=== PATIENT | female | born 1950 | race African-American/Black ===

== ENCOUNTER 2018-05-27 05:36 | Observation (INO) | payer OTHER ==
[2018-05-27] MEDS: KCL 20 MEQ/100 mL IVPB 20 MEQ/100 ML BAG IV SCH ×3 (02:00→23:50)
--- OUTSIDE RECORDS SUMMARY | 2018-05-27 05:38 | XMS REPORT | Clinical Summary ---
:1950 Author Organization [facility] Address [address] [place] [address] Phone Care Team Providers Name Role Phone Unavailable Primary Care Provider Unavailable Allergies Active Allergy Reactions Severity Noted Date Comments Codeine Nausea And Vomiting 05/03/2018 Morphine Nausea And Vomiting 05/03/2018 Naloxone Nausea And Vomiting 05/03/2018 Opium Nausea And Vomiting 05/03/2018 Current Medications Prescription Sig. Disp. Refills Start Date End Date Status aspirin 81 MG EC tablet Take 81 mg by Active mouth daily. atenolol (TENORMIN) 100 MG Take 100 mg by Active tablet mouth daily. chlorthalidone (HYGROTON) Take 25 mg by Active 25 MG tablet mouth daily. Active Problems Not on file Encounters Date Type Specialty Care Team Description 05/08/2018 Hospital Encounter Chandler Doshi Encounter for MD Emre screening colonoscopy for [id number] patient (Primary Dx) 05/08/2018 Orders Only General Internal Medicine 05/08/2018 Anesthesia Event César Myrick AA 05/08/2018 Procedure Pass 05/08/2018 Surgery Chandler Doshi COLONOSCOPY MD Emre after 05/26/2017 Social History Tobacco Use Types Packs/Day Years Used Date Never Smoker Smokeless Tobacco: Never Used Alcohol Use Drinks/Week oz/Week Comments Yes occasional Sex Assigned at Date Recorded Not on file Last Filed Vital Signs Vital Sign Reading Time Taken Blood Pressure 175/76 05/08/2018 10:01 AM CDT Pulse 47 05/08/2018 10:01 AM CDT Temperature 36.8 C (98.2 F) 05/08/2018 10:01 AM CDT Respiratory Rate 12 05/08/2018 10:01 AM CDT Oxygen Saturation 100% 05/08/2018 10:01 AM CDT Inhaled Oxygen Concentration - - Weight 105.7 kg (233 lb) 05/08/2018 7:55 AM CDT Height 162.6 cm (5' 4") 05/08/2018 7:55 AM CDT Body Mass Index 39.99 05/08/2018 7:55 AM CDT Plan of Treatment Not on file Procedures Procedure Name Priority Date/Time Associated Diagnosis Comments COLONOSCOPY 05/08/2018 8:30 AM CDT Colon cancer screening after 05/26/2017 Results EKG-SCANNED (05/09/2018 3:40 PM)REPORT OF PROCEDURE - ENDOSCOPY URL (2017 8:58 AM)CBC with platelet count + automated diff (05/08/2018 8:03 AM) Component Value Ref Range WBC 5.6 4.0 - 10.0 K/L RBC 4.22 4.00 - 5.00 M/L Hemoglobin 12.5 12.0 - 15.0 GM/DL Hematocrit 36.7 36.0 - 45.0 % MCV 87.0 82.0 - 99.0 fL MCH 29.6 27.0 - 33.0 pg MCHC 34.1 32.0 - 36.0 GM/DL RDW 15.0 (H) 10.3 - 14.2 % Platelets 196 150 - 430 K/CU MM MPV 8.2 6.5 - 10.5 fL nRBC 0 0 - 0 /100 WBC % Neutros 64 % % Lymphs 27 % % Monos 5 % % Eos 3 % % Baso 0 % # Neutros 3.60 1.80 - 8.00 K/L # Lymphs 1.50 1.48 - 4.50 K/L # Monos 0.30 0.00 - 1.30 K/L # Eos 0.20 0.00 - 0.50 K/L # Baso 0.00 0.00 - 0.20 K/L Specimen Performing Laboratory Blood - Arm, Right [facility] [address] [place] [address] CBC with platelet count + automated diff (05/08/2018 8:03 AM) Specimen Performing Laboratory Blood Narrative The following orders were created for panel order CBC with platelet count + automated diff. Procedure Abnormality Status --------- ------ CBC with platelet count ...[[id number]]AbnormalFinal result Please view results for these tests on the individual orders. Basic Metabolic Panel (05/08/2018 8:03 AM) Component Value Ref Range Sodium 137 135 - 148 meq/L Potassium 4.3Comment: Specimen moderately hemolyzed 3.6 - 5.5 meq/L Chloride 100 98 - 106 meq/L CO2 25 20 - 29 meq/L BUN 14 10 - 26 mg/dL Creatinine 0.84Comment: Specimen moderately hemolyzed 0.50 - 1.20 mg/dL Glucose 98 70 - 110 mg/dL Calcium 10.0 8.5 - 10.5 mg/dL EGFR 82Comment: ESTIMATED GFR IS NOT ACCURATE mL/min/1.73 sq m CREATININE CLEARANCE IN PREDICTING GLOMERULAR FILTRATION RATE. ESTIMATED GFR IS NOT APPLICABLE FOR DIALYSIS PATIENTS. Specimen Performing Laboratory Blood - Arm, Right [facility] [address] [facility] [place] [address] after 05/26/2017
--- OUTSIDE RECORDS SUMMARY | 2018-05-27 05:38 | XMS REPORT ---
:1950 Author Organization [facility] Address [address] [place] [address] Care Team Providers Name Role Phone REGINE CUELLAR Unavailable Unavailable Problems This patient has no known problems. Allergies, Adverse Reactions, Alerts This patient has no known allergies or adverse reactions. Medications This patient has no known medications. Results Test Description Test Time Test Comments Text Results Atomic Results Result Comments BASIC METABOLIC PANEL 2018-05-08 08:35:00 Test Item Value Reference Range Comments SODIUM (BEAKER) (test 137 meq/L 135-148 upmq=488) POTASSIUM (BEAKER) (test 4.3 meq/L 3.6-5.5 Specimen moderately uisr=555) hemolyzed CHLORIDE (BEAKER) (test 100 meq/L 98-106 bzcr=161) CO2 (BEAKER) (test jctf=983) 25 meq/L 20-29 BLOOD UREA NITROGEN (BEAKER) 14 mg/dL 10-26 (test qveh=352) CREATININE (BEAKER) (test 0.84 mg/dL 0.50-1.20 Specimen moderately sdzv=513) hemolyzed GLUCOSE RANDOM (BEAKER) 98 mg/dL 70-110 (test xjqs=558) CALCIUM (BEAKER) (test 10.0 mg/dL 8.5-10.5 prum=201) EGFR (BEAKER) (test 82 mL/min/1.73 sq m ESTIMATED GFR IS NOT ndby=2812) ACCURATE CREATININE CLEARANCE IN PREDICTING GLOMERULAR FILTRATION RATE. ESTIMATED GFR IS NOT APPLICABLE FOR DIALYSIS PATIENTS. CBC W/PLT COUNT & AUTO [id number] 08:10:00 Test Item Value Reference Range Comments WHITE BLOOD CELL COUNT (BEAKER) (test cyzc=794) 5.6 K/ L 4.0-10.0 RED BLOOD CELL COUNT (BEAKER) (test rsse=019) 4.22 M/ L 4.00-5.00 HEMOGLOBIN (BEAKER) (test wfuj=656) 12.5 GM/DL 12.0-15.0 HEMATOCRIT (BEAKER) (test gddg=446) 36.7 % 36.0-45.0 MEAN CORPUSCULAR VOLUME (BEAKER) (test jflx=401) 87.0 fL 82.0-99.0 MEAN CORPUSCULAR HEMOGLOBIN (BEAKER) (test 29.6 pg 27.0-33.0 vmgu=502) MEAN CORPUSCULAR HEMOGLOBIN CONC (BEAKER) (test 34.1 GM/DL 32.0-36.0 xcrm=003) RED CELL DISTRIBUTION WIDTH (BEAKER) (test 15.0 % 10.3-14.2 ueqk=783) PLATELET COUNT (BEAKER) (test tkza=551) 196 K/CU MM 150-430 MEAN PLATELET VOLUME (BEAKER) (test rygv=994) 8.2 fL 6.5-10.5 NUCLEATED RED BLOOD CELLS (BEAKER) (test 0 /100 WBC 0-0 pokq=000) NEUTROPHILS RELATIVE PERCENT (BEAKER) (test 64 % esog=363) LYMPHOCYTES RELATIVE PERCENT (BEAKER) (test 27 % fijo=309) MONOCYTES RELATIVE PERCENT (BEAKER) (test 5 % gqgl=408) EOSINOPHILS RELATIVE PERCENT (BEAKER) (test 3 % httg=528) BASOPHILS RELATIVE PERCENT (BEAKER) (test 0 % vlsz=997) NEUTROPHILS ABSOLUTE COUNT (BEAKER) (test 3.60 K/ L 1.80-8.00 srhw=903) LYMPHOCYTES ABSOLUTE COUNT (BEAKER) (test 1.50 K/ L 1.48-4.50 wllb=001) MONOCYTES ABSOLUTE COUNT (BEAKER) (test 0.30 K/ L 0.00-1.30 kona=226) EOSINOPHILS ABSOLUTE COUNT (BEAKER) (test 0.20 K/ L 0.00-0.50 prkt=503) BASOPHILS ABSOLUTE COUNT (BEAKER) (test 0.00 K/ L 0.00-0.20 isab=345)
[2018-05-27] MEDS ORDERED: FENTANYL CITR 100 MCG/2 ML ONE ×2 (06:41→10:14)
[2018-05-27] MEDS ORDERED: ONDANSETRON 4 MG/2 ML VIAL ONE ×2 (06:41→11:36)
[2018-05-27 06:42] LABS: Absolute Lymphocytes (CBC) 1.5 K/uL (0.7-4.9); Absolute Monocytes 0.4 K/uL (0.1-1.3); Absolute Neutrophil 5.9 K/uL (1.8-8.0); Basophils % 0.2 % (0-1.3); Eosinophils % 1.1 % (0-4.4); Hematocrit 35.4 % (36.0-45.0); Lymphocytes % 18.9 % (15.3-44.8); MCV 87.1 fL (80-100); MPV 8.2 fL (7.6-11.3); Monocytes % 4.5 % (3.3-12.3); RBC Red Blood Cell Count 4.07 M/uL (3.86-4.86)
[2018-05-27 06:47] LABS: Protime INR 1.01
[2018-05-27 07:10] LABS: Albumin 3.3 g/dL (3.4-5.0); Bilirubin Direct 0.1 mg/dL (0-0.2); Bilirubin Total 0.5 mg/dL (0.2-1.0); Protein, Total 7.8 g/dL (6.4-8.2)
[2018-05-27 07:13] LABS: Potassium 2.8 mmol/L (3.5-5.1)
[2018-05-27 07:24] LABS: CKMB Creatine Kinase MB < 1.0 ng/mL (0.3-3.6); Creatine Phosphokinase 41 U/L (26-192); Magnesium 1.7 mg/dL (1.8-2.4); NT PRO-BNP 112 pg/mL (<125); Troponin (Emerg Dept Use Only) < 0.02 ng/mL (0.0-0.045)
--- NOTE | 2018-05-27 07:40 | RAD REPORT ---
EXAM DESCRIPTION: CT - Abdomen Pelvis W Contrast - 05/27/2018 7:24 am CLINICAL HISTORY: EPIGASTRIC PAIN<Reason For Exam>EPIGASTRIC PAIN COMPARISON: Chest Single View dated 05/27/2018<Comparisons> TECHNIQUE: Biphasic, helical CT imaging of the abdomen and pelvis was performed following 100 ml non -ionic IV contrast. Oral contrast was given. All CT scans are performed using dose optimization technique as appropriate and may include automated exposure control or mA/KV adjustment according to patient size. FINDINGS: No focal mass or consolidation. Lung markings are mildly prominent and could be minimal ed nisha or infiltrate. There is cardiomegaly without pericardial thickening or effusion. The liver, spleen, and pancreas show no suspicious findings. Gallbladder and biliary tree are also wi thout suspicious finding. Gallstones can be occult on CT imaging. Symmetric renal function is seen with no hydronephrosis or suspicious renal mass. No pyelonephritis o r suspicious renal parenchymal process. Patient has bilateral renal cysts. Largest on the right measu res 4.4 cm. Largest on the left measures 3.1 cm. Urinary bladder is only partially filled. No bladder calculus. Duarte do not appear thickened or edematous. Numerous phleboliths are seen along the pelvic floor. Uterus is absent. Ovaries are absent or atrophic. No adnexal mass. No abnormal thickening or masslike density at the vaginal cuff. Food and fluid filled but do not dilate the stomach. No gastric wall thickening or mass. No dilated l arge or small bowel loops. No appendicitis findings. No free air, free fluid or inflammatory stranding. No mass or bulky lymphadenopathy. No omental thic kening. Small fat filled inguinal hernias are present. There is a small fat only umbilical hernia wit h the neck as wide as the maximum diameter of the hernia. No adrenal abnormality. No suspicious bony findings. IMPRESSION: Food and fluid filled the stomach but no gastric wall thickening or mass. No pancreatiti s or other acute upper abdominal finding to explain epigastric pain pattern. Gallbladder and biliary tree within normal limits. Gallstones can be occult on CT imaging. Additional nonacute findings detailed in the body of the report.
[2018-05-27] MEDS ORDERED: MAGNESIUM SULFATE 1 gm IVPB 1 GM/100 ML BAG IV ONE (07:43)
[2018-05-27] MEDS ORDERED: KCL 20 MEQ/100 mL IVPB 20 MEQ/100 ML BAG IV ONE ×2 (07:43→11:17)
[2018-05-27] MEDS ORDERED: NA CHLORIDE 0.9% 500 ML ONE (07:48)
--- NOTE | 2018-05-27 08:10 | RAD REPORT ---
EXAM DESCRIPTION: RAD - Chest Single View - 05/27/2018 6:54 am CLINICAL HISTORY: epigastric pain<Reason For Exam>epigastric pain COMPARISON: Abdomen Pelvis W Contrast dated 05/27/2018<Comparisons> TECHNIQUE: AP portable chest image was obtained 0648 hours . FINDINGS: Lung volumes are low. Large body habitus and portable technique accentuate lower lung fiel ds. No focal consolidation identifiable. Lung base assessment is limited but no focal infiltrate susp ected. Cardiomegaly is present without vascular engorgement. No significant failure or volume overloa d suspected. No pneumothorax or large pleural effusion. No gross bony abnormality seen. No acute aort ic findings suspected. IMPRESSION: Cardiomegaly without vascular engorgement. No significant failure or volume overload. Prominent markings in each lung base probably the affects of portable technique and large body habitu s. Significant infiltrate is doubtful.
[2018-05-27 08:56] LABS: Urine Blood NEGATIVE (NEG); Urine Glucose NEGATIVE (NEG); Urine Protein NEGATIVE (NEG)
[2018-05-27 08:58] LABS: Urine Bacteria NONE SEEN /HPF (<20); Urine Culture Reflex Order NOT NEEDED; Urine RBC <5 /HPF (NONE SEEN)
[2018-05-27] MEDS ORDERED: FAMOTIDINE 20 MG/2 ML VIAL IV ONE (09:27)
--- NOTE | 2018-05-27 09:36 | EDPHYS ---
Physician Documentation [facility] Name: Misa Claros Age: 67 yrs Sex: Female : 1950 Arrival Date: 05/27/2018 Time: 05:43 Bed 5 Private MD: Mateo Chavez V ED Physician Aram Landers HPI: 05/27 07:00 This 67 yrs old Black Female presents to ER via Wheelchair with complaints of Abdominal pm1 Pain. 07:00 The patient presents with abdominal pain in the epigastric area. Onset: The pm1 symptoms/episode began/occurred this morning. The symptoms do not radiate. Associated signs and symptoms: Pertinent positives: nausea, Pertinent negatives: chest pain, diarrhea, fever, shortness of breath, vomiting. The symptoms are described as achy, constant. Modifying factors: The symptoms are alleviated by nothing, the symptoms are aggravated by nothing. Severity of pain: in the emergency department the pain is actually worse. The patient has not experienced similar symptoms in the past. The patient has been recently seen by a physician: colonoscopy 1-2 weeks ago and told that she has bradycardia. Historical: - Allergies: 05:50 Codeine; cc3 05:50 Morphine; cc3 - Home Meds: 05:50 chlorthalidone 25 mg Oral tab 1 tab once daily [Active]; amlodipine 5 mg tab 1 tab once cc3 daily [Active]; atenolol 100 mg Oral tab 1 tab once daily [Active]; aspirin 81 mg tab Oral TbEC 1 tab once daily [Active]; - PMHx: 05:50 Hypertension; uterine cancer; diagnosed a year ago; cc3 - Immunization history:: Adult Immunizations not up to date. - Social history:: Smoking status: Patient/guardian denies using tobacco, never smoked. - Ebola Screening: : No symptoms or risks identified at this time. ROS: 07:00 Constitutional: Negative for fever, chills, and weight loss, Eyes: Negative for injury, pm1 pain, redness, and discharge, ENT: Negative for injury, pain, and discharge, Neck: Negative for injury, pain, and swelling, Cardiovascular: Negative for chest pain, palpitations, and edema, Respiratory: Negative for shortness of breath, cough, wheezing, and pleuritic chest pain. 07:00 Back: Negative for injury and pain, : Negative for injury, bleeding, discharge, and swelling, MS/Extremity: Negative for injury and deformity, Skin: Negative for injury, rash, and discoloration, Neuro: Negative for headache, weakness, numbness, tingling, and seizure. 07:00 Abdomen/GI: Positive for abdominal pain, nausea, of the epigastric area, Negative for vomiting, diarrhea. Exam: 07:00 Constitutional: This is a well developed, well nourished patient who is awake, alert, pm1 and in no acute distress. Head/Face: Normocephalic, atraumatic. Eyes: Pupils equal round and reactive to light, extra-ocular motions intact. Lids and lashes normal. Conjunctiva and sclera are non-icteric and not injected. Cornea within normal limits. Periorbital areas with no swelling, redness, or edema. ENT: Nares patent. No nasal discharge, no septal abnormalities noted. Tympanic membranes are normal and external auditory canals are clear. Oropharynx with no redness, swelling, or masses, exudates, or evidence of obstruction, uvula midline. Mucous membranes moist. Neck: Trachea midline, no thyromegaly or masses palpated, and no cervical lymphadenopathy. Supple, full range of motion without nuchal rigidity, or vertebral point tenderness. No Meningismus. 07:00 Respiratory: Lungs have equal breath sounds bilaterally, clear to auscultation and percussion. No rales, rhonchi or wheezes noted. No increased work of breathing, no retractions or nasal flaring. 07:00 Back: No spinal tenderness. No costovertebral tenderness. Full range of motion. Skin: Warm, dry with normal turgor. Normal color with no rashes, no lesions, and no evidence of cellulitis. MS/ Extremity: Pulses equal, no cyanosis. Neurovascular intact. Full, normal range of motion. 07:00 Chest/axilla: Inspection: normal, Palpation: is normal. 07:00 Cardiovascular: Rate: bradycardic, Rhythm: irregular, Pulses: no pulse deficits are appreciated, Heart sounds: normal, normal S1and S2, Edema: is not appreciated. 07:00 ECG was reviewed by the Attending Physician. bigeminy 07:00 Abdomen/GI: Inspection: abdomen appears normal, Bowel sounds: normal, Palpation: soft, moderate abdominal tenderness, in the epigastric area, mass, is not appreciated, rebound tenderness, is not appreciated. 07:00 Neuro: Orientation: is normal, Motor: is normal. Vital Signs: 05:56 BP 162 / 66; Pulse 47; Resp 16 S; Temp 96.9(TE); Pulse Ox 97% on R/A; Weight 106.59 kg; cc3 Height 5 ft. 4 in. (162.56 cm); Pain 10/10; 06:45 BP 130 / 66; Pulse 48; Resp 15 S; Pulse Ox 97% on R/A; cc3 07:06 BP 135 / 60; Pulse 40; Resp 19; Pulse Ox 96% ; sv 07:40 Pulse 74 MON; Resp 19; Pulse Ox 97% ; sv 08:23 BP 143 / 70; Pulse 48 MON; Resp 19; Pulse Ox 97% ; sv 09:19 BP 156 / 79; Pulse 61; Resp 18; Pulse Ox 96% on R/A; dh3 10:07 BP 163 / 69; Pulse 59; Resp 16; Pulse Ox 96% on R/A; sv 10:55 BP 144 / 74; Pulse 48 MON; Resp 14; Pulse Ox 96% ; sv 05:56 Body Mass Index 40.34 (106.59 kg, 162.56 cm) cc3 07:40 Normal Sinus Rhythm sv 08:23 Sinus bradycardia sv 10:55 Sinus bradycardia sv 07:40 Trigeminy sv MDM: 06:05 Patient medically screened. pm1 09:34 Data reviewed: vital signs. Data interpreted: Pulse oximetry: on room air is 96 %. pm1 Interpretation: normal. Counseling: I had a detailed discussion with the patient and/or guardian regarding: the historical points, exam findings, and any diagnostic results supporting the discharge/admit diagnosis, lab results, radiology results, the need for further work-up and treatment in the hospital. 10:19 Physician consultation: Mateo Chavez MD was contacted at 10:19, regarding admission, pm1 patient's condition, in the emergency department to see patient at 10:19. 10:27 Physician consultation: Mateo Chavez MD would like consultation with Dr. Lima, would pm1 like further tests performed, Repeat ECG, would like medications started, Antibiotics - Cipro \T\ Flagyl, Continue potassium replacement IV 50-60 mEq total. 11:12 Physician consultation: Jah Lima MD was called at 11:05, was contacted at 11:05, pm1 regarding consult, patient's condition, and will see patient later today, Would like cardiology consult and requests NPO now.. 11:44 ED course: Repeat ECG: sinus rhythm with first degree block, 60bpm. Resolution of PVCs, pm1 trigeminy with electrolyte replacement. 05/27 06:04 Order name: Amylase, Serum; Complete Time: 07:14 pm1 05/27 06:04 Order name: Basic Metabolic Panel; Complete Time: 07:14 pm1 05/27 06:04 Order name: CBC with Diff; Complete Time: 07:13 pm1 05/27 06:04 Order name: Creatinine for Radiology; Complete Time: 07:13 pm1 05/27 06:04 Order name: Hepatic Function; Complete Time: 07:14 pm1 05/27 06:04 Order name: Lipase; Complete Time: 07:14 pm1 05/27 06:04 Order name: Urine Microscopic Only; Complete Time: 09:03 pm1 05/27 06:20 Order name: Ckmb; Complete Time: 07:32 pm1 05/27 06:20 Order name: CPK; Complete Time: 07:32 pm1 05/27 06:20 Order name: Magnesium; Complete Time: 07:32 pm1 05/27 06:20 Order name: NT PRO-BNP; Complete Time: 07:32 pm1 05/27 06:20 Order name: PT-INR; Complete Time: 07:13 pm1 05/27 06:20 Order name: Ptt, Activated; Complete Time: 07:13 pm1 05/27 06:20 Order name: Troponin (emerg Dept Use Only); Complete Time: 07:32 pm1 05/27 06:20 Order name: XRAY Chest (1 view); Complete Time: 08:38 pm1 05/27 06:20 Order name: EKG; Complete Time: 06:21 pm1 05/27 06:22 Order name: CT Abd/Pelvis - W/Contrast: IV contrast only; Complete Time: 08:38 pm1 05/27 08:41 Order name: Urine Dipstick--Ancillary (enter results); Complete Time: 09:03 em1 05/27 09:05 Order name: US Abdomen Limited; Complete Time: 17:11 pm1 05/27 10:32 Order name: EKG; Complete Time: 10:33 pm1 05/27 06:04 Order name: IV Saline Lock; Complete Time: 06:32 pm1 05/27 06:04 Order name: Labs collected and sent; Complete Time: 06:32 pm1 05/27 06:04 Order name: Urine Dipstick-Ancillary (obtain specimen); Complete Time: 08:40 pm1 05/27 06:20 Order name: Cardiac monitoring; Complete Time: 06:41 pm1 05/27 06:20 Order name: EKG - Nurse/Tech; Complete Time: 06:41 pm1 05/27 06:20 Order name: O2 Per Protocol; Complete Time: 06:32 pm1 05/27 06:20 Order name: O2 Sat Monitoring; Complete Time: 06:32 pm1 05/27 11:44 Order name: EKG - Nurse/Tech; Complete Time: 11:46 pm1 Administered Medications: 06:35 Drug: fentaNYL (PF) 25 mcg Route: IVP; Site: right forearm; cc3 07:16 Follow up: Response: No adverse reaction sv 06:40 Drug: Zofran 4 mg Route: IVP; Site: right forearm; cc3 07:17 Follow up: Response: No adverse reaction sv 07:43 Drug: Magnesium Sulfate 1 grams Route: IVPB; Infused Over: 1 hrs; Site: right ss antecubital; 09:45 Follow up: Response: No adverse reaction; IV Status: Completed infusion; IV Intake: sv 100ml 08:51 Drug: Potassium Chloride 20 mEq Route: IV; Rate: calculated rate; Site: right forearm; sv 10:50 Follow up: Response: No adverse reaction; IV Status: Completed infusion; IV Intake: sv 100ml 09:29 Drug: Pepcid 20 mg Route: IVP; Site: right forearm; sv 10:07 Follow up: Response: No adverse reaction sv 10:12 Drug: fentaNYL (PF) 25 mcg Route: IVP; Site: right forearm; sv 10:30 Follow up: Response: No adverse reaction sv 11:18 Drug: Potassium Chloride 20 mEq Route: IV; Rate: calculated rate; Site: right forearm; sv 11:29 Follow up: Response: No adverse reaction; IV Status: Infusion continued upon admission sv 11:28 Drug: Flagyl 500 mg Volume: 100 ml; Route: IVPB; Rate: 200 ml/hr; Infused Over: 30 sv mins; Site: right forearm; 11:30 Follow up: Response: No adverse reaction; IV Status: Infusion continued upon admission sv 11:30 Not Given (given to Eli NICOLE on 2nd floor and informed she needs to give it after the sv Flagyl is done): Cipro 400 mg 200 ml IVPB once over 60 mins 11:40 Drug: Zofran 4 mg Route: IVP; Site: right forearm; sv 11:46 Follow up: Response: No adverse reaction sv Disposition: 05/27/18 09:35 Hospitalization ordered by Mateo Chavez for Observation. Preliminary diagnosis are Cholelithiasis, Bradycardia, unspecified, Other abnormalities of heart beat - trigeminy, Hypokalemia. - Bed requested for Telemetry/MedSurg (observation). - Status is Observation. sv - Condition is Stable. - Problem is new. - Symptoms have improved. UTI on Admission? No Signatures: Dispatcher [employer] EDMS Pat Jay RN RN sv Alvin Camargo em1 Gisella Rubio RN RN Kye Jane, [employer] pm1 Vielka Mitchell cc3 Corrections: (The following items were deleted from the chart) 10:22 09:35 Hospitalization Ordered by Mateo Chavez MD for Observation. Preliminary diagnosis pm1 is Bradycardia, unspecified; Epigastric pain. Bed requested for Telemetry/MedSurg (observation). Status is Observation. Condition is Stable. Problem is new. Symptoms have improved. UTI on Admission? No. pm1 10:28 10:22 05/27/2018 09:35 Hospitalization Ordered by Mateo Chavez MD for Observation. pm1 Preliminary diagnosis is Bradycardia, unspecified; Cholelithiasis; Other abnormalities of heart beat - trigeminy. Bed requested for Telemetry/MedSurg (observation). Status is Observation. Condition is Stable. Problem is new. Symptoms have improved. UTI on Admission? No. pm1 10:29 10:28 05/27/2018 09:35 Hospitalization Ordered by Mateo Chavez MD for Observation. pm1 Preliminary diagnosis is Bradycardia, unspecified; Cholelithiasis; Other abnormalities of heart beat - trigeminy; Hypokalemia. Bed requested for Telemetry/MedSurg (observation). Status is Observation. Condition is Stable. Problem is new. Symptoms have improved. UTI on Admission? No. pm1 10:55 10:29 05/27/2018 09:35 Hospitalization Ordered by Mateo Chavez MD for Observation. em1 Preliminary diagnosis is CholelithiasisBradycardia, unspecified; Other abnormalities of heart beat - trigeminy; Hypokalemia. Bed requested for Telemetry/MedSurg (observation). Status is Observation. Condition is Stable. Problem is new. Symptoms have improved. UTI on Admission? No. pm1 11:46 10:55 05/27/2018 09:35 Hospitalization Ordered by Mateo Chavez MD for Observation. sv Preliminary diagnosis is CholelithiasisBradycardia, unspecified; Other abnormalities of heart beat - trigeminy; Hypokalemia. Bed requested for Telemetry/MedSurg (observation). Status is Observation. Condition is Stable. Problem is new. Symptoms have improved. UTI on Admission? No. em1
--- NOTE | 2018-05-27 09:36 | ER ---
Nurse's Notes [facility] Name: Misa Claros Age: 67 yrs Sex: Female : 1950 Arrival Date: 05/27/2018 Time: 05:43 Bed 5 Private MD: Mateo Chavez V Diagnosis: Bradycardia, unspecified;Cholelithiasis;Other abnormalities of heart beat-trigeminy;Hypokalemia Presentation: 05/27 05:56 Presenting complaint: Patient states: abdominal pain particularly on the epigastric cc3 area since a couple of hours ago. Transition of care: patient was not received from another setting of care. Onset of symptoms was May 27, 2018. Risk Assessment: Do you want to hurt yourself or someone else? Patient reports no desire to harm self or others. Initial Sepsis Screen: Does the patient meet any 2 criteria? No. Patient's initial sepsis screen is negative. Does the patient have a suspected source of infection? No. Patient's initial sepsis screen is negative. Care prior to arrival: None. 05:56 Method Of Arrival: Wheelchair cc3 05:56 Acuity: VINOD 3 cc3 Triage Assessment: 05:56 General: Appears uncomfortable, Behavior is calm, cooperative, appropriate for age. cc3 Pain: Complains of pain in abdomen mostly in the epigastric area Pain currently is 10 out of 10 on a pain scale. EENT: No signs and/or symptoms were reported regarding the EENT system. Neuro: Level of Consciousness is awake, alert, obeys commands, Oriented to person, place, time, situation, Appropriate for age. Cardiovascular: Denies chest pain. Respiratory: Airway is patent Respiratory effort is even, unlabored, Respiratory pattern is regular, symmetrical. GI: Reports upper abdominal pain, since a couple of hours this morning. GI: Abdomen is round distended. : No signs and/or symptoms were reported regarding the genitourinary system. Derm: No signs and/or symptoms reported regarding the dermatologic system. Musculoskeletal: No signs and/or symptoms reported regarding the musculoskeletal system. Historical: - Allergies: 05:50 Codeine; cc3 05:50 Morphine; cc3 - Home Meds: 05:50 chlorthalidone 25 mg Oral tab 1 tab once daily [Active]; amlodipine 5 mg tab 1 tab once cc3 daily [Active]; atenolol 100 mg Oral tab 1 tab once daily [Active]; aspirin 81 mg tab Oral TbEC 1 tab once daily [Active]; - PMHx: 05:50 Hypertension; uterine cancer; diagnosed a year ago; cc3 - Immunization history:: Adult Immunizations not up to date. - Social history:: Smoking status: Patient/guardian denies using tobacco, never smoked. - Ebola Screening: : No symptoms or risks identified at this time. Screenin:56 Abuse screen: Denies threats or abuse. Denies injuries from another. Nutritional cc3 screening: No deficits noted. Tuberculosis screening: No symptoms or risk factors identified. Fall Risk Ambulatory Aid- None/Bed Rest/Nurse Assist (0 pts). Gait- Normal/Bed Rest/Wheelchair (0 pts) Mental Status- Oriented to own ability (0 pts). Assessment: 05:56 General: Appears uncomfortable, Behavior is calm, cooperative, appropriate for age. cc3 Pain: Complains of pain in upper abdomen particularly in the epigastric area Pain currently is 10 out of 10 on a pain scale. Neuro: Level of Consciousness is awake, alert, obeys commands, Oriented to person, place, time, situation, Appropriate for age. Cardiovascular: Denies chest pain. Respiratory: Airway is patent Respiratory effort is even, unlabored, Respiratory pattern is regular, symmetrical. GI: Reports upper abdominal pain, nausea, since couple of hours ago this morning. : No signs and/or symptoms were reported regarding the genitourinary system. EENT: No signs and/or symptoms were reported regarding the EENT system. Derm: No signs and/or symptoms reported regarding the dermatologic system. Musculoskeletal: No signs and/or symptoms reported regarding the musculoskeletal system. 06:50 Reassessment: Patient appears in no apparent distress at this time. Patient and/or cc3 family updated on plan of care and expected duration. Pain level reassessed. Patient is alert, oriented x 3, equal unlabored respirations, skin warm/dry/pink. chest xray done as ordered. 07:40 Reassessment: Patient appears in no apparent distress at this time. Patient and/or sv family updated on plan of care and expected duration. Pain level reassessed. Patient is alert, oriented x 3, equal unlabored respirations, skin warm/dry/pink. 08:52 Reassessment: Patient appears in no apparent distress at this time. Patient and/or sv family updated on plan of care and expected duration. Pain level reassessed. Patient is alert, oriented x 3, equal unlabored respirations, skin warm/dry/pink. 09:29 Reassessment: Patient appears in no apparent distress at this time. Patient and/or sv family updated on plan of care and expected duration. Pain level reassessed. Patient is alert, oriented x 3, equal unlabored respirations, skin warm/dry/pink. 09:50 Reassessment: US at the bedside. sv 10:19 Reassessment: Dr Chavez at the bedside. sv Vital Signs: 05:56 BP 162 / 66; Pulse 47; Resp 16 S; Temp 96.9(TE); Pulse Ox 97% on R/A; Weight 106.59 kg; cc3 Height 5 ft. 4 in. (162.56 cm); Pain 10/10; 06:45 BP 130 / 66; Pulse 48; Resp 15 S; Pulse Ox 97% on R/A; cc3 07:06 BP 135 / 60; Pulse 40; Resp 19; Pulse Ox 96% ; sv 07:40 Pulse 74 MON; Resp 19; Pulse Ox 97% ; sv 08:23 BP 143 / 70; Pulse 48 MON; Resp 19; Pulse Ox 97% ; sv 09:19 BP 156 / 79; Pulse 61; Resp 18; Pulse Ox 96% on R/A; dh3 10:07 BP 163 / 69; Pulse 59; Resp 16; Pulse Ox 96% on R/A; sv 10:55 BP 144 / 74; Pulse 48 MON; Resp 14; Pulse Ox 96% ; sv 05:56 Body Mass Index 40.34 (106.59 kg, 162.56 cm) cc3 07:40 Normal Sinus Rhythm sv 08:23 Sinus bradycardia sv 10:55 Sinus bradycardia sv 07:40 Trigeminy sv ED Course: 05:43 Patient arrived in ED. ds1 05:44 Mateo Chavez MD is Private Physician. ds1 05:56 Vielka Mitchell is Primary Nurse. cc3 05:56 Arm band placed on left wrist. cc3 05:56 Patient has correct armband on for positive identification. Bed in low position. Call cc3 light in reach. Side rails up X 1. Adult w/ patient. 06:01 Triage completed. cc3 06:04 Kye Jane NP is PHCP. pm1 06:04 Aram Landers MD is Attending Physician. pm1 06:25 Inserted saline lock: 22 gauge in right forearm, using aseptic technique. Blood cc3 collected. inserted by COREY Grimm. 06:52 XRAY Chest (1 view) In Process Unspecified. EDMS 06:59 Report given to COREY Stewart for continuity of care. cc3 07:03 Pat Jay RN is Primary Nurse. sv 07:[address] via stretcher. sv 07:22 CT completed. Patient tolerated procedure well. Patient moved to CT via stretcher. sj Patient moved back from CT. 07:23 CT Abd/Pelvis - W/Contrast: IV contrast only In Process Unspecified. EDMS 09:35 Mateo Chavez MD is Hospitalizing Provider. pm1 11:11 US Abdomen Limited In Process Unspecified. EDMS 11:11 Ultrasound completed. Patient tolerated well. Note: us done bedside in er. lc3 11:22 No provider procedures requiring assistance completed. Patient admitted, IV remains in sv place. intact. 11:45 EKG done, by ED staff, reviewed by Kye Jane NP. sv Administered Medications: 06:35 Drug: fentaNYL (PF) 25 mcg Route: IVP; Site: right forearm; cc3 07:16 Follow up: Response: No adverse reaction sv 06:40 Drug: Zofran 4 mg Route: IVP; Site: right forearm; cc3 07:17 Follow up: Response: No adverse reaction sv 07:43 Drug: Magnesium Sulfate 1 grams Route: IVPB; Infused Over: 1 hrs; Site: right ss antecubital; 09:45 Follow up: Response: No adverse reaction; IV Status: Completed infusion; IV Intake: sv 100ml 08:51 Drug: Potassium Chloride 20 mEq Route: IV; Rate: calculated rate; Site: right forearm; sv 10:50 Follow up: Response: No adverse reaction; IV Status: Completed infusion; IV Intake: sv 100ml 09:29 Drug: Pepcid 20 mg Route: IVP; Site: right forearm; sv 10:07 Follow up: Response: No adverse reaction sv 10:12 Drug: fentaNYL (PF) 25 mcg Route: IVP; Site: right forearm; sv 10:30 Follow up: Response: No adverse reaction sv 11:18 Drug: Potassium Chloride 20 mEq Route: IV; Rate: calculated rate; Site: right forearm; sv 11:29 Follow up: Response: No adverse reaction; IV Status: Infusion continued upon admission sv 11:28 Drug: Flagyl 500 mg Volume: 100 ml; Route: IVPB; Rate: 200 ml/hr; Infused Over: 30 sv mins; Site: right forearm; 11:30 Follow up: Response: No adverse reaction; IV Status: Infusion continued upon admission sv 11:30 Not Given (given to Eli NICOLE on 2nd floor and informed she needs to give it after the sv Flagyl is done): Cipro 400 mg 200 ml IVPB once over 60 mins 11:40 Drug: Zofran 4 mg Route: IVP; Site: right forearm; sv 11:46 Follow up: Response: No adverse reaction sv Intake: 09:45 IV: 100ml; Total: 100ml. sv 10:50 IV: 100ml; Total: 200ml. sv Output: 11:35 Gastric: 550ml (Emesis); Total: 550ml. sv Outcome: 09:35 Decision to Hospitalize by Provider. pm1 11:22 Admitted to Tele accompanied by tech, family with patient, via wheelchair, room 211, sv with chart, Report called to Eli NICOLE 11:22 Condition: stable 11:22 Instructed on the need for admit. 11:46 Patient left the ED. sv Signatures: Dispatcher [employer] Pat Bui RN RN sv Jones, Susan sj Sanford, Demi ds1 Gisella Rubio RN RN ss Cunningham, Laulita lc3 Marinas, Patrick, HISTOLOGY ASSISTANT HISTOLOGY ASSISTANT pm1 Katie Ridley 3 Vielka Mitchell 3
[2018-05-27] MEDS ORDERED: METRONIDAZOLE 500mg IVPB 500 MG/100 ML BAG IV ONE (11:29)
[2018-05-27] MEDS ORDERED: CIPROFLOXACIN 400mg IV 400 MG/200 ML BAG IV ONE (11:29)
--- NOTE | 2018-05-27 11:53 | RAD REPORT ---
EXAM DESCRIPTION: US - Abdomen Exam Limited - 05/27/2018 11:12 am CLINICAL HISTORY: EPIGASTRIC PAIN<Reason For Exam>EPIGASTRIC PAIN COMPARISON: Abdomen Pelvis W Contrast dated 05/27/2018 FINDINGS: Gallbladder size is normal. Multiple gallstones are present. No wall thickening or pericholecystic fl uid. Common bile duct is normal with no common duct stone identified. Patient indicates significant p ain with transducer pressure over the gallbladder. IMPRESSION: Multi stone cholelithiasis. No wall thickening or pericholecystic fluid. No biliary tree dilatation.
[2018-05-27 12:42] VITALS: BMI 40.3
[2018-05-27] MEDS ORDERED: FENTANYL CITR 100 MCG/2 ML IV PRN (12:43)
[2018-05-27] MEDS ORDERED: ONDANSETRON 4 MG/2 ML VIAL IV PRN (12:43)
[2018-05-27] MEDS ORDERED: KCL 20 MEQ/100 mL IVPB 20 MEQ/100 ML BAG IV SCH (12:43)
[2018-05-27] MEDS ORDERED: ACETAMINOPHEN 500 MG TAB PO PRN (12:43)
[2018-05-27] MEDS ORDERED: PNEUMOCOCCAL VACCINE 0.5 ML IMVAC ONE (16:00)
[2018-05-27 16:49] LABS: Magnesium 2.3 mg/dL (1.8-2.4); Potassium 3.2 mmol/L (3.5-5.1)
--- NOTE | 2018-05-27 17:39 | P.HP ---
Certification for Inpatient Patient admitted to: Inpatient With expected LOS: >2 Midnights Practitioner: I am a practitioner with admitting privileges, knowledge of patient current condition, hospital course, and medical plan of care. Services: Services provided to patient in accordance with Admission requirements found in Title 42 Section 412.3 of the Code of Federal Regulations Patient History Date of Service: 05/27/18 Reason for admission: ABDOMEN PAIN History of Present Illness: MS. SPARKS HAS HTN AND HISTORY OF UTERINE CANCER SP SURGERY AT [facility], COMES WITH A FEW HOURS OF PAIN IN EPIG REGION. PAIN IS LOCALIZED AND DOES NOT RADIATE. SHE HAD NO DIAPHORESIS OR CHEST PAIN. SHE IN ER HAD TRIGEMINY FROM HYPOKALEMIA AND HYPOMAGNESEMIA. SHE IS STABLE. Allergies codeine [Codeine] Allergy (Intermediate, Verified 05/27/18 12:45) VOMITING Home Medications: Aspirin [Aspirin EC 81 MG] 81 mg PO DAILY 10/20/16 Atenolol [Tenormin] 100 mg PO DAILY 10/20/16 Chlorthalidone [Hygroton 25mg Tab] 25 mg PO DAILY 10/20/16 Amlodipine Besylate [Norvasc] 5 mg PO DAILY 05/27/18 - Past Medical/Surgical History Has patient received pneumonia vaccine in the past: No Diabetic: No -: uterine cancer -: htn -: hysterectomy -: c section - Family History Mother -: Other (see notes) Notes: heart attack Father -: Other (see notes) Notes: heart attack - Social History Smoking Status: Never smoker Alcohol use: Yes CD- Drugs: No Caffeine use: Yes Place of Residence: Home Review of Systems 10-point ROS is otherwise unremarkable General: Weakness Gastrointestinal: Abdominal Pain (EPIG) Physical Examination - Vital Signs Temperature: 96.9 F Blood Pressure: 193/81 Pulse: 82 Respirations: 16 Pulse Ox (%): 97 - Physical Exam General: Alert, Mild distress HEENT: Atraumatic, PERRLA, Mucous membr. moist/pink, EOMI, Sclerae nonicteric Neck: Supple, 2+ carotid pulse no bruit, No LAD, Without JVD or thyroid abnormality Respiratory: Clear to auscultation bilaterally, Normal air movement Cardiovascular: Regular rate/rhythm, Normal S1 S2 Gastrointestinal: No rebound, Tenderness (EPIG AND RUQ TENDER. ) Musculoskeletal: No tenderness Integumentary: No rashes Neurological: Normal gait, Normal speech, Normal strength at 5/5 x4 extr, Normal tone, Normal affect Lymphatics: No axilla or inguinal lymphadenopathy - Studies Laboratory Data (last 24 hrs) 05/27/18 06:25: PT 11.9, INR 1.01, APTT 32.1 05/27/18 06:25: Magnesium 1.7 L 05/27/18 06:25: Creatinine 0.90 05/27/18 06:25: WBC 7.8, Hgb 12.2, Hct 35.4 L, Plt Count 179 05/27/18 06:25: Sodium 136, Potassium 2.8 L*, BUN 25 H, Creatinine 0.90, Glucose 152 H, Total Bilirubin 0.5, AST 12 L, ALT 12, Alkaline Phosphatase 53, Amylase 59, Lipase 61 L Assessment and Plan - Problems (Diagnosis) (1) Acute cholecystitis Current Visit: Yes Status: Acute Plan: CONSULTED IV ABX SURGERY IN AM POSSIBLE MEDICALLY CLEARED WITH MILD RISK EKG CHANGES ARE FROM ELECTROLYTE IMBALANCE HER K AND MG ARE LOW FROM CHLORTHALIDONE. SHE WILL NEED SPIRONOLACTONE INSTEAD I AM NOT SURE WHO GIVES HER THESE MEDS. SHE HAS NOT BEEN TO MY OFFICE SINCE END OF LAST YEAR. (2) Hypokalemia Current Visit: Yes Status: Acute Plan: REPLACE K ABOVE. (3) Hypomagnesemia Current Visit: Yes Status: Acute Plan: REPLACE MAG AND FU. (4) Ventricular trigeminy Current Visit: Yes Status: Acute (5) HTN (hypertension) Current Visit: Yes Status: Chronic Plan: WILL NEED STOP CHLORTHALIDONE ABOVE. Qualifiers: Hypertension type: essential hypertension Qualified Code(s): I10 - Essential (primary) hypertension - Advance Directives Does patient have a Living Will: No Does patient have a Durable POA for Healthcare: No
[2018-05-27] MEDS: CIPROFLOXACIN 400mg IV 400 MG/200 ML BAG IV SCH (18:03)
--- NOTE | 2018-05-27 18:10 | P.CNS ---
Date of Consult: 05/27/18 PC: I was asked to see this 67-year-old female in regards her right upper quadrant abdominal pain HPC: Patient woke up early this morning, and was having severe upper abdominal pain. Describes it as a cramping type sensation. Try to take over the counter medications make got no relief. Says she felt weak, so she came to the emergency room for evaluation treatment. PMH: Hypertension, no diabetes PSHx: Previous cancer of the uterus, treated with hysterectomy and postoperative chemo with 1 month of radiation SOC: Allergic to codeine SYS REVIEW: No cough, wheeze, shortness of breath. No chest pain or palpitations. No urinary complaints. Has been having regular bowel movements. O/E awake alert vital signs are stable, not in any distress at the moment. HEENT: Not jaundiced Chest: Chest movement equal bilateral ABD: Soft nontender no guarding rebound negative Hartley sign LOCO: Intact DATA: Initially when had hypokalemia, and low magnesium, repeat labs showed is almost back to normal. No evidence of any white cell count. CT scan was essentially normal apart from some renal cysts, and ultrasound is demonstrates stones with no surrounding fluid in the gallbladder. She does not have any ascites or any evidence of any bowel obstruction. IMPRESSION: Cholecystitis with biliary colic PLAN: The patient was admitted for stabilization of her electrolytes. Also for pain relief from biliary colic, which has resolved. She will ever labs checked in a.m.. I will give her clear liquids, but make her NPO at midnight. Dr. Chavez will be reviewing her in the morning. If she is asymptomatic, she might be discharged home and have surgery scheduled later as an elective procedure. She is happy with this decision as is her family.
[2018-05-27] MEDS: METRONIDAZOLE 500mg IVPB 500 MG/100 ML BAG IV SCH ×2 (18:13→23:33)
[2018-05-28] MEDS: KCL 20 MEQ/100 mL IVPB 20 MEQ/100 ML BAG IV SCH ×3 (01:39→09:00)
[2018-05-28] MEDS: METRONIDAZOLE 500mg IVPB 500 MG/100 ML BAG IV SCH ×3 (05:00→17:59)
[2018-05-28 05:09] LABS: Absolute Monocytes 0.2 K/uL (0.1-1.3); Basophils % 0.3 % (0-1.3); Eosinophils % 2.6 % (0-4.4); Hematocrit 36.7 % (36.0-45.0); Lymphocytes % 29.2 % (15.3-44.8); MCH 29.9 pg (27.0-35.0); MCV 87.9 fL (80-100); MPV 8.4 fL (7.6-11.3); Monocytes % 7.2 % (3.3-12.3); RBC Red Blood Cell Count 4.18 M/uL (3.86-4.86)
[2018-05-28 05:57] LABS: Albumin 3.5 g/dL (3.4-5.0); Bilirubin Direct 1.6 mg/dL (0-0.2); Bilirubin Total 2.5 mg/dL (0.2-1.0); Magnesium 2.1 mg/dL (1.8-2.4); Potassium 3.3 mmol/L (3.5-5.1); Protein, Total 8.3 g/dL (6.4-8.2)
--- NOTE | 2018-05-28 07:10 | EKG ---
Test Date: 2018-05-27 Test Time: 06:38:39 Community Engagement Leader: TATOG MEASUREMENT RESULTS: Intervals: Rate: 61 NC: 178 QRSD: 98 QT: 442 QTc: 444 [place]: P: NC: 178 QRS: 12 T: -47 INTERPRETIVE STATEMENTS: Sinus bradycardia with marked sinus arrhythmia with occasional premature ventricular complexes Inferior infarct, age undetermined Cannot rule out Anterior infarct, age undetermined T wave abnormality, consider lateral ischemia Abnormal ECG Compared to ECG 10/20/2016 12:00:14 Ventricular premature complex(es) now present T-wave abnormality now present Possible ischemia now present Myocardial infarct finding still present Electronically Signed On 05-28-18 07:09:29 CDT by David Dobson
--- NOTE | 2018-05-28 07:45 | EKG ---
Test Date: 2018-05-27 Test Time: 11:36:56 Dry Kiln Feeder: MEASUREMENT RESULTS: Intervals: Rate: 60 OH: 222 QRSD: 100 QT: 416 QTc: 416 [place]: P: 7 OH: 222 QRS: 3 T: -16 INTERPRETIVE STATEMENTS: Sinus rhythm with 1st degree AV block Possible Inferior infarct, age undetermined Cannot rule out Anterior infarct, age undetermined Abnormal ECG Compared to ECG 05/27/2018 06:38:39 First degree AV block now present Sinus bradycardia no longer present Ventricular premature complex(es) no longer present Electronically Signed On 05-28-18 07:44:39 CDT by Houston Harper
[2018-05-28] MEDS: CIPROFLOXACIN 400mg IV 400 MG/200 ML BAG IV SCH ×2 (08:35→21:14)
[2018-05-28] MEDS: AMLODIPINE 5 MG TAB PO SCH (08:35)
[2018-05-28] MEDS ORDERED: ATENOLOL 50 MG TAB PO SCH (09:00)
[2018-05-28] MEDS ORDERED: NA CHLORIDE 0.9% 0 ML ONE (11:19)
[2018-05-28] MEDS ORDERED: NA CHLORIDE 0.9% 1,000 ML ONE (11:20)
--- NOTE | 2018-05-28 12:51 | ECHO ---
HEIGHT: 5 ft 4 in WEIGHT: 235 lb 0 oz DATE OF STUDY: 05/28/[address]: David Dobson MD 2-DIMENSIONAL: YES M.MODE: YES DOPPLER: YES COLOR FLOW: YES TDS: NO PORTABLE: NO DEFINITY: NO BUBBLE STUDY: NO DIAGNOSIS: TRIGEMINY/BRADYCARDIA CARDIAC HISTORY: CATHERIZATION: NO SURGERY: NO PROSTHETIC VALVE: NO PACEMAKER: NO MEASUREMENTS (cm) DIASTOLIC (NORMALS) SYSTOLIC (NORMALS) IVSd 1.2 (0.6-1.2) LA Diam 3.7 (1.9-4.0) LVEF 77% LVIDd 4.6 (3.5-5.7) LVIDs 2.5 (2.0-3.5) %FS 46% LVPWd 1.3 (0.6-1.2) Ao Diam 2.6 (2.0-3.7) 2 DIMENSIONAL ASSESSMENT: RIGHT ATRIUM: NORMAL LEFT ATRIUM: NORMAL RIGHT VENTRICLE: NORMAL LEFT VENTRICLE: NORMAL TRICUSPID VALVE: NORMAL MITRAL VALVE: NORMAL PULMONIC VALVE: NORMAL AORTIC VALVE: NORMAL PERICARDIAL EFFUSION: NONE AORTIC ROOT: NORMAL LEFT VENTRICULAR WALL MOTION: NORMAL. DOPPLER/COLOR FLOW: MILD TRICUSPID REGURGITATION. COMMENTS: MILD TRICUSPID REGURGITATION- NORMAL RIGHT VENTRICULAR SYSTOLIC PRESSURE. NO WALL MOTION ABNORMALITY. NO EFFUSION. NORMAL LEFT VENTRICULAR SIZE AND FUNCTION. TECHNOLOGIST: HERSON BAINS [facility]
--- NOTE | 2018-05-28 12:56 | P.PN ---
Subjective Date of Service: 05/28/18 Chief Complaint: ABDOMEN PAIN Subjective: Improving (ONLY WHEN SHE DRINKS WATER.) Review of Systems 10-point ROS is otherwise unremarkable Physical Examination - Vital Signs Temperature: 97.0 F Blood Pressure: 167/67 Pulse: 82 Respirations: 18 Pulse Ox (%): 96 - Physical Exam General: Alert, Mild distress, Obese HEENT: Atraumatic, PERRLA, EOMI Neck: Supple, JVD not distended Respiratory: Clear to auscultation bilaterally, Normal air movement Cardiovascular: Regular rate/rhythm, Normal S1 S2 Gastrointestinal: Tenderness (RUQ AND EPIG.) Musculoskeletal: No tenderness Integumentary: No rashes Neurological: Normal speech, Normal tone, Normal affect Lymphatics: No axilla or inguinal lymphadenopathy - Studies Medications List Reviewed: Yes Assessment And Plan - Current Problems (Diagnosis) (1) Acute cholecystitis Current Visit: Yes Status: Acute Plan: CONSULTED IV ABX SURGERY IN AM POSSIBLE MEDICALLY CLEARED WITH MILD RISK EKG CHANGES ARE FROM ELECTROLYTE IMBALANCE HER K AND MG ARE LOW FROM CHLORTHALIDONE. SHE WILL NEED SPIRONOLACTONE INSTEAD I AM NOT SURE WHO GIVES HER THESE MEDS. SHE HAS NOT BEEN TO MY OFFICE SINCE END OF LAST YEAR. WE DON'T HAVE LOCAL GI DOCTOR. DR. MALLOY IS GOING TO DO SURGERY, DO CHOLANGIOGRAM SHE IS NOT MUCH IN DISTRESS AND LATER DO MRCP IF NEED. HE WILL GET GI MD IN [place] IF NEED. I CALLED HIM TODAY. (2) Hypokalemia Current Visit: Yes Status: Acute Plan: REPLACE K ABOVE. (3) Hypomagnesemia Current Visit: Yes Status: Acute Plan: REPLACE MAG AND FU. (4) Ventricular trigeminy Current Visit: Yes Status: Acute (5) HTN (hypertension) Current Visit: Yes Status: Chronic Plan: WILL NEED STOP CHLORTHALIDONE ABOVE. Qualifiers: Hypertension type: essential hypertension Qualified Code(s): I10 - Essential (primary) hypertension
[2018-05-28] MEDS: MEPERIDINE HCL 50 MG/ML AMP ONE ×2 (13:14→15:19)
[2018-05-28] MEDS ORDERED: PROPOFOL 200 MG/20 ML VIAL IV ONE (13:29)
[2018-05-28] MEDS ORDERED: FENTANYL CITR 100 MCG/2 ML ONE (13:30)
[2018-05-28] MEDS ORDERED: MIDAZOLAM HCL 2 MG/2 ML INJ ONE (13:30)
[2018-05-28] MEDS ORDERED: ONDANSETRON HCL 40 MG/20 ML VIAL ONE (13:30)
[2018-05-28] MEDS ORDERED: Ringers Lactate 1,000 ML IV ONE (13:33)
[2018-05-28] MEDS ORDERED: GLYCOPYRROLATE 0.2 MG/ML SYR ONE ×2 (14:11→14:48)
--- NOTE | 2018-05-28 14:28 | CON ---
Date of Consultation: 05/28/[address] Chavez's service on 05/27/2018. I saw the patient on 05/28/2018. Reason For Consultation: Cardiac clearance, bradycardia, and trigeminy. History Of Present Illness: Ms. Claros is a 67-year-old black woman who has a history of hypertensi on, urinary cancer. Was admitted with abdominal pain, right-sided. Was found to have cholelithiasis . Dr. Lima saw the patient and recommended outpatient surgery. She has no cardiac history. In J anuary of 2017, an EKG showed a heart rate of 50 with some PVCs. She was hypokalemic this time, kev ycardic with trigeminy. No symptoms. No chest pain. No shortness of breath. No nausea, vomiting, diaphoresis, PND, orthopnea, pedal edema. No syncope. She has ruled out for an HI. Her potassium w as 3.2. Glucose was high. Ultrasound of the gallbladder showed gallstones. CT of the abdomen was o therwise negative. She was slightly hypertensive now, but she had a pressure of 193/81. Past Medical History: As stated earlier. Allergies: INCLUDE CODEINE AND MORPHINE. Review of Systems: Negative. Social History: Negative. Family History: Negative. Medications: Include aspirin, chlorthalidone, Norvasc, and atenolol. Physical Examination: General: She is in no acute distress. Vital Signs: Noted. Slightly hypertensive. Sinus rolando noted. No arrhythmias now. HEENT: Negative. Neck: Supple with no bruit. Chest: Clear. Cardiac Exam: Revealed a regular rhythm and rate without any murmurs, gallops, or rubs. Abdomen: Benign. Extremities: Revealed no clubbing, cyanosis, or edema. Diagnostic Data: As stated earlier. Impression And Plan: Chronic bradycardia with PVCs. I think the PVCs may be related to hypokalemia. The bradycardia may be chronic and asymptomatic. Her blood pressure needs to be better controlled. Her potassium needs to be supplemented. I think we need to get a 2D echocardiogram to rule out any cardiomyopathy. I think if her echocardiogram is normal, she should be cleared for surgery for her gallstones whenever Dr. Lima is ready. I will discuss the case further with Dr. Chavez after the e chocardiogram is done. Her chest x-ray just showed cardiomegaly. DALTON/UNA Voice ID: [id number] Report ID: [id number]
[2018-05-28] MEDS ORDERED: NEOSTIGMINE 1 MG/ML -5 ML SYRINGE ONE (14:49)
--- NOTE | 2018-05-28 14:55 | P.PN ---
Date of Service: 05/28/18 S: Patient feels well today, still says he has mild abdominal pain. O: Vital signs remain stable, however has slight elevation of her LFTs today. A: Cholecystitis with cholelithiasis, possible choledocholithiasis P: I will take her to the operating room for laparoscopic cholecystectomy with intraoperative cholangiogram. The risks of this procedure have been discussed with the patient her family. There is a possibly the mobility that we may find a stone in her common bile duct. Should this occur we may have to transfer her to and other facility for an ERCP as we do not have GI available at this time. I believe that she is artery passed a stone, and this is a transient elevation of the enzymes. The risks of this procedure have been discussed. The possibility of bleeding, infection, injury to bile ducts blood vessels and intestines. The possible need for an open and/or further surgeries and procedures was discussed. She understands and wants us to proceed.
--- NOTE | 2018-05-28 14:59 | P.OP ---
Preoperative diagnosis: Cholecystitis with cholelithiasis, possible choledocholithiasis Postoperative diagnosis: Cholecystitis with cholelithiasis Primary procedure: Laparoscopic cholecystectomy Secondary procedure: Cholangiogram Anesthesia: General Estimated blood loss: Less than 10 cc Specimen: 1 gallbladder and contents Findings: Inflamed gallbladder Operative Technique: The patient brought the operating room placed supine on the table. After the induction of adequate general endotracheal anesthesia, the area of the abdomen was prepped with a DuraPrep solution, she was draped in usual aseptic manner. A subumbilical incision was made. This brought down through the skin and subcutaneous tissue. The Visiport was then used to enter the peritoneal cavity and created pneumoperitoneum to approximately 12 mm of mercury. Under direct vision a 5 mm trocar was placed in the upper midline, and 2 5s on the right lateral side. With the patient placed in reverse Trendelenburg and rolled to the left we could visualize right upper quadrant. We could see an acutely inflamed gallbladder with speckling on the serosa. There were serosal adhesions. The gallbladder was grasped as contents aspirated from the gallbladder. The omental adhesions were now taken off the serosal surface of the gallbladder. Another grasper was now placed down by Kalpana's pouch. Applying lateral traction we were able to expose the cystic duct and artery. Having obtained the critical view, a clip was placed over the vasculature. This was then divided with electro cautery. A clip was placed between the gallbladder and the cystic duct. An opening is made into the cystic duct through which we obtained a normal intraoperative cholangiogram. The cholangiocatheter was now removed from the cystic duct. Clips were placed on the distal portion of the cystic duct to secure it. The cystic duct was now fully transected. The gallbladder was now dissected free from the liver bed. It was interesting to note the med of edema that was surrounding particular the posterior surface of the gallbladder. This pus was now placed into an Endo- Catch and brought out through the umbilical trocar site. At this point the abdomen was inspected to ensure adequate hemostasis. The irrigating fluid was aspirated from the peritoneal cavity. Attention was then back towards the umbilical trocar site. This was approximated with a Endo Stitch and an absorbable suture. At this point the pneumoperitoneum was collapsed, this suture tied, and the trocars removed. At the end of procedure she was stable when sent to the recovery room. Needle sponge instrument count were correct. No drains were placed. Complications: None Transferred to: Recovery Room Condition: Good
[2018-05-28] MEDS ORDERED: HYDROCODONE/APAP 7.5/325 MG TAB PO PRN (15:07)
[2018-05-28] MEDS ORDERED: ONDANSETRON 4 MG/2 ML VIAL IV PRN (15:07)
--- NOTE | 2018-05-28 15:59 | RAD REPORT ---
EXAM DESCRIPTION: RAD - Cholangiogram Oper-Xray Or - 05/28/2018 3:42 pm FINDINGS: There were 6 static images submitted from fluoroscopic assisted intraoperative cholangiogr am. No duct stone identified. No suspicious stricture or mass identifiable. Contrast flows into the d uodenum. Small remnant cystic duct is identified. Fluoro time was 0.6 minutes. Cumulative dose 29.0 mGy.
[2018-05-28] MEDS ORDERED: KCL 20 MEQ/100 mL IVPB 20 MEQ/100 ML BAG IV SCH (17:28)
[2018-05-28 19:20] LABS: Magnesium 2.1 mg/dL (1.8-2.4); Potassium 3.6 mmol/L (3.5-5.1)
[2018-05-28] MEDS ORDERED: DIGOXIN 0.25 MG/ML AMP IV ONE (21:00)
[2018-05-28] MEDS: IRBESARTAN 150 MG TAB PO SCH (21:15)
[2018-05-29] MEDS: METRONIDAZOLE 500mg IVPB 500 MG/100 ML BAG IV SCH ×5 (00:51→23:37)
[2018-05-29] MEDS ORDERED: DIGOXIN 0.25 MG/ML AMP IV ONE (03:00)
[2018-05-29 05:37] LABS: Potassium 3.5 mmol/L (3.5-5.1)
[2018-05-29] MEDS: AMLODIPINE 5 MG TAB PO SCH (09:07)
[2018-05-29] MEDS: CIPROFLOXACIN 400mg IV 400 MG/200 ML BAG IV SCH ×2 (09:08→20:45)
--- NOTE | 2018-05-29 18:37 | P.PN ---
Subjective Date of Service: 05/29/18 Chief Complaint: ABDOMEN PAIN, HEART , A FIB NEW ONSET, BRADYCARDIA WITH B BLOCKERS Subjective: Improving (POST OP) Review of Systems 10-point ROS is otherwise unremarkable Gastrointestinal: Abdominal Pain (POST OP) Physical Examination - Vital Signs Temperature: 97.4 F Blood Pressure: 119/59 Pulse: 49 Respirations: 18 Pulse Ox (%): 97 - Physical Exam General: Mild distress HEENT: Atraumatic, PERRLA, EOMI Neck: Supple, JVD not distended Respiratory: Clear to auscultation bilaterally, Normal air movement Cardiovascular: Regular rate/rhythm, Normal S1 S2 Gastrointestinal: Tenderness (POST OP) Musculoskeletal: No tenderness Integumentary: No rashes Neurological: Normal speech, Normal tone, Normal affect Lymphatics: No axilla or inguinal lymphadenopathy - Studies Medications List Reviewed: Yes Assessment And Plan - Current Problems (Diagnosis) (1) Acute cholecystitis Onset Date: 05/28/18 Current Visit: Yes Status: Acute Plan: CONSULTED IV ABX SURGERY IN AM POSSIBLE MEDICALLY CLEARED WITH MILD RISK EKG CHANGES ARE FROM ELECTROLYTE IMBALANCE HER K AND MG ARE LOW FROM CHLORTHALIDONE. SHE WILL NEED SPIRONOLACTONE INSTEAD I AM NOT SURE WHO GIVES HER THESE MEDS. SHE HAS NOT BEEN TO MY OFFICE SINCE END OF LAST YEAR. WE DON'T HAVE LOCAL GI DOCTOR. DR. MALLOY IS GOING TO DO SURGERY, DO CHOLANGIOGRAM SHE IS NOT MUCH IN DISTRESS AND LATER DO MRCP IF NEED. HE WILL GET GI MD IN [place] IF NEED. I CALLED HIM TODAY. (2) Hypokalemia Onset Date: 05/28/18 Current Visit: Yes Status: Acute Plan: REPLACE K ABOVE. (3) Hypomagnesemia Onset Date: 05/28/18 Current Visit: Yes Status: Acute Plan: REPLACE MAG AND FU. (4) Ventricular trigeminy Onset Date: 05/28/18 Current Visit: Yes Status: Acute (5) HTN (hypertension) Onset Date: 05/28/18 Current Visit: Yes Status: Chronic Plan: WILL NEED STOP CHLORTHALIDONE ABOVE. Qualifiers: Hypertension type: essential hypertension Qualified Code(s): I10 - Essential (primary) hypertension (6) A-fib Current Visit: Yes Status: Acute Plan: NEW PATIENT IS HYPERSENSITVE TO B MOR SHE HAD HR DOWN TO 30 ON ATENOLOL NOW ON DIGOXIN BY DR HUI WILL START ON XARELTO IF SHE CONTINUES TO HAVE A FIB. LOVENOX ONCE. Qualifiers: Atrial fibrillation type: paroxysmal Qualified Code(s): I48.0 - Paroxysmal atrial fibrillation
[2018-05-29] MEDS: IRBESARTAN 150 MG TAB PO SCH (20:44)
[2018-05-29] MEDS: ENOXAPARIN 40 MG/0.4 ML SQ SCH (20:44)
[2018-05-30] MEDS: METRONIDAZOLE 500mg IVPB 500 MG/100 ML BAG IV SCH (05:34)
--- NOTE | 2018-05-30 08:32 | PN ---
Date of Progress Note: 05/29/2018 Ms. Claros was seen because of some trigeminy bradycardia, normal cardiac workup, underwent a lap ch olecystectomy yesterday and postoperatively went into atrial fibrillation, rate of about 113. No sym ptoms. I recommended given digoxin 0.5 mg x2 dosages. Today, she has been in normal rhythm. She is already taking p.o. I am hoping this is more of a transient episode. I would avoid using beta bloc kers on her because of her baseline bradycardia. She is asymptomatic with her palpitations. We will leave her on her present regimen for now. I would not recommend anticoagulation for now. DALTON/UNA Voice ID: [id number] Report ID: [id number]
[2018-05-30 09:21] VITALS: O2SAT 95
[2018-05-30] MEDS: AMLODIPINE 5 MG TAB PO SCH (09:27)
[2018-05-30] MEDS: CIPROFLOXACIN 400mg IV 400 MG/200 ML BAG IV SCH (09:27)
[2018-05-30 10:55] LABS: Albumin 3.2 g/dL (3.4-5.0); Bilirubin Direct 0.4 mg/dL (0-0.2); Magnesium 1.9 mg/dL (1.8-2.4); Potassium 3.2 mmol/L (3.5-5.1); Protein, Total 7.4 g/dL (6.4-8.2)
[2018-05-30] MEDS: metroNIDAZOLE 500 MG TABLET PO SCH ×2 (11:56→16:43)
[2018-05-30] MEDS: ENOXAPARIN 40 MG/0.4 ML SQ SCH (16:43)
[2018-05-30 17:08] VITALS: BP 135/70; TEMP 97.4
--- NOTE | 2018-05-30 17:45 | P.DS ---
Admission Date: 05/29/18 Discharge Date: 05/30/18 Disposition: ROUTINE DISCHARGE Discharge Condition: FAIR Reason for Admission: ABDOMEN PAIN, HEART , A FIB NEW ONSET, BRADYCARDIA WITH B BLOCKERS - Problems (1) Acute cholecystitis Onset Date: 05/28/18 Current Visit: Yes Status: Acute (2) Hypokalemia Onset Date: 05/28/18 Current Visit: Yes Status: Acute (3) Hypomagnesemia Onset Date: 05/28/18 Current Visit: Yes Status: Acute (4) Ventricular trigeminy Onset Date: 05/28/18 Current Visit: Yes Status: Acute (5) HTN (hypertension) Onset Date: 05/28/18 Current Visit: Yes Status: Chronic Qualifiers: Hypertension type: essential hypertension Qualified Code(s): I10 - Essential (primary) hypertension (6) A-fib Onset Date: 05/30/18 Current Visit: Yes Status: Acute Qualifiers: Atrial fibrillation type: paroxysmal Qualified Code(s): I48.0 - Paroxysmal atrial fibrillation Brief History of Present Illness: MS. SPARKS HAS HTN AND HISTORY OF UTERINE CANCER SP SURGERY AT [facility], COMES WITH A FEW HOURS OF PAIN IN EPIG REGION. PAIN IS LOCALIZED AND DOES NOT RADIATE. SHE HAD NO DIAPHORESIS OR CHEST PAIN. SHE IN ER HAD TRIGEMINY FROM HYPOKALEMIA AND HYPOMAGNESEMIA. SHE IS STABLE. MS. BURNS HAS DONE WELL. WE CHANGED MEDS TO CONTROL BP WITHOUT BRADYCARDIA. WITHOUTB MOR SHE HAD A FIB. DR. HUI GAVE DIGOXIN AND SHE IMPRORVE. SHE IS BACK INTO SINUS RHYTHM. SHE HAD CHOLECYSTECOMY AND DID WELL. HER LFT HAS IMPROVED. SHE IS STABLE FOR DC. Vital Signs/Physical Exam: Temp Pulse Resp BP Pulse Ox 97.4 F 65 18 135/70 96 05/30/18 16:00 05/30/18 16:00 05/30/18 16:00 05/30/18 16:00 05/30/18 16:00 Laboratory Data at Discharge: WBC 3.3 K/uL (4.3-10.9) L D 05/28/18 04:18 Hgb 12.5 g/dL (12.0-15.0) 05/28/18 04:18 Hct 36.7 % (36.0-45.0) 05/28/18 04:18 Plt Count 163 K/uL (152-406) 05/28/18 04:18 PT 11.9 SECONDS (9.5-12.5) 05/27/18 06:25 INR 1.01 05/27/18 06:25 APTT 32.1 SECONDS (24.3-36.9) 05/27/18 06:25 Sodium 139 mmol/L (136-145) 05/30/18 09:45 Potassium 3.2 mmol/L (3.5-5.1) L 05/30/18 09:45 BUN 10 mg/dL (7-18) 05/30/18 09:45 Creatinine 0.80 mg/dL (0.55-1.3) 05/30/18 09:45 Glucose 110 mg/dL (74-106) H 05/30/18 09:45 Magnesium 1.9 mg/dL (1.8-2.4) 05/30/18 09:45 Total Bilirubin 1.0 mg/dL (0.2-1.0) 05/30/18 09:45 AST 126 U/L (15-37) H D 05/30/18 09:45 ALT 344 U/L (12-78) H* D 05/30/18 09:45 Alkaline Phosphatase 159 U/L (45-117) H 05/30/18 09:45 Amylase 59 U/L (25-115) 05/27/18 06:25 Lipase 75 U/L (73-393) 05/28/18 04:18 Home Medications: Aspirin [Aspirin EC 81 MG] 81 mg PO DAILY 10/20/16 Amlodipine Besylate [Norvasc] 5 mg PO DAILY 05/27/18 Digoxin [Digitek] 125 mcg PO DAILY #90 tablet 05/30/18 Irbesartan [Avapro*] 150 mg PO BEDTIME tab 05/30/18 Spironolactone 25 mg PO DAILY #90 tablet 05/30/18 New Medications: Digoxin [Digitek] 125 mcg PO DAILY #90 tablet Spironolactone 25 mg PO DAILY #90 tablet
--- NOTE | 2018-05-30 18:21 | P.PN ---
Date of Service: 05/30/18 S: Patient doing well today up ambulating, and pain issues have resolved. O: Vital signs are stable, incisions are clean A: Surgically stable P: Discharge home. She will see me Sunday in my office, she is to call for an appointment. She is instructed on use of milk of magnesia, and/or magnesium citrate when she gets home. She understands and wants to proceed. She is also to keep herself well-hydrated, continue incentive spirometer, keep her wounds clean (she may shower). Any questions or problems she says she will return to the emergency room, or contact me.
== END 2018-05-30 19:58 | disposition home or self-care (01) ==
LOC: ER 05:36 → ERHOLD 10:23 → 2ND 11:23 → OBSVTOIN 05-29 20:51 → INTOOBSV 05-29 20:51
PROVIDERS: ADMIT Internal Medicine; ATTEND Internal Medicine
PROC: BF00YZZ Plain Radiography of Bile Ducts using Other Contrast (ICD-10-PCS; 2018-05-28)
PROC: 0FT44ZZ Resection of Gallbladder, Percutaneous Endoscopic Approach (ICD-10-PCS; principal; 2018-05-28 14:30)
DX: K80.00 Calculus of gallbladder with acute cholecystitis without obstruction (principal); E87.6 Hypokalemia; E83.42 Hypomagnesemia; R00.1 Bradycardia, unspecified; R00.8 Other abnormalities of heart beat; I10 Essential (primary) hypertension; I48.91 Unspecified atrial fibrillation; Z85.42 Personal history of malignant neoplasm of other parts of uterus; Z79.82 Long term (current) use of aspirin
CPT/HCPCS: 36415 ×3; 47563; 71045; 74177; 74300; 76705; 80048 ×6; 80076 ×3; 82150; 82550; 82553; 83690 ×2; 83735 ×5; 83880; 84132; 84484; 85025 ×2; 85610; 85730; 88304; 93005 ×2; 93306; 99285; G0009; G0378 ×2; J0744 ×7; J1160; J1650 ×2; J2175; J2250; J2405 ×4; J2710; J3010 ×3; J3475; J7030; Q9967 ×2; 81003; 81015

== ENCOUNTER 2018-06-13 01:14 | Observation (INO) | payer OTHER ==
--- OUTSIDE RECORDS SUMMARY | 2018-06-13 01:16 | XMS REPORT | Clinical Summary ---
:1950 Author Organization [facility] Address [address] [place] [address] Phone Care Team Providers Name Role Phone [...] Encounter for MD Emre screening colonoscopy for [id number] patient (Primary Dx) 05/08/2018 Orders Only General Internal Medicine 05/08/2018 Anesthesia Event César Myrick AA 05/08/2018 Procedure Pass 05/08/2018 Surgery Chandler Doshi COLONOSCOPY MD Emre after 06/12/2017 Social History Tobacco Use Types Packs/Day Years [...] 8:30 AM CDT Colon cancer screening after 06/12/2017 Results EKG-SCANNED (05/09/2018 3:40 PM)REPORT OF PROCEDURE [...] Specimen Performing Laboratory Blood - Arm, Right [facility] [address] [place] [address] CBC with platelet count + automated diff (05/08/2018 8:03 AM) Specimen Performing Laboratory Blood Narrative The following orders were created for panel order CBC with platelet count + automated diff. Procedure Abnormality Status --------- ------ CBC with platelet count ...[[id number]]AbnormalFinal result Please view results for these tests [...] Specimen Performing Laboratory Blood - Arm, Right [facility] [address] [place] [address] after 06/12/2017
--- OUTSIDE RECORDS SUMMARY | 2018-06-13 01:16 | XMS REPORT ---
:1950 Author Organization [facility] Address [address] [place] [address] Care Team Providers Name Role Phone REGINE [...] Comments SODIUM (BEAKER) (test 137 meq/L 135-148 qrrp=729) POTASSIUM (BEAKER) (test 4.3 meq/L 3.6-5.5 Specimen moderately hkuv=292) hemolyzed CHLORIDE (BEAKER) (test 100 meq/L 98-106 vcch=934) CO2 (BEAKER) (test busi=942) 25 meq/L 20-29 BLOOD UREA NITROGEN (BEAKER) 14 mg/dL 10-26 (test uycg=033) CREATININE (BEAKER) (test 0.84 mg/dL 0.50-1.20 Specimen moderately ndog=833) hemolyzed GLUCOSE RANDOM (BEAKER) 98 mg/dL 70-110 (test cjtv=610) CALCIUM (BEAKER) (test 10.0 mg/dL 8.5-10.5 fvqd=169) EGFR (BEAKER) (test 82 mL/min/1.73 sq m ESTIMATED GFR IS NOT oahm=6057) ACCURATE CREATININE CLEARANCE IN PREDICTING GLOMERULAR FILTRATION RATE. ESTIMATED GFR IS NOT APPLICABLE FOR DIALYSIS PATIENTS. CBC W/PLT COUNT & AUTO [id number] 08:10:00 Test Item Value Reference Range Comments WHITE BLOOD CELL COUNT (BEAKER) (test iyvw=984) 5.6 K/ L 4.0-10.0 RED BLOOD CELL COUNT (BEAKER) (test ieur=767) 4.22 M/ L 4.00-5.00 HEMOGLOBIN (BEAKER) (test rmsi=985) 12.5 GM/DL 12.0-15.0 HEMATOCRIT (BEAKER) (test iami=340) 36.7 % 36.0-45.0 MEAN CORPUSCULAR VOLUME (BEAKER) (test gkze=647) 87.0 fL 82.0-99.0 MEAN CORPUSCULAR HEMOGLOBIN (BEAKER) (test 29.6 pg 27.0-33.0 sbev=417) MEAN CORPUSCULAR HEMOGLOBIN CONC (BEAKER) (test 34.1 GM/DL 32.0-36.0 dtwm=157) RED CELL DISTRIBUTION WIDTH (BEAKER) (test 15.0 % 10.3-14.2 dbcc=333) PLATELET COUNT (BEAKER) (test gozi=325) 196 K/CU MM 150-430 MEAN PLATELET VOLUME (BEAKER) (test amrt=141) 8.2 fL 6.5-10.5 NUCLEATED RED BLOOD CELLS (BEAKER) (test 0 /100 WBC 0-0 ftqj=367) NEUTROPHILS RELATIVE PERCENT (BEAKER) (test 64 % nbxf=241) LYMPHOCYTES RELATIVE PERCENT (BEAKER) (test 27 % htke=412) MONOCYTES RELATIVE PERCENT (BEAKER) (test 5 % ybgl=040) EOSINOPHILS RELATIVE PERCENT (BEAKER) (test 3 % dufn=365) BASOPHILS RELATIVE PERCENT (BEAKER) (test 0 % yvgl=278) NEUTROPHILS ABSOLUTE COUNT (BEAKER) (test 3.60 K/ L 1.80-8.00 vjba=748) LYMPHOCYTES ABSOLUTE COUNT (BEAKER) (test 1.50 K/ L 1.48-4.50 ocau=545) MONOCYTES ABSOLUTE COUNT (BEAKER) (test 0.30 K/ L 0.00-1.30 arsw=794) EOSINOPHILS ABSOLUTE COUNT (BEAKER) (test 0.20 K/ L 0.00-0.50 mfzy=763) BASOPHILS ABSOLUTE COUNT (BEAKER) (test 0.00 K/ L 0.00-0.20 oinp=176)
--- NOTE | 2018-06-13 01:52 | EDPHYS ---
Physician Documentation [facility] Name: Misa Claros Age: 68 yrs Sex: Female : 1950 Arrival Date: 06/13/2018 Time: 01:18 Bed 16 Private MD: Mateo Chavez V ED Physician Jaison Donaldson HPI: 06/13 01:46 This 68 yrs old Black Female presents to ER via Unassigned with complaints of Blood alessia Pressure Problem. 01:46 The patient or guardian reports chest pain that is located primarily in the substernal alessia area. Onset: yesterday, last night. The patient presents with a history of irregular heart beat. Context: The symptoms occur at rest. Onset: The symptoms/episode began/occurred yesterday. Modifying factors: The symptoms are aggravated by nothing. The symptoms are alleviated by nothing. Historical: - Allergies: 01:57 Codeine; ea 01:57 Morphine; ea - Home Meds: 01:57 spironolactone 25 mg Oral tab [Active]; digoxin 125 mcg Oral tab [Active]; ea - PMHx: 01:57 uterine cancer; diagnosed a year ago; Hypertension; ea - PSHx: 01:57 Cholecystectomy; ea - Immunization history:: Adult Immunizations up to date. - Social history:: Smoking status: Patient/guardian denies using tobacco. - Family history:: not pertinent. - Ebola Screening: : No symptoms or risks identified at this time. ROS: 01:46 Constitutional: Negative for fever, chills, and weight loss, Eyes: Negative for injury, alessia pain, redness, and discharge, ENT: Negative for injury, pain, and discharge, Neck: Negative for injury, pain, and swelling, Respiratory: Negative for shortness of breath, cough, wheezing, and pleuritic chest pain, Abdomen/GI: Negative for abdominal pain, nausea, vomiting, diarrhea, and constipation, Back: Negative for injury and pain, : Negative for injury, bleeding, discharge, and swelling, MS/Extremity: Negative for injury and deformity, Skin: Negative for injury, rash, and discoloration, Neuro: Negative for headache, weakness, numbness, tingling, and seizure, Psych: Negative for depression, anxiety, suicide ideation, homicidal ideation, and hallucinations, Allergy/Immunology: Negative for hives, rash, and allergies, Endocrine: Negative for neck swelling, polydipsia, polyuria, polyphagia, and marked weight changes, Hematologic/Lymphatic: Negative for swollen nodes, abnormal bleeding, and unusual bruising. :46 Cardiovascular: Positive for chest pain, palpitations. Exam: :46 Constitutional: This is a well developed, well nourished patient who is awake, alert, alessia and in no acute distress. Head/Face: Normocephalic, atraumatic. Eyes: Pupils equal round and reactive to light, extra-ocular motions intact. Lids and lashes normal. Conjunctiva and sclera are non-icteric and not injected. Cornea within normal limits. Periorbital areas with no swelling, redness, or edema. ENT: Nares patent. No nasal discharge, no septal abnormalities noted. Tympanic membranes are normal and external auditory canals are clear. Oropharynx with no redness, swelling, or masses, exudates, or evidence of obstruction, uvula midline. Mucous membranes moist. Neck: Trachea midline, no thyromegaly or masses palpated, and no cervical lymphadenopathy. Supple, full range of motion without nuchal rigidity, or vertebral point tenderness. No Meningismus. Chest/axilla: Normal chest wall appearance and motion. Nontender with no deformity. No lesions are appreciated. Cardiovascular: Regular rate and rhythm with a normal S1 and S2. No gallops, murmurs, or rubs. Normal PMI, no JVD. No pulse deficits. Respiratory: Lungs have equal breath sounds bilaterally, clear to auscultation and percussion. No rales, rhonchi or wheezes noted. No increased work of breathing, no retractions or nasal flaring. Abdomen/GI: Soft, non-tender, with normal bowel sounds. No distension or tympany. No guarding or rebound. No evidence of tenderness throughout. Back: No spinal tenderness. No costovertebral tenderness. Full range of motion. Skin: Warm, dry with normal turgor. Normal color with no rashes, no lesions, and no evidence of cellulitis. MS/ Extremity: Pulses equal, no cyanosis. Neurovascular intact. Full, normal range of motion. Neuro: Awake and alert, GCS 15, oriented to person, place, time, and situation. Cranial nerves II-XII grossly intact. Motor strength 5/5 in all extremities. Sensory grossly intact. Cerebellar exam normal. Normal gait. Psych: Awake, alert, with orientation to person, place and time. Behavior, mood, and affect are within normal limits. 01:47 Musculoskeletal/extremity: DVT Exam: No signs of deep vein thrombosis. no pain, no alessia swelling, no tenderness, negative Homans' sign noted on exam, no appreciated bluish discoloration, no erythema, no increased warmth. Vital Signs: 01:22 BP 200 / 73; Pulse 64; Resp 18; Temp 98.4; Pulse Ox 100% on R/A; Weight 101.15 kg; ea Height 5 ft. 4 in. (162.56 cm); Pain 0/10; 02:42 BP 180 / 64; Pulse 73; Resp 18; Pulse Ox 99% ; ea 03:03 BP 175 / 67; Pulse 60; Resp 18; Pulse Ox 99% ; Pain 0/10; ea 03:30 BP 137 / 94; Pulse 67; Resp 18; Pulse Ox 98% on R/A; ea 04:30 BP 175 / 67; Pulse 63; Resp 18 S; Pulse Ox 99% on R/A; jd3 05:20 BP 157 / 64; Pulse 60; Resp 16 S; Pulse Ox 100% on R/A; jd3 01:22 Body Mass Index 38.28 (101.15 kg, 162.56 cm) ea MDM: 01:39 Patient medically screened. [facility] 01:47 Data reviewed: vital signs, nurses notes, lab test result(s), EKG, radiologic studies, [facility] CT scan, plain films. 06/13 01:45 Order name: Basic Metabolic Panel [facility] 06/13 01:45 Order name: CBC with Diff; Complete Time: 03:06 [facility] 06/13 01:45 Order name: LFT's [facility] 06/13 01:45 Order name: Magnesium [facility] 06/13 01:45 Order name: NT PRO-BNP [facility] 06/13 01:45 Order name: PT-INR; Complete Time: 03:06 [facility] 06/13 01:45 Order name: Troponin (emerg Dept Use Only) [facility] 06/13 01:45 Order name: Lipase [facility] 06/13 01:45 Order name: D-Dimer; Complete Time: 03:06 [facility] 06/13 01:45 Order name: TSH [facility] 06/13 01:58 Order name: Basic Metabolic Panel [facility] 06/13 01:58 Order name: Basic Metabolic Panel [facility] 06/13 01:58 Order name: CBC with Automated Diff [facility] 06/13 01:45 Order name: XRAY Chest (1 view) [facility] 06/13 01:58 Order name: Echo with Doppler [facility] 06/13 01:58 Order name: CBC with Automated Diff [facility] 06/13 01:58 Order name: Troponin I [facility] 06/13 01:58 Order name: Troponin I [facility] 06/13 01:58 Order name: Troponin I [facility] 06/13 02:03 Order name: Urine Dipstick--Ancillary (enter results); Complete Time: 03:06 ms 06/13 02:15 Order name: Digoxin Level [facility] 06/13 02:56 Order name: CT Chest For PE Angio bb 06/13 03:47 Order name: T4 Free [facility] 06/13 01:45 Order name: EKG; Complete Time: 01:46 [facility] 06/13 01:45 Order name: Cardiac monitoring; Complete Time: 01:50 [facility] 06/13 01:45 Order name: EKG - Nurse/Tech; Complete Time: 01:50 [facility] 06/13 01:45 Order name: IV Saline Lock; Complete Time: 02:06 [facility] 06/13 01:45 Order name: Labs collected and sent; Complete Time: 02:06 [facility] 06/13 01:45 Order name: O2 Per Protocol; Complete Time: 01:51 [facility] 06/13 01:45 Order name: O2 Sat Monitoring; Complete Time: 01:51 [facility] 06/13 01:58 Order name: CONS Physician Consult [facility] 06/13 01:58 Order name: CONS Physician Consult [facility] 06/13 01:58 Order name: Regular [facility] 06/13 01:58 Order name: EKG Electrocardiogram [facility] 06/13 01:58 Order name: EKG Electrocardiogram [facility] 06/13 01:58 Order name: EKG Electrocardiogram [facility] 06/13 01:58 Order name: EKG Electrocardiogram [facility] Administered Medications: 02:00 Drug: hydrALAZINE 10 mg Route: IV; Rate: per protocol; Site: left antecubital; ea 02:51 Follow up: Response: No adverse reaction; Blood pressure is lowered; IV Status: ea Completed infusion 02:05 Drug: Pepcid 20 mg Route: IVP; Site: left antecubital; ea 02:52 Follow up: Response: No adverse reaction ea 02:15 Drug: Lovenox 100 mg Route: Sub-Q; Site: left lower abdomen; ea 02:52 Follow up: Response: No adverse reaction ea 02:20 Drug: Aspirin 162 mg Route: PO; ea 02:53 Follow up: Response: No adverse reaction ea 02:20 Drug: Lopressor (metoprolol TARTRATE) 50 mg Route: PO; ea 02:53 Follow up: Response: No adverse reaction; Blood sugar is lowered ea 02:35 Drug: NS 0.9% 1000 ml Route: IV; Rate: 125 ml/hr; Site: left antecubital; ea 02:53 Follow up: Response: No adverse reaction; IV Status: Infusion continued upon admission ea Disposition: 06/13/18 01:52 Hospitalization ordered by Mateo Chavez for Observation. Preliminary diagnosis are Chest pain, unspecified, Essential (primary) hypertension, Obesity, unspecified, Cardiomegaly. - Bed requested for Telemetry/MedSurg (observation). - Status is Observation. jd3 - Condition is Fair. - Problem is new. - Symptoms have improved. UTI on Admission? No Signatures: Dispatcher [employer] [facility]AR Neetu Choen RN RN kl Anderson, Corey, MD MD cha Antunez, Elena, RN RN ea Davies, Jonathon, RN RN jd3 Corrections: (The following items were deleted from the chart) 01:59 01:52 Hospitalization Ordered by Mateo Chavez MD for Observation. Preliminary diagnosis alessia is Chest pain, unspecified. Bed requested for Telemetry/MedSurg (observation). Status is Observation. Condition is Fair. Problem is new. Symptoms have improved. UTI on Admission? No. alessia 02:14 01:50 DIGOXIN+C.LAB.BRZ ordered. [facility] EDAR 02:34 01:59 06/13/2018 01:52 Hospitalization Ordered by Mateo Chavez MD for Observation. kl Preliminary diagnosis is Chest pain, unspecified; Essential (primary) hypertension; Obesity, unspecified. Bed requested for Telemetry/MedSurg (observation). Status is Observation. Condition is Fair. Problem is new. Symptoms have improved. UTI on Admission? No. alessia 03:09 02:34 06/13/2018 01:52 Hospitalization Ordered by Mateo Chavez MD for Observation. alessia Preliminary diagnosis is Chest pain, unspecified; Essential (primary) hypertension; Obesity, unspecified. Bed requested for Telemetry/MedSurg (observation). Status is Observation. Condition is Fair. Problem is new. Symptoms have improved. UTI on Admission? No. kl 05:35 03:09 06/13/2018 01:52 Hospitalization Ordered by Mateo Chavez MD for Observation. jd3 Preliminary diagnosis is Chest pain, unspecified; Essential (primary) hypertension; Obesity, unspecified; Cardiomegaly. Bed requested for Telemetry/MedSurg (observation). Status is Observation. Condition is Fair. Problem is new. Symptoms have improved. UTI on Admission? No. alessia
[2018-06-13] MEDS ORDERED: ACETAMINOPHEN 500 MG TAB PO PRN (01:54)
[2018-06-13] MEDS ORDERED: ONDANSETRON 4 MG/2 ML VIAL IV PRN (01:54)
[2018-06-13] MEDS: NA CHLORIDE 0.9% 1,000 ML IV SCH ×2 (02:00→15:20)
[2018-06-13] MEDS ORDERED: ASPIRIN 81 MG CHEWABLE TABLET ONE (02:07)
[2018-06-13] MEDS ORDERED: HYDRALAZINE HCL 20 MG/ML VIAL ONE (02:08)
[2018-06-13] MEDS ORDERED: METOPROLOL TAR 50 MG TAB ONE (02:08)
[2018-06-13 02:16] LABS: Absolute Lymphocytes (CBC) 1.8 K/uL (0.7-4.9); Absolute Monocytes 0.3 K/uL (0.1-1.3); Absolute Neutrophil 3.1 K/uL (1.8-8.0); Basophils % 0.6 % (0-1.3); Eosinophils % 5.2 % (0-4.4); Hematocrit 35.4 % (36.0-45.0); MCH 29.9 pg (27.0-35.0); MCV 88.2 fL (80-100); MPV 8.2 fL (7.6-11.3); RBC Red Blood Cell Count 4.01 M/uL (3.86-4.86)
[2018-06-13 02:19] LABS: Urine Blood TRACE (NEG); Urine Glucose NEGATIVE (NEG); Urine Protein NEGATIVE (NEG); Urine Specific Gravity <1.005 (1.005-1.030)
[2018-06-13 02:47] LABS: Protime INR 1.02
[2018-06-13 03:21] LABS: ALT/SGPT 23 U/L (12-78); AST/SGOT 13 U/L (15-37); Albumin 3.7 g/dL (3.4-5.0); Alkaline Phosphatase 88 U/L (45-117); BUN Blood Urea Nitrogen 15 mg/dL (7-18); Bicarbonate 25 mmol/L (21-32); Bilirubin Direct 0.2 mg/dL (0-0.2); Bilirubin Total 0.6 mg/dL (0.2-1.0); Glucose Level 92 mg/dL (74-106); Lipase 76 U/L (73-393); Magnesium 2.1 mg/dL (1.8-2.4); NT PRO-BNP 332 pg/mL (<125); Potassium 3.8 mmol/L (3.5-5.1); Protein, Total 8.2 g/dL (6.4-8.2); Sodium Level 139 mmol/L (136-145); Troponin (Emerg Dept Use Only) < 0.02 ng/mL (0.0-0.045)
--- NOTE | 2018-06-13 05:36 | ER ---
Nurse's Notes [facility] Name: Misa Claros Age: 68 yrs Sex: Female : 1950 Arrival Date: 06/13/2018 Time: 01:18 Bed 16 Private MD: Mateo Chavez V Diagnosis: Chest pain, unspecified;Essential (primary) hypertension;Obesity, unspecified;Cardiomegaly Presentation: 06/13 01:22 Presenting complaint: Patient states: Patient states she has been monitoring her blood ea pressure all day and when she took her blood pressure tonight it was "140s/100" pt states about two hours ago she felt she had indigestion, denies chest pain states "it's not chest pain feels more like indigestion, just feels tight". Transition of care: patient was not received from another setting of care. Onset of symptoms was June 13, 2018. Risk Assessment: Do you want to hurt yourself or someone else? Patient reports no desire to harm self or others. Initial Sepsis Screen: Does the patient meet any 2 criteria? No. Patient's initial sepsis screen is negative. Does the patient have a suspected source of infection? No. Patient's initial sepsis screen is negative. Care prior to arrival: Medication(s) given: aspirin this AM. :22 Method Of Arrival: Ambulatory ea 01:22 Acuity: VINOD 3 ea Triage Assessment: 01:22 General: Appears in no apparent distress. Behavior is calm, cooperative, appropriate ea for age. Pain: Complains of pain in epigastric area Pain does not radiate. Pain currently is 2 out of 10 on a pain scale. Quality of pain is described as pressure, Pain began 2 hours ago. EENT: No signs and/or symptoms were reported regarding the EENT system. Neuro: Level of Consciousness is awake, alert, obeys commands, Oriented to person, place, time, situation. 01:22 Cardiovascular: Heart tones S1 S2 present Patient's skin is warm and dry. Respiratory: ea Airway is patent Respiratory effort is even, unlabored, Respiratory pattern is regular, symmetrical, Breath sounds are clear bilaterally. GI: Abdomen is obese, Bowel sounds present X 4 quads. : No signs and/or symptoms were reported regarding the genitourinary system. Derm: Skin is pink, warm \\T\\ dry. Musculoskeletal: Circulation, motion, and sensation intact. Historical: - Allergies: :57 Codeine; ea 01:57 Morphine; ea - Home Meds: 01:57 spironolactone 25 mg Oral tab [Active]; digoxin 125 mcg Oral tab [Active]; ea - PMHx: 01:57 uterine cancer; diagnosed a year ago; Hypertension; ea - PSHx: :57 Cholecystectomy; ea - Immunization history:: Adult Immunizations up to date. - Social history:: Smoking status: Patient/guardian denies using tobacco. - Family history:: not pertinent. - Ebola Screening: : No symptoms or risks identified at this time. Screenin:06 Abuse screen: Denies threats or abuse. Nutritional screening: No deficits noted. ea Tuberculosis screening: No symptoms or risk factors identified. Fall Risk IV access (20 points). Assessment: 01:23 Reassessment: see triage assessment. ea 02:58 Reassessment: Patient and/or family updated on plan of care and expected duration. Pain ea level reassessed. Patient is alert, oriented x 3, equal unlabored respirations, skin warm/dry/pink. 03:48 Reassessment: Patient and/or family updated on plan of care and expected duration. Pain ea level reassessed. Patient is alert, oriented x 3, equal unlabored respirations, skin warm/dry/pink. Pt taken to CT. 04:30 Reassessment: Patient appears in no apparent distress at this time. Patient and/or jd3 family updated on plan of care and expected duration. Pain level reassessed. Patient is alert, oriented x 3, equal unlabored respirations, skin warm/dry/pink. 05:21 Reassessment: Patient appears in no apparent distress at this time. Patient and/or jd3 family updated on plan of care and expected duration. Pain level reassessed. Patient is alert, oriented x 3, equal unlabored respirations, skin warm/dry/pink. 05:35 Reassessment: Patient appears in no apparent distress at this time. Patient and/or jd3 family updated on plan of care and expected duration. Pain level reassessed. Patient is alert, oriented x 3, equal unlabored respirations, skin warm/dry/pink. Vital Signs: 01:22 BP 200 / 73; Pulse 64; Resp 18; Temp 98.4; Pulse Ox 100% on R/A; Weight 101.15 kg; ea Height 5 ft. 4 in. (162.56 cm); Pain 0/10; 02:42 BP 180 / 64; Pulse 73; Resp 18; Pulse Ox 99% ; ea 03:03 BP 175 / 67; Pulse 60; Resp 18; Pulse Ox 99% ; Pain 0/10; ea 03:30 BP 137 / 94; Pulse 67; Resp 18; Pulse Ox 98% on R/A; ea 04:30 BP 175 / 67; Pulse 63; Resp 18 S; Pulse Ox 99% on R/A; jd3 05:20 BP 157 / 64; Pulse 60; Resp 16 S; Pulse Ox 100% on R/A; jd3 01:22 Body Mass Index 38.28 (101.15 kg, 162.56 cm) ea ED Course: 01:18 Patient arrived in ED. ds1 01:18 Mateo Chavez MD is Private Physician. ds1 01:21 Fadia Youngblood RN is Primary Nurse. ea 01:22 Patient has correct armband on for positive identification. Bed in low position. Call ea light in reach. Side rails up X2. 01:22 Arm band placed on right wrist. Patient placed in an exam room, on a stretcher, on ea pulse oximetry. 01:39 Jaison Donaldson MD is Attending Physician. alessia 01:50 Mateo Chavez MD is Hospitalizing Provider. [facility] 01:53 Triage completed. ea 02:02 Inserted saline lock: 20 gauge in left forearm, using aseptic technique. Blood jd3 collected. 02:12 X-ray completed. Portable x-ray completed in exam room. Patient tolerated procedure kw well. 02:13 XRAY Chest (1 view) In Process Unspecified. EDMS 02:45 No provider procedures requiring assistance completed. Patient admitted, IV remains in ea place. 02:53 Notified ED physician of a critical lab result(s). D-Dimer 2026 Dr Donaldson notified. bb Administered Medications: 02:00 Drug: hydrALAZINE 10 mg Route: IV; Rate: per protocol; Site: left antecubital; ea 02:51 Follow up: Response: No adverse reaction; Blood pressure is lowered; IV Status: ea Completed infusion 02:05 Drug: Pepcid 20 mg Route: IVP; Site: left antecubital; ea 02:52 Follow up: Response: No adverse reaction ea 02:15 Drug: Lovenox 100 mg Route: Sub-Q; Site: left lower abdomen; ea 02:52 Follow up: Response: No adverse reaction ea 02:20 Drug: Aspirin 162 mg Route: PO; ea 02:53 Follow up: Response: No adverse reaction ea 02:20 Drug: Lopressor (metoprolol TARTRATE) 50 mg Route: PO; ea 02:53 Follow up: Response: No adverse reaction; Blood sugar is lowered ea 02:35 Drug: NS 0.9% 1000 ml Route: IV; Rate: 125 ml/hr; Site: left antecubital; ea 02:53 Follow up: Response: No adverse reaction; IV Status: Infusion continued upon admission ea Outcome: 01:52 Decision to Hospitalize by Provider. alessia 05:34 Admitted to Med/surg via wheelchair, room 424, with chart, Report called to Gracia delgado 05:34 Condition: stable 05:34 Instructed on the need for admit, Demonstrated understanding of instructions. 05:35 Patient left the ED. jd3 Signatures: Dispatcher [employer] EDJaison Kam MD MD cha Sanford, Demi ds1 Kenna Tomlin RN Stephanie Lainez Elena RN Santos Tang ea, RN RN jd3
[2018-06-13] MEDS: METOPROLOL TAR 25 MG TAB PO SCH ×2 (06:00→17:55)
[2018-06-13 06:48] VITALS: BMI 38.2
--- NOTE | 2018-06-13 08:17 | RAD REPORT ---
EXAM DESCRIPTION: RAD - Chest Single View - 06/13/2018 2:13 am CLINICAL HISTORY: CHEST PAIN Chest pain. COMPARISON: Chest Single View dated 05/27/2018 FINDINGS: Portable technique limits examination quality. The lungs are grossly clear. The heart is mildly enlarged in size. No displaced fractures. IMPRESSION: No acute intrathoracic process suspected.
--- NOTE | 2018-06-13 08:19 | RAD REPORT ---
EXAM DESCRIPTION: CT - Chest For Pe Angio - 06/13/2018 5:26 am CLINICAL HISTORY: Chest pain. CHEST PAIN COMPARISON: Abdomen Pelvis W Contrast dated 05/27/2018 TECHNIQUE: CT angiogram of the pulmonary arteries was performed with MIP. All CT scans are performed using dose optimization technique as appropriate and may include automated exposure control or mA/KV adjustment according to patient size. FINDINGS: No evidence of pulmonary thromboembolism. No acute aortic finding demonstrated. The lungs are clear. Small hiatal hernia. No significant pericardial or pleural fluid. No concerning bony finding. Bilateral renal cysts. Cholecystectomy clips. IMPRESSION: No evidence of pulmonary thromboembolism. No acute lung findings. Small hiatal hernia.
[2018-06-13] MEDS ORDERED: ASPIRIN EC 81 MG TAB PO SCH (09:00)
[2018-06-13] MEDS ORDERED: ENOXAPARIN 100 MG/ML SYR SQ SCH (09:00)
[2018-06-13] MEDS ORDERED: FAMOTIDINE 20 MG/2 ML VIAL IV SCH (09:00)
[2018-06-13] MEDS ORDERED: AMLODIPINE 5 MG TAB PO SCH (09:00)
[2018-06-13] MEDS ORDERED: DIGOXIN 0.125 MG TABLET PO SCH ×2 (09:00)
[2018-06-13] MEDS ORDERED: SPIRONOLACTONE 25 MG TABLET PO SCH (09:00)
[2018-06-13 17:25] VITALS: BP 151/70; TEMP 97.7
[2018-06-13 19:00] VITALS: O2SAT 100
--- NOTE | 2018-06-14 04:50 | HP ---
Date of Admission: 06/13/2018 Reason For Admission: High blood pressure. History Of Present Illness: The patient is a 68-year-old who checked her BP last night, was 200 syst olic, decided to come to emergency room. Has no chest pain and no palpitations. Past Medical History: The patient was recently in the hospital for cholecystectomy, has done well si nce then. At that time, she had bradycardia and we had to stop her atenolol. She has severe hypokal emia. We had to stop her chlorthalidone at that point. She was supposed to continue on amlodipine, and I see that she had not taken it since then. Allergies: CODEINE. Surgical History: Uterine cancer, status post total hysterectomy, high blood pressure, and . Family History: Father with CA. Social History: Nonsmoker. Does not consume alcohol. Physical Examination: Vital Signs: The patient's blood pressure is 184/78, down to 151/79 with amlodipine, pulse of 56, te mperature normal, O2 saturation 98%. HEENT: No JVD. No carotid bruits. Chest: Clear. Heart: Regular. Abdomen: No guarding, no rebound, no rigidity, no tenderness. Assessment And Plan: 1.Uncontrolled high blood pressure. Amlodipine once a day 5 mg to be continued. Cardiac enzymes ne gative. She could possibly go home if she wants to. She has no cardiac symptoms. No chest pain. H er troponin, cardiac enzymes negative. Today is her birthday and she possibly wishes to go home, so I will discharge her if she is willing to. AD/UNA Voice ID: [id number]
--- NOTE | 2018-06-14 06:57 | EKG ---
Test Date: 2018-06-13 Test Time: 01:40:58 Electric Tripper Machine Operator: SUMAYA MEASUREMENT RESULTS: Intervals: Rate: 71 MN: 126 QRSD: 96 QT: 402 QTc: 436 Gillett: P: 0 MN: 126 QRS: 25 T: 17 INTERPRETIVE STATEMENTS: Normal sinus rhythm Possible Anterior infarct, age undetermined Abnormal ECG Compared to ECG 05/27/2018 11:36:56 First degree AV block no longer present Myocardial infarct finding still present Electronically Signed On 06-14-18 06:55:04 CDT by David Dobson
--- NOTE | 2018-06-15 23:28 | DS ---
Date of Discharge: 06/13/2018 Hospital Course: Ms. Claros comes in to the hospital with high blood pressure. She had no chest pa in. I have asked her multiple times, even the ER doctor ruled out chest pain. Her blood pressure is better controlled with amlodipine 5 mg p.o. b.i.d. I have given her discharge medication for the sa me. She will take the medications; she was supposed to be on it. I am not sure why she stopped the amlodipine. We stopped atenolol last night, not amlodipine. If she develops edema from amlodipine, I will reduce the dose and add losartan at this point. She is discharged in stable condition. AD/UNA Voice ID: [id number] Report ID: [id number]
== END 2018-06-13 19:01 | disposition home or self-care (01) ==
LOC: ER 01:14 → ERHOLD 01:52 → 4TH 04:12
PROVIDERS: ADMIT Internal Medicine; ATTEND Internal Medicine
DX: I10 Essential (primary) hypertension (principal); E87.6 Hypokalemia; Z85.42 Personal history of malignant neoplasm of other parts of uterus
CPT/HCPCS: 36415; 71045; 71275; 80048; 80076; 80162; 81003; 83690; 83735; 83880; 84439; 84443; 84484 ×3; 85025; 85379; 85610; 93005; 96365; 96372; 96375; 99285; G0378 ×2; J0360; J1650 ×2; J7030; Q9967

== ENCOUNTER 2019-04-20 02:19 | Emergency (ER) | payer OTHER ==
--- OUTSIDE RECORDS SUMMARY | 2019-04-20 02:21 | XMS REPORT ---
:1950 [facility] Address [address] [place] [address] Care Team Providers Name Role Phone REGINE [...] Comments SODIUM (BEAKER) (test 137 meq/L 135-148 zado=649) POTASSIUM (BEAKER) (test 4.3 meq/L 3.6-5.5 Specimen moderately mqfk=415) hemolyzed CHLORIDE (BEAKER) (test 100 meq/L 98-106 jlhc=281) CO2 (BEAKER) (test tcrg=281) 25 meq/L 20-29 BLOOD UREA NITROGEN (BEAKER) 14 mg/dL 10-26 (test cbhu=103) CREATININE (BEAKER) (test 0.84 mg/dL 0.50-1.20 Specimen moderately lylz=692) hemolyzed GLUCOSE RANDOM (BEAKER) 98 mg/dL 70-110 (test evwe=872) CALCIUM (BEAKER) (test 10.0 mg/dL 8.5-10.5 doum=147) EGFR (BEAKER) (test 82 mL/min/1.73 sq m ESTIMATED GFR IS NOT ehrm=0802) ACCURATE CREATININE CLEARANCE IN PREDICTING GLOMERULAR FILTRATION RATE. ESTIMATED GFR IS NOT APPLICABLE FOR DIALYSIS PATIENTS. CBC W/PLT COUNT & AUTO [id number] 08:10:00 Test Item Value Reference Range Comments WHITE BLOOD CELL COUNT (BEAKER) (test bynm=964) 5.6 K/ L 4.0-10.0 RED BLOOD CELL COUNT (BEAKER) (test grxp=788) 4.22 M/ L 4.00-5.00 HEMOGLOBIN (BEAKER) (test nere=623) 12.5 GM/DL 12.0-15.0 HEMATOCRIT (BEAKER) (test zmxf=075) 36.7 % 36.0-45.0 MEAN CORPUSCULAR VOLUME (BEAKER) (test nefw=653) 87.0 fL 82.0-99.0 MEAN CORPUSCULAR HEMOGLOBIN (BEAKER) (test 29.6 pg 27.0-33.0 lxxl=508) MEAN CORPUSCULAR HEMOGLOBIN CONC (BEAKER) (test 34.1 GM/DL 32.0-36.0 xdho=493) RED CELL DISTRIBUTION WIDTH (BEAKER) (test 15.0 % 10.3-14.2 isem=049) PLATELET COUNT (BEAKER) (test crzj=535) 196 K/CU MM 150-430 MEAN PLATELET VOLUME (BEAKER) (test zlmq=476) 8.2 fL 6.5-10.5 NUCLEATED RED BLOOD CELLS (BEAKER) (test 0 /100 WBC 0-0 ghpr=677) NEUTROPHILS RELATIVE PERCENT (BEAKER) (test 64 % ewgq=415) LYMPHOCYTES RELATIVE PERCENT (BEAKER) (test 27 % dleh=787) MONOCYTES RELATIVE PERCENT (BEAKER) (test 5 % wqbr=147) EOSINOPHILS RELATIVE PERCENT (BEAKER) (test 3 % bzxh=968) BASOPHILS RELATIVE PERCENT (BEAKER) (test 0 % mntn=786) NEUTROPHILS ABSOLUTE COUNT (BEAKER) (test 3.60 K/ L 1.80-8.00 tbwq=292) LYMPHOCYTES ABSOLUTE COUNT (BEAKER) (test 1.50 K/ L 1.48-4.50 qjwb=134) MONOCYTES ABSOLUTE COUNT (BEAKER) (test 0.30 K/ L 0.00-1.30 qftb=083) EOSINOPHILS ABSOLUTE COUNT (BEAKER) (test 0.20 K/ L 0.00-0.50 euip=648) BASOPHILS ABSOLUTE COUNT (BEAKER) (test 0.00 K/ L 0.00-0.20 bhtp=837)
--- OUTSIDE RECORDS SUMMARY | 2019-04-20 02:21 | XMS REPORT | Clinical Summary ---
:1950 Author Organization [facility] Address [address] [place] [address] Care Team Providers Name Role Phone Pcp, No Primary Care Provider Unavailable Allergies Active Allergy Reactions Severity Noted Date Comments Codeine Nausea And Vomiting 05/03/2018 Morphine Nausea And Vomiting 05/03/2018 Naloxone Nausea And Vomiting 05/03/2018 Opium Nausea And Vomiting 05/03/2018 Medications Medication Sig Dispensed Refills Start Date End Date Status aspirin 81 MG EC tablet Take 81 mg by 0 Active mouth daily. atenolol (TENORMIN) 100 Take 100 mg by 0 Active MG tablet mouth daily. chlorthalidone (HYGROTON) Take 25 mg by 0 Active 25 MG tablet mouth daily. Active Problems Not on file Encounters Date Type Specialty Care Team Description 05/08/2018 Anesthesia Event César Myrick, AA 05/08/2018 Surgery Chandler Doshi COLONOSCOPY MD Emre 05/08/2018 Hospital Encounter Chandler Doshi Encounter for MD Emre screening colonoscopy for [id number] patient (Primary Dx) 05/08/2018 Orders Only General Internal Medicine after 04/19/2018 Social History Tobacco Use Types Packs/Day Years Used Date Never Smoker Smokeless Tobacco: Never Used Alcohol Use Drinks/Week oz/Week Comments Yes occasional Sex Assigned at Date Recorded Not on file Job Start Date Occupation Industry Not on file Not on file Not on file Travel History Travel Start Travel End No recent travel history available. Last Filed Vital Signs Vital Sign Reading [...] file Procedures Procedure Name Priority Date/Time Associated Comments Diagnosis REPORT OF PROCEDURE - 05/09/2018 3:40 ENDOSCOPY SCAN PM CDT REPORT OF PROCEDURE - 05/08/2018 8:58 ENDOSCOPY URL AM CDT COLONOSCOPY 05/08/2018 8:30 Colon cancer AM CDT screening CBC W/PLT COUNT & Routine 05/08/2018 8:03 Results for this AUTO DIFFERENTIAL AM CDT procedure are in the results section. BASIC METABOLIC PANEL Routine 05/08/2018 8:03 Results for this (7) AM CDT procedure are in the results section. CBC W/PLT COUNT & Routine 05/08/2018 8:03 Results for this AUTO DIFFERENTIAL AM CDT procedure are in the results section. after 04/19/2018 Results EKG-SCANNED (05/09/2018 3:40 PM CDT) Narrative Performed At REPORT OF PROCEDURE - ENDOSCOPY URL (05/08/2018 8:58 AM CDT) Narrative Performed At CBC with platelet count + automated diff (05/08/2018 8:03 AM CDT) WBC 5.6 4.0 - 10.0 K/L [facility] RBC 4.22 4.00 - 5.00 M/L [facility] Hemoglobin 12.5 12.0 - 15.0 GM/DL [facility] Hematocrit 36.7 36.0 - 45.0 % [facility] MCV 87.0 82.0 - 99.0 fL [facility] MCH 29.6 27.0 - 33.0 pg [facility] MCHC 34.1 32.0 - 36.0 GM/DL [facility] RDW 15.0 (H) 10.3 - 14.2 % [facility] Platelets 196 150 - 430 K/CU MM [facility] MPV 8.2 6.5 - 10.5 fL [facility] nRBC 0 0 - 0 /100 WBC [facility] % Neutros 64 % [facility] % Lymphs 27 % [facility] % Monos 5 % [facility] % Eos 3 % [facility] % Baso 0 % [facility] # Neutros 3.60 1.80 - 8.00 K/L [facility] # Lymphs 1.50 1.48 - 4.50 K/L [facility] # Monos 0.30 0.00 - 1.30 K/L [facility] # Eos 0.20 0.00 - 0.50 K/L [facility] # Baso 0.00 0.00 - 0.20 K/L [facility] Specimen Blood Performing Organization Address City/State/Zipcode Phone Number [facility] [place] [address] [place], [place] [id number] Basic Metabolic Panel (05/08/2018 8:03 AM CDT) Sodium 137 135 - 148 meq/L [facility] Potassium 4.3Comment: Specimen moderately 3.6 - 5.5 meq/L [facility] hemolyzed Chloride 100 98 - 106 meq/L [facility] CO2 25 20 - 29 meq/L [facility] BUN 14 10 - 26 mg/dL [facility] Creatinine 0.84Comment: Specimen moderately 0.50 - 1.20 mg/dL [facility] hemolyzed Glucose 98 70 - 110 mg/dL [facility] Calcium 10.0 8.5 - 10.5 mg/dL [facility] EGFR 82Comment: ESTIMATED GFR IS NOT mL/min/1.73 sq m [facility] ACCURATE CREATININE CLEARANCE IN PREDICTING GLOMERULAR FILTRATION RATE. ESTIMATED GFR IS NOT APPLICABLE FOR DIALYSIS PATIENTS. Specimen Blood Performing Organization Address City/State/Zipcode Phone Number [facility] [address] [place], [place] [address] [phone] after 04/19/2018 Insurance Payer Benefit Plan / Subscriber ID Type Phone Address Group [employer] - MEDICARE AET[employer] MEDICARE HMO xxxxxxxx [phone] [address] [place] [address]
--- NOTE | 2019-04-20 03:30 | ER ---
Nurse's Notes [facility] Name: Misa Claros Age: 68 yrs Sex: Female : 1950 Arrival Date: 04/20/2019 Time: 02:23 Bed 13 Private MD: Diagnosis: Contusion of left knee Presentation: 04/20 02:30 Presenting complaint: Patient states: I fell while at a family reunion and landed on my jb4 left knee. 02:30 Transition of care: patient was not received from another setting of care. Onset of jb4 symptoms was April 20, 2019. Risk Assessment: Do you want to hurt yourself or someone else? Patient reports no desire to harm self or others. Initial Sepsis Screen: Does the patient meet any 2 criteria? No. Patient's initial sepsis screen is negative. Does the patient have a suspected source of infection? No. Patient's initial sepsis screen is negative. Care prior to arrival: None. 02:30 Method Of Arrival: Wheelchair jb4 02:30 Acuity: VINOD 4 jb4 Historical: - Allergies: 02:30 Codeine; jb4 02:30 Morphine; jb4 - Home Meds: 02:30 amlodipine 5 mg tab 1 tab once daily [Active]; aspirin 81 mg tab Oral TbEC 1 tab once jb4 daily [Active]; digoxin 125 mcg Oral tab [Active]; triamterene-hydrochlorothiazid 37.5-25 mg Oral cap [Active]; - PMHx: 02:30 Hypertension; uterine cancer; diagnosed a year ago; jb4 - PSHx: 02:30 Cholecystectomy; jb4 - Immunization history:: Adult Immunizations up to date. - Social history:: Smoking status: Patient/guardian denies using tobacco, Patient uses alcohol, but reports only rare drinking. - Family history:: not pertinent. - Ebola Screening: : No symptoms or risks identified at this time. - Hospitalizations: : No recent hospitalization is reported. Screenin:30 Abuse screen: Denies threats or abuse. Nutritional screening: No deficits noted. jb4 Tuberculosis screening: No symptoms or risk factors identified. Fall Risk Fall in past 12 months (25 points). Total Rawls Fall Scale indicates Low Risk Score (25-44 pts). Fall prevention measures have been instituted. Side Rails Up X 2 Placed close to Nursing Station Frequent Obs/Assesments occuring Family Present and informed to notify staff if they need to leave bedside As available Patient and Family Educated on Fall Prevention Program and strategies. Assessment: 02:30 General: Appears in no apparent distress. uncomfortable, Behavior is calm, cooperative, jb4 appropriate for age. Pain: Complains of pain in left knee Pain does not radiate. Pain currently is 7 out of 10 on a pain scale. Quality of pain is described as throbbing, Pain began 1 hour ago. Is continuous. Neuro: Level of Consciousness is awake, alert, obeys commands, Oriented to person, place, time, situation. Cardiovascular: Patient's skin is warm and dry. Pulses are 3+ in right dorsalis pedis artery and left dorsalis pedis artery. Respiratory: Airway is patent Respiratory effort is even, unlabored, Respiratory pattern is regular, symmetrical. GI: No signs and/or symptoms were reported involving the gastrointestinal system. : No deficits noted. EENT: No signs and/or symptoms were reported regarding the EENT system. Derm: Skin is intact, Skin is dry, Skin is normal, Skin temperature is warm. Musculoskeletal: Circulation, motion, and sensation intact. Range of motion: intact in all extremities. 03:48 Reassessment: Patient appears in no apparent distress at this time. Patient and/or jb4 family updated on plan of care and expected duration. Pain level reassessed. Patient is alert, oriented x 3, equal unlabored respirations, skin warm/dry/pink. PT and family verbalized understanding of d/c and follow up instructions. pt assisted to vehicle via wheelchair. Vital Signs: 02:30 BP 149 / 77; Pulse 75; Resp 18; Temp 97.4(TE); Pulse Ox 99% on R/A; Weight 101.15 kg jb4 (R); Height 5 ft. 4 in. (162.56 cm) (R); Pain 7/10; 03:45 BP 137 / 79; Pulse 62; Resp 18; Pulse Ox 99% on R/A; jb4 02:30 Body Mass Index 38.28 (101.15 kg, 162.56 cm) jb4 ED Course: 02:23 Patient arrived in ED. ds1 02:24 Rj Montilla MD is Attending Physician. rn 02:30 Arm band placed on left wrist. jb4 02:30 Patient has correct armband on for positive identification. Bed in low position. Call jb4 light in reach. Side rails up X 1. Pulse ox on. NIBP on. 02:39 Jah Cabezas, RN is Primary Nurse. jb4 02:40 Triage completed. jb4 03:10 X-ray completed. Patient tolerated procedure well. Patient moved back from radiology. mh1 03:13 XRAY Femur LEFT In Process Unspecified. EDMS 03:13 XRAY Knee LEFT 3 view In Process Unspecified. EDMS 03:45 No provider procedures requiring assistance completed. Patient did not have IV access jb4 during this emergency room visit. Administered Medications: No medications were administered Outcome: 03:29 Discharge ordered by . rn 03:45 Discharged to home via wheelchair, with family. jb4 03:45 Condition: stable 03:45 Discharge instructions given to patient, family, Instructed on discharge instructions, follow up and referral plans. Demonstrated understanding of instructions, follow-up care. 03:51 Patient left the ED. jb4 Signatures: Dispatcher [employer] [facility] Alda Soler 1 Alyx Garcia 1 Rj Montilla MD MD rn Bryson, James, RN RN jb4
--- NOTE | 2019-04-20 03:30 | EDPHYS ---
Physician Documentation [facility] Name: Misa Claros Age: 68 yrs Sex: Female : 1950 Arrival Date: 04/20/2019 Time: 02:23 Bed 13 Private MD: ED Physician Rj Montilla HPI: 04/20 02:31 This 68 yrs old Black Female presents to ER via Unassigned with complaints of Fall rn Injury. 02:31 Details of fall: The patient fell from an upright position, while walking. Onset: The rn symptoms/episode began/occurred just prior to arrival. Associated injuries: The patient sustained left knee. Severity of symptoms: At their worst the symptoms were mild, in the emergency department the symptoms are unchanged. The patient has not experienced similar symptoms in the past. The patient has not recently seen a physician. Reports tripped, hit left knee on hard floor, is ambulatory, no other injuries. Fell yesterday and hit head but no focal neuro complaints, no LOC, no seizure, only takes baby aspirin, family reports acting normal. Reports left knee hurts, feels sore and doesn't feel broken, but family states fallen before and had broken foot and didn't realize until later.. Historical: - Allergies: 02:30 Codeine; jb4 02:30 Morphine; jb4 - Home Meds: 02:30 amlodipine 5 mg tab 1 tab once daily [Active]; aspirin 81 mg tab Oral TbEC 1 tab once jb4 daily [Active]; digoxin 125 mcg Oral tab [Active]; triamterene-hydrochlorothiazid 37.5-25 mg Oral cap [Active]; - PMHx: 02:30 Hypertension; uterine cancer; diagnosed a year ago; jb4 - PSHx: 02:30 Cholecystectomy; jb4 - Immunization history:: Adult Immunizations up to date. - Social history:: Smoking status: Patient/guardian denies using tobacco, Patient uses alcohol, but reports only rare drinking. - Family history:: not pertinent. - Ebola Screening: : No symptoms or risks identified at this time. - Hospitalizations: : No recent hospitalization is reported. ROS: 02:31 Constitutional: Negative for fever, chills, and weight loss, Eyes: Negative for injury, rn pain, redness, and discharge, Neck: Negative for injury, pain, and swelling, Cardiovascular: Negative for chest pain, palpitations, and edema, Respiratory: Negative for shortness of breath, cough, wheezing, and pleuritic chest pain, Abdomen/GI: Negative for abdominal pain, nausea, vomiting, diarrhea, and constipation, Back: Negative for injury and pain, MS/Extremity: + left knee pain and injury Skin: Negative for injury, rash, and discoloration, Neuro: Negative for headache, weakness, numbness, tingling, and seizure. Exam: 02:31 Constitutional: This is a well developed, well nourished patient who is awake, alert, rn and in no acute distress. Head/Face: Normocephalic, atraumatic. Neck: Trachea midline, no thyromegaly or masses palpated, and no cervical lymphadenopathy. Supple, full range of motion without nuchal rigidity, or vertebral point tenderness. No Meningismus. Chest/axilla: Normal chest wall appearance and motion. Nontender with no deformity. Abdomen/GI: soft, non-tender Back: No spinal tenderness. No costovertebral tenderness. Full range of motion. MS/ Extremity: Pulses equal, no cyanosis. Neurovascular intact. Full, normal range of motion. Equal circumference. Neuro: Awake and alert, GCS 15, oriented to person, place, time, and situation. Cranial nerves II-XII grossly intact. Motor strength 5/5 in all extremities. Sensory grossly intact. Cerebellar exam normal. Vital Signs: 02:30 BP 149 / 77; Pulse 75; Resp 18; Temp 97.4(TE); Pulse Ox 99% on R/A; Weight 101.15 kg jb4 (R); Height 5 ft. 4 in. (162.56 cm) (R); Pain 7/10; 03:45 BP 137 / 79; Pulse 62; Resp 18; Pulse Ox 99% on R/A; jb4 02:30 Body Mass Index 38.28 (101.15 kg, 162.56 cm) jb4 MDM: 02:24 Patient medically screened. rn 03:28 Differential diagnosis: contusion, fracture. Data reviewed: vital signs, nurses notes, rn radiologic studies, plain films, and as a result, I will discharge patient. Test interpretation: by ED physician or midlevel provider: plain radiologic studies, Xray left femur and knee without acute fracture/dislocation. Counseling: I had a detailed discussion with the patient and/or guardian regarding: the historical points, exam findings, and any diagnostic results supporting the discharge/admit diagnosis, radiology results, the need for outpatient follow up, to return to the emergency department if symptoms worsen or persist or if there are any questions or concerns that arise at home. Special discussion: I discussed with the patient/guardian in detail that at this point there is no indication for admission to the hospital. It is understood, however, that if the symptoms persist or worsen the patient needs to return immediately for re-evaluation. 04/20 02:31 Order name: XRAY Femur LEFT rn 04/20 02:31 Order name: XRAY Knee LEFT 3 view rn Administered Medications: No medications were administered Disposition: 04/20/19 03:29 Discharged to Home. Impression: Contusion of left knee. - Condition is Stable. - Discharge Instructions: Contusion, Knee Pain. - Medication Reconciliation Form, Thank You Letter, Antibiotic Education, Prescription Opioid Use form. - Follow up: Private Physician; When: As needed; Reason: Recheck today's complaints, Re-evaluation by your physician. - Problem is new. - Symptoms have improved. Signatures: Dispatcher [employer] EDMS Rj Montilla MD MD rn Bryson, James, RN RN jb4 Corrections: (The following items were deleted from the chart) 03:51 03:29 04/20/2019 03:29 Discharged to Home. Impression: Contusion of left knee. jb4 Condition is Stable. Forms are Medication Reconciliation Form, Thank You Letter, Antibiotic Education, Prescription Opioid Use. Follow up: Private Physician; When: As needed; Reason: Recheck today's complaints, Re-evaluation by your physician. Problem is new. Symptoms have improved. rn
[2019-04-20 04:28] VITALS: TEMP 97.4; O2SAT 99
[2019-04-20 04:29] VITALS: BP 137/79
--- NOTE | 2019-04-20 08:12 | RAD REPORT ---
EXAM DESCRIPTION: RAD - Knee Left 3 View - 04/20/2019 3:16 am CLINICAL HISTORY: Trip and fall, leg pain COMPARISON: None. FINDINGS: No fracture, dislocation or periosteal reaction.Minimal joint effusion is suspected. No juan int space narrowing. Spurring is seen at the quadriceps tendon insertion and patella tendon origin. T race edema is seen in the soft tissues anterior to the patella and patella tendon. IMPRESSION: Minimal joint effusion suspected. No acute bone finding. Clinical concerns for internal derangement or occult bony injury could be further assessed with MR im aging.
--- NOTE | 2019-04-20 08:15 | RAD REPORT ---
EXAM DESCRIPTION: RAD - Femur Left - 04/20/2019 3:11 am CLINICAL HISTORY: Trip and fall, knee and leg pain COMPARISON: None. FINDINGS: No fracture is identified. No dislocation or periosteal reaction. No AVN or focal femoral head abnormality seen. SI joint degenerative change to the left is minimal. There are mild degenerat ines changes at the hip joint. Benign sclerotic change at the pubic symphysis noted. No air or foreign body in the soft tissues. IMPRESSION: Negative left femur examination for acute finding.
== END 2019-04-20 03:51 | disposition home or self-care (01) ==
LOC: ER 02:19
DX: S80.02XA Contusion of left knee, initial encounter (principal); W19.XXXA Unspecified fall, initial encounter; Y93.01 Activity, walking, marching and hiking; Y92.9 Unspecified place or not applicable; Z79.82 Long term (current) use of aspirin; Z88.5 Allergy status to narcotic agent; Z85.42 Personal history of malignant neoplasm of other parts of uterus; I10 Essential (primary) hypertension
CPT/HCPCS: 99283

== ENCOUNTER 2020-12-08 10:45 | Observation (INO) | payer OTHER, SELFPAY ==
--- OUTSIDE RECORDS SUMMARY | 2020-12-08 10:48 | XMS REPORT | Continuity of Care Document ---
:1950 Author Organization [facility] t Address [address] [place] [address] Care Team Providers Name Role Phone DANA THOMAS Primary Care Physician Unavailable Carey VUONG Attending Clinician Viarj Thomas MD Attending Clinician Molina PÉREZ Attending Clinician Pedro RN, L Attending Clinician Unavailable GARETH CUELLAR Attending Clinician Unavailable GARETH CUELLAR Admitting Clinician Unavailable Payers Payer Name Policy Type Policy Effective Date Expiration Date [facility] ce Number AETNA MEDICAREAETNA [id number] 2019 MD Donaldson MEDICARE 00:00:00 [id number]/2019-PresentMedicar e Problems Condition Condition Condition Status Onset Resolution Last Treating Co mments Source Name Details Category Date Date Treatment Clinician Date 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 lesion lesion - LDL at target.- Continue aspirin 81 milligram s by mouth daily. Other Other Disease Active specified specified 04-25 Ronan rso polyneurop polyneurop 00:00: n athy athy 00 Essential Essential Disease Active Overview: (primary) (primary) 2-15 Formattin A nderso hypertensi hypertensi 00:00: g of this n on on 00 note might be different from the original. BP Readings from Last 3 Encounter s: 11/21/16 149/79 11/08/16 (!) 180/96 Last Assessmen t & Plan: Blood pressure currently not well optimized . Of note she was prescribe d amlodipin e at 5 milligram s by mouth daily during the last appointme nt but she never took that . I advised her to take that medicatio n at nighttime hold for SBP less than 100 . Continue the rest of the cardiac medicatio ns. Therapeut ic lifestyle changes has been reinforce d. She'll monitor blood pressure as well as heart rate and maintain a log for review on follow-up in 4 weeks. Morbid Morbid Disease Active Overview: (severe) (severe) -11/21/2016 And erso obesity obesity 00:00: Body mass n due to due to 00 index is excess excess 41.48 calories calories kg/(m^2). Weight: (!) 106.2 kg (234 lb 2.1 oz) [facility] body weight: 52.4 kg (115 lb 7.7 oz)Adjust ed ideal body weight: 73.9 kg (162 lb 15 oz) Last Assessmen t & Plan: Discussed diet and weight lossCurre ntly stable, no further recommend ations are being made in regards to this for the surgery. For the purposes of surgery and periopera tive evaluatio n, this particula r issue should not be a concern, continue any medicatio ns that are associate d with the issue. The patient may follow up with his / her PCP for managemen t of this issue. Malignant Malignant Disease Active neoplasm neoplasm 2-15 [facility] of of 00:00: n endometriu endometriu 00 m m Allergies, Adverse Reactions, Alerts Allergy Allergy Status Severity Reaction(s) Onset Inactive Treating Comm ents Source Name Type Date Date Clinician Codeine Propensi Active Nausea And 2018[facility] - [facility] reaction [facility] Morphine Propensi Active Nausea And 2018-[address] [facility] [address] [facility] 8[facility]10 [facility] - adverse 00:00: Medical reaction 00 Center s Naloxone Propensi Active Nausea And [address] [facility] to [facility]omiting 8[facility]10 [facility] - adverse 00:00: Medical reaction 00 [facility] Opium Propensi Active Nausea And [address] [facility] to Vomiting 8-10 [facility] - adverse 00:00: Medical reaction 00 [place] [facility] Family History Family Member Diagnosis Comments Start Date Stop Date Source Natural father Heart attack Lester son Natural mother Heart attack Lester son Natural mother Hypertension Lester son Social History Social Habit Start Date Stop Date Quantity Comments Source Sex Assigned At [facility] History of Current smoker MD Mateo meza tobacco use Tobacco use and 2018-05-10 2018-05-10 Never used [facility] kes - exposure 00:00:00 00:00:00 [facility] Alcohol intake 2018-05-10 2018-05-10 [facility] - 00:[facility]00 00:00:00 alcohol (finding) [facility] Alcohol Comment 2018-05-03 2018-05-[address] [facility] Bess kes - 00:00:00 00:00:00 [facility] Tobacco Comment 2016-11-08 2016-11-08 quit 30yrs ago MD Jazmin ackerman 00:00:00 00:00:00 Smoking Status Start Date Stop Date Source Former smoker 2020-09-09 00:00:00 2020-09-09 00:00:00 Lester son Never smoker [facility] St kes [facility] Medications Ordered Filled Start Stop Current Ordering Indication Dosage Frequency Signature Comments Components Source Medication Medication Date Date Medication? Clinician (SIG) Name Name aspirin 81 2019-09 Yes 81mg Take 81 mg M D mg EC 2-16 by mouth Anderso tablet 18:18: daily. n 56 Reported on 01/24/2017 acetaminoph 2019-09 Yes 650mg Take 650 M D en 2-16 mg by Anderso (TYLENOL) 18:18: mouth n 325 mg 56 every 6 tablet (six) hours as needed for mild pain. DIGOXIN 2019-09 Yes 125mg Take 125 MD ORAL 2-16 mg by Anderso 18:18: mouth n 56 daily. amLODIPine 2019-09 Yes 5mg Take 5 mg MD (NORVASC) 5 2-16 by mouth Ronan rso mg tablet 18:18: twice n 56 daily. triamterene 2019-09 Yes 1{tbl} Take 1 MD -hydroCHLOR 2-16 tablet by And erso Othiazide 18:18: mouth n (MAXZIDE-25 56 every ) 37.5 morning. mg-25 mg per tablet losartan 2019-09 Yes (COZAAR) 50 1-28 Anderso mg tablet 00:00: n 00 aspirin 81 Yes 81mg QD Take [address] [facility] EC 8-15 by mouth [facility] - tablet 10:18: daily. [facility] atenolol Yes 100mg QD Take [address] [facility] [address] (TENORMIN) 8-15 mg by [facility] - 100 MG 10:18: mouth Medical tablet 40 daily. Center chlorthalid Yes 25mg QD Take [address] [facility] one 8-15 by mouth [facility] - (HYGROTON) 10:18: daily. Medic al 25 MG 40 Center tablet Vital Signs Vital Name Observation Time Observation Value Comments Source Systolic blood pressure 2020-09-08 18:04:49 148 mm[Hg] MD Donaldson Diastolic blood pressure 2020-09-08 18:04:49 84 mm[Hg] MD Donaldson Heart rate 2020-09-08 18:04:49 62 /min MD Lester phelps Body temperature 2020-09-08 18:04:49 36.5 Clarisse MD Bernardo felder Respiratory rate 2020-09-08 18:04:49 18 /min MD Bernardo felder Body weight 2020-09-08 18:04:49 112.1 kg MD Letser phelps BMI 2020-09-08 18:04:49 42.98 kg/m2 MD Lester phelps Procedures Procedure Date / Time Performed Performing Clinician [facility] e CANCER ANTIGEN 125 2020-09-08 17:00:00 Christian Auguste MD on CANCER ANTIGEN 125 2020-03-05 15:20:21 Christian Auguste MD on Plan of Care Planned Activity Planned Date Details Comments Source Future Scheduled 2028-05-[address] [facility] - Test 00:00:00 malignant neoplasm of [facility] colon (procedure) [code = 758029245] Future Scheduled 2020-05-25 INFLUENZA VACCINE (#1) [facility] - Test 00:00:00 [code = INFLUENZA Medical Ce nter VACCINE (#1)] Future Scheduled 2018-09-[address] [facility] - Test 00:00:00 WELLNESS (YEAR 2 or Medical Center FIRST YEAR if no IPPE) [code = MEDICARE ANNUAL WELLNESS (YEAR 2 or FIRST YEAR if no IPPE)] Future Scheduled 2016 PNEUMOCOCCAL 65+ [facility] - Test 00:00:00 (1 of 1 - Medical Center [id number] PCV13) [code = PNEUMOCOCCAL 65+ YRS (1 of 1 - [id number] PCV13)] Future Scheduled [address] [facility] - Test 00:00:00 malignant neoplasm of [facility] breast (procedure) [code = 577810223] Results Test Description Test Time Test Comments Results Result Comments Source BASIC METABOLIC PANEL 2018-05-08 08:35:00 Test Item Value Reference Range Interpretation Comme nts SODIUM (BEAKER) (test code 137 meq/L 135-148 = 381) POTASSIUM (BEAKER) (test 4.3 meq/L 3.6-5.5 Spe cimen moderately code = 379) hemolyzed CHLORIDE (BEAKER) (test 100 meq/L 98-106 code = 382) CO2 (BEAKER) (test code = 25 meq/L 20-29 355) BLOOD UREA NITROGEN 14 mg/dL 10-26 (BEAKER) (test code = 354) CREATININE (BEAKER) (test 0.84 mg/dL 0.50-1.20 Sp ecimen moderately code = 358) hemolyzed GLUCOSE RANDOM (BEAKER) 98 mg/dL 70-110 (test code = 652) CALCIUM (BEAKER) (test code 10.0 mg/dL 8.5-10.5 = 697) EGFR (BEAKER) (test code = 82 mL/min/1.73 sq m ESTIMATED GFR IS NOT 1092) ACCURATE CRE ATININE CLEARANCE IN NV EDICTING GLOMERULAR FILT RATION RATE. ESTIMATED GFR IS NOT APPLICABLE FOR DIALYSIS PATIENTS. CBC W/PLT COUNT & AUTO [id number] 08:10:00 Test Item Value Reference Range Interpretation Comments WHITE BLOOD CELL COUNT (BEAKER) 5.6 K/ L 4.0-10.0 (test code = 775) RED BLOOD CELL COUNT (BEAKER) 4.22 M/ L 4.00-5.00 (test code = 761) HEMOGLOBIN (BEAKER) (test code = 12.5 GM/DL 12.0-15.0 410) HEMATOCRIT (BEAKER) (test code = 36.7 % 36.0-45.0 411) MEAN CORPUSCULAR VOLUME (BEAKER) 87.0 fL 82.0-99.0 (test code = 753) MEAN CORPUSCULAR HEMOGLOBIN 29.6 pg 27.0-33.0 (BEAKER) (test code = 751) MEAN CORPUSCULAR HEMOGLOBIN CONC 34.1 GM/DL 32.0-36.0 (BEAKER) (test code = 752) RED CELL DISTRIBUTION WIDTH 15.0 % 10.3-14.2 H (BEAKER) (test code = 412) PLATELET COUNT (BEAKER) (test 196 K/CU MM 150-430 code = 756) MEAN PLATELET VOLUME (BEAKER) 8.2 fL 6.5-10.5 (test code = 754) NUCLEATED RED BLOOD CELLS 0 /100 WBC 0-0 (BEAKER) (test code = 413) NEUTROPHILS RELATIVE PERCENT 64 % (BEAKER) (test code = 429) LYMPHOCYTES RELATIVE PERCENT 27 % (BEAKER) (test code = 430) MONOCYTES RELATIVE PERCENT 5 % (BEAKER) (test code = 431) EOSINOPHILS RELATIVE PERCENT 3 % (BEAKER) (test code = 432) BASOPHILS RELATIVE PERCENT 0 % (BEAKER) (test code = 437) NEUTROPHILS ABSOLUTE COUNT 3.60 K/ L 1.80-8.00 (BEAKER) (test code = 670) LYMPHOCYTES ABSOLUTE COUNT 1.50 K/ L 1.48-4.50 (BEAKER) (test code = 414) MONOCYTES ABSOLUTE COUNT (BEAKER) 0.30 K/ L 0.00-1.30 (test code = 415) EOSINOPHILS ABSOLUTE COUNT 0.20 K/ L 0.00-0.50 (BEAKER) (test code = 416) BASOPHILS ABSOLUTE COUNT (BEAKER) 0.00 K/ L 0.00-0.20 (test code = 417)
--- NOTE | 2020-12-08 11:03 | RAD REPORT ---
EXAM DESCRIPTION: CT - Ct Stroke Brain Wo Cont - 12/08/2020 10:57 am CLINICAL HISTORY: Slurred speech COMPARISON: none TECHNIQUE: Computed axial tomography of the head was obtained. All CT scans are performed using dose optimization technique as appropriate and may include automated exposure control or mA/KV adjustment according to patient size. FINDINGS: An intracranial bleed is not seen . The ventricles are normal in caliber. No extra-axial fluid collection is noted. Fluid within the sinuses/ mastoids is not seen. IMPRESSION: No acute intracranial abnormality is seen. If patient's symptoms persist MRI of the bra in would be recommended. Dr Christy of the emergency room was notified at 10:53 a.m. December 08, 2020
[2020-12-08 11:22] LABS: Basophils % 0.3 % (0-1.3); Hematocrit 37.1 % (36.0-45.0); Lymphocytes % 34.4 % (15.3-44.8); MPV 8.5 fL (7.6-11.3); RBC Red Blood Cell Count 4.23 M/uL (3.86-4.86)
[2020-12-08 11:23] LABS: Protime INR 0.99
[2020-12-08 11:34] LABS: BUN Blood Urea Nitrogen 27 mg/dL (7-18); Bicarbonate 30 mmol/L (21-32); Glucose Level 127 mg/dL (74-106); Potassium 3.1 mmol/L (3.5-5.1); Sodium Level 142 mmol/L (136-145); Troponin (Emerg Dept Use Only) < 0.02 ng/mL (0.0-0.045)
--- NOTE | 2020-12-08 11:53 | RAD REPORT ---
EXAM DESCRIPTION: Berto Single View12/08/2020 11:23 am CLINICAL HISTORY: Stroke-like symptoms COMPARISON: 2017 FINDINGS: The lungs appear clear of acute infiltrate. The heart is mildly to moderately enlarged IMPRESSION: No acute abnormalities displayed
--- NOTE | 2020-12-08 14:31 | RAD REPORT ---
EXAM DESCRIPTION: MRI - Brain W/Wo Cont - 12/08/2020 2:14 pm CLINICAL HISTORY: TIA, stroke-like symptoms, left-sided numbness and difficulty speaking COMPARISON: MRA Head Wo Cont dated 12/08/2020; MRA Neck W/Wo Cont dated 12/08/2020; Ct Stroke Brain Wo Cont dated 12/08/2020 TECHNIQUE: Sagittal and axial T1-weighted images were obtained. Axial PD/heavily T2-weighted and T2- FLAIR images were obtained along with axial DWI/ADC mapping sequences. Coronal heavily T2 weighted s equence obtained. Axial and coronal post-contrast T1-weighted images were also obtained. A 20 ml Mul tihance contrast following utilized. FINDINGS: No intracranial hemorrhage, mass or acute infarction. There is no edema or shift of midli ne structures. No extra-axial fluid collections. Rudd-matter/white matter junction is preserved. Sig nal voids are seen as a normal finding in the major intracranial vessels. Patient has minimal atrophy and chronic ischemic change. Brainstem, thalamus and basal ganglia tissues are spared. Post-contrast images show normal enhancement. No dural thickening. Mastoid air cells and paranasal sinuses are clear. IMPRESSION: Negative contrast enhanced MRI of the Brain for acute finding. Minimal atrophy chronic ischemic change.
--- NOTE | 2020-12-08 14:34 | RAD REPORT ---
EXAM DESCRIPTION: MRI - MRA Head Wo Cont - 12/08/2020 2:13 pm CLINICAL HISTORY: TIA, stroke-like symptoms, speech difficulty, left-sided numbness COMPARISON: CT head same date, MRI brain same date TECHNIQUE: Axial and coronal 3D [id number] image acquisition was performed. 3D rotational images were generated with source and reconstruction images reviewed. Horizontal and vertical axis rotation al views generated using MIP protocol. FINDINGS: No aneurysm or vascular malformation identifiable. Motion degradation limits the assessmen t of the internal carotid and basilar arteries at the skullbase. Distal most internal carotid arterie s show no significant disease. The anterior, middle and posterior cerebral artery distributions also without significant disease. No named branch occlusion or vasculitis changes. IMPRESSION: MRA head examination shows no significant or suspicious finding.
--- NOTE | 2020-12-08 14:39 | ER ---
Nurse's Notes [facility] Name: Misa Claros Age: 70 yrs Sex: Female : 1950 Arrival Date: 12/08/2020 Time: 10:51 Bed 4 Private MD: Diagnosis: Other transient cerebral ischemic attacks and related syndromes Presentation: 12/08 10:47 Chief complaint: EMS states: was getting ready to go get her COVID shot and started sv having left arm weakness and trouble speaking. On EMS arrival they noticed left sided facial droop and left arm \T\ leg weakness and drift. BS-185 BP 166/78 HR-98 98% RA. Coronavirus screen: Client denies travel out of the [place] in the last 14 days. At this time, the client does not indicate any symptoms associated with coronavirus-19. Ebola Screen: No symptoms or risks identified at this time. An acute neurological deficit is present. The charge nurse has been notified. The patients blood glucose was checked prior to arriving to the hospital and was found to be hyperglycemic. The charge nurse has been notified. Risk Assessment: Do you want to hurt yourself or someone else? Patient reports no desire to harm self or others. Onset of symptoms was December 08, 2020. 10:47 Method Of Arrival: EMS: [facility] sv 10:47 Acuity: VINOD 2 sv 10:48 Initial Sepsis Screen: Does the patient meet any 2 criteria? No. Patient's initial hb sepsis screen is negative. Does the patient have a suspected source of infection? No. Patient's initial sepsis screen is negative. Triage Assessment: 16:31 Neuro: Reports. hb Stroke Activation: Symptom onset < 3 hours Physician: Stroke Attending; Name: ; Notified At: ; Arrived At: Physician: Chief Stroke Resident; Name: ; Notified At: ; Arrived At: Physician: Stroke Resident; Name: ; Notified At: ; Arrived At: Physician: ED Attending; Name: Dr Christy; Notified At: 10:44; Arrived At: 10:58 Physician: ED Resident; Name: ; Notified At: ; Arrived At: Historical: - Allergies: 11:02 Codeine; sv 11:02 Morphine; sv - Home Meds: 11:06 gabapentin 300 mg oral cap [Active]; methylprednisolone 4 mg Oral tab [Active]; sv losartan 50 mg oral tab [Active]; amlodipine 5 mg tab 1 tab once daily [Active]; aspirin 81 mg Oral TbEC [Active]; Triamterene-Hydrochlorothiazid Oral [Active]; - PMHx: 11:02 Hypertension; uterine cancer; diagnosed a year ago; sciatica; Back pain; sv - PSHx: 11:02 Cholecystectomy; left eye cataract; sv - Immunization history:: Adult Immunizations up to date. - Social history:: Smoking status: Patient denies any tobacco usage or history of. Screenin:02 Abuse screen: Denies threats or abuse. Denies injuries from another. Nutritional hb screening: No deficits noted. Tuberculosis screening: No symptoms or risk factors identified. Fall Risk Total Rawls Fall Scale indicates Low Risk Score (25-44 pts). Fall prevention measures have been instituted. Side Rails Up X 2 Frequent Obs/Assesments occuring As available Patient and Family Educated on Fall Prevention Program and strategies. Assessment: 10:47 Reassessment: Pt taken to CT from EMS stretcher. sv 11:02 VAN Scoring: Arm Drift: Patients demonstrates NO arm weakness. Patient is VAN Negative. hb 11:05 General: Appears in no apparent distress. Pain: Denies pain. Neuro: Level of hb Consciousness is awake, alert, obeys commands, Oriented to person, place, time, situation. Cardiovascular: Capillary refill < 3 seconds Patient's skin is warm and dry. Rhythm is regular. Respiratory: Respiratory effort is even, unlabored, Respiratory pattern is regular, symmetrical. GI: No signs and/or symptoms were reported involving the gastrointestinal system. : No signs and/or symptoms were reported regarding the genitourinary system. EENT: No signs and/or symptoms were reported regarding the EENT system. Derm: Skin is pink, warm \T\ dry. Musculoskeletal: No deficits noted. 11:10 T-PA (Activase) Screening: Indications: Definite evidence of stroke, ischemic, embolic, hb or hypertensive: No. 11:11 Reassessment: Ambulated patient with minimal assistance, steady gait noted, witnessed hb by Dr. Christy. 11:25 Patient has been NPO before screening. The patient is alert, and able to follow hb commands. The patient does not exhibit slurred or garbled speech. The patient is not exhibiting difficulty speaking. The patient does not exhibit difficulty understanding words. The patient is able to swallow own secretions with no drooling or need for suction. Patient tolerated one teaspoon of water. No drooling, immediate coughing, gurgling, or clearing of the throat was noted. The patient tolerated 90mL of water. No drooling, immediate coughing, gurgling, or clearing of the throat was noted. The patient passed the bedside swallow screening. Oral medications may be given as ordered. Contact Physician for further diet orders. Provider notified of bedside swallow screening results: Emre Christy MD. 12:34 Reassessment: Patient appears in no apparent distress at this time. Patient and/or ss family updated on plan of care and expected duration. Pain level reassessed. Patient is alert, oriented x 3, equal unlabored respirations, skin warm/dry/pink. 13:30 Reassessment: Patient appears in no apparent distress at this time. Patient and/or hb family updated on plan of care and expected duration. Pain level reassessed. Patient is alert, oriented x 3, equal unlabored respirations, skin warm/dry/pink. 14:30 Reassessment: Patient appears in no apparent distress at this time. Patient and/or hb family updated on plan of care and expected duration. Pain level reassessed. Patient is alert, oriented x 3, equal unlabored respirations, skin warm/dry/pink. 15:01 Reassessment: Pt to US via wheelchair. hb 16:15 Reassessment: Patient appears in no apparent distress at this time. Patient and/or hb family updated on plan of care and expected duration. Pain level reassessed. Patient is alert, oriented x 3, equal unlabored respirations, skin warm/dry/pink. Admission ordered, awaiting room assignment at this time. 16:59 Reassessment: assisted patient to restroom VIA wheelchair. Pt has no complaints. Steady ss gait. Vital Signs: 10:47 Weight 110.18 kg (M); Height 5 ft. 4 in. (162.56 cm); sv 10:56 BP 161 / 83; Pulse 92; Resp 17; Pulse Ox 99% on R/A; Pain 0/10; hb 11:30 BP 133 / 65; Pulse 82; Resp 18; Pulse Ox 99% on R/A; hb 12:34 BP 130 / 68; Pulse 82; Resp 17; Pulse Ox 99% on R/A; Pain 0/10; ss 14:30 BP 149 / 65; Pulse 59; Resp 18; Pulse Ox 99% on R/A; Pain 0/10; hb 14:30 BP 133 / 85; Pulse 62; Resp 16; Temp 98.1; Pulse Ox 100% on R/A; Pain 0/10; hb 10:47 Body Mass Index 41.69 (110.18 kg, 162.56 cm) sv NIH Stroke Scale Scores: 11:07 NIHSS Score: 0 hb 11:28 NIHSS Score: 0 ps1 ED Course: 10:47 Maintain EMS IV. Dressing intact. Site clean \T\ dry. Gauge \T\ site: 18G L AC. sv 10:51 Patient arrived in ED. sv 10:55 Emre Christy MD is Attending Physician. ps1 10:57 CT Stroke Brain w/o Contrast In Process Unspecified. EDMS 11:01 Triage completed. sv 11:07 Arm band placed on. sv 11:15 Patient has correct armband on for positive identification. Placed in gown. Bed in low hb position. Call light in reach. 11:23 Stroke CXR 1 View In Process Unspecified. EDMS 11:23 Diamond Morrison, RN is Primary Nurse. hb 14:13 MRA Head Wo Cont In Process Unspecified. EDMS 14:14 MRA Neck W/Wo Cont In Process Unspecified. EDMS 14:14 Brain W/Wo Cont In Process Unspecified. EDMS 14:38 Mateo Chavez MD is Hospitalizing Provider. ps1 16:41 No provider procedures requiring assistance completed. Patient admitted, IV remains in ss place. Administered Medications: 14:46 Drug: Aspirin 325 mg Route: PO; hb 16:41 Follow up: Response: No adverse reaction ss Point of Care Testing: Blood Glucose: 11:24 Blood Glucose: 112 mg/dL; hb Ranges: Outcome: 14:38 Decision to Hospitalize by Provider. ps1 16:55 Admitted to Tele accompanied by tech, via wheelchair, room 207, with chart, Report hb called to Kimberly NICOLE 16:55 Condition: stable 16:55 Instructed on the need for admit, Demonstrated understanding of instructions. 17:16 Patient left the ED. hb NIH Stroke Scale - NIH Stroke Score Date: 12/08/2020 Time: 11:07 Total Score = 0 1a. Level of Consciousness (LOC) - 0(Alert) 1b. Level of Consciousness (LOC) (Year \T\ Age) - 0(Both) 1c. LOC Commands (Open \T\ Closes Eyes/Dietary Tech) - 0(Both) 2. Best Gaze (Lateral Gaze Paresis) - 0(Normal) 3. Visual Field Loss - 0(No visual loss) 4. Facial Palsy - 0(Normal) 5a. Left Arm: Motor (10-second hold) - 0(No drift) 5b. Right Arm: Motor (10-second hold) - 0(No drift) 6a. Left Leg: Motor (5-second hold - always test supine) - 0(No drift) 6b. Right Leg: Motor (5-second hold - always test supine) - 0(No drift) 7. Limb Ataxia (finger/nose \T\ heel/crabtree - test with eyes open) - 0(Absent) 8. Sensory Loss (pinprick arms/legs/face) - 0(Normal) 9. Best Language: Aphasia (description/naming/reading) - 0(No aphasia) 10. Dysarthria (speech clarity - read or repeat words) - 0(Normal) 11. Extinction and Inattention (visual/tactile/auditory/spatial/personal) - 0(No abnormality) Initials: NIH Stroke Scale - NIH Stroke Score Date: 12/08/2020 Time: 11:28 Total Score = 0 1a. Level of Consciousness (LOC) - 0(Alert) 1b. Level of Consciousness (LOC) (Year \T\ Age) - 0(Both) 1c. LOC Commands (Open \T\ Closes Eyes/Dietary Tech) - 0(Both) 2. Best Gaze (Lateral Gaze Paresis) - 0(Normal) 3. Visual Field Loss - 0(No visual loss) 4. Facial Palsy - 0(Normal) 5a. Left Arm: Motor (10-second hold) - 0(No drift) 5b. Right Arm: Motor (10-second hold) - 0(No drift) 6a. Left Leg: Motor (5-second hold - always test supine) - 0(No drift) 6b. Right Leg: Motor (5-second hold - always test supine) - 0(No drift) 7. Limb Ataxia (finger/nose \T\ heel/crabtree - test with eyes open) - 0(Absent) 8. Sensory Loss (pinprick arms/legs/face) - 0(Normal) 9. Best Language: Aphasia (description/naming/reading) - 0(No aphasia) 10. Dysarthria (speech clarity - read or repeat words) - 0(Normal) 11. Extinction and Inattention (visual/tactile/auditory/spatial/personal) - 0(No abnormality) Initials: ps1 Signatures: Dispatcher [employer] EDPat Johnson RN RN Gisella Rbuio RN RN Diamond Morrison RN RN hb Singer, Phillip, MD MD ps1 Corrections: (The following items were deleted from the chart) 11:24 11:02 Blood Glucose: Blood Glucose Afudvnk=018 mg/dL. hb hb 14:08 14:00 Reassessment: Patient appears in no apparent distress at this time. hb Patient and/or family updated on plan of care and expected duration. Pain level reassessed. Patient is alert, oriented x 3, equal unlabored respirations, skin warm/dry/pink. hb
--- NOTE | 2020-12-08 14:39 | EDPHYS ---
Physician Documentation [facility] Name: Misa Claros Age: 70 yrs Sex: Female : 1950 Arrival Date: 12/08/2020 Time: 10:51 Bed 4 Private MD: ED Physician Emre Christy HPI: 12/08 11:10 This 70 yrs old Black Female presents to ER via EMS with complaints of S/S of Possible ps1 Stroke. 11:10 Reported left facial weakness, left arm shaking and left leg. No symptoms on ps1 evaluation. 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 10:30. NIHSS 0. Was getting ready to get COVID vaccine and felt left arm shaking and dizziness. Denies urinary symptoms, cough, fever, NVD. . Historical: - Allergies: 11:02 Codeine; sv 11:02 Morphine; sv - Home Meds: 11:06 gabapentin 300 mg oral cap [Active]; methylprednisolone 4 mg Oral tab [Active]; sv losartan 50 mg oral tab [Active]; amlodipine 5 mg tab 1 tab once daily [Active]; aspirin 81 mg Oral TbEC [Active]; Triamterene-Hydrochlorothiazid Oral [Active]; - PMHx: 11:02 Hypertension; uterine cancer; diagnosed a year ago; sciatica; Back pain; sv - PSHx: 11:02 Cholecystectomy; left eye cataract; sv - Immunization history:: Adult Immunizations up to date. - Social history:: Smoking status: Patient denies any tobacco usage or history of. ROS: 11:10 Constitutional: Negative for fever, chills, and weight loss. ps1 11:10 Eyes: Negative for visual disturbance. 11:10 Cardiovascular: Negative for chest pain, orthopnea, palpitations. 11:10 Respiratory: Negative for cough, shortness of breath. 11:10 Abdomen/GI: Negative for nausea, vomiting, and diarrhea, constipation. 11:10 : Negative for urinary symptoms. 11:10 Neuro: Positive for weakness, of the left cheek, left arm, left leg. . Exam: 11:10 Radiologist reports: normal ps1 11:10 Constitutional: This is a well developed, well nourished patient who is awake, alert, and in no acute distress. Head/Face: Normocephalic, atraumatic. Eyes: Pupils equal round and reactive to light, extra-ocular motions intact. Lids and lashes normal. Conjunctiva and sclera are non-icteric and not injected. 11:10 Chest/axilla: Inspection: normal, Palpation: is normal. 11:10 Cardiovascular: Rate: normal, Rhythm: regular, Pulses: Pulses are 2+ in right radial artery. 11:10 Respiratory: the patient does not display signs of respiratory distress, Respirations: normal, Breath sounds: are clear throughout. 11:10 Abdomen/GI: Inspection: abdomen appears normal, obese Palpation: abdomen is soft and non-tender. 11:10 Musculoskeletal/extremity: Extremities: all appear grossly normal, with no appreciated pain with palpation. 11:10 Neuro: Orientation: is normal, Mentation: is normal, Cranial nerves: grossly normal, Cerebellar function: is grossly normal, Romberg testing is negative, normal finger to nose testing, heel to crabtree testing is normal, Motor: is normal, moves all fours, strength is normal, Gait: is steady, hesitant but able to ambulate without assitance. Vital Signs: 10:47 Weight 110.18 kg (M); Height 5 ft. 4 in. (162.56 cm); sv 10:56 BP 161 / 83; Pulse 92; Resp 17; Pulse Ox 99% on R/A; Pain 0/10; hb 11:30 BP 133 / 65; Pulse 82; Resp 18; Pulse Ox 99% on R/A; hb 12:34 BP 130 / 68; Pulse 82; Resp 17; Pulse Ox 99% on R/A; Pain 0/10; ss 14:30 BP 149 / 65; Pulse 59; Resp 18; Pulse Ox 99% on R/A; Pain 0/10; hb 14:30 BP 133 / 85; Pulse 62; Resp 16; Temp 98.1; Pulse Ox 100% on R/A; Pain 0/10; hb 10:47 Body Mass Index 41.69 (110.18 kg, 162.56 cm) sv NIH Stroke Scale Scores: 11:07 NIHSS Score: 0 hb 11:28 NIHSS Score: 0 ps1 MDM: 11:09 Patient medically screened. ps1 11:28 Differential diagnosis: CVA, TIA, anxiety about vaccination, metabolic derangements, ps1 and others. Data reviewed: vital signs, nurses notes, lab test result(s), radiologic studies. 12/08 10:56 Order name: Troponin (emerg Dept Use Only); Complete Time: 11:40 ps1 12/08 10:56 Order name: Basic Metabolic Panel; Complete Time: 11:40 ps1 12/08 10:56 Order name: CBC with Diff; Complete Time: 11:40 ps1 12/08 10:56 Order name: Protime (+inr); Complete Time: 11:40 ps1 12/08 11:12 Order name: Glucose, Ancillary Testing; Complete Time: 11:22 EDOH 12/08 14:42 Order name: COVID-19 : Document "Date of Symptom Onset" if Symptomatic. 12/08 14:46 Order name: CKMB Creatine Kinase MB EDOH 12/08 14:46 Order name: CKMB Creatine Kinase MB EDOH 12/08 14:46 Order name: Creatine Phosphokinase EDOH 12/08 14:46 Order name: Creatine Phosphokinase EDOH 12/08 14:46 Order name: Lipid Profile EDOH 12/08 14:46 Order name: Lipid Profile EDOH 12/08 14:46 Order name: Troponin I EDOH 12/08 14:46 Order name: Troponin I EDOH 12/08 10:52 Order name: CT Stroke Brain w/o Contrast; Complete Time: 11:08 sv 12/08 10:56 Order name: Stroke CXR 1 View; Complete Time: 12:08 ps1 12/08 10:56 Order name: EKG; Complete Time: 10:57 [facility] 12/08 10:56 Order name: Accucheck; Complete Time: 11:33 ps1 12/08 10:56 Order name: Cardiac monitoring; Complete Time: 11:34 [facility] 12/08 12:23 Order name: MRA Head Wo Cont; Complete Time: 14:37 EDOH 12/08 12:25 Order name: MRA Neck W/Wo Cont; Complete Time: 15:07 EDOH 12/08 12:25 Order name: Brain W/Wo Cont; Complete Time: 14:34 EDOH 12/08 14:45 Order name: NPO EDOH 12/08 14:46 Order name: NPO EDOH 12/08 14:46 Order name: NPO EDOH 12/08 14:46 Order name: Echo with Doppler EDOH 12/08 14:46 Order name: Carotid Artery Bilateral; Complete Time: 16:34 EDOH 12/08 16:21 Order name: SARS-COV-2 RT PCR; Complete Time: 16:34 EDMS 12/08 10:56 Order name: EKG - Nurse/Tech; Complete Time: 11:58 ps1 12/08 10:56 Order name: IV Saline Lock; Complete Time: 11:34 ps1 12/08 10:56 Order name: Labs collected and sent; Complete Time: 11:34 ps1 12/08 10:56 Order name: NPO; Complete Time: 11:34 ps1 12/08 10:56 Order name: O2 Per Protocol; Complete Time: 11:34 ps1 12/08 10:56 Order name: O2 Sat Monitoring; Complete Time: 11:34 ps1 12/08 10:56 Order name: Stroke Swallow Screen; Complete Time: 11:34 ps1 Administered Medications: 14:46 Drug: Aspirin 325 mg Route: PO; hb 16:41 Follow up: Response: No adverse reaction ss Point of Care Testing: Blood Glucose: 11:24 Blood Glucose: 112 mg/dL; hb Ranges: Critical Glucose Levels:Adult <50 mg/dl or >400 mg/dl <40 mg/dl or >180 mg/dl Disposition: 12/08/20 14:38 Hospitalization ordered by Mateo Chavez for Observation. Preliminary diagnosis is Other transient cerebral ischemic attacks and related syndromes. - Bed requested for Telemetry/MedSurg (observation). - Status is Observation. hb - Condition is Stable. - Problem is new. - Symptoms are resolved. NIH Stroke Scale - NIH Stroke Score Date: 12/08/2020 Time: 11:07 Total Score = 0 1a. Level of Consciousness (LOC) - 0(Alert) 1b. Level of Consciousness (LOC) (Year \\T\\ Age) - 0(Both) 1c. LOC Commands (Open \\T\\ Closes Eyes/Smelter Charger) - 0(Both) 2. Best Gaze (Lateral Gaze Paresis) - 0(Normal) 3. Visual Field Loss - 0(No visual loss) 4. Facial Palsy - 0(Normal) 5a. Left Arm: Motor (10-second hold) - 0(No drift) 5b. Right Arm: Motor (10-second hold) - 0(No drift) 6a. Left Leg: Motor (5-second hold - always test supine) - 0(No drift) 6b. Right Leg: Motor (5-second hold - always test supine) - 0(No drift) 7. Limb Ataxia (finger/nose \\T\\ heel/crabtree - test with eyes open) - 0(Absent) 8. Sensory Loss (pinprick arms/legs/face) - 0(Normal) 9. Best Language: Aphasia (description/naming/reading) - 0(No aphasia) 10. Dysarthria (speech clarity - read or repeat words) - 0(Normal) 11. Extinction and Inattention (visual/tactile/auditory/spatial/personal) - 0(No abnormality) Initials: NIH Stroke Scale - NIH Stroke Score Date: 12/08/2020 Time: 11:28 Total Score = 0 1a. Level of Consciousness (LOC) - 0(Alert) 1b. Level of Consciousness (LOC) (Year \\T\\ Age) - 0(Both) 1c. LOC Commands (Open \\T\\ Closes Eyes/Smelter Charger) - 0(Both) 2. Best Gaze (Lateral Gaze Paresis) - 0(Normal) 3. Visual Field Loss - 0(No visual loss) 4. Facial Palsy - 0(Normal) 5a. Left Arm: Motor (10-second hold) - 0(No drift) 5b. Right Arm: Motor (10-second hold) - 0(No drift) 6a. Left Leg: Motor (5-second hold - always test supine) - 0(No drift) 6b. Right Leg: Motor (5-second hold - always test supine) - 0(No drift) 7. Limb Ataxia (finger/nose \\T\\ heel/crabtree - test with eyes open) - 0(Absent) 8. Sensory Loss (pinprick arms/legs/face) - 0(Normal) 9. Best Language: Aphasia (description/naming/reading) - 0(No aphasia) 10. Dysarthria (speech clarity - read or repeat words) - 0(Normal) 11. Extinction and Inattention (visual/tactile/auditory/spatial/personal) - 0(No abnormality) Initials: ps1 Signatures: Dispatcher [employer] EDPat Johnson RN RN sv Woody, Diana RN Gisella Elizalde RN RN ss Baxter, Heather, RN RN hb Singer, Phillip, MD MD ps1 Corrections: (The following items were deleted from the chart) 12:23 11:28 MR STROKE PROTOCOL+MRI.RAD.MAO ordered. EDMS EDMS 16:27 14:38 Hospitalization Ordered by Mateo Chavez MD for Observation. Preliminary dw diagnosis is Other transient cerebral ischemic attacks and related syndromes. Bed requested for Telemetry/MedSurg (observation). Status is Observation. Condition is Stable. Problem is new. Symptoms are resolved. ps1 17:16 16:27 12/08/2020 14:38 Hospitalization Ordered by Mateo Chavez MD for hb Observation. Preliminary diagnosis is Other transient cerebral ischemic attacks and related syndromes. Bed requested for Telemetry/MedSurg (observation). Status is Observation. Condition is Stable. Problem is new. Symptoms are resolved. dw
--- NOTE | 2020-12-08 14:40 | RAD REPORT ---
EXAM DESCRIPTION: MRI - MRA Neck W/Wo Cont - 12/08/2020 2:14 pm CLINICAL HISTORY: TIA, stroke-like symptoms with left-sided weakness and speech difficulty COMPARISON: MRI brain same date, CT head same date TECHNIQUE: MR angiography of the cervical vasculature performed. Coronal imaging plane acquisition u tilized. A 20 MultiHance contrast volume was utilized. Coronal reformatted images were generated and reviewed. Vertical axis 3D rotational projections obtained using maximum intensity projection protoco l. FINDINGS: Aortic arch is bovine configuration with no origins stenosis. Bilateral subclavian arterie s show no suspicious findings. Vertebral artery origins also unremarkable. No dissection is present. No stenosis or significant atherosclerotic disease identifiable. Bilateral internal carotid arteries are tortuous. Right dominant vertebral artery in the left vertebral artery show no dissection or significant atherosclerotic change. No basilar artery abnormality. IMPRESSION: MRA neck imaging shows no dissection, stenosis or acutely significant finding.
[2020-12-08] MEDS ORDERED: ASPIRIN 81 MG CHEWABLE TABLET ONE (14:46)
[2020-12-08] MEDS ORDERED: ASPIRIN EC 325 MG TABLET PO ONE (14:47)
[2020-12-08] MEDS ORDERED: NA CHLORIDE 0.9% 1,000 ML IV SCH ×2 (15:00→20:55)
--- NOTE | 2020-12-08 16:20 | RAD REPORT ---
EXAM DESCRIPTION: US - CP - 12/08/2020 3:51 pm CLINICAL HISTORY: stroke eval COMPARISON: MRA Neck W/Wo Cont dated 12/08/2020 TECHNIQUE: Real-time sonographic evaluation of bilateral carotid and vertebral systems was performed . Rudd scale and Doppler interrogation were performed with waveform tracing bilaterally. FINDINGS: Normal high resistance waveforms are noted in both external carotid arteries. The common c arotid arteries and internal carotid arteries show normal low resistance waveforms. Minimal plaquing changes are present with no significant luminal narrowing. No dissection changes heavenly ntifiable. Carotid artery tortuosity noted. Peak systolic and end diastolic velocity values and the I CA/CCA ratios are in the non-hemodynamically significant range. Antegrade flow seen in both vertebral arteries. Velocity values and ratios were recorded and are retained in the patient's imaging records. IMPRESSION: No significant atherosclerotic changes noted. No evidence of a hemodynamically significant stenosis.
[2020-12-08 18:42] VITALS: BMI 41.7
[2020-12-08] MEDS: CLOPIDOGREL 75 MG TABLET PO SCH (20:55)
[2020-12-08] MEDS ORDERED: AMLODIPINE 5 MG TAB PO SCH (21:00)
[2020-12-08 22:20] LABS: MPV 8.2 fL (7.6-11.3)
[2020-12-08 22:31] LABS: Platelet Estimate ND
[2020-12-08] MEDS: GABAPENTIN 300 MG CAP PO SCH (22:40)
[2020-12-08 23:52] VITALS: O2SAT 97
[2020-12-09 05:30] VITALS: TEMP 96.9
[2020-12-09 07:07] LABS: CKMB Creatine Kinase MB 1.4 ng/mL (0.3-3.6); Troponin I 0.05 ng/mL (0.0-0.045)
[2020-12-09] MEDS ORDERED: MAXZIDE (HCTZ 25/TRIAMTERENE 37.5MG) TAB PO SCH (09:00)
[2020-12-09] MEDS: CLOPIDOGREL 75 MG TABLET PO SCH (09:00)
[2020-12-09] MEDS: GABAPENTIN 300 MG CAP PO SCH (09:00)
[2020-12-09] MEDS ORDERED: LOSARTAN POTASSIUM 50 MG TABLET PO SCH (09:00)
[2020-12-09] MEDS ORDERED: AMLODIPINE 10 MG TAB PO SCH (09:00)
[2020-12-09] MEDS ORDERED: ENOXAPARIN 40 MG/0.4 ML SQ SCH (09:00)
[2020-12-09 09:35] VITALS: BP 125/59
[2020-12-09] MEDS ORDERED: CLOPIDOGREL 75 MG TABLET PO SCH (20:14)
--- NOTE | 2020-12-09 20:51 | P.SSS ---
Patient History Date of Service: 12/09/20 Reason for admission: UNABLE TO FIND WORDS History of Present Illness: MRS BURNS IS A PATIENT WITH HTN, CAD, OBESITY COMES WITH DIFFICULTY IN NAMING AND RECOVERED WITHIN AN HOUR. I ASKED THEM TO START HER ON PLAVIX WITH SUSPOICION OF TIA. HER MRI AND MRA ARE NEGATIVE FOR STROKE. SHE IS STABLE TO GO HOME ON PLAVIX AND SHE IS ALREADY ON STATIN. Allergies codeine [Codeine] Allergy (Intermediate, Verified 05/27/18 12:45) VOMITING morphine Allergy (Verified 06/13/18 06:44) Nausea/Vomiting Home medications list reviewed: Yes Home Medications: Amlodipine [Norvasc*] 5 mg PO BID #60 tab 06/13/18 Gabapentin 300 mg PO Q12HR 12/08/20 Losartan Potassium 50 mg PO DAILY 12/08/20 Clopidogrel Bisulfate [Plavix*] 75 mg PO DAILY #90 tablet 12/09/20 Losartan Potassium [Cozaar*] 50 mg PO DAILY tablet 12/09/20 Spironolactone 25 mg PO DAILY #90 tablet 12/09/20 - Past Medical/Surgical History Has patient received pneumonia vaccine in the past: No Diabetic: No -: uterine cancer -: htn -: hysterectomy -: c section -: lap siobhan - Family History Mother -: Heart disease, Other (see notes) Notes: heart attack Father -: Heart disease, Other (see notes) Notes: heart attack - Social History Smoking Status: Former smoker Alcohol use: Yes CD- Drugs: No Caffeine use: Yes Place of Residence: Home Review of Systems 10-point ROS is otherwise unremarkable Physical Examination - Vital Signs Temperature: 96.9 F Blood Pressure: 125/59 Pulse: 60 Respirations: 16 Pulse Ox (%): 98 - Physical Exam General: Alert, In no apparent distress, Obese HEENT: Atraumatic, PERRLA, Mucous membr. moist/pink, EOMI, Sclerae nonicteric Neck: Supple, 2+ carotid pulse no bruit, No LAD, Without JVD or thyroid abnormality Respiratory: Clear to auscultation bilaterally, Normal air movement Cardiovascular: Regular rate/rhythm, Normal S1 S2 Gastrointestinal: Normal bowel sounds, No tenderness Musculoskeletal: No tenderness Integumentary: No rashes Neurological: Normal gait, Normal speech, Normal strength at 5/5 x4 extr, Normal tone, Normal affect Lymphatics: No axilla or inguinal lymphadenopathy - Diagnosis (Problem(s)) (1) TIA (transient ischemic attack) Status: Acute Plan: START ON PLAVIX HAS PRAVASTATIN FROM OFFICE COMPUTER. STABLE TO GO HOME.. SHE IS NOT IN A FIB ANY LONGER. - Disposition Disposition: ROUTINE DISCHARGE Condition: FAIR Diet: AHA Activity: Ad yusef
--- NOTE | 2020-12-10 10:06 | ECHO ---
HEIGHT: 5 ft 4 in WEIGHT: 242 lb 14.4 oz DATE OF STUDY: 12/09/[address]: Emre Christy DO 2-DIMENSIONAL: YES M.MODE: YES DOPPLER: YES COLOR FLOW: YES TDS: NO PORTABLE: NO DEFINITY: NO BUBBLE STUDY: NO DIAGNOSIS: STROKE EVALUATION CARDIAC HISTORY: CATHERIZATION: NO SURGERY: NO PROSTHETIC VALVE: NO PACEMAKER: NO MEASUREMENTS (cm) DIASTOLIC (NORMALS) SYSTOLIC (NORMALS) IVSd 1.2 (0.6-1.2) LA Diam 2.8 (1.9-4.0) LVEF 63% LVIDd 4.1 (3.5-5.7) LVIDs 2.7 (2.0-3.5) %FS 34% LVPWd 1.2 (0.6-1.2) Ao Diam 2.6 (2.0-3.7) 2 DIMENSIONAL ASSESSMENT: RIGHT ATRIUM: NORMAL LEFT ATRIUM: NORMAL RIGHT VENTRICLE: NORMAL LEFT VENTRICLE: NORMAL TRICUSPID VALVE: MITRAL VALVE: NORMAL PULMONIC VALVE: AORTIC VALVE: NORMAL PERICARDIAL EFFUSION: NONE AORTIC ROOT: NORMAL LEFT VENTRICULAR WALL MOTION: NORMAL DOPPLER/COLOR FLOW: SEE BELOW. COMMENTS: NORMAL LEFT VENTRICULAR EJECTION FRACTION 55-60% WITH NORMAL WALL MOTION. MILD TRICUSPID REGURGITATION. MILD PULMONARY INSUFFIENCY. TECHNOLOGIST: Carlos WINTERS
== END 2020-12-09 12:00 | disposition home or self-care (01) ==
LOC: ER 10:45 → ERHOLD 15:36 → 2ND 16:58
PROVIDERS: ADMIT Internal Medicine; ATTEND Internal Medicine
DX: G45.9 Transient cerebral ischemic attack, unspecified (principal); Z87.891 Personal history of nicotine dependence; I10 Essential (primary) hypertension; I25.10 Atherosclerotic heart disease of native coronary artery without angina pectoris; E66.9 Obesity, unspecified; Z85.42 Personal history of malignant neoplasm of other parts of uterus; Z20.822 Contact with and (suspected) exposure to COVID-19; R94.31 Abnormal electrocardiogram [ECG] [EKG]
CPT/HCPCS: 93005; 93306; 85025; 80048; 36415; 82550; 85049; 85610; 80061; 82947; 84484 ×2; 82553; 70450; 71045; 93880; 70553; 70544; 70549; 99285; U0003; A9577; J1650; J7030; G0378

== ENCOUNTER 2020-12-20 19:36 | Emergency (ER) | payer OTHER ==
--- OUTSIDE RECORDS SUMMARY | 2020-12-20 19:39 | XMS REPORT | Continuity of Care Document ---
:1950 Author Organization [facility] t Address [address] [place] [address] Care Team Providers Name Role Phone DANA THOMAS Primary Care Physician Unavailable Carey VUONG Attending Clinician Viraj Thomas MD Attending Clinician Molina PÉREZ Attending Clinician Pedro RN, L Attending Clinician Unavailable GARETH CUELLAR Attending Clinician Unavailable GARETH CUELLAR Admitting Clinician Unavailable Payers Payer Name Policy Type Policy Effective Date Expiration Date [facility] ce Number AETNA MEDICAREAETNA [id number] 2019 MD Donaldson MEDICARE 00:00:00 [id number]/2019-PresentMedicar e Problems Condition Condition Condition Status Onset [...] (!) 106.2 kg (234 lb 2.1 oz) [place] body weight: 52.4 kg (115 lb 7.7 [...] Date Clinician Codeine Propensi Active Nausea And 2018-[address] [facility] Morphine Propensi Active Nausea And 2018-[address] [facility] [address] [facility] reaction [facility] Naloxone Propensi Active Nausea And 2018-[address] [facility] [address] [facility]: [facility] reaction [facility] Opium Propensi Active Nausea And 2018-[address] [facility] Medical reaction 00 [facility] Family History Family Member Diagnosis Comments Start Date Stop Date Source Natural father Heart attack MD Batista son Natural mother Heart attack Lester son Natural mother Hypertension Lester son Social History Social Habit Start Date Stop Date Quantity Comments Source History of tobacco Current smoker MD Donaldson use Sex Assigned At MD [place] on Tobacco use and 2020-09-09 2020-09-09 Never used MD [place] on exposure 00:00:00 00:00:00 Alcohol intake 2020-09-09 2020-09-09 Current drinker MD Jazmin ackerman 00:00:00 00:00:00 of alcohol (finding) Tobacco Comment 2016-11-08 2016-11-08 quit 30yrs ago MD Jazmin ackerman 00:00:00 00:00:00 Alcohol Comment 2016-11-08 2016-11-08 social drinker MD Jazmin ackerman 00:00:00 00:00:00 Smoking Status Start Date Stop Date Source Former smoker 2020-09-09 00:00:00 2020-09-09 00:00:00 MD Batista son Never smoker [facility] Medications Ordered Filled Start Stop Current Ordering [...] hours as needed for mild pain. DIGOXIN 2020-1 Yes 125mg Take 125 MD ORAL 2-16 [...] mg tablet 00:00: n 00 aspirin 81 2017- Yes 81mg QD Take 81 mg C [...] Body weight 2020-09-08 18:04:49 112.1 kg MD Lester phelps BMI 2020-09-08 18:04:49 42.98 kg/m2 MD Lester phelps Procedures Procedure Date / Time Performed Performing Clinician [facility] e CANCER ANTIGEN 125 2020-09-08 17:00:00 Christian Auguste MD on CANCER ANTIGEN 125 2020-03-05 15:20:21 Christian Auguste MD on Plan of Care Planned Activity Planned Date Details Comments Source Future Scheduled 2028-05-[address] [facility] - Test 00:00[facility]00 [facility] colon (procedure) [code = 373391708] Future Scheduled 2020-05-25 INFLUENZA VACCINE (#1) C [...] 00:00:00 (1 of 1 - [facility] [id number] PCV13) [code = PNEUMOCOCCAL 65+ YRS (1 of 1 - [id number] PCV13)] Future Scheduled [address] [facility] - Test 00:00:00 malignant neoplasm of [facility] breast (procedure) [code = 714856322] Results Test Description Test Time Test Comments [...] NOT 1092) ACCURATE CRE ATININE CLEARANCE IN [place] EDICTING GLOMERULAR FILT RATION RATE. ESTIMATED GFR IS NOT APPLICABLE FOR DIALYSIS PATIENTS. CBC W/PLT COUNT & AUTO [id number] 08:10:00 Test Item Value Reference Range Interpretation [...]
[2020-12-20] MEDS ORDERED: CLINDAMYCIN 900MG/D5W 900 MG/50 ML IVPB IV ONE (21:37)
[2020-12-20] MEDS ORDERED: TRAMADOL HCL 50 MG TAB ONE (22:16)
[2020-12-20 23:37] LABS: Absolute Lymphocytes (CBC) 1.2 K/uL (0.7-4.9); Basophils % 0.2 % (0-1.3); Hematocrit 33.8 % (36.0-45.0); Lymphocytes % 13.1 % (15.3-44.8); MPV 8.1 fL (7.6-11.3); RBC Red Blood Cell Count 3.88 M/uL (3.86-4.86)
--- NOTE | 2020-12-21 00:09 | EDPHYS ---
Physician Documentation [facility] Name: Misa Claros Age: 70 yrs Sex: Female : 1950 Arrival Date: 12/20/2020 Time: 19:41 Bed 19 Private MD: Mateo Chavez V ED Physician Aram Landers HPI: 12/20 23:16 This 70 yrs old Black Female presents to ER via Wheelchair with complaints of Wound kb Check. 23:16 the patient presents with a swollen area of the left hamstring. Description: draining, kb erythematous, swollen, warm. The patient has not experienced similar symptoms in the past. The patient has not recently seen a physician. 23:17 Onset: The symptoms/episode began/occurred 5 day(s) ago. Possible cause(s): unknown. kb Associated signs and symptoms: Pertinent positives: drainage, erythema, swelling. Modifying factors: the symptoms are alleviated by nothing, the symptoms are aggravated by pressure, sitting, touching. Severity of symptoms: At their worst the symptoms were moderate, in the emergency department the symptoms are unchanged. Pt reports swelling, redness, warmth, pain and bleeding from back of left thigh. States it started and bleeding began Sunday. Called Dr Chavez today and was started on an antibiotic.. Historical: - Allergies: 20:07 Codeine; ca1 20:07 Morphine; ca1 - PMHx: 20:07 Back pain; Hypertension; sciatica; uterine cancer; diagnosed a year ago; ca1 - PSHx: 20:07 Cholecystectomy; left eye cataract; ca1 - Immunization history:: Flu vaccine is not up to date. - Social history:: Smoking status: Patient denies any tobacco usage or history of. ROS: 23:07 Cardiovascular: Negative for chest pain, palpitations, and edema, Respiratory: Negative kb for shortness of breath, cough, wheezing, and pleuritic chest pain, Abdomen/GI: Negative for abdominal pain, nausea, vomiting, diarrhea, and constipation, MS/Extremity: Negative for injury and deformity, Neuro: Negative for headache, weakness, numbness, tingling, and seizure. 23:07 Constitutional: Positive for chills. 23:07 Skin: Positive for abscess, erythema, swelling, of the left hamstring. Exam: 23:06 Constitutional: This is a well developed, well nourished patient who is awake, alert, kb and in no acute distress. Head/Face: Normocephalic, atraumatic. Cardiovascular: Regular rate and rhythm with a normal S1 and S2. No gallops, murmurs, or rubs. No pulse deficits. Respiratory: Respirations even and unlabored. No increased work of breathing, no retractions or nasal flaring. Abdomen/GI: Soft, non-tender. No distention MS/ Extremity: Pulses equal, no cyanosis. Neurovascular intact. Full, normal range of motion. Neuro: Awake and alert, GCS 15, oriented to person, place, time, and situation. Moves all extremities. Normal gait. 23:06 Abdomen/GI: Rectal exam: rectal tone normal, Stool: guaiac negative. 23:06 Skin: cellulitis, that is moderate, on the left hamstring. Vital Signs: 20:04 BP 126 / 58; Pulse 85; Resp 16 S; Temp 98.3(TE); Pulse Ox 96% on R/A; Weight 108.86 kg ca1 (R); Height 5 ft. 4 in. (162.56 cm) (R); Pain 10/10; 23:00 BP 124 / 61; Pulse 79; Resp 18; Pulse Ox 98% on R/A; Pain 7/10; em 20:04 Body Mass Index 41.20 (108.86 kg, 162.56 cm) ca1 MDM: 21:11 Patient medically screened. kb 23:06 Data reviewed: vital signs, nurses notes. Data interpreted: Pulse oximetry: on room air kb is 96 %. Interpretation: normal. 12/21 00:02 ED course: PT denies any bleeding, dark stools, abd pain. Guiac stool negative. CBC kb repeated due to significant difference in HGB from 12/08/20 and today. . ED course: US shows no drainage abscess. Pt educated to continue antibiotics prescribed by Dr Chavez and keep follow up appt in his office. Verbal understanding received. . 00:08 Counseling: I had a detailed discussion with the patient and/or guardian regarding: the kb historical points, exam findings, and any diagnostic results supporting the discharge/admit diagnosis, lab results, radiology results, the need for outpatient follow up, a family practitioner, to return to the emergency department if symptoms worsen or persist or if there are any questions or concerns that arise at home. 12/20 21:16 Order name: Basic Metabolic Panel; Complete Time: 22:13 kb 12/20 21:16 Order name: Blood Culture Adult (2) kb 12/20 22:14 Order name: Type And Screen; Complete Time: 00:10 kb 12/20 22:14 Order name: Lactate; Complete Time: 23:05 kb 12/20 22:14 Order name: Procalcitonin; Complete Time: 23:29 kb 12/20 21:16 Order name: IV Start; Complete Time: 21:49 kb 12/20 22:37 Order name: US Extrmty Nonvasular Limited em 12/20 22:45 Order name: CBC with Diff kb 12/20 22:45 Order name: CBC with Automated Diff; Complete Time: 00:24 EDMS Administered Medications: 12/20 20:00 Drug: Clindamycin 900 mg Route: IVPB; Infused Over: 30 mins; Site: left hand; em 23:55 Follow up: IV Status: Completed infusion em 22:06 Drug: traMADol 25 mg Route: PO; em 23:53 Follow up: Response: No adverse reaction; Marked relief of symptoms; Pain is decreased em Disposition: 12/21 08:16 Co-signature as Attending Physician, Aram Landers MD I agree with the assessment and tw4 plan of care. Disposition: 12/21/20 00:09 Discharged to Home. Impression: Cellulitis of left lower limb. - Condition is Stable. - Discharge Instructions: Cellulitis, Adult, Rduf-wi-[id number]. - Prescriptions for Tramadol 50 mg Oral Tablet - take 1 tablet by ORAL route every 8 hours as needed; 12 tablet. - Medication Reconciliation Form, Thank You Letter, Antibiotic Education, Prescription Opioid Use form. - Follow up: Private Physician; When: 2 - 3 days; Reason: Recheck today's complaints, Continuance of care, Re-evaluation by your physician. Follow up: Emergency Department; When: As needed; Reason: Worsening of condition. - Notes: Continue antibiotics previously prescribed by Dr Chavez Signatures: Dispatcher [employer] EDAylin Eason, Harlan Brown RN RN em Wadley, Terrence, MD MD 4 Arlene Mina RN RN ca1 Corrections: (The following items were deleted from the chart) 00:12/20 21:16 CBC+H.LAB.BRZ ordered. EDMS EDMS 12/21 00:22 12/20 22:02 CBC+H.LAB.BRZ reviewed. anamika EDOK 12/21 00:50 00:09 12/21/2020 00:09 Discharged to Home. Impression: Cellulitis of left lower limb. em Condition is Stable. Forms are Medication Reconciliation Form, Thank You Letter, Antibiotic Education, Prescription Opioid Use. Follow up: Private Physician; When: 2 - 3 days; Reason: Recheck today's complaints, Continuance of care, Re-evaluation by your physician. Follow up: Emergency Department; When: As needed; Reason: Worsening of condition. anamika
--- NOTE | 2020-12-21 00:09 | ER ---
Nurse's Notes [facility] Name: Misa Claros Age: 70 yrs Sex: Female : 1950 Arrival Date: 12/20/2020 Time: 19:41 Bed 19 Private MD: Mateo Chavez V Diagnosis: Cellulitis of left lower limb Presentation: 12/20 20:04 Chief complaint: Patient's son or daughter states: Abscess on back of L thigh started ca1 . Was prescribed ABX by PCP today. Coronavirus screen: Client denies travel out of the [place] in the last 14 days. At this time, the client does not indicate any symptoms associated with coronavirus-19. Ebola Screen: Patient negative for fever greater than or equal to 101.5 degrees Fahrenheit, and additional compatible Ebola Virus Disease symptoms Patient denies exposure to infectious person. Patient denies travel to an Ebola-affected area in the 21 days before illness onset. No symptoms or risks identified at this time. Initial Sepsis Screen: Does the patient meet any 2 criteria? No. Patient's initial sepsis screen is negative. Does the patient have a suspected source of infection? No. Patient's initial sepsis screen is negative. Risk Assessment: Do you want to hurt yourself or someone else? Patient reports no desire to harm self or others. Onset of symptoms was December 20, 2020. 20:04 Method Of Arrival: Wheelchair ca1 20:04 Acuity: VINOD 3 ca1 Historical: - Allergies: 20:07 Codeine; ca1 20:07 Morphine; ca1 - PMHx: 20:07 Back pain; Hypertension; sciatica; uterine cancer; diagnosed a year ago; ca1 - PSHx: 20:07 Cholecystectomy; left eye cataract; ca1 - Immunization history:: Flu vaccine is not up to date. - Social history:: Smoking status: Patient denies any tobacco usage or history of. Screenin:08 Abuse screen: Denies threats or abuse. Nutritional screening: No deficits noted. em Tuberculosis screening: No symptoms or risk factors identified. Fall Risk None identified. Assessment: 21:30 General: Appears in no apparent distress. uncomfortable, Behavior is calm, cooperative, em appropriate for age. Pain: Complains of pain in left hamstring Pain currently is 10 out of 10 on a pain scale. Neuro: Level of Consciousness is awake, alert, obeys commands, Oriented to person, place, time, situation. Cardiovascular: Capillary refill < 3 seconds Patient's skin is warm and dry. Respiratory: Airway is patent Respiratory effort is even, unlabored, Respiratory pattern is regular, symmetrical. GI: Abdomen is round non-distended, obese. Derm: Skin is intact, is thin, Skin is pink, warm \T\ dry. Wound noted left hamstring. Musculoskeletal: Capillary refill < 3 seconds, Range of motion: intact in all extremities. 22:00 Reassessment: request something for pain, provider notified. em 23:00 Reassessment: Patient appears in no apparent distress at this time. Patient and/or em family updated on plan of care and expected duration. Pain level reassessed. Patient is alert, oriented x 3, equal unlabored respirations, skin warm/dry/pink. Vital Signs: 20:04 BP 126 / 58; Pulse 85; Resp 16 S; Temp 98.3(TE); Pulse Ox 96% on R/A; Weight 108.86 kg ca1 (R); Height 5 ft. 4 in. (162.56 cm) (R); Pain 10/10; 23:00 BP 124 / 61; Pulse 79; Resp 18; Pulse Ox 98% on R/A; Pain 7/10; em 20:04 Body Mass Index 41.20 (108.86 kg, 162.56 cm) ca1 ED Course: 19:41 Patient arrived in ED. am4 19:41 Mateo Chavez MD is Private Physician. am4 20:06 Triage completed. ca1 20:07 Arm band placed on right wrist. ca1 21:08 Harlan Eddy, COREY is Primary Nurse. em 21:08 Patient has correct armband on for positive identification. em 21:11 Aylin Pinto FNP-C is PHCP. kb 21:11 Aram Landers MD is Attending Physician. kb 21:40 Initial lab(s) drawn, by me, sent to lab. First set of blood cultures drawn by me. em 22:54 US Extrmty Nonvasular Limited In Process Unspecified. EDMS 12/21 00:48 No provider procedures requiring assistance completed. IV discontinued, intact, em bleeding controlled, No redness/swelling at site. Pressure dressing applied. Administered Medications: 12/20 20:00 Drug: Clindamycin 900 mg Route: IVPB; Infused Over: 30 mins; Site: left hand; em 23:55 Follow up: IV Status: Completed infusion em 22:06 Drug: traMADol 25 mg Route: PO; em 23:53 Follow up: Response: No adverse reaction; Marked relief of symptoms; Pain is decreased em Outcome: 12/21 00:09 Discharge ordered by MD. willson 00:49 Discharged to home via wheelchair, with family. em 00:49 Condition: stable 00:49 Discharge instructions given to patient, family, Instructed on discharge instructions, follow up and referral plans. medication usage, wound care, Demonstrated understanding of instructions, follow-up care, medications, wound care, Prescriptions given X 1. 00:50 Patient left the ED. em Signatures: Dispatcher [employer] Aylin Lambert, HUNG-C CLERICAL ADJUDICATOR-Harlan Cohen RN RN Arlene Mina RN RN ca1 Aleja Camargo am4 Corrections: (The following items were deleted from the chart) 12/20 20:07 20:04 Chief complaint: Patient's son or daughter states: Abscess on back of L thigh ca1 started . ca1
[2020-12-21 01:28] VITALS: TEMP 98.3
[2020-12-21 01:29] VITALS: BP 124/61; O2SAT 98
--- NOTE | 2020-12-21 09:00 | RAD REPORT ---
EXAM DESCRIPTION: US - Extremity Nonvascular Limited - 12/20/2020 10:54 pm CLINICAL HISTORY: abscess Pain and swelling COMPARISON: BREAST/AXILLA, LIMITED dated 04/12/2017 TECHNIQUE: Real-time sonographic evaluation of the area of interest was performed. FINDINGS: In the area of interest, there is poorly defined subcutaneous fluid collection which is mu ltiloculated hypoechoic suspicious for an abscess.
== END 2020-12-21 00:50 | disposition home or self-care (01) ==
LOC: ER 19:36
DX: L03.116 Cellulitis of left lower limb (principal); I10 Essential (primary) hypertension; Z88.5 Allergy status to narcotic agent; Z85.42 Personal history of malignant neoplasm of other parts of uterus
CPT/HCPCS: 36415; 76882; 80048; 83605; 84145; 85025; 86850; 86900; 86901; 87040; 96365; 96366; 99284

== ENCOUNTER 2020-12-23 11:37 | Inpatient (IN) | payer OTHER ==
--- OUTSIDE RECORDS SUMMARY | 2020-12-23 13:24 | XMS REPORT | Continuity of Care Document ---
:1950 Author Organization [facility] t Address [address] [place] [address] Care Team Providers Name Role Phone DANA THOMAS Primary Care Physician Unavailable Carey VUONG Attending Clinician Viraj Thomas MD Attending Clinician Molina PÉREZ Attending Clinician Pedro RN, L Attending Clinician Unavailable GARETH CUELLAR Attending Clinician Unavailable GARETH CUELLAR Admitting Clinician Unavailable Payers Payer Name Policy Type Policy Effective Date Expiration Date [facility] ce Number AETNA MEDICAREAETNA [id number] 2019 MD Donaldson MEDICARE 00:00:00 [id number]/2019-PresentMedicar e Problems Condition Condition Condition Status Onset [...] Morbid Morbid Disease Active Overview: (severe) (severe) 2-15 11/21/2016 And erso obesity obesity 00:00: Body mass n due to due to 00 index is excess excess 41.48 calories calories kg/(m^2). Weight: (!) 106.2 kg (234 lb 2.1 oz) [place] body weight: 52.4 kg (115 lb 7.7 [...] 00:00:00 2020-09-09 00:00:00 Lester son Never smoker [facility] Medications Ordered Filled Start Stop [...] Procedure Date / Time Performed Performing Clinician [facility] e CANCER ANTIGEN 125 2020-09-08 17:00:00 Christian Auguste MD on CANCER ANTIGEN 125 2020-03-05 15:20:21 Christian Auguste MD on Plan of Care Planned Activity Planned Date Details Comments Source Future Scheduled 2028-05-[address] [facility] - Test 00:00:00 [facility] colon (procedure) [code = [id number]] Future Scheduled 2020-05-25 INFLUENZA VACCINE (#1) C [...] 00:00:00 (1 of 1 - [facility] [id number] PCV13) [code = PNEUMOCOCCAL 65+ YRS (1 of 1 - [id number] PCV13)] Future Scheduled [address] [facility] - Test 00:00:00 malignant neoplasm of [facility] breast (procedure) [code = [id number]] Results Test Description Test Time Test Comments [...] NOT 1092) ACCURATE CRE ATININE CLEARANCE IN [place] EDICTING GLOMERULAR FILT RATION RATE. ESTIMATED GFR IS NOT APPLICABLE FOR DIALYSIS PATIENTS. CBC W/PLT COUNT & AUTO [id number] 08:10:00 Test Item Value Reference Range Interpretation [...]
[2020-12-23 14:33] VITALS: BMI 40.8
[2020-12-23] MEDS ORDERED: ACETAMINOPHEN 325 MG TABLET PO PRN (14:57)
[2020-12-23] MEDS ORDERED: LOPERAMIDE HCL 2 MG CAPSULE PO PRN (14:58)
[2020-12-23] MEDS ORDERED: DIPHENHYDRAMINE 25 MG TAB/CAP PO PRN (14:58)
[2020-12-23] MEDS ORDERED: HYDROMORPHONE HCL 1 MG/ML INJ IV PRN (14:59)
[2020-12-23] MEDS ORDERED: POLYETHYL GLY 3350 17 GM/DOSE PO PRN (14:59)
[2020-12-23] MEDS ORDERED: ONDANSETRON 4 MG (ODT) TAB PO PRN (14:59)
[2020-12-23] MEDS ORDERED: VANCOMYCIN 1 GM in NA CHLORIDE 0.9% 500 ML IVPB SCH (15:00)
[2020-12-23] MEDS: NACHLORIDE 0.45% 1,000 ML IV SCH (15:57)
[2020-12-23] MEDS: ENOXAPARIN 40 MG/0.4 ML SQ SCH (15:58)
[2020-12-23] MEDS ORDERED: VANCOMYCIN/NS 1 gm 1 GM/250 ML BAG IVPB ONE ×2 (16:00→18:00)
[2020-12-23 16:12] LABS: Absolute Lymphocytes (CBC) 1.4 K/uL (0.7-4.9); Basophils % 0.5 % (0-1.3); Hematocrit 29.7 % (36.0-45.0); Lymphocytes % 20.8 % (15.3-44.8); MPV 7.6 fL (7.6-11.3); RBC Red Blood Cell Count 3.42 M/uL (3.86-4.86)
[2020-12-23 16:30] LABS: Protime INR 1.08
[2020-12-23 16:52] LABS: Urine Appearance CLEAR (Clear); Urine Bilirubin NEGATIVE (Negataive); Urine Blood NEGATIVE (Negative); Urine Color YELLOW (Yellow); Urine Glucose NEGATIVE (Negative); Urine Protein NEGATIVE (Negative)
[2020-12-23 16:53] LABS: Albumin 2.9 g/dL (3.4-5.0); Bilirubin Direct 0.2 mg/dL (0-0.2); Bilirubin Total 0.4 mg/dL (0.2-1.0); Magnesium 2.2 mg/dL (1.8-2.4); Phosphorus 3.2 mg/dL (2.5-4.9); Potassium 3.9 mmol/L (3.5-5.1); Protein, Total 7.7 g/dL (6.4-8.2); Thyroid Stimulating Hormone 2.13 uIU/mL (0.360-3.740)
[2020-12-23 16:58] LABS: Urine Microscopic Reflex ORDER UMIC
[2020-12-23 17:05] LABS: Urine Bacteria <20 /HPF (<20); Urine Mucus 1+ /HPF (NONE SEEN); Urine RBC <5 /HPF (NONE SEEN)
--- NOTE | 2020-12-23 17:29 | RAD REPORT ---
EXAM DESCRIPTION: RAD - Chest Pa And Lat (2 Views) - 12/23/2020 5:16 pm CLINICAL HISTORY: admission, shortness of breath COMPARISON: December 08 TECHNIQUE: Frontal and lateral views of the chest were obtained. FINDINGS: The lungs are clear. No failure or volume overload. Baseline interstitial pattern is stab le. Heart size is normal and central vasculature is within normal limits. No pleural effusion or pne umothorax seen. No acute bony finding noted. No aortic abnormality. IMPRESSION: No acute cardiopulmonary process.
[2020-12-23] MEDS: VANCOMYCIN 2 GM in NA CHLORIDE 0.9% 500 ML IVPB SCH (17:30)
[2020-12-23] MEDS ORDERED: TRAMADOL HCL 50 MG TAB PO PRN (21:15)
[2020-12-24 06:49] LABS: Magnesium 2.3 mg/dL (1.8-2.4); Potassium 4.2 mmol/L (3.5-5.1)
[2020-12-24] MEDS: AMLODIPINE 5 MG TAB PO SCH ×2 (07:32→20:58)
[2020-12-24] MEDS: LOSARTAN POTASSIUM 50 MG TABLET PO SCH (07:32)
[2020-12-24] MEDS: GABAPENTIN 300 MG CAP PO SCH ×2 (07:32→20:58)
[2020-12-24] MEDS: SPIRONOLACTONE 25 MG TABLET PO SCH (07:32)
[2020-12-24 07:35] LABS: Absolute Lymphocytes (CBC) 1.7 K/uL (0.7-4.9); Basophils % 0.2 % (0-1.3); Hematocrit 45.4 % (36.0-45.0); MPV 8.1 fL (7.6-11.3); RBC Red Blood Cell Count 5.17 M/uL (3.86-4.86)
[2020-12-24] MEDS ORDERED: Ringers Lactate 1,000 ML IV ONE (07:44)
[2020-12-24] MEDS ORDERED: BUPIVACAINE 0.25% PF 10 ML VIAL ONE (08:13)
[2020-12-24] MEDS ORDERED: propofoL 200 MG/20 ML VIAL IV ONE (08:32)
[2020-12-24] MEDS ORDERED: FENTANYL CITR 100 MCG/2 ML ONE (08:32)
[2020-12-24] MEDS ORDERED: LIDOCAINE 1% MPF 5 ML VIAL ONE (08:32)
[2020-12-24] MEDS ORDERED: MIDAZOLAM HCL 2 MG/2 ML INJ ONE (08:32)
--- NOTE | 2020-12-24 08:56 | P.OP ---
Preoperative diagnosis: LEFT Buttock Abscess Postoperative diagnosis: LEFT Buttock Abscess Primary procedure: Incision and Drainage of LEFT Buttock Abscess Anesthesia: GETA + Local Estimated blood loss: <5cc Specimen: cultures + debridement tissue Findings: 6x3x4 cm multiloculated necrotic abscess of LEFT buttock Complications: None Transferred to: Recovery Room Condition: Good
[2020-12-24] MEDS ORDERED: dexAMETHasone 10 MG/ML VIAL ONE (09:02)
[2020-12-24] MEDS ORDERED: KETOROLAC 30 MG/ML INJ ONE (09:11)
[2020-12-24] MEDS ORDERED: ONDANSETRON 4 MG/2 ML VIAL ONE ×2 (09:11→09:57)
[2020-12-24] MEDS: HYDROMORPHONE HCL 1 MG/ML INJ ONE ×2 (09:42→09:47)
--- NOTE | 2020-12-24 09:55 | CON ---
Date of Consultation: 12/23/2020 Brief History Of Present Illness: The patient is a 70-year-old female, patient of Dr. Chavez, who was seen in [facility] earlier in the day with complaints of left buttock pain. She had had a c hronic draining wound there for some time, which would be getting progressively bigger, larger, more tender, and spontaneously draining abscess and pus material. As such, Dr. Chavez directly admitted he r for IV fluids, antibiotics, and possible surgical intervention. Patient has no systemic complaints . No recent sick contacts. No recent travel. She has not had similar episodes before in the past. The area of the left buttock is the involved area and has been getting progressively more tender by her description. Past Medical History: Significant for hypertension, neuropathy, hyperlipidemia, chronic pain. Allergies: TO CODEINE AND MORPHINE. Home Medications: Include Norvasc, Plavix, vitamin D2, gabapentin, Cozaar, pravastatin, spironolacto ne, and tramadol. Social History: She denies smoking, alcohol, or recreational drug use. Review of Systems: Ten-point review of systems other than HPI, denies. Physical Examination: Vital Signs: At the time examination, her blood pressure is 111/57, pulse 66, respiratory rate 18, t emperature 97.4, SpO2 of 95% on room air. General: She is awake, alert, and oriented. Psychiatric: Appropriate. Conversive. HEENT: Normocephalic. Sclerae anicteric. Mucous membranes are moist. Oropharynx clear. Neck: Supple without JVD. Chest: Normal expansion and excursion. Cardiovascular: Regular rate and rhythm. Pulmonary: Clear to auscultation bilaterally. Abdomen: Soft, nontender, nondistended. No rebound. No guarding. No focal peritonitis. Skin: She has a left buttock abscess, which is spontaneously draining cellulitic, tender, and infect ed. The remainder of her skin examination is unremarkable. Laboratory Data: She had a laboratory exam, which revealed a white blood cell count of 6.7, hemoglob in 9.9, hematocrit of 29.7, platelet count was 275. Her PT 12.4, INR 1.08, PTT 29.1. Her sodium 138 , potassium 3.9, chloride 104, carbon dioxide 25, BUN 17, creatinine 1.02. Her glucose is 91. Her p hosphorus is 3.2, magnesium 2.2, total bilirubin 0.4, direct component 0.2, AST 41, ALT 69, alk phos is 169. Urinalysis was 2.0 urobilinogen, leukocyte esterase is 1+, white blood cells 5 to 10. COVID was negative on her exam. She had a chest x-ray performed on 12/23/2020, which was officially read as no acute cardiopulmonary process. Assessment And Plan: This is a 70-year-old female, who comes in with signs and symptoms of a left bu ttock abscess. 1.IV fluid hydration. 2.Antibiotic coverage. 3.I have explained risks, benefits, and alternatives of incision and drainage of this left buttock a bscess, including but not limited to bleeding, infection, damage to surrounding tissue, need for furt her operative procedures, ongoing wound care. The patient agrees to proceed as indicated. Thank you for this interesting consult. LELA/UNA Voice ID: [id number] Report ID: [id number]
--- NOTE | 2020-12-24 10:39 | OP ---
Date of Procedure: 12/24/2020 Surgeon: Bradley Arreaga MD, Preoperative Diagnosis: Left buttock abscess. Postoperative Diagnosis: Left buttock abscess. Procedure Performed: Incision and drainage of left buttock abscess with debridement. Anesthesia: General endotracheal plus local with 0.25% Marcaine without epinephrine. Estimated Blood Loss: Less than 5 mL. Specimen: Cultures sent for both aerobic and anaerobic speciation as well as debridement tissue. Findings: This was a 6 cm x 3 cm x 4 cm multiloculated necrotic abscess in left buttock area. Complications: None. Disposition: The patient was transferred to recovery room in good condition. Procedure In Detail: After informed consent was obtained, the patient was brought to the operating r oom, prepped and draped in the usual sterile fashion. After adequate anesthesia was achieved, curvil inear incision was made around the left buttock area approximately 6 x 3 cm down through subcutaneous tissues using a 15-blade. Immediately encountered was abscess material in a multiloculated collecti on. Culture sent both aerobic and anaerobic speciation at this time. I then circumferentially disse cted using combination of sharp and electrocautery dissection down to remove the entire abscess. Aft er breaking up all loculations, the entire cavity was cleaned out until good viable bleeding tissue w as left behind. This cavity was approximately 6 cm x 3 cm down to 4 cm into the subcutaneous fat onl y. The specimen was sent off for pathologic examination as debridement tissue. The area was copious ly irrigated after hemostasis was achieved and packed with Kerlix soaked in iodoform 50:50, saline 50 , iodoform and sterile dressing placed over top. The patient tolerated the procedure well without ev idence of complication and transferred to PACU in good condition. All counts were correct at the end of the case. TK/MODL Voice ID: [id number] Report ID: [id number]
[2020-12-24] MEDS ORDERED: NACHLORIDE 0.45% 500 ML IV SCH (11:00)
[2020-12-24] MEDS: NACHLORIDE 0.45% 1,000 ML IV SCH (11:18)
[2020-12-24] MEDS: ENOXAPARIN 40 MG/0.4 ML SQ SCH (16:23)
[2020-12-24] MEDS: VANCOMYCIN 2 GM in NA CHLORIDE 0.9% 500 ML IVPB SCH (17:08)
--- NOTE | 2020-12-24 20:47 | P.PN ---
Subjective Date of Service: 12/24/20 Chief Complaint: GLUTEAL ABSCESS MS. BURNS IS IN OR AT THE TIME I WENT TO SEE HER. DR. HERNÁNDEZ DEBRIDED 6-4-3 CM LARGE ABSCESS. Physical Examination - Vital Signs Temperature: 98.0 F Blood Pressure: 114/62 Pulse: 56 Respirations: 16 Pulse Ox (%): 99 - Physical Exam General: Alert, In no apparent distress Musculoskeletal: No tenderness Integumentary: No rashes Neurological: Normal speech, Normal tone, Normal affect Lymphatics: No axilla or inguinal lymphadenopathy - Studies Laboratory Data (last 24 hrs) 12/24/20 06:04: Sodium 139, Potassium 4.2, BUN 16, Creatinine 1.04, Glucose 92, Magnesium 2.3 12/24/20 06:04: WBC 6.30, Hgb 14.9 D, Hct 45.4 H D, Plt Count 215 D Microbiology Data (last 24 hrs): 12/23/20 14:50 Other - Left Thigh Gram Stain - Final Medications List Reviewed: Yes Assessment And Plan - Current Problems (Diagnosis) (1) Abscess, gluteal, left Current Visit: Yes Status: Acute Plan: LARGE ABSCES MAY BE MRSA. CULTURE PENDING.
[2020-12-24] MEDS: ATORVASTATIN 10 MG TAB PO SCH (20:58)
[2020-12-24 23:04] VITALS: O2SAT 99
[2020-12-25] MEDS: NACHLORIDE 0.45% 1,000 ML IV SCH (05:02)
[2020-12-25 06:18] LABS: Absolute Lymphocytes (CBC) 0.9 K/uL (0.7-4.9); Basophils % 0.2 % (0-1.3); Hematocrit 33.4 % (36.0-45.0); Lymphocytes % 13.1 % (15.3-44.8); MPV 7.6 fL (7.6-11.3)
[2020-12-25 06:33] LABS: Magnesium 2.4 mg/dL (1.8-2.4); Potassium 4.5 mmol/L (3.5-5.1)
[2020-12-25] MEDS: GABAPENTIN 300 MG CAP PO SCH ×2 (08:29→20:35)
[2020-12-25] MEDS: AMLODIPINE 5 MG TAB PO SCH ×2 (08:29→20:36)
[2020-12-25] MEDS: SPIRONOLACTONE 25 MG TABLET PO SCH (08:30)
[2020-12-25] MEDS: LOSARTAN POTASSIUM 50 MG TABLET PO SCH (08:30)
[2020-12-25] MEDS: COLLAGENASE 30 GM OINTMENT TOP SCH (15:34)
[2020-12-25] MEDS: SODIUM HYPOCHLORITE 0.25% 473 ML TOP SCH (15:34)
[2020-12-25] MEDS: ENOXAPARIN 40 MG/0.4 ML SQ SCH (17:00)
[2020-12-25] MEDS: VANCOMYCIN 2 GM in NA CHLORIDE 0.9% 500 ML IVPB SCH (17:47)
--- NOTE | 2020-12-25 20:28 | P.PN ---
Subjective Date of Service: 12/25/20 Chief Complaint: GLUTEAL ABSCESS Subjective: Improving MS. BURNS IS IN OR AT THE TIME I WENT TO SEE HER. DR. HERNÁNDEZ DEBRIDED 6-4-3 CM LARGE ABSCESS. SHE DOES NOT HAVE MUCH PAIN ANY LONGER. Physical Examination - Vital Signs Temperature: 97 F Blood Pressure: 139/66 Pulse: 59 Respirations: 18 Pulse Ox (%): 96 - Physical Exam General: Alert, In no apparent distress, Obese HEENT: Atraumatic, PERRLA, EOMI Neck: Supple, JVD not distended Respiratory: Clear to auscultation bilaterally, Normal air movement Cardiovascular: Regular rate/rhythm, Normal S1 S2 Gastrointestinal: Normal bowel sounds, No tenderness Musculoskeletal: No tenderness Integumentary: No rashes Neurological: Normal speech, Normal tone, Normal affect Lymphatics: No axilla or inguinal lymphadenopathy - Studies Laboratory Data (last 24 hrs) 12/25/20 05:35: Sodium 138, Potassium 4.5, BUN 18, Creatinine 1.02, Glucose 102, Magnesium 2.4 12/25/20 05:35: WBC 6.80, Hgb 10.9 L D, Hct 33.4 L D, Plt Count 297 D Microbiology Data (last 24 hrs): 12/24/20 08:44 Body Fluid - Other Gram Stain - Final 12/24/20 08:44 Wound - Other Gram Stain - Final 12/23/20 14:50 Other - Left Thigh Gram Stain - Final 12/23/20 14:50 Other - Left Thigh Culture & Sensitivity - Final Staph Aureus 12/23/20 16:10 Clean Catch Urine [place] Count - Final No growth. 12/23/20 16:10 Clean Catch Urine - Final No growth. Medications List Reviewed: Yes Assessment And Plan - Current Problems (Diagnosis) (1) Abscess, gluteal, left Current Visit: Yes Status: Acute Plan: LARGE ABSCES MAY BE MRSA. CULTURE PENDING. I HAVE ADVISED HER TO BE CAREFUL USING PUBLIC TOILETS AND TRY NOT TO USE THEM. SHE IS GROWING MRSA FROM THE ABSCESS I EXPECTED.
[2020-12-25] MEDS: ATORVASTATIN 10 MG TAB PO SCH (20:35)
[2020-12-26 06:14] LABS: Absolute Lymphocytes (CBC) 2.5 K/uL (0.7-4.9); Basophils % 0.4 % (0-1.3); Hematocrit 30.8 % (36.0-45.0); Lymphocytes % 41.1 % (15.3-44.8); MPV 7.7 fL (7.6-11.3); RBC Red Blood Cell Count 3.46 M/uL (3.86-4.86)
[2020-12-26 06:28] LABS: Magnesium 2.2 mg/dL (1.8-2.4); Potassium 4.3 mmol/L (3.5-5.1)
[2020-12-26] MEDS: COLLAGENASE 30 GM OINTMENT TOP SCH (06:46)
[2020-12-26] MEDS: SODIUM HYPOCHLORITE 0.25% 473 ML TOP SCH (06:46)
[2020-12-26] MEDS: GABAPENTIN 300 MG CAP PO SCH (08:42)
[2020-12-26] MEDS: AMLODIPINE 5 MG TAB PO SCH (08:42)
[2020-12-26] MEDS: SPIRONOLACTONE 25 MG TABLET PO SCH (08:42)
[2020-12-26] MEDS: LOSARTAN POTASSIUM 50 MG TABLET PO SCH (08:43)
[2020-12-26] MEDS ORDERED: COLLAGENASE 30 GM OINTMENT TOP SCH (09:00)
--- NOTE | 2020-12-26 13:58 | P.DS ---
Admission Date: 12/25/20 Discharge Date: 12/26/20 Disposition: ROUTINE DISCHARGE Discharge Condition: FAIR Reason for Admission: GLUTEAL ABSCESS - Problems (1) Abscess, gluteal, left Current Visit: Yes Status: Acute Hospital Course: MS BURNS CAME WITH LARGE GLUTEAL ABSCESS THAT CLINICALLY LOOKED LIKE MRSA INFECTION. SHE UNDERWENT I AND D BY DR. DEL CID. SHE IS GOING HOME IN STABLE CONDITION. SHE WILL FU WITH DR. DEL CID FOR WOUND. Vital Signs/Physical Exam: Temp Pulse Resp BP Pulse Ox 97.3 F 50 18 118/54 L 99 12/26/20 08:00 12/26/20 08:42 12/26/20 08:00 12/26/20 08:42 12/26/20 08:00 General: Alert, In no apparent distress, Obese HEENT: Atraumatic, PERRLA, EOMI Neck: Supple, JVD not distended Respiratory: Clear to auscultation bilaterally, Normal air movement Cardiovascular: Regular rate/rhythm, Normal S1 S2 Gastrointestinal: Normal bowel sounds, No tenderness Musculoskeletal: No tenderness Integumentary: No rashes Neurological: Normal speech, Normal tone, Normal affect Lymphatics: No axilla or inguinal lymphadenopathy Laboratory Data at Discharge: WBC 6.00 K/uL (4.3-10.9) 12/26/20 05:24 Hgb 9.9 g/dL (12.0-15.0) L 12/26/20 05:24 Hct 30.8 % (36.0-45.0) L 12/26/20 05:24 Plt Count 269 K/uL (152-406) 12/26/20 05:24 PT 12.4 SECONDS (9.5-12.5) 12/23/20 15:58 INR 1.08 12/23/20 15:58 APTT 29.1 SECONDS (24.3-36.9) 12/23/20 15:58 Sodium 141 mmol/L (136-145) 12/26/20 05:24 Potassium 4.3 mmol/L (3.5-5.1) 12/26/20 05:24 BUN 14 mg/dL (7-18) 12/26/20 05:24 Creatinine 0.83 mg/dL (0.55-1.3) 12/26/20 05:24 Glucose 79 mg/dL (74-106) 12/26/20 05:24 Phosphorus 3.2 mg/dL (2.5-4.9) 12/23/20 15:58 Magnesium 2.2 mg/dL (1.8-2.4) 12/26/20 05:24 Total Bilirubin 0.4 mg/dL (0.2-1.0) 12/23/20 15:58 AST 41 U/L (15-37) H 12/23/20 15:58 ALT 69 U/L (12-78) 12/23/20 15:58 Alkaline Phosphatase 168 U/L (45-117) H 12/23/20 15:58 Home Medications: Amlodipine [Norvasc*] 5 mg PO BID #60 tab 06/13/18 Gabapentin 300 mg PO Q12HR 12/08/20 Clopidogrel Bisulfate [Plavix*] 75 mg PO DAILY #90 tablet 12/09/20 Losartan Potassium [Cozaar*] 50 mg PO DAILY tablet 12/09/20 Spironolactone 25 mg PO DAILY #90 tablet 12/09/20 Ergocalciferol (Vitamin D2) [Vitamin D2] 50,000 unit PO SEECOM 12/23/20 Pravastatin Sodium 20 mg PO BEDTIME 12/23/20 Tramadol HCl [Ultram] 50 mg PO Q8HP PRN 12/23/20 Collagenase [Santyl Ointment*] 1 appl TOP DAILY #1 tube 12/26/20 Smz./Tmp. [Bactrim Ds 800 MG/160 MG] 1 tab PO BID #20 tab 12/26/20 New Medications: Smz./Tmp. [Bactrim Ds 800 MG/160 MG] 1 tab PO BID #20 tab Collagenase [Santyl Ointment*] 1 appl TOP DAILY #1 tube Followup: Mateo Chavez MD [Primary Care Provider] -
[2020-12-26 14:12] VITALS: BP 144/66; TEMP 97
[2020-12-29] MEDS ORDERED: DRISDOL (VITAMIN D=ERGOCALCIFEROL) 50000 UNIT CAP PO SCH (09:00)
[2020-12-29 11:40] LABS: Vitamin D 1,25-Dihydroxy Total 45 pg/mL (18-72); Vitamin D,1,25-OH2, D2 10 pg/mL
== END 2020-12-26 15:46 | disposition home health service (06) | DRG 571 ==
LOC: 2ND 13:22 → OBSVTOIN 12-25 11:56
PROVIDERS: ADMIT Internal Medicine; ATTEND Internal Medicine
PROC: 0JB90ZZ Excision of Buttock Subcutaneous Tissue and Fascia, Open Approach (ICD-10-PCS; principal; 2020-12-24 12:00)
DX: L02.31 Cutaneous abscess of buttock (principal); Z68.41 Body mass index [BMI] 40.0-44.9, adult; E66.01 Morbid (severe) obesity due to excess calories; I10 Essential (primary) hypertension; E78.5 Hyperlipidemia, unspecified; G89.29 Other chronic pain; C55 Malignant neoplasm of uterus, part unspecified; Z88.5 Allergy status to narcotic agent; Z86.73 Personal history of transient ischemic attack (TIA), and cerebral infarction without residual deficits; Z79.02 Long term (current) use of antithrombotics/antiplatelets; Z79.899 Other long term (current) drug therapy; Z20.822 Contact with and (suspected) exposure to COVID-19
CPT/HCPCS: 36415; 71046; 80048; 80076; 80202; 81003; 81015; 82306; 82607; 82652; 83735; 84100; 84443; 85025; 85610; 85730; 87040; 87070; 87075; 87077; 87086; 87088; 87186; 87205; 88304; G0378; G0379; J1100; J1170; J1650; J2250; J2405; J2704; J3010; J3370; J3590; J7040; J7120; U0003

== ENCOUNTER 2021-03-14 18:52 | Emergency (ER) | payer OTHER ==
--- OUTSIDE RECORDS SUMMARY | 2021-03-14 18:54 | XMS REPORT | Continuity of Care Document ---
:1950 Author Organization [facility] t Address [address] [place] [address] Care Team Providers Name Role Phone DANA THOMAS Primary Care Physician Unavailable Carey VUONG Attending Clinician Viraj Thomas MD Attending Clinician GARETH CUELLAR Attending Clinician Unavailable GARETH CUELLAR Admitting Clinician Unavailable Payers Payer Name Policy Type Policy Effective Date Expiration Date [facility] ce Number AETNA MEDICAREAETNA [id number] 2019 MD Donaldson MEDICARE 00:00:00 [id number] e Problems Condition Condition Condition Status Onset [...] Plan: n due to due to 00 Formattin calcified calcified g of this coronary coronary note lesion lesion might be different from the original. Refers no ischemic symptoms. - LDL at target.- Continue aspirin 81 milligram s by mouth daily. Other Other Disease Active specified specified 04-25 Ronan rso polyneurop polyneurop 00:00: n athy athy 00 Essential Essential Disease Active Overview: (primary) (primary) 2-15 Brandon A nderso hypertensi hypertensi 00:00: g of this n on on 00 note is different from the original. BP Readings from Last 3 Encounter s: 11/21/16 149/79 11/08/16 (!) 180/96 Last Assessmen t & Plan: Formattin g of this note might be different from the original. Blood pressure currently not well optimized . [...] Morbid Disease Active Overview: (severe) (severe) 2-15 Brandon And renee obesity obesity 00:00: g of this n due to due to 00 note excess excess might be calories calories different from the original. 11/21/2016 Body mass index is 41.48 kg/(m^2). Weight: (!) 106.2 kg (234 lb 2.1 oz) [place] body weight: 52.4 kg (115 lb 7.7 oz)Adjust ed ideal body weight: 73.9 kg (162 lb 15 oz) Last Assessmen t & Plan: Formattin g of this note might be different from the original. Discussed diet and weight lossCurre ntly stable, [...] of tobacco Current smoker MD Donaldson use Tobacco use and 2020-09-09 2020-09-09 Never used MD Medrano on exposure 00:00:00 00:00:00 Alcohol intake 2020-09-09 2020-09-09 Current drinker MD Jazmin ackerman 00:00:00 00:00:00 of alcohol (finding) Tobacco Comment 2016-11-08 2016-11-08 quit 30yrs ago MD Jazmin ackerman 00:00:00 00:00:00 Alcohol Comment 2016-11-08 2016-11-08 social drinker MD Jazmin ackerman 00:00:00 00:00:00 Sex [birth year] MD Medrano on 00:00:00 00:00:00 Smoking Status Start Date Stop Date Source Former smoker 2020-09-09 00:00:00 2020-09-09 00:00:00 Lester son Never smoker [facility] Medications Ordered Filled Start Stop [...] Procedure Date / Time Performed Performing Clinician Sour e CANCER ANTIGEN 125 2020-09-08 17:00:00 Christian Auguste MD on Plan of Care Planned Activity Planned Date Details Comments Source Future Scheduled 2028-05-[address] [facility] - Test 00:00:00 malignant neoplasm of [facility] colon (procedure) [code = 332842154] Future Scheduled 2020-05-25 INFLUENZA VACCINE (#1) C [...] 00:00:00 (1 of 1 - [facility] [id number] PCV13) [code = PNEUMOCOCCAL 65+ YRS (1 of 1 - [id number] PCV13)] Future Scheduled [address] [facility] - Test 00:00:00 malignant neoplasm of [facility] breast (procedure) [code = 475865033] Results Test Description Test Time Test Comments [...] NOT 1092) ACCURATE CRE ATININE CLEARANCE IN WI EDICTING GLOMERULAR FILT RATION RATE. ESTIMATED GFR IS NOT APPLICABLE FOR DIALYSIS PATIENTS. CBC W/PLT COUNT & AUTO [id number] 08:10:00 Test Item Value Reference Range Interpretation [...]
--- NOTE | 2021-03-14 20:01 | ER ---
Nurse's Notes [facility] Name: Misa Claros Age: 70 yrs Sex: Female : 1950 Arrival Date: 03/14/2021 Time: 18:52 Bed 24 Private MD: Diagnosis: Bleeding from incision wound left forearm Presentation: 03/14 19:15 Chief complaint: Patient states: Had I\T\D to L arm [place] [address] Arreaga. L arm ll1 has been bleeding ever since. On plavix, extreme pain also. Coronavirus screen: Client denies travel out of the [place] in the last 14 days. At this time, the client does not indicate any symptoms associated with coronavirus-19. Ebola Screen: Patient denies travel to an Ebola-affected area in the 21 days before illness onset. Initial Sepsis Screen: Does the patient meet any 2 criteria? No. Patient's initial sepsis screen is negative. Does the patient have a suspected source of infection? Yes: Skin breakdown/wound. Risk Assessment: Do you want to hurt yourself or someone else? Patient reports no desire to harm self or others. Onset of symptoms was March 14, 2021. 19:15 Method Of Arrival: Ambulatory ll1 19:15 Acuity: VINOD 3 ll1 Historical: - Allergies: 19:18 Codeine; ll1 19:18 Morphine; ll1 - PMHx: 19:18 Back pain; Hypertension; sciatica; uterine cancer; diagnosed a year ago; ll1 - PSHx: 19:18 Cholecystectomy; left eye cataract; ll1 - Immunization history:: Flu vaccine is not up to date. - Social history:: Smoking status: Patient denies any tobacco usage or history of. Screenin:14 Abuse screen: Denies threats or abuse. Nutritional screening: No deficits noted. bb Tuberculosis screening: No symptoms or risk factors identified. Fall Risk None identified. Assessment: 19:26 General: Appears in no apparent distress. comfortable, Behavior is calm, cooperative. vg1 Pain: Complains of pain in left forearm Pain currently is 10 out of 10 on a pain scale. Pain began 4 hours ago. Noted to be grimacing, guarding. Neuro: Level of Consciousness is awake, alert, obeys commands, Oriented to person, place, time, situation. Cardiovascular: Capillary refill < 3 seconds in bilateral fingers Patient's skin is warm and dry. Respiratory: Airway is patent Respiratory effort is even, unlabored. GI: No signs and/or symptoms were reported involving the gastrointestinal system. : No signs and/or symptoms were reported regarding the genitourinary system. EENT: No signs and/or symptoms were reported regarding the EENT system. Derm: Wound noted left forearm. 20:13 Reassessment: Patient is alert, oriented x 3, equal unlabored respirations, skin bb warm/dry/pink. sling to left arm in place. Pt verbalized understanding of and agrees to plan of care discharge instructions given pt ambulated with steady gait to exit accompanied by family. Vital Signs: 19:15 BP 152 / 64; Pulse 66; Resp 18; Temp 97.1; Pulse Ox 100% ; Weight 106.14 kg; Height 5 ll1 ft. 4 in. (162.56 cm); Pain 10/10; 20:10 BP 141 / 65; Pulse 62; Resp 18; Temp 98.1(O); Pulse Ox 98% on R/A; oe 19:15 Body Mass Index 40.17 (106.14 kg, 162.56 cm) ll1 ED Course: 18:52 Patient arrived in ED. as 19:17 Triage completed. ll1 19:17 Arm band placed on. ll1 19:26 Shaunna Rivera RN is Primary Nurse. vg1 19:28 Rl Nolen MD is Attending Physician. pkl 20:00 Bradley Arreaga MD is Referral Physician. pkl 20:14 Patient has correct armband on for positive identification. bb 20:14 No provider procedures requiring assistance completed. Patient did not have IV access bb during this emergency room visit. Administered Medications: No medications were administered Outcome: 20:00 Discharge ordered by . pkl 20:15 Discharged to home ambulatory, with family. bb 20:15 Condition: stable 20:15 Discharge instructions given to patient, Instructed on discharge instructions, follow up and referral plans. Demonstrated understanding of instructions, follow-up care. 20:15 Patient left the ED. bb Signatures: Rl Nolen MD MD pkGiovanna Cartagena Brenda, RN RN bb [place] Victoria, RN RN vg1 Noel, Lynsay, RN RN ll1
--- NOTE | 2021-03-14 20:02 | EDPHYS ---
Physician Documentation [facility] Name: Misa Claros Age: 70 yrs Sex: Female : 1950 Arrival Date: 03/14/2021 Time: 18:52 Bed 24 Private MD: ED Physician Rl Nolen HPI: 03/14 19:48 This 70 yrs old Black Female presents to ER via Ambulatory with complaints of Wound pkl Check. 19:48 Patient presents to ED for recheck of: Patient had abscess I \T\ D on left forearm by Dr. marlys Arreaga earlier this afternoon. Patient return because incision wound still oozing.. Historical: - Allergies: 19:18 Codeine; ll1 19:18 Morphine; ll1 - PMHx: 19:18 Back pain; Hypertension; sciatica; uterine cancer; diagnosed a year ago; ll1 - PSHx: 19:18 Cholecystectomy; left eye cataract; ll1 - Immunization history:: Flu vaccine is not up to date. - Social history:: Smoking status: Patient denies any tobacco usage or history of. ROS: 19:48 Eyes: Negative for injury, pain, redness, and discharge, ENT: Negative for injury, pkl pain, and discharge, Neck: Negative for injury, pain, and swelling, Cardiovascular: Negative for chest pain, palpitations, and edema, Respiratory: Negative for shortness of breath, cough, wheezing, and pleuritic chest pain, Abdomen/GI: Negative for abdominal pain, nausea, vomiting, diarrhea, and constipation, Back: Negative for injury and pain, : Negative for injury, bleeding, discharge, and swelling, Neuro: Negative for headache, weakness, numbness, tingling, and seizure. 19:48 MS/extremity: Positive for Incision wound left forearm oozing slightly. Exam: 19:48 Head/Face: Normocephalic, atraumatic. Eyes: Pupils equal round and reactive to light, pkl extra-ocular motions intact. Lids and lashes normal. Conjunctiva and sclera are non-icteric and not injected. Cornea within normal limits. Periorbital areas with no swelling, redness, or edema. ENT: Nares patent. No nasal discharge, no septal abnormalities noted. Tympanic membranes are normal and external auditory canals are clear. Oropharynx with no redness, swelling, or masses, exudates, or evidence of obstruction, uvula midline. Mucous membranes moist. Neck: Trachea midline, no thyromegaly or masses palpated, and no cervical lymphadenopathy. Supple, full range of motion without nuchal rigidity, or vertebral point tenderness. No Meningismus. Chest/axilla: Normal chest wall appearance and motion. Nontender with no deformity. No lesions are appreciated. Cardiovascular: Regular rate and rhythm with a normal S1 and S2. No gallops, murmurs, or rubs. Normal PMI, no JVD. No pulse deficits. Respiratory: Lungs have equal breath sounds bilaterally, clear to auscultation and percussion. No rales, rhonchi or wheezes noted. No increased work of breathing, no retractions or nasal flaring. Abdomen/GI: Soft, non-tender, with normal bowel sounds. No distension or tympany. No guarding or rebound. No evidence of tenderness throughout. Back: No spinal tenderness. No costovertebral tenderness. Full range of motion. Neuro: Awake and alert, GCS 15, oriented to person, place, time, and situation. Cranial nerves II-XII grossly intact. Motor strength 5/5 in all extremities. Sensory grossly intact. Cerebellar exam normal. Normal gait. 19:48 Musculoskeletal/extremity: Extremities: grossly normal except: noted in the left forearm: bleeding slightly from incision wound. Vital Signs: 19:15 BP 152 / 64; Pulse 66; Resp 18; Temp 97.1; Pulse Ox 100% ; Weight 106.14 kg; Height 5 ll1 ft. 4 in. (162.56 cm); Pain 10/10; 20:10 BP 141 / 65; Pulse 62; Resp 18; Temp 98.1(O); Pulse Ox 98% on R/A; oe 19:15 Body Mass Index 40.17 (106.14 kg, 162.56 cm) ll1 Procedures: 19:55 Bleeding from incision wound stopped using Surgicel and pressure dressing. pkl MDM: 19:28 Patient medically screened. pkl 19:55 Data reviewed: vital signs, nurses notes. ED course: Patient instructed to keep wound pkl dry for 2 days. To elevated left forearm. To return if bleeding continue. Patient and family understood instructions. 03/14 19:30 Order name: Wound Culture EDMS 03/14 19:48 Order name: Sling; Complete Time: 19:48 vg1 Administered Medications: No medications were administered Disposition: 03/14/21 20:00 Discharged to Home. Impression: Bleeding from incision wound left forearm. - Condition is Stable. - Medication Reconciliation Form, Thank You Letter, Antibiotic Education, Prescription Opioid Use form. - Follow up: Bradley Arreaga MD; When: 2 - 3 days; Reason: Re-evaluation by your physician. - Problem is new. - Symptoms have improved. Signatures: Dispatcher [employer] EDMS Rl Nolen MD MD pkl Kenna Tomlin, RN RN bb Shaunna Rivera, RN RN vg1 Vannessa Cohen RN RN ll1 Corrections: (The following items were deleted from the chart) 20:15 20:00 03/14/2021 20:00 Discharged to Home. Impression: Bleeding from incision wound bb left forearm. Condition is Stable. Forms are Medication Reconciliation Form, Thank You Letter, Antibiotic Education, Prescription Opioid Use. Follow up: Bradley Arreaga; When: 2 - 3 days; Reason: Re-evaluation by your physician. Problem is new. Symptoms have improved. pkl
[2021-03-14 20:58] VITALS: BP 141/65; TEMP 98.1; O2SAT 98
== END 2021-03-14 20:15 | disposition home or self-care (01) ==
LOC: ER 18:52
DX: L76.21 Postprocedural hemorrhage of skin and subcutaneous tissue following a dermatologic procedure (principal); I10 Essential (primary) hypertension; Z85.42 Personal history of malignant neoplasm of other parts of uterus
CPT/HCPCS: 87070; 87205; 99281

== ENCOUNTER 2021-12-01 23:36 | Inpatient (IN) | payer OTHER ==
--- OUTSIDE RECORDS SUMMARY | 2021-12-01 23:40 | XMS REPORT | Clinical Summary ---
:1950 Author Organization [facility] MD [facility] Address [address] [place] [address] Care Team Providers Name Role Phone Deonna Leiva MD Primary Care Provider Yarely "Hattie" Unavailable Malena Chavez MD Unavailable Allergies Active Allergy Reactions Severity Noted Date Comments Codeine GI Intolerance 11/08/2016 Fruit Punch Flavor Hives, Itching 11/21/2016 Allergy to most Fruits with seeds, strawber xiomy, etc..... Morphine GI Intolerance 11/24/2016 Naloxone GI Intolerance 11/24/2016 Opium GI Intolerance 11/24/2016 Medications Medication Sig Dispensed Refills Start Date End Date Status acetaminophen Take 650 mg 0 Acti ve (TYLENOL) 325 mg by mouth tablet every 6 (six) hours as needed for mild pain. losartan (COZAAR) 0 08/21/2020 A ctive 50 mg tablet clopidogrel Take 1 tablet 0 03/05/2021 Act ines (PLAVIX) 75 mg by mouth tablet daily. pravastatin Take 1 tablet 0 03/06/2021 Act ines (PRAVACHOL) 20 mg by mouth tablet daily. spironolactone Take 1 tablet 0 03/05/2021 Active (ALDACTONE) 25 mg by mouth tablet daily. traMADol (ULTRAM) Take 1 tablet 0 03/14/2021 Active 50 mg tablet by mouth as needed. ondansetron Take 1 tablet 0 07/29/2021 Act ines (ZOFRAN) 4 mg by mouth as tablet needed. levothyroxine Take 1 tablet 0 07/08/2021 A ctive (SYNTHROID, by mouth LEVOTHROID) 25 mcg daily. tablet famotidine (PEPCID) Take 1 tablet 0 07/08/2021 Active 20 mg tablet by mouth daily. TURMERIC ORAL Take 1 tablet 0 Ac tive by mouth daily. metoprolol tartrate Take 1 tablet 60 tablet 3 11/16/2021 Active (LOPRESSOR) 25 mg (25 mg) by tabletIndications: mouth twice Cardiomegaly, daily. Coronary artery disease due to calcified coronary lesion aspirin 81 mg EC Take 81 mg by 0 Discontinued tablet mouth daily. 2 Reported on 01/24/2017 DIGOXIN ORAL Take 125 mg 0 Disco ntinued by mouth 2 daily. amLODIPine Take 5 mg by 0 Discon tinued (NORVASC) 5 mg mouth twice 2 tablet daily. triamterene-hydroCH Take 1 tablet 0 Discontinued LOROthiazide by mouth 1 (Not Ap plicable) (MAXZIDE-25) 37.5 every mg-25 mg per tablet morning. sulfamethoxazole-tr Take 1 tablet 0 12/26/202011/16 Discontinued imethoprim (BACTRIM by mouth 2 DS) 800 mg-160 mg daily. per tablet ergocalciferol 50,000 Units 0 12/23/2020 D iscontinued (DRISDOL) 50,000 every 30 2 units capsule (thirty) days. 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 - LDL at target. - Continue aspirin 81 milligrams by mout h daily. Other specified polyneuropathy 04/25/2017 Essential (primary) hypertension 11/08/2016 Overview: BP Readings from Last 3 Encounters: 11/21/16 149/79 11/08/16 (!) 180/96 Last Assessment & Plan: Blood pressure currently not well optimi zed. Of note she was prescribed amlodipine at 5 milligrams by mouth daily during the last appointment but she never took that . I advised her to take that medicat ion at nighttime hold for SBP less than 100 . Continue the rest of the cardiac medications. Therapeutic lifestyle changes has been reinforced. She'll monitor blood pressure as well as heart rate and maintain a log for review on follow-up in 4 weeks. Morbid (severe) obesity due to excess calories 017 Overview: 11/21/2016 Body mass index is 41.48 kg/(m^2). Weigh t: (!) 106.2 kg (234 lb 2.1 oz) [place] body weight: 52.4 kg (115 lb 7.7 o z) Adjusted ideal body weight: 73.9 kg (162 lb 15 oz) Last Assessment & Plan: Discussed diet and weight loss Currently stable, no further recommendat ions are being made in regards to this for the surgery. For the purposes of surgery and perioperative evaluation, this particular issue should not be a concern, continue any medications that are associ ated with the issue. The patient may follow up with his / her PCP for management of this issue. Neoplasm, malignant of endometrium 11/08/2016 Cancer Staging: Clinical stage from 2016: Stage IA (Primary) - Signed by Deonna Leiva MD on 12/18/2016 Clinical stage from 10/25/2021: Recurrent - Signed by Deonna Leiva MD on 11/05/2021 Resolved Problems Problem Noted Date Resolved Date History of malignant neoplasm of endometrium 01/09/2019 10/28/2021 Encounters Date Type Specialty Care Team Description 11/28/2021 Hospital Encounter Cardiology Angel Nash Cardio megaly (Primary Dx); Coronary artery disease due to calcified coronary lesion; Essential (prim vinod) hypertension; Morbid (severe) obesity due to excess calories 11/28/2021 Hospital Encounter Star Garcia Cardio megaly; MD Coronary artery disease due to calcified coronary lesion; Essential (prim vinod) hypertension; Morbid (severe) obesity due to excess calories 11/28/2021 Travel 11/21/2021 Anesthesia Event Anesthesiology Brooke Sanchez MA 11/21/2021 Hospital Encounter Cardiology Angel Nash Cardio megaly MD 11/21/2021 Telephone Cardiology Carlos Bradley RN 11/21/2021 Documentation Cardiology Carlos Bradley RN 11/21/2021 Orders Only Cardiology Angel Nash, Cardiomegalrubén VUONG (Primary Dx) 11/21/2021 Travel 11/18/2021 Consult Internal Medicine Deonna Leiva er for other preprocedural examination (Primary Dx); MD Viraj Essential (primary) hypertension; Susan Baird Personal his tory of transient ischemic attack; MD Mayra Hypothyroidism, not otherwise specified; Atrial fibrilla tion, not otherwise specified; Morbid (severe) obesity due to excess calories; Coronary artery disease due to calcified coronary lesion; Neoplasm, maldanielle nant of endometrium 11/18/2021 Telemedicine Gynecology Christian Auguste, Neoplasm, ma lignant of endometrium (Primary Dx); BETO Metastatic canc er to the peritoneum; Morbid (severe) obesity due to excess calories; Cardiomegaly; Coronary artery disease due to calcified coronary lesion; Essential (prim vinod) hypertension 11/18/2021 POEM Appointments Anesthesiology Deonna Leiva Pre o p labs MD Viraj (Primary Dx) 11/18/2021 Clinical Support Deonna Glez Suspecte d COVID-19 (Primary Dx); MD Viraj Neoplasm, malignant of endometrium; Rosalinda Topete Metastatic ca ncer to the peritoneum; Margaret RN Morbid (severe) obesity due to excess calories; Cardiomegaly; Coronary artery disease due to calcified coronary lesion; Essential (prim vinod) hypertension 11/18/2021 Hospital Encounter Lab Deonna Leiva Neopla sm, malignant of endometrium; MD Viraj Metastatic canc er to the peritoneum; Cardiomegaly; Coronary artery disease due to calcified coronary lesion; Essential (prim vinod) hypertension 11/18/2021 Travel 11/16/2021 Consult Cardiology Angel Nash, Preoperative cardiovascular examination (Primary Dx); Neoplasm, chrissiedanielle nant of endometrium; Metastatic canc er to the peritoneum; Cardiomegaly; Coronary artery disease due to calcified coronary lesion; Essential (prim vinod) hypertension 11/16/2021 Hospital Encounter Cardiology Gela Maguire, PA 11/16/2021 Documentation Cardiology Carlos Bradley RN 11/16/2021 Orders Only Cardiology Angel Nash MD 11/16/2021 Travel 11/04/2021 Telemedicine Gynecology Deonna Leiva Neoplasm, ma lignant of endometrium (Primary Dx); MD Viraj Metastatic canc er to the peritoneum; Cardiomegaly; Coronary artery disease due to calcified coronary lesion; Essential (prim vinod) hypertension 11/04/2021 Ancillary Procedure Radiology Christian Auguste, Mammo graphy PA abnormal 11/04/2021 Ancillary Procedure Radiology Christian Auguste, Mammo graphy PA abnormal 11/04/2021 Prep for Surgery Gynecology Deonna Leiva Neoplasm , malignant of endometrium (Primary Dx); MD Viraj Metastatic canc er to the peritoneum; Morbid (severe) obesity due to excess calories; Cardiomegaly; Coronary artery disease due to calcified coronary lesion; Essential (prim vinod) hypertension 11/04/2021 Telephone Gynecology Deonna Leiva MD 11/04/2021 Travel 11/03/2021 Multidisciplinary Visit Gynecology Deonna Leiva eoplasm, malignant of endometrium; MD Viraj Metastatic canc er to the peritoneum 11/03/2021 Travel 11/01/2021 Orders Only Gynecology Christian Auguste, PA 10/28/2021 Ancillary Procedure Radiology Deonna Leiva MD 10/28/2021 Ancillary Procedure Radiology Deonna Leiva MD 10/28/2021 Ancillary Procedure Radiology Deonna Leiva MD 10/28/2021 Ancillary Procedure Radiology Deonna Leiva MD 10/28/2021 Ancillary Procedure Radiology Deonna Leiva MD 10/28/2021 Ancillary Procedure Radiology Deonna Leiva MD 10/28/2021 Ancillary Procedure Radiology Deonna Leiva MD 10/28/2021 Orders Only Gynecology Christian Auguste, Mammography PA abnormal (Prima ry Dx) 10/28/2021 Orders Only Gynecology Deonna Leiva Neoplasm, ma lignant of endometrium (Primary Dx); MD Viraj Metastatic canc er to the peritoneum 10/26/2021 Hospital Encounter Shakira, MD Cali Gillespie Nicole D., MD 10/25/2021 Anesthesia Event Radiology Herberth Mera MD 10/25/2021 Hospital Encounter Radiology Deonna Leiva Neopla sm, malignant of endometrium; MD Viraj 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 Fermin Hoffman MD Bergbauer, Marion, CRNA Arnold, Benjamin A., MD 10/25/2021 Travel 10/24/2021 Anesthesia Event Anesthesiology Roxi Gaytan RN 10/24/2021 Hospital Encounter Deonna Mathur Metast miki betsy Cali MD to the peritoneum Genaro Mcclelland T, (Primary Dx) PA 10/24/2021 Clinical Support Deonna Glez MD observation for Cindy Núñez breanna suspecte naheed Damico MA exposure to biological agen t ruled out (Prim vinod Dx) 10/24/2021 POEM Appointments Anesthesiology Deonna Leiva MD 10/24/2021 Orders Only Radiology Genaro Mcclelland T, PA 10/24/2021 Travel 10/18/2021 Orders Only Radiology Gela Maguire PA 10/18/2021 Telephone Radiology Sabra Perez MA 10/14/2021 Telemedicine Gynecology Deonna Leiva ma lignant of endometrium (Primary Dx); MD Viraj Malignant neopl asm of endometrium; Metastatic canc er to the peritoneum 10/13/2021 Ancillary Procedure Radiology Christian Auguste, Histo ry of malignant neoplasm of endometrium; PA Malignant neopl asm of endometrium 10/13/2021 Travel 10/03/2021 Telephone Gynecology Christian Auguste, PA 09/30/2021 Office Visit Gynecology Christian Auguste, Malignant ne oplasm of endometrium (Primary Dx); PA History of nicole gnant neoplasm of endometrium 09/30/2021 Travel 03/23/2021 Office Visit Gynecology Deonna Leiva Malignant ne oplasm of endometrium (Primary Dx); MD Viraj History of nicole gnant neoplasm of endometrium 03/23/2021 Travel 12/02/2020 Orders Only Theodore Patino SARS-CoV-2 MD Vaishali vaccination after 12/01/2020 Immunizations Name Administration Dates Next Due Pfizer SARS-CoV-2 Vaccination 05/14/2021, 04/25/2021 Surgical History Surgery Date Site/Laterality Comments SECTION, CLASSIC 01/17/1981 AL LAPAROSCOPY TOT 11/28/2016 N/A Procedure: RO BOTIC HYSTERECTOMY UTERUS >250 ASSISTE D TOTAL GRAM W TUBE/OVARY HYSTERECTOMY, MINI LAPAROTOMY, CYST OSCOPY; Surgeon: Deonna Leiva MD; Lo cation: MAIN OR; Servic e: MANUAL TRAINING TEACHER - GYNECOLOGIC ONCO LOGY AL REMOVAL OF OVARY/TUBE(S) 11/28/2016 Bilateral Proc edure: ROBOTIC ASSISTED SALPINGO-OOPHORE CTOMY; Surgeon: Deonna Leiva MD; Lo cation: MAIN OR; Servic e: MANUAL TRAINING TEACHER - GYNECOLOGIC ONCO LOGY AL REMOVAL, PELVIC LYMPH 11/28/2016 Abdomen/Bilateral Proce dure: BILATERAL NODES,STAGING PELVIC BIOPSIES AND OMENTAL BIOPSY; Surgeon: Deonna ureña MD; Location: MAIN O R; Service: MANUAL TRAINING TEACHER - GYNECOLOGIC ONCO LOGY AL INTRAOPERATIVE SENTINEL 11/28/2016 Bilateral Proce dure: INTRAOPERATIVE LYMPH NODE ID W DYE LYMPHATIC MA PPING; INJECTION Surgeon: Deonna Leiva MD; Lo cation: MAIN OR; Servic e: MANUAL TRAINING TEACHER - GYNECOLOGIC ONCO LOGY CHOLECYSTECTOMY 05/25/2018 - 06/23/2018 COLONOSCOPY 09/24/2017 - 09/23/2018 Medical History Medical History Date Comments Hypertension Arthritis Cancer of female genital organ Family history of transient ischemic attack Atrial fibrillation Family History Medical History Relation Name Comments Heart attack Father Heart attack Mother Hypertension Mother Relation Name Status Comments Father Mother Social History Tobacco Use Types Packs/Day Years Used Date Former Smoker Cigarettes Quit: 1969 Smokeless Tobacco: Never Used Tobacco Cessation: Counseling Given: No Comments: quit 30yrs ago Alcohol Use Standard Drinks/Week Comments Yes 0 (1 standard drink = 0.6 oz pure alcoho l) social drinker Alcohol Habits Answer Date Recorded How often do you have a drink containing alcohol? Not asked How many drinks containing alcohol do you have on a Not aske d typical day when you are drinking? How often do you have six or more drinks on one Not asked occasion? Comment: social drinker 11/08/2016 Sex Assigned at Date Recorded Not on file Job Start Date Occupation Industry Not on file Not on file Not on file COVID-19 Exposure Response Date Recorded In the last month, have you been in contact with No / Unsure 11/28/2021 8:00 AM CYLINDER MACHINE OPERATOR someone who was confirmed or suspected to have Coronavirus / COVID-19? Obstetrics History Para Term AB IAB SAB Ectopic Multiple Living Live Births 2 2 2 2 Date Outcome GA Total Labor/2nd/3rd Weight Sex Delivery Anes PTL Marly A 1 A5 Name Clin Labor Term Vag-Spont Term CS-LTranv Comments 1) Menopause: age 49 2) HRT: denies 3) Screening: Pap Smear: last 08/2016, a typical glandular cells. Last pap smear prior to this was in 1994. No history of abnormal pap smears prior to 08/2016. Mammogram: last 08/2016, slight abnormality was worked up, recommended repeat breas t ultrasound in November 2016. Colonoscopy: has never had. Last Filed Vital Signs Vital Sign Reading Time Taken Comments Blood Pressure 142/97 11/28/2021 2:15 pt aware to danii e home PM CYLINDER MACHINE OPERATOR medication for b lood pressure. Pulse 86 11/28/2021 2:15 PM CYLINDER MACHINE OPERATOR Temperature 36.3 C (97.3 F) 11/28/2021 2:15 PM CYLINDER MACHINE OPERATOR Respiratory Rate 18 11/28/2021 2:15 PM CYLINDER MACHINE OPERATOR Oxygen Saturation 97% 11/28/2021 2:15 PM CYLINDER MACHINE OPERATOR Inhaled Oxygen - - Concentration Weight 102.1 kg (225 lb) 11/28/2021 9:18 AM CYLINDER MACHINE OPERATOR Height - - Body Mass Index 39.13 04/27/2017 9:51 AM CDT Plan of Treatment Date Type Specialty Care Team Description 12/09/2021 Telemedicine Gynecology Deonna Leiva MD [address] [place], [place] [address] (Wo rk) 12/21/2021 Follow-Up Cardiology Angel Nash MD [address] [place], [place] [address] (Wo rk) 04/03/2023 Office Visit Colorectal Surgery Marimar Doshi MD [address] [place], [place] [address] (Wo rk) Health Maintenance Due Date Last Done Comments COVID-19 Vaccination (3 - Inadvertent risk 06/11/202105/14, 04/25/2021 4-dose series) Procedures Procedure Name Priority Date/Time Associated Comments Diagnosis COMBINED RIGHT AND LEFT Routine 11/28/2021 10:10 Cardiomegaly HEART CATH AM CYLINDER MACHINE OPERATOR POC OXIMETRY VENOUS Routine 11/28/2021 9:44 Resu lts for this AM CYLINDER MACHINE OPERATOR procedure are i n the results section. POC OXIMETRY ARTERIAL Routine 11/28/2021 9:35 Re sults for this AM CYLINDER MACHINE OPERATOR procedure are i n the results section. POC GLUCOSE SCREEN Routine 11/28/2021 8:47 Resul ts for this AM CYLINDER MACHINE OPERATOR procedure are i n the results section. CLOT EXPIRATION DATE Routine 11/28/2021 7:41 Res ults for this AM CYLINDER MACHINE OPERATOR procedure are i n the results section. TMP INTERPRETATION Routine 11/28/2021 7:41 Resul ts for this ANTIBODY SCREEN NEGATIVE AM CYLINDER MACHINE OPERATOR pro cedure are in the results section. ANTIBODY SCREEN Routine 11/28/2021 7:41 Cardiomegaly Results for this AM CYLINDER MACHINE OPERATOR Coronary artery procedure ar e in disease due to the results calcified coronary section. lesion Essential (primary) hypertension Morbid (severe) obesity due to excess calories ABORH Routine 11/28/2021 7:41 Cardiomegaly Results for this AM CYLINDER MACHINE OPERATOR Coronary artery procedure ar e in disease due to the results calcified coronary section. lesion Essential (primary) hypertension Morbid (severe) obesity due to excess calories TYPE AND SCREEN Routine 11/28/2021 7:41 Cardiomegaly AM CYLINDER MACHINE OPERATOR Coronary artery disease due to calcified coronary lesion Essential (primary) hypertension Morbid (severe) obesity due to excess calories ECHOCARDIOGRAM 2D Routine 11/21/2021 7:51 Cardiomegaly Result s for this COMPLETE AM CYLINDER MACHINE OPERATOR procedure are i n the results section. GENERAL LABORATORY ADD Now 11/18/2021 1:50 Pre op labs R esults for this ON TEST PM CYLINDER MACHINE OPERATOR procedure are i n the results section. COVID-19 (SARS-COV-2) Routine 11/18/2021 12:07 Suspected COVID -19 Results for this PCR-ASYMPTOMATIC MC PM CYLINDER MACHINE OPERATOR procedur e are in the results section. URINALYSIS MICROSCOPIC Routine 11/18/2021 11:36 R esults for this AM CYLINDER MACHINE OPERATOR procedure are i n the results section. URINALYSIS WITH Routine 11/18/2021 11:36 Neoplasm, malignant R esults for this MICROSCOPIC IF INDICATED AM CYLINDER MACHINE OPERATOR of endo metrium procedure are in Metastatic cancer the result s to the peritoneu m section. Cardiomegaly Coronary artery disease due to calcified coronary lesion Essential (primary) hypertension URINE CULTURE Routine 11/18/2021 11:36 Neoplasm, malignant Res ults for this AM CYLINDER MACHINE OPERATOR of endometrium procedure are in Metastatic cancer the result s to the peritoneu m section. Cardiomegaly Coronary artery disease due to calcified coronary lesion Essential (primary) hypertension FREE THYROXINE Routine 11/18/2021 11:23 Results f or this AM CYLINDER MACHINE OPERATOR procedure are i n the results section. THYROID STIMULATING Routine 11/18/2021 11:23 Resu lts for this HORMONE AM CYLINDER MACHINE OPERATOR procedure are i n the results section. FRACTIONATED BILIRUBIN Routine 11/18/2021 11:23 Neoplasm, nicole gnant Results for this AM CYLINDER MACHINE OPERATOR of endometrium procedure are in Metastatic cancer the result s to the peritoneu m section. Cardiomegaly Coronary artery disease due to calcified coronary lesion Essential (primary) hypertension TOTAL PROTEIN Routine 11/18/2021 11:23 Neoplasm, malignant Res ults for this AM CYLINDER MACHINE OPERATOR of endometrium procedure are in Metastatic cancer the result s to the peritoneu m section. Cardiomegaly Coronary artery disease due to calcified coronary lesion Essential (primary) hypertension ASPARTATE Routine 11/18/2021 11:23 Neoplasm, malignant Resu lts for this AMINOTRANSFERASE AM CYLINDER MACHINE OPERATOR of endometrium procedure are in Metastatic cancer the result s to the peritoneu m section. Cardiomegaly Coronary artery disease due to calcified coronary lesion Essential (primary) hypertension ALANINE AMINOTRANSFERASE Routine 11/18/2021 11:23 Neoplasm, ma lignant Results for this AM CYLINDER MACHINE OPERATOR of endometrium procedure are in Metastatic cancer the result s to the peritoneu m section. Cardiomegaly Coronary artery disease due to calcified coronary lesion Essential (primary) hypertension ALKALINE PHOSPHATASE Routine 11/18/2021 11:23 Neoplasm, malign ant Results for this AM CYLINDER MACHINE OPERATOR of endometrium procedure are in Metastatic cancer the result s to the peritoneu m section. Cardiomegaly Coronary artery disease due to calcified coronary lesion Essential (primary) hypertension ALBUMIN LEVEL Routine 11/18/2021 11:23 Neoplasm, malignant Res ults for this AM CYLINDER MACHINE OPERATOR of endometrium procedure are in Metastatic cancer the result s to the peritoneu m section. Cardiomegaly Coronary artery disease due to calcified coronary lesion Essential (primary) hypertension CALCIUM LEVEL TOTAL Routine 11/18/2021 11:23 Neoplasm, maligna nt Results for this AM CYLINDER MACHINE OPERATOR of endometrium procedure are in Metastatic cancer the result s to the peritoneu m section. Cardiomegaly Coronary artery disease due to calcified coronary lesion Essential (primary) hypertension .GLOMERULAR FILTRATION Routine 11/18/2021 11:23 Neoplasm, nicole gnant Results for this RATE AM CYLINDER MACHINE OPERATOR of endometrium procedure are in Metastatic cancer the result s to the peritoneu m section. Cardiomegaly Coronary artery disease due to calcified coronary lesion Essential (primary) hypertension SERUM CREATININE Routine 11/18/2021 11:23 Neoplasm, malignant Results for this AM CYLINDER MACHINE OPERATOR of endometrium procedure are in Metastatic cancer the result s to the peritoneu m section. Cardiomegaly Coronary artery disease due to calcified coronary lesion Essential (primary) hypertension ELECTROLYTE PANEL Routine 11/18/2021 11:23 Neoplasm, malignant Results for this AM CYLINDER MACHINE OPERATOR of endometrium procedure are in Metastatic cancer the result s to the peritoneu m section. Cardiomegaly Coronary artery disease due to calcified coronary lesion Essential (primary) hypertension BLOOD UREA NITROGEN Routine 11/18/2021 11:23 Neoplasm, maligna nt Results for this AM CYLINDER MACHINE OPERATOR of endometrium procedure are in Metastatic cancer the result s to the peritoneu m section. Cardiomegaly Coronary artery disease due to calcified coronary lesion Essential (primary) hypertension GLUCOSE LEVEL Routine 11/18/2021 11:23 Neoplasm, malignant Res ults for this AM CYLINDER MACHINE OPERATOR of endometrium procedure are in Metastatic cancer the result s to the peritoneu m section. Cardiomegaly Coronary artery disease due to calcified coronary lesion Essential (primary) hypertension MANUAL DIFFERENTIAL Routine 11/18/2021 11:23 Neoplasm, maligna nt Results for this AM CYLINDER MACHINE OPERATOR of endometrium procedure are in Metastatic cancer the result s to the peritoneu m section. Cardiomegaly Coronary artery disease due to calcified coronary lesion Essential (primary) hypertension Results CBC Routine 11/18/2021 11:23 Neoplasm, malignant Resu lts for this AM CYLINDER MACHINE OPERATOR of endometrium procedure are in Metastatic cancer the result s to the peritoneu m section. Cardiomegaly Coronary artery disease due to calcified coronary lesion Essential (primary) hypertension APTT Routine 11/18/2021 11:23 Neoplasm, malignant Resu lts for this AM CYLINDER MACHINE OPERATOR of endometrium procedure are in Metastatic cancer the result s to the peritoneu m section. Cardiomegaly Coronary artery disease due to calcified coronary lesion Essential (primary) hypertension PROTHROMBIN TIME Routine 11/18/2021 11:23 Neoplasm, malignant Results for this AM CYLINDER MACHINE OPERATOR of endometrium procedure are in Metastatic cancer the result s to the peritoneu m section. Cardiomegaly Coronary artery disease due to calcified coronary lesion Essential (primary) hypertension COMPREHENSIVE METABOLIC Routine 11/18/2021 11:23 Neoplasm, mal ignant PANEL AM CYLINDER MACHINE OPERATOR of endometrium Metastatic cancer to the peritoneu m Cardiomegaly Coronary artery disease due to calcified coronary lesion Essential (primary) hypertension COMPLETE BLOOD COUNT W/ Routine 11/18/2021 11:23 Neoplasm, mal ignant DIFFERENTIAL AM CYLINDER MACHINE OPERATOR of endometrium Metastatic cancer to the peritoneu m Cardiomegaly Coronary artery disease due to calcified coronary lesion Essential (primary) hypertension CANCER ANTIGEN 125 Routine 11/18/2021 11:23 Neoplasm, malignan t Results for this AM CYLINDER MACHINE OPERATOR of endometrium procedure are in Metastatic cancer the result s to the peritoneu m section. Cardiomegaly Coronary artery disease due to calcified coronary lesion Essential (primary) hypertension CLOT EXPIRATION DATE Routine 11/18/2021 11:15 Res ults for this AM CYLINDER MACHINE OPERATOR procedure are i n the results section. TMP INTERPRETATION Routine 11/18/2021 11:15 Resul ts for this ANTIBODY SCREEN NEGATIVE AM CYLINDER MACHINE OPERATOR pro cedure are in the results section. ANTIBODY SCREEN Routine 11/18/2021 11:15 Neoplasm, malignant R esults for this AM CYLINDER MACHINE OPERATOR of endometrium procedure are in Metastatic cancer the result s to the peritoneu m section. Cardiomegaly Coronary artery disease due to calcified coronary lesion Essential (primary) hypertension ABORH Routine 11/18/2021 11:15 Neoplasm, malignant Resu lts for this AM CYLINDER MACHINE OPERATOR of endometrium procedure are in Metastatic cancer the result s to the peritoneu m section. Cardiomegaly Coronary artery disease due to calcified coronary lesion Essential (primary) hypertension HEMOGLOBIN A1C Routine 11/18/2021 11:15 Neoplasm, malignant Re sults for this AM CYLINDER MACHINE OPERATOR of endometrium procedure are in Metastatic cancer the result s to the peritoneu m section. Cardiomegaly Coronary artery disease due to calcified coronary lesion Essential (primary) hypertension TYPE AND SCREEN Routine 11/18/2021 11:15 Neoplasm, malignant AM CYLINDER MACHINE OPERATOR of endometrium Metastatic cancer to the peritoneu m Cardiomegaly Coronary artery disease due to calcified coronary lesion Essential (primary) hypertension EKG, 12-LEAD (SCHEDULED) Routine 11/16/2021 US CHEST Routine 11/04/2021 1:27 Mammography Results for this PM CYLINDER MACHINE OPERATOR abnormal procedure are i n the results section. US BREAST COMPLETE Routine 11/04/2021 1:27 Mammography Resul ts for this BILATERAL PM CYLINDER MACHINE OPERATOR abnormal procedure are i n the results section. MAMMO DIGITAL DIAGNOSTIC Routine 11/04/2021 12:27 Mammography Results for this BILATERAL W ABDELRAHMAN PM CYLINDER MACHINE OPERATOR abnormal procedure a re in the results section. HUSSEIN VUONG MICROSATELLITE Routine 10/26/2021 7:03 INSTABILITY (MSI) PM CYLINDER MACHINE OPERATOR ANALYSIS INTERPRETATION AND REPORT IR CT GUIDED BIOPSY Routine 10/25/2021 1:03 Neoplasm, maligna nt Results for this PELVIC NON-BONE PM CYLINDER MACHINE OPERATOR of endometrium procedure are in Metastatic cancer the result s to the peritoneum section. CYTOLOGY IMAGE-GUIDED Routine 10/25/2021 12:08 Neoplasm, malig nant Results for this FNA INTERPRETATION PM CYLINDER MACHINE OPERATOR of endometriu m procedure are in Metastatic cancer the result s to the peritoneum section. PATHOLOGY BIOPSY Routine 10/25/2021 12:07 Neoplasm, malignant Results for this INTERPRETATION PM CYLINDER MACHINE OPERATOR of endometrium procedure are in Metastatic cancer the result s to the peritoneum section. EKG, 12-LEAD (PORTABLE) Routine 10/25/2021 CLOT EXPIRATION DATE Routine 10/24/2021 9:56 Res ults for this AM CYLINDER MACHINE OPERATOR procedure are i n the results section. TMP INTERPRETATION Routine 10/24/2021 9:56 Resul ts for this ANTIBODY SCREEN NEGATIVE AM CYLINDER MACHINE OPERATOR pro cedure are in the results section. ANION GAP Routine 10/24/2021 9:56 Results for this AM CYLINDER MACHINE OPERATOR procedure are i n the results section. ANTIBODY SCREEN Routine 10/24/2021 9:56 Results for this AM CYLINDER MACHINE OPERATOR procedure are i n the results section. ABORH Routine 10/24/2021 9:56 Results for this AM CYLINDER MACHINE OPERATOR procedure are i n the results section. .GLOMERULAR FILTRATION Routine 10/24/2021 9:56 R esults for this RATE AM CYLINDER MACHINE OPERATOR procedure are i n the results section. SERUM CREATININE Routine 10/24/2021 9:56 Results for this AM CYLINDER MACHINE OPERATOR procedure are i n the results section. MANUAL DIFFERENTIAL Routine 10/24/2021 9:56 Resu lts for this AM CYLINDER MACHINE OPERATOR procedure are i n the results section. Results CBC Routine 10/24/2021 9:56 Results for this AM CYLINDER MACHINE OPERATOR procedure are i n the results section. TYPE AND SCREEN Routine 10/24/2021 9:56 AM CYLINDER MACHINE OPERATOR GLUCOSE, RANDOM Routine 10/24/2021 9:56 Results for this AM CYLINDER MACHINE OPERATOR procedure are i n the results section. PROTHROMBIN TIME Routine 10/24/2021 9:56 Results for this AM CYLINDER MACHINE OPERATOR procedure are i n the results section. BLOOD UREA NITROGEN Routine 10/24/2021 9:56 Resu lts for this AM CYLINDER MACHINE OPERATOR procedure are i n the results section. SERUM CREATININE Routine 10/24/2021 9:56 AM CYLINDER MACHINE OPERATOR POTASSIUM LEVEL Routine 10/24/2021 9:56 Results for this AM CYLINDER MACHINE OPERATOR procedure are i n the results section. SODIUM LEVEL Routine 10/24/2021 9:56 Results for this AM CYLINDER MACHINE OPERATOR procedure are i n the results section. CHLORIDE LEVEL Routine 10/24/2021 9:56 Results f or this AM CYLINDER MACHINE OPERATOR procedure are i n the results section. CARBON DIOXIDE LEVEL Routine 10/24/2021 9:56 Res ults for this AM CYLINDER MACHINE OPERATOR procedure are i n the results section. COMPLETE BLOOD COUNT W/ Routine 10/24/2021 9:56 DIFFERENTIAL AM CYLINDER MACHINE OPERATOR COVID-19 (SARS-COV-2) Routine 10/24/2021 9:53 Re sults for this PCR-ASYMPTOMATIC MC AM CYLINDER MACHINE OPERATOR procedur e are in the results section. AP MD MSI BY PCR Routine 10/16/2021 4:50 Neoplasm, malignant Results for this MATERIAL REQUEST PM CYLINDER MACHINE OPERATOR of endometrium procedure are in Metastatic cancer the result s to the peritoneum section. AP IHC HER2/LAURA MATERIAL Routine 10/16/2021 4:50 Neoplasm, ma lignant REQUEST PM CYLINDER MACHINE OPERATOR of endometrium 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 AP IHC MSI (MLH1, MSH2, Routine 10/16/2021 4:50 Neoplasm, mal ignant MSH6, PMS2) MATERIAL PM CYLINDER MACHINE OPERATOR of endometr ium REQUEST 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 CT CHEST ABDOMEN PELVIS Routine 10/13/2021 8:37 History of Results for this W CONTRAST AM CYLINDER MACHINE OPERATOR malignant neoplasm procedure are in of endometrium the results Malignant neoplasm section. of endometrium POC CREATININE Routine 10/13/2021 7:55 Results f or this AM CYLINDER MACHINE OPERATOR procedure are i n the results section. OSI MAMMO BILATERAL Routine 10/07/2021 4:29 Cancer Resu lts for this PM CYLINDER MACHINE OPERATOR procedure are i n the results section. OSI BONE DENSITY STUDY Routine 10/07/2021 4:29 Cancer R esults for this PM CYLINDER MACHINE OPERATOR procedure are i n the results section. PATHOLOGY BIOPSY Routine 09/30/2021 1:11 History of Results for this INTERPRETATION PM CYLINDER MACHINE OPERATOR malignant neoplasm procedu re are in of endometrium the results Malignant neoplasm section. of endometrium CANCER ANTIGEN 125 Routine 09/30/2021 11:35 History of Resul ts for this AM CYLINDER MACHINE OPERATOR malignant neoplasm procedure are in of endometrium the results Malignant neoplasm section. of endometrium CANCER ANTIGEN 125 Routine 03/23/2021 10:41 History of Resul ts for this AM CDT malignant neoplasm procedure are in of endometrium the results Malignant neoplasm section. of endometrium OSI CHEST Routine 12/23/2020 4:29 Cancer Results for this PM CDT procedure are i n the results section. after 12/01/2020 Results Combined Right and Left Heart Cath (11/28/2021 10:10 AM CYLINDER MACHINE OPERATOR) Specimen Narrative This result has an attachment that is no t available. (ABNORMAL) POC Oximetry Venous (11/28/2021 9:44 AM CYLINDER MACHINE OPERATOR) POC O2 65.0 % POC TELCOR Saturation,Venous POC Oxyhemoglobin, 63.5 % POC TELCOR Venous POC Hemoglobin, total 10.6 (L) 12.0 - POC [facility]COR 16.0 g/dL POC Carboxyhemoglobin 0.5 0.0 - 1.9 POC TELCOR % POC Methemoglobin 1.9 (H) 0.0 - 1.5 POC TELCOR Comment: % Method description: The ABL8 0 FLEX CO-OX OSM analyzer is a portable, automated analyzer that measures oxygen saturation (sO2), concentration of total hemoglobin (ctHb), fraction of oxygenated hemoglobin in total hemoglobin (FO2Hb), fraction of methemoglobin in total hemog lobin (FMetHb), and fraction of carboxyhemoglobin in total hemoglobin (FCOHb) co-oximetry parameters in whole blood. The analyzer uses spectrophotometry to perform quantitati ve measurement of the parameters listed from a 65l sample. POC OX Draw Site R atrium POC [facility], [address] [place] [address], [place] [address]; Instruments Sales Representative: Arlene Navarro MD Specimen Blood Performing Organization Address City/State/ZIP Code Phon e Number POC TELCOR (ABNORMAL) POC Oximetry Arterial (11/28/2021 9:35 AM CYLINDER MACHINE OPERATOR) [facility] POC O2 Saturation, 100.0 (H) 95.0 - POC TELCOR Arterial 99.0 % POC Oxyhemoglobin, 98.8 (H) 94.0 - POC TELCOR Arterial 98.0 % POC Hemoglobin, total 10.5 (L) 12.0 - POC TELCOR 16.0 g/dL POC Carboxyhemoglobin <0.2 0.0 - 1.9 POC TELCOR % POC Methemoglobin 1.8 (H) 0.0 - 1.5 POC TELCOR Comment: % Method description: The ABL8 0 FLEX CO-OX OSM analyzer is a portable, automated analyzer that measures oxygen saturation (sO2), concentration of total hemoglobin (ctHb), fraction of oxygenated hemoglobin in total hemoglobin (FO2Hb), fraction of methemoglobin in total hemog lobin (FMetHb), and fraction of carboxyhemoglobin in total hemoglobin (FCOHb) co-oximetry parameters in whole blood. The analyzer uses spectrophotometry to perform quantitati ve measurement of the parameters listed from a 65l sample. POC OX Draw Site Aorta POC [facility]ELCOR [facility], [address] [place] [address]; Instruments Sales Representative: Arlene Navarro MD Specimen Blood Performing Organization Address City/State/ZIP Code Phon e Number POC TELCOR (ABNORMAL) POC Glucose Screen (11/28/2021 8:47 AM CYLINDER MACHINE OPERATOR) [facility] POC Glucose 102 (H) 70 - 99 mg/dL POC TELCOR Comment: RN Notified Capillary blood samples, e.g . obtained by fingerstick, may have inaccurate results in patients with decreased peripheral blood flow. Method description: All resu lts are measured using Electrochemistry test methodology. The glucose in the sample mixes with the reagents on the test strip. The reaction produces an electric current. The amount of current produced is proportional to the glucose concentration in the blood. PO Sample Type Capillary POC [facility]EL[facility], [address] [place] [id number]; Instruments Sales Representative: Arlene Navarro MD Specimen Blood Performing Organization Address City/[facility]/ZIP Code Phon e Number POC TELCOR Clot Expiration Date (11/28/2021 7:41 AM CYLINDER MACHINE OPERATOR)Only the most recent of3 results within the time period is included. Pathologist Sig nature T & S Expiration 12/01/2021 [facility]NER Specimen Blood Performing Organization Address [facility] Phon e Number [facility] Unless otherwise noted, [address] all lab tests performed by: Division of Pathology and Laboratory Medicine [facility] TMP Interpretation Antibody Screen Negative (11/28/2021 7:41 AM CYLINDER MACHINE OPERATOR)Only the most recent of3 resultswithin the time period is included. TMP Auto Neg ABSC At the present time, patien t plasma shows no evidence of RBC alloantibodies. [facility] Interp Comment: [facility] JESSI NEWMAN MD, PhD - [id number] Dictated by: JESSI NEWMAN MD, PhD - [id number] Dictated Date/Time: 11.29.19 11:46 AM CYLINDER MACHINE OPERATOR Transcribed Date/Time: 11.28.2021 11:46 AM CYLINDER MACHINE OPERATOR Electronically Signed By: MARILEE NEWMAN MD, PhD - [id number] on 11.28.2021 11:46 AM Specimen Blood Performing Organization Address City/[facility] Phon e Number [facility] Unless otherwise noted, [address] all lab tests performed by: Division of Pathology and Laboratory Medicine [address] ABORh (11/28/2021 7:41 AM CYLINDER MACHINE OPERATOR)Only the most recent of3 resultswithin the time period is included. Pathologist Sig nature ABORh. O POS BANNER Specimen Blood Performing Organization Address City/[facility]/ZIP [facility] Phon e Number [facility] Unless otherwise noted, [address] all lab tests performed by: Division of Pathology and Laboratory Medicine [facility] Antibody Screen (11/28/2021 7:41 AM CYLINDER MACHINE OPERATOR)Only the most recent of3 resultswithin the time period is included. Pathologist Sig nature ABSC. Negative ABSC [facility] CENTE R Specimen Blood Performing Organization Address City/State/ZIP Code Phon e Number [facility] Unless otherwise noted, [place] [address] CENTER all lab tests performed by: Division of Pathology and Laboratory Medicine [address] Echocardiogram 2D Complete (11/21/2021 7:51 AM CYLINDER MACHINE OPERATOR) Specimen Narrative [facility] - 11/21/2021 10:27 AM CYLINDER MACHINE OPERATOR Echocardiographic Report Interpretation Summary A complete two-dimensional transthoracic echocardiogram was performed (2D, M- mode, Spectral and color Doppler). Compared to prior study dated : 11/24/2016 . Stress Echocardiogram: LV systolic function has deteriorated considerably, it was 60-65 % at rest and is now globally hypokinetic with dilated ventricle and severely depressed LV systolic function. LV is dilated using volumetric criteria. There is severe global LV systolic dysfunction. LV ejection fraction calculated using th e bi-plane method of disks is 23 %. The right ventricle is normal in size an d function. Right Atrium is dilated. Estimated RVSP is 40-45mmHg. There is no pericardial effusion. Dr. Nash was made aware of the above c hanges. Left Ventricle: LV is dilated using volumetric criteria. There is normal left ventricular wall thickness. LV ejection fraction calculated using the bi-plane method of disks is 23 %. There is severe global LV systolic dysfunction. I WMSI = 2.00 % Normal = 0 Abnormal global longitudinal peak systolic value Segments Size X - Cannot 2 - 1-2 small Interpret 1 - Normal Hypokine tic 3 - Akinetic 4 - Dyskinetic3- 5 moderate 5 - Aneurysmal 6-14 large 15-16 diffuse 3D imaginD volumes were not performed in this st udy. Cardiac Mechanics/Speckle Tracking Imagi ng: Abnormal global longitudinal peak systol ic value. Strain Imaging was performed; GLPS avg = -7.3%. Diastology: Unable to evaluate due to rhythm. Right Ventricle: The right ventricle is normal in size an d function. Normal RV systolic function using TAPSE criteria. Atria: The left atrium is borderline dilated. R ight Atrium is dilated. Mitral Valve: The mitral valve is grossly normal. Ther e is mild to moderate mitral regurgitation. Tricuspid Valve: The tricuspid valve is not well visualiz ed, but is grossly normal. There is mild to moderate tricuspid regurgitation. Estimated RVSP is 40-45mmHg. Aortic Valve: The aortic valve is trileaflet. Mild aor tic valve thickening. The aortic valve opens well. Pulmonic Valve: The pulmonic valve is not well visualize d. Great Vessels: The aortic root is normal size. The infe rior vena cava is dilated with decreased respiratory variation. Pericardium/Pleural: There is no pericardial effusion. Preliminary Reviewer Preliminary Interpretation: Janice Saucedo MD. MMode/2D Measurements IVSd: 1.1 cm LVIDd: 5.1 cm LVIDs: 4.3 cm LVPWd: 1.00 cm FS: 15.4 % Ao root diam: 2.5 cm Ao root area: 5.1 cm2 LA dimension: 4.3 cm LVOT diam: 2.0 cm EDV(MOD-A4C): 121.9 ml ESV(MOD-A4C): 90.4 ml LVOT area: 3.2 cm2 EF(MOD-A4C): 25.8 % EDV(MOD-A2C): 134.8 ml ESV(MOD-A2C): 97.5 ml EDV(MOD-bp): 127.8 ml EF(MOD-A2C): 27.7 % ESV(MOD-bp): 98.9 ml EF(MOD-bp): 22.6 % LAV(MOD-A2C): 61.8 ml EDV (MOD-bp) Index: 63.1 ml/m2 LAV(MOD-A4C): 58.1 ml LAV(MOD-bp): 65.0 ml LAV(MOD-bp) Indexed: 32.1 ml/m2 ESV (MOD-bp) Index: 48.9 ml/m2 RWT: 0.39 cm TAPSE (>1.6): 1.9 cm Doppler Measurements MV E max cassidy: 111.4 cm/sec MV V2 max: 113.9 cm/sec MV max P.2 mmHg MV V2 mean: 68.2 cm/sec MV mean P.2 mmHg MV V2 VTI: 10.9 cm MVA(VTI): 3.9 cm2 MV dec time: 0.12 sec Ao V2 max: 122.5 cm/sec Ao max P.0 mmHg Ao V2 mean: 72.9 cm/sec Ao mean P.6 mmHg Ao V2 VTI: 18.7 cm THEO(I,D): 2.3 cm2 THEO(V,D): 2.2 cm2 LV V1 max P.9 mmHg MR max cassidy: 412.4 cm/sec LV V1 mean P.4 mmHg LV V1 max: 85.4 cm/sec LV V1 mean: 54.4 cm/sec LV V1 VTI: 13.4 cm SV(LVOT): 42.3 ml TR max cassidy: 272.6 cm/sec TR max P.7 mmHg RVSP(TR): 44.7 mmHg RAP systole: 15.0 mmHg THEO Index (I,D): 1.1 THEO Index (V,D): 1.1 Dimensionless Index: 0.70 23 Procedure Note Bienvenido Shea MD - 11/21/2021 Echocardiographic Report Interpretation Summary A complete two-dimensional transthoracic echocardiogram was performed (2D, M- mode, Spectral and color Doppler). Compared to prior study dated : 11/24/2016 . Stress Echocardiogram: LV systolic function has deteriorated considerably, it was 60-65% at rest and is now globally hypokinetic with dilated ventricle and severely depressed LV systolic function. LV is dilated using volumetric criteria. There is severe global LV systolic dysfunction. LV ejection fraction calculated using th e bi-plane method of disks is 23 %. The right ventricle is normal in size an d function. Right Atrium is dilated. Estimated RVSP is 40-45mmHg. There is no pericardial effusion. Dr. Nash was made aware of the above c hanges. Left Ventricle: LV is dilated using volumetric criteria. There is normal left ventricular wall thickness. LV ejection fraction calculated using the bi-plane method of disks is 23 %. There is severe global LV systolic dysfunction. I WMSI = 2.00 % Normal = 0 Abnormal global longitudinal peak systolic value Segments Size X - Cannot 2 - 1-2 small Interpret 1 - Normal Hypokinetic 3 - Akinetic 4 - Dyskinetic3-5 moderate 5 - Aneurysmal 6-14 large 15-16 diffuse 3D imaginD volumes were not performed in this [facility]. Cardiac Mechanics/Speckle Tracking Imagi ng: Abnormal global longitudinal peak systol ic value. Strain Imaging was performed; GLPS avg = -7.3%. Diastology: Unable to evaluate due to rhythm. Right Ventricle: The right ventricle is normal in size an d function. Normal RV systolic function using TAPSE criteria. Atria: The left atrium is borderline dilated. R ight Atrium is dilated. Mitral Valve: The mitral valve is grossly normal. Ther e is mild to moderate mitral regurgitation. Tricuspid Valve: The tricuspid valve is not well visualiz ed, but is grossly normal. There is mild to moderate tricuspid regurgitation. Estimated RVSP is 40-45mmHg. Aortic Valve: The aortic valve is trileaflet. Mild aor tic valve thickening. The aortic valve opens well. Pulmonic Valve: The pulmonic valve is not well visualize d. Great Vessels: The aortic root is normal size. The infe rior vena cava is dilated with decreased respiratory variation. Pericardium/Pleural: There is no pericardial effusion. Preliminary Reviewer Preliminary Interpretation: Janice Saucedo MD. MMode/2D Measurements IVSd: 1.1 cm LVIDd: 5.1 cm LVIDs: 4.3 cm LVPWd: 1.00 cm FS: 15.4 % Ao root chandni m: 2.5 cm Ao root are a: 5.1 cm2 LA dimensio n: 4.3 cm LVOT diam: 2.0 cm EDV(MOD-A4C ): 121.9 ml ESV(MOD-A4C ): 90.4 ml LVOT area: 3.2 cm2 EF(MOD-A4C) : 25.8 % EDV(MOD-A2C): 134.8 ml ESV(MOD-A2C): 97.5 ml EDV(MOD-bp) : 127.8 ml EF(MOD-A2C): 27.7 % ESV(MOD-bp) : 98.9 ml EF(MOD-bp): 22.6 % LAV(MOD-A2C): 61.8 ml EDV (MOD-bp ) Index: 63.1 ml/m2 LAV(MOD-A4C): 58.1 ml LAV(MOD-bp): 65.0 ml LAV(MOD-bp) Indexed: 32.1 ml/m2 ESV (MOD-bp) Index: 48.9 ml/m2 RWT: 0.39 c m TAPSE (>1.6): 1.9 cm Doppler Measurements MV E max cassidy: 111.4 cm/sec MV V2 max: 113. 9 cm/sec MV max P.2 mmHg MV V2 mean: 68. 2 cm/sec MV mean P.2 mmHg MV V2 VTI: 10.9 cm MVA(VTI): 3.9 c m2 MV dec time: 0.12 sec Ao V2 max: 122. 5 cm/sec Ao max P.0 mmHg Ao V2 mean: 72. 9 cm/sec Ao mean P.6 mmHg Ao V2 VTI: 18.7 cm THEO(I,D): 2.3 c m2 THEO(V,D): 2.2 c m2 LV V1 max P.9 mmHg MR max cassidy: 412 .4 cm/sec LV V1 mean P.4 mmHg LV V1 max: 85.4 cm/sec LV V1 mean: 54.4 cm/sec LV V1 VTI: 13.4 cm SV(LVOT): 42.3 ml TR max cassidy: 272 .6 cm/sec TR max P.7 mmHg RVSP(TR): 44.7 mmHg RAP systole: 15.0 mmHg THEO Index (I,D) : 1.1 THEO Index (V,D): 1.1 Dimensionless I ndex: 0.70 23 Performing Organization Address City/State/ZIP Code Phon e Number [facility] Add-On Test (11/18/2021 1:50 PM CYLINDER MACHINE OPERATOR) Pathologist Sig nature Ordered Test Added [facility]NER Test Needed TSH, Free T4 [facility] Specimen Existing Performing Organization Address City/State/ZIP Code Phon e Number [facility] Unless otherwise noted, [place] [address] [place] all lab tests performed by: Division of Pathology and Laboratory Medicine Anselmo Rawls COVID-19 (SARS-CoV-2) PCR-Asymptomatic (11/18/2021 12:07 PM CYLINDER MACHINE OPERATOR)Only the most recent of2 resultswithin the time period is included. COVID19 (SARS Not Detected Not Detected [facility] CoV-2) Result Comment: CANC[facility] CENTER This test is a qualitative r everse-transcriptase polymerase chain reaction (RT- PCR) developed for the [employer] DERECK 6800 system and intended for qualitative detection of SARS CoV-2 RNA in nasopharyngeal a nd oropharyngeal swab specimens collected from any individuals, including those suspected of COVID-19 by their healthcare provider, and those without symptoms or other reasons to suspect COVID-19. A fact sheet for patients provided by the pulp mill team leader ( [employer]) can be reviewed at: https://www.[employer].gov/media/13 6086/download. A fact sheet for Health Care providers is provided by the pulp mill team leader ([employer]) and can be reviewed at: https://www.[employer].gov/media/997928/download Results must be interpreted within the context of all relevant clinical and laboratory findings and should not form the sole basis for a diagnosis or treatment decision. Positive results do not rule out bacterial infection or co- infection with other viruses. Negative results do not rule out SARS-CoV-2 and must be combined with clinical observations, patient history, and/or epidemiological information. "Presumptive Positive" resul ts are due to partial amplification of SARS-CoV-2 targets and indicates low amounts of virus present in the specimen at or near the limit of detection. Regardless, individuals with "Presumptive Positive" results should be managed per institutional gu idelines as individuals positive for SARS-CoV-2 virus, including use of appropriate infection control protocols. Internal controls are includ ed to assess for possible amplification inhibitors. If inhibition is detected, testing is repeated and if inhibition is confirmed the specimen is resulted as "Invalid". When an "Invalid" result occurs, it is recommended to wait 3 days before submittin g a new specimen for testing if clinically indicated. This assay has been approve d by the FDA for use only under Emergency Use Authorization (EUA) in laboratories that have been CLIA-certified to perform moderate-complexity and high-complexity tests. The performance characteristics of this assay were verified by the Microbiology Laboratory at [facility], CLIA Accreditation #: [id number] and CAP Accreditation #: [id number]. COVID19 SARS SALESFORCE TRAINER Swab [facility] COVID19 SARS Pre-OR Procedure [facility] Indication [facility] Specimen Nasopharyngeal Swab Performing Organization Address City/State/ZIP Code Phon e Number [facility] Unless otherwise noted, [address] all lab tests performed by: Division of Pathology and Laboratory Medicine [address] [place] [address] (ABNORMAL) Urinalysis with Microscopic (11/18/2021 11:36 AM CYLINDER MACHINE OPERATOR) Pathologist Sig nature UA WBC 3 (H) 0 - 2 /HPF [facility] UA RBC <1 0 - 2 /HPF [facility] UA Mucous NOT SEEN Not Seen-Trace /HPF [facility] UA Bacteria NOT SEEN NOT SEEN /HPF [facility] UA Squam Epi OCC None-Occasional [facility] /HPF CENTER UA Trans Epi OCC (A) NOT SEEN /HPF [facility] Specimen Urine Narrative [facility]ANNER - 2 12:41 PM CYLINDER MACHINE OPERATOR Some reporting parameters within the Urinalysis test have changed due to the implementation of new in strumentation in the [facility], allowi ng greater sensitivity of measurement. Urinalysis results reported by the [facility] using existing instrumentation, as well as Urinalysis t esting performed manually or by backup methodology at the [facility] will remain relatively unchanged. New reporting parameters and units will now be reported for all campuses. Performing Organization Address City/State/ZIP Code Phon e Number [facility] Unless otherwise noted, [address] all lab tests performed by: Division of Pathology and Laboratory Medicine [address] [place] [address] [place] (ABNORMAL) Urinalysis w/Microscopic if Indicated (11/18/2021 11:36 AM CYLINDER MACHINE OPERATOR) Pathologist Sig nature UA Color Yellow Straw-Yellow [facility] UA Appear Clear Clear [facility] U[facility] Glucose NEG NEG mg/dL [facility] Bili NEG NEG [facility] Ketones NEG NEG mg/dL [facility] Spec Grav 1.025 1.003 - 1.035 [facility] UA Blood Small (A) NEG [facility] UA pH 5.0 5.0 - 9.0 [facility] U[facility] Protein 30 (A) NEG mg/dL [facility] Urobilinogen NEG NEG [facility] UA Nitrite NEG NEG [facility] UA Leuk Est Trace (A) NEG [facility] Specimen Urine Performing Organization Address [facility] Code Phon e Number [facility] CANCER Unless otherwise noted, [address] all lab tests performed by: Division of Pathology and Laboratory Medicine [address] [place] [address] (ABNORMAL) Urine Culture (11/18/2021 11:36 AM CYLINDER MACHINE OPERATOR) Final Report 10 - 50,000 cfu/ml Enterococcus faecalis [facility] ... CANCER CENTER <10,000 cfu/ml Normal site von present. (A) Path Review - The results have been review ed and electronically signed by Pathologist: [facility] Urine CHRISTAL BOURNE MD #[id number] CANCER [facility] (A) Organism Enterococcus faecalis [facility] (A) [facility] Specimen Urine, Clean Catch Organism Antibiotic Method Susceptibility Enterococcus faecalis *ROSEMARY expressed in MINIMUM INHIBITORY ROSEMARY: MINT mcg/mL CONCENTRATION Enterococcus faecalis Ampicillin MINIMUM INHIBITORY <=2: Cage sceptible CONCENTRATION Enterococcus faecalis Vancomycin MINIMUM INHIBITORY 1: Susc eptible CONCENTRATION Enterococcus faecalis Nitrofurantoin MINIMUM INHIBITORY <=16: S usceptible CONCENTRATION Performing Organization Address [facility] Phon e Number [facility] Unless otherwise noted, [place] [phone] [place] all lab tests performed by: Division of Pathology and Laboratory Medicine [address] [place] [address] (ABNORMAL) .Serum Creatinine (11/18/2021 11:23 AM CYLINDER MACHINE OPERATOR)Only the most recent of2 resultswithin the time period is included. Pathologist Sig nature Creatinine 1.11 (H) 0.51 - 0.95 mg/dL [facility] DIAGNOS IC CENTER Specimen Blood Performing Organization Address City/[facility]/ZIP Code Phon e Number [facility] DIAGNOSTIC Unless otherwise noted, [place] [phone] [place] all lab tests performed by: Division of Pathology and Laboratory Medicine [address] [place] [address] [place] (ABNORMAL) .CBC (11/18/2021 11:23 AM CYLINDER MACHINE OPERATOR)Only the most recent of2 resultswithin the time period is included. WBC 5.3 4.0 - 11.0 [facility] K/uL DIAGNOSTIC CENTER RBC 4.30 4.00 - 5.50 [facility] M/uL DIAGNOSTIC CENTER Hgb 11.9 (L) 12.0 - 16.0 [facility] gm/dL DIAGNOSTIC CENTER Hct 38.4 37.0 - 47.0 % [facility] DIAGNOSTIC [place] MCV 89 82 - 98 fL [facility]STIC [place] MCH 27.7 27.0 - 31.0 [facility] pg DIAGNOSTIC CENTER MCHC 31.0 31.0 - 36.0 [facility] gm/dL DIAGNOSTIC CENTER RDW-SD 49.9 (H) 35.1 - 46.3 [facility] fL DIAGNOSTIC CENTER RDW-CV 15.2 12.0 - 15.5 % [facility] Platelet count 214 140 - 440 [facility] K/uL DIAGNOSTIC CENTER MPV 9.7 4.0 - 10.4 fL [facility] DIAGNOSTIC [place] INRBC 0.0 <=0.0 % [facility] Comment: DIAGNOSTIC CENTER The INRBC (instrument NRBC) value reflects the enumera tion of nucleated red blood cells contained in a 200uL samp le of whole blood analyzed by the instrument. This value may differ from the NRBC value reported in a manual differ ential, which is based on a 100 cell differential. Specimen Blood Performing Organization Address City/State/ZIP Code Phon e Number [facility] DIAGNOSTIC Unless otherwise noted, [place], [place] [address] CENTER all lab tests performed by: Division of Pathology and Laboratory Medicine [address] [place] (ABNORMAL) Glomerular Filtration Rate (11/18/2021 11:23 AM CYLINDER MACHINE OPERATOR)Only the most recent of2 resultswithin the time period is included. eGFR-AA 58 (L) >=60 [facility] Comment: mL/min/1.73 DIAGNOSTIC CENTER Normal eGFR: >= 60 mL/min/1.73 m2 sq. m Note: The eGFR is calculated using the CKD-EPI equation. The eGFR declines with age. eGFR <60 mL/min/1.73 m2 is considered as "decreased". This equation should only be used for patients 18 and older. According to the National [facility]'s Kidney Disease Outcome Quality Initiative (KDOQI) classification and 2012 Kidney Disease Improving Global Outcomes (KDIGO) Clinical Practice Guideline, the stage of CKD should be categorized based on estimated GFR. Stage Description GFR mL/min/1.73 m2 1 Normal or high GFR >=90 2 Mildly decreased GFR 60-89 3a Mildly to moderately decreased GFR 45-59 3b Moderately to severely decreased GFR 30-44 4 Severely decreased GFR 15-29 5 Kidney failure <15 eGFR-EVELINA 50 (L) >=60 [facility] Comment: mL/min/1.73 DIAGNOSTIC CENTER Normal eGFR: >= 60 mL/min/1.73 m2 sq. m Note: The eGFR is calculated using the CKD-EPI equation. The eGFR declines with age. eGFR <60 mL/min/1.73 m2 is considered as "decreased". This equation should only be used for patients 18 and older. According to the [facility]'s Kidney Disease Outcome Quality Initiative (KDOQI) classification and 2012 Kidney Disease Improving Global Outcomes (KDIGO) Clinical Practice Guideline, the stage of CKD should be categorized based on estimated GFR. Stage Description GFR mL/min/1.73 m2 1 Normal or high GFR >=90 2 Mildly decreased GFR 60-89 3a Mildly to moderately decreased GFR 45-59 3b Moderately to severely decreased GFR 30-44 4 Severely decreased GFR 15-29 5 Kidney failure <15 Specimen Blood Performing Organization Address [facility] Phon e Number [facility] DIAGNOSTIC Unless otherwise noted, [address] all lab tests performed by: Division of Pathology and Laboratory Medicine [facility] Fractionated Bilirubin (11/18/2021 11:23 AM CYLINDER MACHINE OPERATOR) Pathologist [facility] Bili Total 1.0 <=1.2 mg/dL [facility] Comment: DIAGNOSTIC CENTER Indocyanine Green (ICG) may cause falsely elevated bilirubin results. Total and direct bilirubin must not be measured from samples containing indocyanine green. False elevation of total flora irubin can be seen in patients with IgG concentrations above 28 g/L. Bili Direct 0.3Comment: <=0.3 mg/dL [facility] Indocyanine Green DIAGNOSTIC CENTER (ICG) may cause falsely elevated bilirubin results. Total and direct bilirubin must not be measured from samples containing indocyanine green. Bili Indirect 0.7 0.0 - 0.9 [facility] mg/dL DIAGNOSTIC CENTER Specimen Blood Performing Organization Address City/[facility] e Number [facility] DIAGNOSTIC Unless otherwise noted, [address] all lab tests performed by: Division of Pathology and Laboratory Medicine [address] [facility] aPTT (11/18/2021 11:23 AM CYLINDER MACHINE OPERATOR) Pathologist Sig nature aPTT 35.9 24.7 - 36.8 second(s) [facility] Specimen Blood Narrative [facility] CANCER [place] - 12:18 PM CYLINDER MACHINE OPERATOR This lab cannot be scheduled at the foll owing locations due to collection/proccessing restrictions: [facility] and [facility]. Performing Organization Address City/[facility] Phon e Number [facility]ER Unless otherwise noted, [place] [address] CENTER all lab tests performed by: Division of Pathology and Laboratory Medicine [address] [place] [address] Differential (11/18/2021 11:23 AM CYLINDER MACHINE OPERATOR)Only the most recent of2 resultswithin the time period is included. Pathologist [facility] Neutrophil % 60.6 42.0 - 66.0 % [facility] Lymphocyte % 30.4 24.0 - 44.0 % [facility] Monocyte % 6.2 2.0 - 7.0 % [facility] Eosinophil % 2.4 1.0 - 4.0 % [facility] Basophil % 0.2 0.0 - 1.0 % [facility] IGRE % 0.2Comment: IGRE 0.0 - 0.4 % [facility] % count includes DIAGNOSTIC CENTER Metamyelocytes, Myelocytes, and Promyelocytes. Neutrophil Abs 3.23 1.70 - 7.30 [facility] CENTER Lymphocyte Abs 1.62 1.00 - 4.80 [facility] Monocyte Abs 0.33 0.08 - 0.70 [facility] Eosinophil Abs 0.13 0.04 - 0.40 [facility] DIAGNOSTIC [place] Basophil Abs 0.01 0.00 - 0.10 [facility] DIAGNOSTIC [place] IG Abs 0.01 0.00 - 0.04 [facility] DIAGNOSTIC CENTER Specimen Blood Performing Organization Address City/[facility] Phon e Number [facility] DIAGNOSTIC Unless otherwise noted, [place] [address] CENTER all lab tests performed by: Division of Pathology and Laboratory Medicine [address] [place] [address] (ABNORMAL) Prothrombin Time with INR (11/18/2021 11:23 AM CYLINDER MACHINE OPERATOR)Only the most recent of2 resultswithin the time period is included. Pathologist [facility] nature PT 14.2 (H) 11.5 - 13.9 [facility] CANCER second(s) CENTER INR 1.17 (H) 0.90 - 1.10 [facility] Specimen Blood Narrative [facility] - 12:18 PM CYLINDER MACHINE OPERATOR This lab cannot be scheduled at the foll owing locations due to collection/proccessing restrictions: [facility] and [facility]. Performing Organization Address [facility] Phon e Number [facility] CANCER Unless otherwise noted, [place] [phone] [place] all lab tests performed by: Division of Pathology and Laboratory Medicine [address] [place], [place] [address]d [place] 125 (11/18/2021 11:23 AM CYLINDER MACHINE OPERATOR)Only the most recent of3 resultswithin the time period is included. CA 125 11.1 <=38.0 U/mL [facility] Comment: DIAGNOSTIC Results greater than 11,500. 0 U/mL may not be reliable due to matrix effect with extended dilution as it exceeds the pulp mill team leader's recommended limit. Caution should be exercised when interpreting such values and done in conjunction with clinical CENTER context. This test is measured by jennie ctrochemiluminescence immunoassay on Baldev Dereck immunoassay analyzers. Results obtained in different methods are not interchangeable. Reference intervals are not available for male patients. Results should be interpreted in conjunction with clinical context. Specimen Blood Performing Organization Address [facility] Phon e Number [facility] DIAGNOSTIC Unless otherwise noted, [place], [place] [address] [place] all lab tests performed by: Division of Pathology and Laboratory Medicine [address] [place], [place] [address]vard BUN (11/18/2021 11:23 AM CYLINDER MACHINE OPERATOR)Only the most recent of2 resultswithin the time period is included. Pathologist Sig nature BUN 19 6 - 23 mg/dL [facility] DIAGNOSTIC CE NTER Specimen Blood Performing Organization Address [facility] Phon e Number [facility] DIAGNOSTIC Unless otherwise noted, [place], [place] [address] [place] all lab tests performed by: Division of Pathology and Laboratory Medicine [address] [place], [place] [address]vard ALT (11/18/2021 11:23 AM CYLINDER MACHINE OPERATOR) Pathologist Sig nature ALT 33 <=33 U/L [facility] DIAGNOSTIC CE NTER Specimen Blood Performing Organization Address [facility]/ZIP Code Phon e Number [facility] DIAGNOSTIC Unless otherwise noted, [place] [phone] [place] all lab tests performed by: Division of Pathology and Laboratory Medicine [address] [place] Aspartate Aminotransferase (11/18/2021 11:23 AM CYLINDER MACHINE OPERATOR) Pathologist Sig nature AST 32 <=32 U/L [facility] DIAGNOSTIC CE NTER Specimen Blood Performing Organization Address [facility]/ZIP [facility] Phon e Number [facility] DIAGNOSTIC Unless otherwise noted, [place], [place] [address] [place] all lab tests performed by: Division of Pathology and Laboratory Medicine [address] [place] TSH (11/18/2021 11:23 AM CYLINDER MACHINE OPERATOR) Pathologist Sig nature TSH 2.77 0.27 - 4.20 mcunit/mL [facility] CENTER Specimen Blood Performing Organization Address City/[facility]/ZIP Code Phon e Number [facility] CANCER Unless otherwise noted, [place] [address] [place] all lab tests performed by: Division of Pathology and Laboratory Medicine [address] [place] Free T4 (11/18/2021 11:23 AM CYLINDER MACHINE OPERATOR) Pathologist Sig nature T4 Free 1.57 0.93 - 1.70 ng/dL [facility] CANCER C ENTER Specimen Blood Performing Organization Address [facility]/ZIP Code Phon e Number [facility] CANCER Unless otherwise noted, [place] [phone] [place] all lab tests performed by: Division of Pathology and Laboratory Medicine [address] [place] Total Protein (11/18/2021 11:23 AM CYLINDER MACHINE OPERATOR) Pathologist Sig nature Total Protein 7.6 6.4 - 8.3 g/dL [facility] DIAGNOSTIC CENTER Specimen Blood Performing Organization Address City/[facility]/ZIP Code Phon e Number [facility] DIAGNOSTIC Unless otherwise noted, [place] [address] [place] all lab tests performed by: Division of Pathology and Laboratory Medicine [address] [place] Alkaline Phosphatase (11/18/2021 11:23 AM CYLINDER MACHINE OPERATOR) Pathologist Sig nature Alk Phos 84 35 - 104 U/L [facility] DIAGNOSTIC CE NTER Specimen Blood Performing Organization Address City/[facility]/ZIP Code Phon e Number [facility] DIAGNOSTIC Unless otherwise noted, [place] [address] [place] all lab tests performed by: Division of Pathology and Laboratory Medicine [address] [place] Glucose Level (11/18/2021 11:23 AM CYLINDER MACHINE OPERATOR) Glucose Level 97 70 - 99 mg/dL [facility] Comment: DIAGNOSTIC CENTER Effective 04/19/16, the gluco se reference intervals have been updated based on [place] [employer] guidelines (Standards of Medical Care in Diabetes 2016. Diabetes Care 2016; 39: S13-S22). Fasting blood glucose: Normal: 70-99 mg/dL Impaired fasting glucose (in creased risk for diabetes or pre-diabetes): 100- 125 mg/dL Diabetes mellitus: >/=126 mg/dL Random blood glucose: Normal: 70-199 mg/dL Note: Random glucose >100 mg/dL is assoc iated with increased risk for diabetes Specimen Blood Performing Organization Address [facility] Phon e Number [facility] DIAGNOSTIC Unless otherwise noted, [address] all lab tests performed by: Division of Pathology and Laboratory Medicine [address] [place] Calcium Level (11/18/2021 11:23 AM CYLINDER MACHINE OPERATOR) Pathologist Sig nature Calcium Lvl 10.0 8.4 - 10.2 mg/dL [facility] Specimen Blood Performing Organization Address [facility] Phon e Number [facility] DIAGNOSTIC Unless otherwise noted, [address] all lab tests performed by: Division of Pathology and Laboratory Medicine [address] [place] Albumin Level (11/18/2021 11:23 AM CYLINDER MACHINE OPERATOR) Pathologist Sig nature Albumin Lvl 4.3 3.5 - 5.2 gm/dL [facility] Specimen Blood Performing Organization Address [facility] Phon e Number [facility] DIAGNOSTIC Unless otherwise noted, [address] all lab tests performed by: Division of Pathology and Laboratory Medicine [address] [place] Electrolyte Panel (11/18/2021 11:23 AM CYLINDER MACHINE OPERATOR) Pathologist Sig nature Sodium Lvl 140 136 - 145 mEq/L [facility] Potassium Lvl 3.7 3.5 - 5.1 mEq/L [facility] Chloride 104 98 - 107 mEq/L [facility] CO2 26 22 - 29 mEq/L [facility] Anion Gap 10 4 - 14 mEq/L [facility] Specimen Blood Performing Organization Address City/State/ZIP Code Phon e Number [facility] DIAGNOSTIC Unless otherwise noted, [place] [address] CENTER all lab tests performed by: Division of Pathology and Laboratory Medicine [address] Hemoglobin A1c (11/18/2021 11:15 AM CYLINDER MACHINE OPERATOR) Pathologist Sig nature A1C 5.6 4.3 - 5.6 % [facility] Comment: CANCER CENTER HbA1c values >=6.5% are diagnostic of diabetes mellitu s. Diagnosis should be confirmed by repeat testing. Therapeutic Action suggested: >8.0% HbA1c; Goal of therapy: <7.0% HbA1c Specimen Blood Performing Organization Address City/State/ZIP Code Phon e Number [facility] CANCER Unless otherwise noted, [place] [address] CENTER all lab tests performed by: Division of Pathology and Laboratory Medicine [address] [place] EKG, 12-Lead (Scheduled) (11/16/2021) Specimen Narrative This result has an attachment that is no t available. Performing Organization Address [facility] Phon e Number [facility] IECG (ABNORMAL) US Chest for Breast Ultrasound (Add-on Only) (11/04/2021 1:27 PM CYLINDER MACHINE OPERATOR) Specimen Impressions [facility] - 11/04/2021 1:45 PM CYLINDER MACHINE OPERATOR No mammographic evidence of malignancy. A benign medial right breast mass is favored to be the abnormality seen on e recent screening mammogram (10/07/2021 from an outside facility), but the corre sponding reports are currently unavailable to know for sure. Acquisitio n of those reports is recommended. Continued yearly screening breast imagin g should be continued as clinically desired. BI-RADS Category 0: Incomplete: Needs Additional Imaging Eunice luation Narrative [facility] - 11/04/2021 1:45 PM CYLINDER MACHINE OPERATOR EXAMINATIONS: BILATERAL WHOLE-BREAST ULTRASOUND, COMPL ETE. ULTRASOUND CHEST. CLINICAL INDICATION: Abnormal screening mammogram. TECHNIQUE: Real-time sonographic imaging of both br easts (including all 4 quadrants and retroareolar region) was performed. Re al-time sonographic imaging of bilateral regional leo basins including the axil alana (level I, II, III) and internal mammary regions was performed. COMPARISON: Prior breast imaging dating back to 2017 (reports unavailable for the 10/07/2021 mammogram). BILATERAL BREAST ULTRASOUND: A subcentimeter circumscribed mass in th e right breast at 3:00, 10 cmfn is well seen on, and stable between, the 09/2021 nad 05/2017 chest [address]s. It will be classified as benign. No suspicious find ings are seen. BILATERAL LEO BASIN ULTRASOUND: No adenopathy. I notified the patient of the results an d their significance at the completion of today's imaging. Procedure Note Harvinder Mark MD - 11/04/2021 EXAMINATIONS: BILATERAL WHOLE-BREAST ULTRASOUND, COMPL ETE. ULTRASOUND CHEST. CLINICAL INDICATION: Abnormal screening mammogram. TECHNIQUE: Real-time sonographic imaging of both br easts (including all 4 quadrants and retroareolar region) was performed. [place] l-time sonographic imaging of bilateral regional leo basins including the axil alana (level I, II, III) and internal mammary regions was performed. COMPARISON: Prior breast imaging dating back to 2017 (reports unavailable for the 10/07/2021 mammogram). BILATERAL BREAST ULTRASOUND: A subcentimeter circumscribed mass in th e right breast at 3:00, 10 cmfn is well seen on, and stable between, the 09/2021 nad 05/2017 chest [address]s. It will be classified as benign. No suspicious find ings are seen. BILATERAL LEO BASIN ULTRASOUND: No adenopathy. I notified the patient of the results an d their significance at the completion of today's imaging. IMPRESSION: No mammographic evidence of malignancy. A benign medial right breast mass is favored to be the abnormality seen on e recent screening mammogram (10/07/2021 from an outside facility), but the corre sponding reports are currently unavailable to know for sure. Acquisitio n of those reports is recommended. Continued yearly screening breast imagin g should be continued as clinically desired. BI-RADS Category 0: Incomplete: Needs Additional Imaging Eunice carneyation Performing Organization Address City/State/ZIP Code Phon e Number [facility] (ABNORMAL) US Breast Complete - Bilateral (11/04/2021 1:27 PM CYLINDER MACHINE OPERATOR) Specimen Impressions [facility] - 11/04/2021 1:45 PM CYLINDER MACHINE OPERATOR No mammographic evidence of malignancy. A benign medial right breast mass is favored to be the abnormality seen on e recent screening mammogram (10/07/2021 from an outside facility), but the corre sponding reports are currently unavailable to know for sure. Acquisitio n of those reports is recommended. Continued yearly screening breast imagin g should be continued as clinically desired. BI-RADS Category 0: Incomplete: Needs Additional Imaging Eunice CROWELL - 11/04/2021 1:45 PM CYLINDER MACHINE OPERATOR EXAMINATIONS: BILATERAL WHOLE-BREAST ULTRASOUND, COMPL ETE. ULTRASOUND CHEST. CLINICAL INDICATION: Abnormal screening mammogram. TECHNIQUE: Real-time sonographic imaging of both br easts (including all 4 quadrants and retroareolar region) was performed. Re al-time sonographic imaging of bilateral regional leo basins including the axil alana (level I, II, III) and internal mammary regions was performed. COMPARISON: Prior breast imaging dating back to 2017 (reports unavailable for the 10/07/2021 mammogram). BILATERAL BREAST ULTRASOUND: A subcentimeter circumscribed mass in th e right breast at 3:00, 10 cmfn is well seen on, and stable between, the 09/2021 nad 05/[address]s. It will be classified as benign. No suspicious find ings are seen. BILATERAL LEO BASIN ULTRASOUND: No adenopathy. I notified the patient of the results an d their significance at the completion of today's imaging. Procedure Note Harvinder Mark MD - 11/04/2021 EXAMINATIONS: BILATERAL WHOLE-BREAST ULTRASOUND, COMPL ETE. ULTRASOUND CHEST. CLINICAL INDICATION: Abnormal screening mammogram. TECHNIQUE: Real-time sonographic imaging of both br easts (including all 4 quadrants and retroareolar region) was performed. [place] l-time sonographic imaging of bilateral regional leo basins including the axil alana (level I, II, III) and internal mammary regions was performed. COMPARISON: Prior breast imaging dating back to 2017 (reports unavailable for the 10/07/2021 mammogram). BILATERAL BREAST ULTRASOUND: A subcentimeter circumscribed mass in th e right breast at 3:00, 10 cmfn is well seen on, and stable between, the 09/2021 nad 05/[address] It will be classified as benign. No suspicious find ings are seen. BILATERAL LEO BASIN ULTRASOUND: No adenopathy. I notified the patient of the results an d their significance at the completion of today's imaging. IMPRESSION: No mammographic evidence of malignancy. A benign medial right breast mass is favored to be the abnormality seen on th e recent screening mammogram (10/07/2021 from an outside facility), but the corre sponding reports are currently unavailable to know for sure. Acquisitio n of those reports is recommended. Continued yearly screening breast imagin g should be continued as clinically desired. BI-RADS Category 0: Incomplete: Needs Additional Imaging Eunice luation Performing Organization Address City/State/ZIP Code Phon e Number [facility] Digital Diagnostic Bilateral with Abdelrahman (11/04/2021 12:27 PM CYLINDER MACHINE OPERATOR) Specimen Addenda Addendum by Harvinder Mark MD on 11/18/19 4:15 PM CYLINDER MACHINE OPERATOR ADDENDED REPORT ----- 11/18/2021 Addendum: The report from the 10/07/2021 screening mammogram is now available, and it turns out that the medial right breast m ass was NOT the indeterminate finding of interest identified on that exam. The re port describes bilateral indeterminate calcifications (right posterior UOQ and left mid-posterior UOQ). However, these calcifications are well seen and well ch aracterized on the images from this exam, and they can be described as follo ws: bilateral, similar-appearing, subcentimeter groups of coarse heterogen eous calcifications, and more than one has changed in size/extent. This is actu ally a characteristically benign imaging finding at mammography, and the calcific ations can be classified as BI-RADS 2. No further imaging is necessary. Continu ed yearly screening mammography is recommended. BI-RADS Category 2: Benign Finding(s) Impressions [facility] - 11/07/2021 9:52 AM CYLINDER MACHINE OPERATOR No mammographic evidence of malignancy. A benign medial right breast mass is favored to be the abnormality seen on th e recent screening mammogram (10/07/2021 from an outside facility), but the corre sponding reports are currently unavailable to know for sure. Acquisitio n of those reports is recommended. Continued yearly screening breast imagin g should be continued as clinically desired. BI-RADS Category 0: Incomplete: Needs Additional Imaging Eunice luadolfo Narrative [facility] - 11/07/2021 9:52 AM CYLINDER MACHINE OPERATOR CLINICAL INDICATION: Abnormal screening mammogram. MAMMO DIGITAL DIAGNOSTIC BILATERAL W MARTHA O Digital Mammogram evaluated with Compute r Aided Detection (CAD). COMPARISON: The present examination has been compare d to prior imaging studies performed at an outside location on 10/09/2016, 10/20 and 10/07/2021. FINDINGS: The breasts are almost entirely fatty. There is a tiny mass in the medial right breast that is well seen on both the 09/2021 and 05/[address]s. It is sta ble, is favored to be the etiology of the abnormal screening mammogram, and wi ll be classified as benign. No suspicious mass, asymmetry, calcificatio n, or distortion is seen. I notified the patient of the results and their sig nificance at the completion of today's imaging. Tomosynthesis performed in CC and MLO pr ojections. Procedure Note Harvinder Mark MD - 11/07/2021 CLINICAL INDICATION: Abnormal screening mammogram. MAMMO DIGITAL DIAGNOSTIC BILATERAL W MARTHA O Digital Mammogram evaluated with Compute r Aided Detection (CAD). COMPARISON: The present examination has been compare d to prior imaging studies performed at an outside location on 10/09/2016, 10/20 and 10/07/2021. FINDINGS: The breasts are almost entirely fatty. There is a tiny mass in the medial right breast that is well seen on both the 09/2021 and 05/[address]. It is sta ble, is favored to be the etiology of the abnormal screening mammogram, and wi ll be classified as benign. No suspicious mass, asymmetry, calcificatio n, or distortion is seen. I notified the patient of the results and their sig nificance at the completion of today's imaging. Tomosynthesis performed in CC and MLO pr ojections. IMPRESSION: No mammographic evidence of malignancy. A benign medial right breast mass is favored to be the abnormality seen on th e recent screening mammogram (10/07/2021 from an outside facility), but the corre sponding reports are currently unavailable to know for sure. Acquisitio n of those reports is recommended. Continued yearly screening breast imagin g should be continued as clinically desired. BI-RADS Category 0: Incomplete: Needs Additional Imaging Eunice luation Performing Organization Address City/State/ZIP Code Phon e Rajan CROWELL MD Microsatellite Instability (MSI) Analysis Interpretation and Report (10/26/2021 7:03 PM CYLINDER MACHINE OPERATOR) Specimen Narrative This result has an attachment that is no t available. 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 Consent: The procedure, risks, indicat ions and alternatives were explained. All questions were answered a nd informed consent was obtained. I have reviewed the history and physical dictated by the mid-level practitioner / fellow. Sedation/Anesthesia: Anesthesia provid ed by Anesthesia Department. Procedure in Detail: A time out was performed prior to the st art of the procedure and the correct patient, procedure, presence of consent, site, and side were confirmed with all members of the team. With the patient in the supine position, the skin overlying the area of interest was prepped and draped in the u sual sterile fashion. Lidocaine 1% was used for local anesthesia. Using an anterior approach under Compute d Tomography image-guidance, a 17 gauge needle was advanced down to the le ft pelvic mass. An image was obtained and placed into the medical rec ord. Samples were obtained for evaluation. Sampling: Cytology: A 22 gauge needle was use d to obtain sample(s) for cytologic assessment. Total number of samples: 3 Core Biopsy: An 18 gauge needle use d to obtain samples for surgical pathology evaluation. Total number of samples: 5 Specimens Disposition: Diagnostic Biopsy: The biopsy sampl es were submitted to pathology. Additional Comments: None Estimated Blood Loss: Minimal Immediate Complications: None Disposition: PACU Plan: 1. No follow-up with Interventional Radi ology required. (ABNORMAL) Cytology Image-Guided FNA Interpretation (10/25/2021 12:08 PM CYLINDER MACHINE OPERATOR) Gross Description A: [facility] Specimens procured: 3 Diff Quik; 3 Pap Stain Slides 10 ml, slightly cloudy bloody fluid in RPMI 1 Cell Block Date/Time Placed in Formalin: 10/25/21 1:09 PM Size: 1.0 cm Immediate assessment for specimen adequacy was made x1 by Dr. Maria. Immediate Assessment Adequate cellularity, [facility] favor malignant Major Classification MALIGNANT (A) [facility] Electr onically signed by Diamante Maria MD on 10/27/2021 at 6: 42 PM Diagnosis A. Soft tissue, left pelvic, fine needle aspiration: [facility] Electronically signed by Diamante Sainz HIGH GRADE CARCINOMA CONSIST ENT WITH PATIENT'S HISTORY OF [facility] (see comment) MD Candace on 10/27/2021 at 6: 42 PM Comment Immunostains performed on th e cell block sections show that the tumor cells are positive for PAX-8, WT-1 (focal), p53 (diffuse) and ER (30% of tumor cell nuclei). These findings are in keeping with the patient's known history of serous carcinoma. [facility] The cell block preparation was contributory towards th e above diagnosis. A concurrent core needle biopsy ([id number]) is also theo ilable. Retained/Biomarker SR:7S, 2CB, 4IP [facility] Testing MDL CB:50-300 MDL Pap:3S MDL DQ:1S MDL FISH:1S Informational Points Some tests reported [facility] here may have been developed and performance characteristics determined by [facility]. These tests have not been specifically cleared or approved by the U.S. Food and Drug Administration. This case originated at [facility], [address] [place] [id number]. Specimen Fine Needle Asp - Pelvis, Left Performing Organization Address City/State/ZIP Code Phon e Number [facility] [place] [address] [address] [facility] Pathology Biopsy Interpretation (10/25/2021 12:07 PM CYLINDER MACHINE OPERATOR)Only the most recent of 2 resultswithin the time period is included. 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 (SEE COMMENT) signed by Mookie Valdes on BCL/FMT 10/27/2021 at 6: 21 PM Comment Immunohistochemical [facility] stains are performed and show the neoplastic cells to be positive for cytokeratin 7 (patchy), PAX-8, p16 (strong, diffuse), p53 (aberrant over-expression), ER (80%, moderate), and AL (95%, moderate to strong). The histologic and immunohistochemical findings are in keeping with the above diagnosis. Gross Description A: [facility] Left pelvic soft tissue nodu le biopsy with biomarkers: Multiple nicole-white core biopsies measuring 1.4 x 0.5 x 0.1 cm in aggregate, entirely submitted in A1. GM Biomarker T: A1 [facility] Block(s) N: N/A Disclaimer "Some tests reported here [facility] may have been developed and performance characteristics determined by [facility]. These tests have not been specifically cleared or approved by the U.S. Food and Drug Administration. If applicable, controls were reviewed and showed appropriate reactivity." Specimen Tissue - Pelvis, Left Performing Organization Address City/State/ZIP Code Phon e Number [facility] [place] [address] [address] EKG, 12-Lead (Portable) (10/25/2021) Specimen Narrative This result has an attachment that is no t available. Performing Organization Address City/State/[facility] Code Phon e Number [facility] IECG Glucose, Random (10/24/2021 9:56 AM CYLINDER MACHINE OPERATOR) Glucose Random 108 70 - 199 mg/dL [facility] Comment: REGION Effective 04/19/16, the gluco se reference intervals have been updated based on [place] Diabetes [employer] guidelines (Standards of Medical Care in Diabetes 2016. Diabetes Care 2016; 39: S13-S22) Fasting blood glucose: Normal: 70-99 mg/dL Impaired fasting glucose (in creased risk for diabetes or pre-diabetes): 100-125 mg/dL Diabetes mellitus: >/= 126 mg/dL Random blood glucose: Normal: 70-199 mg/dL Note: Random glucose >100 mg/dL is assoc iated with increased risk for diabetes Testing performed at [facility], [address] [address] [facility] [address], [place] [address] Specimen Blood Performing Organization Address City/State/[place] [address] Anion Gap (10/24/2021 9:56 AM CYLINDER MACHINE OPERATOR) Pathologist Sig nature Anion Gap 7Comment: Testing 4 - 14 mEq/L [facility] performed at [facility], [address], [place] [address] Specimen Blood Performing Organization Address City/State/[place] [address] Sodium Level (10/24/2021 9:56 AM CYLINDER MACHINE OPERATOR) Pathologist Sig nature Sodium Lvl 140Comment: Testing 136 - 145 mEq/L [facility] performed at [facility], [address], [place] [address] Specimen Blood Performing Organization Address City/[facility]/ZIP [facility] [place] [address] Potassium (10/24/2021 9:56 AM CYLINDER MACHINE OPERATOR) Potassium Lvl 3.8Comment: Testing 3.5 - 5.1 [facility] performed at [facility] mEq/L [facility], [address], [place] [address] Specimen Blood Performing Organization Address City/[facility]/[place] [address] (ABNORMAL) Chloride Level (10/24/2021 9:56 AM CYLINDER MACHINE OPERATOR) Pathologist Sig nature Chloride 108 (H)Comment: 98 - 107 mEq/L [facility] Testing performed at [facility], [address], [place] [address] Specimen Blood Performing Organization Address City/State/[place] [address] Carbon Dioxide Level (10/24/2021 9:56 AM CYLINDER MACHINE OPERATOR) Pathologist Sig nature CO2 25Comment: Testing 22 - 29 mEq/L [facility] performed at [facility], [address], [place] [address] Specimen Blood Performing Organization Address City/State/ZIP Code Phon e Number [facility] [place] [address] [address] Ruggiero MD MSI by PCR Material Request (10/16/2021 4:50 PM CYLINDER MACHINE OPERATOR) Pathologist Sig nature Archived Material Previously diagnosed [facility] [place] tissues from [id number] were selected for molecular analysis. Results will be reported separately. Specimen Tissue Performing Organization Address City/[facility]/[place] [address] [address] IHC MSI (MLH1, MSH2, MSH6, PMS2) Material Request (10/16/2021 4:50 PM CYLINDER MACHINE OPERATOR) Specimen Tissue Performing Organization Address City/State/[place] [address] [address] IHC HER2/laura Material Request (10/16/2021 4:50 PM CYLINDER MACHINE OPERATOR) Specimen Tissue Performing Organization Address City/[facility]/[place] [address] Chest Abdomen Pelvis with Contrast (10/13/2021 8:37 AM CYLINDER MACHINE OPERATOR) Specimen Impressions [id number] - 10/13/2021 9:04 AM CYLINDER MACHINE OPERATOR Interval development of a 1.3 x 1.3 cm n odule in the peritoneum along the left lower pelvis [series 3, image 246]. Given the reported history of increasing CA- 125 levels, this is concerning for a peritoneal implant. Other findings as described above. Narrative [id number] - 10/13/2021 9:04 AM CYLINDER MACHINE OPERATOR FULL RESULT: Examination: CT CHEST ABDOMEN PELVIS W C ONTRAST, 10/13/2021 8:37 AM Clinical History: History of malignant n eoplasm of endometrium Malignant neoplasm of endometrium Indication: COVID-19 Not Suspected, Hx o f uterine serous carcinoma, recent increase in CA-125-> Please evaluate for recurrent/metastatic disease Comparison: 06/01/2017 Technique: CT of the chest, abdomen, and pelvis was performed with intravenous contrast. Findings: CT chest A couple of borderline prominent right p aratracheal nodes seen, possibly reactive but can be monitored [for example 9 and 7 mm right paratracheal nodes on series 3, image 27]. No enlarged pulmonary nodules. Couple of tiny nonspecific pulmonary nodules are seen, stable since prior study, likely post inflammatory and can be observed [for example series 3, image 52]. Mild groundglass changes are seen in the lungs, possibly secondary to underinflation versus inflammation/infection and can be clinically correlated. CT abdomen and pelvis Diffuse hepatic steatosis. Liver has a m ottled heterogenous parenchyma. Part of this is felt to be secondary to congestive hepatopathy, given the associated findings of mild cardiomegaly and dilated inf erior vena cava and hepatic veins. Howev er, this does limit evaluation of the liver for small hepatic lesions and can be monitored on the follow-up studies. Spleen, pancreas and adrenals are unrema rkable. No hydronephrosis. Small renal cysts and several tiny, too small to characterize renal hypodensities are again seen. No collections in the pelvis. No ascites . Small hiatal hernia. No new enlarged abdominal pelvic nodes. Few small nonspecific nodes are seen in the abdomen and pelvis, likely reactive. A previously noted subcutaneous cystic f ocus in the left lower back is slightly increased and measures 3 cm, possibly sebaceous cyst and can be clinically correlated. As per the transcribed clinical notes, p atient is status post hysterectomy and bilateral salpingo-oophorectomy. Interval development of a 1.3 x 1.3 cm nodule in the peritoneum along the left lower pelvi s [series 3, image 246]. Given the repor elena history of increasing CA-125 levels, this is concerning for a peritoneal implant. Procedure Note Lauren Sultana MD - 022 FULL RESULT: Examination: CT CHEST ABDOMEN PELVIS W C ONTRAST, 10/13/2021 8:37 AM Clinical History: History of malignant n eoplasm of endometrium Malignant neoplasm of endometrium Indication: COVID-19 Not Suspected, Hx o f uterine serous carcinoma, recent increase in CA-125-> Please evaluate for recurrent/metastatic disease Comparison: 06/01/2017 Technique: CT of the chest, abdomen, and pelvis was performed with intravenous contrast. Findings: CT chest A couple of borderline prominent right p aratracheal nodes seen, possibly reactive but can be monitored [for example 9 and 7 mm right paratracheal nodes on series 3, image 27]. No enlarged pulmonary nodules. Couple of tiny nonspecific pulmonary nodules are seen, stable since prior study, likely post inflammatory and can be observed [for example series 3, image 52]. Mild groundglass changes are seen in the lungs, possibly secondary to underinflation versus inflammation/infection and can be clinically correlated. CT abdomen and pelvis Diffuse hepatic steatosis. Liver has a m ottled heterogenous parenchyma. Part of this is felt to be secondary to congestive hepatopathy, given the associated findings of mild cardiomegaly and dilated inferior vena cava and hepatic veins. However, this does li leo evaluation of the liver for small hepatic lesions and can be monitored on the follow-up studies. Spleen, pancreas and adrenals are unrema rkable. No hydronephrosis. Small renal cysts and several tiny, too small to characterize renal hypodensities are again seen. No collections in the pelvis. No ascites . Small hiatal hernia. No new enlarged abdominal pelvic nodes. Few small nonspecific nodes are seen in the abdomen and pelvis, likely reactive. A previously noted subcutaneous cystic f ocus in the left lower back is slightly increased and measures 3 cm, possibly sebaceous cyst and can be clinically correlated. As per the transcribed clinical notes, p ceci is status post hysterectomy and bilateral salpingo-oophorectomy. Interval development of a 1.3 x 1.3 cm nodule in the peritoneum along the left lower pelvis [series 3, image 246]. Given the reported history of incr easing CA-125 levels, this is concerning for a peritoneal implant. IMPRESSION: Interval development of a 1.3 x 1.3 cm n odule in the peritoneum along the left lower pelvis [series 3, image 246]. Given the reported history of increasing CA- 125 levels, this is concerning for a peritoneal implant. Other findings as described above. Performing Organization Address City/State/ZIP Code Phon e Number [id number] POC Creatinine (10/13/2021 7:55 AM CYLINDER MACHINE OPERATOR) POC Crea 0.9 0.6 - 1.3 POC [facility] Comment: mg/dL Medications, especially hydr oxyurea or supplements, such as ascorbate, can interfere with test results causing a falsely and significantly higher result than expected. If a problem is suspected with a patient's result, a sample should be sent to the laboratory for confirmatory testing. Method description: The Feusd AT is an analyzer used for in vitro quantification of various analytes in whole blood. The device uses a single disposable cartridge which contains microfabricated sensors, a calibration solution, fluidics system, and a waste chamber. Each test cartridge contains chemically sensitive biosensors on a silicon chip that are configured to perform specific tests. The microfabricated sensors measure analyte concentration by an electrochemical assay. POC eGFR-AA 75 >=60 POC [facility] Comment: mL/min/1.73 m2 Normal eGFR >= 60 mL/min/1.73 m2 The eGFR is calculated using the CKD-EPI equation. The eGFR declines with age. eGFR <60 mL/min/1.73 m2 is considered as "decreased" This equation should only be used for patients 18 and older. According to the National dney Foundation's Kidney Disease Outcome Quality Initiative (KDOQI) classification and 2012 Kidney Disease Improving Global Outcomes (KDIGO) Clinical Practice Guideline, the stage of CKD should be categorized based on estimated GFR. Stage Description GFR mL/min/1.73 m2 1 Kidney damage with normal or high GFR >=90 2 Kidney damage with mild decrease in GFR 60-89 3a Mild to moderate decrease in GFR 45-59 3b Moderate to severe decrease in GFR 30-44 4 Severe decrease in GFR 15-29 5 Kidney failure <15 (or dialysis) POC eGFR-EVELINA 65 >=60 POC [facility] Comment: mL/min/1.73 m2 Normal eGFR >= 60 mL/min/1.73 m2 The eGFR is calculated using the CKD-EPI equation. The eGFR declines with age. eGFR <60 mL/min/1.73 m2 is considered as "decreased" This equation should only be used for patients 18 and older. According to the National dney Foundation's Kidney Disease Outcome Quality Initiative (KDOQI) classification and 2012 Kidney Disease Improving Global Outcomes (KDIGO) Clinical Practice Guideline, the stage of CKD should be categorized based on estimated GFR. Stage Description GFR mL/min/1.73 m2 1 Kidney damage with normal or high GFR >=90 2 Kidney damage with mild decrease in GFR 60-89 3a Mild to moderate decrease in GFR 45-59 3b Moderate to severe decrease in GFR 30-44 4 Severe decrease in GFR 15-29 5 Kidney failure <15 (or dialysis) POC Clean Dev Yes POC [facility] Performing Lab DI WestComment: POC [facility] Diagnostic Imaging [facility], [address] [place] [address]; [employer] Sales Representative: Eli Beard MD Specimen Blood Performing Organization Address City/State/ZIP Code Phon e Number POC [facility] OSI Mammo (10/07/2021 4:29 PM CYLINDER MACHINE OPERATOR) Specimen Narrative [facility] - 10/28/2021 4:29 PM CYLINDER MACHINE OPERATOR Study acquired at another institution. For comparison only. No MD Donaldson originated interpretation requested or a vailable. Performing Organization Address City/State/ZIP Code Phon e Number [id number] Bone Density Study (10/07/2021 4:29 PM CYLINDER MACHINE OPERATOR) Specimen Narrative Systemgenerated, Documentation - 022 4:29 PM CYLINDER MACHINE OPERATOR Study acquired at another institution. For comparison only. No MD Donaldson originated interpretation requested or a vailable. [facility]SI Chest (12/23/2020 4:29 PM CDT) Specimen Narrative Systemgenerated, Documentation - 022 4:30 PM CYLINDER MACHINE OPERATOR Study acquired at another institution. For comparison only. No MD Donaldson originated interpretation requested or a vailable. after 12/01/2020 Insurance Payer Benefit Plan / Subscriber ID Effective Dates Phone Addre ss Type Group [employer] MEDICARE AETNA MEDICARE [id number] 2019-Presen [address] [place] [address] Advance Directives Code Status Date Activated Date Inactivated Comments Full Code 11/28/2016 11:38 AM 11/29/2016 1:23 PM Care Teams Chili Pepper Grinder Relationship Specialty Start Date End Date Deonna Leiva, PCP - General Gynecologic Medical 10/30/16 MD Oncology [address] [place] [id number] Denzel Pritchett PCP - External Obstetrics/Gynecology 10/30/16 "Hattie"MD Referring Mateo Chavez PCP - External Primary Internal Medicine 11/08/16 MD Malena Care Provider [address] [place] [id number]
--- OUTSIDE RECORDS SUMMARY | 2021-12-01 23:42 | XMS REPORT | Continuity of Care Document ---
:1950 Author Organization [facility] t Address [address] [place] [address] Care Team Providers Name Role Phone [phone] Primary Care Physician Unavailable SYSTEM, PROVIDER NOT IN Attending Clinician Unavailable Viraj LEIVA Attending Clinician Unavailable Saad VUONG Attending Clinician SAAD Attending Clinician Unavailable Hudson VUONG Attending Clinician HUDSON Attending Clinician Unavailable Margaret Sanchez MA Attending Clinician Unavailable Mirna NICOLE, M Attending Clinician Unavailable Viraj Leiva MD Attending Clinician Mayra Baird MD Attending Clinician NEISHA Attending Clinician Unavailable Neisha PÉREZ Attending Clinician Yoselyn NICOLE, L Attending Clinician SUNSHINE Attending Clinician Unavailable Sunshine PÉREZ Attending Clinician León Rosenberg MD Attending Clinician Shi Hoffman MD Attending Clinician Ninoska BARCLAY Attending Clinician Minnie Mera MD Attending Clinician Lukas NICOLE Attending Clinician Unavailable Keila Dupont Attending Clinician Niya HUNT M Attending Clinician Unavailable Chris HUNT Attending Clinician Unavailable Carey VUONG Attending Clinician GARETH CUELLAR Attending Clinician Unavailable Viraj LEIVA Admitting Clinician Unavailable GARETH CUELLAR Admitting Clinician Unavailable Payers Payer Name Policy Type Policy Number Effective Date Expiration Date Candelario LOPEZ MEDICARE PPO [id number] 2019 00:00:00 Problems Condition Condition Condition Status Onset Resolution Last Treating Co mments Source Name Details Category Date Date Treatment Clinician Date Metastatic Metastatic Disease Active 0 M D cancer to cancer to 10-14 Ronan rso the the 00:00: n peritoneum peritoneum 00 Cardiomega Cardiomega Disease Active M D ly ly 10-14 Anderso 00:00: n 00 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 Other Other Disease Active MD specified specified 04-25 Ronan rso polyneurop polyneurop [...] Morbid Disease Active Overview: (severe) (severe) 2-15 Formattin And erso obesity obesity 00:00: g of this n due to due to 00 note excess excess might be calories calories different from the original. 11/21/2016 Body mass index is 41.48 kg/(m^2). Weight: (!) 106.2 kg (234 lb 2.1 oz) [place] body weight: 52.4 kg (115 lb 7.7 [...] PCP for managemen t of this issue. Neoplasm, Neoplasm, Disease Active malignant malignant 2-15 Ronan rso of of 00:00: n endometriu endometriu 00 m m History of History of Disease Resolve 2021-10-28 2021-10-28 malignant malignant d 4-18 00:00:00 15:19:48 Anderso neoplasm neoplasm 00:00: n of of 00 endometriu endometriu m m Allergies, Adverse Reactions, Alerts This patient has no known allergies or adverse reactions. Family History Family Member Diagnosis Comments Start Date Stop Date Source Natural father Heart attack Lester son Natural mother Heart attack Lester son Natural mother Hypertension MD Lester son Social History Social Habit Start Date Stop Date Quantity Comments Source History of tobacco Current smoker MD Donaldson use History [facility] MD Donaldson Alcohol Frequency History [facility] MD Donaldson Alcohol Std Drinks History [facility] MD Donaldson Alcohol Binge Exposure to Not sure MD Donaldson SARS-CoV-2 (event) Alcohol intake 2021-11-18 2021-11-18 Current drinker of MD Donaldson 00:00:00 00:00:00 alcohol (finding) Tobacco use and 2016-11-08 2016-11-08 Smokeless tobacco MD Donaldson exposure 00:00:00 00:00:00 non-user History [facility] 2016-11-08 2016-11-08 social drinker Lester phelps Alcohol Comment 00:00:00 00:00:00 Tobacco Comment 2016-11-08 2016-11-08 quit 30yrs ago MD Jazmin ackerman 00:00:00 00:00:00 Sex [birth year] MD Medrano on 00:00:00 00:00:00 Smoking Status Start Date Stop Date Source Ex-smoker 2016-11-08 00:00:00 2016-11-08 00:00:00 Lesterregina phelps Medications Ordered Filled Start Stop Current Ordering Indication Dosage Frequency Signature Comments Components Source Medication Medication Date Date Medication? Clinician (SIG) Name Name acetaminoph Yes 650mg Take 650 M D en 3-07 mg by Anderso (TYLENOL) 08:37: mouth n 325 mg 27 every 6 tablet (six) hours as needed for mild pain. TURMERIC Yes 1{tbl} Take 1 MD ORAL 3-07 tablet by Anderso 08:37: mouth n 23 daily. amLODIPine 2021- No 5mg Take 5 mg M D (NORVASC) 5 2-16 11-23 by mouth And erso mg tablet 10:20: 00:00 twice n 17 :00 daily. aspirin 81 2021- No 81mg Take 81 mg MD mg EC 11-16- by mouth Anderso tablet 10:19: 00:00 daily. n 29 :00 Reported on 01/24/2017 DIGOXIN 2021-0 2021- No 125mg Take 125 MD ORAL -16 11-23 mg by Anderso 10:19: 00:00 mouth n 20 :00 daily. metoprolol Yes Coronary 25mg Take 1 M D tartrate 2-23 artery tablet (25 And erso (LOPRESSOR) 00:00: disease due mg) by n 25 mg 00 to mouth tablet calcified twice coronary daily. lesion ondansetron 2020-09 Yes 1{tbl} Take 1 MD (ZOFRAN) 4 1-05 tablet by Ronan rso mg tablet 00:00: mouth as n 00 needed. levothyroxi 2020-09 Yes 1{tbl} Take 1 MD ne 0-15 tablet by Anderso (SYNTHROID, 00:00: mouth n LEVOTHROID) 00 daily. 25 mcg tablet famotidine 2020-09 Yes 1{tbl} Take 1 MD (PEPCID) 20 0-15 tablet by And erso mg tablet 00:00: mouth n 00 daily. triamterene 2020- No 1{tbl} Take 1 M D -hydroCHLOR 6-30 06-30 tablet by An derso Othiazide 12:22: 00:00 mouth n (MAXZIDE-25 40 :00 every ) 37.5 morning. mg-25 mg per tablet traMADol Yes 1{tbl} Take 1 MD (ULTRAM) 50 6-21 tablet by And erso mg tablet 00:00: mouth as n 00 needed. pravastatin Yes 1{tbl} Take 1 MD (PRAVACHOL) 6-13 tablet by And erso 20 mg 00:00: mouth n tablet 00 daily. clopidogrel Yes 1{tbl} Take 1 MD (PLAVIX) 75 6-12 tablet by And erso mg tablet 00:00: mouth n 00 daily. spironolact Yes 1{tbl} Take 1 MD one 6-12 tablet by Anderso (ALDACTONE) 00:00: mouth n 25 mg 00 daily. tablet sulfamethox 2021- No 1{tbl} Take 1 M D azole-trime 4-04 02-23 tablet by An derso thoprim 00:00: 00:00 mouth n (BACTRIM 00 :00 daily. DS) 800 mg-160 mg per tablet ergocalcife 2021- No 50015F 50,000 M D rol 4- 02-23 Units Anderso (DRISDOL) 00:00: 00:00 every 30 n 50,000 00 :00 (thirty) units days. capsule losartan 2019-09 Yes (COZAAR) 50 1-28 Anderso mg tablet 00:00: n 00 Immunizations Ordered Immunization Filled Immunization Date Status Commen ts Source Name Name Pfizer SARS-CoV-2 2021-05-14 Completed Ronan rson Vaccination 00:00:00 Pfizer SARS-CoV-2 2021-04-25 Completed Ronan rson Vaccination 00:00:00 Vital Signs Vital Name Observation Time Observation Value Comments Source Systolic blood 2021-11-28 20:15:00 142 mm[Hg] pt aware to take MD Donaldson pressure home medication for blood pressure. Diastolic blood 2021-11-28 20:15:00 97 mm[Hg] pt aware to take Mookie Donaldson pressure home medication for blood pressure. Heart rate 2021-11-28 20:15:00 86 /min MD Lester phelps Body temperature 2021-11-28 20:15:00 36.28 Clarisse MD Bernardo felder Respiratory rate 2021-11-28 20:15:00 18 /min MD Bernardo felder Oxygen saturation 2021-11-28 20:15:00 97 /min MD Donalsdon in Arterial blood by Pulse oximetry Body weight 2021-11-28 15:18:00 102.059 kg MD Lester phelps BMI 2021-11-28 15:18:00 39.13 kg/m2 MD Lester phelps Procedures Procedure Date / Time Performed Performing Clinician Sourc e COMBINED RIGHT AND LEFT 2021-11-28 16:10:48 Oralia Coronel MD HEART CATH POC OXIMETRY VENOUS 2021-11-28 15:44:00 Oralia Coronel MD POC OXIMETRY ARTERIAL 2021-11-28 15:35:00 Oralia Coronel MD And erson POC GLUCOSE SCREEN 2021-11-28 14:47:00 Oralia Coronel MD on TYPE AND SCREEN 2021-11-28 13:41:00 Star Altamirano MD ABORH 2021-11-28 13:41:00 Star Altamirano MD ANTIBODY SCREEN 2021-11-28 13:41:00 Star Altamirano MD TMP INTERPRETATION ANTIBODY 2021-11-28 13:41:00 Star Altamirano MD SCREEN NEGATIVE CLOT EXPIRATION DATE 2021-11-28 13:41:00 Star Altamiranoe rson ECHOCARDIOGRAM 2D COMPLETE 2021-11-21 13:51:52 Oralia Coronel GENERAL LABORATORY ADD ON 2021-11-18 19:50:00 Susan Baird MD TEST COVID-19 (SARS-COV-2) 2021-11-18 18:07:00 Dana Leiva MD PCR-ASYMPTOMATIC MC URINE CULTURE 2021-11-18 17:36:00 Dana Leivaers on URINALYSIS WITH MICROSCOPIC 2021-11-18 17:36:00 Dana Leiva MD IF INDICATED URINALYSIS MICROSCOPIC 2021-11-18 17:36:00 Dana Leiva MD CANCER ANTIGEN 125 2021-11-18 17:23:00 Martha, Dana Cali MD And erson COMPLETE BLOOD COUNT W/ 2021-11-18 17:23:00 Dana Leiva DIFFERENTIAL COMPREHENSIVE METABOLIC 2021-11-18 17:23:00 Dana Leiva PANEL PROTHROMBIN TIME 2021-11-18 17:23:00 Martha, Dana Cali MD Lester son APTT 2021-11-18 17:23:00 Martha, Dana Cali MD Mitchell on Results CBC 2021-11-18 17:23:00 Martha, Dana Cali MD Mitchell on MANUAL DIFFERENTIAL 2021-11-18 17:23:00 Dana Leiva MD GLUCOSE LEVEL 2021-11-18 17:23:00 Martha, Dana Cali MD Mitchell on BLOOD UREA NITROGEN 2021-11-18 17:23:00 Dana Leiva MD ELECTROLYTE PANEL 2021-11-18 17:23:00 Dana Leiva MD Ronan rson SERUM CREATININE 2021-11-18 17:23:00 Dana Leiva MD Lester son .GLOMERULAR FILTRATION RATE 2021-11-18 17:23:00 Dana Leiva MD CALCIUM LEVEL TOTAL 2021-11-18 17:23:00 Dana Leiva MD ALBUMIN LEVEL 2021-11-18 17:23:00 Dana Leivaers on ALKALINE PHOSPHATASE 2021-11-18 17:23:00 Dana Leiva MD ALANINE AMINOTRANSFERASE 2021-11-18 17:23:00 Dana Leiva MD ASPARTATE AMINOTRANSFERASE 2021-11-18 17:23:00 Dana Levia MD TOTAL PROTEIN 2021-11-18 17:23:00 Dana Leiva MD on FRACTIONATED BILIRUBIN 2021-11-18 17:23:00 Dana Leiva MD THYROID STIMULATING HORMONE 2021-11-18 17:23:00 Dana Leiva MD FREE THYROXINE 2021-11-18 17:23:00 Dana Leiva MD on TYPE AND SCREEN 2021-11-18 17:15:00 Dana Leiva MD on HEMOGLOBIN A1C 2021-11-18 17:15:00 Dana Leiva MD on ABORH 2021-11-18 17:15:00 Dana Leiva MD on ANTIBODY SCREEN 2021-11-18 17:15:00 Dana Leiva MD on TMP INTERPRETATION ANTIBODY 2021-11-18 17:15:00 Dana Leiva MD SCREEN NEGATIVE CLOT EXPIRATION DATE 2021-11-18 17:15:00 Dana Leiva MD EKG, 12-LEAD (SCHEDULED) 2021-11-16 00:00:00 Los Maguire MD US BREAST COMPLETE BILATERAL 2021-11-04 19:27:00 Christian Driver MD US CHEST 2021-11-04 19:27:00 Christian Driver MD MAMMO DIGITAL DIAGNOSTIC 2021-11-04 18:27:05 Christian Driver MD BILATERAL W OSWALDO HP MD [facility] 2021-10-27 01:03:00 Dana Leiva MD INSTABILITY (MSI) ANALYSIS INTERPRETATION AND REPORT IR CT GUIDED BIOPSY PELVIC 2021-10-25 19:03:06 Dana Leiva MD NON-BONE CYTOLOGY IMAGE-GUIDED FNA 2021-10-25 18:08:00 Dana Leiva MD INTERPRETATION PATHOLOGY BIOPSY 2021-10-25 18:07:00 Dana Leiva MD son INTERPRETATION EKG, 12-LEAD (PORTABLE) 2021-10-25 00:00:00 Genaro Mcclelland MD COMPLETE BLOOD COUNT W/ 2021-10-24 15:56:00 Los Maguire MD DIFFERENTIAL CARBON DIOXIDE LEVEL 2021-10-24 15:56:00 MaguireLos MDon CHLORIDE LEVEL 2021-10-24 15:56:00 MaguireLos MD SODIUM LEVEL 2021-10-24 15:56:00 MaguireLos MD POTASSIUM LEVEL 2021-10-24 15:56:00 Los Maguire MD SERUM CREATININE 2021-10-24 15:56:00 MaguireLos lee MD BLOOD UREA NITROGEN 2021-10-24 15:56:00 MaguireLos MD son PROTHROMBIN TIME 2021-10-24 15:56:00 MaguireLos MD GLUCOSE, RANDOM 2021-10-24 15:56:00 MaguireLos MD TYPE AND SCREEN 2021-10-24 15:56:00 MaguireLos MD Results CBC 2021-10-24 15:56:00 MaguireLos MD MANUAL DIFFERENTIAL 2021-10-24 15:56:00 MaguireLos MD SERUM CREATININE 2021-10-24 15:56:00 MaguireLos MD .GLOMERULAR FILTRATION RATE 2021-10-24 15:56:00 MaguireLos MD ABORH 2021-10-24 15:56:00 Los Maguire MD ANTIBODY SCREEN 2021-10-24 15:56:00 Los Maguire MD ANION GAP 2021-10-24 15:56:00 Los Maguire MD TMP INTERPRETATION ANTIBODY 2021-10-24 15:56:00 Los Maguire MD SCREEN NEGATIVE CLOT EXPIRATION DATE 2021-10-24 15:56:00 MaguireLos MD rson COVID-19 (SARS-COV-2) 2021-10-24 15:53:00 Fermin Hoffman MD PCR-ASYMPTOMATIC MC AP IHC MSI (MLH1, MSH2, 2021-10-16 22:50:59 Dana Leiva MSH6, PMS2) MATERIAL REQUEST AP IHC HER2/KIMMIE MATERIAL 2021-10-16 22:50:59 Dana Leiva MD REQUEST MCKINLEY VUONG MSI BY PCR MATERIAL 2021-10-16 22:50:59 Dana Leiva MD REQUEST CT CHEST ABDOMEN PELVIS W 2021-10-13 14:37:33 Christian Driver MD CONTRAST POC CREATININE 2021-10-13 13:55:00 Christian Driver MD OSI BONE DENSITY STUDY 2021-10-07 22:29:00 Mtaeo Chavez MDson Malena OSI MAMMO BILATERAL 2021-10-07 22:29:00 Mateo Chavez MD Lester son Malena PATHOLOGY BIOPSY 2021-09-30 19:11:00 Christian Driver MD INTERPRETATION CANCER ANTIGEN 125 2021-09-30 17:35:00 Christian Driver MD on CANCER ANTIGEN 125 2021-03-23 15:41:42 Christian Driver MD on OSI CHEST 2020-12-23 21:29:00 Mateo Chavez MD Plan of Care Planned Activity Planned Date Details Comments Source Future Scheduled Test 2021-06-11 00:00:00 COVID-19 Vaccination (Stephani Donaldson - Inadvertent risk 4-dose series) [code = COVID-19 Vaccination (3 - Inadvertent risk 4-dose series)] Encounters Start End Encounter Admission Attending Care Care Encounter Source Date/Time Date/Time Type Type Clinicians Facility Department ID 2021-11-07 Outpatient SYSTEM, DILLON CARRANZA [id number] 11:25:34 PROVIDER Mitchell meza 2021-11-04 Inpatient DILLON LEIVA 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 2021-11-28 2021-11-28 Outpatient KYLER CORONEL MDA MDA [id number] 07:30:00 23:59:00 ORALIA meza 2021-11-28 2021-11-28 Outpatient KYLER ALTAMIRANO MDA MDA [id number] 07:11:29 07:29:00 STAR meza 2021-11-21 2021-11-21 Outpatient KYLER CORONEL MDA MDA [id number] 07:00:00 23:59:00 ORALIA meza 2021-11-18 2021-11-18 Outpatient KYLER LEIVA MDA MDA [id number] MD 11:00:00 23:59:00 DANA meza 2021-11-18 2021-11-18 Outpatient KYLER LEIVA, MDA MDA [id number] MD 12:27:48 15:24:25 DANA meza 2021-11-18 2021-11-18 Outpatient NEISHA, MDA MDA [id number] MD 15:22:16 15:22:16 CHRISTIAN Medrano o susana 2021-11-18 2021-11-18 Outpatient KYLER LEIVA, MDA MDA [id number] MD 12:28:16 12:28:16 DANA meza 2021-11-18 2021-11-18 Outpatient KYLER LEIVA, MDA MDA [id number] MD 11:58:51 12:12:03 DANA meza 2021-11-16 2021-11-16 Outpatient SUNSHINE, MDA MDA [id number] MD 09:38:14 23:59:00 LOS meza 2021-11-16 2021-11-16 Outpatient SAAD, MDA MDA [id number] MD 09:37:56 10:51:59 ORALIA Medrano o susana 2021-11-04 2021-11-04 Outpatient MARTHA, MDA MDA [id number] MD 15:20:54 15:20:54 DANA meza 2021-11-04 2021-11-04 Outpatient NEISHA, MDA MDA [id number] MD 12:28:30 12:28:30 CHRISTIAN meza 2021-11-04 2021-11-04 Outpatient NEISHA, MDA MDA [id number] MD 10:28:13 10:28:13 CHRISTIAN Medrano o susana 2021-11-03 2021-11-03 Outpatient MARTHA, MDA MDA [id number] MD 16:09:24 16:11:25 DANA meza 2021-10-28 2021-10-28 Outpatient MARTHA, MDA MDA [id number] MD 16:20:12 16:20:12 DANA meza 2021-10-28 2021-10-28 Outpatient MARTHA, MDA MDA [id number] MD 16:20:11 16:20:11 DANA meza 2021-10-28 2021-10-28 Outpatient [facility], MDA MDA [id number] MD 16:20:10 16:20:10 DANA meza 2021-10-28 2021-10-28 Outpatient [facility], MDA MDA [id number] MD 16:20:09 16:20:09 DANA emza 2021-10-28 2021-10-28 Outpatient [facility], MDA MDA [id number] MD 16:20:08 16:20:08 DANA meza 2021-10-28 2021-10-28 Outpatient [facility], MDA MDA [id number] MD 16:20:07 16:20:07 DANA meza 2021-10-28 2021-10-28 Outpatient [facility], MDA MDA [id number] MD 16:20:05 16:20:05 DANA meza 2021-10-26 2021-10-26 Outpatient [facility], MDA MDA [id number] MD 19:02:00 23:59:00 DANA meza 2021-10-25 2021-10-25 Outpatient [facility], MDA MDA [id number] MD 09:26:28 23:59:00 DANA meza 2021-10-24 2021-10-24 Outpatient [facility], MDA MDA [id number] MD 10:13:24 23:59:00 DANA meza 2021-10-24 2021-10-24 Outpatient [facility], MDA MDA [id number] MD 09:55:40 10:10:08 LOS meza 2021-10-24 2021-10-24 Outpatient [facility], MDA MDA [id number] MD 09:43:01 09:54:27 DANA meza 2021-10-14 2021-10-14 Outpatient [facility], MDA MDA [id number] 14:03:17 14:03:17 DANA meza 2021-10-13 2021-10-13 Outpatient [facility], MDA MDA [id number] MD 07:10:42 07:10:42 CHRISTIAN meza 2021-09-30 2021-09-30 Outpatient KYLER DRIVER MDA [facility] [id number] 11:50:15 13:51:12 CHRISTIAN meza 2021-09-30 2021-09-30 Outpatient KYLER DRIVER MDA MDA [id number] 11:34:41 11:41:58 CHRISTIAN meza 2021-03-23 2021-03-23 Outpatient KYLER LEIVA MDA [facility] [id number] 11:10:26 11:10:26 DANA meza 2021-03-23 2021-03-23 Outpatient KYLER DRIVER MDA [facility] [id number] 10:25:02 10:41:31 CHRISTIAN meza Results Test Description Test Time Test Comments Results Result Comments Source POC Oximetry Arterial 2021-11-28 20:46:40 Test Item Value Reference Range Interpretation Comme nts POC O2 Saturation, Arterial 100.0 % 95.0-99.0 H (test code = 35643) POC Oxyhemoglobin, Arterial 98.8 % 94.0-98.0 H (test code = 93374) POC Hemoglobin, total (test 10.5 g/dL 12.0-16.0 L code = 03547) POC Carboxyhemoglobin (test <0.2 0.0-1.9 code = 68761) POC Methemoglobin (test code 1.8 % 0.0-1.5 H Method description: The = 67356) ABL80 FLEX CO-O X OSM analyzer is a p ortable, automated maria eugenia zer that measures oxygen saturation (sO2), concentr ation of total hemoglobi n (ctHb), fraction of oxy genated hemoglobin in t otal hemoglobin (FO2 Hb), fraction of methemoglobi n in total hemoglobin (FMe tHb), and fraction of carboxyhemoglob in in total hemoglobin (JUDE Hb) co-oximetry par ameters in whole blood. Th e analyzer uses spectropho tometry to perform quantit ative measurement of the parameters list ed from a 65l sample. POC OX Draw Site (test code = [place] 97687) Performing Lab (test code = [place] 8017860) Virginie Medrano on Clinical Lab, [address], [place] [address]; Lab Dire ctor: Arlene gates MD Lab Interpretation (test code Abnormal = 57175-7) MD DonaldsonTMP Interpretation Antibody Screen [id number] 17:46:53 Test Item Value Reference Range Interpretation Comments TMP Auto Neg At the present ABSC Interp time, patient (test code = plasma shows no ____JESSI Chacon ORREA 7535) evidence of RBC MD PATY, P hD - alloantibodies. 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 (test code = 882-1) O POS MD DonaldsonClot Expiration [id number] 16:52:26 Test Item Value Reference Range Interpretation Comments T & S Expiration (test code = 12/01/2021 5318) MD DonaldsonAntibody [id number] 16:51:56 Test Item Value Reference Range Interpretation Comments ABSC. (test code = 890-4) Negative ABSC MD DonaldsonPOC Oximetry [id number] 15:45:17 Test Item Value Reference Interpretation Comments Range POC O2 65.0 % Saturation,Venous (test code = 25005) POC Oxyhemoglobin, 63.5 % Venous (test code = 67999) POC Hemoglobin, total 10.6 g/dL 12.0-16.0 L (test code = 51361) POC Carboxyhemoglobin 0.5 % 0.0-1.9 (test code = 54526) POC Methemoglobin 1.9 % 0.0-1.5 H Method ronak cription: (test code = 72882) The ABL8 0 FLEX CO-OX OSM analyzer is a portable, autom ated analyzer that measures oxygen saturation (sO2 ), concentration o f total hemoglobi n (ctHb), fractio n of oxygenated hemo globin in total hemogl obin (FO2Hb), fracti on of methemoglobin i n total hemoglobi n (FMetHb), and fraction of carboxyhemoglob in in total hemoglobi n (FCOHb) co-oxim etry parameters in w hole blood. The anal yzer uses spectrophotomet ry to perform quantit ative measurement of the parameters list ed from a 65l sa mple. POC OX Draw Site (test R atrium code = 05344) Performing Lab (test [facility] code = 19029) [facility] MD Donaldson Cli nical Lab, [address], [place] [address]; Foot Tender: Tanya Navarro MD Lab Interpretation Abnormal (test code = 52445-8) [facility] Glucose [id number] 14:58:52 Test Item Value Reference Interpretation Comments Range POC Glucose (test 102 mg/dL 70-99 H RN Notifie dCapillary code = 75177-2) blood sample s, e.g. obtained by fingerstick, ma y have inaccurate resu lts in patients with decreased perip heral blood flow. Met hod description: Al l results are una sured using Electroch emistry test methodolog y. The glucose in the sample mixes with the reagents on the test strip. The reac tion produces an jennie ctric current. The am ount of current produce d is proportional to the glucose concent ration in the blood. PO Sample Type (test Capillary code = 9554) Performing Lab (test [facility] code = 75844) [facility] MD Jazmin ackerman Clinical Lab, [address], [facility] [place] [address]; Foot Tender: Tanya Navarro MD Lab Interpretation Abnormal (test code = 38397-3) MD DonaldsonCOVIAdeline-19 (SARS-CoV-2) PCR-Asymptomatic [id number] 04:33:25 Test Item Value Reference Range Interpretation Comments COVID19 (SARS Not Detected Not Detected CoV-2) Result (test code = ____This test i s a 01875-8) qualitative reverse-transcr iptase polymerase sukhdeep n reaction (RT-PC R) developed for t he Baldev DERECK 680 0 system and inte nded for qualitative detection of SA RS CoV-2 RNA in nasopharyngeal and oropharyngeal s wab specimens colle cted from any indivi duals, including those suspected of CO VID-19 by their health care provider, and t hose without symptom s or other reasons t o suspect COVID-1 9. A fact sheet for patients provid ed by the manufacture r ([employer]) c an be reviewed at:https://www. fda.go v/media/365968/ downlo ad. A fact shee t for Health Care pro viders is provided by the dbas ([employer]) and can be reviewed at: https://www.fda .gov/m edia/023370/alba nload Results must be interpreted wit hin the context of all relevant clinic al and laboratory find ings and should not form the sole basis for a diagnosis or treatment decis ion. Positive result s do not rule out bacterial infec tion or co-infection with other viruses. Negative result s do not rule out SARS-CoV-2 and must be combined wit h clinical observations, p atient history, and/or epidemiological information. "Presumptive Positive" resul ts are due to partial amplification o f SARS-CoV-2 targ ets and indicates l ow amounts of viru s present in the specimen at or near the limit of detection. Regardless, individuals wit h "Presumptive Positive" resul ts should be manag ed per institutional guidelines as individuals pos itive for SARS-CoV-2 virus, including use o f appropriate inf ection control protoco ls. Internal contro ls are included to ass ess for possible amplification inhibitors. If inhibition is detected, testi ng is repeated and if inhibition is confirmed the specimen is res ulted as "Invalid". W hen an "Invalid" resul t occurs, it is recommended to wait 3 days before submitting a ne w specimen for te sting if clinically indicated. Thi s assay has been approved by the FDA for use only un jeanette Emergency Use Authorization ( EUA) in laboratories that have been CLIA-certified to perform moderate-comple xity and high-comple xity tests. The performance characteristics of this assay were verified by the Microbiology Laboratory at [facility], CLIA Accreditation # : [id number] and CAP Accreditation # : [id number]. 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 The reference range was not used to interpr et this result as maury l/abnormal. MD DonaldsonFrpamela [id number] 20:51:58 Test Item Value Reference Range Interpretation Comments T4 Free (test code = 3024-7) 1.57 ng/dL 0.93-1.70 MD [facility] Yfpt3431-39-15 20:06:39 Test Item Value Reference Range Interpretation Comments Ordered (test code = 6568) Test Added Test Needed (test code = 7604) TSH, Free T4 MD DonaldsonUrinalysis with [id number] 18:41:22 Test Item Value Reference Interpretation Comments Range UA WBC (test code = 3 See_Comment H [Automa elena 75941-6) message] The system which generated this result transmitted reference range : 0 - 2 /HPF. The reference range was not used to interpret this result as normal/abnormal . UA RBC (test code = <1 See_Comment [Automa elena 37161-3) message] The system which generated this result transmitted reference range : 0 - 2 /HPF. The reference range was not used to interpret this result as normal/abnormal . UA Mucous (test code NOT SEEN Not Seen-Trace = 54020-7) /HPF UA Bacteria (test NOT SEEN NOT SEEN /HPF code = 83914-9) UA Squam Epi (test OCC None-Occasiona code = 17970-7) l /HPF UA Trans Epi (test OCC NOT SEEN /HPF A code = 02787-7) CHRISTOPHER (test code = Some reporting CHRISTOPHER) parameters within the Urinalysis test have changed due to the implementation of new instrumentation in the [facility], allowing greater sensitivity of measurement. Urinalysis results reported by the [facility] using existing instrumentation, as well as Urinalysis testing performed manually or by backup methodology at the [facility] will remain relatively unchanged. New reporting parameters and units will now be reported for all campuses. Lab Interpretation Abnormal (test code = 70180-8) MD Donal[id number] 18:18:01 Test Item Value Reference Range Interpretation Comments aPTT (test 35.9 See_Comment [Automated mes alexis] code = [place] 47009-3) generated this result transmitted ref erence range: 24.7 - 3 6.8 second(s). The reference range was not used to int erpret this result as normal/abnormal . CHRISTOPHER (test code This lab cannot be = CHRISTOPHER) scheduled at the following locations due to collection/proccess ing restrictions: [facility] and [facility]. MD DonaldsonProthrombin Time with [id number] 18:18:00 Test Item Value Reference Range Interpretation Comments PT (test code = 14.2 See_Comment H [Automated 5902-2) message] The system which generated this result transmitted reference range : 11.5 - 13.9 second(s). The reference range was not used to interpret this result as normal/abnormal . INR (test code = 1.17 0.90-1.10 H 6301-6) CHRISTOPHER (test code = CHRISTOPHER) This lab cannot be scheduled at the following locations due to collection/procc essing restrictions: [facility] and [facility]. Lab Interpretation Abnormal (test code = 89767-0) MD DonaldsonElectrolyte [id number] 18:17:45 Test Item Value Reference Range Interpretation Comments Sodium Lvl (test code = 140 See_Comment [Au tomated message] The 2951-2) system which ge nerated this result tra nsmitted reference range : 136 - 145 mEq/L. The reference range was not u sed to interpret this result as normal/abnormal . Potassium Lvl (test 3.7 See_Comment [Automa elena message] The code = 2823-3) system which generated this result tra nsmitted reference range : 3.5 - 5.1 mEq/L. The reference range was not u sed to interpret this result as normal/abnormal . Chloride (test code = 104 See_Comment [Auto mated message] The ) system which ge nerated this result tra nsmitted reference range : 98 - 107 mEq/L. The refe rence range was not u sed to interpret this result as normal/abnormal . CO2 (test code = 26 See_Comment [Automated message] The 2028-05) system which ge nerated this result tra nsmitted reference range : 22 - 29 mEq/L. The refe rence range was not u sed to interpret this result as normal/abnormal . Anion Gap (test code = 10 See_Comment [Aut omated message] The ) system which ge nerated this result tra nsmitted reference range : 4 - 14 mEq/L. The refe rence range was not u sed to interpret this result as normal/abnormal . MD DonaldsonAspartate Clhvsmzbtrvaygke8819-76-80 18:17:44 Test Item Value Reference Range Interpretation Comments AST (test code = 32 U/L See_Comment [Automated message] The 1920-04) system which ge nerated this result transmit elena reference range : <=32. The reference range was not used to interpr et this result as maury l/abnormal. MD DonaldsonFractionated Rtncztnai1571-00-83 18:17:43 Test Item Value Reference Range Interpretation Comments Bili Total (test 1.0 mg/dL See_Comment Indocyanine Green (ICG) code = 1974-10) may cause fal sely elevated biliru bin results. Total and direct bilirubin must not be measured from s amples containing indo cyanine green. False el evation of total bilirubin can be seen in patient s with IgG concentrations above 28 g/L. [Automate d message] The system [employer] generated this result transmitted ref erence range: <=1.2. T he reference range was not used to interpr et this result as normal/abnormal . Bili Direct (test 0.3 mg/dL See_Comment Indocyanin e Green (ICG) code = 1968-03) may cause fal sely elevated biliru bin results. Total and direct bilirubin must not be measured from s amples containing indo cyanine green. [Automat ed message] The sy stem which generated this result transmitted ref erence range: <=0.3. T he reference range was not used to interpr et this result as normal/abnormal . Bili Indirect (test 0.7 mg/dL 0.0-0.9 code = 1971-1) MD DonaldsonTotal [id number] 18:17:42 Test Item Value Reference Range Interpretation Comments Total Protein (test code = 2885-2) 7.6 g/dL 6.4-8.3 MD DonaldsonCalcium [id number] 18:17:41 Test Item Value Reference Range Interpretation Comments Calcium Lvl (test code = 24455-9) 10.0 mg/dL 8.4-10.2 MD D[id number] 18:17:40 Test Item Value Reference Range Interpretation Comments ALT (test code = 33 U/L See_Comment [Automated message] The 1742-02) system which ge nerated this result transmit elena reference range : <=33. The reference range was not used to interpr et this result as maruy l/abnormal. MD DonaldsonIwjeokblORQ8590-60-31 18:17:38 Test Item Value Reference Range Interpretation Comments BUN (test code = 3094-0) 19 mg/dL 6-23 MD DonaldsonGlomerular Filtration Pdqk3283-34-25 18:17:37 Test Item Value Reference Range Interpretation Comments eGFR-AA (test code = 58 See_Comment L Normal eGFR: >= 60 05328-2) mL/min/1.73 m2N ote: The eGFR is clementine culated using the CKD-E PI equation. The e GFR declines with a ge. eGFR <60 mL/min /1.73 m2 is considere d as "decreased". Th is equation should only be used for pat ients 18 and older. According to th e National Kidney Foundation's Ki dney Disease Outcome Quality Initiat ines (KDOQI) classif ication and 2012 Kidney Disease Improvi ng Global Outcomes (KDIGO) Clinica l Practice Guidel ine, the stage of CK D should be categ orized based on estima elena GFR. Stage Desc ription GFR mL/mi n/1.73 m21 Normal or h igh GFR >=902 Mildly decreased GFR 60-893a M ildly to moderately decreased GFR 45-593b Moderat vy to severely decrea sed GFR 30-444 Marleny rely decreased GFR 15-295 Kidney f ailure <15 [Auto mated message] The sy stem which generated this result transmit elena reference range : >=60 mL/min/1.73 sq. m. The reference range was not used to int erpret this result as normal/abnormal . eGFR-EVELINA (test code = 50 See_Comment L Normal eGFR: >= 60 58057-1) mL/min/1.73 m2N ote: The eGFR is clementine culated using the CKD-E PI equation. The e GFR declines with a ge. eGFR <60 mL/min /1.73 m2 is considere d as "decreased". Th is equation should only be used for pat ients 18 and older. According to th e National Kidney Foundation's Ki dney Disease Outcome Quality Initiat ines (KDOQI) classif ication and 2011 Kidney Disease Improvi ng Global Outcomes (KDIGO) Clinica l Practice Guidel ine, the stage of CK D should be categ orized based on estima elena GFR. Stage Desc ription GFR mL/mi n/1.73 m21 Normal or h igh GFR >=902 Mildly decreased GFR 60-893a M ildly to moderately decreased GFR 45-593b Moderat vy to severely decrea sed GFR 30-444 Marleny rely decreased GFR 15-295 Kidney f ailure <15 [Auto mated message] The sy stem which generated this result transmit elena reference range : >=60 mL/min/1.73 sq. m. The reference range was not used to int erpret this result as normal/abnormal . Lab Interpretation Abnormal (test code = 84928-7) MD DonaldsonGlucose [id number] 18:17:36 Test Item Value Reference Range Interpretation Comments Glucose Level (test 97 mg/dL 70-99 Effectiv e 04/19/16, the code = 2345-7) glucose refer ence intervals have been updated based o n [place] [employer] herminio delines (Standards of M edical Care in Diabete s 2016. Diabetes Care 2 016; 39: S13-S22).Fastin g blood glucose:Normal: 70-99 mg/dLImpaired f asting glucose (increa sed risk for diabetes or pre-diabetes): 100-125 mg/dLDiabetes m ellitus: >/=126 mg/dL Ra ndom blood glucose:N ormal: 70-199 mg/dLNot e: Random glucose >100 mg /dL is associated with increased risk for diabetes MD DonaldsonAlkaline Jjljwzjgqtf8574-25-13 18:17:35 Test Item Value Reference Range Interpretation Comments Alk Phos (test code = 6768-6) 84 U/L 35-104 MD DonaldsonAlbumin [id number] 18:17:34 Test Item Value Reference Range Interpretation Comments Albumin Lvl (test code 4.3 See_Comment [Aut omated message] The = 4730) system which ge nerated this result tra nsmitted reference range : 3.5 - 5.2 gm/dL. The refe rence range was not used to interpret this result as normal/abnormal . MD DonaldsonCA [id number] 18:17:32 Test Item Value Reference Range Interpretation Comments CA 125 (test 11.1 U/mL See_Comment Results greater than 11,500.0 code = 5169) U/mL may not be reliable due to matrix effect w ith extended dilution as it exceeds the dbas's recommended limit. Caution should be exercised when interpreting such values and done in conjunction with clinical c ontext.This test is measured by electrochemilum inescence immunoassay on Baldev Dereck immunoassay ron lyzers. Results obtained in dif ferent methods are not interchangeable .Reference intervals are n ot available for male patients. Results should be interpreted in conjunction with clinical contex t. [Automated message] The sy stem which generated this result transmitted ref erence range: <=38.0. The ref erence range was not used to int erpret this result as maury l/abnormal. MD Donaldson.Serum Amdpozlpgw7535-42-88 18:17:31 Test Item Value Reference Range Interpretation Comments Creatinine (test code = 2160-0) 1.11 mg/dL 0.51-0.95 H Lab Interpretation (test code = Abnormal 32169-8) MD DonaldsonHemoglobin [id number] 18:14:44 Test Item Value Reference Range Interpretation Comments A1C (test code = 5.6 % 4.3-5.6 HbA1c value s >=6.5% are 4548-4) diagnostic of d iabetes mellitus.Diagno sis should be confirmed by repeat testing.Therape utic Action suggested: >8.0 % HbA1c; Goal oftherapy: <7.0% HbA1c MD DonaldsonUrinalysis w/Microscopic if [id number] 18:07:36 Test Item Value Reference Range Interpretation Comments UA Color (test code = 60061-0) Yellow Straw-Yellow UA Appear (test code = 5767-9) Clear Clear UA Glucose (test code = 5792-7) NEG NEG mg/dL UA Bili (test code = 5770-3) NEG NEG UA Ketones (test code = 5797-6) NEG NEG mg/dL UA Spec Grav (test code = 5810-7) 1.025 1.003-1.035 UA Blood (test code = 5794-3) Small NEG A UA pH (test code = 5803-2) 5.0 5.0-9.0 UA Protein (test code = 5804-0) 30 mg/dL NEG A UA Urobilinogen (test code = 5818-0) NEG NEG UA Nitrite (test code = 5802-4) NEG NEG UA Leuk Est (test code = 5799-2) Trace NEG A Lab Interpretation (test code = Abnormal 20566-2) MD DonaldsonDtqhltmaEiyjfarglxef4271-38-61 17:43:49 Test Item Value Reference Range Interpretation Comments Neutrophil % (test code 60.6 % 42.0-66.0 = 770-8) Lymphocyte % (test code 30.4 % 24.0-44.0 = 736-9) Monocyte % (test code = 6.2 % 2.0-7.0 5905-5) Eosinophil % (test code 2.4 % 1.0-4.0 = 713-8) Basophil % (test code = 0.2 % 0.0-1.0 88210-7) IGRE % (test code = 0.2 % 0.0-0.4 IGRE % c ount includes 20705-9) Metamyelocytes, Myelocytes, and Promyelocytes. Neutrophil Abs (test 3.23 K/uL 1.70-7.30 code = 751-8) Lymphocyte Abs (test 1.62 K/uL 1.00-4.80 code = 731-0) Monocyte Abs (test code 0.33 K/uL 0.08-0.70 = 742-7) Eosinophil Abs (test 0.13 K/uL 0.04-0.40 code = 711-2) Basophil Abs (test code 0.01 K/uL 0.00-0.10 = 704-7) IG Abs (test code = 0.01 K/uL 0.00-0.04 97862-4) MD Donaldson.[id number] 17:43:43 Test Item Value Reference Range Interpretation Comments WBC (test code = 5.3 K/uL 4.0-11.0 6690-2) RBC (test code = 789-8) 4.30 See_Comment [Au tomated message] The system [employer] generated this result transmitted ref erence range: 4.00 - 5 .50 M/uL. The refer ence range was not u sed to interpret this result as normal/abnor mal. Hgb (test code = 718-7) 11.9 See_Comment L [Au tomated message] The system [employer] generated this result transmitted ref erence range: 12.0 - 1 6.0 gm/dL. The refe rence range was not u sed to interpret this result as normal/abnor mal. Hct (test code = 38.4 % 37.0-47.0 4544-3) MCV (test code = 787-2) 89 fL 82-98 MCH (test code = 785-6) 27.7 pg 27.0-31.0 MCHC (test code = 31.0 See_Comment [Automate d message] 786-4) The system [employer] generated this result transmitted ref erence range: 31.0 - 3 6.0 gm/dL. The refe rence range was not u sed to interpret this result as normal/abnor mal. RDW-SD (test code = 49.9 fL 35.1-46.3 H 30009-6) RDW-CV (test code = 15.2 % 12.0-15.5 788-0) Platelet count (test 214 K/uL 140-440 code = 777-3) MPV (test code = 9.7 fL 4.0-10.4 35979-9) INRBC (test code = 0.0 % See_Comment The INRBC (instrument 08504-8) NRBC) value ref lects the enumeration of nucleated red b lood cells contained in a 200uL sampleof whole blood analyzed by the instrument. Thi s value maydiffer from the NRBC value repo rted in a manual differential,wh ich is based on a 100 cell differential. [Automated mess age] The system [employer] generated this result transmitted ref erence range: <=0.0. T he reference range was not used to int erpret this result as normal/abnormal . Lab Interpretation Abnormal (test code = 88816-2) MD Smith Breast Complete - Uootaffcu3346-45-30 19:45:45 Test Item Value Reference Range Interpretation Comments IMP (test code = No mammographic evidence IMP) of malignancy. A benign medial right breast mass isfavored to be the abnormality seen on the recent screening mammogram (10/07/2021from an outside facility), but the corresponding reports are currentlyunavailable to know for sure. Acquisition of those reports is recommended.Continued yearly screening breast imaging should be continued as clinicallydesired. BI-RADS Category 0:Incomplete: Needs Additional Imaging Evaluation PXN (test code = Harvinder Mark MD - PXN) 11/04/2021 EXAMINATIONS:BILA TERAL WHOLE-BREAST ULTRASOUND, COMPLETE.ULTRASOUND CHEST. CLINICAL INDICATION:Abnormal screening mammogram. TECHNIQUE:Real-time sonographic imaging of both breasts (including all 4 quadrants andretroareolar region) was performed. Real-time sonographic imaging of bilateralregional leo basins including the axillary (level I, II, III) and internalmammary regions was performed. COMPARISON:Prior breast imaging dating back to 2016 (reports unavailable for the 10/07/2021mammogram). BILATERAL BREAST ULTRASOUND:A subcentimeter circumscribed mass in the right breast at 3:00, 10 cmfn is wellseen on, and stable between, the 09/2021 nad 05/2017 chest CTs. It will beclassified as benign. No suspicious findings are seen. BILATERAL LEO BASIN ULTRASOUND:No adenopathy. I notified the patient of the results and their significance at the completionof today's imaging. IMPRESSION:No mammographic evidence of malignancy. A benign medial right breast mass isfavored to be the abnormality seen on the recent screening mammogram (10/07/2021from an outside facility), but the corresponding reports are currentlyunavailable to know for sure. Acquisition of those reports is recommended.Continued yearly screening breast imaging should be continued as clinicallydesired. BI-RADS Category 0:Incomplete: Needs Additional Imaging Evaluation Lab Interpretation Abnormal (test code = 23248-1) MD Donaldson Chest for Breast Ultrasound (Add-on Only)2021-11-04 19:45:45 Test Item Value Reference Range Interpretation Comments IMP (test code = No mammographic evidence IMP) of malignancy. A benign medial right breast mass isfavored to be the abnormality seen on the recent screening mammogram (10/07/2021from an outside facility), but the corresponding reports are currentlyunavailable to know for sure. Acquisition of those reports is recommended.Continued yearly screening breast imaging should be continued as clinicallydesired. BI-RADS Category 0:Incomplete: Needs Additional Imaging Evaluation PXN (test code = Harvinder Mark MD - PXN) 11/04/2021 EXAMINATIONS:BILA TERAL WHOLE-BREAST ULTRASOUND, COMPLETE.ULTRASOUND CHEST. CLINICAL INDICATION:Abnormal screening mammogram. TECHNIQUE:Real-time sonographic imaging of both breasts (including all 4 quadrants andretroareolar region) was performed. Real-time sonographic imaging of bilateralregional leo basins including the axillary (level I, II, III) and internalmammary regions was performed. COMPARISON:Prior breast imaging dating back to 2017 (reports unavailable for the 10/07/2021mammogram). BILATERAL BREAST ULTRASOUND:A subcentimeter circumscribed mass in the right breast at 3:00, 10 cmfn is wellseen on, and stable between, the 09/2021 nad 05/[address] chest [address]s. It will beclassified as benign. No suspicious findings are seen. BILATERAL LEO BASIN ULTRASOUND:No adenopathy. I notified the patient of the results and their significance at the completionof today's imaging. IMPRESSION:No mammographic evidence of malignancy. A benign medial right breast mass isfavored to be the abnormality seen on the recent screening mammogram (10/07/2021from an outside facility), but the corresponding reports are currentlyunavailable to know for sure. Acquisition of those reports is recommended.Continued yearly screening breast imaging should be continued as clinicallydesired. BI-RADS Category 0:Incomplete: Needs Additional Imaging Evaluation Lab Interpretation Abnormal (test code = 32281-9) [facility] Wfdimigxcvpnmi1714-22-17 00:43:00 Test Item Value Reference Range Interpretation Comments Gross Description (test c3uluFHsMJXttMTBERqo code = 6144554181) WIfjgeNcPXQihLUpE7Gt ylzgVDvgIC2ePQ7skEaa fRMdsOFzGP5KQUOjOyEc XHBhcGVydzEyMjQwXHBh vEFryGL9DNKhPL9nkbkn ZFuwLGhrAPItkkD4KKLa aULiX1LiCFXlQB9devns YXV2SJciuM7griOWCkdv Lz2gqPMuuJndOiVjSfYs YXJzZXQwXGZuaWwgQXJp HHp6gD9LTrdbU67to4O9 Jeq5TEEuHDVcW4JmCL0l FWWkrBOkH51WDvnjDAA6 GEOUEcacHTXnZX3Vd9zf HQCwbXLcHXF0GPhojYVa ZXReIIHdSYt9UYXgQIne kRVvDD2afAcqVncdgXnl g7DgpNRtCXciDTGwMGDe XBeoBXDaXY9AHsBjZGDu HSMjSVYhBWl7QNd9OR5F LlXpQETeYXAmYar7NLRs GUg1SCqwUQ1NMJr5PjB3 PJL9FHK1ZJM3GPDxEFTd MiBcXGYgQXJpYWwgXFxm cyAxMCBcXGZiIFxcZmwg MXrzP85xdJaklM9oAkec gyNgVOP5FIXybsEJGzdw bGFpblxlcGljTmVzdERv YzEgDQpcbHRycGFyXGxp bjBccmluMCANClxsdHJj aFxjZjFcZnMyMCBTcGVj hQ0zzcVlpQRpV6QyHIA7 XHBhciANCjMgRGlmZiBR dWlrOyAzIFBhcCBTdGFp lwLFrNxcNKCavZKfKY9H HKUwrEfzNOnoro39TFI9 q5kxvTLbGLfdTawqzJWa qnP1EVgHCZTIGPzRNkYj UR7xIRgNF1OHJRqQCrcw ICW1CFqxaYE1w9pybJVj o0p1JSzwXQA3iAJnhBrl sYv6DGFlp4NqgHOfrDMq oEJbcDL1HAZdXOtvj3hr NRPfKKbva3RqOKdYJWRT BH0ZNS6kyVC1I4sRIBOJ R7vNzGV9n6bakNDhe6m0 YXpbTUK8wQFqm04edEpu QcsujMO5LKrjSfabxY6a dCBIWVBFUkxJTksgbmFt CQ0BOKkDCI4GaAE7e6au pACij1i9PPhuZNW3aAtp eYWpetfbzGLfpSpzjs76 GGZ9MZKuHMacvgHmDXZw oWCsJTgiSvixeTP9GNng PbwgcZ5izNRNQVKMZzvI LzzuoiNfOL5CRWKGCK8S sOX8FxTjrRJ5UP76USYl ZVQahPDcBUozT653ZWUi XGnxFVu9ikDbLFUfDQwg iiXnXYVhsuXBLG2KWZHu ciANClxjZjAgMSBDZWxs FTPwu5IwNQGjtyUDKhOi dGUvVGltZSBQbGFjZWQg oC4dNq9lyQCijA95LMjp dx41YRF4u7jvrMYfJVtc WopadBFgfiN7ORhJFFRD UMcSHnHnRB0eCBfWTkgN FUaWIhc3ZDJ0ZbqjhECT NOMUPNOWTSoxwZx3BAc4 fXtcZmxkcnNsdCBcJzFD mN9jEm7eCC2lZdcuMsja qTA7TKvpPdiowD4npLKO CJIACdjRMyeitoQfID0D ZR5OSK9PqUVjQSjnsAL7 XJ5KLNrWQVCWpSV4oCpm gTy3f7hxeEKmi7d2ZFaz ETE8tZdmtZBikyglsPNw aFxmczIwICBccHJvdGVj qAluXvqomOA7YZnoKwol cF6ofMWXLWJHObnLNrbh amIrJT1XLZ5USxGVOU87 ZNE4HIlZS4y4UMw8bMX4 oW36MXWdHOVmdAQcKXmt M565LWbcMKNUFFovLwvh iOU7VUhcRfmvcJ4urBZR YJHTKdhQZdolryHuPM4U QC8PVM9CjDvbtUI7Wq2K iGY8qKfjpVy0j5ndeMHo j4b8WLcgEXQ2dBqaoBRt blxsdHJjaFxjZjFcZnMy RJhsDNAiXNwsaVJkGO5O V2s9LThqKG7qZNJfSMBb slKKAsbgkHQswUN6TCAu i6Bua9MoFQ90JKDxrpLj hSEvhX0yoaNhTFXjsJYh yXH9PUJdaFFsRUObuXAj tRSziOutIvhdpOC9WJxa NbnmtS5biWXDGJXWGctO ErebboQyGB5XWGHZVnOH NW98LmX1WqQ1WTj0wZza BusdyaZldVUaDuHOsN73 ZOhiCcnmvSY1PYkzUhka gO1zpYWOQARQFusFOhha voEvEJ4HDBSLLM3ZhSL5 WvO5iBZ6MV18HLXfOLNp yYFlADieN074VBXuUUdb DJf9agJjNITlQXohmgNa UTJyeJFMkc3vV5SoTGIs SDybvmDYOLMENMeOY0Ga PWVJGBDIDKXrXaEDST5v OjL7QxF9JA16UjomOvP4 PwG1mST2UNUXNHCBOViW I8MoPEGHIETSKAEjKR8X ZLvMMUCVUQCPB79ISTXC XWNEL9TYP8gZTPRdm2Ex z16qcDpQBAAGWJTIL03A MBNTOVFDN9SMXQEDUZLG YXvHDHRCAq2RIPDSLWWL AK1DCRdAGvWlPDctdLHl RGpfMWJ6UJz6PPg9kZIs o7BsbRC8DwD0JtPhoXOV HCFUSAkKBHUYSa7RCHNE MCRFUW6TOwBzT3MQUP5X Zn7XXCKOCKOIPP0GQInP IdBcK6QEKN8UAs2HBUHP JERARO3UTyTfLQLJK7PF MeKPZ5raMSQCOGJDIHJn FnNKGV1wBGASRY3FOSDZ ESDHQ24QDGGAZJBAW0GT VK3QNMXudNXTDIF8QT5u GFh7BMoyVNHdA2IqO8Bl pdRdeLHbXKUutuTur0mf MZD3NNVdaFShoXWpHpDd AifjTJO9AQRyTOtsDB6I VVNqBKK0KFgwqW86tGXr SG6YSYAsXIjkLMQhMSYt myC9MYOacWTeEJR7WH1r oQtfqAHcjcafbsN1FL7V fQ== Immediate Assessment Adequate (test code = 9837) cellularity, favor malignant Major Classification MALIGNANT A (test code = 9839) Diagnosis (test code = p2xmbRWnFIMuvDU8GwYy 34) YNKeo6kxq9HaeVQntAFt MNujrRDakvTron37wPS3 tK62HQ8gMAYpVsA0SQXk tgW9Gkp4XUEdPMZytZHy Y205d1jso8negxDzmBY5 OPUnCAVzH6NbPS0bLZIk qFEiP75kqSUaCQH4AOGc BVRcbEIdOGSiUJK5YTHq eOUxW1kqBUJlEQ5omofr KMcvSMqyKPZjuUY5GCQm lGYvF6LeENLnAAwdVKDz yjt1FzUbAh8yeQCeiXwn DLixB1xxxZ9uFmQ5EFsj R7rnjZ6lTHz0EWmkVZPb yHQ7waG0HXSnnOBsA4Kz qR3lIYSvCV9pdgm4b4vw RQH8GGwtRJGuWwH7onB4 NDBccGFyZFxwbGFpblxm dxFoXVIsGCXRKhYAf5S0 HOFyb7Z3VPdxcWIxvBUg NLw2dBRsZBFwojQlgyGm QZesTRVahQvqKCXsj452 GTAoulz2QKPecVPhIJzw PlTiIZhRR7trJ3WCLSDy Y9XRO7bDW55ZAGTAHaIE N2EBRnHeT0sIHRJMUPAC RI9YU8AfJQcXPL4ZAQDK VtAPQVrIEARTTG2fFCPG FBFVPEUaj7XbWFAlfF0r bnQpXHBhcn0= Comment (test code = b4czoAByLUZlnKS3UzDv 9835) TBVuu9ykb1DzeXKdhDIx IUzgcQXywkOcmg48oSV4 tM35HK1dGOGpUeH3MDBx hjN1Toe3EYFkLGCxnQYk A253r6ici4dwzrZotCF4 kYzaFAZwulccUtK8ZVdg ZHSuzkyyTFy9URozPXMg fMT7BLHtaWEcZ4KyUPUe KE0qswl5WBJ9QFgkLPXf AlX6OWMrsJZmRQIcxXdh ZAwkk714UEQ3OkWhZHIj tnPlqMcdjW3fChYuNOEE vL53ez2nnWFekmZrwMDt Ik8liPTkNF7kLPJwWKPc EOvpSBRqr0QrNRQmO7Ez r02dPOKnq0egsWruwYL2 bVBnrDPjo4PeY8JfgAOn GOYbYPIgq8u9sIFmTRVu mnKGNBbwQXpmM2UvTVUp Jy4cEKeiKLDuKMFiTCRw RzT3m6NlOTXlOITVDiQg NfZmFT0rIPE2gZ0xBJLd eOebjvKirZGwYE4nIApn t3MyAxmmYOnrG4AwTCLx QOklOQjdHBMsgeblq4x6 yAC7kRXvdXJ8dQSpqYvp KUsmz9mnZAzes5Xdzizq n1Rea6Ncx5HhJOXtwrJe il3mIR9gcADiMAKzPBQn JWlnBODas2IyRPTdBSVp bsD3yH2oQYiuqiOrv490 oroqjGMtbjcceV68HFBc azC3lLEcVHAaodEcJThb X33ga2xiSmNonQMhZUMu R80jH2AbkuIdxSJyn7Kf OB7yZCMdVUWcjY9no1vm FGGlVs0cVPElJNEvplRs lDEjPLT8PCqfJGSlAG6d cGFyfQ== Retained/Biomarker i8astOLrRLRcyMA6WdNx Testing (test code = XWVqi6pqd4UhrNOtiULn 9838) GKmttRGkmoKzof06bEW4 eD37ED1sAIWoLmD8TVCl heE1Ntb5MCIwNZPfxZDo C516q3xzn7nzanMwzDX1 hZojODSmrzscDnZ7WOqx BDGxpfpbIHo4WRvkCOMq kUF7GAVmaNJlD7WeISCa SC8onyn6TQJ1HVcgVSLm OtO5HDBnbKXsOYCjwGox NJfbt355KUV9SrBcYZVz ncOpeEowuL5wRxDrYJXB Nmw7CfyeCcCHGCY9YGMa uBYnBR7LJJNCStm3SK6f ZNNcdGAeSE6ZPARQMPB9 B9ZgbBGwRB7YHHMFTTgc J7fnKXXmPGGLWYBLC4k8 MVNccGFyfQ== In[employer] Points d4oxpTWaBYTydWRxBaQs (test code = 9836) LRMrWQPrc5xpVIAxbWJa ZzEwMzNcZnRuYmpcdWMx FUIbHgLug5ywl856rRYv p1knZWWxPhN3qWSvZSXn rZZnV870MNEbAOwgr0jr o2RlMVVmcPGgt5L0LLGK CUwxLCAFAYm8y0ggExEc DiG0uKDyWGmuI6xznoHi fCZhRSDaBLm1nT14WDYx oS6dyVIyOPfgvjBgKxL9 MTjbXEKhElB9HTQpvPYu PXPmA2lzJSIgBVhjHUVm QUkltYDwIAO9xGnrk0I0 bGVzaGVldHtcZjBcZnMy ZsIUs0UiZNe4wBoqK7Gq SWAdBwV1nFMbGVSoKGfu ZWMyCQWkugW3aU37GUua wfB0dDIma0Dik27mw807 hA1gcPWpQVM2XBKuBTIo kOUrPLSaAJV2ZWMonHRc O0ioDTRsHR1dxkouUAwc ZGkxOVGnjVK6KLQwiBJf A2ZcUUPnXSnqBMQvemh0 KpSxLh3tvBUgwLxqFYid j7iuw4gyjRMmRhk0UAJt LfYoTbwhNSuge4Uuk1qz BLJjkm2xMEP7uZLthVms u1C3pNSfVAHddMQuwzCy IMOwcm46xIYsxZXvgTAn rd7kcrSxoGYchWYcYHB6 cHNocnRuXGZldDRcYWVu PQMyV7awBxZnwwOcY7qj V7LcNKTjXZRgNGDqLgGy adVez4Drk5YgaMEppVn5 x6xkZKFnORJssEdcu7dc GHX7NSSqH7D8qNOwy9sr SZegGJApxVB9rxY6DHUj lSYpK6ZlmY9nMHHgKO4z lde4s4ndULZ8DQojGXZz UoP4nwA8NAYatZTfRUYl kCeiIGvlv918UHR5QjAr HVVzx8DsQ0GedOtzN22n sGfyZ52fGZDkpDiqvT4e bFfkmL0nHdKvScRmOMcg bFxwbGFpblxmMVxmczE4 VAgjghvkJTLfQYjtL2du PtKpEPWdtXmpGZrmk4Ov AWSxYSNkJWcfmRHVx94u NTXov0MwLLCeuQ3xzZOu QQipeqWwkKZ1NUmnngIh HeWauzPfACBgjB8kLWWc VI0aKAKdcrJxfh2fsqFi CDFkSWWfA4JnxehjnLuz ezCeMMKevw1ukfZgRHF5 LJOTKM1CBDSgGMKvx11y SFPgzLbrxJ9yuDGrajSo CYPxp5LpwZ7vgRNSULRb D4heMC1aRBoic9JzaGYg fWMboFJ7UZWlu1GvOiAk jqRdlLUgcNGcJ9KxjMzz T1xpXZTzBYMwwiPurZQm m8VzTSTmbVD1gYLwGL4R SuRKk71tMLAtKIRNmsKa XEXpvPmbfYC0ekJ4xH6h LoUBqUvtESLhm6Ylu7Wd X9czWFNoDEQzzYNjcTni iO0gWuWdDtDvLImxNC1r HDLpC8qzlDTeSMJeCNCv T3ecYeEepV1yxVosBCqp ZjJcZnMxOFxsdHJjaFxp DQjft9CyPJ35z1GtrsDJ wPYhqZL8bH7uq8p7ZWdq Ne6iEYBhqpiviVdrsC4y EgCtBfDvEYhqBD2kFPUo F4rwyCVzVWAnHESfC0cm VrQnpI5trBuzSVumDrWz ZnMxOFxpICwgXHBsYWlu XGYxXGZzMThcbGFuZzEw MzNcaGljaFxmMVxkYmNo SVMgIEsrI5raJiDkA5Aw ZXIuEWemdQFlC8ffaFEf DeruYHMVBAN4QNYuRXH6 NHwyGRvbjXA9m00iXCLs oXJeLNx8BFu7OFAlBNpr XGYxXGZzMThcbGFuZzEw MzNcaGljaFxmMVxkYmNo QVPtZAzeZ3bzQuLdC3Zf XGZzMThcaSAuXHBsYWlu XGYyXGZzMjJcbGFuZzEw MzNcaGljaFxmMlxkYmNo SWGvLTsfT8raTrHoVeZx MlxwYXJ9 Lab Interpretation (test Abnormal code = 93349-6) [facility] [id number] 00:21:10 Test Item Value Reference Range Interpretation Comments Submitted Clinical History [id number] (test code = 35238) mbGFuZzEwMzNcZnRuYm pcdWMxIHtccnRmMVxzc 8TeE8SaGkTuIBxienEg XGRlZmxhbmcxMDMzXGZ 0bmJqXHVjMVxkZWZmMH laVj9guNDbdJjkCkPwV KVpv7olgeTDcltsfIt4 t4egUPRfRyD8tNShSSn bI9gkqpQbnXNxTQDzBT h9eY18VSSpxU8pgPWbU YuyfgMaBsM1ZQwqKYFh VyR5GHGaxIJgCRRmA7l yZWQwXGdyZWVuMFxibH SyQDK2gPipe8T5aERya GVldHtcZjBcZnMyMiBO t3MpTGa9oHooF4IrWFF nRbT2bJFfYJGqISikQK IpOKHltaG6kY96BYehm hM4bYPnc8Lxz47tm451 eK3hiWJnREB0YBAyNBS kxQMwEBKzESA0XZWodM FaA0geZRCtEH4dziwhM FncTCmoOZBtgGY8CIAh uWOqI0LaAMPpSZcgSHC uvsp8NwVlHe6afBYzyW auOEumk0apw5acoJZtF mu2PMZuKnHpHifeDQju s2Ngr2tfLDJwsj3rEHH 0kVOenEmss0X3rVXwQF PgkZDpmtVnRWWoQyK1Z VjlUQ7lgd79UZHmIQJ8 lb5qpEMhnAdxncNqcQV oCKpxH2ZiFKXnu139EZ BwD9WbTDIce4Q1chXcE nMwLCWbzGG6woR6LATb EXp0tTJqwmK1tgOrsPC xJ8yfiB1tCZOdSZ6abc tfp5aiQUnsRIbrBTXkl BP4loW7LMIjfEZjW4Um pA9tTGCoPSccHDNqkjn 0MfWuIm5qvRNwyDpqND xzYmtwYWdlXHBnbmNvb nRccGduZGVjXHBsYWlu XHBsYWluXGYwXGZzMjR udVszbWctpE5tRnIfFt ZmRXrmIR4aUCNaA1fxw GNdGWMyBVCdX4ouLbDl qW3zgBnlASyllcWtMV2 mv0KnGORhKIElIDeqD4 2xrpIpy3QiTZ0nu04jg HEoeG3mN9B9AW0vGKvn ZGRkWRW8UBF6JSIbOpH xSF3sRTTrgR5paYkgMB Fnwcu0z23dkG9vI0Y6X J98OXrowWSyozdeNFje czIyXGxhbmcxMDMzXGh oR4zjJvSrZHSfpBxkGL ccq1IuHCKnMNVzUxRpl GFyfX0= Diagnosis (test code = 34) i6yrfRTlHCBnjUQ9EcT fLDAgz5vfu7MnuNRacU FrKCqkvIBbptUbll83x LV5uQ74RG2dVFCaIrX4 BEQjwuX6Jos5NXIhDQO wqWBzQ969m0rgg1fmci SzkDI0AVAfFPMsC5SsW A1hUZZmxMWaK39fcEYs YXG6EGSaHKNhvSHrWNK oCZA5ZXUagXXeD9eqNB LwDQ1kjltrQZdzAWmqT WCdxWZ6HKFimLLuO4Md WPGtXYpzDFTlhms5UeH qMs9anAPjpLbkJIimAP JkXHBsYWluXGZzMjBcY 5GbJZU5BBhbMtUocQPo ighwUUUaZeMnlGanm2V mEE6kIXDvFYXfgZ1eb7 m1GABdqyhsyUhmMCelb L61PxZwC1EtVBMMV0gH SVZFIEZPUiBDQVJDSU5 QOGTiZTZUUyUBR8KZMg QtB6yYEZSOSMVDU7BMJ V8KUOULHYDPDhFtV8DO Z4LUUKDCCvSHXd1SRL4 qFIXSATVOX59DDX8EMG xwYXJccGFyZFxwYXIgQ hRQP6VQHPykUAQ5 Comment (test code = 9835) f3vflRHnFFCkzXH9OoW vDCWcy6ued3DcfITtuC UpTBtidLVvyiTuqs12u UD6tJ79KU6bGZYhRlU8 TXVcvdQ1Rjp9CFUgQJP kwTBaP319h7phm9hvzg YlmBP0gUhfOSWllehkC wJ6FPadBUAmdpswVJr6 DDufYTBzxZX8LLIcyJQ fH0MmCOChRO1wcpe2OM R5UFhxVCEyYoY1AMYmb EWvCDYhdAmlNLtvg705 XXQ1WvBxOKYksqJmkPi jwD8lImWgOZATtQ55lx 6arMH6n0SqKA5oJ3IyE ZV2ZGoikrPzxzTprJAg Dy8sbBYkOZXhIDWegZ6 9WVAoNKVqDE5twQGshV ljIGNlbGxzIHRvIGJlI VMhh9p6oYXcESVuwhRj wRRbr4FgBJTaldU8DFe wYXRjaHkpLCBQQVgtOC ejhAY0HMhuuZQalmcxK XOoGgQ9p5RaYTCcEAUj FJIbQGVnKN01DN43GKR fPQersoRoy2vfltdcOQ AFPZl3JIIdZV1qJFTpP MJqSLbcDO7ePHSXCGk8 THSePT7fONSjMQDtUCF iQGM3fk1tEifeWNHcTQ OdbSC5y4qaH0egTDQaK KMtuC80ge2ttJN5b8Ig ZH7bW4BeUTZnrtUcsxg zIGFyZSBpbiBrZWVwaW 5nIHdpdGggdGhlIGFib 1FcYPHmKQqxk6Tqti4t XHBhcn0= Gross Description (test y5lhnDIxDDTkbCBOLXy code = [id number]) wMFxhbnNpXHNwbHRwZ3 ShqkvwPByxPC7tCS7zq LtdqMMkpRVaUO6NSIHp ZmYxXHBhcGVydzEyMjQ rKRUtoWSrjQD4DRBxNN 1hcmdsMTgwMFxtYXJnc wA6MGQlwBOsI9YeYFYx JJ1ehwcbUKX0WKcztW2 vlwLUYdqjLk5rzQFxeM tcZjFcZmNoYXJzZXQwX DFmvYcxWFDbNOo1bX2N FrjtB05tc4O8Lpx5ERE mQZCyL2XgZZ6tOSZdrX TuF09EXmwhWHG7XUNFP ednFNSjZE6Jw6ioTAXd oYEjSRX3TDuohALkDGR oJUHjPDp5WDXnGYntaU PqFS8vsShfRdwqvCctb 2VjdCBcXGlkIDUxMDAy FSokOGDwNG6PPyQwKID sXWGmCBCaETo1YGz6KO 1ZPzQzRIAhLOYgErc0C qKfBKp2XPaiFA7OHHv4 EzQ0PpFaNID3ABV0BOH cXHQgMiBcXGYgQXJpYW wgXFxmcyAxMCBcXGZiI EzrRzbuLXdmP21yvEkv lO9hKpplpuBkBYA6LBS hciANClxwbGFpblxlcG ljTmVzdERvYzEgDQpcb HRycGFyXGxpbjBccmlu MCANClxsdHJjaFxiXGN mMVxmczIwIExlZnQgcG VsdmljIHNvZnQgdGlzc 6YqRA0uMPMxGUJudR4n l2nvx7v8fXEndA3aLKK rZXJzOlxiMFxjZjAgIE 48uGZooZafFZRfyk14c Vi6BIJao1HlMXXfu5Ig gZXfKE8dTKN3iekjYmN xLjQgeCAwLjUgeCAwLj IdT48htH0tWDommdOkX XRlLCBlbnRpcmVseSBz vAFedAV5MLHylF8cRPU uICBccHJvdGVjdHtcZm exvHZ2VVwfYihiuW9lp CBIWVBFUkxJTksgbmFt AS6PEL3BJuSHCD54LiL aMFA2CTaRD9NCxDQ2Sc f8KUn8kUruWorbtrIiz FVvCaFUgB1YGTxgPciy vGE2PFlmHghszH5wlQJ IWVBFUkxJTksgbmFtZT 9WBX9XPQ7ZqUVrJRF3t XH8OQUEMsoryGA5jVP0 xN26NVZbQZGlmAGyZQk mY619DBRxUYdwGLr4nv NoXGZzMjAgDQpcZXBpY 98fe8ZJs1GvPFAig0yb eOrlh8DcoOWrAMfcXZP gvCZfQXyhfF6nDxJgz5 hstWl6JEvugjJ8LRYum l7ftErixY9xNNous7ek AKR3GBRttXJyaYDiQQe ejCbwaH6sHeHmOpp8TU ztOFQzH4FtD1YtyzE4P HBsYWluXGZzMTYgDQp9 Biomarker Block(s) (test g0qwfJImUOCvcHY5OhR code = 9841) iBJRsf3phq2RlaOGnmJ VkVCktaVUvvdDqdd26g NB0zK36QU7vFNLnJoB9 DYFhdsS6Ehz7UYGkSMG rtVGlT680x5uds5dpqz FtrGD9gWgeEVBxhmfyT fK5YCotOAYksapgOZr6 PKvtPJJthVX9AFTkhUO aJ7OpVSUwSG1wbst1KX K3YZlpVAHsReZ8ZORrb PEmVHOjuPgxLDmnq566 QXH6MnDdXUFmdiKgaAh riO4nTxVoATLXNqBDAZ zwFYBbXoenBp9RCMIat lxwYXJ9 Disclaimer (test code = e3fqpUFlHPKzqCVaAuV 9862) hAOQwKAUdb0bwLGInkG FuZzEwMzNcZnRuYmpcd HHkUREqFnGin9bnh328 fRDwj8bjQDVbMtB0mHT bUGJhgHSuZ213ZJIcDB lge1qng0IpJUVpxJRwg 3A2FGZMqvijcGs3uXkw Y29bu5R3PwhtC7rtAXM sHOEaA2LtPM9oYEFcNg q4DRJ5LWS3TWJtYXFeP 8FhSH7sLOZlfGXkBNt5 b0aqhGzwNKNoQXS1l5n dFTnhbpXdLZ2ixa2agN y1h1akpnTvBBCzAVMur SEWSJZnM2MfhWluXt1q jYq4hMqyDnyuHIG2Hos 0JR8ttz55bqe2zMrqUF AspaczQdN3UOsoFJUga vcuKWq9DChwXFWvlVN5 DSNpwWDcR3FtUXSoGC2 uibx8REI9JEqtDRVgOy S8USMmyCPuNUXzvLttU Hqzh872KHZ5EaPoTL7c D9Kwo5I2hB2sxEZsIVZ wiTOdCcJiZYNucx4agT YlDBann6KfNAE9jlH1g KSepYTjSAHyZH67Pqvm b6UoEmzgKHD9TXPgciR oo1Fdz5cxHcQzkhOjQ2 ueQ7YuOYVdHBIdOABkJ mFiqtRcb5Rek2CbbQUo lBk5r4cgEJLdCJKqfYv vs5fzBYH9ABMeO3M6aU Eum1xrOKiqEIDxaFS3m kA7WRQutMTfO4SukF2k XPPqHO0rsuo9t8bzRRU 3BZqbXURfOsO7gmN2UO BcaGVhZGVyeTcyMFxmb 157UDM0LyBxQEPac0Cd G0JiuIvuK80keNptO63 uOLCiqLqucH3tiLfajP 5cZjBcZnMyNFxxbFxwb KByayfiSFotxkM6ICeb bppgYHZyYByqJ6mwQpD uKZCowEjhHYmwo3AvCG FzDJLiIwjgowL8TKPLc 91bBNVrz4KsOFGdgB7i mXMkVVfmiwIdpYM8RUn hdmUgYmVlbiBkZXZlbG 1mZZHhRG1kRKRsjiZxj f2actBrWXEaNYMiG0Nv cmlzdGljcyBkZXRlcm1 tsaTfAES0CDNDTH8GXC PzFBReo08zRLLdhEnut K9gfLBrxyBoWIUbu4Mo cH7jzRMWNYJaG0ffJF8 yEDexl6WcrZEdcIOosW W3PEPhe0LzGqLbxdFyo GQrjDHaW3UqdWupJ3yl OKKaCOQwheNlcXQqt1I fYLJhxPZ8yXMdCU2PMn XTw54xUMJiZBSRytFeS PXtcUkpkHL4uyN2iL5m LiBJZiBhcHBsaWNhYmx jMTTju797lc8pdeP5OZ ZtEUTvvkjdr5JlQJKjK MUziA36WZMrCGNrpu4b lzvpsMPrnbQqE8Vfbmn 9hE7fBXLcQQqgYELwBJ ZzMjJcbGFuZzEwMzNca GljaFxmMVxkYmNoXGYx UTktF1xcAoZiTxCkZla wYXJ9 MD DonaldsonHI MSI by PCR Material [id number] 19:36:01 Test Item Value Reference Range Interpretation Comments Archived Material Previously diagnosed (test code = 55882) tissues from [id number] were selected for molecular analysis. Results will be reported separately. [facility] [id number] 13:57:27 Test Item Value Reference Range Interpretation Comments POC Crea (test code 0.9 mg/dL 0.6-1.3 Medicati ons, especially = 85625-2) hydroxyurea or supplements, castro ch as ascorbate, can interfere with test resul ts causing a false ly and significantly h igher result than exp ected. If a problem is castro spected with a patient' s result, a sample should be sent to the [facility] for confirmatory te sting. Method descript ion: The i-STAT is an an alyzer used for in vit ro quantification of various analyte s in whole blood. Th e device uses a single d isposable cartridge which contains microfabricated sensors, a calibration s olution, fluidics system , and a waste chamber. Each test cartridge conta ins chemically sens itive biosensors on a silicon chip that are c onfigured to perform spec ific tests. The microfabricated sensors measure analyte concentration b y an electrochemical assay. POC eGFR-AA (test 75 See_Comment Normal eGF R >= 60 code = 12430-3) mL/min/1.73 m2 The eGFR is calculated u sing the CKD-EPI equatio n. The eGFR declines w ith age. eGFR <60 mL/min /1.73 m2 is considered a s "decreased" Thi s equation should only be used for patien ts 18 and older. Tami g to the National Kid[employer]'s Ki dney Disease Outcome Quality Initiative (KDO QI) classification and 2012 Kidney Disease Improving Global Outcomes (KDIGO) Clinical Practi ce Guideline, the stage of CKD should be categorized bas ed on estimated GFR. Stage Description GFR mL/min/1.73 m21 Kidney damage with nor mal or high GFR >= 902 Kidney damage w ith mild decrease in GFR 60-893a Mild to moderate decrease in GFR 45-593b Moderat e to severe decrease in GFR 30-444 Severe decrease in GFR 15-29 5 Kidney failure <15 (or dialysis) [Aut omated message] The sy stem which generated this result transmit elena reference range : >=60 mL/min/1.73 m2. The reference range was not used to interpr et this result as normal/abnormal . POC eGFR-EVELINA (test 65 See_Comment Normal eG FR >= 60 code = 21545-7) mL/min/1.73 m2 The eGFR is calculated u sing the CKD-EPI equatio n. The eGFR declines w ith age. eGFR <60 mL/min /1.73 m2 is considered a s "decreased" Thi s equation should only be used for patien ts 18 and older. Tami g to the National Kid[employer]'s Ki dney Disease Outcome Quality Initiative (KDO QI) classification and 2012 Kidney Disease Improving Global Outcomes (KDIGO) Clinical Practi ce Guideline, the stage of CKD should be categorized bas ed on estimated GFR. Stage Description GFR mL/min/1.73 m21 Kidney damage with nor mal or high GFR >= 902 Kidney damage w ith mild decrease in GFR 60-893a Mild to moderate decrease in GFR 45-593b Moderat e to severe decrease in GFR 30-444 Severe decrease in GFR 15-29 5 Kidney failure <15 (or dialysis) [Aut omated message] The sy stem which generated this result transmit elena reference range : >=60 mL/min/1.73 m2. The reference range was not used to interpr et this result as normal/abnormal . POC Clean Dev (test Yes code = 6672) Performing Lab (test [facility] code = 51948) [facility], [address] [facility], [place], [place] [address]; Point of Care Lab Dir foreign: MD MD Mendoza [facility]BA[facility] [id number] 08:35:00 Test Item Value Reference Range Interpretation Comments SODIUM (BEAKER) 137 meq/L 135-148 (test code = 381) POTASSIUM (BEAKER) 4.3 meq/L 3.6-5.5 Specimen moderately (test code = 379) hemolyzed CHLORIDE (BEAKER) 100 meq/L 98-106 (test code = 382) CO2 (BEAKER) (test 25 meq/L 20-29 code = 355) BLOOD UREA NITROGEN 14 mg/dL 10-26 (BEAKER) (test code = 354) CREATININE (BEAKER) 0.84 mg/dL 0.50-1.20 Specimen moderately (test code = 358) hemolyzed GLUCOSE RANDOM 98 mg/dL 70-110 (BEAKER) (test code = 652) CALCIUM (BEAKER) 10.0 mg/dL 8.5-10.5 (test code = 697) EGFR (BEAKER) (test 82 mL/min/1.73 ESTIMA ELENA GFR IS code = 1092) sq m NOT ACCURATE CREATININE CLEARANCE IN PREDICTING GLOMERULAR FILTRATION RATE . ESTIMATED GFR I S NOT APPLICABLE FOR DIALYSIS PATIEN TS. CBC W/PLT COUNT & AUTO [id number] 08:10:00 Test Item Value Reference Range Interpretation [...]
[2021-12-02] MEDS ORDERED: NITROGLYCERIN 1 GM PKT TD ONE (03:00)
[2021-12-02 03:23] LABS: Absolute Lymphocytes (CBC) 1.3 K/uL (0.7-4.9); Hematocrit 37.3 % (36.0-45.0); Lymphocytes % 24.1 % (15.3-44.8); MPV 8.4 fL (7.6-11.3); RBC Red Blood Cell Count 4.32 M/uL (3.86-4.86)
[2021-12-02 03:34] LABS: Protime INR 1.16
[2021-12-02] MEDS ORDERED: FUROSEMIDE 100 MG/10 ML VIAL IV ONE ×2 (03:45→10:43)
[2021-12-02 03:48] LABS: Albumin 3.6 g/dL (3.4-5.0); Bilirubin Direct 0.4 mg/dL (0-0.2); Bilirubin Total 1.3 mg/dL (0.2-1.0); Protein, Total 7.6 g/dL (6.4-8.2); Troponin High Sensitivity 20.5 pg/mL (<58.9)
[2021-12-02 03:49] LABS: Magnesium 2.4 mg/dL (1.8-2.4); Potassium 4.4 mmol/L (3.5-5.1)
--- NOTE | 2021-12-02 04:10 | EDPHYS ---
Physician Documentation [facility] Name: Misa Claros Age: 71 yrs Sex: Female : 1950 Arrival Date: 12/01/2021 Time: 23:41 Bed 23 Private MD: ED Physician Jeffry Cerna HPI: 12/02 01:15 This 71 yrs old Black Female presents to ER via Wheelchair with complaints of High mh7 Blood Pressure. Shortness of breath. 01:15 The patient has shortness of breath with light activity. Onset: The symptoms/episode mh7 began/occurred 2 day(s) ago. Duration: The symptoms are intermittent, with no pattern. The patient's shortness of breath is aggravated by exertion, light activity, is alleviated by sitting up. Associated signs and symptoms: Pertinent positives: chest pain, Pertinent negatives: non-productive cough, productive cough, diaphoresis, dizziness, fever, hemoptysis, loss of consciousness, nausea, numbness in extremities, visual changes, vomiting. Severity of symptoms: At their worst the symptoms were moderate 2 day(s) ago, in the emergency department the symptoms are unchanged. Historical: - Allergies: 00:21 Codeine; tw5 00:21 Morphine; tw5 - Home Meds: 00:21 pravastatin 20 mg oral tab 1 tab once daily [Active]; aspirin 81 mg Oral cpDR [Active]; tw5 levothyroxine 25 mcg tab 1 tab once daily [Active]; spironolactone 25 mg Oral tab 1 tab once daily [Active]; clopidogrel 75 mg oral tab 1 tab once daily [Active]; famotidine 20 mg Oral tab 1 tab 2 times per day [Active]; metoprolol tartrate 25 mg Oral tab 1 tab 2 times per day [Active]; - PMHx: 00:21 Back pain; Hypertension; sciatica; uterine cancer; diagnosed a year ago; tw5 - Immunization history:: Flu vaccine is not up to date. Patient has never been vaccinated. - Social history:: Smoking status: Patient denies any tobacco usage or history of. ROS: 01:15 Constitutional: Negative for fever, chills, and weight loss, Eyes: Negative for injury, mh7 pain, redness, and discharge, ENT: Negative for injury, pain, and discharge, Neck: Negative for injury, pain, and swelling, Abdomen/GI: Negative for abdominal pain, nausea, vomiting, diarrhea, and constipation, Back: Negative for injury and pain, : Negative for injury, bleeding, discharge, and swelling, MS/Extremity: Negative for injury and deformity, Skin: Negative for injury, rash, and discoloration, Neuro: Negative for headache, weakness, numbness, tingling, and seizure, Psych: Negative for depression, anxiety, suicide ideation, homicidal ideation, and hallucinations, Allergy/Immunology: Negative for hives, rash, and allergies, Endocrine: Negative for neck swelling, polydipsia, polyuria, polyphagia, and marked weight changes, Hematologic/Lymphatic: Negative for swollen nodes, abnormal bleeding, and unusual bruising. Exam: 01:15 Head/Face: Normocephalic, atraumatic. Eyes: Pupils equal round and reactive to light, mh7 extra-ocular motions intact. Lids and lashes normal. Conjunctiva and sclera are non-icteric and not injected. Cornea within normal limits. Periorbital areas with no swelling, redness, or edema. Neck: Trachea midline, no thyromegaly or masses palpated, and no cervical lymphadenopathy. Supple, full range of motion without nuchal rigidity, or vertebral point tenderness. No Meningismus. Chest/axilla: Normal chest wall appearance and motion. Nontender with no deformity. No lesions are appreciated. 01:15 Abdomen/GI: Soft, non-tender, with normal bowel sounds. No distension or tympany. No guarding or rebound. No evidence of tenderness throughout. Back: No spinal tenderness. No costovertebral tenderness. Full range of motion. Skin: Warm, dry with normal turgor. Normal color with no rashes, no lesions, and no evidence of cellulitis. MS/ Extremity: Pulses equal, no cyanosis. Neurovascular intact. Full, normal range of motion. Neuro: Awake and alert, GCS 15, oriented to person, place, time, and situation. Cranial nerves II-XII grossly intact. Motor strength 5/5 in all extremities. Sensory grossly intact. Cerebellar exam normal. Normal gait. Psych: Awake, alert, with orientation to person, place and time. Behavior, mood, and affect are within normal limits. 01:15 Constitutional: The patient appears in no acute distress, alert, awake, uncomfortable. 01:15 Cardiovascular: Rate: tachycardic, Rhythm: regular, Pulses: no pulse deficits are appreciated, Heart sounds: normal, normal S1and S2, Edema: pedal edema, that is moderate, JVD: is not appreciated. 01:15 Respiratory: the patient does not display signs of respiratory distress, Respirations: prolonged exhalation, that is mild, Breath sounds: rhonchi, that are mild, are heard diffusely, Respiratory rate: 18 Vital Signs: 00:18 BP 150 / 107; Pulse 105; Resp 18; Temp 98.5; Pulse Ox 98% on R/A; Weight 101.15 kg; tw5 Height 5 ft. 4 in. (162.56 cm); Pain 0/10; 04:30 BP 153 / 123; Pulse 94; Resp 16; Pulse Ox 100% ; cg1 05:54 Weight 101.15 kg; Height 5 ft. 4 in. (162.56 cm); sv1 08:00 BP 149 / 100; Pulse 103; Resp 24; Temp 97.6; Pulse Ox 97% ; td 05:54 Body Mass Index 38.28 (101.15 kg, 162.56 cm) sv1 MDM: 04:03 Differential diagnosis: Anemia Anxiety Reaction asthma, Bronchitis CHF exacerbation, mh7 Chronic Obstructive Pulmonary Disease Myocardial Infarction pneumonia, Psychogenic pulmonary edema, reactive airway disease. Data reviewed: vital signs, nurses notes, old medical records, lab test result(s), cardiac enzymes, CBC, electrolytes, EKG, radiologic studies, plain films. Data interpreted: Pulse oximetry: on room air is 98 %. Interpretation: normal. Counseling: I had a detailed discussion with the patient and/or guardian regarding: the historical points, exam findings, and any diagnostic results supporting the discharge/admit diagnosis, the presence of at least one elevated blood pressure reading (>120/80) during this emergency department visit, lab results, radiology results, the need for further work-up and treatment in the hospital. Response to treatment: the patient's symptoms have mildly improved after treatment. 04:10 Patient medically screened. 12/02 01:05 Order name: Basic Metabolic Panel; Complete Time: 03:57 [facility] 12/02 01:05 Order name: CBC with Diff; Complete Time: 03:57 [facility] 12/02 01:05 Order name: LFT's; Complete Time: 03:57 [facility] 12/02 01:05 Order name: Magnesium; Complete Time: 03:57 [facility] 12/02 01:05 Order name: NT PRO-BNP; Complete Time: 03:57 [facility] 12/02 01:05 Order name: PT-INR; Complete Time: 03:57 [facility] 12/02 01:05 Order name: Troponin HS; Complete Time: 03:57 [facility] 12/02 04:11 Order name: COVID-19/FLU A+B (Document "Date of Onset" if Symptomatic) [facility] 12/02 04:18 Order name: Basic Metabolic Panel MS 12/02 04:18 Order name: Basic Metabolic Panel MS 12/02 04:18 Order name: CBC with Automated Diff EDMS 12/02 04:18 Order name: CBC with Automated Diff EDMS 12/02 04:18 Order name: NT PRO-BNP [facility] 12/02 04:18 Order name: NT PRO-BNP [facility] 12/02 01:05 Order name: XRAY Chest (1 view) [facility] 12/02 01:05 Order name: EKG; Complete Time: 01:06 [facility] 12/02 01:05 Order name: Cardiac monitoring; Complete Time: 03:16 [facility] 12/02 01:05 Order name: EKG - Nurse/Tech; Complete Time: 02:54 [facility] 12/02 01:05 Order name: IV Saline Lock; Complete Time: 03:16 [facility] 12/02 01:05 Order name: Labs collected and sent; Complete Time: 03:16 [facility] 12/02 01:05 Order name: O2 Per Protocol; Complete Time: 03:16 [facility] 12/02 01:05 Order name: O2 Sat Monitoring; Complete Time: 03:16 [facility] 12/02 04:18 Order name: 60g Consistent Carbohydrate (ADA 1800/2000) [facility] 12/02 04:18 Order name: EKG Electrocardiogram EDMD 12/02 04:18 Order name: EKG Electrocardiogram EDMD 12/02 04:19 Order name: Chest Single View EDMS 12/02 04:19 Order name: Chest Single View EDMS 12/02 08:49 Order name: CT EDMS Administered Medications: 03:22 Drug: Nitro-Bid (nitroglycerin) Ointment 2 % 0.5 inches Route: Transdermal; Site: sv1 anterior chest wall; 03:58 Drug: Lasix (furosemide) 20 mg Route: IVP; Site: left hand; sv1 04:31 Follow up: Response: No adverse reaction sv1 Disposition Summary: 12/02/21 04:10 Hospitalization Ordered Hospitalization Status: Inpatient Admission [facility] Provider: Mateo Chavez Condition: Stable [facility] Problem: an acute exacerbation [facility] Symptoms: have improved [facility] Bed/Room Type: Standard 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, [place] em1 Jeffry Cerna MD MD [facility] Fe Thacker 5 Dale Mcdonald RN RN sv1 Corrections: (The following items were deleted from the chart) 04:17 04:10 Telemetry/MedSurg (Inpatient) 7 mw 04:17 04:10 7 mw 15:51 04:17 [facility] ER HOLD mw em1 15:51 04:17 ERHOLD- mw em1
--- NOTE | 2021-12-02 04:10 | ER ---
Nurse's Notes [facility] Name: Misa Claros Age: 71 yrs Sex: Female : 1950 Arrival Date: 12/01/2021 Time: 23:41 Bed 23 Private MD: Diagnosis: Acute on chronic combined systolic (congestive) and diastolic (congestive) heart failure Presentation: 12/02 00:18 Chief complaint: Chief complaint: Patient states: "I got really short winded. I walked tw5 a little bit then I would get out of breath. I had some tests done on my heart. I checked my blood pressure it said it was 144/93, then I got more short winded, then I checked it again and it was 155/105.". Coronavirus screen: Vaccine status: Patient reports receiving the 2nd dose of the covid vaccine. 2theloo. Ebola Screen: Patient negative for fever greater than or equal to 101.5 degrees Fahrenheit, and additional compatible Ebola Virus Disease symptoms Patient denies exposure to infectious person. Patient denies travel to an Ebola-affected area in the 21 days before illness onset. Initial Sepsis Screen: Does the patient meet any 2 criteria? HR > 90 bpm. Does the patient have a suspected source of infection? Yes: Productive cough/pneumonia. Risk Assessment: Do you want to hurt yourself or someone else? Patient reports no desire to harm self or others. Onset of symptoms was December 01, 2021. 00:18 Method Of Arrival: Wheelchair tw5 00:18 Acuity: VINOD 3 tw5 Triage Assessment: 00:21 General: Appears in no apparent distress. comfortable, Behavior is calm, cooperative, tw5 appropriate for age. Pain: Denies pain. Historical: - Allergies: 00:21 Codeine; tw5 00:21 Morphine; tw5 - Home Meds: 00:21 pravastatin 20 mg oral tab 1 tab once daily [Active]; aspirin 81 mg Oral cpDR [Active]; tw5 levothyroxine 25 mcg tab 1 tab once daily [Active]; spironolactone 25 mg Oral tab 1 tab once daily [Active]; clopidogrel 75 mg oral tab 1 tab once daily [Active]; famotidine 20 mg Oral tab 1 tab 2 times per day [Active]; metoprolol tartrate 25 mg Oral tab 1 tab 2 times per day [Active]; - PMHx: 00:21 Back pain; Hypertension; sciatica; uterine cancer; diagnosed a year ago; tw5 - Immunization history:: Flu vaccine is not up to date. Patient has never been vaccinated. - Social history:: Smoking status: Patient denies any tobacco usage or history of. Screenin:27 Abuse screen: Denies threats or abuse. Nutritional screening: No deficits noted. sv1 Tuberculosis screening: No symptoms or risk factors identified. Fall Risk No fall in past 12 months (0 pts). Secondary diagnosis (15 points) IV access (20 points). Ambulatory Aid- None/Bed Rest/Nurse Assist (0 pts). Gait- Weak (10 pts.). Mental Status- Oriented to own ability (0 pts). Assessment: 04:27 Reassessment: All labs drawn and sent. IV started after 3 trys,. sv1 Vital Signs: 00:18 BP 150 / 107; Pulse 105; Resp 18; Temp 98.5; Pulse Ox 98% on R/A; Weight 101.15 kg; tw5 Height 5 ft. 4 in. (162.56 cm); Pain 0/10; 04:30 BP 153 / 123; Pulse 94; Resp 16; Pulse Ox 100% ; cg1 05:54 Weight 101.15 kg; Height 5 ft. 4 in. (162.56 cm); sv1 08:00 BP 149 / 100; Pulse 103; Resp 24; Temp 97.6; Pulse Ox 97% ; td 05:54 Body Mass Index 38.28 (101.15 kg, 162.56 cm) sv1 ED Course: 12/01 23:41 Patient arrived in ED. ag3 03/11 00:21 Triage completed. tw5 00:21 Arm band placed on right wrist. tw5 00:45 Jeffry Cerna MD is Attending Physician. mh7 00:58 Dale Mcdonald, COREY is Primary Nurse. sv1 02:11 XRAY Chest (1 view) In Process Unspecified. EDMS 03:16 Initial lab(s) drawn, by me, sent to lab. Inserted saline lock: 20 gauge in left hand, tw5 using aseptic technique. Blood collected. 03:16 Basic Metabolic Panel Sent. tw5 03:16 CBC with Diff Sent. tw5 03:16 LFT's Sent. tw5 03:16 Magnesium Sent. tw5 03:16 NT PRO-BNP Sent. tw5 03:16 PT-INR Sent. tw5 03:16 Troponin HS Sent. tw5 03:23 Basic Metabolic Panel Sent. sv1 03:23 CBC with Diff Sent. sv1 03:23 LFT's Sent. sv1 03:23 Magnesium Sent. sv1 03:23 PT-INR Sent. sv1 03:23 Troponin HS Sent. sv1 04:09 Mateo Chavez MD is Hospitalizing Provider. 7 04:27 Patient has correct armband on for positive identification. Placed in gown. Bed in low sv1 position. Call light in reach. Side rails up X2. Adult w/ patient. 04:27 No provider procedures requiring assistance completed. sv1 04:54 COVID-19/FLU A+B (Document "Date of Onset" if Symptomatic) Sent. sv1 07:00 Patient admitted, IV remains in place. jl7 Administered Medications: 03:22 Drug: Nitro-Bid (nitroglycerin) Ointment 2 % 0.5 inches Route: Transdermal; Site: sv1 anterior chest wall; 03:58 Drug: Lasix (furosemide) 20 mg Route: IVP; Site: left hand; sv1 04:31 Follow up: Response: No adverse reaction sv1 Outcome: 04:10 Decision to Hospitalize by Provider. [facility] 07:00 Admitted to ER Hold. Please see [facility] for further documentation. 7 07:00 Condition: stable 07:00 Discharge instructions given to patient, Instructed on the need for admit, Demonstrated understanding of instructions. 17:42 Patient left the ED. [facility] Signatures: Dispatcher [employer] EDLynne Ewing, RN RN 7 Zoey Todd td, Alice 3 Jeffry Cerna MD MD 7 Uriah Kenny 1 Fe Thacker tw5 Dlae Mcdonald RN RN 1
[2021-12-02] MEDS ORDERED: IPRATROPIUM BROM 0.5MG/2.5ML NEB PRN (04:16)
[2021-12-02] MEDS ORDERED: ALBUTEROL 2.5 MG/3 ML NEB SOL NEB PRN (04:16)
[2021-12-02] MEDS ORDERED: ACETAMINOPHEN 500 MG TAB PO PRN (04:16)
[2021-12-02] MEDS ORDERED: ONDANSETRON 4 MG/2 ML VIAL IV PRN (04:16)
[2021-12-02 05:39] LABS: SARS-COV-2 RT PCR NEGATIVE (NEGATIVE)
--- NOTE | 2021-12-02 07:27 | RAD REPORT ---
EXAM DESCRIPTION: RAD - Chest Single View - 12/02/2021 2:12 am CLINICAL HISTORY: hypertensive COMPARISON: Chest Pa And Lat (2 Views) dated 12/23/2020; Chest Single View dated 12/08/2020; Chest Sing le View dated 06/13/2018; Chest Single View dated 05/27/2018 FINDINGS: Lines: None. Lungs: Increased mild interstitial edema. Pleural: No significant pleural effusions or pneumothorax. Cardiac: Cardiomegaly. Bones: No acute fractures. Other: IMPRESSION: New interstitial edema.
[2021-12-02] MEDS ORDERED: SODIUM CHLORIDE 0.9% 10ML INJ IV PRN (08:22)
--- NOTE | 2021-12-02 08:48 | RAD REPORT ---
EXAM DESCRIPTION: CT - Chest Angio - 12/02/2021 8:39 am CLINICAL HISTORY: Chest discomfort COMPARISON: Chest For Pe Angio dated 06/13/2018 FINDINGS: Chest Wall: No suspicious thyroid nodules or pathologic lymphadenopathy. Lungs: Interlobular septal thickening. Pleura: Small pleural effusions. Mediastinum/tariq: No pathologic lymphadenopathy. Pulmonary arteries/Aorta: No filling defect identified. No aortic aneurysm. Enlarged main pulmonary a rtery could indicate pulmonary artery hypertension. Heart: No significant pericardial effusion. Cardiomegaly. Upper abdomen: Right upper pole renal lesion, likely a cyst. Partially imaged left renal lesion, also statistically benign. Cholecystectomy. Reflux of contrast into the hepatic veins. Bones: No acute abnormality. All CT scans are performed using dose optimization technique as appropriate and may include automated exposure control or mA/KV adjustment according to patient size. IMPRESSION: Negative for pulmonary embolism. Pulmonary edema/congestive heart failure is present. Sm all pleural effusions .
[2021-12-02] MEDS: PANTOPRAZOLE 40 MG INJ IVP SCH (09:00)
[2021-12-02] MEDS ORDERED: POTASSIUM CL SA 10 MEQ TAB PO SCH (09:00)
[2021-12-02] MEDS: FUROSEMIDE 20 MG/ 2ML VIAL IV SCH ×2 (09:00→17:00)
[2021-12-02] MEDS: APIXABAN 5 MG TABLET PO SCH ×2 (09:00→20:00)
[2021-12-02] MEDS ORDERED: APIXABAN 5 MG TABLET ONE (10:40)
[2021-12-02] MEDS ORDERED: PRASUGREL (EFFIENT) 10 MG TAB ONE (10:41)
[2021-12-02] MEDS ORDERED: POTASSIUM CL SA 10 MEQ TAB PO ONE (10:42)
[2021-12-02] MEDS ORDERED: PANTOPRAZOLE 40 MG INJ ONE (10:44)
[2021-12-02] MEDS ORDERED: FUROSEMIDE 20 MG/ 2ML VIAL ONE ×2 (10:46→17:12)
[2021-12-02] MEDS ORDERED: METOPROLOL TAR 25 MG TAB ONE (11:49)
[2021-12-02] MEDS ORDERED: GABAPENTIN 300 MG CAP ONE (11:49)
--- NOTE | 2021-12-02 13:09 | EKG ---
Test Date: 2021-12-02 Test Time: 02:52:31 Piccoloist: BABS MEASUREMENT RESULTS: Intervals: Rate: 96 WI: QRSD: 84 QT: 368 QTc: 464 Smiley: P: WI: QRS: 89 T: 13 INTERPRETIVE STATEMENTS: Atrial fibrillation with premature ventricular or aberrantly conducted complexes ST & T wave abnormality, consider anterolateral ischemia or digitalis effect Abnormal ECG Compared to ECG 12/08/2020 12:02:19 Ventricular premature complex(es) now present ST (T wave) deviation now present Possible ischemia now present Sinus rhythm no longer present Sinus arrhythmia no longer present Myocardial infarct finding no longer present Electronically Signed On 12-02-21 13:07:55 DEPARTMENT ADMINISTRATOR by David Dobson
--- NOTE | 2021-12-02 13:16 | ECHO ---
HEIGHT: 5 ft 4 in WEIGHT: 223 lb 0 oz DATE OF STUDY: 12/02/[address]: David Dobson MD 2-DIMENSIONAL: YES M.MODE: YES DOPPLER: YES COLOR FLOW: YES TDS: NO PORTABLE: NO DEFINITY: NO BUBBLE STUDY: NO DIAGNOSIS: ATRIAL FIBRILLATION, CONGESTIVE HEART FAILURE CARDIAC HISTORY: CATHERIZATION: SURGERY: PROSTHETIC VALVE: PACEMAKER: MEASUREMENTS (cm) DIASTOLIC (NORMALS) SYSTOLIC (NORMALS) IVSd 1.3 (0.6-1.2) LA Diam 3.3 (1.9-4.0) LVEF 11% LVIDd 4.9 (3.5-5.7) LVIDs 4.6 (2.0-3.5) %FS 5% LVPWd 1.4 (0.6-1.2) Ao Diam 2.6 (2.0-3.7) 2 DIMENSIONAL ASSESSMENT: RIGHT ATRIUM: NORMAL LEFT ATRIUM: NORMAL RIGHT VENTRICLE: NORMAL LEFT VENTRICLE: LEFT VENTRICULAR HYPERTROPHY TRICUSPID VALVE: NORMAL MITRAL VALVE: NORMAL PULMONIC VALVE: NORMAL AORTIC VALVE: NORMAL PERICARDIAL EFFUSION: NONE AORTIC ROOT: NORMAL LEFT VENTRICULAR WALL MOTION: SEVERE GLOBAL HYPOKINESIS. DOPPLER/COLOR FLOW: SEVERE PULMONARY HYPERTENSION. COMMENTS: SEVERE GLOBAL HYPOKINESIS. LEFT VENTRICULAR EJECTION FRACTION 15-20%. SEVERE PULMONARY HYPERTENSION. LEFT VENTRICULAR HYPERTROPHY. TECHNOLOGIST: Ila NORRIS
--- NOTE | 2021-12-02 15:55 | P.HP ---
Certification for Inpatient Patient admitted to: Inpatient With expected LOS: >2 Midnights Practitioner: I am a practitioner with admitting privileges, knowledge of patient current condition, hospital course, and medical plan of care. Services: Services provided to patient in accordance with Admission requirements found in Title 42 Section 412.3 of the Code of Federal Regulations Patient History Date of Service: 12/02/21 Reason for admission: SHORT OF BREATH History of Present Illness: MS. BURNS IS A PATIENT WITH HISTORY OF UTERINE CANCER WHO HAD CT SCAN DONE AT [facility] FOUND TO HAVE LYMPH NODE ENLARGEMENT IN UPPER ABDOMEN THAT PER PATIENT WAS POSITIVE TO BE CANCER. WE HAVE NO REPORTS FROM [place] TO CONFIRM. SHE HAD CATH OVER THERE AND WAS FOUND TO BE IN A FIB. THEY DID NOT START HER ON ANTICOAGULATION BUT ASKED HER TO GET STARTED. SHE COMES HERE WITH DYSPNEA, HAS A FIB, CHF AND DR. HUI DID ECHO JUST TODAY TO FIND HER EF DOWN TO 15%. THIS IS ALL NEW FOR HER. Allergies codeine [Codeine] Allergy (Intermediate, Verified 12/23/20 14:11) VOMITING morphine Allergy (Verified 12/23/20 14:11) Nausea/Vomiting Home medications list reviewed: Yes Home Medications: Gabapentin 300 mg PO Q12HR 12/08/20 Clopidogrel Bisulfate [Plavix*] 75 mg PO DAILY #90 tablet 12/09/20 Losartan Potassium [Cozaar*] 50 mg PO DAILY tablet 12/09/20 Spironolactone 25 mg PO DAILY #90 tablet 12/09/20 Ergocalciferol (Vitamin D2) [Vitamin D2] 50,000 unit PO SEECOM 12/23/20 Pravastatin Sodium 20 mg PO BEDTIME 12/23/20 Smz./Tmp. [Bactrim Ds 800 MG/160 MG] 1 tab PO BID #20 tab 12/26/20 Metoprolol Tartrate [Lopressor*] 25 mg PO BID 12/02/21 - Past Medical/Surgical History Diabetic: No -: uterine cancer -: htn -: total hysterectomy -: c section -: lap siobhan - Family History Mother -: Heart disease, Other (see notes) Notes: heart attack Father -: Heart disease, Other (see notes) Notes: heart attack - Social History Alcohol use: Yes CD- Drugs: No Caffeine use: Yes Review of Systems 10-point ROS is otherwise unremarkable General: Weakness, Malaise, As per HPI Eyes: As per HPI Respiratory: Shortness of Breath Cardiovascular: Paroxysmal Noc. Dyspnea Gastrointestinal: No Distention, Unremarkable Genitourinary: Unremarkable Musculoskeletal: Unremarkable Integumentary: Unremarkable Physical Examination - Vital Signs Temperature: 96.8 F Blood Pressure: 139/105 Pulse: 112 Respirations: 18 Pulse Ox (%): 100 - Physical Exam General: Alert, Moderate distress, Obese HEENT: Atraumatic, PERRLA, Mucous membr. moist/pink, EOMI, Sclerae nonicteric Neck: JVD distended Respiratory: Diminished Cardiovascular: Regular rate/rhythm, Normal S1 S2 Gastrointestinal: Normal bowel sounds, No tenderness Musculoskeletal: No tenderness Integumentary: No rashes Neurological: Normal gait, Normal speech, Normal strength at 5/5 x4 extr, Normal tone, Normal affect Lymphatics: No axilla or inguinal lymphadenopathy - Studies Laboratory Data (last 24 hrs) 12/02/21 03:11: PT 12.8 H, INR 1.16 12/02/21 03:11: WBC 5.30, Hgb 12.2, Hct 37.3, Plt Count 149 L 12/02/21 03:11: Sodium 138, Potassium 4.4, BUN 19 H, Creatinine 1.18, Glucose 119 H, Magnesium 2.4, Total Bilirubin 1.3 H, AST 105 H, ALT 122 H, Alkaline Phosphatase 171 H Assessment and Plan - Problems (Diagnosis) (1) Acute systolic heart failure Current Visit: Yes Status: Acute Plan: SHE HAS NEW DIAGNOSIS OF CHF. SHE HAS HAD CAD WITH STENTS IN THE PAST. CONTINUE LASIX BID. SPIRONOLACTON DAILY ADD ENTRESTO STOP LOSARTAN. STOP METPROLOL STAR CARVEDILOL CONTINUE ELIQUIS. PROGNOSIS IS POOR WITH EF OF15%. PATIENT AND FAMILY ARE AWARE. (2) A-fib Onset Date: 05/30/18 Current Visit: No Status: Acute Qualifiers: (3) HTN (hypertension) Onset Date: 05/28/18 Current Visit: No Status: Chronic - Advance Directives Does patient have a Living Will: Yes Does patient have a Durable POA for Healthcare: No
[2021-12-02 16:07] VITALS: BMI 38.2
[2021-12-02] MEDS ORDERED: METOPROLOL TAR 25 MG TAB PO SCH (18:00)
[2021-12-02] MEDS: carvediloL 6.25 MG TAB PO SCH (20:00)
[2021-12-02] MEDS: ATORVASTATIN 10 MG TAB PO SCH (20:00)
[2021-12-02] MEDS: GABAPENTIN 300 MG CAP PO SCH (20:00)
[2021-12-02] MEDS ORDERED: HOME MED 1 EA UNK (Pravastatin Sodium [Pravastatin Sodium] 20 MG Tablet) PO SCH (21:00)
[2021-12-02] MEDS ORDERED: GABAPENTIN 300 MG CAP PO SCH (21:00)
[2021-12-02] MEDS ORDERED: ATORVASTATIN 10 MG TAB PO SCH (21:00)
--- NOTE | 2021-12-03 00:38 | CON ---
Date of Consultation: 12/02/[address] to Dr. Chavez on 12/02/2021. I saw the patient on 12/02/2021. Reason For Consultation: New onset congestive heart failure and atrial fibrillation. History Of Present Illness: Ms. Claros was recently at [facility], being worked up for possible ca ncer, has had a history of CVA, hypertension, has had uterine cancer in the past. Apparently had a n ormal heart catheterization as part of a cardiac clearance, which was normal. We do not really have any records. Apparently, there is a biopsy planned on abdominal lesion. Again, no details available , but she came in with CHF, atrial fibrillation, rapid ventricular response. She has had PND, orthop cecil, pedal edema, and palpitation. Denied any syncope, nausea, vomiting, or diaphoresis. She denied any fever or chills. Allergies: SHE IS ALLERGIC TO CODEINE AND MORPHINE. Review of Systems: Negative. Social History: Negative. Family History: Negative. Medications: At home is losartan, Norvasc, which was just changed to metoprolol. She is also on Chance vix, pravastatin, Neurontin, and Aldactone. She is not taking any diuretic. Physical Examination: Vital Signs: Stable except that she was in atrial fibrillation with rate of 126. HEENT: Negative. Neck: Supple. No bruit. Chest: Revealed rales in both lungs. Cardiac: Revealed atrial fibrillation. Abdomen: Obese, but benign. Extremities: Revealed 1+ edema. Laboratory Data: Chest x-ray showed CHF. BNP was 6794. She had negative troponin, elevated liver f unction tests. She had a normal echo in 2020. Impression And Plan: 1.New onset acute systolic congestive heart failure. 2.New onset atrial fibrillation. 3.Hypertension. 4.History of cerebrovascular accident. 5.Possible cancer in the abdominal region, details unknown. I think we need to do an echocardiogram as soon as possible. Continue her losartan, her Aldactone, her Lasix, her beta denny, her Plavix. We will see what the echo shows before making further decisions. She needs to be anticoagulated. For now, we will aim for rate control by cardioversion. I will continue to follow her with Dr. Chavez . DALTON/UNA Voice ID: [id number] Report ID: [id number]
[2021-12-03 05:53] LABS: Absolute Lymphocytes (CBC) 1.2 K/uL (0.7-4.9); Hematocrit 32.8 % (36.0-45.0); Lymphocytes % 28.2 % (15.3-44.8); MPV 8.5 fL (7.6-11.3); RBC Red Blood Cell Count 3.81 M/uL (3.86-4.86)
[2021-12-03 06:19] LABS: Potassium 3.4 mmol/L (3.5-5.1)
--- NOTE | 2021-12-03 08:00 | PN ---
Date of Progress Note: 12/03/2021 Subjective: Ms. Claros was admitted with new-onset atrial fibrillation, congestive heart failure, e jection fraction about 15% to 20%. Has had a history of CVA and hypertension. Case was discussed wi Dr. Chavez yesterday. She is definitely feeling a lot better today. Her atrial fibrillation rate is controlled at about 80. She is on anticoagulants. She should go home on anticoagulation preferab ly Eliquis, Aldactone, furosemide, carvedilol, as well as Entresto. She will need close followup fro m a cardiac standpoint. If her ejection fraction remains low over the next 90 days, she should have a biventricular pacemaker and a defibrillator placed. She has already had a normal catheterization r ecently. DALTON/UNA Voice ID: [id number] Report ID: [id number]
--- NOTE | 2021-12-03 08:37 | P.PN ---
Subjective Date of Service: 12/03/21 Chief Complaint: SHORT OF BREATH Subjective: Improving SHE HAS IMPROVED WELL. MEDS ARE WORKING. Review of Systems 10-point ROS is otherwise unremarkable General: Weakness Physical Examination - Vital Signs Temperature: 96.6 F Blood Pressure: 124/77 Pulse: 82 Respirations: 16 Pulse Ox (%): 98 - Physical Exam General: Oriented x3, Mild distress, Obese HEENT: Atraumatic, PERRLA, EOMI Neck: Supple, JVD not distended Respiratory: Clear to auscultation bilaterally, Normal air movement Cardiovascular: Regular rate/rhythm, Normal S1 S2 Gastrointestinal: Normal bowel sounds, No tenderness Musculoskeletal: No tenderness Integumentary: No rashes Neurological: Normal speech, Normal tone, Normal affect Lymphatics: No axilla or inguinal lymphadenopathy - Studies Medications List Reviewed: Yes Assessment And Plan - Current Problems (Diagnosis) (1) Acute systolic heart failure Current Visit: Yes Status: Acute Plan: SHE HAS NEW DIAGNOSIS OF CHF. SHE HAS HAD CAD WITH STENTS IN THE PAST. CONTINUE LASIX BID. SPIRONOLACTON DAILY ADD ENTRESTO STOP LOSARTAN. STOP METPROLOL STAR CARVEDILOL CONTINUE ELIQUIS. PROGNOSIS IS POOR WITH EF OF15%. PATIENT AND FAMILY ARE AWARE. STABLE K IS LOW. CONT MEDS. (2) A-fib Onset Date: 05/30/18 Current Visit: No Status: Acute Qualifiers: (3) HTN (hypertension) Onset Date: 05/28/18 Current Visit: No Status: Chronic
[2021-12-03] MEDS ORDERED: LOSARTAN POTASSIUM 50 MG TABLET PO SCH (09:00)
[2021-12-03] MEDS ORDERED: PNEUMOCOCCAL VACCINE 0.5 ML IMVAC ONE (09:00)
[2021-12-03] MEDS ORDERED: INFLUENZA VACCINE (for 6+ mo) 0.5 ML DOSE IMVAC ONE (09:00)
[2021-12-03] MEDS: SACUBITRIL/VALSARTAN 24/26 MG TAB PO SCH ×2 (10:00→21:03)
[2021-12-03] MEDS: carvediloL 6.25 MG TAB PO SCH ×2 (10:00→21:01)
[2021-12-03] MEDS: GABAPENTIN 300 MG CAP PO SCH ×2 (10:00→21:03)
[2021-12-03] MEDS: APIXABAN 5 MG TABLET PO SCH ×2 (10:00→21:03)
[2021-12-03] MEDS: SPIRONOLACTONE 25 MG TABLET PO SCH (10:00)
[2021-12-03] MEDS: POTASSIUM CL SA 10 MEQ TAB PO SCH (10:00)
[2021-12-03] MEDS: PANTOPRAZOLE 40 MG INJ IVP SCH (10:00)
[2021-12-03] MEDS: FUROSEMIDE 20 MG/ 2ML VIAL IV SCH ×2 (10:26→16:03)
--- NOTE | 2021-12-03 10:35 | RAD REPORT ---
EXAM DESCRIPTION: RAD - Chest Single View - 12/03/2021 7:10 am CLINICAL HISTORY: Chest Pain Chest pain. COMPARISON: Chest Single View dated 12/02/2021; Chest Pa And Lat (2 Views) dated 12/23/2020; Chest Sing le View dated 12/08/2020; Chest Single View dated 06/13/2018 FINDINGS: Portable technique limits examination quality. Mild pulmonary edema is seen. The heart is moderately enlarged in size. No displaced fractures. IMPRESSION: Mild CHF.
[2021-12-03] MEDS: ATORVASTATIN 10 MG TAB PO SCH (21:03)
[2021-12-04 06:24] LABS: Absolute Lymphocytes (CBC) 1.4 K/uL (0.7-4.9); Lymphocytes % 29.1 % (15.3-44.8); MPV 8.3 fL (7.6-11.3); RBC Red Blood Cell Count 4.27 M/uL (3.86-4.86)
[2021-12-04 06:38] LABS: Magnesium 1.9 mg/dL (1.8-2.4); Potassium 3.6 mmol/L (3.5-5.1)
[2021-12-04] MEDS: POTASSIUM CL SA 10 MEQ TAB PO SCH (08:52)
[2021-12-04] MEDS: SACUBITRIL/VALSARTAN 24/26 MG TAB PO SCH ×2 (08:53→20:50)
[2021-12-04] MEDS: SPIRONOLACTONE 25 MG TABLET PO SCH (08:53)
[2021-12-04] MEDS: GABAPENTIN 300 MG CAP PO SCH ×2 (08:53→20:49)
[2021-12-04] MEDS: carvediloL 6.25 MG TAB PO SCH ×2 (08:53→20:50)
[2021-12-04] MEDS: APIXABAN 5 MG TABLET PO SCH ×2 (08:53→20:49)
[2021-12-04] MEDS: PANTOPRAZOLE 40 MG INJ IVP SCH (08:54)
[2021-12-04] MEDS: FUROSEMIDE 20 MG/ 2ML VIAL IV SCH ×2 (08:54→16:09)
--- NOTE | 2021-12-04 19:54 | P.PN ---
Subjective Date of Service: 12/04/21 Chief Complaint: SHORT OF BREATH Subjective: Improving SHE HAS IMPROVED WELL. MEDS ARE WORKING. Physical Examination - Vital Signs Temperature: 97 F Blood Pressure: 101/66 Pulse: 90 Respirations: 18 Pulse Ox (%): 98 - Physical Exam General: Alert, In no apparent distress, Obese HEENT: Atraumatic, PERRLA, EOMI Neck: Supple, JVD not distended Respiratory: Clear to auscultation bilaterally, Normal air movement Cardiovascular: Regular rate/rhythm, Normal S1 S2 Gastrointestinal: Normal bowel sounds, No tenderness Musculoskeletal: No tenderness Integumentary: No rashes Neurological: Normal speech, Normal tone, Normal affect Lymphatics: No axilla or inguinal lymphadenopathy - Studies Medications List Reviewed: Yes Assessment And Plan - Current Problems (Diagnosis) (1) Acute systolic heart failure Current Visit: Yes Status: Acute Plan: SHE HAS NEW DIAGNOSIS OF CHF. SHE HAS HAD CAD WITH STENTS IN THE PAST. CONTINUE LASIX BID. SPIRONOLACTON DAILY ADD ENTRESTO STOP LOSARTAN. STOP METPROLOL STAR CARVEDILOL CONTINUE ELIQUIS. PROGNOSIS IS POOR WITH EF OF15%. PATIENT AND FAMILY ARE AWARE. STABLE K IS LOW. CONT MEDS. NEW MEDS ARE HELPING. DC IN AM. PROGNOSIS POOR. (2) A-fib Onset Date: 05/30/18 Current Visit: No Status: Acute Qualifiers: (3) HTN (hypertension) Onset Date: 05/28/18 Current Visit: No Status: Chronic (4) Uterine cancer Current Visit: Yes Status: Chronic Plan: I AHVE ASKED THEM TO GET ME DR THOMAS'S NUMBER. SHE WAS TOLD KELSEY IS CANCER IN ABDOMEN. THIS MEANS STAGE 4 UTERINE CANCER BUT PATIENT IS IN DENIAL ABOUT IT SHE SAYS SHE WAS TOLD THAT IS NOTHING TO WORRY ABOUT.
[2021-12-04] MEDS: ATORVASTATIN 10 MG TAB PO SCH (20:49)
[2021-12-05 03:53] LABS: Absolute Lymphocytes (CBC) 1.6 K/uL (0.7-4.9); Hematocrit 39.1 % (36.0-45.0); Lymphocytes % 31.8 % (15.3-44.8); MPV 8.4 fL (7.6-11.3); RBC Red Blood Cell Count 4.55 M/uL (3.86-4.86)
[2021-12-05 04:13] LABS: Potassium 3.6 mmol/L (3.5-5.1)
[2021-12-05] MEDS: APIXABAN 5 MG TABLET PO SCH (08:16)
[2021-12-05] MEDS: SPIRONOLACTONE 25 MG TABLET PO SCH (08:16)
[2021-12-05] MEDS: POTASSIUM CL SA 10 MEQ TAB PO SCH (08:16)
[2021-12-05] MEDS: SACUBITRIL/VALSARTAN 24/26 MG TAB PO SCH (08:16)
[2021-12-05] MEDS: GABAPENTIN 300 MG CAP PO SCH (08:18)
[2021-12-05] MEDS: carvediloL 6.25 MG TAB PO SCH (08:18)
[2021-12-05 08:19] VITALS: BP 120/79; TEMP 97.4
[2021-12-05] MEDS: PANTOPRAZOLE 40 MG INJ IVP SCH (08:19)
[2021-12-05] MEDS: FUROSEMIDE 20 MG/ 2ML VIAL IV SCH (08:19)
[2021-12-05 09:28] VITALS: O2SAT 93
--- NOTE | 2021-12-05 17:54 | P.DS ---
Admission Date: 12/02/21 Discharge Date: 12/05/21 Disposition: ROUTINE DISCHARGE Discharge Condition: FAIR Reason for Admission: SHORT OF BREATH - Problems (1) Acute systolic heart failure Status: Acute (2) A-fib Onset Date: 05/30/18 Status: Acute Qualifiers: (3) HTN (hypertension) Onset Date: 05/28/18 Status: Chronic (4) Uterine cancer Status: Chronic Brief History of Present Illness: MS. BURNS IS A PATIENT WITH HISTORY OF UTERINE CANCER WHO HAD CT SCAN DONE AT [facility] FOUND TO HAVE LYMPH NODE ENLARGEMENT IN UPPER ABDOMEN THAT PER PATIENT WAS POSITIVE TO BE CANCER. WE HAVE NO REPORTS FROM [place] TO CONFIRM. SHE HAD CATH OVER THERE AND WAS FOUND TO BE IN A FIB. THEY DID NOT START HER ON ANTICOAGULATION BUT ASKED HER TO GET STARTED. SHE COMES HERE WITH DYSPNEA, HAS A FIB, CHF AND DR. HUI DID ECHO JUST TODAY TO FIND HER EF DOWN TO 15%. THIS IS ALL NEW FOR HER. Hospital Course: MS BURNS CAME OUT OF [facility] AFTER BIOPSY BUT ENDS UP HERE WITH DYSPNEA. SHE HAD CATH DONE IN [facility] WAS TOLD THAT SHE HAS A FIBTHAT WAS NEW BUT NOT PUT ON ELIQUIS OR ANY OTHER MEDS. WE FIND THAT HER EF IS 15%. HAVING SEVERE SYTOLIC HEART FAILURE WE PUT HE NANI ELIQUIS, ENTRESTRO, SPIRONOLACTONE AND IV LASIX. I STOPPED LOSARTAN AND PLAVIX. SHE DID GREAT AND WAS ABLE TO GO HOME TODAY. HER PROGNOSIS IS POOR. SHE HAS RECURRENCE OF CANCER IN ABDOMEN. THIS IS NOT GOOD NEWS BUT SHE WAS TOLD IN [facility] NOT TO WORRY ABOUT. Vital Signs/Physical Exam: Temp Pulse Resp BP Pulse Ox 97.4 F 77 19 120/79 98 12/05/21 08:00 12/05/21 08:19 12/05/21 08:00 12/05/21 08:19 12/05/21 08:00 Laboratory Data at Discharge: WBC 4.90 K/uL (4.3-10.9) 12/05/21 03:18 Hgb 12.8 g/dL (12.0-15.0) 12/05/21 03:18 Hct 39.1 % (36.0-45.0) 12/05/21 03:18 Plt Count 171 K/uL (152-406) 12/05/21 03:18 PT 12.8 SECONDS (9.5-12.5) H 12/02/21 03:11 INR 1.16 12/02/21 03:11 Sodium 138 mmol/L (136-145) 12/05/21 03:18 Potassium 3.6 mmol/L (3.5-5.1) 12/05/21 03:18 BUN 24 mg/dL (7-18) H 12/05/21 03:18 Creatinine 1.19 mg/dL (0.55-1.3) 12/05/21 03:18 Glucose 121 mg/dL (74-106) H 12/05/21 03:18 Magnesium 1.9 mg/dL (1.8-2.4) D 12/04/21 05:59 Total Bilirubin 1.3 mg/dL (0.2-1.0) H 12/02/21 03:11 AST 105 U/L (15-37) H 12/02/21 03:11 ALT 122 U/L (12-78) H 12/02/21 03:11 Alkaline Phosphatase 171 U/L (45-117) H 12/02/21 03:11 Home Medications: Gabapentin 300 mg PO Q12HR 12/08/20 Ergocalciferol (Vitamin D2) [Vitamin D2] 50,000 unit PO SEECOM 12/23/20 Pravastatin Sodium 20 mg PO BEDTIME 12/23/20 Smz./Tmp. [Bactrim Ds 800 MG/160 MG*] 1 tab PO BID #20 tab 12/26/20 Metoprolol Tartrate [Lopressor*] 25 mg PO BID 12/02/21 Apixaban [Eliquis] 5 mg PO BID #60 tablet 12/05/21 Furosemide 20 mg PO DAILY #90 tablet 12/05/21 Sacubitril/Valsartan [Entresto 24 mg-26 mg Tablet] 1 tab PO BID #60 tab 12/05/21 Spironolactone [Aldactone] 50 mg PO DAILY #90 tablet 12/05/21 New Medications: Spironolactone [Aldactone] 50 mg PO DAILY #90 tablet Apixaban [Eliquis] 5 mg PO BID #60 tablet Sacubitril/Valsartan [Entresto 24 mg-26 mg Tablet] 1 tab PO BID #60 tab Furosemide 20 mg PO DAILY #90 tablet Physician Discharge Instructions: PROBLEM: CHF Exacerbation GOAL: Clear understanding of disease process INSTRUCTIONS: Ok to discharge home Follow up with Dr. Chavez in 1-2 weeks Take new medications as prescribed Contact physician or return to ER for any complications or concerns Call [phone] for any questions regarding hospital stay Diet: As tolerated Activity: As tolerated E-script sent to [facility] in [place] IMMUNIZATION Influenza Vaccine Indicated: Yes Influenza Vaccine Given: No Date Given: Pneumonia Vaccine Indicated: Yes Pneumonia Vaccine Given: No Date Given: Followup: Mateo Chavez MD [Primary Care Provider] -
[2021-12-07] MEDS ORDERED: DRISDOL (VITAMIN D=ERGOCALCIFEROL) 50000 UNIT CAP PO SCH (09:00)
== END 2021-12-05 09:45 | disposition home or self-care (01) | DRG 291 ==
LOC: ER 23:36 → ERHOLD 12-02 05:20 → 2ND 12-02 17:13
PROVIDERS: ADMIT Internal Medicine; ATTEND Internal Medicine
DX: I11.0 Hypertensive heart disease with heart failure (principal); I50.21 Acute systolic (congestive) heart failure; C79.89 Secondary malignant neoplasm of other specified sites; I25.10 Atherosclerotic heart disease of native coronary artery without angina pectoris; Z95.5 Presence of coronary angioplasty implant and graft; I48.91 Unspecified atrial fibrillation; Z86.73 Personal history of transient ischemic attack (TIA), and cerebral infarction without residual deficits; C55 Malignant neoplasm of uterus, part unspecified; Z20.822 Contact with and (suspected) exposure to COVID-19
CPT/HCPCS: 0240U; 36415; 71045; 71275; 80048; 80076; 83735; 83880; 84484; 85025; 85610; 93005; 93306; 96374; 99285; C9113; J1940; Q9967

== ENCOUNTER 2021-12-08 19:30 | Emergency (ER) | payer OTHER ==
--- OUTSIDE RECORDS SUMMARY | 2021-12-08 19:35 | XMS REPORT | Clinical Summary ---
:1950 Author Organization [facility] MD [facility] Address [address] [place] [address] Care Team Providers Name Role Phone Deonna Leiva MD Primary Care Provider Yarely "Hattie" Unavailable Malena Chavez MD Unavailable Allergies Active Allergy Reactions Severity Noted Date Comments Codeine GI Intolerance Medium 11/08/2016 Nausea and vo miting sometime. Fruit Punch Flavor Hives, Itching High 11/21/2016 Allergy to most Fruits with seeds, strawber xiomy, etc..... Morphine GI Intolerance Medium 11/24/2016 Nausea and vo miting sometime. Naloxone GI Intolerance 11/24/2016 Opium GI Intolerance 11/24/2016 Medications Medication Sig Dispensed Refills Start Date End Date Status acetaminophen Take 650 mg 0 Acti ve (TYLENOL) 325 mg by mouth tablet every 6 (six) hours as needed for mild pain. pravastatin Take 1 tablet 0 03/06/2021 Act ines (PRAVACHOL) 20 mg by mouth tablet daily. ondansetron Take 1 tablet 0 07/29/2021 Act ines (ZOFRAN) 4 mg by mouth as tablet needed. levothyroxine Take 1 tablet 0 07/08/2021 A ctive (SYNTHROID, by mouth LEVOTHROID) 25 mcg daily. tablet famotidine (PEPCID) Take 1 tablet 0 07/08/2021 Active 20 mg tablet by mouth daily. metoprolol tartrate Take 1 tablet 60 tablet 3 11/16/2021 Active (LOPRESSOR) 25 mg (25 mg) by tabletIndications: mouth twice Cardiomegaly, daily. Coronary artery disease due to calcified coronary lesion Eliquis 5 mg tablet Take 1 tablet 0 12/05/2021 Active by mouth twice daily. Entresto 24-26 mg Take 1 tablet 0 12/05/2021 Active tab per tablet by mouth twice daily. furosemide (LASIX) Take 1 tablet 0 12/05/2021 Active 20 mg tablet by mouth twice daily. spironolactone Take 1 tablet 0 12/05/2021 Active (ALDACTONE) 50 mg by mouth tablet daily. aspirin 81 mg EC Take 81 mg [...] 37.5 every mg-25 mg per tablet morning. losartan (COZAAR) 0 08/21/2020 D iscontinued 50 mg tablet 2 (Therap y completed) clopidogrel Take 1 tablet 0 03/05/2021 Dis continued (PLAVIX) 75 mg by mouth 2 (Ther apy tablet daily. completed) spironolactone Take 1 tablet 0 03/05/2021 Discontinued (ALDACTONE) 25 mg by mouth 2 (D ose tablet daily. adjustment ) sulfamethoxazole-tr Take 1 tablet 0 12/26/202011/16 Discontinued imethoprim (BACTRIM by mouth 2 DS) 800 mg-160 mg daily. per tablet traMADol (ULTRAM) Take 1 tablet 0 03/14/2021 02 Discontinued 50 mg tablet by mouth as 2 (Ther apy needed. completed) ergocalciferol 50,000 Units 0 12/23/2020 D iscontinued (DRISDOL) 50,000 every 30 2 units capsule (thirty) days. TURMERIC ORAL Take 1 tablet 0 Di scontinued by mouth 2 (Therapy daily. 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 Christian Auguste PA 12/02/2021 Telephone Gynecology Dorinda Vasquez RN 11/28/2021 Hospital Encounter Cardiology Angel Nash Cardio megaly (Primary Dx); Coronary artery disease due to calcified coronary lesion; Essential (prim vinod) hypertension; Morbid (severe) obesity due to excess calories 11/28/2021 Hospital Encounter Lab Star Treviño Cardio megaly; Coronary artery disease due to calcified coronary lesion; Essential (prim vinod) hypertension; Morbid (severe) obesity due to excess calories 11/28/2021 Travel 11/21/2021 Anesthesia Event Anesthesiology Brooke Sanchez MA 11/21/2021 Hospital Encounter Cardiology Angel Nash Cardio megaly MD 11/21/2021 Telephone Cardiology Carlos Bradley RN 11/21/2021 Documentation Cardiology Carlos Bradley RN 11/21/2021 Orders Only Cardiology Angel Nash Cardiomegaly MD (Primary Dx) 11/21/2021 Travel 11/18/2021 Consult Internal Medicine Deonna Leiva er for other preprocedural examination (Primary Dx); MD Viraj Essential (primary) hypertension; Susan Baird Personal his tory of transient ischemic attack; MD Mayra Hypothyroidism, not otherwise specified; Atrial fibrilla tion, not otherwise specified; Morbid (severe) obesity due to excess calories; Coronary artery disease due to calcified coronary lesion; Neoplasm, malig nant of endometrium 11/18/2021 Telemedicine Gynecology Christian Auguste Neoplasm, ma lignant of endometrium (Primary Dx); BETO Metastatic canc er to the peritoneum; Morbid (severe) obesity due to excess calories; Cardiomegaly; Coronary artery disease due to calcified coronary lesion; Essential (prim vinod) hypertension 11/18/2021 POEM Appointments Anesthesiology Deonna Leiva o p rajesh Cali MD (Primary Dx) 11/18/2021 Clinical Support Deonna Glez d COVID-19 (Primary Dx); MD Viraj Neoplasm, [...] Nash, Preoperative cardiovascular examination (Primary Dx); Neoplasm, lee nant of endometrium; Metastatic canc er to the peritoneum; Cardiomegaly; Coronary artery disease due to calcified coronary lesion; Essential (prim vinod) hypertension 11/16/2021 Hospital Encounter Cardiology Gela Maguire PA 11/16/2021 Documentation Cardiology Carlos Bradley RN 11/16/2021 Orders Only Cardiology Angel Nash MD 11/16/2021 Travel 11/04/2021 Telemedicine Gynecology Deonna Leiva, ma lignant of endometrium (Primary Dx); MD Viraj Metastatic canc er to the peritoneum; Cardiomegaly; Coronary artery disease due to calcified coronary lesion; Essential (prim vinod) hypertension 11/04/2021 Ancillary Procedure Radiology Christian Auguste Mammo graphrubén PA abnormal 11/04/2021 Ancillary Procedure Radiology Christian Auguste Mammo graphrubén PA abnormal 11/04/2021 Prep for Surgery Gynecology Deonna Leiva Neoplasm , malignant of endometrium (Primary Dx); MD Viraj Metastatic canc er to the peritoneum; Morbid (severe) obesity due to excess calories; Cardiomegaly; Coronary artery disease due to calcified coronary lesion; Essential (prim vinod) hypertension 11/04/2021 Telephone Gynecology Deonna Leiva MD 11/04/2021 Travel 11/03/2021 Multidisciplinary Visit Gynecology Deonna Leiva N eoplasm, malignant of endometrium; MD Viraj Metastatic canc er to the peritoneum 11/03/2021 Travel 11/01/2021 Orders Only Gynecology Christian Auguste PA 10/28/2021 Ancillary Procedure Radiology Deonna Leiva [...] ry Dx) 10/28/2021 Orders Only Gynecology Deonna Leiva, ma lignant of endometrium (Primary Dx); MD Viraj Metastatic [facility] er to the peritoneum 10/26/2021 Hospital Encounter Dar Rosenberg MD Fleming, Nicole D., MD 10/25/2021 Anesthesia Event Radiology Herberth Mera MD 10/25/2021 Hospital Encounter Radiology Deonna Leiva Neopla sm, malignant of endometrium; MD Viraj 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 Fermin Hoffman MD Bergbauer, Marion, CRNA Arnold, Benjamin A., MD 10/25/2021 Travel 10/24/2021 Anesthesia Event Anesthesiology Roxi Gaytan, COREY 10/24/2021 Hospital Encounter Deonna Mathur Metast miki betsy Cali MD to the peritoneum Genaro Mcclelland T, (Primary Dx) PA 10/24/2021 Clinical Support Deonna Glez MD observation for Cindy Núñez other suspecte naheed Damico MA exposure to biological agen t ruled out (Prim vinod Dx) 10/24/2021 POEM Appointments Anesthesiology Deonna Leiva MD 10/24/2021 Orders Only Radiology Genaro Mcclelland, BETO 10/24/2021 Travel 10/18/2021 Orders Only Radiology Gela Maguire PA 10/18/2021 Telephone Radiology Sabra Perez MA 10/14/2021 Telemedicine Gynecology Deonna Leiva Neoplasm, ma lignant [...] nicole gnant neoplasm of endometrium 03/23/2021 Travel after 12/08/2020 Immunizations Name Administration Dates Next Due Pfizer SARS-CoV-2 Vaccination 05/14/2021, 04/25/2021 Surgical History Surgery Date Site/Laterality Comments SECTION, CLASSIC 01/17/1981 ID LAPAROSCOPY TOT 11/28/2016 N/A Procedure: RO BOTIC HYSTERECTOMY UTERUS >250 ASSISTE D TOTAL GRAM W TUBE/OVARY HYSTERECTOMY, MINI LAPAROTOMY, CYST OSCOPY; Surgeon: Deonna Leiva MD; Lo cation: MAIN OR; Servic e: [facility] - GYNECOLOGIC ONCO LOGY ID REMOVAL OF OVARY/TUBE(S) 11/28/2016 Bilateral Proc edure: ROBOTIC ASSISTED SALPINGO-OOPHORE CTOMY; Surgeon: Deonna Leiva MD; Lo cation: MAIN OR; Servic e: [facility] - GYNECOLOGIC ONCO LOGY ID REMOVAL, PELVIC LYMPH 11/28/2016 Abdomen/Bilateral Proce dure: BILATERAL NODES,STAGING PELVIC BIOPSIES AND OMENTAL BIOPSY; Surgeon: Deonna ureña MD; Location: MAIN O R; Service: [facility] - GYNECOLOGIC ONCO LOGY ID INTRAOPERATIVE SENTINEL 11/28/2016 Bilateral Proce dure: INTRAOPERATIVE LYMPH NODE ID W DYE LYMPHATIC MA PPING; INJECTION Surgeon: Deonna Leiva MD; Lo cation: MAIN OR; Servic e: [facility] - GYNECOLOGIC ONCO LOGY CHOLECYSTECTOMY 05/25/2018 - [...] with No / Unsure 11/28/2021 8:00 AM LINOTYPE MACHINIST APPRENTICE someone who was confirmed or suspected to [...] pt aware to danii e home PM LINOTYPE MACHINIST APPRENTICE medication for b lood pressure. Pulse 86 11/28/2021 2:15 PM LINOTYPE MACHINIST APPRENTICE Temperature 36.3 C (97.3 F) 11/28/2021 2:15 PM LINOTYPE MACHINIST APPRENTICE Respiratory Rate 18 11/28/2021 2:15 PM LINOTYPE MACHINIST APPRENTICE Oxygen Saturation 97% 11/28/2021 2:15 PM LINOTYPE MACHINIST APPRENTICE Inhaled Oxygen - - Concentration Weight 102.1 kg (225 lb) 11/28/2021 9:18 AM LINOTYPE MACHINIST APPRENTICE Height - - Body Mass Index 39.13 04/27/2017 9:51 AM CDT Plan of Treatment Date Type Specialty Care Team Description 12/21/2021 Follow-Up Cardiology Angel Nash MD [address], [place] [address] (Wo rk) 04/03/2023 Office Visit Colorectal Surgery Marimar Doshi MD [address], [place] [address] (Wo rk) Health Maintenance Due Date Last Done Comments COVID-19 Vaccination (3 - Inadvertent risk 06/11/202105/14, 04/25/2021 4-dose series) Procedures Procedure Name Priority Date/Time Associated Comments Diagnosis COMBINED RIGHT AND LEFT Routine 11/28/2021 10:10 Cardiomegaly HEART CATH AM LINOTYPE MACHINIST APPRENTICE POC OXIMETRY VENOUS Routine 11/28/2021 9:44 Resu lts for this AM LINOTYPE MACHINIST APPRENTICE procedure are i n the results section. POC OXIMETRY ARTERIAL Routine 11/28/2021 9:35 Re sults for this AM LINOTYPE MACHINIST APPRENTICE procedure are i n the results section. POC GLUCOSE SCREEN Routine 11/28/2021 8:47 Resul ts for this AM LINOTYPE MACHINIST APPRENTICE procedure are i n the results section. CLOT EXPIRATION DATE Routine 11/28/2021 7:41 Res ults for this AM LINOTYPE MACHINIST APPRENTICE procedure are i n the results section. TMP INTERPRETATION Routine 11/28/2021 7:41 Resul ts for this ANTIBODY SCREEN NEGATIVE AM LINOTYPE MACHINIST APPRENTICE pro cedure are in the results section. ANTIBODY SCREEN Routine 11/28/2021 7:41 Cardiomegaly Results for this AM LINOTYPE MACHINIST APPRENTICE Coronary artery procedure ar e in disease due to the results calcified coronary section. lesion Essential (primary) hypertension Morbid (severe) obesity due to excess calories ABORH Routine 11/28/2021 7:41 Cardiomegaly Results for this AM LINOTYPE MACHINIST APPRENTICE Coronary artery procedure ar e in disease due to the results calcified coronary section. lesion Essential (primary) hypertension Morbid (severe) obesity due to excess calories TYPE AND SCREEN Routine 11/28/2021 7:41 Cardiomegaly AM LINOTYPE MACHINIST APPRENTICE Coronary artery disease due to calcified coronary lesion Essential (primary) hypertension Morbid (severe) obesity due to excess calories ECHOCARDIOGRAM 2D Routine 11/21/2021 7:51 Cardiomegaly Result s for this COMPLETE AM LINOTYPE MACHINIST APPRENTICE procedure are i n the results section. GENERAL LABORATORY ADD Now 11/18/2021 1:50 Pre op labs R esults for this ON TEST PM LINOTYPE MACHINIST APPRENTICE procedure are i n the results section. COVID-19 (SARS-COV-2) Routine 11/18/2021 12:07 Suspected COVID -19 Results for this PCR-ASYMPTOMATIC MC PM LINOTYPE MACHINIST APPRENTICE procedur e are in the results section. URINALYSIS MICROSCOPIC Routine 11/18/2021 11:36 R esults for this AM LINOTYPE MACHINIST APPRENTICE procedure are i n the results section. URINALYSIS WITH Routine 11/18/2021 11:36 Neoplasm, malignant R esults for this MICROSCOPIC IF INDICATED AM LINOTYPE MACHINIST APPRENTICE of endo metrium procedure are in Metastatic cancer the result s to the peritoneu m section. Cardiomegaly Coronary artery disease due to calcified coronary lesion Essential (primary) hypertension URINE CULTURE Routine 11/18/2021 11:36 Neoplasm, malignant Res ults for this AM LINOTYPE MACHINIST APPRENTICE of endometrium procedure are in Metastatic cancer the result s to the peritoneu m section. Cardiomegaly Coronary artery disease due to calcified coronary lesion Essential (primary) hypertension FREE THYROXINE Routine 11/18/2021 11:23 Results f or this AM LINOTYPE MACHINIST APPRENTICE procedure are i n the results section. THYROID STIMULATING Routine 11/18/2021 11:23 Resu lts for this HORMONE AM LINOTYPE MACHINIST APPRENTICE procedure are i n the results section. FRACTIONATED BILIRUBIN Routine 11/18/2021 11:23 Neoplasm, nicole gnant Results for this AM LINOTYPE MACHINIST APPRENTICE of endometrium procedure are in Metastatic cancer the result s to the peritoneu m section. Cardiomegaly Coronary artery disease due to calcified coronary lesion Essential (primary) hypertension TOTAL PROTEIN Routine 11/18/2021 11:23 Neoplasm, malignant Res ults for this AM LINOTYPE MACHINIST APPRENTICE of endometrium procedure are in Metastatic cancer the result s to the peritoneu m section. Cardiomegaly Coronary artery disease due to calcified coronary lesion Essential (primary) hypertension ASPARTATE Routine 11/18/2021 11:23 Neoplasm, malignant Resu lts for this AMINOTRANSFERASE AM LINOTYPE MACHINIST APPRENTICE of endometrium procedure are in Metastatic cancer the result s to the peritoneu m section. Cardiomegaly Coronary artery disease due to calcified coronary lesion Essential (primary) hypertension ALANINE AMINOTRANSFERASE Routine 11/18/2021 11:23 Neoplasm, ma lignant Results for this AM LINOTYPE MACHINIST APPRENTICE of endometrium procedure are in Metastatic cancer the result s to the peritoneu m section. Cardiomegaly Coronary artery disease due to calcified coronary lesion Essential (primary) hypertension ALKALINE PHOSPHATASE Routine 11/18/2021 11:23 Neoplasm, malign ant Results for this AM LINOTYPE MACHINIST APPRENTICE of endometrium procedure are in Metastatic cancer the result s to the peritoneu m section. Cardiomegaly Coronary artery disease due to calcified coronary lesion Essential (primary) hypertension ALBUMIN LEVEL Routine 11/18/2021 11:23 Neoplasm, malignant Res ults for this AM LINOTYPE MACHINIST APPRENTICE of endometrium procedure are in Metastatic cancer the result s to the peritoneu m section. Cardiomegaly Coronary artery disease due to calcified coronary lesion Essential (primary) hypertension CALCIUM LEVEL TOTAL Routine 11/18/2021 11:23 Neoplasm, maligna nt Results for this AM LINOTYPE MACHINIST APPRENTICE of endometrium procedure are in Metastatic cancer the result s to the peritoneu m section. Cardiomegaly Coronary artery disease due to calcified coronary lesion Essential (primary) hypertension .GLOMERULAR FILTRATION Routine 11/18/2021 11:23 Neoplasm, nicole gnant Results for this RATE AM LINOTYPE MACHINIST APPRENTICE of endometrium procedure are in Metastatic cancer the result s to the peritoneu m section. Cardiomegaly Coronary artery disease due to calcified coronary lesion Essential (primary) hypertension SERUM CREATININE Routine 11/18/2021 11:23 Neoplasm, malignant Results for this AM LINOTYPE MACHINIST APPRENTICE of endometrium procedure are in Metastatic cancer the result s to the peritoneu m section. Cardiomegaly Coronary artery disease due to calcified coronary lesion Essential (primary) hypertension ELECTROLYTE PANEL Routine 11/18/2021 11:23 Neoplasm, malignant Results for this AM LINOTYPE MACHINIST APPRENTICE of endometrium procedure are in Metastatic cancer the result s to the peritoneu m section. Cardiomegaly Coronary artery disease due to calcified coronary lesion Essential (primary) hypertension BLOOD UREA NITROGEN Routine 11/18/2021 11:23 Neoplasm, maligna nt Results for this AM LINOTYPE MACHINIST APPRENTICE of endometrium procedure are in Metastatic cancer the result s to the peritoneu m section. Cardiomegaly Coronary artery disease due to calcified coronary lesion Essential (primary) hypertension GLUCOSE LEVEL Routine 11/18/2021 11:23 Neoplasm, malignant Res ults for this AM LINOTYPE MACHINIST APPRENTICE of endometrium procedure are in Metastatic cancer the result s to the peritoneu m section. Cardiomegaly Coronary artery disease due to calcified coronary lesion Essential (primary) hypertension MANUAL DIFFERENTIAL Routine 11/18/2021 11:23 Neoplasm, maligna nt Results for this AM LINOTYPE MACHINIST APPRENTICE of endometrium procedure are in Metastatic cancer the result s to the peritoneu m section. Cardiomegaly Coronary artery disease due to calcified coronary lesion Essential (primary) hypertension Results CBC Routine 11/18/2021 11:23 Neoplasm, malignant Resu lts for this AM LINOTYPE MACHINIST APPRENTICE of endometrium procedure are in Metastatic cancer the result s to the peritoneu m section. Cardiomegaly Coronary artery disease due to calcified coronary lesion Essential (primary) hypertension APTT Routine 11/18/2021 11:23 Neoplasm, malignant Resu lts for this AM LINOTYPE MACHINIST APPRENTICE of endometrium procedure are in Metastatic cancer the result s to the peritoneu m section. Cardiomegaly Coronary artery disease due to calcified coronary lesion Essential (primary) hypertension PROTHROMBIN TIME Routine 11/18/2021 11:23 Neoplasm, malignant Results for this AM LINOTYPE MACHINIST APPRENTICE of endometrium procedure are in Metastatic cancer the result s to the peritoneu m section. Cardiomegaly Coronary artery disease due to calcified coronary lesion Essential (primary) hypertension COMPREHENSIVE METABOLIC Routine 11/18/2021 11:23 Neoplasm, mal ignant PANEL AM LINOTYPE MACHINIST APPRENTICE of endometrium Metastatic cancer to the peritoneu m Cardiomegaly Coronary artery disease due to calcified coronary lesion Essential (primary) hypertension COMPLETE BLOOD COUNT W/ Routine 11/18/2021 11:23 Neoplasm, mal ignant DIFFERENTIAL AM LINOTYPE MACHINIST APPRENTICE of endometrium Metastatic cancer to the peritoneu m Cardiomegaly Coronary artery disease due to calcified coronary lesion Essential (primary) hypertension CANCER ANTIGEN 125 Routine 11/18/2021 11:23 Neoplasm, malignan t Results for this AM LINOTYPE MACHINIST APPRENTICE of endometrium procedure are in Metastatic cancer the result s to the peritoneu m section. Cardiomegaly Coronary artery disease due to calcified coronary lesion Essential (primary) hypertension CLOT EXPIRATION DATE Routine 11/18/2021 11:15 Res ults for this AM LINOTYPE MACHINIST APPRENTICE procedure are i n the results section. TMP INTERPRETATION Routine 11/18/2021 11:15 Resul ts for this ANTIBODY SCREEN NEGATIVE AM LINOTYPE MACHINIST APPRENTICE pro cedure are in the results section. ANTIBODY SCREEN Routine 11/18/2021 11:15 Neoplasm, malignant R esults for this AM LINOTYPE MACHINIST APPRENTICE of endometrium procedure are in Metastatic cancer the result s to the peritoneu m section. Cardiomegaly Coronary artery disease due to calcified coronary lesion Essential (primary) hypertension ABORH Routine 11/18/2021 11:15 Neoplasm, malignant Resu lts for this AM LINOTYPE MACHINIST APPRENTICE of endometrium procedure are in Metastatic cancer the result s to the peritoneu m section. Cardiomegaly Coronary artery disease due to calcified coronary lesion Essential (primary) hypertension HEMOGLOBIN A1C Routine 11/18/2021 11:15 Neoplasm, malignant Re sults for this AM LINOTYPE MACHINIST APPRENTICE of endometrium procedure are in Metastatic cancer the result s to the peritoneu m section. Cardiomegaly Coronary artery disease due to calcified coronary lesion Essential (primary) hypertension TYPE AND SCREEN Routine 11/18/2021 11:15 Neoplasm, malignant AM LINOTYPE MACHINIST APPRENTICE of endometrium Metastatic cancer to the peritoneu m Cardiomegaly Coronary artery disease due to calcified coronary lesion Essential (primary) hypertension EKG, 12-LEAD (SCHEDULED) Routine 11/16/2021 US CHEST Routine 11/04/2021 1:27 Mammography Results for this PM LINOTYPE MACHINIST APPRENTICE abnormal procedure are i n the results section. US BREAST COMPLETE Routine 11/04/2021 1:27 Mammography Resul ts for this BILATERAL PM LINOTYPE MACHINIST APPRENTICE abnormal procedure are i n the results section. MAMMO DIGITAL DIAGNOSTIC Routine 11/04/2021 12:27 Mammography Results for this BILATERAL W ABDELRAHMAN PM LINOTYPE MACHINIST APPRENTICE abnormal procedure a re in the results section. HUSSEIN VUONG MICROSATELLITE Routine 10/26/2021 7:03 INSTABILITY (MSI) PM LINOTYPE MACHINIST APPRENTICE ANALYSIS INTERPRETATION AND REPORT IR CT GUIDED BIOPSY Routine 10/25/2021 1:03 Neoplasm, maligna nt Results for this PELVIC NON-BONE PM LINOTYPE MACHINIST APPRENTICE of endometrium procedure are in Metastatic cancer the result s to the peritoneum section. CYTOLOGY IMAGE-GUIDED Routine 10/25/2021 12:08 Neoplasm, malig nant Results for this FNA INTERPRETATION PM LINOTYPE MACHINIST APPRENTICE of endometriu m procedure are in Metastatic cancer the result s to the peritoneum section. PATHOLOGY BIOPSY Routine 10/25/2021 12:07 Neoplasm, malignant Results for this INTERPRETATION PM LINOTYPE MACHINIST APPRENTICE of endometrium procedure are in Metastatic cancer the result s to the peritoneum section. EKG, 12-LEAD (PORTABLE) Routine 10/25/2021 CLOT EXPIRATION DATE Routine 10/24/2021 9:56 Res ults for this AM LINOTYPE MACHINIST APPRENTICE procedure are i n the results section. TMP INTERPRETATION Routine 10/24/2021 9:56 Resul ts for this ANTIBODY SCREEN NEGATIVE AM LINOTYPE MACHINIST APPRENTICE pro cedure are in the results section. ANION GAP Routine 10/24/2021 9:56 Results for this AM LINOTYPE MACHINIST APPRENTICE procedure are i n the results section. ANTIBODY SCREEN Routine 10/24/2021 9:56 Results for this AM LINOTYPE MACHINIST APPRENTICE procedure are i n the results section. ABORH Routine 10/24/2021 9:56 Results for this AM LINOTYPE MACHINIST APPRENTICE procedure are i n the results section. .GLOMERULAR FILTRATION Routine 10/24/2021 9:56 R esults for this RATE AM LINOTYPE MACHINIST APPRENTICE procedure are i n the results section. SERUM CREATININE Routine 10/24/2021 9:56 Results for this AM LINOTYPE MACHINIST APPRENTICE procedure are i n the results section. MANUAL DIFFERENTIAL Routine 10/24/2021 9:56 Resu lts for this AM LINOTYPE MACHINIST APPRENTICE procedure are i n the results section. Results CBC Routine 10/24/2021 9:56 Results for this AM LINOTYPE MACHINIST APPRENTICE procedure are i n the results section. TYPE AND SCREEN Routine 10/24/2021 9:56 AM LINOTYPE MACHINIST APPRENTICE GLUCOSE, RANDOM Routine 10/24/2021 9:56 Results for this AM LINOTYPE MACHINIST APPRENTICE procedure are i n the results section. PROTHROMBIN TIME Routine 10/24/2021 9:56 Results for this AM LINOTYPE MACHINIST APPRENTICE procedure are i n the results section. BLOOD UREA NITROGEN Routine 10/24/2021 9:56 Resu lts for this AM LINOTYPE MACHINIST APPRENTICE procedure are i n the results section. SERUM CREATININE Routine 10/24/2021 9:56 AM LINOTYPE MACHINIST APPRENTICE POTASSIUM LEVEL Routine 10/24/2021 9:56 Results for this AM LINOTYPE MACHINIST APPRENTICE procedure are i n the results section. SODIUM LEVEL Routine 10/24/2021 9:56 Results for this AM LINOTYPE MACHINIST APPRENTICE procedure are i n the results section. CHLORIDE LEVEL Routine 10/24/2021 9:56 Results f or this AM LINOTYPE MACHINIST APPRENTICE procedure are i n the results section. CARBON DIOXIDE LEVEL Routine 10/24/2021 9:56 Res ults for this AM LINOTYPE MACHINIST APPRENTICE procedure are i n the results section. COMPLETE BLOOD COUNT W/ Routine 10/24/2021 9:56 DIFFERENTIAL AM LINOTYPE MACHINIST APPRENTICE COVID-19 (SARS-COV-2) Routine 10/24/2021 9:53 Re sults for this PCR-ASYMPTOMATIC MC AM LINOTYPE MACHINIST APPRENTICE procedur e are in the results section. MCKINLEY VUONG MSI BY PCR Routine 10/16/2021 4:50 Neoplasm, malignant Results for this MATERIAL REQUEST PM LINOTYPE MACHINIST APPRENTICE of endometrium procedure are in Metastatic cancer the result s to the peritoneum section. 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 of endometrium POC CREATININE Routine 10/13/2021 7:55 Results f or this AM LINOTYPE MACHINIST APPRENTICE procedure are i n the results section. OSI MAMMO BILATERAL Routine 10/07/2021 4:29 Cancer Resu lts for this PM LINOTYPE MACHINIST APPRENTICE procedure are i n the results section. OSI BONE DENSITY STUDY Routine 10/07/2021 4:29 Cancer R esults for this PM LINOTYPE MACHINIST APPRENTICE procedure are i n the results section. PATHOLOGY BIOPSY Routine 09/30/2021 1:11 History of Results for this INTERPRETATION PM LINOTYPE MACHINIST APPRENTICE malignant neoplasm procedu re are in of endometrium the results Malignant neoplasm section. of endometrium CANCER ANTIGEN 125 Routine 09/30/2021 11:35 History of Resul ts for this AM LINOTYPE MACHINIST APPRENTICE malignant neoplasm procedure are in of endometrium the results Malignant neoplasm section. of endometrium CANCER ANTIGEN 125 Routine 03/23/2021 10:41 History of Resul ts for this AM CDT malignant neoplasm procedure are in of endometrium the results Malignant neoplasm section. of endometrium OSI CHEST Routine 12/23/2020 4:29 Cancer Results for this PM CDT procedure are i n the results section. after 12/08/2020 Results Combined Right and Left Heart Cath (11/28/2021 10:10 AM LINOTYPE MACHINIST APPRENTICE) Specimen Narrative This result has an attachment that is no t available. (ABNORMAL) POC Oximetry Venous (11/28/2021 9:44 AM LINOTYPE MACHINIST APPRENTICE) POC O2 65.0 % POC TELCOR Saturation,Venous [...] Site R atrium POC TELCOR [facility] Clinical Lab, [address] [place] [address]; Software Licensing Specialist: Arlene Navarro MD Specimen Blood Performing Organization Address [facility] Phon e Number POC TELCOR (ABNORMAL) POC Oximetry Arterial (11/28/2021 9:35 AM LINOTYPE MACHINIST APPRENTICE) [facility] POC O2 Saturation, 100.0 (H) 95.0 - [...] Draw Site Aorta POC TELCOR [facility] TELCOR [facility] Clinical Lab, [address] [place] [address]; Software Licensing Specialist: Arlene Navarro MD Specimen Blood Performing Organization Address [facility]/ZIP [facility] Phon e Number POC TELCOR (ABNORMAL) POC Glucose Screen (11/28/2021 8:47 AM LINOTYPE MACHINIST APPRENTICE) [facility] POC Glucose 102 (H) 70 - 99 [...] Sample Type Capillary POC TELCOR [facility] POC TELCOR [facility] Clinical Lab, [address] [place] [address], [place] [address]; Software Licensing Specialist: Arlene Navarro MD Specimen Blood Performing Organization Address [facility]/ZIP Code Phon e Number POC TELCOR Clot Expiration Date (11/28/2021 7:41 AM LINOTYPE MACHINIST APPRENTICE)Only the most recent of3 results within the time period is included. [facility] nature T & S Expiration 12/01/2021 [facility] CANCER CENTER Specimen Blood Performing Organization Address City/[facility]/ZIP Code Phon e Number [facility] CANCER Unless otherwise noted, [place] [address] CENTER all lab tests performed by: Division of Pathology and Laboratory Medicine [address] [place] [address] TMP Interpretation Antibody Screen Negative (11/28/2021 7:41 AM LINOTYPE MACHINIST APPRENTICE)Only the most recent of3 resultswithin the time period is included. [facility] TMP Auto Neg ABSC At the present time, patien t plasma shows no evidence of RBC alloantibodies. [facility] Interp Comment: CANCER CENTER JESSI NEWMAN MD, PhD - [id number] Dictated by: JESSI NEWMAN MD, PhD - [id number] Dictated Date/Time: 11.29.19 11:46 AM LINOTYPE MACHINIST APPRENTICE Transcribed Date/Time: 11.28.2021 11:46 AM LINOTYPE MACHINIST APPRENTICE Electronically Signed By: MARILEE NEWMAN MD, PhD - [id number] on 11.28.2021 11:46 AM Specimen Blood Performing Organization Address City/State/ZIP Code Phon e Number [facility] CANCER Unless otherwise noted, [address] all lab tests performed by: Division of Pathology and Laboratory Medicine [address] ABORh (11/28/2021 7:41 AM LINOTYPE MACHINIST APPRENTICE)Only the most recent of3 resultswithin the time period is included. Pathologist Sig nature ABORh. O POS [facility] Specimen Blood Performing Organization Address City/State/ZIP Code Phon e Number [facility] Unless otherwise noted, [address] all lab tests performed by: Division of Pathology and Laboratory Medicine [address] [facility] Antibody Screen (11/28/2021 7:41 AM LINOTYPE MACHINIST APPRENTICE)Only the most recent of3 resultswithin the time period is included. Pathologist Sig nature ABSC. Negative ABSC [facility] CENTE R Specimen Blood Performing Organization Address City/[facility]/ZIP Code Phon e Number [facility] Unless otherwise noted, [address] all lab tests performed by: Division of Pathology and Laboratory Medicine [address] [place] [address] Echocardiogram 2D Complete (11/21/2021 7:51 AM LINOTYPE MACHINIST APPRENTICE) Specimen Narrative ISCV - 11/21/2021 10:27 AM LINOTYPE MACHINIST APPRENTICE Echocardiographic Report Interpretation Summary A complete two-dimensional [...] volumes were not performed in this st y. Cardiac Mechanics/Speckle Tracking Imagi ng: Abnormal global [...] volumes were not performed in this st [facility]. Cardiac Mechanics/Speckle Tracking Imagi ng: Abnormal global [...] General Laboratory Add-On Test (11/18/2021 1:50 PM LINOTYPE MACHINIST APPRENTICE) Pathologist Sig nature Ordered Test Added [facility] Test Needed TSH, Free T4 [facility] Specimen Existing Performing Organization Address City/State/ZIP Code Phon e Number [facility] CANCER Unless otherwise noted, [place] [address] [place] all lab tests performed by: Division of Pathology and Laboratory Medicine [address] COVID-19 (SARS-CoV-2) PCR-Asymptomatic MC (11/18/2021 12:07 PM LINOTYPE MACHINIST APPRENTICE)Only the most recent of2 resultswithin the time period is included. COVID19 (SARS Not Detected Not Detected [facility] CoV-2) Result Comment: CANCER [place] This test is a qualitative r everse-transcriptase polymerase chain reaction (RT- PCR) developed for the [employer] BridgeCo0 system and intended for qualitative detection of SARS CoV-2 RNA in nasopharyngeal a nd oropharyngeal swab specimens collected from any individuals, including those suspected of COVID-19 by their healthcare provider, and those without symptoms or other reasons to suspect COVID-19. A fact sheet for patients provided by the construction foreman ( [employer]) can be reviewed at: https://www.fda.gov/media/13 0907/download. A fact sheet for Health Care providers is provided by the construction foreman ([employer]) and can be reviewed at: https://www.fda.gov/media/492072/download Results must be interpreted within the context [...] were verified by the Microbiology Laboratory at [facility], CLIA Accreditation #: [id number] and CAP Accreditation #: [id number]. COVID19 SARS MANAGER STRATEGIC SOURCING Swab [facility] Source [facility] COVID19 SARS Pre-OR Procedure [facility] Indication [facility] Specimen Nasopharyngeal Swab Performing Organization Address City/State/ZIP Code Phon e Number [facility] Unless otherwise noted, [address] all lab tests performed by: Division of Pathology and Laboratory Medicine [address] (ABNORMAL) Urinalysis with Microscopic (11/18/2021 11:36 AM LINOTYPE MACHINIST APPRENTICE) Pathologist Sig nature UA WBC 3 (H) 0 - 2 /HPF [facility] UA RBC <1 0 - 2 /HPF [facility] UA Mucous NOT SEEN Not Seen-Trace /HPF [facility] UA Bacteria NOT SEEN NOT SEEN /HPF [facility] UA Squam Epi OCC None-Occasional [facility] CANCER /[facility] UA Trans Epi OCC (A) NOT SEEN /HPF [facility] Specimen Urine Narrative [facility] - 2 12:41 PM LINOTYPE MACHINIST APPRENTICE Some reporting parameters within the Urinalysis test have changed due to the implementation of new in strumentation in the Main [place], allowi ng greater sensitivity of measurement. Urinalysis results reported by the [facility] using existing instrumentation, as well as Urinalysis t esting performed manually or by backup methodology at the [facility] [place] will remain relatively unchanged. New reporting parameters and units will now be reported for all campuses. Performing Organization Address City/State/[facility] Code Phon e Number [facility] Unless otherwise noted, [address] all lab tests performed by: Division of Pathology and Laboratory Medicine [address] (ABNORMAL) Urinalysis w/Microscopic if Indicated (11/18/2021 11:36 AM LINOTYPE MACHINIST APPRENTICE) Pathologist Sig nature UA Color Yellow Straw-Yellow [facility] UA Appear Clear Clear [facility] UA Glucose NEG NEG mg/dL [facility] UA Bili NEG NEG [facility] UA Ketones NEG NEG mg/dL [facility] UA Spec Grav 1.025 1.003 - 1.035 [facility] UA Blood Small (A) NEG [facility] UA pH 5.0 5.0 - 9.0 [facility] UA Protein 30 (A) NEG mg/dL [facility] UA Urobilinogen NEG NEG [facility] UA Nitrite NEG NEG [facility] UA Leuk Est Trace (A) NEG [facility] Specimen Urine Performing Organization Address City/[facility]/ZIP Code Phon e Number [facility] CANCER Unless otherwise noted, [address] all lab tests performed by: Division of Pathology and Laboratory Medicine [address] [place] [address] Virgie (ABNORMAL) Urine Culture (11/18/2021 11:36 AM LINOTYPE MACHINIST APPRENTICE) Final Report 10 - 50,000 cfu/ml Enterococcus faecalis [facility] ... CANCER CENTER <10,000 cfu/ml Normal site von present. (A) Path Review - The results have been review ed and electronically signed by Pathologist: [facility] Urine CHRISTAL BOURNE MD #[id number] CANCER CENTE R (A) Organism Enterococcus faecalis [facility] () [facility] Specimen Urine, Clean Catch Organism Antibiotic Method Susceptibility Enterococcus faecalis *ROSEMARY expressed in MINIMUM INHIBITORY ROSEMARY: MINT mcg/mL CONCENTRATION Enterococcus faecalis Ampicillin MINIMUM INHIBITORY <=2: Cage sceptible CONCENTRATION Enterococcus faecalis Vancomycin MINIMUM INHIBITORY 1: Susc eptible CONCENTRATION Enterococcus faecalis Nitrofurantoin MINIMUM INHIBITORY <=16: S usceptible [facility] Performing Organization Address City/[facility]/ZIP Code Phon e Number [facility] Unless otherwise noted, [address] all lab tests performed by: Division of Pathology and Laboratory Medicine [address] [place] [address] Virgie (ABNORMAL) .Serum Creatinine (11/18/2021 11:23 AM LINOTYPE MACHINIST APPRENTICE)Only the most recent of2 resultswithin the time period is included. Pathologist Sig nature Creatinine 1.11 (H) 0.51 - 0.95 mg/dL [facility] CENTER Specimen Blood Performing Organization Address City/[facility]/ZIP [facility] Phon e Number [facility] DIAGNOSTIC Unless otherwise noted, [address] all lab tests performed by: Division of Pathology and Laboratory Medicine Anselmo Rawls (ABNORMAL) .CBC (11/18/2021 11:23 AM LINOTYPE MACHINIST APPRENTICE)Only the most recent of2 resultswithin the time period is included. WBC 5.3 4.0 - 11.0 [facility] K/uL DIAGNOSTIC CENTER RBC 4.30 4.00 - 5.50 [facility] M/uL DIAGNOSTIC CENTER Hgb 11.9 (L) 12.0 - 16.0 [facility] gm/dL DIAGNOSTIC CENTER Hct 38.4 37.0 - 47.0 % [facility] DIAGNOSTIC [place] MCV 89 82 - [address] [facility] MCH 27.7 27.0 - 31.0 [facility] pg DIAGNOSTIC CENTER MCHC 31.0 31.0 - 36.0 [facility] gm/dL DIAGNOSTIC CENTER RDW-SD 49.9 (H) 35.1 - 46.3 [facility] DIAGNOSTIC CENTER RDW-CV 15.2 12.0 - 15.5 % [facility] Platelet count 214 140 - 440 [facility] K/uL DIAGNOSTIC CENTER MPV 9.7 4.0 - 10.[address] [facility] INRBC 0.0 <=0.0 % [facility] Comment: DIAGNOSTIC CENTER The INRBC (instrument NRBC) value reflects the enumera tion of nucleated red blood cells contained in a 200uL samp le of whole blood analyzed by the instrument. This value may differ from the NRBC value reported in a manual differ ential, which is based on a 100 cell differential. Specimen Blood Performing Organization Address City/State/[facility] Phon e Number [facility] DIAGNOSTIC Unless otherwise noted, [place] [phone] [place] all lab tests performed by: Division of Pathology and Laboratory Medicine Anselmo Rawls (ABNORMAL) Glomerular Filtration Rate (11/18/2021 11:23 AM LINOTYPE MACHINIST APPRENTICE)Only the most recent of2 resultswithin the time period is included. eGFR-AA 58 (L) >=60 [facility] Comment: mL/min/1.73 DIAGNOSTIC CENTER Normal eGFR: >= 60 mL/min/1.73 m2 sq. m Note: The eGFR is calculated using the CKD-EPI equation. The eGFR declines with age. eGFR <60 mL/min/1.73 m2 is considered as "decreased". This equation should only be used for patients 18 and older. According to the National [facility]'s Kidney Disease Outcome Quality Initiative (KDOQI) classification [...] Kidney failure <15 eGFR-EVELINA 50 (L) >=60 [facility] Comment: mL/min/1.73 DIAGNOSTIC CENTER Normal eGFR: >= [...] failure <15 Specimen Blood Performing Organization Address City/State/ZIP Code Phon e Number [facility] DIAGNOSTIC Unless otherwise noted, [place], [place] [address] CENTER all lab tests performed by: Division of Pathology and Laboratory Medicine [facility] Fractionated Bilirubin (11/18/2021 11:23 AM LINOTYPE MACHINIST APPRENTICE) Bili Total 1.0 <=1.2 mg/dL [facility] Comment: DIAGNOSTIC CENTER Indocyanine Green (ICG) may cause falsely elevated bilirubin results. Total and direct bilirubin must not be measured from samples containing indocyanine green. False elevation of total flora irubin can be seen in patients with IgG concentrations above 28 g/L. Bili Direct 0.3Comment: <=0.3 mg/dL [facility] Indocyanine Green DIAGNOSTIC CENTER (ICG) may cause falsely elevated bilirubin results. Total and direct bilirubin must not be measured from samples containing indocyanine green. Bili Indirect 0.7 0.0 - 0.9 [facility] mg/dL DIAGNOSTIC CENTER Specimen Blood Performing Organization Address City/State/ZIP Code Phon e Number [facility] DIAGNOSTIC Unless otherwise noted, [place], [place] [address] [place] all lab tests performed by: Division of Pathology and Laboratory Medicine [address] [place] [address] aPTT (11/18/2021 11:23 AM LINOTYPE MACHINIST APPRENTICE) Pathologist Sig nature aPTT 35.9 24.7 - 36.8 second(s) [facility] Specimen Blood Narrative [facility] CANCER [place] - 12:18 PM LINOTYPE MACHINIST APPRENTICE This lab cannot be scheduled at the foll owing locations due to collection/proccessing restrictions: [facility] and [facility]. Performing Organization Address City/[facility] Code Phon e Number [facility] CANCER Unless otherwise noted, [place] [address] [place] all lab tests performed by: Division of Pathology and Laboratory Medicine [facility]5 [facility] Differential (11/18/2021 11:23 AM LINOTYPE MACHINIST APPRENTICE)Only the most recent of2 resultswithin the time period is included. Neutrophil % 60.6 42.0 - 66.0 % [facility] DIAGNOSTIC [place] Lymphocyte % 30.4 24.0 - 44.0 % [facility] DIAGNOSTIC [place] Monocyte % 6.2 2.0 - 7.0 % [facility] DIAGNOSTIC [place] Eosinophil % 2.4 1.0 - 4.0 % [facility] DIAGNOSTIC [place] Basophil % 0.2 0.0 - 1.0 % [facility] IGRE % 0.2Comment: IGRE 0.0 - 0.4 % [facility] % count includes DIAGNOSTIC CENTER Metamyelocytes, Myelocytes, and Promyelocytes. Neutrophil Abs 3.23 1.70 - 7.30 [facility] K/uL DIAGNOSTIC CENTER Lymphocyte Abs 1.62 1.00 - 4.80 [facility] K/ DIAGNOSTIC CENTER Monocyte Abs 0.33 0.08 - 0.70 [facility] K/uL DIAGNOSTIC CENTER Eosinophil Abs 0.13 0.04 - 0.40 [facility] K/uL DIAGNOSTIC CENTER Basophil Abs 0.01 0.00 - 0.10 [facility] K/uL DIAGNOSTIC CENTER IG Abs 0.01 0.00 - 0.04 [facility] K/uL DIAGNOSTIC CENTER Specimen Blood Performing Organization Address City/[facility] Phon e Number [facility] DIAGNOSTIC Unless otherwise noted, [place] [phone] [place] all lab tests performed by: Division of Pathology and Laboratory Medicine [address] [place] [address] (ABNORMAL) Prothrombin Time with INR (11/18/2021 11:23 AM LINOTYPE MACHINIST APPRENTICE)Only the most recent of2 resultswithin the time period is included. Pathologist Sig nature PT 14.2 (H) 11.5 - 13.9 [facility](s) CENTER INR 1.17 (H) 0.90 - 1.10 [facility] Specimen Blood Narrative [facility] - 12:18 PM LINOTYPE MACHINIST APPRENTICE This lab cannot be scheduled at the foll [facility] locations due to collection/proccessing restrictions: [facility] and [facility]. Performing Organization Address City/[facility] Phon e Number [facility] CANCER Unless otherwise noted, [place] [address] [place] all lab tests performed by: Division of Pathology and Laboratory Medicine [address] [place] [address] [place] 125 (11/18/2021 11:23 AM LINOTYPE MACHINIST APPRENTICE)Only the most recent of3 resultswithin the time period is included. [place] 125 11.1 <=38.0 U/mL [facility] Comment: DIAGNOSTIC Results greater than 11,500. 0 U/mL may not be reliable due to matrix effect with extended dilution as it exceeds the construction foreman's recommended limit. Caution should be exercised when interpreting such values and done in conjunction with clinical CENTER context. This test is measured by jennie ctrochemiluminescence immunoassay on [employer] Dereck immunoassay analyzers. Results obtained in different methods are not interchangeable. Reference intervals are not available for male patients. Results should be interpreted in conjunction with clinical context. Specimen Blood Performing Organization Address City/[facility] Phon e Number [facility] DIAGNOSTIC Unless otherwise noted, [place] [phone] [place] all lab tests performed by: Division of Pathology and Laboratory Medicine [address] [place] [address] BUN (11/18/2021 11:23 AM LINOTYPE MACHINIST APPRENTICE)Only the most recent of2 resultswithin the time period is included. Pathologist Sig nature BUN 19 6 - 23 mg/dL [facility] DIAGNOSTIC CE NTER Specimen Blood Performing Organization Address City/[facility] Phon e Number [facility] DIAGNOSTIC Unless otherwise noted, [address] all lab tests performed by: Division of Pathology and Laboratory Medicine [address] ALT (11/18/2021 11:23 AM LINOTYPE MACHINIST APPRENTICE) Pathologist Sig nature ALT 33 <=33 U/L [facility] DIAGNOSTIC CE NTER Specimen Blood Performing Organization Address City/[facility] Phon e Number [facility] DIAGNOSTIC Unless otherwise noted, [address] all lab tests performed by: Division of Pathology and Laboratory Medicine [address] Aspartate Aminotransferase (11/18/2021 11:23 AM LINOTYPE MACHINIST APPRENTICE) Pathologist Sig nature AST 32 <=32 U/L [facility] DIAGNOSTIC CE NTER Specimen Blood Performing Organization Address [facility] Phon e Number [facility] DIAGNOSTIC Unless otherwise noted, [address] all lab tests performed by: Division of Pathology and Laboratory Medicine [address] TSH (11/18/2021 11:23 AM LINOTYPE MACHINIST APPRENTICE) Pathologist Sig nature TSH 2.77 0.27 - 4.20 mcunit/mL [facility] Specimen Blood Performing Organization Address City/[facility] Phon e Number [facility] CANCER Unless otherwise noted, [address] all lab tests performed by: Division of Pathology and Laboratory Medicine [address] Free T4 (11/18/2021 11:23 AM LINOTYPE MACHINIST APPRENTICE) Pathologist Sig nature T4 Free 1.57 0.93 - 1.70 ng/dL [facility] CANCER C ENTER Specimen Blood Performing Organization Address [facility] Phon e Number [facility] CANCER Unless otherwise noted, [address] all lab tests performed by: Division of Pathology and Laboratory Medicine [address] Total Protein (11/18/2021 11:23 AM LINOTYPE MACHINIST APPRENTICE) Pathologist Sig nature Total Protein 7.6 6.4 - 8.3 g/dL [facility] DIAGNOSTIC CENTER Specimen Blood Performing Organization Address [facility] Phon e Number [facility] DIAGNOSTIC Unless otherwise noted, [address] all lab tests performed by: Division of Pathology and Laboratory Medicine [address] Alkaline Phosphatase (11/18/2021 11:23 AM LINOTYPE MACHINIST APPRENTICE) Pathologist Sig nature Alk Phos 84 35 - 104 U/L [facility] DIAGNOSTIC CE NTER Specimen Blood Performing Organization Address [facility] Phon e Number [facility] DIAGNOSTIC Unless otherwise noted, [address] all lab tests performed by: Division of Pathology and Laboratory Medicine [address] Glucose Level (11/18/2021 11:23 AM LINOTYPE MACHINIST APPRENTICE) Glucose Level 97 70 - 99 mg/dL [facility] Comment: DIAGNOSTIC CENTER Effective 04/19/16, the gluco se reference intervals have been updated based on [place] Diabetes Association guidelines (Standards of Medical Care in Diabetes 2016. Diabetes Care 2016; 39: S13-S22). Fasting blood glucose: Normal: 70-99 mg/dL Impaired fasting glucose (in creased risk for diabetes or pre-diabetes): 100- 125 mg/dL Diabetes mellitus: >/=126 mg/dL Random blood glucose: Normal: 70-199 mg/dL Note: Random glucose >100 mg/dL is assoc iated with increased risk for diabetes Specimen Blood Performing Organization Address [facility] Phon e Number [facility] DIAGNOSTIC Unless otherwise noted, [address] all lab tests performed by: Division of Pathology and Laboratory Medicine [address] Calcium Level (11/18/2021 11:23 AM LINOTYPE MACHINIST APPRENTICE) Pathologist Sig nature Calcium Lvl 10.0 8.4 - 10.2 mg/dL [facility] DIAGNOSTI C CENTER Specimen Blood Performing Organization Address [facility] Phon e Number [facility] DIAGNOSTIC Unless otherwise noted, [address] all lab tests performed by: Division of Pathology and Laboratory Medicine [address] Albumin Level (11/18/2021 11:23 AM LINOTYPE MACHINIST APPRENTICE) Pathologist Sig nature Albumin Lvl 4.3 3.5 - 5.2 gm/dL [facility] DIAGNOSTIC CENTER Specimen Blood Performing Organization Address [facility]/ZIP Code Phon e Number [facility] DIAGNOSTIC Unless otherwise noted, [place] [phone] all lab tests performed by: Division of Pathology and Laboratory Medicine [address] [facility] Electrolyte Panel (11/18/2021 11:23 AM LINOTYPE MACHINIST APPRENTICE) Pathologist Sig nature Sodium Lvl 140 136 - 145 mEq/L [facility] Potassium Lvl 3.7 3.5 - 5.1 mEq/L [facility] DIAGNOSTI C CENTER Chloride 104 98 - 107 mEq/L [facility] CO2 26 22 - 29 mEq/L [facility] Anion Gap 10 4 - 14 mEq/L [facility] Specimen Blood Performing Organization Address [facility] Phon e Number [facility] DIAGNOSTIC Unless otherwise noted, [place] [phone] all lab tests performed by: Division of Pathology and Laboratory Medicine [address] [facility] Hemoglobin A1c (11/18/2021 11:15 AM LINOTYPE MACHINIST APPRENTICE) Pathologist Sig nature A1C 5.6 4.3 - 5.6 % [facility] Comment: CANCER CENTER HbA1c values >=6.5% are diagnostic of diabetes mellitu s. Diagnosis should be confirmed by repeat testing. Therapeutic Action suggested: >8.0% HbA1c; Goal of therapy: <7.0% HbA1c Specimen Blood Performing Organization Address [facility] Phon e Number [facility] CANCER Unless otherwise noted, [address] all lab tests performed by: Division of Pathology and Laboratory Medicine [address] [facility] EKG, 12-Lead (Scheduled) (11/16/2021) Specimen Narrative This result has an attachment that is no t available. Performing Organization Address [facility] Phon e Number [facility] (ABNORMAL) US Chest for Breast Ultrasound (Add-on Only) (11/04/2021 1:27 PM LINOTYPE MACHINIST APPRENTICE) Specimen Impressions [facility] - 11/04/2021 1:45 PM LINOTYPE MACHINIST APPRENTICE No mammographic evidence of malignancy. A benign [...] Imaging Eunice CROWELL - 11/04/2021 1:45 PM LINOTYPE MACHINIST APPRENTICE EXAMINATIONS: BILATERAL WHOLE-BREAST ULTRASOUND, COMPL ETE. ULTRASOUND CHEST. CLINICAL INDICATION: Abnormal screening mammogram. TECHNIQUE: Real-time sonographic imaging of both br easts (including all 4 quadrants and retroareolar region) was performed. Re al-time sonographic imaging of bilateral regional leo basins including the axil alana (level I, II, III) and internal mammary regions was performed. COMPARISON: Prior breast imaging dating back to 2016 (reports unavailable for the 10/07/2021 mammogram). BILATERAL [...] 4 quadrants and retroareolar region) was performed. Lakesha l-time sonographic imaging of bilateral regional leo basins including the axil alana (level I, II, III) and internal mammary regions was performed. COMPARISON: Prior breast imaging dating back to 2016 (reports unavailable for the 10/07/2021 mammogram). BILATERAL [...] Category 0: Incomplete: Needs Additional Imaging Eunice rommelation Performing Organization Address City/State/ZIP Code Phon e Number [facility] (ABNORMAL) US Breast Complete - Bilateral (11/04/2021 1:27 PM LINOTYPE MACHINIST APPRENTICE) Specimen Impressions [facility] - 11/04/2021 1:45 PM LINOTYPE MACHINIST APPRENTICE No mammographic evidence of malignancy. A benign [...] Incomplete: Needs Additional Imaging Eunice luation Narrative [facility] - 11/04/2021 1:45 PM LINOTYPE MACHINIST APPRENTICE EXAMINATIONS: BILATERAL WHOLE-BREAST ULTRASOUND, COMPL ETE. ULTRASOUND CHEST. CLINICAL INDICATION: Abnormal screening mammogram. TECHNIQUE: Real-time sonographic imaging of both br easts (including all 4 quadrants and retroareolar region) was performed. Re al-time sonographic imaging of bilateral regional leo basins including the axil alana (level I, II, III) and internal mammary regions was performed. COMPARISON: Prior breast imaging dating back to 2016 (reports unavailable for the 10/07/2021 mammogram). BILATERAL [...] 4 quadrants and retroareolar region) was performed. [place] l-time sonographic imaging of bilateral regional leo [...] Category 0: Incomplete: Needs Additional Imaging Eunice hernandez Performing Organization Address City/State/ZIP Code Phon e Number [facility] Mammography Digital Diagnostic Bilateral with Abdelrahman (11/04/2021 12:27 PM LINOTYPE MACHINIST APPRENTICE) Specimen Addenda Addendum by Harvinder Mark MD on 11/18/19 4:15 PM LINOTYPE MACHINIST APPRENTICE ADDENDED REPORT ----- 11/18/2021 Addendum: The report [...] recommended. BI-RADS Category 2: Benign Finding(s) Impressions [facility] - 11/07/2021 9:52 AM LINOTYPE MACHINIST APPRENTICE No mammographic evidence of malignancy. A benign [...] Incomplete: Needs Additional Imaging Eunice luation Narrative [facility] - 11/07/2021 9:52 AM LINOTYPE MACHINIST APPRENTICE CLINICAL INDICATION: Abnormal screening mammogram. MAMMO DIGITAL [...] Analysis Interpretation and Report (10/26/2021 7:03 PM LINOTYPE MACHINIST APPRENTICE) Specimen Narrative This result has an attachment that is no t available. IR CT GUIDED BIOPSY PELVIC NON-BONE (10/25/2021 1:03 PM LINOTYPE MACHINIST APPRENTICE) Specimen Narrative Fermin Hoffman MD - 10/25/2021 1:08 PM LINOTYPE MACHINIST APPRENTICE Date of Procedure: 10/25/21 Attending Physician: Fermin Marion i, MD Software Architect: None Pre Procedure Diagnosis: Neoplasm, mal ignant [...] Cytology Image-Guided FNA Interpretation (10/25/2021 12:08 PM LINOTYPE MACHINIST APPRENTICE) Gross Description A: [facility] Specimens procured: 3 Diff Quik; 3 Pap Stain Slides 10 ml, slightly cloudy bloody fluid in RPMI 1 Cell Block Date/Time Placed in Formalin: 10/25/21 1:09 PM Size: 1.0 cm Immediate assessment for specimen adequacy was made x1 by Dr. Maria. Immediate Assessment Adequate cellularity, [facility] favor malignant Major Classification [...] the patient's known history of serous carcinoma. [facility] The cell block preparation was contributory towards th e above diagnosis. A concurrent core needle biopsy ([id number]) is also theo ilable. Retained/Biomarker SR:7S, 2CB, 4IP [facility] Testing MDL CB:50-300 MDL Pap:3S MDL DQ:1S MDL FISH:1S Informational Points Some tests reported [facility] here may have been developed and performance characteristics determined by [facility] Pathology and Laboratory Medicine. These tests have not been specifically cleared or approved by the U.S. Food and Drug Administration. This case originated at [facility], [address] [address], [place] [address]. Specimen Fine Needle Asp - Pelvis, Left Performing Organization Address [facility] Phon e Number [facility] [place] [address] [address] [facility] Pathology Biopsy Interpretation (10/25/2021 12:07 PM LINOTYPE MACHINIST APPRENTICE)Only the most recent of 2 resultswithin the time period is included. 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 (SEE COMMENT) signed by Mookie Valdes on BCL/FMT 10/27/2021 at 6: 21 PM Comment Immunohistochemical [facility] stains are performed and show the neoplastic cells to be positive for cytokeratin 7 (patchy), PAX-8, p16 (strong, diffuse), p53 (aberrant over-expression), ER (80%, moderate), and ID (95%, moderate to strong). The histologic and immunohistochemical findings are in keeping with the above diagnosis. Gross Description A: [facility] Left pelvic soft tissue nodu le biopsy with biomarkers: Multiple nicole-white core biopsies measuring 1.4 x 0.5 x 0.1 cm in aggregate, entirely submitted in A1. GM Biomarker T: A1 [facility] Block(s) N: N/A Disclaimer "Some tests reported here [facility] may have been developed and performance characteristics determined by [facility] Pathology and Laboratory Medicine. These tests have not been specifically cleared or approved by the U.S. Food and Drug Administration. If applicable, controls were reviewed and showed appropriate reactivity." Specimen Tissue - Pelvis, Left Performing Organization Address City/[facility]/ZIP Code Phon e Number [facility] [place] [address] [address] [facility] EKG, 12-Lead (Portable) (10/25/2021) Specimen Narrative This result has an attachment that is no t available. Performing Organization Address [facility] Phon e Number [facility] Glucose, Random (10/24/2021 9:56 AM LINOTYPE MACHINIST APPRENTICE) Glucose Random 108 70 - 199 mg/dL [facility] Comment: REGION Effective 04/19/16, the gluco se reference intervals have been updated based on [place] Diabetes Association guidelines (Standards of Medical Care in Diabetes 2016. Diabetes Care 2016; 39: S13-S22) Fasting blood glucose: Normal: 70-99 mg/dL Impaired fasting glucose (in creased risk for diabetes or pre-diabetes): 100-125 mg/dL Diabetes mellitus: >/= 126 mg/dL Random blood glucose: Normal: 70-199 mg/dL Note: Random glucose >100 mg/dL is assoc iated with increased risk for diabetes Testing performed at [facility], [address], [place] [address] Specimen Blood Performing Organization Address City/[facility]/[place] [address] Anion Gap (10/24/2021 9:56 AM LINOTYPE MACHINIST APPRENTICE) Pathologist Sig nature Anion Gap 7Comment: Testing 4 - 14 mEq/L [facility] performed at [facility], [address], [place] [address] Specimen Blood Performing Organization Address City/[facility]/ZIP [facility] [place] [address] Sodium Level (10/24/2021 9:56 AM LINOTYPE MACHINIST APPRENTICE) Pathologist Sig nature Sodium Lvl 140Comment: Testing 136 - 145 mEq/L [facility] performed at [facility], [address], [place] [address] Specimen Blood Performing Organization Address City/[facility]/[place] [address] Potassium (10/24/2021 9:56 AM LINOTYPE MACHINIST APPRENTICE) Potassium Lvl 3.8Comment: Testing 3.5 - 5.1 [facility] performed at [facility] mEq/L [facility], [address], [place] [address] Specimen Blood Performing Organization Address City/[facility]/ZIP [facility] [place] [address] (ABNORMAL) Chloride Level (10/24/2021 9:56 AM LINOTYPE MACHINIST APPRENTICE) Pathologist Sig nature Chloride 108 (H)Comment: 98 - 107 mEq/L [facility] Testing performed at [facility], [address], [place] [address] Specimen Blood Performing Organization Address City/State/[place] [address] Carbon Dioxide Level (10/24/2021 9:56 AM LINOTYPE MACHINIST APPRENTICE) Pathologist Sig nature CO2 25Comment: Testing 22 - 29 mEq/L [facility] performed at [facility], [address], [place] [address] Specimen Blood Performing Organization Address City/[facility]/ZIP [facility] [place] [phone] [address] MSI by PCR Material Request (10/16/2021 4:50 PM LINOTYPE MACHINIST APPRENTICE) Pathologist Sig johann Archived Material Previously diagnosed [facility] tissues from [id number] were selected for molecular analysis. Results will be reported separately. Specimen Tissue Performing Organization Address City/State/[place] [address] [address] IHC MSI (MLH1, MSH2, MSH6, PMS2) Material Request (10/16/2021 4:50 PM LINOTYPE MACHINIST APPRENTICE) Specimen Tissue Performing Organization Address City/[facility]/[place] [address] [address] IHC HER2/laura Material Request (10/16/2021 4:50 PM LINOTYPE MACHINIST APPRENTICE) Specimen Tissue Performing Organization Address City/[facility]/[place] [address] Chest Abdomen Pelvis with Contrast (10/13/2021 8:37 AM LINOTYPE MACHINIST APPRENTICE) Specimen Impressions [id number] - 10/13/2021 9:04 AM LINOTYPE MACHINIST APPRENTICE Interval development of a 1.3 x 1.3 cm n odule in the peritoneum along the left lower pelvis [series 3, image 246]. Given the reported history of increasing CA- 125 levels, this is concerning for a peritoneal implant. Other findings as described above. Narrative [id number] - 10/13/2021 9:04 AM LINOTYPE MACHINIST APPRENTICE FULL RESULT: Examination: CT CHEST ABDOMEN PELVIS [...] Organization Address City/State/ZIP Code Phon e Number [id number] POC Creatinine (10/13/2021 7:55 AM LINOTYPE MACHINIST APPRENTICE) POC Crea 0.9 0.6 - 1.3 POC [facility] Comment: mg/dL Medications, especially hydr oxyurea or supplements, such as ascorbate, can interfere with test results causing a falsely and significantly higher result than expected. If a problem is suspected with a patient's result, a sample should be sent to the laboratory for confirmatory testing. Method description: The i-ST AT is an analyzer used for in [...] Dev Yes POC [facility] Performing Lab DI DallasComment: POC [facility] Diagnostic Imaging [facility], [address] [place] [address]; Point of Care Software Licensing Specialist: Eli Beard MD Specimen Blood Performing Organization Address City/[facility]/ZIP Code Phon e Number POC [facility] OSI Mammo (10/07/2021 4:29 PM LINOTYPE MACHINIST APPRENTICE) Specimen Narrative [facility] - 10/28/2021 4:29 PM LINOTYPE MACHINIST APPRENTICE Study acquired at another institution. For comparison only. No MD Donaldson originated interpretation requested or a vailable. Performing Organization Address City/[facility] Phon e Number [facility] OSI Bone Density Study (10/07/2021 4:29 PM LINOTYPE MACHINIST APPRENTICE) Specimen Narrative Systemgenerated, Documentation - 022 4:29 PM LINOTYPE MACHINIST APPRENTICE Study acquired at another institution. For comparison only. No MD Donaldsno originated interpretation requested or a vailable. OSI Chest (12/23/2020 4:29 PM CDT) Specimen Narrative Systemgenerated, Documentation - 022 4:30 PM LINOTYPE MACHINIST APPRENTICE Study acquired at another institution. For comparison only. No MD Donaldson originated interpretation requested or a vailable. after 12/08/2020 Insurance Payer Benefit Plan / Subscriber ID Effective Dates Phone Addre ss Type Group [employer] MEDICARE AETNA MEDICARE [id number] 2019-Presen [address] [place] [address] Advance Directives Code Status Date Activated Date Inactivated Comments Full Code 11/28/2016 11:38 AM 11/29/2016 1:23 PM Care Teams Assistant Manager Quality Management Relationship Specialty Start Date End Date Deonna Leiva, PCP - General Gynecologic Medical 10/30/16 MD Oncology [address] [place] [phone] Denzel Pritchett PCP - External Obstetrics/Gynecology 10/30/16 "Hattie"MD Referring Mateo Chavez PCP - External Primary Internal Medicine 11/08/16 MD Malena Care Provider [address] [place] [phone]
--- OUTSIDE RECORDS SUMMARY | 2021-12-08 19:37 | XMS REPORT | Continuity of Care Document ---
:1950 Author Organization [facility] t Address [address] [place] [address] Care Team Providers Name Role Phone [phone] Primary Care Physician Unavailable SYSTEM, PROVIDER NOT IN Attending Clinician Unavailable Viraj LEIVA Attending Clinician Unavailable Viraj Leiva MD Attending Clinician Neisha PÉREZ Attending Clinician Pedro NICOLE, L Attending Clinician Unavailable Saad VUONG Attending Clinician SAAD Attending Clinician Unavailable HUDSON Attending Clinician Unavailable Hudson VUONG Attending Clinician Daniel HUNT L Attending Clinician Unavailable Mirna NICOLE, M Attending Clinician Unavailable Mayra Baird MD Attending Clinician NEISHA Attending Clinician Unavailable Yoselyn NICOLE, L Attending Clinician Sunshine PÉREZ Attending Clinician SUNSHINE Attending Clinician Unavailable León Rosenberg MD Attending Clinician Shi Hoffman MD Attending Clinician Ninoska BARCLAY Attending Clinician Minnie Mera MD Attending Clinician Lukas NICOLE Attending Clinician Unavailable Keila Dupont Attending Clinician Niya HUNT, M Attending Clinician Unavailable Chris HUNT Attending Clinician Unavailable GARETH CUELLAR Attending Clinician Unavailable Viraj LEIVA Admitting Clinician Unavailable GARETH CUELLAR Admitting Clinician Unavailable Payers Payer Name Policy Type Policy Number Effective Date Expiration Date Candelario LOPEZ MEDICARE PPO [id number] 2019 00:00:00 Problems Condition Condition Condition Status Onset Resolution Last Treating Co mments Source Name Details Category Date Date Treatment Clinician Date Metastatic Metastatic Disease Active 0 M D cancer to cancer to 10-14 Ronan rso the the 00:00: n peritoneum peritoneum 00 Cardiomega Cardiomega Disease Active 0 M D ly ly 10-14 Anderso 00:00: n 00 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 017 Anderso incontinen incontinen 00:00: n ce ce 00 Chronic Chronic Disease Active MD constipati constipati 18 An derso on on [...] (!) 106.2 kg (234 lb 2.1 oz) Afton body weight: 52.4 kg (115 lb 7.7 [...] Date Source Natural father Heart attack MD Lester son Natural mother Heart attack Lester son Natural mother Hypertension MD Lester son Social History Social Habit Start Date Stop Date Quantity Comments Source History of tobacco Current smoker MD Donaldson use History [facility] MD Donaldson Alcohol Frequency History [facility] MD Donaldson Alcohol Std Drinks History [facility] MD Donaldson Alcohol Binge Exposure to Not sure MD Donaldson SARS-CoV-2 (event) Alcohol intake 2021-11-18 2021-11-18 Current drinker of MD Donaldson 00:00:00 00:00:00 alcohol (finding) Tobacco use and 2016-11-08 2016-11-08 Smokeless tobacco MD Donaldson exposure 00:00:00 00:00:00 non-user History [facility] 2016-11-08 2016-11-08 social drinker Lester son Alcohol Comment 00:00:00 00:00:00 Tobacco Comment 2016-11-08 2016-11-08 quit 30yrs ago MD Jazmin ackerman 00:00:00 00:00:00 Sex [birth year] MD Medrano on 00:00:00 00:00:00 Smoking Status Start Date Stop Date Source Ex-smoker 2016-11-08 00:00:00 2016-11-08 00:00:00 MD Batista son Medications Ordered Filled Start Stop Current Ordering Indication Dosage Frequency Signature Comments Components Source Medication Medication Date Date Medication? Clinician (SIG) Name Name TURMERIC 2021- No 1{tbl} Take 1 MD ORAL 3-16 03-16 tablet by Anderso 13:57: 00:00 mouth n 12 :00 daily. acetaminoph Yes 650mg Take 650 M D en 3-16 mg by Anderso (TYLENOL) 12:39: mouth n 325 mg 36 every 6 tablet (six) hours as needed for mild pain. Eliquis 5 Yes 1{tbl} Take 1 MD mg tablet 3-14 tablet by Lester so 00:00: mouth n 00 twice daily. Entresto Yes 1{tbl} Take 1 MD 24-26 mg 3-14 tablet by Mitchell o tab per 00:00: mouth n tablet 00 twice daily. furosemide Yes 1{tbl} Take 1 MD (LASIX) 20 3-14 tablet by Ronan rso mg tablet 00:00: mouth n 00 twice daily. spironolact Yes 1{tbl} Take 1 MD one 3-14 tablet by Anderso (ALDACTONE) 00:00: mouth n 50 mg 00 daily. tablet amLODIPine 2021- No 5mg Take 5 mg M D (NORVASC) 5 11-16 by mouth And erso mg tablet 10:20: 00:00 twice n 17 :00 daily. aspirin 81 2021- No 81mg Take 81 mg MD mg EC 11-16- by mouth Anderso tablet 10:19: 00:00 daily. n 29 :00 Reported on 01/24/2017 DIGOXIN 2021-0 2021- No 125mg Take 125 MD ORAL 2-23 02-23 mg by Anderso 10:19: 00:00 mouth n [...] 37.5 morning. mg-25 mg per tablet traMADol 2021- No 1{tbl} Take 1 MD (ULTRAM) 50 6-12 12-16 tablet by An derso mg tablet 00:00: 00:00 mouth as n 00 :00 needed. pravastatin Yes 1{tbl} Take 1 MD (PRAVACHOL) 6-13 tablet by And erso 20 mg 00:00: mouth n tablet 00 daily. clopidogrel 2021- No 1{tbl} Take 1 M D (PLAVIX) 75 6-12 -16 tablet by An derso mg tablet 00:00: 00:00 mouth n 00 :00 daily. spironolact 2021- No 1{tbl} Take 1 M D one -12 -16 tablet by Anderso (ALDACTONE) 00:00: 00:00 mouth n 25 mg 00 :00 daily. tablet sulfamethox 2021- No 1{tbl} Take 1 M D azole-trime 4-04 02-23 tablet by An derso thoprim 00:00: 00:00 mouth n (BACTRIM 00 :00 daily. DS) 800 mg-160 mg per tablet ergocalcife No 45259C 50,000 M D rol 12-23 02-23 Units Anderso (DRISDOL) 00:00: 00:00 every 30 n 50,000 00 :00 (thirty) units days. capsule losartan 2019-09 (JULIETTE) 50 10-21-16 Anderso mg tablet 00:00: 00:00 n 00 :00 Immunizations Ordered Immunization Filled Immunization Date Status Commen ts Source Name Name Pfizer SARS-CoV-2 2021-05-14 Completed MD Ferraro rson Vaccination 00:00:00 Pfizer SARS-CoV-2 2021-04-25 Completed MD Ferraro rsfredrick Vaccination 00:00:00 Vital Signs Vital Name Observation [...] Oxygen saturation 2021-11-28 20:15:00 97 /min MD Donaldson in Arterial blood by Pulse oximetry Body [...] on TYPE AND SCREEN 2021-11-28 13:41:00 Star Treviño MD ABORH 2021-11-28 13:41:00 Star Treviño MD ANTIBODY SCREEN 2021-11-28 13:41:00 Star Treviño MD TMP INTERPRETATION ANTIBODY 2021-11-28 13:41:00 Star Treviño MD SCREEN NEGATIVE CLOT EXPIRATION DATE 2021-11-28 13:41:00 Star Treviño MD Ronan rson ECHOCARDIOGRAM 2D COMPLETE 2021-11-21 13:51:52 Oralia Coronel GENERAL LABORATORY ADD ON 2021-11-18 19:50:00 Susan Baird MD TEST COVID-19 (SARS-COV-2) 2021-11-18 18:07:00 Dana Leiva MD PCR-ASYMPTOMATIC MC URINE CULTURE 2021-11-18 17:36:00 Dana Leivaers on URINALYSIS WITH MICROSCOPIC 2021-11-18 17:36:00 Dana Leiva MD IF INDICATED URINALYSIS MICROSCOPIC 2021-11-18 17:36:00 Dana Leiva MD CANCER ANTIGEN 125 2021-11-18 17:23:00 Dana Leiva MD And erson COMPLETE BLOOD COUNT W/ 2021-11-18 17:23:00 Dana Leiva DIFFERENTIAL COMPREHENSIVE METABOLIC 2021-11-18 17:23:00 Dana Leiva PANEL PROTHROMBIN TIME 2021-11-18 17:23:00 Dana Leiva MD Lester son APTT 2021-11-18 17:23:00 Dana Leiva MD Mitchell on Results CBC 2021-11-18 17:23:00 Dana Leiva MD on MANUAL DIFFERENTIAL 2021-11-18 17:23:00 Dana Leiva MD GLUCOSE LEVEL 2021-11-18 17:23:00 Dana Leiva MD on BLOOD UREA NITROGEN 2021-11-18 17:23:00 Dana Leiva MD ELECTROLYTE PANEL 2021-11-18 17:23:00 Dana Leiva MD rson SERUM CREATININE 2021-11-18 17:23:00 Dana Leiva MD Lester son .GLOMERULAR FILTRATION RATE 2021-11-18 17:23:00 Dana Leiva MD CALCIUM LEVEL TOTAL 2021-11-18 17:23:00 Dana Leiva MD ALBUMIN LEVEL 2021-11-18 17:23:00 Dana Leiva MD on ALKALINE PHOSPHATASE 2021-11-18 17:23:00 Dana Leiva MD ALANINE AMINOTRANSFERASE 2021-11-18 17:23:00 Dana Leiva MD ASPARTATE AMINOTRANSFERASE 2021-11-18 17:23:00 Dana Leiva MD TOTAL PROTEIN 2021-11-18 17:23:00 Dana Leiva [...] SCREEN NEGATIVE CLOT EXPIRATION DATE 2021-11-18 17:15:00 Daan Leiva MD EKG, 12-LEAD (SCHEDULED) 2021-11-16 00:00:00 Los Gonsalez MD US BREAST COMPLETE BILATERAL 2021-11-04 19:27:00 Christian Driver MD US CHEST 2021-11-04 19:27:00 Christian Driver MD MAMMO DIGITAL DIAGNOSTIC 2021-11-04 18:27:05 Christian Driver MD BILATERAL W OSWALDO HP MD MICROSATELLITE 2021-10-27 01:03:00 Dana Leiva MD INSTABILITY (MSI) ANALYSIS INTERPRETATION AND REPORT IR CT GUIDED BIOPSY PELVIC 2021-10-25 19:03:06 Dana Leiva MD NON-BONE CYTOLOGY IMAGE-GUIDED FNA 2021-10-25 18:08:00 Dana Leiva MD INTERPRETATION PATHOLOGY BIOPSY 2021-10-25 18:07:00 Dana Leiva MD son INTERPRETATION EKG, 12-LEAD (PORTABLE) 2021-10-25 00:00:00 Genaro Mcclelland MD COMPLETE BLOOD COUNT W/ 2021-10-24 15:56:00 GonsalezLos MD DIFFERENTIAL CARBON DIOXIDE LEVEL 2021-10-24 15:56:00 GonsalezLos MD rsfredrick CHLORIDE LEVEL 2021-10-24 15:56:00 GonsalezLos MD SODIUM LEVEL 2021-10-24 15:56:00 GonsalezLos MD POTASSIUM LEVEL 2021-10-24 15:56:00 Los Gonsalez MD SERUM CREATININE 2021-10-24 15:56:00 OgnsalezLos MD BLOOD UREA NITROGEN 2021-10-24 15:56:00 Los Gonsalez MD PROTHROMBIN TIME 2021-10-24 15:56:00 Los Gonsalez MD GLUCOSE, RANDOM 2021-10-24 15:56:00 GonsalezLos MD TYPE AND SCREEN 2021-10-24 15:56:00 GonsalezLos MD Results CBC 2021-10-24 15:56:00 Los Gonsalez MD MANUAL DIFFERENTIAL 2021-10-24 15:56:00 Los Gonsalez MD SERUM CREATININE 2021-10-24 15:56:00 Los Gonsalez MD .GLOMERULAR FILTRATION RATE 2021-10-24 15:56:00 Los Gonsalez MD ABORH 2021-10-24 15:56:00 GonsalezLos lee MD ANTIBODY SCREEN 2021-10-24 15:56:00 Los Gonsalez MD ANION GAP 2021-10-24 15:56:00 Los Gonsalez MD TMP INTERPRETATION ANTIBODY 2021-10-24 15:56:00 Los Gonsalez MD SCREEN NEGATIVE CLOT EXPIRATION DATE 2021-10-24 15:56:00 Los Gonsaleze rson COVID-19 (SARS-COV-2) 2021-10-24 15:53:00 Fermin Hoffman MD PCR-ASYMPTOMATIC MC AP IHC MSI (MLH1, MSH2, 2021-10-16 22:50:59 Dana Leiva MSH6, PMS2) MATERIAL REQUEST AP IHC HER2/KIMMIE MATERIAL 2021-10-16 22:50:59 Dana Leiva MD REQUEST AP MSI BY PCR MATERIAL 2021-10-16 22:50:59 Dana Leiva MD REQUEST CT CHEST ABDOMEN PELVIS W 2021-10-13 14:37:33 Christian Driver MD CONTRAST POC CREATININE 2021-10-13 13:55:00 Christian Driver MD OSI BONE DENSITY STUDY 2021-10-07 22:29:00 Mateo Chavez MD derson Malena OSI MAMMO BILATERAL 2021-10-07 22:29:00 Mateo Chavezer son Malena PATHOLOGY BIOPSY 2021-09-30 19:11:00 Christian Driver MD INTERPRETATION CANCER ANTIGEN 125 2021-09-30 17:35:00 Christian Driver MD on CANCER ANTIGEN 125 2021-03-23 15:41:42 Christian Driver MD on OSI CHEST 2020-12-23 21:29:00 Mateo Chavez MD Plan of Care Planned Activity Planned Date Details Comments Source Future Scheduled Test 2021-06-11 00:00:00 COVID-19 Vaccination (3 MD Donaldson - Inadvertent risk 4-dose series) [code = COVID-19 Vaccination (3 - Inadvertent risk 4-dose series)] Encounters Start End Encounter Admission Attending Care Care Encounter Source Date/Time Date/Time Type Type Clinicians Facility Department ID 2021-11-07 Outpatient SYSTEM, DILLON CARRANZA [id number] 11:25:34 PROVIDER Mitchell o n 2021-11-04 Inpatient MARTHA, MDA [employer]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 [id number] 16:17:09 DANA meza 2021-10-19 Outpatient STLMLC STLMLC [id number] 14:40:33 [facility] 2021-12-07 2021-12-07 Outpatient KYLER LEIVA, MDA MDA [id number] 13:01:24 13:01:24 DANA meza 2021-11-28 2021-11-28 Outpatient KYLER CORONEL, MDA MDA [id number] 07:30:00 23:59:00 ORALIA meza 2021-11-28 2021-11-28 Outpatient EL HUDSON, MDA MDA [id number] 07:11:29 07:29:00 STAR meza 2021-11-21 2021-11-21 Outpatient KYLER CORONEL, MDA MDA [id number] 07:00:00 23:59:00 ORALIA meza 2021-11-18 2021-11-18 Outpatient KYLER LEIVA, MDA MDA [id number] 11:00:00 23:59:00 DANA meza 2021-11-18 2021-11-18 Outpatient KYLER LEIVA, MDA MDA [id number] 12:27:48 15:24:25 DANA meza 2021-11-18 2021-11-18 Outpatient KYLER DRIVER, MDA MDA [id number] 15:22:16 15:22:16 CHRISTIAN meza 2021-11-18 2021-11-18 Outpatient KYLER LEIVA, MDA MDA [id number] 12:28:16 12:28:16 DANA meza 2021-11-18 2021-11-18 Outpatient KYLER LEIVA, MDA MDA [id number] 11:58:51 12:12:03 DANA meza 2021-11-16 2021-11-16 Outpatient KYLER GONSALEZ, MDA MDA [id number] 09:38:14 23:59:00 LOS meza 2021-11-16 2021-11-16 Outpatient SAAD, MDA MDA [id number] MD 09:37:56 10:51:59 ORALIA meza 2021-11-04 2021-11-04 Outpatient [facility], MDA MDA [id number] MD 15:20:54 15:20:54 DANA meza 2021-11-04 2021-11-04 Outpatient [facility], MDA MDA [id number] MD 12:28:30 12:28:30 CHRISTIAN Medrano o susana 2021-11-04 2021-11-04 Outpatient [facility], MDA MDA [id number] MD 10:28:13 10:28:13 CHRISTIAN Medrano o susana 2021-11-03 2021-11-03 Outpatient [facility], MDA MDA [id number] MD 16:09:24 16:11:25 DANA meza 2021-10-28 2021-10-28 Outpatient [facility], MDA MDA [id number] MD 16:20:12 16:20:12 DANA meza 2021-10-28 2021-10-28 Outpatient [facility], MDA MDA [id number] MD 16:20:11 16:20:11 DANA meza 2021-10-28 2021-10-28 Outpatient [facility], MDA MDA [id number] MD 16:20:10 16:20:10 DANA meza 2021-10-28 2021-10-28 Outpatient [facility], MDA MDA [id number] MD 16:20:09 16:20:09 DANA meza 2021-10-28 2021-10-28 Outpatient [facility], MDA MDA [id number] MD 16:20:08 16:20:08 DANA meza 2021-10-28 2021-10-28 Outpatient [facility], MDA MDA [id number] MD 16:20:07 16:20:07 DANA meza 2021-10-28 2021-10-28 Outpatient [facility], MDA MDA [id number] MD 16:20:05 16:20:05 DANA meza 2021-10-26 2021-10-26 Outpatient [facility], MDA MDA [id number] 19:02:00 23:59:00 DANA meza 2021-10-25 2021-10-25 Outpatient KYLER LEIVA, MDA MDA [id number] 09:26:28 23:59:00 DANA Mitchell o n 2021-10-24 2021-10-24 Outpatient KYLER LEIVA, MDA MDA [id number] 10:13:24 23:59:00 DANA Mitchell o susana 2021-10-24 2021-10-24 Outpatient KYLER GONSALEZ, MDA MDA [id number] 09:55:40 10:10:08 LOS Mitchell meza 2021-10-24 2021-10-24 Outpatient KYLER LEIVA, MDA MDA [id number] 09:43:01 09:54:27 DANA Mitchell o susana 2021-10-14 2021-10-14 Outpatient KYLER LEIVA, MDA MDA [id number] 14:03:17 14:03:17 DANA Medrano o susana 2021-10-13 2021-10-13 Outpatient KYLER DRIVER, MDA MDA [id number] MD 07:10:42 07:10:42 CHRISTIAN Almanzarers o susana 2021-09-30 2021-09-30 Outpatient KYLER DRIVER, MDA MDA [id number] 11:50:15 13:51:12 CHRISTIAN Almanzarers o susana 2021-09-30 2021-09-30 Outpatient KYLER DRIVER, MDA MDA [id number] 11:34:41 11:41:58 CHRISTIAN Almanzarers o susana 2021-03-23 2021-03-23 Outpatient KYLER LEIVA, MDA MDA [id number] 11:10:26 11:10:26 DANA Medrano o susana 2021-03-23 2021-03-23 Outpatient KYLER DRIVER, MDA MDA [id number] 10:25:02 10:41:31 CHRISTIAN meza Results Test Description Test Time Test Comments Results Result Comments Source POC Oximetry Arterial 2021-11-28 20:46:40 Test Item Value Reference Range Interpretation Comme nts POC O2 Saturation, Arterial 100.0 % 95.0-99.0 H (test code = 87039) POC Oxyhemoglobin, Arterial 98.8 % 94.0-98.0 H (test code = 82073) POC Hemoglobin, total (test 10.5 g/dL 12.0-16.0 L code = 77920) POC Carboxyhemoglobin (test <0.2 0.0-1.9 code = 27817) POC Methemoglobin (test code 1.8 % 0.0-1.5 H Method description: The = 28199) ABL80 FLEX CO-O X OSM analyzer is [...] OX Draw Site (test code = Aorta 45960) Performing Lab (test code = [facility] [address]) [place] MD Medrano on Clinical Lab, [address] [place] [address]; Lab Dire ctor: Arlene gates MD Lab Interpretation (test code Abnormal = 36533-8) MD DonaldsonTMP Interpretation Antibody Screen [id number] 17:46:53 Test Item Value Reference Range Interpretation Comments TMP Auto Neg At the present ABSC Interp time, patient (test code = plasma shows no ____JESIS ROGERS 7535) evidence of RBC MD PATY, P hD - alloantibodies. [id number] d by: Mookie HERNÁNDEZ, PhD - [id number] D ate/Time: 11.28.2021 11:4 6 AM TOMBSTONE CARVER Transcribed Da te/Time: 11.28.2021 11:4 6 AM CSTElectronical ly Signed By: JESSI NEWMAN MD, PhD - [id number] on 11.28.2021 1 1:46 AM MD [id number] 16:52:30 Test Item Value Reference Range Interpretation Comments ABORh. (test code = 882-1) O POS MD DonaldsonClot Expiration [id number] 16:52:26 Test Item Value Reference Range Interpretation Comments T & S Expiration (test code = 12/01/2021 5318) MD DonaldsonAntibody [id number] 16:51:56 Test Item Value Reference Range Interpretation Comments ABSC. (test code = 890-4) Negative ABSC MD DonaldsonPO Oximetry [id number] 15:45:17 Test Item Value Reference Interpretation Comments Range POC O2 65.0 % Saturation,Venous (test code = 68516) POC Oxyhemoglobin, 63.5 % Venous (test code = 11907) POC Hemoglobin, total 10.6 g/dL 12.0-16.0 L (test code = 62802) POC Carboxyhemoglobin 0.5 % 0.0-1.9 (test code = 52098) POC Methemoglobin 1.9 % 0.0-1.5 H Method ronak cription: (test code = 59125) The ABL8 0 FLEX CO-OX OSM analyzer [...] Draw Site (test R atrium code = 30365) Performing Lab (test MDA Main Main [place] mpus code = 50927) [facility] MD Donaldson Cli nical Lab, [address], [facility] [place] [address]; Paratransit Driver: Tanya Navarro MD Lab Interpretation Abnormal (test code = 78413-3) MD Moyer Glucose [id number] 14:58:52 Test Item Value Reference Interpretation Comments Range POC Glucose (test 102 mg/dL 70-99 H RN Notifie dCapillary code = 59178-8) blood sample s, e.g. obtained by fingerstick, [...] Capillary code = 9554) Performing Lab (test MDA Main Main Ca [facility] code = 29983) [facility] MD Jazmin ackerman Clinical Lab, [address] [facility], [place], [place] [address]; Paratransit Driver: Tanya Navarro MD Lab Interpretation Abnormal (test code = 62888-7) MD DonaldsonCOVID-19 (SARS-CoV-2) PCR-Asymptomatic [id number] 04:33:25 Test Item Value Reference Range Interpretation Comments COVID19 (SARS Not Detected Not Detected CoV-2) Result (test code = ____[place] a 01633-1) qualitative reverse-transcr iptase polymerase sukhdeep n reaction [...] patients provid ed by the manufacture r ([employer]) c an be reviewed at:https://www. fda.go v/media/387148/ kallo ad. A fact shee t for Health Care pro viders is provided by the plant safety leader ([employer]) and can be reviewed at: https://www.fda .gov/m edia/654773/alba nload Results must be interpreted wit hin [...] were verified by the Microbiology Laboratory at [facility] CLIA Accreditation # : [id number] and CAP Accreditation # : [id number]. COVID19 SARS BRACELET FORM COVERER Swab Source (test code = 47334) COVID19 SARS Pre-OR Procedure Indication (test code = 95901) MD [id number] 20:51:59 Test Item Value Reference Range Interpretation Comments TSH (test code = 2.77 See_Comment [Automated message] The 78745-9) system which ge nerated this result transmit elena reference range : 0.27 - 4.20 mcunit/mL. The reference range was not used to interpr et this result as maury l/abnormal. MD Mcdonald [id number] 20:51:58 Test Item Value Reference Range Interpretation Comments T4 Free (test code = 3024-7) 1.57 ng/dL 0.93-1.70 MD DonaldsonGeneral Laboratory Add-On [id number] 20:06:39 Test Item Value Reference Range Interpretation Comments Ordered (test code = 6568) Test Added Test Needed (test code = 7604) TSH, Free T4 MD DonaldsonUrinalysis with [id number] 18:41:22 Test Item Value Reference Interpretation Comments Range UA WBC (test code = 3 See_Comment H [Automa elean 03016-2) message] The system which generated this result transmitted reference range : 0 - 2 /HPF. The reference range was not used to interpret this result as normal/abnormal . UA RBC (test code = <1 See_Comment [Automa elena 82853-9) message] The system which generated this result transmitted reference range : 0 - 2 /HPF. The reference range was not used to interpret this result as normal/abnormal . UA Mucous (test code NOT SEEN Not Seen-Trace = 40193-3) /HPF UA Bacteria (test NOT SEEN NOT SEEN /HPF code = 04742-0) UA Squam Epi (test OCC None-Occasiona code = 87320-5) l /HPF UA Trans Epi (test OCC NOT SEEN /HPF A code = 29725-7) CHRISTOPHER (test code = Some reporting CHRISTOPHER) parameters within the Urinalysis test have changed due to the implementation of new instrumentation in the Main [place], allowing greater sensitivity of measurement. Urinalysis results reported by the [facility] using existing instrumentation, as well as Urinalysis testing performed manually or by backup methodology at the Main [place] will remain relatively unchanged. New reporting parameters and units will now be reported for all campuses. Lab Interpretation Abnormal (test code = 81203-9) MD [id number] 18:18:01 Test Item Value Reference Range Interpretation Comments aPTT (test 35.9 See_Comment [Automated mes alexis] code = [place] [address]-4) generated this result transmitted ref erence range: 24.7 - 3 6.8 second(s). The reference range was not used to int erpret this result as normal/abnormal . CHRISTOPHER (test code This lab cannot be = CHRISTOPHER) scheduled at the following locations due to collection/proccess ing restrictions: [facility] and [facility]. MD DonaldsonProthrombin Time with [id number] 18:18:00 Test Item Value Reference Range Interpretation Comments PT (test code = 14.2 See_Comment H [Automated 5901-) message] The system which generated this result transmitted reference range : 11.5 - 13.9 second(s). The reference range was not used to interpret this result as normal/abnormal . INR (test code = 1.17 0.90-1.10 H 6301-6) CHRISTOPHER (test code = CHRISTOPHER) This lab cannot be scheduled at the following locations due to collection/procc essing restrictions: [facility] and [facility]. Lab Interpretation Abnormal (test code = 77129-1) MD DonaldsonElectrolyte [id number] 18:17:45 Test Item Value Reference Range Interpretation Comments Sodium Lvl (test code = 140 See_Comment [Au tomated message] The 2950-10) system which ge nerated this result tra [...] this result as normal/abnormal . MD DonaldsonAspartate [id number] 18:17:44 Test Item Value Reference Range Interpretation Comments AST (test code = 32 U/L See_Comment [Automated message] The 1920-04) system which ge nerated this result transmit elena reference range : <=32. The reference range was not used to interpr et this result as maury l/abnormal. MD DonaldsonFractionated [id number] 18:17:43 Test Item Value Reference Range Interpretation Comments Bili Total (test 1.0 mg/dL See_Comment Indocyanine Green (ICG) code = 1974-) may cause fal sely elevated biliru bin results. Total and direct bilirubin must not be measured from s amples containing indo cyanine green. False el evation of total bilirubin can be seen in patient s with IgG concentrations above 28 g/L. [Automate d message] The system [employer] generated this result transmitted ref erence range: [...] Indirect (test 0.7 mg/dL 0.0-0.9 code = 1970-) MD DonaldsonTotal [id number] 18:17:42 Test Item Value Reference Range Interpretation Comments Total Protein (test code = 2885-2) 7.6 g/dL 6.4-8.3 MD DonaldsonCalcium [id number] 18:17:41 Test Item Value Reference Range Interpretation Comments Calcium Lvl (test code = 04208-9) 10.0 mg/dL 8.4-10.2 MD [id number] 18:17:40 Test Item Value Reference Range Interpretation Comments ALT (test code = 33 U/L See_Comment [Automated message] The 1742-02) system which ge nerated this result transmit elena reference range : <=33. The reference range was not used to interpr et this result as maury l/abnormal. MD [id number] 18:17:38 Test Item Value Reference Range Interpretation Comments BUN (test code = 3094-0) 19 mg/dL 6-23 MD DonaldsonGlomerular Filtration [id number] 18:17:37 Test Item Value Reference Range Interpretation Comments eGFR-AA (test code = 58 See_Comment L Normal eGFR: >= 60 03632-6) mL/min/1.73 m2N ote: The eGFR is clementine culated using the CKD-E PI equation. The e GFR declines with a ge. eGFR <60 mL/min /1.73 m2 is considere d as "decreased". Th is equation should only be used for pat ients 18 and older. According to th e [employer] Kid[employer]'s dney Disease Outcome Quality Initiat ines (KDOQI) [...] 50 See_Comment L Normal eGFR: >= 60 69834-8) mL/min/1.73 m2N ote: The eGFR is clementine culated using the CKD-E PI equation. The e GFR declines with a ge. eGFR <60 mL/min /1.73 m2 is considere d as "decreased". Th is equation should only be used for pat ients 18 and older. According to th e [employer]'s dney Disease Outcome Quality Initiat ines (KDOQI) [...] . Lab Interpretation Abnormal (test code = 24119-6) MD DonaldsonGlucose Vvbbr2863-03-15 18:17:36 Test Item Value Reference Range Interpretation Comments Glucose Level (test 97 mg/dL 70-99 Effectiv e 04/19/16, the code = 2345-7) glucose refer ence intervals have been updated based o n [place] [employer] herminio delines (Standards of M edical Care in Diabete s 2016. Diabetes Care 2 016; 39: S13-S22).Fastin g blood glucose:Normal: 70-99 mg/dLImpaired f asting glucose (increa sed risk for diabetes or pre-diabetes): 100-125 mg/dLDiabetes m ellitus: >/=126 mg/dL Ra ndom blood glucose:N ormal: 70-199 mg/dLNot e: Random glucose >100 mg /dL is associated with increased risk for diabetes MD DonaldsonAlkaline Usrjzcweuyu0596-53-20 18:17:35 Test Item Value Reference Range Interpretation Comments Alk Phos (test code = 6768-6) 84 U/L 35-104 MD DonaldsonAlbumin Huybr1911-93-71 18:17:34 Test Item Value Reference Range Interpretation Comments Albumin Lvl (test code 4.3 See_Comment [Aut omated message] The = 3176) system which ge nerated this result tra nsmitted reference range : 3.5 - 5.2 gm/dL. The refe rence range was not used to interpret this result as normal/abnormal . MD DonaldsonCA 5005586-70-76 18:17:32 Test Item Value Reference Range Interpretation Comments CA 125 (test 11.1 U/mL See_Comment Results greater than 11,500.0 code = 5169) U/mL may not be reliable due to matrix effect w ith extended dilution as it exceeds the plant safety leader's recommended limit. Caution should be exercised when interpreting such values and done in conjunction with clinical c ontext.This test is measured by electrochemilum inescence immunoassay on [employer] Dereck immunoassay rno lyzers. Results obtained in dif ferent methods are not interchangeable .Reference intervals are n ot available for male patients. Results should be interpreted in conjunction with clinical contex t. [Automated message] The sy stem which generated this result transmitted ref erence range: <=38.0. The ref erence range was not used to int erpret this result as maury l/abnormal. MD Donaldson.Serum Ffmpcqjrjt5354-64-86 18:17:31 Test Item Value Reference Range Interpretation Comments Creatinine (test code = 2160-0) 1.11 mg/dL 0.51-0.95 H Lab Interpretation (test code = Abnormal 51609-3) MD DonaldsonHemoglobin F2w0777-21-81 18:14:44 Test Item Value Reference Range Interpretation Comments A1C (test code = 5.6 % 4.3-5.6 HbA1c value s >=6.5% are 4548-4) diagnostic of d iabetes mellitus.Diagno sis should be confirmed by repeat testing.Therape utic Action suggested: >8.0 % HbA1c; Goal oftherapy: <7.0% HbA1c MD DonaldsonUrinalysis w/Microscopic if Cfvkqcfzt0468-68-85 18:07:36 Test Item Value Reference Range Interpretation Comments UA Color (test code = 34520-7) Yellow Straw-Yellow UA Appear (test code = [...] A Lab Interpretation (test code = Abnormal 78257-4) MD DonaldsonNuhpojlbUavpjdsuonqi6260-18-52 17:43:49 Test Item Value Reference Range Interpretation Comments Neutrophil % (test code 60.6 % 42.0-66.0 = 770-8) Lymphocyte % (test code 30.4 % 24.0-44.0 = 736-9) Monocyte % (test code = 6.2 % 2.0-7.0 5905-5) Eosinophil % (test code 2.4 % 1.0-4.0 = 713-8) Basophil % (test code = 0.2 % 0.0-1.0 36645-9) IGRE % (test code = 0.2 % 0.0-0.4 IGRE % c ount includes 73702-7) Metamyelocytes, Myelocytes, and Promyelocytes. Neutrophil Abs (test 3.23 K/uL 1.70-7.30 code = 751-8) Lymphocyte Abs (test 1.62 K/uL 1.00-4.80 code = 731-0) Monocyte Abs (test code 0.33 K/uL 0.08-0.70 = 742-7) Eosinophil Abs (test 0.13 K/uL 0.04-0.40 code = 711-2) Basophil Abs (test code 0.01 K/uL 0.00-0.10 = 704-7) IG Abs (test code = 0.01 K/uL 0.00-0.04 06528-2) MD Donaldson.TPX6436-87-67 17:43:43 Test Item Value Reference Range Interpretation Comments WBC (test code = 5.3 K/uL 4.0-11.0 6690-2) RBC (test code = 789-8) 4.30 See_Comment [Au tomated message] The system [employer] generated this result transmitted ref erence range: 4.00 - 5 .50 M/uL. The refer ence range was not u sed to interpret this result as normal/abnor mal. Hgb (test code = 718-7) 11.9 See_Comment L [Au tomated message] The system [employer] generated this result transmitted ref erence range: 12.0 - 1 6.0 gm/dL. The refe rence range was not u sed to interpret this result as normal/abnor mal. Hct (test code = 38.4 % 37.0-47.0 4544-3) MCV (test code = 787-2) 89 fL 82-98 MCH (test code = 785-6) 27.7 pg 27.0-31.0 MCHC (test code = 31.0 See_Comment [Automate d message] 786-4) The system [employer] generated this result transmitted ref erence range: 31.0 - 3 6.0 gm/dL. The refe rence range was not u sed to interpret this result as normal/abnor mal. RDW-SD (test code = 49.9 fL 35.1-46.3 H 12787-2) RDW-CV (test code = 15.2 % 12.0-15.5 788-0) Platelet count (test 214 K/uL 140-440 code = 777-3) MPV (test code = 9.7 fL 4.0-10.4 20085-5) INRBC (test code = 0.0 % See_Comment The INRBC (instrument 02131-8) NRBC) value ref lects the enumeration of nucleated red b lood cells contained in a 200uL sampleof whole blood analyzed by the instrument. Thi s value maydiffer from the NRBC value repo rted in a manual differential,wh ich is based on a 100 cell differential. [Automated mess age] The system [employer] generated this result transmitted ref erence range: <=0.0. T he reference range was not used to int erpret this result as normal/abnormal . Lab Interpretation Abnormal (test code = 64831-3) MD DonaldsonUS Breast Complete - Ndpybjnwt4869-09-02 19:45:45 Test Item Value Reference Range Interpretation [...] Evaluation Lab Interpretation Abnormal (test code = 21325-9) [facility]2021-11-04 19:45:45 Test [...] Evaluation Lab Interpretation Abnormal (test code = 27913-2) MD DonaldsonCytology Image-Guided FNA Pdamcyobgzpxvt6509-92-26 00:43:00 Test Item Value Reference Range Interpretation Comments Gross Description (test s2jkqVKhZSZutLSCNShy code = 9957627172) KOffzaYeQQZqbVXjL4Dz crdzNZkjLB3qMG6rnFai xUTziACvXQ4YSNUyKlIm XHBhcGVydzEyMjQwXHBh jYLukBZ9YDCiUZ7kjloj GNpnLTgaMXVlajD9CPEw wEVwX0JqSBXjEX8sgqxx FEU8BHryfH1djzBRZnyg Fk6kuXYokTsfFjHpYnZt YXJzZXQwXGZuaWwgQXJp NAk1wL3EVigrM93jd5E9 Mtq5BZDkCPNcK5KhEH1o RKCikGAlM05DWwhfAGL9 POUZRrhkAGKwMP9Uv2fx DGBnfGCwOVW3EAmfgZFb WPKdSSVbZLw8BVQfEOyw zSLrLX3faAdtWqkxsIwc o2WuzIXxMCnbEQUcMCLj CZogVDWiCE8USzIoWNHw GIQzSGUrTLf9DQf6BA1G KuZcBASzDSRbZag4SKFc TGa9UEdcWS1GVDy1RpW7 UDS9ZRI8FVL7XKAdNYUe MiBcXGYgQXJpYWwgXFxm cyAxMCBcXGZiIFxcZmwg NZreF04euZrmkC0qBtux iyCqBCK7HHZzbrIBMryd bGFpblxlcGljTmVzdERv YzEgDQpcbHRycGFyXGxp bjBccmluMCANClxsdHJj aFxjZjFcZnMyMCBTcGVj rP0nlcLjwOKuF5ZwMWK1 XHBhciANCjMgRGlmZiBR dWlrOyAzIFBhcCBTdGFp mhSQsEdcWCRehDWaGL9N QEKlcQurLWjzzn18EYD6 b2eanDMzUZckPdqqbBUo wqT3MPsNAKFHFVdHGhIv FO4tILxXJ3XSVPdJAjfg BRD4PGahwFX4h5xdsZYj e5y4HDimBCV9rPWuuLkh uAc2HRSuv3QjhGUubMIh oNTrsJH6GPUdDUcvn0oo ILJxFCrev7RvMHtARWFF SZ2RGD8itQR2N1dWGAUJ E7iUcKK1a5pcfKSze9g7 FNsdGAH5tFMkv55jcHnp GfpqjLN7LEokHtsrdH2g dCBIWVBFUkxJTksgbmFt HQ5HLZdLJP0HvVS3e0mv uMCbx5v6GStrXPH1oQpb sCZbrhetxNXwiKjlmv59 FHO8IJMrUPxhgiYyLFCq rLBmSEhyIixgzOP9BOrz HjepoH2ihHSACFNXPkiU JrkvwyZhBD6OHWUOTM7O zYP7BtKvbFO6CO81QTDh VHBwcBOzFTntU215PCPd GXjiAKg1xsCoKZUaLRwx axDeUXBqbpJGLF0IHNPh ciANClxjZjAgMSBDZWxs MZHbg6OjNZVgdsGSHbBy dGUvVGltZSBQbGFjZWQg hW4hLw7qrCGuhW49IXfx fv79YQA7x0zvtHGwNAru OvrmpADiidR3RCuXHMOQ TXeCTgXwZO3qFMuIVscV GArPKgg9MMR7MlfffXIY HDQORFEUMOnloEg0DRo7 fXtcZmxkcnNsdCBcJzFD wL2tJa4nNF6dBgysWyju fXQ6KJerVicjjL5dyZZF JWQQBrtIYejrevWiBR5B HP8ONK8EmITyNAegmNJ4 XP9ZWEbBEKXUoQZ5nMao uWb9j0lojBFct1m7EMeh UJQ7jIfvkCSncmicnWAl aFxmczIwICBccHJvdGVj dPntUblmmZV3NLvsIfbj lV7gqJFZOMHSYcdDWvsl ynAnHB9IWJ1IAlUTMC78 JDX0WObBG5a7TWr3uVU0 vS00ROBxBJLobQYeTHog D061JUgiOMMHNDsjQism mKY0YQlmNwmsrS9oeOFG QJPYJjuVGlxvlwBeRN3F BV1BBB7KbTaiqKZ9Di3G uVF3kJmbmDj0q4vluURc a9x5HVcySBY7pDlzrOTy blxsdHJjaFxjZjFcZnMy XAvaSFDzAAztnXRvNX1P M9l1BQtnAN2oVVYkJEAj bsDJNodkgIOcbUG2KAVy f6Zjp9DeSB16LEEslvXs vTMneD5cudNnXUZspMEr aEA9MKDfoQXeOCGndWJc xBVkpNscGiupkKF4GFex KtvrkM2rlPFTMBJRZraC PmuvpbAxFM6DNBBHOkJT HP03MkH9GsW3ZXl1iRcx BhvvzmYmiNDwVhBCsR99 IPmmAxygfDK0ZHqkNgzx tL9ipUWESEMNXglDHgiv bxZxEH9PKIZYEQ0RmJH1 HdE8kNV8MO91YIBoQFHc yQCfYUppK423LJDtQAqv LGr9uqQxOOKzRCsmeuVd UCFaoWBApv7jZ6JeRNCt DAobxhUCUEYLFRcZD4He EPOWRNDIYCKiFcZMKI5q CyF5FdV2GU08LymtHkQ6 EnK8xGB9WRJMOZDYIRwG B5GzBXFIXIRMIGVvOG6J FMgMLDEPTZAJI54LDJMZ JGEIU4TXD3uHGEHee5Rn s49mtGjFGBOEGUALR13J ZPDATYIIC4BYMHSIGUPF RPjEYWGGJr0ZAILFRKYY CV6QIOdBKbMuYYfklODi GMzkEOU7HTf8VWy2wSJe a6PmwTT3UwU3CuQikGLK CZGODVdRRGDEGr8RWJKU TXNCVD4CQmRmR6WAWT1F It6AYMJAYQTHWH5VKOcZ UeYpB6EVAT7QLv3HBTXP DNRCEC8TSyQnARYPK3GX VsUDM6slTJRHMPHPPWKx UxOIVC6tDCCCMQ1EUAXW AEWSP19NGQGLMMSYL9PZ MI0RDAVbwJLBJDZ0IY4o SHr8WHwnHDWjG8QkH3Qz kpWknHAtERCtuaAfm8cy FYB2FGXiuPOxqIGvWeGe IrnrHOU0QUMpPGqxAH5X OKHeOMW1DFsebN58wPDh ZB4GGJAdPYuwQSTxJLJu erH3WYGowOFgPEG7MG3r aRlyuHXncdxwckT9QK6V fQ== Immediate Assessment Adequate (test code = 9837) cellularity, favor malignant Major Classification MALIGNANT A (test code = 9839) Diagnosis (test code = c9gzjKVzYUXqyXW8OlJr 34) LTZmv1twc1ShhNHxjRRc DVfanBBoxzTehz93zLX7 dG09VG5pKRHfSaL1DPDv juN6Hxp2GIXtJYGlgJGc I911d2udx6pwnjYgrSC6 RKSyBYDxB7ZdQC5qKFOb mDLmB95plOZxDWE5OLNc BQSftRRuJQIxRDB6LEIt uTAtF8ouOLWwGF2bpbec PBsnKYmhTYNvdFO2LCNy oFCgP8WaBTJuTHluEHDj pfm6NzChUr3xhOBhyFhq HWciQ2alyH1gVtN4KGgt R7wbnB3gVFt9EJcoJIEb eQJ2zxM1UZGcoXNuN6Ip xE7jFNDfWY8plod5w3xi UUI5EQmcGKSfNeW2yjW7 NDBccGFyZFxwbGFpblxm xwPpGILvQFMZKoUVx5W7 MQTju7S5TUkphDGtyDDa QTh2aGOyXCSnapJiuvOu RApdSLIekMakJRTpt391 AEGcxcm6MNHvoXEtJIwu UhAuEEuSZ2lzQ7QFJNJc S3BMW7rRB37OLGAFRvSB O1ICVyFuE4hKTBSKMQJI OA2NP2CvZUcCLO8YQKAO DiRSXBrVDXQFBB8nMKXM YJQFPKKug6JwYZQqzL9n bnQpXHBhcn0= Comment (test code = u5sbnHGbUOAssRQ5XgNq 9835) HSQhb7fer4KxyRZjaRTv WGotjKHyejErxz92jTS9 dM64FJ4oSXNrGwF1XJEy mjJ5Ein0OGVpKKPxwPAh M494f7pud8xariVkkCI1 fBmpKBBohqtnImU4RHoj FZAbdrpzZWg0NCqsHIIw zWP1AJKckWGrL0DpXMFg SG6virz0RRY0VTcbHNFx EmC8JUWfxPLzBVMjwZqy ERnda451QUZ7QoFbKQSx tsNeeKexkO8aJzMiEJRT kR85wd9erKSepcPfiJVf Wj3cgFAyUH5jXMIgNXJg SNqbFQBif8HuRFHgQ4An b61wJPEnm4rrnIwkaSV1 hPRxcHWzj1MrM1OeoCMm VVSkODHlq2r2dAGjFPBs thWTBLwnQXagY9UvMQIo Qn9qLUrfLNMaBTYyFSYa RsH0u7HdZOFrAHBAXiAn QvRnDY7hRWQ8uQ2oGGPk dUuobmItlPNkGV6mPZkb z3UkHtdfOLceW3NcSUDz PTyfVEziJPGkewfwa3l4 iIF6qFXjhDC5aDWijRcr ERjkd5ilIZrml5Jqtocq e6Qba9Vqy7IlOBIpsuAu ow7tXL7liESxGJZbODMh NHlqOWAqf4XdIMJqJEQg hvH2rI7dAJbpruTbg277 pemgiMNypnnrnS86LICp suG1lLSyULLsjqXjSUaw A15mp4peKvAgcRZoETXb F13yR5GjhnBllRPhf2Ew ZE0eMZJiYYTfzX4sz4rg FVNeSy0nPSLlDURkynZu cIEaCAD4CTumVAFdPE0z cGFyfQ== Retained/Biomarker m3sxuDEpJEIblZZ3OyYl Testing (test code = LRIde2etg2RbzSApvUAt 9838) KFytbMAcjeNuki36iDJ7 yK42MA7uRFInLxA7JZWp mqW5Ori7PXZlWMTtvITy J427a0gbc7jxazIejDI8 nQqfSVJvpfabMoG0BMtf ZIGuvkspANj5EKvoVRSl pOH7EHJdwAHfW5ZuCWRd KE2ittl3PRL7DMkiVUBw TaM4GJIzyUTsPIPueKky KKkwz115UIM6UsTwSVIu zdItsEllaB0zVbDwNBXP Sbm0IbwoXdDPNDN8QRXr qAIcON9MUCQXTvm4AN5d NNIlgNAhYW9FPEAMKKU3 I7UchRYpTI7BENZOGJas A2lhDPIxDPFVDLPLI4h5 MVNccGFyfQ== Informational Points y1fesKRgUMOnhRAxFdCz (test code = 9836) XDKjQHBwj8coYTRuvWHl ZzEwMzNcZnRuYmpcdWMx JHYlRqBdp4nif588aEVn g2ahOZKoCsA3wHGbOKZp zVMzN109MBTgJZgjs4mg j2EkRJSngVUyb8C9PTSV TOlxOIVWNVw8e4eoCzTj TmV1cMUzHJgeN2skuxXl aQBeKKBrUGe3uR65YIOp fW5woGSnNZmgnzHbGyP8 JGseKWRqBcR7FHHrtLYk GQXtL3klRMIoCTtoUGNm EOlyoCLuXLU0uQnle1U9 bGVzaGVldHtcZjBcZnMy PuAYd3KwJDr1aGdxC0Iw KZDkCrO6fSDuNCFeUOdr BTAkRYPyfmV1hA57DKoc eyE5uUQma9Cry57nc409 yJ2nrMRhPJJ5GRBdAKRs hNDiHKKaZEV1IXTxjIFc K0ghMBUqIO5reoyeRFrz VVtsAIBevPQ6XFAamPQo R9WpCKBoHXnaLAEbsft4 AeZkQb2lzHLkkNvpFQcm r9xit1sawFJqRrf4LFQg RlKnGwbaNTdgm3Qnk8lu CLNaba7yLXH7yMCkiWwl l5D3ySWxHNRmdYEsqzVq ZAGvrg24yMJuwZSoaVNk io5zaiVeiPKzwRVrKXJ5 cHNocnRuXGZldDRcYWVu WJMfP2oqEbGeugEcG4zr X7LtANJdZLImUZIyGrLi xgJti5Jrb6RrtTQlhYu7 r8hoEURfIAUpcTwpg6he HQF5UWDtB7L4dTSnu5fj HYtmQZAeiHL3psV8EWHp fEHrU9HukM5wFAPaME3w xft2c9snAEU3ESxfLTRz GxI8wyL6TQLzrHNdOZGy wGriNMuwv362HEZ3IbKx UNCzr4RvF0LlbJieF55x zKnrR91vEWShcFfnvO8c aGcejR0oRmUvHzZrQGyb bFxwbGFpblxmMVxmczE4 BSgyrzovKFBoTRjiN7sg JjGjWLTakFkfXMflu5Is AZPbRPIkVLkvaONUo20u JGDrn8LfPXOdzA8yfLNe XKonqrLyqLQ3DWqtdvXf BtMgjjCqBBJgnC3cQLOk VZ3fJJSnajKrpn7vkmSn MREsYPIgB1QuwwdjzWwe fgYzNCLrng2ftxAnALX3 KUGKZT1QQICtLYGet93p TZXaxMkzaX6vcPGthsQl FGTfy5WxiU2hyDFJXFNp Y5faLQ7bXTsgv4FxyRRk nPXsxWR0GMBhi0IbFxUt etXibQGgsDIoG1QxvVfp K4aeKZVeVOLsnjUqrUAq y3ZhLMGueDY1bEYzIR6U LvCMb21mEBKiFSRSuaPg JSArqPqvdHM0fdN5iR4i RsPEjWhvASOqy5Otg9Qt T5noVISsOJSqbRZcwOrc mX7iLgEwTiHhRMyrGQ6z KOYsG3svpXWnFXEwNRCn Z1ajVlSkxO4yzOlcHLud ZjJcZnMxOFxsdHJjaFxp VUtsf2ViBQ05s0ZfpdDY wLTjbFN0oT0kh0w9YOvy Yj6qEVWglolxuLtgpF7z IhQeAvAmRDvwEL5dPYNs W6bimNBlBOGkRNRuJ8lv WpGewN9vbMexHCbkIyXb ZnMxOFxpICwgXHBsYWlu XGYxXGZzMThcbGFuZzEw MzNcaGljaFxmMVxkYmNo CYCyHZguL1yvMyXlK7Ql DGMeRAwjgXAyB6flgQZw SsbcYFTWFBO1PXGfJRD4 NKipWVrlyJZ1m44lCNTx gJLbDNo4LSh1SEXkTHvx XGYxXGZzMThcbGFuZzEw MzNcaGljaFxmMVxkYmNo DCSiZWroZ1bxUxGeS7Lf XGZzMThcaSAuXHBsYWlu XGYyXGZzMjJcbGFuZzEw MzNcaGljaFxmMlxkYmNo KQNhPZfpF4goFkDaUxPt MlxwYXJ9 Lab Interpretation (test Abnormal code = 52487-4) MD DonaldsonPathology Biopsy Garkzzzrmctpnb6186-23-28 00:21:10 Test Item Value Reference Range Interpretation Comments Submitted Clinical History a0wcxYGlBRFmu3xfMTG (test code = 02063) mbGFuZzEwMzNcZnRuYm pcdWMxIHtccnRmMVxzc 0BdJ0MxWlLeCWuvcsIq XGRlZmxhbmcxMDMzXGZ 0bmJqXHVjMVxkZWZmMH fvTw4qwAHabYxpZzMaK PZvo4cxpvNTiepqhDh6 o4dyRPDrEqU4cPBuSUu tE8rcicZmjMGfVBTmBK s8dD82LQMwdV1xnDJbN JpzlpLmToA6SRwsZCWt RoA2NHVsqUScMHAjA2v yZWQwXGdyZWVuMFxibH GbFQP0jZukb5T5uRZyj GVldHtcZjBcZnMyMiBO k9RdOFr9xBlcQ8GnDLP aGvB3pIBvVQDrLByhJV VnFPRfevJ1bH16ZNhyz gD3pUTer2Qmk41uy083 nG9mnDCuDQM2HUDwBGS ywLZuTVQbCBM5CGQabC XqY7hmTTSkZV3aujnxU IfrKLfsTXWiiUC7EQTz gJLqJ3PtCPWfLWmiZKE laaj8QqBsIi0nfWEcwK cqRTskp6nba9swoGOqY eh4OSPrPrShGwswNMea g7Yzy1bqLEQksi3dWNZ 8hMLmcTulw3K3zTOdZJ LozOQyelHuLSJpDvE9Z BkrAJ1elx17XTGzXKO0 nk4ecUTfhThmymKwyFW aVCvqT3HvZLVgr542MV OoJ5YvEOYpx8Y9qeFtN xNwUWRcwBA3asV9IKOf UBm0dYOoshA9imYdrCQ rA9ttlI1lQTIwKU5hcd ejr1txPXuoYJtpMVBzu OF3bkC9BDSykRCdM1Nl fY6xWFYaBGbhOHItuli 9KtOrIa7eoTOqqIkwON xzYmtwYWdlXHBnbmNvb nRccGduZGVjXHBsYWlu XHBsYWluXGYwXGZzMjR pkKhkoPprzM1mTnLlAh UuONseVN1dMNTpF7mby YCwNLNzQVPkS7hgImFv xC7coKeqLUcfosOgMH1 wr3XxOVJnQRXtSWcqA3 5yegOwl9HzGW8bj75qe GSsaA0jM0X4SJ8cUSxk SZMlZDB4WNW1DWRvOkL qRU4lHXQefC5ueBtbIK Lojnd3q50iaB2aZ3P2L W07JAnnxLLvlpmrPTom czIyXGxhbmcxMDMzXGh vP9whLxUsJKLcoAxpXF lyh8OkIUPrNKVuEkKnk GFyfX0= Diagnosis (test code = 34) h3amzLLbJQXfsKJ0CsJ sWUJtj0bfr0HxxKAtvO NtLIrimTRuwmQjaj63y OD9iJ96OP3yDRBeCfR3 BTVgzsD8Dzv6ISDlBMI mfXIaE915g9spv8pewy KphMB4BREiYYSsD5UkK U3mFLBlvVFaA23qqGQr BNE9ITAkBFUpwBEuBZO oXRP0JNBmzRXxJ0dkZZ AaIQ8hleqnRMuhESsvQ YMxpSD3OSXwxSCbV7Xe QCLrHDtwWKHfmxz7QhQ sMf9deFSkdSwmWGptBT JkXHBsYWluXGZzMjBcY 8QoNKY9KWuzJpEnqUKu cnoqNQTqVgIfrEuye8J rKN0bFAQiABPctR7ki1 q4YYFojjqmpGxnDLsoe J72EaNjX2VzFRDKY5bP SVZFIEZPUiBDQVJDSU5 HHGMxQUZBCdGMU0EJEo RkK8zBVKAEFKJZR6FIF F9EPXGCRONSWyVyM3TD G9LJZNPDLrABRm9NHR5 cBCWUYAAQD70GXZ4UZD xwYXJccGFyZFxwYXIgQ tOHN8YOIYnuLXQ2 Comment (test code = 9835) d9lwwEFaOTYgkHU6TxQ jOVIrg4qsi5UpqYRpiJ EyAWehzRTkktNvtb90s NN8dZ83OA9gSPNxMhT8 HJYwyrH0Dgu6RRKsKJV ktRKnT362x7whm9sjsd QcoCG1eZhaMWPtkpozQ jM7ICifMGFtrquhPFv0 IFtnXUJazFG2YILrwXQ vZ0TnIAIsKF9hosk8QU Z6XGekKOBvWcO1WZXme PUpWHKdxGbhKOhuo769 HNR4BiZnKRTmuzBreDy aqC8cSvBxLHZLeN81st 4etZD6r7JoMR1yS6JvV ZD3WNxbxhOowjRqnLAk Tl4kbCMpCLHaEYSvbX5 0CYDbBSHjDC5szXYbhV ljIGNlbGxzIHRvIGJlI ALqg7v6rWSqXGKtmqGd nYEsf8BoPNTvrhM3VOb wYXRjaHkpLCBQQVgtOC gxjQI5PQwbtCZubhobY TCoPxI4y8RkAKQcKJDk UPSqONOiFB78AI82WRL hZLxkzdOjk4xaqzgoNY AJQXk4ZYWaSX7pGCZpF OIkFVdcUD2oRFBFZNc8 SVHsVT7hZIRwLBIjLFZ dMFZ1ve3wNmteCZPhFM JgbBT3z3mwR1eoMNVcA CGzwD51xg0yhUG7m2Bg IS7fB2HwICNzauDkrxy zIGFyZSBpbiBrZWVwaW 5nIHdpdGggdGhlIGFib 2OcQMOzRIthe1Qkgn5x XHBhcn0= Gross Description (test a3hxpCUxSSKumQDFMDt code = [id number]) wMFxhbnNpXHNwbHRwZ3 AgzsvvNLsaYB0rCK9qe XgfkRDieWAjBE8HGOHo ZmYxXHBhcGVydzEyMjQ nKEEdgVTghVU2JVNxBJ 1hcmdsMTgwMFxtYXJnc oX6AIQeiPAwT9ZoBZVa NT0uczydRNL5XGsnoU3 jmsTCHuxbPz2ioXMvkX tcZjFcZmNoYXJzZXQwX XDwfMyyLPXgMBk9vR3C EtwzJ54bm9N2Vqt3AII dEXKbR9McOF1uMNQdvL ZrO53AWydgHCG8ZYUZF zqcCLUqIG9Lx9jhBQJe sEOmUFL5VUdxuHGaFUY lOGPrVWj3UKZcNNbhpB UhKD3foPpmJtlooXsjt 2VjdCBcXGlkIDUxMDAy KNqqNQMuND8LJdUcJAS iDFNeHMPgMEq9ZDm8NW 5ZGdMeXLYmOHHvKoe4N rZeBAr4SZfpBR5YKCp8 QzM4FnOkCZD1GCN8MUQ cXHQgMiBcXGYgQXJpYW wgXFxmcyAxMCBcXGZiI RxmTpqgUGrpA35zlQtg gB0kDtcypeItGEB6SAE hciANClxwbGFpblxlcG ljTmVzdERvYzEgDQpcb HRycGFyXGxpbjBccmlu MCANClxsdHJjaFxiXGN mMVxmczIwIExlZnQgcG VsdmljIHNvZnQgdGlzc 8CeWV3sUGVxZRBnbD9r d2wtg4p7bOFbdZ3zCPO rZXJzOlxiMFxjZjAgIE 29zRJecLvaKTPnvz59n Xb9VCSyr8FhHECeo7Sq rKKnMX4gZDP8ytkdBkI xLjQgeCAwLjUgeCAwLj AfO14juE0eQDirueJkY XRlLCBlbnRpcmVseSBz wXKbyMA1NWVfuH7tDXT uICBccHJvdGVjdHtcZm musJG7FUirBwbpiK8pm CBIWVBFUkxJTksgbmFt LQ8JTB9JEnTGIW04EiM aVJM1PXoTX8ULlWU9Le v0IAy4xAcdEwtwyeJxs SCuMjPTgV0RTPekSolv xYM4EOudGjrxrR8hlLY IWVBFUkxJTksgbmFtZT 9SLP5VWD6PeHOyXFY5y TR4TSLCVeomdJG9iGQ8 fL95CAPbLTZqxULfPGb jR347TVKnUNhfYAy2vd NoXGZzMjAgDQpcZXBpY 86qo7YMu4MvEJPjh7wn kXkyz1QrkOEeWGngQTB npCMxKPkyjI9uVoZjz4 oduAh1KZllyzW9LNHlb q9mhSmepA3fNAjxb8fp DUO0NLIjjCGmzHNzEAq iwTxnlC5fKlGeYfq5CN zxWAKlQ7XyY6BaomX2Y HBsYWluXGZzMTYgDQp9 Biomarker Block(s) (test v9ugoCOmDYHloNH8LzD code = 9841) xWZCld3pjz9GnuTFzgK XyLYhweUFtrsHvpp78w EN3pS71KZ9tDGYzFbR6 ZYRbysF0Wvl1FYJaKHO jhAGlD368u9okh1tviq QkhEP1rCpwMREclfsoN xT2BLriTBVqvgbqPFo8 ENmmLPWzeYU8XGPdiSA nK7HkGTYyAS7goeh7EO R2JAjiOFHfIuW9CRWvf PAbOXTxtOexECisb505 RHT3WbLaRGKjstEosRb tsE0mHqPsZTRCAgFBNE ucMRMcDxaxDv8YJRZln lxwYXJ9 Disclaimer (test code = q8vciMYaEDWmgURnVrD 9844) sKHQrSYQqz1ngCBLmrH FuZzEwMzNcZnRuYmpcd CXsNYUxFvTtj2dqy602 aUHxj5eaAXHlDxJ9yUT zAJColBHxJ630GVXpHE cgq1fdf0RuCQDmeKReg 0S2CIILmfrayMp9bFgd V28gq5T1HpxxV6eiWID hQRFhI3WjYD4xAIIlJw m0XJB5RSR9ETFcNOInR 4XxZR0lFFScbYSjJUl3 d3ztzLffKIAeWYS7m7q nZRnrzqKiQP2vbg4fsB u2m7eciqCcEPSaIHOqb YUUPHPoP0XonJaoWd4j jXo4nLlaImyhPOH5Guy 7IP6jiy13pfl1xMlxIG SsbatkMkM2JXplCIYtf ilzOKj2JPovOHAqeAH8 MUQrqJAnE0EnDAOxBC6 hbdx6OJJ7YJeiSQAtRm U9LERvwRLcUMBjzNlmC Cufx623VBA4PkHtHL3n G7Lqa4O0aP6fkDHtCAA uzWHfZkUsOTZvzi3gcT NgMGpkc5UsFRQ7ydC8g EZwdBIeTPNbXD81Aedi e3MaHixgNTR0YYRfqtK ve9Jmm2orGjKodyIzZ7 vgP7TqWRSeETExYFQgF sLapzMsx4Sos4BgiNPc zUf3z3fpBRVkEEPwgUw hi1npKAR5RQHuE5M9lZ Eer2cnTZizAXVttVQ6x xU7NCMjmYPnS7UdmA0z WKOrWE2vcbs2f8kdWXG 7CDryMKCoWbR1ejU5MB BcaGVhZGVyeTcyMFxmb 953AQP7KsItRPJvn2Ta C3NafJcdO61zoVjjQ32 lGSSxsDnbzC4wjBiqvT 5cZjBcZnMyNFxxbFxwb CKattghWPfcgeS5XVpb eloaCCIqFBdgQ6ocFsE iUNZutHztASfxv3TlSE ZaUJIqJylzjhW4VLMKf 89nTNDzq5PyBIKgoH4h aAEwJOvxpwRosDF8DSn hdmUgYmVlbiBkZXZlbG 8vPNWmGP6rGGMbfeUao g0ysfTrXXTeHYTbF0Qh cmlzdGljcyBkZXRlcm1 akrXqIIN7ANAEZF8UOY IdPUApv48yKEIroSxhw Z5zvMVklsFgNFTwa4Ym iA1umMJGJAOiK8xzRC5 sYMfuz1SzwATzbGInnL O0UJOrt5UtWvKrqbXnc IVpmXNsK6KplEcpQ1qf THWxJBKyahXemTYwc7Y cVSOamEF0aCYkFY3IDv UFo07cIVWkWKYTylJqH JRqjIvcbYF6njY5kG2k LiBJZiBhcHBsaWNhYmx bUCTnj495mo5anuT8FZ VuGOYnejjfb1PoSQPxY PTplS63YILwTRMqkw2c vwllcLZcjxPyE1Yrbmf 9oB3kCMKlFJskLPXcMQ ZzMjJcbGFuZzEwMzNca GljaFxmMVxkYmNoXGYx SJleT4fgMyZgWiXbOws wYXJ9 MD DonaldsonLA MSI by PCR Material [id number] 19:36:01 Test Item Value Reference Range Interpretation Comments Archived Material Previously diagnosed (test code = 55698) [facility] were selected for molecular analysis. Results will be reported separately. [facility] [id number] 13:57:27 Test Item Value Reference Range Interpretation Comments POC Crea (test code 0.9 mg/dL 0.6-1.3 Medicati ons, especially = 51737-3) hydroxyurea or supplements, castro ch as ascorbate, can interfere with test resul ts causing a false ly and significantly h igher result than exp ected. If a problem is castro spected with a patient' s result, a sample should be sent to the laborato for confirmatory te sting. Method descript ion: [...] Normal eGF R >= 60 code = 49502-4) mL/min/1.73 m2 The eGFR is calculated u sing the CKD-EPI equatio n. The eGFR declines w ith age. eGFR <60 mL/min /1.73 m2 is considered a s "decreased" Thi s equation should only be used for patien ts 18 and older. Tami ureña to the [employer]'s Ki dney [...] Normal eG FR >= 60 code = 45724-8) mL/min/1.73 m2 The eGFR is calculated u sing the CKD-EPI equatio n. The eGFR declines w ith age. eGFR <60 mL/min /1.73 m2 is considered a s "decreased" Thi s equation should only be used for patien ts 18 and older. Valeriain g to the [employer]'s Ki [...] [facility] code = 41976) [facility] son, [id number] [facility], [place], [place] [address]; Point of Care Lab Dir foreign: MD MD Mendoza [facility]BA[facility] [id number] 08:35:00 Test Item Value Reference Range Interpretation [...] PATIEN TS. CBC W/PLT COUNT & AUTO [id number] 08:10:00 Test Item Value Reference Range Interpretation [...]
[2021-12-08] MEDS ORDERED: HYDROCODONE/APAP 7.5/325 MG TAB ONE (21:09)
[2021-12-08] MEDS ORDERED: METHYLPREDNISOLONE 125 MG INJ ONE (21:09)
[2021-12-08] MEDS ORDERED: KETOROLAC 30 MG/ML INJ ONE (21:12)
[2021-12-08 21:40] LABS: Urine Blood Trace-lysed (Negative); Urine Glucose Negative (Negative); Urine Protein Negative (Negative); Urine pH 6.5 (5.0-7.0)
[2021-12-08 21:44] LABS: Absolute Lymphocytes (CBC) 1.8 K/uL (0.7-4.9); Hematocrit 41.1 % (36.0-45.0); Lymphocytes % 31.8 % (15.3-44.8); MPV 8.1 fL (7.6-11.3); RBC Red Blood Cell Count 4.74 M/uL (3.86-4.86)
[2021-12-08 22:06] LABS: Albumin 3.6 g/dL (3.4-5.0); Bilirubin Total 0.9 mg/dL (0.2-1.0); Potassium 3.9 mmol/L (3.5-5.1); Protein, Total 7.7 g/dL (6.4-8.2)
--- NOTE | 2021-12-08 22:11 | RAD REPORT ---
EXAM DESCRIPTION: CT - Spine Lumbar Wo Con - 12/08/2021 9:44 pm CLINICAL HISTORY: Low back pain radiating down right leg COMPARISON: None. TECHNIQUE: Thin section axial imaging of the lumbar spine was performed. Sagittal and coronal recon struction images were generated and reviewed. All CT scans are performed using dose optimization technique as appropriate and may include automated exposure control or mA/KV adjustment according to patient size. FINDINGS: Lumbar bodies are normal in height and normal in AP alignment. Minimal right convex curvat ure is seen to the upper and mid lumbar spine. T12-L1 disc level is narrowed with degenerative gas in the disc space. No herniation or significant d isc bulge. Facet joint degenerative change present on the left. L1-L2 disc levels shows loss in height. No herniation or significant disc bulge. Facet degenerative c hange present along with minimal ligamentous thickening. No canal or foramen stenosis. L2-3 level shows prominent facet joint degenerative change. Left foraminal disc bulge is present with out significant foraminal stenosis. No central spinal stenosis. L3-4 disc level shows very advanced facet joint degenerative change with calcified ligaments. Circumf erential disc bulge is present more prominent in the left exit foramen. No central spinal stenosis pr esent. Only mild foraminal stenosis changes are present, worse on the left. L4-5 disc levels show significant loss in disc height with degenerative gas in the disc space. No emely tral spinal stenosis. Facet degenerative change present. No left foraminal stenosis. Disc bulge and e ndplate spurring changes cause right foraminal stenosis. L5-S1 disc level shows no herniation or significant disc bulge. No canal or foramen stenosis. Facet j oint degenerative changes are present. Sclerotic degenerative changes are present at the SI joints. No sacral ala fractures. No pathologic o r destructive bone process. Approximately 4.8 centimeter upper pole right renal cyst is present. A 4 centimeter low attenuation mass anterior mid left kidney is also most likely simple cyst. IMPRESSION: Multilevel degenerative disc disease seen in the lumbar spine. L4-5 right foraminal sten osis is present and may be a source for the right lower extremity radiculopathy. No fracture or pathologic bone process identified.
--- NOTE | 2021-12-09 02:09 | EDPHYS ---
Physician Documentation [facility] Name: Misa Claros Age: 71 yrs Sex: Female : 1950 Arrival Date: 12/08/2021 Time: 19:35 Bed 26 Private MD: ED Physician Sean Velazquez HPI: 12/09 07:26 This 71 yrs old Black Female presents to ER via Ambulatory with complaints of Leg Pain. kdr 07:26 The patient presents with decreased range of motion, pain. The complaints affect the . kdr Context: the patient can partially bear weight. Treatment prior to arrival includes: no previous treatment. Severity of symptoms: At their worst the symptoms were mild, moderate. The patient has not experienced similar symptoms in the past. Historical: - Allergies: 12/08 20:22 Codeine; vc1 20:22 Morphine; vc1 - Home Meds: 20:22 levothyroxine 25 mcg tab 1 tab once daily [Active]; metoprolol tartrate 25 mg Oral tab vc1 1 tab 2 times per day [Active]; pravastatin 20 mg Oral tab 1 tab once daily [Active]; spironolactone 25 mg Oral tab 1 tab once daily [Active]; - PMHx: 20:22 Back pain; Hypertension; sciatica; uterine cancer; diagnosed a year ago; vc1 - Immunization history:: Adult Immunizations up to date, Client reports receiving the 2nd dose of the Covid vaccine, Flu vaccine is not up to date. - Social history:: Smoking status: Patient denies any tobacco usage or history of. ROS: 12/09 07:26 Constitutional: Negative for fever, chills, and weight loss, Eyes: Negative for injury, kdr pain, redness, and discharge, Neck: Negative for injury, pain, and swelling, Cardiovascular: Negative for chest pain, palpitations, and edema, Respiratory: Negative for shortness of breath, cough, wheezing, and pleuritic chest pain, Abdomen/GI: Negative for abdominal pain, nausea, vomiting, diarrhea, and constipation, Back: Negative for injury and pain, : Negative for injury, bleeding, discharge, and swelling, Skin: Negative for injury, rash, and discoloration, Neuro: Negative for headache, weakness, numbness, tingling, and seizure activity. Psych: Negative for depression, anxiety, suicide ideation, homicidal ideation, and hallucinations, Allergy/Immunology: Negative for hives, rash, and allergies, Endocrine: Negative for neck swelling, polydipsia, polyuria, polyphagia, and marked weight changes, Hematologic/Lymphatic: Negative for swollen nodes, abnormal bleeding, and unusual bruising. Exam: 07:30 Constitutional: This is a well developed, well nourished patient who is awake, alert, kdr and in no acute distress. Head/Face: Normocephalic, atraumatic. Eyes: Pupils equal round and reactive to light, extra-ocular motions intact. Lids and lashes normal. Conjunctiva and sclera are non-icteric and not injected. Cornea within normal limits. Periorbital areas with no swelling, redness, or edema. Neck: Trachea midline, no thyromegaly or masses palpated, and no cervical lymphadenopathy. Supple, full range of motion without nuchal rigidity, or vertebral point tenderness. No Meningismus. Chest/axilla: Normal chest wall appearance and motion. Nontender with no deformity. No lesions are appreciated. Cardiovascular: Regular rate and rhythm with a normal S1 and S2. No gallops, murmurs, or rubs. Normal PMI, no JVD. No pulse deficits. Respiratory: Lungs have equal breath sounds bilaterally, clear to auscultation and percussion. No rales, rhonchi or wheezes noted. No increased work of breathing, no retractions or nasal flaring. Abdomen/GI: Soft, non-tender, with normal bowel sounds. No distension or tympany. No guarding or rebound. No evidence of tenderness throughout. Back: No spinal tenderness. No costovertebral tenderness. Full range of motion. Skin: Warm, dry with normal turgor. Normal color with no rashes, no lesions, and no evidence of cellulitis. MS/ Extremity: Pulses equal, no cyanosis. Neurovascular intact. Full, normal range of motion. Neuro: Awake and alert, GCS 15, oriented to person, place, time, and situation. Cranial nerves II-XII grossly intact. Motor strength 5/5 in all extremities. Sensory grossly intact. Cerebellar exam normal. Normal gait. Psych: Awake, alert, with orientation to person, place and time. Behavior, mood, and affect are within normal limits. Vital Signs: 12/08 20:19 BP 130 / 107; Pulse 97; Resp 18; Temp 97.9; Pulse Ox 100% on R/A; Weight 98.43 kg; vc1 Height 5 ft. 4 in. (162.56 cm); Pain 10/10; 23:03 BP 109 / 82; Pulse 89; Resp 20; Pulse Ox 100% ; sf1 12/09 02:59 BP 111 / 73; Pulse 59; Resp 20; Pulse Ox 99% ; 1 12/08 20:19 Body Mass Index 37.25 (98.43 kg, 162.56 cm) vc1 MDM: 02:09 Patient medically screened. kdr 07:30 Data reviewed: vital signs, nurses notes, lab test result(s), radiologic studies. kdr Counseling: I had a detailed discussion with the patient and/or guardian regarding: the historical points, exam findings, and any diagnostic results supporting the discharge/admit diagnosis, lab results, radiology results, the need for outpatient follow up. 12/08 20:57 Order name: CMP kdr 12/08 20:57 Order name: CBC with Diff kdr 12/08 20:57 Order name: CT Lumbar Spine Wo Con; Complete Time: 01:37 kdr 12/08 20:58 Order name: Comprehensive Metabolic Panel; Complete Time: 01:37 EDMS 12/08 20:58 Order name: CBC with Automated Diff; Complete Time: 01:37 EDMS 12/08 21:40 Order name: Urine Dipstick-Ancillary; Complete Time: 01:37 EDMS 12/08 20:57 Order name: Urine Dipstick-Ancillary (obtain specimen); Complete Time: 21:51 kdr Administered Medications: 12/08 21:25 Drug: Ketorolac 15 mg Route: IVP; Site: right antecubital; ss7 21:27 Drug: [place] (HYDROcodone-acetaminophen) (7.5 mg-325 mg) 1 tabs Route: PO; ss7 21:28 Drug: SOLU-Medrol (methylPrednisoLONE) 125 mg Route: IVP; Site: right antecubital; ss7 Disposition Summary: 12/09/21 02:09 Discharge Ordered Location: Home kdr Problem: an ongoing problem kdr Symptoms: have improved kdr Condition: Stable kdr Diagnosis - Pain in right leg kdr - Pain in right knee kdr Followup: kdr - With: Private Physician - When: 2 - 3 days - Reason: If symptoms return, Further diagnostic work-up, Recheck today's complaints, Continuance of care, Re-evaluation by your physician Discharge Instructions: - Discharge Summary Sheet kdr - Musculoskeletal Pain kdr - Acute Knee Pain, Adult kdr - Acute Knee Pain, Adult, [id number] kdr - Heat Therapy, [id number] kdr Forms: - Medication Reconciliation Form kdr - Thank You Letter kdr - Antibiotic Education kdr - Prescription Opioid Use kdr Prescriptions: - tramadol 50 mg Oral tablet - take 1 tablet by ORAL route every 4-6 hours as needed; 16 tablet; Refills: 0, kdr Product Selection Permitted - Ibuprofen 600 mg Oral Tablet - take 1 tablet by ORAL route every 6 hours As needed take with food; 30 tablet; kdr Refills: 0, Product Selection Permitted - Medrol ([place]em) 4 mg Oral Tablets, Dose Pack - take 1 tablet by ORAL route as directed - follow package instructions; 1 kdr packet; Refills: 0, Product Selection Permitted - Cyclobenzaprine 5 mg Oral Tablet - take 1 tablet by ORAL route 3 times per day As needed; 15 tablet; Refills: 0, kdr Product Selection Permitted Signatures: Dispatcher [employer] Sean Hamilton MD MD kdr Radha Baez, RN RN vc1 Vania Grant RN RN ss7
--- NOTE | 2021-12-09 02:09 | ER ---
Nurse's Notes [facility] Name: Misa Claros Age: 71 yrs Sex: Female : 1950 Arrival Date: 12/08/2021 Time: 19:35 Bed 26 Private MD: Diagnosis: Pain in right leg;Pain in right knee Presentation: 12/08 20:19 Chief complaint: Patient states: Patient states," Last night my leg started hurting, I vc1 had to keep turning from side to side. 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 Coronavirus screen: Vaccine status: Patient reports receiving the 2nd dose of the covid vaccine. Pfizer, no booster At this time, the client does not indicate any symptoms associated with coronavirus-19. Ebola Screen: No symptoms or risks identified at this time. Initial Sepsis Screen: Does the patient meet any 2 criteria? HR > 90 bpm. No. Patient's initial sepsis screen is negative. Does the patient have a suspected source of infection? No. Patient's initial sepsis screen is negative. Risk Assessment: Do you want to hurt yourself or someone else? Patient reports no desire to harm self or others. Onset of symptoms was December 07, 2021. 20:19 Method Of Arrival: Ambulatory vc1 20:19 Acuity: VINOD 3 vc1 Triage Assessment: 20:23 General: Appears in no apparent distress. Behavior is calm, cooperative, appropriate vc1 for age. Pain: Complains of pain in right gluteus keiry and right leg Pain radiates to right hip, right hamstring, posterior aspect of right knee, right calf and right Achilles Pain currently is 10 out of 10 on a pain scale. Aggravated by sitting for too long. Historical: - Allergies: 20:22 Codeine; vc1 20:22 Morphine; vc1 - Home Meds: 20:22 levothyroxine 25 mcg tab 1 tab once daily [Active]; metoprolol tartrate 25 mg Oral tab vc1 1 tab 2 times per day [Active]; pravastatin 20 mg Oral tab 1 tab once daily [Active]; spironolactone 25 mg Oral tab 1 tab once daily [Active]; - PMHx: 20:22 Back pain; Hypertension; sciatica; uterine cancer; diagnosed a year ago; vc1 - Immunization history:: Adult Immunizations up to date, Client reports receiving the 2nd dose of the Covid vaccine, Flu vaccine is not up to date. - Social history:: Smoking status: Patient denies any tobacco usage or history of. Screenin:04 Abuse screen: Denies threats or abuse. Nutritional screening: No deficits noted. sf1 Tuberculosis screening: No symptoms or risk factors identified. Fall Risk None identified. Vital Signs: 20:19 BP 130 / 107; Pulse 97; Resp 18; Temp 97.9; Pulse Ox 100% on R/A; Weight 98.43 kg; vc1 Height 5 ft. 4 in. (162.56 cm); Pain 10/10; 23:03 BP 109 / 82; Pulse 89; Resp 20; Pulse Ox 100% ; sf1 12/09 02:59 BP 111 / 73; Pulse 59; Resp 20; Pulse Ox 99% ; sf1 12/08 20:19 Body Mass Index 37.25 (98.43 kg, 162.56 cm) vc1 ED Course: 12/08 19:35 Patient arrived in ED. wm 20:22 Triage completed. vc1 20:25 Arm band placed on right wrist. vc1 20:48 Sean Velazquez MD is Attending Physician. kdr 21:29 CMP Sent. ss7 21:29 CBC with Diff Sent. ss7 21:29 Comprehensive Metabolic Panel Sent. ss7 21:29 CBC with Automated Diff Sent. ss7 21:29 Inserted saline lock: 22 gauge in right hand, using aseptic technique. ss7 21:44 CT Lumbar Spine Wo Con In Process Unspecified. EDMS 21:50 Aniyah Monterroso RN is Primary Nurse. sf1 Administered Medications: 21:25 Drug: Ketorolac 15 mg Route: IVP; Site: right antecubital; ss7 21:27 Drug: [place] (HYDROcodone-acetaminophen) (7.5 mg-325 mg) 1 tabs Route: PO; ss7 21:28 Drug: SOLU-Medrol (methylPrednisoLONE) 125 mg Route: IVP; Site: right antecubital; ss7 Outcome: 12/09 02:09 Discharge ordered by . kdr 02:59 Patient left the ED. sf1 Signatures: Dispatcher [employer] EDMS Sean Velazquez MD MD [facility] Rosalie Boone Radha Baez RN RN vc1 Aniyah Monterroso, RN RN sf1 Vania Grant, RN RN ss7
[2021-12-09 06:40] VITALS: TEMP 97.9
[2021-12-09 06:43] VITALS: BP 111/73; O2SAT 99
== END 2021-12-09 02:59 | disposition home or self-care (01) ==
LOC: ER 19:30
DX: M25.561 Pain in right knee (principal); I10 Essential (primary) hypertension; Z85.42 Personal history of malignant neoplasm of other parts of uterus; Z88.5 Allergy status to narcotic agent
CPT/HCPCS: 85025; 36415; 81003; 80053; 72131; 96375; 96374; 99284; J2930

== ENCOUNTER 2022-01-10 03:10 | Emergency (ER) | payer OTHER ==
--- OUTSIDE RECORDS SUMMARY | 2022-01-10 03:15 | XMS REPORT | Clinical Summary ---
:1950 Author Organization [facility] MD [facility] Address [address] [place] [address] Care Team Providers Name Role Phone Deonna Leiva MD Primary Care Provider Rogerio Pritchett" Unavailable Malena Chavez MD Unavailable Jeremie Dobson MD Unavailable Allergies Active Allergy Reactions Severity Noted Date Comments Codeine GI Intolerance Medium 11/08/2016 Nausea and vo miting sometime. Fruit Punch Flavor Hives, Itching High 11/21/2016 Allergy to most Fruits with seeds, strawber xiomy, etc..... Morphine GI Intolerance Medium 11/24/2016 Nausea and vo miting sometime. Naloxone GI Intolerance 11/24/2016 Opium GI Intolerance 11/24/2016 Medications Medication Sig Dispensed Refills Start End Date Status Date pravastatin Take 1 tablet 0 Acti ve (PRAVACHOL) 20 mg by mouth 1 tablet daily. ondansetron (ZOFRAN) Take 1 tablet 0 Active 4 mg tablet by mouth as 1 needed. levothyroxine Take 1 tablet 0 Ac tive (SYNTHROID, by mouth 1 LEVOTHROID) 25 mcg daily. tablet famotidine (PEPCID) Take 1 tablet 0 Active 20 mg tablet by mouth 1 daily. metoprolol tartrate Take 1 tablet 60 tablet 3 Active (LOPRESSOR) 25 mg (25 mg) by 2 tabletIndications: mouth twice Cardiomegaly, daily. Coronary artery disease due to calcified coronary lesion Eliquis 5 mg tablet Take 1 tablet 0 Active by mouth 2 twice daily. Entresto 24-26 mg Take 1 tablet 0 Active tab per tablet by mouth 2 twice daily. furosemide (LASIX) Take 1 tablet 0 Active 20 mg tablet by mouth 2 daily. spironolactone Take 1 tablet 0 A ctive (ALDACTONE) 50 mg by mouth 2 tablet daily. pregabalin (Lyrica) Take 1 60 capsule 1 Active 25 mg capsule (25 2 capsuleIndications: mg) by mouth Chronic pain twice daily. aspirin 81 mg EC Take 81 mg by 0 11/16/19 Discontinued tablet mouth daily. 22 Reported on 01/24/2017 acetaminophen Take 650 mg 0 12/24/19 Disc ontinued (TYLENOL) 325 mg by mouth 22 (Th erapy tablet every 6 (six) comple elena) hours as needed for mild pain. DIGOXIN ORAL Take 125 mg 0 11/16/19 Disco ntinued by mouth 22 daily. amLODIPine (NORVASC) Take 5 mg by 0 Discontinued 5 mg tablet mouth twice 22 daily. triamterene-hydroCHL Take 1 tablet 0 03/23 Discontinued OROthiazide by mouth 21 (Not Ana licable) (MAXZIDE-25) 37.5 every mg-25 mg per tablet morning. losartan (COZAAR) 50 0 12/08/19 Discontinued mg tablet 0 22 (Therapy completed) clopidogrel (PLAVIX) Take 1 tablet 0 12/07 Discontinued 75 mg tablet by mouth 1 22 (Therap y daily. completed) spironolactone Take 1 tablet 0 12/08/19 D iscontinued (ALDACTONE) 25 mg by mouth 1 22 (D ose tablet daily. adjustment ) sulfamethoxazole-tri Take 1 tablet 0 11/16 Discontinued methoprim (BACTRIM by mouth 1 22 DS) 800 mg-160 mg daily. per tablet traMADol (ULTRAM) 50 Take 1 tablet 0 12/07 Discontinued mg tablet by mouth as 1 22 (Therapy needed. completed) ergocalciferol 50,000 Units 0 11/16/19 Di scontinued (DRISDOL) 50,000 every 30 1 22 units capsule (thirty) days. TURMERIC ORAL Take 1 tablet 0 12/08/19 Di scontinued by mouth 22 (Therapy daily. completed) ondansetron (Zofran) Take 1 tab 30 tablet 3 12/24/19 Discontinued 8 mg every 8 hours 2 22 tabletIndications: on days 2, 3, Neoplasm, malignant and 4 of endometrium following chemotherapy, then may take 1 tab every 8 hours as needed for nausea or vomiting. prochlorperazine Take 1 tablet 30 tablet 3 12/24/19 Discontinued (Compazine) 10 mg (10 mg) by 2 22 tabletIndications: mouth every 6 Neoplasm, malignant (six) hours of endometrium as needed for nausea or vomiting. traMADol (ULTRAM) 50 50 mg every 6 0 12/23 Discontinued mg tablet (six) hours 2 (Therapy as needed. completed ) HYDROcodone-acetamin Take 1 tablet 90 tablet 0 01/01 Discontinued ophen (NORCO) 5 by mouth 2 (The rapy mg-325 mg per every 8 comple elena) tabletIndications: (eight) hours Chronic pain as needed for severe pain. Active Problems Patient Care Coordination Note Formatting of this note might be differe nt from the original. Please call patient with all appointment dates and times, does not use [employer] ([employer] Problem Noted Date Paroxysmal atrial fibrillation 12/13/2021 Last Assessment & Plan: Patient has a history of atrial fibrilla tion she is likely persistent versus chronic with EKG done today showing well controlled atrial fibrillation in the 80s. Continue metoprolol tartrate 25 mg p.o. twice daily but long-term anticoagulatio n with Eliquis 5 mg p.o. twice daily with a [id number] score 4 (age, gender, CHF, HTN) Nonischemic congestive cardiomyopathy 12/13/2021 Last Assessment & Plan: Patient has a history of a echocardiogra m done 11/21/2021 that showed an ejection fraction of 23% for which patient underwent a left heart catheterization showing no acute coronary disease. Patient pre sented with a echocardiogram from [facility] that showed ejection fraction of 10 to 15% patient is on good medical management with Entresto 24-26 mg tablet twice daily, spironolactone 50 mg p.o. d aily with recommendation to continue cur rent regimen. Discussed with patient the increased risk of sudden cardiac her low ejection fraction and the recommendation for LifeVest prior to reevaluati on to permanent ICD implant for which beto sumner declined. Patient is already had this discussion with her private hardware trainer concerning a permanent ICD implant and knows she would need a follow-up appo intment within 3 months. Patient states she elected to have her further management with her local hardware trainer. 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 Continue pravastatin 20 mg p.o. daily. Other specified polyneuropathy 04/25/2017 Essential (primary) hypertension 11/08/2016 Overview: BP Readings from Last 3 Encounters: 11/21/16 149/79 11/08/16 (!) 180/96 Last Assessment & Plan: Well-controlled blood pressure at 100/70 in clinic. Patient reports blood pressures in the 110s to 120s at home. Continue medical management on Entresto 24-26 mg tablet p.o. twice daily, metoprolol ta rtrate 25 mg p.o. twice daily and spiron olactone 50 mg daily. Morbid (severe) obesity due to excess calories 017 Overview: 11/21/2016 Body mass index is 41.48 kg/(m^2). Weigh t: (!) 106.2 kg (234 lb 2.1 oz) [place] body weight: 52.4 kg (115 lb 7.7 [...] Resolved Problems Problem Noted Date Resolved Date Preoperative cardiovascular examination 12/13/2021 01/01/2022 Last Assessment & Plan: Patient is planned to undergo resection of her peritoneal implants. Patient has known nonischemic cardiomyopathy with ejection fraction of 23%. She is on goal- directed medical management for cardiomyo sachin and on exam she does not exhibit a ny evidence of decompensated heart failure. Patient does not report any chest pain and on EKG she is in rate controlled atrial fibrillation of 83 bpm. After dis cussion with cardiology attending taye larsen is a moderate risk to go forward with her planned procedure or chemotherapy no further cardiac work-up is recommended. Cardiology service is available inpatient if needed. History of malignant neoplasm of endometrium 01/09/2019 10/28/2021 Encounters Date Type Specialty Care Team Description 01/05/2022 Procedure visit Pain Medicine Nolberto Israel p ain (Primary Dx); MD Penelope Lumbar facet juan int pain <Unspecified low back pain>; Sacroiliitis; Cancer associat ed pain 01/05/2022 Travel 12/30/2021 Telemedicine Gynecology Deonna Leiva Neoplasm, ma lignant of endometrium (Primary Dx); MD Viraj Metastatic canc er to the peritoneum; Nonischemic con gestive cardiomyopathy 12/30/2021 Ancillary Procedure Radiology Christian Auguste, Jhoan asm, malignant of endometrium; PA Metastatic canc er to the peritoneum 12/30/2021 Ancillary Procedure Radiology Christian Auguste, Jhoan asm, malignant of endometrium; PA Elevated total bilirubin 12/30/2021 Travel 12/29/2021 Telephone Pain Medicine Kathleen Emanuel RN 12/28/2021 Orders Only Gynecology Christian Auguste, Neoplasm, ma lignant of endometrium (Primary Dx); PA Metastatic canc er to the peritoneum 12/26/2021 Orders Only Gynecology Christian Auguste PA 12/26/2021 Telephone Pain Medicine Kathleen Emanuel RN 12/26/2021 Orders Only Pain Medicine Nolberto Israel MD 12/23/2021 Office Visit Pain Medicine Nolberto Israel Chronic pain (Primary Dx); MD Penelope Acute back pain with sciatica <Right side>; Neoplasm, malig nant of endometrium 12/23/2021 Office Visit Gynecology Christian Auguste, Neoplasm, ma lignant of endometrium (Primary Dx); PA Metastatic canc er to the peritoneum; Elevated total bilirubin 12/23/2021 Travel 12/21/2021 Documentation Cardiology Carlos Bradley RN 12/16/2021 Telemedicine Gynecology Christian Auguste, Neoplasm, ma lignant of endometrium (Primary Dx); PA Metastatic canc er to the peritoneum 12/13/2021 Hospital Encounter Cardiology Juanito Grant atrial BETO Rich[place] fibrillation 12/13/2021 Follow-Up Cardiology Angel Nash, Nonischemic congestive cardiomyopathy (Primary Dx); Coronary artery disease due to calcified coronary lesion; Geovanna Grant ca rdiovascular examination; BETO [place] Paroxysmal atri al fibrillation; Essential (prim vinod) hypertension 12/13/2021 Travel 12/12/2021 Telephone Gynecology Christian Auguste PA 12/07/2021 Telemedicine Gynecology Deonna Leiva Neoplasm, ma lignant of endometrium (Primary Dx); MD Viraj 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 Christian Auguste PA 12/02/2021 Telephone Gynecology Dorinda Vasquez RN 11/28/2021 Hospital Encounter Cardiology Angel Nash Cardio megaly (Primary Dx); Coronary artery disease due to calcified coronary lesion; Essential (prim vinod) hypertension; Morbid (severe) obesity due to excess calories 11/28/2021 Hospital Encounter Lab Star Treviño Cardio megaalondra; Coronary artery disease due to calcified coronary lesion; Essential (prim vinod) hypertension; Morbid (severe) obesity due to excess calories 11/28/2021 Travel 11/21/2021 Anesthesia Event Anesthesiology Chris Sancheztimothy Robles MA 11/21/2021 Hospital Encounter Cardiology Angel Nash Cardio shayne VUONG 11/21/2021 Telephone Cardiology Carlos Bradley RN 11/21/2021 Documentation Cardiology Carlos Bradley RN 11/21/2021 Orders Only Cardiology Angel Nash, Cardiomegaly (Primary Dx) 11/21/2021 Travel 11/18/2021 Consult Internal [...] Appointments Anesthesiology Deonna Leiva Pre o p rajesh Cali MD (Primary Dx) 11/18/2021 Clinical Support Deonna Glez Suspecte d COVID-19 (Primary Dx); MD Viraj Neoplasm, malignant of endometrium; Rosalinda Topete Metastatic ca ncer to the peritoneum; Margaret RN Morbid (severe) obesity due to excess calories; Cardiomegaly; Coronary artery disease due to calcified coronary lesion; Essential (prim vinod) hypertension 11/18/2021 Hospital Encounter Lab Deonna Leiva Neopldaryn sm, malignant of endometrium; MD Viraj Metastatic canc er to the peritoneum; Cardiomegaly; Coronary artery disease due to calcified coronary lesion; Essential (prim vinod) hypertension 11/18/2021 Travel 11/16/2021 Consult Cardiology Angel Nash, Preoperative cardiovascular examination (Primary Dx); Neoplasm, malig nant of endometrium; Metastatic canc er to [...] Mera MD 10/25/2021 Hospital Encounter Radiology Deonna Leivapla sm, malignant of endometrium; MD Viraj 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 Fermin Hoffman MD Bergbauer, Marion, CRNA Arnold, Benjamin A., MD 10/25/2021 Travel 10/24/2021 Anesthesia Event Anesthesiology Roxi Gaytan, COREY 10/24/2021 Hospital Encounter Radiology Deonna Leiva Metast atic betsy Cali MD to the peritoneum Genaro Mcclelland, (Primary Dx) PA 10/24/2021 Clinical Support Deonna Glez MD observation for Niya Cindy other suspecte naheed MMARILEE exposure to biological agen t ruled out [...] 10/13/2021 Travel 10/03/2021 Telephone Gynecology Christian Auguste, BETO 09/30/2021 Office Visit Gynecology Christian Auguste, Malignant ne oplasm of endometrium (Primary Dx); PA History of nicole gnant neoplasm of endometrium 09/30/2021 Travel 03/23/2021 Office Visit Gynecology Deonna Leiva Malignant ne oplasm of endometrium (Primary Dx); MD Viraj History of nicole gnant neoplasm of endometrium 03/23/2021 Travel after 01/10/2021 Immunizations Name Administration Dates Next Due Pfizer SARS-CoV-2 Vaccination 05/14/2021, 04/25/2021 Surgical History Surgery Date Site/Laterality Comments SECTION, CLASSIC 01/17/1981 [place] LAPAROSCOPY TOT 11/28/2016 N/A Procedure: RO BOTIC HYSTERECTOMY UTERUS >250 ASSISTE D TOTAL GRAM W TUBE/OVARY HYSTERECTOMY, MINI LAPAROTOMY, CYST OSCOPY; Surgeon: Deonna Leiva MD; Lo cation: MAIN OR; Servic e: SALES ESTIMATOR - GYNECOLOGIC ONCO LOGY [place] REMOVAL OF OVARY/TUBE(S) 11/28/2016 Bilateral Proc edure: ROBOTIC ASSISTED SALPINGO-OOPHORE CTOMY; Surgeon: Deonna Leiva MD; Lo cation: MAIN OR; Servic e: SALES ESTIMATOR - GYNECOLOGIC ONCO LOGY [place] REMOVAL, PELVIC LYMPH 11/28/2016 Abdomen/Bilateral Proce dure: BILATERAL NODES,STAGING PELVIC BIOPSIES AND OMENTAL BIOPSY; Surgeon: Deonna ureña MD; Location: MAIN O R; Service: SALES ESTIMATOR - GYNECOLOGIC ONCO LOGY [place] INTRAOPERATIVE SENTINEL 11/28/2016 Bilateral Proce dure: INTRAOPERATIVE LYMPH NODE ID W DYE LYMPHATIC MA PPING; INJECTION Surgeon: Deonna Leiva MD; Lo cation: MAIN OR; Servic e: SALES ESTIMATOR - GYNECOLOGIC ONCO LOGY CHOLECYSTECTOMY 05/25/2018 - [...] been in contact with No / Unsure 01/05/2022 1:21 PM CDT someone who was confirmed or suspected to [...] Sign Reading Time Taken Comments Blood Pressure 138/82 01/05/2022 1:54 PM CDT Pulse 96 01/05/2022 1:54 PM CDT Temperature 36.4 C (97.5 F) 01/05/2022 1:33 PM CDT Respiratory Rate 18 01/05/2022 1:33 PM CDT Oxygen Saturation 98% 12/13/2021 2:05 PM CDT Inhaled Oxygen Concentration - - Weight 100.6 kg (221 lb 12.5 oz) 01/05/2022 1:34 PM CDT Height - - Body Mass Index 38.57 04/27/2017 9:51 AM CDT Plan of Treatment Date Type Specialty Care Team Description 01/13/2022 Lab Lab Deonna Leiva MD [address] [place], [place] [address] (Ana Paula jimenez) 01/13/2022 Office Visit Gynecology Deonna Leiva MD [address] [place], [place] [address] (Ana Paula jimenez) 01/13/2022 Infusion Infusion Services Jami Leiva MD [address] [place], [place] [address] (Ana Paula jimenez) 01/23/2022 Office Visit Pain Medicine Nolberto Israel MD [address] [place], [place] [address] (Wo rk) 02/10/2022 Infusion Infusion Services Jaim Leiva MD [address] [place], [place] [address] (Wo rk) 03/10/2022 Infusion Infusion Services Jami Leiva MD [address] [place], [place] [address] (Wo rk) 04/03/2023 Office Visit Colorectal Surgery Marimar Doshi MD [address] [place], [place] [address] (Wo rk) Health Maintenance Due Date Last Done Comments COVID-19 Vaccination (3 - Inadvertent risk 06/11/202105/14, 04/25/2021 4-dose series) Procedures Procedure Name Priority Date/Time Associated Comments Diagnosis PAIN MANAGEMENT Routine 01/05/2022 1:24 Chronic pain Results for this FLUOROSCOPY PM CDT procedure are i n the results section. CT CHEST ABDOMEN PELVIS Routine 12/30/2021 11:23 Neoplasm, mal ignant Results for this W CONTRAST AM CDT of endometrium procedure are in Metastatic cancer the result s to the peritoneum section. ALKALINE PHOSPHATASE Routine 12/30/2021 9:38 Neoplasm, malign ant Results for this AM CDT of endometrium procedure are in Metastatic cancer the result s to the peritoneu m section. Elevated total bilirubin FRACTIONATED BILIRUBIN Routine 12/30/2021 9:38 Neoplasm, nicole gnant Results for this AM CDT of endometrium procedure are in Metastatic cancer the result s to the peritoneu m section. Elevated total bilirubin TOTAL PROTEIN Routine 12/30/2021 9:38 Neoplasm, malignant Res ults for this AM CDT of endometrium procedure are in Metastatic cancer the result s to the peritoneu m section. Elevated total bilirubin ASPARTATE Routine 12/30/2021 9:38 Neoplasm, malignant Resu lts for this AMINOTRANSFERASE AM CDT of endometrium procedure are in Metastatic cancer the result s to the peritoneu m section. Elevated total bilirubin ALANINE AMINOTRANSFERASE Routine 12/30/2021 9:38 Neoplasm, ma lignant Results for this AM CDT of endometrium procedure are in Metastatic cancer the result s to the peritoneu m section. Elevated total bilirubin ALBUMIN LEVEL Routine 12/30/2021 9:38 Neoplasm, malignant Res ults for this AM CDT of endometrium procedure are in Metastatic cancer the result s to the peritoneu m section. Elevated total bilirubin HEPATIC FUNCTION PANEL Routine 12/30/2021 9:38 Neoplasm, nicole gnant AM CDT of endometrium Metastatic cancer to the peritoneu m Elevated total bilirubin POC CREATININE Routine 12/30/2021 9:37 Results f or this AM CDT procedure are i n the results section. US ABDOMEN LIMITED Routine 12/30/2021 9:00 Neoplasm, malignan t Results for this AM CDT of endometrium procedure are in Elevated total the results bilirubin section. MANUAL DIFFERENTIAL Routine 12/23/2021 11:48 Neoplasm, maligna nt Results for this AM CDT of endometrium procedure are in the results section. Results CBC Routine 12/23/2021 11:48 Neoplasm, malignant Resu lts for this AM CDT of endometrium procedure are in the results section. CALCIUM LEVEL TOTAL Routine 12/23/2021 11:48 Neoplasm, maligna nt Results for this AM CDT of endometrium procedure are in the results section. .GLOMERULAR FILTRATION Routine 12/23/2021 11:48 Neoplasm, nicole gnant Results for this RATE AM CDT of endometrium procedure are in the results section. SERUM CREATININE Routine 12/23/2021 11:48 Neoplasm, malignant Results for this AM CDT of endometrium procedure are in the results section. ELECTROLYTE PANEL Routine 12/23/2021 11:48 Neoplasm, malignant Results for this AM CDT of endometrium procedure are in the results section. BLOOD UREA NITROGEN Routine 12/23/2021 11:48 Neoplasm, maligna nt Results for this AM CDT of endometrium procedure are in the results section. GLUCOSE LEVEL Routine 12/23/2021 11:48 Neoplasm, malignant Res ults for this AM CDT of endometrium procedure are in the results section. MAGNESIUM LEVEL Routine 12/23/2021 11:48 Neoplasm, malignant R esults for this AM CDT of endometrium procedure are in the results section. ASPARTATE Routine 12/23/2021 11:48 Neoplasm, malignant Resu lts for this AMINOTRANSFERASE AM CDT of endometrium procedure are in the results section. ALANINE AMINOTRANSFERASE Routine 12/23/2021 11:48 Neoplasm, ma lignant Results for this AM CDT of endometrium procedure are in the results section. BILIRUBIN TOTAL Routine 12/23/2021 11:48 Neoplasm, malignant R esults for this AM CDT of endometrium procedure are in the results section. BASIC METABOLIC PANEL, Routine 12/23/2021 11:48 Neoplasm, nicole gnant CALCIUM TOTAL AM CDT of endometrium COMPLETE BLOOD COUNT W/ Routine 12/23/2021 11:48 Neoplasm, mal ignant DIFFERENTIAL AM CDT of endometrium CANCER ANTIGEN 125 Routine 12/23/2021 11:48 Neoplasm, malignan t Results for this AM CDT of endometrium procedure are in the results section. EKG, 12-LEAD (SCHEDULED) Routine 12/14/2021 Paroxysmal atria l fibrillation COMBINED RIGHT AND LEFT Routine 11/28/2021 10:10 Cardiomegaly HEART CATH AM WATER SYSTEM OPERATOR POC OXIMETRY VENOUS Routine 11/28/2021 9:44 Resu lts for this AM WATER SYSTEM OPERATOR procedure are i n the results section. POC OXIMETRY ARTERIAL Routine 11/28/2021 9:35 Re sults for this AM WATER SYSTEM OPERATOR procedure are i n the results section. POC GLUCOSE SCREEN Routine 11/28/2021 8:47 Resul ts for this AM WATER SYSTEM OPERATOR procedure are i n the results section. CLOT EXPIRATION DATE Routine 11/28/2021 7:41 Res ults for this AM WATER SYSTEM OPERATOR procedure are i n the results section. TMP INTERPRETATION Routine 11/28/2021 7:41 Resul ts for this ANTIBODY SCREEN NEGATIVE AM WATER SYSTEM OPERATOR pro cedure are in the results section. ANTIBODY SCREEN Routine 11/28/2021 7:41 Cardiomegaly Results for this AM WATER SYSTEM OPERATOR Coronary artery procedure ar e in disease due to the results calcified coronary section. lesion Essential (primary) hypertension Morbid (severe) obesity due to excess calories ABORH Routine 11/28/2021 7:41 Cardiomegaly Results for this AM WATER SYSTEM OPERATOR Coronary artery procedure ar e in disease due to the results calcified coronary section. lesion Essential (primary) hypertension Morbid (severe) obesity due to excess calories TYPE AND SCREEN Routine 11/28/2021 7:41 Cardiomegaly AM WATER SYSTEM OPERATOR Coronary artery disease due to calcified coronary lesion Essential (primary) hypertension Morbid (severe) obesity due to excess calories ECHOCARDIOGRAM 2D Routine 11/21/2021 7:51 Cardiomegaly Result s for this COMPLETE AM WATER SYSTEM OPERATOR procedure are i n the results section. GENERAL LABORATORY ADD Now 11/18/2021 1:50 Pre op labs R esults for this ON TEST PM WATER SYSTEM OPERATOR procedure are i n the results section. COVID-19 (SARS-COV-2) Routine 11/18/2021 12:07 Suspected COVID -19 Results for this PCR-ASYMPTOMATIC MC PM WATER SYSTEM OPERATOR procedur e are in the results section. URINALYSIS MICROSCOPIC Routine 11/18/2021 11:36 R esults for this AM WATER SYSTEM OPERATOR procedure are i n the results section. URINALYSIS WITH Routine 11/18/2021 11:36 Neoplasm, malignant R esults for this MICROSCOPIC IF INDICATED AM WATER SYSTEM OPERATOR of endo metrium procedure are in Metastatic cancer the result s to the peritoneu m section. Cardiomegaly Coronary artery disease due to calcified coronary lesion Essential (primary) hypertension URINE CULTURE Routine 11/18/2021 11:36 Neoplasm, malignant Res ults for this AM WATER SYSTEM OPERATOR of endometrium procedure are in Metastatic cancer the result s to the peritoneu m section. Cardiomegaly Coronary artery disease due to calcified coronary lesion Essential (primary) hypertension FREE THYROXINE Routine 11/18/2021 11:23 Results f or this AM WATER SYSTEM OPERATOR procedure are i n the results section. THYROID STIMULATING Routine 11/18/2021 11:23 Resu lts for this HORMONE AM WATER SYSTEM OPERATOR procedure are i n the results section. FRACTIONATED BILIRUBIN Routine 11/18/2021 11:23 Neoplasm, nicole gnant Results for this AM WATER SYSTEM OPERATOR of endometrium procedure are in Metastatic cancer the result s to the peritoneu m section. Cardiomegaly Coronary artery disease due to calcified coronary lesion Essential (primary) hypertension TOTAL PROTEIN Routine 11/18/2021 11:23 Neoplasm, malignant Res ults for this AM WATER SYSTEM OPERATOR of endometrium procedure are in Metastatic cancer the result s to the peritoneu m section. Cardiomegaly Coronary artery disease due to calcified coronary lesion Essential (primary) hypertension ASPARTATE Routine 11/18/2021 11:23 Neoplasm, malignant Resu lts for this AMINOTRANSFERASE AM WATER SYSTEM OPERATOR of endometrium procedure are in Metastatic cancer the result s to the peritoneu m section. Cardiomegaly Coronary artery disease due to calcified coronary lesion Essential (primary) hypertension ALANINE AMINOTRANSFERASE Routine 11/18/2021 11:23 Neoplasm, ma lignant Results for this AM WATER SYSTEM OPERATOR of endometrium procedure are in Metastatic cancer the result s to the peritoneu m section. Cardiomegaly Coronary artery disease due to calcified coronary lesion Essential (primary) hypertension ALKALINE PHOSPHATASE Routine 11/18/2021 11:23 Neoplasm, malign ant Results for this AM WATER SYSTEM OPERATOR of endometrium procedure are in Metastatic cancer the result s to the peritoneu m section. Cardiomegaly Coronary artery disease due to calcified coronary lesion Essential (primary) hypertension ALBUMIN LEVEL Routine 11/18/2021 11:23 Neoplasm, malignant Res ults for this AM WATER SYSTEM OPERATOR of endometrium procedure are in Metastatic cancer the result s to the peritoneu m section. Cardiomegaly Coronary artery disease due to calcified coronary lesion Essential (primary) hypertension CALCIUM LEVEL TOTAL Routine 11/18/2021 11:23 Neoplasm, maligna nt Results for this AM WATER SYSTEM OPERATOR of endometrium procedure are in Metastatic cancer the result s to the peritoneu m section. Cardiomegaly Coronary artery disease due to calcified coronary lesion Essential (primary) hypertension .GLOMERULAR FILTRATION Routine 11/18/2021 11:23 Neoplasm, nicole gnant Results for this RATE AM WATER SYSTEM OPERATOR of endometrium procedure are in Metastatic cancer the result s to the peritoneu m section. Cardiomegaly Coronary artery disease due to calcified coronary lesion Essential (primary) hypertension SERUM CREATININE Routine 11/18/2021 11:23 Neoplasm, malignant Results for this AM WATER SYSTEM OPERATOR of endometrium procedure are in Metastatic cancer the result s to the peritoneu m section. Cardiomegaly Coronary artery disease due to calcified coronary lesion Essential (primary) hypertension ELECTROLYTE PANEL Routine 11/18/2021 11:23 Neoplasm, malignant Results for this AM WATER SYSTEM OPERATOR of endometrium procedure are in Metastatic cancer the result s to the peritoneu m section. Cardiomegaly Coronary artery disease due to calcified coronary lesion Essential (primary) hypertension BLOOD UREA NITROGEN Routine 11/18/2021 11:23 Neoplasm, maligna nt Results for this AM WATER SYSTEM OPERATOR of endometrium procedure are in Metastatic cancer the result s to the peritoneu m section. Cardiomegaly Coronary artery disease due to calcified coronary lesion Essential (primary) hypertension GLUCOSE LEVEL Routine 11/18/2021 11:23 Neoplasm, malignant Res ults for this AM WATER SYSTEM OPERATOR of endometrium procedure are in Metastatic cancer the result s to the peritoneu m section. Cardiomegaly Coronary artery disease due to calcified coronary lesion Essential (primary) hypertension MANUAL DIFFERENTIAL Routine 11/18/2021 11:23 Neoplasm, maligna nt Results for this AM WATER SYSTEM OPERATOR of endometrium procedure are in Metastatic cancer the result s to the peritoneu m section. Cardiomegaly Coronary artery disease due to calcified coronary lesion Essential (primary) hypertension Results CBC Routine 11/18/2021 11:23 Neoplasm, malignant Resu lts for this AM WATER SYSTEM OPERATOR of endometrium procedure are in Metastatic cancer the result s to the peritoneu m section. Cardiomegaly Coronary artery disease due to calcified coronary lesion Essential (primary) hypertension APTT Routine 11/18/2021 11:23 Neoplasm, malignant Resu lts for this AM WATER SYSTEM OPERATOR of endometrium procedure are in Metastatic cancer the result s to the peritoneu m section. 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 Cardiomegaly Coronary artery disease due to calcified coronary lesion Essential (primary) hypertension COMPREHENSIVE METABOLIC Routine 11/18/2021 11:23 Neoplasm, mal ignant PANEL AM WATER SYSTEM OPERATOR of endometrium Metastatic cancer to the peritoneu m Cardiomegaly Coronary artery disease due to calcified coronary lesion Essential (primary) hypertension COMPLETE BLOOD COUNT W/ Routine 11/18/2021 11:23 Neoplasm, mal ignant DIFFERENTIAL AM WATER SYSTEM OPERATOR of endometrium Metastatic cancer to the peritoneu m Cardiomegaly Coronary artery disease due to calcified coronary lesion Essential (primary) hypertension CANCER ANTIGEN 125 Routine 11/18/2021 11:23 Neoplasm, malignan t Results for this AM WATER SYSTEM OPERATOR of endometrium procedure are in Metastatic cancer the result s to the peritoneu m section. Cardiomegaly Coronary artery disease due to calcified coronary lesion Essential (primary) hypertension CLOT EXPIRATION DATE Routine 11/18/2021 11:15 Res ults for this AM WATER SYSTEM OPERATOR procedure are i n the results section. TMP INTERPRETATION Routine 11/18/2021 11:15 Resul ts for this ANTIBODY SCREEN NEGATIVE AM WATER SYSTEM OPERATOR pro cedure are in the results section. ANTIBODY SCREEN Routine 11/18/2021 11:15 Neoplasm, malignant R esults for this AM WATER SYSTEM OPERATOR of endometrium procedure are in Metastatic cancer the result s to the peritoneu m section. Cardiomegaly Coronary artery disease due to calcified coronary lesion Essential (primary) hypertension ABORH Routine 11/18/2021 11:15 Neoplasm, malignant Resu lts for this AM WATER SYSTEM OPERATOR of endometrium procedure are in Metastatic cancer the result s to the peritoneu m section. Cardiomegaly Coronary artery disease due to calcified coronary lesion Essential (primary) hypertension HEMOGLOBIN A1C Routine 11/18/2021 11:15 Neoplasm, malignant Re sults for this AM WATER SYSTEM OPERATOR of endometrium procedure are in Metastatic cancer the result s to the peritoneu m section. Cardiomegaly Coronary artery disease due to calcified coronary lesion Essential (primary) hypertension TYPE AND SCREEN Routine 11/18/2021 11:15 Neoplasm, malignant AM WATER SYSTEM OPERATOR of endometrium Metastatic cancer to the peritoneu m Cardiomegaly Coronary artery disease due to calcified coronary lesion Essential (primary) hypertension EKG, 12-LEAD (SCHEDULED) Routine 11/16/2021 US CHEST Routine 11/04/2021 1:27 Mammography Results for this PM WATER SYSTEM OPERATOR abnormal procedure are i n the results section. US BREAST COMPLETE Routine 11/04/2021 1:27 Mammography Resul ts for this BILATERAL PM WATER SYSTEM OPERATOR abnormal procedure are i n the results section. MAMMO DIGITAL DIAGNOSTIC Routine 11/04/2021 12:27 Mammography Results for this BILATERAL W ABDELRAHMAN PM WATER SYSTEM OPERATOR abnormal procedure a re in the results section. HUSSEIN VUONG MICROSATELLITE Routine 10/26/2021 7:03 INSTABILITY (MSI) PM WATER SYSTEM OPERATOR ANALYSIS INTERPRETATION AND REPORT IR CT GUIDED BIOPSY Routine 10/25/2021 1:03 Neoplasm, maligna nt Results for this PELVIC NON-BONE PM WATER SYSTEM OPERATOR of endometrium procedure are in Metastatic cancer the result s to the peritoneum section. CYTOLOGY IMAGE-GUIDED Routine 10/25/2021 12:08 Neoplasm, malig nant Results for this FNA INTERPRETATION PM WATER SYSTEM OPERATOR of endometriu m procedure are in Metastatic cancer the result s to the peritoneum section. PATHOLOGY BIOPSY Routine 10/25/2021 12:07 Neoplasm, malignant Results for this INTERPRETATION PM WATER SYSTEM OPERATOR of endometrium procedure are in Metastatic cancer the result s to the peritoneum section. EKG, 12-LEAD (PORTABLE) Routine 10/25/2021 CLOT EXPIRATION DATE Routine 10/24/2021 9:56 Res ults for this AM WATER SYSTEM OPERATOR procedure are i n the results section. TMP INTERPRETATION Routine 10/24/2021 9:56 Resul ts for this ANTIBODY SCREEN NEGATIVE AM WATER SYSTEM OPERATOR pro cedure are in the results section. ANION GAP Routine 10/24/2021 9:56 Results for this AM WATER SYSTEM OPERATOR procedure are i n the results section. ANTIBODY SCREEN Routine 10/24/2021 9:56 Results for this AM WATER SYSTEM OPERATOR procedure are i n the results section. ABORH Routine 10/24/2021 9:56 Results for this AM WATER SYSTEM OPERATOR procedure are i n the results section. .GLOMERULAR FILTRATION Routine 10/24/2021 9:56 R esults for this RATE AM WATER SYSTEM OPERATOR procedure are i n the results section. SERUM CREATININE Routine 10/24/2021 9:56 Results for this AM WATER SYSTEM OPERATOR procedure are i n the results section. MANUAL DIFFERENTIAL Routine 10/24/2021 9:56 Resu lts for this AM WATER SYSTEM OPERATOR procedure are i n the results section. Results CBC Routine 10/24/2021 9:56 Results for this AM WATER SYSTEM OPERATOR procedure are i n the results section. TYPE AND SCREEN Routine 10/24/2021 9:56 AM WATER SYSTEM OPERATOR GLUCOSE, RANDOM Routine 10/24/2021 9:56 Results for this AM WATER SYSTEM OPERATOR procedure are i n the results section. PROTHROMBIN TIME Routine 10/24/2021 9:56 Results for this AM WATER SYSTEM OPERATOR procedure are i n the results section. BLOOD UREA NITROGEN Routine 10/24/2021 9:56 Resu lts for this AM WATER SYSTEM OPERATOR procedure are i n the results section. SERUM CREATININE Routine 10/24/2021 9:56 AM WATER SYSTEM OPERATOR POTASSIUM LEVEL Routine 10/24/2021 9:56 Results for this AM WATER SYSTEM OPERATOR procedure are i n the results section. SODIUM LEVEL Routine 10/24/2021 9:56 Results for this AM WATER SYSTEM OPERATOR procedure are i n the results section. CHLORIDE LEVEL Routine 10/24/2021 9:56 Results f or this AM WATER SYSTEM OPERATOR procedure are i n the results section. CARBON DIOXIDE LEVEL Routine 10/24/2021 9:56 Res ults for this AM WATER SYSTEM OPERATOR procedure are i n the results section. COMPLETE BLOOD COUNT W/ Routine 10/24/2021 9:56 DIFFERENTIAL AM WATER SYSTEM OPERATOR COVID-19 (SARS-COV-2) Routine 10/24/2021 9:53 Re sults for this PCR-ASYMPTOMATIC [facility] AM WATER SYSTEM OPERATOR procedur e are in the results section. MCKINLEY VUONG MSI BY PCR Routine 10/16/2021 4:50 Neoplasm, malignant Results for this MATERIAL REQUEST PM WATER SYSTEM OPERATOR of endometrium procedure are in Metastatic cancer the result s to the peritoneum section. AP IHC HER2/LAURA MATERIAL Routine 10/16/2021 4:50 Neoplasm, ma lignant REQUEST PM WATER SYSTEM OPERATOR of endometrium 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 AP IHC MSI (MLH1, MSH2, Routine 10/16/2021 4:50 Neoplasm, mal ignant MSH6, PMS2) MATERIAL PM WATER SYSTEM OPERATOR of endometr ium REQUEST 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 CT CHEST ABDOMEN PELVIS Routine 10/13/2021 8:37 History of Results for this W CONTRAST AM WATER SYSTEM OPERATOR malignant neoplasm procedure are in of endometrium the results Malignant neoplasm section. of endometrium POC CREATININE Routine 10/13/2021 7:55 Results f or this AM WATER SYSTEM OPERATOR procedure are i n the results section. OSI MAMMO BILATERAL Routine 10/07/2021 4:29 Cancer Resu lts for this PM WATER SYSTEM OPERATOR procedure are i n the results section. OSI BONE DENSITY STUDY Routine 10/07/2021 4:29 Cancer R esults for this PM WATER SYSTEM OPERATOR procedure are i n the results section. PATHOLOGY BIOPSY Routine 09/30/2021 1:11 History of Results for this INTERPRETATION PM WATER SYSTEM OPERATOR malignant neoplasm procedu re are in of endometrium the results Malignant neoplasm section. of endometrium CANCER ANTIGEN 125 Routine 09/30/2021 11:35 History of Resul ts for this AM WATER SYSTEM OPERATOR malignant neoplasm procedure are in of endometrium the results Malignant neoplasm section. of endometrium CANCER ANTIGEN 125 Routine 03/23/2021 10:41 History of Resul ts for this AM CDT malignant neoplasm procedure are in of endometrium the results Malignant neoplasm section. of endometrium after 01/10/2021 Results Pain Management Fluoroscopy (01/05/2022 1:24 PM CDT) Anatomical Region Laterality Modality Radio Fluoroscopy Specimen Narrative Systemgenerated, Documentation - 022 1:24 PM CDT This procedure requires no interpretatio n from the radiologist. CT chest abdomen pelvis w contrast (12/30/2021 11:23 AM CDT)Only the most recent of2 resultswithin the time period is included. Anatomical Region Laterality Modality Abdomen, Pelvis, Chest Computed Tomograp hy Specimen Impressions [id number] - 12/30/2021 2:04 PM CDT Stable or slight reduction in size of le ft iliac fossa peritoneal metastasis. No other new sites of metastasis is iden tified. Heavily calcified SMA, with high-grade s tenosis, correlate with clinical symptoms. 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 Comparison: 10/13/2021 Technique: CT of the chest, abdomen, and pelvis was performed with intravenous contrast. Findings: Chest: Multiple scattered punctate nodules bila teral lungs. Largely stable in comparison to prior study no suspicious new pulmonary nodules atelectasis lung bases Stable subcentimeter right paratracheal lymph node No significant new mediastinal hilar or axillary lymphadenopathy Small hiatal hernia noted. Abdomen pelvis: No suspicious new focal liver lesions. N o significant bile duct dilation CBD is mildly prominent tapers normally in the region of the pancreatic head Stable mild atrophy of the pancreas, no significant pancreatic ductal dilation. The spleen, bilateral adrenal glands ana ear unremarkable. Stable appearance bilateral kidneys scat tered hypodensities likely representing cysts no hydronephrosis. Stable borderline retroperitoneal lymph nodes., Series 3 image 189 to be followed. No significant new mesenteric, retroperi toneal pelvic or inguinal lymphadenopathy. Uterus is surgically absent. Peritoneal nodularity again noted in the left iliac fossa reduced in comparison to prior study now measuring 1 x 1.4 cm before measured 1.3 x 1.3 cm. With stranding extending to the left colon. No other suspicious new peritoneal depos its identified Stable appearance of sebaceous cyst in t he left posterior back. Heavily calcified SMA, high-grade stenos is noted. No suspicious new osseous lesions. 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 Comparison: 10/13/2021 Technique: CT of the chest, abdomen, and pelvis was performed with intravenous contrast. Findings: Chest: Multiple scattered punctate nodules bila teral lungs. Largely stable in comparison to prior study no suspicious new pulmonary nodules atelectasis lung bases Stable subcentimeter right paratracheal lymph node No significant new mediastinal hilar or axillary lymphadenopathy Small hiatal hernia noted. Abdomen pelvis: No suspicious new focal liver lesions. N o significant bile duct dilation CBD is mildly prominent tapers normally in the region of the pancreatic head Stable mild atrophy of the pancreas, no significant pancreatic ductal dilation. The spleen, bilateral adrenal glands ana ear unremarkable. Stable appearance bilateral kidneys scat tered hypodensities likely representing cysts no hydronephrosis. Stable borderline retroperitoneal lymph nodes., Series 3 image 189 to be followed. No significant new mesenteric, retroperi toneal pelvic or inguinal lymphadenopathy. Uterus is surgically absent. Peritoneal nodularity again noted in the left iliac fossa reduced in comparison to prior study now measuring 1 x 1.4 cm before measured 1.3 x 1.3 cm. With stranding extending to the left colon. No other suspicious new peritoneal depos its identified Stable appearance of sebaceous cyst in t he left posterior back. Heavily calcified SMA, high-grade stenos is noted. No suspicious new osseous lesions. IMPRESSION: Stable or slight reduction in size of le ft iliac fossa peritoneal metastasis. No other new sites of metastasis is iden tified. Heavily calcified SMA, with high-grade s tenosis, correlate with clinical symptoms. Performing Organization Address [facility] Phon e Number [id number] Fractionated Bilirubin (12/30/2021 9:38 AM CDT)Only the most recent of2 results within the time period is included. Bili Total 0.8 <=1.2 mg/dL [facility] Comment: REGION Indocyanine Green (ICG) may cause falsely elevated bilirubin results. Total and direct bilirubin must not be measured from samples containing indocyanine green. False elevation of total flora irubin can be seen in patients with IgG concentrations above 28 g/L. Testing performed at [facility], [address] [place] [address] Bili Direct 0.2 <=0.3 mg/dL [facility] Comment: REGION Indocyanine Green (ICG) may cause falsely elevated bilirubin results. Total and direct bilirubin must not be measured from samples containing indocyanine green. Testing performed at [facility], [address] [place] [address] Bili Indirect 0.6Comment: Testing 0.0 - 0.[address] [facility] performed at M.D. mg/dL [facility], [address] [facility], [place] [address] Specimen Blood Performing Organization Address [facility] [place] [phone] ALT (12/30/2021 9:38 AM CDT)Only the most recent of3 resultswithin the time period is included. Pathologist Sig nature ALT 13Comment: Testing <=33 U/L [facility] performed at [facility], [address], [place] [address] Specimen Blood Performing Organization Address [facility] [place] [address] Aspartate Aminotransferase (12/30/2021 9:38 AM CDT)Only the most recent of3 resultswithin the time period is included. Pathologist Sig nature AST 19Comment: Testing <=32 U/L [facility] performed at [facility], [address], [place] [address] Specimen Blood Performing Organization Address [facility] [place] [phone] Total Protein (12/30/2021 9:38 AM CDT)Only the most recent of2 resultswithin the time period is included. Total Protein 7.6Comment: Testing 6.4 - 8.3 g/dL [facility] performed at [facility], [address], [place] [address] Specimen Blood Performing Organization Address City/[facility] [place] [phone] Alkaline Phosphatase (12/30/2021 9:38 AM CDT)Only the most recent of2 results within the time period is included. Pathologist Sig nature Alk Phos 86Comment: Testing 35 - 104 U/L [facility] performed at [facility], [address], [place] [address] Specimen Blood Performing Organization Address City/[facility]/ZIP [facility] [place] [phone] Albumin Level (12/30/2021 9:38 AM CDT)Only the most recent of2 resultswithin the time period is included. Albumin Lvl 4.5Comment: Testing 3.5 - 5.2 gm/dL [facility] performed at [facility], [address], [place] [address] Specimen Blood Performing Organization Address City/State/ZIP Code Phon e Number [facility] [place] [phone] (ABNORMAL) POC Creatinine (12/30/2021 9:37 AM CDT)Only the most recent of2 resultswithin the time period is included. POC Crea 1.1 0.6 - 1.3 [facility] Comment: mg/dL [...] concentration by an electrochemical assay. POC eGFR-AA 59 (L) >=60 [facility] Comment: mL/min/1.73 m2 Normal eGFR >= 60 mL/min/1.73 m2 The eGFR is calculated using the CKD-EPI equation. The eGFR declines with age. eGFR <60 mL/min/1.73 m2 is considered as "decreased" This equation should only be used for patients 18 and older. According to the National [facility]'s Kidney Disease Outcome Quality [...] Kidney failure <15 (or dialysis) POC eGFR-EVELINA 51 (L) >=60 POC [facility] Comment: mL/min/1.73 m2 Normal eGFR >= 60 mL/min/1.73 m2 The eGFR is calculated using the CKD-EPI equation. The eGFR declines with age. eGFR <60 mL/min/1.73 m2 is considered as "decreased" This equation should only be used for patients 18 and older. According to the National [facility]'s Kidney Disease Outcome Quality Initiative [...] Dev Yes POC [facility] Performing Lab DI [place]: POC [facility] Diagnostic Imaging [facility], [address] [place] [address]; Point of Care International Controller: Eli Beard MD Specimen Blood Performing Organization Address City/State/ZIP Code Phon e Number POC [facility] US Abdomen Limited (12/30/2021 9:00 AM CDT) Anatomical Region Laterality Modality Abdomen Ultrasound Specimen Impressions [id number] - 12/30/2021 1:50 PM CDT Liver is unremarkable, no significant in trahepatic bile duct dilation. CBD mildly dilated likely related to prior cholecystectomy. Partially visualized pancreas is unremar kable. Narrative [id number] - 12/30/2021 1:50 PM CDT Examination: US ABDOMEN LIMITED, 9:00 AM Clinical History: Neoplasm, malignant of endometrium Elevated total bilirubin Indication: Abnormal Blood Work for X Or catherine, Other:, elevated total bilirubin-> please evaluate Comparison: None available. Technique: Grayscale and color Doppler u ltrasound of the abdomen. Findings: Liver: The liver is of normal echotextur e and appearance, no suspicious focal liver lesions. No significant intrahepatic bile duct dilation. Normal vascularity Gallbladder: Surgically absent Common bile duct: Measures 8 mm, mildly dilated likely related to prior cholecystectomy. Pancreas: Head and body are unremarkable tail obscured by bowel gas. Kidneys: Multiple simple appearing cyst right kidney, measuring up to 5 cm diameter. No hydronephrosis. Left kidney measures 13 x 6.7 x 6.2 cm in maximum dimension Upper abdominal aorta: Unremarkable Upper abdominal inferior vena cava: Unre markable Procedure Note Juan Pitt MD - 12/30/2021 Examination: US ABDOMEN LIMITED, 2 9:00 AM Clinical History: Neoplasm, malignant of endometrium Elevated total bilirubin Indication: Abnormal Blood Work for X Or catherine, Other:, elevated total bilirubin-> please evaluate Comparison: None available. Technique: Grayscale and color Doppler u ltrasound of the abdomen. Findings: Liver: The liver is of normal echotextur e and appearance, no suspicious focal liver lesions. No significant intrahepatic bile duct dilation. Normal vascularity Gallbladder: Surgically absent Common bile duct: Measures 8 mm, mildly dilated likely related to prior cholecystectomy. Pancreas: Head and body are unremarkable tail obscured by bowel gas. Kidneys: Multiple simple appearing cyst right kidney, measuring up to 5 cm diameter. No hydronephrosis. Left kidney measures 13 x 6.7 x 6.2 cm in maximum dimension Upper abdominal aorta: Unremarkable Upper abdominal inferior vena cava: Unre markable IMPRESSION: Liver is unremarkable, no significant in trahepatic bile duct dilation. CBD mildly dilated likely related to prior cholecystectomy. Partially visualized pancreas is unremar kable. Performing Organization Address City/State/ZIP Code Phon e Number [id number] (ABNORMAL) .Serum Creatinine (12/23/2021 11:48 AM CDT)Only the most recent of3 resultswithin the time period is included. Pathologist Sig johann Creatinine 1.25 (H)Comment: 0.51 - 0.95 mg/dL [facility], [address] [facility], [place] [address] Specimen Blood Performing Organization Address City/State/[place] [address] [address] [facility] (ABNORMAL) .CBC (12/23/2021 11:48 AM CDT)Only the most recent of3 resultswithin the time period is included. Pathologist Sig nature WBC 5.5Comment: All 4.0 - 11.0 K/uL [facility] components of the CBC performed at [facility], [address] [place] [address] RBC 4.65Comment: As part 4.00 - 5.50 [facility] of CBC testing M/uL performed at [facility], [address] [place] [address] Hgb 13.2Comment: As part 12.0 - 16.0 [facility] [place] of CBC or as an gm/dL individual orderable testing performed at [facility], [address] [place] [address] Hct 41.0Comment: As part 37.0 - 47.0 % [facility] [place] of CBC or as an individual orderable testing performed at [facility], [address] [place] [address] MCV 88Comment: As part 82 - 98 fL [facility] [place] of CBC testing performed at [facility] [facility], [address] [place] [address] MCH 28.4Comment: As part 27.0 - 31.0 pg [facility] [place] of CBC testing performed at [facility], [address] [place] [address] MCHC 32.2Comment: As part 31.0 - 36.0 [facility] [place] of CBC testing gm/dL performed at [facility], [address] [place] [address] RDW-SD 49.3 (H)Comment: As 35.1 - 46.3 fL [facility] [place] part of CBC testing performed at [facility], [address] [place] [address] RDW-CV 15.5Comment: As part 12.0 - 15.5 % [facility] [place] of CBC testing performed at [facility], [address] [place] [address] Platelet count 135 (L)Comment: As 140 - 440 K/uL [facility] [place] part of CBC or as an individual orderable testing performed at [facility], [address] [place] [address] MPV 9.6Comment: As part 4.0 - 10.4 fL [facility] of CBC testing performed at [facility], [address] [place] [address] Specimen Blood Performing Organization Address City/State/ZIP Code Ph[place] [address] [address] [facility] (ABNORMAL) Glomerular Filtration Rate (12/23/2021 11:48 AM CDT)Only the most recent of3 resultswithin the time period is included. Pathologist Sig nature eGFR-AA 50 (L) >=60 [facility] Comment: mL/min/1.73 sq. Normal eGFR >= 60 mL/min/1.73 m2 m Note: The eGFR is calculated using [...] decreased GFR 15-29 5 Kidney failure <15 Testing performed at [facility], [address] [place] [address] eGFR-EVELINA 44 (L) >=60 [facility] Comment: mL/min/1.73 sq. Normal eGFR >= 60 mL/min/1.73 m2 m Note: The eGFR is calculated using [...] decreased GFR 15-29 5 Kidney failure <15 Testing performed at [facility], [address] [place] [address] Specimen Blood Performing Organization Address City/State/ZIP Code Phon e Number [facility] [id number] [place] [address] (ABNORMAL) Differential (12/23/2021 11:48 AM CDT)Only the most recent of3 resultswithin the time period is included. Neutrophil % 58.5Comment: All 42.0 - 66.0 % [facility] [place] components of the Differential performed at [facility], [address] [place] [address] Lymphocyte % 30.4Comment: As part 24.0 - 44.0 % [facility] [place] of Differential, testing performed at [facility], [address] [place] [address] Monocyte % 7.8 (H)Comment: As 2.0 - 7.0 % [facility] [place] part of Differential, testing performed at [facility], [address] [place] [address] Eosinophil % 3.1Comment: As part of 1.0 - 4.0 % [facility] [place] Differential, testing performed at [facility], [address] [place] [address] Basophil % 0.2Comment: As part of 0.0 - 1.0 % [facility] [place] Differential, testing performed at [facility], [address] [place] [address] Neutrophil Abs 3.21Comment: As part 1.70 - 7.30 [facility] [place] of Differential, K/uL testing performed at [facility], [address] [place] [address] Lymphocyte Abs 1.67Comment: As part 1.00 - 4.80 [facility] [place] of Differential, K/uL testing performed at [facility], [address] [place] [address] Monocyte Abs 0.43Comment: As part 0.08 - 0.70 [facility] of Differential, K/uL testing performed at [facility], [address] [place] [address] Eosinophil Abs 0.17Comment: As part 0.04 - 0.40 [facility] of Differential, K/uL testing performed at [facility], [address] [place] [address] Basophil Abs 0.01Comment: As part 0.00 - 0.10 [facility] of Differential, K/uL testing performed at [facility], [address] [place] [address] Specimen Blood Performing Organization Address City/[facility] Code Phon e Number [address] [place] 125 (12/23/2021 11:48 AM CDT)Only the most recent of4 resultswithin the time period is included. [place] 125 14.8 <=38.0 U/mL [facility] Comment: Results greater than 11,500. 0 U/L may not be reliable due to matrix effect with extended dilution as it exceeds the die storage worker s recommended limit. Caution should be exercised when interpreting such values and done in conjunction with clinical context. Reference intervals are not available for male patients. Results should be interpreted in conjunction with clinical context. This test is measured by jennie ctrochemiluminescence immunoassay on Baldev Dereck immunoassay analyzers. Results obtained in different methods are not interchangeable. Testing performed at [facility], [address] [place] [address] Specimen Blood Performing Organization Address City/[facility]/ZIP Code Phon e Number [place] [phone] [place] [address] BUN (12/23/2021 11:48 AM CDT)Only the most recent of3 resultswithin the time period is included. Pathologist Sig nature BUN 22Comment: Testing 6 - 23 mg/dL [facility] performed at [facility], [address] [place] [address] Specimen Blood Performing Organization Address City/[facility]/[place] [address] [place] [address] Magnesium (12/23/2021 11:48 AM CDT) Pathologist Sig nature Magnesium 1.9Comment: Testing 1.6 - 2.6 mg/dL [facility] performed at [facility], [address] [place] [address] Specimen Blood Performing Organization Address City/[facility]/ZIP Code Phon e Number [place] [id number] [place] [address] Glucose Level (12/23/2021 11:48 AM CDT)Only the most recent of2 resultswithin the time period is included. Pathologist Sig nature Glucose Level 95 70 - 99 mg/dL [facility] Comment: Effective 04/19/16, the gluco se reference intervals [...] increased risk for diabetes Testing performed at [facility], [address] [place], [place] [address] Specimen Blood Performing Organization Address City/[facility]/ZIP [place] [address] [place] [address] Calcium Level (12/23/2021 11:48 AM CDT)Only the most recent of2 resultswithin the time period is included. Pathologist Sig nature Calcium Lvl 9.5Comment: Testing 8.4 - 10.2 mg/dL [facility] performed at [facility], [address] [place] [address] Specimen Blood Performing Organization Address City/State/ZIP [place] [address] [place] [address] (ABNORMAL) Bilirubin, total (12/23/2021 11:48 AM CDT) Pathologist Sig nature Bili Total 1.5 (H) <=1.2 mg/dL [facility] Comment: Indocyanine Green (ICG) may cause falsely elevated bilirubin results. Total and direct bilirubin must not be measured from samples containing indocyanine green. False elevation of total flora irubin can be seen in patients with IgG concentrations above 28 g/L. Testing performed at [facility], [address] [place] [address] Specimen Blood Performing Organization Address [facility] Phon e Number [address] (ABNORMAL) Electrolyte Panel (12/23/2021 11:48 AM CDT)Only the most recent of2 resultswithin the time period is included. Pathologist Matt wills Sodium Lvl 135 (L)Comment: 136 - 145 mEq/L [facility] Testing performed at [facility], [address] [place] [address] Potassium Lvl 4.4Comment: Testing 3.5 - 5.1 mEq/L [facility] performed at [facility], [address] [place] [address] Chloride 98Comment: Testing 98 - 107 mEq/L [facility] performed at [facility], [address] [place] [address] CO2 26Comment: Testing 22 - 29 mEq/L [facility] performed at [facility], [address] [place] [address] Anion Gap 11Comment: Testing 4 - 14 mEq/L [facility] performed at [facility], [address] [place] [address] Specimen Blood Performing Organization Address [facility] Phon e Number [place] [phone] [place] [address] EKG, 12-Lead (Scheduled) (12/14/2021)Only the most recent of2 resultswithin the time period is included. Specimen Narrative This result has an attachment that is no t available. Performing Organization Address City/[facility] Phon e Number MAYRA IECG Combined Right and Left Heart Cath (11/28/2021 10:10 AM WATER SYSTEM OPERATOR) Specimen Narrative This result has an attachment that is no t available. (ABNORMAL) POC Oximetry Venous (11/28/2021 9:44 AM WATER SYSTEM OPERATOR) [facility] POC O2 65.0 % POC [facility] Saturation,Venous [...] Site R atrium POC [facility]: [facility], [address] [place] [id number]; International Controller: Arlene Navarro MD Specimen Blood Performing Organization Address City/State/ZIP Code Phon e Number POC [facility] (ABNORMAL) POC Oximetry Arterial (11/28/2021 9:35 AM WATER SYSTEM OPERATOR) [facility] POC O2 Saturation, 100.0 (H) 95.0 - [...] Draw Site Aorta POC [facility] Performing Lab [facility] POC [facility] Clinical [facility], [address] [place] [address]; International Controller: Arlene Navarro MD Specimen Blood Performing Organization Address [facility] Phon e Number POC [facility] (ABNORMAL) POC Glucose Screen (11/28/2021 8:47 AM WATER SYSTEM OPERATOR) POC Glucose 102 (H) 70 - 99 [...] Sample Type Capillary POC [facility] Performing Lab [facility] POC [facility] Clinical Lab, [address] [place] [address]; International Controller: Arlene Navarro MD Specimen Blood Performing Organization Address [facility] Phon e Number POC [facility]EL[facility] Clot Expiration Date (11/28/2021 7:41 AM WATER SYSTEM OPERATOR)Only the most recent of3 results within the time period is included. Pathologist Sig nature T & S Expiration 12/01/2021 [facility]CER CENTER Specimen Blood Performing Organization Address City/[facility] Code Phon e Number [facility] CANCER Unless otherwise noted, [place] [address] CENTER all lab tests performed by: Division of Pathology and Laboratory Medicine [address] [place] [address] TMP Interpretation Antibody Screen Negative (11/28/2021 7:41 AM WATER SYSTEM OPERATOR)Only the most recent of3 resultswithin the time period is included. TMP Auto Neg ABSC At the present time, patien t plasma shows no evidence of RBC alloantibodies. [facility] Interp Comment: CANCER CENTER JESSI NEWMAN MD, PhD - [id number] Dictated by: JESSI NEWMAN MD, PhD - [id number] Dictated Date/Time: 11.29.19 11:46 AM WATER SYSTEM OPERATOR Transcribed Date/Time: 11.28.2021 11:46 AM WATER SYSTEM OPERATOR Electronically Signed By: MARILEE NEWMAN MD, PhD - [id number] on 11.28.2021 11:46 AM Specimen Blood Performing Organization Address City/[facility]/ZIP Code Phon e Number [facility] Unless otherwise noted, [address] all lab tests performed by: Division of Pathology and Laboratory Medicine [facility] [place] ABORh (11/28/2021 7:41 AM WATER SYSTEM OPERATOR)Only the most recent of3 resultswithin the time period is included. Pathologist Sig nature ABORh. O POS [facility] Specimen Blood Performing Organization Address City/[facility]/ZIP Code Phon e Number [facility] Unless otherwise noted, [address] all lab tests performed by: Division of Pathology and Laboratory Medicine [address] [place], [place] [address] Antibody Screen (11/28/2021 7:41 AM WATER SYSTEM OPERATOR)Only the most recent of3 resultswithin the time period is included. Pathologist Sig nature ABSC. Negative ABSC [facility] CENTE R Specimen Blood Performing Organization Address City/[facility]/ZIP Code Phon e Number [facility] Unless otherwise noted, [address] all lab tests performed by: Division of Pathology and Laboratory Medicine [address] [place] [address] [place] Echocardiogram 2D Complete (11/21/2021 7:51 AM WATER SYSTEM OPERATOR) Specimen Narrative ISCV - 11/21/2021 10:27 AM WATER SYSTEM OPERATOR Echocardiographic Report Interpretation Summary A complete [...] volumes were not performed in this [facility]. Cardiac Mechanics/Speckle Tracking Imagi ng: Abnormal global [...] pericardial effusion. Preliminary Reviewer Preliminary Interpretation: Janice Is julia Saucedo MD. MMode/2D Measurements IVSd: 1.1 cm [...] volumes were not performed in this [facility]. Cardiac Mechanics/Speckle Tracking Imagi ng: Abnormal global [...] General Laboratory Add-On Test (11/18/2021 1:50 PM WATER SYSTEM OPERATOR) Pathologist Sig nature Ordered Test Added [facility] Test Needed TSH, Free T4 [facility] Specimen Existing Performing Organization Address City/State/ZIP Code Phon e Number [facility] CANCER Unless otherwise noted, [place], [place] [id number] [place] [address] all lab tests performed by: Division of Pathology and Laboratory Medicine [address] [place] COVID-19 (SARS-CoV-2) PCR-Asymptomatic (11/18/2021 12:07 PM WATER SYSTEM OPERATOR)Only the most recent of2 resultswithin the time period is included. COVID19 (SARS Not Detected Not Detected [facility] CoV-2) Result Comment: CANCER CENTER This test is a qualitative r everse-transcriptase polymerase chain reaction (RT- PCR) developed for the Baldev DERCEK 6800 system and intended for qualitative detection of SARS CoV-2 RNA in nasopharyngeal a nd oropharyngeal swab specimens collected from any individuals, including those suspected of COVID-19 by their healthcare provider, and those without symptoms or other reasons to suspect COVID-19. A fact sheet for patients provided by the die storage worker ( [employer]) can be reviewed at: https://www.fda.gov/media/44 9726/download. A fact sheet for Health Care providers is provided by the die storage worker ([employer]) and can be reviewed at: https://www.fda.gov/media/186954/download Results must be interpreted within the context [...] were verified by the Microbiology Laboratory at [facility], CLIA Accreditation #: [id number] and CAP Accreditation #: [id number]. 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 MACHINE OPERATOR Swab [facility] COVID19 SARS Pre-OR Procedure [facility] Indication [facility] Specimen Nasopharyngeal Swab Performing Organization Address City/State/ZIP Code Phon e Number [facility] Unless otherwise noted, [place], [place] [phone] [place] [address] all lab tests performed by: Division of Pathology and Laboratory Medicine [address] (ABNORMAL) Urinalysis with Microscopic (11/18/2021 11:36 AM WATER SYSTEM OPERATOR) Pathologist Sig nature UA WBC 3 (H) 0 - 2 /HPF [facility] UA RBC <1 0 - 2 /HPF [facility] UA Mucous NOT SEEN Not Seen-Trace /HPF [facility] UA Bacteria NOT SEEN NOT SEEN /HPF [facility] UA Squam Epi OCC None-Occasional [facility] CANCER /HPF CENTER UA Trans Epi OCC (A) NOT SEEN /HPF [facility] Specimen Urine Narrative [facility] - 2 12:41 PM WATER SYSTEM OPERATOR Some reporting parameters within the Urinalysis test have changed due to the implementation of new in strumentation in the [place], allowi ng greater sensitivity of measurement. Urinalysis results reported by the [facility] using existing instrumentation, as well as Urinalysis t esting performed manually or by backup methodology at the [facility] will remain relatively unchanged. New reporting parameters and units will now be reported for all campuses. Performing Organization Address City/[facility] Code Phon e Number [facility] Unless otherwise noted, [address] all lab tests performed by: Division of Pathology and Laboratory Medicine [address] (ABNORMAL) Urinalysis w/Microscopic if Indicated (11/18/2021 11:36 AM WATER SYSTEM OPERATOR) Pathologist Sig nature UA Color Yellow Straw-Yellow [facility] UA Appear Clear Clear [facility] UA Glucose NEG NEG mg/dL [facility] UA Bili NEG NEG [facility] UA Ketones NEG NEG mg/dL [facility] UA Spec Grav 1.025 1.003 - 1.035 [facility] UA Blood Small (A) NEG [facility] UA pH 5.0 5.0 - 9.0 [facility] UA Protein 30 (A) NEG mg/dL [facility] UA Urobilinogen NEG NEG [facility] UA Nitrite NEG NEG [facility] UA Leuk Est Trace (A) NEG [facility] Specimen Urine Performing Organization Address City/[facility]/ZIP Code Phon e Number [facility] Unless otherwise noted, [address] all lab tests performed by: Division of Pathology and Laboratory Medicine [address] (ABNORMAL) Urine Culture (11/18/2021 11:36 AM WATER SYSTEM OPERATOR) Final Report 10 - 50,000 cfu/ml Enterococcus faecalis [facility] ... CANCER CENTER <10,000 cfu/ml Normal site von present. (A) Path Review - The results have been review ed and electronically signed by Pathologist: [facility] Urine CHRISTAL BOURNE MD #[id number] [facility] (A) Organism Enterococcus faecalis [facility] (A) [facility] Specimen Urine, Clean Catch Organism Antibiotic Method Susceptibility Enterococcus faecalis *ROSEMARY expressed in MINIMUM INHIBITORY ROSEMARY: MINT mcg/mL [facility] Enterococcus faecalis Ampicillin MINIMUM INHIBITORY <=2: Cage sceptible [facility] Enterococcus faecalis Vancomycin MINIMUM INHIBITORY 1: Susc eptible [facility] Enterococcus faecalis Nitrofurantoin MINIMUM INHIBITORY <=16: S usceptible [facility] Performing Organization Address City/[facility] Phon e Number [facility] Unless otherwise noted, [address] all lab tests performed by: Division of Pathology and Laboratory Medicine [facility] [place] aPTT (11/18/2021 11:23 AM WATER SYSTEM OPERATOR) Pathologist Sig nature aPTT 35.9 24.7 - 36.8 second(s) [facility] Specimen Blood Narrative [facility] - 2 12:18 PM WATER SYSTEM OPERATOR This lab cannot be scheduled at the [facility] locations due to collection/proccessing restrictions: [facility] and [facility]. Performing Organization Address City/[facility] Phon e Number [facility] Unless otherwise noted, [address] all lab tests performed by: Division of Pathology and Laboratory Medicine [address] [place] (ABNORMAL) Prothrombin Time with INR (11/18/2021 11:23 AM WATER SYSTEM OPERATOR)Only the most recent of2 resultswithin the time period is included. Pathologist Sig nature PT 14.2 (H) 11.5 - 13.9 [facility] second(s) CENTER INR 1.17 (H) 0.90 - 1.10 [facility] Specimen Blood Narrative [facility] - 2 12:18 PM WATER SYSTEM OPERATOR This lab cannot be scheduled at the [facility] locations due to collection/proccessing restrictions: [facility] DI[facility] and [employer] [facility]. Performing Organization Address City/[facility] Phon e Number [facility] Unless otherwise noted, [address] all lab tests performed by: Division of Pathology and Laboratory Medicine [address] [place] TSH (11/18/2021 11:23 AM WATER SYSTEM OPERATOR) Pathologist Sig nature TSH 2.77 0.27 - 4.20 mcunit/mL [facility] CANC ER CENTER Specimen Blood Performing Organization Address [facility] Phon e Number [facility] CANCER Unless otherwise noted, [address] all lab tests performed by: Division of Pathology and Laboratory Medicine [address] [place] [address] [place] Free T4 (11/18/2021 11:23 AM WATER SYSTEM OPERATOR) Pathologist Sig nature T4 Free 1.57 0.93 - 1.70 ng/dL [facility] CANCER C ENTER Specimen Blood Performing Organization Address [facility] Phon e Number [facility] CANCER Unless otherwise noted, [address] all lab tests performed by: Division of Pathology and Laboratory Medicine [address] [place] [address] Hemoglobin A1c (11/18/2021 11:15 AM WATER SYSTEM OPERATOR) Pathologist Sig nature A1C 5.6 4.3 - 5.6 % [facility] Comment: CANCER CENTER HbA1c values >=6.5% are diagnostic of diabetes mellitu s. Diagnosis should be confirmed by repeat testing. Therapeutic Action suggested: >8.0% HbA1c; Goal of therapy: <7.0% HbA1c Specimen Blood Performing Organization Address [facility] Phon e Number [facility] CANCER Unless otherwise noted, [address] all lab tests performed by: Division of Pathology and Laboratory Medicine [address] [place] [address] (ABNORMAL) US Chest for Breast Ultrasound (Add-on Only) (11/04/2021 1:27 PM WATER SYSTEM OPERATOR) Anatomical Region Laterality Modality Chest Ultrasound Specimen Impressions [facility] - 11/04/2021 1:45 PM WATER SYSTEM OPERATOR No mammographic evidence of malignancy. A [...] Incomplete: Needs Additional Imaging Eunice luation Narrative [facility] - 11/04/2021 1:45 PM WATER SYSTEM OPERATOR EXAMINATIONS: BILATERAL WHOLE-BREAST ULTRASOUND, COMPL ETE. [...] Address City/State/ZIP Code Phon e Number [place] (ABNORMAL) US Breast Complete - Bilateral (11/04/2021 1:27 PM WATER SYSTEM OPERATOR) Anatomical Region Laterality Modality Breast Bilateral Ultrasound Specimen Impressions [facility] - 11/04/2021 1:45 PM WATER SYSTEM OPERATOR No mammographic evidence of malignancy. A [...] Incomplete: Needs Additional Imaging Eunice luation Narrative [facility] - 11/04/2021 1:45 PM WATER SYSTEM OPERATOR EXAMINATIONS: BILATERAL WHOLE-BREAST ULTRASOUND, COMPL ETE. [...] 4 quadrants and retroareolar region) was performed. [place] l-time sonographic imaging of bilateral regional leo [...] Diagnostic Bilateral with Abdelrahman (11/04/2021 12:27 PM WATER SYSTEM OPERATOR) Anatomical Region Laterality Modality Breast Bilateral Mammography Specimen Addenda Addendum by Harvinder Mark MD on 11/18/19 4:15 PM WATER SYSTEM OPERATOR ADDENDED REPORT ----- 11/18/2021 Addendum: The [...] recommended. BI-RADS Category 2: Benign Finding(s) Impressions [facility] - 11/07/2021 9:52 AM WATER SYSTEM OPERATOR No mammographic evidence of malignancy. A [...] Incomplete: Needs Additional Imaging Eunice CROWELL - 11/07/2021 9:52 AM WATER SYSTEM OPERATOR CLINICAL INDICATION: Abnormal screening mammogram. MAMMO [...] carneyation Performing Organization Address City/State/ZIP Code Phon dafne CROWELL MD Microsatellite Instability (MSI) Analysis Interpretation and Report (10/26/2021 7:03 PM WATER SYSTEM OPERATOR) Specimen Narrative This result has an attachment that is no t available. IR CT GUIDED BIOPSY PELVIC NON-BONE (10/25/2021 1:03 PM WATER SYSTEM OPERATOR) Anatomical Region Laterality Modality Abdomen/Pelvis Computed Tomography Specimen Narrative Fermin Hoffman MD - 10/25/2021 1:08 PM WATER SYSTEM OPERATOR Date of Procedure: 10/25/21 Attending Physician: Fermin Marion i, MD Car Greaser: None Pre Procedure Diagnosis: Neoplasm, mal ignant [...] Cytology Image-Guided FNA Interpretation (10/25/2021 12:08 PM WATER SYSTEM OPERATOR) Gross Description A: [facility] Specimens procured: 3 Diff Quik; 3 Pap Stain Slides 10 ml, slightly cloudy bloody fluid in RPMI 1 Cell Block Date/Time Placed in Formalin: 10/25/21 1:09 PM Size: 1.0 cm Immediate assessment for specimen adequacy was made x1 by Dr. Maria. Immediate Assessment Adequate cellularity, [facility] favor malignant Major Classification MALIGNANT (A) [facility] Electr onically signed by Diamante Maria MD on 10/27/2021 at 6: 42 PM Diagnosis A. Soft tissue, left pelvic, fine needle aspiration: [facility] Electronically signed by Diamante Sainz [...] the patient's known history of serous carcinoma. [facility] The cell block preparation was contributory towards th e above diagnosis. A concurrent core needle biopsy ([id number]) is also theo ilable. Retained/Biomarker SR:7S, 2CB, 4IP [facility] Testing MDL CB:50-300 MDL Pap:3S MDL DQ:1S MDL FISH:1S Informational Points Some tests reported [facility] here may have been developed and performance characteristics determined by [facility]. These tests have not been specifically cleared or approved by the U.S. Food and Drug Administration. This case originated at [facility], [address] [place] [id number]. Specimen Fine Needle Asp - Pelvis, Left Performing Organization Address City/State/ZIP Code Phon e Number [facility] [place] [address] [address] [facility] Pathology Biopsy Interpretation (10/25/2021 12:07 PM WATER SYSTEM OPERATOR)Only the most recent of 2 resultswithin [...] 10/27/2021 at 6: 21 PM Comment Immunohistochemical [facility] stains are performed and show the neoplastic cells to be positive for cytokeratin 7 (patchy), PAX-8, p16 (strong, diffuse), p53 (aberrant over-expression), ER (80%, moderate), and IL (95%, moderate to strong). The histologic and immunohistochemical findings are in keeping with the above diagnosis. Gross Description A: [facility] Left pelvic soft tissue nodu le biopsy with biomarkers: Multiple nicole-white core biopsies measuring 1.4 x 0.5 x 0.1 cm in aggregate, entirely submitted in A1. GM Biomarker T: A1 [facility] Block(s) N: N/A Disclaimer "Some tests reported here [facility] may have been developed and performance characteristics determined by [facility]. These tests have not been specifically cleared or approved by the U.S. Food and Drug Administration. If applicable, controls were reviewed and showed appropriate reactivity." Specimen Tissue - Pelvis, Left Performing Organization Address City/State/ZIP Code Phon e Number [facility] [place] [address] [address] [facility] EKG, 12-Lead (Portable) (10/25/2021) Specimen Narrative This result has an attachment that is no t available. Performing Organization Address City/State/ZIP Code Phon e Number [facility] Glucose, Random (10/24/2021 9:56 AM WATER SYSTEM OPERATOR) Glucose Random 108 70 - 199 mg/dL [facility] Comment: REGION Effective 04/19/16, the gluco se [...] increased risk for diabetes Testing performed at [facility], [address], [place] [address] Specimen Blood Performing Organization Address City/[facility]/[place] [address] Anion Gap (10/24/2021 9:56 AM WATER SYSTEM OPERATOR) Pathologist Sig nature Anion Gap 7Comment: Testing 4 - 14 mEq/L [facility] performed at [facility], [address], [place] [address] Specimen Blood Performing Organization Address [facility] [place] [phone] Sodium Level (10/24/2021 9:56 AM WATER SYSTEM OPERATOR) Pathologist Sig nature Sodium Lvl 140Comment: Testing 136 - 145 mEq/L [facility] performed at [facility], [address], [place] [address] Specimen Blood Performing Organization Address [facility] [place] [phone] Potassium (10/24/2021 9:56 AM WATER SYSTEM OPERATOR) Potassium Lvl 3.8Comment: Testing 3.5 - 5.[address] [facility] performed at D mEq/L [facility], [address], [place] [address] Specimen Blood Performing Organization Address City/[facility]/[place] [phone] (ABNORMAL) Chloride Level (10/24/2021 9:56 AM WATER SYSTEM OPERATOR) Pathologist Sig nature Chloride 108 (H)Comment: 98 - 107 mEq/L [facility] Testing performed at [facility], [address], [place] [address] Specimen Blood Performing Organization Address City/State/ZIP [place] [address] [address] Carbon Dioxide Level (10/24/2021 9:56 AM WATER SYSTEM OPERATOR) Pathologist Sig nature CO2 25Comment: Testing 22 - 29 mEq/L [facility] performed at [facility], [address], [place] [address] Specimen Blood Performing Organization Address City/[facility]/ZIP [place] [phone] [address] MSI by PCR Material Request (10/16/2021 4:50 PM WATER SYSTEM OPERATOR) Pathologist Sig nature Archived Material Previously diagnosed [facility] tissues from [id number] were selected for molecular analysis. Results will be reported separately. Specimen Tissue Performing Organization Address City/[facility]/ZIP Code Phon e Number [facility] [place] [address] [address] [facility] MSI (MLH1, MSH2, MSH6, PMS2) Material Request (10/16/2021 4:50 PM WATER SYSTEM OPERATOR) Specimen Tissue Performing Organization Address City/[facility]/ZIP Code Phon e Number [facility] [place] [address] [address] [facility] HER2/laura Material Request (10/16/2021 4:50 PM WATER SYSTEM OPERATOR) Specimen Tissue Performing Organization Address City/[facility]/ZIP Code Phon e Number [facility] [place] [address] [address] [place] OSI Mammo (10/07/2021 4:29 PM WATER SYSTEM OPERATOR) Anatomical Region Laterality Modality Breast Other Specimen Narrative [facility] - 10/28/2021 4:29 PM WATER SYSTEM OPERATOR Study acquired at another institution. For comparison only. No MD Mendoza originated interpretation requested or a vailable. Performing Organization Address City/State/ZIP Code Phon e Number [facility] OSI Bone Density Study (10/07/2021 4:29 PM WATER SYSTEM OPERATOR) Anatomical Region Laterality Modality Whole Body Other Specimen Narrative Systemgenerated, Documentation - 022 4:29 PM WATER SYSTEM OPERATOR Study acquired at another institution. For comparison only. No MD Mendoza originated interpretation requested or a vailable. after 01/10/2021 Insurance Payer Benefit Plan / Subscriber ID Effective Dates Phone Addre ss Type Group [employer]ET[employer] MEDICARE AETNA MEDICARE [id number] 2019-Presen [address] [place] [address] Advance Directives Code Status Date Activated Date Inactivated Comments Full Code 11/28/2016 11:38 AM 11/29/2016 1:23 PM Care Teams Vibrating Screen Operator Relationship Specialty Start Date End Date Deonna Leiva, PCP - General Gynecologic Medical 10/30/16 MD Oncology [address] [place] [phone] Denzel Pritchett PCP - External Obstetrics/Gynecology 10/30/16 "MD Eli Referring Mateo Chavez PCP - External Primary Internal Medicine 11/08/16 MD Malena Care Provider [address] [place] [address] [phone] David Dobson Consulting Physician Cardiology 12/23/21 MD Jeremie [address] [place] [address] [phone]
--- OUTSIDE RECORDS SUMMARY | 2022-01-10 03:17 | XMS REPORT | Continuity of Care Document ---
:1950 Author Organization [facility] t Address [address] [place] [address] Care Team Providers Name Role Phone [phone] Primary Care Physician Unavailable SYSTEM, PROVIDER NOT IN Attending Clinician Unavailable Viraj LEIVA Attending Clinician Unavailable Penelope STEVENS Attending Clinician Unavailable Penelope Stevens MD Attending Clinician Viraj Leiva MD Attending Clinician Neisha PÉREZ Attending Clinician NEISHA Attending Clinician Unavailable Jenae NICOLE, May Attending Clinician Mirna NICOLE, M Attending Clinician Unavailable Rudy PÉREZ Attending Clinician RUDY Attending Clinician Unavailable SAAD Attending Clinician Unavailable Saad VUONG Attending Clinician Pedro RN, L Attending Clinician Unavailable Hudson VUONG Attending Clinician HUDSON Attending Clinician Unavailable Margaret Sanchez MA Attending Clinician Unavailable Mayra Baird MD Attending Clinician Yoselyn RN, L Attending Clinician Sunshine PÉREZ Attending Clinician SUNSHINE Attending Clinician Unavailable León Rosenberg MD Attending Clinician Shi Hoffman MD Attending Clinician Ninoska BARCLAY Attending Clinician Minnie Mera MD Attending Clinician Lukas NICOLE Attending Clinician Unavailable Keila Dupont Attending Clinician Mookie Núñez MA Attending Clinician Unavailable Chris HUNT Attending Clinician Unavailable GARETH CUELLAR Attending Clinician Unavailable Viraj LEIVA Admitting Clinician Unavailable GARETH CUELLAR Admitting Clinician Unavailable Payers Payer Name Policy Type Policy Number Effective Date Expiration Date Candelario LOPEZ MEDICARE PPO [id number] 2019 00:00:00 Problems Condition Condition Condition Status Onset Resolution Last Treating Co mments Source Name Details Category Date Date Treatment Clinician Date Paroxysmal Paroxysmal Disease Active Last M D atrial atrial 3-22 Assessmen Anderso fibrillati fibrillati 00:00: t & Plan: n on on Formattin g of this note might be different from the original. Patient has a history of atrial fibrillat ion she is likely persisten t versus chronic with EKG done today showing well controlle d atrial fibrillat ion in the 80s. Continue metoprolo l tartrate 25 mg p.o. twice daily but long-term anticoagu lation with Eliquis 5 mg p.o. twice daily with a UXT2TY0-I ASc score 4 (age, gender, CHF, HTN) Nonischemi Nonischemi Disease Active Last M D c c 3-22 Assessmen Anderso congestive congestive 00:00: t & Plan: n cardiomyop cardiomyop 00 Formattin athy athy g of this note might be different from the original. Patient has a history of a echocardi ogram done 2 that showed an ejection fraction of 23% for which patient underwent a left heart catheteri zation showing no acute coronary disease. Patient presented with a echocardi ogram from outside hospital that showed ejection fraction of 10 to 15% patient is on good medical managemen t with Entresto 24-26 mg tablet twice daily, spironola ctone 50 mg p.o. daily with recommend ation to continue current regimen. Discussed with patient the increased risk of sudden cardiac her low ejection fraction and the recommend ation for LifeVest prior to reevaluat ion to permanent ICD implant for which patient declined. Patient is already had this discussio n with her private cardiolog ist julitain g a permanent ICD implant and knows she would need a follow-up appointme nt within 3 months. Patient states she elected to have her further managemen t with her local cardiolog ist. 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 Left heart catheteri zation done 2 showed normal coronary arteries with only luminal irregular ities. Continue pravastat in 20 mg p.o. daily. Other Other Disease Active MD specified [...] note might be different from the original. Well-cont rolled blood pressure at 100/70 in clinic. Patient reports blood pressures in the 110s to 120s at home. Continue medical managemen t on Entresto 24-26 mg tablet p.o. twice daily, metoprolo l tartrate 25 mg p.o. twice daily and spironola ctone 50 mg daily. Morbid Morbid Disease Active Overview: (severe) (severe) 2-15 Formattin And erso obesity obesity 00:00: g of this n due to due to 00 note excess excess might be calories calories different from the original. 11/21/2016 Body mass index is 41.48 kg/(m^2). Weight: (!) 106.2 kg (234 lb 2.1 oz) [place] body weight: 52.4 kg (115 lb 7.7 [...] 00:00: n endometriu endometriu 00 m m Preoperati Preoperati Disease Resolve 2022-01-01 2022-01-01 ve ve d 3-22 00:00:00 18:44:24 Mitchell o cardiovasc cardiovasc 00:00: n ular ular 00 examinatio examinatio n n History of History of Disease Resolve 2021-10-28 [...] smoker MD Donaldson use History [facility] MD Donaldson Alcohol Frequency History [facility] MD Donaldson Alcohol Std Drinks History [facility] MD Donaldson Alcohol Binge Exposure to Not sure MD Donaldson SARS-CoV-2 (event) Alcohol intake 2022-01-01 2022-01-01 Current drinker of MD Donaldson 00:00:00 00:00:00 alcohol (finding) Tobacco use and 2016-11-08 2016-11-08 Smokeless tobacco MD Donaldson exposure 00:00:00 00:00:00 non-user History [facility] 2016-11-08 2016-11-08 social drinker MD Lester phelps Alcohol Comment 00:00:00 00:00:00 Tobacco Comment 2016-11-08 2016-11-08 quit 30yrs ago MD Jazmin ackerman 00:00:00 00:00:00 Sex [birth year] MD Medrano on 00:00:00 00:00:00 Smoking Status Start Date Stop Date Source Ex-smoker 2016-11-08 00:00:00 2016-11-08 00:00:00 MD Lester phelps Medications Ordered Filled Start Stop Current Ordering Indication Dosage Frequency Signature Comments Components Source Medication Medication Date Date Medication? Clinician (SIG) Name Name ondansetron Neoplasm, Take 1 tab MD (Zofran) 8 12-25- malignant every 8 Anderso mg tablet 00:00: 00:00 of hours on n 00 :00 endometrium days 2, 3, and 4 following chemothera py, then may take 1 tab every 8 hours as needed for nausea or vomiting. prochlorper No Neoplasm, 10mg Take 1 MD azine 12-25-01 malignant tablet (10 An derso (Compazine) 00:00: 00:00 of mg) by n 10 mg 00 :00 endometrium mouth tablet every 6 (six) hours as needed for nausea or vomiting. acetaminoph 650mg Take 650 MD en - 04-01 mg by Anderso (TYLENOL) 13:01: 00:00 mouth n 325 mg 04 :00 every 6 tablet (six) hours as needed for mild pain. pregabalin Yes Chronic 25mg Take 1 MD (Lyrica) 25 - pain capsule Lester so mg capsule 00:00: (25 mg) by n 00 mouth twice daily. HYDROcodone 2021- No Chronic 1{tbl} Take 1 MD -acetaminop 12-23 04-10 pain tablet by An derso hen (NORCO) 00:00: 00:00 mouth n 5 mg-325 mg 00 :00 every 8 per tablet (eight) hours as needed for severe pain. traMADol 50mg 50 mg MD (ULTRAM) 50 12-20- every 6 Ronan rso mg tablet 00:00: 00:00 (six) n 00 :00 hours as needed. TURMERIC 2021-0 2021- No 1{tbl} Take 1 MD ORAL 3-16 03-16 tablet by Anderso 13:57: 00:00 mouth n 12 :00 daily. Eliquis 5 Yes 1{tbl} Take 1 MD mg tablet 3-14 tablet by Lester so 00:00: mouth n 00 twice daily. Entresto Yes 1{tbl} Take 1 MD 24-26 mg 3-14 tablet by Mitchell o tab per 00:00: mouth n tablet 00 twice daily. furosemide Yes 1{tbl} Take 1 MD (LASIX) 20 3-14 tablet by Ronan rso mg tablet 00:00: mouth n 00 daily. spironolact Yes 1{tbl} Take 1 MD one 3-14 tablet by Anderso (ALDACTONE) 00:00: mouth n 50 mg 00 daily. tablet amLODIPine 2021- No 5mg Take 5 mg M D (NORVASC) 5 2-16 11-23 by mouth And erso mg tablet 10:20: 00:00 twice n 17 :00 daily. aspirin 81 2021-2021- No 81mg Take 81 mg MD mg EC -16 11-23 by mouth Anderso tablet 10:19: 00:00 daily. [...] tablet 00:00: mouth n 00 daily. triamterene No 1{tbl} Take 1 M D -hydroCHLOR 6-30 06-30 tablet by An derso Othiazide 12:22: 00:00 mouth n (MAXZIDE-25 40 :00 every ) 37.5 morning. mg-25 mg per tablet traMADol 2021- No 1{tbl} Take 1 MD (ULTRAM) 50 6-21 -16 tablet by An derso mg tablet 00:00: 00:00 mouth as n 00 :00 needed. pravastatin Yes 1{tbl} Take 1 MD (PRAVACHOL) 6-13 tablet by And erso 20 mg 00:00: mouth n tablet 00 daily. clopidogrel 2021- No 1{tbl} Take 1 M D (PLAVIX) 75 6-16 tablet by An derso mg tablet 00:00: 00:00 mouth n 00 :00 daily. spironolact 2021- No 1{tbl} Take 1 M D one 03-0516 tablet by Anderso (ALDACTONE) 00:00: 00:00 mouth n 25 mg 00 :00 daily. tablet sulfamethox 2021- No 1{tbl} Take 1 M D azole-trime 12-26 tablet by An derso thoprim 00:00: 00:00 mouth n (BACTRIM 00 :00 daily. DS) 800 mg-160 mg per tablet ergocalcife 2021- No [id number] 50,000 M D rol 12-23-23 Units Anderso (DRISDOL) 00:00: 00:00 every 30 n 50,000 00 :00 (thirty) units days. capsule losartan 2019-09 No (COZAAR) 50 1-28 03-16 Anderso mg tablet 00:00: 00:00 n 00 :00 Immunizations Ordered Immunization Filled Immunization Date Status Commen ts Source Name Name AmberWave SARS-CoV-2 2021-05-14 Completed MD Ronan rson Vaccination 00:00:00 Pfizer SARS-CoV-2 2021-04-25 Completed MD Ferraro rson Vaccination 00:00:00 Vital Signs Vital Name Observation Time Observation Value Comments Source Systolic blood pressure 2022-01-05 18:54:00 138 mm[Hg] MD Donaldson Diastolic blood pressure 2022-01-05 18:54:00 82 mm[Hg] MD Donaldson Heart rate 2022-01-05 18:54:00 96 /min MD Batista son Body weight 2022-01-05 18:34:00 100.6 kg MD Batista son BMI 2022-01-05 18:34:00 38.57 kg/m2 MD Batista lenin Body temperature 2022-01-05 18:33:28 36.39 Clarisse MD Bernardo felder Respiratory rate 2022-01-05 18:33:28 18 /min MD Bernardo felder Oxygen saturation in 2021-12-13 19:05:49 98 /min MD Donaldson Arterial blood by Pulse oximetry Procedures Procedure Date / Time Performed Performing Clinician [facility] e PAIN MANAGEMENT FLUOROSCOPY 2022-01-05 18:24:[address] CHEST ABDOMEN PELVIS W 2021-12-30 16:23:53 Christian Driver MD CONTRAST HEPATIC FUNCTION PANEL 2021-12-30 14:38:00 Christian Driver MD ALBUMIN LEVEL 2021-12-30 14:38:00 Christian Driver MD ALANINE AMINOTRANSFERASE 2021-12-30 14:38:00 Christian Driver MD ASPARTATE AMINOTRANSFERASE 2021-12-30 14:38:00 Christian Driver TOTAL PROTEIN 2021-12-30 14:38:00 Christian Driver MD FRACTIONATED BILIRUBIN 2021-12-30 14:38:00 Christian Driver MD ALKALINE PHOSPHATASE 2021-12-30 14:38:00 Christian Driver MD POC CREATININE 2021-12-30 14:37:00 Christian Driver MD US ABDOMEN LIMITED 2021-12-30 14:00:00 Christian Driver MD on CANCER ANTIGEN 125 2021-12-23 16:48:00 Christian Driver MD on COMPLETE BLOOD COUNT W/ 2021-12-23 16:48:00 Neisha, Christian MD A nderson DIFFERENTIAL BASIC METABOLIC PANEL, 2021-12-23 16:48:00 Christian Driver MD derson CALCIUM TOTAL BILIRUBIN TOTAL 2021-12-23 16:48:00 Christian Driver MD ALANINE AMINOTRANSFERASE 2021-12-23 16:48:00 Christian Driver MD ASPARTATE AMINOTRANSFERASE 2021-12-23 16:48:00 Christian Driver MAGNESIUM LEVEL 2021-12-23 16:48:00 Christian Driver MD GLUCOSE LEVEL 2021-12-23 16:48:00 Christian Driver MD BLOOD UREA NITROGEN 2021-12-23 16:48:00 Christian Driver MD Lester son ELECTROLYTE PANEL 2021-12-23 16:48:00 Christian Driver MD n SERUM CREATININE 2021-12-23 16:48:00 Christian Driver MD .GLOMERULAR FILTRATION RATE 2021-12-23 16:48:00 Christian Driver MD CALCIUM LEVEL TOTAL 2021-12-23 16:48:00 Christian Driver MD Lester son Results CBC 2021-12-23 16:48:00 Christian Driver MD MANUAL DIFFERENTIAL 2021-12-23 16:48:00 Christian Driver MD Lester [facility] EKG, 12-LEAD (SCHEDULED) 2021-12-14 00:00:00 Neelam Grant MD COMBINED RIGHT AND LEFT 2021-11-28 16:10:48 Oralia Coronel MD nderson HEART CATH POC OXIMETRY VENOUS 2021-11-28 15:44:00 Oralia Coronel MD Lester son POC OXIMETRY ARTERIAL 2021-11-28 15:35:00 Oralia Coronel MD And erson POC GLUCOSE SCREEN 2021-11-28 14:47:00 Oralia Coronel MD on TYPE AND SCREEN 2021-11-28 13:41:00 Star Treviño MD ABORH 2021-11-28 13:41:00 Star Treviño MD ANTIBODY SCREEN 2021-11-28 13:41:00 Star Treviño MD TMP INTERPRETATION ANTIBODY 2021-11-28 13:41:00 Star Treviño MD SCREEN NEGATIVE CLOT EXPIRATION DATE 2021-11-28 13:41:00 Star Treviñoe rson ECHOCARDIOGRAM 2D COMPLETE 2021-11-21 13:51:52 Oralia Coronel GENERAL LABORATORY ADD ON 2021-11-18 19:50:00 Susan Baird MD TEST COVID-19 (SARS-COV-2) 2021-11-18 18:07:00 Dana Leiva MD PCR-ASYMPTOMATIC MC URINE CULTURE 2021-11-18 17:36:00 Dana Leiva MD on URINALYSIS WITH MICROSCOPIC 2021-11-18 17:36:00 Dana Leiva MD IF INDICATED URINALYSIS MICROSCOPIC 2021-11-18 17:36:00 Dana Leiva MD CANCER ANTIGEN 125 2021-11-18 17:23:00 Martha, Dana Cali MD And markel COMPLETE BLOOD COUNT W/ 2021-11-18 17:23:00 Dana Leiva DIFFERENTIAL COMPREHENSIVE METABOLIC 2021-11-18 17:23:00 Dana Leiva PANEL PROTHROMBIN TIME 2021-11-18 17:23:00 Dana Leiva MD Lester son APTT 2021-11-18 17:23:00 Dana Leiva MD on Results CBC 2021-11-18 17:23:00 Dana Leiva MD on MANUAL DIFFERENTIAL 2021-11-18 17:23:00 Dana Leiva MD GLUCOSE LEVEL 2021-11-18 17:23:00 Dana Leiva MD on BLOOD UREA NITROGEN 2021-11-18 17:23:00 Dana Leiva MD ELECTROLYTE PANEL 2021-11-18 17:23:00 Dana Leiva MD SERUM CREATININE 2021-11-18 17:23:00 Dana Leiva MD [...] MD COMPLETE BLOOD COUNT W/ 2021-10-24 15:56:00 MaguireLos MD DIFFERENTIAL CARBON DIOXIDE LEVEL 2021-10-24 15:56:00 MaguireLos MD CHLORIDE LEVEL 2021-10-24 15:56:00 MaguireLos MD SODIUM LEVEL 2021-10-24 15:56:00 MaguireLos MD POTASSIUM LEVEL 2021-10-24 15:56:00 MaguireLos MD SERUM CREATININE 2021-10-24 15:56:00 MaguireLos MD BLOOD UREA NITROGEN 2021-10-24 15:56:00 MaguireLos MD PROTHROMBIN TIME 2021-10-24 15:56:00 MaguireLos MD GLUCOSE, RANDOM 2021-10-24 15:56:00 MaguireLos MD TYPE AND SCREEN 2021-10-24 15:56:00 MaguireLos MD Results CBC 2021-10-24 15:56:00 MaguireLos MD MANUAL DIFFERENTIAL 2021-10-24 15:56:00 Maguire, Los Batista son SERUM CREATININE 2021-10-24 15:56:00 MaguireLos MD .GLOMERULAR FILTRATION RATE 2021-10-24 15:56:00 MaguireLos MD ABORH 2021-10-24 15:56:00 MaguireLos MD ANTIBODY SCREEN 2021-10-24 15:56:00 MaguireLos MD ANION GAP 2021-10-24 15:56:00 MaguireLos lee MD TMP INTERPRETATION ANTIBODY 2021-10-24 15:56:00 MaguireLos MD SCREEN NEGATIVE CLOT EXPIRATION DATE 2021-10-24 15:56:00 MaguireLos MD COVID-19 (SARS-COV-2) 2021-10-24 15:53:00 Fermin Hoffman MD [...] DENSITY STUDY 2021-10-07 22:29:00 Mateo Chavez MD An derson Malena OSI MAMMO BILATERAL 2021-10-07 22:29:00 Mateo Chavez MD Lester son Vinodchandra PATHOLOGY BIOPSY 2021-09-30 19:11:00 Christian Driver MD INTERPRETATION CANCER ANTIGEN 125 2021-09-30 17:35:00 Christian Driver MD on CANCER ANTIGEN 125 2021-03-23 15:41:42 Christian Driver MD on Plan of Care Planned Activity Planned Date Details Comments Source Future Scheduled Test 2021-06-11 00:00:00 COVID-19 Vaccination (Stephani Donaldson - Inadvertent risk 4-dose series) [code = COVID-19 Vaccination (3 - Inadvertent risk 4-dose series)] Encounters Start End Encounter Admission Attending Care Care Encounter Source Date/Time Date/Time Type Type Clinicians Facility Department ID 2021-12-16 Outpatient [facility] MDA [id number] 13:07:24 PROVIDER Mitchell o [place] 2021-11-07 Outpatient [facility] MDA [id number] 11:25:34 PROVIDER Mitchell o [place] 2021-11-04 Inpatient DILLON LEIVA SUSTAINABILITY COACH [id number] 16:17:09 DANA Strong Mitchell o [place] 2021-10-19 Outpatient [facility] [id number] [facility] [address] 14:40:33 Jose Dionicio l Outpati ent Clinics 2022-01-05 2022-01-05 Outpatient KYLER STEVENS MDA MDA [id number] 13:21:42 14:36:13 NOLBERTO Mitchell o n 2022-01-05 2022-01-05 Outpatient EL STEVENS, MDA MDA [id number] 13:24:08 13:24:08 NOLBERTO Medrano o [place] 2021-12-30 2021-12-30 Outpatient KYLER LEIVA, MDA MDA [id number] MD 12:28:59 12:28:59 DANA meza 2021-12-30 2021-12-30 Outpatient KYLER DRIVER, MDA MDA [id number] 09:01:22 09:01:22 CHRISTIAN Medrano o [place] 2021-12-30 2021-12-30 Outpatient KYLER DRIVER, MDA MDA [id number] 08:09:31 08:09:31 CHRISTIAN Medrano o [place] 2021-12-30 2021-12-30 Outpatient KYLER DRIVER, MDA MDA [id number] MD 08:09:00 08:09:00 CHRISTIAN Medrano o [place] 2021-12-23 2021-12-23 Outpatient KYLER DRIVER, MDA MDA [id number] MD 11:48:07 12:10:51 CHRISTIAN Medrano o [place] 2021-12-23 2021-12-23 Outpatient KYLER STEVENS, MDA MDA [id number] MD 11:56:16 11:56:16 NOLBERTO Medrano o [place] 2021-12-23 2021-12-23 Outpatient KYLER DRIVER, MDA MDA [id number] MD 11:55:41 11:55:41 CHRISTIAN Medrano o [place] 2021-12-20 2021-12-20 Outpatient KYLER DRIVER, MDA MDA [id number] MD 16:14:40 16:14:40 CHRISTIAN Medrano o [place] 2021-12-13 2021-12-13 Outpatient KYLER GRANT, MDA MDA [id number] 15:12:24 23:59:00 NEELAM meza 2021-12-13 2021-12-13 Outpatient KYLER CORONEL, MDA MDA [id number] 13:56:30 15:20:07 ORALIA meza 2021-12-07 2021-12-07 Outpatient KYLER LEIVA, MDA MDA [id number] 13:01:24 13:01:24 DANA Medrano o [place] 2021-11-28 2021-11-28 Outpatient KYLER CORONEL, MDA MDA [id number] 07:30:00 23:59:00 ORALIA meza 2021-11-28 2021-11-28 Outpatient HUDSON, MDA MDA [id number] MD 07:11:29 07:29:00 STAR meza 2021-11-21 2021-11-21 Outpatient SAAD, MDA MDA [id number] MD 07:00:00 23:59:00 ORALIA meza 2021-11-18 2021-11-18 Outpatient MARTHA, MDA MDA [id number] MD 11:00:00 23:59:00 DANA meza 2021-11-18 2021-11-18 Outpatient MARTHA, MDA MDA [id number] MD 12:27:48 15:24:25 DANA meza 2021-11-18 2021-11-18 Outpatient NEISHA, MDA MDA [id number] MD 15:22:16 15:22:16 CHRISTIAN meza 2021-11-18 2021-11-18 Outpatient MARTHA, MDA MDA [id number] MD 12:28:16 12:28:16 DANA meza 2021-11-18 2021-11-18 Outpatient MARTHA, MDA MDA [id number] MD 11:58:51 12:12:03 DANA meza 2021-11-16 2021-11-16 Outpatient SUNSHINE, MDA MDA [id number] MD 09:38:14 23:59:00 LOS meza 2021-11-16 2021-11-16 Outpatient SAAD, MDA MDA [id number] MD 09:37:56 10:51:59 ORALIA meza 2021-11-04 2021-11-04 Outpatient MARTHA, MDA MDA [id number] MD 15:20:54 15:20:54 DANA meza 2021-11-04 2021-11-04 Outpatient NEISHA, MDA MDA [id number] MD 12:28:30 12:28:30 CHRISTIAN meza 2021-11-04 2021-11-04 Outpatient NEISHA, MDA MDA [id number] MD 10:28:13 10:28:13 CHRISTIAN meza 2021-11-03 2021-11-03 Outpatient [facility], MDA MDA [id number] MD 16:09:24 16:11:25 DANA Medrano o n 2021-10-28 2021-10-28 Outpatient [facility], MDA MDA [id number] MD 16:20:12 16:20:12 DANA fraser n 2021-10-28 2021-10-28 Outpatient [facility], MDA MDA [id number] MD 16:20:11 16:20:11 DANA Medrano o [place] 2021-10-28 2021-10-28 Outpatient [facility], MDA MDA [id number] MD 16:20:10 16:20:10 DANA Medrano o [place] 2021-10-28 2021-10-28 Outpatient [facility], MDA MDA [id number] MD 16:20:09 16:20:09 DANA meza 2021-10-28 2021-10-28 Outpatient [facility], MDA MDA [id number] MD 16:20:08 16:20:08 DANA meza 2021-10-28 2021-10-28 Outpatient [facility], MDA MDA [id number] MD 16:20:07 16:20:07 DANA meza 2021-10-28 2021-10-28 Outpatient [facility], MDA MDA [id number] MD 16:20:05 16:20:05 DANA meza 2021-10-26 2021-10-26 Outpatient [facility], MDA MDA [id number] MD 19:02:00 23:59:00 DANA meza 2021-10-25 2021-10-25 Outpatient [facility], MDA MDA [id number] MD 09:26:28 23:59:00 DANA Medrano o [place] 2021-10-24 2021-10-24 Outpatient [facility], MDA MDA [id number] MD 10:13:24 23:59:00 DANA meza 2021-10-24 2021-10-24 Outpatient [facility], MDA MDA [id number] MD 09:55:40 10:10:08 LOS Medrano o sus[place] 2021-10-24 2021-10-24 Outpatient EL LEIVA, MDA MDA [id number] 09:43:01 09:54:27 DANA meza 2021-10-14 2021-10-14 Outpatient KYLER LEIVA MDA MDA [id number] 14:03:17 14:03:17 DANA meza 2021-10-13 2021-10-13 Outpatient KYLER DRIVER MDA MDA [id number] 07:10:42 07:10:42 CHRISTIAN meza 2021-09-30 2021-09-30 Outpatient KYLER DRIVER MDA MDA [id number] 11:50:15 13:51:12 CHRISTIAN meza 2021-09-30 2021-09-30 Outpatient KYLER DRIVER MDA MDA [id number] 11:34:41 11:41:58 CHRISTIAN meza 2021-03-23 2021-03-23 Outpatient KYLER LEIVA MDA MDA [id number] 11:10:26 11:10:26 DANA meza 2021-03-23 2021-03-23 Outpatient KYLER DRIVER MDA MDA [id number] 10:25:02 10:41:31 CHRISTIAN meza Results Test Description Test Time Test Comments Results Result Comments Source POC Creatinine 2021-12-30 14:39:53 Test Item Value Reference Range Interpretation Comme nts POC Crea (test code = 36171-1) 1.1 mg/dL 0.6-1.3 Medications, especially hydroxyurea or supplements, such as ascorba te, can interfere with test results causing a false ly and significantly h igher result than expected. If a problem is suspected with a patient's result, a sampl e should be sent to the [facility] for confirmatory te sting. Method description: Th e i-STAT is an analyzer used f or in vitro quantification of various analytes in who le blood. The device uses a s yesi disposable cartridge which contains microfabricated sensors, a calibration [email or web address], fluidics system, and a w aste chamber. Each test cartr idge contains chemically sens itive biosensors on a silicon [employer] ip that are configured to p erform specific tests. The micr ofabricated sensors measure analyte concentration b y an electrochemical assay. POC eGFR-AA (test code = 59 See_Comment L Nor mal eGFR >= 60 mL/min/1.73 46478-3) m2 The eGFR is calculated using the CKD-EPI equ ation. The eGFR declines with a ge. eGFR <60 mL/min/1.73 m2 is considered as "decreased" Thi s equation should only be used for patients 18 and older. According to th e National Kid[employer] on's Kidney Disease Outcome Quality Initiative (KDO QI) classification and 2012 Kidney Disease Improvi ng Global Outcomes (KDIGO ) Clinical Practice Guidel ine, the stage of CKD should b e categorized based on estima elena GFR. Stage Description GFR mL/min/1.73 m21 Kidney damage w ith normal or high GFR >= 902 Kidney damage with mil d decrease in GFR 60-893a Mild to moderate decrease in GFR 45-593b Moderate to sev ere decrease in GFR 30-444 Severe decrease in GFR 15-29 5 Kidney failure <15 (or chandni lysis) [Automated mess age] The system which generated this result transmitted ref erence range: >=60 mL/min/1.7 3 m2. The reference range was not used to interpret this result as normal/abnormal . POC eGFR-EVELINA (test code = 51 See_Comment L No rmal eGFR >= 60 mL/min/1.73 95499-3) m2 The eGFR is calculated using the CKD-EPI equ ation. The eGFR declines with a ge. eGFR <60 mL/min/1.73 m2 is considered as "decreased" Thi s equation should only be used for patients 18 and older. According to th e National Kid[employer] Found[employer] on's Kidney Disease Outcome Quality Initiative (KDO QI) classification and 2012 Kidney Disease Improvi ng Global Outcomes (KDIGO ) Clinical Practice Guidel ine, the stage of CKD should b e categorized based on estima elena GFR. Stage Description GFR mL/min/1.73 m21 Kidney damage w ith normal or high GFR >= 902 Kidney damage with mil d decrease in GFR 60-893a Mild to moderate decrease in GFR 45-593b Moderate to sev ere decrease in GFR 30-444 Severe decrease in GFR 15-29 5 Kidney failure <15 (or chandni lysis) [Automated mess age] The system which generated this result transmitted ref erence range: >=60 mL/min/1.7 3 m2. The reference range was not used to interpret this result as normal/abnormal . POC Clean Dev (test code = Yes 6672) Performing Lab (test code = [facility] [address]) [facility] MD Donaldson-[facility] son, [address], [place] [address]; Point of Care Station Manager: Eli anders MD Lab Interpretation (test code Abnormal = 58536-6) MD DonaldsonPO Oximetry [id number] 20:46:40 Test Item Value Reference Interpretation Comments Range POC O2 Saturation, 100.0 % 95.0-99.0 H Arterial (test code = 06517) POC Oxyhemoglobin, 98.8 % 94.0-98.0 H Arterial (test code = 79429) POC Hemoglobin, total 10.5 g/dL 12.0-16.0 L (test code = 80144) POC Carboxyhemoglobin <0.2 0.0-1.9 (test code = 74226) POC Methemoglobin 1.8 % 0.0-1.5 H Method ronak cription: (test code = 53031) The ABL8 0 FLEX CO-OX OSM analyzer [...] sa mple. POC OX Draw Site (test Aorta code = 57127) Performing Lab (test [facility] Main [place] mpus code = 81667) [facility] MD Donaldson Cli nical Lab, [address] [facility] [address], [place] [address]; Station Manager: Tanya Navarro MD Lab Interpretation Abnormal (test code = 15936-5) MD DonaldsonTM Interpretation Antibody Screen Wccmifys1931-61-27 17:46:53 Test Item Value Reference Range Interpretation Comments TMP Auto Neg At the present ABSC Interp time, patient (test code = plasma shows no ____JESSI ROGERS 7535) evidence of RBC MD PATY, P hD - alloantibodies. [id number] d by: Mookie HERNÁNDEZ, PhD - [id number] D ate/Time: 11.28.2021 11:4 6 AM CALL PERSON Transcribed Da te/Time: 11.28.2021 11:4 6 AM CSTElectronical ly Signed By: JESSI NEWMAN MD, PhD - [id number] on 11.28.2021 1 1:46 AM MD DonaldsonXqceinhfWXNHr8314-09-62 16:52:30 Test Item Value Reference Range Interpretation Comments ABORh. (test code = 882-1) O POS MD DonaldsonClot Expiration Pzgv2938-56-74 16:52:26 Test Item Value Reference Range Interpretation Comments T & S Expiration (test code = 12/01/2021 5318) MD DonaldsonAntibody Ymcebf0423-00-91 16:51:56 Test Item Value Reference Range Interpretation Comments ABSC. (test code = 890-4) Negative ABSC MD DonaldsonPOC Oximetry Iyigwd5162-37-21 15:45:17 Test Item Value Reference Interpretation Comments Range POC O2 65.0 % Saturation,Venous (test code = 99093) POC Oxyhemoglobin, 63.5 % Venous (test code = 71853) POC Hemoglobin, total 10.6 g/dL 12.0-16.0 L (test code = 62028) POC Carboxyhemoglobin 0.5 % 0.0-1.9 (test code = 02792) POC Methemoglobin 1.9 % 0.0-1.5 H Method ronak cription: (test code = 03607) The ABL8 0 FLEX CO-OX OSM analyzer [...] Draw Site (test R atrium code = 55132) Performing Lab (test [facility] code = 02622) [facility] MD Donaldson Cli nical Lab, [address] [facility], [place] [address]; Station Manager: Tanya Navarro MD Lab Interpretation Abnormal (test code = 64873-2) [facility] Glucose Cyydud0515-54-76 14:58:52 Test Item Value Reference Interpretation Comments Range POC Glucose (test 102 mg/dL 70-99 H RN Notifie dCapillary code = 01766-2) blood sample s, e.g. obtained by fingerstick, [...] Capillary code = 9554) Performing Lab (test [facility] code = 03066) [facility] MD Jazmin ackerman Clinical Lab, [address] [facility], [place], [place] [address]; Station Manager: Tanya Navarro MD Lab Interpretation Abnormal (test code = 16514-8) MD DavisVIAdeline-19 (SARS-CoV-2) PCR-Asymptomatic [id number] 04:33:25 Test Item Value Reference Range Interpretation Comments COVID19 (SARS Not Detected Not Detected CoV-2) Result (test code = ____[place] i s a 58680-6) qualitative reverse-transcr iptase polymerase sukhdeep n reaction (RT-PC R) developed for t he [employer] DERECK 680 0 system and inte nded [...] patients provid ed by the manufacture r ([employer]) c an be reviewed at:https://www. fda.go v/media/410277/ kallo ad. A fact shee t for Health Care pro viders is provided by the chief operations officer ([employer]) and can be reviewed at: https://www.fda .gov/m edia/092032/alba nload Results must be interpreted wit hin [...] were verified by the Microbiology Laboratory at [facility] [place], CLIA Accreditation # : [id number] and CAP Accreditation # : [id number]. COVID19 SARS FLARE MAKER Swab Source (test code = 85358) COVID19 SARS Pre-OR Procedure Indication (test code = 39003) MD DonaldsonGtaewforLAV6268-60-60 20:51:59 Test Item Value Reference Range Interpretation Comments TSH (test code = 2.77 See_Comment [Automated message] The 93011-4) system which ge nerated this result transmit elena reference range : 0.27 - 4.20 mcunit/mL. The reference range was not used to interpr et this result as maury l/abnormal. MD DonaldsonFrpamela [id number] 20:51:58 Test Item Value Reference Range Interpretation Comments T4 Free (test code = 3024-7) 1.57 ng/dL 0.93-1.70 [facility] Add-On Mkxb1408-20-90 20:06:39 Test Item Value Reference Range Interpretation Comments Ordered (test code = 6568) Test Added Test Needed (test code = 7604) TSH, Free T4 MD DonaldsonUrinalysis with Obgxiuycspo4495-16-90 18:41:22 Test Item Value Reference Interpretation Comments Range UA WBC (test code = 3 See_Comment H [Automa elena 25472-4) message] The system which generated this result transmitted reference range : 0 - 2 /HPF. The reference range was not used to interpret this result as normal/abnormal . UA RBC (test code = <1 See_Comment [Automa elena 73649-8) message] The system which generated this result transmitted reference range : 0 - 2 /HPF. The reference range was not used to interpret this result as normal/abnormal . UA Mucous (test code NOT SEEN Not Seen-Trace = 20365-3) /HPF UA Bacteria (test NOT SEEN NOT SEEN /HPF code = 42893-9) UA Squam Epi (test OCC None-Occasiona code = 81902-9) l /HPF UA Trans Epi (test OCC NOT SEEN /HPF A code = 84552-8) CHRISTOPHER (test code = Some reporting CHRISTOPHER) parameters within the Urinalysis test have changed due to the implementation of new instrumentation in the [facility] [place], allowing greater sensitivity of measurement. Urinalysis results reported by the [facility] using existing instrumentation, as well as Urinalysis testing performed manually or by backup methodology at the [facility] [place] will remain relatively unchanged. New reporting parameters and units will now be reported for all campuses. Lab Interpretation Abnormal (test code = 16321-5) MD DonaldsonPclqjmxwpFLY8628-23-81 18:18:01 Test Item Value Reference Range Interpretation Comments aPTT (test 35.9 See_Comment [Automated mes alexis] code = The [place] whic h 44461-8) generated this result transmitted ref erence range: 24.7 - 3 6.8 second(s). The reference range was not used to int erpret this result as normal/abnormal . CHRISTOPHER (test code This lab cannot be = CHRISTOPHER) scheduled at the following locations due to collection/proccess ing restrictions: [facility] and [facility]. MD DonaldsonProthrombin Time with [id number] 18:18:00 Test Item Value Reference Range Interpretation [...] following locations due to collection/procc essing restrictions: [facility] and [facility]. Lab Interpretation Abnormal (test code = 66215-0) MD DonaldsonHemoglobin [id number] 18:14:44 Test Item Value Reference Range Interpretation Comments A1C (test code = 5.6 % 4.3-5.6 HbA1c value s >=6.5% are 4548-4) diagnostic of d iabetes mellitus.Diagno sis should be confirmed by repeat testing.Therape utic Action suggested: >8.0 % HbA1c; Goal oftherapy: <7.0% HbA1c MD DonaldsonUrinalysis w/Microscopic if Nqyobaghl7387-30-71 18:07:36 Test Item Value Reference Range Interpretation Comments UA Color (test code = 51547-6) Yellow Straw-Yellow UA Appear (test code = [...] A Lab Interpretation (test code = Abnormal 53843-5) MD DonaldsonUS Breast Complete - Zseadxwih4861-73-94 19:45:45 Test Item Value Reference Range Interpretation Comments Radiology Study observation (narrative) (test code = 18442-4) IMP (test code = No mammographic evidence [...] Evaluation Lab Interpretation Abnormal (test code = 04041-3) [facility]2021-11-04 19:45:45 Test Item Value Reference Range Interpretation Comments Radiology Study observation (narrative) (test code = 96070-2) IMP (test code = No mammographic evidence [...] Evaluation Lab Interpretation Abnormal (test code = 01829-8) [facility] Image-Guided FNA Tsrsslfyqboayh8699-79-78 00:43:00 Test Item Value Reference Range Interpretation Comments Gross Description (test o7pnxYQnNWRarJLBVImd code = 2523995126) WLvijzLnOCJaiZBkV9Lw ytvmQMwmVM8yOT9nqFav dGNskZVqAU5YGQXoUxTg XHBhcGVydzEyMjQwXHBh zVNlqKR9IKHkAG5myzwi KBmvVTdxWTEctmQ5FTSp nLEtW0HwRIXzBZ6yspgt SFQ8ZOdzeA3jtoZICsbk Ix7zgNQagPxsNgZxOsCd YXJzZXQwXGZuaWwgQXJp ESn3pQ5DBnjwL20cy4F2 Kqh0FHRqPUDoR7IyDJ5v EDNiwSOsE76XZhcdCQI7 ERTYBrunTXYbQG4Iq5eh GDGreCJmWSO0IRbbeUFo MGEkTQMxGDy2DKJbCWwr xPOoUJ9djZljJmddwYyi a6TyzDGjWMwuGFTgMDZi IAhrBFFrUU9UEdUhGIWp EJHbECZmSRs9QQy1QV2J AlScBINrFRUeYgk8YEHd HIo2ITbmME0TNAk9EkK8 DCC0VCP9PYC7KJTiFLMo MiBcXGYgQXJpYWwgXFxm cyAxMCBcXGZiIFxcZmwg ZSsoT91suTipgC2sEqyg mgPpKXA6KGDyjmXZYolw bGFpblxlcGljTmVzdERv YzEgDQpcbHRycGFyXGxp bjBccmluMCANClxsdHJj aFxjZjFcZnMyMCBTcGVj zJ6vjbLdiJJpP5MkEUU0 XHBhciANCjMgRGlmZiBR dWlrOyAzIFBhcCBTdGFp tdJUiChdVWWrhZDkBJ1M DMCpyGphGVolxl71YZY6 o8ttkRAcBAnyCszmmLAw tjD2CWcQRKJFEXgYDbEn RC1iREjFI4GRAOgDXqna GVG3VYlraHL0w7dwgZKf k0s5OIelPMT6cPTioCeo oGt9BBRwd8CxsYScjLBo yYWakWI1XTQqLOgay5so YRDeIUzab3AfMHcICUVJ TS9YYD4gzLR0S5eATUJT D7lRiUN1p4stgJBhe0s5 FFjbCKK9eNIlp37ehQdu KnbyhIR5RLflQdevoP5n dCBIWVBFUkxJTksgbmFt PD8QXLpYSY6DuYS2m5pn nDCcx6s9NAgsVXA4nDzt qGOnqzjdtAJteGliwy19 YZI8ELTxPCbvbnQgDQMd mFOdDIcaFxpxfDH0OKzv KlpeiL9jaJSNCBOOXaoB NkvidgKvTS4YLZAKSU2O oVU3GbQqiQJ3IW95VDNd SARulITmBWgdO831EVMb LMlhHEl7zvEpFDFxMWfy jbJmTALzkdGQGG1KJTHl ciANClxjZjAgMSBDZWxs BSLxd9TrFMPkpyVLBsGy dGUvVGltZSBQbGFjZWQg mR7tUk4nyBUuyF26NAba bb71HOM0r2xjoLJpFTnt VxgivXDjygZ7ENsIONRV DTfRSoQjYT8gZXyRSpaT MHaAJwi4AYE2LaitgIYN LXVLADRQCMlmbRj9CKu0 fXtcZmxkcnNsdCBcJzFD oF0vGp5aRI7bSjcoWxnb xOW3IFtvXzxbgQ3jgPXU LVFHIqgDSzisajKeIE6H VJ6QCO6OkAEpEWvocCJ6 KS7SXEcELZEMmMN5nFeo xKg7h6gvuIChw2s0WBzr LTY7wNsatFLqbmyrxUAg aFxmczIwICBccHJvdGVj aUraXbiihLD3ZXqoCwkp kY4imGNLZTLKYwsTSjgd hiFtVT4UJI2IRgXNGD72 OZD2WLrFS9y7UMd1gLW0 zG26KJUsMGSboTDvFUog J183AAlsJMTZRLxzCyqu bOH8MMpkUmrgxC7bdOWL VMUVRejFGwyiohNnWP4Q DP2HAC3NtUodlZG3Dd8K xFA2qIkzpUf8v3pspLEs d4n8MPgrKAI4bGumrXXd blxsdHJjaFxjZjFcZnMy YFkrZMElDYjrmLKlHM2L V7q8IMueVV6hZQJqWLVp ypVNJeyxdKQmkJV1QAUn f6Ids8NrNM33STJkbvTl vPIrlX1vsvRzTGTdtPBh nAK5UFIfiNDtYJSrbOSn mKPxsWtjGfavvNR3XOvi FhydjD6amCHCZDZNJcyU MsqezbUmUZ5BCWQCVtTB DQ99VeF2UbX4XJx4iLbx YtcmomXkuSMmFmDKiG69 FRopOurmhBC5MOrqNoou eI3iyCQOREQOAtnHKivp iiByXQ0GOTUYBV6IjDX7 KzN3dEC0CJ96PGDbKHFz oJRfCMghB061MZEjHMpp TMw9nsDrHTZwYYvgmiLj ZHRhaUNKnu1jM4SuSQUn INfjklZTUBGEYXeYC2Ik JDHADBUVGGRoGvAZWW1s DrE8WzE0ZV32NlrxOtM1 IxC1pTC9YIRIYHSRUReN U6FrAYVDYSNXXKKuJC1V YRrEGRFWYFRJO38DTJRT XHIJF7CMC5uGJBPjz0Mj f69ufIoKFZGNMCCHB67W HEHIVKBUJ7KEMORUQGKS RIuMZOYUXi3XYCCAWCQL MO8GPXxGCmGsOTmasBEc VSsrBOA1LMv6XHc1fUJk b2SkqIL5JyR6UiQwiMJA ARNJNUdQSIABHz6FBLNT UGNUGB5TClBbN1PGUO2J Ge4MOLBQBXJPQD0EXPkH CbGiK0BNHP2OLb3FIYOO XYBVGN7ILuUlYNITU6OK HdXRG7heLJPDPPFUBPFf JcPRLF4zYUEVUR8YORON GDKBQ12ORJTKHPTLC5JF XL9DIKAgbCMRRDA7EA2d VUq2MTkyYSYdJ8UuB2Ox djOppLNyEGKfabNus7ef DKO4GTUhlZVimLRyGiJn XsddZWY2PIBsAJqpTR6L NHSmZDH9NLaofA29oOMd HX9SJTEpXZbrXPSwWIXu uyX6EAQvjEYaKYR5EO1o pOwipQQsifekgmD3JU6P fQ== Immediate Assessment Adequate (test code = 9837) cellularity, favor malignant Major Classification MALIGNANT A (test code = 9839) Diagnosis (test code = b8pdxVJuWHUstZL2LwLv 34) RIFip3ckp0HgsUIkeVFt EYntyMBdfdWgxg70zBT2 cN07ED3eHXEyGtV6HNCf dyC2Vod4JAQtOCLvhWRp A268r4hwn6icmvUebVE0 PAFnLINsD5ApDD7sAIFq oVIdQ48xvSCvMUK7ZGDu EXAdbHWtSCWmREJ1JAXf wLVqH1rlUBVtBJ0hbhqy ZPheCEfrFXZayZT6ZPCm jBZfK5YgHNOsPNneLTDy yrk1BzWqBf2hwSLopHpb BQekW9sayU0kJkL9BYeq V9equP7pECo8DAuhXABb bQL0ugV7NIVdbEFvA5Kj uU3pLAFaZF4bnia9u7dh GYW2SUvsSZZsHsB5plV1 NDBccGFyZFxwbGFpblxm thNkSDBmNZDBIgOPd1A9 FVIkv0A3SXuinBTquOGi THl5uHJbNDDtmcFkqjXq COowFPZyaZodQXBvz171 NSZzbvd7RALmjNOuVQyk GrNkAOnJH7zzT9WGXABb A5FAL8wSV87VTJDLKxNW S8TAMyUeD6cEQBSIEOKD KV9XF1QqRYtKWS6ZJQCV XqKYSScOKQQHFC3tFDBY KZLXLTTvp2UxKFWrvI1n bnQpXHBhcn0= Comment (test code = r0rttUUbZQZrqTJ3KqJq 9835) WKUyx3yfk2SxhSGlbJVh RRnkoDNpvvKlue83zKI3 tA70EO8wLFAcRtF3XEHq bqP9Riy5TOMpFBYpbQWf Y817k6tfj3zdcxSdzBF9 fDtmJEXeeqboMyB8FDcp XICpwoxzQUu7BJdlHTYz aGC0IBWwfFIhS5FnGJZq VO2ipjd9DHZ1OJlhIXDc TlZ6NURvmJEoUMKwxBii PTnxm133RWM4YwAdWXCn qhSbqUzdoK3cGmQpOWCJ yZ71re8qyHShweSlvREq Dc8xgDCfTY0hGVGiQXLw XVxiLDRss2EzBXJfA8Ez g51wTCBqb4inuDsxbTO7 vBOnaMWnz8WzZ9VhlCMd MLSaDZYga2k2hNDuNNMr wuWDMQkbHAxgS8PtUXPz Xs7dIVhaXYRxIGYrSOMi TaE4j5EdBALkTWJLJmTy ZzWsSP1eBFA6lG2gZBRa ySjojgYyhTKaXN5wPOtq h2EkYludKGceZ1MgQJLs ZKftSNtvKIMnpigha1w2 eMT0nMVpaZO4tSKmhAib JJmqo7zgXMczc4Sjbywe v2Ibn7Sxy2MxADVodmLp qy2lOQ3emZItIGZaBDNc DMawHRRpp7VrQBNxJYKm itP3dU9xFKvdlpIwi263 cndrwQAgskqjlS58CEXu qmW8dAMgUENriaXuIGbo Y15qp1sqUfDxwZZdZPKj B01pB8OcttZkuRVpk8Qn ZG3zBHMrVUCoiJ8qf4pv BRZrKg7kTWVdVKZhdbPn pGDhCWR3WJooXWExCQ2a cGFyfQ== Retained/Biomarker l6wteUYpAUIryUG8PrPt Testing (test code = UZRrc8qza1ItrLCevZJm 9838) TPsvpIWuosQvxt04zDM2 kZ17WW7tZYCkQbE3HXXl iqA4Wtq6FLErNTQrcWEi M937k3idq9kbgxNtiKH4 gDudDCVgkykyCnO9SXrg ZVOieeqqTIa6LKfnULUj fKX0OTUtvDQlK2ElAAQx XZ2vltx4FWC2MDaxUUBe TdD3PKPtaRPcCTZbyLvq VDlly888BWT8MiWiRUNq knKzuWwtlD1yWyUbKFTB Qbf7TqadWjTGNER2XBRx tIYbGA7NPSRCFif9NU9z QEEwfEFlWL3UXXRDDFA0 E6DweQCeDN7HNVZMACuc R7reMESwGGMKOGLJD9v6 MVNccGFyfQ== Informational Points z6nnbXUqUDQbeOWrKiKt (test code = 9836) CBTmNQDzz3cqNRLrgOPi ZzEwMzNcZnRuYmpcdWMx FXUtGfJpa2uib111vCZc z5nkEIVmQeG0yOAnEYLf lYBmX848FSZtLByys4ro v0QxOMZlbJYgy5L4VYDZ VQdfFIIRLKv3t6ljPjPd IhS4yIEvXEurH6gimtZl cOUeWBNhQLc3rT55BYSa aW1coKFzMDqdtuQuZzT6 GAhqOHQqHxP1RLRvkQRv UBWjR6bsSUGbODcwSNCf DRvrnIIuHQQ9dFekx6L7 bGVzaGVldHtcZjBcZnMy DnHMf6KxTSr7aSnvG0Cr NWMbQnM0yBZkCGWoKEhy PBCqJVEcklS5xJ41IZwc wsI5pJEio0Pci25kn211 eA1jdGQwMRQ6VFZaDYVl wJOjRMUhVGP4USJswBFg G5mrBLQiIS5hpmfgOErh DKhcJROcvYL1EYXkwVGb S1PgBHZoLMyfQOOuyyz4 VvJdUu3ndLCkzBdmEJed n3eou9qztXYbNke3SPSd XeWyIkcbRAggv9Lfm0ke SBQpbg3cLQQ2yIKlsUgn f5W2rBMbPBYolIRxizZq YCZtew39pOCigBTpbNZt wr2fawNghGPmoAUpUFC5 cHNocnRuXGZldDRcYWVu ENJgT9dqQuPyttCaC3vk C1UqPXZwONCvMUVlVmSa tgRte2Mah9ZyiMDeaXh8 g3wlAFLfPCWoeOful4if APT7GYIpX0L2iOOqp6xr BVjlCQLacYW3zbW0SSSh hIUgV9WjhF4nSEMwBX9n qdy4a4fcJHG0FZqtQMSu YnB3awD8NBJxlTTxFPTb wUsxAJzib665ALL4HvNg HBYmw0KkY2HksQrbW50x nOkyK62sJTAwrBtkkD3u pCuufT6tRxWuAxBoJGcw bFxwbGFpblxmMVxmczE4 LBaouhqmRYUgHEpbS2zp VgLvESDutCxwRKuah4So LAKgOXBsWJrurKFYn98b OROqf3VxYHQfdT5vyFKv QBkdasXobYA1PFgofmGj SoYbrmMwFKWjzV7yRIPa ZM8xROSupoEzhi8xzbSq QGHnMWKbZ1VezoppyZwk nwCaJGAyvi3evzAtVRY4 YAFKDU2GDXZuBFGro50a LUVoyZsofU3yyISlylBa GPEsa8CoiF8fjOYAYVTm B5mhFU3bCOgwf4IwgDUp sRAtkYL1JWCxk6HmOlAx ueNeyFNcpJYmO6OelRfl I2msCZGdSFKofvSyeKCo c7YhSUMkmKE9vVVwTP6R LoRVh09qVBGhTVZPlsBi ZFQvzKsnsVI8ttM7kF7v VfBAoHwpBRMfv1Slb8Om H0icVSAuUETbbKFflDiz oM2yWjOoBkHxGGqxLL0e QSKkB7cmrTEmFALsEAUk Y0zjAkTpeW8wiAgkNAzc ZjJcZnMxOFxsdHJjaFxp NWtkn0FvUX24d5EaznHL jPQhfEF0hY7nx9o4TOac Pa4iBDMmoxsfmEunvX2w BqGuYjZwDJasHY0yDCWx U7zhjUZiAVYlQFNvZ8ez KsBswK6knBvgDPonTbGq ZnMxOFxpICwgXHBsYWlu XGYxXGZzMThcbGFuZzEw MzNcaGljaFxmMVxkYmNo TFQhKVgvH6glNaAxY1Lz CPUyBPzfzUClZ8evjYWp DjzqXTNYVKR4GXWvASI8 IDepEHufsUN7a55iCYNs kNIiNZv0REu0ZEQaWWwx XGYxXGZzMThcbGFuZzEw MzNcaGljaFxmMVxkYmNo ERQiNUxpC7uaPeHqK8Wv XGZzMThcaSAuXHBsYWlu XGYyXGZzMjJcbGFuZzEw MzNcaGljaFxmMlxkYmNo LTHoUTtuD1rjIaWmZfGb MlxwYXJ9 Lab Interpretation (test Abnormal code = 56867-4) [facility] Bbnejzjryypxso8800-50-67 00:21:10 Test Item Value Reference Range Interpretation Comments Submitted Clinical History v0qegQRhONMjg6dyKYT (test code = 68589) mbGFuZzEwMzNcZnRuYm pcdWMxIHtccnRmMVxzc 4UwE5GuCeDfPEbkyzSg XGRlZmxhbmcxMDMzXGZ 0bmJqXHVjMVxkZWZmMH myBd0oxNZtsIvzAwMxA IOpv6dupzSDwkkiuFz6 j5ucGTPfLpL9oVTpVFu fX5xkspAnuOCcXFErGU f4qD64AWEkhD4djOLpW VhrzyUkMoL7RDrfPZPr OmP3CUZygVYvZNVoQ9e yZWQwXGdyZWVuMFxibH RgSQM5oJljb5V4uEXur GVldHtcZjBcZnMyMiBO u4RwQPp6kRusP7FpJOY eTiT0bZMaSRCsAUgiQE FbNKLptnY3oB94NDnyl bH8kJLdd2Tub37cm305 uI7vmQZjOBP5ALSeXYC svINrBCAnPQC0CKKjlG JhE0ghIRGnOE2tnqbrQ WhvDTlpSRYtfFI8DTQv tHZhN6UdPQOkKApwYUK ryyn9QmFxKj8aqYZakM kwANefb5myd5slbSHjA ls8ILZrGsJyYrasBDrm d6Tvo0qvFHSakx3xZMC 1aBUikLblc3W4fZFnPR DnzLTbmcYfJHDcWjA5M XozDY2rji48WUUjOEV6 ir0lwQKkvKsjgjVafPP eTBfoV1GnJAYms860IT ElB0LuJDNaa0A4bpZaP tCpSJPwiUF3bxD6OYZl RQt9cZPirrJ0bsNlvYY qE5mfkG5pQTBdOC3aih mhc7jqSOttOQpoMSIwz DU8yuP0ZTAhgULyN6Am nP8zOXPwGLntDBRthtn 9YqCnQj7uvTZrbSpzAO xzYmtwYWdlXHBnbmNvb nRccGduZGVjXHBsYWlu XHBsYWluXGYwXGZzMjR bqPemiHeacZ3lJhUrQv TrTCosXI6aHHXeA7tjf ZBeNXAjAFFeR0oeLqYp rG6ciSfhGOiuzeRxML5 is5ThGHGdCBThKBkfE4 7hjzLab5EtFJ7pa68me XXpkJ2hJ6G2GU0uMMuh BUEwDFB1JWU9YNJbXnY wXD3nLTSepM5enOxqHG Jlylz3x37waL4sH5M7Y Z57ZMcnyIJayijuDHon czIyXGxhbmcxMDMzXGh oE9quFqBrTWTpjAxgQY fzv2HjYLUdTSWvCaFdm GFyfX0= Diagnosis (test code = 34) z7gwjZLnTKAfcBJ9CtN qOHZly6fub9SjbRCeuM MtBXnhmONjdjOxoc62r PX2iQ47PS1xHUYkUmJ1 KOSktaA3Amq1NDEjHCI hbCTyO622i3oew7lgik FqdYG8EFMvSKAgF4CnX F2fVZOrqFAcL23uhKJx NRJ6JDIgFYTovMWyTAW aBSZ6SLAxlYKtH3wmOM OuGJ5fdystLEwmJBorL RXvxFD7IOYqdRHhQ1Ot TVKxEFvpQKOwyms5RjJ rLd4uaKXbbAiwEFlcCN JkXHBsYWluXGZzMjBcY 5AfUCI6QMdiEbIfcMLz wkifYTFnKsCrlXnyl4Q kWD3uKNQeNXLtlQ3sb1 g5OMFtvkoijHtpJUbln X93WdUbQ0JbKMVEL6bD SVZFIEZPUiBDQVJDSU5 RDFCoIYUPNfCDX6CWRn ErN8gKRXNXKNXYW5LJU Z6JKJBWGJCRKjPdB4VN C0SMOCTAJpPSXw7GNK5 wHPVRXSKEQ73BIZ3BDP xwYXJccGFyZFxwYXIgQ zION0AKTKbsNLN8 Comment (test code = 9835) j8fabWMuDCObrOK8FzX mUMVty3nom2ErwBVkvS SaMEifbGFlioRrva70r YD4yV08UC9kOGOzTtM1 ITBxbgA1Bgr8KRUjVAN fdDQyP404e3sdn3jqoh SpbIQ6yIwfIWVnlxlxR qA0HNyrARRhmyfwFSx0 NNqgPHCafFJ1AABpdJS eY7TrVGCfMJ3vcgv7FV I3EYnaORAhVwY5FBZyf VZoSQYmkBxzRIqbe372 GDP2JsAmWCCtkfIdyJv mcH4wWoQyJZTNqU39wg 3sjRH7i3LcKA7uV8LyS RJ5QAhdgbTbgmCzjPUl Kw1ilHOkKDDlJZCdrF7 7JJOoJMXmMI8zyBJtyS ljIGNlbGxzIHRvIGJlI WSfa3p6lDWyCYGtkuGn gATfy9PaUMXdyfG2GFv wYXRjaHkpLCBQQVgtOC aooYX0BLasjSCyykpkD MEjIhX4p7VgNCDmRYMq UQSxBLBpVN54XK35NWO oVVldpbPjx0bbymzhXB QVBLc4CJZaQI8vHFCyB XCiCYuqHK4pDNXEXPk3 HXQqZJ1tCSWtFRRkNQP gIYF4ws3kUubuDWVfGN GxjRY3d1zmW7erQZGeR XFmyQ93xw7qnBY3o9Dx WR1qT6PyZNLqjaVsmlj zIGFyZSBpbiBrZWVwaW 5nIHdpdGggdGhlIGFib 0KlMMEuBDcsw3Obow5k XHBhcn0= Gross Description (test y8tyxYBuASKawDRLHQb code = 3463219774) wMFxhbnNpXHNwbHRwZ3 AevtlcKMwePW2ySH2tx MzynNXinPUgMF2VZPDm ZmYxXHBhcGVydzEyMjQ wCJWjqZIboYG6BQAnNT 1hcmdsMTgwMFxtYXJnc tV6DKIgcSFqS1EeUOJk OU2fswsbCRW7QTwgiY7 sgiSUPktcSc8xpVVagX tcZjFcZmNoYXJzZXQwX UDrkDzvMTXsJBo0lA8Y LvonA70ej1B6Ukx7AVO eODWmF2TlFR5lUOEvbY GuZ85BUhenIUI0CGEKH jvmGXDxPX7Lc8qwBOHj kDCvJFL4BGtzgMYaYTI zBQFgRMy3GBBxWVpmyC DeDN2moHfqWnhwqAcxb 2VjdCBcXGlkIDUxMDAy EIizZLEeGZ7FWoAkIJE hFJQtVXHaAIg2YKm9NN 3CHiBhAGSxQHCmRna6Q iFeIKc1FOofFC9WXYt9 TqZ8PzAfVBZ8UFJ7XXR cXHQgMiBcXGYgQXJpYW wgXFxmcyAxMCBcXGZiI KgnUedaRGjxV79ydRsc xT5zIhpzinXxPEG2OIS hciANClxwbGFpblxlcG ljTmVzdERvYzEgDQpcb HRycGFyXGxpbjBccmlu MCANClxsdHJjaFxiXGN mMVxmczIwIExlZnQgcG VsdmljIHNvZnQgdGlzc 7CzZG8bULSzXGHviB0w t0gjr7p6vNNjkQ7mMPQ rZXJzOlxiMFxjZjAgIE 69qXJpwFuqYBFlig68s Cr8PQGuq6SeGWYcd9Vq dLIeTU4jZGS7xvqeQaS xLjQgeCAwLjUgeCAwLj KcN87nfA9tHRpnjpZgX XRlLCBlbnRpcmVseSBz ySMvoXV2FGNqqO4wHRA uICBccHJvdGVjdHtcZm dowMK6ZNwqUqdxfN4ci CBIWVBFUkxJTksgbmFt ZO9WLN7QJdEGBD95TwV hNRX4JOlBG6IZwNU7Yi a3DUy9aIopAemdunTmt VZfHeTRvC8CIKhnNwom xWC0NGiaPefmmM3uhQI IWVBFUkxJTksgbmFtZT 4JUC4UJI2UlNZjIFC9m LO5TAQPJngbxFI0pWR2 qZ52AIRqOSBstKNcDBs fE357BRFvPTohTAc7nm NoXGZzMjAgDQpcZXBpY 37me9HBe5WpUVIje8bh gPsyh9YyoXQnVVwyBZK nvAJjZMgpxG3aJhMdn5 rvqMq7OHjzzqK1SODtg g5pzQjwlT9bFLuen8lo JFK0RLIavFYktEUnZJk wcCsdnI7fUbGtMly4US ejPPFhF6LrK6ZkjzH1M HBsYWluXGZzMTYgDQp9 Biomarker Block(s) (test q0tpwEVbAMBpqUR4SxI code = 9841) qPCAue8jiz3TisLTigC ExNQgigQUhrlSyky08e VC3nM15UJ2jUMAcBfR4 MXEsvkU2Ptq7KMRcDAS cuPFtD839q1woe2ctni IegQM4jYmaFJBjifggK jW1HPbnYKNazeleJWe1 QCmgIECfzRX0DTIpaQB yY8BkJACkXH5rgsn3JF X0DPyfTNAmJsE9NIXjw GUmZBEhrVqeNNimb755 ONP3RiAeULBgngGrmOz kgT1cPgItEDCIIqXZIN txAWMgJyeyTp8INXCxd lxwYXJ9 Disclaimer (test code = d4fhkVWbBHEelWXaQtF 9844) jHLSwDBQro0iaNPDshD FuZzEwMzNcZnRuYmpcd WIlHKVyKvCtw9apr770 gKDmc1roXIQkFpS0uSQ jZGZyrANzK732YCSrHD vch8zju7SkJBOizTQqg 2F5SSSBmuyckUj9lIsk O55oa9D9PrgvD5vmMAQ iHYXaQ4IaQD0xZJQsNc k6BRS6FCL6ICXhJJYdZ 7MgAL6yQLGusZMvSYu0 t6dqcIbxSAXqTGF3n3m sLXyadrWcZR9hlq5iyO f2q2nxegXpDOMyYTLre RPVFYNhJ1WjnZsuGe3c kZd7gQzlNfbcZII5Svu 9NP1wqm56ads1nCryWG HqwkzlOwX0XRgtNHYmm likJUb5DGkcSINtrNN1 GCVvoIClZ8YhDLDpMD0 cdjk7QNV9XVwtKDNxNw U5QTFqhLHgQQKmtAmsK Hkgn261LWD3PiZvHU2o H7Zqs8P7gE1ccUVmNNN efALiVjQdBXMxbs9qnZ EzTExuf1KsAOU7wxP3c DGohKSgGPKuTB54Dmfh f4BeYccqOMH8ZQFipuM uq4Kyz6ypDyIjytEeR5 ynR5VrGZQdDVSyIYBtJ pXrraDvv8Rxz6WxaAGb cLl9l7xpJJViLMMtaNl vb6jvHHF8DRFgX2P0kS Nkp3ygOTelXUPyjMU5z oJ4TFRitATuF8LhuR6q SVEtUL5lwdk3e8ijGIJ 1KDyqELQzJoD2ggZ8DJ BcaGVhZGVyeTcyMFxmb 183CSP1YvPfQVDoj4Av C0GmwMawW14uaQgbD67 fFNQplDbgnM7smVsrsG 5cZjBcZnMyNFxxbFxwb FLkabjoYKlblpL2KTjk shfiLVDbOBmzN0azBkQ ySQFjyMnsRDoeh4HhNB OhDNLoMmcuynR9KAAQt 00zZZLsu0UqWIHirH9q oJBiWFxbnwRntBR5EZt hdmUgYmVlbiBkZXZlbG 7tSTOrSS9zQMFzncLnb u0jioQtWGZgFNXbO6Ph cmlzdGljcyBkZXRlcm1 dpbUqBFY4IWNXYS1BLB FeFJRaj29bTELcdYfci U6oaVImelGsUBVqm3Af bC1aiMKCYDKiK3usEK1 aKSnfb3StzCHonLFsdM J5NDDmc0WlWdAewaSsy ITwiUYxA2GajIbvW4qa QMEhRJKpbaZuuRPpl9R qZYMpxSV6zKLtVL3HSg CCf61xHMXhJFAMghOlA XGsmUgpnEX7eoS0mK9m LiBJZiBhcHBsaWNhYmx uUFCcd599by1ufjR3BS PiJTYdmvowu0CcLBYrO BZybU75WYHwDQHfqc1g kpkvxMJeqnKpU1Tdaij 4eN7aMYVaBYujIJKjQX ZzMjJcbGFuZzEwMzNca GljaFxmMVxkYmNoXGYx CPlvP3dzIeDiTyTqGzp wYXJ9 MD DonaldsonMD MSI by PCR Material [id number] 19:36:01 Test Item Value Reference Range Interpretation Comments Archived Material Previously diagnosed (test code = 40323) tissues from [id number] were selected for molecular analysis. Results will be reported separately. MD Donal[facility]onUN[facility] [id number] 08:35:00 Test Item Value Reference Range Interpretation [...] PATIEN TS. CBC W/PLT COUNT & AUTO [id number] 08:10:00 Test Item Value Reference Range Interpretation [...]
[2022-01-10 04:00] LABS: Absolute Lymphocytes (CBC) 1.4 K/uL (0.7-4.9); Hematocrit 37.5 % (36.0-45.0); Lymphocytes % 27.8 % (15.3-44.8); MPV 8.3 fL (7.6-11.3); RBC Red Blood Cell Count 4.26 M/uL (3.86-4.86)
[2022-01-10 04:15] LABS: Potassium 3.9 mmol/L (3.5-5.1); Troponin High Sensitivity 12.7 pg/mL (<58.9)
--- NOTE | 2022-01-10 07:36 | ER ---
Nurse's Notes [facility] Name: Misa Claros Age: 71 yrs Sex: Female : 1950 Arrival Date: 01/10/2022 Time: 03:13 Bed 6 Private MD: Diagnosis: Palpitations;Other malaise and fatigue Presentation: 01/10 03:34 Chief complaint: Patient states: earlier in the day she started "feeling funny" and sm5 having some chest pressure. took a nap and felt a little better. woke up again tonight feeling lightheaded and dizzy and having chest discomfort. hx of afib. follows up with Dr. Dobson. Coronavirus screen: Vaccine status: Patient reports receiving the 2nd dose of the covid vaccine. Ebola Screen: No symptoms or risks identified at this time. Initial Sepsis Screen: Does the patient meet any 2 criteria? HR > 90 bpm. No. Patient's initial sepsis screen is negative. Does the patient have a suspected source of infection? No. Patient's initial sepsis screen is negative. Risk Assessment: Do you want to hurt yourself or someone else? Patient reports no desire to harm self or others. Onset of symptoms Onset of symptoms was January 10, 2022. 03:34 Method Of Arrival: Wheelchair 5 03:34 Acuity: VINOD 3 sm5 Triage Assessment: 03:40 General: Appears in no apparent distress. Behavior is cooperative. Pain: Complains of sm5 pain in chest. Neuro: No deficits noted. Level of Consciousness is awake, alert, obeys commands, Oriented to person, place, time, situation. Cardiovascular: Reports chest pain, lightheadedness, Capillary refill < 3 seconds Patient's skin is warm and dry. Rhythm is atrial fibrillation with rapid ventricular response. Respiratory: Airway is patent Trachea midline Respiratory effort is even, unlabored. GI: No deficits noted. Abdomen is obese. Historical: - Allergies: 03:37 Codeine; sm5 03:37 Morphine; sm5 - Home Meds: 03:37 famotidine 20 mg Oral tab 1 tab 2 times per day [Active]; levothyroxine 25 mcg tab 1 sm5 tab once daily [Active]; metoprolol tartrate 25 mg Oral tab 1 tab 2 times per day [Active]; pravastatin 20 mg Oral tab 1 tab once daily [Active]; spironolactone 25 mg Oral tab 1 tab once daily [Active]; Eliquis 5 mg oral tab 1 tab 2 times per day [Active]; Entresto 24-26 mg oral tab 1 tab 2 times per day [Active]; Zofran 4 mg Oral tab as needed [Active]; tramadol 50 mg Oral tab [Active]; cyclobenzaprine 5 mg Oral tab as needed [Active]; - PMHx: 03:37 Back pain; Hypertension; sciatica; uterine cancer; diagnosed a year ago; Atrial sm5 fibrillation; - Immunization history:: Client reports receiving the 2nd dose of the Covid vaccine. - Social history:: Smoking status: Patient denies any tobacco usage or history of. Screenin:41 Abuse screen: Denies threats or abuse. Denies injuries from another. Nutritional 5 screening: No deficits noted. Tuberculosis screening: No symptoms or risk factors identified. Fall Risk No fall in past 12 months (0 pts). No secondary diagnosis (0 pts). IV access (20 points). Ambulatory Aid- None/Bed Rest/Nurse Assist (0 pts). Gait- Normal/Bed Rest/Wheelchair (0 pts) Mental Status- Oriented to own ability (0 pts). Total Rawls Fall Scale indicates No Risk (0-24 pts). Assessment: 03:45 Reassessment: see triage assessment. [facility] 04:37 Reassessment: No changes from previously documented assessment. [facility] 05:30 Reassessment: pt ambulated to bathroom with no assistance. 5 06:52 Reassessment: No changes from previously documented assessment. Patient and/or family [facility] updated on plan of care and expected duration. Pain level reassessed. Patient is alert, oriented x 3, equal unlabored respirations, skin warm/dry/pink. Vital Signs: 03:34 BP 150 / 105; Pulse 110; Resp 27; Temp 97; Pulse Ox 100% on R/A; Weight 100.24 kg; 5 Height 5 ft. 4 in. (162.56 cm); 06:52 BP 113 / 80; Pulse 77; Resp 18; Pulse Ox 99% on R/A; 5 03:34 Body Mass Index 37.93 (100.24 kg, 162.56 cm) [facility] ED Course: 03:13 Patient arrived in ED. kz 03:34 Kristi, Shayna, RN is Primary Nurse. 5 03:36 Sean Velazquez MD is Attending Physician. kdr 03:37 Triage completed. 5 03:41 Arm band placed on right wrist. EKG completed in triage. Results shown to MD. 5 03:41 Inserted saline lock: 20 gauge in right antecubital area, using aseptic technique. 5 Blood collected. 03:42 Patient has correct armband on for positive identification. Bed in low position. Call [facility] light in reach. Side rails up X2. seed buyer on. Pulse ox on. NIBP on. 03:43 Basic Metabolic Panel Sent. sm5 03:43 CBC with Diff Sent. 5 03:43 Troponin HS Sent. 5 03:53 XRAY Chest (1 view) In Process Unspecified. EDMS 07:34 David Dobson MD is Referral Physician. kdr 08:05 No provider procedures requiring assistance completed. IV discontinued, intact, pompa Pressure dressing applied. Administered Medications: No medications were administered Outcome: 07:35 Discharge ordered by . kdr 08:05 Discharged to home with family. pompa 08:05 Condition: good 08:05 Discharge instructions given to patient. 08:05 Patient left the ED. pompa Signatures: Dispatcher [employer] EDNH Sean Velazquez MD MD [facility] Shayna Berry, COREY NICOLE [facility] Diamond Mcdowell RN RN ha Zapata, Kelly Corrections: (The following items were deleted from the chart) 03:37 03:34 Onset of symptoms [place] [id number]
--- NOTE | 2022-01-10 07:36 | EDPHYS ---
Physician Documentation [facility] Name: Misa Claros Age: 71 yrs Sex: Female : 1950 Arrival Date: 01/10/2022 Time: 03:13 Bed 6 Private MD: ED Physician Sena Velazquez HPI: 01/10 05:13 This 71 yrs old Black Female presents to ER via Wheelchair with complaints of High kdr Blood Pressure. 05:13 The patient has elevated blood pressure and discovered this at home. Onset: The kdr symptoms/episode began/occurred suddenly, just prior to arrival. Modifying factors: The symptoms are aggravated by . Associated signs and symptoms: The patient has no apparent associated signs or symptoms. Severity of symptoms: At its worst the blood pressure was mild, moderate, in the emergency department the blood pressure is unchanged. The patient has not experienced similar symptoms in the past. The patient has not recently seen a physician. Patient states that earlier today she started "feeling funny" and having some chest pressure. She took a nap at that time and felt a little better when she woke but again tonight she started feeling lightheaded and dizzy and having chest discomfort. She has a history of A. fib and is followed by Dr. Ortiz. She denies any nausea vomiting fever chills, cough or congestion. She has not had the symptoms before. She does know that she has atrial fibrillation however she is not normally experienced this kind of thing before. She also noted that her blood pressure was high. She took out the batteries on her blood pressure machine and change them out. She then retook her blood pressure and it remains elevated. With this information, she became concerned and brought her self to the ED. Historical: - Allergies: 03:37 Codeine; sm5 03:37 Morphine; sm5 - Home Meds: 03:37 famotidine 20 mg Oral tab 1 tab 2 times per day [Active]; levothyroxine 25 mcg tab 1 sm5 tab once daily [Active]; metoprolol tartrate 25 mg Oral tab 1 tab 2 times per day [Active]; pravastatin 20 mg Oral tab 1 tab once daily [Active]; spironolactone 25 mg Oral tab 1 tab once daily [Active]; Eliquis 5 mg oral tab 1 tab 2 times per day [Active]; Entresto 24-26 mg oral tab 1 tab 2 times per day [Active]; Zofran 4 mg Oral tab as needed [Active]; tramadol 50 mg Oral tab [Active]; cyclobenzaprine 5 mg Oral tab as needed [Active]; - PMHx: 03:37 Back pain; Hypertension; sciatica; uterine cancer; diagnosed a year ago; Atrial sm5 fibrillation; - Immunization history:: Client reports receiving the 2nd dose of the Covid vaccine. - Social history:: Smoking status: Patient denies any tobacco usage or history of. ROS: 05:13 Constitutional: Negative for fever, chills, and weight loss, Eyes: Negative for injury, kdr pain, redness, and discharge, Neck: Negative for injury, pain, and swelling, Respiratory: Negative for shortness of breath, cough, wheezing, and pleuritic chest pain, Abdomen/GI: Negative for abdominal pain, nausea, vomiting, diarrhea, and constipation, Back: Negative for injury and pain, : Negative for injury, bleeding, discharge, and swelling, MS/Extremity: Negative for injury and deformity, Skin: Negative for injury, rash, and discoloration, Neuro: Negative for headache, weakness, numbness, tingling, and seizure activity. Psych: Negative for depression, anxiety, suicide ideation, homicidal ideation, and hallucinations, Allergy/Immunology: Negative for hives, rash, and allergies, Endocrine: Negative for neck swelling, polydipsia, polyuria, polyphagia, and marked weight changes, Hematologic/Lymphatic: Negative for swollen nodes, abnormal bleeding, and unusual bruising. 05:13 Cardiovascular: Positive for orthopnea, paroxysmal nocturnal dyspnea, Negative for chest pain, edema, orthopnea, paroxysmal nocturnal dyspnea. Exam: 05:13 Constitutional: This is a well developed, well nourished patient who is awake, alert, kdr and in no acute distress. Head/Face: Normocephalic, atraumatic. Eyes: Pupils equal round and reactive to light, extra-ocular motions intact. Lids and lashes normal. Conjunctiva and sclera are non-icteric and not injected. Cornea within normal limits. Periorbital areas with no swelling, redness, or edema. Neck: Trachea midline, no thyromegaly or masses palpated, and no cervical lymphadenopathy. Supple, full range of motion without nuchal rigidity, or vertebral point tenderness. No Meningismus. Chest/axilla: Normal chest wall appearance and motion. Nontender with no deformity. No lesions are appreciated. Cardiovascular: Regular rate and rhythm with a normal S1 and S2. No gallops, murmurs, or rubs. Normal PMI, no JVD. No pulse deficits. Respiratory: Lungs have equal breath sounds bilaterally, clear to auscultation and percussion. No rales, rhonchi or wheezes noted. No increased work of breathing, no retractions or nasal flaring. Abdomen/GI: Soft, non-tender, with normal bowel sounds. No distension or tympany. No guarding or rebound. No evidence of tenderness throughout. Back: No spinal tenderness. No costovertebral tenderness. Full range of motion. Skin: Warm, dry with normal turgor. Normal color with no rashes, no lesions, and no evidence of cellulitis. MS/ Extremity: Pulses equal, no cyanosis. Neurovascular intact. Full, normal range of motion. Neuro: Awake and alert, GCS 15, oriented to person, place, time, and situation. Cranial nerves II-XII grossly intact. Motor strength 5/5 in all extremities. Sensory grossly intact. Cerebellar exam normal. Normal gait. Psych: Awake, alert, with orientation to person, place and time. Behavior, mood, and affect are within normal limits. 05:13 ECG was reviewed by the Attending Physician. [facility] Vital Signs: 03:34 BP 150 / 105; Pulse 110; Resp 27; Temp 97; Pulse Ox 100% on R/A; Weight 100.24 kg; 5 Height 5 ft. 4 in. (162.56 cm); 06:52 BP 113 / 80; Pulse 77; Resp 18; Pulse Ox 99% on R/A; sm5 03:34 Body Mass Index 37.93 (100.24 kg, 162.56 cm) [facility] MDM: 07:35 Patient medically screened. [facility] 08:22 Data reviewed: vital signs, lab test result(s). [facility] 01/10 03:37 Order name: Basic Metabolic Panel; Complete Time: 05:03 [facility] 01/10 03:37 Order name: CBC with Diff; Complete Time: 05:03 [facility] 01/10 03:37 Order name: Troponin HS; Complete Time: 05:03 [facility] 01/10 03:37 Order name: XRAY Chest (1 view) [facility] 01/10 03:37 Order name: EKG; Complete Time: 03:37 kdr 01/10 04:46 Order name: Troponin High Sensitivity: REpeast 2 hours after first; Complete Time: 07:26kdr 01/10 03:37 Order name: Cardiac monitoring; Complete Time: 03:42 kdr 01/10 03:37 Order name: EKG - Nurse/Tech; Complete Time: 03:42 kdr 01/10 03:37 Order name: IV Saline Lock; Complete Time: 03:42 kdr 01/10 03:37 Order name: Labs collected and sent; Complete Time: 03:42 kdr 01/10 03:37 Order name: O2 Per Protocol; Complete Time: 03:43 kdr 01/10 03:37 Order name: O2 Sat Monitoring; Complete Time: 03:43 kdr EC:13 Rate is 107 beats/min. Rhythm is irregularly irregular, A fib with No ectopy. QRS [place] kdr is Normal. [place] interval is normal. QRS interval is normal. QT interval is normal. Clinical impression: Atrial Fibrillation. Administered Medications: No medications were administered Disposition Summary: 01/10/22 07:35 Discharge Ordered Location: Home kdr Problem: new kdr Symptoms: have improved kdr Condition: Stable kdr Diagnosis - Palpitations kdr - Other malaise and fatigue kdr Followup: kdr - With: Private Physician - When: 2 - 3 days - Reason: If symptoms return, Further diagnostic work-up, Recheck today's complaints, Continuance of care, Re-evaluation by your physician Followup: kdr - With: David Dobson MD - When: 2 - 3 days - Reason: If symptoms return, Further diagnostic work-up, Recheck today's complaints, Continuance of care, Re-evaluation by your physician Discharge Instructions: - Discharge Summary Sheet kdr - Palpitations, [id number] kdr Forms: - Medication Reconciliation Form kdr - Thank You Letter kdr Signatures: Dispatcher [employer] Sean Hamilton MD MD kdr Shayna Berry RN RN sm5 Iveth Matos PA PA sb3
--- NOTE | 2022-01-10 13:58 | RAD REPORT ---
EXAM DESCRIPTION: XR Chest, 1 View CLINICAL HISTORY: The patient is 71 years old and is Female; HTN TECHNIQUE: Single view of the chest. COMPARISON: No relevant prior studies available. FINDINGS: Lungs: No pulmonary vascular congestion or consolidation. Pleural space: Unremarkable. No pneumothorax. Heart: Cardiomegaly. Mediastinum: Unremarkable. Bones/joints: No acute fracture visualized. Upper abdomen: No free air in the visualized upper abdomen. IMPRESSION: No acute cardiopulmonary process identified. Electronically signed by: Pat Ibarra MD 01/10/2022 4:06 AM CDT Due to temporary technical issues with the PACS/Fluency reporting system, reports are being signed by the in house radiologists without review as a courtesy to insure prompt reporting. The interpreting radiologist is fully responsible for the content of the report.
[2022-01-10 14:42] VITALS: TEMP 97
[2022-01-10 14:43] VITALS: BP 113/80; O2SAT 99
--- NOTE | 2022-01-11 08:11 | EKG ---
Test Date: 2022-01-10 Test Time: 03:25:54 Fishing Guide: ARASELI MEASUREMENT RESULTS: Intervals: Rate: 107 NE: QRSD: 90 QT: 344 QTc: 459 [place]: P: NE: QRS: 21 T: 162 INTERPRETIVE STATEMENTS: Atrial fibrillation with rapid ventricular response Cannot rule out Anterior infarct, age undetermined ST & T wave abnormality, consider lateral ischemia Abnormal ECG Compared to ECG 12/02/2021 14:20:52 No significant changes Electronically Signed On 01-11-22 08:07:13 CDT by David Dobson
== END 2022-01-10 08:05 | disposition home or self-care (01) ==
LOC: ER 03:10
DX: R00.2 Palpitations (principal); R53.81 Other malaise; R53.83 Other fatigue; I48.91 Unspecified atrial fibrillation; I10 Essential (primary) hypertension; Z79.01 Long term (current) use of anticoagulants; Z85.42 Personal history of malignant neoplasm of other parts of uterus; Z88.5 Allergy status to narcotic agent
CPT/HCPCS: 36415; 71045; 80048; 84484; 85025; 93005; 99284

== ENCOUNTER 2022-08-31 19:15 | Emergency (ER) | payer OTHER ==
--- OUTSIDE RECORDS SUMMARY | 2022-08-31 19:23 | XMS REPORT | Clinical Summary ---
:1950 Author Organization [facility] MD [facility] Address [address] [place] [address] Care Team Providers Name Role Phone Deonna Leiva MD Primary Care Provider Denzel Pritchett "Hattie" Unavailable [phone] Mateo Chavez MD Unavailable [phone] David Dobson MD Unavailable [phone] Allergies Active Allergy Reactions Severity Noted Date [...] 20 mg tablet by mouth 1 daily. Eliquis 5 mg tablet Take 1 tablet 0 Active (5 mg) by 2 mouth twice daily. Entresto 24-26 mg Take 1 tablet 0 Active tab per tablet by mouth 2 twice daily. furosemide (LASIX) Take 1 tablet 0 Active 20 mg tablet by mouth 2 daily. spironolactone Take 1 tablet 0 A ctive (ALDACTONE) 50 mg by mouth 2 tablet daily. diclofenac sodium Apply 2 g 450 g 2 Ac tive (Voltaren) 1 % topically 3 2 gelIndications: (three) times Chronic pain a day. metoprolol tartrate TAKE ONE 60 tablet 6 Active (LOPRESSOR) 25 mg TABLET BY 2 tabletIndications: MOUTH TWICE A Cardiomegaly, DAY Coronary artery disease due to calcified coronary lesion pregabalin (Lyrica) Take 1 60 capsule 2 Active 50 mg capsule (50 2 capsuleIndications: mg) by mouth Chronic pain twice daily. letrozole (Femara) Take 1 tablet 90 tablet 3 0 Active 2.5 mg (2.5 mg) by 2 23 tabletIndications: mouth daily Serous for 90 days. 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 losartan (COZAAR) 50 0 12/08/19 Discontinued mg [...] scontinued by mouth 22 (Therapy daily. completed) metoprolol tartrate Take 1 tablet 60 tablet 3 Discontinued (LOPRESSOR) 25 mg (25 mg) by 2 22 tabletIndications: mouth twice Cardiomegaly, daily. Coronary artery disease due to calcified coronary lesion ondansetron (Zofran) Take 1 tab 30 tablet [...] Chronic pain as needed for severe pain. pregabalin (Lyrica) Take 1 60 capsule 1 05/15/20 Discontinued 25 mg capsule (25 2 22 (Reorder ) capsuleIndications: mg) by mouth Chronic pain twice daily. ondansetron (Zofran) Take 1 tablet 30 tablet 3 07/21 Discontinued 8 mg by mouth 2 22 (Other ) tabletIndications: every 8 hours Neoplasm, malignant for 3 days on of endometrium, days 2, 3, Metastatic cancer to and 4 the peritoneum following chemotherapy, then may take 1 tablet by mouth every 8 hours as needed for nausea or vomiting. prochlorperazine Take 1 tablet 30 tablet 3 07/21/20 Discontinued (Compazine) 10 mg (10 mg) by 2 22 ( Other ) tabletIndications: mouth every 6 Neoplasm, malignant (six) hours of endometrium, as needed for Metastatic cancer to nausea or the peritoneum vomiting. Active Problems Patient Care Coordination Note Formatting of this note might be differe nt from the original. 0Please call patient with all appointmen t dates and times, does not use Mychart. Problem Noted Date Congestive heart failure 01/16/2022 Encounter for antineoplastic chemotherapy 01/16/2022 Paroxysmal atrial fibrillation 12/13/2021 Last Assessment & Plan: Formatting of is note might be different from the original. Patient has a history of atrial fibrilla tion she is likely persistent versus chronic with EKG done today showing well controlled atrial fibrillation in the 80s. Continue metoprolol tartrate 25 mg p.o. t wice daily but long-term anticoagulation with Eliquis 5 mg p.o. twice daily with a [id number] score 4 (age, gender, CHF, HTN) Nonischemic congestive cardiomyopathy 12/13/2021 Last Assessment & Plan: Formatting of is note might be different from the original. Patient has a history of a echocardiogra m done 11/21/2021 that showed an ejection fraction of 23% for which patient underwent a left heart catheterization showing no acute coronary disease. Patient pres ented with a echocardiogram from outside hospital that showed ejection fraction of 10 to 15% patient is on good medical management with Entresto 24-26 mg tablet twice daily, spironolactone 50 mg p.o. da corrnie with recommendation to continue curr ent regimen. Discussed with patient the increased risk of sudden cardiac her low ejection fraction and the recommendation for LifeVest prior to reevaluation to permanent ICD implant for which alexander ent declined. Patient is already had this discussion with her private director [employer] concerning a permanent ICD implant and knows she would need a follow-up appoint ment within 3 months. Patient states she elected to have her further management with her local director [employer]. 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 Left heart catheterization done 11/29/19 showed normal coronary arteries with only luminal irregularities. Continue pravastatin 20 mg p.o. daily. Other specified polyneuropathy 04/25/2017 Essential (primary) hypertension 11/08/2016 Overview: Formatting of this note is dif ferent from the original. BP Readings from Last 3 Encounters: 11/21/16 149/79 11/08/16 (!) 180/96 Last Assessment & Plan: Well-controlled blood pressure at 100/70 in clinic. Patient reports blood pressures in the 110s to 120s at home. Continue medical management on Entresto 24-26 mg tablet p.o. twice daily, metoprolol tart rate 25 mg p.o. twice daily and spironol actone 50 mg daily. Morbid (severe) obesity due to excess calories 017 Overview: 11/21/2016 Body mass index is 41.48 kg/(m^2). Weigh t: (!) 106.2 kg (234 lb 2.1 oz) [place] body weight: 52.4 kg (115 lb 7.7 o z) Adjusted ideal body weight: 73.9 kg (162 lb 15 oz) Last Assessment & Plan: Discussed diet and weight loss Currently stable, no further recommendat ions are being made in regards to this for the surgery. For the purposes of surgery and perioperative evaluation, this particular issue should not be a concern, c ontinue any medications that are associa elena with the issue. The patient may follow up with his / her PCP for management of this issue. 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 Patient is planned to undergo resection of her peritoneal implants. Patient has known nonischemic cardiomyopathy with ejection fraction of 23%. She is on goal- directed medical management for cardiomyopa thy and on exam she does not exhibit any evidence of decompensated heart failure. Patient does not report any chest pain and on EKG she is in rate controlled atrial fibrillation of 83 bpm. After discuss ion with cardiology attending patient is a moderate risk to go forward with her planned procedure or chemotherapy no further cardiac work-up is recommended. Cardiology service is available inpatient if needed. 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; Rhonda Carty, Other specifi ed polyneuropathy; PA Congestive hear t failure, not otherwise specified 07/21/2022 Travel 07/20/2022 Ancillary Procedure Radiology Serous c ystadenocarcinoma, NOS of endometrium; Encounter for a ntineoplastic chemotherapy; Metastatic canc er to the peritoneum; Congestive hear t failure, not otherwise specified 07/20/2022 Travel 06/23/2022 Infusion Infusion Services Deonna Leiva Metasta tic cancer to the peritoneum (Primary Dx); MD Viraj Neoplasm, malignant of endometrium Chloe Pablo RN 06/23/2022 Office Visit Gynecology Deonna Leiva Serous cysta denocarcinoma, NOS of endometrium (Primary Dx); MD Viraj 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; Gabi Basurto PA Encounter fo r antineoplastic chemotherapy; Congestive hear t failure, not otherwise specified 06/23/2022 Travel 06/20/2022 Orders Only Gynecology Rhonda Carty, Neoplasm, mal ignant PA of endometrium (Primary Dx) 06/20/2022 Orders Only Gynecology Deonna Leiva Neoplasm, ma lignant of endometrium (Primary Dx); MD Viraj Metastatic canc er to the peritoneum; Serous cystaden ocarcinoma, NOS of endometrium 06/19/2022 Procedure visit Pain Medicine Nolberto Israel Chronic p ain (Primary Dx); MD Penelope Sacroiliitis; Pain in right k nee; Cancer associat ed pain 06/19/2022 Travel 06/16/2022 Telephone Pain Medicine Kathleen Emanuel RN 05/31/2022 Telephone Pain Medicine Kathleen Emanuel RN 05/26/2022 Infusion Infusion Services Deonna Leiva Metasta tic cancer to the peritoneum (Primary Dx); MD Viraj Neoplasm, malignant of endometrium Vickie Graves RN 05/26/2022 Office Visit Gynecology Deonna Leiva Neoplasm, ma lignant of endometrium (Primary Dx); MD Viraj Paroxysmal atri al fibrillation; Encounter for a ntineoplastic chemotherapy; Metastatic canc er to the peritoneum 05/26/2022 Orders Only Gynecology Rhonda Carty, Metastatic ca ncer to PA the peritoneum (Primary Dx) 05/26/2022 Orders Only Deonna Li MD 05/26/2022 Travel 05/26/2022 Orders Only Gynecology Rhonda Carty, Neoplasm, mal ignant PA of endometrium (Primary Dx) 05/25/2022 Orders Only Deonna Li Neoplasm, ma lignant of endometrium (Primary Dx); MD Viraj Metastatic canc er to the peritoneum 05/15/2022 Office Visit Pain Medicine Nolberto Israel Chronic pain MD Penelope (Primary Dx) 05/15/2022 Travel 04/26/2022 Infusion Infusion Services Deonna Leiva Metasta tic cancer to the peritoneum (Primary Dx); MD Vriaj Neoplasm, malignant of endometrium Estee Bailon, COREY 04/26/2022 Office Visit Gynecology Deonna Leiva Neoplasm, ma lignant of endometrium (Primary Dx); MD Viraj Metastatic canc er to the peritoneum; Encounter for a ntineoplastic chemotherapy; Agranulocytosis secondary to cancer chemotherapy; Morbid (severe) obesity due to excess calories; Congestive hear t failure, not otherwise specified 04/26/2022 Orders Only Deonna Li, ma raul Cali MD of endometrium (Primary Dx) 04/26/2022 Travel 04/25/2022 Orders Only Deonna Li MD 04/20/2022 Ancillary Procedure Radiology Gabi Basurto PA Neopl asm, malignant of endometrium; Metastatic canc er to the peritoneum 04/20/2022 Travel 04/11/2022 Orders Only Gynecology Gabi Basurto PA Neoplasm, ma lignant of endometrium (Primary Dx); Metastatic canc er to the peritoneum 04/11/2022 Telephone Surgical Oncology Dorinda Vasquez RN 03/17/2022 Infusion Infusion Services Deonna Leiva Metasta tic cancer to the peritoneum (Primary Dx); MD Viraj Neoplasm, malignant of endometrium Fior Valverde RN 03/17/2022 Office Visit Gynecology Deonna Leiva Neoplasm, ma lignant of endometrium (Primary Dx); MD Viraj 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; Gabi Basurto PA Encounter fo r antineoplastic chemotherapy; Agranulocytosis secondary to cancer chemotherapy; Morbid (severe) obesity due to excess calories; Anemia in maldanielle nant neoplastic disease; Congestive hear t failure, not otherwise specified 03/17/2022 Travel 03/15/2022 Orders Only Gynecology Deonna Leiva Neoplasm, ma lignant of endometrium (Primary Dx); MD Viraj Metastatic canc er to the peritoneum; Essential (prim vinod) hypertension; Cardiomegaly; Coronary artery disease due to calcified coronary lesion; Nonischemic con gestive cardiomyopathy; Systolic conges tive heart failure, not otherwise specified 03/12/2022 Refill Cardiology Angel Nash Cardiomegalrubén ; Coronary artery disease due to calcified coronary lesion 03/09/2022 Orders Only Gynecology Christian Auguste PA 03/01/2022 Refill Pain Medicine Nolberto Israel Chronic pain MD Penelope 02/17/2022 Infusion Infusion Services Deonna Leiva tic cancer to the peritoneum (Primary Dx); MD Calderon Cali, malignant of endometrium Vickie Graves RN 02/17/2022 Orders Only Gynecology Deonna Leiva MD 02/17/2022 Travel 02/10/2022 Office Visit Gynecology Deonna Leiva, ma lignant of endometrium (Primary Dx); MD Viraj 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; Gabi Basurto PA Encounter fo r antineoplastic chemotherapy; Agranulocytosis secondary to cancer chemotherapy 02/10/2022 Travel 02/10/2022 Orders Only Gynecology Christian Auguste, Neoplasm, ma lignant of endometrium (Primary Dx); PA Metastatic canc er to the peritoneum 02/09/2022 Office Visit Pain Medicine Nolberto Israel Chronic pain MD Penelope (Primary Dx) 02/09/2022 Orders Only Gynecology Deonna Leiva Neoplasm, ma murielant MD Viraj of endometrium (Primary Dx) 02/09/2022 Travel 01/24/2022 Telephone Oncology Cherrie Calles, COREY 01/13/2022 Infusion Infusion Services Deonna Leiva tic cancer to the peritoneum (Primary Dx); MD Calderon Cali malig nant of endometrium 01/13/2022 Office Visit Gynecology Deonna Leiva Neoplasm, ma lignant of endometrium (Primary Dx); MD Viraj Metastatic canc er to the peritoneum; Congestive hear t failure, not otherwise specified; Encounter for a ntineoplastic chemotherapy 01/13/2022 Travel 01/12/2022 Orders Only Gynecology Christian Auguste, Neoplasm, ma lignant PA of endometrium (Primary Dx) 01/12/2022 Orders Only Gynecology Deonna Leiva Neoplasm, ma lignant of endometrium (Primary Dx); MD Viraj Metastatic canc er to the peritoneum 01/05/2022 Procedure visit Pain Medicine Nolberto Israel Chronic p ain (Primary Dx); MD Penelope Lumbar facet juan int pain <Unspecified low back pain>; Sacroiliitis; Cancer associat ed pain 01/05/2022 Travel 12/30/2021 Telemedicine Gynecology Deonna Leiva Neoplasm, ma lignant of endometrium (Primary Dx); MD Viraj Metastatic canc er to the peritoneum; Nonischemic con gestive cardiomyopathy 12/30/2021 Ancillary Procedure Radiology Christian Auguste, Neopl asm, malignant of endometrium; PA Metastatic canc er to the peritoneum 12/30/2021 Ancillary Procedure Radiology Christian Auguste, Neopl asm, malignant of endometrium; PA Elevated total bilirubin 12/30/2021 Travel 12/29/2021 Telephone Pain Medicine Kathleen Emanuel, RN 12/28/2021 Orders Only Gynecology Christian Auguste, [...] artery disease due to calcified coronary lesion; Rudy Preoperative ca rdiovascular examination; BETO Richter Paroxysmal atri al fibrillation; Essential (prim vinod) hypertension 12/13/2021 Travel 12/12/2021 Telephone Gynecology Christian Auguste PA 12/07/2021 Telemedicine Gynecology Deonna Leiva Neoplasm, ma lignant of endometrium (Primary Dx); MD Viraj 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 Christian Auguste PA 12/02/2021 Telephone Gynecology Droinda Vasquez RN 11/28/2021 Hospital Encounter Cardiology Angel [...] Nash Cardio megaly MD 11/21/2021 Telephone Cardiology MirnaCarlos nunez RN 11/21/2021 Documentation Cardiology Carlos Bradley RN [...] disease due to calcified coronary lesion; Neoplasm, lee panchal of endometrium 11/18/2021 Telemedicine Gynecology Christian Auguste, Neoplasm, ma lignant of endometrium (Primary Dx); BETO Metastatic canc er to the peritoneum; Morbid (severe) obesity due to excess calories; Cardiomegaly; Coronary artery disease due to calcified coronary lesion; Essential (prim vinod) hypertension 11/18/2021 POEM Appointments Anesthesiology Deonna Leiva Pre o p labs (Primary DEmeli, Dx) 11/18/2021 Clinical Support Deonna Glez Suspecte d COVID-19 (Primary Dx); MD Viraj Neoplasm, malignant of endometrium; Rosalinda Topete Metastatic ca ncer to the peritoneum; COREY Robles Morbid (severe) obesity due to excess calories; [...] Angel Nash, Preoperative cardiovascular examination (Primary Dx); Neoplasmlee of endometrium; Metastatic canc er to the [...] Ancillary Procedure Radiology Christian Auguste, Mammo graphy abnormal PA 11/04/2021 Ancillary Procedure Radiology Christian Auguste, Mammo graphy abnormal PA 11/04/2021 Prep for Surgery Gynecology Deonna Leiva , malignant of endometrium (Primary Dx); MD Viraj Metastatic canc er to the peritoneum; Morbid (severe) obesity due to excess calories; Cardiomegaly; Coronary artery disease due to calcified coronary lesion; Essential (prim vinod) hypertension 11/04/2021 Telephone Gynecology Deonna Leiva MD 11/04/2021 Travel 11/03/2021 Multidisciplinary Gynecology Deonna Leiva Neopllatoya m, malignant of endometrium; Visit MD Viraj Metastatic canc er to the [...] 10/28/2021 Orders Only Gynecology Christian Auguste, Mammography abnormal PA (Primary Dx) 10/28/2021 Orders Only Gynecology Deonna Leiva, ma lignant of endometrium (Primary Dx); MD Viraj Metastatic canc er to the peritoneum 10/26/2021 Hospital Encounter Dar Rosenberg MD Fleming, Nicole D., MD 10/25/2021 Anesthesia Event Radiology Arnold, Herberth A, MD 10/25/2021 Hospital Encounter Radiology Deonna Leiva Neopla sm, malignant of endometrium; MD Viraj 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 Fermin Hoffman MD Bergbauer, Marion, CRNA Arnold, Benjamin A, MD 10/25/2021 Travel 10/24/2021 Anesthesia Event Anesthesiology Roxi Gaytan, COREY 10/24/2021 Hospital Encounter Radiology Deonna Leiva Metast atic cancer to MD Viraj the peritoneum Genaro Mcclelland T, (Primary Dx) PA 10/24/2021 Clinical Support Deonna Glez MD observation for DemetriusCindy pop other suspecte adeline Damico MA exposure to biological agen t ruled out (Prim vinod Dx) 10/24/2021 POEM Appointments Anesthesiology Deonna Leiva No Sh glenn Cali MD 10/24/2021 Orders Only Radiology Genaro Mcclelland, BETO 10/24/2021 Travel 10/18/2021 Orders Only Radiology Gela Maguire PA 10/18/2021 Telephone Radiology Sabra Perez MA 10/14/2021 Telemedicine Gynecology Deonna Leiva, gurinder lignant of endometrium (Primary Dx); MD Viraj Malignant neopl asm of endometrium; Metastatic canc er to the peritoneum 10/13/2021 Ancillary Procedure Radiology Christian Auguste, Histo ry of malignant neoplasm of endometrium; PA Malignant neopl asm of endometrium 10/13/2021 Travel 10/03/2021 Telephone Gynecology Christian Auguste PA 09/30/2021 Office Visit Gynecology Christian Auguste, Malignant ne oplasm of endometrium (Primary Dx); PA History of nicole gnant neoplasm of endometrium 09/30/2021 Travel after 08/31/2021 Immunizations Name Administration Dates Next Due Pfizer SARS-CoV-2 Vaccination (Purple Cap) 05/14/2021, 10/2020 Surgical History Surgery Date Site/Laterality Comments SECTION, CLASSIC 01/17/1981 [place] LAPAROSCOPY TOT 11/28/2016 N/A Procedure: RO BOTIC HYSTERECTOMY >250 G ASSISTED TOT AL W/TUBE/OVAR HYSTERECTOMY, [place] NI LAPAROTOMY, CYST OSCOPY; Surgeon: Deonna Leiva MD; Loc ation: MAIN OR; Service : TRANSPORTATION DEPARTMENT SUPERVISOR - GYNECOLOGIC ONCO LOGY VA SALPINGO-OOPHORECTOMY 11/28/2016 Bilateral Procedu re: ROBOTIC COMPL/PRTL UNI/BI SPX ASSISTED SALPINGO-OOPHORE CTOMY; Surgeon: Deonna Leiva MD; Loc ation: MAIN OR; Service : TRANSPORTATION DEPARTMENT SUPERVISOR - GYNECOLOGIC ONCO LOGY VA LMTD LMPHADEC STAGING 11/28/2016 Abdomen/Bilateral Proce dure: BILATERAL SPX PEL&PARA-AORTIC PELVIC BIOPS IES AND OMENTAL BIOPSY; Surgeon: Deonna ureña MD; Location: MAIN O R; Service: TRANSPORTATION DEPARTMENT SUPERVISOR - GYNECOLOGIC ONCO LOGY VA INTRAOP SENTINEL LYMPH 11/28/2016 Bilateral Proced ure: INTRAOPERATIVE NODE ID W/DYE INJECTION LYMPHATI C MAPPING; Surgeon: Deonna Leiva MD; Loc ation: MAIN OR; Service : TRANSPORTATION DEPARTMENT SUPERVISOR - GYNECOLOGIC ONCO LOGY CHOLECYSTECTOMY 05/25/2018 - 06/23/2018 COLONOSCOPY 09/24/2017 - 09/23/2018 Medical History Medical History Date Comments Hypertension Arthritis Cancer of female genital organ Family history of transient ischemic attack Atrial fibrillation Family History Medical History Relation Name Comments Heart attack Father Heart attack Mother Hypertension Mother Relation Name Status Comments Father Mother Social History Tobacco Use Types Packs/Day Years Used Date Smoking Tobacco: Former Cigarettes Quit : 1969 Smokeless Tobacco: Never Tobacco Cessation: Counseling Given: No Comments: quit 30yrs ago Alcohol Use Standard Drinks/Week Comments Yes 0 (1 standard drink = 0.6 oz pure alcoho l) social drinker Sex Assigned at Date Recorded Not on file Job Start Date Occupation Industry Not on file Not on file Not on file COVID-19 Exposure Response Date Recorded In the last 10 days, have you been in contact with No / Unsu re 08/14/2022 9:05 AM [facility] someone who was confirmed or suspected to have Coronavirus/COVID-19? Obstetrics History Para Term AB IAB SAB [...] Sign Reading Time Taken Comments Blood Pressure 131/76 08/14/2022 9:09 AM [facility] Pulse 70 08/14/2022 9:09 AM [facility] Temperature 36.4 C (97.5 F) 08/14/2022 9:09 AM [facility] Respiratory Rate 18 08/14/2022 9:09 AM [facility] Oxygen Saturation 96% 03/17/2022 9:50 AM CDT Inhaled Oxygen Concentration - - Weight 100.7 kg (222 lb 0.1 oz) 08/14/2022 9:09 AM [facility] Height - - Body Mass Index 38.61 04/27/2017 9:51 AM CDT Plan of Treatment Date Type Specialty Care Team Description 10/19/2022 Appointment Lab Deonna Leiva MD [address] [place] [address] [id number] (Ana Paula rk) 10/19/2022 Ancillary Procedure Radiology Karl Leiva MD [address] [place] [address] [id number] (Ana Paula rk) 10/20/2022 Follow-Up Gynecology Deonna Leiva MD [address] [place] [address] [phone] (Ana Paula rk) 11/16/2022 Follow-Up Pain Medicine Nolberto Israel MD [address] [place] [address] [phone] (Wo rk) 04/03/2023 Follow-Up Colorectal Surgery Marimar Doshi MD [address] [place] [address] 7703 (Wo barbara) Health Maintenance Due Date Last Done Comments COVID-19 Vaccination (3 - Mixed Product 06/11/2021 05/14/20 21, 04/25/2021 risk series) Procedures Procedure Name Priority Date/Time Associated Diagnosis Comme nts MANUAL DIFFERENTIAL Routine 07/21/2022 10:27 Metastatic cancer to Results for this AM CDT the peritoneum procedure are in Serous the results cystadenocarcinoma, section. NOS of endometrium Results CBC Routine 07/21/2022 10:27 Metastatic cancer to Res ults for this AM CDT the peritoneum procedure are in Serous the results cystadenocarcinoma, section. NOS of endometrium CALCIUM LEVEL TOTAL Routine 07/21/2022 10:27 Metastatic cancer to Results for this AM CDT the peritoneum procedure are in Serous the results cystadenocarcinoma, section. NOS of endometrium .GLOMERULAR FILTRATION Routine 07/21/2022 10:27 Metastatic can cer to Results for this RATE AM CDT the peritoneum procedure are in Serous the results cystadenocarcinoma, section. NOS of endometrium SERUM CREATININE Routine 07/21/2022 10:27 Metastatic cancer to Results for this AM CDT the peritoneum procedure are in Serous the results cystadenocarcinoma, section. NOS of endometrium ELECTROLYTE PANEL Routine 07/21/2022 10:27 Metastatic cancer t o Results for this AM CDT the peritoneum procedure are in Serous the results cystadenocarcinoma, section. NOS of endometrium BLOOD UREA NITROGEN Routine 07/21/2022 10:27 Metastatic cancer to Results for this AM CDT the peritoneum procedure are in Serous the results cystadenocarcinoma, section. NOS of endometrium GLUCOSE LEVEL Routine 07/21/2022 10:27 Metastatic cancer to Re sults for this AM CDT the peritoneum procedure are in Serous the results cystadenocarcinoma, section. NOS of endometrium MAGNESIUM LEVEL Routine 07/21/2022 10:27 Metastatic cancer to Results for this AM CDT the peritoneum procedure are in Serous the results cystadenocarcinoma, section. NOS of endometrium ASPARTATE Routine 07/21/2022 10:27 Metastatic cancer to Res ults for this AMINOTRANSFERASE AM CDT the peritoneum procedure are in Serous the results cystadenocarcinoma, section. NOS of endometrium ALANINE Routine 07/21/2022 10:27 Metastatic cancer to Res ults for this AMINOTRANSFERASE AM CDT the peritoneum procedure are in Serous the results cystadenocarcinoma, section. NOS of endometrium BILIRUBIN TOTAL Routine 07/21/2022 10:27 Metastatic cancer to Results for this AM CDT the peritoneum procedure are in Serous the results cystadenocarcinoma, section. NOS of endometrium BASIC METABOLIC PANEL, Routine 07/21/2022 10:27 Metastatic can cer to CALCIUM TOTAL AM CDT the peritoneum Serous cystadenocarcinoma, NOS of endometrium COMPLETE BLOOD COUNT W/ Routine 07/21/2022 10:27 Metastatic ca ncer to DIFFERENTIAL AM CDT the peritoneum Serous cystadenocarcinoma, NOS of endometrium CANCER ANTIGEN 125 Routine 07/21/2022 10:27 Metastatic cancer to Results for this AM CDT the peritoneum procedure are in Serous the results cystadenocarcinoma, section. NOS of endometrium EKG, 12-LEAD Routine 07/21/2022 Metastatic cancer to (SCHEDULED) the peritoneum Serous cystadenocarcinoma, NOS of endometrium PETCT SUBSEQUENT Routine 07/20/2022 10:24 Serous Results for this TREATMENT STRATEGY AM CDT cystadenocarcinoma, pr ocedure are in NOS of endometri um the results Encounter for section. antineoplastic chemotherapy 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 Congestive heart failure, not otherwise specified MANUAL DIFFERENTIAL Routine 06/23/2022 1:39 Metastatic cancer to Results for this PM CDT the peritoneum procedure are in Neoplasm, malignant the resu lts of endometrium section. Results CBC Routine 06/23/2022 1:39 Metastatic cancer to Resu lts for this PM CDT the peritoneum procedure are in Neoplasm, malignant the resu lts of endometrium section. CALCIUM LEVEL TOTAL Routine 06/23/2022 1:39 Metastatic cancer to Results for this PM CDT the peritoneum procedure are in Neoplasm, malignant the resu lts of endometrium section. .GLOMERULAR FILTRATION Routine 06/23/2022 1:39 Metastatic canc er to Results for this RATE PM CDT the peritoneum procedure are in Neoplasm, malignant the resu lts of endometrium section. SERUM CREATININE Routine 06/23/2022 1:39 Metastatic cancer to Results for this PM CDT the peritoneum procedure are in Neoplasm, malignant the resu lts of endometrium section. ELECTROLYTE PANEL Routine 06/23/2022 1:39 Metastatic cancer to Results for this PM CDT the peritoneum procedure are in Neoplasm, malignant the resu lts of endometrium section. BLOOD UREA NITROGEN Routine 06/23/2022 1:39 Metastatic cancer to Results for this PM CDT the peritoneum procedure are in Neoplasm, malignant the resu lts of endometrium section. GLUCOSE LEVEL Routine 06/23/2022 1:39 Metastatic cancer to Res ults for this PM CDT the peritoneum procedure are in Neoplasm, malignant the resu lts of endometrium section. MAGNESIUM LEVEL Routine 06/23/2022 1:39 Metastatic cancer to R esults for this PM CDT the peritoneum procedure are in Neoplasm, malignant the resu lts of endometrium section. ASPARTATE Routine 06/23/2022 1:39 Metastatic cancer to Resu lts for this AMINOTRANSFERASE PM CDT the peritoneum procedure are in Neoplasm, malignant the resu lts of endometrium section. ALANINE Routine 06/23/2022 1:39 Metastatic cancer to Resu lts for this AMINOTRANSFERASE PM CDT the peritoneum procedure are in Neoplasm, malignant the resu lts of endometrium section. BILIRUBIN TOTAL Routine 06/23/2022 1:39 Metastatic cancer to Results for this PM CDT the peritoneum procedure are in Neoplasm, malignant the resu lts of endometrium section. BASIC METABOLIC PANEL, Routine 06/23/2022 1:39 Metastatic canc er to CALCIUM TOTAL PM CDT the peritoneum Neoplasm, malignant of endometrium COMPLETE BLOOD COUNT W/ Routine 06/23/2022 1:39 Metastatic can cer to DIFFERENTIAL PM CDT the peritoneum Neoplasm, malignant of endometrium CANCER ANTIGEN 125 Routine 06/23/2022 1:39 Metastatic cancer t o Results for this PM CDT the peritoneum procedure are in Neoplasm, malignant the resu lts of endometrium section. PAIN MANAGEMENT Routine 06/19/2022 9:08 Chronic pain Results f or this FLUOROSCOPY AM CDT procedure are i n the results section. MANUAL DIFFERENTIAL Routine 05/26/2022 9:02 Metastatic cancer to Results for this AM CDT the peritoneum procedure are in Neoplasm, malignant the resu lts of endometrium section. Results CBC Routine 05/26/2022 9:02 Metastatic cancer to Resu lts for this AM CDT the peritoneum procedure are in Neoplasm, malignant the resu lts of endometrium section. CALCIUM LEVEL TOTAL Routine 05/26/2022 9:02 Metastatic cancer to Results for this AM CDT the peritoneum procedure are in Neoplasm, malignant the resu lts of endometrium section. .GLOMERULAR FILTRATION Routine 05/26/2022 9:02 Metastatic canc er to Results for this RATE AM CDT the peritoneum procedure are in Neoplasm, malignant the resu lts of endometrium section. SERUM CREATININE Routine 05/26/2022 9:02 Metastatic cancer to Results for this AM CDT the peritoneum procedure are in Neoplasm, malignant the resu lts of endometrium section. ELECTROLYTE PANEL Routine 05/26/2022 9:02 Metastatic cancer to Results for this AM CDT the peritoneum procedure are in Neoplasm, malignant the resu lts of endometrium section. BLOOD UREA NITROGEN Routine 05/26/2022 9:02 Metastatic cancer to Results for this AM CDT the peritoneum procedure are in Neoplasm, malignant the resu lts of endometrium section. GLUCOSE LEVEL Routine 05/26/2022 9:02 Metastatic cancer to Res ults for this AM CDT the peritoneum procedure are in Neoplasm, malignant the resu lts of endometrium section. MAGNESIUM LEVEL Routine 05/26/2022 9:02 Metastatic cancer to R esults for this AM CDT the peritoneum procedure are in Neoplasm, malignant the resu lts of endometrium section. ASPARTATE Routine 05/26/2022 9:02 Metastatic cancer to Resu lts for this AMINOTRANSFERASE AM CDT the peritoneum procedure are in Neoplasm, malignant the resu lts of endometrium section. ALANINE Routine 05/26/2022 9:02 Metastatic cancer to Resu lts for this AMINOTRANSFERASE AM CDT the peritoneum procedure are in Neoplasm, malignant the resu lts of endometrium section. BILIRUBIN TOTAL Routine 05/26/2022 9:02 Metastatic cancer to R esults for this AM CDT the peritoneum procedure are in Neoplasm, malignant the resu lts of endometrium section. BASIC METABOLIC PANEL, Routine 05/26/2022 9:02 Metastatic canc er to CALCIUM TOTAL AM CDT the peritoneum Neoplasm, malignant of endometrium COMPLETE BLOOD COUNT W/ Routine 05/26/2022 9:02 Metastatic can cer to DIFFERENTIAL AM CDT the peritoneum Neoplasm, malignant of endometrium CANCER ANTIGEN 125 Routine 05/26/2022 9:02 Metastatic cancer t o Results for this AM CDT the peritoneum procedure are in Neoplasm, malignant the resu lts of endometrium section. EKG, 12-LEAD Routine 05/26/2022 Metastatic cancer to (SCHEDULED) the peritoneum Neoplasm, malignant of endometrium MANUAL DIFFERENTIAL Routine 04/26/2022 7:19 Metastatic cancer to Results for this AM CDT the peritoneum procedure are in Neoplasm, malignant the resu lts of endometrium section. Results CBC Routine 04/26/2022 7:19 Metastatic cancer to Resu lts for this AM CDT the peritoneum procedure are in Neoplasm, malignant the resu lts of endometrium section. CALCIUM LEVEL TOTAL Routine 04/26/2022 7:19 Metastatic cancer to Results for this AM CDT the peritoneum procedure are in Neoplasm, malignant the resu lts of endometrium section. .GLOMERULAR FILTRATION Routine 04/26/2022 7:19 Metastatic canc er to Results for this RATE AM CDT the peritoneum procedure are in Neoplasm, malignant the resu lts of endometrium section. SERUM CREATININE Routine 04/26/2022 7:19 Metastatic cancer to Results for this AM CDT the peritoneum procedure are in Neoplasm, malignant the resu lts of endometrium section. ELECTROLYTE PANEL Routine 04/26/2022 7:19 Metastatic cancer to Results for this AM CDT the peritoneum procedure are in Neoplasm, malignant the resu lts of endometrium section. BLOOD UREA NITROGEN Routine 04/26/2022 7:19 Metastatic cancer to Results for this AM CDT the peritoneum procedure are in Neoplasm, malignant the resu lts of endometrium section. GLUCOSE LEVEL Routine 04/26/2022 7:19 Metastatic cancer to Res ults for this AM CDT the peritoneum procedure are in Neoplasm, malignant the resu lts of endometrium section. MAGNESIUM LEVEL Routine 04/26/2022 7:19 Metastatic cancer to R esults for this AM CDT the peritoneum procedure are in Neoplasm, malignant the resu lts of endometrium section. ASPARTATE Routine 04/26/2022 7:19 Metastatic cancer to Resu lts for this AMINOTRANSFERASE AM CDT the peritoneum procedure are in Neoplasm, malignant the resu lts of endometrium section. ALANINE Routine 04/26/2022 7:19 Metastatic cancer to Resu lts for this AMINOTRANSFERASE AM CDT the peritoneum procedure are in Neoplasm, malignant the resu lts of endometrium section. BILIRUBIN TOTAL Routine 04/26/2022 7:19 Metastatic cancer to R esults for this AM CDT the peritoneum procedure are in Neoplasm, malignant the resu lts of endometrium section. BASIC METABOLIC PANEL, Routine 04/26/2022 7:19 Metastatic canc er to CALCIUM TOTAL AM CDT the peritoneum Neoplasm, malignant of endometrium COMPLETE BLOOD COUNT W/ Routine 04/26/2022 7:19 Metastatic can cer to DIFFERENTIAL AM CDT the peritoneum Neoplasm, malignant of endometrium CANCER ANTIGEN 125 Routine 04/26/2022 7:19 Metastatic cancer t o Results for this AM CDT the peritoneum procedure are in Neoplasm, malignant the resu lts of endometrium section. CT CHEST ABDOMEN PELVIS Routine 04/20/2022 1:27 Neoplasm, nicole gnant Results for this W CONTRAST PM CDT of endometrium procedure are in Metastatic cancer to the res ults the peritoneum section. POC CREATININE Routine 04/20/2022 12:39 Results f or this PM CDT procedure are i n the results section. MANUAL DIFFERENTIAL Routine 03/17/2022 7:42 Metastatic cancer to Results for this AM CDT the peritoneum procedure are in Neoplasm, malignant the resu lts of endometrium section. Results CBC Routine 03/17/2022 7:42 Metastatic cancer to Resu lts for this AM CDT the peritoneum procedure are in Neoplasm, malignant the resu lts of endometrium section. CALCIUM LEVEL TOTAL Routine 03/17/2022 7:42 Metastatic cancer to Results for this AM CDT the peritoneum procedure are in Neoplasm, malignant the resu lts of endometrium section. .GLOMERULAR FILTRATION Routine 03/17/2022 7:42 Metastatic canc er to Results for this RATE AM CDT the peritoneum procedure are in Neoplasm, malignant the resu lts of endometrium section. SERUM CREATININE Routine 03/17/2022 7:42 Metastatic cancer to Results for this AM CDT the peritoneum procedure are in Neoplasm, malignant the resu lts of endometrium section. ELECTROLYTE PANEL Routine 03/17/2022 7:42 Metastatic cancer to Results for this AM CDT the peritoneum procedure are in Neoplasm, malignant the resu lts of endometrium section. BLOOD UREA NITROGEN Routine 03/17/2022 7:42 Metastatic cancer to Results for this AM CDT the peritoneum procedure are in Neoplasm, malignant the resu lts of endometrium section. GLUCOSE LEVEL Routine 03/17/2022 7:42 Metastatic cancer to Res ults for this AM CDT the peritoneum procedure are in Neoplasm, malignant the resu lts of endometrium section. MAGNESIUM LEVEL Routine 03/17/2022 7:42 Metastatic cancer to R esults for this AM CDT the peritoneum procedure are in Neoplasm, malignant the resu lts of endometrium section. ASPARTATE Routine 03/17/2022 7:42 Metastatic cancer to Resu lts for this AMINOTRANSFERASE AM CDT the peritoneum procedure are in Neoplasm, malignant the resu lts of endometrium section. ALANINE Routine 03/17/2022 7:42 Metastatic cancer to Resu lts for this AMINOTRANSFERASE AM CDT the peritoneum procedure are in Neoplasm, malignant the resu lts of endometrium section. BILIRUBIN TOTAL Routine 03/17/2022 7:42 Metastatic cancer to R esults for this AM CDT the peritoneum procedure are in Neoplasm, malignant the resu lts of endometrium section. BASIC METABOLIC PANEL, Routine 03/17/2022 7:42 Metastatic canc er to CALCIUM TOTAL AM CDT the peritoneum Neoplasm, malignant of endometrium COMPLETE BLOOD COUNT W/ Routine 03/17/2022 7:42 Metastatic can cer to DIFFERENTIAL AM CDT the peritoneum Neoplasm, malignant of endometrium CANCER ANTIGEN 125 Routine 03/17/2022 7:42 Metastatic cancer t o Results for this AM CDT the peritoneum procedure are in Neoplasm, malignant the resu lts of endometrium section. 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 Results CBC Routine 02/17/2022 11:57 Metastatic cancer to Res ults for this AM CDT the peritoneum procedure are in Neoplasm, malignant the resu lts of endometrium section. CALCIUM LEVEL TOTAL Routine 02/17/2022 11:57 Metastatic cancer to Results for this AM CDT the peritoneum procedure are in Neoplasm, malignant the resu lts of endometrium section. .GLOMERULAR FILTRATION Routine 02/17/2022 11:57 Metastatic can cer to Results for this RATE AM CDT the peritoneum procedure are in Neoplasm, malignant the resu lts of endometrium section. SERUM CREATININE Routine 02/17/2022 11:57 Metastatic cancer to Results for this AM CDT the peritoneum procedure are in Neoplasm, malignant the resu lts of endometrium section. ELECTROLYTE PANEL Routine 02/17/2022 11:57 Metastatic cancer t o Results for this AM CDT the peritoneum procedure are in Neoplasm, malignant the resu lts of endometrium section. BLOOD UREA NITROGEN Routine 02/17/2022 11:57 Metastatic cancer to Results for this AM CDT the peritoneum procedure are in Neoplasm, malignant the resu lts of endometrium section. GLUCOSE LEVEL Routine 02/17/2022 11:57 Metastatic cancer to Re sults for this AM CDT the peritoneum procedure are in Neoplasm, malignant the resu lts of endometrium section. MAGNESIUM LEVEL Routine 02/17/2022 11:57 Metastatic cancer to Results for this AM CDT the peritoneum procedure are in Neoplasm, malignant the resu lts of endometrium section. ASPARTATE Routine 02/17/2022 11:57 Metastatic cancer to Res ults for this AMINOTRANSFERASE AM CDT the peritoneum procedure are in Neoplasm, malignant the resu lts of endometrium section. ALANINE Routine 02/17/2022 11:57 Metastatic cancer to Res ults for this AMINOTRANSFERASE AM CDT the peritoneum procedure are in Neoplasm, malignant the resu lts of endometrium section. BILIRUBIN TOTAL Routine 02/17/2022 11:57 Metastatic cancer to Results for this AM CDT the peritoneum procedure are in Neoplasm, malignant the resu lts of endometrium section. BASIC METABOLIC PANEL, Routine 02/17/2022 11:57 Metastatic can cer to CALCIUM TOTAL AM CDT the peritoneum Neoplasm, malignant of endometrium COMPLETE BLOOD COUNT W/ Routine 02/17/2022 11:57 Metastatic ca ncer to DIFFERENTIAL AM CDT the peritoneum Neoplasm, malignant of endometrium CANCER ANTIGEN 125 Routine 02/17/2022 11:57 Metastatic cancer to Results for this AM CDT the peritoneum procedure are in Neoplasm, malignant the resu lts of endometrium section. MANUAL DIFFERENTIAL Routine 02/10/2022 10:36 Metastatic cancer to Results for this AM CDT the peritoneum procedure are in Neoplasm, malignant the resu lts of endometrium section. Results CBC Routine 02/10/2022 10:36 Metastatic cancer to Res ults for this AM CDT the peritoneum procedure are in Neoplasm, malignant the resu lts of endometrium section. CALCIUM LEVEL TOTAL Routine 02/10/2022 10:36 Metastatic cancer to Results for this AM CDT the peritoneum procedure are in Neoplasm, malignant the resu lts of endometrium section. .GLOMERULAR FILTRATION Routine 02/10/2022 10:36 Metastatic can cer to Results for this RATE AM CDT the peritoneum procedure are in Neoplasm, malignant the resu lts of endometrium section. SERUM CREATININE Routine 02/10/2022 10:36 Metastatic cancer to Results for this AM CDT the peritoneum procedure are in Neoplasm, malignant the resu lts of endometrium section. ELECTROLYTE PANEL Routine 02/10/2022 10:36 Metastatic cancer t o Results for this AM CDT the peritoneum procedure are in Neoplasm, malignant the resu lts of endometrium section. BLOOD UREA NITROGEN Routine 02/10/2022 10:36 Metastatic cancer to Results for this AM CDT the peritoneum procedure are in Neoplasm, malignant the resu lts of endometrium section. GLUCOSE LEVEL Routine 02/10/2022 10:36 Metastatic cancer to Re sults for this AM CDT the peritoneum procedure are in Neoplasm, malignant the resu lts of endometrium section. MAGNESIUM LEVEL Routine 02/10/2022 10:36 Metastatic cancer to Results for this AM CDT the peritoneum procedure are in Neoplasm, malignant the resu lts of endometrium section. ASPARTATE Routine 02/10/2022 10:36 Metastatic cancer to Res ults for this AMINOTRANSFERASE AM CDT the peritoneum procedure are in Neoplasm, malignant the resu lts of endometrium section. ALANINE Routine 02/10/2022 10:36 Metastatic cancer to Res ults for this AMINOTRANSFERASE AM CDT the peritoneum procedure are in Neoplasm, malignant the resu lts of endometrium section. BILIRUBIN TOTAL Routine 02/10/2022 10:36 Metastatic cancer to Results for this AM CDT the peritoneum procedure are in Neoplasm, malignant the resu lts of endometrium section. BASIC METABOLIC PANEL, Routine 02/10/2022 10:36 Metastatic can cer to CALCIUM TOTAL AM CDT the peritoneum Neoplasm, malignant of endometrium COMPLETE BLOOD COUNT W/ Routine 02/10/2022 10:36 Metastatic ca ncer to DIFFERENTIAL AM CDT the peritoneum Neoplasm, malignant of endometrium CANCER ANTIGEN 125 Routine 02/10/2022 10:36 Metastatic cancer to Results for this AM CDT the peritoneum procedure are in Neoplasm, malignant the resu lts of endometrium section. MANUAL DIFFERENTIAL Routine 01/13/2022 6:51 Metastatic cancer to Results for this AM CDT the peritoneum procedure are in Neoplasm, malignant the resu lts of endometrium section. Results CBC Routine 01/13/2022 6:51 Metastatic cancer to Resu lts for this AM CDT the peritoneum procedure are in Neoplasm, malignant the resu lts of endometrium section. CALCIUM LEVEL TOTAL Routine 01/13/2022 6:51 Metastatic cancer to Results for this AM CDT the peritoneum procedure are in Neoplasm, malignant the resu lts of endometrium section. .GLOMERULAR FILTRATION Routine 01/13/2022 6:51 Metastatic canc er to Results for this RATE AM CDT the peritoneum procedure are in Neoplasm, malignant the resu lts of endometrium section. SERUM CREATININE Routine 01/13/2022 6:51 Metastatic cancer to Results for this AM CDT the peritoneum procedure are in Neoplasm, malignant the resu lts of endometrium section. ELECTROLYTE PANEL Routine 01/13/2022 6:51 Metastatic cancer to Results for this AM CDT the peritoneum procedure are in Neoplasm, malignant the resu lts of endometrium section. BLOOD UREA NITROGEN Routine 01/13/2022 6:51 Metastatic cancer to Results for this AM CDT the peritoneum procedure are in Neoplasm, malignant the resu lts of endometrium section. GLUCOSE LEVEL Routine 01/13/2022 6:51 Metastatic cancer to Res ults for this AM CDT the peritoneum procedure are in Neoplasm, malignant the resu lts of endometrium section. MAGNESIUM LEVEL Routine 01/13/2022 6:51 Metastatic cancer to R esults for this AM CDT the peritoneum procedure are in Neoplasm, malignant the resu lts of endometrium section. ASPARTATE Routine 01/13/2022 6:51 Metastatic cancer to Resu lts for this AMINOTRANSFERASE AM CDT the peritoneum procedure are in Neoplasm, malignant the resu lts of endometrium section. ALANINE Routine 01/13/2022 6:51 Metastatic cancer to Resu lts for this AMINOTRANSFERASE AM CDT the peritoneum procedure are in Neoplasm, malignant the resu lts of endometrium section. BILIRUBIN TOTAL Routine 01/13/2022 6:51 Metastatic cancer to R esults for this AM CDT the peritoneum procedure are in Neoplasm, malignant the resu lts of endometrium section. BASIC METABOLIC PANEL, Routine 01/13/2022 6:51 Metastatic canc er to CALCIUM TOTAL AM CDT the peritoneum Neoplasm, malignant of endometrium COMPLETE BLOOD COUNT W/ Routine 01/13/2022 6:51 Metastatic can cer to DIFFERENTIAL AM CDT the peritoneum Neoplasm, malignant of endometrium CANCER ANTIGEN 125 Routine 01/13/2022 6:51 Metastatic cancer t o Results for this AM CDT the peritoneum procedure are in Neoplasm, malignant the resu lts of endometrium section. PAIN MANAGEMENT Routine 01/05/2022 1:24 Chronic pain Results f or this FLUOROSCOPY PM CDT procedure are i n the results section. CT CHEST ABDOMEN PELVIS Routine 12/30/2021 11:23 Neoplasm, mal ignant Results for this W CONTRAST AM CDT of endometrium procedure are in Metastatic cancer to the res ults the peritoneum section. ALKALINE PHOSPHATASE Routine 12/30/2021 9:38 Neoplasm, maligna nt Results for this AM CDT of endometrium procedure are in Metastatic cancer to the res ults the peritoneum section. Elevated total bilirubin FRACTIONATED BILIRUBIN Routine 12/30/2021 9:38 Neoplasm, malig nant Results for this AM CDT of endometrium procedure are in Metastatic cancer to the res ults the peritoneum section. Elevated total bilirubin TOTAL PROTEIN Routine 12/30/2021 9:38 Neoplasm, malignant Resu lts for this AM CDT of endometrium procedure are in Metastatic cancer to the res ults the peritoneum section. Elevated total bilirubin ASPARTATE Routine 12/30/2021 9:38 Neoplasm, malignant Resul ts for this AMINOTRANSFERASE AM CDT of endometrium procedure are in Metastatic cancer to the res ults the peritoneum section. Elevated total bilirubin ALANINE Routine 12/30/2021 9:38 Neoplasm, malignant Resul ts for this AMINOTRANSFERASE AM CDT of endometrium procedure are in Metastatic cancer to the res ults the peritoneum section. Elevated total bilirubin ALBUMIN LEVEL Routine 12/30/2021 9:38 Neoplasm, malignant Resu lts for this AM CDT of endometrium procedure are in Metastatic cancer to the res ults the peritoneum section. 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 US ABDOMEN LIMITED Routine 12/30/2021 9:00 Neoplasm, malignant Results for this AM CDT [...] procedure are in the results section. ALANINE Routine 12/23/2021 11:48 Neoplasm, malignant Resu lts [...] are in the results section. EKG, 12-LEAD Routine 12/14/2021 Paroxysmal atrial (SCHEDULED) fibrillation COMBINED RIGHT AND LEFT Routine 11/28/2021 10:10 Cardiomegaly HEART CATH AM [facility] POC OXIMETRY VENOUS Routine 11/28/2021 9:44 Resul ts for this AM [facility] procedure are i n the results section. POC OXIMETRY ARTERIAL Routine 11/28/2021 9:35 Res ults for this AM [facility] procedure are i n the results section. POC GLUCOSE SCREEN Routine 11/28/2021 8:47 Result s for this AM [facility] procedure are i n the results section. CLOT EXPIRATION DATE Routine 11/28/2021 7:41 Resu lts for this AM [facility] procedure are i n the results section. TMP INTERPRETATION Routine 11/28/2021 7:41 Result s for this ANTIBODY SCREEN AM [facility] procedure ar e in NEGATIVE the results section. ANTIBODY SCREEN Routine 11/28/2021 7:41 Cardiomegaly Results for this AM [facility] Coronary artery procedure ar e in disease due to the results calcified coronary section. lesion Essential (primary) hypertension Morbid (severe) obesity due to excess calories ABORH Routine 11/28/2021 7:41 Cardiomegaly Results for this AM [facility] Coronary artery procedure ar e in disease due to the results calcified coronary section. lesion Essential (primary) hypertension Morbid (severe) obesity due to excess calories TYPE AND SCREEN Routine 11/28/2021 7:41 Cardiomegaly AM [facility] Coronary artery disease due to calcified coronary lesion Essential (primary) hypertension Morbid (severe) obesity due to excess calories ECHOCARDIOGRAM 2D Routine 11/21/2021 7:51 Cardiomegaly Results for this COMPLETE AM [facility] procedure are i n the results section. GENERAL LABORATORY ADD Now 11/18/2021 1:50 Pre op labs Re sults for this ON TEST PM [facility] procedure are i n the results section. COVID-19 (SARS-COV-2) Routine 11/18/2021 12:07 Suspected COVID -19 Results for this PCR-ASYMPTOMATIC [facility] PM [facility] procedur e are in the results section. URINALYSIS MICROSCOPIC Routine 11/18/2021 11:36 R esults for this [facility] procedure are i n the results section. URINALYSIS WITH Routine 11/18/2021 11:36 Neoplasm, malignant R esults for this MICROSCOPIC IF [facility] of endometrium procedure are in INDICATED Metastatic cancer to the res ults the peritoneum section. Cardiomegaly Coronary artery disease due to calcified coronary lesion Essential (primary) hypertension URINE CULTURE Routine 11/18/2021 11:36 Neoplasm, malignant Res ults for this [facility] of endometrium procedure are in Metastatic cancer to the res ults the peritoneum section. Cardiomegaly Coronary artery disease due to calcified coronary lesion Essential (primary) hypertension FREE THYROXINE Routine 11/18/2021 11:23 Results f or this [facility] procedure are i n the results section. THYROID STIMULATING Routine 11/18/2021 11:23 Resu lts for this HORMONE [facility] procedure are i n the results section. FRACTIONATED BILIRUBIN Routine 11/18/2021 11:23 Neoplasm, nicole gnant Results for this [facility] of endometrium procedure are in Metastatic cancer to the res ults the peritoneum section. Cardiomegaly Coronary artery disease due to calcified coronary lesion Essential (primary) hypertension TOTAL PROTEIN Routine 11/18/2021 11:23 Neoplasm, malignant Res ults for this [facility] of endometrium procedure are in Metastatic cancer to the res ults the peritoneum section. Cardiomegaly Coronary artery disease due to calcified coronary lesion Essential (primary) hypertension ASPARTATE Routine 11/18/2021 11:23 Neoplasm, malignant Resu lts for this AMINOTRANSFERASE [facility] of endometrium procedure are in Metastatic cancer to the res ults the peritoneum section. Cardiomegaly Coronary artery disease due to calcified coronary lesion Essential (primary) hypertension ALANINE Routine 11/18/2021 11:23 Neoplasm, malignant Resu lts for this AMINOTRANSFERASE [facility] of endometrium procedure are in Metastatic cancer to the res ults the peritoneum section. Cardiomegaly Coronary artery disease due to calcified coronary lesion Essential (primary) hypertension ALKALINE PHOSPHATASE Routine 11/18/2021 11:23 Neoplasm, malign ant Results for this [facility] of endometrium procedure are in Metastatic cancer to the res ults the peritoneum section. Cardiomegaly Coronary artery disease due to calcified coronary lesion Essential (primary) hypertension ALBUMIN LEVEL Routine 11/18/2021 11:23 Neoplasm, malignant Res ults for this [facility] of endometrium procedure are in Metastatic cancer to the res ults the peritoneum section. Cardiomegaly Coronary artery disease due to calcified coronary lesion Essential (primary) hypertension CALCIUM LEVEL TOTAL Routine 11/18/2021 11:23 Neoplasm, maligna nt Results for this [facility] of endometrium procedure are in Metastatic cancer to the res ults the peritoneum section. Cardiomegaly Coronary artery disease due to calcified coronary lesion Essential (primary) hypertension .GLOMERULAR FILTRATION Routine 11/18/2021 11:23 Neoplasm, nicole gnant Results for this RATE [facility] of endometrium procedure are in Metastatic cancer to the res ults the peritoneum section. Cardiomegaly Coronary artery disease due to calcified coronary lesion Essential (primary) hypertension SERUM CREATININE Routine 11/18/2021 11:23 Neoplasm, malignant Results for this [facility] of endometrium procedure are in Metastatic cancer to the res ults the peritoneum section. Cardiomegaly Coronary artery disease due to calcified coronary lesion Essential (primary) hypertension ELECTROLYTE PANEL Routine 11/18/2021 11:23 Neoplasm, malignant Results for this [facility] of endometrium procedure are in Metastatic cancer to the res ults the peritoneum section. Cardiomegaly Coronary artery disease due to calcified coronary lesion Essential (primary) hypertension BLOOD UREA NITROGEN Routine 11/18/2021 11:23 Neoplasm, maligna nt Results for this [facility] of endometrium procedure are in Metastatic cancer to the res ults the peritoneum section. Cardiomegaly Coronary artery disease due to calcified coronary lesion Essential (primary) hypertension GLUCOSE LEVEL Routine 11/18/2021 11:23 Neoplasm, malignant Res ults for this [facility] of endometrium procedure are in Metastatic cancer to the res ults the peritoneum section. Cardiomegaly Coronary artery disease due to calcified coronary lesion Essential (primary) hypertension MANUAL DIFFERENTIAL Routine 11/18/2021 11:23 Neoplasm, maligna nt Results for this [facility] of endometrium procedure are in Metastatic cancer to the res ults the peritoneum section. Cardiomegaly Coronary artery disease due to calcified coronary lesion Essential (primary) hypertension Results CBC Routine 11/18/2021 11:23 Neoplasm, malignant Resu lts for this [facility] of endometrium procedure are in Metastatic cancer to the res ults the peritoneum section. Cardiomegaly Coronary artery disease due to calcified coronary lesion Essential (primary) hypertension APTT Routine 11/18/2021 11:23 Neoplasm, malignant Resu lts for this [facility] of endometrium procedure are in Metastatic cancer to the res ults the peritoneum section. Cardiomegaly Coronary artery disease due to calcified coronary lesion Essential (primary) hypertension PROTHROMBIN TIME Routine 11/18/2021 11:23 Neoplasm, malignant Results for this [facility] of endometrium procedure are in Metastatic cancer to the res ults the peritoneum section. 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 Cardiomegaly Coronary artery disease due to calcified coronary lesion Essential (primary) hypertension CLOT EXPIRATION DATE Routine 11/18/2021 11:15 Res ults for this [facility] procedure are i n the results section. TMP INTERPRETATION Routine 11/18/2021 11:15 Resul ts for this ANTIBODY SCREEN [facility] procedure ar e in NEGATIVE the results section. ANTIBODY SCREEN Routine 11/18/2021 11:15 Neoplasm, malignant R esults for this [facility] of endometrium procedure are in Metastatic cancer to the res ults the peritoneum section. Cardiomegaly Coronary artery disease due to calcified coronary lesion Essential (primary) hypertension ABORH Routine 11/18/2021 11:15 Neoplasm, malignant Resu lts for this [facility] of endometrium procedure are in Metastatic cancer to the res ults the peritoneum section. Cardiomegaly Coronary artery disease due to calcified coronary lesion Essential (primary) hypertension HEMOGLOBIN A1C Routine 11/18/2021 11:15 Neoplasm, malignant Re sults for this [facility] of endometrium procedure are in Metastatic cancer to the res ults the peritoneum section. 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 US BREAST COMPLETE Routine 11/04/2021 1:27 Mammography abnorma l Results for this BILATERAL [facility] procedure are i n the results section. MAMMO DIGITAL Routine 11/04/2021 12:27 Mammography abnormal Re sults for this DIAGNOSTIC BILATERAL W [facility] proce dure are in ABDELRAHMAN the results section. HUSSEIN VUONG MICROSATELLITE Routine 10/26/2021 7:03 INSTABILITY (MSI) [facility] ANALYSIS INTERPRETATION AND REPORT IR CT GUIDED BIOPSY Routine 10/25/2021 1:03 Neoplasm, malignan t Results for this PELVIC NON-BONE [facility] of endometrium procedure are in Metastatic cancer to the res ults the peritoneum section. CYTOLOGY IMAGE-GUIDED Routine 10/25/2021 12:08 Neoplasm, malig nant Results for this FNA INTERPRETATION [facility] of endometriu m procedure are in Metastatic cancer to the res ults the peritoneum section. PATHOLOGY BIOPSY Routine 10/25/2021 12:07 Neoplasm, malignant Results for this INTERPRETATION [facility] of endometrium procedure are in Metastatic cancer to the res ults the peritoneum section. EKG, 12-LEAD (PORTABLE) Routine 10/25/2021 CLOT EXPIRATION DATE Routine 10/24/2021 9:56 Resu lts for this [facility] procedure are i n the results section. TMP INTERPRETATION Routine 10/24/2021 9:56 Result s for this ANTIBODY SCREEN [facility] procedure ar e in NEGATIVE the results section. ANION GAP Routine 10/24/2021 9:56 Results for this [facility] procedure are i n the results section. ANTIBODY SCREEN Routine 10/24/2021 9:56 Results f or this [facility] procedure are i n the results section. ABORH Routine 10/24/2021 9:56 Results for this [facility] procedure are i n the results section. .GLOMERULAR FILTRATION Routine 10/24/2021 9:56 Re sults for this RATE [facility] procedure are i n the results section. SERUM CREATININE Routine 10/24/2021 9:56 Results for this [facility] procedure are i n the results section. MANUAL DIFFERENTIAL Routine 10/24/2021 9:56 Resul ts for this [facility] procedure are i n the results section. Results CBC Routine 10/24/2021 9:56 Results for this [facility] procedure are i n the results section. TYPE AND SCREEN Routine 10/24/2021 9:56 [facility] GLUCOSE, RANDOM Routine 10/24/2021 9:56 Results f or this [facility] procedure are i n the results section. PROTHROMBIN TIME Routine 10/24/2021 9:56 Results for this [facility] procedure are i n the results section. BLOOD UREA NITROGEN Routine 10/24/2021 9:56 Resul ts for this [facility] procedure are i n the results section. SERUM CREATININE Routine 10/24/2021 9:56 [facility] POTASSIUM LEVEL Routine 10/24/2021 9:56 Results f or this [facility] procedure are i n the results section. SODIUM LEVEL Routine 10/24/2021 9:56 Results for this [facility] procedure are i n the results section. CHLORIDE LEVEL Routine 10/24/2021 9:56 Results fo r this [facility] procedure are i n the results section. CARBON DIOXIDE LEVEL Routine 10/24/2021 9:56 Resu lts for this [facility] procedure are i n the results section. COMPLETE BLOOD COUNT W/ Routine 10/24/2021 9:56 DIFFERENTIAL [facility] COVID-19 (SARS-COV-2) Routine 10/24/2021 9:53 Res ults for this PCR-ASYMPTOMATIC [facility] procedur e are in the results section. AP MSI BY PCR Routine 10/16/2021 4:50 Neoplasm, malignant R esults for this MATERIAL REQUEST [facility] of endometrium procedure are in Metastatic cancer to the res ults the peritoneum section. AP IHC HER2/LAURA Routine 10/16/2021 4:50 Neoplasm, malignant MATERIAL REQUEST [facility] of endometrium 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 AP IHC MSI (MLH1, MSH2, Routine 10/16/2021 4:50 Neoplasm, nicole gnant MSH6, PMS2) MATERIAL [facility] of endometr ium REQUEST 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 CT CHEST ABDOMEN PELVIS Routine 10/13/2021 8:37 History of mal ignant Results for this W CONTRAST [facility] neoplasm of procedure are i n endometrium the results Malignant neoplasm of sectio n. endometrium POC CREATININE Routine 10/13/2021 7:55 Results fo r this [facility] procedure are i n the results section. OSI MAMMO BILATERAL Routine 10/07/2021 4:29 Cancer Resul ts for this [facility] procedure are i n the results section. OSI BONE DENSITY STUDY Routine 10/07/2021 4:29 Cancer Re sults for this [facility] procedure are i n the results section. PATHOLOGY BIOPSY Routine 09/30/2021 1:11 History of malignant Results for this INTERPRETATION [facility] neoplasm of procedure are in endometrium the results Malignant neoplasm of sectio n. endometrium CANCER ANTIGEN 125 Routine 09/30/2021 11:35 History of maligna nt Results for this [facility] neoplasm of procedure are i n endometrium the results Malignant neoplasm of sectio n. endometrium after 08/31/2021 Results (ABNORMAL) .Serum Creatinine (07/21/2022 10:27 AM CDT)Only the most recent of11 resultswithin the time period is included. athologist Signature Creatinine 1.03 (H) 0.51 - 0.95 [place] mg/dL Comment: Testing performed at [facility], [address] [place] [id number] Specimen Anatomical Collection Method Collection Time Receive d Time (Source) Location / / Volume Laterality Blood 07/21/2022 10:27 07/21/2022 AM CDT 10:27 AM CDT Deonna Leiva MD LAB BLOOD ORDERABLES Performing Organization Address City/State/ZIP Code Phon e Number [place] [id number] [address] [place] [address] (ABNORMAL) .CBC (07/21/2022 10:27 AM CDT)Only the most recent of11 resultswithin the time period is included. P athologist Signature WBC 3.2 (L) 4.0 - 11.0 [place] K/uL Comment: All components of the CBC perfo rmed at [facility], [address] [place] [address] RBC 2.98 (L) 4.00 - 5.50 M/uL [place] Comment: As part of CBC testing performe d at [facility], [address] [place] [address] Hgb 10.5 (L) 12.0 - 16.0 gm/dL [place] Comment: As part of CBC or as an individ ual orderable testing performed at [facility], [address] [place] [address] Hct 31.7 (L) 37.0 - 47.0 % [place] Comment: As part of CBC or as an individ ual orderable testing performed at [facility], [address] [place] [address] MCV 106 (H) 82 - 98 fL [place] Comment: As part of CBC testing performe d at [facility], [address] [place] [address] MCH 35.2 (H) 27.0 - 31.0 pg [place] Comment: As part of CBC testing performe d at [facility], [address] [place] [address] MCHC 33.1 31.0 - 36.0 gm/dL [place] Comment: As part of CBC testing performe d at [facility], [address] [place] [address] RDW-SD 60.1 (H) 35.1 - 46.3 fL [place] Comment: As part of CBC testing performe d at [facility], [address] [place] [address] RDW-CV 15.8 (H) 12.0 - 15.5 % [place] Comment: As part of CBC testing performe d at [facility], [address] [place] [address] Platelet count 120 (L) 140 - 440 K/uL [place] Comment: As part of CBC or as an individ ual orderable testing performed at [facility], [address] [place] [address] MPV 9.1 4.0 - 10.4 fL [place] Comment: As part of CBC testing performe d at [facility], [address] [place] [address] Specimen Anatomical Collection Method Collection Time Receive d Time (Source) Location / / Volume Laterality Blood 07/21/2022 10:27 07/21/2022 AM CDT 10:27 AM CDT Deonna Leiva MD LAB BLOOD ORDERABLES Performing Organization Address City/State/ZIP Code Phon e Number [address] (ABNORMAL) Glomerular Filtration Rate (07/21/2022 10:27 AM CDT)Only the most recent of11 resultswithin the time period is included. P athologist Signature eGFR 58 (L) >=60 [place] mL/min/1.73 sq. m Comment: The eGFRcr is calculated with the 2020 KD-EPI creatinine equation using creatinine, patient's age, and sex for adults 18 years of age and older. Other factors, especially muscle mass, may affect accuracy and need to be considered. According to the Kidney Disease: Improvi ng Global Outcomes (KDIGO) CKD Work Group 2012 Clinical Practice Guideline, chronic kidney disease (CKD) is defined as the abnormalities of kidney structure or function, present for more than 3 months, with implications for health. CKD should be c lassified by cause, GFR category, and albuminuria category. KDIGO guidelines provide the following GFR categories Stage Description GFR mL/min/1.73 m2 G1* Normal or high >= 90 G2* Mildly decreased 60-89 G3a Mildly to moderately decreased 45-59 G3b Moderately to severely decreased 30- 44 G4 Severely decreased 15-29 G5 Kidney failure <15 *In the absence of evidence of kidney da mage, neither G1 nor G2 fulfill criteria for CKD. Testing performed at [facility], [address] [place] [address] Specimen Anatomical Collection Method Collection Time Receive d Time (Source) Location / / Volume Laterality Blood 07/21/2022 10:27 07/21/2022 AM CDT 10:27 AM CDT Deonna Leiva MD LAB BLOOD ORDERABLES Performing Organization Address City/State/ZIP Code Phon e Number [place] [address] (ABNORMAL) Differential (07/21/2022 10:27 AM CDT)Only the most recent of11 resultswithin the time period is included. athologist Signature Neutrophil % 56.2 42.0 - 66.0 [facility] % Comment: All components of the Different ial performed at [facility], [address] [place] [address] Lymphocyte % 33.6 24.0 - 44.0 % [facility] Comment: As part of Differential, testin g performed at [facility], [address] [place] [address] Monocyte % 8.0 (H) 2.0 - 7.0 % [facility] Comment: As part of Differential, testin g performed at [facility], [address] [place] [address] Eosinophil % 1.9 1.0 - 4.0 % [facility] Comment: As part of Differential, testin g performed at [facility], [address] [place] [address] Basophil % 0.3 0.0 - 1.0 % [facility] Comment: As part of Differential, testin g performed at [facility], [address] [place] [address] Neutrophil Abs 1.82 1.70 - 7.30 K/uL [place] Comment: As part of Differential, testin g performed at [facility], [address] [place] [address] Lymphocyte Abs 1.09 1.00 - 4.80 K/uL [place] Comment: As part of Differential, testin g performed at [facility], [address] [place] [address],[place] [id number] Monocyte Abs 0.26 0.08 - 0.70 K/uL [place] Comment: As part of Differential, testin g performed at [facility], [address] [place], [place] [address] Eosinophil Abs 0.06 0.04 - 0.40 K/uL [place] Comment: As part of Differential, testin g performed at [facility], [address] [place], [place] [address] Basophil Abs 0.01 0.00 - 0.10 K/uL [place] Comment: As part of Differential, testin g performed at [facility], [address] [place] [address] Specimen Anatomical Collection Method Collection Time Receive d Time (Source) Location / / Volume Laterality Blood 07/21/2022 10:27 07/21/2022 AM CDT 10:27 AM CDT Deonna Leiva MD LAB BLOOD ORDERABLES Performing Organization Address City/State/ZIP Code Phon e Number [place] [address] [place] 125 (07/21/2022 10:27 AM CDT)Only the most recent of11 resultswithin the time period is included. athologist Signature [place] 125 8.8 <=38.0 U/mL [place] Comment: Results greater than 11,500.0 U/L may no t be reliable due to matrix effect with extended dilution as it exceeds the working second hand s recommended limit. Caution should be exercised when interpreting such values and done in conjunction with cli nical context. Reference intervals are not available fo r male patients. Results should be interpreted in conjunction with clinical context. This test is measured by electrochemilum inescence immunoassay on Baldev Dereck immunoassay analyzers. Results obtained in different methods are not interchangeable. Testing performed at [facility], [address] [place] [address] Specimen Anatomical Collection Method Collection Time Receive d Time (Source) Location / / Volume Laterality Blood 07/21/2022 10:27 07/21/2022 AM CDT 10:27 AM CDT Deonna Leiva MD LAB BLOOD ORDERABLES Performing Organization Address City/[facility]/ZIP Code Phon e Number [address] BUN (07/21/2022 10:27 AM CDT)Only the most recent of11 resultswithin the time period is included. athologist Signature BUN 19 6 - 23 mg/dL [place] Comment: Testing performed at [facility], [address] [place] [address] Specimen Anatomical Collection Method Collection Time Receive d Time (Source) Location / / Volume Laterality Blood 07/21/2022 10:27 07/21/2022 AM CDT 10:27 AM CDT Deonna Leiva MD LAB BLOOD ORDERABLES Performing Organization Address City/[facility]/[place] Code Phon e Number [address] ALT (07/21/2022 10:27 AM CDT)Only the most recent of11 resultswithin the time period is included. athologist Signature ALT 10 <=33 U/L [place] Comment: Testing performed at [facility], [address] [place] [address] Specimen Anatomical Collection Method Collection Time Receive d Time (Source) Location / / Volume Laterality Blood 07/21/2022 10:27 07/21/2022 AM CDT 10:27 AM CDT Deonna Leiva MD LAB BLOOD ORDERABLES Performing Organization Address City/[facility]/ZIP Code Phon e Number [address] AST (07/21/2022 10:27 AM CDT)Only the most recent of11 resultswithin the time period is included. athologist Signature AST 16 <=32 U/L [place] Comment: Testing performed at [facility], [address] [place] [address] Specimen Anatomical Collection Method Collection Time Receive d Time (Source) Location / / Volume Laterality Blood 07/21/2022 10:27 07/21/2022 AM CDT 10:27 AM CDT Deonna Leiva MD LAB BLOOD ORDERABLES Performing Organization Address City/State/[place] [address] [address] [facility] Magnesium (07/21/2022 10:27 AM CDT)Only the most recent of9 resultswithin the time period is included. athologist Signature Magnesium 1.6 1.6 - 2.6 [place] mg/dL Comment: Testing performed at [facility], [address] [place] [address] Specimen Anatomical Collection Method Collection Time Receive d Time (Source) Location / / Volume Laterality Blood 07/21/2022 10:27 07/21/2022 AM CDT 10:27 AM CDT Deonna Leiva MD LAB BLOOD ORDERABLES Performing Organization Address City/State/ZIP Code Phon e Number [address] Glucose Level (07/21/2022 10:27 AM CDT)Only the most recent of10 resultswithin the time period is included. athologist Signature Glucose Level 95 70 - 99 [place] mg/dL Comment: Effective 04/19/16, the glucose reference intervals have been updated based on [place] [employer] guidelines (Standards of Medical Care in Diabetes 2016. Diabetes Care 2016; 39: S13-S22). Fasting blood glucose: Normal: 70-99 mg/dL Impaired fasting glucose (increased risk for diabetes or pre-diabetes): 100- 125 mg/dL Diabetes mellitus: >/=126 mg/dL Random blood glucose: Normal: 70-199 mg/dL Note: Random glucose >100 mg/dL is assoc iated with increased risk for diabetes Testing performed at [facility], [address] [place], [place] [id number] Specimen Anatomical Collection Method Collection Time Receive d Time (Source) Location / / Volume Laterality Blood 07/21/2022 10:27 07/21/2022 AM CDT 10:27 AM CDT Deonna Leiva MD LAB BLOOD ORDERABLES Performing Organization Address City/[facility]/[place] [address] [place] [address] Calcium Level (07/21/2022 10:27 AM CDT)Only the most recent of10 resultswithin the time period is included. athologist Signature Calcium Lvl 9.7 8.4 - 10.2 [place] mg/dL Comment: Testing performed at [facility], [address] [place] [address] Specimen Anatomical Collection Method Collection Time Receive d Time (Source) Location / / Volume Laterality Blood 07/21/2022 10:07/21/2022 AM CDT 10:27 AM CDT Deonna Leiva MD LAB BLOOD ORDERABLES Performing Organization Address [facility] Phon e Number [place] [phone] [address] [place] [address] Bilirubin, total (07/21/2022 10:27 AM CDT)Only the most recent of9 resultswithin the time period is included. athologist Signature Bili Total 0.7 <=1.2 mg/dL [place] Comment: Indocyanine Green (ICG) may cause falsel y elevated bilirubin results. Total and direct bilirubin must not be measured from samples containing indocyanine green. False elevation of total bilirubin can b e seen in patients with IgG concentrations above 28 g/L. Testing performed at [facility], [address] [place] [address] Specimen Anatomical Collection Method Collection Time Receive d Time (Source) Location / / Volume Laterality Blood 07/21/2022 10:27 07/21/2022 AM CDT 10:27 AM CDT Deonna Leiva MD LAB BLOOD ORDERABLES Performing Organization Address City/[facility]/ZIP Code Phon e Number [place] [phone] [address] [place] [address] Electrolyte Panel (07/21/2022 10:27 AM CDT)Only the most recent of10 results within the time period is included. P athologist Signature Sodium Lvl 137 136 - 145 [place] mEq/L Comment: Testing performed at [facility], [address] [place] [address] Potassium Lvl 4.5 3.5 - 5.1 mEq/L [place] Comment: Testing performed at [facility], [address] [place] [address] Chloride 101 98 - 107 mEq/L [place] Comment: Testing performed at [facility], [address] [place] [address] CO2 27 22 - 29 mEq/L [place] Comment: Testing performed at [facility], [address] [place] [address] Anion Gap 9 4 - 14 mEq/L [place] Comment: Testing performed at [facility], [address] [place] [address] Specimen Anatomical Collection Method Collection Time Receive d Time (Source) Location / / Volume Laterality Blood 07/21/2022 10:27 07/21/2022 AM CDT 10:27 AM CDT Deonna Leiva MD LAB BLOOD ORDERABLES Performing Organization Address City/[facility]/ZIP Code Phon e Number [facility] [place] [phone] [address] [place] [address] EKG, 12-Lead (Scheduled) (07/21/2022)Only the most recent of5 resultswithin the time period is included. Specimen (Source) Anatomical Location Collection Method / Collectio n Time Received Time / Laterality Volume Narrative This result has an attachment that is no t available. eDonna Leiva MD ECG ORDERABLES Performing Organization Address City/State/ZIP Code Phon e Number [facility] I[facility] PETCT Subsequent Treatment Strategy (07/20/2022 10:24 AM CDT) Anatomical Region Laterality Modality Whole Body Positron Emission To mography (PET) Specimen (Source) Anatomical Collection Method Collection Time Re ceived Time Location / / Volume Laterality 07/21/2022 11:49 AM CDT Impressions 07/21/2022 12:05 PM CDT 1. A tiny left anterior pelvic peritoneal implant nodule has slightly decreased in size as compared with previous CT and not FDG avid on the PET. 2. No FDG avid lesion is seen to suggest metabolically active metastases. 3. Resolution of previously seen small a scites in the pelvis. Narrative 07/21/2022 12:05 PM CDT FULL RESULT: Examination: FDG PET/CT, 07/20/2022 10:2 4 AM Clinical History: A 72-year-old female w ith metastatic endometrial serous cystadenocarcinoma, s/p systemic treatment including recent CARBO chemotherapy in 12/2021. Indication: Restaging for subsequent regi atment strategy Comparison: CT CAP exam on 04/20/2022. Technique: F-18 fluorodeoxyglucose (FDG) 11.4 mCi was administered intravenously via left antecubital fossa. To allow for distribution and uptake of radiotracer, the patient was asked to rest quietly for approximately 60-90 minutes. PET/C T imaging was performed from the skull vertex to mid thighs. CT scanning was done for attenuation correction, image registration, and diagnosis with scan paramete rs optimized to minimize radiation expos ure to the patient. SUV measurements are reported as maximum SUV based on body weight unless otherwise specified. Findings: HEAD and NECK: Normal physiologic FDG up take is seen in the brain parenchyma without focal abnormality. No FDG-avid lesion in the Aerodigestive tract. Physiologic oropharyngeal uptake is seen. Heterogen eous FDG uptake is seen in the thyroid g lands, right greater than left, which is not specific and likely chronic inflammation. No obvious FDG avid or pathologically enlarged cervical or supraclavicular node. CHEST: No FDG avid axillary, hilar or me diastinal nodes. No FDG-avid lesion in the lungs. Punctate pulmonary nodules and calcified granuloma are seen stable on CT without suspicious FDG uptake. No pleur al or pericardial effusion. Aortic ather osclerosis seen on CT. No FDG-avid lesion in the chest wall. Physiologic uptake in bilateral breasts without focal lesion. ABDOMEN and PELVIS: As the reference, th e liver parenchyma measures SUV 3.7 on the current PET. The spleen is normal in size and metabolism. Status post cholecystectomy. No FDG avid lesion is seen i n the liver, spleen, pancreas, or bilate ral adrenal glands. Bilateral renal cysts seen stable on the CT without FDG uptake. Physiologic FDG excretion in the kidneys without hydronephrosis. Heterogeneous FDG uptake in the colon is not specific and likely physiologic. No focally FDG-avid lesion in the GI tract. Calcification is seen along the SMA, likely atherosclerosis. No ascites. Status post hysterectomy and bilateral salpingo-oophorectomy. No suspicious FDG uptake is seen along the vaginal cuff. No FDG avid abdominal, retroperitoneal o r pelvic lymph node is seen. A tiny 4mm peritoneal nodule in the right anterior pelvis is seen on CT image #350 without suspicious FDG uptake. No FDG avid peritoneal implant nodule is seen. MUSCULOSKELETAL: No FDG-avid or destruct ines osseous lesion. Multiple degenerative changes are seen in the peripheral joints and multiple levels of thoracolumbar spine. A stable left gluteal subcutaneous soft tissues measuring 3 cm on image #294, likely sebaceous cyst. Procedure Note Malgorzata Smith MD - 07/21/2022 FULL RESULT: Examination: FDG PET/CT, 07/20/2022 10:2 4 AM Clinical History: A 72-year-old female w ith metastatic endometrial serous cystadenocarcinoma, s/p systemic treatment including recent CARBO chemotherapy in 12/2021. Indication: Restaging for subsequent regi atment strategy Comparison: CT CAP exam on 04/20/2022. Technique: F-18 fluorodeoxyglucose (FDG) 11.4 mCi was administered intravenously via left antecubital fossa. To allow for distribution and uptake of radiotracer, the patient was asked to rest quietly for approximately 60-90 minutes. PET/CT imag ing was performed from the skull vertex to mid thighs. CT scanning was done for attenuation correction, image registration, and diagnosis with scan parameters optimized to minimize radiation exposure to the patie nt. SUV measurements are reported as maximum SUV based on body weight unless otherwise specified. Findings: HEAD and NECK: Normal physiologic FDG up take is seen in the brain parenchyma without focal abnormality. No FDG-avid lesion in the Aerodigestive tract. Physiologic oropharyngeal uptake is seen. Heterogeneous FDG uptake is seen in the thyroid glands, right greater than left, which is not specific and likely chronic inflammation. No obvious FDG avid or pathologically enlarged cervical or supraclavicular node. CHEST: No FDG avid axillary, hilar or me diastinal nodes. No FDG-avid lesion in the lungs. Punctate pulmonary nodules and calcified granuloma are seen stable on CT without suspicious FDG uptake. No pleural or pericardial effusion. Aortic atheroscler osis seen on CT. No FDG-avid lesion in the chest wall. Physiologic uptake in bilateral breasts without focal lesion. ABDOMEN and PELVIS: As the reference, th e liver parenchyma measures SUV 3.7 on the current PET. The spleen is normal in size and metabolism. Status post cholecystectomy. No FDG avid lesion is seen in the liver, spleen, pancreas, or bilateral adrenal g lands. Bilateral renal cysts seen stable on the CT without FDG uptake. Physiologic FDG excretion in the kidneys without hydronephrosis. Heterogeneous FDG uptake in the colon is not specific and likely physiologic. No focally FDG-avid lesion in the GI tract. Calcification is seen along the SMA, likely atherosclerosis. No ascites. Status post hysterectomy and bilateral salpingo-oophorectomy. No suspicious FDG uptake is seen along the vaginal cuff. No FDG avid abdominal, retroperitoneal o r pelvic lymph node is seen. A tiny 4mm peritoneal nodule in the right anterior pelvis is seen on CT image #350 without suspicious FDG uptake. No FDG avid peritoneal implant nodule is seen. MUSCULOSKELETAL: No FDG-avid or destruct ines osseous lesion. Multiple degenerative changes are seen in the peripheral joints and multiple levels of thoracolumbar spine. A stable left gluteal subcutaneous soft tissues measuring 3 cm on image #294, likely sebaceous cyst. IMPRESSION: 1. A tiny left anterior pelvic peritonea l implant nodule has slightly decreased in size as compared with previous CT and not FDG avid on the PET. 2. No FDG avid lesion is seen to suggest metabolically active metastases. 3. Resolution of previously seen small a scites in the pelvis. Gabi PÉREZ IMG PETCT ORDERABLES Pain Management Fluoroscopy (06/19/2022 9:08 AM CDT)Only the most recent of2 resultswithin the time period is included. Specimen (Source) Anatomical Location Collection Method / Collectio n Time Received Time / Laterality Volume Narrative Systemgenerated, Documentation - 022 9:08 AM CDT This procedure requires no interpretatio n from the radiologist. Nolberto Israel MD IMG NON DI ORDERABLES CT Chest Abdomen Pelvis with Contrast (04/20/2022 1:27 PM CDT)Only the most recent of3 resultswithin the time period is included. Anatomical Region Laterality Modality Abdomen, Pelvis, Chest Computed Tomograp hy Specimen (Source) Anatomical Collection Method Collection Time Re ceived Time Location / / Volume Laterality 04/20/2022 5:34 PM CDT Addenda Addendum by Anay Fuentes MD on 022 3:43 PM CDT Addendum for correction of typographical error: The left anterior pelvic implant measures 0.7 x 0.5 cm (not 3.5 c m) compared to 1.2 x 1.4 cm previously. Impressions 04/20/2022 6:35 PM CDT 1. Decreased left anterior pelvic implant. 2. New small ascites in the pelvis. Narrative 04/20/2022 6:35 PM CDT Examination: CT CHEST ABDOMEN PELVIS W C ONTRAST, 04/20/2022 1:27 PM Clinical History: Neoplasm, malignant of endometrium Indication: Therapeutic response assessm ent Comparison: CT on 12/30/2021 Technique: CT of the chest, abdomen, and pelvis was performed with intravenous contrast. Findings: Chest: Heart: Heart normal in size. No pericard ial effusion. Lymph nodes: No mediastinal, hilar or ax illary lymphadenopathy. Lungs and pleura: No consolidation, pleu ral effusion or pneumothorax. Abdomen/pelvis: Patient is post hysterectomy and bilater al salpingo-oophorectomy. Decreased left anterior pelvic implant ( 3, image 252) measuring 0.7 x 3.5 cm compared to 1.2 x 1.4 cm previously. New small ascites in the pelvis. Liver, gallbladder, bile ducts: No suspi cious hepatic lesion. No biliary ductal dilatation. Gallbladder is surgically absent. Pancreas: No pancreatic lesion. No pancr eatic duct dilatation. Spleen:Normal in size. No splenic lesion . Adrenals:Unremarkable. No nodule. Kidneys:No hydronephrosis. No suspicious renal mass. Stable bilateral simple renal cysts. Bowel and Mesentery:No bowel wall thicke angel. No bowel obstruction. No mesenteric mass. Lymph Nodes:No retroperitoneal, mesenter ic, pelvic or inguinal lymphadenopathy. Vessels: Stable significant atherosclero tic calcifications of the proximal SMA (3, image 180) likely resulting in >50% stenosis. Bladder:No bladder wall thickening. Musculoskeletal/Soft tissues:No aggressi ve osseous lesion. Multilevel degenerative changes of the lumbar spine. No soft tissue mass. Stable sebaceous cyst in the left back subcutaneous soft tissues measuring 3 cm. Fat-containing umbilical hernia. Procedure Note Anay Fuentes MD - 04/20/2022 Examination: CT CHEST ABDOMEN PELVIS W C ONTRAST, 04/20/2022 1:27 PM Clinical History: Neoplasm, malignant of endometrium Indication: Therapeutic response assessm ent Comparison: CT on 12/30/2021 Technique: CT of the chest, abdomen, and pelvis was performed with intravenous contrast. Findings: Chest: Heart: Heart normal in size. No pericard ial effusion. Lymph nodes: No mediastinal, hilar or ax illary lymphadenopathy. Lungs and pleura: No consolidation, pleu ral effusion or pneumothorax. Abdomen/pelvis: Patient is post hysterectomy and bilater al salpingo-oophorectomy. Decreased left anterior pelvic implant ( 3, image 252) measuring 0.7 x 3.5 cm compared to 1.2 x 1.4 cm previously. New small ascites in the pelvis. Liver, gallbladder, bile ducts: No suspi cious hepatic lesion. No biliary ductal dilatation. Gallbladder is surgically absent. Pancreas: No pancreatic lesion. No pancr eatic duct dilatation. Spleen:Normal in size. No splenic lesion . Adrenals:Unremarkable. No nodule. Kidneys:No hydronephrosis. No suspicious renal mass. Stable bilateral simple renal cysts. Bowel and Mesentery:No bowel wall thicke angel. No bowel obstruction. No mesenteric mass. Lymph Nodes:No retroperitoneal, mesenter ic, pelvic or inguinal lymphadenopathy. Vessels: Stable significant atherosclero tic calcifications of the proximal SMA (3, image 180) likely resulting in >50% stenosis. Bladder:No bladder wall thickening. Musculoskeletal/Soft tissues:No aggressi ve osseous lesion. Multilevel degenerative changes of the lumbar spine. No soft tissue mass. Stable sebaceous cyst in the left back subcutaneous soft tissues measuring 3 cm. Fat-containing umbilical hernia. IMPRESSION: 1. Decreased left anterior pelvic implan t. 2. New small ascites in the pelvis. Gabi PÉREZ Anupama CT ORDERABLES (ABNORMAL) POC Creatinine (04/20/2022 12:39 PM CDT)Only the most recent of3 resultswithin the time period is included. athologist Signature POC Crea 1.0 0.6 - 1.3 POC [facility] mg/dL Comment: Medications, especially hydroxyurea or s upplements, such as ascorbate, can interfere with test results causing a falsely and significantly higher result than expected. If a problem is suspected with a patient's result, a sample should be sent to the laboratory for confirmatory testing. Method description: The i-STAT is an ron lyzer used for in vitro quantification of various analytes in whole blood. The device uses a single disposable cartridge which contains microfabricated sensors, a calibration solution, fluidics system, and a waste chamber. Each test cartridge contains ch emically sensitive biosensors on a silicon chip that are configured to perform specific tests. The microfabricated sensors measure analyte concentration by an electrochemical assay. POC eGFR-AA 66 >=60 mL/min/1.73 m2 POC [facility] [place] Comment: Normal eGFR >= 60 mL/min/1.73 m2 The eGFR is calculated using the CKD-EPI equation. The eGFR declines with age. eGFR <60 mL/min/1.73 m2 is considered as "decreased" This equation should only be used for patients 18 and older. According to the [employer]'s Kidney Disease Outcome Quality Initiative (KDOQI) classification and 2012 Kidney Disease Improving Global Outcomes (KDIGO) Clinical Practice Guideline, the stage of CKD should be categorized based on estimated GFR. Stage Description GFR mL/min/1.73 m2 1 Kidney damage with normal or high GFR >=90 2 Kidney damage with mild decrease in GF R 60-89 3a Mild to moderate decrease in GFR 45-59 3b Moderate to severe decrease in GFR 30-44 4 Severe decrease in GFR 15-29 5 Kidney failure <15 (or dialysis) POC eGFR-EVELINA 57 (L) >=60 mL/min/1.73 m2 POC [facility] Comment: Normal eGFR >= 60 mL/min/1.73 m2 The eGFR is calculated using the CKD-EPI equation. The eGFR declines with age. eGFR <60 mL/min/1.73 m2 is considered as "decreased" This equation should only be used for patients 18 and older. According to the National [employer]'s Kidney Disease Outcome Quality Initiative (KDOQI) classification and 2012 Kidney Disease Improving Global Outcomes (KDIGO) Clinical Practice Guideline, the stage of CKD should be categorized based on estimated GFR. Stage Description GFR mL/min/1.73 m2 1 Kidney damage with normal or high GFR >=90 2 Kidney damage with mild decrease in GF R 60-89 3a Mild to moderate decrease in GFR 45-59 3b Moderate to severe decrease in GFR 30-44 4 Severe decrease in GFR 15-29 5 Kidney failure <15 (or dialysis) POC Clean Dev Yes POC [facility] Performing Lab [facility] [place] POC [facility] Comment: Diagnostic Imaging [facility], [address] [place] [address]; Point of Care Assistant Winemaker: Eli Beard MD Specimen Anatomical Collection Method Collection Time Receive d Time (Source) Location / / Volume Laterality Blood 04/20/2022 12:39 04/20/2022 PM CDT 12:39 PM CDT Gabi PÉREZ POCT ORDERABLES - DEVICE Performing Organization Address City/State/ZIP Code Phon e Number POC [facility] Fractionated Bilirubin (12/30/2021 9:38 AM CDT)Only the most recent of2 results within the time period is included. athologist Signature Bili Total 0.8 <=1.2 mg/dL [facility] Comment: Indocyanine Green (ICG) may cause falsel y elevated bilirubin results. Total and direct bilirubin must not be measured from samples containing indocyanine green. False elevation of total bilirubin can b e seen in patients with IgG concentrations above 28 g/L. Testing performed at [facility], [address] [place] [address] Bili Direct 0.2 <=0.3 mg/dL [facility] Comment: Indocyanine Green (ICG) may cause falsel y elevated bilirubin results. Total and direct bilirubin must not be measured from samples containing indocyanine green. Testing performed at [facility], [address] [place] [address] Bili Indirect 0.6 0.0 - 0.9 mg/dL [facility] Comment: Testing performed at [facility], [address] [place] [address] Specimen Anatomical Collection Method Collection Time Receive d Time (Source) Location / / Volume Laterality Blood 12/30/2021 9:38 AM 04/08/202 2 CDT 11:26 AM CDT Christian Molina PÉREZ LAB BLOOD ORDERABLES Performing Organization Address City/State/[place] [address] [place] [address] Total Protein (12/30/2021 9:38 AM CDT)Only the most recent of2 resultswithin the time period is included. athologist [facility] Total Protein 7.6 6.4 - 8.3 [facility] g/dL [facility] Comment: Testing performed at [facility], [address], [place] [address] Specimen Anatomical Collection Method Collection Time Receive d Time (Source) Location / / Volume Laterality Blood 12/30/2021 9:38 AM 2 CDT 11:26 AM CDT Christian Auguste OR LAB BLOOD ORDERABLES Performing Organization Address City/[facility]/[place] [address] [place] [address] Alkaline Phosphatase (12/30/2021 9:38 AM CDT)Only the most recent of2 results within the time period is included. athologist Signature Alk Phos 86 35 - 104 [facility] U/L [facility] Comment: Testing performed at [facility], [address], [place] [address] Specimen Anatomical Collection Method Collection Time Receive d Time (Source) Location / / Volume Laterality Blood 12/30/2021 9:38 AM 2 CDT 11:26 AM CDT Christian Molina OR LAB BLOOD ORDERABLES Performing Organization Address City/[facility]/[place] [address] [place] [address] Albumin Level (12/30/2021 9:38 AM CDT)Only the most recent of2 resultswithin the time period is included. P athologist Signature Albumin Lvl 4.5 3.5 - 5.2 [facility] [place] gm/dL [facility] Comment: [facility], [address], [place] [address] Specimen Anatomical Collection Method Collection Time Receive d Time (Source) Location / / Volume Laterality Blood 12/30/2021 9:38 AM CDT 11:26 AM CDT Christian PÉREZ LAB BLOOD ORDERABLES Performing Organization Address City/State/[place] [address] [place] [address] US Abdomen Limited (12/30/2021 9:00 AM CDT) Anatomical Region Laterality Modality Abdomen Ultrasound Specimen (Source) Anatomical Collection Method Collection Time Re ceived Time Location / / Volume Laterality 12/30/2021 9:40 AM CDT Impressions 12/30/2021 1:50 PM CDT Liver is unremarkable, no significant in trahepatic bile duct dilation. CBD mildly dilated likely related to prior cholecystectomy. Partially visualized pancreas is unremar kable. Narrative 12/30/2021 1:50 PM CDT Examination: US ABDOMEN [...] MD - 12/30/2021 Examination: US ABDOMEN LIMITED, 9:00 AM Clinical [...] cholecystectomy. Partially visualized pancreas is unremar kable. Christian PÉREZ IMG US ORDERABLES Combined Right and Left Heart Cath (11/28/2021 10:10 AM [facility]) Specimen (Source) Anatomical Location Collection Method / Collectio n Time Received Time / Laterality Volume Narrative This result has an attachment that is no t available. Angel Nash MD CV CARDIAC CATH ORDERABLES (ABNORMAL) POC Oximetry Venous (11/28/2021 9:44 AM [facility]) [facility] Method Time Signature POC O2 65.0 % POC [facility] Saturation,Venous POC Oxyhemoglobin, 63.5 % POC [facility] Venous POC Hemoglobin, total 10.6 (L) 12.0 - POC [facility] OR 16.0 g/dL POC Carboxyhemoglobin 0.5 0.0 - 1.9 POC [facility] OR % POC Methemoglobin 1.9 (H) 0.0 - 1.5 POC [facility] % Comment: Method description: The ABL80 FLEX CO-OX OSM analyzer is a portable, automated analyzer that measures oxygen saturation (sO2), concentration of total hemoglobin (ctHb), fraction of oxygenated hemoglobin in total hemoglobin (FO2Hb), fraction of methemoglobin in total hemoglobin (FMetH b), and fraction of carboxyhemoglobin in total hemoglobin (FCOHb) co-oximetry parameters in whole blood. The analyzer uses spectrophotometry to perform quantitati ve measurement of the parameters listed from a 65l sample. POC OX Draw Site R atrium POC [facility] Performing Lab [facility] POC [facility] R Comment: [facility], [address] [place], [place] [id number]; Lab Direct or: Arlene Navarro MD Specimen Anatomical Collection Method Collection Time Receive d Time (Source) Location / / Volume Laterality Blood 11/28/2021 9:44 AM 9:44 [facility] Angel Nash MD POINT OF CARE TEST ORDERABLE S Performing Organization Address City/State/ZIP Code Phon e Number POC TELCOR (ABNORMAL) POC Oximetry Arterial (11/28/2021 9:35 AM [facility]) [facility] Method Time Signature POC O2 Saturation, 100.0 (H) 95.0 - POC TELCOR Arterial 99.0 % POC Oxyhemoglobin, 98.8 (H) 94.0 - POC TELCOR Arterial 98.0 % POC Hemoglobin, total 10.5 (L) 12.0 - POC TELC OR 16.0 g/dL POC Carboxyhemoglobin <0.2 0.0 - 1.9 POC TELC OR % POC Methemoglobin 1.8 (H) 0.0 - 1.5 POC TELCOR % Comment: Method description: The ABL80 FLEX CO-OX OSM analyzer is a portable, automated analyzer that measures oxygen saturation (sO2), concentration of total hemoglobin (ctHb), fraction of oxygenated hemoglobin in total hemoglobin (FO2Hb), fraction of methemoglobin in total hemoglobin (FMetH b), and fraction of carboxyhemoglobin in total hemoglobin (FCOHb) co-oximetry parameters in whole blood. The analyzer uses spectrophotometry to perform quantitati ve measurement of the parameters listed from a 65l sample. POC OX Draw Site Aorta POC TELCOR Performing Lab [facility] POC TELCO R Comment: [facility] Clinical Lab, [address] [place] [id number]; Lab Direct or: Arlene Navarro MD Specimen Anatomical Collection Method Collection Time Receive d Time (Source) Location / / Volume Laterality Blood 11/28/2021 9:35 AM 9:35 [facility] Angel Nash MD POINT OF CARE TEST ORDERABLE S Performing Organization Address City/State/ZIP Code Phon e Number POC TELCOR (ABNORMAL) POC Glucose Screen (11/28/2021 8:47 AM [facility]) P athologist Signature POC Glucose 102 (H) 70 - 99 POC TELCOR mg/dL Comment: RN Notified Capillary blood samples, e.g. obtained b y fingerstick, may have inaccurate results in patients with decreased peripheral blood flow. Method description: All results are arlin ured using Electrochemistry test methodology. The glucose in the sample mixes with the reagents on the test strip. The reaction produces an electric current. The amount of current produced is proportion al to the glucose concentration in the blood. PO Sample Type Capillary POC TELCOR Performing Lab [facility] POC TELCO R Comment: [facility] Clinical Lab, [address] [place] [address]; Lab Direct or: Arlene Navarro MD Specimen Anatomical Collection Method Collection Time Receive d Time (Source) Location / / Volume Laterality Blood 11/28/2021 8:47 AM 8:47 [facility] Angel Nash MD POCT ORDERABLES - DEVICE Performing Organization Address City/[facility]/ZIP Code Phon e Number POC TELCOR Clot Expiration Date (11/28/2021 7:41 AM [facility])Only the most recent of3 results within the time period is included. [facility] Method Time Signature T & S 12/01/2021 [facility] Specimen Anatomical Collection Method Collection Time Receive d Time (Source) Location / / Volume Laterality Blood 11/28/2021 7:41 AM 8:29 [facility] Star Treviño MD BLOOD BANK TEST ORDERABLES Performing Organization Address City/[facility]/ZIP [facility] Phon e Number [facility] CANCER Unless otherwise noted, [address] all lab tests performed by: Division of Pathology and Laboratory Medicine [address] [place] [address] TMP Interpretation Antibody Screen Negative (11/28/2021 7:41 AM [facility])Only the most recent of3 resultswithin the time period is included. [facility] gist Method Time Signature TMP Auto Neg At the [place] MD ABSC Interp [facility] CENTER patient plasma shows no evidence of RBC alloantibodi es. Comment: JESSI NEWMAN MD, PhD - [id number] Dictated by: JESSI NEWMAN MD, Ph D - [id number] Dictated Date/Time: 11.28.2021 11:46 AM [facility] Transcribed Date/Time: 11.28.2021 11:46 AM [facility] Electronically Signed By: JESSI NEWMAN MD, PhD - [id number] on 11.28.2021 11:46 AM Specimen Anatomical Collection Method Collection Time Receive d Time (Source) Location / / Volume Laterality Blood 11/28/2021 7:41 AM 2 8:29 [facility] Star Treviño MD BLOOD BANK TEST ORDERABLES Performing Organization Address City/State/[facility] Phon e Number [facility] CANCER Unless otherwise noted, [address] all lab tests performed by: Division of Pathology and Laboratory Medicine [address] [place] [address] ABOR (11/28/2021 7:41 AM [facility])Only the most recent of3 resultswithin the time period is included. P athologist Signature ABORh. O POS [facility] Specimen Anatomical Collection Method Collection Time Receive d Time (Source) Location / / Volume Laterality Blood 11/28/2021 7:41 AM 2 8:29 [facility] Star Treviño MD BLOOD BANK TEST ORDERABLES Performing Organization Address City/[facility] Phon e Number [facility] CANCER Unless otherwise noted, [address] all lab tests performed by: Division of Pathology and Laboratory Medicine [address] [place] [address] Antibody Screen (11/28/2021 7:41 AM [facility])Only the most recent of3 resultswithin the time period is included. P athologist Signature ABSC. Negative ABSC [facility] Specimen Anatomical Collection Method Collection Time Receive d Time (Source) Location / / Volume Laterality Blood 11/28/2021 7:41 AM 8:29 [facility] AM [facility] Star Treviño MD BLOOD BANK TEST ORDERABLES Performing Organization Address City/State/ZIP Code Phon e Number [facility] CANCER Unless otherwise noted, [place] [address] CENTER all lab tests performed by: Division of Pathology and Laboratory Medicine [address] [facility] Echocardiogram 2D Complete (11/21/2021 7:51 AM [facility]) Specimen (Source) Anatomical Collection Method Collection Time Re ceived Time Location / / Volume Laterality 11/21/2021 7:28 AM [facility] Narrative ISCV - 11/21/2021 10:27 AM [facility] Echocardiographic Report Interpretation Summary A complete two-dimensional [...] P.6 mmHg Ao V2 VTI: 18.7 cm JONY(I,D): 2.3 cm2 JONY(V,D): 2.2 cm2 LV V1 max P.9 mmHg MR max cassidy: 412.4 cm/sec LV V1 mean P.4 mmHg LV V1 max: 85.4 cm/sec LV V1 mean: 54.4 cm/sec LV V1 VTI: 13.4 cm SV(LVOT): 42.3 ml TR max cassidy: 272.6 cm/sec TR max P.7 mmHg RVSP(TR): 44.7 mmHg RAP systole: 15.0 mmHg JONY Index (I,D): 1.1 JONY Index (V,D): 1.1 Dimensionless Index: 0.70 23 [...] Interpret 1 - Normal Hypokinetic 3 - Amos netic 4 - Dyskinetic3-5 moderate 5 - Aneurysmal [...] EDV(MOD-A2C): 134.8 ml ESV(MOD-A2C): 97.5 ml EDV(MOD-bp): 1 27.8 ml EF(MOD-A2C): 27.7 % ESV(MOD-bp): 98. 9 ml EF(MOD-bp): 22.6 % LAV(MOD-A2C): 61.8 ml EDV (MOD-bp) I ndex: 63.1 ml/m2 LAV(MOD-A4C): 58.1 ml LAV(MOD-bp): 65.0 ml LAV(MOD-bp) Indexed: 32.1 ml/m2 ESV (MOD-bp) Index: 48.9 ml/m2 RWT: 0 .39 cm TAPSE (>1.6): 1.9 cm Doppler Measurements MV E max cassidy: 111.4 cm/sec MV V2 max : 113.9 cm/sec MV max P.2 mmHg MV V2 mean: 68.2 cm/sec MV mean P.2 mmHg MV V2 VTI: 10.9 cm MVA(VTI): 3.9 cm2 MV dec time: 0.12 sec Ao V2 max: 122 .5 cm/sec Ao max P.0 mmHg Ao V2 mean: 72.9 cm/sec Ao mean P.6 mmHg Ao V2 VTI: 18.7 cm JONY(I,D): 2.3 cm2 JONY(V,D): 2.2 cm2 LV V1 max P.9 mmHg MR max cassidy: 4 12.4 cm/sec LV V1 mean P.4 mmHg LV V1 max: 85.4 cm/sec LV V1 mean: 54.4 cm/sec LV V1 VTI: 13.4 cm SV(LVOT): 42.3 ml TR max cassidy: 272.6 cm/sec TR max P.7 mmHg RVSP(TR): 44.7 mmHg RAP systole: 15.0 mmHg JONY Index (I, D): 1.1 JONY Index (V,D): 1.1 Dimensionless I ndex: 0.70 23 Angel Nash MD CV ECHO ORDERABLES Performing Organization Address City/State/ZIP Code Phon e Number ISCV General Laboratory Add-On Test (11/18/2021 1:50 PM [facility]) P athologist Signature Ordered Test Added [facility] Test Needed TSH, Free [facility] Specimen Anatomical Collection Method Collection Time Receive d Time (Source) Location / / Volume Laterality Existing 11/18/2021 1:50 PM 2 1:51 [facility] PM [facility] Susan Baird MD LAB BLOOD ORDERABLES Performing Organization Address City/State/ZIP Code Phon e Number [facility] CANCER Unless otherwise noted, [place] [address] CENTER all lab tests performed by: Division of Pathology and Laboratory Medicine [address] [place] COVID-19 (SARS-CoV-2) PCR-Asymptomatic (11/18/2021 12:07 PM [facility])Only the most recent of2 resultswithin the time period is included. [facility] Method Time Signature COVID19 (SARS Not Detected Not Detected [place] CoV-2) [facility] Comment: This test is a qualitative reverse-trans criptase polymerase chain reaction (RT- PCR) developed for the [employer] system and intended for qualitative detection of SARS CoV-2 RNA in nasopharyngeal a nd oropharyngeal swab specimens collecte d from any individuals, including those suspected o f COVID-19 by their healthcare provider, and those without symptoms or other reasons to suspect COVID-19. A fact sheet for patients provided by the working second hand ( [employer]) can be rev iewed at: https://www.fda.gov/media/187782/downloa d. A fact sheet for Health Care providers is provided by the working second hand ([employer]) and can be reviewed at: https://www.fda.gov/media/410413/download Results must be interpreted within the c ontext of all relevant clinical and laboratory findings and should not form the sole basis for a diagnosis or treatment decision. Positive results do not rule out bacterial infection or co- infection with other viruses. Negative results do not rule ou t SARS-CoV-2 and must be combined with clinical observations, patient history, and/or epidemiological information. "Presumptive Positive" results are due t o partial amplification of SARS-CoV-2 targets and indicates low amounts of virus present in the specimen at or near the limit of detection. Regardless, individuals with "Presumptive Positive" results should be managed per institutional guidelines as individuals positive for SARS-CoV-2 virus, including use of appropriate infection control protocols. Internal controls are included to assess for possible amplification inhibitors. If inhibition is detected, testing is repeated and if inhibition is confirmed the specimen is resulted as "Invalid". When an "Invalid" result occurs, it is recomm ended to wait 3 days before submitting a new spec imen for testing if clinically indicated. This assay has been approved by the FDA for use only under Emergency Use Authorization (EUA) in laboratories that have been CLIA-certified to perform moderate-complexity and high-complexity tests. The performance characteristics of this assay were verified by the Microbiology Laboratory at [facility], CLIA Accreditation #: [id number] and CAP Accreditation #: [id number]. COVID19 SARS Source [employer] Swab [place] MD [facility] COVID19 SARS Indication Pre-OR Procedure [facility] Specimen (Source) Anatomical Collection Method Collection Time Re ceived Time Location / / Volume Laterality Nasopharyngeal Swab 11/18/2021 12:07 10/26 PM [facility] 2:59 PM [facility] Deonna Leiva MD MICROBIOLOGY - GENERAL ORDER JAHAIAR Performing Organization Address City/State/ZIP Code Phon e Number [facility] Unless otherwise noted, [place], [place] [id number] [place] [address] all lab tests performed by: Division of Pathology and Laboratory Medicine [facility] [place] (ABNORMAL) Urinalysis with Microscopic (11/18/2021 11:36 AM [facility]) P athologist Signature UA WBC 3 (H) 0 - 2 /HPF [facility] UA RBC <1 0 - 2 /HPF [facility] UA Mucous NOT SEEN Not [facility] Seen-Trace [facility] /[facility] UA Bacteria NOT SEEN NOT SEEN [facility] UA Squam Epi OCC None-Occas [facility] ional /[facility] UA Trans Epi OCC (A) NOT SEEN [facility] Specimen Anatomical Collection Method Collection Time Receive d Time (Source) Location / / Volume Laterality Urine 11/18/2021 11:36 11/18/2021 AM [facility] 11:51 AM [facility] Narrative [facility] - 12:41 PM [facility] Some reporting parameters within the Urinalysis test have changed due to the implementation of new in strumentation in the [facility], allowi ng greater sensitivity of measurement. Urinalysis results reported by the [facility] using existing instrumentation, as well as Urinalysis t esting performed manually or by backup methodology at the [facility] [place] will remain relatively unchanged. New reporting parameters and units will now be reported for all campuses. Deonna Leiva MD URINE ORDERABLES Performing Organization Address City/[facility]/ZIP Code Phon e Number [facility] CANCER Unless otherwise noted, [address] all lab tests performed by: Division of Pathology and Laboratory Medicine [address] [place] [address] (ABNORMAL) Urinalysis w/Microscopic if Indicated (11/18/2021 11:36 AM [facility]) [facility] gist Method Time Signature UA Color Yellow Straw-Yel [facility] UA Appear Clear Clear [facility] UA Glucose NEG NEG mg/dL [facility] UA Bili NEG NEG [facility] UA Ketones NEG NEG mg/dL [facility] UA Spec Grav 1.025 1.003 - [facility] 1.035 [facility] UA Blood Small (A) NEG [facility] UA pH 5.0 5.0 - 9.0 [facility] UA Protein 30 (A) NEG mg/dL [facility] UA Urobilinogen NEG NEG [facility] UA Nitrite NEG NEG [facility] UA Leuk Est Trace (A) NEG [facility] Specimen Anatomical Collection Method Collection Time Receive d Time (Source) Location / / Volume Laterality Urine 11/18/2021 11:36 11/18/2021 AM [facility] 11:51 AM [facility] Deonna Leiva MD URINE ORDERABLES Performing Organization Address City/[facility]/ZIP Code Phon e Number [facility] Unless otherwise noted, [address] all lab tests performed by: Division of Pathology and Laboratory Medicine [address] [place] [address] (ABNORMAL) Urine Culture (11/18/2021 11:36 AM [facility]) Component Value Ref Test Analysis Performed At [facility] Range Method Time Signature Final Report 10 - 50,000 cfu/ml Enterococcus faecalis [place] ... ALLIE <10,000 cfu/ml Normal site von present. CANCER (A) [place] Path Review - The results have been review ed and electronically signed by Pathologist: [place] Urine CHRISTAL BOURNE MD #[id number] A NDERSON (A) [facility] Organism Enterococcus [place] faecalis (A) [facility] Specimen Anatomical Collection Method Collection Time Receive d Time (Source) Location / / Volume Laterality Urine, Clean 11/18/2021 11:36 11/18/2021 Catch AM [facility] 12:41 PM [facility] Organism Antibiotic Method Susceptibility Enterococcus faecalis *ROSEMARY expressed in MINIMUM INHIBITORY ROSEMARY: MINT mcg/mL CONCENTRATION Enterococcus faecalis Ampicillin MINIMUM INHIBITORY <=2: Cage sceptible CONCENTRATION Enterococcus faecalis Vancomycin MINIMUM INHIBITORY 1: Susc eptible CONCENTRATION Enterococcus faecalis Nitrofurantoin MINIMUM INHIBITORY <=16: S usceptible [facility] Deonna Leiva MD MICROBIOLOGY - GENERAL ORDER JAHAIRA Performing Organization Address City/[facility] Phon e Number [facility] CANCER Unless otherwise noted, [address] all lab tests performed by: Division of Pathology and Laboratory Medicine [address] [place] [address] aPTT (11/18/2021 11:23 AM [facility]) athologist Signature aPTT 35.9 24.7 - 36.8 [facility] Specimen Anatomical Collection Method Collection Time Receive d Time (Source) Location / / Volume Laterality Blood 11/18/2021 11:23 11/18/2021 AM [facility] 11:44 AM [facility] Narrative [facility] - 12:18 PM [facility] This lab cannot be scheduled at the [facility] locations due to collection/proccessing restrictions: [facility] and [facility]. Deonna Leiva MD LAB BLOOD ORDERABLES Performing Organization Address [facility] Phon e Number [facility] Unless otherwise noted, [address] all lab tests performed by: Division of Pathology and Laboratory Medicine [address] [place], [place] [address] (ABNORMAL) Prothrombin Time with INR (11/18/2021 11:23 AM [facility])Only the most recent of2 resultswithin the time period is included. P athologist Signature PT 14.2 (H) 11.5 - 13.9 [facility] INR 1.17 (H) 0.90 - 1.10 [facility] Specimen Anatomical Collection Method Collection Time Receive d Time (Source) Location / / Volume Laterality Blood 11/18/2021 11:23 11/18/2021 AM [facility] 11:44 AM [facility] Narrative [facility] - 12:18 PM [facility] This lab cannot be scheduled at the [facility] locations due to collection/proccessing restrictions: [facility] and [facility]. Deonna Leiva MD LAB BLOOD ORDERABLES Performing Organization Address City/State/ZIP Code Phon e Number [facility] CANCER Unless otherwise noted, [address] all lab tests performed by: Division of Pathology and Laboratory Medicine [address] [place], [place] [address] TSH (11/18/2021 11:23 AM [facility]) athologist Signature TSH 2.77 0.27 - 4.20 [facility] mcunit/mL [facility] Specimen Anatomical Collection Method Collection Time Receive d Time (Source) Location / / Volume Laterality Blood 11/18/2021 11:23 11/18/2021 2:29 AM [facility] PM [facility] Deonna Leiva MD LAB BLOOD ORDERABLES Performing Organization Address City/[facility]/ZIP Code Phon e Number [facility] Unless otherwise noted, [address] all lab tests performed by: Division of Pathology and Laboratory Medicine [facility] [place] Free T4 (11/18/2021 11:23 AM [facility]) athologist Signature T4 Free 1.57 0.93 - 1.70 [facility] ng/dL [facility] Specimen Anatomical Collection Method Collection Time Receive d Time (Source) Location / / Volume Laterality Blood 11/18/2021 11:23 11/18/2021 2:29 AM [facility] PM [facility] Deonna Leiva MD LAB BLOOD ORDERABLES Performing Organization Address City/State/ZIP Code Phon e Number [facility] CANCER Unless otherwise noted, [address] all lab tests performed by: Division of Pathology and Laboratory Medicine [facility] [address] [place] Hemoglobin A1c (11/18/2021 11:15 AM [facility]) athologist Signature A1C 5.6 4.3 - 5.6 % [facility] Comment: HbA1c values >=6.5% are diagnostic of di abetes mellitus. Diagnosis should be confirmed by repeat testing. Therapeutic Action suggested: >8.0% HbA1 c; Goal of therapy: <7.0% HbA1c Specimen Anatomical Collection Method Collection Time Receive d Time (Source) Location / / Volume Laterality Blood 11/18/2021 11:15 11/18/2021 AM [facility] 12:01 PM [facility] Deonna Leiva MD LAB BLOOD ORDERABLES Performing Organization Address City/State/ZIP Code Phon e Number [facility] CANCER Unless otherwise noted, [place] [address] CENTER all lab tests performed by: Division of Pathology and Laboratory Medicine [address] [facility] (ABNORMAL) US Chest for Breast Ultrasound (Add-on Only) (11/04/2021 1:27 PM [facility]) Anatomical Region Laterality Modality Chest Ultrasound Specimen (Source) Anatomical Collection Method Collection Time Re ceived Time Location / / Volume Laterality 11/04/2021 1:45 PM [facility] Impressions 11/04/2021 1:45 PM [facility] No mammographic evidence of malignancy. A benign [...] Incomplete: Needs Additional Imaging Eunice luation Narrative 11/04/2021 1:45 PM [facility] EXAMINATIONS: BILATERAL WHOLE-BREAST ULTRASOUND, COMPL ETE. ULTRASOUND [...] 4 quadrants and retroareolar region) was performed. Real -time sonographic imaging of bilateral regional leo basins [...] No suspicious find ings are seen. BILATERAL ELO BASIN ULTRASOUND: No adenopathy. I notified the [...] 0: Incomplete: Needs Additional Imaging Eunice luation Christian GARCIA US ORDERABLES (ABNORMAL) US Breast Complete - Bilateral (11/04/2021 1:27 PM [facility]) Anatomical Region Laterality Modality Breast Bilateral Ultrasound Specimen (Source) Anatomical Collection Method Collection Time Re ceived Time Location / / Volume Laterality 11/04/2021 1:45 PM [facility] Impressions 11/04/2021 1:45 PM [facility] No mammographic evidence of malignancy. A benign [...] Incomplete: Needs Additional Imaging Eunice luation Narrative 11/04/2021 1:45 PM [facility] EXAMINATIONS: BILATERAL WHOLE-BREAST ULTRASOUND, COMPL ETE. ULTRASOUND [...] 4 quadrants and retroareolar region) was performed. Real -time sonographic imaging of bilateral regional leo basins [...] 0: Incomplete: Needs Additional Imaging Eunice luation Christian PÉREZ IMG US ORDERABLES Mammography Digital Diagnostic Bilateral with Abdelrahman (11/04/2021 12:27 PM [facility]) Anatomical Region Laterality Modality Breast Bilateral Mammography Specimen (Source) Anatomical Collection Method Collection Time Re ceived Time Location / / Volume Laterality 11/07/2021 9:52 AM [facility] Addenda Addendum by Harvinder Mark MD on 11/18/19 4:15 PM [facility] ADDENDED REPORT ----- 11/18/2021 Addendum: The report [...] recommended. BI-RADS Category 2: Benign Finding(s) Impressions 11/07/2021 9:52 AM [facility] No mammographic evidence of malignancy. A benign [...] Incomplete: Needs Additional Imaging Eunice luation Narrative 11/07/2021 9:52 AM [facility] CLINICAL INDICATION: Abnormal screening mammogram. MAMMO DIGITAL [...] 0: Incomplete: Needs Additional Imaging Eunice luation Christian PÉREZ IMG MAMMOGRAPHY ORDERABLES Microsatellite Instability (MSI) Analysis Interpretation and Report (10/26/2021 7:03 PM [facility]) Specimen (Source) Anatomical Collection Method Collection Time Re ceived Time Location / / Volume Laterality 10/26/2021 7:03 PM [facility] Narrative This result has an attachment that is no t available. Deonna Leiva MD, [facility] (HUSSEIN VUONG) IR CT GUIDED BIOPSY PELVIC NON-BONE (10/25/2021 1:03 PM [facility]) Anatomical Region Laterality Modality Abdomen/Pelvis Computed Tomography Specimen (Source) Anatomical Location Collection Method / Collectio n Time Received Time / Laterality Volume Narrative 10/25/2021 1:08 PM [facility] Date of Procedure: 10/25/21 Attending Physician: Fermin Marion i, MD Silver Lap Machine Tender: None Pre Procedure Diagnosis: Neoplasm, mal ignant [...] No follow-up with Interventional Radi ology required. Deonna Leiva MD IMG IR ORDERABLES (ABNORMAL) Cytology Image-Guided FNA Interpretation (10/25/2021 12:08 PM [facility]) Component Value Ref Test Analysis Performed Pathologis t Range Method Time At Signature Gross A: 10/27/2021 [facility] Description Specimens procured: 6:43 PM 3 Diff Quik; 3 Pap Stain Slides [facility] 10 ml, slightly cloudy bloody fluid in RPMI 1 Cell Block Date/Time Placed in Formalin: 10/25/21 1:09 PM Size: 1.0 cm Immediate assessment for specimen adequacy was made x1 by Dr Emeli Maria. Immediate Adequate 10/27/2021 [facility] Assessment cellularity, 6:43 PM favor malignant [facility] Major MALIGNANT (A) 10/27/2021 [facility] Giuliana ctronically Classification 6:43 PM heidi d by Diamante Maria MD on 10/27/2021 a t 6:42 PM Diagnosis A. Soft tissue, left pelvic, fine needle aspiration: 10/27/2021 [facility] Electronically 6:43 PM signed by Diamante Burnett HIGH GRADE CARCINOMA CONSIST ENT WITH PATIENT'S HISTORY OF [facility] (see comment) SAMARA Maria MD on 10/27/2021 a t 6:42 PM Comment Immunostains performed on th e cell block sections show that the tumor cells are positive for PAX-8, WT-1 (focal), p53 (diffuse) and ER (30% of tumor cell nuclei). These findings are in keeping with the patient's known history of serous carcinoma. 10/27/2021 [facility] The cell block preparation was contributory towards th e above diagnosis. 6:43 PM A concurrent core needle biopsy ([id number]) is also available . [facility] Retained/Biomark SR:7S, 2CB, 4IP 10/27/2021 [facility] er Testing MDL CB:50-300 6:43 PM MDL Pap:3S [facility] MDL DQ:1S MDL FISH:1S Informational Some tests 10/27/2021 [facility] Points reported here may 6:43 PM have been [facility] developed and performance characteristics determined by [facility]. These tests have not been specifically cleared or approved by the U.S. Food and Drug Administration. This case originated at [facility], [address] [place], [place] [address]. Specimen Anatomical Collection Method Collection Time Receive d Time (Source) Location / / Volume Laterality Fine Needle Asp 10/25/2021 12:08 10/25/19 22 (Pelvis, Left) PM [facility] 12:42 PM [facility] Deonna Leiva MD LAB CYTOLOGY ORDERABLES Performing Organization Address City/State/ZIP Code Phon e Number [facility] [place] [address] [address] [facility] Pathology Biopsy Interpretation (10/25/2021 12:07 PM [facility])Only the most recent of 2 resultswithin the time period is included. 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 (SEE COMMENT) 6:21 PM signed by [facility] Adrian villegas BCL/DARIEL Wadsworth MD on 10/27/2021 a t 6:21 PM Comment Immunohistochemical 10/27/2021 [facility] BS stains are performed 6:21 PM and show the [facility] neoplastic cells to be positive for cytokeratin 7 (patchy), PAX-8, p16 (strong, diffuse), p53 (aberrant over-expression), ER (80%, moderate), and VA (95%, moderate to strong). The histologic and immunohistochemical findings are in keeping with the above diagnosis. Gross A: 10/27/2021 [facility] Description Left pelvic soft tissue nodu le biopsy with biomarkers: Multiple nicole- white core biopsies measuring 1.4 x 0.5 x 0.1 cm in aggregate, entirely submitted in A1. GM 6:21 PM [facility] Biomarker T: A1 10/27/2021 [facility] Block(s) N: N/A 6:21 PM [facility] Disclaimer "Some tests reported 10/27/2021 [facility] here may have been 6:21 PM developed and [facility] performance characteristics determined by [facility]. These tests have not been specifically cleared or approved by the U.S. Food and Drug Administration. If applicable, controls were reviewed and showed appropriate reactivity." Specimen Anatomical Collection Method Collection Time Receive d Time (Source) Location / / Volume Laterality Tissue (Pelvis, 10/25/2021 12:07 10/26/19 22 8:35 Left) PM [facility] AM [facility] Deonna Leiva MD LAB PATHOLOGY ORDERABLES Performing Organization Address City/State/ZIP Code Phon [place] [address] [address] EKG, 12-Lead (Portable) (10/25/2021) Specimen (Source) Anatomical Location Collection Method / Collectio n Time Received Time / Laterality Volume Narrative This result has an attachment that is no t available. Genaro PÉREZ ECG ORDERABLES Performing Organization Address City/[facility]/ZIP Code Phon e Number MAYRA IECG Glucose, Random (10/24/2021 9:56 AM [facility]) athologist Signature Glucose Random 108 70 - 199 [facility] mg/dL [facility] Comment: Effective 04/19/16, the glucose reference intervals have been updated based on [place] [employer] guidelines (Standards of Medical Care in Diabetes 2016. Diabetes Care 2016; 39: S13-S22) Fasting blood glucose: Normal: 70-99 mg/dL Impaired fasting glucose (increased risk for diabetes or pre-diabetes): 100-125 mg/dL Diabetes mellitus: >/= 126 mg/dL Random blood glucose: Normal: 70-199 mg/dL Note: Random glucose >100 mg/dL is assoc iated with increased risk for diabetes Testing performed at [facility], [address], [place] [address] Specimen Anatomical Collection Method Collection Time Receive d Time (Source) Location / / Volume Laterality Blood 10/24/2021 9:56 AM 2 [facility] 10:09 AM [facility] Gela PÉREZ LAB BLOOD ORDERABLES Performing Organization Address City/[facility]/[place] [phone] [place] [address] Anion Gap (10/24/2021 9:56 AM [facility]) athologist Signature Anion Gap 7 4 - 14 [facility] mEq/L [facility] Comment: Testing performed at [facility], [address], [place] [address] Specimen Anatomical Collection Method Collection Time Receive d Time (Source) Location / / Volume Laterality Blood 10/24/2021 9:56 AM 2 [facility] 10:09 AM [facility] Gela Maguire PA LAB BLOOD ORDERABLES Performing Organization Address City/State/[place] [phone] [place] [address] Sodium Level (10/24/2021 9:56 AM [facility]) P athologist Signature Sodium Lvl 140 136 - 145 [facility] mEq/L [facility] Comment: Testing performed at [facility], [address], [place] [address] Specimen Anatomical Collection Method Collection Time Receive d Time (Source) Location / / Volume Laterality Blood 10/24/2021 9:56 AM 2 [facility] 10:09 AM [facility] Gela Maguire PA LAB BLOOD ORDERABLES Performing Organization Address City/State/[place] [phone] [place] [address] Potassium (10/24/2021 9:56 AM [facility]) athologist Signature Potassium Lvl 3.8 3.5 - 5.1 [facility] mEq/L [facility] Comment: Testing performed at [facility], [address], [place] [address] Specimen Anatomical Collection Method Collection Time Receive d Time (Source) Location / / Volume Laterality Blood 10/24/2021 9:56 AM 2 [facility] 10:09 AM [facility] Gela Maguire PA LAB BLOOD ORDERABLES Performing Organization Address City/State/[place] [phone] [place] [address] (ABNORMAL) Chloride Level (10/24/2021 9:56 AM [facility]) P athologist Signature Chloride 108 (H) 98 - 107 [facility] mEq/L [facility] Comment: Testing performed at [facility], [address], [place] [address] Specimen Anatomical Collection Method Collection Time Receive d Time (Source) Location / / Volume Laterality Blood 10/24/2021 9:56 AM 2 [facility] 10:09 AM [facility] Gela PÉREZ LAB BLOOD ORDERABLES Performing Organization Address City/[facility]/[place] [phone] [place] [address] Carbon Dioxide Level (10/24/2021 9:56 AM [facility]) athologist Signature CO2 25 22 - 29 [facility] mEq/L [facility] Comment: Testing performed at [facility], [address], [place] [address] Specimen Anatomical Collection Method Collection Time Receive d Time (Source) Location / / Volume Laterality Blood 10/24/2021 9:56 AM 2 [facility] 10:09 AM [facility] Gela PÉREZ LAB BLOOD ORDERABLES Performing Organization Address City/[facility]/[place] [phone] [place] [address] MSI by PCR Material Request (10/16/2021 4:50 PM [facility]) [facility] gist Method Time Signature Archived Previously 10/25/2021 [facility] Material diagnosed 1:36 PM [facility] tissues from [id number] were selected for molecular analysis. Results will be reported separately. Specimen Anatomical Collection Method Collection Time Receive d Time (Source) Location / / Volume Laterality Tissue 10/16/2021 4:50 PM 2 4:50 [facility] PM [facility] Deonna Leiva MD, MDA IP AP BIOMARKERS Performing Organization Address City/State/ZIP Code Phon [place] [address] [address] IHC MSI (MLH1, MSH2, MSH6, PMS2) Material Request (10/16/2021 4:50 PM [facility]) Specimen Anatomical Collection Method Collection Time Receive d Time (Source) Location / / Volume Laterality Tissue 10/16/2021 4:50 PM 2 4:50 [facility] PM [facility] Deonna Leiva MD, MDA IP AP BIOMARKERS Performing Organization Address [facility]/ZIP Code Phon e Number [facility] [place] [address] [address] IHC HER2/laura Material Request (10/16/2021 4:50 PM [facility]) Specimen Anatomical Collection Method Collection Time Receive d Time (Source) Location / / Volume Laterality Tissue 10/16/2021 4:50 PM 2 4:50 [facility] PM [facility] Deonna Leiva MD, MDA IP AP BIOMARKERS Performing Organization Address [facility]/State/ZIP Code Phon e Number [facility] [place] [address] [address] OSI Mammo (10/07/2021 4:29 PM [facility]) Specimen (Source) Anatomical Location Collection Method / Collectio n Time Received Time / Laterality Volume Narrative [facility] - 10/28/2021 4:29 PM [facility] Study acquired at another institution. For comparison only. No MD Donaldson originated interpretation requested or a vailable. Mateo Chavez MD IMG OUTSIDE IMAGE ORDERAB LES Performing Organization Address [facility]/ZIP Code Phon e Number [facility] OSI Bone Density Study (10/07/2021 4:29 PM [facility]) Specimen (Source) Anatomical Location Collection Method / Collectio n Time Received Time / Laterality Volume Narrative Systemgenerated, Documentation - 022 4:29 PM [facility] Study acquired at another institution. For comparison only. No MD Donaldson originated interpretation requested or a vailable. Mateo Chavez MD IMG OUTSIDE IMAGE ORDERAB LES after 08/31/2021 Insurance Payer Benefit Plan / Subscriber ID Effective Dates Phone Addre ss Type Group [employer] MEDICARE AETNA MEDICARE [id number] 2019-Presen [address] [place] [address] Advance Directives Code Status Date Activated Date Inactivated Comments Full Code 11/28/2016 11:38 AM 11/29/2016 1:23 PM Care Teams Market Research Interviewer Relationship Specialty Start Date End Date Deonna Leiva, PCP - General Gynecologic Medical 10/30/16 MD Oncology [address] [place] [address] Denzel Pritchett PCP - External Obstetrics/Gynecology 10/30/16 "MD Eli Referring Mateo Chavez PCP - External Primary Internal Medicine 11/08/16 MD Malena Care Provider [address] [place] [address] [phone] David Dobson Consulting Physician Cardiology 12/23/21 MD Jeremie [address] [place] [address] [phone]
--- OUTSIDE RECORDS SUMMARY | 2022-08-31 19:28 | XMS REPORT | Continuity of Care Document ---
:1950 Author Organization [facility] t Address [address] [place] [address] Care Team Providers Name Role Phone Pcp, Patient Does Not Have A Primary Care Physician [phone] SYSTEM, PROVIDER NOT IN Attending Clinician Unavailable DANA THOMAS Attending Clinician Unavailable Nolberto Stevens MD Attending Clinician NOLBERTO STEVENS Attending Clinician Unavailable Dana Thomas MD Attending Clinician Rhonda Buenrostro Attending Clinician Chloe Pablo RN Attending Clinician Unavailable Gabi Fitzpatrick Attending Clinician Kathleen Emanuel RN Attending Clinician Vickie Graves RN Attending Clinician Unavailable Estee Bailon RN Attending Clinician Unavailable GABI SIMON Attending Clinician Unavailable Dorinda Vasquez RN Attending Clinician Unavailable Pcp, Patient Does Not Have A Attending Clinician [phone] Only, Ang Db Test Attending Clinician Unavailable Delores Patel Attending Clinician DELORES COLE Attending Clinician Unavailable Doctor Unassigned, Nipomo Attending Clinician Unavailable Abram NICOLE, Fior Palomino Attending Clinician CHRISTIAN DRIVER Attending Clinician Unavailable Oralia Nash MD Attending Clinician Christian Bean Attending Clinician Unavailable Stevan NICOLE, Cherrie Burnett Attending Clinician Unavailable Mirna NICOLE, Carlos Dunham Attending Clinician Unavailable NEELAM GRANT Attending Clinician Unavailable Neelam Samano Attending Clinician ORALIA NASH Attending Clinician Unavailable Star Treviño MD Attending Clinician STAR TREVIÑO Attending Clinician Unavailable Brooke Sanchez MA Attending Clinician Unavailable Susan Baird MD Attending Clinician Rosalinda Topete RN Attending Clinician Los Mcfadden Attending Clinician LOS GONSALEZ Attending Clinician Unavailable Shakira VUONG, Dar Traore Attending Clinician [phone] Yasmin VUONG, Fermin Osullivan Attending Clinician Jazzmine Xiao CRNA Attending Clinician Herberth Mera MD Attending Clinician Roxi Gaytan RN Attending Clinician Unavailable Genaro Dupont Attending Clinician Cindy Núñez MA Attending Clinician Unavailable Sabra Perez MA Attending Clinician Unavailable REGINE CUELLAR Attending Clinician Unavailable DANA THOMAS Admitting Clinician Unavailable REGINE CUELLAR Admitting Clinician Unavailable Payers Payer Name Policy Type Policy Number Effective Date Expiration Date Orly reyes [employer] MEDICARE PPO [id number] 2019 00:00:00 Problems Condition Condition Condition Status Onset Resolution Last Treating Co mments Source Name Details Category Date Date Treatment Clinician Date Congestive Congestive Disease Active U nivers heart heart 4-25 ity of failure failure 00:00: [place] 00 [facility] Encounter Encounter Disease Active Uni vers for for 4-25 it[place] of antineopla [place] chemothera chemothera [facility] Paroxysmal [facility] atrial 3-22 Assessmen ity of fibrillati fibrillati 00:00: t & Plan: [place] on [place] ureña of this [facility] note n might be Cancer different Center from the original. Patient has a history of atrial fibrillat ion she is likely persisten t versus chronic with EKG done today showing well controlle d atrial fibrillat ion in the 80s. Continue metoprolo l tartrate 25 mg p.o. twice daily but long-term anticoagu lation with Eliquis 5 mg p.o. twice daily with a [id number] ASc score 4 (age, gender, CHF, HTN) Nonischemi Nonischemi Disease Active Last U nivers c c 3-22 Assessmen ity of congestive congestive 00:00: t & Plan: [place] cardiomyop cardiomyop 00 [place] ureña of this [facility] note n might be Cancer different Center from the original. Patient has a history [...] discussio n with her private cardiolog ist concernin g a permanent ICD implant and knows she would need a follow-up appointme nt within 3 months. Patient states she elected to have her further managemen t with her local cardiolog ist. Metastatic Metastatic Disease Active U nivers cancer to cancer to 1-21 ity of the the 00:00: [place] peritoneum peritoneum 00 MD [facility] Cardiomega Cardiomega Disease Active U nivers ly ly 1-21 ity of 00:00: [place] 00 MD [facility] Mixed Mixed Disease Active 2018-09 Univers urinary urinary 0-17 ity of incontinen incontinen [place] 00 [facility] Chronic Chronic Disease Active Univers constipati constipati 4-18 it y of on on 00:00: [place] 00 MD [facility] Coronary Coronary Disease Active Last Unive rs artery artery 2-12 Assessmen ity of disease disease 00:00: t & Plan: [place] due to due to Formattin calcified calcified g of this A nderso coronary coronary note n lesion lesion might be Cancer different Center from the original. Left heart catheteri zation done 2 showed normal coronary arteries with only luminal irregular ities. Continue pravastat in 20 mg p.o. daily. Other Other Disease Active Univers specified specified 8 ity of polyneurop polyneurop [place] at[place] athy 00 [facility] Essential Essential Disease Active Overview: Univers (primary) (primary) 2-15 Formattin i ty of hypertensi hypertensi 00:00: g of this [place] on on 00 note is different [facility] from the n original. Cancer [facility] Center Readings from Last 3 Encounter s: 11/21/16 [...] mg daily. Morbid Morbid Disease Active Overview: Univer s (severe) (severe) 2-15 Formattin ity of obesity obesity 00:00: g of this [place] due to due to 00 note excess excess might be [facility] calories calories different n from the Cancer original. Center 11/21/2016 Body mass index is 41.48 kg/(m^2). Weight: (!) 106.2 kg (234 lb 2.1 oz) [place] body weight: 52.4 kg (115 lb 7.7 [...] PCP for managemen t of this issue. Serous Serous Disease Active Univers cystadenoc cystadenoc 2-15 it y of arcinoma, arcinoma, 00:00: Bhakti s NOS of NOS of 00 MD cecile dun[facility] Preoperati Preoperati Disease Resolve 2022-01-01 2022-01-01 Univers ve ve d 3-22 00:00:00 18:44:24 ity of cardiovasc cardiovasc 00:00: Duane mathew 00 examinatio [facility]inatio [facility] History of History of Disease Resolve 2021-10-28 2021-10-28 Univers malignant malignant d 4-18 00:00:00 15:19:48 ity of neoplasm neoplasm 00:00: [place] of of 00 MD cecile dunham [facility] Allergies, Adverse Reactions, Alerts Allergy Allergy Status Severity Reaction(s) Onset Inactive Treating Comm ents Source Name Type Date Date Clinician Codeine Propensi Active Nausea And 2018- [facility] reaction [facility] Morphine Propensi Active [facility]: Medical reaction 00 Center s Naloxone Propensi Active [facility]ausea [facility] 00:00: Medical reaction 00 Center s Opium Propensi Active Nausea And 2018-[address] [facility] to [facility]omiting 8-10 [facility] adverse 00:00: Medical reaction 00 Center s OPIUM DRUG Active Nausea 2017-0 MD INGREDI 3-03 [facility] 00:00: n 00 MORPHINE DRUG Active Med Nausea 2017-0 MD INGREDI 3-03 [facility] 00:00: n 00 NALOXONE DRUG Active Nausea 2017-0 MD INGREDI 3-03 [facility] 00:00: n 00 OPIUM DRUG Active Nausea 2017-0 MD INGREDI 3-03 [facility] 00:00: n 00 MORPHINE DRUG Active Med Nausea 2017-0 MD INGREDI 3-03 [facility] 00:00: n 00 NALOXONE DRUG Active Nausea 2017-0 MD INGREDI 3-03 [facility] 00:00: n 00 OPIUM DRUG Active Nausea 2017-0 MD INGREDI 3-03 [facility] 00:00: n 00 MORPHINE DRUG Active Med Nausea 2017-0 MD INGREDI 3-03 [facility] 00:00: n 00 NALOXONE DRUG Active Nausea 2017-0 MD INGREDI 3-03 [facility] 00:00: n 00 OPIUM DRUG Active Nausea 2017-0 MD INGREDI 3-03 [facility] 00:00: n 00 MORPHINE DRUG Active Med Nausea 2017-0 MD INGREDI 3-03 [facility] 00:00: n 00 NALOXONE DRUG Active Nausea 2017-0 MD INGREDI 3-03 [facility] 00:00: n 00 OPIUM DRUG Active Nausea 2017-0 MD INGREDI 3-03 [facility] 00:00: n 00 MORPHINE DRUG Active Med Nausea 2017-0 MD INGREDI 3-03 [facility] 00:00: n 00 NALOXONE DRUG Active Nausea 2017-0 MD INGREDI 3-03 [facility] 00:00: n 00 OPIUM DRUG Active Nausea 2017-0 MD INGREDI 3-03 [facility] 00:00: n 00 MORPHINE DRUG Active Med Nausea 2017-0 MD INGREDI 3-03 [facility] 00:00: n 00 NALOXONE DRUG Active Nausea 2017-0 MD INGREDI 3-03 [facility] 00:00: n 00 OPIUM DRUG Active Nausea 2017-0 MD INGREDI 3-03 [facility] 00:00: n 00 MORPHINE DRUG Active Med Nausea 2017-0 MD INGREDI 3-03 [facility] 00:00: n 00 NALOXONE DRUG Active Nausea 2017-0 MD INGREDI 3-03 [facility] 00:00: n 00 OPIUM DRUG Active Nausea 2017-0 MD INGREDI 3-03 [facility] 00:00: n 00 MORPHINE DRUG Active Med Nausea 2017-0 MD INGREDI 3-03 [facility] 00:00: n 00 NALOXONE DRUG Active Nausea 2017-0 MD INGREDI 3-03 [facility] 00:00: n 00 OPIUM DRUG Active Nausea 2017-0 MD INGREDI 3-03 [facility] 00:00: n 00 MORPHINE DRUG Active Med Nausea 2017-0 MD INGREDI 3-03 [facility] 00:00: n 00 NALOXONE DRUG Active Nausea 2017-0 MD INGREDI 3-03 [facility] 00:00: n 00 OPIUM DRUG Active Nausea 2017-0 MD INGREDI 3-03 [facility] 00:00: n 00 MORPHINE DRUG Active Med Nausea 2017-0 MD INGREDI 3-03 [facility] 00:00: n 00 NALOXONE DRUG Active Nausea 2017-0 MD INGREDI 3-03 [facility] 00:00: n 00 OPIUM DRUG Active Nausea 2017-0 MD INGREDI 3-03 [facility] 00:00: n 00 MORPHINE DRUG Active Med Nausea 2017-0 MD INGREDI 3-03 [facility] 00:00: n 00 NALOXONE DRUG Active Nausea 2017-0 MD INGREDI 3-03 [facility] 00:00: n 00 OPIUM DRUG Active Nausea 2017-0 MD INGREDI 3-03 [facility] 00:00: n 00 MORPHINE DRUG Active Med Nausea 2017-0 MD INGREDI 3-03 [facility] 00:00: n 00 NALOXONE DRUG Active Nausea 2017-0 MD INGREDI 3-03 [facility] 00:00: n 00 OPIUM DRUG Active Nausea 2017-0 MD INGREDI 3-03 [facility] 00:00: n 00 MORPHINE DRUG Active Med Nausea 2017-0 MD INGREDI 3-03 [facility] 00:00: n 00 NALOXONE DRUG Active Nausea 2017-0 MD INGREDI 3-03 [facility] 00:00: n 00 OPIUM DRUG Active Nausea 2017-0 MD INGREDI 3-03 [facility] 00:00: n 00 MORPHINE DRUG Active Med Nausea 2017-0 MD INGREDI 3-03 [facility] 00:00: n 00 NALOXONE DRUG Active Nausea 2017-0 MD INGREDI 3-03 [facility] 00:00: n 00 OPIUM DRUG Active Nausea 2017-0 MD INGREDI 3-03 [facility] 00:00: n 00 MORPHINE DRUG Active Med Nausea 2017-0 MD INGREDI 3-03 [facility] 00:00: n 00 NALOXONE DRUG Active Nausea 2017-0 MD INGREDI 3-03 [facility] 00:00: n 00 OPIUM DRUG Active Nausea 2017-0 MD INGREDI 3-03 [facility] 00:00: n 00 MORPHINE DRUG Active Med Nausea 2017-0 MD INGREDI 3-03 [facility] 00:00: n 00 NALOXONE DRUG Active Nausea 2017-0 MD INGREDI 3-03 [facility] 00:00: n 00 OPIUM DRUG Active Nausea 2017-0 MD INGREDI 3-03 [facility] 00:00: n 00 MORPHINE DRUG Active Med Nausea 2017-0 MD INGREDI 3-03 [facility] 00:00: n 00 NALOXONE DRUG Active Nausea 2017-0 MD INGREDI 3-03 [facility] 00:00: n 00 OPIUM DRUG Active Nausea 2017-0 MD INGREDI 3-03 [facility] 00:00: n 00 MORPHINE DRUG Active Med Nausea 2017-0 MD INGREDI 3-03 [facility] 00:00: n 00 NALOXONE DRUG Active Nausea 2017-0 MD INGREDI 3-03 [facility] 00:00: n 00 OPIUM DRUG Active Nausea 2017-0 MD INGREDI 3-03 [facility] 00:00: n 00 MORPHINE DRUG Active Med Nausea 2017-0 MD INGREDI 3-03 [facility] 00:00: n 00 NALOXONE DRUG Active Nausea 2017-0 MD INGREDI 3-03 [facility] 00:00: n 00 OPIUM DRUG Active Nausea 2017-0 MD INGREDI 3-03 [facility] 00:00: n 00 MORPHINE DRUG Active Med Nausea 2017-0 MD INGREDI 3-03 [facility] 00:00: n 00 NALOXONE DRUG Active Nausea 2017-0 MD INGREDI 3-03 [facility] 00:00: n 00 OPIUM DRUG Active Nausea 2017-0 MD INGREDI 3-03 [facility] 00:00: n 00 MORPHINE DRUG Active Med Nausea 2017-0 MD INGREDI 3-03 [facility] 00:00: n 00 NALOXONE DRUG Active Nausea 2017-0 MD INGREDI 3-03 [facility] 00:00: n 00 OPIUM DRUG Active Nausea 2017-0 MD INGREDI 3-03 [facility] 00:00: n 00 MORPHINE DRUG Active Med Nausea 2017-0 MD INGREDI 3-03 [facility] 00:00: n 00 NALOXONE DRUG Active Nausea 2017-0 MD INGREDI 3-03 [facility] 00:00: n 00 OPIUM DRUG Active Nausea 2017-0 MD INGREDI 3-03 [facility] 00:00: n 00 MORPHINE DRUG Active Med Nausea 2017-0 MD INGREDI 3-03 [facility] 00:00: n 00 NALOXONE DRUG Active Nausea 2017-0 MD INGREDI 3-03 [facility] 00:00: n 00 OPIUM DRUG Active Nausea 2017-0 MD INGREDI 3-03 [facility] 00:00: n 00 MORPHINE DRUG Active Med Nausea 2017-0 MD INGREDI 3-03 [facility] 00:00: n 00 NALOXONE DRUG Active Nausea 2017-0 MD INGREDI 3-03 [facility] 00:00: n 00 OPIUM DRUG Active Nausea 2017-0 MD INGREDI 3-03 [facility] 00:00: n 00 MORPHINE DRUG Active Med Nausea 2017-0 MD INGREDI 3-03 [facility] 00:00: n 00 NALOXONE DRUG Active Nausea 2017-0 MD INGREDI 3-03 [facility] 00:00: n 00 OPIUM DRUG Active Nausea 2017-0 MD INGREDI 3-03 [facility] 00:00: n 00 MORPHINE DRUG Active Med Nausea 2017-0 MD INGREDI 3-03 [facility] 00:00: n 00 NALOXONE DRUG Active Nausea 2017-0 MD INGREDI 3-03 [facility] 00:00: n 00 OPIUM DRUG Active Nausea 2017-0 MD INGREDI 3-03 [facility] 00:00: n 00 MORPHINE DRUG Active Med Nausea 2017-0 MD INGREDI 3-03 [facility] 00:00: n 00 NALOXONE DRUG Active Nausea 2017-0 MD INGREDI 3-03 [facility] 00:00: n 00 OPIUM DRUG Active Nausea 2017-0 MD INGREDI 3-03 [facility] 00:00: n 00 MORPHINE DRUG Active Med Nausea 2017-0 MD INGREDI 3-03 [facility] 00:00: n 00 NALOXONE DRUG Active Nausea 2017-0 MD INGREDI 3-03 [facility] 00:00: n 00 OPIUM DRUG Active Nausea 2017-0 MD INGREDI 3-03 [facility] 00:00: n 00 MORPHINE DRUG Active Med Nausea 2017-0 MD INGREDI 3-03 [facility] 00:00: n 00 NALOXONE DRUG Active Nausea 2017-0 MD INGREDI 3-03 [facility] 00:00: n 00 OPIUM DRUG Active Nausea 2017-0 MD INGREDI 3-03 [facility] 00:00: n 00 MORPHINE DRUG Active Med Nausea 2017-0 MD INGREDI 3-03 [facility] 00:00: n 00 NALOXONE DRUG Active Nausea 2017-0 MD INGREDI 3-03 [facility] 00:00: n 00 OPIUM DRUG Active Nausea 2017-0 MD INGREDI 3-03 [facility] 00:00: n 00 MORPHINE DRUG Active Med Nausea 2017-0 MD INGREDI 3-03 [facility] 00:00: n 00 NALOXONE DRUG Active Nausea 2017-0 MD INGREDI 3-03 [facility] 00:00: n 00 OPIUM DRUG Active Nausea 2017-0 MD INGREDI 3-03 [facility] 00:00: n 00 MORPHINE DRUG Active Med Nausea 2017-0 MD INGREDI 3-03 [facility] 00:00: n 00 NALOXONE DRUG Active Nausea 2017-0 MD INGREDI 3-03 [facility] 00:00: n 00 OPIUM DRUG Active Nausea 2017-0 MD INGREDI 3-03 [facility] 00:00: n 00 MORPHINE DRUG Active Med Nausea 2017-0 MD INGREDI 3-03 [facility] 00:00: n 00 NALOXONE DRUG Active Nausea 2017-0 MD INGREDI 3-03 [facility] 00:00: n 00 OPIUM DRUG Active Nausea 2017-0 MD INGREDI 3-03 [facility] 00:00: n 00 MORPHINE DRUG Active Med Nausea 2017-0 MD INGREDI 3-03 [facility] 00:00: n 00 NALOXONE DRUG Active Nausea 2017-0 MD INGREDI 3-03 [facility] 00:00: n 00 OPIUM DRUG Active Nausea 2017-0 MD INGREDI 3-03 [facility] 00:00: n 00 MORPHINE DRUG Active Med Nausea 2017-0 MD INGREDI 3-03 [facility] 00:00: n 00 NALOXONE DRUG Active Nausea 2017-0 MD INGREDI 3-03 [facility] 00:00: n 00 OPIUM DRUG Active Nausea 2017-0 MD INGREDI 3-03 [facility] 00:00: n 00 MORPHINE DRUG Active Med Nausea 2017-0 MD INGREDI 3-03 [facility] 00:00: n 00 NALOXONE DRUG Active Nausea 2017-0 MD INGREDI 3-03 [facility] 00:00: n 00 OPIUM DRUG Active Nausea 2017-0 MD INGREDI 3-03 [facility] 00:00: n 00 MORPHINE DRUG Active Med Nausea 2017-0 MD INGREDI 3-03 [facility] 00:00: n 00 NALOXONE DRUG Active Nausea 2017-0 MD INGREDI 3-03 [facility] 00:00: n 00 OPIUM DRUG Active Nausea 2017-0 MD INGREDI 3-03 [facility] 00:00: n 00 MORPHINE DRUG Active Med Nausea 2017-0 MD INGREDI 3-03 [facility] 00:00: n 00 NALOXONE DRUG Active Nausea 2017-0 MD INGREDI 3-03 [facility] 00:00: n 00 OPIUM DRUG Active Nausea 2017-0 MD INGREDI 3-03 [facility] 00:00: n 00 MORPHINE DRUG Active Med Nausea 2017-0 MD INGREDI 3-03 [facility] 00:00: n 00 NALOXONE DRUG Active Nausea 2017-0 MD INGREDI 3-03 [facility] 00:00: n 00 OPIUM DRUG Active Nausea 2017-0 MD INGREDI 3-03 [facility] 00:00: n 00 MORPHINE DRUG Active Med Nausea 2017-0 MD INGREDI 3-03 [facility] 00:00: n 00 NALOXONE DRUG Active Nausea 2017-0 MD INGREDI 3-03 [facility] 00:00: n 00 OPIUM DRUG Active Nausea 2017-0 MD INGREDI 3-03 [facility] 00:00: n 00 MORPHINE DRUG Active Med Nausea 2017-0 MD INGREDI 3-03 [facility] 00:00: n 00 NALOXONE DRUG Active Nausea 2017-0 MD INGREDI 3-03 [facility] 00:00: n 00 OPIUM DRUG Active Nausea 2017-0 MD INGREDI 3-03 [facility] 00:00: n 00 MORPHINE DRUG Active Med Nausea 2017-0 MD INGREDI 3-03 [facility] 00:00: n 00 NALOXONE DRUG Active Nausea 2017-0 MD INGREDI 3-03 [facility] 00:00: n 00 OPIUM DRUG Active Nausea 2017-0 MD INGREDI 3-03 [facility] 00:00: n 00 MORPHINE DRUG Active Med Nausea 2017-0 MD INGREDI 3-03 [facility] 00:00: n 00 NALOXONE DRUG Active Nausea 2017-0 MD INGREDI 3-03 [facility] 00:00: n 00 OPIUM DRUG Active Nausea 2017-0 MD INGREDI 3-03 [facility] 00:00: n 00 MORPHINE DRUG Active Med Nausea 2017-0 MD INGREDI 3-03 [facility] 00:00: n 00 NALOXONE DRUG Active Nausea 2017-0 MD INGREDI 3-03 [facility] 00:00: n 00 OPIUM DRUG Active Nausea 2017-0 MD INGREDI 3-03 [facility] 00:00: n 00 MORPHINE DRUG Active Med Nausea 2017-0 MD INGREDI 3-03 [facility] 00:00: n 00 NALOXONE DRUG Active Nausea 2017-0 MD INGREDI 3-03 [facility] 00:00: n 00 OPIUM DRUG Active Nausea 2017-0 MD INGREDI 3-03 [facility] 00:00: n 00 MORPHINE DRUG Active Med Nausea 2017-0 MD INGREDI 3-03 [facility] 00:00: n 00 NALOXONE DRUG Active Nausea 2017-0 MD INGREDI 3-03 [facility] 00:00: n 00 OPIUM DRUG Active Nausea 2017-0 MD INGREDI 3-03 [facility] 00:00: n 00 MORPHINE DRUG Active Med Nausea 2017-0 MD INGREDI 3-03 [facility] 00:00: n 00 NALOXONE DRUG Active Nausea 2017-0 MD INGREDI 3-03 [facility] 00:00: n 00 OPIUM DRUG Active Nausea 2017-0 MD INGREDI 3-03 [facility] 00:00: n 00 MORPHINE DRUG Active Med Nausea 2017-0 MD INGREDI 3-03 [facility] 00:00: n 00 NALOXONE DRUG Active Nausea 2017-0 MD INGREDI 3-03 [facility] 00:00: n 00 OPIUM DRUG Active Nausea 2017-0 MD INGREDI 3-03 [facility] 00:00: n 00 MORPHINE DRUG Active Med Nausea 2017-0 MD INGREDI 3-03 [facility] 00:00: n 00 NALOXONE DRUG Active Nausea 2017-0 MD INGREDI 3-03 [facility] 00:00: n 00 OPIUM DRUG Active Nausea 2017-0 MD INGREDI 3-03 [facility] 00:00: n 00 MORPHINE DRUG Active Med Nausea 2017-0 MD INGREDI 3-03 [facility] 00:00: n 00 NALOXONE DRUG Active Nausea 2017-0 MD INGREDI 3-03 [facility] 00:00: n 00 OPIUM DRUG Active Nausea 2017-0 MD INGREDI 3-03 [facility] 00:00: n 00 MORPHINE DRUG Active Med Nausea 2017-0 MD INGREDI 3-03 [facility] 00:00: n 00 NALOXONE DRUG Active Nausea 2017-0 MD INGREDI 3-03 [facility] 00:00: n 00 OPIUM DRUG Active Nausea 2017-0 MD INGREDI 3-03 [facility] 00:00: n 00 MORPHINE DRUG Active Med Nausea 2017-0 MD INGREDI 3-03 [facility] 00:00: n 00 NALOXONE DRUG Active Nausea 2017-0 MD INGREDI 3-03 [facility] 00:00: n 00 OPIUM DRUG Active Nausea 2017-0 MD INGREDI 3-03 [facility] 00:00: n 00 MORPHINE DRUG Active Med Nausea 2017-0 MD INGREDI 3-03 [facility] 00:00: n 00 NALOXONE DRUG Active Nausea 2017-0 MD INGREDI 3-03 [facility] 00:00: n 00 OPIUM DRUG Active Nausea 2017-0 MD INGREDI 3-03 [facility] 00:00: n 00 MORPHINE DRUG Active Med Nausea 2017-0 MD INGREDI 3-03 [facility] 00:00: n 00 NALOXONE DRUG Active Nausea 2017-0 MD INGREDI 3-03 [facility] 00:00: n 00 OPIUM DRUG Active Nausea 2017-0 MD INGREDI 3-03 [facility] 00:00: n 00 MORPHINE DRUG Active Med Nausea 2017-0 MD INGREDI 3-03 [facility] 00:00: n 00 NALOXONE DRUG Active Nausea 2017-0 MD INGREDI 3-03 [facility] 00:00: n 00 OPIUM DRUG Active Nausea 2017-0 MD INGREDI 3-03 [facility] 00:00: n 00 MORPHINE DRUG Active Med Nausea 2017-0 MD INGREDI 3-03 [facility] 00:00: n 00 NALOXONE DRUG Active Nausea 2017-0 MD INGREDI 3-03 [facility] 00:00: n 00 OPIUM DRUG Active Nausea 2017-0 MD INGREDI 3-03 [facility] 00:00: n 00 MORPHINE DRUG Active Med Nausea 2017-0 MD INGREDI 3-03 [facility] 00:00: n 00 NALOXONE DRUG Active Nausea 2017-0 MD INGREDI 3-03 [facility] 00:00: n 00 OPIUM DRUG Active Nausea 2017-0 MD INGREDI 3-03 [facility] 00:00: n 00 MORPHINE DRUG Active Med Nausea 2017-0 MD INGREDI 3-03 [facility] 00:00: n 00 NALOXONE DRUG Active Nausea 2017-0 MD INGREDI 3-03 [facility] 00:00: n 00 OPIUM DRUG Active Nausea 2017-0 MD INGREDI 3-03 [facility] 00:00: n 00 MORPHINE DRUG Active Med Nausea 2017-0 MD INGREDI 3-03 [facility] 00:00: n 00 NALOXONE DRUG Active Nausea 2017-0 MD INGREDI 3-03 [facility] 00:00: n 00 OPIUM DRUG Active Nausea 2017-0 MD INGREDI 3-03 [facility] 00:00: n 00 MORPHINE DRUG Active Med Nausea 2017-0 MD INGREDI 3-03 [facility] 00:00: n 00 NALOXONE DRUG Active Nausea 2017-0 MD INGREDI 3-03 [facility] 00:00: n 00 OPIUM DRUG Active Nausea 2017-0 MD INGREDI 3-03 [facility] 00:00: n 00 MORPHINE DRUG Active Med Nausea 2017-0 MD INGREDI 3-03 [facility] 00:00: n 00 NALOXONE DRUG Active Nausea 2017-0 MD INGREDI 3-03 [facility] 00:00: n 00 OPIUM DRUG Active Nausea 2017-0 MD INGREDI 3-03 [facility] 00:00: n 00 MORPHINE DRUG Active Med Nausea 2017-0 MD INGREDI 3-03 [facility] 00:00: n 00 NALOXONE DRUG Active Nausea 2017-0 MD INGREDI 3-03 [facility] 00:00: n 00 OPIUM DRUG Active Nausea 2017-0 MD INGREDI 3-03 [facility] 00:00: n 00 MORPHINE DRUG Active Med Nausea 2017-0 MD INGREDI 3-03 [facility] 00:00: n 00 NALOXONE DRUG Active Nausea 2017-0 MD INGREDI 3-03 [facility] 00:00: n 00 OPIUM DRUG Active Nausea 2017-0 MD INGREDI 3-03 [facility] 00:00: n 00 MORPHINE DRUG Active Med Nausea 2017-0 MD INGREDI 3-03 [facility] 00:00: n 00 NALOXONE DRUG Active Nausea 2017-0 MD INGREDI 3-03 [facility] 00:00: n 00 OPIUM DRUG Active Nausea 2017-0 MD INGREDI 3-03 [facility] 00:00: n 00 MORPHINE DRUG Active Med Nausea 2017-0 MD INGREDI 3-03 [facility] 00:00: n 00 NALOXONE DRUG Active Nausea 2017-0 MD INGREDI 3-03 [facility] 00:00: n 00 OPIUM DRUG Active Nausea 2017-0 MD INGREDI 3-03 [facility] 00:00: n 00 MORPHINE DRUG Active Med Nausea 2017-0 MD INGREDI 3-03 [facility] 00:00: n 00 NALOXONE DRUG Active Nausea 2017-0 MD INGREDI 3-03 [facility] 00:00: n 00 OPIUM DRUG Active Nausea 2017-0 MD INGREDI 3-03 [facility] 00:00: n 00 MORPHINE DRUG Active Med Nausea 2017-0 MD INGREDI 3-03 [facility] 00:00: n 00 NALOXONE DRUG Active Nausea 2017-0 MD INGREDI 3-03 [facility] 00:00: n 00 OPIUM DRUG Active Nausea 2017-0 MD INGREDI 3-03 [facility] 00:00: n 00 MORPHINE DRUG Active Med Nausea 2017-0 MD INGREDI 3-03 [facility] 00:00: n 00 NALOXONE DRUG Active Nausea 2017-0 MD INGREDI 3-03 [facility] 00:00: n 00 OPIUM DRUG Active Nausea 2017-0 MD INGREDI 3-03 [facility] 00:00: n 00 MORPHINE DRUG Active Med Nausea 2017-0 MD INGREDI 3-03 [facility] 00:00: n 00 NALOXONE DRUG Active Nausea 2017-0 MD INGREDI 3-03 [facility] 00:00: n 00 OPIUM DRUG Active Nausea 2017-0 MD INGREDI 3-03 [facility] 00:00: n 00 MORPHINE DRUG Active Med Nausea 2017-0 MD INGREDI 3-03 [facility] 00:00: n 00 NALOXONE DRUG Active Nausea 2017-0 MD INGREDI 3-03 [facility] 00:00: n 00 OPIUM DRUG Active Nausea 2017-0 MD INGREDI 3-03 [facility] 00:00: n 00 Morphine Propensi Active GI 2017-0 Nausea Univer s ty to Intolerance 3-03 and ity o f adverse 00:00: vomiting [place] reaction 00 sometime. [facility] Naloxone Propensi Active GI 2017-0 Univer s ty to Intolerance 3-03 ity o f adverse 00:00: [place] reaction 00 [facility] Opium Propensi Active GI 2017-0 Univers ty to Intolerance 3-03 ity o f adverse 00:00: [place] reaction 00 [facility] MORPHINE DRUG Active Med Nausea 2017-0 MD INGREDI 3-03 Anderso 00:00: n 00 NALOXONE DRUG Active Nausea 2017-0 MD INGREDI 3-03 Anderso 00:00: n 00 FRUIT DRUG Active High Hives 2017-0 MD PUNCH INGREDI 2-28 Anderso FLAVOR 00:00: n 00 Fruit Drug Active Itching 2017-0 Allergy Univers Punch Allergy 2-28 to most ity of Flavor 00:00: Fruits [place] 00 with MD seeds, Anderso strawberr n ies, Cancer etc..... [place] CODEINE DRUG Active Med Nausea 2017-0 MD INGREDI 2-15 Anderso 00:00: n 00 CODEINE DRUG Active Med Nausea 2017-0 MD INGREDI 2-15 Anderso 00:00: n 00 CODEINE DRUG Active Med Nausea 2017-0 MD INGREDI 2-15 Anderso 00:00: n 00 CODEINE DRUG Active Med Nausea 2017-0 MD INGREDI 2-15 Anderso 00:00: n 00 CODEINE DRUG Active Med Nausea 2017-0 MD INGREDI 2-15 Anderso 00:00: n 00 CODEINE DRUG Active Med Nausea 2017-0 MD INGREDI 2-15 Anderso 00:00: n 00 CODEINE DRUG Active Med Nausea 2017-0 MD INGREDI 2-15 Anderso 00:00: n 00 CODEINE DRUG Active Med Nausea 2017-0 MD INGREDI 2-15 Anderso 00:00: n 00 CODEINE DRUG Active Med Nausea 2017-0 MD INGREDI 2-15 Anderso 00:00: n 00 CODEINE DRUG Active Med Nausea 2017-0 MD INGREDI 2-15 Anderso 00:00: n 00 CODEINE DRUG Active Med Nausea 2017-0 MD INGREDI 2-15 Anderso 00:00: n 00 CODEINE DRUG Active Med Nausea 2017-0 MD INGREDI 2-15 Anderso 00:00: n 00 CODEINE DRUG Active Med Nausea 2017-0 MD INGREDI 2-15 Anderso 00:00: n 00 CODEINE DRUG Active Med Nausea 2017-0 MD INGREDI 2-15 Anderso 00:00: n 00 CODEINE DRUG Active Med Nausea 2017-0 MD INGREDI 2-15 Anderso 00:00: n 00 CODEINE DRUG Active Med Nausea 2017-0 MD INGREDI 2-15 Anderso 00:00: n 00 CODEINE DRUG Active Med Nausea 2017-0 MD INGREDI 2-15 Anderso 00:00: n 00 CODEINE DRUG Active Med Nausea 2017-0 MD INGREDI 2-15 Anderso 00:00: n 00 CODEINE DRUG Active Med Nausea 2017-0 MD INGREDI 2-15 Anderso 00:00: n 00 CODEINE DRUG Active Med Nausea 2017-0 MD INGREDI 2-15 Anderso 00:00: n 00 CODEINE DRUG Active Med Nausea 2017-0 MD INGREDI 2-15 Anderso 00:00: n 00 CODEINE DRUG Active Med Nausea 2017-0 MD INGREDI 2-15 Anderso 00:00: n 00 CODEINE DRUG Active Med Nausea 2017-0 MD INGREDI 2-15 Anderso 00:00: n 00 CODEINE DRUG Active Med Nausea 2017-0 MD INGREDI 2-15 Anderso 00:00: n 00 CODEINE DRUG Active Med Nausea 2017-0 MD INGREDI 2-15 Anderso 00:00: n 00 CODEINE DRUG Active Med Nausea 2017-0 MD INGREDI 2-15 Anderso 00:00: n 00 CODEINE DRUG Active Med Nausea 2017-0 MD INGREDI 2-15 Anderso 00:00: n 00 CODEINE DRUG Active Med Nausea 2017-0 MD INGREDI 2-15 Anderso 00:00: n 00 CODEINE DRUG Active Med Nausea 2017-0 MD INGREDI 2-15 Anderso 00:00: n 00 CODEINE DRUG Active Med Nausea 2017-0 MD INGREDI 2-15 Anderso 00:00: n 00 CODEINE DRUG Active Med Nausea 2017-0 MD INGREDI 2-15 Anderso 00:00: n 00 CODEINE DRUG Active Med Nausea 2017-0 MD INGREDI 2-15 Anderso 00:00: n 00 CODEINE DRUG Active Med Nausea 2017-0 MD INGREDI 2-15 Anderso 00:00: n 00 CODEINE DRUG Active Med Nausea 2017-0 MD INGREDI 2-15 Anderso 00:00: n 00 CODEINE DRUG Active Med Nausea 2017-0 MD INGREDI 2-15 Anderso 00:00: n 00 CODEINE DRUG Active Med Nausea 2017-0 MD INGREDI 2-15 Anderso 00:00: n 00 CODEINE DRUG Active Med Nausea 2017-0 MD INGREDI 2-15 Anderso 00:00: n 00 CODEINE DRUG Active Med Nausea 2017-0 MD INGREDI 2-15 Anderso 00:00: n 00 CODEINE DRUG Active Med Nausea 2017-0 MD INGREDI 2-15 Anderso 00:00: n 00 CODEINE DRUG Active Med Nausea 2017-0 MD INGREDI 2-15 Anderso 00:00: n 00 CODEINE DRUG Active Med Nausea 2017-0 MD INGREDI 2-15 Anderso 00:00: n 00 CODEINE DRUG Active Med Nausea 2017-0 MD INGREDI 2-15 Anderso 00:00: n 00 CODEINE DRUG Active Med Nausea 2017-0 MD INGREDI 2-15 Anderso 00:00: n 00 CODEINE DRUG Active Med Nausea 2017-0 MD INGREDI 2-15 Anderso 00:00: n 00 CODEINE DRUG Active Med Nausea 2017-0 MD INGREDI 2-15 Anderso 00:00: n 00 CODEINE DRUG Active Med Nausea 2017-0 MD INGREDI 2-15 Anderso 00:00: n 00 CODEINE DRUG Active Med Nausea 2017-0 MD INGREDI 2-15 Anderso 00:00: n 00 CODEINE DRUG Active Med Nausea 2017-0 MD INGREDI 2-15 Anderso 00:00: n 00 CODEINE DRUG Active Med Nausea 2017-0 MD INGREDI 2-15 Anderso 00:00: n 00 CODEINE DRUG Active Med Nausea 2017-0 MD INGREDI 2-15 Anderso 00:00: n 00 CODEINE DRUG Active Med Nausea 2017-0 MD INGREDI 2-15 Anderso 00:00: n 00 CODEINE DRUG Active Med Nausea 2017-0 MD INGREDI 2-15 Anderso 00:00: n 00 CODEINE DRUG Active Med Nausea 2017-0 MD INGREDI 2-15 Anderso 00:00: n 00 CODEINE DRUG Active Med Nausea 2017-0 MD INGREDI 2-15 Anderso 00:00: n 00 CODEINE DRUG Active Med Nausea 2017-0 MD INGREDI 2-15 Anderso 00:00: n 00 CODEINE DRUG Active Med Nausea 2017-0 MD INGREDI 2-15 Anderso 00:00: n 00 CODEINE DRUG Active Med Nausea 2017-0 MD INGREDI 2-15 Anderso 00:00: n 00 CODEINE DRUG Active Med Nausea 2017-0 MD INGREDI 2-15 Anderso 00:00: n 00 CODEINE DRUG Active Med Nausea 2017-0 MD INGREDI 2-15 Anderso 00:00: n 00 CODEINE DRUG Active Med Nausea 2017-0 MD INGREDI 2-15 Anderso 00:00: n 00 CODEINE DRUG Active Med Nausea 2017-0 MD INGREDI 2-15 Anderso 00:00: n 00 CODEINE DRUG Active Med Nausea 2017-0 MD INGREDI 2-15 Anderso 00:00: n 00 CODEINE DRUG Active Med Nausea 2017-0 MD INGREDI 2-15 Anderso 00:00: n 00 CODEINE DRUG Active Med Nausea 2017-0 MD INGREDI 2-15 Anderso 00:00: n 00 CODEINE DRUG Active Med Nausea 2017-0 MD INGREDI 2-15 Anderso 00:00: n 00 CODEINE DRUG Active Med Nausea 2017-0 MD INGREDI 2-15 Anderso 00:00: n 00 CODEINE DRUG Active Med Nausea 2017-0 MD INGREDI 2-15 Anderso 00:00: n 00 CODEINE DRUG Active Med Nausea 2017-0 MD INGREDI 2-15 Anderso 00:00: n 00 CODEINE DRUG Active Med Nausea 2017-0 MD INGREDI 2-15 Anderso 00:00: n 00 CODEINE DRUG Active Med Nausea 2017-0 MD INGREDI 2-15 Anderso 00:00: n 00 CODEINE DRUG Active Med Nausea 2017-0 MD INGREDI 2-15 Anderso 00:00: n 00 Codeine Propensi Active GI 2017-0 Nausea Univers ty to Intolerance 2-15 and ity o f adverse 00:00: vomiting [place] reaction 00 sometime. MD [facility] NO KNOWN Drug Active Univers ALLERGIE Class ity of [facility] [place] [facility] Family History Family Member Diagnosis Comments Start Date Stop Date Source Natural father Heart attack Universi ty [facility] [place] Natural mother Heart attack Universi ty [facility] [place] Natural mother Hypertension Universi ty [facility] [place] Social History Social Habit Start Date Stop Date Quantity Comments Source History of Current smoker [place] tobacco use [place] [facility] History SDOH [facility] r Drinks History SDOH [facility] Alcohol Binge Medical Jessy [facility] History SDOH [facility] Exposure to 2022-08-04 2022-08-14 Not sure University SARS-CoV-2 00:00:00 09:05:00 [facility] Batista son (event) [facility] Alcohol intake 2022-06-27 2022-06-27 Current drinker Unive rsity of 00:00:00 00:00:00 of alcohol [facility]ie phelps (finding) [facility] Tobacco use and 2018-05-03 2018-05-[address] [facility] exposure 00:00:00 00:00:00 [facility] Center Tobacco Comment 2016-11-08 2016-11-08 quit 30yrs ago Unive rsity of 00:00:00 00:00:00 [facility] Alcohol Comment 2016-11-08 2016-11-08 social drinker Unive rsity of 00:00:00 00:00:00 [facility] p[facility] Sex Ass[birth year] At [birth year] Universit y of 00:00:00 00:00:00 Virginie phelps [facility] Smoking Status Start Date Stop Date Source Tobacco smoking [facility] [place] consumption unknown [facility] Never smoker [facility] Ex-smoker 2016-11-21 00:00:00 2016-11-21 University o f Virginie VUONG 00:00:00 [facility] Medications Ordered Filled Start Stop Current Ordering Indication Dosage Frequency Signature Comments Components Source Medication Medication Date Date Medication? Clinician (SIG) Name Name letrozole 2021-09- Yes Metastatic 2.5mg Take 1 Univers (Femara) 10-20 cancer to tablet ity of 2.5 mg 00:00: 05:59 the (2.5 mg) [place] tablet 00 :00 peritoneum by mouth MD daily for Anderso 90 days. n Cancer Center pregabalin Yes Chronic 50mg Take 1 Un ashli (Lyrica) 50 8-22 pain capsule ity o f mg capsule 00:00: (50 mg) [place] 00 mouth MD twice [place] daily. n Cancer Center metoprolol Yes Coronary TAKE ONE Univers tartrate 6-20 artery TABLET BY ity of (LOPRESSOR) 00:00: disease due MOUTH [place] 25 mg 00 to TWICE A MD tablet calcified DAY [place] coronary n lesion Cancer Center diclofenac Yes Chronic 2g Apply 2 g Univers sodium 5-19 pain topically ity of (Voltaren) 00:00: 3 [place]three[place] 1 % gel 00 times a MD day. [facility] [facility] ondansetron 2021- No Metastatic Take 1 Univers (Zofran) 8 01-12 cancer to tablet by ity of mg tablet 00:00: 00:00 the mouth [place] 00 :00 peritoneum every 8 MD hours for Anderso 3 days on n days 2, 3, Cancer and 4 Center following chemothera py, then may take 1 tablet by mouth every 8 hours as needed for nausea or vomiting. prochlorper 2021- No Metastatic 10mg Take 1 Univers azine 01-12 cancer to tablet (10 it y of (Compazine) 00:00: 00:00 the mg) by [place] 10 mg 00 :00 peritoneum mouth MD tablet every 6 Anderso (six) n hours as Cancer needed for Center nausea or vomiting. ondansetron 2021- No Neoplasm, Take 1 tab Univers (Zofran) 8 12-25 malignant every 8 ity of mg tablet 00:00: 00:00 of hours on [place] as 00 :00 endometrium days 2, 3, MD and 4 Anderso following n chemothera Cancer py, then Center may take 1 tab every 8 hours as needed for nausea or vomiting. prochlorper 2021- No Neoplasm, 10mg Take 1 Univers azine 12-25 malignant tablet (10 it y of (Compazine) 00:00: 00:00 of mg) by [place] 10 mg 00 :00 endometrium mouth MD tablet every 6 Anderso (six) n hours as Cancer needed for Center nausea or vomiting. acetaminoph 2021- No 650mg Take 650 Univers en 12-23 mg by ity of (TYLENOL) 13:01: 00:00 mouth [place] 325 mg 04 :00 every 6 MD tablet (six) Anderso hours as n needed for Cancer mild pain. Center pregabalin 2021- Chronic 25mg Take 1 U nivers (Lyrica) 25 12-23 08 pain capsule ity of mg capsule 00:00: 00:00 (25 mg) by [place] 00 :00 mouth MD twice Anderso daily. n Cancer Center HYDROcodone 2021- No Chronic 1{tbl} Take 1 Univers -acetaminop 12-23 04-10 pain tablet by it y of hen (NORCO) 00:00: 00:00 [place] 5 mg-325 mg 00 :00 every 8 MD per tablet (eight) [place] o hours as n needed for Cancer severe Center pain. traMADol 50mg 50 mg Univers (ULTRAM) 50 12-20- every 6 ity of mg tablet 00:00: 00:00 (six) [place] 00 :00 hours as MD needed. Mateo [facility] TURMERIC 2021- No 1{tbl} Take 1 Univ ers ORAL 3-16 03-16 tablet by ity of 13:57: 00:00 mouth [place] 12 :00 daily. MD Mateo [facility] Eliquis 5 Yes 5mg Take 1 Univer s mg tablet 3-14 tablet (5 ity o f 00:00: mg) by [place] 00 mouth MD twice [place] daily. n Cancer [place] Entresto Yes 1{tbl} Take 1 Unive rs 24-26 mg 3-14 tablet by ity of tab per 00:00: mouth [place] tablet 00 twice MD daily. Mateo [facility] furosemide Yes 20mg Take 1 Unive rs (LASIX) 20 3-14 tablet by ity of mg tablet 00:00: mouth [place] 00 daily. MD Mateo meza [facility] spironolact Yes 50mg Take 1 Univ ers one 3-14 tablet by ity of (ALDACTONE) 00:00: mouth [place] 50 mg 00 daily. MD dick meza [facility] amLODIPine 2021- No 5mg Take 5 mg U nivers (NORVASC) 5 11-16 by mouth ity of mg tablet 10:20: 00:00 twice [place] 17 :00 daily. MD Mateo [facility] aspirin 81 2021- No 81mg Take 81 mg Univers mg EC 11-16 by mouth ity of tablet 10:19: 00:00 daily. [place] 29 :00 Reported MD fredrick Galindo 01/24/2017 susana [facility] DIGOXIN 2021- No 125mg Take 125 Univ ers ORAL -16 11-23 mg by ity of 10:19: 00:00 mouth [place] 20 :00 daily. MD Mateo meza [facility] metoprolol 2021- No Coronary 25mg Take 1 Univers tartrate 2-23 06-20 artery tablet (25 it y of (LOPRESSOR) 00:00: 00:00 disease due mg) by [place] 25 mg 00 :00 to mouth MD tablet calcified twice Anders[place] coronary daily. n [facility] ondansetron 2020-09 Yes 4mg Take 1 Univ ers (ZOFRAN) 4 1-05 tablet by ity of mg tablet 00:00: [place] 00 needed. MD [facility] levothyroxi 2020-09 Yes 25ug Take 1 Univ ers ne 0-15 tablet by ity of (SYNTHROID, 00:00: mouth [place] LEVOTHROID) 00 daily. 25 mcg [facility] famotidine 2020-09 Yes 20mg Take 1 Unive rs (PEPCID) 20 0-15 tablet by ity of mg tablet 00:00: mouth [place] 00 daily. MD Mateo [facility] traMADol 2021- No 1{tbl} Take 1 Univ ers (ULTRAM) 50 6-21 03-16 tablet by it y of mg tablet 00:00: 00:00 mouth as [place] 00 :00 needed. MD Mateo meza [facility] pravastatin Yes 20mg Take 1 Univ ers (PRAVACHOL) 6-13 tablet by ity of 20 mg 00:00: mouth [place] tablet 00 daily. MD Mateo me[facility] clopidogrel 2021- No 1{tbl} Take 1 U nivers (PLAVIX) 75 6 03-16 tablet by it y of mg tablet 00:00: 00:00 mouth [place] 00 :00 daily. MD Mateo meza [facility] spironolact 2021- No 1{tbl} Take 1 U nivers one -12 -16 tablet by ity of (ALDACTONE) 00:00: 00:[place] 25 mg 00 :00 daily. MD dick meza [facility] sulfamethox 2021- No 1{tbl} Take 1 U jorge azole-trime 4-04 02-23 tablet by it y of thoprim 00:00: 00:00 mouth [place] (BACTRIM 00 :00 daily. MD PATEL) 800 [place]o mg-160 mg n per tablet Cancer Center ergocalcife 2021- No [id number] 50,000 U nivers rol 12-23 02-23 Units ity of (DRISDOL) 00:00: 00:00 every 30 [place] 50,000 00 :00 (thirty) MD units days. [place] capsule n Cancer Center losartan 2019-09- No Univers (COZAAR) 50 - 03-16 ity of mg tablet 00:00: 00:00 [place] 00 :00 MD Mateo meza [facility] [place] aspirin 81 Yes 81mg QD Take [address] [facility] 8-15 by [facility] tablet 10:18: daily. Medical 40 [place] atenolol Yes 100mg QD Take [address] (TENORMIN) 8-15 mg by [facility] 100 MG 10:18: mouth Medical tablet 40 daily. [place] chlorthalid Yes 25mg QD Take [address] one 8-15 by mouth [facility] (HYGROTON) 10:18: daily. Medic al 25 MG 40 Center tablet Immunizations Ordered Filled Immunization Date Status Comments [facility] e Immunization Name Name Pfizer SARS-CoV-2 2021-05-14 Completed Univer sity of Vaccination (Purple 00:00:00 [place] [facility]) Cancer Center Pfizer SARS-CoV-2 2021-04-25 Completed Univer sity of Vaccination (Purple 00:00:00 [place] [facility]) Cancer [place] Vital Signs Vital Name Observation Time Observation Value Comments Source Systolic blood 2022-08-14 15:09:34 131 mm[Hg] Univer sity of pressure [facility]ie [facility] Diastolic blood 2022-08-14 15:09:34 76 mm[Hg] Unive rsity of pressure [facility]ie [facility] Heart rate 2022-08-14 15:09:34 70 /min Universi ty of [facility]ie [facility] Body temperature 2022-08-14 15:09:34 36.39 Clarisse Univ ersity Duncan [facility] Respiratory rate 2022-08-14 15:09:34 18 /min Univ ersity Duncan [facility] Body weight 2022-08-14 15:09:34 100.7 kg [facility] MD Medrano on [facility] BMI 2022-08-14 15:09:34 38.61 kg/m2 [facility] MD Medrano on [facility] Center Oxygen saturation in 2022-03-17 14:50:26 96 /min [facility] blood by Virginie felder Pulse oximetry Cancer Center Procedures Procedure Date / Time Performing Clinician Source Performed .GLOMERULAR FILTRATION 2022-07-21 15:27:24 [facility] [place] R[facility] CALCIUM LEVEL TOTAL 2022-07-21 15:27:24 Dana Thomas [facility] Results CBC 2022-07-21 15:27:24 Dana Thomas [facility] MANUAL DIFFERENTIAL 2022-07-21 15:27:24 Dana Thomas [facility] CANCER ANTIGEN 125 2022-07-21 15:27:24 Dana Thomas [facility] sity [facility] COMPLETE BLOOD COUNT W/ 2022-07-21 15:27:24 [facility] DIFFERENTIAL [facility] BASIC METABOLIC PANEL, 2022-07-21 15:27:24 [facility] CALCI[facility] TOTAL [facility] BILIRUBIN TOTAL 2022-07-21 15:27:24 Dana Thomas [facility] ALANINE AMINOTRANSFERASE 2022-07-21 15:27:24 Dana Thomas [facility] ASPARTATE AMINOTRANSFERASE 2022-07-21 15:27:24 Dnaa Thomas [facility] MAGNESIUM LEVEL 2022-07-21 15:27:24 Dana Thomas [facility] GLUCOSE LEVEL 2022-07-21 15:27:24 Dana Thomas [facility] BLOOD UREA NITROGEN 2022-07-21 15:27:24 Dana Thomas Unive [facility] ELECTROLYTE PANEL 2022-07-21 15:27:24 Dana Thomas [facility] SERUM CREATININE 2022-07-21 15:27:24 [facility] EKG, 12-LEAD (SCHEDULED) 2022-07-21 00:00:00 Dana Thomas [facility] PETCT SUBSEQUENT TREATMENT 2022-07-20 15:24:27 Gabi Simon [facility] STRATEGY [facility] CANCER ANTIGEN 125 2022-06-23 18:39:37 Dana Thomas [facility] COMPLETE BLOOD COUNT W/ 2022-06-23 18:39:37 Dana Thomas [facility] DIFFERENTIAL [facility] BASIC METABOLIC PANEL, 2022-06-23 18:39:37 [facility] CALCIUM TOTAL [facility] BILIRUBIN TOTAL 2022-06-23 18:39:37 Dana Thomas [facility] ALANINE AMINOTRANSFERASE 2022-06-23 18:39:37 Dana Thomas [facility] ASPARTATE AMINOTRANSFERASE 2022-06-23 18:39:37 Dana Thomas [facility] MAGNESIUM LEVEL 2022-06-23 18:39:37 Dana Thomas [facility] GLUCOSE LEVEL 2022-06-23 18:39:37 Dana Thomas [facility] BLOOD UREA NITROGEN 2022-06-23 18:39:37 Dana Thomas [facility] ELECTROLYTE PANEL 2022-06-23 18:39:37 Dana Thomas [facility] SERUM CREATININE 2022-06-23 18:39:37 [facility] .GLOMERULAR FILTRATION 2022-06-23 18:39:37 Dana Thomas [facility] RATE [facility] CALCIUM LEVEL TOTAL 2022-06-23 18:39:37 Dana Thomas [facility] Results CBC 2022-06-23 18:39:37 Dana Thomas [facility] MANUAL DIFFERENTIAL 2022-06-23 18:39:37 Dana Thomas [facility] PAIN MANAGEMENT 2022-06-19 14:08:16 Nolberto Stevens [facility] CANCER ANTIGEN 125 2022-05-26 14:02:00 Rhonda Carty [facility] COMPLETE BLOOD COUNT W/ 2022-05-26 14:02:00 Rhonda Carty [facility] DIFFERENTIAL [facility] BASIC METABOLIC PANEL, 2022-05-26 14:02:00 Rhonda Cart[facility] [place] [facility] CALCIUM TOTAL [facility] BILIRUBIN TOTAL 2022-05-26 14:02:00 Machelle Rhonda [facility] ALANINE AMINOTRANSFERASE 2022-05-26 14:02:00 Rhonda Carty [facility] ASPARTATE AMINOTRANSFERASE 2022-05-26 14:02:00 [facility] MAGNESIUM LEVEL 2022-05-26 14:02:00 Rhonda Carty [facility] [place] [facility] GLUCOSE LEVEL 2022-05-26 14:02:00 Rhonda Carty [facility] [place] [facility] BLOOD UREA NITROGEN 2022-05-26 14:02:00 Rh[facility] ELECTROLYTE PANEL 2022-05-26 14:02:00 Machelle Rhonda [facility] SERUM CREATININE 2022-05-26 14:02:00 Machelle [facility] .GLOMERULAR FILTRATION 2022-05-26 14:02:00 Rhonda Carty [facility] [place] [facility] RATE [facility] CALCIUM LEVEL TOTAL 2022-05-26 14:02:00 Rhonda [facility] Results CBC 2022-05-26 14:02:00 Rhonda Carty o f [facility] MANUAL DIFFERENTIAL 2022-05-26 14:02:00 Rhonda [facility] EKG, 12-LEAD (SCHEDULED) 2022-05-26 00:00:00 Rhonda Carty [facility] CANCER ANTIGEN 125 2022-04-26 12:19:00 Dana Thomas [facility] COMPLETE BLOOD COUNT W/ 2022-04-26 12:19:00 [facility] DIFFERENTIAL [facility] BASIC METABOLIC PANEL, 2022-04-26 12:19:00 Dana [facility] CALCIUM TOTAL [facility] BILIRUBIN TOTAL 2022-04-26 12:19:00 Dana Thomas [facility] ALANINE AMINOTRANSFERASE 2022-04-26 12:19:00 Dana Thomas [facility] ASPARTATE AMINOTRANSFERASE 2022-04-26 12:19:00 Dana Thomas [facility] MAGNESIUM LEVEL 2022-04-26 12:19:00 Dana Thomas [facility] GLUCOSE LEVEL 2022-04-26 12:19:00 Dana Thomas [facility] BLOOD UREA NITROGEN 2022-04-26 12:19:00 Dana Thomas [facility] ELECTROLYTE PANEL 2022-04-26 12:19:00 Dana Thomas [facility] SERUM CREATININE 2022-04-26 12:19:00 [facility] .GLOMERULAR FILTRATION 2022-04-26 12:19:00 Dana [facility] RATE [facility] CALCIUM LEVEL TOTAL 2022-04-26 12:19:00 Dana Thomas [facility] Results CBC 2022-04-26 12:19:00 Dana Thomas [facility] MANUAL DIFFERENTIAL 2022-04-26 12:19:00 Dana Thomas [facility] CT CHEST ABDOMEN PELVIS W 2022-04-20 18:27:43 Gabi Simon [facility] CONTRAST [facility] POC CREATININE 2022-04-20 17:39:00 Gabi Simon [place] [facility] ASSIGNMENT OF BENEFITS 2022-04-06 20:28:52 Doctor Unassigned, No [facility] CANCER ANTIGEN 125 2022-03-17 12:42:58 Christian Driver [facility] COMPLETE BLOOD COUNT W/ 2022-03-17 12:42:58 Christian Driver [facility] DIFFERENTIAL [facility] BASIC METABOLIC PANEL, 2022-03-17 12:42:58 Christian Driver [facility] CALCIUM TOTAL [facility] BILIRUBIN TOTAL 2022-03-17 12:42:58 Christian Driver [facility] ALANINE AMINOTRANSFERASE 2022-03-17 12:42:58 Christian Driver [facility] ASPARTATE AMINOTRANSFERASE 2022-03-17 12:42:58 Christian Driver [facility] MAGNESIUM LEVEL 2022-03-17 12:42:58 Christian Driver [place] [facility] GLUCOSE LEVEL 2022-03-17 12:42:58 Christian Driver [facility] BLOOD UREA NITROGEN 2022-03-17 12:42:58 Christian Driver [facility] ELECTROLYTE PANEL 2022-03-17 12:42:58 Christian Driver [facility] SERUM CREATININE 2022-03-17 12:42:58 Christian Driver [facility] .GLOMERULAR FILTRATION 2022-03-17 12:42:58 Christian Driver [facility] RATE [facility] CALCIUM LEVEL TOTAL 2022-03-17 12:42:58 [facility] Results CBC 2022-03-17 12:42:58 Neisha [facility] o f [facility] MANUAL DIFFERENTIAL 2022-03-17 12:42:58 Christian Driver [facility] EKG, 12-LEAD (SCHEDULED) 2022-03-17 00:00:00 Dana Thomas [facility] CANCER ANTIGEN 125 2022-02-17 16:57:28 Dana Thomas [facility] COMPLETE BLOOD COUNT W/ 2022-02-17 16:57:28 Dana [facility] DIFFERENTIAL [facility] BASIC METABOLIC PANEL, 2022-02-17 16:57:28 Dana [facility] CALCIUM TOTAL [facility] BILIRUBIN TOTAL 2022-02-17 16:57:28 Dana Thomas [facility] ALANINE AMINOTRANSFERASE 2022-02-17 16:57:28 Dana Thomas [facility] ASPARTATE AMINOTRANSFERASE 2022-02-17 16:57:28 Dana Thomas [facility] MAGNESIUM LEVEL 2022-02-17 16:57:28 Dana Thomas [facility] GLUCOSE LEVEL 2022-02-17 16:57:28 Dana Thomas [facility] BLOOD UREA NITROGEN 2022-02-17 16:57:28 Dana Thomas [facility] ELECTROLYTE PANEL 2022-02-17 16:57:28 Dana Thomas [facility] SERUM CREATININE 2022-02-17 16:57:28 [facility] .GLOMERULAR FILTRATION 2022-02-17 16:57:28 Dana Thomas [facility] [place] RATE [facility] CALCIUM LEVEL TOTAL 2022-02-17 16:57:28 Dana Thomas [facility] Results CBC 2022-02-17 16:57:28 Dana Thomas [facility] MANUAL DIFFERENTIAL 2022-02-17 16:57:28 Dana Thomas [facility] CANCER ANTIGEN 125 2022-02-10 15:36:00 Dana Thomas [facility] COMPLETE BLOOD COUNT W/ 2022-02-10 15:36:00 Dana [facility] DIFFERENTIAL [facility] BASIC METABOLIC PANEL, 2022-02-10 15:36:00 Dana Thomas [facility] [place] CALCIUM TOTAL [facility] BILIRUBIN TOTAL 2022-02-10 15:36:00 Dana Thomas [facility] ALANINE AMINOTRANSFERASE 2022-02-10 15:36:00 Dana Thomas [facility] ASPARTATE AMINOTRANSFERASE 2022-02-10 15:36:00 Dana Thomas [facility] MAGNESIUM LEVEL 2022-02-10 15:36:00 Dana Thomas [facility] GLUCOSE LEVEL 2022-02-10 15:36:00 Dana Thomas [facility] BLOOD UREA NITROGEN 2022-02-10 15:36:00 Dana Thomas [facility] ELECTROLYTE PANEL 2022-02-10 15:36:00 Dana Thomas [facility] SERUM CREATININE 2022-02-10 15:36:00 [facility] .GLOMERULAR FILTRATION 2022-02-10 15:36:00 Dana [facility] RATE [facility] CALCIUM LEVEL TOTAL 2022-02-10 15:36:00 Dana Thomas [facility] Results CBC 2022-02-10 15:36:00 Dana Thomas [facility] MANUAL DIFFERENTIAL 2022-02-10 15:36:00 Dana Thomas [facility] CANCER ANTIGEN 125 2022-01-13 11:51:00 Dana Thomas [facility] COMPLETE BLOOD COUNT W/ 2022-01-13 11:51:00 Dana Thomas [facility] DIFFERENTIAL [facility] BASIC METABOLIC PANEL, 2022-01-13 11:51:00 Dana Thomas iversity [facility] CALCIUM TOTAL [facility] BILIRUBIN TOTAL 2022-01-13 11:51:00 Dana Thomas [facility] ALANINE AMINOTRANSFERASE 2022-01-13 11:51:00 Dana Thomas [facility] ASPARTATE AMINOTRANSFERASE 2022-01-13 11:51:00 Dana Thomas [facility] MAGNESIUM LEVEL 2022-01-13 11:51:00 Dana Thomas [facility] GLUCOSE LEVEL 2022-01-13 11:51:00 Dana Thomas [facility] BLOOD UREA NITROGEN 2022-01-13 11:51:00 Dana Thomas [facility] ELECTROLYTE PANEL 2022-01-13 11:51:00 Dana Thomas [facility] SERUM CREATININE 2022-01-13 11:51:00 [facility] .GLOMERULAR FILTRATION 2022-01-13 11:51:00 Dana Thomas iversity [place] RATE [facility] CALCIUM LEVEL TOTAL 2022-01-13 11:51:00 Dana Thomas [facility] rsFormerly [facility] Results CBC 2022-01-13 11:51:00 Dana Thomas [facility] MANUAL DIFFERENTIAL 2022-01-13 11:51:00 Dana Thomas Univ [facility] PAIN MANAGEMENT 2022-01-05 18:24:08 Nolberto Stevens [facility] FLUOROSCOPY [facility] CT CHEST ABDOMEN PELVIS W 2021-12-30 16:23:53 Christian Driver [facility] [place] CONTRAST [facility] HEPATIC FUNCTION PANEL 2021-12-30 14:38:00 Christian Driver rsity of [facility] ALBUMIN LEVEL 2021-12-30 14:38:00 Christian Driver [place] [facility] ALANINE AMINOTRANSFERASE 2021-12-30 14:38:00 Christian Driver [facility] ASPARTATE AMINOTRANSFERASE 2021-12-30 14:38:00 Christian Driver [facility] TOTAL PROTEIN 2021-12-30 14:38:00 Christian Driver [place] [facility] FRACTIONATED BILIRUBIN 2021-12-30 14:38:00 Christian Driver [facility] rsity of [facility] ALKALINE PHOSPHATASE 2021-12-30 14:38:00 Christian Driver [facility] ity of [facility] POC CREATININE 2021-12-30 14:37:00 Christian Driver [place] [facility] US ABDOMEN LIMITED 2021-12-30 14:00:00 Christian Driver [facility] CANCER ANTIGEN 125 2021-12-23 16:48:00 Christian Driver [facility] COMPLETE BLOOD COUNT W/ 2021-12-23 16:48:00 Christian Driver [facility] [place] DIFFERENTIAL [facility] BASIC METABOLIC PANEL, 2021-12-23 16:48:00 Christian Driver [facility] [facility] [place] CALCIUM TOTAL [facility] BILIRUBIN TOTAL 2021-12-23 16:48:00 [facility] ALANINE AMINOTRANSFERASE 2021-12-23 16:48:00 Christian Driver Uni versFormerly [facility] ASPARTATE AMINOTRANSFERASE 2021-12-23 16:48:00 Christian Drivre U niversFormerly [facility] MAGNESIUM LEVEL 2021-12-23 16:48:00 Christian Driver [place] [facility] GLUCOSE LEVEL 2021-12-23 16:48:00 Christian Driver [place] [facility] BLOOD UREA NITROGEN 2021-12-23 16:48:00 [facility] ELECTROLYTE PANEL 2021-12-23 16:48:00 Neisha [facility] SERUM CREATININE 2021-12-23 16:48:00 Neisha [facility] .GLOMERULAR FILTRATION 2021-12-23 16:48:00 Christian Driver [facility] of [place] RATE [facility] CALCIUM LEVEL TOTAL 2021-12-23 16:48:00 [facility] Results CBC 2021-12-23 16:48:00 Neisha [facility] MANUAL DIFFERENTIAL 2021-12-23 16:48:00 [facility] EKG, 12-LEAD (SCHEDULED) 2021-12-14 00:00:00 Neelam Grant [facility] COMBINED RIGHT AND LEFT 2021-11-28 16:10:48 Oralia Nash [facility] HEART CATH [facility] POC OXIMETRY VENOUS 2021-11-28 15:44:00 Oralia [facility] POC OXIMETRY ARTERIAL 2021-11-28 15:35:00 Oralia Nash [facility] POC GLUCOSE SCREEN 2021-11-28 14:47:00 Oralia Nash [facility] TYPE AND SCREEN 2021-11-28 13:41:00 [facility] ABORH 2021-11-28 13:41:00 [facility] ANTIBODY SCREEN 2021-11-28 13:41:00 [facility] TMP INTERPRETATION 2021-11-28 13:41:00 Hudson Tsar [facility] ANTIBODY SCREEN NEGATIVE MD Ferraro [facility] CLOT EXPIRATION DATE 2021-11-28 13:41:00 Star Treviño [facility] ECHOCARDIOGRAM 2D COMPLETE 2021-11-21 13:51:[address] [facility] GENERAL LABORATORY ADD ON 2021-11-18 19:50:00 Susan Baird [facility] TEST [facility] COVID-19 (SARS-COV-2) 2021-11-18 18:07:00 Dana Thomas [facility] PCR-ASYMPTOMATIC [facility] URINE CULTURE 2021-11-18 17:36:00 Dana Thomas [facility] URINALYSIS WITH 2021-11-18 17:36:00 Dana Thomas [facility] MICROSCOPIC IF INDICATED MD Ferraro [facility] URINALYSIS MICROSCOPIC 2021-11-18 17:36:00 Dana Thomas Un iversFormerly [facility] CANCER ANTIGEN 125 2021-11-18 17:23:00 Dana Thomas Univer sity [facility] COMPLETE BLOOD COUNT W/ 2021-11-18 17:23:00 Dana Thomas [facility] DIFFERENTIAL [facility] COMPREHENSIVE METABOLIC 2021-11-18 17:23:00 Dana Thomas [facility] PANEL [facility] PROTHROMBIN TIME 2021-11-18 17:23:00 [facility] APTT 2021-11-18 17:23:00 Dana Thomas [facility] Results CBC 2021-11-18 17:23:00 Dana Thomas [facility] MANUAL DIFFERENTIAL 2021-11-18 17:23:00 Dana Thomas [facility] GLUCOSE LEVEL 2021-11-18 17:23:00 Dana Thomas [facility] BLOOD UREA NITROGEN 2021-11-18 17:23:00 Dana Thomas [facility] ELECTROLYTE PANEL 2021-11-18 17:23:00 Dana Thomas [facility] SERUM CREATININE 2021-11-18 17:23:00 [facility] .GLOMERULAR FILTRATION 2021-11-18 17:23:00 Dana [facility] CALCI[facility] LEVEL TOTAL 2021-11-18 17:23:00 Dana Thomas [facility] ALBUMIN LEVEL 2021-11-18 17:23:00 Dana Thomas [facility] ALKALINE PHOSPHATASE 2021-11-18 17:23:00 Dana Thomas [facility] ALANINE AMINOTRANSFERASE 2021-11-18 17:23:00 Dana Thoams [facility] ASPARTATE AMINOTRANSFERASE 2021-11-18 17:23:00 Dana Thomas [facility] TOTAL PROTEIN 2021-11-18 17:23:00 Dana Thomas [facility] FRACTIONATED BILIRUBIN 2021-11-18 17:23:00 Dana Thomas Un iversFormerly [facility] THYROID STIMULATING 2021-11-18 17:23:00 Dana Thomas [facility] HORMONE [facility] FREE THYROXINE 2021-11-18 17:23:00 Dana Thomas [facility] TYPE AND SCREEN 2021-11-18 17:15:00 Dana Thomas [facility] HEMOGLOBIN A1C 2021-11-18 17:15:00 Dana Thomas [facility] ABORH 2021-11-18 17:15:00 Dana Thomas [facility] ANTIBODY SCREEN 2021-11-18 17:15:00 Dana Thomas [facility] TMP INTERPRETATION 2021-11-18 17:15:00 Dana Thomas [facility] ANTIBODY SCREEN NEGATIVE MD Ferraro [facility] CLOT EXPIRATION DATE 2021-11-18 17:15:00 Dana Thomas [facility] EKG, 12-LEAD (SCHEDULED) 2021-11-16 00:00:00 Los Gonsalez [facility] US BREAST COMPLETE 2021-11-04 19:27:00 Christian Driver [facility] BILATERAL [facility] US CHEST 2021-11-04 19:27:00 Christian Driver [place] [facility] MAMMO DIGITAL DIAGNOSTIC 2021-11-04 18:27:05 Christian Driver [facility] BILATERAL W OSWALDO [facility] HP MD MICROSATELLITE 2021-10-27 01:03:00 Dana Thomas [facility] INSTABILITY (MSI) ANALYSIS MD Jazmin ackerman Cancer INTERPRETATION AND REPORT Center IR CT GUIDED BIOPSY PELVIC 2021-10-25 19:03:06 Dana Thomas [facility] NON-BONE [facility] CYTOLOGY IMAGE-GUIDED FNA 2021-10-25 18:08:00 Dana Thomas [facility] INTERPRETATION [facility] PATHOLOGY BIOPSY 2021-10-25 18:07:00 Dana Thomas [facility] INTERPRETATION [facility] EKG, 12-LEAD (PORTABLE) 2021-10-25 00:00:00 Genaro Mcclelland [facility] COMPLETE BLOOD COUNT W/ 2021-10-24 15:56:00 Ting [facility] DIFFERENTIAL [facility] CARBON DIOXIDE LEVEL 2021-10-24 15:56:00 Ting [facility] CHLORIDE LEVEL 2021-10-24 15:56:00 Ting [facility] SODIUM LEVEL 2021-10-24 15:56:00 Gonsalez, [facility] POTASSIUM LEVEL 2021-10-24 15:56:00 Ting [facility] SERUM CREATININE 2021-10-24 15:56:00 Ting [facility] BLOOD UREA NITROGEN 2021-10-24 15:56:00 Ting [facility] PROTHROMBIN TIME 2021-10-24 15:56:00 Ting [facility] GLUCOSE, RANDOM 2021-10-24 15:56:00 Ting [facility] TYPE AND SCREEN 2021-10-24 15:56:00 Ting [facility] Results CBC 2021-10-24 15:56:00 Ting [facility] MANUAL DIFFERENTIAL 2021-10-24 15:56:00 Ting [facility] SERUM CREATININE 2021-10-24 15:56:00 Ting [facility] .GLOMERULAR FILTRATION 2021-10-24 15:56:00 Los Gonsalez [facility] RATE [facility] ABORH 2021-10-24 15:56:00 Ting [facility] ANTIBODY SCREEN 2021-10-24 15:56:00 Ting [facility] ANION GAP 2021-10-24 15:56:00 Ting [facility] o f [facility] TMP INTERPRETATION 2021-10-24 15:56:00 Ting [facility] ANTIBODY SCREEN NEGATIVE MD Ferraro [facility] CLOT EXPIRATION DATE 2021-10-24 15:56:00 Gonsalez, [facility] COVID-19 (SARS-COV-2) 2021-10-24 15:53:00 Fermin Hoffman [facility] PCR-ASYMPTOMATIC [facility] AP IHC MSI (MLH1, MSH2, 2021-10-16 22:50:59 Dana Thomas U [facility] MSH6, PMS2) MATERIAL [facility] REQUEST [place] AP IHC HER2/KIMMIE MATERIAL 2021-10-16 22:50:59 Dana Thomas [facility] REQUEST [facility] AP MSI BY PCR MATERIAL 2021-10-16 22:50:59 Dana Thomas [facility] REQUEST [facility] CT CHEST ABDOMEN PELVIS W 2021-10-13 14:37:33 [facility] POC CREATININE 2021-10-13 13:55:00 Christian Driver [facility] OSI BONE DENSITY STUDY 2021-10-07 22:29:00 Mateo Chavez [facility] OSI MAMMO BILATERAL 2021-10-07 22:29:00 Mateo Chavez [facility] PATHOLOGY BIOPSY 2021-09-30 19:11:00 Christian Driver [facility] INTERPRETATION [facility] CANCER ANTIGEN 125 2021-09-30 17:35:00 Christian Driver [facility] Plan of Care Planned Activity Planned Date Details Comments Source Future Scheduled 2022-08-15 COVID-19 Vaccination [facility] Test 09:29:04 (3 - Mixed Product MD Medrano on Cancer risk series) [code = Center COVID-19 Vaccination (3 - Mixed Product risk series)] Encounters Start End Encounter Admission Attending Care Care Encounter Source Date/Time Date/Time Type Type Clinicians Facility Department ID 2022-08-15 Outpatient SYSTEM, MDA DILLON [id number] 12:20:21 PROVIDER Mitchell o susana 2022-07-05 Outpatient SYSTEM, DILLON CARRANZA [id number] 10:19:02 PROVIDER Mitchell o susana 2022-03-22 Outpatient SYSTEM, MDA [facility] [id number] 12:14:32 PROVIDER Mitchell o susana 2021-12-16 Outpatient SYSTEM, DILLON CARRANZA [id number] 13:07:24 PROVIDER Mitchell o susana 2021-11-07 Outpatient SYSTEM, MDA [facility] [id number] 11:25:34 PROVIDER Mitchell o susana 2021-11-04 Inpatient DILLON THOMAS [id number] 16:17:09 DANA Medrano o susana 2021-10-19 [facility] [id number] Common 14:40:33 [facility] 2022-08-14 2022-08-14 Follow-Up Yuki Stevens2.840.1 [id number] [facility] 09:00:00 09:30:00 Nolberto Negrete 34317.1.1 it y of 3.412.2.7 [place] .3.220186 .8 [facility] 2022-08-14 2022-08-14 Outpatient EL DILLON STEVENS MDA [id number] 09:06:14 09:06:14 NOLBERTO meza 2022-08-14 2022-08-14 Travel 1.2.840.1 1.2.610.157 [id number] [facility] 00:00:00 00:00:00 21823.1.1 350.1.13.41 ity of 3.412.2.[place].698 [place] .3.885110 084.8 .8 [facility] 2022-07-21 2022-07-21 Office Dana Thomas.2.840.1 [id number] [facility] 12:00:00 12:24:13 Visit Rhonda Carty 85027.1.1 ity of 3.412.2.7 [place] .3.601202 MD Barajas [facility] 2022-07-21 2022-07-21 Outpatient KYLER THOMAS MDA MDA [id number] 11:17:28 12:24:13 DANA Mitchelldali meza 2022-07-21 2022-07-21 Outpatient KYLER THOMAS MDA MDA [id number] 10:47:03 11:10:48 DANA meza 2022-07-21 2022-07-21 Outpatient KYLER THOMAS MDA MDA [id number] 10:12:51 10:21:44 DANA meza 2022-07-21 2022-07-21 Travel 1.2.840.1 1.2.003.353 [id number] Univers 00:00:00 00:00:00 85979.1.1 350.1.13.41 ity of 3.412.2.[place]7.3.698 [place] .3.843418 084.8 MD Sainz8 [facility] 2022-07-20 2022-07-20 Ancillary 1.2.840.1 [id number] [facility] 08:00:00 10:30:00 Procedure 39632.1.1 it y of 3.412.2.7 [place] .3.034789 MD Barajas [facility] 2022-07-20 2022-07-20 Outpatient [facility] MDA [id number] 08:16:39 08:16:39 Mitchell meza 2022-07-20 2022-07-20 Travel 1.2.840.1 1.2.592.678 [id number] [facility] 00:00:00 00:00:00 52060.1.1 350.1.13.41 ity of 3.412.2.[place].3.698 [place] .3.844607 084.8 MD Barajas [facility] 2022-06-23 2022-06-23 Outpatient KYLER THOMAS [facility] MDA [id number] 14:24:42 16:55:04 DANA meza 2022-06-23 2022-06-23 Infusion Dana Thomas 1.2.840.1 [id number] [facility] 14:15:00 16:55:04 Chloe Pablo 39383.1.1 ity of 3.412.2.7 [place] .3.047124 MD Barajas [facility] 2022-06-23 2022-06-23 Outpatient KYLER THOMAS MDA [facility] [id number] 13:46:16 15:08:09 DANA meza 2022-06-23 2022-06-23 Office Dana Thomas 1.2.840.1 [id number] [facility] 13:30:00 15:08:09 Visit Gabi Simon 26712.1.1 ity of 3.412.2.7 [place] .3.787796 MD Barajas [facility] 2022-06-23 2022-06-23 Outpatient KYLER THOMAS MDA [facility] [id number] 13:09:31 13:38:18 DANA meza 2022-06-23 2022-06-23 Travel 1.2.840.1 1.2.974.868 [id number] Univers 00:00:00 00:00:00 32968.1.1 350.1.13.41 ity of 3.412.2.[place]7.3.698 [place] .3.319143 084.8 MD Barajas [facility] 2022-06-20 2022-06-20 Melonie Carty 1.2.840.1 [id number] Univers 00:00:00 00:00:00 Only Rhonda 15437.1.1 ity of 3.412.2.7 [place] .3.664257 MD Barajas [facility] 2022-06-20 2022-06-20 Melonie Thomas 1.2.840.1 [id number] Univers 00:00:00 00:00:00 Only Dana Cali 83154.1.1 it y of 3.412.2.7 [place] .3.855844 MD Barajas [facility] 2022-06-19 2022-06-19 Procedure Jhonatan, 1.2.840.1 [id number] Univers 09:00:00 10:03:04 visit Nolberto Negrete 90453.1.1 it y of 3.412.2.7 [place] .3.868602 MD Barajas [facility] 2022-06-19 2022-06-19 Outpatient KYLER STEVENS DILLON MDA [id number] 08:55:34 10:03:04 NOLBERTOOrly fraser susana 2022-06-19 2022-06-19 Outpatient KYLER STEVENS DILL[facility] MDA [id number] 09:08:16 09:08:16 NOLBERTOOrly Medrano susana 2022-06-19 2022-06-19 Travel 1.2.840.1 1.2.207.583 [id number] Univers 00:00:00 00:00:00 32516.1.1 350.1.13.41 ity of 3.412.2.[place]7.3.698 [place] .3.439563 084.8 MD Sainz8 [facility] 2022-06-16 2022-06-16 Telephone Jenae, 1.2.840.1 [id number] Univers 00:00:00 00:00:00 Kathleen Castaneda 94858.1.1 it y of 3.412.2.7 [place] .3.471712 MD Barajas [facility] 2022-05-31 2022-05-31 Telephone Jenae, 1.2.840.1 [id number] Univers 00:00:00 00:00:00 Kathleen May 90586.1.1 it y of 3.412.2.7 [place] .3.550610 MD Barajas [facility] 2022-05-26 2022-05-26 Infusion Dana Thomas 1.2.840.1 [id number] Univers 12:30:00 14:58:20 Vickie Graves 97256.1.1 ity of 3.412.2.7 [place] .3.739088 MD Karl Medrano [facility] 2022-05-26 2022-05-26 Outpatient KYLER THOMAS [facility] [id number] 11:36:43 14:58:20 DANA Mitchelldali meza 2022-05-26 2022-05-26 [facility] Martha, 1.2.840.1 [id number] [facility] 11:00:00 11:37:32 Visit Dana Cali 57445.1.1 it y of 3.412.2.7 [place] .3.966849 MD Barajas [facility] 2022-05-26 2022-05-26 Outpatient MARTHA [facility] MDA [id number] 09:52:56 11:37:32 DANA Mitchelldali meza 2022-05-26 2022-05-26 Outpatient MARTHA [facility] MDA [id number] 09:18:40 09:51:40 DANA Mitchelldali meza 2022-05-26 2022-05-26 [facility] [id number] MD 09:02:11 09:16:35 DANA Mitchelldali meza 2022-05-26 2022-05-26 Orders Machelle, 1.2.840.1 [id number] Univers 00:00:00 00:00:00 Only Rhonda 72508.1.1 ity of 3.412.2.7 [place] .3.356008 MD Barajas [facility] 2022-05-26 2022-05-26 [facility] Thomas, 1.2.840.1 [id number] Univers 00:00:00 00:00:00 Only Dana Cali 97133.1.1 it y of 3.412.2.7 [place] .3.570748 MD Barajas [facility] 2022-05-26 2022-05-26 Travel 1.2.840.1 1.2.503.007 [id number] Univers 00:00:00 00:00:00 36260.1.1 350.1.13.41 ity of 3.412.2.7 [place]7.3.698 [place] .3.439046 084.8 .8 [facility] 2022-05-26 2022-05-26 Melonie Carty, 1.2.840.1 [id number] Univers 00:00:00 00:00:00 Only Rhonda 57455.1.1 ity of 3.412.2.7 [place] .3.957553 MD Sainz8 [facility] 2022-05-25 2022-05-25 Melonie Thomas, 1.2.840.1 [id number] Univers 00:00:00 00:00:00 Only Dana Cali 85604.1.1 it y of 3.412.2.7 [place] .3.176978 MD Sainz8 [facility] 2022-05-15 2022-05-15 Outpatient KYLER STEVENS MDA MDA [id number] 10:03:26 12:10:36 NOLBERTO meza 2022-05-15 2022-05-15 Office Hailey Stevens.2.840.1 [id number] [facility] 09:30:00 12:10:36 Visit Nolberto Negrete 81092.1.1 it y of 3.412.2.7 [place] .3.173946 MD Sainz8 [facility] 2022-05-15 2022-05-15 Travel 1.2.840.1 1.2.827.294 [id number] Univers 00:00:00 00:00:00 62620.1.1 350.1.13.41 ity of 3.412.2.7 [place]7.3.698 [place] .3.231271 084.8 MD Sainz8 [facility] 2022-04-26 2022-04-26 Outpatient KYLER THOMAS MDA MDA [id number] 10:05:08 14:16:37 DANA meza 2022-04-26 2022-04-26 Dana Gonzalez 1.2.840.1 [id number] [facility] 10:00:00 14:16:37 Estee Bailon 73975.1.1 ity of 3.412.2.7 [place] .3.972182 MD Sainz8 [facility] 2022-04-26 2022-04-26 Roxanne Thomas, 1.2.840.1 [id number] [facility] 08:30:00 09:06:53 Visit Dana Cali 30072.1.1 it y of 3.412.2.7 [place] .3.925611 MD Sainz8 [facility] 2022-04-26 2022-04-26 Outpatient KYLER THOMAS MDA MDA [id number] 07:49:56 09:06:53 DANA Mitchell bria meza 2022-04-26 2022-04-26 Outpatient KYLER THOMAS MDA MDA [id number] 07:19:11 07:45:00 DANA Mitchell bria meza 2022-04-26 2022-04-26 Melonie Thomas, 1.2.840.1 [id number] Univers 00:00:00 00:00:00 Only Dana Cali 96653.1.1 it y of 3.412.2.7 [place] .3.215487 MD Sainz8 [facility] 2022-04-26 2022-04-26 Travel 1.2.840.1 1.2.476.444 [id number] Univers 00:00:00 00:00:00 93340.1.1 350.1.13.41 ity of 3.412.2.7 [place]7.3.698 [place] .3.688843 084.8 MD Sainz8 [facility] 2022-04-25 2022-04-25 Melonie Thomas, 1.2.840.1 [id number] Univers 00:00:00 00:00:00 Only Dana Cali 82532.1.1 it y of 3.412.2.7 [place] .3.852773 MD Barajas [facility] 2022-04-20 2022-04-20 Ancillary Gabi Simon 1.2.840.1 [id number] Univers 12:30:00 14:55:00 Procedure 77435.1.1 it y of 3.412.2.7 [place] .3.778679 .8 [facility] 2022-04-20 2022-04-20 Outpatient EL ALFRED GABI [facility] [id number] 12:07:41 12:07:41 Mitchell bria meza 2022-04-20 2022-04-20 Travel 1.2.840.1 1.2.928.617 [id number] Univers 00:00:00 00:00:00 68325.1.1 350.1.13.41 ity of 3.412.2.7 [place]7.3.698 [place] .3.068189 084.8 MD Sainz8 [facility] 2022-04-11 2022-04-11 Orders Gabi Simon 1.2.840.1 [id number] Univers 00:00:00 00:00:00 Only 76053.1.1 ity of 3.412.2.7 [place] .3.304505 MD Sainz8 [facility] 2022-04-11 2022-04-11 Telephone Deborah, 1.2.840.1 [id number] Univers 00:00:00 00:00:00 December L 82320.1.1 ity of 3.412.2.7 [place] .3.949986 MD Barajas [facility] 2022-04-07 2022-04-07 Telephone Pcp, [facility] 1.2.814.927 [id number] Univers 00:00:00 00:00:00 Patient HEALTH 350.1.13.10 it y of Does Not [facility] [place] NASEEM?BLEA [id number] [address] MEDICAL OFFICE BUILDING 2022-04-06 2022-04-06 Laboratory Only, Ang Db Test [facility] 1.2.8 40.114 [id number] Univers 15:30:00 15:36:43 Only Claudette Rania HEALTH 350.1.13.10 ity of [place] 4.2.7.2.686 [place] as NASEEM?BLEA [id number] [address] MEDICAL OFFICE BUILDING 2022-04-06 2022-04-06 Outpatient R CLAUDETTE, [facility] [id number] Univers 15:30:00 15:30:[address] [facility] 2022-04-06 2022-04-06 Orders Doctor MELVA 1.2.840.114 [id number] Univers 00:00:00 00:00:00 Only Unassigned, THAD 350.1.13.10 ity of [place] [facility] 4.2.7.2.686 [place] as [id number] [address] 2022-03-17 2022-03-17 Infusion Dana Thomas 1.2.840.1 [id number] [facility] 14:15:00 16:46:00 Fior Valverde 48949.1.1 ity of 3.412.2.7 [place] .3.511713 .8 Mateo meza [facility] 2022-03-17 2022-03-17 Outpatient KYLER THOMAS MDA MDA [id number] 10:33:50 16:46:00 DANA meza 2022-03-17 2022-03-17 Office Dana Thomas 1.2.840.1 [id number] [facility] 10:00:00 11:52:21 Visit Gabi Simon 66281.1.1 ity of 3.412.2.7 [place] .3.252628 .8 [facility] 2022-03-17 2022-03-17 Outpatient KYLER THOMAS MDA MDA [id number] 09:02:49 11:52:21 DANA meza 2022-03-17 2022-03-17 Outpatient KYLER THOMAS MDA MDA [id number] 08:00:09 11:33:23 DANA meza 2022-03-17 2022-03-17 Outpatient KYLER DRIVER MDA MDA [id number] 07:23:32 07:36:42 CHRISTIAN meza 2022-03-17 2022-03-17 Travel 1.2.840.1 1.2.505.120 1128 [id number] Univers 00:00:00 00:00:00 71169.1.1 350.1.13.41 ity of 3.412.2.[place]3.698 [place] .3.319050 084.8 MD Sainz8 [facility] 2022-03-15 2022-03-15 Melonie Thomas, 1.2.840.1 [id number] [id number] Univers 00:00:00 00:00:00 Only Dana Cali 08878.1.1 it y of 3.412.2.7 [place] .3.648041 MD Sainz8 [facility] 2022-03-12 2022-03-12 Radha Nash 1.2.840.1 [id number] 3938 Univers 00:00:00 00:00:00 Oralia 54270.1.1 ity of 3.412.2.7 [place] .3.754507 MD Sainz8 [facility] 2022-03-09 2022-03-09 Melonie Driver 1.2.840.1 [id number] Univers 00:00:00 00:00:00 Only Christian 69160.1.1 ity of 3.412.2.7 [place] .3.113257 MD Sainz8 [facility] 2022-03-01 2022-03-01 Radha Stevens 1.2.840.1 [id number] 5161 Univers 00:00:00 00:00:00 Nolberto Negrete 36267.1.1 it y of 3.412.2.7 [place] .3.655840 MD Barajas [facility] 2022-02-17 2022-02-17 Dana Gonzalez 1.2.840.1 [id number] Univers 12:30:00 15:19:57 Vickie Graves 18068.1.1 ity of 3.412.2.7 [place] .3.733775 MD Barajas [facility] 2022-02-17 2022-02-17 Melonie Thomas 1.2.840.1 [id number] 12304 Univers 00:00:00 00:00:00 Only Dana Cali 17086.1.1 it y of 3.412.2.7 [place] .3.925390 MD Barajas [facility] 2022-02-17 2022-02-17 Travel 1.2.840.1 1.2.072.898 9405 [id number] Univers 00:00:00 00:00:00 68289.1.1 350.1.13.41 ity of 3.412.2.[place].3.698 [place] .3.330273 084.8 MD Barajas [facility] 2022-02-10 2022-02-10 Office Dana Thomas 1.2.840.1 [id number] Univers 11:00:00 11:30:00 Visit Gabi Simon 33187.1.1 ity of 3.412.2.7 [place] .3.682440 MD [facility]ajas [facility] 2022-02-10 2022-02-10 Travel 1.2.840.1 1.2.958.789 6724 [id number] Univers 00:00:00 00:00:00 33764.1.1 350.1.13.41 ity of 3.412.2.7 [place]7.3.698 [place] .3.873060 084.8 MD Barajas [facility] 2022-02-10 2022-02-10 Melonie Driver 1.2.840.1 [id number] Univers 00:00:00 00:00:00 Only Christian 53589.1.1 ity of 3.412.2.7 [place] .3.216488 MD Barajas [facility] 2022-02-09 2022-02-09 Office Jhonatan 1.2.840.1 [id number] Univers 09:30:00 10:00:00 Visit Nolberto Negrete 23765.1.1 it y of 3.412.2.7 [place] .3.356027 MD [facility]ajas [facility] 2022-02-09 2022-02-09 Melonie Thomas 1.2.840.1 [id number] [id number] Univers 00:00:00 00:00:00 Only Dana Cali 38318.1.1 it y of 3.412.2.7 [place] .3.815902 MD Sainz8 [facility] 2022-02-09 2022-02-09 Travel 1.2.840.1 1.2.166.485 5532 535763 Univers 00:00:00 00:00:00 24732.1.1 350.1.13.41 ity of 3.412.2.7 [place]7.3.698 [place] .3.650723 084.8 MD Sainz8 [facility] 2022-01-24 2022-01-24 Telephone Stevan, 1.2.840.1 [id number] 1092 [id number] Univers 00:00:00 00:00:00 Cherrie Burnett 05112.1.1 it y of 3.412.2.7 [place] .3.341770 MD Barajas [facility] 2022-01-13 2022-01-13 [facility] Martha, 1.2.840.1 [id number] 1091 [id number] Univers 10:45:00 12:24:32 Dana Cali 28870.1.1 it y of 3.412.2.7 [place] .3.179994 MD Barajas [facility] 2022-01-13 2022-01-13 Outpatient KYLER THOMAS MDA MDA [id number] 09:54:28 12:24:32 DANA meza 2022-01-13 2022-01-13 Office Martha, 1.2.840.1 [id number] [facility] 08:00:00 09:23:12 Visit Dana Cali 00728.1.1 it y of 3.412.2.7 [place] .3.777713 MD Barajas [facility] 2022-01-13 2022-01-13 Outpatient KYLER THOMAS MDA MDA [id number] 07:34:42 09:23:12 DANA meza 2022-01-13 2022-01-13 Outpatient KYLER THOMAS MDA MDA [id number] 06:51:34 07:14:03 DANA meza 2022-01-13 2022-01-13 Travel 1.2.840.1 1.2.584.136 8082 [id number] Univers 00:00:00 00:00:00 53434.1.1 350.1.13.41 ity of 3.412.2.[place].3.698 [place] .3.766402 084.8 .8 [facility] 2022-01-12 2022-01-12 Melonie Driver, 1.2.840.1 [id number] Univers 00:00:00 00:00:00 Only Christian 84866.1.1 ity of 3.412.2.7 [place] .3.533420 MD Sainz8 [facility] 2022-01-12 2022-01-12 Melonie Thomas, 1.2.840.1 [id number] [id number] Univers 00:00:00 00:00:00 Only Dana Cali 98405.1.1 it y of 3.412.2.7 [place] .3.765810 MD Sainz8 [facility] 2022-01-05 2022-01-05 Outpatient KYLER STEVENS MDA MDA [id number] 13:21:42 14:36:13 NOLBERTO meza 2022-01-05 2022-01-05 Rajiv Stevens 1.2.840.1 [id number] [facility] 13:00:00 14:36:13 visit Nolberto Negrete 57346.1.1 it y of 3.412.2.7 [place] .3.530766 MD Sainz8 [facility] 2022-01-05 2022-01-05 Outpatient KYLER STEVENS MDA MDA [id number] 13:24:08 13:24:08 NOLBERTO meza 2022-01-05 2022-01-05 Travel 1.2.840.1 1.2.629.724 2861 [id number] Univers 00:00:00 00:00:00 29096.1.1 350.1.13.41 ity of 3.412.2.7 [place]7.3.698 [place] .3.052403 084.8 .8 [facility] 2021-12-30 2021-12-30 Telemsarahy Thomas, 1.2.840.1 [id number] [facility] 13:30:00 14:00:00 jay Cali 28640.1.1 it y of 3.412.2.7 [place] .3.894922 .8 [facility] 2021-12-30 2021-12-30 Outpatient KYLER THOMAS, [facility] MDA [id number] 12:28:59 12:28:59 DANA meza 2021-12-30 2021-12-30 Louise Driver 1.2.840.1 [id number] [id number] [facility] 09:45:00 12:10:00 Rajiv Gonzales 13173.1.1 it y of 3.412.2.7 [place] .3.218266 .8 [facility] 2021-12-30 2021-12-30 Outpatient NEISHA [facility] MDA [id number] 09:01:22 09:01:22 CHRISTIAN meza 2021-12-30 2021-12-30 Louise Driver 1.2.840.1 [id number] [id number] [facility] 07:45:00 08:45:00 Rajiv Gonzales 19736.1.1 it y of 3.412.2.7 [place] .3.700217 .Radha Medrano susana [facility] 2021-12-30 2021-12-30 Outpatient KYLER DRIVER [facility] MDA [id number] 08:09:31 08:09:31 CHRISTIAN meza 2021-12-30 2021-12-30 Outpatient [facility] MDA [id number] MD 08:09:00 08:09:00 CHRISTIAN meza 2021-12-30 2021-12-30 Travel 1.2.840.1 1.2.621.077 3241 [id number] Univers 00:00:00 00:00:00 34946.1.1 350.1.13.41 ity of 3.412.2.7 [place]7.3.698 [place] .3.751741 084.8 MD Sainz8 [facility] 2021-12-29 2021-12-29 Telephone Jenae, 1.2.840.1 [id number] [id number] Univers 00:00:00 00:00:00 Kathleen May 43189.1.1 it y of 3.412.2.7 [place] .3.561218 MD Sainz8 [facility] 2021-12-28 2021-12-28 Melonie Driver 1.2.840.1 [id number] Univers 00:00:00 00:00:00 Only Christian 32569.1.1 ity of 3.412.2.7 [place] .3.979756 MD Sainz8 [facility] 2021-12-26 2021-12-26 Melonie Driver 1.2.840.1 [id number] Univers 00:00:00 00:00:00 Only Christian 00664.1.1 ity of 3.412.2.7 [place] .3.002255 MD Sainz8 [facility] 2021-12-26 2021-12-26 Telephone Jenae, 1.2.840.1 [id number] [id number] Univers 00:00:00 00:00:00 Kathleen May 08792.1.1 it y of 3.412.2.7 [place] .3.231995 MD Barajas [facility] 2021-12-26 2021-12-26 Melonie Stevens 1.2.840.1 [id number] Univers 00:00:00 00:00:00 Only Nolberto Negrete 16480.1.1 it y of 3.412.2.7 [place] .3.088906 MD Barajas [facility] 2021-12-23 2021-12-23 Roxanne Stevens 1.2.840.1 [id number] 6878 Univers 15:00:00 16:00:00 Visit Nolberto Negrete 10222.1.1 it y of 3.412.2.7 [place] .3.730079 .8 [facility] 2021-12-23 2021-12-23 Office Neisha, 1.2.840.1 [id number] 0237 Univers 13:30:00 14:00:00 Visit Christian 43291.1.1 ity of 3.412.2.7 [place] .3.717940 .8 [facility] 2021-12-23 2021-12-23 Outpatient KYLER DRIVER [facility] MDA [id number] 11:48:07 12:10:51 CHRISTIAN meza 2021-12-23 2021-12-23 Outpatient KYLER STEVENS [facility] MDA [id number] MD 11:56:16 11:56:16 NOLBERTO meza 2021-12-23 2021-12-23 Outpatient KYLER DRIVER [facility] MDA [id number] MD 11:55:41 11:55:41 CHRISTIAN meza 2021-12-23 2021-12-23 Travel 1.2.840.1 1.2.177.075 7826 [id number] Univers 00:00:00 00:00:00 37397.1.1 350.1.13.41 ity of 3.412.2.7 [place]7.3.698 [place] .3.100291 084.8 .8 [facility] 2021-12-21 2021-12-21 Documentat Mirna, 1.2.840.1 [id number] Univers 00:00:00 00:00:00 ion Maeadeline 74581.1.1 i ty of M 3.412.2.7 [place] .3.876514 .8 [facility] 2021-12-20 2021-12-20 Outpatient KYLER DRIVER [facility] MDA [id number] MD 16:14:40 16:14:40 CHRISTIAN meza 2021-12-16 2021-12-16 Telemedici Neisha, 1.2.840.1 [id number] Univers 14:30:00 15:00:00 ne Christian 21694.1.1 ity of 3.412.2.7 [place] .3.773820 MD Barajas [facility] 2021-12-13 2021-12-13 Outpatient KYLER GRANT [facility] [id number] MD 15:12:24 23:59:00 NEELAM Batista [facility] 2021-12-13 2021-12-13 [facility] Grant 1.2.840.1 [id number] [facility] 15:12:24 23:59:00 Encounter Neelam 24808.1.1 i ty of 3.412.2.7 [place] .3.922059 MD Sainz8 [facility] 2021-12-13 2021-12-13 Outpatient KYLER YINAN [facility] [id number] 13:56:30 15:20:07 ORALIA Medrano [facility] 2021-12-13 2021-12-13 Follow-Up Oralia Nash 1.2.840.1 [id number] [facility] 13:30:00 15:20:07 Neelam Grant 80769.1.1 ity of 3.412.2.7 [place] .3.965829 MD Barajas [facility] 2021-12-13 2021-12-13 Travel 1.2.840.1 1.2.228.719 9213 [id number] Univers 00:00:00 00:00:00 44764.1.1 350.1.13.41 ity of 3.412.2.7 [place]7.3.698 [place] .3.382494 084.8 MD Barajas [facility] 2021-12-12 2021-12-12 Haydee Driver 1.2.840.1 [id number] 1090 [id number] Univers 00:00:00 00:00:00 Christian 56252.1.1 ity of 3.412.2.7 [place] .3.218887 MD Barajas [facility] 2021-12-07 2021-12-07 MargretedicDana Valadez 1.2.840.1 10 [id number] Univers 14:00:00 14:30:00 Christian Greenfield 57167.1.1 ity of 3.412.2.7 [place] .3.972662 MD Barajas [facility] [place] 2021-12-07 2021-12-07 Outpatient KYLER THOMAS [facility] [id number] 13:01:24 13:01:24 DANA meza 2021-12-02 2021-12-02 Telephone Deborah, 1.2.840.1 [id number] [id number] Univers 00:00:00 00:00:00 Dorinda L 06389.1.1 ity of 3.412.2.7 [place] .3.639801 MD Sainz8 [facility] [place] 2021-11-28 2021-11-28 [facility], 1.2.840.1 [id number] [facility] 07:30:00 23:59:00 Encounter Oralia 78017.1.1 it y of 3.412.2.7 [place] .3.942840 MD Karl Medrano susana [facility] 2021-11-28 2021-11-28 Outpatient KYLER NASH [facility] [id number] 07:30:00 23:59:00 [facility] 2021-11-28 2021-11-28 [facility], 1.2.840.1 [id number] [id number] [facility] 07:11:29 07:29:00 Encounter Star 02335.1.1 it y of 3.412.2.7 [place] .3.495153 MD Barajas [facility] [place] 2021-11-28 2021-11-28 Outpatient KYLER TREVIÑO MDA [facility] [id number] 07:11:29 07:29:00 STAR Mitchell meza 2021-11-28 2021-11-28 Travel 1.2.840.1 1.2.888.496 3413 [id number] [facility] 00:00:00 00:00:00 17839.1.1 350.1.13.41 ity of 3.412.2.[place]7.3.698 [place] .3.783641 084.8 .8 [facility] [place] 2021-11-21 2021-11-21 [facility], 1.2.840.1 [id number] Univers 07:00:00 23:59:00 Encounter Saamir 02219.1.1 it y of 3.412.2.7 [place] .3.798984 MD [facility]ajas [facility] 2021-11-21 2021-11-21 Outpatient KYLER NASH, DILLON [facility] [id number] MD 07:00:00 23:59:00 SAANICOLASAR Mitchell [facility] 2021-11-21 2021-11-21 Anesthesia Daniel 1.2.840.1 [id number] Univers 14:52:05 14:52:05 Event Brooke L 18114.1.1 it y of 3.412.2.7 [place] .3.160887 MD [facility]ajas [facility] 2021-11-21 2021-11-21 Telephone Mirna 1.2.840.1 [id number] Univers 00:00:00 00:00:00 Maeadeline 84979.1.1 i ty of M 3.412.2.7 [place] .3.612822 MD [facility]ajas [facility] 2021-11-21 2021-11-21 Documentat Mirna 1.2.840.1 [id number] 1 [id number] Univers 00:00:00 00:00:00 ion Maeadeline 62424.1.1 i ty of M 3.412.2.7 [place] .3.411649 MD [facility]ajas [facility] 2021-11-21 2021-11-21 Melonie Nash 1.2.840.1 [id number] Univers 00:00:00 00:00:00 Only Saamir 28589.1.1 ity of 3.412.2.7 [place] .3.609484 MD Barajas [facility] 2021-11-21 2021-11-21 Travel 1.2.840.1 1.2.859.113 7223 [id number] Univers 00:00:00 00:00:00 22754.1.1 350.1.13.41 ity of 3.412.2.7 [place]7.3.698 [place] .3.155673 084.8 .8 [facility] [place] 2021-11-18 2021-11-18 [facility] 1.2.840.1 [id number] [facility] 11:00:00 23:59:00 Liberty Cali 81312.1.1 ity of 3.412.2.7 [place] .3.758669 .8 [facility] 2021-11-18 2021-11-18 Outpatient MARTHA [facility] MDA [id number] [place] 11:00:00 23:59:00 DANA meza 2021-11-18 2021-11-[address] [facility] Dana Thomas 1.2.840.1 [id number] [facility] 15:15:00 16:00:00 Susan Baird 62082.1.1 ity of 3.412.2.7 [place] .3.820488 MD Barajas [facility] 2021-11-18 2021-11-18 [facility] Thomas, 1.2.840.1 [id number] [facility] 14:00:00 15:24:25 Delma Cali 42297.1.1 ity of ts 3.412.2.7 [place] .3.140512 MD Barajas [facility] 2021-11-18 2021-11-18 Outpatient KYLER THOMAS MDA MDA [id number] [place] 12:27:48 15:24:25 DANA meza 2021-11-18 2021-11-18 Outpatient KYLER DRIVER MDA MDA [id number] MD 15:22:16 15:22:16 CHRISTIAN meza 2021-11-18 2021-11-18 Telemsarahy Driver 1.2.840.1 [id number] [facility] 15:00:00 15:15:00 jay Gonzales 91830.1.1 ity of 3.412.2.7 [place] .3.297872 MD Karl meza [facility] 2021-11-18 2021-11-18 Outpatient KYLER THOMAS MDA MDA [id number] 12:28:16 12:28:16 DANA meza 2021-11-18 2021-11-18 Outpatient KYLER THOMAS DILLON CARRANZA [id number] 11:58:51 12:12:03 DANA meza 2021-11-18 2021-11-18 Vicki Eugenio Thomasradha Cali 1.2.840.1 [id number] [facility] 11:30:00 12:12:03 Support Rosalinda Topete 13467.1.1 ity of 3.412.2.7 [place] .3.242908 .8 [facility] 2021-11-18 2021-11-18 Travel 1.2.840.1 1.2.762.088 6483 [id number] Univers 00:00:00 00:00:00 72838.1.1 350.1.13.41 ity of 3.412.2.7 2.[place]7.3.698 [place] .3.647781 084.8 .8 [facility] 2021-11-16 2021-11-16 [facility], 1.2.840.1 [id number] [facility] 09:38:14 23:59:00 Encounter Los 19807.1.1 it y of 3.412.2.7 [place] .3.512210 MD Barajas [facility] 2021-11-16 2021-11-16 Outpatient KYLER GONSALEZ [facility] MDA [id number] 09:38:14 23:59:00 LOS meza 2021-11-16 2021-11-16 Feliberto Nash 1.2.840.1 [id number] [facility] 09:40:00 10:51:59 Oralia 62279.1.1 ity of 3.412.2.7 [place] .3.126878 MD Barajas [facility] 2021-11-16 2021-11-16 Outpatient KYLER NASHDILLON MDA [id number] 09:37:56 10:51:59 ORALIA meza 2021-11-16 2021-11-16 Documentat Mirna, 1.2.840.1 [id number] 1 [id number] Univers 00:00:00 00:00:00 ion Carlos 89353.1.1 i ty of M 3.412.2.7 [place] .3.324016 MD Barajas [facility] 2021-11-16 2021-11-16 Orders Nash, 1.2.840.1 [id number] Univers 00:00:00 00:00:00 Only Oralia 45817.1.1 ity of 3.412.2.7 [place] .3.640877 MD Sainz8 [facility] 2021-11-16 2021-11-16 Travel 1.2.840.1 1.2.993.713 1142 [id number] Univers 00:00:00 00:00:00 25289.1.1 350.1.13.41 ity of 3.412.2.7 2.[place]7.3.698 [place] .3.828577 084.8 MD Barajas [facility] 2021-11-04 2021-11-04 Outpatient KYLER THOMAS MDA MDA [id number] 15:20:54 15:20:54 DANA meza 2021-11-04 2021-11-04 Telemsarahy Thomas, 1.2.840.1 [id number] Univers 14:30:00 15:00:00 jay Cali 22435.1.1 it y of 3.412.2.7 [place] .3.204311 MD [facility]ajas [facility] 2021-11-04 2021-11-04 Louise Driver, 1.2.840.1 [id number] [id number] Univers 11:00:00 12:45:00 Procedure Christian 47968.1.1 it y of 3.412.2.7 [place] .3.177000 MD [facility]ajas [facility] 2021-11-04 2021-11-04 Outpatient KYLER DRIVER MDA MDA [id number] 12:28:30 12:28:30 CHRISTIAN meza 2021-11-04 2021-11-04 Outpatient KYLER NEISHA [facility] MDA [id number] 10:28:13 10:28:13 CHRISTIAN Mitchelldali meza 2021-11-04 2021-11-04 Ancillary Neisha, 1.2.840.1 [id number] 1089 [id number] [facility] 09:15:00 10:15:00 Procedure Christian 40471.1.1 it y of 3.412.2.7 [place] .3.919800 MD Sainz8 [facility] 2021-11-04 2021-11-04 Prep for Martha, 1.2.840.1 [id number] [id number] Univers 00:00:00 00:00:00 Surgery Dana Cali 19898.1.1 it y of 3.412.2.7 [place] .3.895892 MD [facility]ajas [facility] 2021-11-04 2021-11-04 Telephone Martha 1.2.840.1 [id number] Univers 00:00:00 00:00:00 Dnaa Cali 92979.1.1 it y of 3.412.2.7 [place] .3.617298 MD [facility]ajas [facility] 2021-11-04 2021-11-04 Travel 1.2.840.1 1.2.014.523 2016 [id number] Univers 00:00:00 00:00:00 15486.1.1 350.1.13.41 ity of 3.412.2.7 2.2[place]7.3.698 [place] .3.839174 084.8 MD [facility]ajas [facility] 2021-11-03 2021-11-03 Outpatient KYLER THOMAS DILLON MDA [id number] 16:09:24 16:11:25 DANA meza 2021-11-03 2021-11-03 Multidisci Martha 1.2.840.1 [id number] [facility] 16:00:00 16:11:25 plinary Dana Cali 04549.1.1 it y of Visit 3.412.2.7 [place] .3.579211 MD Barajas [facility] 2021-11-03 2021-11-03 Travel 1.2.840.1 1.2.971.437 4216 [id number] Univers 00:00:00 00:00:00 64698.1.1 350.1.13.41 ity of 3.412.2.7 2.2.7.3.698 [place] .3.865939 084.8 MD Sainz8 [facility] 2021-11-01 2021-11-01 [facility] Neisha, 1.2.840.1 [id number] Univers 00:00:00 00:00:00 Only Christian 89073.1.1 ity of 3.412.2.7 [place] .3.867325 MD Sainz8 [facility] 2021-10-28 2021-10-28 Ancillary Martha 1.2.840.1 [id number] Univers 20:30:00 20:35:00 Procedure Dana Cali 40632.1.1 ity of 3.412.2.7 [place] .3.526452 MD Sainz8 [facility] 2021-10-28 2021-10-28 Ancillary Martha, 1.2.840.1 [id number] Univers 20:25:00 20:30:00 Procedure Dana Cali 01732.1.1 ity of 3.412.2.7 [place] .3.546198 MD Barajas [facility] 2021-10-28 2021-10-28 Ancillary Martha, 1.2.840.1 [id number] Univers 20:20:00 20:25:00 Procedure Dana Cali 53393.1.1 ity of 3.412.2.7 [place] .3.156991 MD Sainz8 [facility] 2021-10-28 2021-10-28 Louise Thomas, 1.2.840.1 [id number] Univers 20:15:00 20:20:00 Procedure Dana Cali 94143.1.1 ity of 3.412.2.7 [place] .3.209106 MD Barajas [facility] 2021-10-28 2021-10-28 Ancillary Thomas, 1.2.840.1 [id number] Univers 20:10:00 20:15:00 [address] L[address]. 25942.1.1 ity of 3.412.2.7 [place] .3.967863 .8 [facility] 2021-10-28 2021-10-28 Ancillary Thomas, 1.2.840.1 [id number] Univers 20:05:00 20:10:00 Procedure Dana D. 23781.1.1 ity of 3.412.2.7 [place] .3.902136 .8 [facility] 2021-10-28 2021-10-28 Ancillary Thomas, 1.2.840.1 [id number] Univers 20:00:00 20:05:00 Procedure Dana D. 14494.1.1 ity of 3.412.2.7 [place] .3.894088 .8 [facility] 2021-10-28 2021-10-28 Outpatient THOMAS, MDA MDA [id number] MD 16:20:12 16:20:12 DANA meza 2021-10-28 2021-10-28 Outpatient EL THOMAS, MDA MDA [id number] MD 16:20:11 16:20:11 DANA meza 2021-10-28 2021-10-28 Outpatient EL THOMAS, MDA MDA [id number] MD 16:20:10 16:20:10 DANA meza 2021-10-28 2021-10-28 Outpatient EL THOMAS, MDA MDA [id number] MD 16:20:09 16:20:09 DANA meza 2021-10-28 2021-10-28 Outpatient EL THOMAS, MDA MDA [id number] MD 16:20:08 16:20:08 DANA meza 2021-10-28 2021-10-28 Outpatient EL THOMAS, MDA MDA [id number] MD 16:20:07 16:20:07 DANA meza 2021-10-28 2021-10-28 Outpatient EL THOMAS, MDA MDA [id number] 16:20:05 16:20:05 DANA meza 2021-10-28 2021-10-28 Melonie Driver, 1.2.840.1 [id number] Univers 00:00:00 00:00:00 Only Christian 70290.1.1 ity of 3.412.2.7 [place] .3.774384 MD Sainz8 [facility] 2021-10-28 2021-10-28 [facility] Thomas, 1.2.840.1 [id number] Univers 00:00:00 00:00:00 Only Dana Cali 21623.1.1 it y of 3.412.2.7 [place] .3.606768 MD [facility]8 [facility]10[facility] 2021-10-26 [facility] Dar Rosenberg 1.2.840 .[id number] [facility] 19:02:00 23:59:00 Encounter Dana Thomas 17884.1.1 ity of 3.412.2.7 [place] .3.693061 MD [facility]ainz8 [facility] 2021-10-26 2021-10-26 Outpatient KYLER MARTHA [facility] [id number] 19:02:00 23:59:00 DANA meza 2021-10-25 2021-10-25 [facility] Dana Thomas 1.2.840.1 [id number] [facility] 09:26:28 23:59:00 Encounter Fermin Hoffman 60219.1.1 ity of Jazzmine Xiao 3.412.2.7 Herberth Shirley3.516391 MD Sainz8 [facility] 2021-10-25 2021-10-25 Outpatient KYLER THOMASDILLON [facility] [id number] 09:26:28 23:59:00 DANA meza 2021-10-25 2021-10-25 Beth Mera 1.2.840.1 [id number] [facility] 11:51:00 13:07:00 Event Herberth A 81371.1.1 i ty of 3.412.2.7 [place] .3.412877 MD Sainz8 [facility] 2021-10-25 2021-10-25 Travel 1.2.840.1 1.2.898.148 [id number] [facility] 00:00:00 00:00:00 67912.1.1 350.1.13.41 ity of 3.412.2.7 [place].3.698 [place] .3.612523 084.8 MD Sainz8 [facility] 2021-10-24 2021-10-24 Anesthesia Lukas, 1.2.840.1 [id number] [facility] 23:59:59 23:59:59 Event Roxi 62833.1.1 ity of 3.412.2.7 [place] .3.514255 MD Barajas [facility] 2021-10-24 2021-10-24 [facility] Dana Thomas 1.2.840.1 1020 [id number] [facility] 10:13:24 23:59:00 Encounter Genaro Mcclelland 09241.1.1 ity of 3.412.2.7 [place] .3.696344 MD Barajas [facility] 2021-10-24 2021-10-24 Outpatient KYLER THOMAS MDA MDA [id number] 10:13:24 23:59:00 DANA meza 2021-10-24 2021-10-24 Outpatient KYLER GONSALEZ MDA MDA [id number] 09:55:40 10:10:08 LOS meza 2021-10-24 2021-10-24 Clinical Dana Thomas 1.2.840.1 1020 [id number] [facility] 09:45:00 09:54:27 Support Cindy Núñez 70694.1.1 ity of 3.412.2.7 [place] .3.103315 MD Barajas [facility] 2021-10-24 2021-10-24 Outpatient KYLER THOMAS MDA MDA [id number] 09:43:01 09:54:27 DANA meza 2021-10-24 2021-10-24 CON Thomas, 1.2.840.1 [id number] [facility] 09:00:00 09:30:00 Delma Cali 31948.1.1 ity of ts 3.412.2.7 [place] .3.698569 MD Barajas [facility] 2021-10-24 2021-10-24 Orders Mcclelland, Genaro 1.2.840.1 [id number] [facility] 00:00:00 00:00:00 Only T 93281.1.1 ity of 3.412.2.7 [place] .3.973809 MD Barajas [facility] 2021-10-24 2021-10-24 Travel 1.2.840.1 1.2.619.767 [id number] [facility] 00:00:00 00:00:00 01213.1.1 350.1.13.41 ity of 3.412.2.7 [place]7.3.698 [place] .3.940549 084.8 MD Barajas [facility] 2021-10-18 2021-10-18 Orders Gonsalez, 1.2.840.1 [id number] [facility] 00:00:00 00:00:00 Only Los 19667.1.1 ity of 3.412.2.7 [place] .3.499691 MD Barajas [facility] 2021-10-18 2021-10-18 Telephone Perez, 1.2.840.1 [id number] [facility] 00:00:00 00:00:00 Sabra 75442.1.1 ity of 3.412.2.7 [place] .3.795397 MD Barajas [facility] 2021-10-14 2021-10-14 Pratibha Thomas, 1.2.840.1 [id number] [facility] 14:00:00 14:30:00 jay Cali 67058.1.1 it y of 3.412.2.7 [place] .3.712473 MD Sainz8 [facility] 2021-10-14 2021-10-14 Outpatient KYLER THOMAS MDA MDA [id number] 14:03:17 14:03:17 DANA meza 2021-10-13 2021-10-13 Ancillary Neisha, 1.2.840.1 [id number] [facility] 07:15:00 09:40:00 Procedure Christian 89555.1.1 it y of 3.412.2.7 [place] .3.308515 .8 [facility] 2021-10-13 2021-10-13 Outpatient KYLER DRIVER MDA MDA [id number] 07:10:42 07:10:42 CHRISTIAN meza 2021-10-13 2021-10-13 Travel 1.2.840.1 1.2.015.324 [id number] [facility] 00:00:00 00:00:00 72514.1.1 350.1.13.41 ity of 3.412.2.7 [place].3.698 [place] .3.599111 084.8 .8 [facility] 2021-10-03 2021-10-03 Telephone Neisha, 1.2.840.1 [id number] Univers 00:00:00 00:00:00 Christian 81085.1.1 ity of 3.412.2.7 [place] .3.514963 MD Sainz8 [facility] 2021-09-30 2021-09-30 Office Neisha, 1.2.840.1 [id number] [facility] 13:00:00 13:51:12 Visit Christian 26951.1.1 ity of 3.412.2.7 [place] .3.583441 MD Sainz8 [facility] 2021-09-30 2021-09-30 Outpatient KYLER DRIVER MDA MDA [id number] 11:50:15 13:51:12 CHRISTIAN meza 2021-09-30 2021-09-30 Outpatient KYLER DRIVER MDA MDA [id number] 11:34:41 11:41:58 CHRISTIAN meza 2021-09-30 2021-09-30 Travel 1.2.840.1 1.2.945.611 [id number] [facility] 00:00:00 00:00:00 92360.1.1 350.1.13.41 ity of 3.412.2.7 [place]7.3.698 [place] .3.172174 084.8 .8 [facility] 2021-03-23 2021-03-23 Outpatient KYLER THOMAS MDA [facility] [id number] 11:10:26 11:10:26 DANA meza 2021-03-23 2021-03-23 Outpatient KYLER DRIVER MDA MDA [id number] 10:25:02 10:41:31 CHRISTIAN meza Results Test Description Test Time Test Comments Results Result Comments Source POC Creatinine 2022-04-20 17:40:43 Test Item Value Reference Range Interpretation Comme nts POC Crea (test code = 20481-6) 1.0 mg/dL 0.6-1.3 Medications, especially hydroxyurea or supplements, such as ascorba te, can interfere with test results causing a false ly and significantly h igher result than expected. If a problem is suspected with a patient's result, a sampl e should be sent to the [facility] for confirmatory te sting. Method description: e i-STAT is an analyzer used f or in vitro quantification of various analytes in who le blood. The device uses a s yesi disposable cartridge which contains microfabricated sensors, a calibration arnoldo [employer], fluidics system, and a w aste chamber. Each test cartr idge contains chemically sens itive biosensors on a [employer] ip that are configured to p erform specific tests. The micr ofabricated sensors measure analyte concentration b y an electrochemical assay. POC eGFR-AA (test code = 66 See_Comment Nor mal eGFR >= 60 mL/min/1.73 17233-1) m2 The eGFR is calculated using the CKD-EPI equ ation. The eGFR declines with a ge. eGFR <60 mL/min/1.73 m2 is considered as "decreased" Thi s equation should only be used for patients 18 and older. According to National Kidney Foundati on's Kidney Disease Outcome Quality Initiative (KDO QI) classification and 2012 Kidney Disease Improvi ng Global Outcomes (KDIGO ) Clinical Practice Guidel ine, the stage of CKD should b e categorized based on estima elena GFR. Stage Description GFR mL/min/1.73 m21 Kidney damage w ith normal or high GFR >=902 Kidney damage with mild decre ase in GFR 60-893a Mild to moderate decrease in GFR 45-593b Moderate to sev ere decrease in GFR 30-444 Marleny re decrease in GFR 15-295 Kidn ey failure <15 (or dialysis) [ Automated message] The sy stem which generated this result transmitted ref erence range: >=60 mL/min/1.7 3 m2. The reference range was not used to interpret this result as normal/abnormal . POC eGFR-EVELINA (test code = 57 See_Comment L No rmal eGFR >= 60 mL/min/1.73 91668-2) m2 The eGFR is calculated using the [...] damage w ith normal or high GFR >=902 Kidney damage with mild decre ase in GFR 60-893a Mild to moderate decrease in GFR 45-593b Moderate to sev ere decrease in GFR 30-444 Marleny re decrease in GFR 15-295 Kidn ey failure <15 (or dialysis) [ Automated message] The sy stem which generated this result transmitted ref erence range: >=60 mL/min/1.7 3 m2. The reference range was not used to interpret this result as normal/abnormal . POC Clean Dev (test code = Yes 6672) Performing Lab (test code = MAGALIE [facility] [address]) [facility] nicole MD [facility], [address], [facility] [place] [address]; Point of Care Mechanical Developer Prover: Eli anders MD Lab Interpretation (test code Abnormal = 72745-0) [facility] O[facility] [id number] 20:46:40 Test Item Value Reference Interpretation Comments Range POC O2 Saturation, 100.0 % 95.0-99.0 H Arterial (test code = 48627) POC Oxyhemoglobin, 98.8 % 94.0-98.0 H Arterial (test code = 15430) POC Hemoglobin, total 10.5 g/dL 12.0-16.0 L (test code = 70596) POC Carboxyhemoglobin 0.0-1.9 (test code = 27584) POC Methemoglobin 1.8 % 0.0-1.5 H Method ronak cription: (test code = 83181) The ABL8 0 FLEX CO-OX OSM analyzer is a portable, autom ated analyzer that measures oxygen saturation (sO2 ), concentration o f total hemoglobi n (ctHb), fractio n of oxygenated hemo globin in total hemogl obin (FO2Hb), fracti on of methemoglobin i n total hemoglobi n (FMetHb), and fraction of carboxyhemoglob in in total hemoglobi n (FCOHb) co-oxim etry parameters in [facility] blood. The anal yzer uses spectrophotomet ry to perform quantit ative measurement of the parameters list ed from a 65l sa mple. POC OX Draw Site (test Aorta code = 38518) Performing Lab (test MDA Main Main Ca mpus code = 26779) [facility] Cli nical Lab, [address] [place] [address], [place] [address]; Mechanical Developer Prover: Tanya Navarro MD Lab Interpretation Abnormal (test code = 30942-9) [facility] Interpretation Antibody Screen [id number] 17:46:53 Test Item Value Reference Range Interpretation Comments TMP Auto Neg At the present ABSC Interp time, patient (test code = plasma shows no ____JESSI Chacon ORREA 7530) evidence of RBC MD PATY, P hD - alloantibodies. [id number] d by: Mookie HERNÁNDEZ, PhD - [id number] D ate/Time: 11.28.2021 11:4 6 AM MUD MIXER Transcribed Eduar e/Time: 11.28.2021 11:4 6 AM CSTElectronical ly Signed By: JESSI NEWMAN MD, PhD - [id number] on 11.28.2021 1 1:46 AM [facility] 16:52:30 Test Item Value Reference Range Interpretation Comments ABORh. (test code = 882-1) O POS [facility] CenterClot Expiration [id number] 16:52:26 Test Item Value Reference Range Interpretation Comments T & S Expiration (test code = 12/01/2021 5318) [facility] CenterAntibody Hlenpa3625-45-15 16:51:56 Test Item Value Reference Range Interpretation Comments ABSC. (test code = 890-4) Negative ABSC [facility] Oximetry [id number] 15:45:17 Test Item Value Reference Interpretation Comments Range POC O2 65.0 % Saturation,Venous (test code = 57823) POC Oxyhemoglobin, 63.5 % Venous (test code = 88476) POC Hemoglobin, total 10.6 g/dL 12.0-16.0 L (test code = 27378) POC Carboxyhemoglobin 0.5 % 0.0-1.9 (test code = 95347) POC Methemoglobin 1.9 % 0.0-1.5 H Method ronak cription: (test code = 80290) The ABL8 0 FLEX CO-OX OSM analyzer [...] Draw Site (test R atrium code = 32070) Performing Lab (test MDA Main Main Ca mpus code = 28238) [facility] Cli nical Lab, [address], [place] [address]; Mechanical Developer Prover: Tanya Navarro MD Lab Interpretation Abnormal (test code = 10411-5) [facility] CenterPO Glucose [id number] 14:58:52 Test Item Value Reference Interpretation Comments Range POC Glucose (test 102 mg/dL 70-99 H RN Notifie dCapillary code = 17528-6) blood sample s, e.g. obtained by fingerstick, [...] Capillary code = 9554) Performing Lab (test [facility] code = 58842) [facility] MD Jazmin ackerman Clinical Lab, [address] [facility], [place], [place] [address]; Mechanical Developer Prover: Tanay Navarro MD Lab Interpretation Abnormal (test code = 86622-6) [facility] (SARS-CoV-2) PCR- Asymptomatic [id number] 04:33:25 Test Item Value Reference Range Interpretation Comments COVID19 (SARS Not Detected Not Detected CoV-2) Result (test code = ____[place] a 81954-3) qualitative reverse-transcr iptase polymerase sukhdeep n reaction [...] patients provid ed by the manufacture r ([employer]) c an be reviewed at:https://www. fda.go v/media/131226/ downlo ad. A fact shee t for Health Care pro viders is provided by the electronics production supervisor ([employer]) and can be reviewed at: https://www.fda .gov/m edia/203163/alba nload Results must be interpreted wit hin [...] specimen for te sting if clinically indicated. This assay has been approv ed by the FDA for use only under Emergency Use Authorization ( EUA) in laboratories that have been CLIA-certified to perform moderate-comple xity and high-comple xity tests. The performance characteristics of this assay were verified by the Microbiology Laboratory at [facility], CLIA Accreditation # : [id number] and CAP Accreditation # : [id number]. COVID19 SARS SENIOR OCCUPATIONAL THERAPIST Swab Source (test code = 15656) COVID19 SARS Pre-OR Procedure Indication (test code = 51151) [facility] CenterTSH20[facility]-02-25 20:51:59 Test Item Value Reference Range Interpretation Comments TSH (test code = 2.77 See_Comment [Automated message] The 65117-4) system which ge nerated this result transmit elena reference range : 0.27 - 4.20 mcunit/mL. The reference range was not used to interpr et this result as maury l/abnormal. [facility] CenterFree [id number] 20:51:58 Test Item Value Reference Range Interpretation Comments T4 Free (test code = 3024-7) 1.57 ng/dL 0.93-1.70 [facility] Add-On Test 2021-11-18 20:06:39 Test Item Value Reference Range Interpretation Comments Ordered (test code = 6568) Test Added Test Needed (test code = 7604) TSH, Free T4 [facility] CenterUrinalysis with Microscopic 2021-11-18 18:41:22 Test Item Value Reference Interpretation Comments Range UA WBC (test code = 3 See_Comment H [Automa elena 28596-8) message] The system which generated this result transmitted reference range : 0 - 2 /HPF. The reference range was not used to interpret this result as normal/abnormal . UA RBC (test code = See_Comment [Automa elena 21761-5) message] The system which generated this result transmitted reference range : 0 - 2 /HPF. The reference range was not used to interpret this result as normal/abnormal . UA Mucous (test code NOT SEEN Not Seen-Trace = 39316-5) /HPF UA Bacteria (test NOT SEEN NOT SEEN /HPF code = 52129-8) UA Squam Epi (test OCC None-Occasiona code = 01557-1) l /HPF UA Trans Epi (test OCC NOT SEEN /HPF A code = 70787-4) CHRISTOPHER (test code = Some reporting CHRISTOPHER) parameters within the Urinalysis test have changed due to the implementation of new instrumentation in the [facility] [place], allowing greater sensitivity of measurement. Urinalysis results reported by the [facility] using existing instrumentation, as well as Urinalysis testing performed manually or by backup methodology at the [facility] [place] will remain relatively unchanged. New reporting parameters and units will now be reported for all campuses. Lab Interpretation Abnormal (test code = 84377-7) [facility] CenteraPTT2022-02-25 18:18:01 Test Item Value Reference Range Interpretation Comments aPTT (test 35.9 See_Comment [Automated mes alexis] code = The system [employer] h 98797-5) generated this result transmitted ref erence range: 24.7 - 3 6.8 second(s). The reference range was not used to int erpret this result as normal/abnormal . CHRISTOPHER (test code This lab cannot be = CHRISTOPHER) scheduled at the following locations due to collection/proccess ing restrictions: [facility] and [facility]. [facility] CenterProthrombin Time with [id number] 18:18:00 Test Item Value Reference Range Interpretation [...] following locations due to collection/procc essing restrictions: [facility] and [facility]. Lab Interpretation Abnormal (test code = 58844-4) [facility] CenterHemoglobin [id number] 18:14:44 Test Item Value Reference Range Interpretation Comments A1C (test code = 5.6 % 4.3-5.6 HbA1c value s >=6.5% are 4548-4) diagnostic of d iabetes mellitus.Diagno sis should be confirmed by repeat testing.Therape utic Action suggested: >8.0 % HbA1c; Goal oftherapy: <7.0% HbA1c [facility] CenterUrinalysis w/Microscopic if [id number] 18:07:36 Test Item Value Reference Range Interpretation Comments UA Color (test code = 81101-7) Yellow Straw-Yellow UA Appear (test code = [...] A Lab Interpretation (test code = Abnormal 11587-3) [facility] Breast Complete - Bilateral 2021-11-04 19:45:45 Test Item Value Reference Range Interpretation Comments Radiology Study observation (narrative) (test code = 18358-3) IMP (test code = No mammographic evidence [...] Evaluation Lab Interpretation Abnormal (test code = 27252-7) [facility] Chest for Breast Ultrasound (Add-on Only)2021-11-04 19:45:45 Test Item Value Reference Range Interpretation Comments Radiology Study observation (narrative) (test code = 18391-2) IMP (test code = No mammographic evidence [...] Evaluation Lab Interpretation Abnormal (test code = 85884-8) [facility] CenterCytology Image-Guided FNA [id number] 00:43:00 Test Item Value Reference Range Interpretation Comments Gross Description (test n2vocEWnHRCloQBVVMjf code = 5373505564) AGkbcmXyMGAxlXHmT9Bz gkycASgmAX0qJZ3jcSpj mQZueVOyNW7FCXHsBeYh XHBhcGVydzEyMjQwXHBh dMJsrSW2YUEuGA1baxgd KAqcRZduJIPpkvY3KSQp jPCkT8LxISQaDW0yuftv BCW9WIvkmK3ekmUZFvhe Ql9oaUTnmYeeAbOiXtUe YXJzZXQwXGZuaWwgQXJp IMg3iK0YVwreJ86eq3G7 Aaj9ESVuYCKbM5SnLZ4x BFEtlJDgA36NKqjqDPD2 OTKRDpuaTPGfIZ9Fu7ob CMCgpHAaUWU3YSzqrJQh TWNxLIIjIDf6PEGlDCpx jYCsSG3dbPzlUlavoBvf d4IoyHDdDWroSSGwZVXt GEuhUCEhAV6XZgKyQQOa BCRsGRYbGYh0GBq0WN7J PwVdELGvQHUeWqt2TLQw HYj2VGvvHK5BAAo8KqQ5 IUT7TQC9PTL9NLNpMCQo MiBcXGYgQXJpYWwgXFxm cyAxMCBcXGZiIFxcZmwg MIzcX78nuPqemE1lFkll rtAiBMC5IPQkbyYLWszy bGFpblxlcGljTmVzdERv YzEgDQpcbHRycGFyXGxp bjBccmluMCANClxsdHJj aFxjZjFcZnMyMCBTcGVj yK4cxoOfcXLiO8QjCRJ9 XHBhciANCjMgRGlmZiBR dWlrOyAzIFBhcCBTdGFp tkYWpAmhXXTyxXDfLY2H OAKckIpjEWlswr91KQT4 c1kjbXXpGWslUjbtsEUr kfF3LWlGUBAVVCmIOdGv VU3jFTrMW0BGNAsTOtvl CNX0GUugkQV3h1wekCUb u8w3VPdjHXV9bACyqZhd tNi9QBLap8IreYAaiOAb xSNpcQC1SKGxVZnit7oi ZGIcIHgjr3VqYWhBCDIC GN5WQI5nmZH1Q5fWUYZB U2bJhGJ9y9jwuKEsg4i4 ZSvwBUG6bDLov79njJql YhmppTC4HJysHjyuzH4g dCBIWVBFUkxJTksgbmFt ES5FUOxTRG2TnGA4d5fs rCUps3o6AZahMPC7bUky yQAlxjhzaKXywPdbpt09 VQR6YUQuHVssazOmXAEx lWSqDAzsAsjuyDM7YLzq WbyquN1cnEIEWDUHLlpQ YenlukJyWF8YWGRLIA3W zUK6ZoUlyKK2YI75FENl LIXyhMJcDBdeJ468BRTv OJcjIYa3iaJuURFbTCeq saRxWDYcyiOUUW0HMJDd ciANClxjZjAgMSBDZWxs BNRub3HeSRWonhJDDcOe dGUvVGltZSBQbGFjZWQg aP4dYo5wgMChyL32HXbg hi40FFI8q5wonHLnRJtc XanecFBnhuT9MFzKLAQC HNgOYgPoTY6lNIaQXvkI IBbHPzh0AZD6NrnwrIJK ZDHEQCREBFatdFc6LCh5 fXtcZmxkcnNsdCBcJzFD nL5vRf6pKX4jDbeqIxsk nUM6MAetWhgwsW2doIEM BOKRZjhOPfctvyQoFJ8G QW5KKN3LeKHkEKqghTF6 MI7SLKfCFSVOqBH6kTkq fVa1z1jnzIMup0u2KAfn CPG2yHvgvUDweitwbBWj aFxmczIwICBccHJvdGVj aFawTmnjvNK5FVzaHtgm hO3krEKYFJUTNwtGDoyu ltKeQS0QDY0XWiZNCT24 JIS4QWjZI5a8SIz3pXZ3 lZ81YGXhYOArnWIkCGed L541KXsmEKQZUBvmWjsp rGM7GMzgSohbaF5uyNOK WLFRHzoYQgosrvPmWU6B RL6BLS7EkCdhqFQ8Td8H bGE2rGyucRh2w9dmiFMt a2c4UJwcTJL2hZarhELx blxsdHJjaFxjZjFcZnMy FQlfQCNxCZdczJCuZH5V M1n4WUfhWA8dXZJmBZCs pgGMExycaXHfbWI3ORQi i8Arm3DjHG55AUZiaqFs gXHysN5qnmSmMLQywMQz pDZ7KGIvkQYdWROuvRAb qRRdrQnyEelteYZ4PMjj LgyciW4lmJXBGKPYEffS EizrmrJlQS3MYHKMRbOB FF82YoB8EuY9SSg6uIjm TrksydCuaKSwUaDMhV75 XMquBkuplFU5XFwzYagi fU4oxOGNNPHWSbeYEvka ddKzUR4ZGBKQQP9RdVW1 GwQ5qJE3ZN70OIPbCRLv sKKaHFchP179BEQiFIlg KLb0ftDsFECtOByidkHj KVGvgXXZnh6hY6LuJKTp SEvtgkMUSXEKKFwUY1Xa BLUKOLOYVSTvYtJZOO8f UrO5ToV7BL59IihmRgQ6 RbH5tHU8FLZJTKWQPLgN H2UmQNGKLNOAWHZnJL6O RLtDOWCBYIZWP13MLRRM YAQUV6QWL9mCFHQgy5Mn b22anJdTELQJFPCUR25K YICBXRUWV2JRCWPFJUFT HHnSVLZQFw1MIZWKPJAJ UN3ANDoHJmGrGEluwRHd IVxaTVT0JRb6WNg5sVBw v4MfxFH5CcV4MkDulMNA BTXCFFuZZODLSs0VVMVZ VHOGNZ3XRbNcD5EJKC8F Qw1LVKLULFUCVD5HKZnJ UhApN4RFPD9XBj8ORQOP KPPNZD5AYcBhBYIGC6MI RdUZU3cvRWHYICOKSKOx NwVEPG8dBKJEUC6FMRAD RVSGP16KPFBMXQLDR5OV LN7HGUWtoVFMBXU7CX2g YHw3DRbeTMByJ7OkJ1Ha wzVkdWNwPFVdcuFuf9ku DWU8UVQicJNzuUAhTuOh ItxpUZJ1TXNoZPycAF9R XAXcVWB1ANvkkD53aOMo KA4TLUJmUYcuJVLvFLVx chV2JPKeiDTlJEN1FJ7m gWmbvUZwzikbnfE6CS0P fQ== Immediate Assessment Adequate (test code = 9837) cellularity, favor malignant Major Classification MALIGNANT A (test code = 9839) Diagnosis (test code = q0qifKHmRWMhiMQ3KzNe 34) KUNov9xfq7WorUCbiWYw TIoyqDZvvvPaqd71nZC4 gI93HA2fJWPyEgV6SHDc liE9Obe6ELRdTBIjpUJc D946i4aso9irfzGhiZX3 ZRAlLSZiT1JhKB6uTSEd yTFzG28ybCHeFDC6QHMl OGIbjPStQDPmWNR6GUDo dSSvI1nxTGKcXY4raxrj CMudYIlcJRUkzUT2WSGb bBYlG5LlFBNiWNstXLEv dpu1TaZuYb4acXPyrQlx PEqqR1qfaZ3rRtO7CRlr X0hsvR9hUOx5GUivCAXy zDO0oeW9OHKyfGDqM1Zd pV0mTNKuIH2cpps0z8hp COL7YTsfZHDgXlP7tkH1 NDBccGFyZFxwbGFpblxm gbVsMEDlWBYLLgIZf0G6 MPRkw6U7BGhvwARfkMRc AZx5qCLpEFOzyrOewnCm UHxkCKQupXyqPAVxt067 LWDxbzf5CHBlyNMwURkj TmQmYIfVA7gmF0WEDGYu A7QPH7sMF81ZGTQOIiJH Y7BFNlXhF1wATGWXNVGN NB6VL0FlVNuNDR6OJOGK EiQZDJtEQCBECS9eHPFS PRUMQPBbn3CdBSRpvP5t bnQpXHBhcn0= Comment (test code = j4qwkIDiUZTwnAE3TnLl 9835) IIBvp3kyx1SlaIJzuRTk BMtygYJgrsPsbf79lRX1 lM42FP3bOYFsFjP2KKBn edY3Icg2RUCbZKKjfCTl D250a2ltn5qiifFyoYZ4 wWpnKOFrnjrzMoB0QVbs OWNqghaiBJa8BIraRBUh bEB2KJCkpJRvP3YcNDJk LF8aqrj7BGN2TRkkQDWl WlR2VDQmsAGlBYTbsHzd YYrkz166NHP5JaHiGSRu qrIpiMbnxS4yNgExUWJE fR40so8raLUqjgRccUFr Lp5omRRnXI5eDEGvENUs PFxsOUOrg1NmLJLtC2Rk z55eRWYck4pyhFcmhWE3 tDPrdVDie0LtL8KceBFp XMDmIVXpg9d3hOVhSSVq qlWJVGlfIOulB4ElOLIn Yz8pPSnkHXEdLEIyOPQh RsN5c8MdYOWrATJLVdIt KpFuRY7jKYK3eC7cEADw mEaktsXsjJZgLN0oNIee d2TaVdglBZnbI5OmUHWr UTryLTwsTHSohktwh5f4 yLB9tUDwhIK6zOJooTpw UQczj5ehMHwel2Xjbbaa l0Ghr0Zpy2DfZUMikpCf ca8yKO2ljCVyFGBhGUOh VPlrMBLlg1AjPJZqJDSf msZ1oO8wUHvukdVmy622 ymxbaKLfeowljE95WFDe gqY2fUFmBWJqtmUvQLjn M08mh2uvJgSgdKQeXOLg M25gN5SzltFwiZJfg5Pv DM2nFOQqNRPwwD4gc3gp RHSbJr0yTJLiPWGqjmQg aBGhSNS1YKhrVVNcNW3r cGFyfQ== Retained/Biomarker t3drmSIpQDIyfNG4XtDr Testing (test code = VSFhj6klp9KfhHYshELz 9838) KSbgqMQbweUxjb07gWQ6 fX50PB2iADKqGyD9ZKNt caQ3Vyr1ZHMuYCXqfIGk F052c1zhh1tfqmFttBA4 uVxsTPKyfwsxVsW2MTyg QDHrpnkyVGb8BPhgANUn vCF8QHXrkRYkY2XbGWBp MY6oapm6RHB6EZmaTYCg QiL1ULYngGTmBRXloKkc BAxmy771SNP1RjGwSWNk osTjqUkehP0lQtGfPCEY Ynw2BkwnSuKANGZ1VQXq sDImQP5DWXKINtv4VK3v VMZoxLFpYR6CSEONBGE6 P1KrbXXeRQ8VQYOIPYov J1ecFFUoNDITPIGBM6s1 MVNccGFyfQ== Informational Points c3mdiMPqFRPdsFYgUhIw (test code = 9836) YLHyXDZre0zjXELbhKZz ZzEwMzNcZnRuYmpcdWMx RURuCpPzy7vba014fFKd k2plVOMyFqY2iUDdEMHr lYSxA343VATnZNgoe1lv c3QcNAOhoNGuq2Q0XUXX ICtlOHLUHGn3k7epJhYh PtZ8xBSqLNhzZ7sckcLa tXOwPHXiTEw9hZ33LIPx fL1rfWSlWTwbosTvYcO8 YMazWNLmXeJ0WNRboMXl QEYgB4zrBHOvCBavVHBq VYvhcSIxYMJ6eQnsq0B3 bGVzaGVldHtcZjBcZnMy VqQKj7VvPLg1wIvyM2Pk KVOjJzX8tWPxADOjRZfl ODQxNZCfczR7fI71KHwe diY7ePTpa6Jva08hw158 mR0xsXCoFUU2SFDbKEXo xFIcFWThBZS2LMJskMHx T7pxYIHxAM0yuverVByp DFumWTMuuSR8NKNheOTr G3StDHTfEWflYEAaeal3 XzTgSe9sgVXwdSbzWEon k7gkr8nqxYObSgl1XKRn YrJxHrqjYNnoq4Bqc0vy UKCtjr8aJGW5wPOihMfk o6L8tUIrJAYytFAsgmNm LXEmnb98lTFxzMGkcNXa rk8ramLqcPQuiKVbMYC2 cHNocnRuXGZldDRcYWVu TYVlN7zlKkPwznSdH1ss D5MfSJZiZDZzZGVcGoVh vfRxg1Bsf7ZddQBasNv2 q6rlANWiCOUywEaax2xj GLD5IZOgB3W7hNDfj8jz GCfhYBGieDI6fcC4KXGv dILrM5WiyM7mVQFaEK8b ldx0n6tfUUZ8ZAajEEOa YvR0odM5MJGtpDVsLNPo iPgmWVbxt655NIS3ChAa CIGve6YkH6WyeEjeE55n dPvfS19nVGHnvAqlfN2z mMevrZ3eEaAvTmWeYTac bFxwbGFpblxmMVxmczE4 KVufrdgiVSHyJSjsW6ln FtRgNWXcpZcvLMzoj2Yn YSKeJHAzSBpmmUNCo78i CUYix4MlXTFiaQ4fhHBn WUckoiQqoWZ0AWxsyvYe BqHywgZnEGDjiJ9oINVr QU1jOQDobuBjhw6iqsYn ADHfAHNsW4OuvfxjiFzy anThYFIywl6qbnQkSMF1 MSLZQW6YPZOnQOQrl90d IQGtxExixP1jnQMolnFx FUBbj6RkjD8hfKLPKLKh A0ifPR5iQNfvw3SkbPUv qOSdyWS4WFQej4LnGrGd wjStkVGhmCRtF9FmeRqg C0gmNTMjLDYqrxKbuXPc x3HlMUHsbDU4bDOqLW7D XyLRg60vDRKeEXAFpaVd PNKdwQbelSF8vkF1oN9c YtIAyRvoSAAlq6Nke8Va K0pvXHXhNKRdtBZncWnm nX0lJdEmWpEuOOtcQN7u JBZsR8nxfSTkJGLnYLPm S2qpTmAgsC9brXkoUZrx ZjJcZnMxOFxsdHJjaFxp VAvbc5IcBK94g2DsbjHH qPMddYW7gC5uk0s3JUsb Rq4eBYSvdmptiBslnM2p EfAsFaTfMYxzJA6rFYGw W9dkxKTcRYNpMRTpZ8cg EwPuhJ0goCpeLQdwOmKb ZnMxOFxpICwgXHBsYWlu XGYxXGZzMThcbGFuZzEw MzNcaGljaFxmMVxkYmNo NYCjKGafZ8vjPuXuP3Ha QEPtTNlovZSlR4qslPZq PepvQSPWPOZ4KBYjRYF1 ONxfUUxmsEC0a15gAYNw vPCxLHt0HHq3MXGdJXou XGYxXGZzMThcbGFuZzEw MzNcaGljaFxmMVxkYmNo MWVxOBqvT1djTbTaR6Cd XGZzMThcaSAuXHBsYWlu XGYyXGZzMjJcbGFuZzEw MzNcaGljaFxmMlxkYmNo RYMkXVfwJ7hwYaBgMpBv MlxwYXJ9 Lab Interpretation (test Abnormal code = 11447-9) [facility] Interpretation 2021-10-28 00:21:10 Test Item Value Reference Range Interpretation Comments Submitted Clinical History [id number] (test code = 14122) mbGFuZzEwMzNcZnRuYm pcdWMxIHtccnRmMVxzc 2WaZ8OmJjHvXFtwtcFs XGRlZmxhbmcxMDMzXGZ 0bmJqXHVjMVxkZWZmMH lzBa0ziWJmtZlxLtWoZ BNug7wzgyEFqsfxdDv4 z4dfYTYhQzC0lJAwSBa mP1rxdaHxkVMgAZUaTM z0uV60PGWclN3boMSzI YlhinBfVhI6QWuiSOAx QyR2YDMpdPNbBOGhX5z yZWQwXGdyZWVuMFxibH RbVJB7bZpwc2X4wNYlz GVldHtcZjBcZnMyMiBO s7NhMCx3gHynW2ZmHUG cXvZ3iFQbCLMzPTloPV ZaXBVjgqX5pO44MGbhr sG2eNIbl9Kdy91jv366 wN5mjVSpDKW9CEApGOQ esMZkLXDxLGB4LNWznY ThX6frRDDuDH6jwjgeB YsjJKbiOJRuyTM2FKKu vTCmN0FgVNEkOYblJCA fdrb3RuUgZq6scNUcbH jdSEzvg5fft0hcdJFcL aa2HVYaAeTjToxaSPte m7Akm3cgCRFzhy0nHSR 5pQNnyFrpr6U4jPIuJM AtvAZigrTkMJScCnQ4T TbxBU4vyi00WBJcEPZ2 uk4nqWSzmAiezfVeaLA hZZkjJ7LySXYmg176XK YhH4NtENNxm3Q7qeTjV kFaKJVjtRO6kpV9SJGx JGa3hBTomzP8mvHyyZN gU8vtuR6vVIWgWY3nbk zoa3zqKZfyNFvsAVEzi RO8ouD2ZHJsbJPwH5Wj gK4mMXRvDFyeGQPgetg 4JvYwQd2flVLqiAmaSE xzYmtwYWdlXHBnbmNvb nRccGduZGVjXHBsYWlu XHBsYWluXGYwXGZzMjR jvCipfSfjvU2vCrAfWk VdEBylAI9fPYWqE3nqw DFqNNLuPMKtU2vvUiGr xK1qwCbgFRqwbiBtIY9 fu8ExCFOeWKEuTGtpY1 6hjpWhr0PhCT4jy97th WXynH5gL0N7FX4hLRxk DBItLMC1BKG6URJhBuQ rQV6jALGbrQ4ihKjbJC Zrszq3j38yvR5wP3X8W V79QJqdgBDvchcrEPar czIyXGxhbmcxMDMzXGh bH3tkDbDvZDGcxEwqMQ nfv5IcYCPvYIStFhMdt GFyfX0= Diagnosis (test code = 34) s7whoLWwQBHcyOC0FpM oZTAjy7das4HyfKSjcQ JwAMseuZFlogIezh90e XN4yE40NW9vUGThEeR5 FIRnqrD4Cnr5ZPAtUDC hbYNuT228i3ptb9anxw MviRS7PECoVJSrW4WvN B0sXHUwqSVoA36ggXGk JYD4CGEnHHHjjGPvHVH pADQ1POFmsBMvY2jzRX OzNF2slerwNJbbWFvoY WWyrJD2HPDudIMpE5Lt DFRtEUybMVQqdvy1KpU zDx5iuGDbfBezTAqaZV JkXHBsYWluXGZzMjBcY 7NtUHE3EBprDqWwmPLo eemwKORiNrOlsRknw0Q xDH6zPJYuHILegL6ab0 e9FZWynssznSufWQffb L27MjDuF3DyEBYWZ2xX SVZFIEZPUiBDQVJDSU5 EEGHuXSYSFiVKB0JLKy QvV8zJLIXQZDFYL2KXF T9FNEYVCXZRDnEoA0GE N3QHXTRDYtNQCu5TJE3 cBLZTXJYOO55IOC9DEW xwYXJccGFyZFxwYXIgQ kXIU3TLPUkiJXW1 Comment (test code = 9835) l2iuiDOsPMVqbAV5JgO nOCFxl8jqq3WkbWQivL BdXNyhuYEavjQcuw52v TX5uY47NV7fBBQtRfX2 QEQifdR1Nty2MJXkKXM oxAHmV617y7cwj3qpef EnoRX7qJuzPJEixwxoK dF4AVubQWWdtmzrAXx5 NMjjYDMtcZG0WWWtvYD yW3BwWZRzVZ3fdhx6EK Q1HXvuNBJmUdC5RXAsp BVpXOCwgCgmVEtjq870 YVN6FfOqSHPbgcJqdFm pvU7iNlQcVOEXlT33hf 5tvKM8y0HyDH9sJ8FlJ QG7USuamlZuyrPaxBJf Jg3jgKJrADQqRXDcvT7 1XZWcPALkWX0uiWTypP ljIGNlbGxzIHRvIGJlI ZWbc6j4wVSwBVMmbeOg nGGcy9JrVOUslsA3IBe wYXRjaHkpLCBQQVgtOC ppoZT9SSpxrWGkgaslQ WKnUhH0r9IlVGCoEZZf BXBuSGVfKN65UV76LCV fQOkwblFjx0chvbbyAH EQPNk1IYFoYJ4rROPjB RDdLMweIX8eDXQZVOf2 FRDqQT9pSAKzMMOwKEK cPMM4fo0hJggmSNNmUH XisSU0o8ytT6qrDQJgK PRcgA60pd3jjCM7b6Pn FX5oF7UeDCUtmsAijct zIGFyZSBpbiBrZWVwaW 5nIHdpdGggdGhlIGFib 5AcTAMdYWdut3Yrut0d XHBhcn0= Gross Description (test a5isdOTcSFDwjZSPBXe code = [id number]) wMFxhbnNpXHNwbHRwZ3 UrfmthEAxpWW0pLM5si FzcdLXfcXWgFB4CUNYx ZmYxXHBhcGVydzEyMjQ qEFIikECkfCK9LWFnCD 1hcmdsMTgwMFxtYXJnc nV6ISIlqZNyU4OhCTGo AC1ewdimUPG5OVpsqK9 hadYLIlfoUt1bzTNzkY tcZjFcZmNoYXJzZXQwX LKfdYoyKJCmTZb3yW0R BsuaQ85zf3B9Ypj7AQG fTHUqF4QbIB5kXYRpdF RuO93MEijjKLY2AKOQV yzwPVMcLN0Tl8ckFRGs bDQqHLQ1SXiblRMcTGD sJQMkTTm3BKOoYNbqjB WdYY5ltCmmWqzezAkbr 2VjdCBcXGlkIDUxMDAy PGhaUUAdFD8IXxNyDNI fYVDhCOBdTMq1WCf0DN 7DCqPlAMPoWPVqHml3Z rDzALm8MLhuWT2BMUf0 HmN8ZfJzEPX0STT8PLQ cXHQgMiBcXGYgQXJpYW wgXFxmcyAxMCBcXGZiI SsuPsrxMOmoZ98wuDez pB8tFvdanwTiOOB7BSP hciANClxwbGFpblxlcG ljTmVzdERvYzEgDQpcb HRycGFyXGxpbjBccmlu MCANClxsdHJjaFxiXGN mMVxmczIwIExlZnQgcG VsdmljIHNvZnQgdGlzc 6MxVZ4mOJCaFIPhyC8d g5xno4h8fSPnjI6mGBS rZXJzOlxiMFxjZjAgIE 86yFUzhCusHXBysf06p Uc2USHzs3WaURZzw9Mq sFNaHQ1eJOI3bnldDmY xLjQgeCAwLjUgeCAwLj WhK18stV2qQAwjkcKkK XRlLCBlbnRpcmVseSBz iODvmXP3JEAgpP4vDLY uICBccHJvdGVjdHtcZm pwkBZ3VPgeYrdlsH2zw CBIWVBFUkxJTksgbmFt NX5QSJ9QPeBYIM15KhT sTGM1TMdRE3CXoWQ8Xo c8BCa6hKqpJwmhehHpz YAjUxNNoR1QQObkZrxh dJP2VQwlCayvyE5gnRS IWVBFUkxJTksgbmFtZT 7QIF0KPR7NhZVvUNV9f HV7RNPGFpwlfBF8aNE1 fS00BNUuKBLqlTJcURc hU502AEFtVQuuKOg2ez NoXGZzMjAgDQpcZXBpY 04qr9LTa1PgPOShm9eg yVnwm1WnyQFyDWclDUG lvUCfRVhsiO1oQgDsf2 nvcTc2XLbgxaH7BZFcb r0qzQbwqY9eCEfiy1sz QQF8LLVpoHHavXOpZRo diGlgaK8dSnYvWbo2RD qsFTFjZ7NkM9GmmnY6N HBsYWluXGZzMTYgDQp9 Biomarker Block(s) (test a4xmeRFxXGAkoAE1CaA code = 9841) aQGXmt3ljw9BgbPUxnT MdFSzmvDTlepAmhr58e TJ1iQ75BZ2hCYDoMxA7 QHIephW9Nwj9WPWfOMR ypNDfP744b0utg0yvog MtbUL2nNvmYEBejpjwB tO3DMwwMFJblxemKHm9 VHlfHAQojCZ3SZUpkIK hR3QqUQUvAS5ntld1OT D2JJanSCQsPfR5TLGps EDiERUjaGfbKUalg321 BQC4YbYqGWLfwuNpmFp gvT1aDpDbNYYGQpCWZI kcLXRfHbvdNc5CCOGij lxwYXJ9 Disclaimer (test code = r7tyfPIxFNDwdOMwQoD 9844) oYECuDJWwz8alADYvbA FuZzEwMzNcZnRuYmpcd QHnJYXbYmTkk1inl600 yPKuo3qpPYOgVvC0qUY wPGAhqAZlQ780QHIbLU pun2gth6HiCNStbDZmx 2G2WFOYkstlbQs3mPad D33nw2G9AruwJ3bpTZB dMDIyA0VrNB5jCAVqYl a3AEL0HVZ5EIGrSVYzV 2YmDO5rHXDpnCRaGAi2 d9xqtXyyLWOxMBH7c9d dSBbdglFyKX8tau1jgG c1x7kkauXzFAJqXUKgz FFCSDNfZ0VxdXgjRg2e uRo8bCccGypvSIT0Gqc 8LU9zxl59txh8qSlcVE OgjuqvXxL4VIcaTEBvy lqgXQo1BKliSJFokPD5 TAUvyOQfS0GhUOFtSD9 hllz1SGL6AYqeXVQcCr L2HUJjhKVdRMWqmFpsQ Jwkl440SRF8DdRuSL5k A0Iur3H4aJ1sdBEhJUW dzHQsObExSBHfak6meG MzHDyvq7XpZXE2jfA2c GUktRXoPUJjTA90Yytb r3UmIhjcHLN2CTLdgaC kp9Egd2ddLnPgpuObK4 szG6JfOIHtXGPyUPHmS hNwtiUek7Bup8PxuSMs xJh7d5vaQDXrDFTxwNc ir1cnAKS5PPQxZ0V3tA Pxt0xkZEhkGAQcxHI2k mR5WEEgsEHmI9HptJ4j GHPuOO5ahgv0l7qpWAR 2PSijAKTnCwQ2tgX1SG BcaGVhZGVyeTcyMFxmb 806NYY0TnDaPOZxk8Sx N7MyrEugA87luWtrP78 cKCRqcTtkjF9kqJulnW 5cZjBcZnMyNFxxbFxwb UEptdfgAGjnriI6AMnh aoenXAFuEAigM6nmMpS lPMTlpDgnFVouw9XdHR OwGPQnBfhkfsT7UWINh 07zVENlr9XlXCVfjL6e yGGpOSqghfTonAM9JHn hdmUgYmVlbiBkZXZlbG 9gZDEfEG8zKFPuboMla r6ojxNfUYQpKYQnH4Ae cmlzdGljcyBkZXRlcm1 rnvRkCOM4LUEUDZ5RYF DsWAYkw09uIAUzvYejc R8qhWUorrXgMHVwn6Hg uX6jkKVJCNJkP0zfQM8 jGRyvc4JvkAAakZFunC V8ARKwo2IjLzDjgjZzm WMogPXpF8WjlCrgZ3ai POUfODExzgIejYYut9D dEFXziRW6aIZrRO6NYd BEn18nUWDuGDGHztElX UOktQlpfNY2gsQ8rW1x LiBJZiBhcHBsaWNhYmx fVYVst588pa1aodF4FB ZlSWJyrchxm2LwISIaX KDlsG92PUYlAHZuiu2k tinfmMIzukFfC8Gvzws 8xF9dNUTbVXnsIXHyFE ZzMjJcbGFuZzEwMzNca GljaFxmMVxkYmNoXGYx CNjfP6fxMxKeRxYyFol wYXJ9 [facility] Material Request 2021-10-25 19:36:01 Test Item Value Reference Range Interpretation Comments Archived Material Previously diagnosed (test code = 34168) tissues from [id number] were selected for molecular analysis. Results will be reported separately. [facility]OL[facility] [id number] 08:35:00 Test Item Value Reference Range Interpretation [...] PATIEN TS. CBC W/PLT COUNT & AUTO [id number] 08:10:00 Test Item Value Reference Range Interpretation [...]
--- NOTE | 2022-08-31 22:14 | RAD REPORT ---
EXAM DESCRIPTION: RAD - Knee Right 3 View - 08/31/2022 9:54 pm CLINICAL HISTORY: PAIN COMPARISON: No comparisons FINDINGS: Moderate tricompartmental osteoarthritis is present. No fracture or joint effusion seen.
--- NOTE | 2022-08-31 22:30 | ER ---
Nurse's Notes [facility] Name: Misa Claros Age: 72 yrs Sex: Female : 1950 Arrival Date: 08/31/2022 Time: 19:17 Bed Treatment Private MD: Diagnosis: Sciatica, right side;Obesity, unspecified Presentation: 08/31 19:33 Chief complaint: Right knee pain that is chronic, pain became worse today. Denies hb injury. Coronavirus screen: At this time, the client does not indicate any symptoms associated with coronavirus-19. Ebola Screen: No symptoms or risks identified at this time. Initial Sepsis Screen: Does the patient meet any 2 criteria? Yes Does the patient have a suspected source of infection? No. Patient's initial sepsis screen is negative. Risk Assessment: Do you want to hurt yourself or someone else? Patient reports no desire to harm self or others. Onset of symptoms was August 31, 2022. 19:33 Method Of Arrival: Wheelchair hb 19:33 Acuity: VINOD 4 hb Historical: - Allergies: 19:34 Codeine; hb 19:34 Morphine; hb - PMHx: 19:34 Atrial fibrillation; Back pain; Hypertension; sciatica; uterine cancer; diagnosed a hb year ago; - Immunization history:: Flu vaccine is not up to date. - Social history:: Smoking status: Patient reports the use of cigarette tobacco products. - Family history:: not pertinent. Screenin:36 Abuse screen: Denies threats or abuse. Denies injuries from another. Nutritional tw5 screening: No deficits noted. Tuberculosis screening: No symptoms or risk factors identified. Fall Risk None identified. Assessment: 21:29 General: Appears uncomfortable, Behavior is calm, cooperative, appropriate for age, tw5 Reports "I am having this pain that goes all the way down the back of my leg and I just feel like my right knee is also so swollen up .". Pain: Complains of pain in right knee Pain currently is 10 out of 10 on a pain scale. Neuro: Level of Consciousness is awake, alert, obeys commands, Oriented to person, place, time, situation. 23:24 General: Reports "I am feeling a lot better. The pain is almost gone.". Pain: Pain tw5 currently is 2 out of 10 on a pain scale. Vital Signs: 19:33 BP 155 / 108; Pulse 101; Resp 18; Temp 98.5; Pulse Ox 100% on R/A; Weight 98.88 kg; hb Height 5 ft. 4 in. (162.56 cm); Pain 10/10; 21:36 Pulse 88; Resp 18; Pulse Ox 100% ; Pain 10/10; tw5 23:24 Pulse 95; Resp 18; Pulse Ox 100% on R/A; Pain 2/10; tw5 23:24 Pain 2/10; tw5 19:33 Body Mass Index 37.42 (98.88 kg, 162.56 cm) hb ED Course: 19:17 Patient arrived in ED. jj6 19:34 Triage completed. hb 19:34 Arm band placed on. hb 20:27 Jaison Donaldson MD is Attending Physician. alessia 21:28 Fe Thacker is Primary Nurse. tw5 21:36 Patient has correct armband on for positive identification. Pulse ox on. tw5 21:57 Knee Right 3 View XRAY In Process Unspecified. EDMS 22:28 Dael Quinteros MD is Referral Physician. [facility] 22:46 No provider procedures requiring assistance completed. Patient did not have IV access tw5 during this emergency room visit. Administered Medications: 22:46 Drug: Decadron (dexamethasone) 10 mg Route: PO; tw5 23:25 Follow up: Response: No adverse reaction tw5 22:46 Drug: Demerol (meperidine) 50 mg Route: IM; Site: left gluteus; tw5 23:24 Follow up: Pain 2/10 Adult; Response: No adverse reaction; Pain is decreased tw5 23:25 Follow up: Response: RASS: Alert and Calm (0) tw5 22:46 Drug: Phenergan (promethazine) 25 mg Route: IM; Site: right gluteus; tw5 23:24 Follow up: Response: No adverse reaction tw5 Medication: 21:36 VIS not applicable for this client. tw5 Outcome: 22:29 Discharge ordered by . alessia 23:23 Discharged to home via wheelchair, with family. tw5 23:23 Condition: improved 23:23 Discharge instructions given to patient, Instructed on discharge instructions, follow up and referral plans. medication usage, Demonstrated understanding of instructions, follow-up care, medications, Prescriptions given X 3. 23:25 Patient left the ED. tw5 Signatures: Dispatcher [employer] EDJaison Kam MD MD cha Baxter, Heather, RN RN hb Wood, Tiffany tw5 Jennifer Ye jj6
--- NOTE | 2022-08-31 22:30 | EDPHYS ---
Physician Documentation [facility] Name: Misa Claros Age: 72 yrs Sex: Female : 1950 Arrival Date: 08/31/2022 Time: 19:17 Bed Treatment Private MD: SCAR Physician Jaison Donaldson HPI: 08/31 22:19 This 72 yrs old Black Female presents to ER via Wheelchair with complaints of Leg Pain. alessia 22:19 The patient presents with decreased range of motion, pain. The complaints affect the alessia lateral aspect of right thigh, lateral aspect of right knee, lateral aspect of right calf and lateral aspect of right foot. Context: The problem was sustained at an unknown site. Onset: The symptoms/episode began/occurred 5 day(s) ago. Modifying factors: The symptoms are alleviated by nothing. the symptoms are aggravated by nothing. Associated signs and symptoms: The patient has no apparent associated signs or symptoms. Treatment prior to arrival includes: no previous treatment. Severity of symptoms: At their worst the symptoms were moderate, in the emergency department the symptoms are unchanged. The patient has experienced similar episodes in the past, multiple times. Historical: - Allergies: 19:34 Codeine; hb 19:34 Morphine; hb - PMHx: 19:34 Atrial fibrillation; Back pain; Hypertension; sciatica; uterine cancer; diagnosed a hb year ago; - Immunization history:: Flu vaccine is not up to date. - Social history:: Smoking status: Patient reports the use of cigarette tobacco products. - Family history:: not pertinent. ROS: 22:19 Constitutional: Negative for fever, chills, and weight loss, Eyes: Negative for injury, alessia pain, redness, and discharge, ENT: Negative for injury, pain, and discharge, Neck: Negative for injury, pain, and swelling, Cardiovascular: Negative for chest pain, palpitations, and edema, Respiratory: Negative for shortness of breath, cough, wheezing, and pleuritic chest pain, Abdomen/GI: Negative for abdominal pain, nausea, vomiting, diarrhea, and constipation, : Negative for injury, bleeding, discharge, and swelling, MS/Extremity: Negative for injury and deformity, Skin: Negative for injury, rash, and discoloration, Neuro: Negative for headache, weakness, numbness, tingling, and seizure, Psych: Negative for depression, anxiety, suicide ideation, homicidal ideation, and hallucinations, Allergy/Immunology: Negative for hives, rash, and allergies, Endocrine: Negative for neck swelling, polydipsia, polyuria, polyphagia, and marked weight changes, Hematologic/Lymphatic: Negative for swollen nodes, abnormal bleeding, and unusual bruising. 22:19 Back: Positive for decreased range of motion, pain at rest. Exam: 22:19 Constitutional: This is a well developed, well nourished patient who is awake, alert, alessia and in no acute distress. Head/Face: Normocephalic, atraumatic. Eyes: Pupils equal round and reactive to light, extra-ocular motions intact. Lids and lashes normal. Conjunctiva and sclera are non-icteric and not injected. Cornea within normal limits. Periorbital areas with no swelling, redness, or edema. ENT: Nares patent. No nasal discharge, no septal abnormalities noted. Tympanic membranes are normal and external auditory canals are clear. Oropharynx with no redness, swelling, or masses, exudates, or evidence of obstruction, uvula midline. Mucous membranes moist. Neck: Trachea midline, no thyromegaly or masses palpated, and no cervical lymphadenopathy. Supple, full range of motion without nuchal rigidity, or vertebral point tenderness. No Meningismus. Chest/axilla: Normal chest wall appearance and motion. Nontender with no deformity. No lesions are appreciated. Cardiovascular: Regular rate and rhythm with a normal S1 and S2. No gallops, murmurs, or rubs. Normal PMI, no JVD. No pulse deficits. Respiratory: Lungs have equal breath sounds bilaterally, clear to auscultation and percussion. No rales, rhonchi or wheezes noted. No increased work of breathing, no retractions or nasal flaring. Abdomen/GI: Soft, non-tender, with normal bowel sounds. No distension or tympany. No guarding or rebound. No evidence of tenderness throughout. Female : Normal external genitalia. Skin: Warm, dry with normal turgor. Normal color with no rashes, no lesions, and no evidence of cellulitis. MS/ Extremity: Pulses equal, no cyanosis. Neurovascular intact. Full, normal range of motion. Neuro: Awake and alert, GCS 15, oriented to person, place, time, and situation. Cranial nerves II-XII grossly intact. Motor strength 5/5 in all extremities. Sensory grossly intact. Cerebellar exam normal. Normal gait. Psych: Awake, alert, with orientation to person, place and time. Behavior, mood, and affect are within normal limits. 22:19 Back: pain, that is mild, ROM is painful, with all movement, normal spinal alignment noted, CVA tenderness, is absent. Vital Signs: 19:33 BP 155 / 108; Pulse 101; Resp 18; Temp 98.5; Pulse Ox 100% on R/A; Weight 98.88 kg; hb Height 5 ft. 4 in. (162.56 cm); Pain 10/10; 21:36 Pulse 88; Resp 18; Pulse Ox 100% ; Pain 10/10; tw5 23:24 Pulse 95; Resp 18; Pulse Ox 100% on R/A; Pain 2/10; tw5 23:24 Pain 2/10; tw5 19:33 Body Mass Index 37.42 (98.88 kg, 162.56 cm) hb MDM: 20:27 Patient medically screened. [facility] 22:22 Differential diagnosis: contusion, tendonitis. Data reviewed: vital signs, nurses alessia notes, radiologic studies. Data interpreted: environmental monitoring specialist: rate is 88 beats/min, rhythm is regular, Pulse oximetry: on room air is 100 %. Test interpretation: by ED physician or midlevel provider: plain radiologic studies. Counseling: I had a detailed discussion with the patient and/or guardian regarding: the historical points, exam findings, and any diagnostic results supporting the discharge/admit diagnosis, radiology results, the need for outpatient follow up, for definitive care, a family practitioner, a orthopedic surgeon. 08/31 20:27 Order name: Knee Right 3 View XRAY alessia Administered Medications: 22:46 Drug: Decadron (dexamethasone) 10 mg Route: PO; tw5 23:25 Follow up: Response: No adverse reaction tw 22:46 Drug: Demerol (meperidine) 50 mg Route: IM; Site: left gluteus; tw5 23:24 Follow up: Pain 2/10 Adult; Response: No adverse reaction; Pain is decreased tw5 23:25 Follow up: Response: RASS: Alert and Calm (0) tw5 22:46 Drug: Phenergan (promethazine) 25 mg Route: IM; Site: right gluteus; tw5 23:24 Follow up: Response: No adverse reaction tw5 Disposition Summary: 08/31/22 22:29 Discharge Ordered Location: Home alessia Problem: new alessia Symptoms: have improved alessia Condition: Stable alessia Diagnosis - Sciatica, right side alessia - Obesity, unspecified alessia Followup: alessia - With: Private Physician - When: 2 - 3 days - Reason: Recheck today's complaints, Continuance of care, Re-evaluation by your physician Followup: alessia - With: Dale Quinteros MD - When: 2 - 3 days - Reason: Recheck today's complaints, Continuance of care, Re-evaluation by your physician Discharge Instructions: - Discharge Summary Sheet alessia - Obesity, Adult alessia - Sciatica alessia - Sciatica, Mocx-wg-Hxos alessia - Obesity, Adult, [id number]-Gvau [facility] Forms: - Medication Reconciliation Form [facility] - Thank You Letter [facility] - Antibiotic Education [facility] - Prescription Opioid Use [facility] Prescriptions: - dexamethasone 1 mg Oral tablet - take 1 tablet by ORAL route 2 times per day; 10 tablet; Refills: 0, Product [facility] Selection Permitted - Tramadol 50 mg Oral Tablet - take 2 tablet by ORAL route every 8 hours as needed; 26 tablet; Refills: 0, [facility] Product Selection Permitted - Cyclobenzaprine 5 mg Oral Tablet - take 1 tablet by ORAL route 3 times per day As needed; 15 tablet; Refills: 0, [facility] Product Selection Permitted Signatures: Dispatcher [employer] Jaison Gutierrez MD MD cha Baxter, Heather, Fe Fatima RN tw5
[2022-08-31] MEDS ORDERED: PROMETHAZINE INJ 25 MG/ML AMP ONE (22:31)
[2022-08-31] MEDS ORDERED: dexAMETHasone 10 MG/ML VIAL ONE (22:31)
[2022-08-31] MEDS ORDERED: MEPERIDINE HCL 25 MG/ML SYR ONE (22:33)
[2022-09-01 01:11] VITALS: BP 155/108; TEMP 98.5; O2SAT 100
== END 2022-08-31 23:25 | disposition home or self-care (01) ==
LOC: ER 19:15
DX: M54.31 Sciatica, right side (principal); E66.9 Obesity, unspecified; Z68.37 Body mass index [BMI] 37.0-37.9, adult; I10 Essential (primary) hypertension; Z88.5 Allergy status to narcotic agent
CPT/HCPCS: 73562; 96372; 99284; J2550; J1100; J2175

== ENCOUNTER 2022-11-10 11:53 | Day surgery (SDC) | payer OTHER ==
[2022-11-08 10:50] LABS: Absolute Lymphocytes (CBC) 1.2 K/uL (0.7-4.9); Hematocrit 37.2 % (36.0-45.0); MCV 93.6 fL (80-100); MPV 7.8 fL (7.6-11.3); RBC Red Blood Cell Count 3.98 M/uL (3.86-4.86)
[2022-11-08 11:00] LABS: Protime INR 1.13
[2022-11-08 11:07] LABS: Potassium 3.8 mmol/L (3.5-5.1)
--- NOTE | 2022-11-08 12:29 | RAD REPORT ---
EXAM DESCRIPTION: Berto Godinez And Clive (2 Views)11/08/2022 12:16 pm CLINICAL HISTORY: Preop for cardiac catheterization COMPARISON: 2021 FINDINGS: The lungs appear clear of acute infiltrate. The heart is mildly to moderately enlarged IMPRESSION: No acute abnormalities displayed
--- NOTE | 2022-11-08 12:57 | EKG ---
Test Date: 2022-11-08 Test Time: 10:03:34 [employer]: REJI MEASUREMENT RESULTS: Intervals: Rate: 96 GA: QRSD: 90 QT: 330 QTc: 416 [place]: P: GA: QRS: 81 T: -86 INTERPRETIVE STATEMENTS: Atrial fibrillation with premature ventricular or aberrantly conducted complexes Nonspecific ST and T wave abnormality, probably digitalis effect Abnormal ECG Compared to ECG 01/10/2022 03:25:54 Ventricular premature complex(es) now present Myocardial infarct finding no longer present Possible ischemia no longer present ST (T wave) deviation still present Electronically Signed On 11-08-22 12:56:35 PART TIME by Mark Mcdowell
[~2022-11-10 11:53] MED LIST: NA CHLORIDE 0.9% 500 ML ONE
[2022-11-10] MEDS ORDERED: FENTANYL CITR 100 MCG/2 ML ONE ×2 (12:12→14:33)
[2022-11-10] MEDS ORDERED: MIDAZOLAM HCL 2 MG/2 ML INJ ONE ×2 (12:12→14:34)
[2022-11-10] MEDS ORDERED: HEPARIN 5000 UNIT/ML 1 ML VIAL ONE (12:12)
[2022-11-10] MEDS ORDERED: ATROPINE SULF 1 MG/10 ML SYR IV ONE (12:13)
[2022-11-10] MEDS ORDERED: CLOPIDOGREL 75 MG TABLET ONE (12:13)
[2022-11-10] MEDS ORDERED: VERAPAMIL HCL 10 MG/4 ML VIAL IV ONE (12:13)
[2022-11-10] MEDS ORDERED: HEPARIN 10,000 UNIT/10 ML VIAL IV ONE (12:13)
[2022-11-10] MEDS ORDERED: ASPIRIN 325 MG TAB ONE (12:13)
[2022-11-10] MEDS ORDERED: TICAGRELOR 90 MG TABLET PO ONE (12:13)
[2022-11-10] MEDS ORDERED: HEPA 1000U/500MLS 1,000 UNIT/500 ML BAG IV ONE (13:51)
[2022-11-10 16:49] VITALS: BP 118/54; O2SAT 99
--- NOTE | 2022-11-11 02:50 | OP ---
Date of Procedure: 11/10/2022 Surgeon: DAVID WYATT Procedure Performed: Selective coronary angiogram. Indication: Abnormal stress test. Access: Right radial artery 6-Iraqi closed with TR band. Complications: None. Estimated Blood Loss: Bleeding less than 10 mL. Description Of Procedure: After risks, benefits, and alternatives were explained, the patient agreed to the proceed and signed informed consent. The patient was brought into the cardiac catheterizatio n laboratory and prepped and draped in usual sterile fashion. Then I accessed right radial artery us ing pediatric micropuncture kit, placed a 6-Iraqi Slender sheath and a 5-Iraqi Ashley 4 catheter int o the aortic root, engaged left main and then right coronary artery, took standard views and then the catheter was removed and sheath was removed, and placed TR band with good hemostasis. Findings: 1.Left main: Large and normal. 2.LAD: Normal. Normal diagonal branches. 3.Left circumflex: Large, nondominant and normal. 4.RCA: Small, nondominant and normal. Conclusion: Normal coronary arteries. Plan: Medical management. SR/MODL Voice ID: [id number] Report ID: [id number]
== END 2022-11-10 17:03 | disposition home or self-care (01) ==
LOC: CCL 11:53
PROVIDERS: ATTEND Internal Medicine
DX: R94.39 Abnormal result of other cardiovascular function study (principal); I11.0 Hypertensive heart disease with heart failure; I50.21 Acute systolic (congestive) heart failure; I48.0 Paroxysmal atrial fibrillation; I73.9 Peripheral vascular disease, unspecified; E78.2 Mixed hyperlipidemia; E78.00 Pure hypercholesterolemia, unspecified; Z87.891 Personal history of nicotine dependence; Z79.01 Long term (current) use of anticoagulants; Z79.899 Other long term (current) drug therapy; Z88.5 Allergy status to narcotic agent; Z85.42 Personal history of malignant neoplasm of other parts of uterus
CPT/HCPCS: 93005; 85025; 80048; 36415; 85610; 85730; 71046; 93454; 76937; C1893; Q9966; J1644 ×2; J2250 ×2; J3010 ×2; J7040; J0461

== ENCOUNTER 2022-11-10 20:23 | Emergency (ER) | payer OTHER ==
--- OUTSIDE RECORDS SUMMARY | 2022-11-10 20:32 | XMS REPORT | Clinical Summary ---
:1950 Author Organization [facility] MD [facility] Center Address [address] [place] [address] Care Team Providers Name Role Phone Deonna Leiva MD Primary Care Provider Denzel Pritchett "Hattie" Unavailable [phone] Mateo Chavez MD Unavailable David Dobson MD Unavailable [phone] Allergies Active Allergy Reactions Severity Noted [...] Discontinued mg tablet by mouth as 1 (Therapy needed. completed) ergocalciferol 50,000 Units 0 [...] 12/23 Discontinued mg tablet (six) hours 2 22 (Therapy as needed. completed ) HYDROcodone-acetamin Take [...] cancer to nausea or the peritoneum vomiting. letrozole (Femara) Take 1 tablet 90 tablet 3 0 Discontinued 2.5 mg (2.5 mg) by 2 23 tabletIndications: mouth daily Serous for 90 days. 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 twice daily with a [id number] score 4 (age, gender, CHF, HTN) Nonischemic [...] twice daily, spironolactone 50 mg p.o. da corrine with recommendation to continue curr ent regimen. Discussed with patient the increased risk of sudden cardiac her low ejection fraction and the recommendation for LifeVest prior to reevaluation to permanent ICD implant for which alexander ent declined. Patient is already had this discussion with her private cytogeneticist concerning a permanent ICD implant and knows she would need a follow-up appoint ment within 3 months. Patient states she elected to have her further management with her local cytogeneticist. 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 Encounters Date Type Specialty Care Team Description 10/20/2022 Follow-Up Gynecology Deonna Leiva Serous cysta denocarcinoma, NOS of endometrium (Primary Dx); MD Viraj Other specified polyneuropathy; Mixed urinary i ncontinence 10/20/2022 Travel 10/19/2022 Ancillary Procedure Radiology Deonna Leiva MD cystadenocarcin queenie, NOS of endometr ium 10/19/2022 Hospital Encounter Lab Deonna Leiva MD cystadenocarcin queenie, NOS of endometr ium 10/19/2022 Travel 08/14/2022 Follow-Up Pain Medicine Nolberto Israel Chronic pain (Primary JEmeli, Dx) 08/14/2022 Travel 07/21/2022 Office Visit Gynecology [...] Travel 06/23/2022 Infusion Infusion Services Deonna Leiva Metastdaryn tic cancer to the peritoneum (Primary Dx); MD Viraj Neoplasm, malignant of endometrium Chloe Pablo, RN 06/23/2022 Office Visit Gynecology Deonna Leiva [...] Pain Medicine Nolberto Israel Chronic pain (Primary JMD Emeli Dx) 05/15/2022 Travel 04/26/2022 Infusion Infusion Services Deonna Leiva Metasta tic cancer to the peritoneum (Primary Dx); MD Viraj Neoplasm, malignant of endometrium Estee Bailon, COREY 04/26/2022 Office Visit Gynecology Deonna Leiva Neoplasm, ma lignant of endometrium (Primary Dx); MD Viraj Metastatic canc er to the peritoneum; Encounter for a ntineoplastic chemotherapy; Agranulocytosis secondary to cancer chemotherapy; Morbid (severe) obesity due to excess calories; Congestive hear t failure, not otherwise specified 04/26/2022 Orders Only Gynecology Deonna Leiva, ma lignaster Cali MD of endometrium (Primary Dx) 04/26/2022 Travel 04/25/2022 Orders Only Gynecology Deonna Leiva MD 04/20/2022 Ancillary Procedure Radiology Gabi Basurto [...] 03/17/2022 Travel 03/15/2022 Orders Only Gynecology Deonna Leiva, ma lignant of endometrium (Primary Dx); MD Viraj Metastatic canc er to the peritoneum; Essential (prim vinod) hypertension; Cardiomegaly; Coronary artery disease due to calcified coronary lesion; Nonischemic con gestive cardiomyopathy; Systolic conges tive heart failure, not otherwise specified 03/12/2022 Refill Cardiology Angel Nash, Cardiomegalrubén ; Coronary artery disease due to calcified coronary lesion 03/09/2022 Orders Only Gynecology Christian Auguste PA 03/01/2022 Refill Pain Medicine Nolberto Israel MD 02/17/2022 Infusion Infusion Services Deonna Leivaa tic cancer to the peritoneum (Primary Dx); D., MD Neoplasm, malignant of endometrium Vickie Graves RN 02/17/2022 Orders Only Gynecology Deonna Leiva MD 02/17/2022 Travel 02/10/2022 Office Visit Gynecology Deonna Leiva Neoplasm, ma [...] Pain Medicine Nolberto Israel Chronic pain (Primary JEmeli, Dx) 02/09/2022 Orders Only Gynecology Deonna Leiva Neoplasm, ma raul Cali MD of endometrium (Primary Dx) 02/09/2022 Travel 01/24/2022 Telephone Oncology Cherrie Calles RN 01/13/2022 Infusion Infusion Services Deonna Leiva Metasta tic [...] the peritoneum 12/26/2021 Orders Only Gynecology Christian Auguste, PA 12/26/2021 Telephone Pain Medicine Kathleen Emanuel [...] to the peritoneum 12/13/2021 Hospital Encounter Cardiology Neelam Grant, Parox ysmal atrial PA fibrillation 12/13/2021 Follow-Up Cardiology Angel Nash, Nonischemic congestive cardiomyopathy (Primary Dx); Coronary artery disease due to calcified coronary lesion; Neelam Grant, Preoperativ e cardiovascular examination; PA Paroxysmal atri al fibrillation; Essential (prim vinod) hypertension 12/13/2021 Travel 12/12/2021 Telephone Gynecology Christian Auguste PA 12/07/2021 Telemedicine Gynecology Deonna Leiva Neoplasm, ma lignant of endometrium (Primary Dx); MD Viraj 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 Christian Auguste PA 12/02/2021 Telephone Gynecology Dorinda Vasquez RN 11/28/2021 Hospital Encounter Cardiology Angel Nash, Cardio megaly (Primary Dx); Coronary artery disease [...] Orders Only Cardiology Angel Nash, Cardiomegaly (Primary MD Dx) 11/21/2021 Travel 11/18/2021 Consult Internal Medicine [...] Deonna Leiva Pre o p labs (Primary Viraj, Dx) 11/18/2021 Clinical Support Deonna Glez Suspecte d COVID-19 (Primary Dx); MD Viraj Neoplasm, malignant of endometrium; Rosalinda Topete Metastatic ca ncer to the peritoneum; Margaret, RN Morbid (severe) obesity due to excess [...] Only Cardiology Angel Nash MD 11/16/2021 Travel after 11/10/2021 Immunizations Name Administration Dates Next Due Pfizer SARS-CoV-2 Vaccination (Purple Cap) 05/14/2021, 10/2020 Surgical History Surgery Date Site/Laterality Comments SECTION, CLASSIC 01/17/1981 MO LAPAROSCOPY TOT 11/28/2016 N/A Procedure: RO BOTIC HYSTERECTOMY >250 G ASSISTED TOT AL W/TUBE/OVAR HYSTERECTOMY, IL NI LAPAROTOMY, CYST OSCOPY; Surgeon: Deonna Leiva MD; Loc ation: MAIN OR; Service : MOLDED GOODS INSPECTOR TRIMMER - GYNECOLOGIC ONCO LOGY MO SALPINGO-OOPHORECTOMY 11/28/2016 Bilateral Procedu re: ROBOTIC COMPL/PRTL UNI/BI SPX ASSISTED SALPINGO-OOPHORE CTOMY; Surgeon: Deonna Leiva MD; Loc ation: MAIN OR; Service : MOLDED GOODS INSPECTOR TRIMMER - GYNECOLOGIC ONCO LOGY MO LMTD LMPHADEC STAGING 11/28/2016 Abdomen/Bilateral Proce dure: BILATERAL SPX PEL&PARA-AORTIC PELVIC BIOPS IES AND OMENTAL BIOPSY; Surgeon: Deonna ureña MD; Location: MAIN O R; Service: MOLDED GOODS INSPECTOR TRIMMER - GYNECOLOGIC ONCO LOGY MO INTRAOP SENTINEL LYMPH 11/28/2016 Bilateral Proced ure: INTRAOPERATIVE NODE ID W/DYE INJECTION LYMPHATI C MAPPING; Surgeon: Deonna Leiva MD; Loc ation: MAIN OR; Service : MOLDED GOODS INSPECTOR TRIMMER - GYNECOLOGIC ONCO LOGY CHOLECYSTECTOMY 05/25/2018 - [...] in contact with No / Unsu re 10/20/2022 11:13 AM SHOT PEEN OPERATOR someone who was confirmed or suspected [...] Sign Reading Time Taken Comments Blood Pressure 108/69 10/20/2022 11:23 AM SHOT PEEN OPERATOR Pulse 55 10/20/2022 11:23 AM SHOT PEEN OPERATOR Temperature 36.4 C (97.5 F) 10/20/2022 11:23 AM SHOT PEEN OPERATOR Respiratory Rate 17 10/20/2022 11:23 AM SHOT PEEN OPERATOR Oxygen Saturation 96% 03/17/2022 9:50 AM CDT Inhaled Oxygen Concentration - - Weight 98.4 kg (216 lb 14.9 oz) 10/20/2022 11:23 AM SHOT PEEN OPERATOR Height 161.5 cm (5' 3.58") 10/19/2022 8:43 AM SHOT PEEN OPERATOR Body Mass Index 37.73 10/19/2022 8:43 AM SHOT PEEN OPERATOR Plan of Treatment Date Type Specialty Care Team Description 11/13/2022 Follow-Up Pain Medicine Nolberto Israel MD [address] [place], [place] [address] (Wo rk) 01/19/2023 Lab Lab Deonna Leiva MD [address], [place] [address] (Wo rk) 01/19/2023 Follow-Up Gynecology Deonna Leiva MD [address] [place], [place] [address] (Wo rk) 04/03/2023 Follow-Up Colorectal Surgery Marimar Doshi MD [address] [place], [place] [address] (Wo rk) 04/19/2023 Ancillary Procedure Radiology Karl Leiva MD [address] [place], [place] [address] (Wo rk) Health Maintenance Due Date Last Done Comments COVID-19 Vaccination (3 - Mixed Product 06/11/2021 05/14/20 21, 04/25/2021 risk series) Procedures Procedure Name Priority Date/Time Associated Diagnosis Comme nts PETCT SUBSEQUENT Routine 10/19/2022 10:16 Serous Results for this TREATMENT STRATEGY AM SHOT PEEN OPERATOR cystadenocarcinoma, pr ocedure are in NOS of endometrium the resul ts section. CANCER ANTIGEN 125 Routine 10/19/2022 8:09 Serous Result s for this AM SHOT PEEN OPERATOR cystadenocarcinoma, procedur e are in NOS of endometrium the resul ts section. MANUAL DIFFERENTIAL Routine 07/21/2022 10:27 Metastatic cancer [...] TOTAL Routine 06/23/2022 1:39 Metastatic cancer to R [...] Routine 11/28/2021 10:10 Cardiomegaly HEART CATH AM SHOT PEEN OPERATOR POC OXIMETRY VENOUS Routine 11/28/2021 9:44 Resul ts for this AM SHOT PEEN OPERATOR procedure are i n the results section. POC OXIMETRY ARTERIAL Routine 11/28/2021 9:35 Res ults for this AM SHOT PEEN OPERATOR procedure are i n the results section. POC GLUCOSE SCREEN Routine 11/28/2021 8:47 Result s for this AM SHOT PEEN OPERATOR procedure are i n the results section. CLOT EXPIRATION DATE Routine 11/28/2021 7:41 Resu lts for this AM SHOT PEEN OPERATOR procedure are i n the results section. TMP INTERPRETATION Routine 11/28/2021 7:41 Result s for this ANTIBODY SCREEN AM SHOT PEEN OPERATOR procedure ar e in NEGATIVE the results section. ANTIBODY SCREEN Routine 11/28/2021 7:41 Cardiomegaly Results for this AM SHOT PEEN OPERATOR Coronary artery procedure ar e in disease due to the results calcified coronary section. lesion Essential (primary) hypertension Morbid (severe) obesity due to excess calories ABORH Routine 11/28/2021 7:41 Cardiomegaly Results for this AM SHOT PEEN OPERATOR Coronary artery procedure ar e in disease due to the results calcified coronary section. lesion Essential (primary) hypertension Morbid (severe) obesity due to excess calories TYPE AND SCREEN Routine 11/28/2021 7:41 Cardiomegaly AM SHOT PEEN OPERATOR Coronary artery disease due to calcified coronary lesion Essential (primary) hypertension Morbid (severe) obesity due to excess calories ECHOCARDIOGRAM 2D Routine 11/21/2021 7:51 Cardiomegaly Results for this COMPLETE AM SHOT PEEN OPERATOR procedure are i n the results section. GENERAL LABORATORY ADD Now 11/18/2021 1:50 Pre op labs Re sults for this ON TEST PM SHOT PEEN OPERATOR procedure are i n the results section. COVID-19 (SARS-COV-2) Routine 11/18/2021 12:07 Suspected COVID -19 Results for this PCR-ASYMPTOMATIC MC PM SHOT PEEN OPERATOR procedur e are in the results section. URINALYSIS MICROSCOPIC Routine 11/18/2021 11:36 R esults for this AM SHOT PEEN OPERATOR procedure are i n the results section. URINALYSIS WITH Routine 11/18/2021 11:36 Neoplasm, malignant R esults for this MICROSCOPIC IF AM SHOT PEEN OPERATOR of endometrium procedure are in INDICATED Metastatic cancer to the res ults the peritoneum section. Cardiomegaly Coronary artery disease due to calcified coronary lesion Essential (primary) hypertension URINE CULTURE Routine 11/18/2021 11:36 Neoplasm, malignant Res ults for this AM SHOT PEEN OPERATOR of endometrium procedure are in Metastatic cancer to the res ults the peritoneum section. Cardiomegaly Coronary artery disease due to calcified coronary lesion Essential (primary) hypertension FREE THYROXINE Routine 11/18/2021 11:23 Results f or this AM SHOT PEEN OPERATOR procedure are i n the results section. THYROID STIMULATING Routine 11/18/2021 11:23 Resu lts for this HORMONE AM SHOT PEEN OPERATOR procedure are i n the results section. FRACTIONATED BILIRUBIN Routine 11/18/2021 11:23 Neoplasm, nicole gnant Results for this AM SHOT PEEN OPERATOR of endometrium procedure are in Metastatic cancer to the res ults the peritoneum section. Cardiomegaly Coronary artery disease due to calcified coronary lesion Essential (primary) hypertension TOTAL PROTEIN Routine 11/18/2021 11:23 Neoplasm, malignant Res ults for this AM SHOT PEEN OPERATOR of endometrium procedure are in Metastatic cancer to the res ults the peritoneum section. Cardiomegaly Coronary artery disease due to calcified coronary lesion Essential (primary) hypertension ASPARTATE Routine 11/18/2021 11:23 Neoplasm, malignant Resu lts for this AMINOTRANSFERASE AM SHOT PEEN OPERATOR of endometrium procedure are in Metastatic cancer to the res ults the peritoneum section. Cardiomegaly Coronary artery disease due to calcified coronary lesion Essential (primary) hypertension ALANINE Routine 11/18/2021 11:23 Neoplasm, malignant Resu lts for this AMINOTRANSFERASE AM SHOT PEEN OPERATOR of endometrium procedure are in Metastatic cancer to the res ults the peritoneum section. Cardiomegaly Coronary artery disease due to calcified coronary lesion Essential (primary) hypertension ALKALINE PHOSPHATASE Routine 11/18/2021 11:23 Neoplasm, malign ant Results for this AM SHOT PEEN OPERATOR of endometrium procedure are in Metastatic cancer to the res ults the peritoneum section. Cardiomegaly Coronary artery disease due to calcified coronary lesion Essential (primary) hypertension ALBUMIN LEVEL Routine 11/18/2021 11:23 Neoplasm, malignant Res ults for this AM SHOT PEEN OPERATOR of endometrium procedure are in Metastatic cancer to the res ults the peritoneum section. Cardiomegaly Coronary artery disease due to calcified coronary lesion Essential (primary) hypertension CALCIUM LEVEL TOTAL Routine 11/18/2021 11:23 Neoplasm, maligna nt Results for this AM SHOT PEEN OPERATOR of endometrium procedure are in Metastatic cancer to the res ults the peritoneum section. Cardiomegaly Coronary artery disease due to calcified coronary lesion Essential (primary) hypertension .GLOMERULAR FILTRATION Routine 11/18/2021 11:23 Neoplasm, nicole gnant Results for this RATE AM SHOT PEEN OPERATOR of endometrium procedure are in Metastatic cancer to the res ults the peritoneum section. Cardiomegaly Coronary artery disease due to calcified coronary lesion Essential (primary) hypertension SERUM CREATININE Routine 11/18/2021 11:23 Neoplasm, malignant Results for this AM SHOT PEEN OPERATOR of endometrium procedure are in Metastatic cancer to the res ults the peritoneum section. Cardiomegaly Coronary artery disease due to calcified coronary lesion Essential (primary) hypertension ELECTROLYTE PANEL Routine 11/18/2021 11:23 Neoplasm, malignant Results for this AM SHOT PEEN OPERATOR of endometrium procedure are in Metastatic cancer to the res ults the peritoneum section. Cardiomegaly Coronary artery disease due to calcified coronary lesion Essential (primary) hypertension BLOOD UREA NITROGEN Routine 11/18/2021 11:23 Neoplasm, maligna nt Results for this AM SHOT PEEN OPERATOR of endometrium procedure are in Metastatic cancer to the res ults the peritoneum section. Cardiomegaly Coronary artery disease due to calcified coronary lesion Essential (primary) hypertension GLUCOSE LEVEL Routine 11/18/2021 11:23 Neoplasm, malignant Res ults for this AM SHOT PEEN OPERATOR of endometrium procedure are in Metastatic cancer to the res ults the peritoneum section. Cardiomegaly Coronary artery disease due to calcified coronary lesion Essential (primary) hypertension MANUAL DIFFERENTIAL Routine 11/18/2021 11:23 Neoplasm, maligna nt Results for this AM SHOT PEEN OPERATOR of endometrium procedure are in Metastatic cancer to the res ults the peritoneum section. Cardiomegaly Coronary artery disease due to calcified coronary lesion Essential (primary) hypertension Results CBC Routine 11/18/2021 11:23 Neoplasm, malignant Resu lts for this AM SHOT PEEN OPERATOR of endometrium procedure are in Metastatic cancer to the res ults the peritoneum section. Cardiomegaly Coronary artery disease due to calcified coronary lesion Essential (primary) hypertension APTT Routine 11/18/2021 11:23 Neoplasm, malignant Resu lts for this AM SHOT PEEN OPERATOR of endometrium procedure are in Metastatic cancer to the res ults the peritoneum section. Cardiomegaly Coronary artery disease due to calcified coronary lesion Essential (primary) hypertension PROTHROMBIN TIME Routine 11/18/2021 11:23 Neoplasm, malignant Results for this AM SHOT PEEN OPERATOR of endometrium procedure are in Metastatic cancer to the res ults the peritoneum section. 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 Cardiomegaly Coronary artery disease due to calcified coronary lesion Essential (primary) hypertension CLOT EXPIRATION DATE Routine 11/18/2021 11:15 Res ults for this AM SHOT PEEN OPERATOR procedure are i n the results section. TMP INTERPRETATION Routine 11/18/2021 11:15 Resul ts for this ANTIBODY SCREEN AM SHOT PEEN OPERATOR procedure ar e in NEGATIVE the results section. ANTIBODY SCREEN Routine 11/18/2021 11:15 Neoplasm, malignant R esults for this AM SHOT PEEN OPERATOR of endometrium procedure are in Metastatic cancer to the res ults the peritoneum section. Cardiomegaly Coronary artery disease due to calcified coronary lesion Essential (primary) hypertension ABORH Routine 11/18/2021 11:15 Neoplasm, malignant Resu lts for this AM SHOT PEEN OPERATOR of endometrium procedure are in Metastatic cancer to the res ults the peritoneum section. Cardiomegaly Coronary artery disease due to calcified coronary lesion Essential (primary) hypertension HEMOGLOBIN A1C Routine 11/18/2021 11:15 Neoplasm, malignant Re sults for this AM SHOT PEEN OPERATOR of endometrium procedure are in Metastatic cancer to the res ults the peritoneum section. 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 Anatomical Region Laterality Modality Whole Body Positron Emission To mography (PET) Specimen (Source) Anatomical Collection Method Collection Time Re ceived Time Location / / Volume Laterality 10/20/2022 11:06 AM SHOT PEEN OPERATOR Impressions 10/20/2022 11:48 AM SHOT PEEN OPERATOR No evidence of FDG avid recurrent or metastatic carcinoma. Narrative 10/20/2022 11:48 AM SHOT PEEN OPERATOR FULL RESULT: Examination: FDG PET/CT, 10/19/2022 10:16 AM Clinical History: 72-year-old female wit h metastatic endometrial serous cystadenocarcinoma status post surgery, chemotherapy, vaginal cuff brachytherapy and additional systemic therapy. Indication: Restaging study for subseque nt therapy planning Comparison: PET/CT dated 07/20/2022. Technique: F-18 fluorodeoxyglucose (FDG) 8.6 mCi was administered intravenously via right antecubital fossa. To allow for distribution and uptake of radiotracer, the patient was asked to rest quietly for approximately 60-90 minutes. PET/C T imaging was performed from the vertex to distal thighs. CT scanning was done for attenuation correction, image registration, and diagnosis with scan parameters optimized to minimize radiation exposure to the patient. SUV measurements are reported as maximum SUV based on body weight unless otherwise specified. Findings: Head and Neck: No focal suspicious activ ity is seen within the brain parenchyma. The paranasal sinuses are clear. No evidence of FDG avid or enlarged cervical nodes. Chest: No abnormal activity is seen with in the lungs. A calcified granuloma is noted in the right middle lobe. No suspicious pulmonary nodules or masses. There is no pleural or pericardial effusion. No evidence of FDG avid or enlarged mediast inal, hilar or axillary nodes. Abdomen and Pelvis: No focal FDG avid or suspicious hepatic lesion. Gallbladder is surgically absent. Pancreas, spleen, bilateral adrenal glands are grossly unremarkable. Bilateral renal cysts are again noted. No focal suspicious activity is seen within the bowel loops. The uterus and ovaries are surgically absent. No suspicious activity is identified in the vaginal cuff. No evidence of FDG avid mesen teric, retroperitoneal or inguinal lymph adenopathy. No evidence of FDG avid peritoneal disease. A stable implant in the left anterior pelvis measures 0.8 x 0.5 cm (series 3, image 336) with no suspicious activity. Musculoskeletal: No evidence of FDG avid lytic or sclerotic osseous lesions. A left gluteal subcutaneous nodule is again identified, related to a benign etiology. Prominent activity is identified surrou nding the left shoulder joint and the ri ght scapula, related to a benign etiology. Procedure Note Darryl Bernal MD - 10/20/2022Fo rmatting of this note might be different from the original. FULL RESULT: Examination: FDG PET/CT, 10/19/2022 10:16 AM Clinical History: 72-year-old female wit h metastatic endometrial serous cystadenocarcinoma status post surgery, chemotherapy, vaginal cuff brachytherapy and additional systemic therapy. Indication: Restaging study for subseque nt therapy planning Comparison: PET/CT dated 07/20/2022. Technique: F-18 fluorodeoxyglucose (FDG) 8.6 mCi was administered intravenously via right antecubital fossa. To allow for distribution and uptake of radiotracer, the patient was asked to rest quietly for approximately 60-90 minutes. PET/CT imag ing was performed from the vertex to distal thighs. CT scanning was done for attenuation correction, image registration, and diagnosis with scan parameters optimized to minimize radiation exposure to the patient. SUV m easurements are reported as maximum SUV based on body weight unless otherwise specified. Findings: Head and Neck: No focal suspicious activ ity is seen within the brain parenchyma. The paranasal sinuses are clear. No evidence of FDG avid or enlarged cervical nodes. Chest: No abnormal activity is seen with in the lungs. A calcified granuloma is noted in the right middle lobe. No suspicious pulmonary nodules or masses. There is no pleural or pericardial effusion. No evidence of FDG avid or enlarged mediast inal, hilar or axillary nodes. Abdomen and Pelvis: No focal FDG avid or suspicious hepatic lesion. Gallbladder is surgically absent. Pancreas, spleen, bilateral adrenal glands are grossly unremarkable. Bilateral renal cysts are again noted. No focal suspicious activity is seen within the bowel loops. The uterus and ovaries are surgically absent. No suspicious activity is identified in the vaginal cuff. No evidence of FDG avid mesenteric, retroperitoneal or inguinal lymphadenopathy. No evidence of FDG avid peritoneal disease. A stable implant in the left anterior pelvis measures 0.8 x 0.5 cm (series 3, image 336) with no suspicious activity. Musculoskeletal: No evidence of FDG avid lytic or sclerotic osseous lesions. A left gluteal subcutaneous nodule is again identified, related to a benign etiology. Prominent activity is identified surrounding the left shoulder joint and the right scapul a, related to a benign etiology. IMPRESSION: No evidence of FDG avid recurrent or met astatic carcinoma. Rhonda PÉREZ IMG PETCT ORDERABLES CA 125 (10/19/2022 8:09 AM SHOT PEEN OPERATOR)Only the most recent of11 resultswithin the time period is included. athologist Signature CA 125 9.5 <=38.0 U/mL [facility] Comment: Results greater than 11,500.0 U/mL may n ot be reliable due to matrix effect with extended dilution as it exceeds the harbor master's recommended limit. Caution should be exercised when interpreting such values and done in conjunction with clinical context. Reference intervals are not available fo r male patients. Results should be interpreted in conjunction with clinical context. This test is measured by electrochemilum inescence immunoassay on Baldev Dereck immunoassay analyzers. Results obtained in different methods are not interchangeable. Testing Performed at [facility], [address] [place] [address], [address], [place] [address] Specimen Anatomical Collection Method Collection Time Receive d Time (Source) Location / / Volume Laterality Blood 10/19/2022 8:09 AM 8:29 SHOT PEEN OPERATOR AM SHOT PEEN OPERATOR Rhonda PÉREZ LAB BLOOD ORDERABLES Performing Organization Address City/State/ZIP Code Phon e Number [address] [place] [address] [address] (ABNORMAL) .Serum Creatinine (07/21/2022 10:27 AM CDT)Only the most recent of10 resultswithin the time period is included. athologist Signature Creatinine 1.03 (H) 0.51 - 0.95 [place] mg/dL Comment: Testing performed at [facility], [address] [place], [place] [address] Specimen Anatomical Collection Method Collection Time Receive d Time (Source) Location / / Volume Laterality Blood 07/21/2022 10:27 07/21/2022 AM CDT 10:27 AM CDT Deonna Leiva MD LAB BLOOD ORDERABLES Performing Organization Address City/State/ZIP Code Phon e Number [place] [address] (ABNORMAL) .CBC (07/21/2022 10:27 AM CDT)Only the most recent of10 resultswithin the time period is included. athologist Signature WBC 3.2 (L) 4.0 - 11.0 [place] K/uL Comment: All components of the CBC perfo rmed at [facility], [address] [place] [address] RBC 2.98 (L) 4.00 - 5.50 M/uL [place] Comment: As part of CBC testing performe d at [facility], [address] [place] [address] Hgb 10.5 (L) 12.0 - 16.0 gm/dL [place] Comment: As part of CBC or as an individ ual orderable testing performed at [facility], [address] [place] [address] Hct 31.7 (L) 37.0 - 47.0 % [place] Comment: As part of CBC or as an individ ual orderable testing performed at [facility], [address] [place] [address] MCV 106 (H) 82 - 98 fL [place] Comment: As part of CBC testing performe d at [facility], [address] [place] [address] MCH 35.2 (H) 27.0 - 31.0 pg [place] Comment: As part of CBC testing performe d at [facility], [address] [place] [address] MCHC 33.1 31.0 - 36.0 gm/dL [place] Comment: As part of CBC testing performe d at [facility], [address] [place] [address] RDW-SD 60.1 (H) 35.1 - 46.3 fL [place] Comment: As part of CBC testing performe d at [facility], [address] [place] [address] RDW-CV 15.8 (H) 12.0 - 15.5 % [place] Comment: As part of CBC testing performe d at [facility], [address] [place] [address] Platelet count 120 (L) 140 - 440 K/uL [place] Comment: As part of CBC or as an individ ual orderable testing performed at [facility], [address] [place] [address] MPV 9.1 4.0 - 10.4 fL [place] Comment: As part of CBC testing performe d at [facility], [address] [place] [address] Specimen Anatomical Collection Method Collection Time Receive d Time (Source) Location / / Volume Laterality Blood 07/21/2022 10:27 07/21/2022 AM CDT 10:27 AM CDT Deonna Leiva MD LAB BLOOD ORDERABLES Performing Organization Address City/State/ZIP Code Phon e Number [address] (ABNORMAL) Glomerular Filtration Rate (07/21/2022 10:27 AM CDT)Only the most recent of10 resultswithin the time period is included. P athologist Signature eGFR 58 (L) >=60 [place] mL/min/1.73 sq. m Comment: The eGFRcr is [...] fulfill criteria for CKD. Testing performed at [facility], [address] [place] [address] Specimen Anatomical Collection Method Collection Time Receive d Time (Source) Location / / Volume Laterality Blood 07/21/2022 10:27 07/21/2022 AM CDT 10:27 AM CDT Deonna Leiva MD LAB BLOOD ORDERABLES Performing Organization Address City/State/ZIP Code Phon e Number [address] (ABNORMAL) Differential (07/21/2022 10:27 AM CDT)Only the most recent of10 resultswithin the time period is included. athologist Signature Neutrophil % 56.2 42.0 - 66.[address] [facility] % Comment: All components of the Different ial performed at [facility], [address] [place] [address] Lymphocyte % 33.6 24.0 - 44.0 % [place] Comment: As part of Differential, testin g performed at [facility], [address] [place] [address] Monocyte % 8.0 (H) 2.0 - 7.0 % [place] [facility] Comment: As part of Differential, testin g performed at [facility], [address] [place] [address] Eosinophil % 1.9 1.0 - 4.0 % [place] [facility] Comment: As part of Differential, testin g performed at [facility], [address] [place] [address] Basophil % 0.3 0.0 - 1.0 % [place] [facility] Comment: As part of Differential, testin g performed at [facility], [address] [place] [address] Neutrophil Abs 1.82 1.70 - 7.30 K/uL [place] Comment: As part of Differential, testin g performed at [facility], [address] [place] [address] Lymphocyte Abs 1.09 1.00 - 4.80 K/uL [place] Comment: As part of Differential, testin g performed at [facility], [address] [place] [address] Monocyte Abs 0.26 0.08 - 0.70 K/uL [place] Comment: As part of Differential, testin g performed at [facility], [address] [place] [address] Eosinophil Abs 0.06 0.04 - 0.40 K/uL [place] Comment: As part of Differential, testin g performed at [facility], [address] [place] [address] Basophil Abs 0.01 0.00 - 0.10 K/uL [place] Comment: As part of Differential, testin g performed at [facility], [address] [place] [address] Specimen Anatomical Collection Method Collection Time Receive d Time (Source) Location / / Volume Laterality Blood 07/21/2022 10:27 07/21/2022 AM CDT 10:27 AM CDT Deonna Leiva MD LAB BLOOD ORDERABLES Performing Organization Address City/State/ZIP Code Phon e Number [facility] TRACEY VUONG [address] BUN (07/21/2022 10:27 AM CDT)Only the most recent of10 resultswithin the time period is included. P athologist Signature BUN 19 6 - 23 mg/dL [place] Comment: Testing performed at [facility], [address] [place] [address] Specimen Anatomical Collection Method Collection Time Receive d Time (Source) Location / / Volume Laterality Blood 07/21/2022 10:27 07/21/2022 AM CDT 10:27 AM CDT Deonna Leiva MD LAB BLOOD ORDERABLES Performing Organization Address City/[facility]/ZIP Code Phon e Number [address] ALT (07/21/2022 10:27 AM CDT)Only the most recent of11 resultswithin the time period is included. P athologist Signature ALT 10 <=33 U/L [place] Comment: Testing performed at [facility], [address] [place] [address] Specimen Anatomical Collection Method Collection Time Receive d Time (Source) Location / / Volume Laterality Blood 07/21/2022 10:27 07/21/2022 AM CDT 10:27 AM CDT Deonna Leiva MD LAB BLOOD ORDERABLES Performing Organization Address [facility] Phon e Number [address] AST (07/21/2022 10:27 AM CDT)Only the most recent of11 resultswithin the time period is included. P athologist Signature AST 16 <=32 U/L [place] Comment: Testing performed at [facility], [address] [place], [place] [address] Specimen Anatomical Collection Method Collection Time Receive d Time (Source) Location / / Volume Laterality Blood 07/21/2022 10:27 07/21/2022 AM CDT 10:27 AM CDT Deonna Leiva MD LAB BLOOD ORDERABLES Performing Organization Address City/[facility] Phon e Number [address] Magnesium (07/21/2022 10:27 AM CDT)Only the most recent of9 resultswithin the time period is included. athologist Signature Magnesium 1.6 1.6 - 2.6 [place] mg/dL Comment: Testing performed at [facility], [address] [place] [address] Specimen Anatomical Collection Method Collection Time Receive d Time (Source) Location / / Volume Laterality Blood 07/21/2022 10:27 07/21/2022 AM CDT 10:27 AM CDT Deonna Leiva MD LAB BLOOD ORDERABLES Performing Organization Address City/[facility]/[place] [address] [place] [address] Glucose Level (07/21/2022 10:27 AM CDT)Only the most recent of10 resultswithin the time period is included. athologist Signature Glucose Level 95 70 - 99 [place] mg/dL Comment: Effective 04/19/16, the glucose reference intervals have been updated based on [place] [employer] guidelines (Standards of Medical Care in Diabetes 2016. Diabetes Care 2016; 39: S13-S22). Fasting blood glucose: Normal: 70-99 mg/dL Impaired fasting glucose (increased risk for diabetes or pre-diabetes): 100- 125 mg/dL Diabetes mellitus: >/=126 mg/dL Random blood glucose: Normal: 70-199 mg/dL Note: Random glucose >100 mg/dL is assoc iated with increased risk for diabetes Testing performed at [facility], [address] [place] [address] Specimen Anatomical Collection Method Collection Time Receive d Time (Source) Location / / Volume Laterality Blood 07/21/2022 10:27 07/21/2022 AM CDT 10:27 AM CDT Deonna Leiva MD LAB BLOOD ORDERABLES Performing Organization Address City/State/[place] [address] [place] [address] Calcium Level (07/21/2022 10:27 AM CDT)Only the most recent of10 resultswithin the time period is included. athologist Signature Calcium Lvl 9.7 8.4 - 10.[address] [facility] mg/dL Comment: Testing performed at [facility], [address] [place] [address] Specimen Anatomical Collection Method Collection Time Receive d Time (Source) Location / / Volume Laterality Blood 07/21/2022 10:27 07/21/2022 AM CDT 10:27 AM CDT Deonna Leiva MD LAB BLOOD ORDERABLES Performing Organization Address City/[facility]/ZIP Code Phon e Number [place] [id number] [place] [address] Bilirubin, total (07/21/2022 10:27 AM CDT)Only the most recent of9 resultswithin the time period is included. athologist Signature Bili Total 0.7 <=1.2 mg/dL [place] Comment: Indocyanine Green (ICG) may cause falsel y elevated bilirubin results. Total and direct bilirubin must not be measured from samples containing indocyanine green. False elevation of total bilirubin can b e seen in patients with IgG concentrations above 28 g/L. Testing performed at [facility], [address] [place], [place] [address] Specimen Anatomical Collection Method Collection Time Receive d Time (Source) Location / / Volume Laterality Blood 07/21/2022 10:27 07/21/2022 AM CDT 10:27 AM CDT Deonna Leiva MD LAB BLOOD ORDERABLES Performing Organization Address [facility]/ZIP Code Phon e Number [place] [phone] [address] [place] [address] Electrolyte Panel (07/21/2022 10:27 AM CDT)Only the most recent of10 results within the time period is included. athologist Signature Sodium Lvl 137 136 - 145 [place] mEq/L Comment: Testing performed at [facility], [address] [place] [address] Potassium Lvl 4.5 3.5 - 5.1 mEq/L [place] Comment: Testing performed at [facility], [address] [place] [address] Chloride 101 98 - 107 mEq/L [place] Comment: Testing performed at [facility], [address] [place] [address] CO2 27 22 - 29 mEq/L [place] Comment: Testing performed at [facility], [address] [place] [address] Anion Gap 9 4 - 14 mEq/L [place] Comment: Testing performed at [facility], [address] [place] [address] Specimen Anatomical Collection Method Collection Time Receive d Time (Source) Location / / Volume Laterality Blood 07/21/2022 10:27 07/21/2022 AM CDT 10:27 AM CDT Deonna Leiva MD LAB BLOOD ORDERABLES Performing Organization Address [facility] [place] [address] [facility] EKG, 12-Lead (Scheduled) (07/21/2022)Only the most recent of5 resultswithin the time period is included. Specimen (Source) Anatomical Location Collection Method / Collectio n Time Received Time / Laterality Volume Narrative This result has an attachment that is no t available. Deonna Leiva MD ECG ORDERABLES Performing Organization Address [facility] Phon e Number [facility] Fluoroscopy (06/19/2022 9:08 AM CDT)Only [...] (04/20/2022 1:27 PM CDT)Only the most recent of2 resultswithin the [...] small ascites in the pelvis. Gabi PÉREZ [facility] CT ORDERABLES (ABNORMAL) POC Creatinine (04/20/2022 12:39 PM CDT)Only the most recent of2 resultswithin the [...] Dev Yes POC TELCOR Performing Lab [facility] [place] POC TELCOR Comment: Diagnostic Imaging [facility], [address] [facility] , [place] [address]; Point of Care Fluoroscope Operator: Eli Beard MD Specimen Anatomical Collection Method Collection Time Receive d Time (Source) Location / / Volume Laterality Blood 04/20/2022 12:39 04/20/2022 PM CDT 12:39 PM CDT Gabi PÉREZ POCT ORDERABLES - DEVICE Performing Organization Address City/[facility]/ZIP Code Phon e Number POC TELCOR Unless otherwise noted, [place] [address] lab tests performed by: Division of Pathology and Laboratory Medicine [facility] POC TELCOR Fractionated Bilirubin (12/30/2021 9:38 AM CDT)Only the most recent of2 results within the time period is included. athologist Signature Bili Total 0.8 <=1.2 mg/dL [facility] Comment: Indocyanine Green (ICG) may cause falsel y elevated bilirubin results. Total and direct bilirubin must not be measured from samples containing indocyanine green. False elevation of total bilirubin can b e seen in patients with IgG concentrations above 28 g/L. Testing performed at [facility], [address] [place] [address] Bili Direct 0.2 <=0.3 mg/dL [facility] Comment: Indocyanine Green (ICG) may cause falsel y elevated bilirubin results. Total and direct bilirubin must not be measured from samples containing indocyanine green. Testing performed at [facility], [address] [facility] [place] [address] Bili Indirect 0.6 0.0 - 0.9 mg/dL [facility] Comment: Testing performed at [facility], [address] [place] [address] Specimen Anatomical Collection Method Collection Time Receive d Time (Source) Location / / Volume Laterality Blood 12/30/2021 9:38 AM 2 CDT 11:26 AM CDT Christian PÉREZ LAB BLOOD ORDERABLES Performing Organization Address City/State/[place] [address] [place] [address] Total Protein (12/30/2021 9:38 AM CDT)Only the most recent of2 resultswithin the time period is included. athologist Signature Total Protein 7.6 6.4 - 8.3 [facility] g/dL [facility] Comment: Testing performed at [facility], [address] [facility], [place] [address] Specimen Anatomical Collection Method Collection Time Receive d Time (Source) Location / / Volume Laterality Blood 12/30/2021 9:38 AM 2 CDT 11:26 AM CDT Christian PÉREZ LAB BLOOD ORDERABLES Performing Organization Address [facility]/ZIP [facility] [place] [address] [place] [address] Alkaline Phosphatase (12/30/2021 9:38 AM CDT)Only the most recent of2 results within the time period is included. athologist [facility] Alk Phos 86 35 - 104 [facility] U/L [facility] Comment: Testing performed at [facility], [address] [facility], [place] [address] Specimen Anatomical Collection Method Collection Time Receive d Time (Source) Location / / Volume Laterality Blood 12/30/2021 9:38 AM 2 CDT 11:26 AM CDT Christian PÉREZ LAB BLOOD ORDERABLES Performing Organization Address [facility] [place] [address] [place] [address] Albumin Level (12/30/2021 9:38 AM CDT)Only the most recent of2 resultswithin the time period is included. athologist [facility] Albumin Lvl 4.5 3.5 - 5.2 [facility] gm/dL [facility] Comment: Testing performed at [facility], [address] [facility], [place] [address] Specimen Anatomical Collection Method Collection Time Receive d Time (Source) Location / / Volume Laterality Blood 12/30/2021 9:38 AM 2 CDT 11:26 AM CDT Christian PÉREZ LAB BLOOD ORDERABLES Performing Organization Address City/[facility]/ZIP [facility] [place] [address] [place] [address] US Abdomen Limited (12/30/2021 9:00 [...] and Left Heart Cath (11/28/2021 10:10 AM SHOT PEEN OPERATOR) Specimen (Source) Anatomical Location Collection Method / Collectio n Time Received Time / Laterality Volume Narrative This result has an attachment that is no t available. Angel Nash MD CV CARDIAC CATH ORDERABLES (ABNORMAL) POC Oximetry Venous (11/28/2021 9:44 AM SHOT PEEN OPERATOR) [facility] Method Time Signature POC O2 65.0 [...] Site R atrium POC TELCOR Performing Lab [facility] POC TELCO R Comment: [facility], [address] [place] [address] [place] [address]; Lab Direct or: Arlene Navarro MD Specimen Anatomical Collection Method Collection Time Receive d Time (Source) Location / / Volume Laterality Blood 11/28/2021 9:44 AM 03/07/202 2 9:44 SHOT PEEN OPERATOR AM SHOT PEEN OPERATOR Angel [place] MD POINT OF CARE TEST ORDERABLE S Performing Organization Address City/[facility]/ZIP Code Phon e Number POC TELCOR Unless otherwise noted, [place] [address] lab tests performed by: Division of Pathology and Laboratory Medicine [address] [place] [address] POC TELCOR (ABNORMAL) POC Oximetry Arterial (11/28/2021 9:35 AM SHOT PEEN OPERATOR) [facility] Method Time Signature POC O2 Saturation, [...] Draw Site Aorta POC TELCOR Performing Lab [facility] POC TELCO R Comment: [facility], [address] [place] [address]; Lab Direct or: Arlene Navarro MD Specimen Anatomical Collection Method Collection Time Receive d Time (Source) Location / / Volume Laterality Blood 11/28/2021 9:35 AM 9:35 SHOT PEEN OPERATOR AM SHOT PEEN OPERATOR Angel Nash MD POINT OF CARE TEST ORDERABLE S Performing Organization Address City/[facility] Phon e Number POC TELCOR Unless otherwise noted, [place] [address] lab tests performed by: Division of Pathology and Laboratory Medicine [address] [place] [address] POC TELCOR (ABNORMAL) POC Glucose Screen (11/28/2021 8:47 AM SHOT PEEN OPERATOR) athologist Signature POC Glucose 102 (H) 70 [...] Sample Type Capillary POC TELCOR Performing Lab [facility] POC TELCO R Comment: [facility], [address] [place] [address]; Lab Direct or: Arlene Navarro MD Specimen Anatomical Collection Method Collection Time Receive d Time (Source) Location / / Volume Laterality Blood 11/28/2021 8:47 AM 2 8:47 SHOT PEEN OPERATOR AM SHOT PEEN OPERATOR Angel Nash MD POCT ORDERABLES - DEVICE Performing Organization Address City/State/ZIP [facility] Phon e Number POC TELCOR Unless otherwise noted, [place] [address] lab tests performed by: Division of Pathology and Laboratory Medicine [address] [place] [address] POC TELCOR Clot Expiration Date (11/28/2021 7:41 AM SHOT PEEN OPERATOR)Only the most recent of2 results within the time period is included. [facility] Method Time Signature T & S 12/01/2021 [facility] Specimen Anatomical Collection Method Collection Time Receive d Time (Source) Location / / Volume Laterality Blood 11/28/2021 7:41 AM 2 8:29 SHOT PEEN OPERATOR AM SHOT PEEN OPERATOR Star Treviño MD BLOOD BANK TEST ORDERABLES Performing Organization Address City/[facility] Phon e Number [facility] Unless otherwise noted, [address] all lab tests performed by: Division of Pathology and Laboratory Medicine [address] [place] [address] TMP Interpretation Antibody Screen Negative (11/28/2021 7:41 AM SHOT PEEN OPERATOR)Only the most recent of2 resultswithin the time period is included. Patholo gist Method Time Signature TMP Auto Neg At the [place] MD ABSC [facility] patient plasma shows no evidence of RBC alloantibodi es. Comment: JESSI NEWMAN MD, PhD - [id number] Dictated by: JESSI NEWMAN MD, Ph D - [id number] Dictated Date/Time: 11.28.2021 11:46 AM SHOT PEEN OPERATOR Transcribed Date/Time: 11.28.2021 11:46 AM SHOT PEEN OPERATOR Electronically Signed By: JESSI NEWMAN MD, PhD - [id number] on 11.28.2021 11:46 AM Specimen Anatomical Collection Method Collection Time Receive d Time (Source) Location / / Volume Laterality Blood 11/28/2021 7:41 AM 2 8:29 SHOT PEEN OPERATOR AM SHOT PEEN OPERATOR Star Treviño MD BLOOD BANK TEST ORDERABLES Performing Organization Address City/State/ZIP [facility] Phon e Number [facility] Unless otherwise noted, [address] all lab tests performed by: Division of Pathology and Laboratory Medicine [address] [place] [address] ABORh (11/28/2021 7:41 AM SHOT PEEN OPERATOR)Only the most recent of2 resultswithin the time period is included. P athologist Signature ABORh. O POS [facility] Specimen Anatomical Collection Method Collection Time Receive d Time (Source) Location / / Volume Laterality Blood 11/28/2021 7:41 AM 2 8:29 SHOT PEEN OPERATOR AM SHOT PEEN OPERATOR Star Treviño MD BLOOD BANK TEST ORDERABLES Performing Organization Address City/State/[facility] Phon e Number [facility] Unless otherwise noted, [address] all lab tests performed by: Division of Pathology and Laboratory Medicine [address] [place] [address] Antibody Screen (11/28/2021 7:41 AM SHOT PEEN OPERATOR)Only the most recent of2 resultswithin the time period is included. P athologist Signature ABSC. Negative ABSC [facility] Specimen Anatomical Collection Method Collection Time Receive d Time (Source) Location / / Volume Laterality Blood 11/28/2021 7:41 AM 8:29 SHOT PEEN OPERATOR AM SHOT PEEN OPERATOR Star Treviño MD BLOOD BANK TEST ORDERABLES Performing Organization Address City/State/ZIP Code Phon e Number [facility] Unless otherwise noted, [place] [address] CENTER all lab tests performed by: Division of Pathology and Laboratory Medicine [address] [facility] Echocardiogram 2D Complete (11/21/2021 7:51 AM SHOT PEEN OPERATOR) Specimen (Source) Anatomical Collection Method Collection Time Re ceived Time Location / / Volume Laterality 11/21/2021 7:28 AM SHOT PEEN OPERATOR Narrative ISCV - 11/21/2021 10:27 AM SHOT PEEN OPERATOR Echocardiographic Report Interpretation Summary A complete [...] imaginD volumes [facility] Cardiac Mechanics/Speckle Tracking Imagi ng: Abnormal [...] Normal = 0 Abnormal global longitudinal peak s ystolic value Segments Size X - Cannot 2 - 1-2 small Interpret 1 - Normal Hypokinetic 3 - Amos netic 4 - Dyskinetic3-5 moderate 5 - Aneurysmal 6-14 large 15-16 diffuse 3D imaginD volumes [facility]. Cardiac Mechanics/Speckle Tracking Imagi ng: Abnormal [...] 4.3 cm LVOT diam: 2.0 cm EDV(MOD-A4C): 121. 9 ml ESV(MOD-A4C): 90.4 ml LVOT area: 3.2 cm2 EF(MOD-A4C): 25.8 % EDV(MOD-A2C): 134.8 ml ESV(MOD-A2C): 97.5 ml EDV(MOD-bp): 1 27.8 ml EF(MOD-A2C): 27.7 % ESV(MOD-bp): 98 .9 ml EF(MOD-bp): 22.6 % LAV(MOD-A2C): 61.8 ml [...] D): 1.1 JONY Index (V,D): 1.1 Dimensionless Index: 0.70 23 Angel Nash MD CV ECHO ORDERABLES Performing Organization Address City/State/[facility] Code Phon e Number ISC[facility] General Laboratory Add-On Test (11/18/2021 1:50 PM SHOT PEEN OPERATOR) P athologist Signature Ordered Test Added [facility] Test Needed TSH, Free [facility] Specimen Anatomical Collection Method Collection Time Receive d Time (Source) Location / / Volume Laterality Existing 11/18/2021 1:50 PM 2 1:51 SHOT PEEN OPERATOR PM SHOT PEEN OPERATOR Susan Baird MD LAB BLOOD ORDERABLES Performing Organization Address City/State/ZIP Code Phon e Number [facility] Unless otherwise noted, [address] all lab tests performed by: Division of Pathology and Laboratory Medicine [address] [place] COVID-19 (SARS-CoV-2) PCR-Asymptomatic (11/18/2021 12:07 PM SHOT PEEN OPERATOR) [facility] Method Time Signature COVID19 (SARS Not Detected Not Detected UT CoV-2) [facility] Comment: This test is a qualitative reverse-trans criptase polymerase chain reaction (RT- PCR) developed for the [employer] system and intended for qualitative detection of SARS CoV-2 RNA in nasopharyngeal a nd oropharyngeal swab specimens collecte d from any individuals, including those suspected o f COVID-19 by their healthcare provider, and those without symptoms or other reasons to suspect COVID-19. A fact sheet for patients provided by the harbor master ( [employer]) can be rev iewed at: https://www.fda.gov/media/428548/downloa d. A fact sheet for Health Care providers is provided by the harbor master ([employer]) and can be reviewed at: https://www.fda.gov/media/363966/download Results must be interpreted within the c [...] were verified by the Microbiology Laboratory at [facility], CLIA Accreditation #: [id number] and CAP Accreditation #: [id number]. COVID19 SARS Source SOFT MUD MOLDER Swab SC MD [facility] COVID19 SARS Indication Pre-OR Procedure [facility] Specimen (Source) Anatomical Collection Method Collection Time Re ceived Time Location / / Volume Laterality Nasopharyngeal Swab 11/18/2021 12:07 02/01/2022 PM SHOT PEEN OPERATOR 2:59 PM SHOT PEEN OPERATOR Deonna Leiva MD MICROBIOLOGY - GENERAL ORDER JAHAIRA Performing Organization Address City/State/ZIP Code Phon e Number [facility] Unless otherwise noted, [place], [place] [id number] [place] [address] all lab tests performed by: Division of Pathology and Laboratory Medicine [address] [place] (ABNORMAL) Urinalysis with Microscopic (11/18/2021 11:36 AM SHOT PEEN OPERATOR) P athologist Signature UA WBC 3 (H) 0 - 2 /HPF [facility] UA RBC <1 0 - 2 /HPF [facility] UA Mucous NOT SEEN Not [facility] Seen-Trace [facility] UA Bacteria NOT SEEN NOT SEEN [facility] UA Squam Epi OCC None-Occas [facility] ional /[facility] UA Trans Epi OCC (A) NOT SEEN [facility] Specimen Anatomical Collection Method Collection Time Receive d Time (Source) Location / / Volume Laterality Urine 11/18/2021 11:36 11/18/2021 AM SHOT PEEN OPERATOR 11:51 AM SHOT PEEN OPERATOR Narrative [facility] - 12:41 PM SHOT PEEN OPERATOR Some reporting parameters within the Urinalysis test have changed due to the implementation of new in strumentation in the [facility], allowi ng greater sensitivity of measurement. Urinalysis results reported by the [facility] using existing instrumentation, as well as Urinalysis t esting performed manually or by backup methodology at the [facility] will remain relatively unchanged. New reporting parameters and units will now be reported for all campuses. Deonna Leiva MD URINE ORDERABLES Performing Organization Address City/State/ZIP Code Phon e Number [facility] Unless otherwise noted, [address] all lab tests performed by: Division of Pathology and Laboratory Medicine [facility]5 Autumn Rawls (ABNORMAL) Urinalysis w/Microscopic if Indicated (11/18/2021 11:36 AM SHOT PEEN OPERATOR) [facility] gist Method Time Signature UA Color Yellow Straw-Yel [facility] UA Appear Clear Clear [facility] UA Glucose NEG NEG mg/dL [facility] UA Bili NEG NEG [facility] UA Ketones NEG NEG mg/dL [facility] UA Spec Grav 1.025 1.003 - [facility] 1.035 [place] UA Blood Small (A) NEG [facility] UA pH 5.0 5.0 - 9.0 [facility] UA Protein 30 (A) NEG mg/dL [facility] UA Urobilinogen NEG NEG [facility] UA Nitrite NEG NEG [facility] UA Leuk Est Trace (A) NEG [facility] Specimen Anatomical Collection Method Collection Time Receive d Time (Source) Location / / Volume Laterality Urine 11/18/2021 11:36 11/18/2021 AM SHOT PEEN OPERATOR 11:51 AM SHOT PEEN OPERATOR Deonna Leiva MD URINE ORDERABLES Performing Organization Address City/State/ZIP Code Phon e Number [facility] Unless otherwise noted, [address] all lab tests performed by: Division of Pathology and Laboratory Medicine [facility] Autumn Rawls (ABNORMAL) Urine Culture (11/18/2021 11:36 AM SHOT PEEN OPERATOR) Component Value Ref Test Analysis Performed At [facility] Range Method Time Signature Final Report 10 - 50,000 cfu/ml Enterococcus faecalis SC ... ALLIE <10,000 cfu/ml Normal site von present. CANCER (A) CENTER Path Review - The results have been review ed and electronically signed by Pathologist: [place] Urine CHRISTAL BOURNE MD #[id number] A NDERSON (A) [facility] Organism Enterococcus SC faecalis (A) [facility] Specimen Anatomical Collection Method Collection Time Receive d Time (Source) Location / / Volume Laterality Urine, Clean 11/18/2021 11:36 11/18/2021 Catch AM SHOT PEEN OPERATOR 12:41 PM SHOT PEEN OPERATOR Organism Antibiotic Method Susceptibility Enterococcus faecalis *ROSEMARY expressed in MINIMUM INHIBITORY ROSEMARY: MINT mcg/mL CONCENTRATION Enterococcus faecalis Ampicillin MINIMUM INHIBITORY <=2: Cage sceptible CONCENTRATION Enterococcus faecalis Vancomycin MINIMUM INHIBITORY 1: Susc eptible CONCENTRATION Enterococcus faecalis Nitrofurantoin MINIMUM INHIBITORY <=16: S usceptible [facility] Deonna Leiva MD MICROBIOLOGY - GENERAL ORDER JAHAIRA Performing Organization Address City/[facility]/ZIP Code Phon e Number [facility] Unless otherwise noted, [address] all lab tests performed by: Division of Pathology and Laboratory Medicine [address] [place] [address] aPTT (11/18/2021 11:23 AM SHOT PEEN OPERATOR) athologist Signature aPTT 35.9 24.7 - 36.8 [facility] Specimen Anatomical Collection Method Collection Time Receive d Time (Source) Location / / Volume Laterality Blood 11/18/2021 11:23 11/18/2021 AM SHOT PEEN OPERATOR 11:44 AM SHOT PEEN OPERATOR Narrative [facility] - 2 12:18 PM SHOT PEEN OPERATOR This lab cannot be scheduled at the [facility] locations due to collection/proccessing restrictions: [facility] and [facility]. Deonna Leiva MD LAB BLOOD ORDERABLES Performing Organization Address City/[facility] Phon e Number [facility] Unless otherwise noted, [address] all lab tests performed by: Division of Pathology and Laboratory Medicine [address] [place] [address] (ABNORMAL) Prothrombin Time with INR (11/18/2021 11:23 AM SHOT PEEN OPERATOR) P athologist Signature PT 14.2 (H) 11.5 - 13.[address] [facility] INR 1.17 (H) 0.90 - 1.10 [facility] Specimen Anatomical Collection Method Collection Time Receive d Time (Source) Location / / Volume Laterality Blood 11/18/2021 11:23 11/18/2021 AM SHOT PEEN OPERATOR 11:44 AM SHOT PEEN OPERATOR Narrative [facility] - 2 12:18 PM SHOT PEEN OPERATOR This lab cannot be scheduled at the [facility] locations due to collection/proccessing restrictions: [facility] and [facility]. Deonna Leiva MD LAB BLOOD ORDERABLES Performing Organization Address City/State/ZIP Code Phon e Number [facility] Unless otherwise noted, [address] all lab tests performed by: Division of Pathology and Laboratory Medicine [address] [place] [address] TSH (11/18/2021 11:23 AM SHOT PEEN OPERATOR) athologist Signature TSH 2.77 0.27 - 4.20 [facility] mcunit/mL [facility] Specimen Anatomical Collection Method Collection Time Receive d Time (Source) Location / / Volume Laterality Blood 11/18/2021 11:23 11/18/2021 2:29 AM SHOT PEEN OPERATOR PM SHOT PEEN OPERATOR Deonna Leiva MD LAB BLOOD ORDERABLES Performing Organization Address City/[facility]/ZIP Code Phon e Number [facility] Unless otherwise noted, [address] all lab tests performed by: Division of Pathology and Laboratory Medicine [address] [place] [address] Free T4 (11/18/2021 11:23 AM SHOT PEEN OPERATOR) athologist Signature T4 Free 1.57 0.93 - 1.70 [facility] ng/dL [facility] Specimen Anatomical Collection Method Collection Time Receive d Time (Source) Location / / Volume Laterality Blood 11/18/2021 11:23 11/18/2021 2:29 AM SHOT PEEN OPERATOR PM SHOT PEEN OPERATOR Deonna Leiva MD LAB BLOOD ORDERABLES Performing Organization Address City/[facility]/ZIP Code Phon e Number [facility] Unless otherwise noted, [address] all lab tests performed by: Division of Pathology and Laboratory Medicine [address] [place] [address] Hemoglobin A1c (11/18/2021 11:15 AM SHOT PEEN OPERATOR) athologist Signature A1C 5.6 4.3 - 5.6 % [facility] Comment: HbA1c values >=6.5% are diagnostic of di abetes mellitus. Diagnosis should be confirmed by repeat testing. Therapeutic Action suggested: >8.0% HbA1 c; Goal of therapy: <7.0% HbA1c Specimen Anatomical Collection Method Collection Time Receive d Time (Source) Location / / Volume Laterality Blood 11/18/2021 11:15 11/18/2021 AM SHOT PEEN OPERATOR 12:01 PM SHOT PEEN OPERATOR Deonna Leiva MD LAB BLOOD ORDERABLES Performing Organization Address City/State/ZIP Code Phon e Number [facility] [place] [facility] Unless otherwise noted, [address] all lab tests performed by: Division of Pathology and Laboratory Medicine [address] [place] [address] after 11/10/2021 Insurance Payer Benefit Plan / Subscriber ID Effective Dates Phone Addre ss Type Group [employer] MEDICARE AETNA MEDICARE [id number] 2019-Presen [address] [place] [address] Advance Directives Code Status Date Activated Date Inactivated Comments Full Code 11/28/2016 11:38 AM 11/29/2016 1:23 PM Care Teams Laboratory Chief Relationship Specialty Start Date End Date Deonna Leiva, PCP - General Gynecologic Medical 10/30/16 MD Oncology [address] [place] [id number] Denzel Pritchett PCP - External Obstetrics/Gynecology 10/30/16 "MD Eli Referring Mateo Chaevz PCP - External Primary Internal Medicine 11/08/16 MD Malena Care Provider [address] [place] [address] [phone] David Dobson Consulting Physician Cardiology 12/23/21 MD Jeremie [address] [place] [id number]
--- OUTSIDE RECORDS SUMMARY | 2022-11-10 20:39 | XMS REPORT | Continuity of Care Document ---
:1950 Author Organization [facility] t Address [address] [place] [address] Care Team Providers Name Role Phone Pcp, Patient Does Not Have A Primary Care Physician [phone] 00-0000 SYSTEM, PROVIDER NOT IN Attending Clinician Unavailable DANA THOMAS Attending Clinician Unavailable Dana Thomas MD Attending Clinician Nolberto Stevens MD Attending Clinician Rhonda Buenrostro Attending Clinician Chloe Pablo RN Attending Clinician Unavailable Gabi Fitzpatrick Attending Clinician NOLBERTO STEVENS Attending Clinician Unavailable Kathleen Emanuel RN Attending Clinician Vickie Graves RN Attending Clinician Unavailable Estee Bailon RN Attending Clinician Unavailable Pedro NICOLE, Dorinda L Attending Clinician Unavailable Pcp, Patient Does Not Have A Attending Clinician [id number] [phone] Only, Ang Db Test Attending Clinician Unavailable Delores Patel Attending Clinician DELORES WILKINS Attending Clinician Unavailable Doctor Unassigned, Destrehan Attending Clinician Unavailable Abram NICOLE, Fior Palomino Attending Clinician CHRISTIAN DRIVER Attending Clinician Unavailable Saad VUONG, Angel Attending Clinician Christian Bean Attending Clinician Unavailable Stevan NICOLE, Cherrie Burnett Attending Clinician Unavailable Mirna NICOLE, Carlos Damico Attending Clinician Unavailable Rudy PÉREZ, Neelam Attending Clinician Hudson VUONG, Star Attending Clinician Daniel HUNT, Brooke Robles Attending Clinician Unavailable Susan Baird MD Attending Clinician Yoselyn NICOLE, Rosalinda Robles Attending Clinician Los [place] Attending Clinician Dar Rosenberg MD Attending Clinician [phone] Yasmin VUONG, Fermin Osullivan Attending Clinician Jazzmine Xiao CRNA Attending Clinician Herberth Mera MD Attending Clinician Roxi Gaytan RN Attending Clinician Unavailable Genaro Dupont Attending Clinician LOS GONSALEZ Attending Clinician Unavailable Cindy Núñez MA Attending Clinician Unavailable Sabra Perez MA Attending Clinician Unavailable REGINE CUELLAR Attending Clinician Unavailable DANA THOMAS Admitting Clinician Unavailable REGINE CUELLAR Admitting Clinician Unavailable Payers Payer Name Policy Type Policy Number Effective Date Expiration Date Orly LOPEZ MEDICARE PPO [id number] 2019 00:00:00 Problems Condition Condition Condition Status [...] [place] st[place] stic 00 chemothera chemothera An [facility] Paroxysmal Paroxysmal Disease Active Last U nivers atrial atrial 3-22 Assessmen ity of fibrillati fibrillati 00:00: t & Plan: [place] on on [place] ureña of this Anderso note [...] 5 mg p.o. twice daily with a [id number] ASc score 4 (age, gender, CHF, HTN) Nonischemi Nonischemi Disease Active Last U nivers c c 3-22 Assessmen ity of congestive congestive 00:00: t & Plan: [place] cardiomyop cardiomyop 00 [place] VUONG athrubén athrubén ureña of this Anderso note n might [...] & Plan: [place] due to due to 00 Formattin calcified calcified g of this A nderso coronary coronary note n lesion lesion might be Cancer different Center from the original. Left heart catheteri zation done 2 showed normal coronary arteries with only luminal irregular ities. Continue pravastat in 20 mg p.o. daily. 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 Cancer BP Center [...] (!) 106.2 kg (234 lb 2.1 oz) [place] body weight: 52.4 kg (115 lb 7.7 [...] of this issue. Serous Serous Disease Active [facility] cystadenoc cystadenoc 2-15 it y of arcinoma, arcinoma, 00:00: Bhakti s NOS of NOS of 00 MD cecile Anders [facility] Preoperati Preoperati Disease Resolve 2022-01-01 2022-01-01 Univers ve ve d 3-22 00:00:00 18:44:24 ity of cardiovasc cardiovasc 00:00: Te neymar mathew 00 examinatio examinatio [facility] History of History of Disease Resolve 2021-10-28 2021-10-28 Univers malignant malignant d 4-18 00:00:00 15:19:48 ity of neoplasm neoplasm 00:00: [place] of of 00 MD cecile Anders [facility] Allergies, Adverse Reactions, Alerts Allergy Allergy Status Severity Reaction(s) Onset Inactive Treating Comm ents Source Name Type Date Date Clinician Codeine Propensi Active Nausea And 2018[facility] adverse [facility]: Medical reaction 00 Center s Morphine Propensi Active Nausea And [facility] adverse 00:00: Medical reaction 00 Center s Naloxone Propensi Active Nausea And [address] [facility] to [facility]omiting 8-10 [facility] adverse 00:00: Medical reaction 00 Center s Opium Propensi Active Nausea And [address] [facility] to Vomiting 8-10 [facility] adverse 00:00: Medical reaction 00 Center s Morphine Propensi Active GI 2017-0 Nausea Univer s ty to Intolerance 3-03 and ity o f adverse 00:00: vomiting [place] reaction 00 sometime. MD orly meza [facility] Naloxone Propensi Active GI 2017-0 Univer s ty to Intolerance 3-03 ity o f adverse 00:00: [place] reaction 00 MD orly meza [facility] Opium Propensi Active GI 2017-0 Univers ty to Intolerance 3-03 ity o f adverse 00:00: [place] reaction 00 MD orly meza [facility] MORPHINE DRUG Active Med Nausea 2017-0 MD [...] MD INGREDI 3-03 Anderso 00:00: n 00 Fruit Drug Active Itching 2017-0 Allergy Univers Punch Allergy 2-28 to most ity of Flavor 00:00: Fruits [place] 00 with MD seeds, Anderso strawberr n ies, Cancer etc..... Center FRUIT DRUG Active High Hives 2017-0 MD PUNCH INGREDI 2-28 Anderso FLAVOR 00:00: n 00 Codeine Propensi Active GI 2017-0 Nausea Univers ty to Intolerance 2-15 and ity o f adverse 00:00: vomiting [place] reaction 00 sometime. MD orly [facility] CODEINE DRUG Active Med Nausea 2017-0 MD [...] MD INGREDI 2-15 Anderso 00:00: n 00 NO KNOWN Drug Active Univers ALLERGIE Class ity of [facility] Family History Family Member Diagnosis Comments Start Date Stop Date Source Natural father Heart attack Universi ty [facility] MD Mendoza Estrada r [place] Natural mother Heart attack Universi ty [facility] MD Mendoza Estrada r [place] Natural mother Hypertension Universi ty [facility] MD Mendoza Estrada r [place] Social History Social Habit Start Date Stop Date Quantity Comments Source History of Cigarette Smoker Universi ty of tobacco use [facility] History SDOH [facility] Std [facility] Cent[facility] r Drinks History SDOH [facility] Alcohol Binge Medical Jessy [facility] History SDOH [facility] Frequency [facility] Exposure to 2022-10-10 2022-10-20 Not sure [facility]-CoV-2 00:00:00 11:13:00 [facility] p[facility] (event) [facility] Alcohol intake 2022-06-27 2022-06-27 Current drinker Unive rsity of 00:00:00 00:00:00 of alcohol Virginie phelps (finding) [facility] Center Tobacco use and 2018-05-03 2018-05-[address] [facility] kes exposure 00:00:00 00:00:00 [facility] Center Tobacco Comment 2016-11-08 2016-11-08 quit 30yrs ago Unive rsity of 00:00:00 00:00:00 Virginie phelps [facility] Alcohol Comment 2016-11-08 2016-11-08 social drinker Unive rsity of 00:00:00 00:00:00 Virginie phelps [facility] Sex Ass[birth year] At [birth year] Universit y of 00:00:00 00:00:00 Virginie phelps [facility] Smoking Status Start Date Stop Date Source Tobacco smoking University [facility] xa consumption unknown Medical Bran ch Never smoker [facility] Ex-smoker 2016-11-21 00:00:00 2016-11-21 University o f Virginie VUONG 00:00:00 [facility] Medications Ordered Filled Start Stop Current Ordering Indication Dosage Frequency Signature Comments Components Source Medication Medication Date Date Medication? Clinician (SIG) Name Name letrozole 2021-09- No Metastatic 2.5mg Take 1 Univers (Femara) 10-20 cancer to tablet ity of 2.5 mg 00:00: 00:00 the (2.5 mg) Virginie tablet 00 :00 peritoneum by mouth daily for Anderso 90 days. n Cancer Center letrozole 2021-09- No Metastatic 2.5mg Take 1 Univers (Femara) 10-20 cancer to tablet ity of 2.5 mg 00:00: 05:59 the (2.5 mg) [place] tablet 00 :00 peritoneum by mouth MD daily for Anderso 90 days. Cancer Center pregabalin Yes Chronic 50mg Take 1 Un ashli (Lyrica) 50 8-22 pain capsule ity o f mg capsule 00:00: (50 mg) by [place] 00 mouth MD twice [place] daily. Cancer [place] pregabalin Yes Chronic 50mg Take 1 Un ashli (Lyrica) 50 8-22 pain capsule ity o f mg capsule 00:00: (50 mg) by [place] 00 mouth MD twice [place] daily. Cancer [place] metoprolol Yes Coronary TAKE ONE Univers tartrate 6-20 artery TABLET BY ity of (LOPRESSOR) 00:00: disease due MOUTH [place] 25 mg 00 to TWICE A MD tablet calcified DAY Anderso coronary n [facility] Cancer [place] metoprolol Yes Coronary TAKE ONE Univers tartrate 6-20 artery TABLET BY ity of (LOPRESSOR) 00:00: disease due MOUTH [place] 25 mg 00 to TWICE A MD tablet calcified DAY [facility] diclofenac Yes Chronic 2g Apply 2 g Univers sodium 5-19 pain topically ity of (Voltaren) 00:00: 3 (three) [place] 1 % gel 00 times a MD day. [facility] diclofenac Yes Chronic 2g Apply 2 g Univers sodium 5-19 pain topically ity of (Voltaren) 00:00: 3 (three) [place] 1 % gel 00 times a MD day. [facility] ondansetron 2021- No Metastatic Take 1 Univers (Zofran) 8 -07-21 cancer to tablet by ity of mg tablet 00:00: 00:00 the mouth [place] 00 :00 peritoneum every 8 MD hours for Anderso 3 days on n days 2, 3, Cancer and 4 Center following chemothera py, then may take 1 tablet by mouth every 8 hours as needed for nausea or vomiting. prochlorper 2021- No Metastatic 10mg Take 1 Univers azine -14 07-28 cancer to tablet (10 it y of (Compazine) 00:00: 00:00 the mg) by [place] as 10 mg 00 :00 peritoneum mouth MD tablet every 6 Anderso (six) n hours as Cancer needed for Center nausea or vomiting. ondansetron 2021-2021- No Metastatic Take 1 Univers (Zofran) 8 -07-21 cancer to tablet by ity of mg tablet 00:00: 00:00 the mouth [place] 00 :00 peritoneum every 8 MD hours for Anderso 3 days on n days 2, 3, Cancer and 4 Center following chemothera py, then may take 1 tablet by mouth every 8 hours as needed for nausea or vomiting. prochlorper 2021-2021- No Metastatic 10mg Take 1 Univers azine 01-12 cancer to tablet (10 it y of (Compazine) 00:00: 00:00 the mg) by [place] as 10 mg 00 :00 peritoneum mouth MD tablet every 6 Anderso (six) n hours as Cancer needed for Center nausea or vomiting. ondansetron 2021-2021- No Neoplasm, Take 1 tab Univers (Zofran) 8 12-25 malignant every 8 ity of mg tablet 00:00: 00:00 of hours on [place] as 00 :00 endometrium days 2, 3, MD and 4 Anderso following n chemothera Cancer py, then Center may take 1 tab every 8 hours as needed for nausea or vomiting. prochlorper 2021-2021- No Neoplasm, 10mg Take 1 Univers azine 12-25- malignant tablet (10 it y of (Compazine) 00:00: 00:00 of mg) by [place] as 10 mg 00 :00 endometrium mouth MD tablet every 6 Anderso (six) n hours as Cancer needed for Center nausea or vomiting. ondansetron 2021-2021- No Neoplasm, Take 1 tab Univers (Zofran) 8 -11 25- malignant every 8 ity of mg tablet 00:00: 00:00 of hours on [place] as 00 :00 endometrium days 2, 3, MD and 4 Anderso following n chemothera Cancer py, then Center may take 1 tab every 8 hours as needed for nausea or vomiting. prochlorper 2021-2021- No Neoplasm, 10mg Take 1 Univers azine 12-25- malignant tablet (10 it y of (Compazine) 00:00: 00:00 of mg) by [place] as 10 mg 00 :00 endometrium mouth MD tablet every 6 Anderso (six) n hours as Cancer needed for Center nausea or vomiting. acetaminoph 2021- No 650mg Take 650 Univers en 12-23- mg by ity of (TYLENOL) 13:01: 00:00 mouth [place] 325 mg 04 :00 every 6 MD tablet (six) Anderso hours as n needed for Cancer mild pain. Center acetaminoph 2021- No 650mg Take 650 Univers en 12-23- mg by ity of (TYLENOL) 13:01: 00:00 mouth [place] 325 mg 04 :00 every 6 MD tablet (six) Anderso hours as n needed for Cancer mild pain. Center pregabalin 2021- No Chronic 25mg Take 1 U nivers (Lyrica) 25 12-23 pain capsule ity of mg capsule 00:00: 00:00 (25 mg) by [place] 00 :00 mouth MD twice Anderso daily. n Cancer Center pregabalin 2021- No Chronic 25mg Take 1 U nivers (Lyrica) 25 12-23 pain capsule ity of mg capsule 00:00: 00:00 (25 mg) by [place] 00 :00 mouth MD twice Anderso daily. n Cancer Center HYDROcodone 2021- No Chronic 1{tbl} Take 1 Univers -acetaminop 4- 04-10 pain tablet by it y of hen (NORCO) 00:00: 00:00 [place] 5 mg-325 mg 00 :00 every 8 MD per tablet (eight) [place] o hours as n needed for Cancer severe Center pain. HYDROcodone 2021- No Chronic 1{tbl} Take 1 Univers -acetaminop 4-01 04-10 pain tablet by it y of hen (NORCO) 00:00: 00:00 [place] 5 mg-325 mg 00 :00 every 8 MD per tablet (eight) [place] o hours as n needed for Cancer severe Center pain. traMADol 2021- No 50mg 50 mg Univers (ULTRAM) 50 3-20 01- every 6 ity of mg tablet 00:00: 00:00 (six) [place] 00 :00 hours as MD needed. Anderso n Cancer Center traMADol No 50mg 50 mg Univers (ULTRAM) 50 3-29 04- every 6 ity of mg tablet 00:00: 00:00 (six) [place] 00 :00 hours as MD needed. [facility] TURMERIC 2021- No 1{tbl} Take 1 Univ ers ORAL 3-16 03-16 tablet by ity of 13:57: 00:00 mouth [place] 12 :00 [facility]. [facility] 2021- No 1{tbl} Take 1 Univ ers ORAL 3-16 03-16 tablet by ity of 13:57: 00:00 mouth [place] 12 :00 daily. MD Gal[facility] Eliqulaura 5 Yes 5mg Take 1 Univer s mg tablet 3-14 tablet (5 ity o f 00:00: mg) by 00 mouth MD kelli [facility]. [facility] Entresto Yes 1{tbl} Take 1 Unive rs 24-26 mg 3-14 tablet by ity of tab per 00:00: mouth [place] tablet 00 twice MD daily. [facility] furosemide Yes 20mg Take 1 Unive rs (LASIX) 20 3-14 tablet by ity of mg tablet 00:00: mouth [place] 00 daily. MD [facility] spironolact Yes 50mg Take 1 Univ ers one 3-14 tablet by ity of (ALDACTONE) 00:00: mouth [place] 50 mg 00 [facility]. [facility] Yes 5mg Take 1 Univer s mg tablet 3-14 tablet (5 ity o f 00:00: mg) by 00 mouth MD kelli [facility]indo daily. [facility] Ent[facility] Yes 1{tbl} Take 1 Unive rs 24-26 mg 3-14 tablet by ity of tab per 00:00: mouth [place] tablet 00 twice MD daily. [facility] furosemide Yes 20mg Take 1 Unive rs (LASIX) 20 3-14 tablet by ity of mg tablet 00:00: mouth [place] 00 daily. MD Anderso [facility] spironolact Yes 50mg Take 1 Univ ers one 3-14 tablet by ity of (ALDACTONE) 00:00: mouth [place] 50 mg 00 daily. MD dick [facility] amLODIPine 2021- No 5mg Take 5 mg U nivers (NORVASC) 5 11-16 by mouth ity of mg tablet 10:20: 00:00 twice [place] 17 :00 daily. MD Mateo meza [facility] amLODIPine 2021- No 5mg Take 5 mg U nivers (NORVASC) 5 11-16 by mouth ity of mg tablet 10:20: 00:00 twice [place] 17 :00 daily. MD aMteo meza [facility] aspirin 81 2021- No 81mg Take 81 mg Univers mg EC 11-16 by mouth ity of tablet 10:19: 00:00 daily. [place] 29 :00 Reported MD fredrick Galindo 01/[facility]/2017 [facility] aspirin 81 2021- No 81mg Take 81 mg Univers mg EC 11-16 by mouth ity of tablet 10:19: 00:00 daily. [place] 29 :00 Reported MD fredrick Galindo 01/24/2017 [facility] DIGOXIN 2021- No 125mg Take 125 Univ ers ORAL - 02-23 mg by ity of 10:19: 00:00 mouth [place] 20 :00 daily. MD Mateo meza [facility] DIGOXIN 2021- No 125mg Take 125 Univ ers ORAL - 02-23 mg by ity of 10:19: 00:00 mouth [place] 20 :00 daily. MD Mateo meza [facility] metoprolol 2021- No Coronary 25mg Take 1 Univers tartrate 11-16 06-20 artery tablet (25 it y of (LOPRESSOR) 00:00: 00:00 disease due mg) by [place] 25 mg 00 :00 to mouth tablet calcified twice Anderso coronary daily. [facility] metoprolol 2021- No Coronary 25mg Take 1 Univers tartrate 11-16 06-20 artery tablet (25 it y of (LOPRESSOR) 00:00: 00:00 disease due mg) by [place] 25 mg 00 :00 to mouth MD tablet calcified twice [place] coronary daily. [email or web address] ondansetron 2020-09 Yes 4mg Take 1 Univ ers (ZOFRAN) 4 1-05 tablet by ity of mg tablet 00:00: mouth [place] 00 needed. MD Mateo meza [facility] ondansetron 2020-09 Yes 4mg Take 1 Univ ers (ZOFRAN) 4 1-05 tablet by ity of mg tablet 00:00: mouth [place] 00 needed. MD Mateo meza [facility] levothyroxi 2020-09 Yes 25ug Take 1 Univ ers ne 0-15 tablet by ity of (SYNTHROID, 00:00: mouth [place] LEVOTHROID) 00 daily. 25 mcg Mate[facility] tablet [facility] famotidine 2020-09 Yes 20mg Take 1 Unive rs (PEPCID) 20 0-15 tablet by ity of mg tablet 00:00: mouth [place] 00 daily. MD Mateo meza [facility] levothyroxi 2020-09 Yes 25ug Take 1 Univ ers ne 0-15 tablet by ity of (SYNTHROID, 00:00: mouth [place] LEVOTHROID) 00 daily. 25 mcg [place] tablet [facility] famotidine 2020-09 Yes 20mg Take 1 Unive rs (PEPCID) 20 0-15 tablet by ity of mg tablet 00:00: mouth [place] 00 daily. MD Mateo meza [facility] traMADol 2021- No 1{tbl} Take 1 Univ ers (ULTRAM) 50 6-21 03-16 tablet by it y of mg tablet 00:00: 00:00 mouth as [place] as 00 :00 needed. MD Mateo meza [facility] traMADol 2021- No 1{tbl} Take 1 Univ ers (ULTRAM) 50 6-21 03-16 tablet by it y of mg tablet 00:00: 00:00 mouth as [place] as 00 :00 needed. MD Mateo meza [facility] pravastatin Yes 20mg Take 1 Univ ers (PRAVACHOL) 6-13 tablet by ity of 20 mg 00:00: mouth [place] tablet 00 daily. MD Mateo meza [facility] pravastatin Yes 20mg Take 1 Univ ers (PRAVACHOL) 6-13 tablet by ity of 20 mg 00:00: mouth [place] tablet 00 daily. MD Mateo meza [facility] clopidogrel 2021- No 1{tbl} Take 1 U nivers (PLAVIX) 75 03-05-16 tablet by it y of mg tablet 00:00: 00:00 mouth [place] 00 :00 daily. MD Mateo meza [facility] spironolact 2021- No 1{tbl} Take 1 U nivers one 03-0516 tablet by ity of (ALDACTONE) 00:00: 00:00 [place] 25 mg 00 :00 [facility] clop[facility]rel [facility]- No 1{tbl} Take 1 U nivers (PLAVIX) 75 03-0516 tablet by it y of mg tablet 00:00: 00:00 mouth [place] 00 :00 daily. MD Mateo meza [facility] spironoalct 2021- No 1{tbl} Take 1 U nivers one 03-0516 tablet by ity of (ALDACTONE) 00:00: 00:00 [place] 25 mg 00 :00 daily. [facility] sulfamethox 2021- No 1{tbl} Take 1 U nivers azole-trime -11-16 tablet by it y of thoprim 00:00: 00:00 mouth [place] (BACTRIM 00 :00 daily. MD PATEL) 800 Anderso mg-160 mg n per tablet [facility] sulfamethox 2021- No 1{tbl} Take 1 U nivers azole-trime 12-26 tablet by it y of thoprim 00:00: 00:00 mouth [place] (BACTRIM 00 :00 daily. MD PATEL) 800 Anderso mg-160 mg n per tablet [facility] ergocalcife 2021- No [id number] 50,000 U nivers rol 12-23 Units ity of (DRISDOL) 00:00: 00:00 every 30 [place] as 50,000 00 :00 (thirty) MD units days. Mateo [facility] ergocalcife 2021- No [id number] 50,000 U nivers rol 12-23 02-23 Units ity of (DRISDOL) 00:00: 00:00 every 30 [place] as 50,000 00 :00 (thirty) MD units days. [facility] losartan 2019-09- No Univers (COZAAR) 50 10-21 03-16 ity of mg tablet 00:00: 00:00 [place] 00 :00 MD Mateo meza [facility] [place] losartan 2019-09- No Univers (COZAAR) 50 10-21-16 ity of mg tablet 00:00: 00:00 [place] 00 :00 MD Mateo meza [facility] [place] aspirin 81 2018-0 Yes 81mg QD Take [address] [facility] EC 8-15 by mouth [facility] tablet 10:18: daily. Medical 40 [place] atenolol 20180 Yes 100mg QD Take [address] (TENORMIN) 8-15 mg by [facility] 100 MG 10:18: mouth Medical tablet 40 daily. [place] chlorthalid Yes 25mg QD Take [address] one 8-15 by mouth [facility] (HYGROTON) 10:18: daily. Medic al 25 MG 40 Center tablet aspirin 81 0 Yes 81mg QD Take [address] MG EC 8-15 by mouth [facility] tablet 10:18: daily. Medical 40 [place] atenolol 20180 Yes 100mg QD Take [address] (TENORMIN) 8-15 mg by [facility] 100 MG 10:18: mouth Medical tablet 40 daily. [place] chlorthalid 2018 Yes 25mg QD Take [address] one 8-15 by mouth [facility] (HYGROTON) 10:18: daily. Medic al 25 MG 40 Center tablet Immunizations Ordered Filled Immunization Date Status Comments [facility] Immunization Name Name Pfizer SARS-CoV-2 2021-05-14 Completed Univer sity of Vaccination (Purple 00:00:00 [facility]) [facility] Center Pfizer SARS-CoV-2 2021-05-14 Completed Univer sity of Vaccination (Purple 00:00:00 [facility]) Cancer Padroni Pfizer SARS-CoV-2 2021-04-25 Completed Univer sity of Vaccination (Purple 00:00:00 [facility]) Cancer Center Pfizer SARS-CoV-2 2021-04-25 Completed Univer sity of Vaccination (Purple 00:00:00 [facility] Vital Signs Vital Name Observation Time Observation Value Comments Source Systolic blood 2022-10-20 17:23:00 108 mm[Hg] Univer sity of pressure [facility] Diastolic blood 2022-10-20 17:23:00 69 mm[Hg] Unive rsity of pressure [facility] Heart rate 2022-10-20 17:23:00 55 /min Universi ty of [facility] Body temperature 2022-10-20 17:23:00 36.39 Clarisse Univ ersity of [facility] Respiratory rate 2022-10-20 17:23:00 17 /min Univ ersity of [facility] Body weight 2022-10-20 17:23:00 98.4 kg Universi ty of [facility] BMI 2022-10-20 17:23:00 37.73 kg/m2 Universi ty of [facility] Body height 2022-10-19 14:43:00 161.5 cm Universi ty of [facility] Systolic blood 2022-08-14 15:09:34 131 mm[Hg] Univer sity of pressure [facility] Diastolic blood 2022-08-14 15:09:34 76 mm[Hg] Unive rsity of pressure [facility] Heart rate 2022-08-14 15:09:34 70 /min Universi ty of [facility] Body temperature 2022-08-14 15:09:34 36.39 Clarisse Univ ersity of [facility] Respiratory rate 2022-08-14 15:09:34 18 /min Univ ersity of [facility] Body weight 2022-08-14 15:09:34 100.7 kg Universi ty of [facility] BMI 2022-08-14 15:09:34 38.61 kg/m2 Universi ty of [facility] Oxygen saturation in 2022-03-17 14:50:26 96 /min University of Arterial blood by Virginie felder Pulse oximetry Cancer Center Procedures Procedure Date / Time Performing Clinician Source Performed PETCT SUBSEQUENT TREATMENT 2022-10-19 16:16:00 Rhonda Carty [facility] STRATEGY [facility] CANCER ANTIGEN 125 2022-10-19 14:09:00 Rhonda Carty [facility] CANCER ANTIGEN 125 2022-07-21 15:27:24 Dana Thomas [facility] COMPLETE BLOOD COUNT W/ 2022-07-21 15:27:24 Dana Thomas U [facility] DIFFERENTIAL [facility] BASIC METABOLIC PANEL, 2022-07-21 15:27:24 [facility] BILIRUBIN TOTAL 2022-07-21 15:27:24 Dana Thomas [facility] ALANINE AMINOTRANSFERASE 2022-07-21 15:27:24 Dana Thomas [facility] ASPARTATE AMINOTRANSFERASE 2022-07-21 15:27:24 Dana Thomas [facility] MAGNESIUM LEVEL 2022-07-21 15:27:24 Dana Thomas [facility] GLUCOSE LEVEL 2022-07-21 15:27:24 Dana Thomas [facility] BLOOD UREA NITROGEN 2022-07-21 15:27:24 Dana Thomas [facility] ELECTROLYTE PANEL 2022-07-21 15:27:24 [facility] [facility] SERUM CREATININE 2022-07-21 15:27:24 Dana Thomas [facility] .GLOMERULAR FILTRATION 2022-07-21 15:27:24 [facility] CALCIUM LEVEL TOTAL 2022-07-21 15:27:24 Dana Thomas [facility] Results CBC 2022-07-21 15:27:24 Dana Thomas [facility] MANUAL DIFFERENTIAL 2022-07-21 15:27:24 Dana Thomas [facility] EKG, 12-LEAD (SCHEDULED) 2022-07-21 00:00:00 Dana Thomas [facility] PETCT SUBSEQUENT TREATMENT 2022-07-20 15:24:27 Gabi Basurto [facility] STRATEGY [facility] CANCER ANTIGEN 125 2022-06-23 18:39:37 Dana Thomas [facility] COMPLETE BLOOD COUNT W/ 2022-06-23 18:39:37 Dana Thomas U [facility] DIFFERENTIAL [facility] BASIC METABOLIC PANEL, 2022-06-23 18:39:37 [facility] CALCIUM TOTAL [facility] BILIRUBIN TOTAL 2022-06-23 18:39:37 Dana Thomas [facility] ALANINE AMINOTRANSFERASE 2022-06-23 18:39:37 Dana Thomas [facility] ASPARTATE AMINOTRANSFERASE 2022-06-23 18:39:37 Dana Thomas [facility] MAGNESIUM LEVEL 2022-06-23 18:39:37 Dana Thomas [facility] GLUCOSE LEVEL 2022-06-23 18:39:37 Dana Thomas [facility] BLOOD UREA NITROGEN 2022-06-23 18:39:37 [facility] ELECTROLYTE PANEL 2022-06-23 18:39:37 Dana Thomas [facility] SERUM CREATININE 2022-06-23 18:39:37 Dana Thomas [facility] .GLOMERULAR FILTRATION 2022-06-23 18:39:37 [facility] CALCIUM LEVEL TOTAL 2022-06-23 18:39:37 [facility] Results CBC 2022-06-23 18:39:37 Dana Thomas [facility] MANUAL DIFFERENTIAL 2022-06-23 18:39:37 Dana Thomas [facility] PAIN MANAGEMENT 2022-06-19 14:08:16 Nolberto Stevens [facility] COMPLETE BLOOD COUNT W/ 2022-05-26 14:02:00 Rhonda Carty [facility] DIFFERENTIAL [facility] BASIC METABOLIC PANEL, 2022-05-26 14:02:00 Rhonda Carty [facility] CALCIUM TOTAL [facility] BILIRUBIN TOTAL 2022-05-26 14:02:[address] [facility] ALANINE AMINOTRANSFERASE 2022-05-26 14:02:00 [facility] ASPARTATE AMINOTRANSFERASE 2022-05-26 14:02:00 [facility] MAGNESIUM LEVEL 2022-05-26 14:02:00 Machelle Rhonda [facility] GLUCOSE LEVEL 2022-05-26 14:02:00 Rhonda Carty [facility] BLOOD UREA NITROGEN 2022-05-26 14:02:00 [facility] ELECTROLYTE PANEL 2022-05-26 14:02:00 Rhonda Carty [facility] SERUM CREATININE 2022-05-26 14:02:00 Rhonda Carty [facility] .GLOMERULAR FILTRATION 2022-05-26 14:02:00 Rhonda Carty [facility] RATE [facility] CALCIUM LEVEL TOTAL 2022-05-26 14:02:00 Rh[facility] Results CBC 2022-05-26 14:02:[address] [facility] MANUAL DIFFERENTIAL 2022-05-26 14:02:00 Rhonda Carty [facility] CANCER ANTIGEN 125 2022-05-26 14:02:00 Rhonda Carty [facility] EKG, 12-LEAD (SCHEDULED) 2022-05-26 00:00:00 Rhonda Carty [facility] CANCER ANTIGEN 125 2022-04-26 12:19:00 Dana Thomas [facility] COMPLETE BLOOD COUNT W/ 2022-04-26 12:19:00 [facility] DIFFERENTIAL [facility] BASIC METABOLIC PANEL, 2022-04-26 12:19:[address] [facility] CALCIUM TOTAL [facility] BILIRUBIN TOTAL 2022-04-26 12:19:00 Dana Thomas [facility] ALANINE AMINOTRANSFERASE 2022-04-26 12:19:00 Dana Thomas [facility] ASPARTATE AMINOTRANSFERASE 2022-04-26 12:19:00 Dana Thomas [facility] MAGNESIUM LEVEL 2022-04-26 12:19:00 Dana Thomas [facility] GLUCOSE LEVEL 2022-04-26 12:19:00 Dana Thomas [facility] BLOOD UREA NITROGEN 2022-04-26 12:19:00 [facility] ELECTROLYTE PANEL 2022-04-26 12:19:00 Dana Thomas [facility] SERUM CREATININE 2022-04-26 12:19:00 Dana Thomas [facility] .GLOMERULAR FILTRATION 2022-04-26 12:19:00 Dana Thomas [facility] [place] RATE [facility] CALCIUM LEVEL TOTAL 2022-04-26 12:19:00 Dana Thomas [facility] Results CBC 2022-04-26 12:19:00 Dana Thomas [facility] Center MANUAL DIFFERENTIAL 2022-04-26 12:19:00 Dana Thomas [facility] Center CT CHEST ABDOMEN PELVIS W 2022-04-20 18:27:43 Gab[facility] CONTR[facility] POC CREATININE 2022-04-20 17:39:00 Sherine [facility] o f [facility] Center ASSIGNMENT OF BENEFITS 2022-04-06 20:28:52 Doctor Unassigned, No [facility] SERUM CREATININE 2022-03-17 12:42:58 Christian Driver [facility] .GLOMERULAR FILTRATION 2022-03-17 12:42:58 Christian Driver [facility] RATE [facility] CALCIUM LEVEL TOTAL 2022-03-17 12:42:58 Christian Driver [facility] er Center Results CBC 2022-03-17 12:42:58 Christian Driver [facility] er Center MANUAL DIFFERENTIAL 2022-03-17 12:42:58 [facility] CANCER ANTIGEN 125 2022-03-17 12:42:58 Christian Driver [facility] COMPLETE BLOOD COUNT W/ 2022-03-17 12:42:58 Christian Driver [facility] DIFFERENTIAL [facility] BASIC METABOLIC PANEL, 2022-03-17 12:42:58 Christian Driver [facility] CALCIUM TOTAL [facility] BILIRUBIN TOTAL 2022-03-17 12:42:[address] o f [facility] Center ALANINE AMINOTRANSFERASE 2022-03-17 12:42:58 Christian Driver [facility] ASPARTATE AMINOTRANSFERASE 2022-03-17 12:42:58 Christian Driver U [facility] Center MAGNESIUM LEVEL 2022-03-17 12:42:[address] [facility] GLUCOSE LEVEL 2022-03-17 12:42:58 [facility] BLOOD UREA NITROGEN 2022-03-17 12:42:58 Christian Driver [facility] ELECTROLYTE PANEL 2022-03-17 12:42:58 Molina [facility] EKG, 12-LEAD (SCHEDULED) 2022-03-17 00:00:00 Dana Thomas [facility] CANCER ANTIGEN 125 2022-02-17 16:57:28 Dana Thomas [facility] COMPLETE BLOOD COUNT W/ 2022-02-17 16:57:28 Dana Thomas [facility] DIFFERENTIAL [facility] BASIC METABOLIC PANEL, 2022-02-17 16:57:28 [facility] CALCIUM TOTAL [facility] BILIRUBIN TOTAL 2022-02-17 16:57:28 Dana Thomas [facility] ALANINE AMINOTRANSFERASE 2022-02-17 16:57:28 Dana Thomas [facility] ASPARTATE AMINOTRANSFERASE 2022-02-17 16:57:28 Dana Thomas [facility] MAGNESIUM LEVEL 2022-02-17 16:57:28 Dana Thomas [facility] GLUCOSE LEVEL 2022-02-17 16:57:28 Dana Thomas [facility] BLOOD UREA NITROGEN 2022-02-17 16:57:28 Dana Thomas [facility] ELECTROLYTE PANEL 2022-02-17 16:57:28 Dana Thomas [facility] SERUM CREATININE 2022-02-17 16:57:28 Dana Thomas [facility] .GLOMERULAR FILTRATION 2022-02-17 16:57:28 [facility] CALCI[facility] LEV[facility] TOTAL 2022-02-17 16:57:28 Dana Thomas [facility] Results CBC 2022-02-17 16:57:28 Dana Thomas [facility] MANUAL DIFFERENTIAL 2022-02-17 16:57:28 Dana Thomas [facility] CANCER ANTIGEN 125 2022-02-10 15:36:00 Dana Thomas [facility] COMPLETE BLOOD COUNT W/ 2022-02-10 15:36:[address] Dana Thomas [address] [facility] DIFFERENTIAL [facility] BASIC METABOLIC PANEL, 2022-02-10 15:36:00 Dana Thomas [facility] CALCIUM TOTAL [facility] BILIRUBIN TOTAL 2022-02-10 15:36:00 Dana Thomas [facility] ALANINE AMINOTRANSFERASE 2022-02-10 15:36:00 Dana Thomas [facility] ASPARTATE AMINOTRANSFERASE 2022-02-10 15:36:00 Dana Thomas [facility] MAGNESIUM LEVEL 2022-02-10 15:36:00 Dana Thomas [facility] GLUCOSE LEVEL 2022-02-10 15:36:00 Dana Thomas [facility] BLOOD UREA NITROGEN 2022-02-10 15:36:00 Dana Thomas [facility] ELECTROLYTE PANEL 2022-02-10 15:36:00 Dana Thomas [facility] SERUM CREATININE 2022-02-10 15:36:00 Dana Thomas [facility] .GLOMERULAR FILTRATION 2022-02-10 15:36:00 Dana Thomas [facility] CALCIUM LEVEL TOTAL 2022-02-10 15:36:00 Dana Thomas [facility] Results CBC 2022-02-10 15:36:00 Dana Thomas [facility] MANUAL DIFFERENTIAL 2022-02-10 15:36:00 Dana Thomas [facility] CANCER ANTIGEN 125 2022-01-13 11:51:00 Dana Thomas [facility] COMPLETE BLOOD COUNT W/ 2022-01-13 11:51:[address] Dana Thomas [address] [facility] DIFFERENTIAL [facility] BASIC METABOLIC PANEL, 2022-01-13 11:51:00 [facility] CALCIUM TOTAL [facility] BILIRUBIN TOTAL 2022-01-13 11:51:00 Dana Thomas [facility] ALANINE AMINOTRANSFERASE 2022-01-13 11:51:00 Dana Thomas [facility] ASPARTATE AMINOTRANSFERASE 2022-01-13 11:51:00 Dana Thomas [facility] MAGNESIUM LEVEL 2022-01-13 11:51:00 Dana Thomas [facility] GLUCOSE LEVEL 2022-01-13 11:51:00 Dana Thomas [facility] BLOOD UREA NITROGEN 2022-01-13 11:51:00 [facility] ELECTROLYTE PANEL 2022-01-13 11:51:00 Dana Thomas [facility] SERUM CREATININE 2022-01-13 11:51:00 Dana Thomas [facility] .GLOMERULAR FILTRATION 2022-01-13 11:51:00 Dana Thomas [facility] [place] RATE [facility] CALCIUM LEVEL TOTAL 2022-01-13 11:51:00 Dana Thomas Unive [facility] Results CBC 2022-01-13 11:51:00 Dana Thomas [facility] MANUAL DIFFERENTIAL 2022-01-13 11:51:00 [facility] PAIN MANAGEMENT 2022-01-05 18:24:08 Nolberto Stevens [facility] FLUOROSCOPY [facility] CT CHEST ABDOMEN PELVIS W 2021-12-30 16:23:53 Christian Driver Un [facility] [place] CONTRAST [facility] HEPATIC FUNCTION PANEL 2021-12-30 14:38:00 Christian Driver [facility] ALBUMIN LEVEL 2021-12-30 14:38:[address] o f [facility] ALANINE AMINOTRANSFERASE 2021-12-30 14:38:00 Christian Driver [facility] ASPARTATE AMINOTRANSFERASE 2021-12-30 14:38:00 Christian Driver [facility] TOTAL PROTEIN 2021-12-30 14:38:[address] f [facility] FRACTIONATED BILIRUBIN 2021-12-30 14:38:00 Christian Driver [facility] ALKALINE PHOSPHATASE 2021-12-30 14:38:00 Christian Driver [facility] POC CREATININE 2021-12-30 14:37:[address] o f [facility] US ABDOMEN LIMITED 2021-12-30 14:00:00 Christian Driver [facility] CANCER ANTIGEN 125 2021-12-23 16:48:00 Christian Driver [facility] COMPLETE BLOOD COUNT W/ 2021-12-23 16:48:00 Christian Driver [facility] DIFFERENTIAL [facility] BASIC METABOLIC PANEL, 2021-12-23 16:48:00 Christian Driver [facility] CALCIUM TOTAL [facility] BILIRUBIN TOTAL 2021-12-23 16:48:[address] f [facility] ALANINE AMINOTRANSFERASE 2021-12-23 16:48:00 Christian Driver [facility] ASPARTATE AMINOTRANSFERASE 2021-12-23 16:48:00 Christian Driver [facility] MAGNESIUM LEVEL 2021-12-23 16:48:[address] o f [facility] GLUCOSE LEVEL 2021-12-23 16:48:[address] f [facility] BLOOD UREA NITROGEN 2021-12-23 16:48:00 Christian Driver [facility] ELECTROLYTE PANEL 2021-12-23 16:48:00 Christian Driver [facility] SERUM CREATININE 2021-12-23 16:48:00 Christian Driver [facility] .GLOMERULAR FILTRATION 2021-12-23 16:48:00 Christian Driver [facility] RATE [facility] CALCIUM LEVEL TOTAL 2021-12-23 16:48:00 Christian Driver [facility] Results CBC 2021-12-23 16:48:[address] o [facility] MANUAL DIFFERENTIAL 2021-12-23 16:48:00 Christian Driver [facility] EKG, 12-LEAD (SCHEDULED) 2021-12-14 00:00:00 Neelam Grant [facility] COMBINED RIGHT AND LEFT 2021-11-28 16:10:48 Angel Nash [facility] HEART [facility] Center POC OXIMETRY VENOUS 2021-11-28 15:44:00 [facility] POC OXIMETRY ARTERIAL 2021-11-28 15:35:00 Angel Nash [facility] sity [facility] POC GLUCOSE SCREEN 2021-11-28 14:47:[address] [facility] [place] [place] [facility] TYPE AND SCREEN 2021-11-28 13:41:[address] [facility] ABORH 2021-11-28 13:41:[address] [facility] ANTIBODY SCREEN 2021-11-28 13:41:[address] [facility] TMP INTERPRETATION 2021-11-28 13:41:00 Star Treviño [facility] ANTIBODY SCREEN NEGATIVE MD Ferraro [facility] CLOT EXPIRATION DATE 2021-11-28 13:41:00 Star Treviño [facility] ECHOCARDIOGRAM 2D COMPLETE 2021-11-21 13:51:[address] [facility] [place] GENERAL LABORATORY ADD ON 2021-11-18 19:50:00 Susan Baird [facility] TEST [facility] COVID-19 (SARS-COV-2) 2021-11-18 18:07:00 Dana Thomas [facility] PCR-ASYMPTOMATIC [facility] URINE CULTURE 2021-11-18 17:36:00 Dana Thomas [facility] URINALYSIS WITH 2021-11-18 17:36:00 Dana Thomas [facility] MICROSCOPIC IF INDICATED MD Ferraro [facility] URINALYSIS MICROSCOPIC 2021-11-18 17:36:00 Dana Thomas [facility] CANCER ANTIGEN 125 2021-11-18 17:23:00 Dana Thomas Univer sity [facility] COMPLETE BLOOD COUNT W/ 2021-11-18 17:23:00 Dana Thomas [facility] DIFFERENTIAL [facility] COMPREHENSIVE METABOLIC 2021-11-18 17:23:00 Dana Thomas [facility] PANEL [facility] PROTHROMBIN TIME 2021-11-18 17:23:00 Dana Thomas [facility] APTT 2021-11-18 17:23:00 Dana Thomas [facility] Results CBC 2021-11-18 17:23:00 Dana Thomas [facility] MANUAL DIFFERENTIAL 2021-11-18 17:23:00 [facility] GLUCOSE LEVEL 2021-11-18 17:23:00 Dana Thomas [facility] BLOOD UREA NITROGEN 2021-11-18 17:23:00 [facility] ELECTROLYTE PANEL 2021-11-18 17:23:00 Dana Thomas [facility] SERUM CREATININE 2021-11-18 17:23:00 Dana Thomas [facility] .GLOMERULAR FILTRATION 2021-11-18 17:23:00 [facility] CALCIUM LEVEL TOTAL 2021-11-18 17:23:00 [facility] ALBUMIN LEVEL 2021-11-18 17:23:00 Dana Thomas [facility] ALKALINE PHOSPHATASE 2021-11-18 17:23:00 Dana Thomas [facility] ALANINE AMINOTRANSFERASE 2021-11-18 17:23:00 Dana Thomas [facility] ASPARTATE AMINOTRANSFERASE 2021-11-18 17:23:00 Dana Thomas [facility] TOTAL PROTEIN 2021-11-18 17:23:00 Dana Thomas [facility] FRACTIONATED BILIRUBIN 2021-11-18 17:23:00 Dana Thomas [facility] THYROID STIMULATING 2021-11-18 17:23:00 [facility] HORMONE [facility] FREE THYROXINE 2021-11-18 17:23:00 Dana Thomas [facility] TYPE AND SCREEN 2021-11-18 17:15:00 Dana Thomas [facility] HEMOGLOBIN A1C 2021-11-18 17:15:00 Dana Thomas [facility] ABORH 2021-11-18 17:15:00 Dana Thomas [facility] ANTIBODY SCREEN 2021-11-18 17:15:00 Dana Thomas [facility] TMP INTERPRETATION 2021-11-18 17:15:00 Dana Thomas [facility] ANTIBODY SCREEN NEGATIVE MD Ferraro fredrick [facility] CLOT EXPIRATION DATE 2021-11-18 17:15:00 Dana Thomas [facility] EKG, 12-LEAD (SCHEDULED) 2021-11-16 00:00:00 Los Gonsalez [facility] US BREAST COMPLETE 2021-11-04 19:27:00 Christian Driver [facility] BILATERAL [facility] US CHEST 2021-11-04 19:27:00 Molina [facility] Center o f [facility] MAMMO DIGITAL DIAGNOSTIC 2021-11-04 18:27:05 Christian Driver [facility] BILATERAL W OSWALDO [facility] HP MD MICROSATELLITE 2021-10-27 01:03:00 Dana Thomas [facility] INSTABILITY (MSI) ANALYSIS MD Jazmin ackerman [facility] INTERPRETATION AND REPORT Center IR CT GUIDED BIOPSY PELVIC 2021-10-25 19:03:06 Dana Thomas [facility] NON-BONE [facility] CYTOLOGY IMAGE-GUIDED FNA 2021-10-25 18:08:00 Dana Thomas [facility] INTERPRETATION [facility] PATHOLOGY BIOPSY 2021-10-25 18:07:00 Dana Thomas [facility] INTERPRETATION [facility] EKG, 12-LEAD (PORTABLE) 2021-10-25 00:00:00 Genaro Mcclelland [facility] COMPLETE BLOOD COUNT W/ 2021-10-24 15:56:00 Los Gonsalez [facility] DIFFERENTIAL [facility] CARBON DIOXIDE LEVEL 2021-10-24 15:56:00 Ting Los [facility] CHLORIDE LEVEL 2021-10-24 15:56:00 Ting [facility] SODIUM LEVEL 2021-10-24 15:56:[address] [facility] POTASSIUM LEVEL 2021-10-24 15:56:[address] [facility] SERUM CREATININE 2021-10-24 15:56:00 Ting [facility] BLOOD UREA NITROGEN 2021-10-24 15:56:00 Ting [facility] PROTHROMBIN TIME 2021-10-24 15:56:00 Ting [facility] GLUCOSE, RANDOM 2021-10-24 15:56:[address] [facility] TYPE AND SCREEN 2021-10-24 15:56:[address] [facility] Results CBC 2021-10-24 15:56:00 Ting [facility] MANUAL DIFFERENTIAL 2021-10-24 15:56:00 Ting [facility] SERUM CREATININE 2021-10-24 15:56:00 Ting [facility] .GLOMERULAR FILTRATION 2021-10-24 15:56:00 Los [facility]ons[facility] RATE [facility] ABORH 2021-10-24 15:56:[address] [facility] ANTIBODY SCREEN 2021-10-24 15:56:[address] [facility] ANION GAP 2021-10-24 15:56:[address] [facility] TMP INTERPRETATION 2021-10-24 15:56:00 Gonsalez, [facility] ANTIBODY SCREEN NEGATIVE MD Ferr[facility] CLOT EXPIRATION DATE 2021-10-24 15:56:00 Los Gonsalez [facility] COVID-19 (SARS-COV-2) 2021-10-24 15:53:00 Fermin Hoffman [facility] PCR-ASYMPTOMATIC [facility] AP IHC MSI (MLH1, MSH2, 2021-10-16 22:50:59 Dana Thomas U [facility] MSH6, PMS2) MATERIAL [facility] AP IHC HER2/KIMMIE MATERIAL 2021-10-16 22:50:59 Dana Thomas [facility] REQUEST [facility] AP MSI BY PCR MATERIAL 2021-10-16 22:50:59 Dana Thomas [facility] REQUEST [facility] CT CHEST ABDOMEN PELVIS W 2021-10-13 14:37:33 Christian Driver [facility] CONTRAST [facility] POC CREATININE 2021-10-13 13:55:[address] f [facility] OSI BONE DENSITY STUDY 2021-10-07 22:29:00 Mateo Chavez [facility] OSI MAMMO BILATERAL 2021-10-07 22:29:00 Mateo Chavez [facility] PATHOLOGY BIOPSY 2021-09-30 19:11:00 Christian Driver [facility] INTERPRETATION [facility] CANCER ANTIGEN 125 2021-09-30 17:35:00 Christian Driver [facility] Plan of Care Planned Activity Planned Date Details Comments Source Future Scheduled 2022-11-10 COVID-19 Vaccination [facility] [place] Test 14:28:48 (3 - Mixed Product MD [facility] risk series) [code = Center COVID-19 Vaccination (3 - Mixed Product risk series)] Future Scheduled 2022-08-15 COVID-19 Vaccination [facility] [place] Test 09:29:04 (3 - Mixed Product MD [facility] Cancer risk series) [code = Center COVID-19 Vaccination (3 - Mixed Product risk series)] Encounters Start End Encounter Admission Attending Care Care Encounter Source Date/Time Date/Time Type Type Clinicians Facility Department ID 2022-08-15 Outpatient SYSTEM, DILLON CARRANZA [id number] 12:20:21 PROVIDER Mitchell bria meza 2022-07-05 Outpatient SYSTEM, DILLON CARRANZA [id number] 10:19:02 PROVIDER Mitchell bria meza 2022-03-22 Outpatient SYSTEM, DILLON CARRANZA [id number] 12:14:32 PROVIDER Mitchell o susana 2021-12-16 Outpatient SYSTEM, DILLON CARRANZA [id number] 13:07:24 PROVIDER Mitchell o susana 2021-11-07 Outpatient SYSTEM, DILLON CARRANZA [id number] 11:25:34 PROVIDER Mitchell o susana 2021-11-04 Inpatient THOMAS, DILLON GIMENEZ [id number] 16:17:09 DANA Strong Mitchell o susana 2021-10-19 [facility] STLM [id number] Common 14:40:33 [facility] 2022-10-20 2022-10-20 Outpatient THOMAS, DILLON CARRANZA [id number] 11:17:59 12:07:35 DANA Medrano o susana 2022-10-20 2022-10-20 Follow-Up Thomas, 1.2.840.1 [id number] [facility] 11:00:00 12:07:35 Dana Cali 98909.1.1 it y of 3.412.2.7 [place] .3.746728 .[address] [facility] 2022-10-20 2022-10-20 Travel 1.2.840.1 1.2.004.352 9213 [id number] Univers 00:00:00 00:00:00 37530.1.1 350.1.13.41 ity of 3.412.2.7 [place].3.698 [place] .3.[place]38[place] 084.[address] [facility] 2022-10-19 2022-10-19 [facility], 1.2.840.1 [id number] 1098 [id number] Univers 07:57:06 23:59:00 Encounter Dana D. 95713.1.1 ity of 3.412.2.7 [place] .3.430492 [facility]-10-19 2022-10-19 Outpatient KYLER THOMAS DILLON [facility] [id number] 07:57:06 23:59:00 DANA meza 2022-10-19 2022-10-19 Ancillary Cali, 1.2.840.1 [id number] [id number] Univers 08:30:00 11:00:00 Procedure Dana Cali 20209.1.1 ity of 3.412.2.7 [place] .3.945073 MD Sainz8 [facility] 2022-10-19 2022-10-19 Outpatient KYLER THOMAS [facility] [id number] 08:20:15 08:20:15 DANA meza 2022-10-19 2022-10-19 Travel 1.2.840.1 1.2.618.184 2193 [id number] Univers 00:00:00 00:00:00 11809.1.1 350.1.13.41 ity of 3.412.2.7 [place].3.698 [place] .3.171067 084.8 MD [facility] 2022-08-14 2022-08-14 Follow-Up Stevens, 1.2.840.1 [id number] 1096 [id number] Univers 09:00:00 09:30:00 Nolberto Negrete 39549.1.1 it y of 3.412.2.7 [place] .3.261025 MD [facility] 2022-08-14 2022-08-14 Follow-Up KYLER Stevens, 1.2.840.1 [id number] 1096 [id number] Univers 09:00:00 09:30:00 Nolberto Negrete 95779.1.1 it y of 3.412.2.7 [place] .3.028616 MD Barajas [facility] 2022-08-14 2022-08-14 Travel 1.2.840.1 1.2.484.867 8432 [id number] Univers 00:00:00 00:00:00 65258.1.1 350.1.13.41 ity of 3.412.2.7 [place]7.3.698 [place] .3.693233 084.[address] [facility] 2022-08-14 2022-08-14 Travel 1.2.840.1 1.2.327.807 1789 [id number] [facility] 00:00:00 00:00:00 36487.1.1 350.1.13.41 ity of 3.412.2.7 [place].7.3.698 [place] .3.823943 084.[address] [facility] 2022-07-21 2022-07-21 Office Dana Thomas 1.2.840.1 14603 4665 [id number] Univers 12:00:00 12:24:13 Visit Rhonda Carty 97157.1.1 ity of 3.412.2.7 [place] .3.586325 MD Sainz[address] [facility] 2022-07-21 2022-07-21 Office Dana Rodriguez 1.2.840.1 34167 4665 [id number] Univers 12:00:00 12:24:13 Visit Rhonda Carty 53592.1.1 ity of 3.412.2.7 [place] .3.911859 MD Barajas [facility] 2022-07-21 2022-07-21 Outpatient KYLER THOMAS MDA MDA [id number] 10:47:03 11:10:48 DANA meza 2022-07-21 2022-07-21 Outpatient KYLER THOMAS MDA MDA [id number] 10:12:51 10:21:44 DANA meza 2022-07-21 2022-07-21 Travel 1.2.840.1 1.2.258.554 8450 [id number] [facility] 00:00:00 00:00:00 61414.1.1 350.1.13.41 ity of 3.412.2.7 [place]7.3.698 [place] .3.625816 084.[address] [facility] 2022-07-21 2022-07-21 Travel 1.2.840.1 1.2.684.022 7264 [id number] Univers 00:00:00 00:00:00 93663.1.1 350.1.13.41 ity of 3.412.2.7 [place].7.3.698 [place] .3.427976 084.[address] [facility] 2022-07-20 2022-07-20 Ancillary 1.2.840.1 [id number] 1097 [id number] Univers 08:00:00 10:30:00 Procedure 15418.1.1 it y of 3.412.2.7 [place] .3.634342 MD Barajas [facility] 2022-07-20 2022-07-20 Ancillary EL 1.2.840.1 [id number] 1097 [id number] Univers 08:00:00 10:30:00 Procedure 84049.1.1 it y of 3.412.2.7 [place] .3.425140 MD Barajas [facility] 2022-07-20 2022-07-20 Travel 1.2.840.1 1.2.693.047 1183 [id number] Univers 00:00:00 00:00:00 36931.1.1 350.1.13.41 ity of 3.412.2.7 [place]7.3.698 [place] .3.097695 084.[address] [facility] 2022-07-20 2022-07-20 Travel 1.2.840.1 1.2.877.312 9125 [id number] Univers 00:00:00 00:00:00 62506.1.1 350.1.13.41 ity of 3.412.2.7 [place].7.3.698 [place] .3.638644 084.[address] [facility] 2022-06-23 2022-06-23 Dana Gonzalez 1.2.840.1 1020 84890 [id number] Univers 14:15:00 16:55:04 Chloe Pablo 79435.1.1 ity of 3.412.2.7 [place] .3.998166 MD Barajas [facility] 2022-06-23 2022-06-23 Infusion Dana Rodriguez 1.2.840.1 1020 44445 [id number] Univers 14:15:00 16:55:04 Chloe Pablo 56773.1.1 ity of 3.412.2.7 [place] .3.407055 MD Barajas [facility] 2022-06-23 2022-06-23 Office Dana Thomas 1.2.840.1 86183 4665 [id number] Univers 13:30:00 15:08:09 Visit Gabi Basurto 40009.1.1 ity of 3.412.2.7 [place] .3.075058 MD Barajas [facility] 2022-06-23 2022-06-23 Office Dana Rodriguez 1.2.840.1 43103 4665 [id number] Univers 13:30:00 15:08:09 Visit Gabi Basurto 53113.1.1 ity of 3.412.2.7 [place] .3.702342 MD Barajas [facility] 2022-06-23 2022-06-23 Outpatient KYLER THOMAS [facility] [id number] 13:09:31 13:38:18 DANA meza 2022-06-23 2022-06-23 Travel 1.2.840.1 1.2.422.805 4525 [id number] Univers 00:00:00 00:00:00 63033.1.1 350.1.13.41 ity of 3.412.2.7 [place]7.3.698 [place] .3.013860 084.[address] [facility] 2022-06-23 2022-06-23 Travel 1.2.840.1 1.2.863.995 4533 [id number] Univers 00:00:00 00:00:00 69950.1.1 350.1.13.41 ity of 3.412.2.7 [place]7.3.698 [place] .3.699018 084.[address] [facility] 2022-06-20 2022-06-20 Melonie Carty, 1.2.840.1 [id number] 7470 Univers 00:00:00 00:00:00 Only Rhonda 69016.1.1 ity of 3.412.2.7 [place] .3.151762 .[address] [facility] 2022-06-20 2022-06-20 Melonie Thomas, 1.2.840.1 [id number] 67225 31474 Univers 00:00:00 00:00:00 Only Dana Cali 05162.1.1 it y of 3.412.2.7 [place] .3.043433 MD Sainz8 [facility] 2022-06-20 2022-06-20 Melonie Carty, 1.2.840.1 [id number] 8545 Univers 00:00:00 00:00:00 Only Rhonda 51283.1.1 ity of 3.412.2.7 [place] .3.903337 MD Sainz8 [facility] 2022-06-20 2022-06-20 Melonie Thomas, 1.2.840.1 [id number] 52158 Univers 00:00:00 00:00:00 Only Dana Cali 66699.1.1 it y of 3.412.2.7 [place] .3.299901 MD Sainz8 [facility] 2022-06-19 2022-06-19 Procedure Jhonatan, 1.2.840.1 [id number] 1097 [id number] Univers 09:00:00 10:03:04 visit Nolberto Negrete 04051.1.1 it y of 3.412.2.7 [place] .3.631507 MD Sainz8 [facility] 2022-06-19 2022-06-19 Procedure EL Jhonatan, 1.2.840.1 [id number] 1097 [id number] Univers 09:00:00 10:03:04 visit Juan. 75174.1.1 it y of 3.412.2.7 [place] .3.958580 MD Barajas [facility] 2022-06-19 2022-06-19 Outpatient KYLER STEVENS [facility] [id number] 09:08:16 09:08:16 NOLBERTO Mitchell bria meza 2022-06-19 2022-06-19 Travel 1.2.840.1 1.2.236.606 5007 [id number] Univers 00:00:00 00:00:00 37031.1.1 350.1.13.41 ity of 3.412.2.7 [place].7.3.698 [place] .3.555178 084.[address] [facility] 2022-06-19 2022-06-19 Travel 1.2.840.1 1.2.899.741 7305 [id number] Univers 00:00:00 00:00:00 58997.1.1 350.1.13.41 ity of 3.412.2.7 [place].7.3.698 [place] .3.327138 084.[address] [facility] 2022-06-16 2022-06-16 Telephone Pomer, 1.2.840.1 [id number] 1097 [id number] Univers 00:00:00 00:00:00 Kathleen May 17558.1.1 it y of 3.412.2.7 [place] .3.295128 MD Barajas [facility] 2022-06-16 2022-06-16 Telephone Pomer, 1.2.840.1 [id number] 1097 [id number] Univers 00:00:00 00:00:00 Kathleen May 75657.1.1 it y of 3.412.2.7 [place] .3.297595 MD Barajas [facility] 2022-05-31 2022-05-31 Telephone Pomer, 1.2.840.1 [id number] 1096 [id number] Univers 00:00:00 00:00:00 Kathleen May 21730.1.1 it y of 3.412.2.7 [place] .3.824702 MD Barajas [facility] 2022-05-31 2022-05-31 Telephone Jenae, 1.2.840.1 [id number] 1096 [id number] Univers 00:00:00 00:00:00 Kathleen Castaneda 70753.1.1 it y of 3.412.2.7 [place] .3.518567 MD Sainz8 [facility] 2022-05-26 2022-05-26 Infusion Dana Thomas 1.2.840.1 1020 33670 [id number] Univers 12:30:00 14:58:20 Vickie Graves 14202.1.1 ity of 3.412.2.7 [place] .3.342876 .[address] [facility] 2022-05-26 2022-05-26 Infusion Dana Rodriguez 1.2.840.1 1020 30371 [id number] Univers 12:30:00 14:58:20 Vickie Graves 85068.1.1 ity of 3.412.2.7 [place] .3.504002 MD Sainz8 [facility] 2022-05-26 2022-05-26 Office Cali, 1.2.840.1 [id number] 58095 15881 Univers 11:00:00 11:37:32 Visit Dana Cali 22442.1.1 it y of 3.412.2.7 [place] .3.151582 .[address] [facility] 2022-05-26 2022-05-26 Office KYLER Thomas, 1.2.840.1 [id number] 94061 [id number] Univers 11:00:00 11:37:32 Visit Dana Cali 17244.1.1 it y of 3.412.2.7 [place] .3.537384 MD Sainz8 [facility] 2022-05-26 2022-05-26 Outpatient KYLER THOMAS MDA MDA [id number] 09:18:40 09:51:40 DANA meza 2022-05-26 2022-05-26 Outpatient KYLER THOMAS MDA MDA [id number] 09:02:11 09:16:35 DANA meza 2022-05-26 2022-05-26 Melonie Carty, 1.2.840.1 [id number] 9446 Univers 00:00:00 00:00:00 Only Rhonda 29651.1.1 ity of 3.412.2.7 [place] .3.299206 MD Sainz8 [facility] 2022-05-26 2022-05-26 Melonie Thomas, 1.2.840.1 [id number] 47868 35484 Univers 00:00:00 00:00:00 Only Dana Cali 40896.1.1 it y of 3.412.2.7 [place] .3.247843 MD Sainz8 [facility] 2022-05-26 2022-05-26 Travel 1.2.840.1 1.2.805.519 0390 [id number] Univers 00:00:00 00:00:00 23803.1.1 350.1.13.41 ity of 3.412.2.7 [place].7.3.698 [place] .3.486290 084.[address] [facility] 2022-05-26 2022-05-26 Melonie Carty, 1.2.840.1 [id number] 6289 Univers 00:00:00 00:00:00 Only Rhonda 15564.1.1 ity of 3.412.2.7 [place] .3.865636 MD Barajas [facility] 2022-05-26 2022-05-26 Melonie Carty 1.2.840.1 [id number] 8400 Univers 00:00:00 00:00:00 Only Rhonda 11994.1.1 ity of 3.412.2.7 [place] .3.401640 MD Barajas [facility] 2022-05-26 2022-05-26 Melonie Thomas 1.2.840.1 [id number] 95137 80988 Univers 00:00:00 00:00:00 Only Dana Cali 80525.1.1 it y of 3.412.2.7 [place] .3.410584 MD Barajas [facility] 2022-05-26 2022-05-26 Travel 1.2.840.1 1.2.885.352 1462 611087 Univers 00:00:00 00:00:00 60911.1.1 350.1.13.41 ity of 3.412.2.7 2.[place].7.3.698 [place] .3.931499 084.[address] [facility] 2022-05-26 2022-05-26 Melonie Carty, 1.2.840.1 [id number] 6920 Univers 00:00:00 00:00:00 Only Rhonda 79153.1.1 ity of 3.412.2.7 [place] .3.859698 MD Sainz8 [facility] 2022-05-25 2022-05-25 Melonie Thomas, 1.2.840.1 [id number] 07535 14473 Univers 00:00:00 00:00:00 Only Dana Cali 05782.1.1 it y of 3.412.2.7 [place] .3.040090 MD Sainz8 [facility] 2022-05-25 2022-05-25 Melonie Thomas, 1.2.840.1 [id number] 40415 26727 Univers 00:00:00 00:00:00 Only Dana Cali 99160.1.1 it y of 3.412.2.7 [place] .3.963398 MD Barajas [facility] 2022-05-15 2022-05-15 Office Jhonatan, 1.2.840.1 [id number] 6312 Univers 09:30:00 12:10:36 Visit Nolberto Negrete 21278.1.1 it y of 3.412.2.7 [place] .3.529433 MD Barajas [facility] 2022-05-15 2022-05-15 Office KYLER Stevens, 1.2.840.1 [id number] 9768 Univers 09:30:00 12:10:36 Visit Nolberto Negrete 78710.1.1 it y of 3.412.2.7 [place] .3.520884 MD Barajas [facility] 2022-05-15 2022-05-15 Travel 1.2.840.1 1.2.508.841 4449 [id number] Univers 00:00:00 00:00:00 62697.1.1 350.1.13.41 ity of 3.412.2.7 2.2.7.3.698 [place] .3.086575 084.[address] [facility] 2022-05-15 2022-05-15 Travel 1.2.840.1 1.2.510.370 1381 [id number] Univers 00:00:00 00:00:00 65683.1.1 350.1.13.41 ity of 3.412.2.7 2.[place].7.3.698 [place] .3.195891 084.[address] [facility] 2022-04-26 2022-04-26 Infusion Dana Thomas 1.2.840.1 1020 79955 [id number] Univers 10:00:00 14:16:37 Estee Bailon 29124.1.1 ity of 3.412.2.7 [place] .3.197332 MD Barajas [facility] 2022-04-26 2022-04-26 Infusion Dana Rodriguez 1.2.840.1 1020 61019 [id number] Univers 10:00:00 14:16:37 Estee Bailon 97552.1.1 ity of 3.412.2.7 [place] .3Emeli640435 MD Barajas [facility] 2022-04-26 2022-04-26 Office Cali 1.2.840.1 [id number] 88340 [id number] Univers 08:30:00 09:06:53 Visit Dana Cali 73483.1.1 it y of 3.412.2.7 [place] .3Emeli105868 MD Barajas [facility] 2022-04-26 2022-04-26 Office KYLER Thomas 1.2.840.1 [id number] 84862 17790 Univers 08:30:00 09:06:53 Visit Dana Cali 35565.1.1 it y of 3.412.2.7 [place] .3.624904 MD Barajas [facility] 2022-04-26 2022-04-26 Outpatient KYLER THOMAS [facility] [id number] 07:19:11 07:45:00 DANA Mitchell susana 2022-04-26 2022-04-26 Melonie Thomas, 1.2.840.1 [id number] 34252 [id number] Univers 00:00:00 00:00:00 Only Dana Cali 93387.1.1 it y of 3.412.2.7 [place] .3.470717 MD Barajas [facility] 2022-04-26 2022-04-26 Travel 1.2.840.1 1.2.881.805 1563 812936 Univers 00:00:00 00:00:00 47026.1.1 350.1.13.41 ity of 3.412.2.7 2.2.7.3.698 [place] .3.105075 084.[address] [facility] 2022-04-26 2022-04-26 Melonie Thomas, 1.2.840.1 [id number] 46218 30129 Univers 00:00:00 00:00:00 Only Dana Cali 71294.1.1 it y of 3.412.2.7 [place] .3.212150 MD Barajas [facility] 2022-04-26 2022-04-26 Travel 1.2.840.1 1.2.621.754 6262 353223 Univers 00:00:00 00:00:00 51180.1.1 350.1.13.41 ity of 3.412.2.7 2.2.7.3.698 [place] .3.770988 084.[address] [facility] 2022-04-25 2022-04-25 Melonie Thomas, 1.2.840.1 [id number] 40870 49686 Univers 00:00:00 00:00:00 Only Dana Cali 26614.1.1 it y of 3.412.2.7 [place] .3.400349 MD Barjaas [facility] 2022-04-25 2022-04-25 Melonie Thomas, 1.2.840.1 [id number] [id number] 97564 Univers 00:00:00 00:00:00 Only Dana Cali 00204.1.1 it y of 3.412.2.7 [place] .3.396403 MD Barajas [facility] 2022-04-20 2022-04-20 Ancillary Gabi Basurto 1.2.840.1 [id number] Univers 12:30:00 14:55:00 Procedure 39321.1.1 it y of 3.412.2.7 [place] .3.984484 MD Barajas [facility] 2022-04-20 2022-04-20 Ancillary Gabi Denis 1.2.840.1 [id number] Univers 12:30:00 14:55:00 Procedure 34965.1.1 it y of 3.412.2.7 [place] .3.345266 MD Barajas [facility] 2022-04-20 2022-04-20 Travel 1.2.840.1 1.2.980.855 4284 [id number] Univers 00:00:00 00:00:00 32705.1.1 350.1.13.41 ity of 3.412.2.7 2.2.7.3.698 [place] .3.557139 084.[address] [facility] 2022-04-20 2022-04-20 Travel 1.2.840.1 1.2.841.308 2717 158941 Univers 00:00:00 00:00:00 08635.1.1 350.1.13.41 ity of 3.412.2.7 2.2.7.3.698 [place] .3.403588 084.[address] [facility] 2022-04-11 2022-04-11 Gabi Fisher 1.2.840.1 [id number] 10 [id number] Univers 00:00:00 00:00:00 Only 76882.1.1 ity of 3.412.2.7 [place] .3.815680 MD Sainz8 [facility] 2022-04-11 2022-04-11 Telephone Deborahpaola, 1.2.840.1 [id number] 1095 [id number] Univers 00:00:00 00:00:00 December L 98989.1.1 ity of 3.412.2.7 [place] .3.684638 .[address] [facility] 2022-04-11 2022-04-11 Orders MikeGabi adler 1.2.840.1 [id number] 10 [id number] Univers 00:00:00 00:00:00 Only 75553.1.1 ity of 3.412.2.7 [place] .3.587504 MD Sainz[facility] 2022-04-11 2022-04-11 Telephone Pedro, 1.2.840.1 [id number] 1095 [id number] Univers 00:00:00 00:00:00 December L 87100.1.1 ity of 3.412.2.7 [place] .3.750473 .[address] [facility] 2022-04-07 2022-04-07 Telephone Pcp, [facility] 1.2.002.976 7704 1258 Univers 00:00:00 00:00:00 Patient HEALTH 350.1.13.10 it y of Does Not [place].2.[place] NASEEM?BLEA [id number] [address] MEDICAL OFFICE [facility] 2022-04-06 2022-04-06 Laboratory Only, Ang Db Test [facility] 1.2.8 40.114 [id number] Univers 15:30:00 15:36:43 Only Delores Wilknis 350.1.13.10 ity of [place] 4.2.7.2.686 [place] NASEEM?BLEA [id number] [address] MEDICAL OFFICE BUILDING 2022-04-06 2022-04-06 Outpatient R KELSEY [facility] [id number] 6308 Univers 15:30:00 15:30:00 DELORES ity of [facility] 2022-04-06 2022-04-06 Orders Doctor MELVA 1.2.840.114 [id number] Univers 00:00:00 00:00:00 Only Unassigned, THAD 350.1.13.10 ity of [place] [facility] 4.2.7.2.686 [place] as [id number] [address] 2022-03-17 2022-03-17 Infusion Dana Thomas 1.2.840.1 1020 66536 [id number] Univers 14:15:00 16:46:00 Fior Valverde 87424.1.1 ity of 3.412.2.7 [place] .3.721860 [facility] 2022-03-17 2022-03-17 Infusion Dana Rodriguez 1.2.840.1 1020 00876 [id number] Univers 14:15:00 16:46:00 Fior Valverde 47324.1.1 ity of 3.412.2.7 [place] .3.116204 MD Karl meza [facility] 2022-03-17 2022-03-17 Office Dana Thomas 1.2.840.1 12766 4665 [id number] Univers 10:00:00 11:52:21 Visit Gabi Basurto 61137.1.1 ity of 3.412.2.7 [place] .3.617197 MD Karl meza [facility] 2022-03-17 2022-03-17 Office Dana Rodriguez 1.2.840.1 99278 4665 [id number] Univers 10:00:00 11:52:21 Visit Gabi Basurto 17557.1.1 ity of 3.412.2.7 [place] .3.837224 MD [facility] 2022-03-17 2022-03-17 Outpatient KYLER THOMAS MDA MDA [id number] 08:00:09 11:33:23 DANA meza 2022-03-17 2022-03-17 Outpatient KYLER DRIVER MDA MDA [id number] 07:23:32 07:36:42 CHRISTIAN Mitchell [facility] 2022-03-17 2022-03-17 Travel 1.2.840.1 1.2.429.906 3071 [id number] Univers 00:00:00 00:00:00 96188.1.1 350.1.13.41 ity of 3.412.2.7 2.[place]7.3.698 [place] .3.837458 084.[address] [facility] 2022-03-17 2022-03-17 Travel 1.2.840.1 1.2.289.072 0755 [id number] Univers 00:00:00 00:00:00 41246.1.1 350.1.13.41 ity of 3.412.2.7 2.2[place]7.3.698 [place] .3.533313 084.[address] [facility] 2022-03-15 2022-03-15 Melonie Thomas, 1.2.840.1 [id number] 11597 67737 Univers 00:00:00 00:00:00 Only Dana Cali 17530.1.1 it y of 3.412.2.7 [place] .3.843216 MD Sainz[address] [facility] 2022-03-15 2022-03-15 Melonie Thomas, 1.2.840.1 [id number] 05625 61756 Univers 00:00:00 00:00:00 Only Dana Cali 99023.1.1 it y of 3.412.2.7 [place] .3.014439 MD Barajas [facility] 2022-03-12 2022-03-12 Radha Nash, 1.2.840.1 [id number] 3443 Univers 00:00:00 00:00:00 Saamir 28655.1.1 ity of 3.412.2.7 [place] .3.433234 MD Barajas [facility] 2022-03-12 2022-03-12 Radha Nash, 1.2.840.1 [id number] 1444 Univers 00:00:00 00:00:00 Saamir 16303.1.1 ity of 3.412.2.7 [place] .3.201009 MD Sainz[facility] 2022-03-09 2022-03-09 Melonie Driver, 1.2.840.1 [id number] 6947 Univers 00:00:00 00:00:00 Only Christian 29337.1.1 ity of 3.412.2.7 [place] .3.684619 MD Sainz[facility] 2022-03-09 2022-03-09 Melonie Driver, 1.2.840.1 [id number] 0904 Univers 00:00:00 00:00:00 Only Christian 55412.1.1 ity of 3.412.2.7 [place] .3.794965 MD Sainz[facility] 2022-03-01 2022-03-01 Radha Stevens, 1.2.840.1 [id number] Univers 00:00:00 00:00:00 Nolberto Negrete 82138.1.1 it y of 3.412.2.7 [place] .3.846849 MD Sainz[address] [facility] 2022-03-01 2022-03-01 Radha Stevens, 1.2.840.1 [id number] Univers 00:00:00 00:00:00 Nolberto Negrete 33437.1.1 it y of 3.412.2.7 [place] .3.372335 MD Sainz[facility] 2022-02-17 2022-02-17 Infusion Dana Thomas 1.2.840.1 1020 [id number] Univers 12:30:00 15:19:57 Vickie Graves 21460.1.1 ity of 3.412.2.7 [place] .3.211038 MD Sainz[address] [facility] 2022-02-17 2022-02-17 Infusion Dana Thomas 1.2.840.1 1020 64231 [id number] Univers 12:30:00 15:19:57 Vickie Graves 03158.1.1 ity of 3.412.2.7 [place] .3.930462 MD Barajas [facility] 2022-02-17 2022-02-17 Melonie Thomas, 1.2.840.1 [id number] Univers 00:00:00 00:00:00 Only Dana Cali 01721.1.1 it y of 3.412.2.7 [place] .3.798648 MD Sainz[address] [facility] 2022-02-17 2022-02-17 Travel 1.2.840.1 1.2.365.775 2640 [id number] Univers 00:00:00 00:00:00 30109.1.1 350.1.13.41 ity of 3.412.2.7 [place]7.3.698 [place] .3.023681 084.Radha Barajas [facility] 2022-02-17 2022-02-17 Melonie Thomas, 1.2.840.1 [id number] 93395 Univers 00:00:00 00:00:00 Only Dana Cali 39589.1.1 it y of 3.412.2.7 [place] .3.716897 MD Barajas [facility] 2022-02-17 2022-02-17 Travel 1.2.840.1 1.2.975.401 0491 [id number] Univers 00:00:00 00:00:00 98876.1.1 350.1.13.41 ity of 3.412.2.7 2.[place]7.3.698 [place] .3.475309 084.Radha Barajas [facility] 2022-02-10 2022-02-10 Office Dana Thomas 1.2.840.1 32695 4665 [id number] Univers 11:00:00 11:30:00 Visit Gabi Basurto 86859.1.1 ity of 3.412.2.7 [place] .3.195570 MD Barajas [facility] 2022-02-10 2022-02-10 Office Dana Thomas 1.2.840.1 94911 4665 [id number] Univers 11:00:00 11:30:00 Visit Gabi Basurto 05413.1.1 ity of 3.412.2.7 [place] .3.896819 MD Barajas [facility] 2022-02-10 2022-02-10 Travel 1.2.840.1 1.2.346.342 2675 [id number] Univers 00:00:00 00:00:00 38780.1.1 350.1.13.41 ity of 3.412.2.7 2.[place]7.3.698 [place] .3.005603 084.[address] [facility] 2022-02-10 2022-02-10 Melonie Driver 1.2.840.1 [id number] 0522 Univers 00:00:00 00:00:00 Only Christian 60429.1.1 ity of 3.412.2.7 [place] .3.524209 MD Barajas [facility] 2022-02-10 2022-02-10 Travel 1.2.840.1 1.2.191.914 4127 [id number] Univers 00:00:00 00:00:00 57825.1.1 350.1.13.41 ity of 3.412.2.7 2.[place]7.3.698 [place] .3.881907 084.[address] [facility] 2022-02-10 2022-02-10 Melonie Driver 1.2.840.1 [id number] Univers 00:00:00 00:00:00 Only Christian 70302.1.1 ity of 3.412.2.7 [place] .3.263966 MD Barajas [facility] 2022-02-09 2022-02-09 Office Jhonatan 1.2.840.1 [id number] Univers 09:30:00 10:00:00 Visit Juan. 49133.1.1 it y of 3.412.2.7 [place] .3.475907 MD Barajas [facility] 2022-02-09 2022-02-09 Office Jhonatan 1.2.840.1 [id number] Univers 09:30:00 10:00:00 Visit Nolberto Negrete 41817.1.1 it y of 3.412.2.7 [place] .3.500621 MD Barajas [facility] 2022-02-09 2022-02-09 Melonie Usming, 1.2.840.1 [id number] 68336 02729 Univers 00:00:00 00:00:00 Only Dana Cali 31524.1.1 it y of 3.412.2.7 [place] .3.677971 MD Barajas [facility] 2022-02-09 2022-02-09 Travel 1.2.840.1 1.2.255.076 6480 [id number] Univers 00:00:00 00:00:00 45623.1.1 350.1.13.41 ity of 3.412.2.7 2.[place]7.3.698 [place] .3.5532[place] 084Karl Barajas [facility] 2022-02-09 2022-02-09 Melonie Thomas, 1.2.840.1 [id number] 73980 23996 Univers 00:00:00 00:00:00 Only Dana Cali 09531.1.1 it y of 3.412.2.7 [place] .3.102615 MD Barajas [facility] 2022-02-09 2022-02-09 Travel 1.2.840.1 1.2.445.342 6820 [id number] Univers 00:00:00 00:00:00 88646.1.1 350.1.13.41 ity of 3.412.2.7 2.[place]7.3.698 [place] .3.675[place] 084Karl Barajas [facility] 2022-01-24 2022-01-24 Haydee Calles, 1.2.840.1 [id number] 1092 [id number] Univers 00:00:00 00:00:00 Cherrie Bunrett 39806.1.1 it y of 3.412.2.7 [place] .3.574314 MD Barajas [facility] 2022-01-24 2022-01-24 Telephone White, 1.2.840.1 [id number] [id number] Univers 00:00:00 00:00:00 Cherrie Burnett 50795.1.1 it y of 3.412.2.7 [place] .3.603861 MD Sainz8 [facility] 2022-01-13 2022-01-13 Infusion KYLER Thomas, 1.2.840.1 [id number] 1091 [id number] Univers 10:45:00 12:24:32 Dana Cali 77870.1.1 it y of 3.412.2.7 [place] .3Emeli796085 MD Sainz8 [facility] 2022-01-13 2022-01-13 Infusion Cali, 1.2.840.1 [id number] 1091 [id number] Univers 10:45:00 12:24:32 Dana Cali 17168.1.1 it y of 3.412.2.7 [place] .3.227645 MD Sainz8 [facility] 2022-01-13 2022-01-13 Office KYLER Thomas, 1.2.840.1 [id number] Univers 08:00:00 09:23:12 Visit Dana Cali 06278.1.1 it y of 3.412.2.7 [place] .3.916483 MD Sainz8 [facility] 2022-01-13 2022-01-13 Office Cali, 1.2.840.1 [id number] Univers 08:00:00 09:23:12 Visit Dana Clai 58795.1.1 it y of 3.412.2.7 [place] .3.310278 MD Sainz8 [facility] 2022-01-13 2022-01-13 Outpatient KYLER THOMAS, [facility] [id number] 06:51:34 07:14:03 DANA meza 2022-01-13 2022-01-13 Travel 1.2.840.1 1.2.396.046 3801 [id number] Univers 00:00:00 00:00:00 22663.1.1 350.1.13.41 ity of 3.412.2.7 [place]7.3.698 [place]3.[place] 084.[address] [facility] 2022-01-13 2022-01-13 Travel 1.2.840.1 1.2.795.606 2664 309064 Univers 00:00:00 00:00:00 81999.1.1 350.1.13.41 ity of 3.412.2.7 [place]7.3.698 [place] .3.116406 084.[address] [facility] 2022-01-12 2022-01-12 Orders Molina, 1.2.840.1 [id number] 0968 Univers 00:00:00 00:00:00 Only Christian 44309.1.1 ity of 3.412.2.7 [place] .3.328153 MD [facility] 2022-01-12 2022-01-12 Orders Cali, 1.2.840.1 [id number] 65718 Univers 00:00:00 00:00:00 Only Dana Cali 76507.1.1 it y of 3.412.2.7 [place] .3.600424 MD [facility] 2022-01-12 2022-01-12 Melonie Driver 1.2.840.1 [id number] [id number] 4175 Univers 00:00:00 00:00:00 Only Christian 25303.1.1 ity of 3.412.2.7 [place] .3.999398 MD [facility] 2022-01-12 2022-01-12 Orders Cali, 1.2.840.1 [id number] 75533 40614 Univers 00:00:00 00:00:00 Only Dana Cali 73704.1.1 it y of 3.412.2.7 [place] .3.538186 MD [facility] 2022-01-05 2022-01-05 Procedure KYLER Stevens, 1.2.840.1 [id number] 1091 [id number] Univers 13:00:00 14:36:13 visit Nolberto Negrete 02332.1.1 it y of 3.412.2.7 [place] .3.316459 MD [facility] 2022-01-05 2022-01-05 Procedure Jhonatan 1.2.840.1 [id number] 1091 [id number] Univers 13:00:00 14:36:13 visit Nolberto Negrete 48545.1.1 it y of 3.412.2.7 [place] .3.084624 MD Sainz[facility] 2022-01-05 2022-01-05 Outpatient KYLER STEVENS MDA MDA [id number] 704 13:24:08 13:24:08 NOLBERTO meza 2022-01-05 2022-01-05 Travel 1.2.840.1 1.2.272.157 9914 854052 Univers 00:00:00 00:00:00 90847.1.1 350.1.13.41 ity of 3.412.2.7 2.2.7.3.698 [place] .3.7196[place] 084.[address] [facility] 2022-01-05 2022-01-05 Travel 1.2.840.1 1.2.525.654 0782 695318 Univers 00:00:00 00:00:00 35428.1.1 350.1.13.41 ity of 3.412.2.7 [place].7.3.698 [place] .3.988450 084.[address] [facility] 2021-12-30 2021-12-30 Telemsarahy Thomas, 1.2.840.1 [id number] 10 [id number] [facility] 13:30:00 14:00:00 jay Cali 93267.1.1 it y of 3.412.2.7 [place] .3.687057 MD [facility] 2021-12-30 2021-12-30 Telemsarahy Thomas, 1.2.840.1 [id number] 10 [id number] Univers 13:30:00 14:00:00 ne Dana D. 54005.1.1 it y of 3.412.2.7 [place] .3.760002 .Radha [facility] 2021-12-30 2021-12-30 Ancillary KYLER Driver, 1.2.840.1 [id number] 1091 [id number] Univers 09:45:00 12:10:00 Procedure Christian 40733.1.1 it y of 3.412.2.7 [place] .3.342219 MD [facility] 2021-12-30 2021-12-30 Ancillary Molina, 1.2.840.1 [id number] 1091 [id number] Univers 09:45:00 12:10:00 Procedure Christian 69518.1.1 it y of 3.412.2.7 [place] .3.731735 MD [facility] 2021-12-30 2021-12-30 Ancillary KYLER Driver, 1.2.840.1 [id number] 1091 [id number] Univers 07:45:00 08:45:00 Procedure Christian 36773.1.1 it y of 3.412.2.7 [place] .3.481644 MD [facility] 2021-12-30 2021-12-30 Ancillary Molina, 1.2.840.1 [id number] 1091 [id number] Univers 07:45:00 08:45:00 Procedure Christian 73992.1.1 it y of 3.412.2.7 [place] .3.480999 MD [facility] 2021-12-30 2021-12-30 Outpatient KYLER DRIVER [facility] [id number] 928 08:09:31 08:09:31 CHRISTIAN Medrano [facility] 2021-12-30 2021-12-30 Travel 1.2.840.1 1.2.188.359 9749 093156 Univers 00:00:00 00:00:00 41044.1.1 350.1.13.41 ity of 3.412.2.7 [place].7.3.698 [place] .3.153465 084.[address] [facility] 2021-12-30 2021-12-30 Travel 1.2.840.1 1.2.755.531 0235 542428 Univers 00:00:00 00:00:00 59050.1.1 350.1.13.41 ity of 3.412.2.7 [place].2.7.3.698 [place] .3.963324 084.[address] [facility] 2021-12-29 2021-12-29 Telephone Pomregina, 1.2.840.1 [id number] 1091 [id number] Univers 00:00:00 00:00:00 Kathleen May 36701.1.1 it y of 3.412.2.7 [place] .3.016069 MD Sainz[facility] 2021-12-29 2021-12-29 Telephone Pomregina, 1.2.840.1 [id number] 1091 [id number] Univers 00:00:00 00:00:00 Kathleen May 05747.1.1 it y of 3.412.2.7 [place] .3.756475 MD [facility] 2021-12-28 2021-12-28 Melonie Driver, 1.2.840.1 [id number] 4485 Univers 00:00:00 00:00:00 Only Christian 70772.1.1 ity of 3.412.2.7 [place] .3.598075 MD [facility] 2021-12-28 2021-12-28 Melonie Driver 1.2.840.1 [id number] [id number] 8118 Univers 00:00:00 00:00:00 Only Christian 88313.1.1 ity of 3.412.2.7 [place] .3.345050 MD [facility] 2021-12-26 2021-12-26 Melonie Driver 1.2.840.1 [id number] 4881 Univers 00:00:00 00:00:00 Only Christian 87818.1.1 ity of 3.412.2.7 [place] .3.322106 MD [facility] 2021-12-26 2021-12-26 Telephone Jenae, 1.2.840.1 [id number] 1091 [id number] Univers 00:00:00 00:00:00 Kathleen Castaneda 62155.1.1 it y of 3.412.2.7 [place] .3Emeli776445 MD Sainz[facility] 2021-12-26 2021-12-26 Melonie Stevens, 1.2.840.1 [id number] 4317 Univers 00:00:00 00:00:00 Only Nolberto Negrete 64472.1.1 it y of 3.412.2.7 [place] .3Louie955617 .[address] [facility] 2021-12-26 2021-12-26 Orders Molina, 1.2.840.1 [id number] 5706 Univers 00:00:00 00:00:00 Only Christian 11658.1.1 ity of 3.412.2.7 [place] .3.977910 MD Sainz[facility] 2021-12-26 2021-12-26 Haydee Emanuel, 1.2.840.1 [id number] 1091 [id number] Univers 00:00:00 00:00:00 Kathleen Castaneda 39078.1.1 it y of 3.412.2.7 [place] .3.381395 MD Sainz[facility] 2021-12-26 2021-12-26 Melonie Stevens, 1.2.840.1 [id number] 723444 6039 Univers 00:00:00 00:00:00 Only Nolberto Negrete 83508.1.1 it y of 3.412.2.7 [place] .3Louie359767Chago Sainz8 [facility] 2021-12-23 2021-12-23 Office KYLER Stevens, 1.2.840.1 [id number] 1847 Univers 15:00:00 16:00:00 Visit Nolberto Negrete 88182.1.1 it y of 3.412.2.7 [place] .3Emeli198893 MD Sainz[facility] 2021-12-23 2021-12-23 Office Jhonatan 1.2.840.1 [id number] 6950 Univers 15:00:00 16:00:00 Visit Nolberto Negrete 62037.1.1 it y of 3.412.2.7 [place] .3.240075 .Radha [facility] 2021-12-23 2021-12-23 Office KYLER Driver, 1.2.840.1 [id number] 308194 4450 Univers 13:30:00 14:00:00 Visit Christian 70027.1.1 ity of 3.412.2.7 [place] .3.186457 .[address] [facility] 2021-12-23 2021-12-23 Office Molina, 1.2.840.1 [id number] 1590 Univers 13:30:00 14:00:00 Visit Christian 08656.1.1 ity of 3.412.2.7 [place] .3.310753 MD [facility] 2021-12-23 2021-12-23 Outpatient KYLER DRIVER, [facility] MDA [id number] 784 11:48:07 12:10:51 CHRISTIAN [facility] 2021-12-23 2021-12-23 Travel 1.2.840.1 1.2.125.050 5913 693918 Univers 00:00:00 00:00:00 51851.1.1 350.1.13.41 ity of 3.412.2.7 2.2.7.3.698 [place] .3.546567 084.[address] [facility] 2021-12-23 2021-12-23 Travel 1.2.840.1 1.2.215.306 6399 913266 Univers 00:00:00 00:00:00 48072.1.1 350.1.13.41 ity of 3.412.2.7 2.2.7.3.698 [place] .3.599207 084.[address] [facility] 2021-12-21 2021-12-21 Documentat Mirna, 1.2.840.1 [id number] 1 [id number] Univers 00:00:00 00:00:00 ion Carlos 53360.1.1 i ty of M 3.412.2.7 [place] .3.225199 MD [facility] 2021-12-21 2021-12-21 Documentat Mirna, 1.2.840.1 [id number] 1 [id number] Univers 00:00:00 00:00:00 ion Carlos 72312.1.1 i ty of M 3.412.2.7 [place] .3.478306 MD Sainz[facility] 2021-12-16 2021-12-16 [facility] KYLER Driver, 1.2.840.1 [id number] 096 [id number] Univers 14:30:00 15:00:00 ne Christian 75035.1.1 ity of 3.412.2.7 [place] .3.030177 MD Sainz[facility] 2021-12-16 2021-12-16 [facility] Molina, 1.2.840.1 [id number] 742 [id number] Univers 14:30:00 15:00:00 jay Christian 31642.1.1 ity of 3.412.2.7 [place] .3.160584 MD Sainz[facility] 2021-12-13 2021-12-13 [facility], 1.2.840.1 [id number] 16294 Univers 15:12:24 23:59:00 Encounter Neelam 48570.1.1 i ty of 3.412.2.7 [place] .3.120672 MD [facility] 2021-12-13 2021-12-13 [facility] 1.2.840.1 [id number] 46992 72336 Univers 15:12:24 23:59:00 Encounter Neelam 40787.1.1 i ty of 3.412.2.7 [place] .3.627709 MD Sainz[facility] 2021-12-13 2021-12-13 Follow-Up Angel Reeves 1.2.840.1 [id number] 19 [id number] Univers 13:30:00 15:20:07 Neelam Grant 53166.1.1 ity of 3.412.2.7 [place] .3.679406 MD [facility] 2021-12-13 2021-12-13 Follow-Up Angel Nash 1.2.840.1 [id number] 19 [id number] Univers 13:30:00 15:20:07 Neelam Grant 56939.1.1 ity of 3.412.2.7 [place] .3.599456 MD [facility] 2021-12-13 2021-12-13 Travel 1.2.840.1 1.2.691.933 7825 085630 Univers 00:00:00 00:00:00 43680.1.1 350.1.13.41 ity of 3.412.2.7 2.2.7.3.698 [place] .3.529341 084.[address] [facility] 2021-12-13 2021-12-13 Travel 1.2.840.1 1.2.396.677 2042 [id number] Univers 00:00:00 00:00:00 68052.1.1 350.1.13.41 ity of 3.412.2.7 2.2.7.3.698 [place] .3.633516 084.[address] [facility] 2021-12-12 2021-12-12 Telephone Molina 1.2.840.1 [id number] 1090 [id number] Univers 00:00:00 00:00:00 Christian 37263.1.1 ity of 3.412.2.7 [place] .3.353741 MD [facility] 2021-12-12 2021-12-12 Telephone Molina 1.2.840.1 [id number] 1090 [id number] Univers 00:00:00 00:00:00 Christian 25198.1.1 ity of 3.412.2.7 [place] .3.560229 MD [facility] 2021-12-07 2021-12-07 TelemedicDana Valadez 1.2.840.1 10 [id number] Univers 14:00:00 14:30:00 Christian Greenfield 67459.1.1 ity of 3.412.2.7 [place] .3.909255 MD [facility] 2021-12-07 2021-12-07 Telemedici Dana Rodriguez 1.2.840.1 10 [id number] Univers 14:00:00 14:30:00 ne Christian Driver 74481.1.1 ity of 3.412.2.7 [place] .3.075099 MD [facility] 2021-12-02 2021-12-02 Telephone Lebato, 1.2.840.1 [id number] 1090 [id number] Univers 00:00:00 00:00:00 December L 32404.1.1 ity of 3.412.2.7 [place] .3.924886 MD [facility] 2021-12-02 2021-12-02 Telephone Lebato, 1.2.840.1 [id number] 1090 [id number] Univers 00:00:00 00:00:00 Dorinda L 58010.1.1 ity of 3.412.2.7 [place] .3.146557 MD [facility] 2021-11-28 2021-11-28 [facility], 1.2.840.1 [id number] 30714 20339 Univers 07:30:00 23:59:00 Encounter Saamir 82357.1.1 it y of 3.412.2.7 [place] .3Emeli025850 MD [facility] 2021-11-28 2021-11-28 [facility], 1.2.840.1 [id number] 30742 38413 Univers 07:30:00 23:59:00 Encounter Saamir 22067.1.1 it y of 3.412.2.7 [place] .3.219160 MD [facility] 2021-11-28 2021-11-28 [facility], 1.2.840.1 [id number] 1090 [id number] Univers 07:11:29 07:29:00 Encounter Star 85371.1.1 it y of 3.412.2.7 [place] .3.198653 MD [facility] 2021-11-28 2021-11-28 [facility], 1.2.840.1 [id number] 1090 [id number] Univers 07:11:29 07:29:00 Encounter Star 95706.1.1 it y of 3.412.2.7 [place] .3.532234 MD [facility] 2021-11-28 2021-11-28 Travel 1.2.840.1 1.2.910.890 6732 132496 Univers 00:00:00 00:00:00 17616.1.1 350.1.13.41 ity of 3.412.2.7 2.2.7.3.698 [place] .3.203086 084.[address] [facility] 2021-11-28 2021-11-28 Travel 1.2.840.1 1.2.908.413 3853 490350 Univers 00:00:00 00:00:00 56223.1.1 350.1.13.41 ity of 3.412.2.7 2.2.7.3.698 [place] .3.297335 084.[address] [facility] 2021-11-21 2021-11-21 [facility], 1.2.840.1 [id number] 64447 42389 Univers 07:00:00 23:59:00 Encounter Saamir 48723.1.1 it y of 3.412.2.7 [place] .3.632262 MD [facility] 2021-11-21 2021-11-21 [facility], 1.2.840.1 [id number] 69242 32663 Univers 07:00:00 23:59:00 Encounter Saamir 93287.1.1 it y of 3.412.2.7 [place] .3.886532 MD [facility] 2021-11-21 2021-11-21 [facility] Sanchez, 1.2.840.1 [id number] 092 [id number] Univers 14:52:05 14:52:05 Event Brooke L 32129.1.1 it y of 3.412.2.7 [place] .3.122219 MD [facility] 2021-11-21 2021-11-21 Anesthesia Daniel, 1.2.840.1 [id number] 715 [id number] Univers 14:52:05 14:52:05 Event Brooke Robles 60179.1.1 it y of 3.412.2.7 [place] .3.323162 MD [facility] 2021-11-21 2021-11-21 Telephone Mirna, 1.2.840.1 [id number] 10 [id number] Univers 00:00:00 00:00:00 Maeadeline 03267.1.1 i ty of M 3.412.2.7 [place] .3.744256 MD [facility] 2021-11-21 2021-11-21 Documentat Mirna, 1.2.840.1 [id number] 1 [id number] Univers 00:00:00 00:00:00 ion Maeadeline 08531.1.1 i ty of M 3.412.2.7 [place] .3.044083 MD [facility] 2021-11-21 2021-11-21 Orders Saad, 1.2.840.1 [id number] 7470 Univers 00:00:00 00:00:00 Only Saamir 01151.1.1 ity of 3.412.2.7 [place] .3.283895 MD [facility] 2021-11-21 2021-11-21 Travel 1.2.840.1 1.2.949.309 1986 [id number] Univers 00:00:00 00:00:00 39547.1.1 350.1.13.41 ity of 3.412.2.7 2.2.7.3.698 [place] .3.265847 084.[address] [facility] 2021-11-21 2021-11-21 Telephone Mirna, 1.2.840.1 [id number] 10 [id number] Univers 00:00:00 00:00:00 Maeadeline 87842.1.1 i ty of M 3.412.2.7 [place] .3.088193 MD [facility] 2021-11-21 2021-11-21 Documentat Mirna, 1.2.840.1 [id number] 1 [id number] Univers 00:00:00 00:00:00 ion Agustoeadeline 36724.1.1 i ty of M 3.412.2.7 [place] .3.253272 MD [facility] 2021-11-21 2021-11-21 Orders Nash, 1.2.840.1 [id number] 0247 Univers 00:00:00 00:00:00 Only Saamir 45158.1.1 ity of 3.412.2.7 [place] .3.005182 MD [facility] 2021-11-21 2021-11-21 Travel 1.2.840.1 1.2.035.291 7014 528132 Univers 00:00:00 00:00:00 84665.1.1 350.1.13.41 ity of 3.412.2.7 2.2.7.3.698 [place] .3.846247 084.[address] [facility] 2021-11-18 2021-11-18 [facility] 1.2.840.1 [id number] 1089 [id number] Univers 11:00:00 23:59:00 Encounter Dana Cali 33662.1.1 ity of 3.412.2.7 [place] .3.707847 MD [facility] 2021-11-18 2021-11-18 [facility] 1.2.840.1 [id number] 1089 [id number] Univers 11:00:00 23:59:00 Encounter Dana Cali 63745.1.1 ity of 3.412.2.7 [place] .3.462974 MD [facility] 2021-11-18 2021-11-18 [facility] Dana Thomas 1.2.840.1 54337 [id number] [id number] Univers 15:15:00 16:00:00 Oli Susan Nunez 13021.1.1 ity of 3.412.2.7 [place] .3.679485 MD [facility] 2021-11-18 2021-11-18 Dana Irizarry 1.2.840.1 34386 [id number] [id number] Univers 15:15:00 16:00:00 JakerolandoTiesha frasersage Nunez 17634.1.1 ity of 3.412.2.7 [place] .3.328123 MD [facility] 2021-11-18 2021-11-18 CON Thomas 1.2.840.1 [id number] 47208 68122 Univers 14:00:00 15:24:25 Appointnatasha Cali 73261.1.1 ity of ts 3.412.2.7 [place] .3.189058 MD [facility] 2021-11-18 2021-11-18 CON Thomas 1.2.840.1 [id number] 06831 96842 Univers 14:00:00 15:24:25 Appointnatasha Cali 65765.1.1 ity of ts 3.412.2.7 [place] .3.623382 MD [facility] 2021-11-18 2021-11-18 Telemsarahy Driver, 1.2.840.1 [id number] 077 [id number] Univers 15:00:00 15:15:00 jay Gonzales 13523.1.1 ity of 3.412.2.7 [place] .3.518909 MD [facility]ajas [facility] 2021-11-18 2021-11-18 Telemsarahy Driver, 1.2.840.1 [id number] 206 [id number] Univers 15:00:00 15:15:00 ne Christian 16621.1.1 ity of 3.412.2.7 [place] .3.718820 MD [facility] 2021-11-18 2021-11-18 Dana Bonner 1.2.840.1 1010 35582 [id number] Univers 11:30:00 12:12:03 Support Rosalinda Topete 73341.1.1 ity of 3.412.2.7 [place] .3.680133 MD [facility]ajas [facility] 2021-11-18 2021-11-18 Dana Sutherland 1.2.840.1 1010 90826 [id number] Univers 11:30:00 12:12:03 Support Rosalinda Topete 52844.1.1 ity of 3.412.2.7 [place] .3.530093 MD [facility] 2021-11-18 2021-11-18 Travel 1.2.840.1 1.2.041.851 3433 [id number] Univers 00:00:00 00:00:00 54927.1.1 350.1.13.41 ity of 3.412.2.7 2.2.7.3.698 [place] .3.472829 084.[address] [facility] 2021-11-18 2021-11-18 Travel 1.2.840.1 1.2.573.661 7928 624337 Univers 00:00:00 00:00:00 20180.1.1 350.1.13.41 ity of 3.412.2.7 2.2.7.3.698 [place] .3.330653 084.[address] [facility] 2021-11-16 2021-11-16 [facility], 1.2.840.1 [id number] 84125 74606 Univers 09:38:14 23:59:00 Encounter Los 76086.1.1 it y of 3.412.2.7 [place] .3.650646 MD [facility] 2021-11-16 2021-11-16 [facility], 1.2.840.1 [id number] 76336 40567 Univers 09:38:14 23:59:00 Encounter Los 57926.1.1 it y of 3.412.2.7 [place] .3.491487 MD [facility] 2021-11-16 2021-11-16 Consult Saad, 1.2.840.1 [id number] 3717 Univers 09:40:00 10:51:59 Saamir 85660.1.1 ity of 3.412.2.7 [place] .3.557366 MD [facility] 2021-11-16 2021-11-16 Consult KYLER Nash, 1.2.840.1 [id number] Univers 09:40:00 10:51:59 Saamir 83060.1.1 ity of 3.412.2.7 [place] .3.760188 MD [facility] 2021-11-16 2021-11-16 Documentat Mirna, 1.2.840.1 [id number] 1 [id number] Univers 00:00:00 00:00:00 ion Maeadeline 42266.1.1 i ty of M 3.412.2.7 [place] .3.736361 MD [facility] 2021-11-16 2021-11-16 Melonie Nash, 1.2.840.1 [id number] 7479 Univers 00:00:00 00:00:00 Only Saamir 75334.1.1 ity of 3.412.2.7 [place] .3.017379 MD [facility] 2021-11-16 2021-11-16 Travel 1.2.840.1 1.2.591.505 3772 [id number] Univers 00:00:00 00:00:00 68646.1.1 350.1.13.41 ity of 3.412.2.7 2.2.7.3.698 [place] .3.895145 084.[address] [facility] 2021-11-16 2021-11-16 Documentat Mirna, 1.2.840.1 [id number] 1 [id number] Univers 00:00:00 00:00:00 ion Maeadeline 85484.1.1 i ty of M 3.412.2.7 [place] .3.299715 MD [facility] 2021-11-16 2021-11-16 Orders Saad, 1.2.840.1 [id number] Univers 00:00:00 00:00:00 Only Ireneluke 23275.1.1 ity of 3.412.2.7 [place] .3.696751 MD Sainz[facility] 2021-11-16 2021-11-16 Travel 1.2.840.1 1.2.614.840 3746 [id number] Univers 00:00:00 00:00:00 21979.1.1 350.1.13.41 ity of 3.412.2.7 2.2.7.3.698 [place] .3.948270 084.[address] [facility] 2021-11-04 2021-11-04 Telemedici KYLER Thomas, 1.2.840.1 [id number] 10 [id number] Univers 14:30:00 15:00:00 ne Dana Cali 47273.1.1 it y of 3.412.2.7 [place] .3.189245 MD [facility] 2021-11-04 2021-11-04 Ancillary KYLER Driver, 1.2.840.1 [id number] 1089 [id number] Univers 11:00:00 12:45:00 Procedure Christian 20672.1.1 it y of 3.412.2.7 [place] .3.828544 MD [facility] 2021-11-04 2021-11-04 Ancillary KYLER Driver, 1.2.840.1 [id number] 1089 [id number] Univers 09:15:00 10:15:00 Procedure Christian 50426.1.1 it y of 3.412.2.7 [place] .3.139373 MD [facility] 2021-11-04 2021-11-04 Prep parvin Thomas, 1.2.840.1 [id number] 1089 [id number] Univers 00:00:00 00:00:00 Surgery Dana Cali 45394.1.1 it y of 3.412.2.7 [place] .3.451033 MD [facility] 2021-11-04 2021-11-04 Haydee Thomas, 1.2.840.1 [id number] 172 [id number] Univers 00:00:00 00:00:00 Dana Cali 32028.1.1 it y of 3.412.2.7 [place] .3.093688 MD [facility] 2021-11-04 2021-11-04 Travel 1.2.840.1 1.2.085.287 2059 [id number] Univers 00:00:00 00:00:00 92584.1.1 350.1.13.41 ity of 3.412.2.7 2.2.7.3.698 [place] .3.714541 084.[address] [facility] 2021-11-03 2021-11-03 Multidisci KYLER Thomas, 1.2.840.1 [id number] Univers 16:00:00 16:11:25 plinary Dana Cali 47142.1.1 it y of Visit 3.412.2.7 [place] .3.359757 MD Barajas [facility] 2021-11-03 2021-11-03 Travel 1.2.840.1 1.2.295.716 4957 [id number] [facility] 00:00:00 00:00:00 47015.1.1 350.1.13.41 ity of 3.412.2.[place].3.698 [place] .3.359[place] 084.[address] [facility] 2021-11-01 2021-11-01 Melonie Driver, 1.2.840.1 [id number] [facility] 00:00:00 00:00:00 Only Christian 98193.1.1 ity of 3.412.2.7 [place] .3.732217 MD Barajas [facility] 2021-10-28 2021-10-28 Ancillary KYLER Thomas, 1.2.840.1 [id number] Univers 20:30:00 20:35:00 Procedure Dana Cali 76529.1.1 ity of 3.412.2.7 [place] .3.203591 MD Sainz[facility] 2021-10-28 2021-10-28 Ancillary EL Thomas, 1.2.840.1 [id number] Univers 20:25:00 20:30:00 Procedure Dana Cali 87277.1.1 ity of 3.412.2.7 [place] .3.667266 MD Sainz[facility] 2021-10-28 2021-10-28 Ancillary EL Thomas, 1.2.840.1 [id number] [facility] 20:20:00 20:25:00 Procedure Dana Cali 52030.1.1 ity of 3.412.2.7 [place] .3.143698 MD Sainz[facility] 2021-10-28 2021-10-28 Ancillary KYLER Thomas, 1.2.840.1 [id number] Univers 20:15:00 20:20:00 Procedure Dana Cali 58798.1.1 ity of 3.412.2.7 [place] .3.319786 MD Sainz[facility] 2021-10-28 2021-10-28 Ancillary KYLER Thomas, 1.2.840.1 [id number] Univers 20:10:00 20:15:00 Procedure Dana Cali 24382.1.1 ity of 3.412.2.7 [place] .3.565392 MD Sainz[facility] 2021-10-28 2021-10-28 Ancillary KYLER Thomas, 1.2.840.1 [id number] Univers 20:05:00 20:10:00 Procedure Dana Cali 40573.1.1 ity of 3.412.2.7 [place] .3.483143 MD Sainz[facility] 2021-10-28 2021-10-28 Ancillary KYLER Thomas, 1.2.840.1 [id number] [facility] 20:00:00 20:05:00 Procedure Dana Cali 18077.1.1 ity of 3.412.2.7 [place] .3Emeli449138 MD Sainz[facility] 2021-10-28 2021-10-28 Melonie Driver 1.2.840.1 [id number] [facility] 00:00:00 00:00:00 Only Christian 34926.1.1 ity of 3.412.2.7 [place] .3Emeli799171 MD Sainz[facility] 2021-10-28 2021-10-28 Melonie Thomas 1.2.840.1 [id number] Univers 00:00:00 00:00:00 Only Dana Cali 91802.1.1 it y of 3.412.2.7 [place] .3Emeli073797 MD Sainz[facility] 2021-10-26 2021-10-26 [facility] Dar Rios 1.2.840 .1 [id number] Univers 19:02:00 23:59:00 Encounter Dana Thomas 32578.1.1 ity of 3.412.2.7 [place] .3Emeli954807 MD Sainz[facility] 2021-10-25 2021-10-25 Hospital Dana Rodriguez 1.2.840.1 1020 [id number] Univers 09:26:28 23:59:00 Encounter Fermin Hoffman 60196.1.1 ity of Jazzmine Xiao 3.412.2.7 Herberth Shirley3.530426 MD Barajas [facility] 2021-10-25 2021-10-25 Anesthesia Ede 1.2.840.1 [id number] Univers 11:51:00 13:07:00 Event Herberth Chang 06971.1.1 i ty of 3.412.2.7 [place] .3Emeli274182 MD Barajas [facility] 2021-10-25 2021-10-25 Travel 1.2.840.1 1.2.024.574 [id number] [id number] [facility] 00:00:00 00:00:00 16363.1.1 350.1.13.41 ity of 3.412.2.7 2.[place]7.3.698 [place] .3.186660 084.[address] [facility] 2021-10-24 2021-10-24 Anesthesia Lukas 1.2.840.1 [id number] Univers 23:59:59 23:59:59 Event Roxi 39282.1.1 ity of 3.412.2.7 [place] .3.687931 MD Barajas [facility] 2021-10-24 2021-10-24 Hospital Dana Rodriguez 1.2.840.1 1020 [id number] Univers 10:13:24 23:59:00 Genaro Christine 53841.1.1 ity of 3.412.2.7 [place] .3.613419 MD Barajas [facility] 2021-10-24 2021-10-24 Outpatient KYLER GONSALEZ MDA MDA [id number] 09:55:40 10:10:08 LOS meza 2021-10-24 2021-10-24 Clinical Dana Rodriguez 1.2.840.1 1020 [id number] Univers 09:45:00 09:54:27 Support Cindy Núñez 43060.1.1 ity of 3.412.2.7 [place] .3.078138 MD Barajas [facility] 2021-10-24 2021-10-24 CON Thomas 1.2.840.1 [id number] Univers 09:00:00 09:30:00 Delma Cali 68845.1.1 ity of ts 3.412.2.7 [place] .3.667823 MD Barajas [facility] 2021-10-24 2021-10-24 Genaro Collins 1.2.840.1 [id number] Univers 00:00:00 00:00:00 Only T 67551.1.1 ity of 3.412.2.7 [place] .3.644379 MD Barajas [facility] 2021-10-24 2021-10-24 Travel 1.2.840.1 1.2.924.040 8834 [id number] [facility] 00:00:00 00:00:00 51649.1.1 350.1.13.41 ity of 3.412.2.7 2.[place]7.3.698 [place] .3.610463 084.8 MD [facility] [place] [facility] 2021-10-18 2021-10-18 Orders Gonsalez, 1.2.840.1 [id number] Univers 00:00:00 00:00:00 Only Los 01985.1.1 ity of 3.412.2.7 [place] .3.787820 MD Sainz[address] [facility] 2021-10-18 2021-10-18 Telephone Chris, 1.2.840.1 [id number] Univers 00:00:00 00:00:00 Sabra 46355.1.1 ity of 3.412.2.7 [place] .3.405433 MD Sainz[address] [facility] 2021-10-14 2021-10-14 Telemedici KYLER Thomas, 1.2.840.1 [id number] Univers 14:00:00 14:30:00 jay Cali 91055.1.1 it y of 3.412.2.7 [place] .3.260413 MD Sainz[address] [facility] 2021-10-13 2021-10-13 Ancillary KYLER Driver, 1.2.840.1 [id number] Univers 07:15:00 09:40:00 Procedure Christian 30642.1.1 it y of 3.412.2.7 [place] .3.775515 MD Sainz[address] [facility] 2021-10-13 2021-10-13 Travel 1.2.840.1 [id number] Univers 00:00:00 00:00:00 80666.1.1 350.1.13.41 ity of 3.412.2.7 2.[place].7.3.698 [place] .3.088305 084.[address] [facility] 2021-10-03 2021-10-03 Telephone Molina, 1.2.840.1 [id number] Univers 00:00:00 00:00:00 Christian 91694.1.1 ity of 3.412.2.7 [place] .3.287096 .8 [facility] 2021-09-30 2021-09-30 Office KYLER Driver, 1.2.840.1 [id number] Univers 13:00:00 13:51:12 Visit Christian 89605.1.1 ity of 3.412.2.7 [place] .3.079565 MD Sainz8 [facility] 2021-09-30 2021-09-30 Outpatient KYLER DRIVER MDA MDA [id number] 11:34:41 11:41:58 CHRISTIAN meza 2021-09-30 2021-09-30 Travel 1.2.840.1 1.2.719.172 [id number] Univers 00:00:00 00:00:00 24740.1.1 350.1.13.41 ity of 3.412.2.7 2.2.7.3.698 [place] .3.397287 084.8 [facility] 2021-03-23 2021-03-23 Outpatient KYLER THOMAS MDA MDA [id number] 11:10:26 11:10:26 DANA meza 2021-03-23 2021-03-23 Outpatient KYLER DRIVER MDA MDA [id number] 10:25:02 10:41:31 CHRISTIAN meza Results Test Description Test Time Test Comments Results Result Comments Source CA 125 2022-10-19 15:12:00 Test Item Value Reference Range Interpretation Comme nts CA 125 (test code = 9.5 U/mL <=38.0 Results greater than 11,500.0 U/mL may not 5169) be reliable due to matrix effect with extended diluti on as it exceeds the orchid hand's recommended limit. Caution should be exerc ised when interpreting such values and done in conjunction with clinical contex t.Reference intervals are not available f or male patients. Results should be inter preted in conjunction with clinical contex t. This test is measured by electrochemilum inescence immunoassay on Baldev Dereck imm unoassay analyzers. Results obtained in dif ferent methods are not interchangeable .Testing Performed at [facility] Lab Vac Press Operator [facility], [address], [address], [place] [address] [facility] [id number] 17:40:43 Test Item Value Reference Range Interpretation Comments POC Crea (test code = 1.0 mg/dL 0.6-1.3 Medica tions, 99158-0) especially hydr oxyurea or supplements, such as ascorbate, c an interfere with test results causing a falsely and significantly h igher result than exp ected. If a problem is suspected with a patient's resul t, a sample should b e sent to the laborato ry for confirmatory te sting. Method descript ion: The i-STAT is a n analyzer used f or in vitro quantific ation of various anal ytes in whole blood. e device uses a s yesi disposable cart ridge which contains microfabricated sensors, a jarod bration solution, fluid ics system, and a w aste chamber. Each t est cartridge conta ins chemically sens itive biosensors on a silicon chip at are configured to p erform specific tests. The microfabricated sensors measure analyte concent ration by an electroch emical assay. POC eGFR-AA (test code 66 See_Comment Myesha l eGFR >= 60 = 62681-4) mL/min/1.73 m2 The eGFR is calcula elena using the CKD-E PI equation. The e GFR declines with a ge. eGFR <60 mL/min /1.73 m2 is considere d as "decreased" Thi s equation should only be used for pat ients 18 and older. According to National Kidney Foundation's Ki dney Disease Outcome Quality Initiat ines (KDOQI) classif ication and 2012 Kidney Disease Improvi ng Global Outcomes (KDIGO) Clinica l Practice Guidel ine, the stage of CK D should be categ orized based on estima elena GFR. Stage Desc ription GFR mL/min/1.73 m21 Kidney damage w ith normal or high GFR >=902 Kidney da mage with mild decre ase in GFR 60-893a Mil d to moderate decrea se in GFR 45-593b Mod erate to severe decre ase in GFR 30-444 Marleny re decrease in GFR 15-295 Kidney failure <15 (or dialysis) [Auto mated message] The sy stem which generated this result transmit elena reference range : >=60 mL/min/1.73 m2. The reference range was not used to int erpret this result as normal/abnormal . POC eGFR-EVELINA (test 57 See_Comment L Normal eG FR >= 60 code = 78986-8) mL/min/1.73 m2 The eGFR is calcula elena using the CKD-E PI equation. The e GFR declines with a ge. eGFR <60 mL/min /1.73 m2 is considere d as "decreased" Thi s equation should only be used for pat ients 18 and older. According to th e National Kidney Foundation's Ki dney Disease Outcome Quality Initiat ines (KDOQI) classif ication and 2011 Kidney Disease Improvi ng Global Outcomes (KDIGO) Clinica l Practice Guidel ine, the stage of CK D should be categ orized based on estima elena GFR. Stage Desc ription GFR mL/min/1.73 m21 Kidney damage w ith normal or high GFR >=902 Kidney da mage with mild decre ase in GFR 60-893a Mil d to moderate decrea se in GFR 45-593b Mod erate to severe decre ase in GFR 30-444 Marleny re decrease in GFR 15-295 Kidney failure <15 (or dialysis) [Auto mated message] The sy stem which generated this result transmit elena reference range : >=60 mL/min/1.73 m2. The reference range was not used to int erpret this result as normal/abnormal . POC Clean Dev (test Yes code = 6672) Performing Lab (test [facility] code = 98729) [facility], [address] [address], [place], [place] [address]; Point of Care L ab Director: Eli anders MD Lab Interpretation Abnormal (test code = 84794-8) [facility] [id number] 17:40:43 Test Item Value Reference Range Interpretation Comments POC Crea (test code = 1.0 mg/dL 0.6-1.3 Medica tions, 66364-6) especially hydr oxyurea or supplements, such as ascorbate, c an interfere with test results causing a falsely and significantly h igher result than exp ected. If a problem is suspected with a patient's resul t, a sample should b e sent to the laborato for confirmatory te sting. Method descript ion: The i-STAT is a n analyzer used f or in vitro quantific ation of various anal ytes in whole blood. e device uses a s yesi disposable cart ridge which contains microfabricated sensors, a jarod bration solution, fluid ics system, and a w aste chamber. Each t est cartridge conta ins chemically sens itive biosensors on a silicon chip th at are configured to p erform specific tests. The microfabricated sensors measure analyte concent ration by an electroch emical assay. POC eGFR-AA (test code 66 See_Comment Myesha l eGFR >= 60 = 52237-4) mL/min/1.73 m2 The eGFR is calcula elena using the CKD-E PI equation. The e GFR declines with a ge. eGFR <60 mL/min /1.73 m2 is considere d as "decreased" Thi s equation should only be used for pat ients 18 and older. According to National Kidney Foundation's Ki dney Disease Outcome Quality Initiat ines (KDOQI) classif ication and 2012 Kidney Disease Improvi ng Global Outcomes (KDIGO) Clinica l Practice Guidel ine, the stage of CK D should be categ orized based on estima elena GFR. Stage Desc ription GFR mL/min/1.73 m21 Kidney damage w ith normal or high GFR >=902 Kidney da mage with mild decre ase in GFR 60-893a Mil d to moderate decrea se in GFR 45-593b Mod erate to severe decre ase in GFR 30-444 Marleny re decrease in GFR 15-295 Kidney failure <15 (or dialysis) [Auto mated message] The sy stem which generated this result transmit elena reference range : >=60 mL/min/1.73 m2. The reference range was not used to int erpret this result as normal/abnormal . POC eGFR-EVELINA (test 57 See_Comment L Normal eG FR >= 60 code = 73922-4) mL/min/1.73 m2 The eGFR is calcula elena using the CKD-E PI equation. The e GFR declines with a ge. eGFR <60 mL/min /1.73 m2 is considere d as "decreased" Thi s equation should only be used for pat ients 18 and older. According to th e National Kidney Foundation's Ki dney Disease Outcome Quality Initiat ines (KDOQI) classif ication and 2011 Kidney Disease Improvi ng Global Outcomes (KDIGO) Clinica l Practice Guidel ine, the stage of CK D should be categ orized based on estima elena GFR. Stage Desc ription GFR mL/min/1.73 m21 Kidney damage w ith normal or high GFR >=902 Kidney da mage with mild decre ase in GFR 60-893a Mil d to moderate decrea se in GFR 45-593b Mod erate to severe decre ase in GFR 30-444 Marleny re decrease in GFR 15-295 Kidney failure <15 (or dialysis) [Auto mated message] The sy stem which generated this result transmit elena reference range : >=60 mL/min/1.73 m2. The reference range was not used to int erpret this result as normal/abnormal . POC Clean Dev (test Yes code = 6672) Performing Lab (test [facility] code = 12087) [facility], [address], [place] [address]; Point of Care L ab Director: Eli anders MD Lab Interpretation Abnormal (test code = 15024-5) [facility] O[facility] [id number] 20:46:40 Test Item Value Reference Interpretation Comments Range POC O2 Saturation, 100.0 % 95.0-99.0 H Arterial (test code = 55610) POC Oxyhemoglobin, 98.8 % 94.0-98.0 H Arterial (test code = 86217) POC Hemoglobin, total 10.5 g/dL 12.0-16.0 L (test code = 05008) POC Carboxyhemoglobin 0.0-1.9 (test code = 55591) POC Methemoglobin 1.8 % 0.0-1.5 H Method ronak cription: (test code = 97968) The ABL8 0 FLEX CO-OX OSM analyzer is a portable, autom ated analyzer that measures oxygen saturation (sO2 ), concentration o f total hemoglobi n (ctHb), fractio n of oxygenated hemo globin in total hemogl obin (FO2Hb), fracti on of methemoglobin i n total hemoglobi n (FMetHb), and fraction of carboxyhemoglob in in total hemoglobi n (FCOHb) co-oxim etry parameters in [employer] blood. The anal yzer uses spectrophotomet ry to perform quantit ative measurement of the parameters list ed from a 65l sa mple. POC OX Draw Site (test Aorta code = 34005) Performing Lab (test [facility] Main Main Ca mpus code = 30871) [facility] Cli nical Lab, [address] [place], [place] [address]dafne Rawls, [place] [address]; Music Grapher: Tanya Navarro MD Lab Interpretation Abnormal (test code = 80529-4) [facility]iPO Oximetry [id number] 20:46:40 Test Item Value Reference Interpretation Comments Range POC O2 Saturation, 100.0 % 95.0-99.0 H Arterial (test code = 53599) POC Oxyhemoglobin, 98.8 % 94.0-98.0 H Arterial (test code = 45781) POC Hemoglobin, total 10.5 g/dL 12.0-16.0 L (test code = 66148) POC Carboxyhemoglobin 0.0-1.9 (test code = 01887) POC Methemoglobin 1.8 % 0.0-1.5 H Method ronak cription: (test code = 91780) The ABL8 0 FLEX CO-OX OSM analyzer is a portable, autom ated analyzer that measures oxygen saturation (sO2 ), concentration o f total hemoglobi n (ctHb), fractio n of oxygenated hemo globin in total hemogl obin (FO2Hb), fracti on of methemoglobin i n total hemoglobi n (FMetHb), and fraction of carboxyhemoglob in in total hemoglobi n (FCOHb) co-oxim etry parameters in [employer] blood. The anal yzer uses spectrophotomet ry to perform quantit ative measurement of the parameters list ed from a 65l sa mple. POC OX Draw Site (test Aorta code = 87769) Performing Lab (test MDA Main Main Ca mpus code = 00828) [facility] Cli nical Lab, [address], [place] [address]; Music Grapher: Tanya Navarro MD Lab Interpretation Abnormal (test code = 86987-9) [facility] Interpretation Antibody Screen [id number] 17:46:53 Test Item Value Reference Range Interpretation Comments TMP Auto Neg At the present ABSC Interp time, patient (test code = plasma shows no ____MAYRIN C ORREA 7535) evidence of RBC MD NEWMAN P hD - alloantibodies. [id number] d by: Mookie HERNÁNDEZ, PhD - [id number] D ate/Time: 11.28.2021 11:4 6 AM TEST HOLE DRILLER Transcribed Eduar e/Time: 11.28.2021 11:4 6 AM CSTElectronical ly Signed By: JESSI NEWMAN MD, PhD - [id number] on 11.28.2021 1 1:46 AM [facility] Interpretation Antibody Screen [id number] 17:46:53 Test Item Value Reference Range Interpretation Comments TMP Auto Neg At the present ABSC Interp time, patient (test code = plasma shows no ____MAYRIN C ORREA 7535) evidence of RBC MD PATY, P hD - alloantibodies. [id number] d by: Mookie HERNÁNDEZ, PhD - [id number] D ate/Time: 11.28.2021 11:4 6 AM TEST HOLE DRILLER Transcribed Eduar e/Time: 11.28.2021 11:4 6 AM CSTElectronical ly Signed By: JESSI NEWMAN MD, PhD - [id number] on 11.28.2021 1 1:46 AM [facility] 16:52:30 Test Item Value Reference Range Interpretation Comments ABORh. (test code = 882-1) O POS [facility] 16:52:30 Test Item Value Reference Range Interpretation Comments ABORh. (test code = 882-1) O POS [facility] Hospital[facility] Expiration [id number] 16:52:26 Test Item Value Reference Range Interpretation Comments T & S Expiration (test code = 12/01/202118) [facility] Expiration [id number] 16:52:26 Test Item Value Reference Range Interpretation Comments T & S Expiration (test code = 12/01/20215317) [facility] [id number] 16:51:56 Test Item Value Reference Range Interpretation Comments ABSC. (test code = 890-4) Negative ABSC [facility] [id number] 16:51:56 Test Item Value Reference Range Interpretation Comments ABSC. (test code = 890-4) Negative ABSC [facility] Oximetry [id number] 15:45:17 Test Item Value Reference Interpretation Comments Range POC O2 65.0 % Saturation,Venous (test code = 62615) POC Oxyhemoglobin, 63.5 % Venous (test code = 12631) POC Hemoglobin, total 10.6 g/dL 12.0-16.0 L (test code = 57100) POC Carboxyhemoglobin 0.5 % 0.0-1.9 (test code = 97061) POC Methemoglobin 1.9 % 0.0-1.5 H Method ronak cription: (test code = 49443) The ABL8 0 FLEX CO-OX OSM analyzer is a portable, autom ated analyzer that measures oxygen saturation (sO2 ), concentration o f total hemoglobi n (ctHb), fractio n of oxygenated hemo globin in total hemogl obin (FO2Hb), fracti on of methemoglobin i n total hemoglobi n (FMetHb), and fraction of carboxyhemoglob in in total hemoglobi n (FCOHb) co-oxim etry parameters in [employer] blood. The anal yzer uses spectrophotomet ry to perform quantit ative measurement of the parameters list ed from a 65l sa mple. POC OX Draw Site (test R atrium code = 90169) Performing Lab (test [facility] mpus code = 10877) [facility] nical Lab, [address] [place] [address]; Music Grapher: Tanya Navarro MD Lab Interpretation Abnormal (test code = 22994-5) [facility] Oximetry [id number] 15:45:17 Test Item Value Reference Interpretation Comments Range POC O2 65.0 % Saturation,Venous (test code = 49624) POC Oxyhemoglobin, 63.5 % Venous (test code = 21760) POC Hemoglobin, total 10.6 g/dL 12.0-16.0 L (test code = 67854) POC Carboxyhemoglobin 0.5 % 0.0-1.9 (test code = 90343) POC Methemoglobin 1.9 % 0.0-1.5 H Method ronak cription: (test code = 32353) The ABL8 0 FLEX CO-OX OSM analyzer is a portable, autom ated analyzer that measures oxygen saturation (sO2 ), concentration o f total hemoglobi n (ctHb), fractio n of oxygenated hemo globin in total hemogl obin (FO2Hb), fracti on of methemoglobin i n total hemoglobi n (FMetHb), and fraction of carboxyhemoglob in in total hemoglobi n (FCOHb) co-oxim etry parameters in [employer] blood. The anal yzer uses spectrophotomet ry to perform quantit ative measurement of the parameters list ed from a 65l sa mple. POC OX Draw Site (test R atrium code = 14730) Performing Lab (test [facility] mpus code = 75415) [facility], [address] [place] [address]; Music Grapher: Tanya Navarro MD Lab Interpretation Abnormal (test code = 19806-6) [facility] Glucose [id number] 14:58:52 Test Item Value Reference Interpretation Comments Range POC Glucose (test 102 mg/dL 70-99 H RN Notifie dCapillary code = 63719-1) blood sample s, e.g. obtained by fingerstick, [...] Capillary code = 9554) Performing Lab (test [facility] code = 18534) [facility] MD Jazmin ackerman Clinical Lab, [address] [place] [address]; Music Grapher: Tanya Navarro MD Lab Interpretation Abnormal (test code = 83698-5) [facility] Glucose [id number] 14:58:52 Test Item Value Reference Interpretation Comments Range POC Glucose (test 102 mg/dL 70-99 H RN Notifie dCapillary code = 10606-2) blood sample s, e.g. obtained by fingerstick, [...] Capillary code = 9554) Performing Lab (test [facility] code = 28552) [facility] MD Jazmin ackerman Clinical Lab, [address] [place] [address]; Music Grapher: Tanya Navarro MD Lab Interpretation Abnormal (test code = 86452-7) [facility] (SARS-CoV-2) PCR- Asymptomatic [id number] 04:33:25 Test Item Value Reference Range Interpretation Comments COVID19 (SARS Not Detected Not Detected CoV-2) Result (test [place] = ____[place] [address]-5) qualitative reverse-transcr iptase polymerase sukhdeep n reaction [...] patients provid ed by the manufacture r ([employer]) c an be reviewed at:https://www. fda.go v/media/010511/ veda ad. A fact shee t for Health Care pro viders is provided by the orchid hand ([employer]) and can be reviewed at: https://www.fda .gov/m edia/742141/alba nload Results must be interpreted wit hin [...] verified by the Microbiology Laboratory at [facility], CLIA Accreditation # : [id number] and CAP Accreditation # : [id number]. COVID19 SARS AUTOMOTIVE REFINISH TECHNICIAN Swab Source (test code = 55282) COVID19 SARS Pre-OR Procedure Indication (test code = 95180) [facility] (SARS-CoV-2) PCR- Asymptomatic [id number] 04:33:25 Test Item Value Reference Range Interpretation Comments COVID19 (SARS Not Detected Not Detected CoV-2) Result (test code = ____[place] a 83093-4) qualitative reverse-transcr iptase polymerase sukhdeep n reaction [...] patients provid ed by the manufacture r ([employer]) c an be reviewed at:https://www. fda.go v/media/812734/ downlo ad. A fact shee t for Health Care pro viders is provided by the orchid hand ([employer]) and can be reviewed at: https://www.fda .gov/m edia/567926/alba nload Results must be interpreted wit hin [...] verified by the Microbiology Laboratory at [facility], CLIA Accreditation # : [id number] and CAP Accreditation # : [id number]. COVID19 SARS AUTOMOTIVE REFINISH TECHNICIAN Swab Source (test code = 90730) COVID19 SARS Pre-OR Procedure Indication (test code = 71162) [facility]SH[facility] 20:51:59 Test Item Value Reference Range Interpretation Comments TSH (test code = 2.77 See_Comment [Automated message] The 45122-2) system which ge nerated this result transmit elena reference range : 0.27 - 4.20 mcunit/mL. The reference range was not used to interpr et this result as myesha l/abnormal. [facility] 20:51:59 Test Item Value Reference Range Interpretation Comments TSH (test code = 2.77 See_Comment [Automated message] The 84686-6) system which ge nerated this result transmit elena reference range : 0.27 - 4.20 mcunit/mL. The reference range was not used to interpr et this result as myesha l/abnormal. [facility] [id number] 20:51:58 Test Item Value Reference Range Interpretation Comments T4 Free (test code = 3024-7) 1.57 ng/dL 0.93-1.70 [facility] [id number] 20:51:58 Test Item Value Reference Range Interpretation Comments T4 Free (test code = 3024-7) 1.57 ng/dL 0.93-1.70 [facility] Add-On Test 2021-11-18 20:06:39 Test Item Value Reference Range Interpretation Comments Ordered (test code = 6568) Test Added Test Needed (test code = 7604) TSH, Free T4 [facility]-On Test 2021-11-18 20:06:39 Test Item Value Reference Range Interpretation Comments Ordered (test code = 6568) Test Added Test Needed (test code = 7604) TSH, Free T4 [facility] HospitalUrinalysis with Microscopic 2021-11-18 18:41:22 Test Item Value Reference Interpretation Comments Range UA WBC (test code = 3 See_Comment H [Automa elena 92986-8) message] The system which generated this result transmitted reference range : 0 - 2 /HPF. The reference range was not used to interpret this result as normal/abnormal . UA RBC (test code = See_Comment [Automa elena 11587-9) message] The system which generated this result transmitted reference range : 0 - 2 /HPF. The reference range was not used to interpret this result as normal/abnormal . UA Mucous (test code NOT SEEN Not Seen-Trace = 53293-5) /HPF UA Bacteria (test NOT SEEN NOT SEEN /HPF code = 80705-1) UA Squam Epi (test OCC None-Occasiona code = 84690-1) l /HPF UA Trans Epi (test OCC NOT SEEN /HPF A code = 96551-5) CHRISTOPHER (test code = Some reporting CHRISTOPHER) parameters within the Urinalysis test have changed due to the implementation of new instrumentation in the Main [facility], allowing greater sensitivity of measurement. Urinalysis results reported by the [facility] using existing instrumentation, as well as Urinalysis testing performed manually or by backup methodology at the [facility] will remain relatively unchanged. New reporting parameters and units will now be reported for all [facility]. Lab Interpretation Abnormal (test code = 47180-3) [facility] Hospital[facility] with Microscopic 2021-11-18 18:41:22 Test Item Value Reference Interpretation Comments Range UA WBC (test code = 3 See_Comment H [Automa elena 92248-6) message] The system which generated this result transmitted reference range : 0 - 2 /HPF. The reference range was not used to interpret this result as normal/abnormal . UA RBC (test code = See_Comment [Automa elena 71744-2) message] The system which generated this result transmitted reference range : 0 - 2 /HPF. The reference range was not used to interpret this result as normal/abnormal . UA Mucous (test code NOT SEEN Not Seen-Trace = 26991-9) /HPF UA Bacteria (test NOT SEEN NOT SEEN /HPF code = 24363-2) UA Squam Epi (test OCC None-Occasiona code = 55901-7) l /HPF UA Trans Epi (test OCC NOT SEEN /HPF A code = 65703-7) CHRISTOPHER (test code = Some reporting CHRISTOPHER) parameters within the Urinalysis test have changed due to the implementation of new instrumentation in the [facility], allowing greater sensitivity of measurement. Urinalysis results reported by the [facility] using existing instrumentation, as well as Urinalysis testing performed manually or by backup methodology at the [facility] will remain relatively unchanged. New reporting parameters and units will now be reported for all [facility]. Lab Interpretation Abnormal (test code = 91776-8) [facility] [facility]01 Test Item Value Reference Range Interpretation Comments aPTT (test 35.9 See_Comment [Automated mes alexis] code = [place] [address]-7) generated this result transmitted ref erence range: 24.7 - 3 6.8 second(s). The reference range was not used to int erpret this result as normal/abnormal . CHRISTOPHER (test code This lab cannot be = CHRISTOPHER) scheduled at the following locations due to collection/proccess ing restrictions: [facility] and [facility]. [facility]01 Test Item Value Reference Range Interpretation Comments aPTT (test 35.9 See_Comment [Automated mes alexis] code = The system [facility] [place] 10914-0) generated this result transmitted ref erence range: 24.7 - 3 6.8 second(s). The reference range was not used to int erpret this result as normal/abnormal . CHRISTOPHER (test code This lab cannot be = CHRISTOPHER) scheduled at the following locations due to collection/proccess ing restrictions: [facility] and [facility]. [facility] HospitalProthrombin Time with [id number] 18:18:00 Test Item Value Reference Range Interpretation [...] following locations due to collection/procc essing restrictions: [facility] and [facility]. Lab Interpretation Abnormal (test code = 35127-1) [facility] with [id number] 18:18:00 Test Item Value Reference Range Interpretation [...] following locations due to collection/procc essing restrictions: [facility]. Lab Interpretation Abnormal (test code = 72042-3) [facility] HospitalHemoglobin [id number] 18:14:44 Test Item Value Reference Range Interpretation Comments A1C (test code = 5.6 % 4.3-5.6 HbA1c value s >=6.5% are 4548-4) diagnostic of d iabetes mellitus.Diagno sis should be confirmed by repeat testing.Therape utic Action suggested: >8.0 % HbA1c; Goal oftherapy: <7.0% HbA1c [facility] Hospital[facility] [id number] 18:14:44 Test Item Value Reference Range Interpretation Comments A1C (test code = 5.6 % 4.3-5.6 HbA1c value s >=6.5% are 4548-4) diagnostic of d iabetes mellitus.Diagno sis should be confirmed by repeat testing.Therape utic Action suggested: >8.0 % HbA1c; Goal oftherapy: <7.0% HbA1c [facility] HospitalUrinalysis w/Microscopic if [id number] 18:07:36 Test Item Value Reference Range Interpretation Comments UA Color (test code = 82720-3) Yellow Straw-Yellow UA Appear (test code = [...] A Lab Interpretation (test code = Abnormal 16721-4) [facility] Hospital[facility]inal[facility]/Microscopic if [id number] 18:07:36 Test Item Value Reference Range Interpretation Comments UA Color (test code = 05719-3) Yellow Straw-Yellow UA Appear (test code = [...] A Lab Interpretation (test code = Abnormal 49975-1) [facility] Breast Complete - Bilateral 2021-11-04 19:45:45 Test Item Value Reference Range Interpretation Comments Radiology Study observation (narrative) (test code = 71276-9) IMP (test code = No mammographic evidence [...] Evaluation Lab Interpretation Abnormal (test code = 09684-7) [facility] Chest for Breast Ultrasound (Add-on Only)2021-11-04 19:45:45 Test Item Value Reference Range Interpretation Comments Radiology Study observation (narrative) (test code = 29124-2) IMP (test code = No mammographic evidence [...] Evaluation Lab Interpretation Abnormal (test code = 15616-7) [facility] HospitalCytology Image-Guided FNA [id number] 00:43:00 Test Item Value Reference Range Interpretation Comments Gross Description (test x1gcjYIwYAExcKLMWHeb code = 8042722505) QPegdvDqQXDsxMNdE5Rf uifrMEhwDI3pVV3vuZvt rRLcnSSxZS4LHJKrSwJt XHBhcGVydzEyMjQwXHBh lLUzwFX1DDEsDW6cugss IItqECemVFHzikR0TKSe aTMuL2IeRZUyTR6netqi HJM3SRumzD1qlzKSHwhb Js1gvMNbiOfxWeEkVsSc YXJzZXQwXGZuaWwgQXJp GQi2oL2AWdjlX96io9I2 Nkp1LTUbQPSiY4XnRB9p BJYqjLGsA25NXzxtNLW9 XRFFOldjVJHeWR7Vi5uo XUBusOFpMPF6ACdiqBMs GUWjNUYuGFl6YIYeFHya uLKrPD5znTtjVqdjpJvf r2FvgREtAUplJOBiUAZw FCnuRZVyWS0RMeWwLQZc QFSeSVIeBRv7PZs2WZ2O ZzXhCTHrONTzAjl5AQBk PNw3XMdrIX2VZOb0CrX8 XAO4VHK9YQJ4QEZtGYJm MiBcXGYgQXJpYWwgXFxm cyAxMCBcXGZiIFxcZmwg RHcaS27xyPkjwO1hTbdi bhTrKPM2HQZoczJZTtyx bGFpblxlcGljTmVzdERv YzEgDQpcbHRycGFyXGxp bjBccmluMCANClxsdHJj aFxjZjFcZnMyMCBTcGVj aZ3lttNcxNZpJ0BpDWN8 XHBhciANCjMgRGlmZiBR dWlrOyAzIFBhcCBTdGFp vfIMnUxuWOBdhVHmAB5C HCMdrBxvRQjsps18XVR1 z9ewcGUoNQtqXdffcXGc kvB7LUdMHXIFIRlFDyQe QC4pJTrWL6RQVNiSBwxu XDT8HBhxlVH0r2utsYRh s7m6WHaaNQT6fFTjoHwg yDi4EEIyp3VwxKRrjTTc rPOieDN0KKAoXIpjv1tw VHWxFIaba0ReYCyHHMXS WU1UCA9paZD8K8pSTMRB I2cMmNC3e0qslDQme3j4 KIlfGGF0tTSqm61scRzk RzikaDM4UEvtDygvkB3y dCBIWVBFUkxJTksgbmFt XI1EQYiUTP2DlLJ8b5ar gTHzg4a0WFsbUGO0iRcv cIWiqtaazGJjrOynzx17 QUU3TCKlKWxgohCsSUWz iTAbSRulXrtrrYV7GLbp XhlflH9okROIOMGTKtxZ MlayxvFnEL3DNJBOPY6G tNC2BwQhkTC4VG14UYFy CVTscZZoSOayQ669RDIw KUyqAGl9fzYtYUCbDVdj ciFoLDYxhaVEHG8PBZGg ciANClxjZjAgMSBDZWxs MZXrm6LzAAGcvwOCQrAg dGUvVGltZSBQbGFjZWQg bB5mDz0fwTHjbR05ISlk xh73ZXW6j8xvhUPvUUmq OhnusXMjjfS6VUhZUBFH WEzCLlLhVD1dQTzPAmhW UGuYOjg7WRF1YsuhaMWJ YECUCNXYJXvknCm3GYo9 fXtcZmxkcnNsdCBcJzFD pJ1kAa0nFT8lHlcwCcls qTV7XOmfKaihcC2geMZF OGRXKxiWMtrftmHmDD1C WR7BJQ9ZaKLeORoucPR9 HU1PVGcJRSGKcKM8wJcq cJl4l2pdjWTmj3l6RVow UCW6rWtayOMacbtpjUEz aFxmczIwICBccHJvdGVj jHfdBeyiwTQ0XBzgNadg dL0prGPAOZRSZnkNWahv ozYeRN0BJF1BYsAMNR23 ASQ8EIrRG6v3DDg9cUN4 oJ94IXCrIPLmyKHgVQti V001QWeaINAUYGawYkzy hQD6SWewIddhvT7nxGKL NIRMDmzBRovqkrKaPI2F BZ1TZF5EoUxupRL6Ei8S kYX2sYpkbFb0n8rrwOEa y0h5BAbyBJC3lImmtEEe blxsdHJjaFxjZjFcZnMy VFriFRGqZXptmTLpPX1G Z4m1XBhgEM8dZAMrBREw tnEBJsonkVZtvIG1ZLDz m5Wfp8TpBH22FGUwvsQu zIHioJ8lxlZoFTFqdHHs rNU1XWNukDPcEJHphKBm xXNrmPvoJwdtwDC2NSep ToormD7dbLRVJCAWMsmI VqfxrhOtYV5LJXNEOhUR FQ17MfT9QmZ0HAb2yDof JabmkwQhfCIpBsUHfL65 SWbeAaysbJN0FRauYigc dQ2nhMBPTQUKBxkYScku ovLqXK9RFQBNGP4XdYA0 YbK0kFJ3OK81UXJlTXSu nTMlGHwaP690OJXbUVij QHv8wrOoLPJeDIkzsmEj BSEqjHZJsb5eU0TcUDEm GPcuchUXVRIEIQgQM9Cr RLQYVNPZXGGcQsZOHS6t NsD2GiL4MX05GxalUmS1 ZvX3jLJ5XXCSZDDHGCrP K2OhGFCMRNHOWKUjTI7V QJlYZEPJJZRWV87VNMEF KCMMO3PQL7eSTRDln6Ic k42leZoMKMJSDKXLM18X DVCEFKEAL8FSUXEMQDOX SVnENOCKRv2PIZCOZLBH XY2LFPrIPpKyTDpctVBe AUikZGL7YAa9LIf9yNLm u7MioZU8MfM2NvQmgBGO GOVBZAlSNWOWGs4XVAMG MPBNDZ3PEyTjX0IUBO1I Pg0TYJWHMUMQSY9DTRdL LcPvR6RWUR0KZr4ZOHGO WOJMOD1FXnVxBXFHU9FC AiNZS8eiWSPXXCYAWSJt TyLRZJ5bBFNHEP0OHZBY AYEBI39QCTIWXSTVB4RB ZI5SQUDsaKRGLZP2GU5b JVq9HDmpILQaG6EpB2Ns psXxoKWtEVUnbeJic2fu IYZ9LCLwaNTgbYHvVzXs ZnmtMSG6DAVcUBibAD8Z DLGkTZX3DHvtkD81sKZc VP9AORSyVFvqINDvFHFj ayP0TSNrhOGfWCZ1RL0c eVupxJTlalghyuN8LG6C fQ== Immediate Assessment Adequate (test code = 9837) cellularity, favor malignant Major Classification MALIGNANT A (test code = 9839) Diagnosis (test code = l6iiuVFsXLCjwJB7KxNy 34) MPKrj9nai0EbhFQceXDv IAlmlIGhkpTwro80fAF5 aN38DJ8pGLYcCiP4BQVb qhY7Wmv7NVFdQFTlsFIq A790s2vxp0spdsUpfLG7 ILOoTYQlR1WpQL8hTUAj dYQkF28inVWcTZJ4TNIf ATAwzAUpIJRwNMD6JBPt sKCrR7wdHEMmON9ndidq LFjrYFdtVSMusGW7EUVd zXQwP1RjBTSpQNvhKHIh ppc3QlTnIr4dhZDujZdk WJggR4wdfA7dJuB8NKva L7jhxW3xPXw2EKfyWEQy fRI2idQ4TCMeuWUpB0Xa oT0dOLAdHO9vqov7f1jo NTN6RSqpZABdUcJ6goU0 NDBccGFyZFxwbGFpblxm sbCtJSHuTETPWeUKp7C1 AHUto4L8DEvjrOImuEBh AKi3yGLbDEPgicIipbKj JXmzJBBfpXwrSNXdo357 BSLlonc6HPPhuLLlTBkb HkVuQSyOE8avU6JUUDAc M6ZKK9bRV39GNXGXRwXK W3WTTqGwX5rQYTESCGAK ST5IE3YiLTdWOY4QPPHW XjIWXCoOWJXIEH4fRPKS MWPGCJIvu9AsQKOfpZ4y bnQpXHBhcn0= Comment (test code = w5mjaPZcJZPemYZ4LrVv 9835) HQDkm2pyk1ZjyUJefUQw TGvznFQxcwLona85jSJ7 sA94SI1zQOYoIdW5YETz zsN9Ehd7XZDuVHGdsZOj O747c5vhf2mfwsBntNK1 cMbgMZOuqxkuKaG1WJfh THQxceuoOKo1NNciBYDt tBH3BTLibGOdS2FaEWFa CL4limq6OEA1GZdgHQId EeU8GCEjoUWiPUVriKoi QJcgs247KJP1LfJoRIMj zlCsxMdeuT1bDxZqBKOJ dF97kw2qcWKnceNhnSDc Vs3xtWHgGT1vMYDyXHPv KKtdLKIur8GfXKOhG0Vi y16dKFXfr1wxvXfqkTV9 sDGdmNMgp2PwP8EqwCHk HXPpVHSmg0r0hHTzMELh ppMCXNegTCniH3VbAQDs Ts0qYIuaFDXlWERzVDRv FlL0w5RwGCYaYMMQNiRg LgZqOV8gPDL3cP4rLXPb xJupksMbhWSfOZ5tRKkg x2GxDuveRBvmP7DjFNYo TSaoYLdzTJQtgftwz0k0 hNN4xHIpiUV3tTHrnYwg RNzja6zpIMfoq8Bvfwgd e6Mkc6Zru1KmSOXueqEr bk4kRG9lsNVcZQSpIDUe UUegISUqw4EjBOBpTZBi miG5nY8bBDsvhbTlm384 cnsfuLGuuljrfQ52OJTq jkF4hEWpHYRnnsZeWCyo P78lp7pgYsXwqIDmBEJr J12rL4HpeiAaiIYoi1Cr LA4pBLKbBCEdiM5fi8ty QOHvAr3tGIYfPTJovjZp wSIxYBL0UGhjEDWfEP5f cGFyfQ== Retained/Biomarker x0gedVZpQIHelFU9SuGi Testing (test code = IKLst6avg8WtaFSvpIIf 9825) DVbqjYZtwkQrdf36bKO5 pX34SN2qUBOxTvO7XUHn prS9Brn1WQVuGBYfcGEg S411p0wcc2bsfwVptNT4 wHtcZXBsinkbOcW2VEoj YYRrkpmjUWg0QJtpOYBe eGT3YCDyfXPpV4MrGGPr OL6hlkw3WTV2FYemRODo PwJ3SEKslNZpJHTzpXet SYwlk876RIC3CqDbNCYo pzQsbHaxnK0fQlPwRPNF Jgk8UpneVcCXIFJ1DHNz iXIcCA7CVXGVAhg6PT4c MUBnbMJoZA7PSRJFUNK0 S4UruCUfHB9CXRWMFVhl Y8vuYVWhBCJPDQUMT2q9 MVNccGFyfQ== Informational Points g9ofiJOmZNVebFIsVmNs (test code = 9836) NVQjXDWds5fxYZGnfYFm ZzEwMzNcZnRuYmpcdWMx BREqBzTtr6gtt801qTNa g1nkOWGmJkJ7bWGhJLIo dCWqL820KTFlCKuhm6cy m8AgLILmyMFdn7J8RKHY UWtcJBYZNPk5g1trGsBm RhO2gOBiWFiaH3esifVv cHEcFPRxKTo2oZ71GKNa zS6znQMqWYhrlbMeTpB2 GYnlYFIrCdL4AQValSIn NDXwG6otBSSrEIvvHZHf TEskkKRvLLA7lBnzq0G1 bGVzaGVldHtcZjBcZnMy EzLZj6LxMGw1tXuiL8Kj XAPtFpF5tKAyUFWhJJep YUNiVKQgmcP6dO72DZfu jeY6kZRay0Yto95mc889 kP1wyPLeAEF4MAWvULDb iWOvVVTgGLP6IFIffKOi U2ptWOBcYO2xoekvXLsi SKvvWWSzhNN8VONozQDm P5RuTKLdUFjpVPXwhqd7 BaVqFm4tlQJzdVonQTxq v4psy0olbLAuIyo0UWLu EqOvYtjzTKqkv9Pet7ec USMghg2sXDF8gHObcGsb k2N3fDJhOWZpmNHnjoHt BISryo87wAYizDVhyTUp ba1asdZdvQAyqNOfCWV2 cHNocnRuXGZldDRcYWVu RBUtO9oiPjKurbBeR5az Y2JsEWFeYGSfHEBaDuTi idIuc7Ogr5EyjXQzvQo6 j9wpKKBkCIIqlDkdp6zz DAX3XQHyE4Y1dADgt3jr TIljLCUczGG1ryH9CSDt fYTeQ7DqdZ5mVIRaQC1f cmn2h6jzQPD6TQzqXKFx MjR5ggV0IPMkjZMpVCLw yXmgPIvbg563PIB2RzEx RJIhp1AlZ5TbeBcmE51a zSvpX29bPJWpdLkhjO3s jDtqxV2rLuMjZtApZZum bFxwbGFpblxmMVxmczE4 DXydchcqMJTmANuzF9ib NpVfPJJhdYsaVUfln3Eq LYBlNHRzPMuicSBVc65s TIKqj1LnFJLieE5cqAEl PErzguDyjSD4IFviwrLw KyHevoXzSISajI5pKFHs XW5mHAPkvtFiki7yppXs DMPvUWWpO9FnbariqTla qcJbRSBfrs0xrkUpYZY3 RLQSKC7LBEAtXIMpe94l DXGqaAfphL2ukOFdtbJm XJXqd8LtjV0sgRGLURPz R8zxML8vXTfls3AkiSSh kXErtPM0GEZfe9VpJtCu rbMfeALuyRZoB6BdtMew O0miEWPnXVEzzzUfrYAm c4GcRGFewIB8bYZwSE8A FrQBu97xYSXzDQJMyiTn IBAugNcguQZ1qyO7oS2h JqPFkWwxHVGfj4Qhx8Ek S5mnLZTnGPCmgRAjsZct nF2pDcBfXeYvPXkhBT4t XWLwG9ysyYIbATOhUHHi V9usEuRsuL5tdCrwIYxq ZjJcZnMxOFxsdHJjaFxp ZLifm8FxEV73b9MnrpVI cCUyxPS5nA9ny5z5DNnx Hq9vHDQrwhgguVbigW5r BrHiEkUlLRbrSR7jVYKw P9cwlMYzRZDiXATbY5yl OiMvdC1ioMprFLgpNaXy ZnMxOFxpICwgXHBsYWlu XGYxXGZzMThcbGFuZzEw MzNcaGljaFxmMVxkYmNo FQZcOJwzO5cqJyEqU4La EGZdMNnddFYlK9wscVPz VurgPJCTNSE1EZKgTUB5 XNjoQSmvwOO8x32lQSQi hJVrRJz1RWk1FRUqKFzy XGYxXGZzMThcbGFuZzEw MzNcaGljaFxmMVxkYmNo WDPlTLeeY9ouQlNwA8Tu XGZzMThcaSAuXHBsYWlu XGYyXGZzMjJcbGFuZzEw MzNcaGljaFxmMlxkYmNo NNCjNNlgU8rsIcAjZkBe MlxwYXJ9 Lab Interpretation (test Abnormal code = 54188-3) [facility] Biopsy Interpretation 2021-10-28 00:21:10 Test Item Value Reference Range Interpretation Comments Submitted Clinical History p2fphQBuZOTev5avVAX (test code = 13888) mbGFuZzEwMzNcZnRuYm pcdWMxIHtccnRmMVxzc 4OwG0CvMbAeNSzpzfFg XGRlZmxhbmcxMDMzXGZ 0bmJqXHVjMVxkZWZmMH yiHo6ehOOhdDkmAoRnB STgj3qhtwKAncqyvDu0 l3bmISQgNjM4mLNePEk bC6kkckLqmZNmNNTvEH k1aW82WKYvrK5kzMRgV LtaaaHiOwD1JXmfKIQk AqR0YFHzwLXwYSEmH1n yZWQwXGdyZWVuMFxibH FdNOV8zOjtr2N8lKVln GVldHtcZjBcZnMyMiBO g8RgSHq9wAxoB5ZfXRI fAyN3bTHwEGJgSWbaEA KwZFEtzmA7rZ34NZubk oJ0tTBno7Fam87pi306 dH9ujRGeYRX7QCHhLAQ ecSFiWVJaNHE6XNWfbG PtR6qhGTJgSP7qrdwbN HlcYRoaEQVkmFR1YCFn cDOaX2NnDASvBUziZPP dehg7IeHkCe6twKWjzZ kaPVlng7xcb4hjsOMcI ox8CMVkItXaZoadHXxf s9Pzr9iiENSthj8hOYD 3pHVbaPozh8C7qOQyFQ PdhATzrtEtIDHdNtC9N PdeCC2qle57HKEsNJM6 sq9tyWVzsWllbrXskUE iFAaiH5QoIFCag890WT MtI7YhOCHqc3G5ikLkR lYdGOFnrCT4odW6ODAo MFi7sQUiivN5qoZxyQJ qJ4xdnB1oHIPkDK5ogc zoz9wzJTcwPQakDARdj TR5ktB7ASYryCYmX5Pb zG1mVTGiKNjiKRBudeo 9DwHfBj2soLGdaDwtNQ xzYmtwYWdlXHBnbmNvb nRccGduZGVjXHBsYWlu XHBsYWluXGYwXGZzMjR jxGmamZzxgA0dRwQfGy JkBNmvUJ5tXBTrJ0lfp EPxLYQpXSZaS3mcMrKf hM2qlRbmLEsihwAnTR5 uo2QgLZRrXXPeTLgnQ3 3npjLag0JmUU7qq81hl YVouJ3cW6Q4JN4wZAsf VYTeYNP8HIF5DCAmVuA uGS9hLPCtzW9ctDquHC Tmilj7p03ibE7kX9C1M X00WHfzaINdncdoIWug czIyXGxhbmcxMDMzXGh fE8tkDiPpXGDzqPouEU zoh0EkOMHtNSJpYiPnx GFyfX0= Diagnosis (test code = 34) n9lzoORiROYzjAL3NwM pWNNoy1amb9VjiXJudU YtFBdxvELxpjLvtu95l BL1bD10PY2vMRFsYcN2 SGVksiS2Wcd4ZDIlVQJ agLVfL498g0qhc1crmd TppGL3QXOrHWNiN4IsU B6ePSKwcSCyS67smMXu SQX3EHYaTOQioRPdWXB lMMH9DJEsyOClE1xaLC ZeSH1ywckjEThbVWwjQ WZhaXQ5IDInpJNxI8Tv DFCjEDrySPSbgcw5UfN uYx2yeIPlxInpUVhdPL JkXHBsYWluXGZzMjBcY 8TmSSV5ZOnnXkHvvQSu hexvMRZuRzTpxGznv8S tCD1aTFLhAFIwbK9ku6 q0SNTrtteunItyUCjgm O29ApRxW9MkCZXTL7bX SVZFIEZPUiBDQVJDSU5 NANApUHRDRdEPQ6QUTi MlQ9wKBPTGPJBIB0OSK H7IHYPIJJXJNtEyK8MH M3JBPIDXCuXTBs0ABX5 eTLXHSQEJI94TEJ7LOQ xwYXJccGFyZFxwYXIgQ tWRE0ENWQrxDVX4 Comment (test code = 9835) g2myaYRtVUGhhNC8EiS tPJYkg9iwk5CasWUybN OdOLrkzSJzkqXyhr07j RG7zL56LR6wYPNrUnK4 NWLnccC4Bac6BJNyWBM boBDwW324r0pgi0bpzd ZivQE0yZalSUSgqxmyF rS0MUcxBYLhynpbYUe8 PDieSARpfID8PIRoyTG gV0SlLBYrSH8wahp5ZT X3OZbiLNVdUiU2DOPki JMwNZFfnDfqKSobv259 WDS2CdNjGNTeixGnfOo wzA3fSmBrWVQDnE53gu 6yxXI6e3TjCV9oM6VrT RA1MQjxznMagbIihXFi Pl8nnBXmZECuQEErsT0 4ZPGbMSVnMH8wpNIueF ljIGNlbGxzIHRvIGJlI JPly2q4iRZsTRYljdHp rVLeu6VcSQVbliD6CFa wYXRjaHkpLCBQQVgtOC usrJT6QGnlwORfssmqC QEbRlX9t0TyKZKeECVw CFVqSVSgCH04PE65RDC pGChrxpWiw2cmjqsqCG QWNLf4RNOyBB5vHRMzY KXfNDysSZ6kZMCYFZj9 ISAmBD5lEZRxUOGaTAB mDDH6dy5nAuitESBkIJ XlhJT9r6wvR7nxTBTcN TYszY29zh9ikEH4c2Ye WM7mS8HbIKTiegScsae zIGFyZSBpbiBrZWVwaW 5nIHdpdGggdGhlIGFib 4ZqHCEqALbqi8Qrvm1m XHBhcn0= Gross Description (test r2gaaCKvUCEboDURWEa code = [id number]) wMFxhbnNpXHNwbHRwZ3 WwqcmgGAnrRX9rGV0gf QdfqIQnhKAgPT4DHBFz ZmYxXHBhcGVydzEyMjQ iIGHgdCFinNE2FSJsWX 1hcmdsMTgwMFxtYXJnc bR9WVOnjWJjG5ImMVGl QZ6rlrxeCBS2FHcabQ6 ewjKZAiehQs1qaVGyoR tcZjFcZmNoYXJzZXQwX FHypSytAJHfSHy5zS0T MvpwW18fs9I9Rkd6HKN yDCNaS4JgZU9jTMDrwA ZbW41FMuxhBPS2DRVFY koiTKUaHZ9Tp2piLLDj fTQdMET9QIsxxOVkUKO kFJSzJNs5TQSoTTiplU YzZJ6rfGmlCgkivAxep 2VjdCBcXGlkIDUxMDAy DVfeFATjAE5UKuGtCBY oVGSoDFMuZPs2TYn5AG 2KLyYtDODjHBCrCte2B bWfXMs3IZduDZ6IBHv3 YnV1FdDoHCZ2JTB6FYV cXHQgMiBcXGYgQXJpYW wgXFxmcyAxMCBcXGZiI FqnDwxgBPvgF31boObh sE8sByvmemFzXFT3VAV hciANClxwbGFpblxlcG ljTmVzdERvYzEgDQpcb HRycGFyXGxpbjBccmlu MCANClxsdHJjaFxiXGN mMVxmczIwIExlZnQgcG VsdmljIHNvZnQgdGlzc 1CuDW6wAUGvYBMcvE6j n5zgf8n0aRWzaI6jTYP rZXJzOlxiMFxjZjAgIE 27jMRrfQiiRCVecg80y Qr0LBAio7KcBRWio4Dx fIZfUE5lEPB2ctnbVtL xLjQgeCAwLjUgeCAwLj TvO42icV3gIQrgpqPfZ XRlLCBlbnRpcmVseSBz cCClnQD3SKQbyB9sVCB uICBccHJvdGVjdHtcZm vosKZ4GTvsPzgpjT9du CBIWVBFUkxJTksgbmFt ZJ4VZL2FZjKOCT89ZuK bLTI2RXmQW3XKoYU3Vs p1DXs1qDlbExyzamNzj VCoSfYHbM5ZVFzwEwsb rAN4FAknEsovxX1wjFS IWVBFUkxJTksgbmFtZT 4SVO4QZM1ZjHEaPRE5v HW2JCKKZxxnhSY5sYI1 yL59GOSxVASjgZQhCTg kT118YIVjPHtkJCr2aj NoXGZzMjAgDQpcZXBpY 33gn0NTn5BrZGPny7kz oKpbj5VroAHyXHqsHQN vxYFmDYrfpO3eLhRec7 djnOy7YUcaeeD3LXNpw j8yoGcmvP6xTCsvj8dr UPR1FSTulPAreLHmWUx gtQyyyN2fYcWbBod4SS wuUBLvL7VwM5KcoxO4J HBsYWluXGZzMTYgDQp9 Biomarker Block(s) (test q9kwjYEeUBTazEZ3NuX code = 9841) xMPVii3aty8KucIKxfC BvZPodvMVncyGheb83w BO9dN99AW3cURIyPwC4 OEFuxjJ8Teo7LACoIPZ gsMXmC537w7bvz2ykee WnuUO8vZtyETWnmvuoZ bH7UNtsIIAqmfrpMQl4 NKyvFGBfeTI8IFIavTG pH2CcQUUuIL8tccm2EJ X1KIwuCNPsMbV1VQBpf CWaCLChqViiANhuc662 ZFV1KwHlRLFzmoKjvIr hpT7nZyPwZALUXlMUZQ owODSjVqznNu0IOZVrh lxwYXJ9 Disclaimer (test code = p5nrpLYwEHKlxQIcKjH 9844) qMCVtSBTxv6wcQQNgwD FuZzEwMzNcZnRuYmpcd HJrTGUgDeCkl3dql750 rQIoh0dsSJHcAvC3qDB yDZHrhFJvA829ELFjCR ruv5rwd7CcBATsrUCcl 8E1IKDHfvyoxTf9eOcu E07bj9U6SddhN1tdBBT aSAOuG8JyUG8nAOLeFx b7EZT2ZEM7IEJqPWPsA 6MrPG8qFQEwlXQqDEn4 s4ownMqfLZKcYQE6w6n iDPiwlwXgQT1iga4dxB x6g0sjriCqLYAeHHXwy BEIKXLmC8EbfYaeGd3b pHn0fZetThkmGYF8Uob 1ZA1qfi76dfe8pUlwAP DbncbwDzA7KMyzZNXlk kreROt1WZgcXJDgnNY2 BYSfgDMeL5QiSHPjRL0 oukl3OHM4IUuwVPPyGg T9HADjkTPuOZTydCfcT Jkdw047DNV1SsEkAG6a V5Snw0M6nS8trFKrGUH pqCAjNzEeTPIxiw6yuC DyEPxzc1WpGGM8enB1a QQwrVRlFKQhKM06Sizv o5XxIbweZZH0RWTvmjD ni6Gbe4euJkMiuoHyD5 krZ4OtNVZhPGGsLVLfG jKipmUbr9Qbd4WpvYOu cQz9s0kcMGCiAVRydMi hd5zfFWH7MKFeW9Z5iX Tre0ztCPiiAUIcwSQ1y tY6MDBpqFLoP6JtkM5e TMYkTT7qgft6o7nzCBD 1ZUglFOQnFsC3qqV3ZB BcaGVhZGVyeTcyMFxmb 599EWN7ImZtRGLdw6Os P5UblLgeL21mjVrqV68 oSWDrjGizdT1nlXizlT 5cZjBcZnMyNFxxbFxwb HFarkmmHUnyfuU9KDlj exrqYJQhOYgoB0eqDiV uJGEfaSlyBYknw9OrQY NmKVHvPiptoaD8PZDZs 74oEMKqu7XrRBZhqX4i tOIrHEfukbKqdCM3JAe hdmUgYmVlbiBkZXZlbG 6iJRPrLD4aMEYbwiJjo n8zwxSgZQZwGHMgC9Dk cmlzdGljcyBkZXRlcm1 aycJyZJY6ZMAAKD5PWG IcYCSuc61sJVKucYvmc G8orCOvmoRnOZKac3Hq vV8kgEBSMUJaC5sgWP5 gPFvwi8UenZFqhIUzuK X0FGOzj6VdDpMmxtMxr ZVaaOSgJ7AumYjqQ7ae GPHkCRVateGehCXac3S lCIAflUG7mNXtRG7QXl ACk05uSWRqAJTUwoWgI SDhaMyzoUJ6ldY0hD5r LiBJZiBhcHBsaWNhYmx gZRErt574nl9abfP3LN DcFXGufbvkz0ObMGLpJ ZGadA35LGTtYKMahc4q xzoqtCOxplWqF6Uhyyl 9mZ5uZEHyCVweDSBcWS ZzMjJcbGFuZzEwMzNca GljaFxmMVxkYmNoXGYx UYyvM8htWdDlBoJeDpu wYXJ9 [facility] Material Request 2021-10-25 19:36:01 Test Item Value Reference Range Interpretation Comments Archived Material Previously diagnosed (test code = 64191) tissues from [id number] were selected for molecular analysis. Results will be reported separately. [facility] [id number] 08:35:00 Test Item Value Reference Range Interpretation [...] PATIEN TS. CBC W/PLT COUNT & AUTO [id number] 08:10:00 Test Item Value Reference Range Interpretation [...]
[2022-11-10 22:31] LABS: Absolute Lymphocytes (CBC) 1.1 K/uL (0.7-4.9); Hematocrit 34.3 % (36.0-45.0); Lymphocytes % 27.5 % (15.3-44.8); MCV 93.8 fL (80-100); MPV 7.3 fL (7.6-11.3); RBC Red Blood Cell Count 3.65 M/uL (3.86-4.86)
[2022-11-10 22:46] LABS: Protime INR 1.07
--- NOTE | 2022-11-10 23:17 | EDPHYS ---
Physician Documentation [facility] Name: Misa Claros Age: 72 yrs Sex: Female : 1950 Arrival Date: 11/10/2022 Time: 20:24 Bed 19 Private MD: ED Physician Pat Birmingham HPI: 11/10 21:56 This 72 yrs old Black Female presents to ER via EMS with complaints of right arm sd2 bleeding. 21:56 72-year-old female presents via EMS with chief complaint of right arm bleeding. She sd2 reports she had a heart catheterization performed earlier through a site in her right arm with no known complications at that time. She reports he did have difficulty with getting access in her arm earlier today. She reports she did have significant bleeding at home but it was able to be controlled and has currently stopped with EMS. The patient does have some soreness at the site but otherwise has no significant complaints or issues at this time.. Historical: - Allergies: 20:30 Codeine; kr3 20:30 Morphine; kr3 - PMHx: 20:30 Atrial fibrillation; Back pain; uterine cancer; diagnosed a year ago; Hypertension; kr3 sciatica; - Immunization history:: Adult Immunizations unknown. - Social history:: Smoking status: Patient/guardian denies using tobacco, the patient reports quitting approximately 50 years ago. ROS: 21:56 Constitutional: Negative for fever, chills, and weight loss, Eyes: Negative for injury, sd2 pain, redness, and discharge, Cardiovascular: Negative for chest pain, palpitations, and edema, Respiratory: Negative for shortness of breath, cough, wheezing. Abdomen/GI: Negative for abdominal pain, nausea, vomiting, diarrhea. MS/Extremity: Negative for injury and deformity, Skin: Negative for injury, rash, and discoloration, Neuro: Negative for headache, numbness and tingling. Exam: 21:56 Constitutional: This is a well developed, well nourished patient who is awake, alert, sd2 and in no acute distress. Head/Face: Normocephalic, atraumatic. Eyes: EOMI, normal conjunctiva bilaterally Chest/axilla: Normal chest wall appearance and motion. Nontender with no deformity. Cardiovascular: Regular rate and rhythm with a normal S1 and S2. No gallops, murmurs, or rubs. 2+ distal pulses. Respiratory: Lungs have equal breath sounds bilaterally, clear to auscultation and percussion. No rales, rhonchi or wheezes noted. No increased work of breathing, no retractions or nasal flaring. Abdomen/GI: Soft, non-tender, with normal bowel sounds. No guarding or rebound. No evidence of tenderness throughout. Skin: Small puncture site with small area of surrounding swelling noted at the R wrist, no active bleeding at this time MS/ Extremity: Pulses equal, no cyanosis. Neurovascular intact. Full, normal range of motion. Ambulatory without difficulty. Psych: Awake, alert, with orientation to person, place and time. Behavior, mood, and affect are within normal limits. Vital Signs: 20:26 BP 132 / 92; Pulse 88; Resp 18; Temp 97.9; Pulse Ox 100% ; Weight 97.07 kg; Height 5 kr3 ft. 4 in. (162.56 cm); Pain 0/10; 21:15 BP 121 / 67; Pulse 77; Resp 18; Pulse Ox 100% on R/A; Pain 1/10; kr3 22:00 BP 130 / 89; Pulse 86; Resp 16; Pulse Ox 100% on R/A; Pain 1/10; kr3 23:00 BP 108 / 83; Pulse 80; Resp 18; Temp 98(O); Pulse Ox 100% on R/A; Pain 1/10; kr3 20:26 Body Mass Index 36.73 (97.07 kg, 162.56 cm) kr3 MDM: 20:53 Patient medically screened. sd2 21:56 Differential Diagnosis Postoperative bleeding, coagulopathy, anemia among others. Data sd2 reviewed: vital signs, nurses notes, EMS record. Historians other than the Patient: Family Member: Patient's daughter at bedside provides further history. 23:15 Data reviewed: lab test result(s). Consideration of Admission/Observation Escalation of sd2 care including admission/observation considered. I considered the following discharge prescriptions or medication management in the emergency department I discussed and recommended Over The Counter medications. Care significantly affected by the following chronic conditions: Hypertension, Cancer. Counseling: I had a detailed discussion with the patient and/or guardian regarding: the historical points, exam findings, and any diagnostic results supporting the discharge/admit diagnosis, lab results, the need for outpatient follow up, to return to the emergency department if symptoms worsen or persist or if there are any questions or concerns that arise at home. ED course: No further bleeding appreciated at this time. The patient's pain has been well controlled and she has been resting comfortably. She is comfortable with plan for discharge and outpatient follow-up and verbalizes understanding of strict return precautions.. 11/10 21:33 Order name: CBC with Diff; Complete Time: 22:50 sd2 11/10 21:33 Order name: PT-INR; Complete Time: 22:50 sd2 11/10 21:33 Order name: Ptt, Activated; Complete Time: 22:50 sd2 Administered Medications: No medications were administered Disposition Summary: 11/10/22 23:16 Discharge Ordered Location: Home sd2 Problem: new sd2 Symptoms: are resolved sd2 Condition: Stable sd2 Diagnosis - Post-procedural bleeding sd2 Followup: sd2 - With: Private Physician - When: 2 - 3 days - Reason: Recheck today's complaints, Continuance of care, Re-evaluation by your physician Discharge Instructions: - Discharge Summary Sheet sd2 Forms: - Medication Reconciliation Form sd2 - Thank You Letter sd2 - Antibiotic Education sd2 - Prescription Opioid Use sd2 Signatures: Dispatcher [employer] Pat Bonilla MD MD sd2 Jinny Wynn RN RN kr3
--- NOTE | 2022-11-10 23:17 | ER ---
Nurse's Notes [facility] Name: Misa Claros Age: 72 yrs Sex: Female : 1950 Arrival Date: 11/10/2022 Time: 20:24 Bed 19 Private MD: Diagnosis: Post-procedural bleeding Presentation: 11/10 20:26 Chief complaint: EMS states: patient had cath this am and had an arm pad placed to keep kr3 her from bending/moving arm. patient was compliant but the wrist started bleeding about 10 minutes prior to calling EMS. Coronavirus screen: Vaccine status: Patient reports receiving the 2nd dose of the covid vaccine. Ebola Screen: Patient denies travel to an Ebola-affected area in the 21 days before illness onset. Initial Sepsis Screen: Does the patient meet any 2 criteria? No. Patient's initial sepsis screen is negative. Does the patient have a suspected source of infection? No. Patient's initial sepsis screen is negative. Risk Assessment: Do you want to hurt yourself or someone else? Patient reports no desire to harm self or others. Onset of symptoms was November 10, 2022. 20:26 Method Of Arrival: EMS kr3 20:26 Acuity: VINOD 3 kr3 Triage Assessment: 20:30 General: Appears in no apparent distress. comfortable, Behavior is calm, cooperative, kr3 appropriate for age. Pain: Denies pain. Historical: - Allergies: 20:30 Codeine; kr3 20:30 Morphine; kr3 - PMHx: 20:30 Atrial fibrillation; Back pain; uterine cancer; diagnosed a year ago; Hypertension; kr3 sciatica; - Immunization history:: Adult Immunizations unknown. - Social history:: Smoking status: Patient/guardian denies using tobacco, the patient reports quitting approximately 50 years ago. Screenin:10 [facility] ED Fall Risk Assessment (Adult) History of falling in the last 3 months, kr3 including since admission No falls in past 3 months (0 pts) Confusion or Disorientation No (0 pts) Intoxicated or Sedated No (0 pts) Impaired Gait No (0 pts) Mobility Assist Device Used No (0 pt) Altered Elimination No (0 pt) Score/Fall Risk Level 0 - 2 = Low Risk Oriented to surroundings, Maintained a safe environment, Educated pt \T\ family on fall prevention, incl call for assistance when getting out of bed, Assessed \T\ reinforced patient's understanding of fall precautions, Provided non-skid footwear, Hourly rounding (assess needs \T\ fall precautionary measures) done, Used ambulatory aids as needed (educated on \T\ assisted with), Used gait belt as appropriate. 21:10 Abuse screen: Denies threats or abuse. Nutritional screening: No deficits noted. kr3 Tuberculosis screening: No symptoms or risk factors identified. Assessment: 21:10 General: Appears in no apparent distress. comfortable, obese, well groomed, well kr3 developed, Behavior is calm, cooperative, appropriate for age, quiet. 21:10 Pain: Complains of pain in right wrist pain of 1, S/P catherization performed today kr3 Pain currently is 1 out of 10 on a pain scale. Neuro: No deficits noted. Level of Consciousness is awake, alert, obeys commands, Oriented to person, place, time, situation. Cardiovascular: No deficits noted. Capillary refill < 3 seconds Patient's skin is warm and dry. Respiratory: Airway is patent Trachea midline Respiratory effort is even, unlabored, Respiratory pattern is regular, symmetrical, Breath sounds are clear bilaterally. GI: No deficits noted. No signs and/or symptoms were reported involving the gastrointestinal system. Abdomen is round non-distended, Bowel sounds present X 4 quads. : No deficits noted. No signs and/or symptoms were reported regarding the genitourinary system. EENT: No deficits noted. No signs and/or symptoms were reported regarding the EENT system. Derm: No deficits noted. No signs and/or symptoms reported regarding the dermatologic system. Musculoskeletal: Reports bleeding from insertion site of heart catheterization performed today, No bleeding noted at this time. 22:00 Reassessment: Patient appears in no apparent distress at this time. No changes from kr3 previously documented assessment. Patient and/or family updated on plan of care and expected duration. Pain level reassessed. Patient is alert, oriented x 3, equal unlabored respirations, skin warm/dry/pink. Patient states symptoms have improved. 23:00 Reassessment: Patient appears in no apparent distress at this time. No changes from kr3 previously documented assessment. Patient and/or family updated on plan of care and expected duration. Pain level reassessed. Patient is alert, oriented x 3, equal unlabored respirations, skin warm/dry/pink. Patient states feeling better. Patient states symptoms have improved. Vital Signs: 20:26 BP 132 / 92; Pulse 88; Resp 18; Temp 97.9; Pulse Ox 100% ; Weight 97.07 kg; Height 5 kr3 ft. 4 in. (162.56 cm); Pain 0/10; 21:15 BP 121 / 67; Pulse 77; Resp 18; Pulse Ox 100% on R/A; Pain 1/10; kr3 22:00 BP 130 / 89; Pulse 86; Resp 16; Pulse Ox 100% on R/A; Pain 1/10; kr3 23:00 BP 108 / 83; Pulse 80; Resp 18; Temp 98(O); Pulse Ox 100% on R/A; Pain 1/10; kr3 20:26 Body Mass Index 36.73 (97.07 kg, 162.56 cm) kr3 ED Course: 20:24 Patient arrived in ED. ds4 20:29 Triage completed. kr3 20:30 Arm band placed on right wrist. Patient placed in an exam room, on a stretcher. kr3 20:53 Pat Birmingham MD is Attending Physician. sd2 21:00 Patient has correct armband on for positive identification. Bed in low position. Call kr3 light in reach. Side rails up X2. 21:54 Jinny Wynn, RN is Primary Nurse. kr3 22:15 Ptt, Activated Sent. kr3 22:15 PT-INR Sent. kr3 22:15 CBC with Diff Sent. kr3 22:15 Inserted saline lock: 22 gauge in left antecubital area, using aseptic technique. Blood kr3 collected. 23:36 No provider procedures requiring assistance completed. IV discontinued, intact, kr3 bleeding controlled, No redness/swelling at site. Pressure dressing applied. Administered Medications: No medications were administered Medication: 23:37 VIS not applicable for this client. kr3 Outcome: 23:16 Discharge ordered by . sd2 23:37 Discharged to home via wheelchair. kr3 23:37 Condition: improved 23:37 Discharge instructions given to patient, family, Instructed on discharge instructions, follow up and referral plans. Demonstrated understanding of instructions, follow-up care. 23:37 Patient left the ED. kr3 Signatures: Jordy Bledsoe ds4 Pat Birmingham MD MD sd2 Jinny Wynn, RN RN kr3
[2022-11-10 23:55] VITALS: O2SAT 100
[2022-11-11 00:24] VITALS: BP 108/83; TEMP 98
== END 2022-11-10 23:37 | disposition home or self-care (01) ==
LOC: ER 20:23
DX: I97.610 Postprocedural hemorrhage of a circulatory system organ or structure following a cardiac catheterization (principal); I10 Essential (primary) hypertension; Z88.5 Allergy status to narcotic agent
CPT/HCPCS: 36415; 85025; 85610; 85730; 99284

== ENCOUNTER 2023-04-22 00:55 | Emergency (ER) | payer OTHER ==
--- OUTSIDE RECORDS SUMMARY | 2023-04-22 01:28 | XMS REPORT | Clinical Summary ---
:1950 Author Organization [facility] MD Batista [facility] Address [address] [place] [address] Care Team Providers Name Role Phone Deonna Leiva MD Primary Care Provider Denzel Pritchett "Hattie" Unavailable [phone] Mateo Chavez MD Unavailable [phone] David Dobson MD Unavailable [phone] Allergies Active Allergy Reactions Severity Noted [...] tablet 0 Acti ve (PRAVACHOL) 20 mg (20 mg) by 1 tablet mouth daily. ondansetron (ZOFRAN) Take 1 tablet 0 Active 4 mg tablet (4 mg) by 1 mouth as needed. levothyroxine Take 1 tablet 0 Ac tive (SYNTHROID, (25 mcg) by 1 LEVOTHROID) 25 mcg mouth daily. tablet famotidine (PEPCID) Take 1 tablet 0 Active 20 mg tablet (20 mg) by 1 mouth daily. Eliquis 5 mg tablet Take 1 tablet 0 Active (5 mg) by 2 mouth twice daily. Entresto 24-26 mg Take 1 tablet 0 Active tab per tablet by mouth 2 twice daily. furosemide (LASIX) Take 1 tablet 0 Active 20 mg tablet (20 mg) by 2 mouth daily. spironolactone Take 1 tablet 0 A ctive (ALDACTONE) 50 mg (50 mg) by 2 tablet mouth daily. diclofenac sodium Apply 2 g 450 [...] mg) by mouth Chronic pain twice daily. dexAMETHasone Take 1 tablet 0 Ac tive (DECADRON) 4 mg (4 mg) by tablet mouth twice daily. 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 Active Problems Patient Care Coordination Note Formatting of this note might be differe nt from the original. 0Please call patient with all appointmen t dates and times, does not use Mychart. Problem Noted Date Congestive heart failure 01/16/2022 Encounter for antineoplastic chemotherapy 01/16/2022 Paroxysmal atrial fibrillation 12/13/2021 Last Assessment & Plan: Formatting of th is note might be different from the original. Patient has a history of atrial fibrilla tion she is likely persistent versus chronic with EKG done today showing well controlled atrial fibrillation in the 80s. Continue metoprolol tartrate 25 mg p.o. t wice daily but long-term anticoagulation with Eliquis 5 mg p.o. twice daily with a [id number] score 4 (age, gender, CHF, HTN) Nonischemic congestive cardiomyopathy 12/13/2021 Last Assessment & Plan: Formatting of th [...] already had this discussion with her private river tester concerning a permanent ICD implant and knows she would need a follow-up appoint ment within 3 months. Patient states she elected to have her further management with her local river tester. 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 Left heart catheterization done 11/29/19 22 showed normal coronary arteries with only luminal [...] (!) 106.2 kg (234 lb 2.1 oz) [place] body weight: 52.4 kg (115 lb 7.7 [...] issue. Serous cystadenocarcinoma, NOS of endometrium 11/08/19 17 Cancer Staging: Clinical stage from 2016: Stage IA (Primary) - Signed by Deonna Leiva MD on 12/18/2016 Clinical stage from 10/25/2021: Recurrent - Signed by Deonna Leiva MD on 11/05/2021 Encounters Date Type Specialty Care Team Description 04/20/2023 Follow-Up Gynecology Deonna Leiva MD cystadenocarcin queenie, NOS of endometrium 04/20/2023 Travel 04/19/2023 Ancillary Radiology Deonna Leiva Serous cysta denocarcinoma, NOS of endometrium; Rajiv Cali MD Other specified polyneuropathy 04/02/2023 Orders Only Colorectal Surgery Neetu Deal Coronary artery disease due to calcified coronary lesion (Primary Dx); BETO Null Congestive hear t failure, not otherwise specified; Cardiomegaly; Paroxysmal atri al fibrillation 04/02/2023 Orders Only Colorectal Surgery Neetu Deal Screening for malignant BETO Null neoplasms of co rashid (Primary Dx) 03/15/2023 Follow-Up Pain Medicine Nolberto Israel Chronic pain (Paul Negrete MD Dx) 03/15/2023 Travel 01/19/2023 Follow-Up Gynecology Deonna Leiva Serous cysta denocarcinoma, NOS of endometrium (Primary Dx); MD Viraj 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; Gabi Basurto PA Abdominal bl oating 01/19/2023 Travel 12/08/2022 Telephone Pain Medicine Kathleen Emanuel RN 11/30/2022 Procedure visit Pain Medicine Nolberto Israel Chronic p ain (Paul Negrete MD Dx) 11/30/2022 Travel 11/27/2022 Telephone Surgical Oncology Delma Franklin, COREY 11/13/2022 Follow-Up Pain Medicine Nolberto Israel Chronic pain (Paul Negrete MD Dx) 11/13/2022 Travel 10/20/2022 Follow-Up Gynecology Deonna Leiva Serous cysta denocarcinoma, NOS of endometrium (Primary Dx); MD Viraj Other specified polyneuropathy; Mixed urinary i ncontinence 10/20/2022 Travel 10/19/2022 Ancillary Radiology Deonna Leiva Serous Procedure MD Viraj cystadenocarcin queenie, NOS of endometrium 10/19/2022 Hospital Lab Deonna Leiva Serous Encounter MD Viraj cystadenocarcin queenie, NOS of endometrium 10/19/2022 Travel 08/14/2022 Follow-Up Pain Medicine Nolberto Israel Chronic pain (Paul Negrete MD Dx) 08/14/2022 Travel 07/21/2022 Office Visit Gynecology Deonna Lieva Serous cysta denocarcinoma, NOS of endometrium (Primary Dx); MD Viraj 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; Rhonda Carty, Other specifi ed polyneuropathy; PA Congestive hear t failure, not otherwise specified 07/21/2022 Travel 07/20/2022 Ancillary Radiology Serous cystaden ocarcinoma, NOS of endometrium; Procedure Encounter for a ntineoplastic chemotherapy; Metastatic canc [...] Only Gynecology Rhonda Carty, Neoplasm, mal ignant of PA endometrium (Pr imary Dx) 06/20/2022 Orders Only Gynecology Deonna Leiva Neoplasm, ma lignant of endometrium (Primary Dx); MD Viraj Metastatic canc er to the peritoneum; Serous cystaden ocarcinoma, NOS of endometrium 06/19/2022 Procedure visit Pain Medicine Nolberto Israel p ain (Primary Dx); MD Penelope Sacroiliitis; Pain in right k nee; Cancer associat ed pain 06/19/2022 Travel 06/16/2022 Telephone Pain Medicine Kathleen Emanuel RN 05/31/2022 Telephone Pain Medicine Kathleen Emanuel RN 05/26/2022 Infusion Infusion Services Deonna Leiva Metastdaryn tic [...] Only Gynecology Rhonda Carty, Neoplasm, mal ignant of PA endometrium (Pr imary Dx) 05/25/2022 Orders Only Gynecology Deonna Leiva Neoplasm, ma lignant of endometrium (Primary Dx); MD Viraj Metastatic canc er to the peritoneum 05/15/2022 Office Visit Pain Medicine Nolberto Israel Chronic pain (Primary JEmeli, Dx) 05/15/2022 Travel 04/26/2022 Infusion Infusion Services Deonna Leiva Metasta tic cancer to the peritoneum (Primary Dx); MD Viraj Neoplasm, malignant of endometrium Estee Bailon, RN 04/26/2022 Office Visit Gynecology Deonna Leiva Neoplasm, ma lignant of endometrium (Primary Dx); MD Viraj Metastatic canc er to the peritoneum; Encounter for a ntineoplastic chemotherapy; Agranulocytosis secondary to cancer chemotherapy; Morbid (severe) obesity due to excess calories; Congestive hear t failure, not otherwise specified 04/26/2022 Orders Only Gynecology Deonna Leiva, gurinder carter of MD Viraj endometrium (Pr imary Dx) 04/26/2022 Travel 04/25/2022 Orders Only Gynecology Deonna Leiva MD after 04/22/2022 Immunizations Name Administration Dates Next Due SignalSet SARS-CoV-2 Vaccination (Purple Cap) 05/14/2021, 10/2020 Surgical History Surgery Date Site/Laterality Comments SECTION, CLASSIC 01/17/1981 MS LAPAROSCOPY TOT 11/28/2016 N/A Procedure: RO BOTIC HYSTERECTOMY >250 G ASSISTED TOT AL W/TUBE/OVAR HYSTERECTOMY, CA NI LAPAROTOMY, CYST OSCOPY; Surgeon: Deonna Leiva MD; Loc ation: MAIN OR; Service : ESTHETICIAN/SPA COORDINATOR - GYNECOLOGIC ONCO LOGY MS SALPINGO-OOPHORECTOMY 11/28/2016 Bilateral Procedu re: ROBOTIC COMPL/PRTL UNI/BI SPX ASSISTED SALPINGO-OOPHORE CTOMY; Surgeon: Deonna Leiva MD; Loc ation: MAIN OR; Service : ESTHETICIAN/SPA COORDINATOR - GYNECOLOGIC ONCO LOGY MS LMTD LMPHADEC STAGING 11/28/2016 Abdomen/Bilateral Proce dure: BILATERAL SPX PEL&PARA-AORTIC PELVIC BIOPS IES AND OMENTAL BIOPSY; Surgeon: Deonna ureña MD; Location: MAIN O R; Service: ESTHETICIAN/SPA COORDINATOR - GYNECOLOGIC ONCO LOGY MS INTRAOP SENTINEL LYMPH 11/28/2016 Bilateral Proced ure: INTRAOPERATIVE NODE ID W/DYE INJECTION LYMPHATI C MAPPING; Surgeon: Deonna Leiva MD; Loc ation: MAIN OR; Service : ESTHETICIAN/SPA COORDINATOR - GYNECOLOGIC ONCO LOGY CHOLECYSTECTOMY 05/25/2018 - [...] file Not on file Not on file Obstetrics History Para Term AB IAB SAB [...] Sign Reading Time Taken Comments Blood Pressure 141/89 04/20/2023 8:02 AM CDT Pulse 73 04/20/2023 8:02 AM CDT Temperature 36.6 C (97.9 F) 04/20/2023 8:02 AM CDT Respiratory Rate 18 04/20/2023 8:02 AM CDT Oxygen Saturation - - Inhaled Oxygen Concentration - - Weight 96.9 kg (213 lb 10 oz) 04/20/2023 8:04 AM CDT Height 160 cm (5' 2.99") 04/19/2023 1:29 PM CDT Body Mass Index 37.85 04/19/2023 1:29 PM CDT Plan of Treatment Date Type Specialty Care Team Description 06/15/2023 Follow-Up Pain Medicine Nolberto Israel MD [address] [place], [place] [address] (Wo rk) 06/27/2023 Follow-Up Cardiology Star Treviño MD [address] [place], [place] [address] (Wo rk) Health Maintenance Due Date Last Done Comments COVID-19 Vaccination (3 - Pfizer risk 06/11/2021 05/14/2021 , 04/25/2021 series) Procedures Procedure Name Priority Date/Time Associated Diagnosis Comme nts CANCER ANTIGEN 125 Routine 04/20/2023 7:22 Serous Result s for this AM CDT cystadenocarcinoma, procedur e are in NOS of endometrium the resul ts section. PETCT SUBSEQUENT Routine 04/19/2023 3:00 Serous Results for this TREATMENT STRATEGY PM CDT cystadenocarcinoma, pr ocedure are in NOS of endometri um the results Other specified section. polyneuropathy CANCER ANTIGEN 125 Routine 01/18/2023 9:49 Serous Result s for this AM CDT cystadenocarcinoma, procedur e are in NOS of endometri um the results Other specified section. polyneuropathy PAIN MANAGEMENT Routine 11/30/2022 1:24 Chronic pain Results f or this ULTRASOUND PM [employer] procedure are i n the results section. PETCT SUBSEQUENT Routine 10/19/2022 10:16 Serous Results for this TREATMENT STRATEGY AM [employer] cystadenocarcinoma, pr ocedure are in NOS of endometrium the resul ts section. CANCER ANTIGEN 125 Routine 10/19/2022 8:09 Serous Result s for this AM [employer] cystadenocarcinoma, procedur e are in NOS of [...] BASIC METABOLIC PANEL, Routine 05/26/2022 9:02 Metastatic can cer to CALCIUM TOTAL AM [...] malignant the resu lts of endometrium section. after 04/22/2022 Results CA 125 (04/20/2023 7:22 AM CDT)Only the most recent of7 resultswithin the time period is included. P athologist Signature CA 125 14.3 <=38.0 U/mL [place] Comment: Results greater than 11,500.0 U/L may no t be reliable due to matrix effect with extended dilution as it exceeds the stable manager s recommended limit. Caution should be exercised when interpreting such values and done in conjunction with cli nical context. Reference intervals are not available fo r male patients. Results should be interpreted in conjunction with clinical context. This test is measured by electrochemilum inescence immunoassay on Baldev Hany immunoassay analyzers. Results obtained in different methods are not interchangeable. Testing performed at [facility], [address] [place] [address], [place] [address] Specimen Anatomical Collection Method Collection Time Receive d Time (Source) Location / / Volume Laterality Blood 04/20/2023 7:22 AM 7:36 CDT AM CDT Gabi PÉREZ LAB BLOOD ORDERABLES Performing Organization Address City/State/ZIP Code Phon e Number [facility] [place] [address] [place] [address] PETCT Subsequent Treatment Strategy (04/19/2023 3:00 PM CDT)Only the most recent of3 resultswithin the time period is included. Anatomical Region Laterality Modality Whole Body Positron Emission To mography (PET) Specimen (Source) Anatomical Collection Method Collection Time Re ceived Time Location / / Volume Laterality 04/20/2023 11:05 AM CDT Impressions 04/20/2023 11:26 AM CDT A new hypermetabolic left external iliac lymph node is identified with differential diagnosis of reactive etiologies versus metastatic disease. Attention on short-term follow-up scans in 2-3 months is r ecommended. Tissue diagnosis should be c onsidered for this patient who has rising CA-125 levels within normal range (9.3 on 12/29/2022 to 14.3 U/mL on 04/20/2023). ACTIONABLE ITEMS/RECOMMENDATIONS: None. Narrative 04/20/2023 11:26 AM CDT FULL RESULT: Examination: 18F-FDG-PET/CT without cont rast, 04/19/2023 3:00 PM Clinical History: A 72-year-old female w ith metastatic endometrial serous cystadenocarcinoma initially diagnosed in 10/2016 s/p hysterectomy in 11/2016, vaginal cuff brachytherapy in 01/2017 and systemic t reatment including recent CARBO chemothe rapy completed in 05/2022. Indication: Subsequent treatment strateg y Comparison: F-18 FDG PET/CT of 10/19/2022 and (prior study) 07/20/2022. Technique: Radiopharmaceutical: F-18 fluorodeoxyglu cose 10.6 mCi was administered intravenously via left antecubital vein. To allow for distribution and uptake of radiotracer, the patient was asked to rest quiet ly for approximately 60-90 minutes. PE T/CT imaging was performed from the vertex down to the thighs. CT scanning was done for attenuation correction, image registration, and diagnosis with scan parame ters optimized to minimize radiation exp osure to the patient. SUV measurements are reported as maximum SUV based on body weight unless otherwise specified Findings: Head and Neck: The brain, orbits, paranasal sinuses, or opharynx, salivary glands and thyroids are unremarkable. There is no cervical [place] hypermetabolism. Chest: No suspicious pulmonary nodule is identi fied. No hypermetabolic lymphadenopathy is seen in the axilla, tariq nor mediastinum. Scatter atherosclerotic calcification of the aorta is noted. There is no pleu ral effusion nor pericardial effusion. N o abnormal breast uptake is identified. Abdomen and Pelvis: There has been interval development of a new 1 x 1.2 cm left external iliac lymph node (SUV of 6.4 on image 238) that could be of reactive etiology versus metastasis. Close attention on follow-up is rec ommended. No hypermetabolic lymphadeno sachin is seen in the mesentery, retroperitoneum nor inguinal stations. The liver, spleen, pancreas and adrenal glands are unremarkable. Stable bilateral renal cysts are again identified. The patient status post hysterectomy and bilateral salpingo-oophorectomy. For reference the parenchymal SUV of the right hepatic lobe is 3.6 compared with 3.3 on prior study. Musculoskeletal: Degenerative changes are seen in the ranjit nts of the shoulders, spine and hips. No osteolytic nor osteoblastic metastasis is identified. Procedure Note Nhan Naylor MD - 04/20/2023Formattin g of this note might be different from the original. FULL RESULT: Examination: 18F-FDG-PET/CT without cont rast, 04/19/2023 3:00 PM Clinical History: A 72-year-old female w ith metastatic endometrial serous cystadenocarcinoma initially diagnosed in 10/2016 s/p hysterectomy in 11/2016, vaginal cuff brachytherapy in 01/2017 and systemic treatment including recent CARBO chemotherapy comp leted in 05/2022. Indication: Subsequent treatment strateg y Comparison: F-18 FDG PET/CT of 10/19/2022 and (prior study) 07/20/2022. Technique: Radiopharmaceutical: F-18 fluorodeoxyglu cose 10.6 mCi was administered intravenously via left antecubital vein. To allow for distribution and uptake of radiotracer, the patient was asked to rest quietly for approximately 60-90 minutes. PET/CT imag ing was performed from the vertex down to the thighs. CT scanning was done for attenuation correction, image registration, and diagnosis with scan parameters optimized to minimize radiation exposure to the patient. SUV m easurements are reported as maximum SUV based on body weight unless otherwise specified Findings: Head and Neck: The brain, orbits, paranasal sinuses, or opharynx, salivary glands and thyroids are unremarkable. There is no cervical clayton hypermetabolism. Chest: No suspicious pulmonary nodule is identi fied. No hypermetabolic lymphadenopathy is seen in the axilla, tariq nor mediastinum. Scatter atherosclerotic calcification of the aorta is noted. There is no pleural effusion nor pericardial effusion. No ab normal breast uptake is identified. Abdomen and Pelvis: There has been interval development of a new 1 x 1.2 cm left external iliac lymph node (SUV of 6.4 on image 238) that could be of reactive etiology versus metastasis. Close attention on follow-up is recommended. No hypermetabolic lymphadenopathy is see n in the mesentery, retroperitoneum nor inguinal stations. The liver, spleen, pancreas and adrenal glands are unremarkable. Stable bilateral renal cysts are again identified. The patient status post hysterectomy and bilateral salpingo-oophorectomy. For reference the parenchymal SUV of the right hepatic lobe is 3.6 compared with 3.3 on prior study. Musculoskeletal: Degenerative changes are seen in the ranjit nts of the shoulders, spine and hips. No osteolytic nor osteoblastic metastasis is identified. IMPRESSION: A new hypermetabolic left external iliac lymph node is identified with differential diagnosis of reactive etiologies versus metastatic disease. Attention on short-term follow-up scans in 2-3 months is recommended. Tissue diagnosis should be considered fo r this patient who has rising CA-125 levels within normal range (9.3 on 12/29/2022 to 14.3 U/mL on 04/20/2023). ACTIONABLE ITEMS/RECOMMENDATIONS: None. Rhonda GARCIA PETCT ORDERABLES Pain Management Ultrasound (11/30/2022 1:24 PM [employer]) Specimen (Source) Anatomical Location Collection Method / Collectio n Time Received Time / Laterality Volume Narrative Systemgenerated, Documentation - 023 1:24 PM [employer] This procedure requires no interpretatio n from the radiologist. Nolberto Israel MD IMG NON DI ORDERABLES (ABNORMAL) .Serum Creatinine (07/21/2022 10:27 AM CDT)Only the most recent of4 resultswithin the time period is included. athologist Signature Creatinine 1.03 (H) 0.51 - 0.95 [place] mg/dL Comment: Testing performed at [facility], [address] [place] [address] Specimen Anatomical Collection Method Collection Time Receive d Time (Source) Location / / Volume Laterality Blood 07/21/2022 10:27 07/21/2022 AM CDT 10:27 AM CDT Deonna Leiva MD LAB BLOOD ORDERABLES Performing Organization Address City/State/ZIP Code Phon e Number [address] (ABNORMAL) .CBC (07/21/2022 10:27 AM CDT)Only the most recent of4 resultswithin the time period is included. athologist Signature WBC 3.2 (L) 4.0 - 11.0 [place] K/uL Comment: All components of the CBC perfo rmed at [facility], [address] [place] [address] RBC 2.98 (L) 4.00 - 5.50 M/uL [place] Comment: As part of CBC testing performe d at [facility], [address] [place] [address] Hgb 10.5 (L) 12.0 - 16.0 gm/dL [place] Comment: As part of CBC or as an individ ual orderable testing performed at [facility], [address] [place] [address] Hct 31.7 (L) 37.0 - 47.0 % [place] Comment: As part of CBC or as an individ ual orderable testing performed at [facility], [address] [place] [address] MCV 106 (H) 82 - 98 fL [place] Comment: As part of CBC testing performe d at [facility], [address] [place] [address] MCH 35.2 (H) 27.0 - 31.0 pg [place] Comment: As part of CBC testing performe d at [facility], [address] [place] [address] MCHC 33.1 31.0 - 36.0 gm/dL [place] Comment: As part of CBC testing performe d at [facility], [address] [place] [address] RDW-SD 60.1 (H) 35.1 - 46.3 fL [place] Comment: As part of CBC testing performe d at [facility], [address] [place] [address] RDW-CV 15.8 (H) 12.0 - 15.5 % [place] Comment: As part of CBC testing performe d at [facility], [address] [place] [address] Platelet count 120 (L) 140 - 440 K/uL [place] Comment: As part of CBC or as an individ ual orderable testing performed at [facility], [address] [place] [address] MPV 9.1 4.0 - 10.4 fL [place] Comment: As part of CBC testing performe d at [facility], [address] [place] [address] Specimen Anatomical Collection Method Collection Time Receive d Time (Source) Location / / Volume Laterality Blood 07/21/2022 10:27 07/21/2022 AM CDT 10:27 AM CDT Deonna Leiva MD LAB BLOOD ORDERABLES Performing Organization Address City/State/ZIP Code Phon e Number [place] [address] (ABNORMAL) Glomerular Filtration Rate (07/21/2022 10:27 AM CDT)Only the most recent of4 resultswithin the time period is included. athologist [facility] [place] eGFR 58 (L) >=60 [place] mL/min/1.73 sq. m Comment: The eGFRcr is [...] fulfill criteria for CKD. Testing performed at [facility], [address] [place] [address] Specimen Anatomical Collection Method Collection Time Receive d Time (Source) Location / / Volume Laterality Blood 07/21/2022 10:27 07/21/2022 AM CDT 10:27 AM CDT Deonna Leiva MD LAB BLOOD ORDERABLES Performing Organization Address City/State/ZIP Code Phon e Number [address] (ABNORMAL) Differential (07/21/2022 10:27 AM CDT)Only the most recent of4 resultswithin the time period is included. athologist [facility] [place] Neutrophil % 56.2 42.0 - 66.0 [place] % Comment: All components of the Different ial performed at [facility], [address] [place] [address] Lymphocyte % 33.6 24.0 - 44.0 % [place] Comment: As part of Differential, testin g performed at [facility], [address] [place] [address] Monocyte % 8.0 (H) 2.0 - 7.0 % [place] [facility] Comment: As part of Differential, testin g performed at [facility], [address] [place] [address] Eosinophil % 1.9 1.0 - 4.0 % [place] [facility] Comment: As part of Differential, testin g performed at [facility], [address] [place] [address] Basophil % 0.3 0.0 - 1.0 % [place] [facility] Comment: As part of Differential, testin g performed at [facility], [address] [place] [address] Neutrophil Abs 1.82 1.70 - 7.30 K/uL [place] Comment: As part of Differential, testin g performed at [facility], [address] [place] [address] Lymphocyte Abs 1.09 1.00 - 4.80 K/uL [place] Comment: As part of Differential, testin g performed at [facility], [address] [place] [address] Monocyte Abs 0.26 0.08 - 0.70 K/uL [place] [facility] Comment: As part of Differential, testin g performed at [facility], [address] [place] [address] Eosinophil Abs 0.06 0.04 - 0.40 K/uL [place] Comment: As part of Differential, testin g performed at [facility], [address] [place] [address] Basophil Abs 0.01 0.00 - 0.10 K/uL [place] Comment: As part of Differential, testin g performed at [facility], [address] [place] [address] Specimen Anatomical Collection Method Collection Time Receive d Time (Source) Location / / Volume Laterality Blood 07/21/2022 10:27 07/21/2022 AM CDT 10:27 AM CDT Deonna Leiva MD LAB BLOOD ORDERABLES Performing Organization Address City/State/ZIP Code Phon e Number [place] [address] BUN (07/21/2022 10:27 AM CDT)Only the most recent of4 resultswithin the time period is included. athologist Signature BUN 19 6 - 23 mg/dL [place] Comment: Testing performed at [facility], [address] [place] [id number] Specimen Anatomical Collection Method Collection Time Receive d Time (Source) Location / / Volume Laterality Blood 07/21/2022 10:27 07/21/2022 AM CDT 10:27 AM CDT Deonna Leiva MD LAB BLOOD ORDERABLES Performing Organization Address City/[facility]/ZIP Code Phon e Number [address] ALT (07/21/2022 10:27 AM CDT)Only the most recent of4 resultswithin the time period is included. athologist Signature ALT 10 <=33 U/L [place] Comment: Testing performed at [facility], [address] [place], [place] [address] Specimen Anatomical Collection Method Collection Time Receive d Time (Source) Location / / Volume Laterality Blood 07/21/2022 10:27 07/21/2022 AM CDT 10:27 AM CDT Deonna Leiva MD LAB BLOOD ORDERABLES Performing Organization Address City/[facility]/ZIP Code Phon e Number [place] [phone] [place] [address] AST (07/21/2022 10:27 AM CDT)Only the most recent of4 resultswithin the time period is included. athologist Signature AST 16 <=32 U/L [place] Comment: Testing performed at [facility], [address] [place], [place] [address] Specimen Anatomical Collection Method Collection Time Receive d Time (Source) Location / / Volume Laterality Blood 07/21/2022 10:27 07/21/2022 AM CDT 10:27 AM CDT Deonna Leiva MD LAB BLOOD ORDERABLES Performing Organization Address City/State/ZIP [place] [address] [address] [facility] Magnesium (07/21/2022 10:27 AM CDT)Only the most recent of4 resultswithin the time period is included. athologist Signature Magnesium 1.6 1.6 - 2.6 [place] [facility] mg/dL Comment: Testing performed at [facility], [address] [place], [place] [address] Specimen Anatomical Collection Method Collection Time Receive d Time (Source) Location / / Volume Laterality Blood 07/21/2022 10:27 07/21/2022 AM CDT 10:27 AM CDT Deonna Leiva MD LAB BLOOD ORDERABLES Performing Organization Address City/[facility]/ZIP [place] [address] [place] [address] Glucose Level (07/21/2022 10:27 AM CDT)Only the most recent of4 resultswithin the time period is included. athologist Signature Glucose Level 95 70 - 99 [place] mg/dL Comment: Effective 04/19/16, the glucose reference intervals have been updated based on [place] [employer] guidelines (Standards of Medical Care in Diabetes 2016. Diabetes Care 2016; 39: S13-S22). Fasting blood glucose: Normal: 70-99 mg/dL Impaired fasting glucose (increased risk for diabetes or pre-diabetes): 100- 125 mg/dL Diabetes mellitus: >/=126 mg/dL Random blood glucose: Normal: 70-199 mg/dL Note: Random glucose >100 mg/dL is assoc iated with increased risk for diabetes Testing performed at [facility], [address] [place] [id number] Specimen Anatomical Collection Method Collection Time Receive d Time (Source) Location / / Volume Laterality Blood 07/21/2022 10:27 07/21/2022 AM CDT 10:27 AM CDT Deonna Leiva MD LAB BLOOD ORDERABLES Performing Organization Address City/[facility]/ZIP Code Phon e Number [place] [phone] [address] [place] [address] Calcium Level (07/21/2022 10:27 AM CDT)Only the most recent of4 resultswithin the time period is included. athologist Signature Calcium Lvl 9.7 8.4 - 10.2 [place] mg/dL Comment: Testing performed at [facility], [address] [place] [address] Specimen Anatomical Collection Method Collection Time Receive d Time (Source) Location / / Volume Laterality Blood 07/21/2022 10:27 07/21/2022 AM CDT 10:27 AM CDT Deonna Leiva MD LAB BLOOD ORDERABLES Performing Organization Address City/[facility] Code Phon e Number [address] Bilirubin, total (07/21/2022 10:27 AM CDT)Only the most recent of4 resultswithin the time period is included. athologist [facility] Bili Total 0.7 <=1.2 mg/dL [place] Comment: Indocyanine Green (ICG) may cause falsel y elevated bilirubin results. Total and direct bilirubin must not be measured from samples containing indocyanine green. False elevation of total bilirubin can b e seen in patients with IgG concentrations above 28 g/L. Testing performed at [facility], [address] [place] [address] Specimen Anatomical Collection Method Collection Time Receive d Time (Source) Location / / Volume Laterality Blood 07/21/2022 10:27 07/21/2022 AM CDT 10:27 AM CDT Deonna Leiva MD LAB BLOOD ORDERABLES Performing Organization Address City/[facility] Phon e Number [place] [phone] [address] [place] [address] Electrolyte Panel (07/21/2022 10:27 AM CDT)Only the most recent of4 results within the time period is included. athologist Signature Sodium Lvl 137 136 - 145 [place] mEq/L Comment: Testing performed at [facility], [address] [place] [address] Potassium Lvl 4.5 3.5 - 5.1 mEq/L [place] Comment: Testing performed at [facility], [address] [place] [address] Chloride 101 98 - 107 mEq/L [place] Comment: Testing performed at [facility], [address] [place] [address], [place] [address] CO2 27 22 - 29 mEq/L [place] Comment: Testing performed at [facility], [address] [place] [address] Anion Gap 9 4 - 14 mEq/L [place] Comment: Testing performed at [facility], [address] [place] [address] Specimen Anatomical Collection Method Collection Time Receive d Time (Source) Location / / Volume Laterality Blood 07/21/2022 10:27 07/21/2022 AM CDT 10:27 AM CDT Deonna Leiva MD LAB BLOOD ORDERABLES Performing Organization Address City/State/ZIP Code Phon e Number [facility] [place] [address] [place] [address] EKG, 12-Lead (Scheduled) (07/21/2022)Only the most recent of2 resultswithin the time period is included. Specimen (Source) Anatomical Location Collection Method / Collectio n Time Received Time / Laterality Volume Narrative This result has an attachment that is no t available. Deonna Leiva MD ECG ORDERABLES Performing Organization Address City/State/ZIP Code Phon e Number [facility] Fluoroscopy (06/19/2022 9:08 AM CDT) Specimen (Source) Anatomical Location Collection Method / Collectio n Time Received Time / Laterality Volume Narrative Systemgenerated, Documentation - 022 9:08 AM CDT This procedure requires no interpretatio n from the radiologist. Nolberto Israel MD IMG NON DI ORDERABLES after 04/22/2022 Insurance Payer Benefit Plan / Subscriber ID Effective Dates Phone Addre ss Type Group [employer] MEDICARE A[employer] MEDICARE [id number] 2019-Presen [address] Medicare PPO t [place] [id number] Advance Directives Code Status Date Activated Date Inactivated Comments Full Code 11/28/2016 11:38 AM 11/29/2016 1:23 PM Care Teams Photogrammetric Technician Relationship Specialty Start Date End Date Deonna Leiva, PCP - General Gynecologic Medical 10/30/16 MD Oncology [address] [place] [id number] Denzel Pritchett PCP - External Obstetrics/Gynecology 10/30/16 "Hattie"MD Referring [address] [place] [id number] Mateo Chavez PCP - External Primary Internal Medicine 11/08/16 MD Malena Care Provider [address] [place] [address] [phone] David Dobson Consulting Physician Cardiology 12/23/21 MD Jeremie [address] [place] [address] [id number]
--- OUTSIDE RECORDS SUMMARY | 2023-04-22 01:30 | XMS REPORT | Continuity of Care Document ---
:1950 Author Organization [facility] t Address [address] [facility]. [address] [place] [address] Care Team Providers Name Role Phone Pcp, Patient Does Not Have A Primary Care Physician [phone] Mateo Chavez Attending Clinician Unavailable SYSTEM, PROVIDER NOT IN Attending Clinician Unavailable DANA THOMAS Attending Clinician Unavailable Dana Thomas MD Attending Clinician GABI SIMON Attending Clinician Unavailable Neetu Palma Attending Clinician Nolberto Stevens MD Attending Clinician NOLBERTO STEVENS Attending Clinician Unavailable Gabi Fitzpatrick Attending Clinician SETH_Osman Attending Clinician Unavailable Kathleen Emanuel RN Attending Clinician Precious Franklin RN Attending Clinician Rhonda Buenrostro Attending Clinician Chloe Pablo RN Attending Clinician Unavailable Ely NICOLE, Vickie Vanessa Attending Clinician Unavailable Uvaldo NICOLE, Estee Attending Clinician Unavailable Pedro NICOLE, Dorinda L Attending Clinician Unavailable Pcp, Patient Does Not Have A Attending Clinician [phone] Only, Ang Db Test Attending Clinician Unavailable EbDelores Higgins Attending Clinician EBDELORES VILLAVICENCIO Attending Clinician Unavailable Doctor Unassigned, Shannon Colony Attending Clinician Unavailable Abram NICOLE, Fior Palomino Attending Clinician CHRISTIAN DRIVER Attending Clinician Unavailable Saad VUONG, Angel Attending Clinician Christian Bean Attending Clinician Unavailable Stevan NICOLE, Cherrie Burnett Attending Clinician Unavailable Mirna NICOLE, Carlos Damico Attending Clinician Unavailable Rudy PÉREZ, Neelam Attending Clinician Hudson VUONG, Star Attending Clinician Brooke Sanchez MA Attending Clinician Unavailable Susan Baird MD Attending Clinician Yoselyn NICOLE, Rosalinda Robles Attending Clinician [place] Attending Clinician Dar Rosenberg MD Attending Clinician [phone] Yasmin VUONG, Fermin Osullivan Attending Clinician Jazzmine Xiao CRNA Attending Clinician Herberth Mera MD Attending Clinician Roxi Gaytan RN Attending Clinician Unavailable Genaro Dupont Attending Clinician LOS GONSALEZ Attending Clinician Unavailable Cindy Núñez MA Attending Clinician Unavailable Sabra Perez MA Attending Clinician Unavailable REGINE CUELLAR Attending Clinician Unavailable Mateo Chavez Admitting Clinician Unavailable DANA THOMAS Admitting Clinician Unavailable SETH_Sudheer_Brian_ Admitting Clinician Unavailable REGINE CUELLAR Admitting Clinician Unavailable Payers Payer Name Policy Type Policy Number Effective Date Expiration Date S ourkait [employer]ET[employer] MEDICARE PPO [id number] 2019 00:00:00 AETNA (MEDICARE [id number] 2021 REPLACEMENT PPO) 00:00:00 Problems Condition Condition Condition Status Onset Resolution Last Treating Co mments Source Name Details Category Date Date Treatment Clinician Date Osteoarthr Osteoarthr Problem Active A zalea itis of itis of 3-28 Orthope right knee Right Knee 00:00: di c joint Joint 00 Sports Medicin e Pain of Pain of Problem Active [facility] right knee Right Knee 3-28 Or thope joint Joint 00:00: dic 00 Sports Medicin e Congestive Congestive Disease Active U nivers heart [...] of fibrillati fibrillati 00:00: t & Plan: [place] Brandon ureña of this Anderso note n [...] 5 mg p.o. 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 Left heart catheteri zation done 2 showed normal coronary arteries with only luminal irregular ities. Continue pravastat in 20 mg p.o. daily. 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 Center 11/21/2016 Body mass index is 41.48 kg/(m^2). Weight: (!) 106.2 kg (234 lb 2.1 oz) [place] body weight: 52.4 kg (115 lb 7.7 [...] of this issue. Serous Serous Disease Active [place] [facility] cystadenoc cystadenoc 2-15 it y of arcinoma, arcinoma, 00:00[place] NOS of NOS of 00 endometrclaire endometrclaire [facility] Shoulder Shoulder Problem Active Azale a joint pain Joint Pain 2-09 Or thope 00:00: dic 00 Sports Medicin e Fracture Fracture Problem Active Azale a of lower of Lower 8-03 Orthop e leg Leg 00:00: dic 00 Sports Medicin e Closed Closed Problem Active Symone fracture Fracture 6-16 Orthop e of first of First 00:00: dic metatarsal Metatarsal 00 Sp orts bone Bone Medicin e Preoperati Preoperati Disease Resolve 2022-01-01 2022-01-01 Univers ve ve d 3-22 00:00:00 18:44:24 ity of cardiovasc cardiovasc 00:00: [place] neymar mathew 00 examinatio examinatio Jazmin meza n n [facility] History of History of Disease Resolve 2021-10-28 2021-10-28 Univers malignant malignant d 4-18 00:00:00 15:19:48 ity of neoplasm neoplasm 00:00: [place] of of 00 endometrclaire endometranibalu Jazmin desai m m n [facility] Allergies, Adverse Reactions, Alerts Allergy Allergy [...] [place] reaction 00 sometime. MD orly meza [facility] Naloxone Propensi Active GI 2017-0 Univer s ty to Intolerance 3-03 ity o f adverse 00:00: [place] reaction 00 MD orly meza [facility] Opium Propensi Active GI 2017-0 Univers ty to Intolerance 3-03 ity o f adverse 00:00: [place] reaction 00 MD orly meza [facility] MORPHINE DRUG Active Med Nausea 2017-0 INGREDI 3 Anderso 00:00: n 00 NALOXONE DRUG Active Nausea 2017-0 INGREDI 3- Anderso 00:00: n 00 OPIUM DRUG Active Nausea 2017-0 INGREDI 3 Anderso 00:00: n 00 MORPHINE DRUG Active Med Nausea 2017-0 MD INGREDI 3 Anderso 00:00: n 00 NALOXONE DRUG Active [...] 00:00: n 00 Fruit Drug Active Itching 20170 Allergy Univers Punch Allergy 2-28 to most ity of Flavor 00:00: Fruits [place] 00 with Mateo Souza strawbenjie n ies, Cancer etc..... Center FRUIT DRUG Active High Hives 2017-0 MD PUNCH INGREDI 2-28 Anderso FLAVOR 00:00: n 00 [place] [address] Nausea Univers ty to Intolerance 2-15 and [...] INGREDI 2-15 Anderso 00:00: n 00 Codeine Allergy Active Symone to Orthope substanc dic e Sports Medicin e Morphine Allergy Active Symone to Orthope substanc dic e Sports Medicin e NO KNOWN Drug Active Univers ALLERGIE Class ity of S [place] [facility] Family History Family Member Diagnosis Comments Start Date Stop Date Source Natural father Heart attack [facility] MD Mendoza Estrada [facility] Natural mother Heart attack [facility] MD Mendoza Estrada [facility] [place] Natural mother Hypertension Universi ty of [place] [facility] Social History Social Habit Start Date Stop Date Quantity Comments Source History of Cigarette Smoker Universi ty of tobacco use [facility] History SDOH [facility] Alcohol Binge Medical Jessy ter History SDOH [facility] Alcohol Frequency Medical Center History SDOH [facility] Alcohol Std Medical Cente r Drinks Exposure to 2022-10-10 2022-10-20 Not sure University SARS-CoV-2 00:00:00 11:13:00 [facility] (event[facility] Alcohol intake 2018-05-10 2018-05-10 [facility]00 [facility] alcohol [facility] (finding) Alcohol Comment 2018-05-03 2018-05-[address] [facility] 00:00[facility]00 00:00:00 [facility] Tobacco use and 2016-11-21 2016-11-21 Smokeless tobacco Un iversity of exposure 00:00:00 00:00:00 non-user Virginie phelps [facility] Tobacco Comment 2016-11-08 2016-11-08 quit 30yrs ago Unive rsity of 00:00:00 00:00:00 Virginie phelps [facility] Sex Assigned At [address] [facility] 00:00[facility]00 [facility]00 [facility] Smoking Status Start Date Stop Date Source Never Smoker [facility] Tobacco smoking [facility] xa consumption unknown Medical Bran ch Ex-smoker 2016-11-21 00:00:00 2016-11-21 [place] o f Virginie VUONG 00:00:00 [facility] Medications Ordered Filled Start Stop Current Ordering Indication Dosage Frequency Signature Comments Components Source Medication Medication Date Date Medication? Clinician (SIG) Name Name dexAMETHaso Yes 4mg Take 1 Univ ers ne 6-24 tablet (4 ity of (DECADRON) 22:39: mg) by Virginie 4 mg tablet 15 mouth twice Mateo daily. 5 n days total Cancer Center traMADol 2022- No 50mg Take 1 Univer s (ULTRAM) 50 -28 11-13 tablet (50 i ty of mg tablet 05:01: 00:00 mg) by Virginie 57 :00 mouth as MD needed. Anderso [facility] letrozole 2021-09- No Metastatic 2.5mg Take 1 Univers (Femara) 10-20 cancer to tablet ity of 2.5 mg 00:00: 05:59 the (2.5 mg) [place] tablet 00 :00 peritoneum by mouth MD daily for Anderso 90 days. [facility] letrozole 2021-09- No Metastatic 2.5mg Take 1 Univers (Femara) 10-20 cancer to tablet ity of 2.5 mg 00:00: 00:00 the (2.5 mg) [place] tablet 00 :00 peritoneum by mouth MD daily for Anderso 90 days. [facility] letrozole 2021-09- No Metastatic 2.5mg Take 1 Univers (Femara) 10-20 cancer to tablet ity of 2.5 mg 00:00: 00:00 the (2.5 mg) [place] tablet 00 :00 peritoneum by mouth MD daily for Anderso 90 days. [facility] pregabalin Yes Chronic 50mg Take 1 Un ashli (Lyrica) 50 8-22 pain capsule ity o f mg capsule 00:00: (50 mg) by [place] 00 mouth MD twice Anderso daily. [facility] pregabalin Yes Chronic 50mg Take 1 Un ashli (Lyrica) 50 8-22 pain capsule ity o f mg capsule 00:00: (50 mg) by [place] 00 mouth MD twice Anderso daily. [facility] pregabalin Yes Chronic 50mg Take 1 Un ashli (Lyrica) 50 8-22 pain capsule ity o f mg capsule 00:00: (50 mg) [place] 00 mouth twice Anderso daily. [facility] metoprolol Yes Coronary TAKE ONE Univers tartrate 6-20 artery TABLET BY ity of (LOPRESSOR) 00:00: disease due MOUTH [place] 25 mg 00 to TWICE A MD tablet calcified DAY Anderso coronary n [facility] metoprolol Yes Coronary TAKE ONE Univers tartrate 6-20 artery TABLET BY ity of (LOPRESSOR) 00:00: disease due MOUTH [place] 25 mg 00 to TWICE A MD tablet calcified DAY Anderso coronary n lesion [facility] metoprolol Yes Coronary TAKE ONE Univers tartrate 6-20 artery TABLET BY ity of (LOPRESSOR) 00:00: disease due MOUTH [place] 25 mg 00 to TWICE A MD [facility] diclofenac Yes Chronic 2g Apply 2 g Univers sodium 5-19 pain topically ity of (Voltaren) 00:00: 3 (three) [place] 1 % gel 00 times a MD day. [facility] diclofenac Yes Chronic 2g Apply 2 g Univers sodium 5-19 pain topically ity of (Voltaren) 00:00: 3 (three) [place] 1 % gel 00 times a MD day. [facility] diclofenac Yes Chronic 2g Apply 2 g Univers sodium 5-19 pain topically ity of (Voltaren) 00:00: 3 (three) [place] 1 % gel 00 times a MD day. [facility] ondansetron 2021- No Metastatic Take 1 [...] Center nausea or vomiting. ondansetron 2021- No Metastatic Take 1 Univers (Zofran) 8 -14 07- cancer to tablet by ity of mg [...] Center nausea or vomiting. ondansetron 2021- No Metastatic Take 1 Univers [...] Neoplasm, Take 1 tab Univers (Zofran) 8 12-25- malignant every 8 ity of mg tablet [...] Neoplasm, Take 1 tab Univers (Zofran) 8 - 04- malignant every 8 ity of mg tablet [...] needed for Center nausea or vomiting. acetaminoph 650mg Take 650 Univers en 12-23- mg by ity of (TYLENOL) 13:01: 00:00 mouth [place] 325 mg 04 :00 every 6 MD tablet (six) Anderso hours as n needed for Cancer mild pain. Center acetaminoph No 650mg Take 650 Univers en 12-23- mg by ity of (TYLENOL) 13:01: 00:00 mouth [place] 325 mg 04 :00 every 6 MD tablet (six) Anderso hours as n needed for Cancer mild pain. Center pregabalin 2021- No Chronic 25mg Take 1 U nivers (Lyrica) 25 12-23-22 pain capsule ity of mg capsule 00:00: 00:00 (25 mg) by [place] 00 :00 mouth MD twice Anderso daily. n Cancer Center pregabalin 2021- No Chronic 25mg Take 1 U nivers (Lyrica) 25 12-23 pain capsule ity of mg capsule 00:00: 00:00 (25 mg) by [place] 00 :00 mouth MD twice Anderso daily. n Cancer Center pregabalin 2021- No Chronic 25mg Take 1 U nivers (Lyrica) 25 12-23 pain capsule ity of mg capsule 00:00: 00:00 (25 mg) by [place] 00 :00 mouth MD twice Anderso daily. [...] No Chronic 1{tbl} Take 1 Univers -acetaminop 4 04-10 pain tablet by it y of hen (NORCO) 00:00: 00:00 [place] 5 mg-325 mg 00 :00 every 8 MD per tablet (eight) [place] o hours as n needed for Cancer severe Center pain. traMADol No 50mg 50 mg Univers (ULTRAM) 50 12-20- every 6 ity of mg tablet 00:00: 00:00 (six) [place] 00 :00 hours as [facility] No 50mg 50 mg Univers (ULTRAM) 50 12-20- every 6 ity of mg tablet 00:00: 00:00 (six) [place] 00 :00 hours as MD needed. [facility] 2021- No 1{tbl} Take 1 Univ ers ORAL 3-16 03-16 tablet by ity of 13:57: 00:00 mouth [place] 12 :00 daily. MD Galindo [facility] 2021- No 1{tbl} Take 1 Univ ers ORAL 3-16 03-16 tablet by ity of 13:57: 00:00 mouth [place] 12 :00 daily. MD Galindo [facility] Jeffrey 5 Yes 5mg Take 1 Univer s mg tablet 3-14 tablet (5 ity o f 00:00: mg) by [place] 00 mouth MD twice Mateo daily. [facility] Entresto Yes 1{tbl} Take 1 Unive rs 24-26 mg 3-14 tablet by ity of tab per 00:00: mouth [place] tablet 00 twice MD daily. [facility] furosemide Yes 20mg Take 1 Unive rs (LASIX) 20 3-14 tablet by ity of mg tablet 00:00: mouth [place] 00 daily. MD Galindo [facility] spironolact Yes 50mg Take 1 Univ ers one 3-14 tablet by ity of (ALDACTONE) 00:00: mouth [place] 50 mg 00 daily. [facility] Jeffrey 5 Yes 5mg Take 1 Univer s mg tablet 3-14 tablet (5 ity o f 00:00: mg) by mouth twice Anderso daily. [facility] Entresto Yes 1{tbl} Take 1 Unive rs 24-26 mg 3-14 tablet by ity of tab per 00:00: mouth [place] tablet 00 twice MD daily. [facility] furosemide Yes 20mg Take 1 Unive rs (LASIX) 20 3-14 tablet by ity of mg tablet 00:00: mouth [place] 00 daily. [facility] spironolact Yes 50mg Take 1 Univ ers one 3-14 tablet by ity of (ALDACTONE) 00:00: mouth [place] 50 mg 00 [facility]. [facility] Eliquis 5 Yes 5mg Take 1 Univer s mg tablet 3-14 tablet (5 ity o f 00:00: mg) by mouth twice Andersbria daily. [facility] Entresto Yes 1{tbl} Take 1 Unive rs 24-26 mg 3-14 tablet by ity of tab per 00:00: mouth [place] tablet 00 twice MD daily. [facility] furosemide Yes 1{tbl} Take 1 Uni vers (LASIX) 20 3-14 tablet (20 ity of mg tablet 00:00: mg) by 00 mouth MD daily. [facility] spironolact Yes 50mg Take 1 Univ ers one 3-14 tablet (50 ity of (ALDACTONE) 00:00: mg) [place] 50 mg 00 mouth MD tablet daily. Mateo [facility] amLODIPine 2021- No 5mg Take 5 mg U nivers (NORVASC) 5 11-16 by mouth ity of mg tablet 10:20: 00:00 twice [place] 17 :00 daily. MD Galindo [facility] amLODIPine 2021- No 5mg Take 5 mg U nivers (NORVASC) 5 11-16 by mouth ity of mg tablet 10:20: 00:00 twice [place] 17 :00 daily. MD Galindo [facility] aspirin 81 2021- No 81mg Take 81 mg Univers mg EC 11-16 by mouth ity of tablet 10:19: 00:00 daily. [place] 29 :00 Reported MD fredrick Galindo 01/24/2017 [facility] aspirin 81 2021- No 81mg Take 81 mg Univers mg EC 11-16 by mouth ity of tablet 10:19: 00:00 daily. [place] 29 :00 Reported MD fredrick Galindo 01/24/2017 [facility] DIGOXIN 2021- No 125mg Take 125 Univ ers ORAL 2- 02-23 mg by ity of 10:19: 00:00 mouth [place] 20 :00 daily. MD Mateo meza [facility] DIGOXIN 2021- No 125mg Take 125 Univ ers ORAL 2-23 02-23 mg by ity of 10:19: 00:00 mouth [place] 20 :00 daily. MD Mateo meza [facility] metoprolol 2021- No Coronary 25mg Take 1 Univers tartrate 11-16-20 artery tablet (25 it y of (LOPRESSOR) 00:00: 00:00 disease due mg) by [place] 25 mg 00 :00 to mouth MD tablet calcified twice Anderso coronary daily. [facility] metoprolol 2021- No Coronary 25mg Take 1 Univers tartrate -16 03-20 artery tablet (25 it y of (LOPRESSOR) 00:00: 00:00 disease due mg) by [place] 25 mg 00 :00 to mouth MD tablet calcified twice Anderso coronary daily. [facility] ondansetron 2020-09 Yes 4mg Take 1 Univ ers (ZOFRAN) 4 1-05 tablet by ity of mg tablet 00:00: mouth [place] 00 needed. MD Mtaeo meza [facility] ondansetron 2020-09 Yes 4mg Take 1 Univ ers (ZOFRAN) 4 1-05 tablet by ity of mg tablet 00:00: mouth [place] 00 needed. MD Mateo meza [facility] ondansetron 2020-09 Yes 4mg Take 1 Univ ers (ZOFRAN) 4 1-05 tablet (4 ity of mg tablet 00:00: mg) by [place] 00 mouth as MD needed. Mateo [facility] levothyroxi 2020-09 Yes 25ug Take 1 Univ ers ne 0-15 tablet by ity of (SYNTHROID, 00:00: mouth [place] LEVOTHROID) 00 daily. 25 mcg [place] tablet [facility] famotidine 2020-09 Yes 20mg Take 1 Unive rs (PEPCID) 20 0-15 tablet by ity of mg tablet 00:00: mouth [place] 00 daily. MD Mateo meza [facility] levothyroxi 2020-09 Yes 25ug Take 1 Univ ers ne 0-15 tablet by ity of (SYNTHROID, 00:00: mouth [place] LEVOTHROID) 00 daily. 25 mcg Mateo tablet [facility] famotidine 2020-09 Yes 20mg Take 1 Unive rs (PEPCID) 20 0-15 tablet by ity of mg tablet 00:00: mouth [place] 00 daily. MD Mateo meza [facility] levothyroxi 2020-09 Yes 25ug Take 1 Univ ers ne 0-15 tablet (25 ity of (SYNTHROID, 00:00: mcg) by [place] as LEVOTHROID) 00 mouth MD 25 mcg daily. Mateo jennings [facility] famotidine 2020-09 Yes 20mg Take 1 Unive rs (PEPCID) 20 0-15 tablet (20 it y of mg tablet 00:00: mg) by [place] 00 mouth MD daily. Mateo meza [facility] traMADol 2021- No 1{tbl} Take 1 Univ ers (ULTRAM) 50 6-21 03-16 tablet by it y of mg tablet 00:00: 00:00 mouth as [place] as 00 :00 needed. MD Mateo meza [facility] traMADol 2021- No 1{tbl} Take 1 Univ ers (ULTRAM) 50 6-21 03-16 tablet by it y of mg tablet 00:00: 00:00 mouth as [place] as 00 :00 needed. MD Mateo meza [facility] pravastatin Yes 20mg Take 1 Univ ers (PRAVACHOL) 6-13 tablet by ity of 20 mg 00:00: mouth [place] tablet 00 daily. MD Mateo meza [facility] pravastatin Yes 20mg Take 1 Univ ers (PRAVACHOL) 6-13 tablet by ity of 20 mg 00:00: mouth [place] tablet 00 daily. MD Mateo meza [facility] pravastatin Yes 20mg Take 1 Univ ers (PRAVACHOL) 6-13 tablet (20 it y of 20 mg 00:00: mg) by [place] tablet 00 mouth daily. [facility] clopidogrel 2021- No 1{tbl} Take 1 U nivers (PLAVIX) 75 -08 26-16 tablet by it y of mg tablet 00:00: 00:00 mouth [place] 00 :00 daily. MD Mateo meza [facility] spironolact 2021- No 1{tbl} Take 1 U nivers one 03-0516 tablet by ity of (ALDACTONE) 00:00: 00:00 [place] 25 mg 00 :00 daily. [facility] clop[facility]rel No 1{tbl} Take 1 U nivers (PLAVIX) 75 03-05-16 tablet by it y of mg tablet 00:00: 00:00 mouth [place] 00 :00 daily. MD Mateo meza [facility] spironolact 2021- No 1{tbl} Take 1 U nivers one 03-05-16 tablet by ity of (ALDACTONE) 00:00: 00:00 [place] 25 mg 00 :00 daily. [facility] sulfamethox 2021- No 1{tbl} Take 1 U nivers azole-trime -11-16 tablet by it y of thoprim 00:00: 00:00 mouth [place] (BACTRIM 00 :00 daily. MD PATEL) 800 Anderso mg-160 mg n per tablet [facility] sulfamethox 2021- No 1{tbl} Take 1 U nivers azole-trime -12 24- tablet by it y of thoprim 00:00: 00:00 mouth [place] (BACTRIM 00 :00 daily. MD PATEL) 800 Anderso mg-160 mg n per tablet [facility] ergocalcife 2021- No [id number] 50,000 U nivers rol 12-23 Units ity of (DRISDOL) 00:00: 00:00 every 30 [place] as 50,000 00 :00 (thirty) MD units days. Mateo capsule n [facility] ergocalcife 2021- No [id number] 50,000 U nivers rol 12-23 02-23 Units ity of (DRFUNMILAYOOL) 00:00: 00:00 every 30 [place] as 50,000 00 :00 (thirty) MD units days. Mateo capsule n [facility] Center losartan 2019-09- No Univers (COZAAR) 50 10-21 03-16 ity of mg tablet 00:00: 00:00 [place] 00 :00 MD Mateo meza [facility] losartan 2019-09- No Univers (COZAAR) 50 10-21 03-16 ity of mg tablet 00:00: 00:00 [place] 00 :00 MD Mateo [facility]za [facility] aspirin 81 2017-0 Yes 81mg QD Take [address] [facility] EC 8-15 by mouth [facility] tablet 10:18: daily. Medical [address] [place] [address] atenolol 2018-0 Yes 100mg QD Take [address] (TENORMIN) 8-15 mg by [facility] 100 MG 10:18: mouth Medical tablet 40 daily. [place] chlorthalid 2018-0 Yes 25mg QD Take [address] one 8-15 by mouth [facility] (HYGROTON) 10:18: daily. Medic al 25 MG 40 Center tablet aspirin 81 [id number] Yes 81mg QD Take [address] MG EC 8-15 by mouth [facility] tablet 10:18: daily. Medical [address] [place] [address] atenolol 2018-0 Yes 100mg QD Take [address] (TENORMIN) 8-15 mg by [facility] 100 MG 10:18: mouth Medical tablet 40 daily. [place] chlorthalid 2018-0 Yes 25mg QD Take [address] one 8-15 by mouth [facility] (HYGROTON) 10:18: daily. Medic al 25 MG 40 Center tablet aspirin 81 2018-0 Yes 81mg QD Take [address] MG EC 8-15 by mouth [facility] tablet 10:18: daily. [address] atenolol 2018-0 Yes 100mg QD Take [address] (TENORMIN) 8-15 mg by [facility] 100 MG 10:18: mouth Medical tablet 40 daily. [place] chlorthalid 2018-0 Yes 25mg QD Take [address] one 8-15 by mouth [facility] (HYGROTON) 10:18: daily. Medic al 25 MG 40 Center tablet Eliquis 5 Eliquis 5 No 1 BID Eliquis 5 Symone mg tablet mg tablet mg tablet Orthope Take 1 Take 1 Take 1 dic tablet tablet tablet Sports twice a day twice a day twice a Medicin by oral by oral day by e route. route. oral route. Entresto 24 Entresto 24 No 1 BID Entresto Symone mg-26 mg mg-26 mg 24 mg-26 Ort hope tablet Take tablet Take mg tablet dic 1 tablet 1 tablet Take 1 Sport s twice a day twice a day tablet Medicin by oral by oral twice a e route. route. day by oral route. famotidine famotidine No 1 BID famotidine Symone 20 mg 20 mg 20 mg Orthope tablet Take tablet Take tablet dic 1 tablet 1 tablet Take 1 Sport s twice a day twice a day tablet Medicin by oral by oral twice a e route. route. day by oral route. furosemide furosemide No 1 Q1D furosemide Symone 20 mg 20 mg 20 mg [facility] tablet Take tablet Take tablet dic 1 tablet 1 tablet Take 1 Sport s every day every day tablet Med icin by oral by oral every day e route. route. by oral route. levothyroxi levothyroxi No 1 Q1D levothyrox Symone ne 50 mcg ne 50 mcg ine 50 mcg [facility] tablet Take tablet Take tablet dic 1 tablet 1 tablet Take 1 Sport s every day every day tablet Med icin by oral by oral every day e route. route. by oral route. metoprolol metoprolol No 1 Q1D metoprolol [facility]one succinate succinate succinate Orthope ER 25 mg ER 25 mg ER 25 mg dic tablet,exte tablet,exte tablet,ext Sports nded nded ended Medicin release 24 release 24 release 24 e hr Take 1 hr Take 1 hr Take 1 tablet tablet tablet every day every day every day by oral by oral by oral route. route. route. pravastatin pravastatin No 1 Q1D pravastati [facility] 20 mg 20 mg n 20 mg [facility] tablet Take tablet Take tablet dic 1 tablet 1 tablet Take 1 Sport s every day every day tablet Med icin by oral by oral every day e route. route. by oral route. pregabalin pregabalin No 1capsul TID pregabalin [facility] 50 mg 50 mg e(s) 50 mg [facility] capsule capsule capsule dic Take 1 Take 1 Take 1 Sports capsule 3 capsule 3 capsule 3 Medicin times a day times a day times a e by oral by oral day by route. route. oral route. prochlorper prochlorper No 1 TID prochlorpe [facility] azine azine razine [facility] maleate 10 maleate 10 maleate 10 dic mg tablet mg tablet mg tablet Sports Take 1 Take 1 Take 1 Medicin tablet 3 tablet 3 tablet 3 e times a day times a day times a by oral by oral day by route. route. oral route. spironolact spironolact No 1 Q1D spironolac [facility] one 50 mg one 50 mg tone 50 mg [facility] tablet Take tablet Take tablet dic 1 tablet 1 tablet Take 1 Sport s every day every day tablet Med icin by oral by oral every day e route. route. by oral route. Immunizations Ordered Filled Immunization Date Status Comments [facility] e Immunization Name Name [facility] SARS-CoV-2 2021-05-14 Completed [facility] of Vaccination (Purple 00:00:00 [facility] SARS-CoV-2 2021-05-14 Completed Univer sity of Vaccination (Purple 00:00:00 [facility]) [facility] SARS-CoV-2 2021-05-14 Completed [facility] of Vaccination (Purple 00:00:00 [facility]) [facility] SARS-CoV-2 2021-04-25 Completed [facility]iver s[facility] of Vaccination (Purple 00:00:00 [facility]) [facility] SARS-CoV-2 2021-04-25 Completed [facility] of Vaccination (Purple 00:00:00 [facility]) [facility] SARS-CoV-2 2021-04-25 Completed Univer sity of Vaccination (Purple 00:00:00 [facility]) [facility] Vital Signs Vital Name Observation Time Observation Value Comments Source Height 2022-12-19 00:00:00 64 [in_i] [facility] BMI (Body Mass 2022-12-19 00:00:00 37.1 kg/m2 [facility] Index) Sports Medicine Body Weight 2022-12-19 00:00:00 216 [lb_av] [facility] Body weight 2023-04-20 13:04:00 96.9 kg [facility] BMI 2023-04-20 13:04:00 37.85 kg/m2 [facility] Systolic blood 2023-04-20 13:02:27 141 mm[Hg] [facility] Diastolic blood 2023-04-20 13:02:27 89 mm[Hg] [facility] Heart rate 2023-04-20 13:02:27 73 /min [facility] Body temperature 2023-04-20 13:02:27 36.61 Clarisse [facility] Respiratory rate 2023-04-20 13:02:27 18 /min [facility] Body height 2023-04-19 18:29:00 160 cm [facility] Systolic blood 2022-10-20 17:23:00 108 mm[Hg] Univer [...] 76 mm[Hg] [facility]ive [facility] Heart rate 2022-08-14 15:09:34 70 /min [facility] [place] [facility] Body temperature 2022-08-14 15:09:34 36.39 Clarisse [facility] [place] [facility] Respiratory rate 2022-08-14 15:09:34 18 /min [facility] Body weight 2022-08-14 15:09:34 100.7 kg [facility] [place] [facility] BMI 2022-08-14 15:09:34 38.61 kg/m2 [facility] [place] [facility] Oxygen saturation in 2022-03-17 14:50:26 96 /min [facility] Arterial blood by [facility]ie felder Pulse oximetry [facility] Procedures Procedure Date / Time Performing Clinician Source Performed CANCER ANTIGEN 125 2023-04-20 12:22:00 Gabi Simon [facility] PETCT SUBSEQUENT TREATMENT 2023-04-19 20:00:36 Rhonda Carty [facility] CANCER ANTIGEN 125 2023-01-18 14:49:00 Rhonda Carty [facility] XR, knee, 1 or 2 view 2022-12-19 00:00:00 [facility] PAIN MANAGEMENT ULTRASOUND 2022-11-30 19:24:21 Nolberto Stevens [facility] PETCT SUBSEQUENT TREATMENT 2022-10-19 16:16:00 Rhonda Carty [facility] CANCER ANTIGEN 125 2022-10-19 14:09:00 Rhonda Carty [facility] CANCER ANTIGEN 125 2022-07-21 15:27:24 Dana Thomas [facility] COMPLETE BLOOD COUNT W/ 2022-07-21 15:27:24 Dana Thomas [facility] BASIC METABOLIC PANEL, 2022-07-21 15:27:24 Dana Thomas [facility] CALCIUM TOTAL [facility] BILIRUBIN TOTAL 2022-07-21 15:27:24 Dana Thomas [facility] ALANINE AMINOTRANSFERASE 2022-07-21 15:27:24 Dana Thomas [facility] ASPARTATE AMINOTRANSFERASE 2022-07-21 15:27:24 Dana Thomas [facility] MAGNESIUM LEVEL 2022-07-21 15:27:24 Dana Thomas [facility] GLUCOSE LEVEL 2022-07-21 15:27:24 Dana Thomas [facility] BLOOD UREA NITROGEN 2022-07-21 15:27:24 [facility] ELECTROLYTE PANEL 2022-07-21 15:27:24 Dana Thomas [facility] SERUM CREATININE 2022-07-21 15:27:24 Dana Thomas [facility] .GLOMERULAR FILTRATION 2022-07-21 15:27:24 Dana Thomas [facility] RATE [facility] CALCIUM LEVEL TOTAL 2022-07-21 15:27:24 Dana Thomas [facility] Results CBC 2022-07-21 15:27:24 Dana Thomas [facility] MANUAL DIFFERENTIAL 2022-07-21 15:27:24 Dana Thomas [facility] EKG, 12-LEAD (SCHEDULED) 2022-07-21 00:00:00 Dana Thomas [facility] PETCT SUBSEQUENT TREATMENT 2022-07-20 15:24:27 [facility] 125 2022-06-23 18:39:37 [facility] COMPLETE BLOOD COUNT W/ 2022-06-23 18:39:37 [facility] DIFFERENTIAL [facility] BASIC METABOLIC PANEL, 2022-06-23 18:39:37 Dana Thomas [facility] [place] CALCIUM TOTAL [facility] BILIRUBIN TOTAL 2022-06-23 18:39:37 Dana Thomas [facility] ALANINE AMINOTRANSFERASE 2022-06-23 18:39:37 Dana Thomas [facility] ASPARTATE AMINOTRANSFERASE 2022-06-23 18:39:37 Dana Thomas [facility] MAGNESIUM LEVEL 2022-06-23 18:39:37 Dana Thomas [facility] GLUCOSE LEVEL 2022-06-23 18:39:37 Dana Thomas [facility] BLOOD UREA NITROGEN 2022-06-23 18:39:37 [facility] ELECTROLYTE PANEL 2022-06-23 18:39:37 Dana Thomas [facility] SERUM CREATININE 2022-06-23 18:39:37 Dana Thomas [facility] .GLOMERULAR FILTRATION 2022-06-23 18:39:37 [facility] [place] [facility] CALCIUM LEVEL TOTAL 2022-06-23 18:39:37 [facility] Results CBC 2022-06-23 18:39:37 Dana Thomas [facility] MANUAL DIFFERENTIAL 2022-06-23 18:39:37 Daan Thomas [facility] PAIN MANAGEMENT 2022-06-19 14:08:16 Nolberto Stevens [facility] CANCER ANTIGEN 125 2022-05-26 14:02:00 Rhonda Carty [facility] COMPLETE BLOOD COUNT W/ 2022-05-26 14:02:00 Rhonda Carty [facility] DIFFERENTIAL [facility] BASIC METABOLIC PANEL, 2022-05-26 14:02:00 Rhonda Carty [facility] CALCIUM TOTAL [facility] BILIRUBIN TOTAL 2022-05-26 14:02:00 Machelle Rhonda [facility] ALANINE AMINOTRANSFERASE 2022-05-26 14:02:00 Rhonda Carty [facility] ASPARTATE AMINOTRANSFERASE 2022-05-26 14:02:00 [facility] MAGNESI[facility] L[facility]EL 2022-05-26 14:02:00 Machelle Rhonda [facility] GLUCOSE LEVEL 2022-05-26 14:02:00 Machelle Rhonda [facility] BLOOD UREA NITROGEN 2022-05-26 14:02:00 Rhonda Carty [facility] ELECTROLYTE PANEL 2022-05-26 14:02:00 Machelle Rhonda [facility] SERUM CREATININE 2022-05-26 14:02:00 Machelle Rhonda [facility] .GLOMERULAR FILTRATION 2022-05-26 14:02:00 [facility] RATE [facility] CALCIUM LEVEL TOTAL 2022-05-26 14:02:00 Rhonda Carty [facility] Results CBC 2022-05-26 14:02:00 Rhonda Carty [facility] MANUAL DIFFERENTIAL 2022-05-26 14:02:00 Rhonda Carty [facility] EKG, 12-LEAD (SCHEDULED) 2022-05-26 00:00:00 Rhonad Carty [facility] CANCER ANTIGEN 125 2022-04-26 12:19:00 [facility] COMPLETE BLOOD COUNT W/ 2022-04-26 12:19:00 Dana [facility] DIFFERENTIAL [facility] BASIC METABOLIC PANEL, 2022-04-26 12:19:00 Dana Thomas [facility] [place] CALCIUM TOTAL [facility] BILIRUBIN TOTAL 2022-04-26 12:19:00 Dana Thomas [facility] ALANINE AMINOTRANSFERASE 2022-04-26 12:19:00 Dana Thomas [facility] ASPARTATE AMINOTRANSFERASE 2022-04-26 12:19:00 Dana Thomas [facility] MAGNESIUM LEVEL 2022-04-26 12:19:00 Dana Thomas [facility] GLUCOSE LEVEL 2022-04-26 12:19:00 Dana Thomas [facility] BLOOD UREA NITROGEN 2022-04-26 12:19:00 [facility] ELECTROLYTE PANEL 2022-04-26 12:19:00 Dana Thomas [facility] SERUM CREATININE 2022-04-26 12:19:00 Dana Thomas [facility] .GLOMERULAR FILTRATION 2022-04-26 12:19:00 Dana [facility] [place] RATE [facility] CALCIUM LEVEL TOTAL 2022-04-26 12:19:00 [facility] Results CBC 2022-04-26 12:19:00 Dana Thomas [facility] MANUAL DIFFERENTIAL 2022-04-26 12:19:00 [facility] CT CHEST ABDOMEN PELVIS W 2022-04-20 18:27:43 [facility] POC CREATININE 2022-04-20 17:39:00 Unke, [facility] o [facility] ASSIGNMENT OF BENEFITS 2022-04-06 20:28:52 Doctor Unassigned, No [facility] SERUM CREATININE 2022-03-17 12:42:58 Christian Driver [facility] .GLOMERULAR FILTRATION 2022-03-17 12:42:58 Christian Driver [facility] RATE [facility] CALCIUM LEVEL TOTAL 2022-03-17 12:42:58 Christian Driver [facility] Results CBC 2022-03-17 12:42:58 Christian Driver [place] [facility] MANUAL DIFFERENTIAL 2022-03-17 12:42:58 Christian Driver [facility] CANCER ANTIGEN 125 2022-03-17 12:42:58 Christian Driver [facility] COMPLETE BLOOD COUNT W/ 2022-03-17 12:42:58 Christian Driver [facility] DIFFERENTIAL [facility] BASIC METABOLIC PANEL, 2022-03-17 12:42:58 Christian Driver [facility] CALCIUM TOTAL [facility] BILIRUBIN TOTAL 2022-03-17 12:42:58 Christian Driver [place] o [facility] ALANINE AMINOTRANSFERASE 2022-03-17 12:42:58 Christian Driver [facility] ASPARTATE AMINOTRANSFERASE 2022-03-17 12:42:58 Christian Driver [facility] MAGNESIUM LEVEL 2022-03-17 12:42:58 Christian Driver [place] [facility] GLUCOSE LEVEL 2022-03-17 12:42:58 Christian Driver [place] [facility] BLOOD UREA NITROGEN 2022-03-17 12:42:58 Christian Driver [facility] ELECTROLYTE PANEL 2022-03-17 12:42:58 Christian Driver [facility] EKG, 12-LEAD (SCHEDULED) 2022-03-17 00:00:00 Dana Thomas [facility] CANCER ANTIGEN 125 2022-02-17 16:57:28 Dana Thomas [facility] COMPLETE BLOOD COUNT W/ 2022-02-17 16:57:28 Dana Thomas [facility] DIFFERENTIAL [facility] BASIC METABOLIC PANEL, 2022-02-17 16:57:28 Dana Thomas [facility] [place] CALCIUM TOTAL [facility] BILIRUBIN TOTAL 2022-02-17 16:57:28 Dana Thomas [facility] ALANINE AMINOTRANSFERASE 2022-02-17 16:57:28 Dana Thomas [facility] ASPARTATE AMINOTRANSFERASE 2022-02-17 16:57:28 Dana Thomas [facility] MAGNESIUM LEVEL 2022-02-17 16:57:28 Dana Thomas [facility] GLUCOSE LEVEL 2022-02-17 16:57:28 Dana Thomas [facility] BLOOD UREA NITROGEN 2022-02-17 16:57:28 Dana Thomas [facility] ELECTROLYTE PANEL 2022-02-17 16:57:28 Dana Thomas [facility] SERUM CREATININE 2022-02-17 16:57:28 Dana Thomas [facility] .GLOMERULAR FILTRATION 2022-02-17 16:57:28 Dana [facility] [place] [facility] CALCIUM LEVEL TOTAL 2022-02-17 16:57:28 Dana Thomas [facility] Results CBC 2022-02-17 16:57:28 Dana Thomas [facility] MANUAL DIFFERENTIAL 2022-02-17 16:57:28 Dana Thomas [facility] CANCER ANTIGEN 125 2022-02-10 15:36:00 Dana Thomas [facility] COMPLETE BLOOD COUNT W/ 2022-02-10 15:36:00 Dana Thomas [facility] DIFFERENTIAL [facility] BASIC METABOLIC PANEL, 2022-02-10 15:36:00 Dana Thomas [facility] [place] CALCIUM TOTAL [facility] BILIRUBIN TOTAL 2022-02-10 15:36:00 Dana Thomas [facility] ALANINE AMINOTRANSFERASE 2022-02-10 15:36:00 Dana Thomas [facility] ASPARTATE AMINOTRANSFERASE 2022-02-10 15:36:00 Dana Thomas [facility] MAGNESIUM LEVEL 2022-02-10 15:36:00 Dana Thomas [facility] GLUCOSE LEVEL 2022-02-10 15:36:00 Dana Thomas [facility] BLOOD UREA NITROGEN 2022-02-10 15:36:00 [facility] ELECTROLYTE PANEL 2022-02-10 15:36:00 Dana Thomas [facility] SERUM CREATININE 2022-02-10 15:36:00 Dana Thomas [facility] .GLOMERULAR FILTRATION 2022-02-10 15:36:00 Dana Thomas [facility] [place] R[facility] CALCIUM LEVEL TOTAL 2022-02-10 15:36:00 [facility] Results CBC 2022-02-10 15:36:00 Dana Thomas [facility] MANUAL DIFFERENTIAL 2022-02-10 15:36:00 [facility] CANCER ANTIGEN 125 2022-01-13 11:51:00 Dana Thomas [facility] COMPLETE BLOOD COUNT W/ 2022-01-13 11:51:00 Dana Thomas [facility] DIFFERENTIAL [facility] BASIC METABOLIC PANEL, 2022-01-13 11:51:00 Dana Thomas [facility] [place] CALCIUM TOTAL [facility] BILIRUBIN TOTAL 2022-01-13 11:51:00 Dana Thomas [facility] ALANINE AMINOTRANSFERASE 2022-01-13 11:51:00 Dana Thomas [facility] ASPARTATE AMINOTRANSFERASE 2022-01-13 11:51:00 Dana Thomas [facility] MAGNESIUM LEVEL 2022-01-13 11:51:00 Dana Thomas [facility] GLUCOSE LEVEL 2022-01-13 11:51:00 Dana Thomas [facility] BLOOD UREA NITROGEN 2022-01-13 11:51:00 [facility] ELECTROLYTE PANEL 2022-01-13 11:51:00 Dana Thomas [facility] SERUM CREATININE 2022-01-13 11:51:00 Dana Thomas [facility] .GLOMERULAR FILTRATION 2022-01-13 11:51:00 Dana Thomas [facility] [place] RATE [facility] CALCIUM LEVEL TOTAL 2022-01-13 11:51:00 [facility] Results CBC 2022-01-13 11:51:00 Dana Thomas [facility] MANUAL DIFFERENTIAL 2022-01-13 11:51:00 [facility] PAIN MANAGEMENT 2022-01-05 18:24:08 Nolberto Stevens [facility] FLUOROSCOPY [facility] CT CHEST ABDOMEN PELVIS W 2021-12-30 16:23:53 Christian Driver [facility] [place] CONTRAST [facility] HEPATIC FUNCTION PANEL 2021-12-30 14:38:00 Christian Driver [facility] rsity of [facility] ALBUMIN LEVEL 2021-12-30 14:38:00 Christian Driver [place] o f [facility] ALANINE AMINOTRANSFERASE 2021-12-30 14:38:00 Christian Driver Uni versity of [facility] ASPARTATE AMINOTRANSFERASE 2021-12-30 14:38:00 Christian Driver [facility] TOTAL PROTEIN 2021-12-30 14:38:00 Christian Driver [place] o f [facility] FRACTIONATED BILIRUBIN 2021-12-30 14:38:00 Christian Driver [facility] rsity of [facility] ALKALINE PHOSPHATASE 2021-12-30 14:38:00 Christian Driver [facility] POC CREATININE 2021-12-30 14:37:00 Christian Driver [place] [facility] US ABDOMEN LIMITED 2021-12-30 14:00:00 Christian Driver [facility] CANCER ANTIGEN 125 2021-12-23 16:48:00 Christian Driver [facility] COMPLETE BLOOD COUNT W/ 2021-12-23 16:48:00 Christian Driver [facility] DIFFERENTIAL [facility] BASIC METABOLIC PANEL, 2021-12-23 16:48:00 Christian Driver [facility] CALCIUM TOTAL [facility] BILIRUBIN TOTAL 2021-12-23 16:48:00 Christian Driver [place] [facility] ALANINE AMINOTRANSFERASE 2021-12-23 16:48:00 Christian Driver [facility] ASPARTATE AMINOTRANSFERASE 2021-12-23 16:48:00 [facility] MAGNESIUM LEVEL 2021-12-23 16:48:00 Christian Driver [place] [facility] GLUCOSE LEVEL 2021-12-23 16:48:00 Christian Driver [place] [facility] BLOOD UREA NITROGEN 2021-12-23 16:48:00 Christian Driver [facility] ELECTROLYTE PANEL 2021-12-23 16:48:00 Christian Driver [facility] SERUM CREATININE 2021-12-23 16:48:00 Christian Driver [facility] .GLOMERULAR FILTRATION 2021-12-23 16:48:00 Christian Driver [facility] [place] RATE [facility] CALCIUM LEVEL TOTAL 2021-12-23 16:48:00 Christian Driver [facility] Results CBC 2021-12-23 16:48:00 Christian Driver [facility] MANUAL DIFFERENTIAL 2021-12-23 16:48:00 Christian Driver [facility] EKG, 12-LEAD (SCHEDULED) 2021-12-14 00:00:00 Neelam Grant [facility] COMBINED RIGHT AND LEFT 2021-11-28 16:10:48 Angel Nash [facility] HEART CATH [facility] POC OXIMETRY VENOUS 2021-11-28 15:44:00 Angel Nash [facility] POC OXIMETRY ARTERIAL 2021-11-28 15:35:00 Angel Nash [facility] POC GLUCOSE SCREEN 2021-11-28 14:47:00 Angel Nash [facility] TYPE AND SCREEN 2021-11-28 13:41:00 Star Treviño [facility] ABORH 2021-11-28 13:41:00 Star Treviño [facility] ANTIBODY SCREEN 2021-11-28 13:41:00 Star Treviño [facility] TMP INTERPRETATION 2021-11-28 13:41:00 Star Treviño [facility] ANTIBODY SCREEN NEGATIVE MD [facility] CLOT EXPIRATION DATE 2021-11-28 13:41:00 Star Treviño [facility] ECHOCARDIOGRAM 2D COMPLETE 2021-11-21 13:51:52 Angel Nash [facility] GENERAL LABORATORY ADD ON 2021-11-18 19:50:00 Susan Baird [facility] TEST [facility] COVID-19 (SARS-COV-2) 2021-11-18 18:07:00 Dana Thomas [facility] PCR-ASYMPTOMATIC [facility] URINE CULTURE 2021-11-18 17:36:00 Dana Thomas [facility] URINALYSIS WITH 2021-11-18 17:36:00 Dana Thomas [facility] MICROSCOPIC IF INDICATED MD Ferr[facility] URINALYSIS MICROSCOPIC 2021-11-18 17:36:00 Dana Thomas [facility] CANCER ANTIGEN 125 2021-11-18 17:23:00 Dana Thomas [facility] COMPLETE BLOOD COUNT W/ 2021-11-18 17:23:00 Dana Thomas [facility] DIFFERENTIAL [facility] COMPREHENSIVE METABOLIC 2021-11-18 17:23:00 Dana Thomas [facility] PANEL [facility] PROTHROMBIN TIME 2021-11-18 17:23:00 Dana Thomas [facility] APTT 2021-11-18 17:23:00 Dana Thomas [facility] Results CBC 2021-11-18 17:23:00 Dana Thomas [facility] MANUAL DIFFERENTIAL 2021-11-18 17:23:00 Dana Thomas [facility] GLUCOSE LEVEL 2021-11-18 17:23:00 Dana Thomas [facility] BLOOD UREA NITROGEN 2021-11-18 17:23:00 [facility] ELECTROLYTE PANEL 2021-11-18 17:23:00 Dana Thomas [facility] SERUM CREATININE 2021-11-18 17:23:00 [facility] .GLOMERULAR FILTRATION 2021-11-18 17:23:00 Dana Thomas [facility] RATE [facility] CALCIUM LEVEL TOTAL 2021-11-18 17:23:00 Dana Thomas [facility] ALBUMIN LEVEL 2021-11-18 17:23:00 Dana Thomas [facility] ALKALINE PHOSPHATASE 2021-11-18 17:23:00 Dana Thomas [facility] ALANINE AMINOTRANSFERASE 2021-11-18 17:23:00 Dana Thomas [facility] ASPARTATE AMINOTRANSFERASE 2021-11-18 17:23:00 Dana Thomas [facility] TOTAL PROTEIN 2021-11-18 17:23:00 Dana Thomas [facility] FRACTIONATED BILIRUBIN 2021-11-18 17:23:00 [facility] 2021-11-18 17:23:00 Dana Thomas [facility] HORMONE [facility] FREE THYROXINE 2021-11-18 17:23:00 Dana Thomas [facility] Center TYPE AND SCREEN 2021-11-18 17:15:00 Dana Thomas [facility] HEMOGLOBIN A1C 2021-11-18 17:15:00 Dana Thomas [facility] ABORH 2021-11-18 17:15:00 Dana Thomas [facility] ANTIBODY SCREEN 2021-11-18 17:15:00 Dana Thomas [facility] TMP INTERPRETATION 2021-11-18 17:15:00 Dana Thomas [facility] ANTIBODY SCREEN NEGATIVE MD [facility] CLOT EXPIRATION DATE 2021-11-18 17:15:00 Dana Thomas [facility] EKG, 12-LEAD (SCHEDULED) 2021-11-16 00:00:00 Los Gonsalez [facility] US BREAST COMPLETE 2021-11-04 19:27:00 Christian Driver [facility] BILATERAL [facility] Center US CHEST 2021-11-04 19:27:00 [facility] o [facility] MAMMO DIGITAL DIAGNOSTIC 2021-11-04 18:27:05 Christian Driver [facility] BILATERAL W OSWALDO [facility] HP MD MICROSATELLITE 2021-10-27 01:03:00 Dana Thomas [facility] INSTABILITY (MSI) ANALYSIS MD Jazmin ackerman Cancer INTERPRETATION AND REPORT Center IR CT GUIDED BIOPSY PELVIC 2021-10-25 19:03:06 Dana Thomas [facility] NON-BONE [facility] CYTOLOGY IMAGE-GUIDED FNA 2021-10-25 18:08:00 Dana Thomas [facility] INTERPRETATION [facility] PATHOLOGY BIOPSY 2021-10-25 18:07:00 Dana Thomas [facility] INTERPRETATION [facility] EKG, 12-LEAD (PORTABLE) 2021-10-25 00:00:00 Genaro Mcclelland [facility] COMPLETE BLOOD COUNT W/ 2021-10-24 15:56:00 Los Gonsalez [facility] DIFFERENTIAL [facility] CARBON DIOXIDE LEVEL 2021-10-24 15:56:00 Los Gonsalez [facility] CHLORIDE LEVEL 2021-10-24 15:56:00 Ting [facility] SODIUM LEVEL 2021-10-24 15:56:00 Ting [facility] POTASSIUM LEVEL 2021-10-24 15:56:00 Ting [facility] SERUM CREATININE 2021-10-24 15:56:00 Ting [facility] BLOOD UREA NITROGEN 2021-10-24 15:56:00 Ting [facility] PROTHROMBIN TIME 2021-10-24 15:56:00 Ting [facility] GLUCOSE, RANDOM 2021-10-24 15:56:00 Ting [facility] TYPE AND SCREEN 2021-10-24 15:56:00 Ting [facility] Results CBC 2021-10-24 15:56:00 Ting [facility] MANUAL DIFFERENTIAL 2021-10-24 15:56:00 Ting [facility] SERUM CREATININE 2021-10-24 15:56:00 Ting [facility] .GLOMERULAR FILTRATION 2021-10-24 15:56:00 Ting [facility] RATE [facility] ABORH 2021-10-24 15:56:00 Ting [facility] ANTIBODY SCREEN 2021-10-24 15:56:00 Ting [facility] ANION GAP 2021-10-24 15:56:00 Ting [facility] TMP INTERPRETATION 2021-10-24 15:56:00 Ting [facility] ANTIBODY SCREEN NEGATIVE MD Ferraro [facility] CLOT EXPIRATION DATE 2021-10-24 15:56:00 Ting Los [facility] COVID-19 (SARS-COV-2) 2021-10-24 15:53:00 Fermin Hoffman [facility] PCR-ASYMPTOMATIC [facility] AP IHC MSI (MLH1, MSH2, 2021-10-16 22:50:59 Dana Thomas [facility] MSH6, PMS2) MATERIAL [facility] AP IHC HER2/KIMMIE MATERIAL 2021-10-16 22:50:59 Dana Thomas [facility] REQUEST [facility] AP MSI BY PCR MATERIAL 2021-10-16 22:50:59 Dana Thomas [facility] REQUEST [facility] CT CHEST ABDOMEN PELVIS W 2021-10-13 14:37:33 [facility] POC CREATININE 2021-10-13 13:55:00 Christian Driver [place] [facility] OSI BONE DENSITY STUDY 2021-10-07 22:29:00 Mateo Chavez [facility] OSI MAMMO BILATERAL 2021-10-07 22:29:00 Mateo [facility] PATHOLOGY BIOPSY 2021-09-30 19:11:00 Christian Driver [facility] INTERPRETATION [facility] CANCER ANTIGEN 125 2021-09-30 17:35:00 Christian Driver [facility] Cancer [facility] Eye [facility] Gallbladder Surgery [facility] Hysterectomy [facility] Plan of Care Planned Activity Planned Date Details Comments Source Future Scheduled 2023-04-20 COVID-19 Vaccination [facility] [place] Test 08:30:56 (3 - Pfizer risk MD [facility]) [code = Center COVID-19 Vaccination (3 - Pfizer risk series)] Future Scheduled 2022-11-10 COVID-19 Vaccination Uni versity [...] Date/Time Type Type Clinicians Facility Department ID 2023-03-06 Outpatient WALT Chavez [facility] [id number] Common 10:23:[address] 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 14:40:[address] [facility] 2023-04-20 2023-04-20 Follow-Up Cali, 1.2.840.1 [id number] [facility] 09:30:00 09:30:00 Dana Cali 34575.1.1 it y of 3.412.2.7 [place] .3.688288 .8 [facility] 2023-04-20 2023-04-20 Outpatient KYLER THOMAS MDA MDA [id number] 07:43:03 08:45:08 DANA meza 2023-04-20 2023-04-20 Outpatient GABI PITTS MDA [facility] [id number] 07:22:25 07:36:28 Mitchell o susana 2023-04-20 2023-04-20 Travel 1.2.840.1 1.2.262.029 [id number] [facility] 00:00:00 00:00:00 37055.1.1 350.1.13.41 ity of 3.412.2.7 [place].698 [place].36[place] 084.8 .8 [facility] 2023-04-19 2023-04-19 Ancillary Hailey Thomas.2.840.1 [id number] Univers 13:00:00 15:30:00 Procedure Dana Cali 21479.1.1 ity of 3.412.2.7 [place] .3.146066 MD Sainz8 [facility] 2023-04-19 2023-04-19 Outpatient KYELR THOMAS MDA MDA [id number] 13:15:52 13:15:52 DANA meza 2023-04-02 2023-04-02 Orders Vu, 1.2.840.1 [id number] Univers 00:00:00 00:00:00 Only Neetu 84150.1.1 ity of [place] 3.412.2.7 [place] .3.658338 .8 [facility] 2023-04-02 2023-04-02 Orders Vu, 1.2.840.1 [id number] Univers 00:00:00 00:00:00 Only Neetu 29937.1.1 ity of [place] 3.412.2.7 [place] .3.929117 MD Barajas [facility] 2023-03-15 2023-03-15 Follow-Up Hilda, 1.2.840.1 [id number] Univers 09:30:00 10:09:29 Nolberto Negrete 46914.1.1 it y of 3.412.2.7 [place] .3.692279 MD Barajas [facility] 2023-03-15 2023-03-15 Outpatient KYLER STEVENS MDA [facility] [id number] 09:12:32 10:09:29 NOLBERTO meza 2023-03-15 2023-03-15 Travel 1.2.840.1 1.2.453.362 [id number] [id number] Univers 00:00:00 00:00:00 28932.1.1 350.1.13.41 ity of 3.412.2.7 [place].3.698 [place]3.74[place] 084.8 .8 [facility] 2023-01-19 2023-01-19 Outpatient KYLER THOMAS MDA MDA [id number] 10:17:54 11:17:50 DANA meza 2023-01-19 2023-01-19 Follow-Up Dana Thomas 1.2.840.1 [id number] [facility] 10:00:00 11:17:50 aGbi Simon 40426.1.1 ity of 3.412.2.7 [place] .3.218548 .8 [facility] 2023-01-19 2023-01-19 Travel 1.2.840.1 1.2.517.035 6697 [id number] [facility] 00:00:00 00:00:00 99055.1.1 350.1.13.41 ity of 3.412.2.7 [place]7.3.698 [place]3.197640 084.8 MD Sainz8 [facility] 2023-01-18 2023-01-18 Outpatient KYLER THOMAS MDA [facility] [id number] 09:48:49 09:57:24 DANA meza 2022-12-19 2022-12-19 Outpatient FOG_Burke_R AOSM AOSM [id number] Symone 00:00:00 00:00:00 Darius [id number] [facility] 2022-12-19 2022-12-19 [facility] 00:00:00 00:00:00 Odalis Gurrola - [place]: [id number] FOG_Ofc dic [facility], Medici n [address], [place] [address] , Ph. [phone] 2022-12-13 2022-12-13 Outpatient FOG_Burke_R AOSM AOSM [id number] Symone 00:00:00 00:00:00 Darius [id number] [facility] 2022-12-13 2022-12-13 Outpatient FOG_Burke_R AOSM AOSM [id number] Symone 00:00:00 00:00:00 Darius [id number] [facility] 2022-12-13 2022-12-13 Outpatient FOG_Burke_R AOSM AOSM [id number] Symone 00:00:00 00:00:00 Darius [id number] [facility] 2022-12-12 2022-12-12 Outpatient FOG_Burke_R AOSM AOSM [id number] Symone 00:00:00 00:00:00 Darius [id number] [facility] 2022-12-08 2022-12-08 Telephone Jenae, 1.2.840.1 [id number] Univers 00:00:00 00:00:00 Kathleen Tonya 33245.1.1 it y of 3.412.2.7 [place] .3.151173 MD Sainz8 [facility] 2022-11-30 2022-11-30 Procedure Hilda 1.2.840.1 [id number] [facility] 13:00:00 14:13:08 visit Nolberto Negrete 10573.1.1 it y of 3.412.2.7 [place] .3.861708 MD Sainz8 [facility] 2022-11-30 2022-11-30 Outpatient KYLER FLOYDDADILLON Meza MDA [id number] 12:48:30 14:13:08 NOLBERTO meza 2022-11-30 2022-11-30 Outpatient KYLER FLOYDDADILLON Meza MDA [id number] 13:24:21 13:24:21 NOLBERTO meza 2022-11-30 2022-11-30 Travel 1.2.840.1 1.2.594.273 4802 [id number] Univers 00:00:00 00:00:00 12300.1.1 350.1.13.41 ity of 3.412.2.7 [place]7.3.698 [place] .3.059[place] 084.8 MD Sainz8 [facility] 2022-11-27 2022-11-27 Telephone Rigoberto, 1.2.840.1 [id number] [facility] 00:00:00 00:00:00 Precious 30410.1.1 it y of 3.412.2.7 [place] .3.493902 MD Barajas [facility] 2022-11-13 2022-11-13 Follow-Up Hilda, 1.2.840.1 [id number] Univers 09:30:00 10:00:00 Nolberto Negrete 55320.1.1 it y of 3.412.2.7 [place] .3.420795 MD Sainz8 [facility] 2022-11-13 2022-11-13 Outpatient KYLER HILDA, DILLON MDA [id number] MD 09:16:07 09:16:07 NOLBERTO meza 2022-11-13 2022-11-13 Travel 1.2.840.1 1.2.125.947 5593 [id number] [facility] 00:00:00 00:00:00 70208.1.1 350.1.13.41 ity of 3.412.2.7 [place]7.3.698 [place] .3.532757 084.8 MD Barajas [facility] 2022-10-20 2022-10-20 Follow-Up Thomas, 1.2.840.1 [id number] Univers 11:00:00 12:07:35 Dana Cali 42775.1.1 it y of 3.412.2.7 [place] .3.300929 MD Barajas [facility] 2022-10-20 2022-10-20 Follow-Up KYLER Thomas, 1.2.840.1 [id number] Univers 11:00:00 12:07:35 Dana Cali 51754.1.1 it y of 3.412.2.7 [place] .3.462506 MD Barajas [facility] 2022-10-20 2022-10-20 Travel 1.2.840.1 1.2.557.901 3382 [id number] Univers 00:00:00 00:00:00 65492.1.1 350.1.13.41 ity of 3.412.2.7 [place]7.3.698 [place] .3.508504 084.8 MD Sainz8 [facility] 2022-10-20 2022-10-20 Travel 1.2.840.1 1.2.451.745 8278 [id number] Univers 00:00:00 00:00:00 77783.1.1 350.1.13.41 ity of 3.412.2.7 [place].7.3.698 [place] .3.782457 084.8 .8 [facility] 2022-10-19 2022-10-19 [facility], 1.2.840.1 [id number] 1098 [id number] Univers 07:57:06 23:59:00 Encounter Dana Cali 34585.1.1 ity of 3.412.2.7 [place] .3.075696 MD Barajas [facility] 2022-10-19 2022-10-[address] [facility], 1.2.840.1 [id number] [id number] Univers 07:57:06 23:59:00 Encounter Dana Cali 17698.1.1 ity of 3.412.2.7 [place] .3.035528 MD Barajas [facility] 2022-10-19 2022-10-19 [facility], 1.2.840.1 [id number] Univers 08:30:00 11:00:00 Procedure Dana Cali 01783.1.1 ity of 3.412.2.7 [place] .3.187887 MD Barajas [facility] 2022-10-19 2022-10-19 [facility], 1.2.840.1 [id number] Univers 08:30:00 11:00:00 Procedure Dana Cali 82226.1.1 ity of 3.412.2.7 [place] .3.585029 MD Barajas [facility] 2022-10-19 2022-10-19 Travel 1.2.840.1 1.2.157.215 2586 [id number] Univers 00:00:00 00:00:00 80922.1.1 350.1.13.41 ity of 3.412.2.7 [place].7.3.698 [place] .3.068891 084.8 MD Barajas [facility] 2022-10-19 2022-10-19 Travel 1.2.840.1 1.2.563.451 2989 [id number] Univers 00:00:00 00:00:00 43978.1.1 350.1.13.41 ity of 3.412.2.7 [place].7.3.698 [place] .3.941519 084.8 MD Barajas [facility] 2022-08-14 2022-08-14 Follow-Up Hilda, 1.2.840.1 [id number] Univers 09:00:00 09:30:00 Nolberto Negrete 89021.1.1 it y of 3.412.2.7 [place] .3.963182 MD Barajas [facility] 2022-08-14 2022-08-14 Follow-Up KYLER Stevens, 1.2.840.1 [id number] Univers 09:00:00 09:30:00 Nolberto Negrete 98266.1.1 it y of 3.412.2.7 [place] .3.556130 MD Barajas [facility] 2022-08-14 2022-08-14 Travel 1.2.840.1 1.2.328.714 6762 [id number] Univers 00:00:00 00:00:00 58055.1.1 350.1.13.41 ity of 3.412.2.7 2.2.7.3.698 [place] .3.261477 084.8 MD Barajas [facility] 2022-08-14 2022-08-14 Travel 1.2.840.1 1.2.592.608 4377 [id number] Univers 00:00:00 00:00:00 11433.1.1 350.1.13.41 ity of 3.412.2.7 [place].7.3.698 [place] .3.924630 084.8 MD Barajas [facility] 2022-07-21 2022-07-21 Office Dana Thomas 1.2.840.1 [id number] Univers 12:00:00 12:24:13 Visit Rhonda Carty 29800.1.1 ity of 3.412.2.7 [place] .3.943323 MD Sainz8 [facility] 2022-07-21 2022-07-21 Office Dana Rodriguez 1.2.840.1 [id number] [facility] 12:00:00 12:24:13 Visit Rhonda Carty 92621.1.1 ity of 3.412.2.7 [place] .3.612173 MD Sainz8 [facility] 2022-07-21 2022-07-21 Outpatient KYLER THOMAS MDA MDA [id number] 10:47:03 11:10:48 DANA meza 2022-07-21 2022-07-21 Outpatient KYLER THOMAS MDA MDA [id number] 10:12:51 10:21:44 DANA meza 2022-07-21 2022-07-21 Travel 1.2.840.1 1.2.870.680 7101 [id number] Univers 00:00:00 00:00:00 97697.1.1 350.1.13.41 ity of 3.412.2.7 2.2.7.3.698 [place] .3.276139 084.8 MD Barajas [facility] 2022-07-21 2022-07-21 Travel 1.2.840.1 1.2.915.421 9696 [id number] Univers 00:00:00 00:00:00 16111.1.1 350.1.13.41 ity of 3.412.2.7 2.2.7.3.698 [place] .3.797922 084.8 MD Barajas [facility] 2022-07-20 2022-07-20 Ancillary EL 1.2.840.1 [id number] [id number] Univers 08:00:00 10:30:00 Procedure 53555.1.1 it y of 3.412.2.7 [place] .3.548541 MD Barajas [facility] 2022-07-20 2022-07-20 Ancillary 1.2.840.1 [id number] 1097 [id number] Univers 08:00:00 10:30:00 Procedure 04771.1.1 it y of 3.412.2.7 [place] .3.800124 MD Barajas [facility] 2022-07-20 2022-07-20 Travel 1.2.840.1 1.2.585.644 4458 [id number] Univers 00:00:00 00:00:00 71958.1.1 350.1.13.41 ity of 3.412.2.7 2.2.7.3.698 [place] .3.168686 084.8 MD Barajas [facility] 2022-07-20 2022-07-20 Travel 1.2.840.1 1.2.687.553 6914 [id number] Univers 00:00:00 00:00:00 74612.1.1 350.1.13.41 ity of 3.412.2.7 2.2.7.3.698 [place] .3.236001 084.Radha Barajas [facility] 2022-06-23 2022-06-23 Infusion Dana Rodriguez 1.2.840.1 1020 [id number] Univers 14:15:00 16:55:04 Chloe Pablo 41338.1.1 ity of 3.412.2.7 [place] .3.268924 MD Barajas [facility] 2022-06-23 2022-06-23 Infusion Dana Thomas 1.2.840.1 1020 [id number] Univers 14:15:00 16:55:04 Chloe Pablo 99738.1.1 ity of 3.412.2.7 [place] .3.086085 MD Barajas [facility] 2022-06-23 2022-06-23 Office Dana Rodriguez 1.2.840.1 [id number] Univers 13:30:00 15:08:09 Visit Gabi Simon 01648.1.1 ity of 3.412.2.7 [place] .3.154108 MD Barajas [facility] 2022-06-23 2022-06-23 Office Dana Thomas 1.2.840.1 [id number] [facility] 13:30:00 15:08:09 Visit Gabi Simon 90482.1.1 ity of 3.412.2.7 [place] .3.403108 MD Sainz8 [facility] 2022-06-23 2022-06-23 Outpatient KYLER THOMAS MDA MDA [id number] 13:09:31 13:38:18 DANA meza 2022-06-23 2022-06-23 Travel 1.2.840.1 1.2.172.417 7498 [id number] Univers 00:00:00 00:00:00 94766.1.1 350.1.13.41 ity of 3.412.2.7 [place].2.7.3.698 [place] .3.417472 084.8 MD Sainz8 [facility] 2022-06-23 2022-06-23 Travel 1.2.840.1 1.2.339.391 5925 [id number] Univers 00:00:00 00:00:00 78032.1.1 350.1.13.41 ity of 3.412.2.7 2.2.7.3.698 [place] .3.970948 084.8 MD Barajas [facility] 2022-06-20 2022-06-20 Melonie Carty, 1.2.840.1 [id number] Univers 00:00:00 00:00:00 Only Rhonda 60520.1.1 ity of 3.412.2.7 [place] .3.234478 MD Barajas [facility] 2022-06-20 2022-06-20 Melonie Thomas 1.2.840.1 [id number] Univers 00:00:00 00:00:00 Only Dana Cali 31555.1.1 it y of 3.412.2.7 [place] .3.418957 MD Sainz8 [facility] 2022-06-20 2022-06-20 Melonie Carty, 1.2.840.1 [id number] Univers 00:00:00 00:00:00 Only Rhonda 66172.1.1 ity of 3.412.2.7 [place] .3.557161 MD Sainz8 [facility] 2022-06-20 2022-06-20 Melonie Thomas, 1.2.840.1 [id number] Univers 00:00:00 00:00:00 Only Dana Cali 95151.1.1 it y of 3.412.2.7 [place] .3.233265 MD Sainz8 [facility] 2022-06-19 2022-06-19 Procedure KYLER Stevens 1.2.840.1 [id number] 1097 [id number] Univers 09:00:00 10:03:04 visit Nolberto Negrete 48026.1.1 it y of 3.412.2.7 [place] .3.794704 MD Sainz8 [facility] 2022-06-19 2022-06-19 Procedure Hilda 1.2.840.1 [id number] 1097 [id number] Univers 09:00:00 10:03:04 visit Nolberto Negrete 08098.1.1 it y of 3.412.2.7 [place] .3.030121 MD Barajas [facility] 2022-06-19 2022-06-19 Outpatient KYLER STEVENS MDA [facility] [id number] 09:08:16 09:08:16 NOLBERTO meza 2022-06-19 2022-06-19 Travel 1.2.840.1 1.2.942.028 7050 [id number] Univers 00:00:00 00:00:00 36577.1.1 350.1.13.41 ity of 3.412.2.7 2.2.7.3.698 Te neymar Sainz3.708191 084.8 .8 [facility] 2022-06-19 2022-06-19 Travel 1.2.840.1 1.2.543.566 8478 [id number] Univers 00:00:00 00:00:00 74926.1.1 350.1.13.41 ity of 3.412.2.7 2.2.7.3.698 [place] .3.150697 084.8 MD Sainz8 [facility] 2022-06-16 2022-06-16 Telephone Pomer, 1.2.840.1 [id number] 1097 [id number] Univers 00:00:00 00:00:00 Kathleen May 12913.1.1 it y of 3.412.2.7 [place] .3.830514 MD Sainz8 [facility] 2022-06-16 2022-06-16 Telephone Pomer, 1.2.840.1 [id number] 1097 [id number] Univers 00:00:00 00:00:00 Kathleen May 76727.1.1 it y of 3.412.2.7 [place] .3.019085 MD Sainz8 [facility] 2022-05-31 2022-05-31 Telephone Pomer, 1.2.840.1 [id number] 1096 [id number] Univers 00:00:00 00:00:00 Kathleen May 55764.1.1 it y of 3.412.2.7 [place] .3.429246 MD Sainz8 [facility] 2022-05-31 2022-05-31 Telephone Pomer, 1.2.840.1 [id number] 1096 [id number] Univers 00:00:00 00:00:00 Kathleen May 45689.1.1 it y of 3.412.2.7 [place] .3.015714 MD Sainz8 [facility] 2022-05-26 2022-05-26 Dana Rodriguez 1.2.840.1 1020 [id number] Univers 12:30:00 14:58:20 Vickie Graves 86248.1.1 ity of 3.412.2.7 [place] .3.516025 MD Barajas [facility] 2022-05-26 2022-05-26 Dana Gonzalez 1.2.840.1 1020 22003 [id number] Univers 12:30:00 14:58:20 Vickie Graves Rasheeda 07729.1.1 ity of 3.412.2.7 [place] .3.427086 MD Barajas [facility] 2022-05-26 2022-05-26 Office KYLER Thomas, 1.2.840.1 [id number] Univers 11:00:00 11:37:32 Visit Dana Cali 59923.1.1 it y of 3.412.2.7 [place] .3.921732 MD Barajas [facility] 2022-05-26 2022-05-26 Office Cali, 1.2.840.1 [id number] Univers 11:00:00 11:37:32 Visit Dana Cali 99055.1.1 it y of 3.412.2.7 [place] .3.980905 MD Barajas [facility] 2022-05-26 2022-05-26 Outpatient KYLER THOMAS [facility] MDA [id number] 09:18:40 09:51:40 DANA meza 2022-05-26 2022-05-26 Outpatient KYLER THOMAS DILLON MDA [id number] 09:02:11 09:16:35 DANA meza 2022-05-26 2022-05-26 Melonie Carty 1.2.840.1 [id number] Univers 00:00:00 00:00:00 Only Rhonda 50465.1.1 ity of 3.412.2.7 [place] .3.054757 MD Barajas [facility] 2022-05-26 2022-05-26 Melonie Thomas 1.2.840.1 [id number] Univers 00:00:00 00:00:00 Only Dana Cali 08632.1.1 it y of 3.412.2.7 [place] .3.768143 MD Sainz8 [facility] 2022-05-26 2022-05-26 Travel 1.2.840.1 1.2.652.849 7227 [id number] Univers 00:00:00 00:00:00 42993.1.1 350.1.13.41 ity of 3.412.2.7 2.2.7.3.698 [place] .3.687908 084.8 MD Sainz8 [facility] 2022-05-26 2022-05-26 Melonie Carty, 1.2.840.1 [id number] Univers 00:00:00 00:00:00 Only Rhonda 46123.1.1 ity of 3.412.2.7 [place] .3.160953 MD Sainz8 [facility] 2022-05-26 2022-05-26 Melonie Carty 1.2.840.1 [id number] Univers 00:00:00 00:00:00 Only Rhonda 52755.1.1 ity of 3.412.2.7 [place] .3.409491 MD Sainz8 [facility] 2022-05-26 2022-05-26 Melonie Thomas, 1.2.840.1 [id number] Univers 00:00:00 00:00:00 Only Dana Cali 36561.1.1 it y of 3.412.2.7 [place] .3.049412 MD Sainz8 [facility] 2022-05-26 2022-05-26 Travel 1.2.840.1 1.2.349.301 2415 [id number] [facility] 00:00:00 00:00:00 63953.1.1 350.1.13.41 ity of 3.412.2.[place].3.698 [place] .3.305930 084.8 MD Sainz8 [facility] 2022-05-26 2022-05-26 Melonie Carty 1.2.840.1 [id number] Univers 00:00:00 00:00:00 Only Rhonda 04786.1.1 ity of 3.412.2.7 [place] .3.829199 MD Sainz8 [facility] 2022-05-25 2022-05-25 Melonie Thomas, 1.2.840.1 [id number] Univers 00:00:00 00:00:00 Only Dana Cali 00325.1.1 it y of 3.412.2.7 [place] .3.380992 MD Sainz8 [facility] 2022-05-25 2022-05-25 Melonie Thomas, 1.2.840.1 [id number] Univers 00:00:00 00:00:00 Only Dana Cali 34893.1.1 it y of 3.412.2.7 [place] .3.264299 MD Barajas [facility] 2022-05-15 2022-05-15 Office KYLER Stevens, 1.2.840.1 [id number] Univers 09:30:00 12:10:36 Visit Nolberto Negrete 00958.1.1 it y of 3.412.2.7 [place] .3.331681 MD Sainz8 [facility] 2022-05-15 2022-05-15 Office Hilda, 1.2.840.1 [id number] Univers 09:30:00 12:10:36 Visit Nolberto Negrete 99271.1.1 it y of 3.412.2.7 [place] .3.469182 MD Barajas [facility] 2022-05-15 2022-05-15 Travel 1.2.840.1 1.2.553.961 4383 [id number] Univers 00:00:00 00:00:00 57878.1.1 350.1.13.41 ity of 3.412.2.[place]7.3.698 [place] .3.919917 084.8 MD Barajas [facility] 2022-05-15 2022-05-15 Travel 1.2.840.1 1.2.901.013 [id number] [id number] [facility] 00:00:00 00:00:00 98496.1.1 350.1.13.41 ity of 3.412.2.[place]7.3.698 [place] .3.203105 084.8 MD Barajas [facility] 2022-04-26 2022-04-26 Infusion Dana Rodriguez 1.2.840.1 1020 [id number] Univers 10:00:00 14:16:37 Estee Bailon 49328.1.1 ity of 3.412.2.7 [place] .3.649613 MD Sainz8 [facility] 2022-04-26 2022-04-26 Infusion Dana Thomas 1.2.840.1 1020 [id number] Univers 10:00:00 14:16:37 Estee Bailon 25458.1.1 ity of 3.412.2.7 [place] .3.386069 MD Barajas [facility] 2022-04-26 2022-04-26 Office KYLER Thomas, 1.2.840.1 [id number] Univers 08:30:00 09:06:53 Visit Dana Cali 82953.1.1 it y of 3.412.2.7 [place] .3.264192 MD Barajas [facility] 2022-04-26 2022-04-26 Office Cali 1.2.840.1 [id number] Univers 08:30:00 09:06:53 Visit Dana Cali 04226.1.1 it y of 3.412.2.7 [place] .3.520408 MD Barajas [facility] 2022-04-26 2022-04-26 Outpatient KYLER THOMAS, DILLON MDA [id number] 07:19:11 07:45:00 DANA meza 2022-04-26 2022-04-26 Melonie Thomas 1.2.840.1 [id number] Univers 00:00:00 00:00:00 Only Dana Cali 92374.1.1 it y of 3.412.2.7 [place] .3Emeli036122 MD Barajas [facility] 2022-04-26 2022-04-26 Travel 1.2.840.1 1.2.767.035 9561 [id number] Univers 00:00:00 00:00:00 87483.1.1 350.1.13.41 ity of 3.412.2.[place].3.698 [place]3.926[place] 084.8 MD Barjaas [facility] 2022-04-26 2022-04-26 Melonie Thomas 1.2.840.1 [id number] [id number] Univers 00:00:00 00:00:00 Only Dana Cali 93391.1.1 it y of 3.412.2.7 [place] .3.540813 MD [facility] 2022-04-26 2022-04-26 Travel 1.2.840.1 1.2.991.032 0815 [id number] Univers 00:00:00 00:00:00 97989.1.1 350.1.13.41 ity of 3.412.2.[place].3.698 [place]3.543373 084.8 MD [facility] 2022-04-25 2022-04-25 Melonie Thomas 1.2.840.1 [id number] 57013 [id number] Univers 00:00:00 00:00:00 Only Dana Cali 32955.1.1 it y of 3.412.2.7 [place] .3.639308 MD [facility] 2022-04-25 2022-04-25 Melonie Thomas, 1.2.840.1 [id number] 58296 88075 Univers 00:00:00 00:00:00 Only Dana Cali 45784.1.1 it y of 3.412.2.7 [place] .3.984213 MD [facility] 2022-04-20 2022-04-20 Ancillary Gabi Pitts 1.2.840.1 [id number] Univers 12:30:00 14:55:00 Procedure 36192.1.1 it y of 3.412.2.7 [place] .3.610863 MD Sainz8 [facility] 2022-04-20 2022-04-20 Travel 1.2.840.1 1.2.132.782 3834 [id number] Univers 00:00:00 00:00:00 21515.1.1 350.1.13.41 ity of 3.412.2.7 [place].3.698 [place] .3.609[place] 084.8 MD Sainz8 [facility] 2022-04-11 2022-04-11 Orders SherineGabi 1.2.840.1 [id number] Univers 00:00:00 00:00:00 Only 89279.1.1 ity of 3.412.2.7 [place] .3.793772 MD Sainz8 [facility] 2022-04-11 2022-04-11 Telephone Pedro, 1.2.840.1 [id number] 1095 [id number] Univers 00:00:00 00:00:00 December L 29443.1.1 ity of 3.412.2.7 [place] .3.371548 MD Sainz8 [facility] 2022-04-07 2022-04-07 Telephone Pcp, [facility] 1.2.940.602 4198 1258 Univers 00:00:00 00:00:00 Patient HEALTH 350.1.13.10 it y of Does Not [place] NASEEM?BLEA [id number] [address] MEDICAL OFFICE BUILDING 2022-04-06 2022-04-06 Laboratory Only, Ang Db Test [facility] 1.2.8 40.114 [id number] Univers 15:30:00 15:36:43 Only Delores Wilkins [facility] 350.1.13.10 ity of [place] 4.2.7.2.686 [place] as NASEEM?BLEA [id number] [address] OFFICE BUILDING 2022-04-06 2022-04-06 [facility] [id number] Univers 15:30:00 15:30:00 RANIA ity of [facility] 2022-04-06 2022-04-06 Orders Doctor MELVA 1.2.840.114 [id number] Univers 00:00:00 00:00:00 Only Unassigned, THAD 350.1.13.10 ity of [facility] 4.2.7.2.686 [place] as [id number] [address] 2022-03-17 2022-03-17 Infusion Dana Rodriguez 1.2.840.1 1020 67535 [id number] Univers 14:15:00 16:46:00 Fior Valverde 02262.1.1 ity of 3.412.2.7 [place] .3.717031 MD Sainz8 Mitchell susana [facility] 2022-03-17 2022-03-17 Office Dana Rodriguez 1.2.840.1 21058 4665 [id number] Univers 10:00:00 11:52:21 Visit Gabi Simon 34022.1.1 ity of 3.412.2.7 [place] .3.508862 MD [facility] 2022-03-17 2022-03-17 Outpatient KYLER THOMAS MDA MDA [id number] 08:00:09 11:33:23 DANA meza 2022-03-17 2022-03-17 Outpatient KYLER DRIVER MDA MDA [id number] 07:23:32 07:36:42 CHRISTIAN meza 2022-03-17 2022-03-17 Travel 1.2.840.1 1.2.480.786 0197 [id number] Univers 00:00:00 00:00:00 77717.1.1 350.1.13.41 ity of 3.412.2.[place].3.698 [place] .3.323807 084.8 MD Karl meza [facility] 2022-03-15 2022-03-15 Hailey Thomas.2.840.1 [id number] 71596 12246 Univers 00:00:00 00:00:00 Only Dana Cali 44610.1.1 it y of 3.412.2.7 [place] .3.541726 MD Sainz8 [facility] 2022-03-12 2022-03-12 Radha Nash, 1.2.840.1 [id number] 7050 Univers 00:00:00 00:00:00 Angel 46695.1.1 ity of 3.412.2.7 [place] .3.528828 MD Sainz8 [facility] 2022-03-09 2022-03-09 Melonie Driver, 1.2.840.1 [id number] Univers 00:00:00 00:00:00 Only Christian 41743.1.1 ity of 3.412.2.7 [place] .3.327276 MD Sainz8 [facility] 2022-03-01 2022-03-01 Radha Stevens, 1.2.840.1 [id number] Univers 00:00:00 00:00:00 Nolberto Negrete 45588.1.1 it y of 3.412.2.7 [place] .3.933633 MD [facility] 2022-02-17 2022-02-17 Dana Gonzalez 1.2.840.1 1020 83698 [id number] Univers 12:30:00 15:19:57 Vickie Graves 01117.1.1 ity of 3.412.2.7 [place] .3.223771 MD [facility] 2022-02-17 2022-02-17 Melonie Thomas 1.2.840.1 [id number] 91202 84434 Univers 00:00:00 00:00:00 Only Dana Cali 15289.1.1 it y of 3.412.2.7 [place] .3Emeli316246 MD [facility] 2022-02-17 2022-02-17 Travel 1.2.840.1 1.2.676.882 5444 [id number] Univers 00:00:00 00:00:00 34151.1.1 350.1.13.41 ity of 3.412.2.7 [place]7.3.698 [place] .3.548699 084.8 MD [facility] 2022-02-10 2022-02-10 Office Dana Thomas 1.2.840.1 44436 4665 [id number] Univers 11:00:00 11:30:00 Visit Gabi Simon 41141.1.1 ity of 3.412.2.7 [place] .3.187759 MD [facility] 2022-02-10 2022-02-10 Travel 1.2.840.1 1.2.382.650 8664 [id number] Univers 00:00:00 00:00:00 67065.1.1 350.1.13.41 ity of 3.412.2.7 [place]7.3.698 [place] .3.820111 084.8 MD [facility] 2022-02-10 2022-02-10 Melonie Driver, 1.2.840.1 [id number] Univers 00:00:00 00:00:00 Only Christian 54592.1.1 ity of 3.412.2.7 [place] .3.010960 MD [facility] 2022-02-09 2022-02-09 Office Hilda, 1.2.840.1 [id number] Univers 09:30:00 10:00:00 Visit Nolberto Negrete 99469.1.1 it y of 3.412.2.7 [place] .3.298395 MD [facility] 2022-02-09 2022-02-09 Melonie Thomas, 1.2.840.1 [id number] 03197 76410 Univers 00:00:00 00:00:00 Only Dana Cali 21934.1.1 it y of 3.412.2.7 [place] .3.006339 MD [facility] 2022-02-09 2022-02-09 Travel 1.2.840.1 1.2.386.412 8743 [id number] Univers 00:00:00 00:00:00 40591.1.1 350.1.13.41 ity of 3.412.2.7 [place]7.3.698 [place]3.337546 084.8 MD [facility] 2022-01-24 2022-01-24 Telephone White, 1.2.840.1 [id number] 1092 [id number] Univers 00:00:00 00:00:00 Cherrie Burnett 13583.1.1 it y of 3.412.2.7 [place] .3.719116 MD [facility] 2022-01-13 2022-01-13 Infusion KYLER Thomas, 1.2.840.1 [id number] 1091 [id number] Univers 10:45:00 12:24:32 Dana Cali 94148.1.1 it y of 3.412.2.7 [place] .3.328289 MD [facility] 2022-01-13 2022-01-13 Office KYLER Thomas, 1.2.840.1 [id number] 90574 15126 Univers 08:00:00 09:23:12 Visit Dana Cali 41555.1.1 it y of 3.412.2.7 [place] .3.352480 MD [facility] 2022-01-13 2022-01-13 Outpatient KYLER THOMAS, MDA MDA [id number] 06:51:34 07:14:03 DANA meza 2022-01-13 2022-01-13 Travel 1.2.840.1 1.2.451.926 1943 [id number] Univers 00:00:00 00:00:00 36567.1.1 350.1.13.41 ity of 3.412.2.7 [place]7.3.698 [place] .3.009268 084.8 MD [facility] 2022-01-12 2022-01-12 Orders Molina, 1.2.840.1 [id number] Univers 00:00:00 00:00:00 Only Christian 97468.1.1 ity of 3.412.2.7 [place] .3.894747 MD Sainz8 [facility] 2022-01-12 2022-01-12 Melonie Thomas, 1.2.840.1 [id number] [id number] Univers 00:00:00 00:00:00 Only Dana Cali 43564.1.1 it y of 3.412.2.7 [place] .3.640208 MD Sainz8 [facility] 2022-01-05 2022-01-05 Procedure KYLER Stevens, 1.2.840.1 [id number] 1091 [id number] Univers 13:00:00 14:36:13 visit Nolberto Negrete 09413.1.1 it y of 3.412.2.7 [place] .3.292420 MD Sainz8 [facility] 2022-01-05 2022-01-05 Outpatient KYLER STEVENS, DILLON MDA [id number] 13:24:08 13:24:08 NOLBERTO meza 2022-01-05 2022-01-05 Travel 1.2.840.1 1.2.703.954 2870 [id number] Univers 00:00:00 00:00:00 02837.1.1 350.1.13.41 ity of 3.412.2.[place].3.698 [place] .3.279253 084.8 MD [facility] 2021-12-30 2021-12-30 Telemedici KYLER Thomas, 1.2.840.1 [id number] 10 [id number] Univers 13:30:00 14:00:00 ne Dana Cali 28569.1.1 it y of 3.412.2.7 [place] .3.945001 MD [facility] 2021-12-30 2021-12-30 Ancillary KYLER Driver 1.2.840.1 [id number] 1091 [id number] Univers 09:45:00 12:10:00 Procedure Christian 09946.1.1 it y of 3.412.2.7 [place] .3.029498 MD [facility] 2021-12-30 2021-12-30 Ancillary KYLER Driver, 1.2.840.1 [id number] 1091 [id number] Univers 07:45:00 08:45:00 Procedure Christian 16713.1.1 it y of 3.412.2.7 [place] .3.502758 MD [facility] 2021-12-30 2021-12-30 Outpatient KYLER DRIVER, [facility] MDA [id number] 08:09:31 08:09:31 CHRISTIAN meza 2021-12-30 2021-12-30 Travel 1.2.840.1 1.2.879.731 6447 [id number] Univers 00:00:00 00:00:00 78618.1.1 350.1.13.41 ity of 3.412.2.7 [place]7.3.698 [place] .3.928381 084.8 MD [facility] 2021-12-29 2021-12-29 Telephone Jenae, 1.2.840.1 [id number] [id number] Univers 00:00:00 00:00:00 Kathleen May 73020.1.1 it y of 3.412.2.7 [place] .3.114969 MD [facility] 2021-12-28 2021-12-28 Melonie Driver, 1.2.840.1 [id number] 7656 Univers 00:00:00 00:00:00 Only Christian 79765.1.1 ity of 3.412.2.7 [place] .3.795766 MD [facility] 2021-12-26 2021-12-26 Melonie Driver, 1.2.840.1 [id number] 6109 Univers 00:00:00 00:00:00 Only Christian 37558.1.1 ity of 3.412.2.7 [place] .3.935107 MD [facility] 2021-12-26 2021-12-26 Telephone Jenae, 1.2.840.1 [id number] 1091 [id number] Univers 00:00:00 00:00:00 Kathleen May 53809.1.1 it y of 3.412.2.7 [place] .3.217464 MD Sainz8 [facility] 2021-12-26 2021-12-26 [facility] Hilda, 1.2.840.1 [id number] Univers 00:00:00 00:00:00 Only Nolberto VanessaEmeli 12696.1.1 it y of 3.412.2.7 [place] .3.871026 MD Sainz8 [facility] 2021-12-23 2021-12-23 Office KYLER Stevens, 1.2.840.1 [id number] Univers 15:00:00 16:00:00 Visit JuanEmeli 33123.1.1 it y of 3.412.2.7 [place] .3.685847 MD Sainz8 [facility] 2021-12-23 2021-12-23 Office KYLER Driver 1.2.840.1 [id number] Univers 13:30:00 14:00:00 Visit Christian 65418.1.1 ity of 3.412.2.7 [place] .3.293103 MD [facility] 2021-12-23 2021-12-23 Outpatient KYLER DRIVER, [facility] [id number] 11:48:07 12:10:51 CHRISTIAN Medrano [facility] 2021-12-23 2021-12-23 Travel 1.2.840.1 1.2.547.518 3938 [id number] Univers 00:00:00 00:00:00 80261.1.1 350.1.13.41 ity of 3.412.2.7 [place]7.3.698 [place] .3.434923 084.8 MD [facility] 2021-12-21 2021-12-21 Documentat Mirna, 1.2.840.1 [id number] 1 [id number] Univers 00:00:00 00:00:00 ion Carlos 66706.1.1 i ty of M 3.412.2.7 [place] .3.395222 MD [facility] 2021-12-16 2021-12-16 Telemedici KYLER Driver, 1.2.840.1 [id number] [id number] Univers 14:30:00 15:00:00 jay Gonzales 32704.1.1 ity of 3.412.2.7 [place] .3.337768 MD [facility] 2021-12-13 2021-12-13 [facility] KYLER Grant, 1.2.840.1 [id number] [id number] Univers 15:12:24 23:59:00 [facility] Crowjay 25544.1.1 i ty of 3.412.2.7 [place] .3.473512 MD [facility] 2021-12-13 2021-12-13 Follow-Up Angel Reeves 1.2.840.1 [id number] Univers 13:30:00 15:20:07 Neelam Grant 17252.1.1 ity of 3.412.2.7 [place] .3.117548 MD [facility] 2021-12-13 2021-12-13 Travel 1.2.840.1 1.2.943.076 2554 [id number] Univers 00:00:00 00:00:00 66217.1.1 350.1.13.41 ity of 3.412.2.7 [place]7.3.698 [place] .3.709805 084.8 MD [facility] 2021-12-12 2021-12-12 Telephone Molina 1.2.840.1 [id number] 1090 [id number] Univers 00:00:00 00:00:00 Christian 60303.1.1 ity of 3.412.2.7 [place] .3.002393 MD [facility] 2021-12-07 2021-12-07 Telemedici Dana Rodriguez 1.2.840.1 10 [id number] Univers 14:00:00 14:30:00 ne Christian Driver 95129.1.1 ity of 3.412.2.7 [place] .3.538721 MD [facility] 2021-12-02 2021-12-02 Telephone Yuki Vasquez2.840.1 [id number] 1090 [id number] Univers 00:00:00 00:00:00 Dorinda L 23780.1.1 ity of 3.412.2.7 [place] .3.967812 MD [facility] 2021-11-28 2021-11-28 [facility] KYLER Nash, 1.2.840.1 [id number] Univers 07:30:00 23:59:00 Encounter Saamir 54523.1.1 it y of 3.412.2.7 [place] .3.654302 MD Sainz8 [facility] 2021-11-28 2021-11-28 [facility], 1.2.840.1 [id number] 1090 [id number] Univers 07:11:29 07:29:00 Encounter Star 13180.1.1 it y of 3.412.2.7 [place] .3.478401 MD [facility] 2021-11-28 2021-11-28 Travel 1.2.840.1 1.2.473.879 6673 [id number] Univers 00:00:00 00:00:00 50202.1.1 350.1.13.41 ity of 3.412.2.7 2.[place].7.3.698 [place] .3.505475 084.8 MD [facility] 2021-11-21 2021-11-21 [facility], 1.2.840.1 [id number] Univers 07:00:00 23:59:00 Encounter Saamir 81704.1.1 it y of 3.412.2.7 [place] .3.976212 MD [facility] 2021-11-21 2021-11-21 [facility] Daniel, 1.2.840.1 [id number] Univers 14:52:05 14:52:05 Event Brooke L 22920.1.1 it y of 3.412.2.7 [place] .3.223985 MD [facility] 2021-11-21 2021-11-21 Telephone Mirna, 1.2.840.1 [id number] 10 [id number] Univers 00:00:00 00:00:00 Maeadeline 61843.1.1 i ty of M 3.412.2.7 [place] .3.793898 MD [facility] 2021-11-21 2021-11-21 Documentat Mirna, 1.2.840.1 [id number] 1 [id number] Univers 00:00:00 00:00:00 ion Maeadeline 99855.1.1 i ty of M 3.412.2.7 [place] .3.629008 MD [facility] 2021-11-21 2021-11-21 Melonie Nash, 1.2.840.1 [id number] 7007 Univers 00:00:00 00:00:00 Only Saamir 30549.1.1 ity of 3.412.2.7 [place] .3.484262 MD [facility] 2021-11-21 2021-11-21 Travel 1.2.840.1 1.2.230.888 5529 [id number] Univers 00:00:00 00:00:00 01971.1.1 350.1.13.41 ity of 3.412.2.7 2.[place]7.3.698 [place] .3.538381 084.8 MD [facility] 2021-11-18 2021-11-18 Hospital KYLER Thomas 1.2.840.1 [id number] 1089 [id number] Univers 11:00:00 23:59:00 Liberty Cali 90612.1.1 ity of 3.412.2.7 [place] .3.095025 MD [facility] 2021-11-18 2021-11-18 Consult Dana Rodriguez 1.2.840.1 65151 [id number] [id number] Univers 15:15:00 16:00:00 Susan Baird 39135.1.1 ity of 3.412.2.7 [place] .3.418818 MD [facility] 2021-11-18 2021-11-18 POEM KYLER Thomas, 1.2.840.1 [id number] 76635 32046 Univers 14:00:00 15:24:25 Delma Cali 48633.1.1 ity of ts 3.412.2.7 [place] .3.328338 MD [facility] 2021-11-18 2021-11-18 Telemedici KYLER Driver, 1.2.840.1 [id number] [id number] Univers 15:00:00 15:15:00 ne Christian 87081.1.1 ity of 3.412.2.7 [place] .3.977946 MD Sainz8 [facility] 2021-11-18 2021-11-18 Dana Sutherland 1.2.840.1 1010 55963 [id number] Univers 11:30:00 12:12:03 Support Rosalinda Topete 57812.1.1 ity of 3.412.2.7 [place] .3.943454 MD [facility] 2021-11-18 2021-11-18 Travel 1.2.840.1 1.2.266.993 8797 [id number] Univers 00:00:00 00:00:00 12871.1.1 350.1.13.41 ity of 3.412.2.7 [place]7.3.698 [place] .3.401159 084.8 MD Sainz8 [facility] 2021-11-16 2021-11-16 Hospital KYLER Gonsalez, 1.2.840.1 [id number] [id number] Univers 09:38:14 23:59:00 Liberty Ren 77221.1.1 it y of 3.412.2.7 [place] .3.134389 MD [facility] 2021-11-16 2021-11-16 Consult KYLER Nash, 1.2.840.1 [id number] 8543 Univers 09:40:00 10:51:59 Angel 34395.1.1 ity of 3.412.2.7 [place] .3.846403 MD Sainz8 [facility] 2021-11-16 2021-11-16 Documentat Mirna, 1.2.840.1 [id number] 1 [id number] Univers 00:00:00 00:00:00 ion Carlos 91131.1.1 i ty of M 3.412.2.7 [place] .3.018662 MD Sainz8 [facility] 2021-11-16 2021-11-16 Orders Saad, 1.2.840.1 [id number] Univers 00:00:00 00:00:00 Only Saamir 30073.1.1 ity of 3.412.2.7 [place] .3.296945 MD Sainz8 [facility] 2021-11-16 2021-11-16 Travel 1.2.840.1 1.2.948.129 8522 [id number] Univers 00:00:00 00:00:00 31393.1.1 350.1.13.41 ity of 3.412.2.7 [place]7.3.698 [place] .3.797975 084.8 MD Sainz8 [facility] 2021-11-04 2021-11-04 Telemedici KYLER Thomas, 1.2.840.1 [id number] 10 [id number] Univers 14:30:00 15:00:00 jay Cali 34832.1.1 it y of 3.412.2.7 [place] .3.660875 MD [facility] 2021-11-04 2021-11-04 Ancillary KYLER Driver, 1.2.840.1 [id number] 1089 [id number] Univers 11:00:00 12:45:00 Procedure Christian 79496.1.1 it y of 3.412.2.7 [place] .3.055911 MD [facility] 2021-11-04 2021-11-04 Ancillary KYLER Driver, 1.2.840.1 [id number] 1089 [id number] Univers 09:15:00 10:15:00 Procedure Christian 24617.1.1 it y of 3.412.2.7 [place] .3.400130 MD [facility] 2021-11-04 2021-11-04 Prep for Cali, 1.2.840.1 [id number] 1089 [id number] Univers 00:00:00 00:00:00 Surgery Dana Cali 18568.1.1 it y of 3.412.2.7 [place] .3.514997 MD [facility] 2021-11-04 2021-11-04 Telephone Cali, 1.2.840.1 [id number] 834 [id number] Univers 00:00:00 00:00:00 Dana Cali 99236.1.1 it y of 3.412.2.7 [place] .3.580315 MD [facility] 2021-11-04 2021-11-04 Travel 1.2.840.1 1.2.813.587 7714 005488 Univers 00:00:00 00:00:00 47545.1.1 350.1.13.41 ity of 3.412.2.7 [place]7.3.698 [place] .3.588722 084.8 MD [facility] 2021-11-03 2021-11-03 [facility] Thomas, 1.2.840.1 [id number] 10 [id number] Univers 16:00:00 16:11:25 plinary Dana Cali 08519.1.1 it y of Visit 3.412.2.7 [place] .3.958048 MD [facility] 2021-11-03 2021-11-03 Travel 1.2.840.1 1.2.415.802 4756 [id number] Univers 00:00:00 00:00:00 13481.1.1 350.1.13.41 ity of 3.412.2.7 2.[place]7.3.698 [place] .3.658674 084.8 MD [facility] 2021-11-01 2021-11-01 Melonie Driver 1.2.840.1 [id number] 6507 Univers 00:00:00 00:00:00 Only Christian 26712.1.1 ity of 3.412.2.7 [place] .3.280846 MD Sainz8 [facility] 2021-10-28 2021-10-28 Ancillary KYLER Thomas, 1.2.840.1 [id number] Univers 20:30:00 20:35:00 Procedure Dana Cali 37693.1.1 ity of 3.412.2.7 [place] .3.825277 MD Sainz8 [facility] 2021-10-28 2021-10-28 Ancillary KYLER Thomas, 1.2.840.1 [id number] Univers 20:25:00 20:30:00 Procedure Dana Cali 36357.1.1 ity of 3.412.2.7 [place] .3.603645 MD Sainz8 [facility] 2021-10-28 2021-10-28 Ancillary KYLER Thomas, 1.2.840.1 [id number] Univers 20:20:00 20:25:00 Procedure Dana Cali 82923.1.1 ity of 3.412.2.7 [place] .3.894543 MD Sainz8 [facility] 2021-10-28 2021-10-28 Ancillary KYLER Thomas, 1.2.840.1 [id number] [id number] Univers 20:15:00 20:20:00 Procedure Dana Cali 35181.1.1 ity of 3.412.2.7 [place] .3.821374 MD Sainz8 [facility] 2021-10-28 2021-10-28 Ancillary KYLER Thomas, 1.2.840.1 [id number] Univers 20:10:00 20:15:00 Procedure Dana Cali 32714.1.1 ity of 3.412.2.7 [place] .3.398390 MD Sainz8 [facility] 2021-10-28 2021-10-28 Ancillary KYLER Thomas, 1.2.840.1 [id number] 812 [id number] Univers 20:05:00 20:10:00 Procedure Dana Cali 82138.1.1 ity of 3.412.2.7 [place] .3Emeli059743 MD [facility] 2021-10-28 2021-10-28 Ancillary KYLER Thomas, 1.2.840.1 [id number] [id number] Univers 20:00:00 20:05:00 Procedure Dana Cali 00398.1.1 ity of 3.412.2.7 [place] .3.816495 MD Sainz8 [facility] 2021-10-28 2021-10-28 Melonie Driver 1.2.840.1 [id number] 3582 Univers 00:00:00 00:00:00 Only Christian 51164.1.1 ity of 3.412.2.7 [place] .3Emeli292935 MD Sainz8 [facility] 2021-10-28 2021-10-28 Melonie Thomas 1.2.840.1 [id number] 04579 Univers 00:00:00 00:00:00 Only Dana Cali 16212.1.1 it y of 3.412.2.7 [place] .3.803422 MD Sainz8 [facility] 2021-10-26 2021-10-26 Hospital Dar Riso 1.2.840 .1 [id number] Univers 19:02:00 23:59:00 Encounter Dana Thomas 27713.1.1 ity of 3.412.2.7 [place] .3.000596 MD Barajas [facility] 2021-10-25 2021-10-25 Hospital Dana Rodriguez 1.2.840.1 [id number] Univers 09:26:28 23:59:00 Encounter Fermin Hoffman 86805.1.1 ity of Jazzmine Xiao 3.412.2.7 Herberth Shirley3.549073 MD Sainz8 [facility] 2021-10-25 2021-10-25 Anesthesia Ede 1.2.840.1 [id number] Univers 11:51:00 13:07:00 Event Herberth A 65651.1.1 i ty of 3.412.2.7 [place] .3.282906 MD Sainz8 [facility] 2021-10-25 2021-10-25 Travel 1.2.840.1 1.2.096.268 [id number] Univers 00:00:00 00:00:00 04838.1.1 350.1.13.41 ity of 3.412.2.7 [place].3.698 [place] .3.123625 084.8 MD Sainz8 [facility] 2021-10-24 2021-10-24 Beth Gaytan 1.2.840.1 [id number] Univers 23:59:59 23:59:59 Event Roxi 10115.1.1 ity of 3.412.2.7 [place] .3.118326 MD Sainz8 [facility] 2021-10-24 2021-10-24 Hospital Dana Rodriguez 1.2.840.1 [id number] Univers 10:13:24 23:59:00 Encounter Genaro Mcclelland 18630.1.1 ity of 3.412.2.7 [place] .3.911906 MD Barajas [facility] 2021-10-24 2021-10-24 Outpatient KYLER GONSALEZ MDA MDA [id number] 09:55:40 10:10:08 LOS meza 2021-10-24 2021-10-24 Clinical Dana Rodriguez 1.2.840.1 1020 [id number] Univers 09:45:00 09:54:27 Support Cindy Núñez 03149.1.1 ity of 3.412.2.7 [place] .3Emeli343107 MD Barajas [facility] 2021-10-24 2021-10-24 CON Thomas 1.2.840.1 [id number] Univers 09:00:00 09:30:00 Delma Cali 91346.1.1 ity of ts 3.412.2.7 [place] .3.655402 MD Sainz8 [facility] 2021-10-24 2021-10-24 Genaro Collins 1.2.840.1 [id number] Univers 00:00:00 00:00:00 Only T 03854.1.1 ity of 3.412.2.7 [place] .3.574765 MD Sainz8 [facility] 2021-10-24 2021-10-24 Travel 1.2.840.1 1.2.856.716 [id number] Univers 00:00:00 00:00:00 98617.1.1 350.1.13.41 ity of 3.412.2.7 [place].3.698 [place] .3.8009[place] 084.8 MD Barajas [facility] 2021-10-18 2021-10-18 Orders Gonsalez, 1.2.840.1 [id number] Univers 00:00:00 00:00:00 Only Los 88430.1.1 ity of 3.412.2.7 [place] .3.892765 MD Sainz8 [facility] 2021-10-18 2021-10-18 Telephone Chris, 1.2.840.1 [id number] Univers 00:00:00 00:00:00 Sabra 12385.1.1 ity of 3.412.2.7 [place] .3.977937 MD Sainz8 [facility] 2021-10-14 2021-10-14 Telemsarahy Thomas, 1.2.840.1 [id number] Univers 14:00:00 14:30:00 jay Cali 48933.1.1 it y of 3.412.2.7 [place] .3.679629 MD Barajas [facility] 2021-10-13 2021-10-13 Ancillary KYLER Driver, 1.2.840.1 [id number] Univers 07:15:00 09:40:00 Procedure Christian 82906.1.1 it y of 3.412.2.7 [place] .3.239070 MD Barajas [facility] 2021-10-13 2021-10-13 Travel 1.2.840.1 1.2.641.716 [id number] Univers 00:00:00 00:00:00 61678.1.1 350.1.13.41 ity of 3.412.2.[place] 2.[place].3.698 [place] .3.583136 084.8 MD Barajas [facility] 2021-10-03 2021-10-03 [facility], 1.2.840.1 [id number] Univers 00:00:00 00:00:00 Christian 07019.1.1 ity of 3.412.2.7 [place] .3.826163 [facility] 2021-09-30 Office KYLER Driver, 1.2.840.1 [id number] Univers 13:00:00 13:51:12 Visit Christian 10056.1.1 ity of 3.412.2.7 [place] .3.436329 MD Karl Medrano susana [facility] 2021-09-30 2021-09-30 Outpatient KYLER DRIVER MDA MDA [id number] 11:34:41 11:41:58 CHRISTIAN meza 2021-09-30 2021-09-30 Travel 1.2.840.1 1.2.202.276 [id number] Univers 00:00:00 00:00:00 21093.1.1 350.1.13.41 ity of 3.412.2.7 [id number] [place] .[id number] 084.8 [facility] 2021-03-23 2021-03-23 Outpatient KYLER THOMAS MDA MDA [id number] 11:10:26 11:10:26 DANA meza 2021-03-23 2021-03-23 Outpatient KYLER DRIVER MDA MDA [id number] 10:25:02 10:41:31 CHRISTIAN meza Results Test Description Test Time Test Comments Results Result Comments Source CA 125 2022-10-19 15:12:00 Test Item Value Reference Range Interpretation Comme nts CA 125 (test code = 9.5 U/mL <=38.0 Results greater than 11,500.0 U/mL may not 5169) be reliable due to matrix effect with extended diluti on as it exceeds the collet maker's recommended limit. Caution should be exerc ised [...] methods are not interchangeable .Testing Performed at [facility], [address] [place] [address], [address], [place] [address] [facility] [id number] 17:40:43 Test Item Value Reference Range Interpretation Comments POC Crea (test code = 1.0 mg/dL 0.6-1.3 [facility] [address]-0) especially hydr oxyurea or supplements, such as [...] of various anal ytes in whole blood. Th e device uses a s yesi disposable [...] See_Comment Myesha l eGFR >= 60 = 12311-8) mL/min/1.73 m2 The eGFR is calcula elena using the CKD-E PI equation. The e GFR declines with a ge. eGFR <60 mL/min /1.73 m2 is considere d as "decreased" Thi s equation should only be used for pat ients 18 and older. According to e National Kidney Foundation's dney Disease Outcome [...] Normal eG FR >= 60 code = 79540-6) mL/min/1.73 m2 The eGFR is calcula elena using the CKD-E PI equation. The e GFR declines with a ge. eGFR <60 mL/min /1.73 m2 is considere d as "decreased" Thi s equation should only be used for pat ients 18 and older. According to e National Kidney Foundation's dney Disease Outcome [...] GFR 15-295 Kidney failure <15 (or dialysis) [Aut omated message] The sy stem which generated this result transmit elena reference range : >=60 mL/min/1.73 m2. The reference range was not used to int erpret this result as normal/abnormal . POC Clean Dev (test Yes code = 6672) Performing Lab (test [facility] code = 82379) [facility] Juanito cline, [address] [address] [facility], [place], [place] [address]; Point of Care L ab Director: Eli anders MD Lab Interpretation Abnormal (test code = 85860-4) [facility] [id number] 17:40:43 Test Item Value Reference Range Interpretation Comments POC Crea (test code = 1.0 mg/dL 0.6-1.3 Medica tions, 03639-9) especially hydr oxyurea or supplements, such as [...] See_Comment Myesha l eGFR >= 60 = 74307-1) mL/min/1.73 m2 The eGFR is calcula elena [...] Normal eG FR >= 60 code = 29777-0) mL/min/1.73 m2 The eGFR is calcula elena [...] [facility] code = 16538) [facility], [address] [facility], [place], [place] [address]; Point of Care L ab Director: Eli anders MD Lab Interpretation Abnormal (test code = 97598-9) [facility] Oximetry [id number] 20:46:40 Test Item Value Reference Interpretation Comments Range POC O2 Saturation, 100.0 % 95.0-99.0 H Arterial (test code = 52965) POC Oxyhemoglobin, 98.8 % 94.0-98.0 H Arterial (test code = 71575) POC Hemoglobin, total 10.5 g/dL 12.0-16.0 L (test code = 38705) POC Carboxyhemoglobin 0.0-1.9 (test code = 69647) POC Methemoglobin 1.8 % 0.0-1.5 H Method ronak cription: (test code = 73342) The ABL8 0 FLEX CO-OX OSM analyzer [...] OX Draw Site (test Aorta code = 44281) Performing Lab (test MDA Main Main Ca mpus code = 89341) [facility] Lab, [address], [place] [address]; Director Speech Language: Tanya Navarro MD Lab Interpretation Abnormal (test code = 29600-3) [facility] CenterP[facility] Oximetry [id number] 20:46:40 Test Item Value Reference Interpretation Comments Range POC O2 Saturation, 100.0 % 95.0-99.0 H Arterial (test code = 79557) POC Oxyhemoglobin, 98.8 % 94.0-98.0 H Arterial (test code = 25610) POC Hemoglobin, total 10.5 g/dL 12.0-16.0 L (test code = 22741) POC Carboxyhemoglobin 0.0-1.9 (test code = 91372) POC Methemoglobin 1.8 % 0.0-1.5 H Method ronak cription: (test code = 06248) The ABL8 0 FLEX CO-OX OSM analyzer [...] OX Draw Site (test Aorta code = 35438) Performing Lab (test MDA Main Main Ca mpus code = 73601) [facility] Lab, [address], [place] [address]; Director Speech Language: Tanya Navarro MD Lab Interpretation Abnormal (test code = 98223-5) [facility] Interpret[facility] Antibody Screen [id number] 17:46:53 Test Item Value Reference Range Interpretation Comments TMP Auto Neg At the present ABSC Interp time, patient (test code = plasma shows no ____JESSI ROGERS 7535) evidence of RBC MD PATY, P hD - alloantibodies. [id number] d by: Mookie HERNÁNDEZ, PhD - [id number] D ate/Time: 11.28.2021 11:4 6 AM BOX PULLER Transcribed Eduar e/Time: 11.28.2021 11:4 6 AM CSTElectronical ly Signed By: JESSI NEWMAN MD, PhD - [id number] on 11.28.2021 1 1:46 AM [facility] Interpretation Antibody Screen [id number] 17:46:53 Test Item Value Reference Range Interpretation Comments TMP Auto Neg At the present ABSC Interp time, patient (test code = plasma shows no ____JESSI SCHWARZEA 7535) evidence of RBC MD PATY, P hD - alloantibodies. [id number] d by: Mookie HERNÁNDEZ, PhD - [id number] D ate/Time: 11.28.2021 11:4 6 AM BOX PULLER Transcribed Eduar e/Time: 11.28.2021 11:4 6 AM CSTElectronical ly Signed By: JESSI NEWMAN MD, PhD - [id number] on 11.28.2021 1 1:46 AM [facility] 16:52:30 Test Item Value Reference Range Interpretation Comments ABORh. (test code = 882-1) O POS [facility]2022-[facility]-07 16:52:30 Test Item Value Reference Range Interpretation Comments ABORh. (test code = 882-1) O POS [facility] HospitalClot Expiration [id number] 16:52:26 Test Item Value Reference Range Interpretation Comments T & S Expiration (test code = 12/01/2021 5318) [facility] Expiration [id number] 16:52:26 Test Item Value Reference Range Interpretation Comments T & S Expiration (test code = 12/01/2021 5318) [facility] HospitalAntibody [id number] 16:51:56 Test Item Value Reference Range Interpretation Comments ABSC. (test code = 890-4) Negative ABSC [facility] HospitalAntibody [id number] 16:51:56 Test Item Value Reference Range Interpretation Comments ABSC. (test code = 890-4) Negative ABSC [facility] Oximetry [id number] 15:45:17 Test Item Value Reference Interpretation Comments Range POC O2 65.0 % Saturation,Venous (test code = 90229) POC Oxyhemoglobin, 63.5 % Venous (test code = 20399) POC Hemoglobin, total 10.6 g/dL 12.0-16.0 L (test code = 70942) POC Carboxyhemoglobin 0.5 % 0.0-1.9 (test code = 60652) POC Methemoglobin 1.9 % 0.0-1.5 H Method ronak cription: (test code = 17827) The ABL8 0 FLEX CO-OX OSM analyzer is a portable, autom ated analyzer that measures oxygen saturation (sO2 ), concentration o f total hemoglobi n (ctHb), fractio n of oxygenated hemo globin in total hemogl obin (FO2Hb), fracti on of methemoglobin i n total hemoglobi n (FMetHb), and fraction of carboxyhemoglob in in total hemoglobi n (FCOHb) co-oxim etry parameters in [facility] blood. The anal yzer uses spectrophotomet ry to perform quantit ative measurement of the parameters list ed from a 65l sa mple. POC OX Draw Site (test R atrium code = 81398) Performing Lab (test MDA Main Main Ca mpus code = 33115) [facility] Cli nical Lab, [address] [facility], [place] [address]; Director Speech Language: Tanya Navarro MD Lab Interpretation Abnormal (test code = 19797-3) [facility] CenterPO Oximetry [id number] 15:45:17 Test Item Value Reference Interpretation Comments Range POC O2 65.0 % Saturation,Venous (test code = 35607) POC Oxyhemoglobin, 63.5 % Venous (test code = 42273) POC Hemoglobin, total 10.6 g/dL 12.0-16.0 L (test code = 06635) POC Carboxyhemoglobin 0.5 % 0.0-1.9 (test code = 96733) POC Methemoglobin 1.9 % 0.0-1.5 H Method ronak cription: (test code = 82333) The ABL8 0 FLEX CO-OX OSM analyzer is a portable, autom ated analyzer that measures oxygen saturation (sO2 ), concentration o f total hemoglobi n (ctHb), fractio n of oxygenated hemo globin in total hemogl obin (FO2Hb), fracti on of methemoglobin i n total hemoglobi n (FMetHb), and fraction of carboxyhemoglob in in total hemoglobi n (FCOHb) co-oxim etry parameters in [facility] blood. The anal yzer uses spectrophotomet ry to perform quantit ative measurement of the parameters list ed from a 65l sa mple. POC OX Draw Site (test R atrium code = 74394) Performing Lab (test [facility] code = 96998) [facility] nical Lab, [address], [place] [address]; Director Speech Language: Tanya Navarro MD Lab Interpretation Abnormal (test code = 66282-3) [facility] Glucose [id number] 14:58:52 Test Item Value Reference Interpretation Comments Range POC Glucose (test 102 mg/dL 70-99 H RN Notifie dCapillary code = 31834-4) blood sample s, e.g. obtained by fingerstick, [...] Capillary code = 9554) Performing Lab (test [facility] code = 01768) [facility] MD Jazmin ackerman Clinical Lab, [address] [place], [place] [address]; Director Speech Language: Tanya Navarro MD Lab Interpretation Abnormal (test code = 39290-2) [facility] Glucose [id number] 14:58:52 Test Item Value Reference Interpretation Comments Range POC Glucose (test 102 mg/dL 70-99 H RN Notifie dCapillary code = 66115-0) blood sample s, e.g. obtained by fingerstick, [...] Performing Lab (test MDA Main Main Ca [facility] code = 20067) [facility] MD Jazmin ackerman Clinical Lab, [address] [facility], [place], [place] [address]; Director Speech Language: Tanya Navarro MD Lab Interpretation Abnormal (test code = 96349-3) [facility] StantonCOVID-19 (SARS-CoV-2) PCR- Asymptomatic [id number] 04:33:25 Test Item Value Reference Range Interpretation Comments COVID19 (SARS Not Detected Not Detected CoV-2) Result (test code = ____[place] [address]-8) qualitative reverse-transcr iptase polymerase sukhdeep n reaction [...] patients provid ed by the manufacture r ([employer]) c an be reviewed at:https://www. fda.go v/media/909126/ downlo ad. A fact shee t for Health Care pro viders is provided by the collet maker ([employer]) and can be reviewed at: https://www.fda .gov/m edia/549815/alba nload Results must be interpreted wit hin [...] were verified by the Microbiology Laboratory at [facility], CLIA Accreditation # : [id number] and CAP Accreditation # : [id number]. COVID19 SARS LUBRICATING SPECIALIST Swab Source (test code = 30325) COVID19 SARS Pre-OR Procedure Indication (test code = 06180) [facility] (SARS-CoV-2) PCR- Asymptomatic [id number] 04:33:25 Test Item Value Reference Range Interpretation Comments COVID19 (SARS Not Detected Not Detected CoV-2) Result (test code = ____[place] a 49304-0) qualitative reverse-transcr iptase polymerase sukhdeep n reaction [...] patients provid ed by the manufacture r ([employer]) c an be reviewed at:https://www. fda.go v/media/057808/ downlo ad. A fact shee t for Health Care pro viders is provided by the collet maker (Haylie dwyer [employer]) and can be reviewed at: https://www.fda .gov/m edia/755733/alba nload Results must be interpreted wit hin [...] were verified by the Microbiology Laboratory at [facility], CLIA Accreditation # : [id number] and CAP Accreditation # : [id number]. COVID19 SARS LUBRICATING SPECIALIST Swab Source (test code = 95733) COVID19 SARS Pre-OR Procedure Indication (test code = 41806) [facility] [id number] 20:51:59 Test Item Value Reference Range Interpretation Comments TSH (test code = 2.77 See_Comment [Automated message] The 65114-3) system which ge nerated this result transmit elena reference range : 0.27 - 4.20 mcunit/mL. The reference range was not used to interpr et this result as myesha l/abnormal. [facility] HospitalTSH2022-02-25 20:51:59 Test Item Value Reference Range Interpretation Comments TSH (test code = 2.77 See_Comment [Automated message] The 41461-7) system which ge nerated this result transmit elena reference range : 0.27 - 4.20 mcunit/mL. The reference range was not used to interpr et this result as myesha l/abnormal. [facility] HospitalFree [id number] 20:51:58 Test Item Value Reference Range Interpretation Comments T4 Free (test code = 3024-7) 1.57 ng/dL 0.93-1.70 [facility] HospitalFree [id number] 20:51:58 Test Item Value Reference Range Interpretation Comments T4 Free (test code = 3024-7) 1.57 ng/dL 0.93-1.70 [facility] Add-On Test 2021-11-18 20:06:39 Test Item Value Reference Range Interpretation Comments Ordered (test code = 6568) Test Added Test Needed (test code = 7604) TSH, Free T4 [facility] Add-On Test 2021-11-18 20:06:39 Test Item Value Reference Range Interpretation Comments Ordered (test code = 6568) Test Added Test Needed (test code = 7604) TSH, Free T4 [facility] HospitalUrinalysis with Microscopic 2021-11-18 18:41:22 Test Item Value Reference Interpretation Comments Range UA WBC (test code = 3 See_Comment H [Automa elena 44244-5) message] The system which generated this result transmitted reference range : 0 - 2 /HPF. The reference range was not used to interpret this result as normal/abnormal . UA RBC (test code = See_Comment [Automa elena 40711-6) message] The system which generated this result transmitted reference range : 0 - 2 /HPF. The reference range was not used to interpret this result as normal/abnormal . UA Mucous (test code NOT SEEN Not Seen-Trace = 17587-7) /HPF UA Bacteria (test NOT SEEN NOT SEEN /HPF code = 70656-1) UA Squam Epi (test OCC None-Occasiona code = 80054-0) l /HPF UA Trans Epi (test OCC NOT SEEN /HPF A code = 54714-6) CHRISTOPHER (test code = Some reporting CHRISTOPHER) parameters within the Urinalysis test have changed due to the implementation of new instrumentation in the [facility], allowing greater sensitivity of measurement. Urinalysis results reported by the [facility] using existing instrumentation, as well as Urinalysis testing performed manually or by backup methodology at the [facility] will remain relatively unchanged. New reporting parameters and units will now be reported for all [facility]. Lab Interpretation Abnormal (test code = 67884-8) [facility] HospitalUrinalysis with Microscopic 2021-11-18 18:41:22 Test Item Value Reference Interpretation Comments Range UA WBC (test code = 3 See_Comment H [Automa elena 73523-6) message] The system which generated this result transmitted reference range : 0 - 2 /HPF. The reference range was not used to interpret this result as normal/abnormal . UA RBC (test code = See_Comment [Automa elena 52896-7) message] The system which generated this result transmitted reference range : 0 - 2 /HPF. The reference range was not used to interpret this result as normal/abnormal . UA Mucous (test code NOT SEEN Not Seen-Trace = 73837-2) /HPF UA Bacteria (test NOT SEEN NOT SEEN /HPF code = 74922-5) UA Squam Epi (test OCC None-Occasiona code = 86345-0) l /HPF UA Trans Epi (test OCC NOT SEEN /HPF A code = 35235-5) CHRISTOPHER (test code = Some reporting CHRISTOPHER) parameters within the Urinalysis test have changed due to the implementation of new instrumentation in the [facility], allowing greater sensitivity of measurement. Urinalysis results reported by the [facility] using existing instrumentation, as well as Urinalysis testing performed manually or by backup methodology at the [facility] will remain relatively unchanged. New reporting parameters and units will now be reported for all [facility]. Lab Interpretation Abnormal (test code = 04408-3) [facility] HospitalaPTT2022-02-25 18:18:01 Test Item Value Reference Range Interpretation Comments aPTT (test 35.9 See_Comment [Automated mes alexis] code = The system Iterasi 86322-5) generated this result transmitted ref erence range: 24.7 - 3 6.8 second(s). The reference range was not used to int erpret this result as normal/abnormal . CHRISTOPHER (test code This lab cannot be = CHRISTOPHER) scheduled at the following locations due to collection/proccess ing restrictions: [facility] and [facility] HospitalaPTT2022-02-25 18:18:01 Test Item Value Reference Range Interpretation Comments aPTT (test 35.9 See_Comment [Automated mes alexis] code = The system [facility] h 35916-4) generated this result transmitted ref erence range: 24.7 - 3 6.8 second(s). The reference range was not used to int erpret this result as normal/abnormal . CHRISTOPHER (test code This lab cannot be = CHRISTOPHER) scheduled at the following locations due to collection/proccess ing restrictions: [facility] and [facility]. [facility] HospitalProthrombin Time with [id number] 18:18:00 Test Item Value Reference Range Interpretation [...] following locations due to collection/procc essing restrictions: [facility] and [facility]. Lab Interpretation Abnormal (test code = 57372-8) [facility] HospitalProthrombin Time with [id number] 18:18:00 Test Item Value Reference Range Interpretation [...] following locations due to collection/procc essing restrictions: [facility] and [facility]. Lab Interpretation Abnormal (test code = 88115-4) [facility] HospitalHemoglobin [id number] 18:14:44 Test Item Value Reference Range Interpretation Comments A1C (test code = 5.6 % 4.3-5.6 HbA1c value s >=6.5% are 4548-4) diagnostic of d iabetes mellitus.Diagno sis should be confirmed by repeat testing.Therape utic Action suggested: >8.0 % HbA1c; Goal oftherapy: <7.0% HbA1c [facility] HospitalHemoglobin [id number] 18:14:44 Test Item Value Reference Range Interpretation Comments A1C (test code = 5.6 % 4.3-5.6 HbA1c value s >=6.5% are 4548-4) diagnostic of d iabetes mellitus.Diagno sis should be confirmed by repeat testing.Therape utic Action suggested: >8.0 % HbA1c; Goal oftherapy: <7.0% HbA1c [facility] HospitalUrinalysis w/Microscopic if [id number] 18:07:36 Test Item Value Reference Range Interpretation Comments UA Color (test code = 59916-1) Yellow Straw-Yellow UA Appear (test code = [...] A Lab Interpretation (test code = Abnormal 11750-5) [facility] HospitalUrinalysis w/Microscopic if [id number] 18:07:36 Test Item Value Reference Range Interpretation Comments UA Color (test code = 80735-9) Yellow Straw-Yellow UA Appear (test code = [...] A Lab Interpretation (test code = Abnormal 06942-5) [facility]US Breast Complete - Bilateral 2021-11-04 19:45:45 Test Item Value Reference Range Interpretation Comments Radiology Study observation (narrative) (test code = 58773-3) IMP (test code = No mammographic evidence [...] Evaluation Lab Interpretation Abnormal (test code = 72373-3) [facility]US Chest for Breast Ultrasound (Add-on Only)2021-11-04 19:45:45 Test Item Value Reference Range Interpretation Comments Radiology Study observation (narrative) (test code = 77363-6) IMP (test code = No mammographic evidence [...] Evaluation Lab Interpretation Abnormal (test code = 38106-4) [facility] StantonCytology Image-Guided FNA [id number] 00:43:00 Test Item Value Reference Range Interpretation Comments Gross Description (test n6zwhTSmGBTdxVTMPFvc code = 6840435025) YQdttgZuELVlrMIzU3Bo pggqFLtyIG3cFI0cdTdl rDVaeRQeZU7QOTNbGjWh XHBhcGVydzEyMjQwXHBh zCJwkLQ6YFPgOB2txcqj JLooKJfuUOOdynE5DJHj uVOcB0AmEQJsEL5adcut PBL7IIjyeE8itzVFSduy Rw8frUEtkWddPxYuCmGe YXJzZXQwXGZuaWwgQXJp SHb5tL6SFvpdX10rp3J7 Jyj0HTVpKHDkM7NqVR7h SSGugTTjV08RDnnsTFT0 HZISVijuKTXnFF4Wh6mu WTTxvGWoCZZ2PTcidEIh KZCyUOWjTBo8RJXiDCcg yGQlWX2ldOsmRoowxSqy m3JvgDYmGKbzAXKpMXEq VGicWXQgWX3KBoUyVZAf EKVdIJCkOYy6FXy3IV5E TxZqQKQzPSVzHjd3GNUh DTr3HCjoOH0PERi0QtQ0 RLI9CDG1AFD2UEGiMIDt MiBcXGYgQXJpYWwgXFxm cyAxMCBcXGZiIFxcZmwg CInoY72clSmdoH1mZwar dlJkYOV4HJXqbtAQVkbr bGFpblxlcGljTmVzdERv YzEgDQpcbHRycGFyXGxp bjBccmluMCANClxsdHJj aFxjZjFcZnMyMCBTcGVj qG5evoDsbDWuP8GiGHW0 XHBhciANCjMgRGlmZiBR dWlrOyAzIFBhcCBTdGFp xcHJrIgwSNKglANpPC6J EGHgkXetTBdwfr91IEK8 y0tcpSZoYFznHrmvbTGq tyF5ACkLZRYSRRhMFkZf EE6cVBlTJ7YIUBrXJikn KPD0QXdwuPD8m9cnxDSl y4c3GOmxEYJ8aYNlfBtu xWf5ZBKxv5HwaMJvoWCs lIMkjRP9OFAxLOxly2xd SHSgWKkvw4FtLWxFQLRG XK6BDI4wgWF4M3dJPJOK P1tGzTL5x6yqzFMzo4u5 PJsmNKX6nABxs01sdJbp RhhcxDA5YKxtQytwiJ6m dCBIWVBFUkxJTksgbmFt GQ6OFWcWQB4IyDT5y9sd rXNfn5d8NFtqWBZ3xNec tAQsbwehuHJjlWsipg96 USM4GYYcNOjariEaQPRu qAKlBBgwHedgkPZ3DYry BblmsM0gjMSGSMTDSbdX KjafwwJsZN8VLPSIHK6L aFY8QtWvxGN7RE34KTQu QTNdgVWnBLgfD205ITYv TVftPUh2mtQbUYOfSNdt djSgZBQfcbUEGA8FSHNe ciANClxjZjAgMSBDZWxs EXBtb8AkDIQvmlFANmBj dGUvVGltZSBQbGFjZWQg iR7bRr0ukTLbgT37FStv wu31OAI9i1kceFUiBAig YegmhBBldfC1YBbMMHSF IUiHIbBqLJ0xFIbONlsO GZpHJdk5NIS6GvrlgCKQ KSKUEGPOAMfjaAj1IRc5 fXtcZmxkcnNsdCBcJzFD yS4yGi2oSX2vHsovHwtd oRC3IXebVdinrR1oiEXF GAMHCxuDQfcaywSsYC4R XM5KMV7LlMKeYYwkqEB3 IS2AWKdCTMNOcEN1lQtu hTq0b5xmjPElj9e9FFox ZWW8wHvhvXWslljhvDEi aFxmczIwICBccHJvdGVj oLkwStbxeUD0GRvsFuey vE6qoLXFIRWKBcbHAkeb ibWtXH4XSM5CFwDMNC73 GHA5KXnIW4g2VXx7qWN7 nL95QYQwHSHifRNkURhd D007TBlwCILCXIxgPmuw oXQ6LWuyRmemgS2keZZZ RQULVkqXUsmcmhVtDF9Q XS9RSR5AwZbudDN3Ka2R lDL6cPmqdNp4f9duzCUp l2n1HUkoFUD3vEoeqVYa blxsdHJjaFxjZjFcZnMy ISicPWRuAIaqcANvJF6U F0f8JUdkFG9uMJSbOKSq jnEFTrgxhOFesQH2SUZw z0Iyg4QxAW06VFOnaiZg sUWpvJ7ydgWyVKZvjGCa yMO4GKXivTXrGYJzuAYv hWSxeKdoFhvpiVP3YCnm JtpauS8slJMWAGGODmdF EayemiAuKC0CHBOSXzKS SF78MsI9IwO3BBw2xIig NrxphzRwlLPzWfITfK67 SSirMxzmhGX8TKwxUogz sE7koAZRAPOEYozYYrdz ceXoKD6VJLYANC4XjEN7 QwT7bGU5RT48QMLnCFYi gRWrYQpfR144NUTzZVmi ZMw2egNzXOItCHbxhdUi ZNXxkFHLlz5uF7FtCXYf QLbwvvWDUSDANIxUQ4Du QRYVDSPACQZqGnPPEH7x JqT3WdC4IY46DlhqRvS2 ZiT5rMM3LOXJDIOSARgK I0MaUVWALWRYWPXsPS3W QEdGBVUXIPNLX59JPYPQ LGZOP5IAV9xIYNPeb1Um w55nsKxQEJXQLVVJN86I AWJWNEXFU8KMTBFNCSZK DMpIHBGVOs8LTRTISKJO KD2MVIwVRyAzYIaktOQh TWwbGBO8YQn3YNb8nIGl g9JqyKV9FeZ7TmLvsORN VPPIOLnJZHBJCg8BVPWA WHOIKG0SHvCrN4XFOJ5Y Sx8JXYEMVAEJHX2ADPbX WsLnU4JIEW4CLj4CPKNK OWOFAN0TKtFuPKLKM9BB PzPXW2lcHBMQYYGTAFBx HmJIIT1pPLQKGO3XVPUA BBDRO72GWPXRRVGSF5PD XU5DFYRkqKTWBAC8EZ2i DDq4MBukJITnG0DsV3Tc wmYbiPAoLVLlikZxg9wg FJB7XVYliIZqsWExUcQk SbzaQYS7FEKgRWzrMA0F TWVbLSO9HMqrgU88oOYf BT1PBGEmEGtjDYNmWWEt ymJ9NBItzMJpXLM8EW2b hMumtNScgmzsdgO8ZA6G fQ== Immediate Assessment Adequate (test code = 9837) cellularity, favor malignant Major Classification MALIGNANT A (test code = 9839) Diagnosis (test code = o1jtnIEpFNSelJU6VaKw 34) HDNeq9jon8OggUBpmDGh GBtenVJjmmCpvl59rLY4 cA32FX3wTVDiHvY1YESt glT0Yca1JXTtDNMglCRu J056a6bkv6aizuJsyYD0 HTYoDYXnW6VuQG5rUPTt lSEaW67rkLTgIEZ8BTCh KYWgtQCpBHOeXES5UFUl jFFxH4ehRFBxJG4hupyd RHstROstDJXidYS2MZYa dZDyS3SmTFJuMIczMKNc nte0RuMxCs1voIDeeHpj ZMjrH1lrhL7hWpE0ZJuz S5xjyI5oMTi9DHyzGAIf vVP0wzP1MVQmtCLrR6Sv kG5lTLEjUV1xrff4t7yw OUV2ZBgvEOLwUqF5esQ5 NDBccGFyZFxwbGFpblxm irBqDUUmHRAHUnRCg0C8 TTXqq5K3EEeoyRNxrFEb SLt1oRMmIUKfzrNbfgFq VWhsSWUokWgqUOXhb424 GJAgvef5UIKohSWvXPqk UvQhDQuKT0rmX4AKNHAm O4FWP3lDY39FRKTIRyTP A9YMBlHtR2oMQWJILINK HN8XD5CsDWmFTK6OJPPW MzGQQEqPAZVPVL1sWBRB QZBZLMCqn0IwOFXnrY3y bnQpXHBhcn0= Comment (test code = i1kxgOGtDFNwvJV4UzZe 9835) DCSjg5ihu1TuvDZkdRUl BAarnORvrrXoqa71oOD3 uH53AX1uUZLoLwS4FFDx cnT2Hyt0QQToQNKqsVJb A960o3qff8tlynDetFJ7 sGjkBCMvvwpyOjQ4JArx HFProchqVCk8NVawAGQs lFD4UZFfuFEsZ0ZjSZMj XS9wcne3PRG3YOxdCGYr UsU0ETXkqAXfEDHxlNxb KZdkq814TWG7YxQcEMNg xkIhbVlukT5jOnSfDFPS uR71zg3oeVPhisXmpTHg Ez9byGPaPE9uOFWdRLOb GUqnQQUry8RcGLMwP6Ku x29vVPJdx3zvwFjdoWO9 qOBhcCCfk9BfO9RbaTJm YHWdHEXhr0y3wUQrDVUm urCJQTjlLWcfA2IhTMFb Gp0lSHmlNIViHQEvSLPy PmV3a6KwYARzSNTQSvId GiLfLG3dIDT5pW4eXAIh kMlwbiJotLJhCL9xGMzn b4XbTvljMCliR9MvIKIe OBcmYRfiPGNyojbct6i4 uPG9yULskBM5wSUroHjp ECbpw1flQFlkp1Dyjrbh r3Hrn5Ezc5UnLXCqlgEd pz3bZS9tgHSlKBPuUSKm LJcgWWKlu8ZoOWQlBBRe zrW4yN7wJOijxxBtr315 dkuasHFkaggyvU34UWIe rgM3zRDvCTXmbuWwNTim G90ua7uhIkClmJCmSWRc Z88tT3JbybVmlNNrx4Bd GH1bEPEoFELigY9fs1nf EGUyYe0aRZYdMFDhjrKp iDSuOQC4MTaiMYTxPN5v cGFyfQ== Retained/Biomarker x1sboLCvNVUwjYP4CvFp Testing (test code = AUZmv6tvc4AwhHWjhEAg 9838) MAvrqXTrauUeiw72wGU0 kV68JY0oFGZpZkY2OOCb fzF2Mmj6MGHoCBTfwZNu Q369g7cqt9weezHrsHU5 kPteBHBfrbxwNxM2RRrf INSudkauQMv4RDjgILGu tIO8KKVcpNPmO1KyQGRn YX3nudi8BMR0HKmmTLQu VtE8RAKfkWSpKLDwgDdl GIwoe488TMD3SeQcGEVp hkGmnBggoS0uCfLcTNAL Uat5UkyuEwCNSIS7AURr mPHpUA2STRBBHyb0TD8d TMEhbFDnFV4AZWXHXRN6 T4RqmMHtII6RTVRCEHgx R6voDKLmOGKQDUAZM8e2 MVNccGFyfQ== Informational Points s9nuiVRjZHDeyLQnTwHk (test code = 9836) JBRaOPPjp3icSWIdrLYy ZzEwMzNcZnRuYmpcdWMx THHqBiUdb1gmn200nEVz f8ziKBPmGuE9rWSaKRHz rLWeP245WVSkMCtsv6ov l2CuIGNcmWCkm9Y1LBVZ OUryTFKLCKz6h4ekAqZn OaZ8qRBtOUjbP0zrwoNr jLDmQNYtKGp1pF76MPUb aC2rdNRnZTdigcUwNjK5 DQchBIEsFpZ7PGBxeOBb ZGQvX4svMLIyQVsiKQEs CIlxtSNbXNW3gJvkw3X0 bGVzaGVldHtcZjBcZnMy WhAWr9NmQVm2wGrwN9Ig EVPpIlX2eLPlMNBfIKqg YSDpMUVmzgE3cP31SHcf nvI8lDGqj4Bek84jk044 tV2jjRJxXVB2TOXpMTLs rCLdQCZxYPS6HXXmjIRd Y1geKUHfTH9deauwXYep YHedFKNruWJ7TMGajJBq M8LbYZLnYZhxUSNzihk5 TdHjGi9mvMOzoIgxYPri v2iew0owkGMuVyk3VOGy UnGwLpkiZJesk6Qrb4jf HFAjko7vOKP8yMNlqXyi r5T9qIEmCKCqjCCmfkRt NKCdrx09sNTxiPThhPXp wq2sliJrzRSpjYXlFRP0 cHNocnRuXGZldDRcYWVu TRLcI1iaSwCrwkTaK4as H5QdLBOwYWHtDJIyWcBn kuNtp6Ivi1KkxFIbfSo4 y5onFSPnRDLsuSqen3rr UDD5XUAwJ2I6gWEvi6jm MUhgFNHbpDY4nvU2FHCy xFWoQ1KgkU6iXUXlYJ9h ixx2a9ywVFN8YWzkCTCn XoH9wvD6YQJfwXLkGSFe iGyvTAuhj666FLK2EqPp QZFmn7NcI1PkuCbfU61h oBosG64iGDCegJjhwR8i uVduyF8hHaSvAdNzCMon bFxwbGFpblxmMVxmczE4 RZdvjughBJZhYFbtS0ed QdUyHUFgzXfkEUowf7Ij QADhRYOcPXzosGAAv97g YFEhl5KnNOCjiT4wuVRz QSohumEcvXI5MRqplzQa GdNhpcBwJYNhfQ5fJSBa GD3dWXHbckVrne5rafEt NOSdTHXnK6PokruqgEgi deOkFQRrlq4dqdGcNRH7 ZMMRYI4YHVSrXUIat68k MBQftTywlV6rdURsfkHu CYNmm6IqkW3qnJZRFNCv U0klJZ1rXNdvc7FrvTMx zCRegFO3SFYlc1AgPqCi phZjxFHpiWAgO1BewEka Q2sjIFBfJGEykgMnuTPh f8YwAMDsoYU5cHVoZF0O HvWVb00qRXOeGTUUsjEu ZKPwqEbdjZC9ssN4pB9a WyEWcIlrRNDla3Zfe0Ff K3edCTTaDAPnhGRciToh hJ4dTuNeDmPgLXjyEW9w YBDwO6wgaLZiZEXqLTZm Y9ojVdNgqO8dyLzxHMqt ZjJcZnMxOFxsdHJjaFxp JChdr4YvZI71b1YeocBS bBDxxAY6fP3zr2z3YHaw Mq5pHRLnaitceZfkwG9u KzJoTgDlRXmhFV2lIUIb F3sfzXNbQCWiMDYzR1fr EyLhyQ1eaXncKMuiYvHu ZnMxOFxpICwgXHBsYWlu XGYxXGZzMThcbGFuZzEw MzNcaGljaFxmMVxkYmNo ZNWwXGzjG7zgWvLaL8Bf HLKaSZyeiIIkR4azwSSa EjmkSAATWQV3VIYuKAO5 AKbfZLhvwRS6k37jRUHx zNSiKLc8BAt5UZUhBMia XGYxXGZzMThcbGFuZzEw MzNcaGljaFxmMVxkYmNo NRUgLDohY8feElViO1Cz XGZzMThcaSAuXHBsYWlu XGYyXGZzMjJcbGFuZzEw MzNcaGljaFxmMlxkYmNo SLLnUCjzH6pkGhFmEwEr MlxwYXJ9 Lab Interpretation (test Abnormal code = 45385-5) [facility] Interpretation 2021-10-28 00:21:10 Test Item Value Reference Range Interpretation Comments Submitted Clinical History o7ygzXFaFNAsv9poCKO (test code = 13006) mbGFuZzEwMzNcZnRuYm pcdWMxIHtccnRmMVxzc 3RfN1LvPaNkCKnubdQd XGRlZmxhbmcxMDMzXGZ 0bmJqXHVjMVxkZWZmMH tdDn1kxPQrqMnnLiFvJ OMzn4fmifNUgrarvDw4 x5sfUKBbEyP7pHNbJPv aP0afbxYidCLfCOHsZN n0eC83QKLolW4mgTNeT GfxrrKcIdI2YLawSLBm XmH9QOEgkZJvUENzX3o yZWQwXGdyZWVuMFxibH YgEEM4fYrsb3L9tZZol GVldHtcZjBcZnMyMiBO j9YyAHv9pGwaB0SoZGE vJyV0hFMoESHvNSnxYW OaBTUpwsT6cB17NEmai mI9oGAun8Xlz68qq238 wN8tyVBcDPD9OYZhFXA fuAXxQIMvGPK1DUVfeH MpL3maWJWfKC0xhqspH VvrZHwiPXFtpJO0ELOk gAKmA2PgVKArNYkaAYJ vbfh8HfKiPw1kqLRwmY ngDYcpa7ltq2ogxCOvF fz6AZSuKwVvEsevBBzq s0Tmv8foNYUrow2fVKF 8uEMudEwhn1R2kDTiWE UvlDOtnjFtYQBcVzN9X VdfLN7yiq87LRHnPCE6 dt9ksGWlpFtsgqUbtFX kKOynH2TqUFOpa634OI IrZ0CeXOTwj6Y3kwBbL oFfBNGpoED6ytI2MFNu DZl4mHSvppQ1ryBlvPL uA6mkgF6pMVIhUK4cjb uuo3xtCElvRRijEMRad SU7svI8WJIyuWUnS4Sf pV5cYGJkFDbiQMCfsfi 0LiLjKb6qaVFnnUgvZI xzYmtwYWdlXHBnbmNvb nRccGduZGVjXHBsYWlu XHBsYWluXGYwXGZzMjR zxXxphQijkX1lTnOdHf LvKGabKB1tTYWlO5uaa MClTYAyWCTcO0kxDwFu jQ1vuFilHBlpayZoFO3 sn5EqBYZzKKJeRUwhL9 8mtgLoz0ObPH8ui16zz MVdlP8dG0G6RL8qMMfj MOVyCVR5REW5CXHtEqS eFA1aGUEebP9qlTvfYW Gabyw6c19zcC9oO5S2K V68OTcrcCXiwfhxQKxe czIyXGxhbmcxMDMzXGh rZ6ghKkCfYSHdjNgzLJ mjy3UvHJVbLLSuLlDva GFyfX0= Diagnosis (test code = 34) m5ylqGAmCLMteZW7RnS pPUObd3pkv6DlaJFcpS MxWAbknCRldsNmsm26x RC0vR20RS6jABLiVjP5 OTFliuP0Guu2YFRmLTQ goEKbZ945a2hjx3wntt CrkXC0JAHhOOFzL9YeZ U7sBMVbcJYjG39itNXu NQN8KLLjCJJaqJGfBKH iQIW2BXLphNXyA5jlXD NiQQ7jqeljNCbpGVirF HUctVD7MAJsdNOdS5Jr OWDzQTxiYRYjguq7LnG cZw2ecBGnhWmrTRfdNJ JkXHBsYWluXGZzMjBcY 6RyTNX6SEajVyDsmZOa cqcoXHPgAiVdaOeuu7I vOI5iPEKgUWMueZ7mb2 r2YWMoirhneHfmJZxzo G36YcDiM1ZmYKUWN3lG SVZFIEZPUiBDQVJDSU5 ZXNXfPZVPFjAOJ2HFYi HzO2cFXMJCSYPMH3AYP B1MAYVPPZJZJxOxL0DX A7ROVRAOQhUGKb3OXF8 fJVGPSSMCT75UBA3QHA xwYXJccGFyZFxwYXIgQ zPOQ3ZCOMmnBBH2 Comment (test code = 9835) e8fzyXHmVJZrfGY5YpJ kAISdi2ozk3ZdrROjdF IdFJskiIVgifYmfq26z PI9cX83PS4bPGXlJoO2 WXRdsxA6Pce8IOGqQPI yfLUdR735s3ccg3fvuj KqkLH1tZclPPRandiqF hI1KYsdQOBfxrvlWDe2 YUefUIKfoFQ8JASqlPT fB1IgAQDiRZ9kemk9PY H6KTocIQTkFxI3AHXcn NXvYEZdzFacDWfsh753 RPI9QoFvPHEpihCjdXv msN0iMiAhTLEYmP41nf 4maED0i4FxCV1uI7HgY MV0VYzrcjYpthOzdPIn Xa1mkLKcGXLoKJIgmN8 3YRVvOMUzSA8nfPHssU ljIGNlbGxzIHRvIGJlI YGwf2o2zFVyBLMfpgMh lCZuf0CeKGUrlcM9ATm wYXRjaHkpLCBQQVgtOC zmtAA5YUoziCAfqnytO ILtKjX3x2AuDGYmSPAc CVMwKYUoYL99BZ76OGS gQIuaqsFnd1jghuaiUZ IDCCz9YQNiZG8tRSDbZ YVdFEodPV6eKGLDMQk3 BVEtSZ0aDAKdBGQxMLY uRMP9ed2qIxlcEYAuXA InqIX1o3cuC7aoRSFfV MTchF35vz3cbRG3b6Xg PY1pT1GgCTTzfyPjdrg zIGFyZSBpbiBrZWVwaW 5nIHdpdGggdGhlIGFib 6WfCMYtSZkix1Dpyr5m XHBhcn0= Gross Description (test v3ovpPGzLZCnwKJVPAv code = [id number]) wMFxhbnNpXHNwbHRwZ3 WekrsbIVlzEV3ySV7uz NcaoVRbuUIxGU5ZTGMq ZmYxXHBhcGVydzEyMjQ mFFOttTUbzGR2PCUwBY 1hcmdsMTgwMFxtYXJnc sU6LABbuUFjJ9YnBHMy DY1aofyhZUR6NIypaK1 zeaQDYozkGs8atYPanM tcZjFcZmNoYXJzZXQwX RNcyRueTMNmEUr2mI4G XucoK72qx7B0Wjz5QTJ rWNOoH0FsKM9rXYHzsZ RjE94CGpdlUUI7VBTTV phrNNZfIS2Ew3cxYFJa cSTiMIL4BZxefJFjETN kIGTvGXy9LLWcPDnjrL QwOH0mqDaeFnkywVmpu 2VjdCBcXGlkIDUxMDAy KVkjQXYyCP5FLdFuZNW oTNMgJYRhBTr1AJk3HD 7TKbIsKWHuEUOhVpm6H zViEYt9GYaqLG7VGIe8 KdI7UpRbKIH6GXW9BKM cXHQgMiBcXGYgQXJpYW wgXFxmcyAxMCBcXGZiI McaHifuFCnlK27ibSya hH9dOfwnqiVyVYW8TFD hciANClxwbGFpblxlcG ljTmVzdERvYzEgDQpcb HRycGFyXGxpbjBccmlu MCANClxsdHJjaFxiXGN mMVxmczIwIExlZnQgcG VsdmljIHNvZnQgdGlzc 1OyOV7sHJQcNUFqtQ0u x2mwu2z3nTHytU0oMDJ rZXJzOlxiMFxjZjAgIE 37zLBzsDpeUCTqkg09u Ws9YCMgz1MdJXRrc5Mr gKYnBR8vBSZ5mgexVnB xLjQgeCAwLjUgeCAwLj IuV25ykD3lWLozdiBxQ XRlLCBlbnRpcmVseSBz aGMbeYD5NJExcU6zASM uICBccHJvdGVjdHtcZm osuHZ9AHhfPyzyzC6fw CBIWVBFUkxJTksgbmFt AJ8MJJ8GLuLHOU51BwT zGFI8CAqUR9KCwRM7Gj t6FUn0sEgrHmmfpnHlv QHlSeCTwB9MREtbRnss rTR5AFkeUlfisP4hzTZ IWVBFUkxJTksgbmFtZT 5HQN6URM0CjDWsKZH7v CI2PNIVGdzryVV1bMK2 mB21GOYoTCJebKJjEIk oD442LTHsJYytRTm8il NoXGZzMjAgDQpcZXBpY 59us4VDn3GiKFAtn9ac qVvkt8NwqGVuQGrkMBX kiNXsVHzpsP2mQuSnx2 qtwXy7LHymhmL1QZRwp v9opHuliJ1gHJklj2je VFV6TZZrfXFclOOhHAx tdQtwgF3wGtJpEbr9VX pkXZNoB0AuF3NkatZ9O HBsYWluXGZzMTYgDQp9 Biomarker Block(s) (test a9suhDBtNJMjeHR7YzN code = 9841) sAKEge4hqf0DmoCHqvM CgVTgknMXvjbJunc13d SI0jB40DM2aONVaToM0 BCGrzkT5Kia3OETxHEV ybCLjF031f4qnx6nusx NokVD7dNvwVUVeuyyyZ cQ3VEpdZDOtdxsjBGd9 NIzpKHRwlOY6TGBtqWG eK0NuBCTgYN9kqnu5TQ Q6VTaxDOEoZqF8FVXak MMwVLKbwRxyTXqpj431 UFG8MgTvBIOxngKjsIi dhK4kQbDgADIYWkJBJQ ioNJFjDledOt9HHDQyx lxwYXJ9 Disclaimer (test code = d9dofKWxVZTtoRYdUgA 9844) cRRRhPOYoi0cfICJpqJ FuZzEwMzNcZnRuYmpcd EJcGUHhGhJza3uqd427 dPBtk7quBGKyJaT9iWA uPLNxgSLzD492DCEgXG pni3vey8UhZRSgbKOlq 8K0YXYJjynfuPc3cMod C46lz6V7RxkfL6yyPGU qXZFcX7ZqCK8gJSKjFy s2VUT1DOQ2EUCjJDNrK 6YjPB5rQIBtaJJjPTf7 q5jojMoxAFVuICR7m4d yEFgnwdJiWQ9khw8wdW d8w5edmpKkNMTqWNQec SQFXOLqE8WcaGuzFu9j lWe6hMuqUblqIYI2Cdf 2XM3gew24job8sPapPR HjszzmKwQ7CGqyHTMcf butNUm0QVkpJBCgrHJ0 DSTsdMDjB6KsFJPdSE2 jkuc1CXP5RYsmIZPkFw Y4BXOfeYVaXZFzcHoiA Sftm717SXQ9WpZnYQ1f S7Iyp0C9pK2caYEgGAJ krMZmDyIqZNUcan5neT IoCKyxw4JgRNK6ypU7k QBdtZYrJYErHE94Tpxg s6NlChjmAIZ7VCGflkP ln9Aoi8lsXdBydqLcW2 dqD3CzVSLrVVGwKNNzK qMuqrBno3Ugl4WbeAPq oFp9i2njNFTfQMWcwSb ws7dxORB0LHSwO2V6aC Uyc5uqLLqhEJVwjNT7a lD2MSFakFHzQ0WxoX4x UVYgIV0avfl6e4rnGNZ 5IOugKHXvLuE3zmS0VC BcaGVhZGVyeTcyMFxmb 389GXU8YtTwTOIuc1Cd V1LymEbrQ52udYprC17 gZDFpfRvxaL8iuAcwrF 5cZjBcZnMyNFxxbFxwb HTyyrbeESeaatO6KZvx kksbDSDkBAatH1ypUvE fVPWzwWimHXohy3OnWT IoGTLtCwxwzxA8KYGOs 13nRLNzd9GiNNBtkC2q cYYyPZznimGmnMC7QIa hdmUgYmVlbiBkZXZlbG 3zKACdHD4oTKPdjiUnc z9bqbMbARNdOZAiF4Oh cmlzdGljcyBkZXRlcm1 yiiSeTFX2OEDLUQ2DLC YnXYUpb01nFVVizBnrs F8emRCxcdHmKDNzt3Ou dJ0uySVHHJAvZ3bpZE5 tPHiyd4JvvTSmvWSbuB C9XGSqx6YcUeRycdFpv UHzhHHzS2JjpOiuE6to FOQxPFBtpvPzxDDrs8Y oHLAtxLI2cHFxOP5FMh BFa05bFZCbBKEYghHaO AFxqQlekHP3yuV5lR5r LiBJZiBhcHBsaWNhYmx wXYCql707sh0sheE3RQ PuIQOovania3BmTFNiC AEinV58ZMNyTZBwlu3n omfzuIDhmoHeJ6Rltji 9vG5pTKFfBCdwPCXsPU ZzMjJcbGFuZzEwMzNca GljaFxmMVxkYmNoXGYx WDezH1wbElHwJvOwWgr wYXJ9 [facility] by PCR Material Request 2021-10-25 19:36:01 Test Item Value Reference Range Interpretation Comments Archived Material Previously diagnosed (test code = 66967) tissues from [id number] were selected for molecular analysis. Results will be reported separately. [facility] METABOLIC [id number] 08:35:00 Test Item Value Reference Range Interpretation [...] PATIEN TS. CBC W/PLT COUNT & AUTO [id number] 08:10:00 Test Item Value Reference Range Interpretation [...]
[2023-04-22] MEDS ORDERED: methocarbamoL 750 MG TAB ONE (01:33)
[2023-04-22] MEDS ORDERED: HYDROCODONE/APAP 10/325 TAB ONE (01:34)
--- NOTE | 2023-04-22 03:57 | ER ---
Nurse's Notes [facility] Name: Misa Claros Age: 72 yrs Sex: Female : 1950 Arrival Date: 04/22/2023 Time: 00:55 Bed 14 Private MD: Diagnosis: Right knee x-ray osteoarthritis, exacerbation of chronic right knee pain, right knee degenerative arthritis Presentation: 04/22 01:23 Chief complaint: Patient states: My right knee is hurting it usually hurts because it vc1 is bone on bone but tonight it just won't left up and its moving down my leg. Coronavirus screen: Vaccine status: Patient reports receiving the 1st dose of the Covid vaccine. Disrupt6 Client denies travel out of the [place] in the last 14 days. At this time, the client does not indicate any symptoms associated with coronavirus-19. Ebola Screen: Patient negative for fever greater than or equal to 101.5 degrees Fahrenheit, and additional compatible Ebola Virus Disease symptoms Patient denies exposure to infectious person. Patient denies travel to an Ebola-affected area in the 21 days before illness onset. No symptoms or risks identified at this time. Initial Sepsis Screen: Does the patient meet any 2 criteria? No. Patient's initial sepsis screen is negative. Does the patient have a suspected source of infection? No. Patient's initial sepsis screen is negative. Risk Assessment: Do you want to hurt yourself or someone else? Patient reports no desire to harm self or others. Onset of symptoms is unknown. 01:23 Method Of Arrival: Wheelchair vc1 01:23 Acuity: VINOD 4 vc1 Triage Assessment: 01:30 General: Appears in no apparent distress. uncomfortable, Behavior is calm, cooperative, vc1 appropriate for age. Pain: Complains of pain in right leg Pain radiates to right leg Pain currently is 10 out of 10 on a pain scale. EENT: No deficits noted. No signs and/or symptoms were reported regarding the EENT system. Neuro: Level of Consciousness is awake, alert, obeys commands, Oriented to person, place, time, situation, Appropriate for age. Cardiovascular: No deficits noted. Respiratory: Airway is patent Respiratory effort is even, unlabored, Respiratory pattern is regular, symmetrical. GI: No deficits noted. No signs and/or symptoms were reported involving the gastrointestinal system. : No deficits noted. No signs and/or symptoms were reported regarding the genitourinary system. Derm: No deficits noted. No signs and/or symptoms reported regarding the dermatologic system. Musculoskeletal: Reports pain in right knee. Historical: - Allergies: 01:26 Codeine; vc1 01:26 Morphine; vc1 :26 Iodine; vc1 - PMHx: :26 Atrial fibrillation; Back pain; Hypertension; sciatica; uterine cancer; diagnosed a vc1 year ago; - PSHx: :26 Total abdominal hysterectomy; vc1 - Immunization history:: Client reports receiving the 1st dose of the Covid vaccine. - Social history:: Smoking status: Patient denies any tobacco usage or history of. - Family history:: not pertinent. Screenin:15 [facility] ED Fall Risk Assessment (Adult) History of falling in the last 3 months, ha1 including since admission No falls in past 3 months (0 pts) Confusion or Disorientation No (0 pts) Intoxicated or Sedated No (0 pts) Impaired Gait No (0 pts) Mobility Assist Device Used No (0 pt) Altered Elimination No (0 pt) Score/Fall Risk Level 0 - 2 = Low Risk Oriented to surroundings, Maintained a safe environment, Educated pt \T\ family on fall prevention, incl call for assistance when getting out of bed. Abuse screen: Denies threats or abuse. Denies injuries from another. Nutritional screening: No deficits noted. Tuberculosis screening: No symptoms or risk factors identified. Assessment: 01:15 General: Appears uncomfortable, Behavior is cooperative. Pain: Complains of pain in ha1 right knee Pain does not radiate. Pain currently is 7 out of 10 on a pain scale. Quality of pain is described as throbbing. Neuro: Level of Consciousness is awake, alert, obeys commands, Oriented to person, place, time, situation. Cardiovascular: Patient's skin is warm and dry. Respiratory: Airway is patent Respiratory effort is even, unlabored, Respiratory pattern is regular, symmetrical. GI: No signs and/or symptoms were reported involving the gastrointestinal system. Musculoskeletal: Circulation, motion, and sensation intact. Reports pain in right knee. 02:15 Reassessment: Patient and/or family updated on plan of care and expected duration. Pain ha1 level reassessed. Patient is alert, oriented x 3, equal unlabored respirations, skin warm/dry/pink. 03:15 Reassessment: Patient and/or family updated on plan of care and expected duration. Pain ha1 level reassessed. Patient is alert, oriented x 3, equal unlabored respirations, skin warm/dry/pink. 04:06 Reassessment: Patient and/or family updated on plan of care and expected duration. Pain ha1 level reassessed. Patient is alert, oriented x 3, equal unlabored respirations, skin warm/dry/pink. pain 6/10. Vital Signs: 01:23 BP 133 / 98; Pulse 95; Resp 17; Temp 97.7; Pulse Ox 100% ; Weight 95.71 kg; Height 5 vc1 ft. 3 in. ; Pain 10/10; 01:30 BP 132 / 68; Pulse 89; Resp 19 S; Pulse Ox 100% on R/A; ha1 02:45 BP 129 / 67; Pulse 94; Resp 18 S; Pulse Ox 100% on R/A; ha1 03:45 BP 125 / 89; Pulse 85; Resp 18 S; Pulse Ox 100% on R/A; ha1 04:06 BP 128 / 82; Pulse 84; Resp 16 S; Pulse Ox 100% on R/A; ha1 01:23 Body Mass Index 37.38 (95.71 kg, 160.02 cm) vc1 01:23 Pain Scale: Adult vc1 ED Course: 00:59 Patient arrived in ED. ag3 00:59 Alek Alanis MD is Attending Physician. sp4 01:26 Triage completed. vc1 01:30 Arm band placed on right wrist. vc1 01:30 Patient has correct armband on for positive identification. Bed in low position. Call vc1 light in reach. Pulse ox on. NIBP on. 02:08 Knee Right 3 View In Process Unspecified. EDMS 03:47 No provider procedures requiring assistance completed. Patient did not have IV access ha1 during this emergency room visit. 03:55 Ziggy Delarosa MD is Referral Physician. sp4 04:14 Provided Education on: medication administration. ha1 Administered Medications: 01:26 Drug: Kenly PO 10 mg-325 mg 1 tabs Route: PO; ks5 01:26 Drug: Methocarbamol PO 750 mg Route: PO; ks5 03:43 Not Given (Duplicate Order): Naproxen PO 250 mg PO once sp4 03:58 Drug: HYDROcodone-acetaminophen PO 5 mg-325 mg 1 tabs Route: PO; ha1 04:14 Follow up: Response: No adverse reaction; Pain is decreased; RASS: Alert and Calm (0) ha1 Medication: 03:46 VIS not applicable for this client. ha1 Outcome: 03:56 Discharge ordered by . sp4 04:13 Discharged to home with crutches, with family. ha1 04:13 Condition: stable 04:13 Discharge instructions given to patient, family, Instructed on discharge instructions, follow up and referral plans. medication usage, Demonstrated understanding of instructions, follow-up care, medications, Prescriptions given X 2. 04:14 Patient left the ED. ha1 Signatures: Dispatcher [employer] EDMS Katy Garay RN RN ks5 Marlen Atwood 3 Radha Baez RN RN 1 Julia Conley RN RN ha1 Alek Alanis MD MD sp4
--- NOTE | 2023-04-22 03:57 | EDPHYS ---
Physician Documentation [facility] Name: Misa Claros Age: 72 yrs Sex: Female : 1950 Arrival Date: 04/22/2023 Time: 00:55 Bed 14 Private MD: ED Physician Alek Alanis HPI: 04/22 00:59 This 72 yrs old Black Female presents to ER via Unassigned with complaints of Knee Pain.sp4 03:48 Very pleasant 72-year-old female presents with worsening right knee pain. . sp4 03:49 Patient has history of atrial fibrillation, chronic back pain, hypertension, sciatica, sp4 history of uterine cancer in remission, history of diffuse osteoarthritis with moderate to severe arthritis of the right knee. Patient is scheduled to see orthopedist for consultation for knee replacement next month. . Historical: - Allergies: 01:26 Codeine; vc1 01:26 Morphine; vc1 01:26 Iodine; vc1 - PMHx: 01:26 Atrial fibrillation; Back pain; Hypertension; sciatica; uterine cancer; diagnosed a vc1 year ago; - PSHx: 01:26 Total abdominal hysterectomy; vc1 - Immunization history:: Client reports receiving the 1st dose of the Covid vaccine. - Social history:: Smoking status: Patient denies any tobacco usage or history of. - Family history:: not pertinent. ROS: 03:49 Constitutional: Negative for fever, chills, and weight loss, Eyes: Negative for injury, sp4 pain, redness, and discharge, ENT: Negative for injury, pain, and discharge, MS/Extremity: Negative for injury and deformity, positive for worsening right knee chronic pain associated with moderate to severe pain on ambulation. 03:49 All other systems are negative. Exam: 03:49 Constitutional: This is a well developed, well nourished patient who is awake, alert, sp4 and in no acute distress. Head/Face: Normocephalic, atraumatic. Eyes: Pupils equal round and reactive to light, extra-ocular motions intact. Lids and lashes normal. Conjunctiva and sclera are not injected. Cornea within normal limits. Periorbital areas with no swelling, redness, or edema. ENT: Nares patent. No nasal discharge, no septal abnormalities noted. Tympanic membranes are normal and external auditory canals are clear. Oropharynx with no redness, swelling, or masses, exudates, or evidence of obstruction, uvula midline. Mucous membranes moist. Neck: Trachea midline, no thyromegaly or masses palpated, and no cervical lymphadenopathy. Supple, full range of motion without nuchal rigidity, or vertebral point tenderness. Chest/axilla: Normal chest wall appearance and motion. Nontender with no deformity. No lesions are appreciated. Cardiovascular: Regular rate and rhythm with a normal S1 and S2. No gallops, murmurs, or rubs. Normal PMI, no JVD. No pulse deficits. Respiratory: Lungs have equal breath sounds bilaterally, clear to auscultation and percussion. No rales, rhonchi or wheezes noted. No increased work of breathing, no retractions or nasal flaring. Abdomen/GI: Soft, non-tender, with normal bowel sounds. No distension or tympany. No guarding or rebound. No evidence of tenderness throughout. Obese abdomen Back: No spinal tenderness. No costovertebral tenderness. Skin: Warm, dry with normal turgor. Normal color with no rashes, no lesions, and no evidence of cellulitis. MS/ Extremity: Pulses equal, no cyanosis. Neurovascular intact. There is a right knee mild effusion. No deformity. Patient is able to stand up with assistance Neuro: Awake and alert, GCS 15, oriented to person, place, time, and situation. Cranial nerves II-XII grossly intact. Motor strength 5/5 in all extremities. Sensory grossly intact. Psych: Awake, alert, with orientation to person, place and time. Behavior, mood, and affect are within normal limits Vital Signs: 01:23 BP 133 / 98; Pulse 95; Resp 17; Temp 97.7; Pulse Ox 100% ; Weight 95.71 kg; Height 5 vc1 ft. 3 in. ; Pain 10/10; 01:30 BP 132 / 68; Pulse 89; Resp 19 S; Pulse Ox 100% on R/A; ha1 02:45 BP 129 / 67; Pulse 94; Resp 18 S; Pulse Ox 100% on R/A; ha1 03:45 BP 125 / 89; Pulse 85; Resp 18 S; Pulse Ox 100% on R/A; ha1 04:06 BP 128 / 82; Pulse 84; Resp 16 S; Pulse Ox 100% on R/A; ha1 01:23 Body Mass Index 37.38 (95.71 kg, 160.02 cm) vc1 01:23 Pain Scale: Adult vc1 MDM: 01:07 Patient medically screened. sp4 03:42 ED course: CLINICAL HISTORY: Right knee PAIN COMPARISON: None. TECHNIQUE: XR KNEE 3 sp4 VIEWS 04/22/2023 12:00 AM CDT FINDINGS: There is no fracture. There is a small knee effusion. Soft tissues are unremarkable. IMPRESSION: Small right knee effusion. No definite acute fracture. . 03:49 Differential Diagnosis Exacerbation of chronic pain, osteoarthritis, inflammatory sp4 arthritis,. Data reviewed: vital signs, nurses notes, old medical records, radiologic studies, plain films. Consideration of Admission/Observation Escalation of care including admission/observation considered. ED course: Patient will be advised to pursue visit with orthopedist for knee replacement as planned. Will prescribe tramadol as needed for pain. And Robaxin as needed for muscle soreness. Otherwise stable for discharge home. Right knee x-ray reveals tricompartmental degenerative changes but is otherwise negative. . 04/22 01:27 Order name: Knee Right 3 View EDMS Administered Medications: 01:26 Drug: Beaver PO 10 mg-325 mg 1 tabs Route: PO; ks5 01:26 Drug: Methocarbamol PO 750 mg Route: PO; ks5 03:43 Not Given (Duplicate Order): Naproxen PO 250 mg PO once sp4 03:58 Drug: HYDROcodone-acetaminophen PO 5 mg-325 mg 1 tabs Route: PO; ha1 04:14 Follow up: Response: No adverse reaction; Pain is decreased; RASS: Alert and Calm (0) ha1 Disposition Summary: 04/22/23 03:56 Discharge Ordered Location: Home sp4 Problem: new sp4 Symptoms: have improved sp4 Condition: Stable sp4 Diagnosis - Right knee x-ray osteoarthritis, exacerbation of chronic right knee pain, right sp4 knee degenerative arthritis Followup: sp4 - With: Ziggy Delarosa MD - When: 5 - 6 days - Reason: Recheck today's complaints Discharge Instructions: - Discharge Summary Sheet sp4 - Osteoarthritis sp4 Forms: - Patient Portal Instructions sp4 Prescriptions: - Tramadol 50 mg Oral Tablet - take 2 tablet by ORAL route every 6 hours PRN pain; 20 tablet; Refills: 0, sp4 Product Selection Permitted - methocarbamol 750 mg Oral Tablet - take 1 tablet by ORAL route 3 times per day PRN pain; 60 tablet; Refills: 0, sp4 Product Selection Permitted Signatures: Dispatcher [employer] Katy Live RN RN ks5 Radha Baez RN RN vc1 Julia Conley RN RN ha1 Alek Alanis MD MD sp4
[2023-04-22] MEDS ORDERED: HYDROCODONE/APAP 5/325 MG TAB ONE (04:05)
[2023-04-22 04:18] VITALS: TEMP 97.7; O2SAT 100
[2023-04-22 04:23] VITALS: BP 128/82
--- NOTE | 2023-04-22 19:40 | RAD REPORT ---
EXAM DESCRIPTION: RAD - Knee Right 3 View - 04/22/2023 2:06 am CLINICAL HISTORY: Right knee PAIN COMPARISON: None. TECHNIQUE: XR KNEE 3 VIEWS 04/22/2023 12:00 AM CDT FINDINGS: There is no fracture. There is a small knee effusion. Soft tissues are unremarkable. IMPRESSION: Small right knee effusion. No definite acute fracture. Electronically signed by: Anirudh Gallo MD 04/22/2023 2:29 AM CDT Due to temporary technical issues with the PACS/Fluency reporting system, reports are being signed by the in house radiologists without review as a courtesy to insure prompt reporting. The interpreting radiologist is fully responsible for the content of the report.
== END 2023-04-22 04:14 | disposition home or self-care (01) ==
LOC: ER 00:55
DX: M17.11 Unilateral primary osteoarthritis, right knee (principal); Z88.5 Allergy status to narcotic agent; Z91.048 Other nonmedicinal substance allergy status
CPT/HCPCS: 99284

== ENCOUNTER 2023-08-01 06:02 | Observation (INO) | payer OTHER ==
[2023-07-17 09:39] LABS: Absolute Lymphocytes (CBC) 1.4 K/uL (0.7-4.9); Hematocrit 35.3 % (36.0-45.0); MCV 92.3 fL (80-100); MPV 8.5 fL (7.6-11.3); Platelets 115 thou/uL (152-406); RBC Red Blood Cell Count 3.83 M/uL (3.86-4.86)
--- NOTE | 2023-07-17 09:40 | RAD REPORT ---
EXAM DESCRIPTION: Berto Godinez And Clive (2 Views)07/17/2023 9:24 am CLINICAL HISTORY: Preop for knee surgery. Hypertension COMPARISON: October 2022 FINDINGS: The lungs appear clear of acute infiltrate. The heart is moderately enlarged IMPRESSION: No acute abnormalities displayed
[2023-07-17 09:45] LABS: Protime INR 1.09
[2023-07-17 09:52] LABS: Potassium 3.6 mEq/L (3.5-5.1)
--- NOTE | 2023-07-17 11:54 | EKG ---
Test Date: 2023-07-17 Test Time: 08:52:21 Dimensional Engineer: DEMETRIO MEASUREMENT RESULTS: Intervals: Rate: 92 HI: QRSD: 88 QT: 350 QTc: 432 [place]: P: HI: QRS: 67 T: 4 INTERPRETIVE STATEMENTS: Atrial fibrillation Nonspecific T wave abnormality, probably digitalis effect Abnormal ECG Compared to ECG 11/08/2022 10:03:34 T-wave abnormality now present Ventricular premature complex(es) no longer present ST (T wave) deviation no longer present Electronically Signed On 07-17-23 11:53:29 CDT by Mark Mcdowell
[2023-08-01] MEDS ORDERED: GABAPENTIN 100 MG CAP ONE (06:37)
[2023-08-01] MEDS ORDERED: CELECOXIB 100 MG CAPSULE ONE (06:37)
[2023-08-01] MEDS ORDERED: Oxycodone HCl/Acetaminophen 5/325 MG TAB ONE (06:38)
[2023-08-01] MEDS ORDERED: ACETAMINOPHEN 500 MG TAB ONE (06:38)
[2023-08-01] MEDS ORDERED: MAGNESIUM SULFATE 1 gm IVPB 1 GM/100 ML BAG IV ONE (06:43)
[2023-08-01] MEDS ORDERED: DEXMEDETOMIDINE HCL 200 MCG/2 ML VIAL ONE (06:43)
[2023-08-01] MEDS ORDERED: MIDAZOLAM HCL 2 MG/2 ML INJ ONE (06:46)
[2023-08-01] MEDS ORDERED: FENTANYL CITR 100 MCG/2 ML ONE (06:46)
[2023-08-01] MEDS ORDERED: KETAMINE HCL IN 0.9 % NACL 50 MG/5 ML SYRINGE IV ONE (06:46)
[2023-08-01] MEDS ORDERED: propofoL 200 MG/20 ML VIAL IV ONE (06:46)
[2023-08-01] MEDS ORDERED: LIDOCAINE 2% MPF 5 ML VIAL ONE ×3 (06:46→08:32)
[2023-08-01] MEDS ORDERED: ONDANSETRON 4 MG/2 ML VIAL ONE (06:51)
[2023-08-01] MEDS ORDERED: dexAMETHasone 4 MG/ML VIAL ONE (06:55)
[2023-08-01] MEDS ORDERED: EPINEPHRINE/PF 1 MG/ML AMP ONE (06:55)
[2023-08-01] MEDS ORDERED: BUPIVACAINE 0.25% PF 30 ML VIAL ONE (06:56)
[2023-08-01] MEDS ORDERED: TRANEXAMIC ACID 1,000 MG/10 ML VIAL IV ONE (07:37)
[2023-08-01] MEDS ORDERED: CEFAZOLIN SODIUM 1 GM/VIAL ONE (08:21)
[2023-08-01] MEDS ORDERED: Phenylephrine HCl 10 MG/ML 1 ML VIAL ONE (08:22)
[2023-08-01] MEDS ORDERED: EPHEDRINE SULF 50 MG/ML VIAL ONE (09:15)
[2023-08-01] MEDS ORDERED: Ringers Lactate 1,000 ML IV ONE ×2 (09:33→09:36)
[2023-08-01] MEDS ORDERED: methocarbamoL 750 MG TAB PO PRN (10:56)
--- NOTE | 2023-08-01 10:56 | P.BOP ---
Preoperative diagnosis: right knee osteoarthritis Postoperative diagnosis: same Primary procedure: right total knee arthroplasty Instructor Dramatic Arts: NONE,NONE Estimated blood loss: 50 cc Specimen: right knee bone remnants Findings: see dictation Anesthesia: General Complications: None Implants: [employer] Person[employer] 8 CR femur, D tibia w/ stem, 29 patella, 11 CR poly Fluids & blood products: per anesthesia record; TT: 90 mins @ 350 mmHg Transferred to: Recovery Room Condition: Good
[2023-08-01] MEDS ORDERED: HYDROCODONE/APAP 7.5/325 MG TAB PO PRN (10:58)
[2023-08-01] MEDS ORDERED: ONDANSETRON 4 MG/2 ML VIAL IV PRN (10:58)
[2023-08-01] MEDS ORDERED: DOCUSATE NA 100 MG CAP PO PRN (10:58)
[2023-08-01] MEDS ORDERED: ACETAMINOPHEN 325 MG TABLET PO PRN (10:58)
[2023-08-01] MEDS ORDERED: TRAMADOL HCL 50 MG TAB PO PRN (11:01)
[2023-08-01 12:09] LABS: Hematocrit 35.5 % (36.0-45.0)
--- NOTE | 2023-08-01 12:18 | RAD REPORT ---
EXAM DESCRIPTION: RAD - Knee Right 2 View - 08/01/2023 11:18 am CLINICAL HISTORY: Post Op COMPARISON: Knee Right 3 View dated 04/22/2023; Knee Right 3 View dated 08/31/2022 TECHNIQUE: Right knee, 3 views. FINDINGS: Interval placement of a total knee arthroplasty. Components in satisfactory alignment. No fracture, dislocation or periosteal reaction. Expected postoperative changes in the soft tissues with skin don. IMPRESSION: Expected postoperative changes following total knee arthroplasty.
--- OUTSIDE RECORDS SUMMARY | 2023-08-01 14:29 | XMS REPORT | Clinical Summary ---
:1950 Author Organization [facility] MD [facility] Center Address [address] [place] [address] Care Team Providers Name Role Phone Deonna Leiva MD Primary Care Provider Denzel Pritchett "Hattie" Unavailable [phone] Mateo Chavez MD Unavailable [phone] David Dobson MD Unavailable [phone] Susan Baird MD Unavailable Star Treviño MD Unavailable Nolberto Israel MD Unavailable Ophelia Craft Unavailable Allergies Active Allergy Reactions Criticality Noted Date Comments Codeine GI Intolerance Medium 11/08/2016 Nausea and vo miting sometime. Fruit Punch Flavor Hives, Itching High 11/21/2016 Allergy to most Fruits with seeds, strawber xiomy, etc..... Morphine GI Intolerance Medium 11/24/2016 Nausea and vo miting sometime. Naloxone GI Intolerance 11/24/2016 Opium GI Intolerance 11/24/2016 Medications Medication Sig Dispensed Refills Start Date End Date Status pravastatin (PRAVACHOL) Take 1 tablet (20 0 03/06/20 21 Active 20 mg tablet mg) by mouth daily. ondansetron (ZOFRAN) 4 Take 1 tablet (4 0 07/29/2021 Active mg tablet mg) by mouth as needed. levothyroxine Take 1 tablet (25 0 07/08/2021 Active (SYNTHROID, LEVOTHROID) mcg) by mouth 25 mcg tablet daily. famotidine (PEPCID) 20 Take 1 tablet (20 0 1 Active mg tablet mg) by mouth daily. Eliquis 5 mg tablet Take 1 tablet (5 0 12/05/2021 Active mg) by mouth twice daily. Entresto 24-26 mg tab Take 1 tablet by 0 12/05/2021 Active per tablet mouth twice daily. furosemide (LASIX) 20 Take 1 tablet (20 0 12/05/2021 Active mg tablet mg) by mouth daily. spironolactone Take 1 tablet (50 0 12/05/2021 Active (ALDACTONE) 50 mg mg) by mouth tablet daily. diclofenac sodium Apply 2 g 450 g 2 02/09/2022 A ctive (Voltaren) 1 % topically 3 gelIndications: Chronic (three) times a pain day. Additional Information Patient not taking. Reason: No longer taking, Reported on 07/02/2023 metoprolol tartrate (LOPRESSOR) TAKE ONE TABLET BY 60 tablet 6 03/13/2022 Active 25 mg tabletIndications: MOUTH TWICE A DAY Cardiomegaly, Coronary artery disease due to calcified coronary lesion pregabalin (Lyrica) 50 mg Take 1 capsule (50 60 capsule 2 04/25 Active capsuleIndications: Chronic pain mg) by mouth twice daily. Additional Information Patient not taking. Reported on 05/01/2023 dexAMETHasone Take 1 tablet 0 Ac tive (DECADRON) 4 mg tablet (4 mg) by mouth twice daily. 5 days total methocarbamol Take 1 tablet 0 Ac tive (ROBAXIN) 750 mg (750 mg) by tabletIndications: mouth every 8 muscle spasm, right (eight) hours. knee pain letrozole (Femara) 2.5 Take 1 tablet 90 tablet 3 07/21/20 Discontinued mg tabletIndications: (2.5 mg) by 22 23 Serous mouth daily for cystadenocarcinoma, 90 days. 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 Active Problems Patient Care Coordination Note Formatting of this note might be differe nt from the original. 0Please call patient with all appointmen t dates and times, does not use Mychart. Problem Noted Date Diagnosed Date Congestive heart failure 01/16/2022 Encounter for [...] 5 mg p.o. twice daily with a [id number]-EOTp score 4 (age, gender, CHF, HTN) Nonischemic [...] already had this discussion with her private synthetic department supervisor concerning a permanent ICD implant and knows she would need a follow-up appoint ment within 3 months. Patient states she elected to have her further management with her local synthetic department supervisor. 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 Weigh t: (!) 106.2 kg (234 lb 2.1 oz) [place] body weight: 52.4 kg (115 lb 7.7 [...] this issue. 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 Cancer Staging: Clinical stage from 2016: Stage IA (Primary) - Signed by Deonna Leiva MD on 12/18/2016 Clinical stage from 10/25/2021: Recurrent - Signed by Deonna Leiva MD on 11/05/2021 Encounters Date Type Department Care Team Description 07/23/2023 Orders Only MD [place] in [place]onda Zheng Serou [facility] - Gynecology PA cystadenocarcinoma, [address] NOS of endo metrium [place] (Primary Dx) [place] [address] 07/16/2023 Ancillary Diagnostic Imaging in Deonna Leiva 9:30 AM CDT Procedure Marcell Lr MD cystadenocarcinoma, [address] [facility] NOS of endometrium [address] [place] [address] 05/02/2023 Hospital Deonna Shepard Serous c ystadenocarcinoma, NOS of endometrium 1:05 PM CDT Encounter Jj Lr MD Discharge Disposition: Home - [id number] Bartolo Mckinney MD 05/02/2023 [place] [address] 11:59 PM [phone] CDT 05/02/2023 Orders Only MD [facility] in [facility] - Gynecology [place] cystadenocarcinoma, [address] NOS of endo metrium [place] (Primary Dx) [place] [address] 05/02/2023 Travel 05/01/2023 Hospital Deonna Shepard Pelvic l ymphadenopathy (Primary Dx); 10:08 AM Encounter Jj Lr MD Serous cystadenocarcinoma, NOS of endome trium; CDT - [id number] April Solomonang, Cesar Essential (primary) hyperten jose; 05/01/2023 [place] [address] BETO Forde Paroxysmal atrial fibrillati on; 11:59 PM [phone] Long-term use o f anticoagulant; CDT Encounter for p reprocedural examination Discharge Dispo sition: Home 04/24/2023 Orders Only Interventional Nakul, Radiology BETO Rodriguez [address] [facility], 4th [place] [address] 04/24/2023 Telephone Main Interventional Sabra Perez, Radiology MA [address] [facility], 3rd [place] [address] 04/23/2023 [facility] [address] [place] [address] 04/20/2023 Follow-Up MD [place] in Deonna Alvarez us 9:30 AM CDT Alejandro - Gynecology MD Adeline cystadenocarcinoma, [address] [place] [address] 04/20/2023 Travel 04/19/2023 Ancillary PET Imaging Deonna Leiva Serous cystadenocarcinoma, N OS of endometrium; 1:00 PM CDT Procedure 1220 Autumn Lr MD Other specified polyneuropat [facility], 6th [place] [address] 04/02/2023 Orders Only Colorectal [facility] Neetu Coronary artery disease due to calcified coronary lesion (Primary Dx); Colon and Rectal BETO Null Congestive heart failure, not otherwise specified; Surgery Cardiomegaly; [address] Paroxysmal atrial fibrillati on Main Bldg, 7th [place] [address] 04/02/2023 Orders Only Colorectal Center - Neetu Screenin g for Colon and Rectal BETO Null malignant n eoplasms of Surgery colon (Primary Dx) [address] [facility] [address], 7th [place] [address] 03/15/2023 Follow-Up MD [place] in [facility] Nolberto Israel Chron ic pain (Primary 9:30 AM CDT Alejandro - Pain Ralph Negrete MD Dx) [address] [address] 03/15/2023 Travel 01/19/2023 Follow-Up MD [place] in [facility] Deonna Leiva Serbria us cystadenocarcinoma, NOS of endometrium (Primary Dx); 10:00 AM Alejandro Lr MD 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 Nevin Lang RN Oncology [address] [place] [address] 11/13/2022 Follow-Up MD [place] in [facility] Nolberto Israel Chron ic pain (Primary 9:30 AM EXTRACT OPERATOR Alejandro Pain Ralph Negrete MD Dx) [address] [place] [address] [address] [place] [address] 11/13/2022 Travel 10/20/2022 Follow-Up MD [place] in [facility] Deonna Leiva us cystadenocarcinoma, NOS of endometrium (Primary Dx); 11:[address] [facility] Gynecology MD Adeline Other specified polyneuropat hy; EXTRACT OPERATOR [address] [facility] [place] [address] 10/20/2022 Travel 10/19/2022 Ancillary PET Imaging Deonna Leiva Serous 8:30 AM EXTRACT OPERATOR Procedure Wes0 Autumn Lr MD cystadenocarcinoma, [facility], 6th NOS of endo [place] [address] 10/19/2022 Hospital Diagnostic Laboratory CaliEugeniole [place] ous cystadenocarcinoma, NOS of endometrium 7:57 AM EXTRACT OPERATOR Encounter Center MD Adeline Discharge Disposition: Home - 1220 Autumn Castaneda 10/19/2022 [facility] 11:[address] 10/19/2022 Travel 08/14/2022 Follow-Up MD [place] in [facility] IsraelNolberto meza Chron ic pain (Primary 9:00 AM EXTRACT OPERATOR Alejandro Pain Ralph Negrete MD Dx) [address] [place] [address] [address] [place] [address] 08/14/2022 Travel after 08/01/2022 Immunizations Name Administration Dates Next Due Pfizer SARS-CoV-2 Vaccination (Purple Cap) 05/14/2021, 10/2020 Surgical History Surgery Date Site/Laterality Comments SECTION, CLASSIC 01/17/1981 CA LAPAROSCOPY TOT 11/28/2016 N/A Procedure: RO BOTIC HYSTERECTOMY >250 G ASSISTED TOT AL W/TUBE/OVAR HYSTERECTOMY, MT NI LAPAROTOMY, CYST OSCOPY; Surgeon: Deonna Leiva MD; Loc ation: MAIN OR; Service : MOTOR BOSS - GYNECOLOGIC ONCO LOGY CA SALPINGO-OOPHORECTOMY 11/28/2016 Bilateral Procedu re: ROBOTIC COMPL/PRTL UNI/BI SPX ASSISTED SALPINGO-OOPHORE CTOMY; Surgeon: Deonna Leiva MD; Loc ation: MAIN OR; Service : MOTOR BOSS - GYNECOLOGIC ONCO LOGY CA LMTD LMPHADEC STAGING 11/28/2016 Abdomen/Bilateral Proce dure: BILATERAL SPX PEL&PARA-AORTIC PELVIC BIOPS IES AND OMENTAL BIOPSY; Surgeon: Deonna ureña MD; Location: MAIN O R; Service: MOTOR BOSS - GYNECOLOGIC ONCO LOGY CA INTRAOP SENTINEL LYMPH 11/28/2016 Bilateral Proced ure: INTRAOPERATIVE NODE ID W/DYE INJECTION LYMPHATI C MAPPING; Surgeon: Deonna Leiva MD; Loc ation: MAIN OR; Service : MOTOR BOSS - GYNECOLOGIC ONCO LOGY CHOLECYSTECTOMY 05/25/2018 - [...] Date Smoking Tobacco: Former Cigarettes Quit : 1970 Smokeless Tobacco: Never Tobacco Cessation: Counseling Given: No Comments: quit 30yrs ago Alcohol Use Standard Drinks/Week Comments Yes 0 (1 standard drink = 0.6 oz pure alcoho l) social drinker Sex and Gender Information Value Date Recorded Sex Assigned at Not on file Gender Identity Not on file Sexual Orientation Not on file Job Start Date Occupation [...] Sign Reading Time Taken Comments Blood Pressure 123/77 05/02/2023 4:15 PM CDT Pulse 88 05/02/2023 4:15 PM CDT Temperature 36 C (96.8 F) 05/02/2023 4:15 PM CDT Respiratory Rate 19 05/02/2023 4:15 PM CDT Oxygen Saturation 98% 05/02/2023 4:15 PM CDT Inhaled Oxygen Concentration - - Weight 95.3 kg (210 lb 1.6 oz) 07/16/2023 10:12 AM CDT Height 160 cm (5' 2.99") 04/19/2023 1:29 PM CDT Body Mass Index 37.23 04/19/2023 1:29 PM CDT Plan of Treatment Date Type Department Care Team Description 09/04/2023 Consult [facility] - Ramon Deal PA [address] [place] [address] 2:00 PM EXTRACT OPERATOR Gastroenterology, Kayden Wick MD [address] [place] [address] Hepatology & Nutriti on [address] [place] [address] [address], 7th [place] [address] 10/16/2023 Ancillary MD Mendoza Chacon itrubén 7:30 AM EXTRACT OPERATOR Procedure [address] [facility] 2nd [place] [address] 10/17/2023 Lab MD [place] in [place] Deonna Leiva 10:30 AM EXTRACT OPERATOR - Lab MD Adeline [address] [facility] 132[address] [facility] [address] [phone] 10/17/2023 Follow-Up MD [place] in [place] Deonna Leiva 11:30 AM EXTRACT OPERATOR - Cortney Lr MD 132[address] [facility] [place] [address] [phone] [place] [id number] Health Maintenance Due Date Last Done Comments COVID-19 Vaccination ( season) 05/25/20232020, 04/25/2021 Procedures Procedure Name Priority Date/Time Associated Diagnosis Comme nts CANCER ANTIGEN 125 Routine 07/16/2023 2:03 Serous Result s for this PM CDT cystadenocarcinoma, procedur e are in NOS of endometrium the resul ts section. PETCT SUBSEQUENT Routine 07/16/2023 11:56 Serous Results for this TREATMENT STRATEGY AM CDT cystadenocarcinoma, pr ocedure are in NOS of endometrium the resul ts section. IR CT GUIDED BIOPSY Routine 05/02/2023 3:10 Serous Resul ts for this MUSCLE/SOFT TISSUE PM CDT cystadenocarcinoma, pr ocedure are in PELVIC 60 NOS of endometrium the resul ts section. DIFFERENTIAL Routine 05/01/2023 10:56 Results for this AM CDT procedure are i n the results section. .CBC Routine 05/01/2023 10:56 Results for this AM CDT procedure are i n the results section. PROTHROMBIN TIME Routine 05/01/2023 10:56 Results for this AM CDT procedure are i n the results section. COMPLETE BLOOD COUNT Routine 05/01/2023 10:56 W/ DIFFERENTIAL AM CDT CANCER ANTIGEN 125 Routine 04/20/2023 7:22 Serous [...] pain Results f or this ULTRASOUND PM EXTRACT OPERATOR procedure are i n the results section. PETCT SUBSEQUENT Routine 10/19/2022 10:16 Serous Results for this TREATMENT STRATEGY AM EXTRACT OPERATOR cystadenocarcinoma, pr ocedure are in NOS of endometrium the resul ts section. CANCER ANTIGEN 125 Routine 10/19/2022 8:09 Serous Result s for this AM EXTRACT OPERATOR cystadenocarcinoma, procedur e are in NOS of endometrium the resul ts section. after 08/01/2022 Results Cancer Antigen 125 (07/16/2023 2:03 PM CDT)Only the most recent of4 results within the time period is included. P athologist Signature Cancer Antigen 9.9 <=38.0 U/mL 07/16/2023 [place] 125 2:40 PM CDT Specimen Anatomical Collection Method / Collection Time Recei ani Time (Source) Location / Volume Laterality Blood Peripheral blood Venipuncture / 07/16/2023 2:03 2022 2:07 specimen / Unknown Unknown PM CDT PM CDT Narrative [place] - 07/16/2023 2:40 PM CDT Results greater than 11,500.0 U/mL may n ot be reliable due to matrix effect with extended dilution as it exceeds the manu facturer's recommended limit. Caution should be exercised when interpreting such valu es and done in conjunction with clinical context. This test is measured by electr ochemiluminescence immunoassay on [employer] Hany immunoassay analyzers. Results obtained in different methods are not interchangeable. Reference intervals are not available fo r male patients. Results should be interpreted in conjunction with clinical context. Rhonda PÉREZ LAB BLOOD ORDERABLES Performing Organization Address City/State/ZIP Code Phon e Number [facility] [place] [place] [address] [place] [address] [facility], [address] PETCT Subsequent Treatment Strategy (07/16/2023 11:56 AM CDT)Only the most recent of3 resultswithin the time period is included. Anatomical Region Laterality Modality Whole Body Positron Emission To mography (PET) Specimen (Source) Anatomical Collection Method Collection Time Re ceived Time Location / / Volume Laterality 07/16/2023 1:48 PM CDT Impressions 07/16/2023 2:16 PM CDT The implant within the left lower quadra nt has slightly increased in the interim. However, the metabolic activity is relatively stable. ACTIONABLE ITEMS/RECOMMENDATIONS: See Im pression Narrative 07/16/2023 2:16 PM CDT FULL RESULT: Examination: 18F-FDG-PET/CT without cont rast, 07/16/2023 11:56 AM Clinical History: Serous cystadenocarcin queenie Indication: PET/CT was obtained for stag ing restaging and treatment options Comparison: 04/19/2023 Technique: Following intravenous administration of 11.4 mCi of F-18 FDG via the left antecubital vein a PET/CT was performed from the vertex of the skull to the proximal thighs.. CT scanning was done for attenuati on correction, image registration, and d iagnosis with scan parameters optimized to minimize radiation exposure to the patient. SUV measurements are reported as maximum SUV based on body weight unless otherwise specified. Findings: Head and Neck: No FDG avid disease is noted within the neck. No masses are noted within the brain to suggest metastatic malignancy. Chest: No lung nodules are identified to sugges t metastatic disease. A punctate nodular densities noted within the right lung (series 2 image 204) and likely represents a granuloma. The heart is normal size. There is no hi lar adenopathy. Abdomen and Pelvis: No focal hepatic lesions are identified to suggest malignancy. There is no intrahepatic or extrahepatic biliary ductal dilation. The gallbladder has been resected. The spleen, the adrenal glands, and the pancreas are normal. A cyst is noted within the right kidney. There is no retroperitoneal adenopathy. Sections of the pelvis demonstrate no fl uid collections. There is diverticulosis without evidence of diverticulitis. An implant is noted within the left lower quadrant, measures 2.1 x 1.4 cm, and has in creased in size from 1.1 x 1.1 cm; it pompa s a maximum SUV of 13.6 and is relatively stable since the prior study. Musculoskeletal: No definite skeletal metastases are iden tified. Injection granulomas are noted within the subcutaneous fat. Left gluteal sebaceous cyst is noted. Procedure Note Roberto Carlos eTna MD - 07/16/2023F ormatting of this note might be different from the original. FULL RESULT: Examination: 18F-FDG-PET/CT without cont rast, 07/16/2023 11:56 AM Clinical History: Serous cystadenocarcin queenie Indication: PET/CT was obtained for stag ing restaging and treatment options Comparison: 04/19/2023 Technique: Following intravenous administration of 11.4 mCi of F-18 FDG via the left antecubital vein a PET/CT was performed from the vertex of the skull to the proximal thighs.. CT scanning was done for attenuation correction, image registration, and diagnosis with s can parameters optimized to minimize radiation exposure to the patient. SUV measurements are reported as maximum SUV based on body weight unless otherwise specified. Findings: Head and Neck: No FDG avid disease is noted within the neck. No masses are noted within the brain to suggest metastatic malignancy. Chest: No lung nodules are identified to sugges t metastatic disease. A punctate nodular densities noted within the right lung (series 2 image 204) and likely represents a granuloma. The heart is normal size. There is no hi lar adenopathy. Abdomen and Pelvis: No focal hepatic lesions are identified to suggest malignancy. There is no intrahepatic or extrahepatic biliary ductal dilation. The gallbladder has been resected. The spleen, the adrenal glands, and the pancreas are normal. A cyst is noted within the right kidney. There is no retroperitoneal adenopathy. Sections of the pelvis demonstrate no fl uid collections. There is diverticulosis without evidence of diverticulitis. An implant is noted within the left lower quadrant, measures 2.1 x 1.4 cm, and has increased in size from 1.1 x 1.1 cm; it has a maxi mum SUV of 13.6 and is relatively stable since the prior study. Musculoskeletal: No definite skeletal metastases are iden tified. Injection granulomas are noted within the subcutaneous fat. Left gluteal sebaceous cyst is noted. IMPRESSION: The implant within the left lower quadra nt has slightly increased in the interim. However, the metabolic activity is relatively stable. ACTIONABLE ITEMS/RECOMMENDATIONS: See Im pression Rhonda PÉREZ IMG PETCT ORDERABLES IR CT GUIDED BIOPSY MUSCLE/SOFT TISSUE PELVIC (05/02/2023 3:10 PM CDT) Anatomical Region Laterality Modality Soft Tissue/Muscle Computed Tomography, Ultrasound Specimen (Source) Anatomical Location Collection Method / Collectio n Time Received Time / Laterality Volume Narrative 05/02/2023 3:25 PM CDT Table formatting from the original result was not included. Date of Procedure: 05/02/23 Attending Physician: Bartolo Kellogg MD Defect Cutter: None Pre Procedure Diagnosis: Serous cystad enocarcinoma, NOS of endometrium Post Procedure Diagnosis: Unchanged Indication: Evaluate for metastasis Protocol Number: N/A Title of Procedure: Percutaneous Computed Tomography-Guided Biopsy Operative Findings: Failed attempt at percutaneous image-herminio ded biopsy of 1.1 cm left pelvic mass (closely associated with the proxim al sigmoid colon). Consent: The procedure, risks, indicat ions and alternatives were explained. All questions were answered a nd informed consent was obtained. I have reviewed the history and physical dictated by the mid-level practitioner / fellow. Sedation/Anesthesia: Moderate sedation for pain control and anxiety was administered by a dedicated nurse under my supervision. There was continuous monitoring of oxygen saturati on, heart rate and intermittent monitoring of blood pressure during the procedure. Medication given was midazolam and fentanyl. I was present for the administration of the medications indicated above. Procedure Events Event Event Time Sedation Start 05/02/2023 2:38 PM Sedation End 05/02/2023 3:05 PM Procedure in Detail: A time out was [...] ord. Samples were obtained for evaluation. Sampling: Failed Biopsy: Unable to obtain sample s for evaluation. Specimens Disposition: None Additional Comments: The guiding need le appeared well directed at the 1.1 cm nodule within the left pelvis see n in close proximity to the proximal sigmoid colon. However, attem pts at advancing the core biopsy needle across the lesion were unsuccessf ul. The lesion appeared very firm and would deflect the needle. Patient also report pain (8/10) when engaging the lesion. On the final atte mpt, the tip of the needle appeared to engage to the nodule. However, when attempting to forcefully advance the biopsy needle across the lesion, the needle proceeded to bend at an acute angle. The guiding needle and co re biopsy needle were removed in their entirety and the procedure was ter minated. Estimated Blood Loss: Minimal Immediate Complications: None Disposition: PACU Plan: No follow-up with Interventional Radiolo gy required. Rhonda PÉREZ IMG IR ORDERABLES (ABNORMAL) .CBC (05/01/2023 10:56 AM CDT) P athologist Signature WBC 4.0 4.0 - 11.0 [facility] K/uL REGION Comment: All components of the CBC perfo rmed at [facility], [id number] [address] [facility], [place] [address] RBC 4.04 4.00 - 5.50 M/uL [facility] Comment: All components of the CBC perfo rmed at [facility], [address] [address] [facility], [place] [address] Hgb 12.5 12.0 - 16.0 gm/dL [facility] Comment: As part of CBC or as an individ ual orderable testing performed at [facility], [address] April [facility], [place] [address] Hct 38.9 37.0 - 47.0 % [facility] REG ION Comment: As part of CBC or as an individ ual orderable testing performed at [facility], [address] [address] [facility], [place] [address] MCV 96 82 - 98 fL [facility] Comment: All components of the CBC perfo rmed at [facility], [address] [address] [facility], [place] [address] MCH 30.9 27.0 - 31.0 pg [facility] RE GIWILBERTO Comment: All components of the CBC perfo rmed at [facility], [address] April [facility], [place] [address] MCHC 32.1 31.0 - 36.0 gm/dL [facility] Comment: All components of the CBC perfo rmed at [facility], [address] [address] [facility], [place] [address] RDW-SD 47.6 (H) 35.1 - 46.3 fL [facility] CRISTA GIWILBERTO Comment: All components of the CBC perfo rmed at [facility], [address] April [facility], [place] [address] RDW-CV 13.2 12.0 - 15.5 % [facility] REG ION Comment: All components of the CBC perfo rmed at [facility], [address] [address] [facility], [place] [address] Platelet count 137 (L) 140 - 440 K/uL [facility] ON REGION Comment: As part of CBC or as an individ ual orderable testing performed at [facility], [address] [place] [address] MPV 8.9 4.0 - 10.4 fL [facility] REG I[facility] Comment: All components of the CBC perfo rmed at [facility], [address] [place] [address] Specimen Anatomical Collection Method Collection Time Receive d Time (Source) Location / / Volume Laterality Blood 05/01/2023 10:56 05/01/2023 AM CDT 11:03 AM CDT Jennifer PÉREZ LAB BLOOD ORDERABLES Performing Organization Address City/State/[place] [address] [facility] [address] April [facility], Room #[id number] Differential (05/01/2023 10:56 AM CDT) athologist Signature Neutrophil % 52.1 42.0 - 66.0 [facility] % REGION Comment: As part of Differential perform ed at [facility], [address] [place] [address] Lymphocyte % 39.8 24.0 - 44.0 % [facility] Comment: As part of Differential perform ed at [facility], [address] [place] [address] Monocyte % 5.3 2.0 - 7.0 % [facility] EL ON Comment: As part of Differential perform ed at [facility], [address] [place] [address] Eosinophil % 2.5 1.0 - 4.0 % [facility] RE GION Comment: As part of Differential perform ed at [facility], [address] [place] [address] Basophil % 0.0 0.0 - 1.0 % [facility] [place] Comment: As part of Differential perform ed at [facility], [address] [place] [address] IGRE % 0.3 0.0 - 0.4 % [facility] REGIO N Comment: IGRE % count includes Metamyelocytes, My elocytes, and Promyelocytes. As part of Differential performed at [facility], [address] [place] [address] Neutrophil Abs 2.07 1.70 - 7.30 K/uL [facility] REGION Comment: As part of Differential perform ed at [facility], [address] [place] [address] Lymphocyte Abs 1.58 1.00 - 4.80 K/uL [facility] REGION Comment: As part of Differential perform ed at [facility], [address] [address] [facility], [place] [address] Monocyte Abs 0.21 0.08 - 0.70 K/uL [facility] Comment: As part of Differential perform ed at [facility], [address] [place] [address] Eosinophil Abs 0.10 0.04 - 0.40 K/uL [facility] REGION Comment: As part of Differential perform ed at [facility], [address] [place] [address] Basophil Abs 0.00 0.00 - 0.10 K/uL [facility] Comment: As part of Differential perform ed at [facility], [address] [place] [address] IG Abs 0.01 0.00 - 0.04 K/uL [facility] Comment: As part of Differential perform ed at [facility], [address] [place] [address] Specimen Anatomical Collection Method Collection Time Receive d Time (Source) Location / / Volume Laterality Blood 05/01/2023 10:56 05/01/2023 AM CDT 11:03 AM CDT Jennifer PÉREZ LAB BLOOD ORDERABLES Performing Organization Address City/State/ZIP Code Phon e Number [address] [address] April [facility], Room #[id number] Prothrombin Time (05/01/2023 10:56 AM CDT) athologist Signature PT 13.9 11.9 - 14.5 [facility] second(s) REGION Comment: Testing performed at [facility], [address] [place] [address] INR 1.05 0.87 - 1.12 [facility] REGIO N Comment: Testing performed at [facility], [address] [place] [address] Specimen Anatomical Collection Method Collection Time Receive d Time (Source) Location / / Volume Laterality Blood 05/01/2023 10:56 05/01/2023 AM CDT 11:03 AM CDT Narrative [facility] - 05/01/2023 11:28 A M CDT This lab cannot be scheduled at the foll owing locations due to collection/proccessing restrictions: [facility] and [facility]. Jennifer PÉREZ LAB BLOOD ORDERABLES Performing Organization Address City/State/ZIP Code Phon e Number [facility] [place] [address] [facility] [address] April Ruggiero, Room #[id number] Pain Management Ultrasound (11/30/2022 1:24 PM EXTRACT OPERATOR) Specimen (Source) Anatomical Location Collection Method / Collectio n Time Received Time / Laterality Volume Narrative Systemgenerated, Documentation - 023 1:24 PM EXTRACT OPERATOR This procedure requires no interpretatio n from the radiologist. Nolberto Israel MD IMG NON DI ORDERABLES after 08/01/2022 Insurance Payer Benefit Plan / Subscriber ID Effective Dates Phone Addre ss Type Group [employer] MEDICARE AETNA MEDICARE [id number] 2019-Presen [address] [place] [address] Advance Directives Code Status Date Activated Date Inactivated Comments Full Code 11/28/2016 11:38 AM 11/29/2016 1:23 PM Care Teams Finish Mixer Relationship Specialty Start Date End Date Deonna Leiva, PCP - General Gynecologic Medical 10/30/16 MD Oncology Denzel Pritchett PCP - External Obstetrics/Gynecology 10/30/16 "MD Eli Referring Mateo Chavez PCP - External Primary Internal Medicine 11/08/16 MD Malena Care Provider [address] [place] [id number] David Dobson Consulting Physician Cardiology 12/23/21 MD Jeremie [address] [place] [id number] Susan Baird, Consulting Physician Internal Medicine 11/18/[address] [place] [id number] Star Treviño MD Consulting Physician Cardiology 11/21/[address] [place] [phone] Nolberto Israel, Consulting Physician Pain Management 12/23/[address] [place] [id number] Ophelia Craft, Physician Defect Cutter Surgical Oncology 02/14/[address] [place] [id number]
--- OUTSIDE RECORDS SUMMARY | 2023-08-01 14:36 | XMS REPORT | Continuity of Care Document ---
:1950 Author Organization [facility] t Address [address] [place] [address] Care Team Providers Name Role Phone No, Pcp [facility] Primary Care Physician Unavailable Mateo Chavez Attending Clinician Unavailable SYSTEM, PROVIDER NOT IN Attending Clinician Unavailable DANA THOMAS Attending Clinician Unavailable Rhonda Buenrostro Attending Clinician Dana Thomas MD Attending Clinician Bartolo Kellogg MD Attending Clinician Cesar Dupont Attending Clinician JENNIFER CALDWELL Attending Clinician Unavailable Jennifer Watkins Attending Clinician Sabra Perez MA Attending Clinician GABI SIMON Attending Clinician Unavailable Neetu Palma Attending Clinician Nolberto Stevens MD Attending Clinician Gabi Fitzpatrick Attending Clinician SETH_Sudheer_Brian_ Attending Clinician Unavailable Jenae NICOLE, Kathleen Castaneda Attending Clinician NOLBERTO STEVENS Attending Clinician Unavailable Rigoberto NICOLE, Precious Attending Clinician Samy RN, Chloe Brewer Attending Clinician Unavailable Ely NICOLE, Vickie Vanessa Attending Clinician Unavailable Uvaldo NICOLE, Estee Attending Clinician Unavailable Pedro NICOLE, Dorinda L Attending Clinician Unavailable Pcp, Patient Does Not Have A Attending Clinician [phone] Only, Ang Db Test Attending Clinician Unavailable EbDelores Higgins Attending Clinician EBDELORES VILLAVICENCIO Attending Clinician Unavailable Doctor Unassigned, Novice Attending Clinician Unavailable Arbam NICOLE, Fior Palomino Attending Clinician CHRISTIAN DRIVER Attending Clinician Unavailable Saad VUONG, Angel Attending Clinician Christian Bean Attending Clinician Unavailable Stevan NICOLE, Cherrie Burnett Attending Clinician Unavailable Mirna NICOLE, Carlos Damico Attending Clinician Unavailable Rudy PÉREZ, Neelam Attending Clinician Star Treviño MD Attending Clinician Brooke Sanchez MA Attending Clinician Unavailable Susan Baird MD Attending Clinician Rosalinda Topete RN Attending Clinician Los [place]en Attending Clinician Dar Rosenberg MD Attending Clinician [phone] Yasmin VUONG, Fermin Osullivan Attending Clinician Jazzmine Xiao CRNA Attending Clinician Herberth Mera MD Attending Clinician Roxi Gaytan RN Attending Clinician Unavailable Genaro Dupont Attending Clinician LOS GONSALEZ Attending Clinician Unavailable Cindy Núñez MA Attending Clinician Unavailable REGINE CUELLAR Attending Clinician Unavailable Mateo Chavez Admitting Clinician Unavailable DANA THOMAS Admitting Clinician Unavailable SETH_Sudheer_Brian_ Admitting Clinician Unavailable REGINE CUELLAR Admitting Clinician Unavailable Payers Payer Name Policy Type Policy Number Effective Date Expiration Date Orly reyes [employer] MEDICARE PPO [id number] 2019 00:00:00 [employer] (MEDICARE [id number] 2021 REPLACEMENT PPO) 00:00:00 Problems Condition Condition [...] of fibrillati fibrillati 00:00: t & Plan: [place] on Brandon VUONG g of this Anderso note n might be [...] 5 mg p.o. 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 0-17 ity of incontinen incontinen [place] ce ce 00 MD Mateo meza [facility] Chronic Chronic Disease Active Univers constipati constipati 4-18 it y of on on 00:00: [place] 00 MD Mateo meza [facility] Coronary Coronary Disease Active Last [...] Essential Disease Active Overview: Univers (primary) (primary) 11-08 Formattin i ty of hypertensi hypertensi 00:00: g of this [place] on on 00 note is MD valentina [...] Disease Active Overview: Univer s (severe) (severe) 11-08 Formattin ity of obesity obesity 00:00: g of this [place] due to due to 00 note excess excess might be Anderso calories calories different n from the Cancer original. Center 11/21/2016 Body mass index is 41.48 kg/(m^2). Weight: (!) 106.2 kg (234 lb 2.1 oz) [place] body weight: 52.4 kg (115 lb 7.7 [...] of this issue. Serous Serous Disease Active [facility] cystadenoc cystadenoc 11-08 it y of arcinoma, arcinoma, 00:00[place] NOS of NOS of 00 MD huber [facility]claire [facility] Shoulder Shoulder Problem Active [facility]ale a joint pain Joint Pain 11-02 Or thope 00:00: dic 00 Sports Medicin [...] mathew 00 examinatio examinatio Jazmin [facility] History of History of Disease Resolve 2021-10-28 2021-10-28 Univers malignant malignant d 418 00:00:00 15:19:48 ity of neoplasm neoplasm 00:00: [place] of 00 MD [facility] Allergies, Adverse Reactions, Alerts Allergy Allergy Status Severity Reaction(s) Onset Inactive Treating Comm ents Source Name Type Date Date Clinician Opium Propensi Active Nausea And 2018-[address] [facility]iting [facility]10 [facility] adverse [facility]: Medical reaction 00 Center s Codeine Propensi Active Nausea And 2018-0 [facility] [...] 00 Center s Morphine Propensi Active GI 2017- Nausea Univer s ty to Intolerance 3-03 and ity o f adverse 00:00: vomiting [place] reaction 00 sometime. MD orly [facility] Naloxone Propensi Active GI 2017-0 Univer s ty to Intolerance 3-03 ity o f adverse 00:00: [place] reaction 00 MD orly [facility] Opium Propensi Active GI 2017-0 Univers ty to Intolerance 3-03 ity o f adverse 00:00: [place] reaction 00 MD orly [facility] MORPHINE DRUG Active Med Nausea 2017 MD FLORENCIOI 3-03 Anderso 00:00: n 00 NALOXONE DRUG [...] Fruits [place] 00 with Mateo Souza strawbenjie meza ies, Cancer etc..... Center FRUIT DRUG Active [...] KNOWN Drug Active Univers ALLERGIE Class ity [facility] Family History Family Member Diagnosis Comments Start Date Stop Date Source Natural father Heart attack Universi [facility] [place] [facility] MD Mendoza Estrada r [place] Natural mother [facility] MD Mendoza Estrada r [place] Natural mother Hypertension [facility] ty [facility] MD Mendoza Estrada r [place] Social History Social Habit Start Date Stop Date Quantity Comments Source History of tobacco Cigarette Smoker [facility] MD Batista [facility] Sexual orientation [facility] MD Batista [facility] Cancer Center History SDOH [facility] Alcohol Binge Medical Jessy ter History SDOH [facility] Alcohol Frequency Medical Center History SDOH [facility] Alcohol Std Drinks Medica l Center Alcohol intake 2023-05-02 2023-05-02 Current drinker Unive rsity of 00:00:00 00:00:00 of alcohol [facility]ie phelps (finding) [facility] History of Social 2023-05-02 2023-05-02 Univers ity of function 00:00:00 00:00:00 [facility]ie phelps [facility] Exposure to 2022-10-10 2022-10-20 Not sure University SARS-CoV-2 (event) 00:00:00 11:13:00 [facility] Tobacco use and 2016-11-21 2016-11-21 Smokeless Universit y of exposure 00:00:00 00:00:00 tobacco non-user [facility] Tobacco Comment 2016-11-08 2016-11-08 quit 30yrs [...] Orthopedi c Sports Medicine Tobacco smoking [facility] [place] [facility] xa consumption unknown Medical Bran ch Ex-smoker 2016-11-21 00:00:00 2016-11-21 University o f [place]ie VUONG 00:00:00 [facility] Medications Ordered Filled Start Stop Current Ordering Indication Dosage Frequency Signature Comments Components Source Medication Medication Date Date Medication? Clinician (SIG) Name Name dexAMETHaso 2022-09 Yes 4mg Take 1 Univ ers ne 0-09 tablet (4 ity of (DECADRON) 15:48: mg) by [place] 4 mg tablet 44 mouth MD twice Anderso daily. 5 n days total Cancer Edgar methocarbam 2022-09 Yes muscle 750mg Take 1 U nivers ol 0-09 spasm tablet ity of (ROBAXIN) 15:48: (750 mg) [place] 750 mg 44 by mouth tablet every 8 Anderso (eight) n hours. Cancer Center dexAMETHaso Yes 4mg Take 1 Univ ers ne 6-24 tablet (4 ity of (DECADRON) 22:39: mg) by [place] 4 mg tablet 15 mouth MD twice Anderso daily. 5 n days total [facility] traMADol 2022- No 50mg Take 1 Univer s (ULTRAM) 50 - 02-20 tablet (50 i ty of mg tablet 05:01: 00:00 mg) by [place] 57 :00 mouth as MD needed. [facility] traMADol 2022- No 50mg Take 1 Univer s (ULTRAM) 50 - 02-20 tablet (50 i ty of mg tablet 05:01: 00:00 mg) by [place] 57 :00 mouth as MD needed. [facility] letrozole 2021-09- No Metastatic 2.5mg Take 1 Univers (Femara) 10-20 cancer to tablet ity of 2.5 mg 00:00: 05:59 the (2.5 mg) [place] tablet 00 :00 peritoneum by mouth MD daily for Anderso 90 days. [facility] letrozole 2021-09- No Metastatic 2.5mg Take 1 Univers (Femara) 10-20 cancer to tablet ity of 2.5 mg 00:00: 00:00 the (2.5 mg) [place] tablet 00 :00 peritoneum by mouth MD daily for Anderso 90 days. [facility] letrozole 2021-09- No Metastatic 2.5mg Take 1 Univers (Femara) 10-20 cancer to tablet ity of 2.5 mg 00:00: 00:00 the (2.5 mg) [place] tablet 00 :00 peritoneum by mouth MD daily for Anderso 90 days. [facility] letrozole 2021-09- No Metastatic 2.5mg Take 1 Univers (Femara) 10-20 cancer to tablet ity of 2.5 mg 00:00: 00:00 the (2.5 mg) [place] tablet 00 :00 peritoneum by mouth MD daily for Anderso 90 days. [facility] pregabalin Yes Chronic 50mg Take 1 Un ashli (Lyrica) 50 8-22 pain capsule ity o f mg capsule 00:00: (50 mg) by [place] 00 mouth MD twice Anders[place] daily. Cancer [place] pregabalin Yes Chronic 50mg Take 1 Un ashli (Lyrica) 50 8-22 pain capsule ity o f mg capsule 00:00: (50 mg) by [place] 00 mouth MD twice Anderso daily. Cancer [place] pregabalin Yes Chronic 50mg Take 1 Un ashli (Lyrica) 50 8-22 pain capsule ity o f mg capsule 00:00: (50 mg) by [place] 00 mouth MD twice Anderso daily. [facility] pregabalin Yes Chronic 50mg Take 1 Un ashli (Lyrica) 50 8-22 pain capsule ity o f mg capsule 00:00: (50 mg) by [place] 00 mouth MD twice Anderso daily. [facility] metoprolol Yes Coronary TAKE ONE Univers tartrate 6-20 artery TABLET BY ity of (LOPRESSOR) 00:00: disease due MOUTH [place] 25 mg 00 to TWICE A MD tablet calcified DAY Anderso coronary n lesion Cancer Center metoprolol Yes Coronary TAKE ONE Univers tartrate 6-20 artery TABLET BY ity of (LOPRESSOR) 00:00: disease due MOUTH [place] 25 mg 00 to TWICE A MD tablet calcified DAY Anderso coronary n lesion Cancer Center metoprolol Yes Coronary TAKE ONE Univers tartrate 6-20 artery TABLET BY ity of (LOPRESSOR) 00:00: disease due MOUTH [place] 25 mg 00 to TWICE A MD tablet calcified DAY Anderso coronary n lesion Cancer Center metoprolol Yes Coronary TAKE ONE Univers tartrate 6-20 artery TABLET BY ity of (LOPRESSOR) 00:00: disease due MOUTH [place] 25 mg 00 to TWICE A MD tablet calcified DAY Anderso coronary n lesion Cancer Center diclofenac 0 Yes Chronic 2g Apply 2 g Univers sodium 5-19 pain topically ity of (Voltaren) 00:00: 3 (three) [place] 1 % gel 00 times a MD day. Anderso Cancer [facility] diclofenac Yes Chronic 2g Apply 2 g Univers sodium 5-19 pain topically ity of (Voltaren) 00:00: 3 (three) [place] 1 % gel 00 times a MD day. Anderso n [facility] diclofenac 2021-0 Yes Chronic 2g Apply 2 g Univers sodium 5-19 pain topically ity of (Voltaren) 00:00: 3 (three) [place] 1 % gel 00 times a MD day. [facility] diclofenac 2021-0 Yes Chronic 2g Apply 2 g Univers sodium 5-19 pain topically ity of (Voltaren) 00:00: 3 (three) [place] 1 % gel 00 times a MD day. [facility] ondansetron 2021- No Metastatic Take 1 Univers [...] No Metastatic 10mg Take 1 Univers azine -07-21 cancer to tablet (10 it y of [...] No Metastatic 10mg Take 1 Univers azine 4-14 07- cancer to tablet (10 it y of [...] No Metastatic 10mg Take 1 Univers azine 4-21 10-28 cancer to tablet (10 it y of (Compazine) 00:00: 00:00 the mg) by [place] 10 mg 00 :00 peritoneum mouth MD tablet every 6 Anderso (six) n hours as Cancer needed for Center nausea or vomiting. ondansetron 2021- No Neoplasm, Take 1 tab Univers (Zofran) 8 12-25 04- malignant every 8 ity of mg [...] No 650mg Take 650 Univers en 12-23 04-01 mg by ity of (TYLENOL) 13:01: 00:00 mouth [place] 325 mg 04 :00 every 6 MD tablet (six) Anderso hours as n needed for Cancer mild pain. [place] acetaminoph 2021- 650mg Take 650 Univers en 12-23- mg by ity of (TYLENOL) 13:01: 00:00 mouth [place] 325 mg 04 :00 every 6 MD tablet (six) Anderso hours as n needed for Cancer mild pain. [place] pregabalin 2021- No Chronic 25mg Take 1 U nivers (Lyrica) 25 12-23 pain capsule ity of mg capsule 00:00: 00:00 (25 mg) by [place] 00 :00 mouth MD twice Anderso daily. n [facility] pregabalin 2021- No Chronic 25mg Take 1 U nivers (Lyrica) 25 12-23 pain capsule ity of mg capsule 00:00: 00:00 (25 mg) by [place] 00 :00 mouth MD twice Anderso daily. n [facility] pregabalin 2021- No Chronic 25mg Take 1 U nivers (Lyrica) 25 12-23 pain capsule ity of mg capsule 00:00: 00:00 (25 mg) by [place] 00 :00 mouth MD twice Anderso daily. n [facility] HYDROcodone 2021- No Chronic 1{tbl} [...] traMADol 50mg 50 mg Univers (ULTRAM) 50 3-20 01- every 6 ity of mg tablet 00:00: 00:00 (six) [place] 00 :00 hours as MD needed. [facility] traMADol 2021- No 50mg 50 mg Univers (ULTRAM) 50 3- every 6 ity of mg tablet 00:00: 00:00 (six) [place] 00 :00 hours as MD needed. [facility] 2021- No 1{tbl} Take 1 Univ ers ORAL 3-16 03-16 tablet by ity of 13:57: 00:00 mouth [place] 12 :00 daily. [facility] 2021- No 1{tbl} Take 1 Univ ers ORAL 3-16 03-16 tablet by ity of 13:57: 00:00 mouth [place] 12 :00 [facility]. [facility] Eliqu 5 Yes 5mg Take 1 Univer s mg tablet 3-14 tablet (5 ity o f 00:00: mg) by mouth MD kelli Galindo daily. [facility] Entresto Yes 1{tbl} Take 1 Unive rs 24-26 mg 3-14 tablet by ity of tab per 00:00: mouth [place] tablet 00 twice MD daily. [facility] furosemide Yes 20mg Take 1 Unive rs (LASIX) 20 3-14 tablet by ity of mg tablet 00:00: mouth [place] 00 daily. [facility] spironolact Yes 50mg Take 1 Univ ers one 3-14 tablet by ity of (ALDACTONE) 00:00: mouth [place] 50 mg 00 daily. tablet [facility] Eliquis 5 Yes 5mg Take 1 Univer s mg tablet 3-14 tablet (5 ity o f 00:00: mg) by 00 mouth MD [facility] Take 1 Unive rs 24-26 mg 3-14 tablet by ity of tab per 00:00: mouth [place] tablet 00 twice MD daily. [facility] furosemide Yes 20mg Take 1 Unive rs (LASIX) 20 3-14 tablet by ity of mg tablet 00:00: mouth [place] 00 daily. MD Galindo [facility] spironolact Yes 50mg Take 1 Univ ers one 3-14 tablet by ity of (ALDACTONE) 00:00: mouth [place] 50 mg 00 daily. [facility] Eliquis 5 Yes 5mg Take 1 Univer s mg tablet 3-14 tablet (5 ity o f 00:00: mg) by mouth MD twice Anderso daily. [facility] Entresto Yes 1{tbl} Take 1 Unive rs 24-26 mg 3-14 tablet by ity of tab per 00:00: mouth [place] tablet 00 twice MD daily. [facility] furosemide Yes 1{tbl} Take 1 Uni vers (LASIX) 20 3-14 tablet (20 ity of mg tablet 00:00: mg) by mouth MD daily. [facility] spironolact Yes 50mg Take 1 Univ ers one 3-14 tablet (50 ity of (ALDACTONE) 00:00: mg) [place] 50 mg 00 mouth MD tablet daily. [facility] Eliqu 5 Yes 5mg Take 1 Univer s mg tablet 3-14 tablet (5 ity o f 00:00: mg) by [place] mouth MD twice Anderso daily. [facility] Entresto Yes 1{tbl} Take 1 Unive rs 24-26 mg 3-14 tablet by ity of tab per 00:00: mouth [place] tablet 00 twice MD daily. [facility] furosemide Yes 1{tbl} Take 1 Uni vers (LASIX) 20 3-14 tablet (20 ity of mg tablet 00:00: mg) by [place] mouth MD daily. [facility] spironolact Yes 1{tbl} Take 1 Un ashli one 3-14 tablet (50 ity of (ALDACTONE) 00:00: mg) [place] 50 mg 00 mouth MD tablet daily. [facility] amLODIPine 2021- No 5mg Take 5 mg U nivers (NORVASC) 5 -23 02-23 by mouth ity of mg tablet 10:20: 00:00 twice [place] 17 :00 daily. MD Mateo meza [facility] amLODIPine 2021- No 5mg Take 5 mg U nivers (NORVASC) 5 11-16 by mouth ity of mg tablet 10:20: 00:00 twice [place] 17 :00 daily. MD Mateo meza [facility] aspirin 81 2021- No 81mg Take 81 mg Univers mg EC 11-16 by mouth ity of tablet 10:19: 00:00 daily. [place] 29 :00 Reported MD fredrick Galindo 01/24/2017 [facility] aspirin 81 2021- No 81mg Take 81 mg Univers mg EC 11-16 by mouth ity of tablet 10:19: 00:00 daily. [place] 29 :00 Reported MD fredrick Galindo 01/24/2017 [facility] DIGOXIN 2021- No 125mg Take 125 Univ ers ORAL - 02-23 mg by ity of 10:19: 00:00 mouth [place] 20 :00 daily. MD Mateo meza [facility] DIGOXIN 2021- No 125mg [...] mouth tablet calcified twice Anderso coronary daily. n [facility] metoprolol 2021- No Coronary 25mg Take 1 Univers tartrate 11-16 06-20 artery tablet (25 it y of (LOPRESSOR) 00:00: 00:00 disease due mg) by [place] 25 mg 00 :00 to mouth tablet calcified twice Anderso coronary daily. n [facility] ondansetron 2020-09 Yes 4mg Take 1 Univ ers (ZOFRAN) 4 1-05 tablet by ity of mg tablet 00:00: mouth [place] 00 needed. MD Mateo meza [facility] ondansetron 2020-09 Yes 4mg Take 1 Univ ers (ZOFRAN) 4 1-05 tablet by ity of mg tablet 00:00: mouth as [place] 00 needed. MD Mateo meza [facility] ondansetron 2020-09 Yes 4mg Take 1 Univ ers (ZOFRAN) 4 1-05 tablet (4 ity of mg tablet 00:00: mg) by [place] mouth as MD needed. Mateo [facility] ondansetron 2020-09 Yes 4mg Take 1 Univ ers (ZOFRAN) 4 1-05 tablet (4 ity of mg tablet 00:00: mg) by [place] mouth as MD needed. Mateo [facility] levothyroxi 2020-09 Yes 25ug Take 1 Univ ers ne 0-15 tablet by ity of (SYNTHROID, 00:00: mouth [place] LEVOTHROID) 00 daily. 25 mcg Mateo jennings [facility] famotidine 2020-09 Yes 20mg Take 1 Unive rs (PEPCID) 20 0-15 tablet by ity of mg tablet 00:00: mouth [place] daily. MD Mateo meza [facility] levothyroxi 2020-09 Yes 25ug Take 1 Univ ers ne 0-15 tablet by ity of (SYNTHROID, 00:00: mouth [place] LEVOTHROID) 00 daily. 25 mcg Mateo tablet [facility] famotidine 2020-09 Yes 20mg Take 1 Unive rs (PEPCID) 20 0-15 tablet by ity of mg tablet 00:00: mouth [place] daily. MD Mateo meza [facility] levothyroxi 2020-09 Yes 25ug Take 1 Univ ers ne 0-15 tablet (25 ity of (SYNTHROID, 00:00: mcg) by [place] LEVOTHROID) 00 mouth 25 mcg daily. Mateo jennings [facility] famotidine 2020-09 Yes 20mg Take 1 Unive rs (PEPCID) 20 0-15 tablet (20 it y of mg tablet 00:00: mg) by [place] mouth daily. Mateo [facility] levothyroxi 2020-09 Yes 25ug Take 1 Univ ers ne 0-15 tablet (25 ity of (SYNTHROID, 00:00: mcg) by [place] LEVOTHROID) 00 mouth 25 mcg daily. Mateo jennings [facility] famotidine 2020-09 Yes 1{tbl} Take 1 Uni vers (PEPCID) 20 0-15 tablet (20 it y of mg tablet 00:00: mg) by [place] 00 mouth MD daily. [facility] traMADol 2021- No 1{tbl} Take 1 Univ ers (ULTRAM) 50 03-14-16 tablet by it y of mg tablet 00:00: 00:00 mouth as [place] 00 :00 needed. MD Galindo [facility] traMADol 2021- No 1{tbl} Take 1 Univ ers (ULTRAM) 50 03-1416 tablet by it y of mg tablet 00:00: 00:00 mouth as [place] 00 :00 needed. MD Galindo [facility] pravastatin Yes 20mg Take 1 Univ ers (PRAVACHOL) 6-13 tablet by ity of 20 mg 00:00: mouth [place] tablet 00 daily. MD Galindo [facility] pravastatin Yes 20mg Take 1 Univ ers (PRAVACHOL) 6-13 tablet by ity of 20 mg 00:00: mouth [place] tablet 00 [facility]. [facility] pravastatin Yes 20mg Take 1 Univ ers (PRAVACHOL) 6-13 tablet (20 it y of 20 mg 00:00: mg) by [place] tablet 00 mouth daily. [facility] pravastatin Yes 20mg Take 1 Univ ers (PRAVACHOL) 6-13 tablet (20 it y of 20 mg 00:00: mg) by [place] tablet 00 mouth daily. [facility] clopid[facility]rel 2021- No 1{tbl} Take 1 U nivers (PLAVIX) 75 03-0516 tablet by it y of mg tablet 00:00: 00:00 mouth [place] 00 :00 daily. MD Galindo [facility] spironolact 2021- No 1{tbl} Take 1 U nivers one 03-0516 tablet by ity of (ALDACTONE) 00:00: 00:00 [place] 25 mg 00 :00 daily. [facility]- No 1{tbl} Take 1 [...] 800 Anderso mg-160 mg n per tablet [facility] sulfamethox 2021- No 1{tbl} Take 1 U nivers azole-trime -12 24- tablet by it y of thoprim 00:00: 00:00 mouth [place] (BACTRIM 00 :00 daily. MD PATEL) 800 [place] mg-160 mg n per tablet [facility] ergocalcife 2021- No [id number] 50,000 U nivers rol 12-23-23 Units ity of (DRISDOL) 00:00: 00:00 every 30 [place] 50,000 00 :00 (thirty) MD units days. Anddalio capsule [facility] 2021- No [id number] 50,000 U nivers rol 12-23-23 Units ity of (DRISDOL) 00:00: 00:00 every 30 [place] 50,000 00 :00 (thirty) MD units days. Mateo capsule [facility] losartan 2019-09- No Univers (COZAAR) 50 10-21-16 ity of mg tablet 00:00: 00:00 [place] 00 :00 MD Mateo meza [facility] losartan 2019-09- No Univers (COZAAR) 50 10-21-16 ity of mg tablet 00:00: 00:00 [place] 00 :00 MD Mateo meza [facility] aspirin 81 2018-0 Yes 81mg QD Take [address] MG EC 8-15 by mouth [facility] tablet 10:18: daily. [address] atenolol 2018-0 Yes 100mg QD Take [address] (TENORMIN) 8-15 mg by [facility] 100 MG 10:18: mouth Medical tablet 40 daily. [place] chlorthalid 2018-0 Yes 25mg QD Take [address] one 8-15 by mouth [facility] (HYGROTON) 10:18: daily. Medic al 25 MG 40 Center tablet aspirin 81 2018-0 Yes 81mg QD Take [address] MG EC 8-15 by mouth [facility] tablet 10:18: daily. Medical 40 [place] atenolol 2018-0 Yes 100mg QD Take [address] (TENORMIN) 8-15 mg by [facility] 100 MG 10:18: mouth Medical tablet 40 daily. [place] chlorthalid 2018-0 Yes 25mg QD Take [address] one 8-15 by mouth [facility] (HYGROTON) 10:18: daily. Medic al 25 MG 40 Center tablet aspirin 81 2018-0 Yes 81mg QD Take [address] MG EC 8-15 by mouth [facility] tablet 10:18: daily. [facility] 40 [place] atenolol 2018-0 Yes 100mg QD Take [address] (TENORMIN) 8-15 mg by [facility] 100 MG 10:18: mouth Medical tablet 40 daily. [place] chlorthalid 2018-0 Yes 25mg QD Take 25 [...] route. by oral route. Immunizations Ordered Filled Date Status Comments Source Immunization Name Immunization Name Pfizer SARS-CoV-2 2021-05-14 Completed Univer sity of Vaccination (Purple 00:00:00 [place] VUONG Cap) [facility] Pfizer SARS-CoV-2 2021-05-14 Completed Univer sity of Vaccination (Purple 00:00:00 [place] VUONG Cap) [facility] Pfizer SARS-CoV-2 2021-05-14 Completed Univer sity of Vaccination (Purple 00:00:00 [place] VUONG Cap) [facility] Pfizer SARS-CoV-2 2021-04-25 Completed Univer sity of Vaccination (Purple 00:00:00 [place] VUONG Cap) [facility] Pfizer SARS-CoV-2 2021-04-25 Completed Univer sity of Vaccination (Purple 00:00:00 [place] VUONG Cap) [facility] SARS-CoV-2 2021-04-25 Completed Univer sity of Vaccination (Purple 00:00:00 [place]ie VUONG Cap) [facility] Pfizer SARS-CoV-2 Unknown Completed Univer sity of Vaccination (Purple [place] Cap) [facility] Pfizer SARS-CoV-2 Unknown Completed Univer sity of Vaccination (Purple [place] Cap) [facility] Vital Signs Vital Name Observation Time Observation Value Comments Source Height 2022-12-19 00:00:00 64 [in_i] [facility] BMI (Body Mass 2022-12-19 00:00:00 37.1 kg/m2 [facility] Body Weight 2022-12-19 00:00:00 216 [lb_av] [facility] Body weight 2023-07-16 15:12:00 95.3 kg [facility] BMI 2023-07-16 15:12:00 37.23 kg/m2 [facility] Systolic blood 2023-05-02 21:15:00 123 mm[Hg] Univer [facility]ity [facility] pressure [place] [facility] Diastolic blood 2023-05-02 21:15:00 77 mm[Hg] Unive rsity of pressure [place] [facility] Heart rate 2023-05-02 21:15:00 88 /min [facility] [place] Body temperature 2023-05-02 21:15:00 36 Clarisse Univ ersity [facility] [place] Respiratory rate 2023-05-02 21:15:00 19 /min Univ [facility] [place] Oxygen saturation in 2023-05-02 21:15:00 98 /min [facility] of Arterial blood by Virginie felder Pulse oximetry [facility] Body weight 2023-04-20 13:04:00 96.9 kg Universi [...] 2022-10-20 17:23:00 37.73 kg/m2 [facility] [place] [facility] Body height 2022-10-19 14:43:00 161.5 cm [facility] [place] [facility] Systolic blood 2022-08-14 15:09:34 131 mm[Hg] [facility] [place] [facility] Diastolic blood 2022-08-14 15:09:34 76 mm[Hg] Unive rsity of pressure [place] [facility] Heart rate 2022-08-14 15:09:34 70 /min [facility] [place] [facility] Body temperature 2022-08-14 15:09:34 36.39 Clarisse [facility] Respiratory rate 2022-08-14 15:09:34 18 /min [facility] Body weight 2022-08-14 15:09:34 100.7 kg [facility] [place] [facility] BMI 2022-08-14 15:09:34 38.61 kg/m2 [facility] [place] [facility] Oxygen saturation in 2022-03-17 14:50:26 96 /min [place] [facility] Arterial blood by Virginie felder Pulse [facility] Procedures Procedure Date / Time Performing Clinician Source Performed CANCER ANTIGEN 125 2023-07-16 19:03:00 Rhonda Carty [facility] PETCT SUBSEQUENT TREATMENT 2023-07-16 16:56:05 Rhonda Carty [facility] STRATEGY [facility] IR CT GUIDED BIOPSY 2023-05-02 20:10:13 [facility]SOFT TISSUE PELVIC And [address] COMPLETE BLOOD COUNT W/ 2023-05-01 15:56:00 Jennifer Caldwell [facility] DIFFERENTIAL [facility] PROTHROMBIN TIME 2023-05-01 15:56:00 Jennifer Caldwell [facility] .CBC 2023-05-01 15:56:00 Jennifer Caldwell [facility] DIFFERENTIAL 2023-05-01 15:56:00 Jennifer Caldwell [facility] CANCER ANTIGEN 125 2023-04-20 12:22:00 Gabi Simon [facility] PETCT SUBSEQUENT TREATMENT 2023-04-19 20:00:36 Rhonda Carty [facility] CANCER ANTIGEN 125 2023-01-18 14:49:00 Rhonda Carty [facility] XR, knee, 1 or 2 view 2022-12-19 00:00:00 [facility] PAIN MANAGEMENT ULTRASOUND 2022-11-30 19:24:21 Nolberto Stevens [facility] PETCT SUBSEQUENT TREATMENT 2022-10-19 16:16:00 Rhonda Carty [facility] CANCER ANTIGEN 125 2022-10-19 14:09:00 Rhonda Carty [facility] CANCER ANTIGEN 125 2022-07-21 15:27:[address] [facility] COMPLETE BLOOD COUNT W/ 2022-07-21 15:27:[address] [facility] DIFFERENTIAL [facility] BASIC METABOLIC PANEL, 2022-07-21 15:27:24 [facility] BILIRUBIN TOTAL 2022-07-21 15:27:24 Dana Thomas [facility] ALANINE AMINOTRANSFERASE 2022-07-21 15:27:24 Dana Thomas [facility] ASPARTATE AMINOTRANSFERASE 2022-07-21 15:27:24 Dana Thomas [facility] MAGNESIUM LEVEL 2022-07-21 15:27:24 Dana Thomas [facility] GLUCOSE LEVEL 2022-07-21 15:27:24 Dana Thomas [facility] BLOOD UREA NITROGEN 2022-07-21 15:27:24 Dana Thomas [facility] ELECTROLYTE PANEL 2022-07-21 15:27:[address] [facility] SERUM CREATININE 2022-07-21 15:27:24 Dana Thomas [facility] .GLOMERULAR FILTRATION 2022-07-21 15:27:24 [facility] RATE [facility] CALCIUM LEVEL TOTAL 2022-07-21 15:27:24 Dana Thomas [facility] Results CBC 2022-07-21 15:27:24 Dana Thomas [facility] MANUAL DIFFERENTIAL 2022-07-21 15:27:24 Dana Thomas [facility] EKG, 12-LEAD (SCHEDULED) 2022-07-21 00:00:00 Dana Thomas [facility] PETCT SUBSEQUENT TREATMENT 2022-07-20 15:24:27 Gabi Simon [facility] STRATEGY [facility] CANCER ANTIGEN 125 2022-06-23 18:39:[address] [facility] COMPLETE BLOOD COUNT W/ 2022-06-23 18:39:37 Dana Thomas [facility] DIFFERENTIAL [facility] BASIC METABOLIC PANEL, 2022-06-23 18:39:37 Dana Thomas [facility] CALCIUM TOTAL [facility] BILIRUBIN TOTAL 2022-06-23 18:39:37 Dana Thomas [facility] ALANINE AMINOTRANSFERASE 2022-06-23 18:39:37 Dana Thomas [facility] ASPARTATE AMINOTRANSFERASE 2022-06-23 18:39:37 Dana Thomas [facility] MAGNESIUM LEVEL 2022-06-23 18:39:37 Dana Thomas [facility] GLUCOSE LEVEL 2022-06-23 18:39:37 Dana Thomas [facility] BLOOD UREA NITROGEN 2022-06-23 18:39:37 Dana [facility] ELECTROLYTE PANEL 2022-06-23 18:39:[address] [facility] SERUM CREATININE 2022-06-23 18:39:37 Dana Thomas [facility] .GLOMERULAR FILTRATION 2022-06-23 18:39:37 Dana Thomas [facility] R[facility] CALCIUM LEVEL TOTAL 2022-06-23 18:39:37 Dana Thomas [facility] Results CBC 2022-06-23 18:39:37 Dana Thomas [facility] MANUAL DIFFERENTIAL 2022-06-23 18:39:37 Dana Thomas [facility] PAIN MANAGEMENT 2022-06-19 14:08:16 Nolberto Stevens [facility] CANCER ANTIGEN 125 2022-05-26 14:02:00 [facility]LO[facility] COUNT W/ 2022-05-26 14:02:00 Rhonda Carty [facility] DIFFERENTIAL [facility] BASIC METABOLIC PANEL, 2022-05-26 14:02:00 Rhonda Carty [facility] CALCIUM TOTAL [facility] BILIRUBIN TOTAL 2022-05-26 14:02:00 Rhonda Carty o f [facility] ALANINE AMINOTRANSFERASE 2022-05-26 14:02:00 [facility] ASPARTATE AMINOTRANSFERASE 2022-05-26 14:02:00 [facility] MAGNESIUM LEVEL 2022-05-26 14:02:00 Rhonda Carty [facility] GLUCOSE LEVEL 2022-05-26 14:02:00 Machelle [facility] BLOOD UREA NITROGEN 2022-05-26 14:02:00 Rhonda Carty [facility] ELECTROLYTE PANEL 2022-05-26 14:02:00 Machelle [facility] SERUM CREATININE 2022-05-26 14:02:00 Machelle [facility] .GLOMERULAR FILTRATION 2022-05-26 14:02:00 Rhonda Carty [facility] RATE [facility] CALCIUM LEVEL TOTAL 2022-05-26 14:02:00 Rhonda Carty [facility] Results CBC 2022-05-26 14:02:00 Machelle [facility] MANUAL DIFFERENTIAL 2022-05-26 14:02:00 Rhonda Carty [facility] EKG, 12-LEAD (SCHEDULED) 2022-05-26 00:00:00 Rhonda Carty [facility] CANCER ANTIGEN 125 2022-04-26 12:19:[address] [facility] COMPLETE BLOOD COUNT W/ 2022-04-26 12:19:00 [facility] DI[facility] BASIC METABOLIC PANEL, 2022-04-26 12:19:00 [facility] CALCIUM TOTAL [facility] BILIRUBIN TOTAL 2022-04-26 12:19:00 Dana Thomas [facility] ALANINE AMINOTRANSFERASE 2022-04-26 12:19:00 Dana Thomas [facility] ASPARTATE AMINOTRANSFERASE 2022-04-26 12:19:00 Dana Thomas [facility] MAGNESIUM LEVEL 2022-04-26 12:19:00 Dana Thomas [facility] GLUCOSE LEVEL 2022-04-26 12:19:00 Dana Thomas [facility] BLOOD UREA NITROGEN 2022-04-26 12:19:00 Dana Thomas [facility] ELECTROLYTE PANEL 2022-04-26 12:19:00 Dana Thomas Univers ity [facility] SERUM CREATININE 2022-04-26 12:19:00 Dana Thomas [facility] .GLOMERULAR FILTRATION 2022-04-26 12:19:00 Dana [facility] CALCIUM LEVEL TOTAL 2022-04-26 12:19:00 Dana Thomas [facility] Results CBC 2022-04-26 12:19:00 Dana Thomas [facility] MANUAL DIFFERENTIAL 2022-04-26 12:19:00 Dana Thomas [facility] CT CHEST ABDOMEN PELVIS W 2022-04-20 18:27:43 Gabi Simon [facility] CONTRAST [facility] POC CREATININE 2022-04-20 17:39:00 Gabi Simon [place] [facility] ASSIGNMENT OF BENEFITS 2022-04-06 20:28:52 Doctor Unassigned, No [facility] SERUM CREATININE 2022-03-17 12:42:58 Christian Driver [facility] .GLOMERULAR FILTRATION 2022-03-17 12:42:58 Christian Driver [facility] CALCIUM LEVEL TOTAL 2022-03-17 12:42:58 Christian Driver [facility] Results CBC 2022-03-17 12:42:58 Christian Driver [place] [facility] Center MANUAL DIFFERENTIAL 2022-03-17 12:42:58 Christian Driver [facility] CANCER ANTIGEN 125 2022-03-17 12:42:58 Christian Driver [facility] COMPLETE BLOOD COUNT W/ 2022-03-17 12:42:58 Christian Driver [facility] DIFFERENTIAL [facility] BASIC METABOLIC PANEL, 2022-03-17 12:42:58 Christian Driver [facility] CALCIUM TOTAL [facility] BILIRUBIN TOTAL 2022-03-17 12:42:58 Christian Driver [place] [facility] Center ALANINE AMINOTRANSFERASE 2022-03-17 12:42:58 Christian Driver [facility] ASPARTATE AMINOTRANSFERASE 2022-03-17 12:42:58 Christian Driver [facility] MAGNESIUM LEVEL 2022-03-17 12:42:58 Christian Driver [place] o [facility] Center GLUCOSE LEVEL 2022-03-17 12:42:58 Christian Driver [facility] Center BLOOD UREA NITROGEN 2022-03-17 12:42:58 Christian Driver [facility] ELECTROLYTE PANEL 2022-03-17 12:42:58 Christian Driver [facility] EKG, 12-LEAD (SCHEDULED) 2022-03-17 00:00:00 Dana Thomas [facility] CANCER ANTIGEN 125 2022-02-17 16:57:[address] [facility] COMPLETE BLOOD COUNT W/ 2022-02-17 16:57:28 Dana Thomas [facility] DIFFERENTIAL [facility] BASIC METABOLIC PANEL, 2022-02-17 16:57:28 Dana Thomas [facility] CALCIUM TOTAL [facility] BILIRUBIN TOTAL 2022-02-17 16:57:28 Dana Thomas [facility] ALANINE AMINOTRANSFERASE 2022-02-17 16:57:28 Dana Thomas [facility] ASPARTATE AMINOTRANSFERASE 2022-02-17 16:57:28 Dana Thomas [facility] MAGNESIUM LEVEL 2022-02-17 16:57:28 Dana Thomas [facility] GLUCOSE LEVEL 2022-02-17 16:57:28 Dana Thomas [facility] BLOOD UREA NITROGEN 2022-02-17 16:57:28 Dana Thomas [facility] ELECTROLYTE PANEL 2022-02-17 16:57:[address] [facility] SERUM CREATININE 2022-02-17 16:57:28 Dana Thomas [facility] .GLOMERULAR FILTRATION 2022-02-17 16:57:28 Dana [facility] [place] RATE [facility] CALCIUM LEVEL TOTAL 2022-02-17 16:57:28 Dana Thomas [facility] Results CBC 2022-02-17 16:57:28 Dana Thomas [facility] MANUAL DIFFERENTIAL 2022-02-17 16:57:28 Dana Thomas [facility] CANCER ANTIGEN 125 2022-02-10 15:36:[address] [facility] COMPLETE BLOOD COUNT W/ 2022-02-10 15:36:00 [facility] DIFFERENTIAL [facility] BASIC METABOLIC PANEL, 2022-02-10 15:36:00 Dana Thomas [facility] [place] CALCIUM TOTAL [facility] BILIRUBIN TOTAL 2022-02-10 15:36:00 Dana Thomas [facility] ALANINE AMINOTRANSFERASE 2022-02-10 15:36:00 Dana Thomas [facility] ASPARTATE AMINOTRANSFERASE 2022-02-10 15:36:00 Dana Thomas [facility] MAGNESIUM LEVEL 2022-02-10 15:36:00 Dana Thomas [facility] GLUCOSE LEVEL 2022-02-10 15:36:00 Dana Thomas [facility] BLOOD UREA NITROGEN 2022-02-10 15:36:00 Dana Thomas [facility] ELECTROLYTE PANEL 2022-02-10 15:36:[address] [facility] SERUM CREATININE 2022-02-10 15:36:00 Dana Thomas [facility] .GLOMERULAR FILTRATION 2022-02-10 15:36:00 Dana Thomas [facility] [place] RATE [facility] CALCIUM LEVEL TOTAL 2022-02-10 15:36:00 Dana Thomas [facility] Results CBC 2022-02-10 15:36:00 Dana Thomas [facility] MANUAL DIFFERENTIAL 2022-02-10 15:36:00 Dana Thomas [facility] CANCER ANTIGEN 125 2022-01-13 11:51:[address] [facility] COMPLETE BLOOD COUNT W/ 2022-01-13 11:51:00 Dana Thomas [facility] DIFFERENTIAL [facility] BASIC METABOLIC PANEL, 2022-01-13 11:51:00 Dana Thomsa [facility]ity [facility] [place] CALCIUM TOTAL [facility] BILIRUBIN TOTAL 2022-01-13 11:51:00 Dana Thomas [facility] ALANINE AMINOTRANSFERASE 2022-01-13 11:51:00 Dana Thomas [facility] ASPARTATE AMINOTRANSFERASE 2022-01-13 11:51:00 Dana Thomas [facility] MAGNESIUM LEVEL 2022-01-13 11:51:00 Dana Thomas [facility] GLUCOSE LEVEL 2022-01-13 11:51:00 Dana Thomas [facility] BLOOD UREA NITROGEN 2022-01-13 11:51:00 Dana [facility] ELECTROLYTE PANEL 2022-01-13 11:51:[address] [facility] SERUM CREATININE 2022-01-13 11:51:00 [facility] .GLOMERULAR FILTRATION 2022-01-13 11:51:00 Dana Thomas [facility] [place] RATE [facility] CALCIUM LEVEL TOTAL 2022-01-13 11:51:00 Dana Thomas [facility] Results CBC 2022-01-13 11:51:00 Dana Thomas [facility] MANUAL DIFFERENTIAL 2022-01-13 11:51:00 Dana Thomas [facility] PAIN MANAGEMENT 2022-01-05 18:24:08 Nolberto Stevens [facility] FLUOROSCOPY [facility] CT CHEST ABDOMEN PELVIS W 2021-12-30 16:23:53 Christian Driver [facility] [place] CONTRAST [facility] HEPATIC FUNCTION PANEL 2021-12-30 14:38:00 Christian Driver [facility] ALBUMIN LEVEL 2021-12-30 14:38:00 Christian Driver o f [facility] ALANINE AMINOTRANSFERASE 2021-12-30 14:38:00 Christian Driver Uni versity [facility] ASPARTATE AMINOTRANSFERASE 2021-12-30 14:38:00 Christian Driver [facility] TOTAL PROTEIN 2021-12-30 14:38:00 Christian Driver [place] [facility] FRACTIONATED BILIRUBIN 2021-12-30 14:38:00 Christian Driver [facility] ALKALINE PHOSPHATASE 2021-12-30 14:38:[address] [facility] POC CREATININE 2021-12-30 14:37:00 Christian Driver [place] [facility] US ABDOMEN LIMITED 2021-12-30 14:00:00 Christian Driver [facility] CANCER ANTIGEN 125 2021-12-23 16:48:00 Christian Driver [facility] COMPLETE BLOOD COUNT W/ 2021-12-23 16:48:00 Christian Driver [facility] DIFFERENTIAL [facility] BASIC METABOLIC PANEL, 2021-12-23 16:48:00 Christian Driver [facility] CALCIUM TOTAL [facility] BILIRUBIN TOTAL 2021-12-23 16:48:00 Christian Driver [place] [facility] ALANINE AMINOTRANSFERASE 2021-12-23 16:48:00 Christian Driver [facility] ASPARTATE AMINOTRANSFERASE 2021-12-23 16:48:00 Christian Driver [facility] MAGNESIUM LEVEL 2021-12-23 16:48:00 Christian Driver [place] [facility] GLUCOSE LEVEL 2021-12-23 16:48:00 Christian Driver [facility] BLOOD UREA NITROGEN 2021-12-23 16:48:00 Christian Driver [facility] ELECTROLYTE PANEL 2021-12-23 16:48:00 Christian Driver [facility] SERUM CREATININE 2021-12-23 16:48:00 Christian Driver [facility] .GLOMERULAR FILTRATION 2021-12-23 16:48:00 Christian Driver [facility] [place] RATE [facility] CALCIUM LEVEL TOTAL 2021-12-23 16:48:00 Christian Driver [facility] Results CBC 2021-12-23 16:48:00 Christian Driver [place] [facility] MANUAL DIFFERENTIAL 2021-12-23 16:48:00 Christian Driver [facility] EKG, 12-LEAD (SCHEDULED) 2021-12-14 00:00:00 Neelam Grant [facility] COMBINED RIGHT AND LEFT 2021-11-28 16:10:48 Angel Nash [facility] HEART CATH [facility] POC OXIMETRY VENOUS 2021-11-28 15:44:00 Angel Nashi ty [facility] POC OXIMETRY ARTERIAL 2021-11-28 15:35:00 Angel Nash [facility] POC GLUCOSE SCREEN 2021-11-28 14:47:00 Angel Nash [facility] TYPE AND SCREEN 2021-11-28 13:41:00 Star Treviño [facility] ABORH 2021-11-28 13:41:00 [place] [facility] ANTIBODY SCREEN 2021-11-28 13:41:00 Star Treviño [facility] TMP INTERPRETATION 2021-11-28 13:41:00 Star Treviño [facility] ANTIBODY SCREEN NEGATIVE MD Ferraro [facility] CLOT EXPIRATION DATE 2021-11-28 13:41:[address] [facility] ECHOCARDIOGRAM 2D COMPLETE 2021-11-21 13:51:52 Angel Nash [facility] GENERAL LABORATORY ADD ON 2021-11-18 19:50:00 Susan Baird [facility] TEST [facility] COVID-19 (SARS-COV-2) 2021-11-18 18:07:00 Dana Thomas Uni [facility] PCR-ASYMPTOMATIC [facility] URINE CULTURE 2021-11-18 17:36:00 Dana Thomas [facility] URINALYSIS WITH 2021-11-18 17:36:00 Dana Thomas [facility] MICROSCOPIC IF INDICATED MD Ferraro fredrick [facility] URINALYSIS MICROSCOPIC 2021-11-18 17:36:00 Dana Thomas [facility] CANCER ANTIGEN 125 2021-11-18 17:23:[address] [facility] COMPLETE BLOOD COUNT W/ 2021-11-18 17:23:00 Dana Thomas [facility] DIFFERENTIAL [facility] COMPREHENSIVE METABOLIC 2021-11-18 17:23:00 Dana Thomas [facility] PANEL [facility] PROTHROMBIN TIME 2021-11-18 17:23:00 Dana Thomas [facility] APTT 2021-11-18 17:23:00 Dana Thomas [facility] Results CBC 2021-11-18 17:23:00 Dana Thomas [facility] MANUAL DIFFERENTIAL 2021-11-18 17:23:00 Dana Thomas [facility] GLUCOSE LEVEL 2021-11-18 17:23:00 Dana Thomas [facility] BLOOD UREA NITROGEN 2021-11-18 17:23:00 Dana Thomas [facility] ELECTROLYTE PANEL 2021-11-18 17:23:[address] [facility] SERUM CREATININE 2021-11-18 17:23:00 Dana Thomas [facility] .GLOMERULAR FILTRATION 2021-11-18 17:23:00 [facility] [place] R[facility] CALCIUM LEVEL TOTAL 2021-11-18 17:23:00 Dana Thomas [facility] ALBUMIN LEVEL 2021-11-18 17:23:00 Dana Thomas [facility] ALKALINE PHOSPHATASE 2021-11-18 17:23:00 Dana Thomas [facility] ALANINE AMINOTRANSFERASE 2021-11-18 17:23:00 Dana Thomas [facility] [place] ASPARTATE AMINOTRANSFERASE 2021-11-18 17:23:00 Dana Thomas [facility] TOTAL PROTEIN 2021-11-18 17:23:00 Dana Thomas [facility] [place] FRACTIONATED BILIRUBIN 2021-11-18 17:23:00 Dana [facility] [place] THYROID STIMULATING 2021-11-18 17:23:00 Dana Thomas [facility] HORMONE [facility] FREE THYROXINE 2021-11-18 17:23:00 Dana Thomas [facility] er Center TYPE AND SCREEN 2021-11-18 17:15:00 Dana Thomas [facility] [place] HEMOGLOBIN A1C 2021-11-18 17:15:00 Dana Thomas [facility] Center ABORH 2021-11-18 17:15:00 Dana Thomas [facility] Center ANTIBODY SCREEN 2021-11-18 17:15:00 Dana Thomas [facility] [place] TMP INTERPRETATION 2021-11-18 17:15:00 Dana Thomas [facility] ANTIBODY SCREEN NEGATIVE MD Ferraro [facility] CLOT EXPIRATION DATE 2021-11-18 17:15:00 Dana Thomas [facility] [place] EKG, 12-LEAD (SCHEDULED) 2021-11-16 00:00:00 [place] Uni [facility] er Center US BREAST COMPLETE 2021-11-04 19:27:00 Christian Driver [facility] BILATERAL [facility] er Center US CHEST 2021-11-04 19:27:00 Christian Driver [place] [facility] [place] MAMMO DIGITAL DIAGNOSTIC 2021-11-04 18:27:05 Christian Driver [facility] BILATERAL W OSWALDO [facility] HP MD MICROSATELLITE 2021-10-27 01:03:00 Dana Thomas [facility] INSTABILITY (MSI) ANALYSIS MD Jazmin ackerman Cancer INTERPRETATION AND REPORT Center IR CT GUIDED BIOPSY PELVIC 2021-10-25 19:03:06 Dana Thomas [facility] NON-BONE [facility] CYTOLOGY IMAGE-GUIDED FNA 2021-10-25 18:08:00 Dana Thomas [facility] INTERPRETATION [facility] PATHOLOGY BIOPSY 2021-10-25 18:07:00 Dana Thomas [facility] INTERPRETATION [facility] EKG, 12-LEAD (PORTABLE) 2021-10-25 00:00:00 Genaro Mcclelland [facility] COMPLETE BLOOD COUNT W/ 2021-10-24 15:56:00 Los Gonsalez [facility] DIFFERENTIAL [facility] CARBON DIOXIDE LEVEL 2021-10-24 15:56:[address] [facility] CHLORIDE LEVEL 2021-10-24 15:56:00 Ting [facility] SODIUM LEVEL 2021-10-24 15:56[facility]00 [facility] POT[facility]SI[facility] LEV[facility] 2021-10-24 15:56:00 Ting [facility] SERUM CREATININE 2021-10-24 15:56:00 Ting [facility] BLOOD UREA NITROGEN 2021-10-24 15:56:00 Los Gonsalez [facility] PROTHROMBIN TIME 2021-10-24 15:56:00 Ting [facility] GLUCOSE, RANDOM 2021-10-24 15:56:00 Ting [facility] TYPE AND SCREEN 2021-10-24 15:56:00 Ting [facility] Results CBC 2021-10-24 15:56:00 Ting [facility] MANUAL DIFFERENTIAL 2021-10-24 15:56:00 Los Gonsalez [facility] [place] [facility] SERUM CREATININE 2021-10-24 15:56:00 Ting [facility] .GLOMERULAR FILTRATION 2021-10-24 15:56:00 Los Gonsalez [facility] RATE [facility] Center ABORH 2021-10-24 15:56:00 Ting [facility] ANTIBODY SCREEN 2021-10-24 15:56:00 Ting [facility] ANION GAP 2021-10-24 15:56:00 Ting [facility] TMP INTERPRETATION 2021-10-24 15:56:00 Ting [facility] ANTIBODY SCREEN NEGATIVE MD Ferraro Bronson [facility] CLOT EXPIRATION DATE 2021-10-24 15:56:[address] [facility] COVID-19 (SARS-COV-2) 2021-10-24 15:53:00 Fermin Hoffman [facility] PCR-ASYMPTOMATIC [facility] AP IHC MSI (MLH1, MSH2, 2021-10-16 22:50:[address] [facility] MSH6, PMS2) MATERIAL [facility] Cancer [facility] AP IHC HER2/KIMMIE MATERIAL 2021-10-16 22:50:59 Dana Thomas [facility] AP MSI BY PCR MATERIAL 2021-10-16 22:50:59 Dana Thomas [facility] CT CHEST ABDOMEN PELVIS W 2021-10-13 14:37:33 [facility] CONTR[facility] POC CREATININE 2021-10-13 13:55:00 Christian Driver [facility] OSI BONE DENSITY STUDY 2021-10-07 22:29:00 Mateo Chavez [facility] OSI MAMMO BILATERAL 2021-10-07 22:29:00 Mateo Chavez [facility] Center PATHOLOGY BIOPSY 2021-09-30 19:11:00 Christian Driver [facility] INTERPRETATION [facility] CANCER ANTIGEN 125 2021-09-30 17:35:00 Christian Driver [facility] Center Cancer [facility] Eye [facility] Gallbladder Surgery [facility] Hysterectomy [facility] Plan of Care Planned Activity Planned Date Details Comments Source Future Scheduled 2023-08-01 COVID-19 Vaccination [facility] [place] Test 07:38:40 () MD Ronan mathias Cancer [code = COVID-19 Center Vaccination ()] Future Scheduled 2023-04-20 COVID-19 Vaccination [facility] vers[facility] [...] Date/Time Type Type Clinicians Facility Department ID 2023-05-16 Outpatient Scott[facility] [id number] Common 12:48:00 Mateo 15173 [facility] 2023-05-10 Outpatient Scott, STLMLC [facility] [id number] Common 15:59:01 Mateo 02364 [facility] 2023-03-06 Outpatient Scott, STLC [facility] [id number] Common 10:23:00 Mateo 17825 [facility] 2022-08-15 Outpatient SYSTEM, [facility] [id number] 12:20:21 PROVIDER Mitchell o n 2022-07-05 Outpatient SYSTEM, MDA MDA [id number] 10:19:02 PROVIDER Mitchell o n 2022-03-22 Outpatient SYSTEM, MDA MDA [id number] 12:14:32 PROVIDER Mitchell o n 2021-12-16 Outpatient SYSTEM, MDA MDA [id number] 13:07:24 PROVIDER Mitchell o n 2021-11-07 Outpatient SYSTEM, MDA DILLON [id number] 11:25:34 PROVIDER Mitchell o n 2021-11-04 Inpatient [place], [facility] [id number] 16:17:09 DANA Oncology Mitchell o n 2021-10-19 Outpatient [facility] [id number] Common 14:40:33 [facility] 2023-07-23 2023-07-23 Melonie Carty, 1.2.840.1 [id number] [facility] 00:00:00 00:00:00 Only Rhonda 84917.1.1 ity of 3.412.2.7 [place] .3.477640 .8 [facility] 2023-07-16 2023-07-16 Outpatient [facility] [id number] 13:51:50 14:02:30 DANA meza 2023-07-16 [facility]07[facility]1 [id number] [facility] 09:30:00 12:00:00 Procedure Dana Lr 19347.1.1 i ty of 3.412.2.7 [place] .3.359207 MD [facility]z8 [facility] 2023-07-16 2023-07-16 [facility] MDA [id number] 10:03:31 10:03:31 DANA meza 2023-05-02 2023-05-02 [facility] Dana Thomas 1.2.840.1 [id number] [facility] 13:05:44 23:59:00 Encounter Bartolo Kellogg 14645.1.1 ity of 3.412.2.7 [place] .3.417256 MD Sainz8 [facility] 2023-05-02 2023-05-02 Outpatient KYLER THOMAS [facility] MDA [id number] 13:05:44 23:59:00 DANA Medrano o n 2023-05-02 2023-05-02 Outpatient KYLER THOMAS [facility] MDA [id number] 13:05:44 23:59:00 DANA [id number] Mitchell o susana 2023-05-02 2023-05-02 Melonie Carty 1.2.840.1 [id number] Univers 00:00:00 00:00:00 Only Rhonda 42012.1.1 ity of 3.412.2.7 [place] .3.794477 MD Sainz8 [facility] 2023-05-02 2023-05-02 [facility] 1.2.840.1 1.2.683.540 [id number] Univers 00:00:00 00:00:00 63237.1.1 350.1.13.41 ity of 3.412.2.7 [place].698 [place].248[place] 084.8 MD Sainz8 [facility] 2023-05-01 2023-05-01 [facility] Dana Thomas Adeline 1.2.840.1 [id number] [facility] 10:08:18 23:59:00 Liberty Cesar Mcclelland Eula 14517.1.1 ity of 3.412.2.7 [place] .3.846933 MD Sainz8 [facility] 2023-05-01 2023-05-01 Outpatient KYLER THOMAS, [facility] MDA [id number] 10:08:18 23:59:00 DANA meza 2023-05-01 2023-05-01 Outpatient KYLER CALDWELL, MDA MDA [id number] 10:55:52 11:04:15 JENNIFER meza 2023-04-24 2023-04-24 Melonie Caldwell, 1.2.840.1 [id number] Univers 00:00:00 00:00:00 Only 41352.1.1 ity of 3.412.2.7 [place] .3.700111 MD Sainz8 [facility] 2023-04-24 2023-04-24 Telephone Chris, 1.2.840.1 [id number] Univers 00:00:00 00:00:00 Sabra 49600.1.1 ity of 3.412.2.7 [place] .3.718241 MD Sainz8 [facility] 2023-04-23 2023-04-23 Telephone Machelle, 1.2.840.1 [id number] Univers 00:00:00 00:00:00 Rhonda 18788.1.1 ity of 3.412.2.7 [place] .3.210008 MD Sainz8 [facility] 2023-04-20 2023-04-20 Follow-Up Martha, 1.2.840.1 [id number] Univers 09:30:00 09:30:00 Dana rL 67189.1.1 ity of 3.412.2.7 [place] .3.983401 MD Sainz8 [facility] 2023-04-20 2023-04-20 Follow-Up KLYER Thomas, 1.2.840.1 [id number] Univers 09:30:00 09:30:00 Dana Cali 98781.1.1 it y of 3.412.2.7 [place] .3.103356 MD Barajas [facility] 2023-04-20 2023-04-20 Outpatient GABI PITTS MDA MDA [id number] 07:22:25 07:36:28 Mitchell meza 2023-04-20 2023-04-20 Outpatient GABI PITTS MDA MDA [id number] 07:22:25 07:36:28 [id number] Mitchell meza 2023-04-20 2023-04-20 Travel 1.2.840.1 1.2.710.494 [id number] Univers 00:00:00 00:00:00 86194.1.1 350.1.13.41 ity of 3.412.2.[place].698 [place]3.604194 084.8 MD Barajas [facility] 2023-04-20 2023-04-20 Travel 1.2.840.1 1.2.911.141 [id number] [id number] Univers 00:00:00 00:00:00 21202.1.1 350.1.13.41 ity of 3.412.2.[place].698 [place]3.672509 08Shay.8 MD Barajas [facility] 2023-04-19 2023-04-19 Ancillary Martha, 1.2.840.1 [id number] Univers 13:00:00 15:30:00 [place]r 52992.1.1 i ty of 3.412.2.7 [place] .3.281830 MD Barajas [facility] 2023-04-19 2023-04-19 Ancillary KYLER Thomas, 1.2.840.1 [id number] Univers 13:00:00 15:30:00 Procedure Dana Cali 81972.1.1 ity of 3.412.2.7 [place] .3.311696 MD Barajas [facility] 2023-04-02 2023-04-02 Orders Vu, 1.2.840.1 [id number] Univers 00:00:00 00:00:00 Only Neteu 27373.1.1 ity of [place] 3.412.2.7 [place] .3.321195 MD Barajas [facility] 2023-04-02 2023-04-02 Orders Vu, 1.2.840.1 [id number] Univers 00:00:00 00:00:00 Only Neetu 74309.1.1 ity of [place] 3.412.2.7 [place] .3.717858 MD Barajas [facility] 2023-04-02 2023-04-02 Orders Vu, 1.2.840.1 [id number] Univers 00:00:00 00:00:00 Only Neetu 61125.1.1 ity of [place] 3.412.2.7 [place] .3.363788 MD Barajas [facility] 2023-04-02 2023-04-02 Orders Say, 1.2.840.1 [id number] Univers 00:00:00 00:00:00 Only Neetu 82494.1.1 ity of [place] 3.412.2.7 [place] .3.279387 MD Sainz8 [facility] 2023-03-15 2023-03-15 Follow-Up Jhonatan, 1.2.840.1 [id number] [id number] Univers 09:30:00 10:09:29 Nolberto Negrete 45865.1.1 it y of 3.412.2.7 [place] .3.727657 MD Sainz8 [facility] 2023-03-15 2023-03-15 Follow-Up KYLER Stevens, 1.2.840.1 [id number] 1107 [id number] Univers 09:30:00 10:09:29 Nolberto Negrete 33349.1.1 it y of 3.412.2.7 [place] .3.712115 MD Barajas [facility] 2023-03-15 2023-03-15 Travel 1.2.840.1 1.2.487.455 6133 [id number] Univers 00:00:00 00:00:00 21680.1.1 350.1.13.41 ity of 3.412.2.7 [place].3.698 [place]3.675519 084.8 MD Barajas [facility] 2023-03-15 2023-03-15 Travel 1.2.840.1 1.2.560.443 9767 [id number] Univers 00:00:00 00:00:00 68596.1.1 350.1.13.41 ity of 3.412.2.[place]7.3.698 [place] .3.509817 084.8 MD Barajas [facility] 2023-01-19 2023-01-19 Follow-Up Dana Rodriguez 1.2.840.1 [id number] Univers 10:00:00 11:17:50 Gabi Simon 84554.1.1 ity of 3.412.2.7 [place] .3.317483 MD Barajas [facility] 2023-01-19 2023-01-19 Follow-Up Dana Thomas 1.2.840.1 [id number] Univers 10:00:00 11:17:50 Gabi Simon 01590.1.1 ity of 3.412.2.7 [place] .3.395906 MD Barajas [facility] 2023-01-19 2023-01-19 Travel 1.2.840.1 1.2.678.178 0159 [id number] Univers 00:00:00 00:00:00 60198.1.1 350.1.13.41 ity of 3.412.2.7 [place]7.3.698 [place]3.138630 084.8 MD Sainz8 [facility] 2023-01-19 2023-01-19 Travel 1.2.840.1 1.2.114.652 8898 [id number] Univers 00:00:00 00:00:00 89637.1.1 350.1.13.41 ity of 3.412.2.7 [place]7.3.698 [place] .3.404213 084.8 MD Barajas [facility] 2023-01-18 2023-01-18 Outpatient KYLER THOMAS MDA [facility] [id number] 09:48:49 09:57:24 DANA meza 2022-12-19 2022-12-19 Outpatient FOG_Burke_R AOSM AO [id number] Symone 00:00:00 00:00:00 Darius [id number] [facility] 2022-12-19 2022-12-19 Nancy H AOSM [place] - Ortho Symone 00:00:00 00:00:00 Odalis Gurrol[place] - [place]: [address] FOG_Ofc dic [facility] wi[facility] [place], Medici n [address] [place] [id number] , Ph. [id number] 2022-12-13 2022-12-13 Outpatient FOG_Burke_R AOSM AOSM [id number] Symone 00:00:00 00:00:00 Darius [id number] [facility] 2022-12-13 2022-12-13 Outpatient FOG_Burke_R AOSM AOSM [id number] Symone 00:00:00 00:00:00 Darius [id number] [facility] 2022-12-13 2022-12-13 Outpatient FOG_Burke_R AOSM AOSM [id number] Symone 00:00:00 00:00:00 Darius [id number] [facility] 2022-12-12 2022-12-12 Outpatient FOG_Burke_R AOSM AOSM [id number] Symone 00:00:00 00:00:00 Darius [id number] [facility] 2022-12-08 2022-12-08 Telephone Jenae, 1.2.840.1 [id number] 1104 [id number] Univers 00:00:00 00:00:00 Kathleen Castaneda 18186.1.1 it y of 3.412.2.7 [place] .3Emeli483560 MD Barajas [facility] 2022-12-08 2022-12-08 Telephone Jenae, 1.2.840.1 [id number] [id number] Univers 00:00:00 00:00:00 Kathleen Castaneda 32312.1.1 it y of 3.412.2.7 [place] .3Emeli652925 MD Barajas [facility] 2022-11-30 2022-11-30 Procedure KYLER Stevens, 1.2.840.1 [id number] [id number] Univers 13:00:00 14:13:08 visit Nolberto Negrete 55832.1.1 it y of 3.412.2.7 [place] .3Emeli220153 MD Barajas [facility] 2022-11-30 2022-11-30 Procedure Jhonatan, 1.2.840.1 [id number] 1103 [id number] Univers 13:00:00 14:13:08 visit Nolberto Negrete 45983.1.1 it y of 3.412.2.7 [place] .3.111983 MD Barajas [facility] 2022-11-30 2022-11-30 Outpatient KYLER STEVENS MDA MDA [id number] 13:24:21 13:24:21 NOLBERTO Mitchell bria meza 2022-11-30 2022-11-30 Travel 1.2.840.1 1.2.835.582 0562 [id number] Univers 00:00:00 00:00:00 92994.1.1 350.1.13.41 ity of 3.412.2.7 [place]7.3.698 [place] .3.480200 084.8 MD Barajas [facility] 2022-11-30 2022-11-30 Travel 1.2.840.1 1.2.143.975 7464 [id number] Univers 00:00:00 00:00:00 73228.1.1 350.1.13.41 ity of 3.412.2.7 [place]7.3.698 [place] .3.201508 084.8 MD Barajas [facility] 2022-11-27 2022-11-27 Telephone Rigoberto, 1.2.840.1 [id number] 1103 [id number] Univers 00:00:00 00:00:00 Precious 70457.1.1 it y of 3.412.2.7 [place] .3.567677 MD Barajas [facility] 2022-11-27 2022-11-27 Telephone Rigoberto, 1.2.840.1 [id number] 1103 [id number] Univers 00:00:00 00:00:00 Precious 47480.1.1 it y of 3.412.2.7 [place] .3.123893 MD Barajas [facility] 2022-11-13 2022-11-13 Follow-Up KYLER Stevens 1.2.840.1 [id number] [id number] Univers 09:30:00 10:00:00 Nolberto Negrete 35115.1.1 it y of 3.412.2.7 [place] .3.538896 MD Baarjas [facility] 2022-11-13 2022-11-13 Follow-Up Jhonatan, 1.2.840.1 [id number] [id number] Univers 09:30:00 10:00:00 Nolberto Negrete 06255.1.1 it y of 3.412.2.7 [place] .3.405312 MD Barajas [facility] 2022-11-13 2022-11-13 Travel 1.2.840.1 1.2.174.354 2001 [id number] Univers 00:00:00 00:00:00 23052.1.1 350.1.13.41 ity of 3.412.2.7 2.[place]7.3.698 [place] .3.304509 084.8 MD Barajas [facility] 2022-11-13 2022-11-13 Travel 1.2.840.1 1.2.712.593 6312 [id number] Univers 00:00:00 00:00:00 87809.1.1 350.1.13.41 ity of 3.412.2.7 2.[place].7.3.698 [place] .3.357658 084.8 MD Barajas [facility] 2022-10-20 2022-10-20 Follow-Up KYLER Thomas, 1.2.840.1 [id number] [id number] Univers 11:00:00 12:07:35 Dana Cali 56639.1.1 it y of 3.412.2.7 [place] .3.245059 MD Barajas [facility] 2022-10-20 2022-10-20 Follow-Up Martha 1.2.840.1 [id number] Univers 11:00:00 12:07:35 Dana Lr 14758.1.1 ity of 3.412.2.7 [place] .3.204532 MD Barajas [facility] 2022-10-20 2022-10-20 Travel 1.2.840.1 1.2.407.555 3011 [id number] Univers 00:00:00 00:00:00 77091.1.1 350.1.13.41 ity of 3.412.2.7 2.2.7.3.698 [place] .3.285638 084.8 MD Barajas [facility] 2022-10-20 2022-10-20 Travel 1.2.840.1 1.2.355.786 5419 [id number] Univers 00:00:00 00:00:00 56471.1.1 350.1.13.41 ity of 3.412.2.7 [place]7.3.698 [place] .3.398053 084.8 MD Barajas [facility] 2022-10-19 2022-10-19 [facility], 1.2.840.1 [id number] 1098 [id number] Univers 07:57:06 23:59:00 Encounter Dana Cali 64914.1.1 ity of 3.412.2.7 [place] .3.422634 MD Barajas [facility] 2022-10-19 2022-10-19 [facility] 1.2.840.1 [id number] 1098 [id number] Univers 07:57:06 23:59:00 Encounter Dana Lr 49075.1.1 i ty of 3.412.2.7 [place] .3.720398 MD Barajas [facility] 2022-10-19 2022-10-19 [facility], 1.2.840.1 [id number] [id number] Univers 08:30:00 11:00:00 Procedure Dana Cali 02234.1.1 ity of 3.412.2.7 [place] .3.558358 MD Barajas [facility] 2022-10-19 2022-10-19 [facility], 1.2.840.1 [id number] 066 [id number] Univers 08:30:00 11:00:00 Procedure Dana Lr 67272.1.1 i ty of 3.412.2.7 [place] .3.872937 MD Barajas [facility] 2022-10-19 2022-10-19 Travel 1.2.840.1 1.2.210.405 4628 [id number] Univers 00:00:00 00:00:00 51990.1.1 350.1.13.41 ity of 3.412.2.7 2.2.7.3.698 [place] .3.760330 084.8 MD Barajas [facility] 2022-10-19 2022-10-19 Travel 1.2.840.1 1.2.130.442 7475 [id number] Univers 00:00:00 00:00:00 17343.1.1 350.1.13.41 ity of 3.412.2.7 2.2.7.3.698 [place] .3.523003 084.8 MD Barajas [facility] 2022-08-14 2022-08-14 Follow-Up KYLER Stevens, 1.2.840.1 [id number] 1096 [id number] Univers 09:00:00 09:30:00 Nolberto Negrete 28917.1.1 it y of 3.412.2.7 [place] .3.320538 MD Barajas [facility] 2022-08-14 2022-08-14 Follow-Up Jhonatan, 1.2.840.1 [id number] 1096 [id number] Univers 09:00:00 09:30:00 Nolberto Negrete 55319.1.1 it y of 3.412.2.7 [place] .3.284983 MD Barajas [facility] 2022-08-14 2022-08-14 Travel 1.2.840.1 1.2.875.267 3806 [id number] Univers 00:00:00 00:00:00 78483.1.1 350.1.13.41 ity of 3.412.2.7 2.2.7.3.698 [place] .3.434747 084.8 MD Barajas [facility] 2022-08-14 2022-08-14 Travel 1.2.840.1 1.2.318.898 6749 [id number] [facility] 00:00:00 00:00:00 29378.1.1 350.1.13.41 ity of 3.412.2.7 [place]7.3.698 [place] .3.483178 084.8 [facility]22-[facility]-21 2022-07-21 Office Dana Rodriguez 1.2.840.1 [id number] [facility] 12:00:00 12:24:13 Visit MachelleRhonda tapia 05799.1.1 ity of 3.412.2.7 [place] .3.098225 MD Barajas [facility] 2022-07-21 2022-07-21 Outpatient KYLER THOMAS MDA MDA [id number] 10:47:03 11:10:48 DANA meza 2022-07-21 2022-07-21 Outpatient KYLER THOMAS MDA MDA [id number] 10:12:51 10:21:44 DANA meza 2022-07-21 2022-07-21 Travel 1.2.840.1 1.2.819.501 6614 [id number] [facility] 00:00:00 00:00:00 07067.1.1 350.1.13.41 ity of 3.412.2.7 2.[place]7.3.698 [place] .3.359398 084.8 MD [facility]ajas [facility] 2022-07-20 2022-07-20 Ancillary EL 1.2.840.1 [id number] [facility] 08:00:00 10:30:00 Procedure 19629.1.1 it y of 3.412.2.7 [place] .3.510650 MD Barajas [facility] 2022-07-20 2022-07-20 Travel 1.2.840.1 1.2.889.257 7361 [id number] Univers 00:00:00 00:00:00 97551.1.1 350.1.13.41 ity of 3.412.2.7 2.2.7.3.698 [place] .3.381125 084.8 MD Barajas [facility] 2022-06-23 2022-06-23 Infusion Dana Rodriguez 1.2.840.1 1020 38977 [id number] Univers 14:15:00 16:55:04 Samy Chloe Osman 21310.1.1 ity of 3.412.2.7 [place] .3.613453 MD Barajas [facility] 2022-06-23 2022-06-23 Office Dana Rodriguez 1.2.840.1 [id number] 4665 [id number] Univers 13:30:00 15:08:09 Visit Gabi Simon 52393.1.1 ity of 3.412.2.7 [place] .3Emeli491442 MD Barajas [facility] 2022-06-23 2022-06-23 Outpatient KYLER THOMAS MDA [facility] [id number] 13:09:31 13:38:18 DANA meza 2022-06-23 2022-06-23 Travel 1.2.840.1 1.2.350.604 1721 [id number] Univers 00:00:00 00:00:00 30331.1.1 350.1.13.41 ity of 3.412.2.7 2.2.7.3.698 [place] .3.461077 084.8 MD Barajas [facility] 2022-06-20 2022-06-20 Melonie Carty 1.2.840.1 [id number] Univers 00:00:00 00:00:00 Only Rhonda 35848.1.1 ity of 3.412.2.7 [place] .3.198409 MD Barajas [facility] 2022-06-20 2022-06-20 Yuki Thomas2.840.1 [id number] [employer] 00:00:00 00:00:00 Only Dana Cali 35851.1.1 it y of 3.412.2.7 [place] .3.333489 MD [facility]ajas [facility] 2022-06-192022-06-19 Procedure KYLER Stevens, 1.2.840.1 [id number] Univers 09:00:00 10:03:04 visit Nolberto Negrete 87417.1.1 it y of 3.412.2.7 [place] .3.355788 MD [facility]ajas [facility] 2022-06-19 2022-06-19 Outpatient KYLER STEVENS [facility] [id number] 09:08:16 09:08:16 NOLBERTO Mitchelldali meza 2022-06-19 2022-06-19 Travel 1.2.840.1 1.2.736.021 [id number] Univers 00:00:00 00:00:00 04952.1.1 350.1.13.41 ity of 3.412.2.7 [place].3.698 [place] .3.530439 084.8 MD Sainz8 [facility] 2022-06-16 2022-06-16 Telephone Jenae, 1.2.840.1 [id number] [employer] 00:00:00 00:00:00 Kathleen Castaneda 52615.1.1 it y of 3.412.2.7 [place] .3.590355 MD Sainz8 [facility] 2022-05-31 2022-05-31 Telephone Jenae, 1.2.840.1 [id number] Univers 00:00:00 00:00:00 Kathleen Castaneda 57046.1.1 it y of 3.412.2.7 [place] .3.112521 MD [facility]ajas [facility] 2022-05-26 2022-05-26 Infusion Dana Rodriguez 1.2.840.1 [id number] Univers 12:30:00 14:58:20 Vcikie Graves 04902.1.1 ity of 3.412.2.7 [place] .3.524660 MD [facility]ajas [facility] 2022-05-26 2022-05-26 Office KYLER Thomas 1.2.840.1 [id number] Univers 11:00:00 11:37:32 Visit Dana Cali 86612.1.1 it y of 3.412.2.7 [place] .3.686011 MD [facility]ajas [facility] 2022-05-26 2022-05-26 Outpatient KYLER THOMAS [facility] MDA [id number] 09:18:40 09:51:40 DANA Mitchell bria meza 2022-05-26 2022-05-26 Outpatient KYLER THOMAS [facility] MDA [id number] 09:02:11 09:16:35 DANA Mitchell bria meza 2022-05-26 2022-05-26 Melonie Carty, 1.2.840.1 [id number] Univers 00:00:00 00:00:00 Only Rhonda 85214.1.1 ity of 3.412.2.7 [place] .3.253243 MD [facility]ajas [facility] 2022-05-26 2022-05-26 Melonie Thomas 1.2.840.1 [id number] Univers 00:00:00 00:00:00 Only Dana Cali 65235.1.1 it y of 3.412.2.7 [place] .3.752703 MD [facility]ajas [facility] 2022-05-26 2022-05-26 Travel 1.2.840.1 1.2.502.944 [id number] Univers 00:00:00 00:00:00 11306.1.1 350.1.13.41 ity of 3.412.2.7 2.[place].3.698 [place] .3.136697 084.8 MD [facility]ajas [facility] 2022-05-26 2022-05-26 Melonie Carty 1.2.840.1 [id number] Univers 00:00:00 00:00:00 Only Rhonda 99587.1.1 ity of 3.412.2.7 [place] .3.108428 MD [facility]ajas [facility] 2022-05-25 2022-05-25 Melonie Thomas 1.2.840.1 [id number] Univers 00:00:00 00:00:00 Only Dana Cali 40604.1.1 it y of 3.412.2.7 [place] .3.343787 MD [facility]ajas [facility] 2022-05-15 2022-05-15 Office KYLER Stevens, 1.2.840.1 [id number] [facility] [facility] 09:30:00 12:10:36 Visit Nolberto Negrete 07133.1.1 it y of 3.412.2.7 [place] .3.800658 MD Barajas [facility] 2022-05-15 2022-05-15 Travel 1.2.840.1 1.2.016.792 2380 [id number] Univers 00:00:00 00:00:00 56734.1.1 350.1.13.41 ity of 3.412.2.7 [place].3.698 [place] .3.807515 084.8 MD [facility]ajas [facility] 2022-04-26 2022-04-26 Infusion Dana Rodriguez 1.2.840.1 1020 [id number] [facility] 10:00:00 14:16:37 Estee Bailon 85787.1.1 ity of 3.412.2.7 [place] .3.378274 MD [facility]ajas [facility] 2022-04-26 2022-04-26 Office KYLER Thomas, 1.2.840.1 [id number] [facility] 08:30:00 09:06:53 Visit Dana Cail 73811.1.1 it y of 3.412.2.7 [place] .3.447212 MD [facility]ajas [facility] 2022-04-26 2022-04-26 Outpatient KYLER THOMAS MDA [facility] [id number] 07:19:11 07:45:00 DANA meza 2022-04-26 2022-04-26 Yuki Thomas2.840.1 [id number] [id number] [facility] 00:00:00 00:00:00 Only Dana Cali 75779.1.1 it y of 3.412.2.7 [place] .3.427251 MD [facility]ajas [facility] 2022-04-26 2022-04-26 Travel 1.2.840.1 1.2.035.221 4510 [id number] Univers 00:00:00 00:00:00 95983.1.1 350.1.13.41 ity of 3.412.2.7 [place].3.698 [place] .3.123605 084.8 MD [facility]ajas [facility] 2022-04-25 2022-04-25 Orders Martha, 1.2.840.1 [id number] [id number] Univers 00:00:00 00:00:00 Only Dana Cali 43273.1.1 it y of 3.412.2.7 [place] .3.394497 MD [facility]ajas [facility] 2022-04-20 2022-04-20 Ancillary Gabi Pitts 1.2.840.1 [id number] Univers 12:30:00 14:55:00 Procedure 45373.1.1 it y of 3.412.2.7 [place] .3.526123 MD [facility]ajas [facility] 2022-04-20 2022-04-20 Travel 1.2.840.1 1.2.833.874 3729 778261 Univers 00:00:00 00:00:00 63867.1.1 350.1.13.41 ity of 3.412.2.7 [place]7.3.698 [place] .3.814510 084.Radha [facility] 2022-04-11 2022-04-11 Gabi Fisher 1.2.840.1 [id number] 10 [id number] Univers 00:00:00 00:00:00 Only 58793.1.1 ity of 3.412.2.7 [place] .3.929373 MD [facility]ajas [facility] 2022-04-11 2022-04-11 Telephone Pedro, 1.2.840.1 [id number] 1095 [id number] Univers 00:00:00 00:00:00 December L 65322.1.1 ity of 3.412.2.7 [place] .3.421056 .8 [facility] 2022-04-07 2022-04-07 Telephone Pcp, [facility] 1.2.122.770 1955 1258 Univers 00:00:00 00:00:00 Patient HEALTH 350.1.13.10 it y of Does Not [place].2.[place] NASEEM?BLEA [id number] [address] MEDICAL OFFICE [facility] 2022-04-06 2022-04-06 Laboratory Only, Ang Db Test [facility] 1.2.8 40.114 [id number] Univers 15:30:00 15:36:43 [facility] 350.1.13.10 ity of [place] 4.2.7.2.686 [place] NASEEM?BLEA [id number] [address] OFFICE [facility] 2022-04-06 2022-04-06 Outpatient R KELSEY [facility] [id number] Univers 15:30:00 15:30:00 RANIA ity of [facility] 2022-04-06 2022-04-06 Orders Doctor MELVA 1.2.840.114 [id number] Univers 00:00:00 00:00:00 Only Unassigned, THAD 350.1.13.10 ity of [facility] 4.2.7.2.686 [place] as [id number] [address] 2022-03-17 2022-03-17 Infusion Dana Rodriguez 1.2.840.1 1020 28242 [id number] Univers 14:15:00 16:46:00 Fior Valverde 30436.1.1 ity of 3.412.2.7 [place] .3Emeli070473 MD [facility] 2022-03-17 2022-03-17 Office Dana Rodriguez 1.2.840.1 44311 4665 [id number] Univers 10:00:00 11:52:21 Visit Gabi Simon 38495.1.1 ity of 3.412.2.7 [place] .3.884337 MD [facility] 2022-03-17 2022-03-17 Outpatient KYLER THOMAS, [facility] MDA [id number] 08:00:09 11:33:23 DANA meza 2022-03-17 2022-03-17 Outpatient KYLER NEISHA, [facility] MDA [id number] 07:23:32 07:36:42 CHRISTIAN meza 2022-03-17 2022-03-17 Travel 1.2.840.1 1.2.404.571 7408 [id number] Univers 00:00:00 00:00:00 95197.1.1 350.1.13.41 ity of 3.412.2.7 [place]7.3.698 [place] .3.201813 084.8 MD Sainz8 [facility] 2022-03-15 2022-03-15 Melonie Thomas, 1.2.840.1 [id number] 91203 00584 Univers 00:00:00 00:00:00 Only Dana Cali 95990.1.1 it y of 3.412.2.7 [place] .3.692473 MD Sainz8 [facility] 2022-03-12 2022-03-12 Radha Nash, 1.2.840.1 [id number] 6451 Univers 00:00:00 00:00:00 Angel 53465.1.1 ity of 3.412.2.7 [place] .3.983340 MD Sainz8 [facility] 2022-03-09 2022-03-09 Melonie Driver, 1.2.840.1 [id number] 5310 Univers 00:00:00 00:00:00 Only Christian 86728.1.1 ity of 3.412.2.7 [place] .3.592148 MD Sainz8 [facility] 2022-03-01 2022-03-01 Radha Stevens, 1.2.840.1 [id number] 3265 Univers 00:00:00 00:00:00 Nolberto Negrete 16230.1.1 it y of 3.412.2.7 [place] .3.926278 MD [facility] 2022-02-17 2022-02-17 Infusion Dana Thomas 1.2.840.1 1020 06158 [id number] Univers 12:30:00 15:19:57 Vickie Graves 38033.1.1 ity of 3.412.2.7 [place] .3.195768 MD [facility] 2022-02-17 2022-02-17 Melonie Thomas 1.2.840.1 [id number] 98539 81528 Univers 00:00:00 00:00:00 Only Dana Cali 94545.1.1 it y of 3.412.2.7 [place] .3.926509 MD [facility] 2022-02-17 2022-02-17 Travel 1.2.840.1 1.2.109.992 0113 [id number] Univers 00:00:00 00:00:00 79028.1.1 350.1.13.41 ity of 3.412.2.7 [place]7.3.698 [place] .3.592380 084.8 MD [facility]ajas [facility] 2022-02-10 2022-02-10 Office Dana Thomas 1.2.840.1 73231 4665 [id number] Univers 11:00:00 11:30:00 Visit Gabi Simon 36128.1.1 ity of 3.412.2.7 [place] .3.414948 MD [facility] 2022-02-10 2022-02-10 Travel 1.2.840.1 1.2.372.367 9997 048212 Univers 00:00:00 00:00:00 42185.1.1 350.1.13.41 ity of 3.412.2.7 [place]7.3.698 [place] .3.705157 084.8 MD [facility]ajas [facility] 2022-02-10 2022-02-10 Melonie Driver 1.2.840.1 [id number] 8288 Univers 00:00:00 00:00:00 Only Christian 93387.1.1 ity of 3.412.2.7 [place] .3Emeli028741 MD Sainz8 [facility] 2022-02-09 2022-02-09 Office Jhonatan, 1.2.840.1 [id number] 5638 Univers 09:30:00 10:00:00 Visit Nolberto Negrete 98029.1.1 it y of 3.412.2.7 [place] .3Emeli013994 MD Sainz8 [facility] 2022-02-09 2022-02-09 Orders Martha, 1.2.840.1 [id number] 91328 Univers 00:00:00 00:00:00 Only Dana Cali 30023.1.1 it y of 3.412.2.7 [place] .3.765871 MD Sainz8 [facility] 2022-02-09 2022-02-09 Travel 1.2.840.1 1.2.673.616 6297 875113 Univers 00:00:00 00:00:00 72253.1.1 350.1.13.41 ity of 3.412.2.7 2.[place].7.3.698 [place] .3.251658 084.8 MD Sainz8 [facility] 2022-01-24 2022-01-24 Telephone Stevan, 1.2.840.1 [id number] 1092 [id number] Univers 00:00:00 00:00:00 Cherrie Burnett 63479.1.1 it y of 3.412.2.7 [place] .3.223448 MD [facility] 2022-01-13 2022-01-13 Infusion KYLER Thomas, 1.2.840.1 [id number] 1091 [id number] Univers 10:45:00 12:24:32 Dana Cali 95254.1.1 it y of 3.412.2.7 [place] .3Emeli524132 MD [facility] 2022-01-13 2022-01-13 Office KYLER Thomas, 1.2.840.1 [id number] 82467 Univers 08:00:00 09:23:12 Visit Dana Cali 38500.1.1 it y of 3.412.2.7 [place] .3.233436 MD [facility] 2022-01-13 2022-01-13 Outpatient KYLER THOMAS MDA MDA [id number] 06:51:34 07:14:03 DANA meza 2022-01-13 2022-01-13 Travel 1.2.840.1 1.2.276.703 6039 [id number] Univers 00:00:00 00:00:00 33733.1.1 350.1.13.41 ity of 3.412.2.7 [place]7.3.698 [place] .3.969450 084.8 MD [facility]ajas [facility] 2022-01-12 2022-01-12 Melonie Driver, 1.2.840.1 [id number] Univers 00:00:00 00:00:00 Only Christian 39617.1.1 ity of 3.412.2.7 [place] .3.600875 MD [facility] 2022-01-12 2022-01-12 Melonie Thomas, 1.2.840.1 [id number] 46256 50160 Univers 00:00:00 00:00:00 Only Dana Cali 58642.1.1 it y of 3.412.2.7 [place] .3.895250 MD [facility]ajas [facility] 2022-01-05 2022-01-05 Procedure KYLER Stevens, 1.2.840.1 [id number] 1091 [id number] [facility] 13:00:00 14:36:13 visit Nolberto Negrete 90748.1.1 it y of 3.412.2.7 [place] .3.791265 MD [facility]ajas [facility] 2022-01-05 2022-01-05 Outpatient KYLER STEVENS MDA MDA [id number] 13:24:08 13:24:08 NOLBERTO meza 2022-01-05 2022-01-05 Travel 1.2.840.1 1.2.161.080 5553 [id number] Univers 00:00:00 00:00:00 58736.1.1 350.1.13.41 ity of 3.412.2.7 [place]7.3.698 [place] .3.369447 084.8 MD [facility]ajas [facility] 2021-12-30 2021-12-30 Telemedici KYLER Thomas, 1.2.840.1 [id number] 10 [id number] [facility] 13:30:00 14:00:00 jay Cali 23117.1.1 it y of 3.412.2.7 [place] .3.457970 MD [facility] 2021-12-30 2021-12-30 Ancillary KYLER DRIVER 1.2.840.1 [id number] 1091 [id number] 09:01:22 09:01:22 Procedure CHRISTIAN 05761.1.1 An derso 3.412.2.7 n .3.714526 .8 2021-12-30 2021-12-30 Outpatient KYLER DRIVER, [facility] [id number] 08:09:31 08:09:31 CHRISTIAN meza 2021-12-30 2021-12-30 Ancillary KYLER DRIVER 1.2.840.1 [id number] 1091 [id number] 08:09:00 08:09:00 Procedure CHRISTIAN 16305.1.1 An derso 3.412.2.7 n .3.574358 .8 2021-12-30 2021-12-30 Travel 1.2.840.1 1.2.022.356 5864 [id number] [facility] 00:00:00 00:00:00 38056.1.1 350.1.13.41 ity of 3.412.2.7 [place]7.3.698 [place] .3.164327 084.8 MD [facility]ajas [facility] 2021-12-29 2021-12-29 Telephone Jenae 1.2.840.1 [id number] 1091 [id number] [facility] 00:00:00 00:00:00 Kathleen Tonya 73406.1.1 it y of 3.412.2.7 [place] .3.307025 MD .8 [facility] 2021-12-28 2021-12-28 Melonie Driver, 1.2.840.1 [id number] 3084 Univers 00:00:00 00:00:00 Only Christian 57885.1.1 ity of 3.412.2.7 [place] .3.156474 MD Sainz8 [facility] 2021-12-26 2021-12-26 Melonie Driver, 1.2.840.1 [id number] 7529 Univers 00:00:00 00:00:00 Only Christian 54505.1.1 ity of 3.412.2.7 [place] .3.978472 MD Sainz8 [facility] 2021-12-26 2021-12-26 Haydee Emanuel, 1.2.840.1 [id number] 1091 [id number] Univers 00:00:00 00:00:00 Kathleen Castaneda 21625.1.1 it y of 3.412.2.7 [place] .3.919515 MD Barajas [facility] 2021-12-26 2021-12-26 Melonie Stevens, 1.2.840.1 [id number] 033329 0797 Univers 00:00:00 00:00:00 Only Nolberto Negrete 85260.1.1 it y of 3.412.2.7 [place] .3.761615 MD Barajas [facility] 2021-12-23 2021-12-23 Office KYLER Stevens 1.2.840.1 [id number] 2864 Univers 15:00:00 16:00:00 Visit Nolberto Negrete 11829.1.1 it y of 3.412.2.7 [place] .3.677684 MD Barajas [facility] 2021-12-23 2021-12-23 Office KYLER Driver 1.2.840.1 [id number] 3275 Univers 13:30:00 14:00:00 Visit Christian 82038.1.1 ity of 3.412.2.7 [place] .3.596769 MD Barajas [facility] 2021-12-23 2021-12-23 Outpatient KYLER DRIVER, [facility] [id number] 11:48:07 12:10:51 CHRISTIAN Medrano o susana 2021-12-23 2021-12-23 Travel 1.2.840.1 1.2.862.960 3878 [id number] Univers 00:00:00 00:00:00 92859.1.1 350.1.13.41 ity of 3.412.2.7 [place]7.3.698 [place] .3.970306 084.8 .8 [facility] 2021-12-21 2021-12-21 Documentat Mirna, 1.2.840.1 [id number] 1 [id number] Univers 00:00:00 00:00:00 ion Majamesdeline 84653.1.1 i ty of M 3.412.2.7 [place] .3.199779 MD Barajas [facility] 2021-12-16 2021-12-16 Telemedici KYLER Driver, 1.2.840.1 [id number] 001 [id number] Univers 14:30:00 15:00:00 ne Christian 89863.1.1 ity of 3.412.2.7 [place] .3.724245 MD Sainz8 [facility] 2021-12-13 2021-12-13 [facility] KYLER Grant, 1.2.840.1 [id number] 88086 Univers 15:12:24 23:59:00 Liberty Richter 37541.1.1 i ty of 3.412.2.7 [place] .3.323995 MD Barajas [facility] 2021-12-13 2021-12-13 Follow-Up Angel Reeves 1.2.840.1 [id number] Univers 13:30:00 15:20:07 Neelam Grant 16076.1.1 ity of 3.412.2.7 [place] .3.792046 MD Barajas [facility] 2021-12-13 2021-12-13 Travel 1.2.840.1 1.2.283.166 8010 [id number] Univers 00:00:00 00:00:00 36122.1.1 350.1.13.41 ity of 3.412.2.7 2.[place]7.3.698 [place] .3.469319 084.8 MD Sainz8 [facility] 2021-12-12 2021-12-12 Telephone Neisha, 1.2.840.1 [id number] 1090 [id number] Univers 00:00:00 00:00:00 Christian 11499.1.1 ity of 3.412.2.7 [place] .3.315691 MD Barajas [facility] 2021-12-07 2021-12-07 Telemedici Dana Rodriguez 1.2.840.1 10 [id number] Univers 14:00:00 14:30:00 ne Christian Driver 37875.1.1 ity of 3.412.2.7 [place] .3.470352 MD [facility]ajas [facility] 2021-12-02 2021-12-02 Telephone Pedro, 1.2.840.1 [id number] 1090 [id number] Univers 00:00:00 00:00:00 December L 42881.1.1 ity of 3.412.2.7 [place] .3.140424 MD Sainz8 [facility] 2021-11-28 2021-11-28 [facility] [place] [facility], 1.2.840.1 [id number] 73173 Univers 07:30:00 23:59:00 Encounter Saamir 84515.1.1 it y of 3.412.2.7 [place] .3.865685 MD Barajas [facility] 2021-11-28 2021-11-28 [facility], 1.2.840.1 [id number] 1090 [id number] Univers 07:11:29 07:29:00 Encounter Star 69837.1.1 it y of 3.412.2.7 [place] .3.462665 MD Barajas [facility] 2021-11-28 2021-11-28 Travel 1.2.840.1 1.2.046.249 9599 [id number] Univers 00:00:00 00:00:00 99838.1.1 350.1.13.41 ity of 3.412.2.7 2.[place].7.3.698 [place] .3.843593 084.8 MD Barajas [facility] 2021-11-21 2021-11-21 [facility] KYLER Nash, 1.2.840.1 [id number] [id number] Univers 07:00:00 23:59:00 Encounter Angel 99241.1.1 it y of 3.412.2.7 [place] .3.039055 MD Barajas [facility] 2021-11-21 2021-11-21 [facility] Daniel, 1.2.840.1 [id number] 160 [id number] Univers 14:52:05 14:52:05 Event Brooke Margaret 50358.1.1 it y of 3.412.2.7 [place] .3.781897 MD [facility]ajas [facility] 2021-11-21 2021-11-21 Telephone Mirna, 1.2.840.1 [id number] 10 [id number] Univers 00:00:00 00:00:00 Maeadeline 01699.1.1 i ty of M 3.412.2.7 [place] .3.339739 MD [facility]ajas [facility] 2021-11-21 2021-11-21 Documentat Mirna, 1.2.840.1 [id number] 1 [id number] Univers 00:00:00 00:00:00 ion Maeadeline 83950.1.1 i ty of M 3.412.2.7 [place] .3.880831 MD [facility]ajas [facility] 2021-11-21 2021-11-21 [facility] Saad, 1.2.840.1 [id number] 4713 Univers 00:00:00 00:00:00 Only Saamir 03485.1.1 ity of 3.412.2.7 [place] .3.657339 MD [facility]ajas [facility] 2021-11-21 2021-11-21 Travel 1.2.840.1 1.2.936.527 0228 [id number] Univers 00:00:00 00:00:00 56052.1.1 350.1.13.41 ity of 3.412.2.7 2.2.7.3.698 [place] .3.130121 084.8 MD Barajas [facility] 2021-11-18 2021-11-18 [facility] KYLER Thomas, 1.2.840.1 [id number] 1089 [id number] Univers 11:00:00 23:59:00 Liberty Cali 69883.1.1 ity of 3.412.2.7 [place] .3.235979 MD Barajas [facility] 2021-11-18 2021-11-18 Consult Dana Rodriguez 1.2.840.1 [id number] [id number] Univers 15:15:00 16:00:00 Susan Baird 91433.1.1 ity of 3.412.2.7 [place] .3.764824 MD Barajas [facility] 2021-11-18 2021-11-18 [facility] KYLER Thomas, 1.2.840.1 [id number] [id number] Univers 14:00:00 15:24:25 Delma Cali 08355.1.1 ity of ts 3.412.2.7 [place] .3.955147 MD Barajas [facility] 2021-11-18 2021-11-18 Telemedici KYLER Driver, 1.2.840.1 [id number] Univers 15:00:00 15:15:00 jay Gonzales 26912.1.1 ity of 3.412.2.7 [place] .3.687035 MD Barajas [facility] 2021-11-18 2021-11-18 Clinical Dana Rodriguez 1.2.840.1 1010 51040 [id number] Univers 11:30:00 12:12:03 Support Rosalinda Topete 95827.1.1 ity of 3.412.2.7 [place] .3.379624 MD Barajas [facility] 2021-11-18 2021-11-18 Travel 1.2.840.1 1.2.488.946 8840 [id number] Univers 00:00:00 00:00:00 17800.1.1 350.1.13.41 ity of 3.412.2.7 [place]7.3.698 [place] .3.755371 084.8 MD Barajas [facility] 2021-11-16 2021-11-16 [facility], 1.2.840.1 [id number] 92170 74518 Univers 09:38:14 23:59:00 Encounter Lso 93461.1.1 it y of 3.412.2.7 [place] .3.532921 MD Barajas [facility] 2021-11-16 2021-11-16 Consult KYLER Nash, 1.2.840.1 [id number] 1955 Univers 09:40:00 10:51:59 Saamir 71980.1.1 ity of 3.412.2.7 [place] .3.706650 MD Barajas [facility] 2021-11-16 2021-11-16 Documentat Mirna, 1.2.840.1 [id number] 1 [id number] Univers 00:00:00 00:00:00 ion Maeadeline 16581.1.1 i ty of M 3.412.2.7 [place] .3.306072 MD Barajas [facility] 2021-11-16 2021-11-16 Melonie Nash, 1.2.840.1 [id number] 7391 Univers 00:00:00 00:00:00 Only Saamir 75263.1.1 ity of 3.412.2.7 [place] .3.126441 MD Barajas [facility] 2021-11-16 2021-11-16 Travel 1.2.840.1 1.2.901.563 8309 149005 Univers 00:00:00 00:00:00 28101.1.1 350.1.13.41 ity of 3.412.2.7 2.2.7.3.698 [place] .3.090082 084.8 .Radha [facility] 2021-11-04 2021-11-04 Telemedici KYLER Thomas, 1.2.840.1 [id number] 10 [id number] Univers 14:30:00 15:00:00 ne Dana Cali 20356.1.1 it y of 3.412.2.7 [place] .3.907053 MD Sainz8 [facility] 2021-11-04 2021-11-04 Ancillary KYLER DRIVER, 1.2.840.1 [id number] 1089 [id number] 12:28:30 12:28:30 Procedure CHRISTIAN 19747.1.1 An derso 3.412.2.7 n .3.378746 .8 2021-11-04 2021-11-04 Ancillary KYLER Driver, 1.2.840.1 [id number] 1089 [id number] Univers 09:15:00 10:15:00 Procedure Christian 66267.1.1 it y of 3.412.2.7 [place] .3.622263 MD Barajas [facility] 2021-11-04 2021-11-04 Prep for Martha, 1.2.840.1 [id number] 1089 [id number] Univers 00:00:00 00:00:00 Surgery Dana Cali 57117.1.1 it y of 3.412.2.7 [place] .3.208255 MD Barajas [facility] 2021-11-04 2021-11-04 Telephone Thomas, 1.2.840.1 [id number] Univers 00:00:00 00:00:00 Dana Cali 97497.1.1 it y of 3.412.2.7 [place] .3.359464 MD Barajas [facility] 2021-11-04 2021-11-04 Travel 1.2.840.1 1.2.292.359 5081 [id number] Univers 00:00:00 00:00:00 71725.1.1 350.1.13.41 ity of 3.412.2.7 2.2.7.3.698 [place] .3.614584 084.8 MD Barajas [facility] 2021-11-03 2021-11-03 Multidisci KYLER Thomas, 1.2.840.1 [id number] 10 [id number] Univers 16:00:00 16:11:25 plinary Dana Cali 73267.1.1 it y of Visit 3.412.2.7 [place] .3.268565 MD Sainz8 [facility] 2021-11-03 2021-11-03 Travel 1.2.840.1 1.2.596.085 1207 [id number] Univers 00:00:00 00:00:00 54654.1.1 350.1.13.41 ity of 3.412.2.7 2.2.7.3.698 [place] .3.225503 084.8 MD Sainz8 [facility] 2021-11-01 2021-11-01 Melonie Driver, 1.2.840.1 [id number] 2757 Univers 00:00:00 00:00:00 Only Christian 29479.1.1 ity of 3.412.2.7 [place] .3.809345 MD Barajas [facility] 2021-10-28 2021-10-28 Ancillary KYLER Thomas, 1.2.840.1 [id number] 696 [id number] Univers 20:25:00 20:30:00 Procedure Dana Cali 22992.1.1 ity of 3.412.2.7 [place] .3.827483 MD Sainz8 [facility] 2021-10-28 2021-10-28 Ancillary KYLER Thomas, 1.2.840.1 [id number] 166 [id number] Univers 20:05:00 20:10:00 Procedure Dana Cali 15080.1.1 ity of 3.412.2.7 [place] .3.224334 MD Sainz8 [facility] 2021-10-28 2021-10-28 Ancillary KYLER THOMAS, 1.2.840.1 [id number] 16:20:12 16:20:12 Procedure DANA 35624.1.1 An derso 3.412.2.7 n .3.413601 .8 2021-10-28 2021-10-28 Ancillary KYLER THOMAS, 1.2.840.1 [id number] 16:20:10 16:20:10 Procedure DANA 01214.1.1 An derso 3.412.2.7 n .3.925051 .8 2021-10-28 2021-10-28 Ancillary EL THOMAS, 1.2.840.1 [id number] 16:20:09 16:20:09 Procedure DANA 42256.1.1 An derso 3.412.2.7 n .3.732799 .8 2021-10-28 2021-10-28 Ancillary EL MARTHA, 1.2.840.1 [id number] 16:20:08 16:20:08 Procedure DANA 27479.1.1 An derso 3.412.2.7 n .3.574495 .8 2021-10-28 2021-10-28 Ancillary KYLER THOMAS, 1.2.840.1 [id number] 16:20:05 16:20:05 Procedure DANA 61512.1.1 An derso 3.412.2.7 n .3.908893 .8 2021-10-28 2021-10-28 Melonie Driver, 1.2.840.1 [id number] [employer] 00:00:00 00:00:00 Only Christian 07728.1.1 ity of 3.412.2.7 [place] .3.171357 MD Sainz8 [facility] 2021-10-28 2021-10-28 Melonie Thomas, 1.2.840.1 [id number] [employer] 00:00:00 00:00:00 Only Dana Cali 19896.1.1 it y of 3.412.2.7 [place] .3.313580 MD Barajas [facility] 2021-10-26 2021-10-26 [facility] Dar Rios 1.2.840 .1 [id number] [facility] 19:02:00 23:59:00 Encounter Dana Thomas 87668.1.1 ity of 3.412.2.7 [place] .3.697246 MD Barajas [facility] 2021-10-25 2021-10-25 [facility] Dana Rodriguez 1.2.840.1 1020 [id number] Univers 09:26:28 23:59:00 Encounter Yasmin Ferminadeline Osullivan 34155.1.1 ity of Jazzmine Xiao 3.412.2.7 [place] Herberth Mera3.859396 MD Sainz8 [facility] 2021-10-25 2021-10-25 Anesthesia Ede 1Emeli2.840.1 [id number] [employer] 11:51:00 13:07:00 Event Herberth Chang 97514.1.1 i ty of 3.412.2.7 [place] .3.109349 MD Barajas [facility] 2021-10-25 2021-10-25 Travel 1.2.840.1 1.2.672.757 [id number] [employer] 00:00:00 00:00:00 97025.1.1 350.1.13.41 ity of 3.412.2.7 2.2.7.3.698 [place] .3.080023 084.8 MD Barajas [facility] 2021-10-24 2021-10-24 Anesthesia Lukas 1.2.840.1 [id number] [employer] 23:59:59 23:59:59 Event Roxi 82941.1.1 ity of 3.412.2.7 [place] .3.438280 MD Barajas [facility] 2021-10-24 2021-10-24 [facility] Dana Rodriguez 1.2.840.1 1020 [id number] [employer] 10:13:24 23:59:00 Encounter Genaro Mcclelland 04856.1.1 ity of 3.412.2.7 [place] .3.959143 MD Barajas [facility] 2021-10-24 2021-10-24 Outpatient KYLER GONSALEZ, [facility] [id number] 09:55:40 10:10:08 LOS [facility] 2021-10-24 2021-10-24 Clinical Dana Rodriguez 1.2.840.1 1020 [id number] [facility] 09:45:00 09:54:27 Support Cindy Núñez 16388.1.1 ity of 3.412.2.7 [place] .3.610842 MD Barajas [facility] 2021-10-24 2021-10-24 CON Thomas, 1.2.840.1 [id number] [employer] 09:00:00 09:30:00 Delma Cali 88465.1.1 ity of ts 3.412.2.7 [place] .3.785114 MD Barajas [facility] 2021-10-24 2021-10-24 Genaro Collins 1.2.840.1 [id number] [employer] 00:00:00 00:00:00 Only T 63720.1.1 ity of 3.412.2.7 [place] .3.823205 MD Barajas [facility] 2021-10-24 2021-10-24 Travel 1.2.840.1 1.2.642.154 [id number] [facility] 00:00:00 00:00:00 99250.1.1 350.1.13.41 ity of 3.412.2.7 [place].3.698 [place] .3.143654 084.8 MD Barajas [facility] 2021-10-18 2021-10-18 Melonie Gonsalez, 1.2.840.1 [id number] Univers 00:00:00 00:00:00 Only Los 34551.1.1 ity of 3.412.2.7 [place] .3.506872 MD Barajas [facility] 2021-10-18 2021-10-18 Haydee Perez, 1.2.840.1 [id number] Univers 00:00:00 00:00:00 Sabra 98640.1.1 ity of 3.412.2.7 [place] .3.529260 .8 [facility] 2021-10-14 2021-10-14 Telemedici KYLER Thomas, 1.2.840.1 [id number] Univers 14:00:00 14:30:00 jay Cali 98485.1.1 it y of 3.412.2.7 [place] .3.954327 .8 [facility] 2021-10-13 2021-10-13 Ancillary KYLER DRIVER, 1.2.840.1 [id number] 07:10:42 07:10:42 Procedure CHRISTIAN 55253.1.1 An derso 3.412.2.7 n .3.863121 .8 2021-10-13 2021-10-13 Travel 1.2.840.1 1.2.575.107 [id number] Univers 00:00:00 00:00:00 20604.1.1 350.1.13.41 ity of 3.412.2.7 2.[place].7.3.698 [place] .3.714337 084.8 .8 [facility] 2021-10-03 2021-10-03 Haydee Driver, 1.2.840.1 [id number] Univers 00:00:00 00:00:00 Christian 47117.1.1 ity of 3.412.2.7 [place] .3.930753 .8 [facility] 2021-09-30 2021-09-30 Office KYLER Driver, 1.2.840.1 [id number] Univers 13:00:00 13:51:12 Visit Christian 96140.1.1 ity of 3.412.2.7 [place] .3.859895 MD Sainz8 [facility] 2021-09-30 2021-09-30 Outpatient KYLER DRIVER, [facility] [id number] 11:34:41 11:41:58 CHRISTIAN meza 2021-09-30 2021-09-30 Travel 1.2.840.1 1.2.752.991 [id number] [facility] 00:00:00 00:00:00 32445.1.1 350.1.13.41 ity of 3.412.2.7 2.[place].7.3.698 [place] .3.932551 084.8 MD Sainz8 [facility] 2021-03-23 2021-03-23 Outpatient KYLER THOMAS [facility] [id number] 11:10:26 11:10:26 DANA meza 2021-03-23 2021-03-23 Outpatient KYLER DRIVER [facility] [id number] 10:25:02 10:41:31 CHRISTIAN meza Results Test Description Test Time Test Comments Results Result Comments Source CA 125 2022-10-19 15:12:00 Test Item Value Reference Range Interpretation Comme nts CA 125 (test code = 9.5 U/mL <=38.0 Results greater than 11,500.0 U/mL may not 5169) be reliable due to matrix effect with extended diluti on as it exceeds the sediment remediation consultant's recommended limit. Caution should be exerc ised [...] methods are not interchangeable .Testing Performed at [facility] Net Software Developer [facility], [address], [address], [place] [address] [facility] MD [facility] [id number] 17:40:43 Test Item Value Reference Range Interpretation Comments POC Crea (test code = 1.0 mg/dL 0.6-1.3 Medica tions, 65881-6) especially hydr oxyurea or supplements, such as [...] sens itive biosensors on a silicon chip [facility] are configured to p erform specific tests. The microfabricated sensors measure analyte concent ration by an electroch emical assay. POC eGFR-AA (test code 66 See_Comment Myesha l eGFR >= 60 = 27166-0) mL/min/1.73 m2 The eGFR is calcula elena using the CKD-E PI equation. The e GFR declines with a ge. eGFR <60 mL/min /1.73 m2 is considere d as "decreased" Thi s equation should only be used for pat ients 18 and older. According to [facility] [employer] Kid[employer] Foundation's dney Disease Outcome Quality [...] Normal eG FR >= 60 code = 39893-0) mL/min/1.73 m2 The eGFR is calcula elena using the CKD-E PI equation. The e GFR declines with a ge. eGFR <60 mL/min /1.73 m2 is considere d as "decreased" Thi s equation should only be used for pat ients 18 and older. According to [facility] National Kidney Foundation's dney Disease Outcome Quality [...] code = 6672) Performing Lab (test [facility] code = 20620) [facility], [address] [place], [place] [address]; Point of Care L ab Director: Eli anders MD Lab Interpretation Abnormal (test code = 29242-7) [facility] [id number] 17:40:43 Test Item Value Reference Range Interpretation Comments POC Crea (test code = 1.0 mg/dL 0.6-1.3 Medica tions, 34196-2) especially hydr oxyurea or supplements, such as [...] See_Comment Myesha l eGFR >= 60 = 38688-7) mL/min/1.73 m2 The eGFR is calcula elena [...] Normal eG FR >= 60 code = 00262-2) mL/min/1.73 m2 The eGFR is calcula elena [...] [facility] code = 48378) [facility]-Diagno [facility]ic [facility]-[place], [address] [address] [facility], [place] [address]; Point of Care L ab Director: Eli anders MD Lab Interpretation Abnormal (test code = 82557-3) [facility] Oximetry [id number] 20:46:40 Test Item Value Reference Interpretation Comments Range POC O2 Saturation, 100.0 % 95.0-99.0 H Arterial (test code = 31085) POC Oxyhemoglobin, 98.8 % 94.0-98.0 H Arterial (test code = 17304) POC Hemoglobin, total 10.5 g/dL 12.0-16.0 L (test code = 33358) POC Carboxyhemoglobin 0.0-1.9 (test code = 46081) POC Methemoglobin 1.8 % 0.0-1.5 H Method ronak cription: (test code = 49889) The ABL8 0 FLEX CO-OX OSM analyzer is a portable, autom ated analyzer that measures oxygen saturation (sO2 ), concentration o f total hemoglobi n (ctHb), fractio n of oxygenated hemo globin in total hemogl obin (FO2Hb), fracti on of methemoglobin i n total hemoglobi n (FMetHb), and fraction of carboxyhemoglob in in total hemoglobi n (FCOHb) co-oxim etry parameters in [facility] blood. The anal yzer uses spectrophotomet ry to perform quantit ative measurement of the parameters list ed from a 65l sa mple. POC OX Draw Site (test Aorta code = 84898) Performing Lab (test MDA Main Main Ca mpus code = 75511) [facility]ical Lab, [address], [place] [address]; Ux Lead: Tanya Navarro MD Lab Interpretation Abnormal (test code = 99844-0) [facility] Oximetry [id number] 20:46:40 Test Item Value Reference Interpretation Comments Range POC O2 Saturation, 100.0 % 95.0-99.0 H Arterial (test code = 95145) POC Oxyhemoglobin, 98.8 % 94.0-98.0 H Arterial (test code = 82498) POC Hemoglobin, total 10.5 g/dL 12.0-16.0 L (test code = 18026) POC Carboxyhemoglobin 0.0-1.9 (test code = 95261) POC Methemoglobin 1.8 % 0.0-1.5 H Method ronak cription: (test code = 00054) The ABL8 0 FLEX CO-OX OSM analyzer is a portable, autom ated analyzer that measures oxygen saturation (sO2 ), concentration o f total hemoglobi n (ctHb), fractio n of oxygenated hemo globin in total hemogl obin (FO2Hb), fracti on of methemoglobin i n total hemoglobi n (FMetHb), and fraction of carboxyhemoglob in in total hemoglobi n (FCOHb) co-oxim etry parameters in [facility] blood. The anal yzer uses spectrophotomet ry to perform quantit ative measurement of the parameters list ed from a 65l sa mple. POC OX Draw Site (test Aorta code = 25259) Performing Lab (test MDA Main Main Ca mpus code = 95423) [facility] Cli nical Lab, [address], [place] [address]; Ux Lead: Tanya Navarro MD Lab Interpretation Abnormal (test code = 61106-7) [facility] CenterTMP Interpretation Antibody Screen [id number] 17:46:53 Test Item Value Reference Range Interpretation Comments TMP Auto Neg At the present ABSC Interp time, patient (test code = plasma shows no ____JESSI ROGERS 1929) evidence of RBC MD PATY, P hD - alloantibodies. [id number] d by: Mookie HERNÁNDEZ, PhD - [id number] D ate/Time: 11.28.2021 11:4 6 AM TOW MOTOR DRIVER Transcribed Eduar e/Time: 11.28.2021 11:4 6 AM CSTElectronical ly Signed By: JESSI NEWMAN MD, PhD - [id number] on 11.28.2021 1 1:46 AM [place] [facility] Interpret[facility] Antibody Screen [id number] 17:46:53 Test Item Value Reference Range Interpretation Comments TMP Auto Neg At the present ABSC Interp time, patient (test code = plasma shows no ____JESSI Chacon ORREA 7535) evidence of RBC MD PATY, P hD - alloantibodies. [id number] d by: Mookie HERNÁNDEZ, PhD - [id number] D ate/Time: 11.28.2021 11:4 6 AM TOW MOTOR DRIVER Transcribed Eduar e/Time: 11.28.2021 11:4 6 AM CSTElectronical ly Signed By: JESSI NEWMAN MD, PhD - [id number] on 11.28.2021 1 1:46 AM [place] [facility]-07 16:52:30 Test Item Value Reference Range Interpretation Comments ABORh. (test code = 882-1) O POS [place] [facility]h2022-03-07 16:52:30 Test Item Value Reference Range Interpretation Comments ABORh. (test code = 882-1) O POS [facility]anoClot Expiration [id number] 16:52:26 Test Item Value Reference Range Interpretation Comments T & S Expiration (test code = 12/01/2021 5318) [facility]ano[facility] Expiration [id number] 16:52:26 Test Item Value Reference Range Interpretation Comments T & S Expiration (test code = 12/01/2021 5318) [facility]anoAntibody [id number] 16:51:56 Test Item Value Reference Range Interpretation Comments ABSC. (test code = 890-4) Negative ABSC [facility]anoAntibody [id number] 16:51:56 Test Item Value Reference Range Interpretation Comments ABSC. (test code = 890-4) Negative ABSC [facility]anoPOC Oximetry [id number] 15:45:17 Test Item Value Reference Interpretation Comments Range POC O2 65.0 % Saturation,Venous (test code = 01156) POC Oxyhemoglobin, 63.5 % Venous (test code = 27388) POC Hemoglobin, total 10.6 g/dL 12.0-16.0 L (test code = 30303) POC Carboxyhemoglobin 0.5 % 0.0-1.9 (test code = 07537) POC Methemoglobin 1.9 % 0.0-1.5 H Method ronak cription: (test code = 31668) The ABL8 0 FLEX CO-OX OSM analyzer [...] Draw Site (test R atrium code = 34449) Performing Lab (test MDA Main Main Ca mpus code = 03819) [facility]ical [facility], [facility] [facility] [place] [place] [address]; Ux Lead: Tanya Navarro MD Lab Interpretation Abnormal (test code = 85157-3) [facility] Oximetry [id number] 15:45:17 Test Item Value Reference Interpretation Comments Range POC O2 65.0 % Saturation,Venous (test code = 10581) POC Oxyhemoglobin, 63.5 % Venous (test code = 30983) POC Hemoglobin, total 10.6 g/dL 12.0-16.0 L (test code = 48263) POC Carboxyhemoglobin 0.5 % 0.0-1.9 (test code = 77918) POC Methemoglobin 1.9 % 0.0-1.5 H Method ronak cription: (test code = 74914) The ABL8 0 FLEX CO-OX OSM analyzer [...] Draw Site (test R atrium code = 92882) Performing Lab (test [facility] code = 44161) [facility] Cli nical Lab, [address] [place] [address]; Ux Lead: Tanya Navarro MD Lab Interpretation Abnormal (test code = 39051-0) [facility] Glucose [id number] 14:58:52 Test Item Value Reference Interpretation Comments Range POC Glucose (test 102 mg/dL 70-99 H RN Notifie dCapillary code = 77550-9) blood sample s, e.g. obtained by fingerstick, [...] Capillary code = 9554) Performing Lab (test [facility] code = 39277) [facility] MD Jazmin ackerman Clinical Lab, [address] [place] [address]; Ux Lead: Tanya Navarro MD Lab Interpretation Abnormal (test code = 54883-9) [facility] EdgarPO Glucose [id number] 14:58:52 Test Item Value Reference Interpretation Comments Range POC Glucose (test 102 mg/dL 70-99 H RN Notifie dCapillary code = 49585-6) blood sample s, e.g. obtained by fingerstick, [...] Lab (test MDA Main Main Ca mpus [place] code = 73744) [facility] MD Jazmin ackerman Clinical Lab, [address] [place] [address], [place], [place] [address]; Ux Lead: Tanya Navarro MD Lab Interpretation Abnormal (test code = 13476-4) [facility]OVID-19 (SARS-CoV-2) PCR- Asymptomatic [id number] 04:33:25 Test Item Value Reference Range Interpretation Comments COVID19 (SARS Not Detected Not Detected CoV-2) Result (test code = ____[place] a 67392-8) qualitative reverse-transcr iptase polymerase sukhdeep n reaction (RT-PC R) developed for t he [employer] DERECK 680 0 system and inte nded [...] patients provid ed by the manufacture r ([employer]) c an be reviewed at:https://www. fda.go v/media/990696/ downlo ad. A fact shee t for Health Care pro viders is provided by the sediment remediation consultant (Haylie dwyer [employer]) and can be reviewed at: https://www.fda .gov/m edia/811137/alba nload Results must be interpreted wit hin [...] were verified by the Microbiology Laboratory at [facility], CLIA Accreditation # : [id number] and CAP Accreditation # : [id number]. COVID19 SARS NUTRITION THERAPIST Swab Source (test code = 95169) COVID19 SARS Pre-OR Procedure Indication (test code = 91922) [facility] EdgarCOVID-19 (SARS-CoV-2) PCR- Asymptomatic [id number] 04:33:25 Test Item Value Reference Range Interpretation Comments COVID19 (SARS Not Detected Not Detected CoV-2) Result (test code = ____[place] i s a 87752-4) qualitative reverse-transcr iptase polymerase sukhdeep n reaction [...] patients provid ed by the manufacture r ([employer]) c an be reviewed at:https://www. fda.go v/media/818702/ downlo ad. A fact shee t for Health Care pro viders is provided by the sediment remediation consultant ([employer]) and can be reviewed at: https://www.fda .gov/m edia/090015/alba nload Results must be interpreted wit hin [...] were verified by the Microbiology Laboratory at [facility], CLIA Accreditation # : [id number] and CAP Accreditation # : [id number]. COVID19 SARS NUTRITION THERAPIST Swab Source (test code = 78447) COVID19 SARS Pre-OR Procedure Indication (test code = 00962) [place] [facility]ano[facility]SH2022-[facility] 20:51:59 Test Item Value Reference Range Interpretation Comments TSH (test code = 2.77 See_Comment [Automated message] The 00587-1) system which ge nerated this result transmit elena reference range : 0.27 - 4.20 mcunit/mL. The reference range was not used to interpr et this result as myesha l/abnormal. [facility]anoTSH2022-02-25 20:51:59 Test Item Value Reference Range Interpretation Comments TSH (test code = 2.77 See_Comment [Automated message] The 07660-9) system which ge nerated this result transmit elena reference range : 0.27 - 4.20 mcunit/mL. The reference range was not used to interpr et this result as myesha l/abnormal. [facility]anoFree [id number] 20:51:58 Test Item Value Reference Range Interpretation Comments T4 Free (test code = 3024-7) 1.57 ng/dL 0.93-1.70 [facility]anoFree [id number] 20:51:58 Test Item Value Reference Range Interpretation Comments T4 Free (test code = 3024-7) 1.57 ng/dL 0.93-1.70 [facility] Add-On Test 2021-11-18 20:06:39 Test Item Value Reference Range Interpretation Comments Ordered (test code = 6568) Test Added Test Needed (test code = 7604) TSH, Free T4 [facility] Add-On Test 2021-11-18 20:06:39 Test Item Value Reference Range Interpretation Comments Ordered (test code = 6568) Test Added Test Needed (test code = 7604) TSH, Free T4 [facility]anoUrinalysis with Microscopic 2021-11-18 18:41:22 Test Item Value Reference Interpretation Comments Range UA WBC (test code = 3 See_Comment H [Automa elena 47573-9) message] The system which generated this result transmitted reference range : 0 - 2 /HPF. The reference range was not used to interpret this result as normal/abnormal . UA RBC (test code = See_Comment [Automa elena 57870-3) message] The system which generated this result transmitted reference range : 0 - 2 /HPF. The reference range was not used to interpret this result as normal/abnormal . UA Mucous (test code NOT SEEN Not Seen-Trace = 08252-6) /HPF UA Bacteria (test NOT SEEN NOT SEEN /HPF code = 50535-2) UA Squam Epi (test OCC None-Occasiona code = 79473-2) l /HPF UA Trans Epi (test OCC NOT SEEN /HPF A code = 85387-0) CHRISTOPHER (test code = Some reporting CHRISTOPHER) parameters within the Urinalysis test have changed due to the implementation of new instrumentation in the [facility], allowing greater sensitivity of measurement. Urinalysis results reported by the [facility] using existing instrumentation, as well as Urinalysis testing performed manually or by backup methodology at the [facility] will remain relatively unchanged. New reporting parameters and units will now be reported for all campuses. Lab Interpretation Abnormal (test code = 61506-0) [facility] EdgarUrinalysis with Microscopic 2021-11-18 18:41:22 Test Item Value Reference Interpretation Comments Range UA WBC (test code = 3 See_Comment H [Automa elena 51885-4) message] The system which generated this result transmitted reference range : 0 - 2 /HPF. The reference range was not used to interpret this result as normal/abnormal . UA RBC (test code = See_Comment [Automa elena 52613-4) message] The system which generated this result transmitted reference range : 0 - 2 /HPF. The reference range was not used to interpret this result as normal/abnormal . UA Mucous (test code NOT SEEN Not Seen-Trace = 40294-7) /HPF UA Bacteria (test NOT SEEN NOT SEEN /HPF code = 46094-3) UA Squam Epi (test OCC None-Occasiona code = 65455-0) l /HPF UA Trans Epi (test OCC NOT SEEN /HPF A code = 33424-1) CHRISTOPHER (test code = Some reporting CHRISTOPHER) parameters within the Urinalysis test have changed due to the implementation of new instrumentation in the [facility], allowing greater sensitivity of measurement. Urinalysis results reported by the [facility] using existing instrumentation, as well as Urinalysis testing performed manually or by backup methodology at the [facility] will remain relatively unchanged. New reporting parameters and units will now be reported for all campuses. Lab Interpretation Abnormal (test code = 07198-6) [place] [facility]anoaPTT2022-02-25 18:18:01 Test Item Value Reference Range Interpretation Comments aPTT (test 35.9 See_Comment [Automated mes alexis] code = The system [employer] 62503-2) generated this result transmitted ref erence range: 24.7 - 3 6.8 second(s). The reference range was not used to int erpret this result as normal/abnormal . CHRISTOPHER (test code This lab cannot be = CHRISTOPHER) scheduled at the following locations due to collection/proccess ing restrictions: [facility] [address] LAB CTR and yourdelivery LAB CTR. [place] [facility]anoaPTT2022-02-25 18:18:01 Test Item Value Reference Range Interpretation Comments aPTT (test 35.9 See_Comment [Automated mes alexis] code = The system [employer] 18187-5) generated this result transmitted ref erence range: 24.7 - 3 6.8 second(s). The reference range was not used to int erpret this result as normal/abnormal . CHRISTOPHER (test code This lab cannot be = CHRISTOPHER) scheduled at the following locations due to collection/proccess ing restrictions: [facility] [address] LAB CTR and yourdelivery LAB CTR. [facility] PlanoProthrombin Time with [id number] 18:18:00 Test Item Value Reference Range Interpretation [...] following locations due to collection/procc essing restrictions: [facility] and [facility]. Lab Interpretation Abnormal (test code = 47901-8) [facility]anoProthrombin Time with [id number] 18:18:00 Test Item Value Reference Range Interpretation Comments PT (test code = 14.2 See_Comment H [Automated 5882-2) message] The system which generated this result transmitted reference range : 11.5 - 13.9 second(s). The reference range was not used to interpret this result as normal/abnormal . INR (test code = 1.17 0.90-1.10 H 6301-6) CHRISTOPHER (test code = CHRISTOPHER) This lab cannot be scheduled at the following locations due to collection/procc essing restrictions: [facility] DIAG LAB CTR and Obs[facility]I DIAG LAB CTR. Lab Interpretation Abnormal (test code = 63709-0) [facility]anoHemoglobin [id number] 18:14:44 Test Item Value Reference Range Interpretation Comments A1C (test code = 5.6 % 4.3-5.6 HbA1c value s >=6.5% are 4548-4) diagnostic of d iabetes mellitus.Diagno sis should be confirmed by repeat testing.Therape utic Action suggested: >8.0 % HbA1c; Goal oftherapy: <7.0% HbA1c [facility]anoHemoglobin [id number] 18:14:44 Test Item Value Reference Range Interpretation Comments A1C (test code = 5.6 % 4.3-5.6 HbA1c value s >=6.5% are 4548-4) diagnostic of d iabetes mellitus.Diagno sis should be confirmed by repeat testing.Therape utic Action suggested: >8.0 % HbA1c; Goal oftherapy: <7.0% HbA1c [facility]anoUrinalysis w/Microscopic if [id number] 18:07:36 Test Item Value Reference Range Interpretation Comments UA Color (test code = 42859-7) Yellow Straw-Yellow UA Appear (test code = [...] A Lab Interpretation (test code = Abnormal 89285-3) [facility]ano[facility]inalysis w/Microscopic if [id number] 18:07:36 Test Item Value Reference Range Interpretation Comments UA Color (test code = 43987-6) Yellow Straw-Yellow UA Appear (test code = [...] A Lab Interpretation (test code = Abnormal 58789-4) [facility]ano[facility] Breast Complete - Bilateral 2021-11-04 19:45:45 Test Item Value Reference Range Interpretation Comments Radiology Study observation (narrative) (test code = 36158-9) IMP (test code = No mammographic evidence [...] Evaluation Lab Interpretation Abnormal (test code = 48624-7) [facility] Chest for Breast Ultrasound (Add-on Only)2021-11-04 19:45:45 Test Item Value Reference Range Interpretation Comments Radiology Study observation (narrative) (test code = 73938-4) IMP (test code = No mammographic evidence [...] Evaluation Lab Interpretation Abnormal (test code = 03287-7) [facility] EdgarCytology Image-Guided FNA [id number] 00:43:00 Test Item Value Reference Range Interpretation Comments Gross Description (test c1furLNsBIQkdCXFZTdb code = 8027810243) YGsnbvOzQSMjrKEtP1Fc cvjzVReiTG7kRH0qvYvb cHObeRLiEB2NVVCgOoXu XHBhcGVydzEyMjQwXHBh bYAvzDI9EIJsAF9kjuxz HGoqVRtaHWXiiaQ4AFGm xBUkE0MdABEdOW3glpiq RSQ0TWrfjA1inaSMJety Eh3daTLynTedNyDqAjDs YXJzZXQwXGZuaWwgQXJp PRv6xV1RFlkjV07nh3D9 Ftc6XTYcCDKvH5HoKF5a MXSmsWFpG12KOtyaFIK3 ACELIstiOCVkMH8Qk3kz JSPciBWfZIJ0WYjvkUPp FTXlAUNsQZn2AVYaFIjs qVYcKA9ulLqiExarxBem c8ZkgKQeXSglLRXiUIAo XClvVDSxZD1RTtFyBZRu CHDyVVFlVJi7VUa1MK5I YjZjATStOSPyWic7VMAd VRs6UZyoFD9SNFs0AsD6 ARP5COQ2ALS2QGArZDXb MiBcXGYgQXJpYWwgXFxm cyAxMCBcXGZiIFxcZmwg UFcgW17dzHlinL9lFyjg raEaRXI8AFPnmoIBAbcn bGFpblxlcGljTmVzdERv YzEgDQpcbHRycGFyXGxp bjBccmluMCANClxsdHJj aFxjZjFcZnMyMCBTcGVj gG3kbsYcvSOuZ4BqXAE7 XHBhciANCjMgRGlmZiBR dWlrOyAzIFBhcCBTdGFp syFKkNetWWCicJLnFT5M DMMitAwaDNxdyl84TKF3 p4qxsKDmHTcaZuhdsANd rbA9NKySTPHRGKzANwXa VA5vHZxVV0FPYPqPInuz BSB9ZGztmGQ5k5mxtXYs e8q1XJouHUY3zIInrIlr cDs4ZGOkv7VrtFNgyIMe bAMgzHH1APFqPGmdc7zm AAYeYHomu8WjDNaHVEHO GH1NRQ3cvFS0A5fSIAOK W4zHvYW3r9bcdFReq8l0 DXjhXLB8yZRqj17scEhw WecbyFF2COvqEcfckU5y dCBIWVBFUkxJTksgbmFt BK8DIGiIYR7ZrBR1d4df qXYqo3s6WPonQBB2sPwl jGNfszeofREszFzlzg49 OFE7KVJuXStxgdKqJTEk yKUoUPnkLpploGZ4BXst UsnyeW7kkBWNAWAUVcgU ZyqbfoMoZG9LWKHLWQ9K dDU6SyEcuFT8OJ79YHHb LQEvePPgYSvuG366BUEa TGzsBZa5ueIbIQVhYHfy vgPjQLMlwdGGUC4BRTYw ciANClxjZjAgMSBDZWxs VHAnj3ChRRUcxeREZuLn dGUvVGltZSBQbGFjZWQg sE0iRg0clQPrdK59KCgb qo38FKH2w9vxxVXxLZnz XztolMXjptD6QZwLVXVO TJdSMiRuDP2vUZbYKlsW UPeZPbf4UCZ6HxkmqJIC PRDPPWAUWZvtfZb9VAm7 fXtcZmxkcnNsdCBcJzFD wF2uMd3hUA9yYdccCkzd dER2SOwqDapnoQ4hvFBD IGDHJulCQjefdpCiLV3C VQ0RBT5EvBIaHNjauBR8 GK7UNGyBPIQMuYH0dEwg uVp9g6jcbUYlm4g2RMck CRN2lMovuNNbsztgsCXm aFxmczIwICBccHJvdGVj rNqlXgvduLC4SRnnSwgx hM5vpSBTIUURBnxULuyz qhOsJN7LEW4GFeXSTC75 XJB1KRbWX7a6IPx0lTK3 vZ74CGSiQAWstYXkOBwq V768WRwwTRQTADiaBwzg yMY7OEmaWgogjL4eeDQT NLMWZjeKMqnleiQeQF8P YH4CPO0IaGvyjSR7Uz0O pCY2mRpawOd1g6nknSIx e5n2RWulLND9nPfsqNJn blxsdHJjaFxjZjFcZnMy NGkxDMXdYThdmODrWC4I L5h4XLwsYW9gLSMfZLDl qmPIOptcvZXnmTI1CIRb i1Ger0DoDE54OHXfpsFr cAMxkP8oplDwNMQynEAt lUP1JWObbIAwQMGdjFZi jSSpzUkxXvymvVR6IYnd IvippT0nvOSIHBBXTquU AqfhslSdRQ0LYGXXObDX PR44CiS7OoJ9VCz9fQga TvaxetJmdBZvPpVHjB02 OTexSihucCJ3NDmnLrnx lB7rlOPHXMGZUiiBHezf vzEoCU7IKNFJSS4CiVO1 ZiV7mEP8LQ14ZZHaWQGp tARkEYkwR002HCZbFWdr FNq5xnVhEEXyHHesxiXy RMRrlWULuk1mO6CfQZCn CIqiskDRGZSFRGtIA9He XKYRWUAKEENqLpIRMS4z MdO5GdI0NB10AeimKyR5 TbU8tGX8ZMYKOFGUWYnH J6AqMXGKVAMDPWSsFY3P HJzUTHYISQGWW30IZJED IIDND9VWL5vUXGXzx0If f55tyCdFMZXUDIQAX17U HOMFGNEGW9MGVPUBYHQF LQpQWYJLNo2YYPRKPJMC NI2OOBmYCdMaWHlepUIr OOvtNGA3ODg6DKk0lLVe a3PpnUR7GpZ8LcGwvCWU FBJUNJlZJQQCCm6YIPJF TKSRSL0LQzHxN2QFLR7F Jt5GMCXEMANSXD3TQFnF VfSgF4KWPW9TDe8GAVLD MPSFQU9POiFvOUWYV4XQ LePAK8gcEXODACFZEHMj OmWLOT9jTDWUWY7BBJEN JYKPC81HIOQWOVTHK3XJ AJ2GWEFdrUMGMEA9YC5e QZo1BFezFJJcY8QlR1Tp beNrjUOwJRJenhEvo2ck EYZ8RMJwePDvpAKgBnSk JfrgALV7SQMyPYtyRL3H XMJwRPO4YDeraO80wDYf RG2UKCToLOcqGFOzKCWx niJ9BFEzrNLkNCO1ZY5n xAjhxRYpklfrxfX6ZK7N fQ== Immediate Assessment Adequate (test code = 9837) cellularity, favor malignant Major Classification MALIGNANT A (test code = 9839) Diagnosis (test code = e5qzdJIcKYHkvIM1GlEp 34) JXYvh8idl4HfmPPcrDLe ATvmdJQrstOuab06fGJ8 vK79TC4mHJOnAcT1PBKp ynV0Gza6KCWfALTfiDQh D446f7jbm0jlqkIsoTS0 HFKgZJWsZ4VkGS1qCJMo rKMcA14suVKmOTO7ZKPc FETaeTVvDNPfGUR5CEYr ySSyJ3xnRZOvXJ1fqjre VYxdCCacNXXnlRE9ZPEc cXAkG3HdYPOgXScjHIFl jqz3CzLkCt9njXAdmMov MDheD7cepY1oCiW1DApm S4mwjE4qMRg7SZojQTBl wSS0brY8PGGhhFFjG7Rb pS5hEAEvXC3jwsx2a1sr VIB3WTbmAEUfAkX4rpF9 NDBccGFyZFxwbGFpblxm yaZvSHEuCEWCDhDLs9F8 FDBvl5Z1SZzyaBJxeXJu TYc4xAFrBEMrhyIqskEg CYfzHNCrqZtfYULan449 NLNfpke3SNZypGXuWRja GgByPQkCG9lwK1YQTKSa P1FXN0eYN84VABZPKiSJ U4KRTvEcR4cYOZKOGFTB VB0MU6UtFMnJTX5NGRZU SnWNQVnYYQWFEP7xWVWU LYOIQCDxi9DbSFKaoR2a bnQpXHBhcn0= Comment (test code = q3znhUUwTANhuGD1IzWl 9835) QEGym2ela6CfiZEtjVGl MQyfcFUgdhEygr70mXH4 eC92WL9kROSwNnI4GOYb caQ3Wnc4BDJbVBWfuKPc Z990c3xpd2ejvmQjtFO1 yAoeCNTcbklxOlO0LHqu DBVmwgfwTJk0PNhiPBTu uUD3HCQxsAAmO8BrMLYg DN9oavi2YHH4YZazWMGr SeP0GQApyZPlCGNloXao GQlwo552KCF2IdXbLNXe rjLvsQfcxS5lKrLdHGPK qY97tc9unUZqtzUpbVZp Wf9koUXwLR0oYTXjDDLp TEhqCBOcz5SvLIVmD9Nq n25oFPUgo0rwhTvpmNN5 dZNzqJDkw3QgD8MiiWYm MARmBDXyq0i5gFDiDZAs xwXEVQnuNNnnR8TuBFSv Xt4vDBtfQLEiGUWyETFt AzW8f5UuRZQtONKNQtAm CvXgAO6mFPU1eG9uGXIj aLogeiYgdUUuXW4pBFfo j3YqSdnnLUztD8VwQJZj KGcfBFhnWQQjxerws4u0 iMQ5lTVfwMU8lHObiPms ZSvfm5ktVZlvi2Usthir z9Iza5Vtm4DnVPJlznOo aw4xBV1whOXmTAWhAZGb POlsODGql4ZpRUJzZDHj ssO8fS7yYSqbyyRay649 zyqgaSPkzeakcE81KRDm lhW6uTSnFAJyjeVsFTku D06vl9coAtZnbWVwLHAx O29eI6BzkgQguOEhb4Be TZ1gGDNhFJIlnO2uo2wt DMLaCn8tEFGpDAHjjnMw eMSkPQW8IKslHPDzSP3r cGFyfQ== Retained/Biomarker e6cwmZCjFPVzrZG2InCx Testing (test code = AAGcx9kfr2RmdSKwkUHj 9851) WWnexRNjxwLhta47tVO7 uJ11BR6dSDUhHhV0GVMa dlG9Ggn7XHMjEPGjfSVj V242l1ddd5lakgLcvEW1 eFbsMYTmsnjkQxU9GVje FPSyiqumUSq8QTxgYMNy aZH0IWTmuMCiK9NeVPAq JF1gkus8VVM4BAkePDAq ZoD3OOSsgFLyMXEfeGzo GBncs866CDH6AoPeMWHw ddZowIrylR2oLqEvVPBX Rlm1YgrsGiPRQBP4ZNSs hCIeIT3INMKQMjp5DW9i HIRpjQQmRR3HGKAJCNB5 R1JahLHcHT7JOZRCDSig V0efYBOpHPHPWBUSX7m2 MVNccGFyfQ== Informational Points m8psiUZyWJQmuMYhWwMp (test code = 9836) RBJrOKUir6oxJCPnhHWz ZzEwMzNcZnRuYmpcdWMx USIgAsEoo6uoo726uLNp j4hfGCLhCnC2xHTaBQVr fXMkM840BLGaAAvgw2mh h7UbTURggTLps3N9GTUD ROdaTTRCMOp1e1svMdZi BaM4gEXhHGuwH6aftoLz hEJpJFJySYi7tS61JWPg vP8dxICyVIoyscVqAkV0 DIvqXWIpDxD8SGXftNLu EYFdP2teLNOjRFzeUVPi ECizjUYaNPX3mUsyj3T7 bGVzaGVldHtcZjBcZnMy PdOIy0DjBHj9eUtuC3Gi ZGLiXnX8sJMnJHJfDYzh SKVyJITpztU0rH79LNuh heP8hVRzu8Nhn71aj919 zK6jxUHpDEA5JPEiRWHh iURjILReZJJ2NYNnfSZx D7dwUATuTL8uuyryIDvy FNtuWOHwoQO2YCWlyMUb H2JfJSOtCEcfJEDdhmu7 KtTgBc0faHTrqZwbXBoc f6slj0pyvWRtEmg6KZIx RnWuVvevHJswl5Vnc5fy IRNfmk8vPCU6yNFsfDpe t2L0wBFkRXZqhRDgfnIz VVCrlm12qYNlwDRdePCb zi8sldTrmTCjqEPnIKJ8 cHNocnRuXGZldDRcYWVu QCKiW2yaEhVjuhDrT9rt I0IfNPQqSEJiIPVkIoWb xdVeu7Rex2NrzSPztXp9 b8khQAFmPNGknZgrn9ji STN3RILkR5K2yDRrp6ew VTigWUOipHW9zkY7STKj nLHvA6VadW1eMITxGV7y dpo2p4hgANL6RUquBBYe IrQ4oxB7VEGcaXMeANBi aQaaKWxog441JGI7NoYi DMEjw4QwM7CkwBcpY95u mVjtX59mIXBgmOwbcS9v cIlgvE6nLsLgFdSiEDga bFxwbGFpblxmMVxmczE4 HHfhjiyvQALyZEfqR3gm FsMaHLLzpJxwJHymp5Jo UBZbDUItDNunjVFSl94g UYKha0SvSAGilL0cuEVy OXoxujBctTR4IBsicwXa YvJrbwCbOQFcnU7wQJVg SK7lWYFjjcQvlq3ylcGp PRLrGHZjF2YseyzwnOit fmDiPRIvrx8vkzMaSXI4 GTEXCY1FOKCfJQGxg50b WCJhvZnlsG7chFLnwoAy LPAfp4XvpI8gkCWPOGFt A3hvUN0rZXhly3DuzVYe pRLdmUE8HXLfo5EwUpPh nyMjsQWmvPQaC7OzxMie N5tnNTGdACDfqlQuqOJw o7VgENGyhCH0kOQrRN7H UvAKb72qKRSlZMHWrxBw XBPezDhkyJM3qhV7iS8j DlEKqHkfPLAtb1Gjh5Mk J2vrPFOrQSGvhAKwtLhe vU0qYsNlHsUrFZqsZI9n HLIuA6hvuSVuUGBmPZKu A8haWcJooL8nhPhxRGtq ZjJcZnMxOFxsdHJjaFxp WUgyk7IwSG70v4YtkvYH pWMzjAQ9sZ2yj8j4BHgq Ea5dVYYhzfhkqBnrqB4r CuWsJdCcFNitUD1pVDTz V2pzbVYkTITkBHSiI7ro IsQblX8zjQsmOBcxGrQh ZnMxOFxpICwgXHBsYWlu XGYxXGZzMThcbGFuZzEw MzNcaGljaFxmMVxkYmNo TMDmPHpqX1klWdXoG5Tk TCIsVYhutEMqV2ixpNCb AkhwGAEZAQS4AMXwDJH2 JCpoGCkduFJ0r08zZEQc vKYlLHi9QMh3ZWIlQBgg XGYxXGZzMThcbGFuZzEw MzNcaGljaFxmMVxkYmNo GLKiBTeuT4azCwThJ3Bn XGZzMThcaSAuXHBsYWlu XGYyXGZzMjJcbGFuZzEw MzNcaGljaFxmMlxkYmNo OUKlPDhqN9ibTlEyNeNh MlxwYXJ9 Lab Interpretation (test Abnormal code = 30524-7) [facility] 2021-10-28 00:21:10 Test Item Value Reference Range Interpretation Comments Submitted Clinical History c6ghvJNfEDCxn7lySQH (test code = 27497) mbGFuZzEwMzNcZnRuYm pcdWMxIHtccnRmMVxzc 3GvS9FjAzQhGJcfbdOz XGRlZmxhbmcxMDMzXGZ 0bmJqXHVjMVxkZWZmMH zsYt7jyNXyfNqqZaEhW AYui8brmdHFelhptDu5 n9ifFROxKeX4dTTcQGq xR6grjnCqnTKwYWKyLW m3wV23MHDztQ4urSNmB CsqwfHeLwM0YQbtXCHe KsO1WJAybFZnOOHaF6k yZWQwXGdyZWVuMFxibH FzFDA5pYqyu1Z5lSJwt GVldHtcZjBcZnMyMiBO v0ZuODc8vThzM0XvDRY fTtV1uYUzYTXqKBxlYZ ThMKKonwS3qD68FCpnt dW5kITpv9Opj91li873 jK7fyQGbOEP1XOArSCP rcMSlQUUtXZC4KOEbyS DwO4xxZWPvQC6qttrhG OsiXYwpIGGgqJK6FSZb xFSzI9KnHWQsAKhtPWP pffb0EmDzQf2pxMAvzT jpXGcgc7baa6zpwDVeB xg0QSXcFpEgWdirFBul t6Ygc6ryYWFgty3mTDX 1gKVgqSrfp7X0xTBrPO JzoNTeosRhHUJmBdE4Z EjiLL2hyb72WMUyEHS5 yc6mqDQnqBxiejAwhGU tWJoeV7BhVOUnz183ET FoV4TiGUSwv5J8ggJeQ rPrQYPzwGS1suF1IPDk QKk9zWCimsO8ksEceNB jH2zayA4dDROkWC9aaw khm2hbKEyhGWrlRLXej ER0yqJ3KLNyjPSvG9Wt jD9jDZFsIYseFLXctam 6JoKyFx9zpALboHihRC xzYmtwYWdlXHBnbmNvb nRccGduZGVjXHBsYWlu XHBsYWluXGYwXGZzMjR byRoiaSkgfK0sFaXkNu XaCHvhCZ5sQMBoG3lhq AMwRZNsSBFvU8uqPwSh zI9nlScbWMdwmkDiYW2 ou6JeUSRrEGVyLXpxK3 4xgfKsc2FrMZ6ng29on TNrjC9iS3B4DB8xAFgy NMCvVUN2GGM3WMXfVwW sCK7wRYGpwQ9mwVwnWG Juuaw3k47jvE7oD4X2K Q45EWpvbTKjawgyOXzn czIyXGxhbmcxMDMzXGh jQ1jkVnKwODAlxPbeJJ ldn9WbHXQhORRsUeOux GFyfX0= Diagnosis (test code = 34) a7ytvWBkYMFadIR5ZmQ lEPRqa8zny4HgqLNkwW WyOCbwoCAftnXptr41i KS6zW22HT0rSINuCnF5 IURdveO7Tuc6SEUfITT yaUNjU379k5lru4dtfh QcrER6EIXeAZWcV0YrY I7oXCNknBKcH37lpMEy BEM5UDDyNEVgoSOrRRB cISG4UELuaNTiF6eoSH IjTB1rbfzqXAlgYPwwU PVrwZJ1ZDSbcASkF8Ey ZZSnKEdrABKdthn2FbL uJt2keIUuzUrlLQcjUX JkXHBsYWluXGZzMjBcY 1UjIES9WBxhZiStcFBy yehuUSJxEkBdbDiup5C aWV6rFXNqTDNprC9eb7 y2AVGbfanorRdnVRzqy Y93YyLdW6OnAMRQV6pC SVZFIEZPUiBDQVJDSU5 QELByBWOGAfKUT0RFNl FuJ8cMEIAUDYPVU6WKP E1WIIUFRVDOUwEgX6IB U9SUPVDTIkGYLi8LSX1 zIHTSHORDE32KGL8MJK xwYXJccGFyZFxwYXIgQ yBUK7XVGWtlWNC1 Comment (test code = 9835) w0acmHEmBBMtpTL3GxS xNDVsw7atm4HucNVyvX BtQBmybWKhpcBrbj05r SO4fL17WM8jCWStQnQ0 BPTyzkO1Wxh0BUOdXQC vrMPzA676x1lxx2amdd AgaXG3rSugLOErepkrJ xF0PYnuPFExeyjwQTi8 WIzrRUSxqEP9LLDnyWQ iG3HwLCHkNU3dwqh2LQ G7WPtcAOOxLqU8MXBov CBtPCArqOzcTIuby083 BUG4CyJfIPMspqLvnRm flE2mTkLlAJISnZ01be 3avCD1v4MhDZ3kF2PxI JQ0CGjdvlQmytKudWQn Nk5eoQZgUNMaOTHtkB8 4UCRfEYEfSH7fgXTnrG ljIGNlbGxzIHRvIGJlI WHyl4g9wXJpHFZfgeHm jYVnq9IcHUZdkbB6MUv wYXRjaHkpLCBQQVgtOC dmxZS8BQfacAMsdqotV PVoWxG5x1VfKPPdHXBg RTUvZIOwNM80ND44KTI cKDkhwhYty3fnfvsfXA QSHNv5KGWbNS0jRWRmB ARtSGpaHY0nFSWHZPf9 XHGjLV9qHDArNSHdWKW dNED3bz3xQqwhPEYbII JbqZS4b7dfB2ivXEWwQ JHopI52bd9nkCZ1u8Ru WE6sU8GpQDGteyRkubb zIGFyZSBpbiBrZWVwaW 5nIHdpdGggdGhlIGFib 1YeYAJbAKrew7Jxqw1m XHBhcn0= Gross Description (test l2nnaPZbMNNsiHGEKCi code = [id number]) wMFxhbnNpXHNwbHRwZ3 CkyogsMFzoZA2iTX6vm YsmfKDjlMBjJM8BRTZa ZmYxXHBhcGVydzEyMjQ aTJZloWEimCO7PUAlFE 1hcmdsMTgwMFxtYXJnc iV3KJMguQPnU5EdZXQa AV2tywaxUAF3IFxakF6 qrjDKXqjnQm9eiMWrmT tcZjFcZmNoYXJzZXQwX MUwcKanCRTnGGb4sW9R QqfwH13yy1O4Szr9VII hOWWrA2TpOQ6qAFGexD BoF47MFmsqBKO1DGRIV bzjLGOrZE7Lq7xzEIIi gFHvEXM4GVozlQNaMIZ yFXGlEZr7FCHrRLghmS AdQX6qwLnyCwmakNsqb 2VjdCBcXGlkIDUxMDAy HCuaLAWeMP2GOwYoQAN oLSHwRDLzSQs6BLo2MM 4WQgKhMUMnSEWvIdi7N fVyOVs1CQstME4JLZt0 ZtL0LsTyUYA5EJZ7AVH cXHQgMiBcXGYgQXJpYW wgXFxmcyAxMCBcXGZiI FgzSxsiYPghR77ybNbq tF2gArhofqBfTLG0GKS hciANClxwbGFpblxlcG ljTmVzdERvYzEgDQpcb HRycGFyXGxpbjBccmlu MCANClxsdHJjaFxiXGN mMVxmczIwIExlZnQgcG VsdmljIHNvZnQgdGlzc 4SgYG2eGPSdYGMkkT5b g6bfk6d1yKAzpX0xKOM rZXJzOlxiMFxjZjAgIE 30hHBmeEseGLRiln33b Wb8RYVlz1OpECFdo6Jb rNZxMP8vXOP4oberJqE xLjQgeCAwLjUgeCAwLj JeE41zoH0aYQljroNoC XRlLCBlbnRpcmVseSBz aAQtqRQ0NQCfaE1lRFK uICBccHJvdGVjdHtcZm fnuXZ0AKseBgqdoV8jt CBIWVBFUkxJTksgbmFt QO7SLT0TQcETUA51UjW hESZ0FLoDF3VGyZH3Bd v2RGt7iVmtNatdufNkc MJjPcHUaT3ZJVngMbug vXX2GVulMnorsP8acDH IWVBFUkxJTksgbmFtZT 1IJE3SVB8HpREkWTP9y NC6DKXKZjqttSW7zSZ6 bB14JBEaPGTsuGRuSSt hE570TPCuXUhjOXz8xf NoXGZzMjAgDQpcZXBpY 67uo4DNd5EyFHGsv3bt rLzts8LyzFQlKJqsSJC fqXEfTKdxuG8bSgLvv8 dwuIe9BKdlffT1LEUlt b6lmRviwQ4vGLiyx4bq BVK8AWEujTZmzECdMGs qzJvneC2gQyPzDgd3PA mdYCVqY3YhM2MpmzB2I HBsYWluXGZzMTYgDQp9 Biomarker Block(s) (test x0pbvUCxOEGvjPK5UcT code = 9841) fDSDry9qku3KzqHZuqL DdIJhqzHDdtzXmov98g TB5pQ94BM3iPGHfPmC0 OIClfdX9Uqr4LCAbVWS gmCNtV180o0abs0qvjn CdyIB1xRqgDCExtlqnN oW9CJmhEXPphbzgXHs3 YWdxVUSonTV9OTGsaKC zJ3OhCIDjEP0bkeb1US C2MVxsEYMpSiV3YOAel OJmRLIdtUaeDEwkb425 SWN8LsHaDRVqqxZqsXb onF6zNwNeWDRKGlGCPU csGOPhWsnqXk5RVZNbd lxwYXJ9 Disclaimer (test code = t4cyiHZoYGCxmIFdWsO 9844) pBXRbNUKsx2qmWDSqxG FuZzEwMzNcZnRuYmpcd XIhCLPkMhGrd1mzt672 nBSge8jbPGBaMhW7eVO vQMOfbOHbI083DURuYW zzi7hmx5ZrBSEtvXNpw 8G9EJWDrfstqYq7wDmh V44nk0D1XpnyK2zeUQG xTJQqZ4YkYP7bODEiIj t7IYC7XDA1UKZtMBUgR 6EaUF0bZUKzjTQuHJq0 l0cimKqxOKGuCIV6d2q aQHetuoDqDX7rhw3rlQ h6s3gfqzAgZLCwDNXps WPKLMAhF9StaUbiGd7w uTa7mGeiAupyTYB3Prr 2ZP0qfv70nab4rKddMI WbfjngFtV2REgvBPHev ennFQn6KSpfDCXhnBK7 YPAknVEbA3LwVLAxRX9 tjuc5RIK2KAtxFMXtHw K7OYYlvERxNGCdkXxuC Dsva931WBP2MvCwXS1l W8Jba1U5dJ5ifXUiVDP ulENfKsFcNKQiag4uxO DtRIeee7ZyLMV1nlH0w TNkqYSpXYBwWJ40Jpvc t3MyYgojWLP9VIAbkmI rd5Qam0qmVrRpyoPuQ2 frO5KhRBMhAWLkTBKhS nZieiLtd4Yqf6BtgRHw oDb2x7xuJVPxIOPtdRk ac4clHHG1ABIzU5U9vI Lau3ooMJipDBRbuLM3b hR4GFHbtNNsH2TqaO7m ZTBzWV6bjmg4o5bsAZP 8HWlfTASjWiV5hmJ6ZP BcaGVhZGVyeTcyMFxmb 937TYL9BgJfXDZtl9Al B3LoyNjbM24knYskO86 lGYFmwFjtbU2xpIiulY 5cZjBcZnMyNFxxbFxwb RAonnpuSAtgvfO2HHrv bhscMRCjEOgtA0izBpY jOUGatLtbWHmia4HtSL DxFNKhNzxsewI7IZLOd 26mMQFdh8UoQUNgfM7t iTKlSKfatxWeuRR3WLg hdmUgYmVlbiBkZXZlbG 4hSLJyJL0dNGFlxyHnp j3mciPeIXUlMCIgL4Jf cmlzdGljcyBkZXRlcm1 ivyTeNSG0YYCJNG9DNQ McSDUkq75qBROcnThha S9koOFshdMbHIKfe8Jp aK6zuRSSZJZlG9myIS6 yFYpdb3XzzEQooAErgT X9USSdl1JsOkLruoGaw SZfqDBqU3LduWhrT2ew KVKcIRDzpaTotOAbw2C wHEDnlUZ8qHDdPK6VIv MYf70oWEOsPIGYosWbH BRwtYfzyXE9hbL2dY4j LiBJZiBhcHBsaWNhYmx wSLTvs184nx0nupQ8LQ ZnLQYwjoeex3FmFZDvV LGgnA68PKRrFZVnmw0a mmxvtNHsrzWpW9Zisvn 3zV0nCLHdKKysVHIrLU ZzMjJcbGFuZzEwMzNca GljaFxmMVxkYmNoXGYx WAitU0hqKuOuKsCwKun [id number] [facility] Material Request 2021-10-25 19:36:01 Test Item Value Reference Range Interpretation Comments Archived Material Previously diagnosed (test code = 54386) tissues from [id number] were selected for molecular analysis. Results will be reported separately. [facility] [id number] 08:35:00 Test Item Value Reference Range Interpretation [...] PATIEN TS. CBC W/PLT COUNT & AUTO [id number] 08:10:00 Test Item Value Reference Range Interpretation [...]
[2023-08-01 15:52] VITALS: BMI 35.6
--- NOTE | 2023-08-01 16:48 | P.OP ---
Preoperative diagnosis: right knee osteoarthritis Postoperative diagnosis: same Primary procedure: right total knee arthroplasty Anesthesia: general Estimated blood loss: 50 cc Specimen: right knee bone remnants Findings: see dictation Operative Technique: Indication For Procedure: Misa is an 73 year-old female presenting to my clinic with signs, symptoms and x-ray findings consistent with a severe right knee osteoarthritis. I discussed with the patient at length risks and benefits associated with operative and nonoperative treatment. She had failed conservative treatment measures and had significant difficulties with ADLs secondary to her pain. We discussed operative treatment and elected to proceed with right total knee arthroplasty. She expressed understanding and elected to proceed with operative treatment. Description Of Procedure: After informed consent was obtained, the patient was identified in the preoperative holding area. The right lower extremity was marked. The patient was then taken to the PACU where he underwent a right lower extremity adductor canal block performed by Anesthesia. She was then taken to the operating room, transferred to the operating table in supine fashion, and placed under general anesthesia. Her right lower extremity was then prepped and draped in usual sterile fashion. A time-out was initiated. The correct patient and procedure were confirmed and identified. The patient did receive her preoperative prophylactic antibiotics. The right lower extremity was then exsanguinated and tourniquet was inflated to 300 mmHg. Approximately 15 cm longitudinal incision was made centered over the anterior aspect of the right knee. Dissection was then taken to the extensor mechanism and a medial parapatellar arthrotomy was performed. The patella was everted and dislocated laterally and the knee was flexed in the fat pad. Osteophytes were debrided off the patella and a lateral release was performed. Medial and lateral meniscus and ACL were all excised exposing the distal femur. Excess hypertrophic synovium was also excised within the suprapatellar pouch. The patient had an MRI of the right knee preoperatively for surgical planning and creation of cutting blocks. The cutting block was then placed over the distal femur and pins were then placed. The distal femoral cutting block was then placed over the pins. Knee joint was then used to ensure proper depth cut and the distal femur was then cut. The chamfer cutting guide was then placed over the distal end of the femur. Anterior, posterior cuts as well as anterior and posterior chamfer cuts were then made again confirming proper depth of the cut using an Enrike wing. Excess bone remnants were then sent to pathology for further lisa luation. Next, attention was taken to the proximal tibia. A tibial jig and tibial cutting block was then placed on proximal aspect of the right tibia and locked into position. Pins were then placed and alignment guide was then used to confirm proper alignment of the cut and then coronal and sagittal planes. Once this was confirmed, the cutting jig was placed over the pins and the proximal tibia was cut. Sizing trays were then selected and size 10 mm spacer was used and there was good overall balance in flexion and extension. Next, the trial implants were then placed using the size 8 standard CR femur and a size D tibia with a 11 mm poly. There was overall good range of motion and good stability Trial implants were then removed. The wound was then irrigated thoroughly with normal saline and the knee was then injected with 20 cc of 0.5% Marcaine both in the posterior capsule and medial and lateral gutters as well as quadriceps tendon and periosteum. The tibia was then punched. The femur was drilled. The cement was then prepared on the back table. Cement was then placed first on the tibial surface followed by size D tibia. Excess cement was removed with [place]gus elevators. Size 8 standard CR femur was then placed on the distal femur after cement was placed on the distal femur. Excess cement was then removed and a size 11 mm trial poly was then placed. The knee was held in extension as the cement hardened. Undersurface of the patella was prepared debriding osteophytes using rongeurs as well as osteophytes had been debrided off the proximal tibia with rongeurs and osteotomes. Cement was placed on the undersurface of the patella after it was cut and a size 29 patella was placed. Once the cement was hardened, the knee was ranged, there was good overall stabil ity both in flexion, extension and as well as stability with varus and valgus stresses. Trial poly was then removed and a size 11 mm CR poly was then placed and locked into position. The knee was then ranged again. There was good overall range of motion both for flexion and extension with good stability. The wound was then irrigated again thoroughly with normal saline using pulse lavage. Tourniquet was let down. Hemostasis was achieved using Bovie electrocautery. Extensor mechanism was then approximated using a #1 Vicryl bothin interrupted and running fashion. The fascia was then approximated using 0 Vicryl. Subcutaneous tissue was approximated with a 2-0 Vicryl. Skin was approximated using don. Sterile dressings were applied. The patient was awakened and transferred back in stable condition Complications: None Implants: [employer] Persona 8 CR femur, D tibia w/ stem, 11 CR poly, 29 patella Fluids & blood products: per anesthesia record; TT: 90 mins @ 350 mmHg Transferred to: Recovery Room Condition: Good
[2023-08-01] MEDS: CEFAZOLIN SODIUM 2 GM in NA CHLORIDE 0.9% 100 ML IVPB SCH (17:19)
[2023-08-01] MEDS ORDERED: ATORVASTATIN 10 MG TAB PO SCH (21:00)
[2023-08-01] MEDS ORDERED: HOME MED 1 EA UNK (Pravastatin Sodium [Pravastatin Sodium] 20 MG Tablet) PO SCH (21:00)
[2023-08-01] MEDS: FAMOTIDINE 20 MG TAB PO SCH (21:28)
[2023-08-01] MEDS: METOPROLOL TAR 25 MG TAB PO SCH (21:29)
[2023-08-01] MEDS: dexAMETHasone 4 MG TAB PO SCH (21:29)
[2023-08-01] MEDS: SACUBITRIL/VALSARTAN 24/26 MG TAB PO SCH (21:29)
[2023-08-02] MEDS: CEFAZOLIN SODIUM 2 GM in NA CHLORIDE 0.9% 100 ML IVPB SCH ×2 (00:15→08:58)
[2023-08-02 08:40] VITALS: TEMP 97
[2023-08-02] MEDS: dexAMETHasone 4 MG TAB PO SCH (08:59)
[2023-08-02] MEDS: METOPROLOL TAR 25 MG TAB PO SCH (08:59)
[2023-08-02] MEDS: FAMOTIDINE 20 MG TAB PO SCH (09:00)
[2023-08-02] MEDS ORDERED: HOME MED 1 EA UNK (Spironolactone [Aldactone] 50 MG Tablet) PO SCH (09:00)
[2023-08-02] MEDS ORDERED: CELECOXIB 100 MG CAPSULE PO SCH (09:00)
[2023-08-02] MEDS: SACUBITRIL/VALSARTAN 24/26 MG TAB PO SCH (09:00)
[2023-08-02] MEDS ORDERED: SPIRONOLACTONE 25 MG TABLET PO SCH (09:00)
[2023-08-02] MEDS ORDERED: APIXABAN 5 MG TABLET PO SCH (09:00)
[2023-08-02 10:08] VITALS: O2SAT 96
[2023-08-02 12:16] VITALS: BP 121/73
--- NOTE | 2023-08-02 14:25 | P.DS ---
Admission Date: 08/01/23 Discharge Date: 08/02/23 Disposition: DC HOME/HOME HEALTH CARE Discharge Condition: GOOD Reason for Admission: R TKA Consultations: none Procedures: R TKA 08/01/2023 Brief History of Present Illness: Misa is a 73-year-old female that underwent right total knee arthroplasty on August 01, 2023 without complication. She was admitted to floor in stable condition. Hospital Course: Misa is a 73-year-old female that underwent right total knee arthroplasty on August 01, 2023 without complication. She was admitted to floor in stable condition. Physical therapy was consulted to aid with mobilization. Patient mobilize safely on August 02, 2023 without complication. Her vital signs remained stable while in the hospital. She was restarted her Eliquis postoperatively. She will follow-up in 2 weeks for wound check and staple removal. Vital Signs/Physical Exam: Temp Pulse Resp BP Pulse Ox 97.0 F 75 16 121/73 96 08/02/23 12:00 08/02/23 12:00 08/02/23 12:00 08/02/23 12:00 08/02/23 12:00 Laboratory Data at Discharge: WBC 4.10 thou/uL (4.3-10.9) L 07/17/23 09:05 Hgb 12.2 g/dL (12.0-15.0) 08/02/23 01:48 Hct 36.0 % (36.0-45.0) 08/02/23 01:48 Plt Count 115 thou/uL (152-406) L 07/17/23 09:05 PT 12.0 SECONDS (9.5-12.5) 07/17/23 09:05 INR 1.09 07/17/23 09:05 APTT 57.3 SECONDS (24.3-36.9) H 07/17/23 09:05 Sodium 138 mEq/L (136-145) 07/17/23 09:05 Potassium 3.6 mEq/L (3.5-5.1) 07/17/23 09:05 BUN 21 mg/dL (7-18) H 07/17/23 09:05 Creatinine 1.17 mg/dL (0.55-1.02) H 07/17/23 09:05 Glucose 97 mg/dL (74-106) 07/17/23 09:05 Home Medications: Pravastatin Sodium 20 mg PO BEDTIME 12/23/20 Metoprolol Tartrate [Lopressor*] 25 mg PO BID 12/02/21 Apixaban [Eliquis] 5 mg PO BID #60 tablet 12/05/21 Sacubitril/Valsartan [Entresto 24 mg-26 mg Tablet] 1 tab PO BID #60 tab 12/05/21 Spironolactone [Aldactone] 50 mg PO DAILY #90 tablet 12/05/21 Famotidine [Pepcid*] 20 mg PO BID 07/17/23 Tramadol HCl [Ultram] 50 mg PO Q8H 07/17/23 dexAMETHasone [Dexamethasone] 4 mg PO BID 07/17/23 methocarbamoL [Methocarbamol] 750 mg PO TID PRN 07/17/23 Hydrocodone 7.5/APAP 325 [[place] 7.5/325 mg*] 1 tab PO Q4H PRN tab 08/02/23 Physician Discharge Instructions: Keep dressing clean, dry and intact. Use GINNA hose for 2 weeks to aid with swelling. Continue Eliquis as prescribed by your system designer. Follow-up with Dr. Delarosa in 2 weeks for reevaluation and staple removal. Diet: Regular Activity: Weight bearing as tolerated Followup: Mateo Chavez MD [Primary Care Provider] - Ziggy Delarosa MD [ACTIVE - CAN ADMIT] - 1-2 Weeks
== END 2023-08-02 16:00 | disposition home health service (06) ==
LOC: OR 06:02 → 2ND 10:58
PROVIDERS: ADMIT Orthopaedic Surgery Sports Medicine; ATTEND Orthopaedic Surgery Sports Medicine
PROC: 0SRD069 Replacement of Left Knee Joint with Oxidized Zirconium on Polyethylene Synthetic Substitute, Cemented, Open Approach (ICD-10-PCS; principal; 2023-08-01 08:00)
DX: M17.11 Unilateral primary osteoarthritis, right knee (principal)
CPT/HCPCS: 93005; 85025; 80048; 36415 ×3; 85610; 88304; 88311; 85730; 85018 ×2; 85014 ×2; 71046; 73560; 97110 ×2; 97116 ×3; 97139; 97161; 97530 ×2; 94010; 27447; C1776 ×3; J8540 ×2; J3475; J2704; J1100; J0171; J2371; J2001 ×3; J2250; J3010; J2405; J7120 ×2; J0690; G0378; G0379

== ENCOUNTER 2024-09-18 14:10 | Emergency (ER) | payer OTHER ==
--- OUTSIDE RECORDS SUMMARY | 2024-09-18 14:15 | XMS REPORT | Clinical Summary ---
Author Name Unknown Organization [facility] Address [address] [place] [address] Care Team Providers Care Pulverizer Feeder Name Role Phone Deonna Leiva MD Primary Care Provider [phone] Denzel Pritchett "Hattie" Unavailable [phone] Mateo Chavez MD Unavailable [phone] David Dobson MD Unavailable [phone] Susan Baird MD Unavailable [phone] Star Treviño MD Unavailable [phone] Nolberto Israel MD Unavailable [phone] Ophelia Craft Unavailable [phone] Pao Irvin MD Unavailable [phone] Artem Castellanos MD Primary Care Provider [phone] Allergies Active Allergy Reactions Criticality Noted Date Comments Codeine GI Intolerance Medium 11/08/2016 Nausea and vomiting sometime. Fruit Punch Flavor Hives,Itching High 11/21/2016 Allergy to most Fruits with seeds, strawberries, etc..... Morphine GI Intolerance Medium 11/24/2016 Nausea and vomiting sometime. Naloxone GI Intolerance 11/24/2016 Opium GI Intolerance 11/24/2016 Hubbard Swelling 02/11/2024 Eyes and face swell from berries Medications * This document contains information received from the source organization and may not represent a complete record from that organization. pravastatin (PRAVACHOL) 20 mg tablet Take 1 tablet (20 mg) by mouth daily. 1 Active ondansetron (ZOFRAN) 4 mg tablet Take 1 tablet (4 mg) by mouth every 6 (six) hours as needed for nausea or vomiting. 1 Active levothyroxine (SYNTHROID, LEVOTHROID) 25 mcg tablet Take 1 tablet (25 mcg) by mouth daily. 1 Active famotidine (PEPCID) 20 mg tablet Take 1 tablet (20 mg) by mouth daily as needed for indigestion, heartburn or reflux. 1 Active Eliquis 5 mg tablet Take 1 tablet (5 mg) by mouth twice daily. 2 Active Entresto 24-26 mg tab per tablet Take 1 tablet by mouth twice daily. 2 Active methocarbamol (ROBAXIN) 750 mg tabletIndicatio ns:muscle spasm,right knee pain Take 1 tablet (750 mg) by mouth every 8 (eight) hours as needed for muscle spasms. Active spironolactone (ALDACTONE) 50 mg tablet Take 1 tablet (50 mg) by mouth daily. Active metoprolol succinate (TOPROL XL) 25 mg 24 hr tablet Take 1 tablet (25 mg) by mouth daily. 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 For pain. 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 To prevent constipation. Hold for loose stools/diarrh ea. 60 tablet 02/17/2024 12:03 PM CDT 4 Active traMADol (ULTRAM) 50 mg tablet Take 1 tablet (50 mg) by mouth as needed. 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 Take with or without food. 60 capsule 09/11/2024 9:31 AM FORENSICS ANALYST 5 Active furosemide (LASIX) 20 mg tablet Take 1 tablet (20 mg) by mouth daily. 2 10/26/19 Discontinu ed(Therapy completed) spironolactone (ALDACTONE) 50 mg tablet Take 1 tablet (50 mg) by mouth daily. 2 10/26/19 24 Discontinu ed(Therapy completed) diclofenac sodium (Voltaren) 1 % gelIndications: Chronic pain Apply 2 g topically 3 (three) times a day. 450 g 2 2 02/13/20 Discontinu ed(Therapy completed) metoprolol tartrate (LOPRESSOR) 25 mg tabletIndicatio ns:Cardiomegaly ,Coronary artery disease due to calcified coronary lesion TAKE ONE TABLET BY MOUTH TWICE A DAY 60 tablet 6 2 02/15/20 24 Discontinu ed( Long-Term Medication ) pregabalin (Lyrica) 50 mg capsuleIndicati ons:Chronic pain Take 1 capsule (50 mg) by mouth twice daily. 60 capsule 2 2 02/13/20 Discontinu ed(Therapy completed) dexAMETHasone (DECADRON) 4 mg tablet Take 1 tablet (4 mg) by mouth twice daily. 5 days total 10/26/19 Discontinu ed(Therapy completed) traMADol (ULTRAM) 50 mg tablet Take 1 tablet (50 mg) by mouth 2 (two) times a day as needed. 02/17/20 Discontinu ed(Stop Taking at Discharge) ciprofloxacin HCl (Cipro) 500 mg tabletIndicatio ns:Metastatic malignant neoplasm to sigmoid colon 1 tablet by mouth at 9pm night before surgery. 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 255 g 4 02/15/20 24 Discontinu ed(Stop Taking at Discharge) Active Problems Patient Care Coordination No te Formatting of this note migh t be different from the original. Please call patient with all appointment dates and times, does not use [facility]. 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 daily. Lipids are being monitored and managed by her outside PCP Recommended continue pravastatin 20 mg p.o. nightly No refills needed at this time; Managed by outside PCP Hypothyroidism 02/04/2024 Metastatic malignant neoplasm to sigmoid colon 0 12/26/2023 Anemia in malignant neoplastic disease Congestive heart failure 01/16/2022 Assessment & Plan (02/04/2024 3:57 PM CDT): ceci has a history of a echocardiogram done 11/21/2021 that showed an ejection fraction of 23% for which patient underwent a left heart catheterization 11/28/2021 showing no acute coronary disease. Patient presented with a echocardiogram from outside hospital that showed ejection fraction of 10 to 15% patient is on good medical management with Entresto 24-26 mg tablet twice daily, spironolactone 50 mg p.o. daily with recommendation to continue current regimen. Her most recent echocardiogram done 11/23/2023 shows improvement in her LV function with LVEF of 47%. She has no signs of cardiac decompensation at this time. She has a good functional capacity and remains stable without symptoms of ischemia or volume overload. Recommended continue GDMT with Entresto 24/26 mg 1 tab p.o. twice daily and metoprolol tartrate 25 mg p.o. twice daily No indication for diuretic initiation Paroxysmal atrial fibrillation 12/13/2021 Assessment & Plan (02/04/2024 3:48 PM CDT): Patient has a history of chronic atrial fibrillation EKG done today showing well controlled atrial fibrillation with rate of 78. Continue metoprolol tartrate 25 mg p.o. twice daily Continue anticoagulation with Eliquis 5 mg p.o. twice daily with a [id number] score 4 (age, gender, CHF, HTN) For apixaban CrCl =/> 25 cc/min: Hold DOAC 1 day prior for low/moderate bleeding risk surgery or 2 days prior for high bleeding risk surgery, with the understanding that there is a slight increased risk of thromboembolic events during that period. Defer to surgical team as to when anticoagulation can be resumed safely from a hemostasis standpoint post surgery; but in general, would recommend to resume therapeutic anticoagulation approximately 24 hrs after procedures/surgery for low/moderate bleeding risk surgery or 48-72 hours after unknown/high bleeding risk surgery. Assessment & Plan (12/13/2021 3:50 PM CDT): Patient has a history of atrial fibrillation she is likely persistent versus chronic with EKG done today showing well controlled atrial fibrillation in the 80s. Continue metoprolol tartrate 25 mg p.o. twice daily but long-term anticoagulation with Eliquis 5 mg p.o. twice daily with a [id number] score 4 (age, gender, CHF, HTN) Preoperative cardiovascular examination 12/14/19 Assessment & Plan (02/04/2024 4:02 PM CDT): Patient is planned to undergo resection of her peritoneal implants. Patient has known nonischemic cardiomyopathy with ejection that has improved to 47% on most recent echocardiogram done 11/23/2023. She is on goal-directed medical management for cardiomyopathy and on exam she does not exhibit any evidence of decompensated heart failure. Patient does not report any chest pain and on EKG she is in rate controlled atrial fibrillation of 78 bpm. Patient is intermediate risk to go forward with her planned laparoscopic procedure No further cardiac work-up is recommended Recommended continue GDMT as mentioned above Okay to hold Eliquis 5 mg 1 tab p.o. twice daily 24 to 48 hours prior to procedure to reduce bleeding risk. Recommend to resume postoperatively when bleeding risk is deemed low Cardiology service is available inpatient if needed. Assessment & Plan (12/23/2021 2:13 PM CDT): Patient is planned to undergo resection of her peritoneal implants. Patient has known nonischemic cardiomyopathy with ejection fraction of 23%. She is on goal- directed medical management for cardiomyopathy and on exam she does not exhibit any evidence of decompensated heart failure. Patient does not report any chest pain and on EKG she is in rate controlled atrial fibrillation of 83 bpm. After discussion with cardiology attending patient is a moderate risk to go forward with her planned procedure or chemotherapy no further cardiac work-up is recommended. Cardiology service is available inpatient if needed. Nonischemic congestive cardiomyopathy 12/13/2021 Assessment & Plan (02/04/2024 3:57 PM CDT): Patient has a history of a echocardiogram done 11/21/2021 that showed an ejection fraction of 23% for which patient underwent a left heart catheterization 11/28/2021 showing no acute coronary disease. Patient presented with a echocardiogram from outside hospital that showed ejection fraction of 10 to 15% patient is on good medical management with Entresto 24-26 mg tablet twice daily, spironolactone 50 mg p.o. daily with recommendation to continue current regimen. Her most recent echocardiogram done 11/23/2023 shows improvement in her LV function with LVEF of 47%. She has no signs of cardiac decompensation at this time. She has a good functional capacity and remains stable without symptoms of ischemia or volume overload. Recommended continue GDMT with Entresto 24-26 mg 1 tab p.o. twice daily and metoprolol tartrate 25 mg p.o. twice daily No refills needed at this time; managed by outside seed yeast operator No indication for diuretic initiation Assessment & Plan (12/13/2021 3:52 PM CDT): Patient has a history of a echocardiogram done 11/21/2021 that showed an ejection fraction of 23% for which patient underwent a left heart catheterization showing no acute coronary disease. Patient presented with a echocardiogram from outside hospital that showed ejection fraction of 10 to 15% patient is on good medical management with Entresto 24-26 mg tablet twice daily, spironolactone 50 mg p.o. daily with recommendation to continue current regimen. Discussed with patient the increased risk of sudden cardiac her low ejection fraction and the recommendation for LifeVest prior to reevaluation to permanent ICD implant for which patient declined. Patient is already had this discussion with her private seed yeast operator concerning a permanent ICD implant and knows she would need a follow-up appointment within 3 months. Patient states she elected to have her further management with her local seed yeast operator. 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 Continue pravastatin 20 mg p.o. daily. Assessment & Plan (11/05/2017 4:48 PM FORENSICS ANALYST): Refers no ischemic symptoms. - LDL at target. - Continue aspirin 81 milligrams by mouth daily. Other specified polyneuropathy 04/25/2017 Essential (primary) hypertension 11/08/2016 Overview (11/21/2016): BP Readings from Last 3 Encounters: 11/21/16 149/79 11/08/16 (!) 180/96 Assessment & Plan (02/04/2024 3:59 PM CDT): Blood pressure is well-controlled with use of metoprolol tartrate 25 mg 1 tab p.o. twice daily and Entresto 24-26 mg 1 tab p.o. twice daily Recommend to continue this regimen Assessment & Plan (12/13/2021 3:54 PM CDT): Well-controlled blood pressure at 100/70 in clinic. Patient reports blood pressures in the 110s to 120s at home. Continue medical management on Entresto 24-26 mg tablet p.o. twice daily, metoprolol tartrate 25 mg p.o. twice daily and spironolactone 50 mg daily. Assessment & Plan (05/06/2018 1:27 PM CDT): Blood pressure currently not well optimized. Of note she was prescribed amlodipine at 5 milligrams by mouth daily during the last appointment but she never took that . I advised her to take that medication at nighttime hold for SBP less than 100 . Continue the rest of the cardiac medications. Therapeutic lifestyle changes has been reinforced. She'll monitor blood pressure as well as heart rate and maintain a log for review on follow-up in 4 weeks. Assessment & Plan (11/05/2017 4:48 PM FORENSICS ANALYST): Blood pressure recheck manually were (left arm) 151/70 and (right arm) 146/70 mmHg. - Added amlodipine 5 grams by mouth daily. - Continue chlorthalidone 25 milligrams by mouth daily. - Continue atenolol 100 milligrams by mouth daily. - Low-salt diet reinforced. - Encouraged to maintain blood pressure diary for next clinic visit. Assessment & Plan (11/21/2016 12:17 PM FORENSICS ANALYST): Do not take her medications today, I encouraged her to remain on her medications for surgery. Morbid (severe) obesity due to excess calories 0 11/08/2016 Overview (11/21/2016): 11/21/2016 Body mass index is 41.48 kg/(m^2). Weight: (!) 106.2 kg (234 lb 2.1 oz) [place] body weight: 52.4 kg (115 lb 7.7 oz) Adjusted ideal body weight: 73.9 kg (162 lb 15 oz) Assessment & Plan (11/21/2016 12:17 PM FORENSICS ANALYST): Discussed diet and weight loss Currently stable, no further recommendations are being made in regards to this for the surgery. For the purposes of surgery and perioperative evaluation, this particular issue should not be a concern, continue any medications that are associated with the issue. The patient may follow up with his / her PCP for management of this issue. Serous cystadenocarcinoma, NOS of endometrium Cancer Staging:Clinical stage from 11/28/2016:Stage IA(Primary) - Signed by Deonna Leiva MD on 12/18/2016 Clinical stage from 10/25/2021: Recurrent - Signed by Deonna Leiva MD on 11/05/2021 Resolved Problems Problem Noted Date Diagnosed Date Resolved Date Encounter for antineoplastic chemotherapy 01/16/2022 10/28/2023 Encounters Date Type Department Care Team Description 09/10/2024 Specialty Pharmacy [facility] [address] [place] [address] Phill Blanca, PharmD Set up Initial Fill for Uterine Cancer, Benefits Investigation for Uterine Cancer 09/09/2024 Specialty Pharmacy [facility] [address] [place] [address] Phill Blanca, PharmD 09/09/2024 Orders Only MD [facility] [address] [place] [address] Aretm Castellanos MD 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 (Primary Dx); Serous cystadenocarcinoma, NOS of endometrium 09/09/2024 Orders Only MD [facility] in [facility] Gynecology [address] [place] [address] Rhonda Carty PA 09/04/2024 Telephone MD [facility] in [place] - Gynecology [address] [place] [address] Lubna Gresham RN 09/04/2024 Orders Only MD [facility] [address] [place] [address] Artem Castellanos MD 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 (Primary Dx); Serous cystadenocarcinoma, NOS of endometrium 09/04/2024 Orders Only MD [facility] - Gynecology [id number] [address] Artem Castellanos MD 09/03/2024 Orders Only MD [facility] - Gynecology [address] [address] Artem Castellanos MD 09/03/2024 Orders Only MD [facility] [address] [address] Artem Castellanos MD 09/03/2024 Telephone MD [facility] in [place] - Gynecology [address] [place] [address] Rhonda Carty PA 08/27/2024 1:30 PM FORENSICS ANALYST - 08/27/2024 11:59 PM FORENSICS ANALYST Hospital Encounter MD [facility] [address] [place] [address] Artem Castellanos MD Lu, Thomas, MD Serous cystadenocarcinoma, NOS of endometrium Discharge Disposition: Home 08/27/2024 Travel 08/26/2024 9:40 AM FORENSICS ANALYST - 08/26/2024 11:59 PM FORENSICS ANALYST Hospital Encounter [facility] [address] [place] [address] Artem Castellanos MD Hoang, Quoc T PA 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 [C78.6] (Primary Dx) Discharge Disposition: Home 08/26/2024 Orders Only Interventional Radiology [address] [facility], 4th [place] [address] Genaro Mcclelland PA 08/08/2024 Orders Only MD [facility] [address] [id number] Gloria Calles PA-C Serous cystadenocarcinoma, NOS of endometrium (Primary Dx) 08/08/2024 Telephone MD [facility] [address] [place] [address] Shaunna Arshad, MARILEE 08/06/2024 1:30 PM FORENSICS ANALYST Follow-Up MD [facility] in [address] [address] Artem Castellanos MD Serous cystadenocarcinoma, NOS of endometrium (Primary Dx) 08/06/2024 Travel 07/02/2024 Orders Only MD [facility] in [address] [address] Rhonda Carty PA Serous cystadenocarcinoma, NOS of endometrium (Primary Dx) 06/26/2024 10:25 AM CDT Ancillary Procedure Diagnostic Imaging in [facility] [id number] [place] [address] [address], [address] [place] [address] Deonna Leiva MD Serous cystadenocarcinoma, NOS of endometrium; Metastatic malignant neoplasm to sigmoid colon; Postoperative visit 06/25/2024 Travel 04/07/2024 Orders Only Gynecologic Oncology Center [address] [facility], 6th [place] [address] Yodit Neville 03/12/2024 10:00 AM CDT Office Visit MD [facility] in [address] [address] Deonna Leiva MD Serous cystadenocarcinoma, NOS of endometrium (Primary Dx); Metastatic malignant neoplasm to sigmoid colon; Postoperative visit 03/12/2024 Travel 03/03/2024 Telephone MD [facility] in [address] [address] Lubna Gresham, RN 02/28/2024 Multidisciplinary Visit MD [facility] in [address] [address] Deonna Leiva MD 02/14/2024 7:00 AM CDT - 02/14/2024 1:05 PM CDT Surgery MAIN OR [address] [place] [address] Deonna Leiva MD ROBOTIC ASSISTED DIAGNOSTIC LAPAROSCOPY OF ABDOMEN, PERITONEUM AND OMENTUM 02/14/2024 7:00 AM CDT Anesthesia Event MAIN OR [address] [place] [address] Anderson Thompson MD Nguyen, Anh-Thuy, MD 02/14/2024 5:21 AM CDT - 02/17/2024 1:12 PM CDT Hospital Encounter MAIN P07A [address] [place] [address] Deonna Leiva MD Jazaeri, Amir Anthony, MD Bodurka, Diane C, MD Serous cystadenocarcinoma, NOS of endometrium; 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; Metastatic malignant neoplasm to sigmoid colon; Congestive heart failure, not otherwise specified; Paroxysmal atrial fibrillation; Morbid (severe) obesity due to excess calories; Anemia in malignant neoplastic disease; Essential (primary) hypertension; Cardiomegaly; Coronary artery disease due to calcified coronary lesion; Nonischemic congestive cardiomyopathy Discharge Disposition: Home 02/14/2024 Travel 02/13/2024 8:30 AM CDT Office Visit MD [facility] in [place] - Gynecology [address] [place] [address] Deonna Leiva MD Serous cystadenocarcinoma, NOS of endometrium (Primary Dx); Congestive heart failure, not otherwise specified; Paroxysmal atrial fibrillation; Encounter for other preprocedural examination 02/13/2024 Travel 02/11/2024 1:30 PM CDT Nutrition Clinical Nutrition For your Nutrition appointment location directions please call: Deonna Leiva MD Tatum, Alyssa C, RD 02/11/2024 Telephone [facility] - Colon and Rectal Surgery [address] [facility] Main Bldg, 7th [place] [address] Jennifer Sadler, RN 02/07/2024 Orders Only Colorectal Center - Colon and Rectal Surgery [address] [facility] Main Bldg, 7th [place] [address] Pastor Cuellar PA Metastatic malignant neoplasm to sigmoid colon (Primary Dx) 02/05/2024 Orders Only [facility] [address] [place] [address] Loren Winn PA 02/04/2024 3:30 PM CDT - 02/04/2024 11:59 PM CDT Hospital Encounter [facility] [address] [place] [address], [facility] [address] Pao Irvin MD Paroxysmal atrial fibrillation; Encounter for other preprocedural examination; Hypothyroidism, not otherwise specified; Congestive heart failure, not otherwise specified; Nonischemic congestive cardiomyopathy; Essential (primary) hypertension Discharge Disposition: Home 02/04/2024 3:00 PM CDT Follow-Up Cardiopulmonary Center [address] [place] [address], [facility] [place] [address] Deonna Leiva MD Gardoni, Natascha, PA Nonischemic congestive cardiomyopathy (Primary Dx); Congestive heart failure, not otherwise specified; Paroxysmal atrial fibrillation; Essential (primary) hypertension; Preoperative cardiovascular examination 02/04/2024 1:13 PM CDT - 02/04/2024 3:29 PM CDT Hospital Encounter [facility] [address] [place] [address], 2nd [place] [address] Izabel Martinez APRN,AGACNP Pre op labs Discharge Disposition: Home 02/04/2024 1:00 PM CDT Consult Perioperative Evaluation and Management [address] [place] [address], [address] [place], [place] [address] [address] Deonna Leiva MD Misoi, Mercy W, MD Encounter for other preprocedural examination (Primary Dx); Serous cystadenocarcinoma, NOS of endometrium; Paroxysmal atrial fibrillation; Hypothyroidism, not otherwise specified; Dyslipidemia; alf use of anticoagulant; Personal history of transient ischemic attack; Hypertension; Chronic congestive heart failure 02/04/2024 12:00 PM CDT POEM Appointments Perioperative Evaluation and Management Center [address] [place] [address], [address] [place] [address] [place] [address] Deonna Leiva MD Pre op labs (Primary Dx) 02/04/2024 Travel 02/01/2024 11:59 PM CDT Anesthesia Event Perioperative Evaluation and Management Center [facility], 6th [place] [address] Aleja Paris, EVERTON 01/01/2024 Orders Only MD [facility] in [address] [address] Rhonda Carty PA Serous cystadenocarcinoma, NOS of endometrium (Primary Dx); Congestive heart failure, not otherwise specified; Paroxysmal atrial fibrillation 12/26/2023 Prep for Surgery MD [facility] in [address] [address] Rhonda Carty PA Serous cystadenocarcinoma, NOS of endometrium (Primary Dx); 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; Metastatic malignant neoplasm to sigmoid colon; Congestive heart failure, not otherwise specified; Paroxysmal atrial fibrillation; Morbid (severe) obesity due to excess calories; Anemia in malignant neoplastic disease; Essential (primary) hypertension; Cardiomegaly; Coronary artery disease due to calcified coronary lesion; Nonischemic congestive cardiomyopathy; Systolic congestive heart failure, not otherwise specified 11/28/2023 1:00 PM FORENSICS ANALYST Telemedicine MD [facility] in [address] [address] Deonna Leiva MD Metastatic malignant neoplasm to sigmoid colon (Primary Dx); Serous cystadenocarcinoma, NOS of endometrium; 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 11/23/2023 4:15 PM FORENSICS ANALYST Ancillary Procedure [facility] MRI [address] [facility], 4th [place] [address] Deonna Leiva MD Serous cystadenocarcinoma, NOS of endometrium; 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 11/23/2023 2:00 PM FORENSICS ANALYST - 11/23/2023 11:59 PM FORENSICS ANALYST Hospital Encounter [facility] [address] [facility], 6th [place] [address] Deonna Leiva MD Congestive heart failure, not otherwise specified Discharge Disposition: Home 11/23/2023 Travel 10/31/2023 Orders Only MD [facility] in [address] [address] Rhonda Carty PA Congestive heart failure, not otherwise specified (Primary Dx) 10/26/2023 1:00 PM FORENSICS ANALYST Follow-Up MD [facility] in [place] - Gynecology [address] [place] [address] Deonna Leiva MD Serous cystadenocarcinoma, NOS of endometrium (Primary Dx); 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; Congestive heart failure, not otherwise specified 10/26/2023 8:00 AM FORENSICS ANALYST Ancillary Procedure Diagnostic Imaging in [facility] [id number] [place] [address] [address] [facility], [address] [place] [address] Deonna Leiva MD Serous cystadenocarcinoma, NOS of endometrium 10/26/2023 Travel after 09/19/2023 Immunizations Name Administration Dates Next Due Pfizer SARS-CoV-2 Vaccination (Purple Cap) 05/14,04/25/2021 Surgical History Surgery Date Site/Laterality Comments SECTION, CLASSIC 01/17/1981 CA LAPAROSCOPY TOT HYSTERECTOMY >250 G W/TUBE/OVAR 11/28/2016 N/A Procedure: ROBOTIC ASSISTED TOTAL HYSTERECTOMY, MINI LAPAROTOMY, CYSTOSCOPY; Surgeon: Deonna Leiva MD; Location: MAIN OR; Service: TRADER - GYNECOLOGIC ONCOLOGY CA SALPINGO-OOPHORECTOMY COMPL/PRTL UNI/BI SPX 11/28/2016 Bilateral Procedure: ROBOTIC ASSISTED SALPINGO-OOPHORECTOMY; Surgeon: Deonna Leiva MD; Location: MAIN OR; Service: TRADER - GYNECOLOGIC ONCOLOGY CA LMTD LMPHADEC STAGING SPX PEL&PARA-AORTIC 11/28/2016 Abdomen/Bilateral Procedure: BILATERAL PELVIC BIOPSIES AND OMENTAL BIOPSY; Surgeon: Deonna Leiva MD; Location: MAIN OR; Service: TRADER - GYNECOLOGIC ONCOLOGY CA INTRAOP SENTINEL LYMPH NODE ID W/DYE INJECTION 11/28/2016 Bilateral Procedure: INTRAOPERATIVE LYMPHATIC MAPPING; Surgeon: Deonna Leiva MD; Location: MAIN OR; Service: TRADER - GYNECOLOGIC ONCOLOGY CHOLECYSTECTOMY 05/25/2018 - 06/23/2018 COLONOSCOPY 09/24/2017 - 09/23/2018 TOTAL KNEE ARTHROPLASTY 08/01/2023 Right CA LAPS ABD PRTM&OMENTUM DX W/WO SPEC BR/WA SPX 02/14/2024 Abdomen/Midline Procedure: ROBOTIC ASSISTED DIAGNOSTIC LAPAROSCOPY OF ABDOMEN, PERITONEUM AND OMENTUM; Surgeon: Deonna Leiva MD; Location: MAIN OR; Service: TRADER - GYNECOLOGIC ONCOLOGY CA LAPAROSCOPY COLECTOMY PARTIAL W/ANASTOMOSIS 02/14/2024 Abdomen/N/A Procedure: ROBOTIC ASSISTED COLECTOMY; Surgeon: Tawanda Mello MD; Location: MAIN OR; Service: COLON & RECTAL SURGERY CA EXCISION/DESTRUCTION OPEN ABDOMINAL TUMOR 5 CM/< 02/14/2024 Abdomen/N/A Procedure: EXCISION OR DESTRUCTION, OPEN INTRA-ABDOMINAL TUMORS, CYSTS OR ENDOMETRIOMAS, 1 OR MORE PERITONEAL, MESENTERIC, OR RETROPERITONEAL PRIMARY OR SECONDARY TUMORS; Surgeon: Tawanda Mello MD; Location: MAIN OR; Service: COLON & RECTAL SURGERY Medical History Medical History Date Comments Hypertension Arthritis Cancer of female genital organ Family history of transient ischemic attack Atrial fibrillation Personal history of transient ischemic attack Hypothyroidism 02/04/2024 Family History Medical History Relation Name Comments Heart attack Father Heart attack Mother Hypertension Mother Relation Name Status Comments Father Mother Social History Tobacco Use Types Packs/Day Years Used Date Smoking Tobacco: Former Cigarettes Q uit: 1970 Smokeless Tobacco: Never Tobacco Cessation:Counseling Given: No Comments:quit 30yrs ago Alcohol Use Standard Drinks/Week Comments Yes 0 (1 standard drink = 0.6 oz pur e alcohol) social drinker Comments No Sex and Gender Information Value Date Recorded Sex Assigned at Not on file Legal Sex Female 8:14 AM FORENSICS ANALYST Gender Identity Not on file Sexual Orientation Not on file Occupation Industry Job Start Date Job End Date [employer] Work Not on file Not on file Not on file Obstetrics History Para Term AB IAB SAB Ectopic Multiple Livin g Live Births 2 2 2 2 Date Outcome GA Total Labor Labor/2nd/3rd Weight Sex Type Anes PTL Marly A1 A5 Name Clin Term Vag-Spo nt Term CS-LTra nv Comments 1) Menopause: age 49 2) HRT: denies 3) Screening: Pap Smear: last 08/2016, atypical glandular cells. Last pap smear prior to this was in 1994. No history of abnormal pap smears prior to 08/2016. Mammogram: last 08/2016, slight abnormality was worked up, recommended repeat breast ultrasound in November 2016. Colonoscopy: has never had. Last Filed Vital Signs Vital Sign Reading Time Taken Comments Blood Pressure 129/83 08/27/2024 4:15 PM FORENSICS ANALYST Pulse 85 08/27/2024 4:15 PM FORENSICS ANALYST Temperature 36.5 C (97.7 F) 08/27/2024 4:15 PM CS T Respiratory Rate 17 08/27/2024 4:15 PM FORENSICS ANALYST Oxygen Saturation 100% 08/27/2024 4:15 PM FORENSICS ANALYST Inhaled Oxygen Concentration - - Weight 89.5 kg (197 lb 5 oz) 08/27/2024 2:12 PM FORENSICS ANALYST Height 160 cm (5' 2.99") 08/27/2024 2:12 PM FORENSICS ANALYST Body Mass Index 34.96 08/27/2024 2:12 PM FORENSICS ANALYST Plan of Treatment Upcoming Encounters Date Type Department Care Team (Late st Contact Info) Description 10/01/2024 11:00 AM FORENSICS ANALYST Lab MD [facility] [place] [facility] [address] [place] [address] [address] [place] [address] Artem Castellanos MD [address] [place] [id number] [email or web address] 10/01/2024 11:30 AM FORENSICS ANALYST Follow-Up MD [facility] in [place] - Gynecology [address] [place] [address] Artem Castellanos MD [address] [place] [id number] [email or web address] 10/01/2024 12:45 PM FORENSICS ANALYST Infusion MD [facility] in [place] - Infusion [address] [place] [address] [address] [place] [address] Artem Castellanos MD [address] [place] [phone] [email or web address] 02/06/2025 8:00 AM CDT Appointment Cardiopulmonary Center [address] [place] [address] Main [facility], 6th [place] [address] Loren Winn PA [address] [place] [address] [email or web address] 02/06/2025 9:00 AM CDT Follow-Up Cardiopulmonary Center [address] [place] [address] Main Bldg, 6th [place] [address] Bakari Marie MD [address] [place] [address] [phone] [email or web address] Health Maintenance Due Date Last Done Comments Pneumococcal Vaccine: 65+ Ye ars (1 of 2 - PCV) 1956 COVID-19 Vaccine (3 - Pfizer risk series) 06/11/2021 05/14/2021, 04/25/2021 Influenza Vaccine (#1) 2024 Procedures Procedure Name Priority Date/Time Associated Diagnosis Comments IR US GUIDED BIOPSY ABDOMINAL NON-ORGAN 75 Routine 08/27/2024 3:20 PM FORENSICS ANALYST Serous cystadenocarcinoma, NOS of endometrium PATHOLOGY BIOPSY INTERPRETATION Routine 08/27/2024 2:50 PM FORENSICS ANALYST Serous cystadenocarcinoma, NOS of endometrium .CBC Routine 08/27/2024 1:35 PM FORENSICS ANALYST Serous cystadenocarcinoma, NOS of endometrium PROTHROMBIN TIME Routine 08/27/2024 1:35 PM FORENSICS ANALYST Serous cystadenocarcinoma, NOS of endometrium BASIC METABOLIC PANEL, CALCIUM TOTAL Routine 08/27/2024 1:35 PM FORENSICS ANALYST Serous cystadenocarcinoma, NOS of endometrium COMPLETE BLOOD COUNT W/ DIFFERENTIAL Routine 08/27/2024 1:35 PM FORENSICS ANALYST Serous cystadenocarcinoma, NOS of endometrium MCKINLEY VUONG MDA EVELIO MUTATION ANALYSIS PRECISION PANEL INTERPRETATION AND REPORT Routine 08/06/2024 3:08 PM FORENSICS ANALYST Serous cystadenocarcinoma, NOS of endometrium DILLON CEJA MD RNA HOLD Routine 08/06/2024 3: 08 PM FORENSICS ANALYST Serous cystadenocarcinoma, NOS of endometrium CT CHEST ABDOMEN PELVIS W CONTRAST Routine 06/26/2024 1:05 PM CDT Serous cystadenocarcinoma, NOS of endometrium Metastatic malignant neoplasm to sigmoid colon Postoperative visit POC CREATININE Routine 06/26/2024 11:21 AM CDT CANCER ANTIGEN 125 Routine 06/25/2024 10:29 AM CDT Serous cystadenocarcinoma, NOS of endometrium Metastatic malignant neoplasm to sigmoid colon Postoperative visit .CBC Routine 02/17/2024 6:05 AM CDT C REACTIVE PROTEIN Routine 02/17/2024 6: 05 AM CDT GLUCOSE, RANDOM Routine 02/17/2024 6:05 AM CDT CREATININE Routine 02/17/2024 6:05 AM CDT BLOOD UREA NITROGEN Routine 02/17/2024 6 :05 AM CDT MAGNESIUM LEVEL Routine 02/17/2024 6:05 AM CDT POTASSIUM LEVEL Routine 02/17/2024 6:05 AM CDT CHLORIDE LEVEL Routine 02/17/2024 6:05 AM CDT CARBON DIOXIDE LEVEL Routine 02/17/2024 6:05 AM CDT SODIUM LEVEL Routine 02/17/2024 6:05 AM CDT COMPLETE BLOOD COUNT W/ DIFFERENTIAL Routine 02/17/2024 6:05 AM CDT BASIC METABOLIC PANEL, CALCIUM TOTAL STAT 02/16/2024 12:33 PM CDT .CBC Routine 02/16/2024 3:51 AM CDT C REACTIVE PROTEIN Routine 02/16/2024 3: 51 AM CDT GLUCOSE, RANDOM Routine 02/16/2024 3:51 AM CDT CREATININE Routine 02/16/2024 3:51 AM CDT BLOOD UREA NITROGEN Routine 02/16/2024 3 :51 AM CDT MAGNESIUM LEVEL Routine 02/16/2024 3:51 AM CDT POTASSIUM LEVEL Routine 02/16/2024 3:51 AM CDT CHLORIDE LEVEL Routine 02/16/2024 3:51 AM CDT CARBON DIOXIDE LEVEL Routine 02/16/2024 3:51 AM CDT SODIUM LEVEL Routine 02/16/2024 3:51 AM CDT COMPLETE BLOOD COUNT W/ DIFFERENTIAL Routine 02/16/2024 3:51 AM CDT .CBC Routine 02/15/2024 4:37 AM CDT C REACTIVE PROTEIN Routine 02/15/2024 4: 37 AM CDT GLUCOSE, RANDOM Routine 02/15/2024 4:37 AM CDT CREATININE Routine 02/15/2024 4:37 AM CDT BLOOD UREA NITROGEN Routine 02/15/2024 4 :37 AM CDT MAGNESIUM LEVEL Routine 02/15/2024 4:37 AM CDT POTASSIUM LEVEL Routine 02/15/2024 4:37 AM CDT CHLORIDE LEVEL Routine 02/15/2024 4:37 AM CDT CARBON DIOXIDE LEVEL Routine 02/15/2024 4:37 AM CDT SODIUM LEVEL Routine 02/15/2024 4:37 AM CDT COMPLETE BLOOD COUNT W/ DIFFERENTIAL Routine 02/15/2024 4:37 AM CDT MCKINLEY VUONG ARCHIVED MATERIAL RETRIEVAL Routine 02/14/2024 9:42 AM CDT Serous cystadenocarcinoma, 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 Congestive heart failure, not otherwise specified Paroxysmal atrial fibrillation Morbid (severe) obesity due to excess calories Anemia in malignant neoplastic disease Essential (primary) hypertension Cardiomegaly Coronary artery disease due to calcified coronary lesion Nonischemic congestive cardiomyopathy PATHOLOGY SURGICAL INTERPRETATION Routine 02/14/2024 8:35 AM CDT Serous cystadenocarcinoma, 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 Congestive heart failure, not otherwise specified Paroxysmal atrial fibrillation Morbid (severe) obesity due to excess calories Anemia in malignant neoplastic disease Essential (primary) hypertension Cardiomegaly Coronary artery disease due to calcified coronary lesion Nonischemic congestive cardiomyopathy CA EXCISION/DESTRUCTION OPEN ABDOMINAL TUMOR 5 CM/< 02/14/2024 5:55 AM CDT Serous cystadenocarcinoma, 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 Congestive heart failure, not otherwise specified Paroxysmal atrial fibrillation Morbid (severe) obesity due to excess calories Anemia in malignant neoplastic disease Essential (primary) hypertension Cardiomegaly Coronary artery disease due to calcified coronary lesion Nonischemic congestive cardiomyopathy Special Needs [email or web address] CA LAPAROSCOPY COLECTOMY PARTIAL W/ANASTOMOSIS 02/14/2024 5:55 AM CDT Serous cystadenocarcinoma, 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 Congestive heart failure, not otherwise specified Paroxysmal atrial fibrillation Morbid (severe) obesity due to excess calories Anemia in malignant neoplastic disease Essential (primary) hypertension Cardiomegaly Coronary artery disease due to calcified coronary lesion Nonischemic congestive cardiomyopathy Special Needs [email or web address] CA LAPS ABD PRTM&OMENTUM DX W/WO SPEC BR/WA SPX 02/14/2024 5:55 AM CDT Serous cystadenocarcinoma, 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 Congestive heart failure, not otherwise specified Paroxysmal atrial fibrillation Morbid (severe) obesity due to excess calories Anemia in malignant neoplastic disease Essential (primary) hypertension Cardiomegaly Coronary artery disease due to calcified coronary lesion Nonischemic congestive cardiomyopathy Special Needs [id number]@LR HISTORICAL ABORH Routine 02/12/2024 2:15 PM CDT Serous cystadenocarcinoma, NOS of endometrium Congestive heart failure, not otherwise specified Paroxysmal atrial fibrillation TMP INTERPRETATION ANTIBODY IDENTIFICATION Routine 02/12/2024 8:58 AM CDT Serous cystadenocarcinoma, NOS of endometrium Congestive heart failure, not otherwise specified Paroxysmal atrial fibrillation ANTIBODY ID Routine 02/12/2024 8:58 AM CDT Serous cystadenocarcinoma, NOS of endometrium Congestive heart failure, not otherwise specified Paroxysmal atrial fibrillation ABID COMPLETE Routine 02/12/2024 8:58 AM CDT Serous cystadenocarcinoma, NOS of endometrium Congestive heart failure, not otherwise specified Paroxysmal atrial fibrillation TMP INTERP AUTO ANTIBODY SCREEN POSITIVE Routine 02/12/2024 8:58 AM CDT Serous cystadenocarcinoma, NOS of endometrium Congestive heart failure, not otherwise specified Paroxysmal atrial fibrillation .CBC Routine 02/12/2024 8:58 AM CDT Serous cystadenocarcinoma, NOS of endometrium Congestive heart failure, not otherwise specified Paroxysmal atrial fibrillation PROTHROMBIN TIME Routine 02/12/2024 8:58 AM CDT Serous cystadenocarcinoma, NOS of endometrium Congestive heart failure, not otherwise specified Paroxysmal atrial fibrillation FREE THYROXINE Routine 02/12/2024 8:58 AM CDT Serous cystadenocarcinoma, NOS of endometrium Congestive heart failure, not otherwise specified Paroxysmal atrial fibrillation THYROID STIMULATING HORMONE Routine 02/12/2024 8:58 AM CDT Serous cystadenocarcinoma, NOS of endometrium Congestive heart failure, not otherwise specified Paroxysmal atrial fibrillation MAGNESIUM LEVEL Routine 02/12/2024 8:58 AM CDT Serous cystadenocarcinoma, NOS of endometrium Congestive heart failure, not otherwise specified Paroxysmal atrial fibrillation APTT Routine 02/12/2024 8:58 AM CDT Serous cystadenocarcinoma, NOS of endometrium Congestive heart failure, not otherwise specified Paroxysmal atrial fibrillation HEMOGLOBIN A1C Routine 02/12/2024 8:58 AM CDT Serous cystadenocarcinoma, NOS of endometrium Congestive heart failure, not otherwise specified Paroxysmal atrial fibrillation TYPE AND SCREEN Routine 02/12/2024 8:58 AM CDT Serous cystadenocarcinoma, NOS of endometrium Congestive heart failure, not otherwise specified Paroxysmal atrial fibrillation COMPREHENSIVE METABOLIC PANEL Routine 02/12/2024 8:58 AM CDT Serous cystadenocarcinoma, NOS of endometrium Congestive heart failure, not otherwise specified Paroxysmal atrial fibrillation COMPLETE BLOOD COUNT W/ DIFFERENTIAL Routine 02/12/2024 8:58 AM CDT Serous cystadenocarcinoma, NOS of endometrium Congestive heart failure, not otherwise specified Paroxysmal atrial fibrillation .CBC Routine 02/04/2024 4:36 PM CDT Congestive heart failure, not otherwise specified Paroxysmal atrial fibrillation Nonischemic congestive cardiomyopathy Essential (primary) hypertension LIPID PANEL Routine 02/04/2024 4:36 PM CDT Congestive heart failure, not otherwise specified Paroxysmal atrial fibrillation Nonischemic congestive cardiomyopathy Essential (primary) hypertension COMPLETE BLOOD COUNT W/ DIFFERENTIAL Routine 02/04/2024 4:36 PM CDT Congestive heart failure, not otherwise specified Paroxysmal atrial fibrillation Nonischemic congestive cardiomyopathy Essential (primary) hypertension HEMOGLOBIN A1C Routine 02/04/2024 4:36 PM CDT Encounter for other preprocedural examination FREE THYROXINE Routine 02/04/2024 4:36 PM CDT Encounter for other preprocedural examination Hypothyroidism, not otherwise specified THYROID STIMULATING HORMONE Routine 02/04/2024 4:36 PM CDT Encounter for other preprocedural examination Hypothyroidism, not otherwise specified COMPREHENSIVE METABOLIC PANEL Routine 02/04/2024 4:36 PM CDT Encounter for other preprocedural examination MAGNESIUM LEVEL Routine 02/04/2024 4:36 PM CDT Paroxysmal atrial fibrillation Encounter for other preprocedural examination EKG, 12-LEAD (SCHEDULED) Routine 02/04/2024 Pre op labs MRI PELVIS W WO CONTRAST Routine 11/23/2023 6:01 PM FORENSICS ANALYST Serous cystadenocarcinoma, 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 ECHOCARDIOGRAM 2D COMPLETE Routine 11/23/2023 2:47 PM FORENSICS ANALYST Congestive heart failure, not otherwise specified PETCT F18 FDG (FLUORODEOXYGLUCOSE) WITHOUT CONTRAST Routine 10/26/2023 11:28 AM FORENSICS ANALYST Serous cystadenocarcinoma, NOS of endometrium CANCER ANTIGEN 125 Routine 10/26/2023 9: 24 AM FORENSICS ANALYST Serous cystadenocarcinoma, NOS of endometrium after 09/19/2023 Results * IR US GUIDED BIOPSY ABDOMINAL (08/27/2024 3:20 PM FORENSICS ANALYST) Anatomical Region Laterality Modality Abdomen/Pelvis, Organ (Other) Co mputed Tomography Narrative 08/27/2024 3:53 PM FORENSICS ANALYST Table formatting from the original result was not included. Date of Procedure: 08/27/24 Attending Physician: Bartolo Kellogg MD Hybrid Derivatives Trader: None Pre Procedure Diagnosis: Serous cystadenocarcinoma, NOS of endometrium Post Procedure Diagnosis: Unchanged Indication: Evaluate for metastasis Protocol Number: N/A Title of Procedure: Percutaneous Ultrasound-Guided Biopsy Operative Findings: Percutaneous image-guided biopsy of 3.5cm left anterior pelvic mass. Consent: The procedure, risks, indications and alternatives were explained. All questions were answered and informed consent was obtained. I have reviewed the history and physical dictated by the OJ / fellow. Sedation/Anesthesia: Moderate sedation for pain control and anxiety was administered by a dedicated nurse under my supervision. There was continuous monitoring of oxygen saturation, heart rate and intermittent monitoring of blood pressure during the procedure. Medication given was midazolam and fentanyl. I was present for the administration of the medications indicated above. Procedure Events Event Event Time Sedation Start 08/27/2024 2:51 PM Sedation End 08/27/2024 3:14 PM Procedure in Detail: A time out was performed prior to the start of the procedure and the correct patient, procedure, presence of consent, site, and side were confirmed with all members of the team. With the patient in the supine position, the skin overlying the area of interest was prepped and draped in the usual sterile fashion. Lidocaine 1% was used for local anesthesia. Using an anterior approach under Ultrasound image-guidance, a 17 gauge needle was advanced down to the left pelvic mass. An image was obtained and placed into the medical record. Samples were obtained for evaluation. Sampling: Core Biopsy: An 18 gauge needle used to obtain samples for surgical pathology evaluation. Total number of samples: 6 Specimens Disposition: Diagnostic Biopsy: The biopsy samples were submitted to pathology. Additional Comments: None Estimated Blood Loss: Minimal Immediate Complications: None Disposition: PACU Plan: No follow-up with Interventional Radiology required. Rhonda PÉREZ [facility] IR ORDERABLES Final Result * Pathology Biopsy Interpretation (08/27/2024 2:50 PM FORENSICS ANALYST) Submitted Clinical History Serous cystadenocarcinoma, NOS of endometrium [C54.1] 08/29/2024 5:25 PM FORENSICS ANALYST [facility] Diagnosis A: Left pelvic mass biopsy: FRAGMENTS OF HIGH GRADE CARCINOMA, CONSISTENT WITH KNOWN HISTORY OF UTERINE SEROUS CARCINOMA. (SEE COMMENT) BCL/FHMT 08/29/2024 5:25 PM [facility] Comment Immunohistochemical stains are performed and show the tumor cells to be positive for cytokeratin 7 (patchy), PAX8, SOX17, p53 (aberrant, over-expressed) and CA (95%, strong). ER shows no definitive nuclear expression, with cytoplasmic staining in 80% of cells. The findings are consistent with the above diagnosis. 08/29/2024 5:25 PM [facility] Gross Description A: Left pelvic mass biopsy: Multiple friable nicole-white cores and core fragments measuring 1.5 x 0.4 x 0.1 cm in aggregate, entirely submitted in A1. GM 08/29/2024 5:25 PM FORENSICS ANALYST [facility] Biomarker Block(s) Block for biomarker testing: A1 Normal block: N/A 08/29/2024 5:25 PM FORENSICS ANALYST [facility] Disclaimer "Some tests reported here may have been developed and performance characteristics determined by [facility] Pathology and Laboratory Medicine. These tests have not been specifically cleared or approved by the U.S. Food and Drug Administration. If applicable, controls were reviewed and showed appropriate reactivity." 08/29/2024 5:25 PM FORENSICS ANALYST [facility] Tissue (Pelvic Mass) 08/27/2024 2:50 PM FORENSICS ANALYST 08/28/2024 7:51 AM FORENSICS ANALYST us Rhonda PÉREZ LAB PATHOLOGY ORDERABLES Final R esult [facility] Cancer [address] [address], [place] * (ABNORMAL) .CBC (08/27/2024 1:35 PM FORENSICS ANALYST) Only the most recent of6 resultswithin the time period is included. White Blood Cell 5.8 4.1 - 10.5 K/uL 08/27/2024 1:42 PM [facility] Red Blood Cell 3.97(L) 3.99 - 5.46 M/uL 08/27/2024 1:42 PM [facility] Hemoglobin 12.2 12.2 - 15.3 g/dL 08/27/2024 1:42 PM [facility] Hematocrit 38.4 36.4 - 46.8 % 08/27/2024 1:42 PM [facility] Mean Cell Volume 97 82 - 99 fL 08/27/2024 1:42 PM [facility] Mean Cell Hemoglobin 30.7 26.6 - 33.2 pg 08/27/2024 1:42 PM [facility] Mean Cell Hemoglobin Concentration 31.8 31.1 - 35.2 g/dL 08/27/2024 1:42 PM [facility] RDW-SD 46.7 37.5 - 49.7 fL 08/27/2024 1:42 PM [facility] Red Cell Diameter Width 13.0 11.6 - 15.5 % 08/27/2024 1:42 PM [facility] Platelet 151(L) 160 - 397 K/uL 08/27/2024 1:42 PM [facility] Mean Platelet Volume 8.6(L) 9.1 - 12.6 fL 08/27/2024 1:42 PM [facility] Neutrophil % 70.7 43.2 - 72.7 % 08/27/2024 1:42 PM [facility] Lymphocyte % 21.2 16.8 - 46.2 % 08/27/2024 1:42 PM [facility] Monocyte % 5.5 5.1 - 12.5 % 08/27/2024 1:42 PM [facility] Eosinophil % 2.4 0.4 - 6.3 % 08/27/2024 1:42 PM [facility] Basophil % 0.2 0.2 - 1.4 % 08/27/2024 1:42 PM [facility] IGRE % 0.0(L) 0.1 - 1.5 % 08/27/2024 1:42 PM [facility] Comment:The IGRE% includes M etamyelocytes, Myelocytes and Promyelocytes. Neutrophil Abs 4.13 1.95 - 7.25 K/uL 08/27/2024 1:42 PM [facility] Lymphocyte Abs 1.24 1.01 - 3.24 K/uL 08/27/2024 1:42 PM [facility] [facility] Monocyte Abs 0.32 0.24 - 0.85 K/uL 08/27/2024 1:42 PM [facility] Eosinophil Abs 0.14 0.02 - 0.50 K/uL 08/27/2024 1:42 PM [facility] Basophil Abs 0.01(L) 0.02 - 0.09 K/uL 08/27/2024 1:42 PM [facility] IG Abs 0.00(L) 0.01 - 0.12 K/uL 08/27/2024 1:42 PM [facility] Blood Peripheral blood specimen / Unknown Venipuncture / Unknown 08/27/2024 1:35 PM FORENSICS ANALYST 08/27/2024 1:36 PM [facility] Gloria Calles PA-C LAB BLOOD ORDERABLES Final Resul t [facility] [place] [facility], [place], [facility] [address] [address], Room #[id number] [place] [address] * (ABNORMAL) Basic Metabolic Panel- Total Calcium (08/27/2024 1:35 PM FORENSICS ANALYST) Only the most recent of2 resultswithin the time period is included. eGFR 52(L) >=60 mL/min/1. 73 sq. m 08/27/2024 2:00 PM [facility] Comment: The eGFRcr is calculated with the 2020 CKD-EPI creatinine equation using creatinine, patient's age, and sex for adults 18 years of age and older. Other factors, especially muscle mass, may affect accuracy and need to be considered. According to the Kidney Disease: Improving Global Outcomes (KDIGO) CKD Work Group 2012 Clinical Practice Guideline, chronic kidney disease (CKD) is defined as the abnormalities of kidney structure or function, present for more than 3 months, with implications for health. CKD should be classified by cause, GFR category, and albuminuria category. KDIGO guidelines provide the following GFR categories. Stage / Description / GFR mL/min/1.73 m2: G1* / Normal or high / >= 90 G2* / Mildly decreased / 60-89 G3a / Mildly to moderately decreased / 45-59 G3b / Moderately to severely decreased / 30-44 G4 / Severely decreased / 15-29 G5 / Kidney failure / <15 *In the absence of evidence of kidney damage, neither G1 nor G2 fulfill criteria for CKD. Calcium Level Total 10.7(H) 8.2 - 10.2 mg/dL 08/27/2024 2:00 PM [facility] Sodium Level 139 136 - 145 mmol/L 08/27/2024 2:00 PM [facility] Potassium Level 4.2 3.4 - 4.5 mmol/L 08/27/2024 2:00 PM [facility] Chloride 101 98 - 107 mmol/L 08/27/2024 2:00 PM [facility] CO2 27 22 - 29 mmol/L 08/27/2024 2:00 PM [facility] Anion Gap 11 4 - 14 mmol/L 08/27/2024 2:00 PM [facility] Creatinine 1.12(H) 0.51 - 0.95 mg/dL 08/27/2024 2:00 PM [facility] BUN 18 6 - 23 mg/dL 08/27/2024 2:00 PM [facility] Glucose Level 95 70 - 99 mg/dL 08/27/2024 2:00 PM [facility] Comment: Effective 04/19/16, the glucose reference intervals have been updated based on [place] Diabetes [employer] guidelines (Standards of Medical Care in Diabetes 2016. Diabetes Care 2016; 39: S13-S22). Fasting blood glucose: Normal: 70-99 mg/dL Impaired fasting glucose (increased risk for diabetes or pre-diabetes): 100-125 mg/dL Diabetes mellitus: >/=126 mg/dL Random blood glucose: Normal: 70-199 mg/dL Note: Random glucose >100 mg/dL is associated with increased risk for diabetes. Blood Peripheral blood specimen / Unknown Venipuncture / Unknown 08/27/2024 1:35 PM FORENSICS ANALYST 08/27/2024 1:36 PM FORENSICS ANALYST us Gloria PÉREZ-C LAB BLOOD ORDERABLES Final Resul t [facility] [address] [address] Ruggiero, Room #[id number] [place] [address] * Prothrombin Time with INR (08/27/2024 1:35 PM FORENSICS ANALYST) Only the most recent of2 resultswithin the time period is included. Prothrombin Time 14.4 12.2 - 14.4 second(s) 08/27/2024 2:11 PM [facility] International Normalization Ratio 1.10 0.91 - 1.10 08/27/2024 2:11 PM FORENSICS ANALYST [facility] Blood Peripheral blood specimen / Unknown Venipuncture / Unknown 08/27/2024 1:35 PM FORENSICS ANALYST 08/27/2024 1:36 PM FORENSICS ANALYST us Gloria PÉREZ-C LAB BLOOD ORDERABLES Final Resul t [facility] [address] [address] Kennedy, Room #[id number] [place] [address] * MD DILLON FRASER: Mutation Analysis Precision Panel Interpretation and Report (08/06/2024 3:08 PM FORENSICS ANALYST) Source Material [id number] 11:37 AM FORENSICS ANALYST [facility] Tumor Block B2 08/25/2024 11:37 AM FORENSICS ANALYST [facility] *Normal Control Material PB 08/25/2024 11:37 AM [facility] MOLECULAR DIAGNOSTICS Interpretation [facility] [id number] SNVs/Indels CNVs Fusions TMB MSI More than 5 genes. See details ASXL1 ERBB2 None 4 mut/Mb Stable (KIESHA) Somatic Mutations (SNVs/Indels) Gene DNA Protein Location VAF Type AXIN2 c.347G>C p.G116A Exon 2 63% SNV - [facility] DDR2 c.2101C>A p.L701I Exon 16 6% SNV - [facility] FGFR2 c.755C>G p.S252W Exon 7 52% SNV - [facility] KMT2C c.75977O>G p.U2950O Exon 52 39% SNV - [facility] PDCD1 c.808G>A p.G270S Exon 5 27% SNV - [facility] PRKDC c.664G>C p.G222R Exon 7 17% SNV - [facility] TP53 c.743G>A p.R248Q Exon 7 66% SNV - [facility] Copy Number Variations (CNVs) Gene Finding Genomic Position Cytoband ASXL1 Amplification chr20:[id number] 514 20q11.21 ERBB2 Amplification chr17:[id number] 4297 17q12 Gene Fusions None Identified Clinical test requisition for mutation studies on the following genes was received: BRAF, KRAS, TP53 Cancer type: High-grade carcinoma, 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 The normative Genbank gene reference sequence identifier and gene symbol in parentheses are provided, followed by the coding DNA sequence change (e.g., "c. 200A>G", which would mean that the position 200 adenine is changed to guanine), and then the inferred protein change (e.g., "p. V35C", which would mean that the amino acid at codon 35 is changed from valine to cysteine). Additional explanations for the DNA and protein changes seen in the current specimen are shown in the following tables: Explanation of DNA variant/mutation types seen in this specimen DNA Change SNV A single nucleotide difference (point mutation) has been identified in the patient sample relative to the reference wild-type gene sequence Explanation of protein variant/mutation types seen in this specimen Protein Change Missense A single amino acid residue change in the patient sample relative to the reference wild-type protein sequence Additional information on genes/variants with findings identified on this assay: Gene Genomic Variant COSMIC dbSNP ClinVar AXIN2 chr17:[id number] C>G c.347G>C p.G116A DDR2 chr1:[id number] C>A c.2101C>A p.L701I FGFR2 chr10:[id number] G>C c.755C>G p.S252W [id number] KMT2C chr7:[id number] A>C c.53745V>G p.H5299V PDCD1 chr2:337233851 C>T c.808G>A p.G270S PRKDC chr8:[id number] C>G c.664G>C p.G222R TP53 chr17:6848918 C>T c.743G>A p.R248Q [id number] Link to COSMIC: [email or web address].ac.[email or web address] Link to dbSNP: https://www.ncbi.nl .nih.gov/snp Link to ClinVar: https://www.ncbi.nl .nih.gov/clinvar Methodology: Test Description: The [facility] Mutation Analysis Precision Panel (MDA EVELIO) assay is a custom high-throughput next generation sequencing-based CLIA assay that uses targeted hybridization-based capture technology for detection of sequence variants/mutations in 610 genes (single nucleotide variants [SNVs] and insertion/deletion alterations [indels]), copy number variants (CNVs) in 583 genes, select gene rearrangements in 34 genes (Fusions), and selected genomic immuno-oncology signatures including microsatellite instability (MSI) and tumor mutational burden (TMB) in DNA isolated from formalin-fixed paraffin embedded (FFPE) tumor tissue and cytology specimens (See Appendix Table 1 and 2). [facility] employs DNA extracted from both tumor tissue and paired normal (blood or tissue) specimens in our CLIA-certified molecular diagnostic laboratory. Routine paraffin-embedded tissue from surgical resection specimens, core needle biopsies and fine needle aspirate (cell blocks and cytology smears) are accepted specimen types. A minimum of 50 ng of genomic DNA undergoes whole-genome library construction with adapters carrying Unique Molecular Indices (WILBUR) allowing tagging of original double-stranded DNA that facilitates statistical reconstruction of reads sequenced as duplicates from a single-amplified genome. A target area of 2.1 megabases (Mb) hg19 genome is enriched with custom hybrid-capture, 120nt dsDNA probes. [facility] assay uses the eXenSa next generation sequencing platform and bidirectional paired-end sequencing to identify nucleic acid variants for all coding regions from most genes in the panel, the TERT promoter, 1 non-coding RNA gene, and clinically relevant rearrangements. Reported somatic mutations are identified by comparison to the human genome reference sequence GRCh37/hg19 and reviewed in Zimplistic against a process-matched normal control. Data analysis is performed in house by the [facility] Bioinformatics pipeline (BIP) which relies on the dual-duplex molecular barcoding for consensus analysis to reduce sequencing artifacts and achieve greater sensitivity and positive predictive value. [facility] is intended to provide tumor mutation profiling in accordance with institutional guidelines in oncology for patients with solid malignant neoplasms. Report annotation and software: A post-variant calling analysis and annotation tool, Zimplistic version 2.0.0.9, was used in the construction of this report. The following additional software tools were utilized in the experimental setup and bioinformatic analysis: Hyasynth Bio Control Software 1.7, [employer] Real Time Analysis Software 3.4.4, BioMetric Solution Application Center 10.2 and [facility] BIP v1.0. Detailed information about the signal-processing, basecalling, alignment, and variant calling algorithms are available upon request. Test performance specifications: The tumor cellularity in the sample submitted is assessed by a combination of direct morphologic assessment and/or immunophenotypic evaluation as part of the pathology workup. For this assay, sensitivity of detection is related in part to depth of coverage, tumor cellularity, and allelic frequency for the mutation. Although the NGS platform is capable of achieving a much higher analytical sensitivity, for clinical purposes, at around 50 ng input DNA and a minimum of 20% tumor cellularity, we determined the effective lower limit of detection (LoD) for SNVs and INDELs of 5% mutation allelic frequency (one mutant allele in the background of nineteen wild type alleles), 5 fusion breakpoint molecules for Fusion detection, and a threshold of 4 copy number for gene amplifications with an overall panel analytical sensitivity for SNVs 99.2%, INDELs 92.3%, CNVs 97.3%, Fusions 89.1% and MSI 100% while maintaining analytical specificity near 100%. Limitations of the test: - MDA EVELIO requires a normal non-tumor sample for appropriate interpretation of somatic mutations. - Silent mutations (mutations that do not result in an amino acid change) are not reported. - A minimum of 20% tumor cellularity is required in the sample for mutation analysis. Clinical tumor specimens below 20% tumor cellularity are not optimal for MSI and TMB interpretation and thus Not Reportable . - The primary purpose of this panel is to detect somatic mutations in genes involved in oncogenesis of this patient s tumor. The test or the results thereof should not be used to detect germline variants for hereditary cancer syndromes. If a hereditary cancer syndrome is suspected, separate testing of a germline sample should be performed using an appropriate assay. - Variants detected below Limits of Detection (LoD) not deemed to be confirmable by independent, orthogonal methods and/or in significant discordance with the tumor cellularity in the tested sample may be excluded as the clinical significance and reliability of such low-level mutation calls is not clear. - Variant allelic frequency (VAF) is included for reported sequence variants and reflects the percentage of mutant reads compared to all reads present at the variant position. This number reflects a complex mixture of factors including tumor cellularity, potential CNVs and loss of heterozygosity, and potential subclonality. In addition, strand or allelic bias can significantly impact the measurement of specific variants in any sequencing platform. The clinical utility or meaning of this number in general is not considered established. Linearity of measurement should not be assumed. - Copy number assessment by next generation sequencing can be affected by tumor cellularity, amplitude of gene amplification, enrichment of tumor during pre-analytical phase, library preparation methods and analysis algorithms. False negative results can be obtained in cases with low tumor percentage, low amplicon coverage and/or borderline copy number gains. Correlation with traditional methods of copy number assessment such as fluorescent in situ hybridization (FISH) is recommended as applicable. - False negative fusion results can occur in cases with low fusion DNA molecules, low tumor cellularity, fusions occurring in highly repetitive intronic sequence contexts or fusions where the genomic breakpoint does not span within targeted introns covered by the panel (See Appendix Table 2). The assay requires a minimum of 20% tumor sample cellularity to reduce the potential for false negative results. Correlation with traditional methods of fusion detection such as fluorescent in situ hybridization (FISH) is recommended as applicable. - Tumor mutational burden (TMB) is determined by measuring the number of somatic mutations occurring in sequenced genes and specified as a rate (mutations per megabase [mut/Mb]). TMB is calculated for all samples and includes the sum of all somatic synonymous and non-synonymous variants present in the sample at a VAF near LoD and above the noise-level of the assay (after filtering). The number of mutations per megabase may be reported as a nominal number rounded to the closest integer. TMB in cases with low sequence quality cannot be established and may be reported as Not Reportable . - The microsatellite instability high (MSI-H) and microsatellite stable (KIESHA) reported by [facility] is based on the analysis of 40+ informative microsatellite loci. The total number of sites evaluated is dependent on coverage metrics over candidate MSI regions in the paired tumor and normal samples. Microsatellite instability is reported as Undetermined if the sample does not meet the required thresholds to make a MSI-H or KIESHA call. The thresholds for designating these calls were established by analytical concordance to comparator assays (PCR, IHC and NGS) using a wide selection of tumor tissue types including colorectal and endometrial cancers. Confirmatory testing of microsatellite instability (MSI-PCR, MLH1 promoter methylation) and DNA mismatch repair gene assessment (MMR deficiency) is recommended as applicable for complete evaluation. - Correlation with clinicopathologic features and prevalent clinical practice guidelines is recommended for complete evaluation and integration of genomic findings in patient care decisions. Sequencing coverage of the genes: The following table describes the extent and adequacy of coverage for ordered genes only. Covered genes/exons/codons are defined as those having total coverage depth of greater than or equal to 100 [id number] , collapsed reads (minimum 100x coverage). Mutations in ordered genes outside the optimally covered regions listed below may be detected with diminished sensitivity and cannot be ruled out. Coverage information for non-ordered genes for this sample is complex and lengthy, but may be requested from the laboratory if required for clinical care or correlative purposes. Coverage for ordered genes and codon(s) tested with a minimum of 100x coverage Gene Exons (codons) tested KRAS ([id number]) 2-5 (1-189) TP53 ([id number]) 2-11 (1-394) APPENDIX: Table 1: Genes of interest for SNVs, INDELs and CNVs ABL1 BRCA1 CTNNA1 ETV4 GNA13 IRF2 MGMT PAXX PTPN11 SDHC JESUS ALBERTO ABL2 BRCA2 CTNNB1 ETV5 GNAQ IRF4 MITF PBRM1 PTPRB SDHD TENT5C ABRAXAS1 BRD4 CUL3 ETV6 GNAS IRS1 MLH1 PCNA PTPRD SESN1 TERC* ACVR1 BRIP1 CUL4A EWSR1 GPS2 IRS2 MLH3 PDCD1 PTPRS SETBP1 TERT^ ACVR1B BTG1* CUL4B EXO1 GRIN2A JAK1 MPL EINL5ZH5 PTPRT SETD2 TET1 ACVR2A BTG2* CUX1 EZH2 GRM3 JAK2 MRE11 PDGFB QKI SF3B1 TET2 ADGRA2 BTK CXCR4 FADD GSK3B JAK3 MSH2 PDGFRA RAB35 SGK1 TFE3 AJUBA BUB1 CYLD FANCA H1-2* JESSA MSH3 PDGFRB RAC1 SH2B3 TGFB1 AKT1 CALR BEO5P07 FANCC H2AX* KAT6A MSH6 PDK1 RAD21 SH2D1A TGFBR1 AKT2 CARD11 DAXX FANCD2 H2BC5* KDM5A MST1 PER1 RAD50 SHLD1 TGFBR2 AKT3 CASP8 NCMET5M FANCE H3-3A* KDM5C MST1R PGD RAD51 SHLD2 POCB819 AKTIP CBFB CGUI2Y5 FANCF H3-3B* KDM6A MTAP PGR [id number] SHPRH TMPRSS2 ALK CBL DDB1 FANCG H3-4* KDR MTOR PHF6 RAD51B SHQ1 TNF MEPW43V CCN6 DDR1 FANCI H3-5* KEAP1 MUTYH PHOX2B RAD51C SEI85B8 TNFAIP3 AMER1 CCNA2 DDR2 FANCL H3C1* JENN MXD4 XRM4Y7E RAD51D SLIT2 HGMRYA31 ANKRD11 CCND1 DDX3X FANCM H3C10* KIT MYB BAW3Z4N RAD52 SLX4 TOP1 APC CCND2 DICER1 FAS H3C11* KLF4 MYC PIK3C3 RAD54L SMAD2 TOP2A AR CCND3 DIS3 FAT1 H3C12* KLHL6 MYCL PIK3CA RAF1 SMAD3 TOP3A ARAF CCNE1 DLL3 FBXW7 H3C13* KMT2A MYCN PIK3CB JAKE SMAD4 TOPBP1 ARFRP1 CD274 DNA2 FGF10 H3C2* KMT2B MYD88 PIK3CD RASA1 SMARCA2 TP53 ARID1A CD276 DNAJB1 FGF14 H3C3* KMT2C MYOD1 PIK3CG RB1 SMARCA4 IF74PW5 ARID1B CD74 DNMT1 FGF19 H3C4* KMT2D NBN PIK3R1 RBM10 SMARCAD1 TP53I3 ARID2 CD79A DNMT3A FGF23 H3C6* KNSTRN NCOA3 PIK3R2 RECQL4 SMARCB1 TP63 ARID5B CD79B DNMT3B FGF3 H3C7* KRAS NCOR1 PIK3R3 REL SMARCD1 TRAF2 ASCC3 CD8A DOT1L FGF4 H3C8* LATS1 NEGR1 PIM1 RET SMC1A TRAF7 ASPM CDC20 E2F3 FGF5 HDAC2 LATS2 NF1 PLCG1 REV3L SMC3 FZHZLX29 ASXL1 CDC27 EED FGF6 HDAC9 LCK NF2 PLCG2 RFC1 SMC5 TSC1 ASXL2 CDC6 EGFL7 FGF9 HELQ LIG4 NFE2L2 PLK2 RFC2 SMC6 TSC2 LIVIER CDC73 EGFR FGFR1 HERC2 LMO1 NFKBIA PMAIP1* RFC3 SMO TSHR ATR CDH1 EIF1AX FGFR2 HFM1 LRP1B NHEJ1 PML RFC4 SNCAIP TTK ATRX CDK12 EIF4A2 FGFR3 HGF ANTONIA NKX2-1 PMS1 RFC5 SOCS1 TYRO3 AURKA CDK2 EIF4E FGFR4 HLA-A MAD2L2 NKX3-1 PMS2 RHEB SOS1 U2AF1 AURKB CDK4 ELF3 FH HNF1A MAGOH NOTCH1 PNKP RHOA SOX10 VEGFA AURKC CDK6 ELOC FLCN HOXB13 MALT1 NOTCH2 PNRC1 RICTOR SOX17 VHL AXIN1 CDK8 EMSY FLT1 HRAS MAP2K1 NOTCH3 POLA1 RIF1 SOX2 VTCN1 AXIN2 CDKN1A ENO1 FLT3 HSD3B1 MAP2K2 NOTCH4 POLD1 RIT1 SOX9 WRN RAPHAEL CDKN1B EP300 FLT4 TPN22GL1 MAP2K4 NPM1 POLE RMI1 SPEN WT1 B2M CDKN2A EPCAM FOXA1 [id number] MAP2K7 NRAS POLQ RMI2* SPOP XIAP BAP1 CDKN2B EPHA2 FOXL2 ICOSLG MAP3K1 NSD1 PPARG RNF43 SRC XPO1 BARD1 CDKN2C* EPHA3 FOXO1 ID3* GTI7T49 NSD3 PPM1D ROS1 SRSF2 XRCC2 BBC3 CEBPA EPHA5 FOXP1 IDH1 YHU0O58 NT5C2 GBF0R9H RPA1 SSBP1 XRCC3 BCL10 CENPA EPHA7 FRS2 IDH2 MAP3K4 NTRK1 GLA6C3J RPA2 STAG2 XRCC4 BCL11A CENPE EPHB1 FTO IFNGR1 MAPK1 NTRK2 KDK1Q9Y RPA3* STAT3 XRCC5 BCL2 CHAF1A ERBB2 FUBP1 IGF1 MAPK3 NTRK3 PPP4R4 RPA4 STAT4 XRCC6 BCL2L1 CHEK1 ERBB3 FYN IGF1R MAPK8 NUP93 PPP6C EJS7KV0 STAT5A YAP1 JQA6D84 CHEK2 ERBB4 GABRA6 IGF2 MAX NUTM1 PRC1 JAJ6VR9 STAT5B YES1 BCL2L2* CIC ERCC1 EQBB00B IKBKE MCL1 PAK1 PRDM1 LSE2EY8 STK11 ZFHX3 BCL6 COL2A1 ERCC2 GATA1 IKZF1 MDC1 PAK3 PREX2 RPTOR STK19 DJY818 BCOR COP1 ERCC3 GATA2 IL10 MDM2 PAK5 PRG4 RSPO1 STK40 THU952 BCORL1 CREBBP ERCC4 GATA3 IL7R MDM4 PALB2 IVEGM0Q RSPO2 SUFU ZRSR2 BCR CRKL ERCC5 GATA4 INHA MED12 PARP1 PRKCI RUNX1 SUZ12 BIRC2 CRLF2 ERCC6 GATA6 INHBA MEF2B PARP2 PRKDC XQXI3J5 SYK BIRC3 CSF1R ERG GEN1 INO80 MEN1 PARP3 PRKN RYBP TBC1D4 BLM CSF3R ERRFI1 GID4 INPP4A MERTK PARP4 PTCH1 SDHA TBX3 BMPR1A CTCF ESR1 GLI1 INPP4B MET PARPBP PTEN SDHAF2 TCF3 BRAF CTLA4 ETV1 GNA11 INSR MGA PAX5 PTK2 SDHB TCF7L2 *Gene not included for CNV reporting ^ Includes promoter region ncRNA Gene Table 2. Genes with select intronic regions for the detection of DNA-based gene rearrangements ALK introns: 18-19 BRCA2 introns: 2 ETV4 introns: 5-6 EZR introns: 9-11 KIT introns: 16 MYB introns: 14 NTRK2 introns: 12 JAKE introns: 2 SDC4 introns: 2 BCR introns: 7-10 CD74 introns: 6-8 ETV5 introns: 6-7 FGFR1 introns: 1,5,17 KMT2A introns: 6-11 MYC introns: 1 NUTM1 introns: 1 RET introns: 7-11 NHR43P8 introns: 4 BRAF introns: 7-10 EGFR introns: 7,15,24-27 ETV6 introns: 5-6 FGFR2 introns: 1,17 MET* introns 13,14 NOTCH2 introns: 26 PDGFRA introns: 7,9,11 ROS1 introns: 31-35 TMPRSS2 introns: 1-3 BRCA1 introns: 2,7-8,12,16,19-20 EML4 introns: 6,13 EWSR1 introns: 7-13 FGFR3 introns: 17 MSH2 introns: 5 NTRK1 introns: 8-10 RAF1 introns: 4-8 RSPO2 introns: 1 *Targeted for MET exon 14 skipping assessment DISCLAIMER: This test was developed and its performance characteristics determined by the [facility]. It has not been cleared by the U.S. Food and Drug Administration. However, such approval is not required for clinical implementation, and the test results on the ordered genes have been shown to be clinically useful. This laboratory is CAP accredited and CLIA certified to perform high complexity molecular testing for clinical purposes. 08/25/2024 11:37 AM FORENSICS ANALYST [facility] Pathologist Signature . Test performed on 08/23/2024 08/25/2024 11:37 AM FORENSICS ANALYST MOLECULAR DIAGNOSTICS Microsatellite Instability (MSI) by NGS MSI-Stable 08/25/2024 11:37 AM FORENSICS ANALYST [facility] Tumor Mutational [place] (TMB) 4 mut/Mb 08/25/2024 11:37 AM FORENSICS ANALYST [facility] Tissue Non-blood Collection / Unknown 08/06/2024 3:08 PM FORENSICS ANALYST 08/06/2024 3:08 PM FORENSICS ANALYST Narrative This result has genomic variants that were not included in this document. Rhonda PÉREZ MDA [facility]ULAR [facility] Shyann l Result [facility] [address] [place] [id number], MOLECULAR DIAGNOSTICS [facility] Molecular Diagnostics Laboratory [address] [place] [address] * RNA Hold (08/06/2024 3:08 PM FORENSICS ANALYST) Tissue Non-blood Collection / Unknown 08/06/2024 3:08 PM FORENSICS ANALYST 08/06/2024 3:08 PM FORENSICS ANALYST Rhonda PÉREZ MDA CP BIOMARKER WORKUPS Final R esult MOLECULAR DIAGNOSTICS [facility] Molecular Diagnostics Laboratory [address] [place] [address] * CT chest abdomen pelvis w contrast (06/26/2024 1:05 PM CDT) Anatomical Region Laterality Modality Abdomen, Pelvis, Chest Computed Tomography 06/26/2024 1:26 PM CDT Impressions 06/26/2024 1:47 PM CDT Stable left lower quadrant peritoneal 3.8 cm implant, abutting a sigmoid bowel loop. New left lateral ventral pelvic 2 cm peritoneal implant. No evidence of metastatic disease in the chest. ACTIONABLE ITEMS/RECOMMENDATIONS*: None. *An Actionable Finding is a finding that may be unrelated to the original reason for imaging but potentially actionable, meaning further investigation may be necessary. The Actionable Findings Vigilance Unit (AFVU) assists medical providers with responding to additional radiologic findings that are unexpected and potentially actionable. Narrative 06/26/2024 1:47 PM CDT FULL RESULT: Examination: CT CHEST ABDOMEN PELVIS W CONTRAST on 06/26/2024 1:05 PM. 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 Indication: Cancer surveillance, history of recurrent endometrial cancer. Comparison: 11/23/2023 MRI pelvis, 10/26/2023 PET/CT. Technique: CT CHEST ABDOMEN PELVIS W CONTRAST. Findings: CHEST: Lungs and Pleura: No suspicious pulmonary nodule. Stable right anterior upper lobe 0.3 cm calcified granuloma (series 4 image 53). Few scattered groundglass opacities and areas of mucus plugging (e.g. series 4 image 54). No pleural effusion. Cardiomediastinum: The heart is normal in size. No pericardial effusion. Lymph nodes: No lymphadenopathy. ABDOMEN AND PELVIS: Hepatobiliary: No suspicious hepatic lesion. No biliary dilatation. Cholecystectomy. Spleen: No splenomegaly. Pancreas: No mass or ductal dilatation. Adrenal Glands: No mass. Kidneys, Ureters, Bladder: No hydronephrosis. No suspicious solid renal lesion. Bilateral renal cysts. No bladder mass. Gastrointestinal Tract: No bowel obstruction. Small hiatal hernia. Pelvic Organs: Hysterectomy and bilateral oophorectomy. Peritoneum/Retroperitoneum: Left lower quadrant 3.8 x 2.1 cm lobulated mass abutting left lower quadrant sigmoid bowel loop (series 3 image 224) is not significantly changed since 11/23/2023. New left lateral ventricle pelvic peritoneal 1.6 x 2 cm nodule (series 3 image 232). No ascites. Lymph Nodes: No lymphadenopathy. MUSCULOSKELETAL: No suspicious skeletal lesion. Moderate degenerative changes. Stable left lateral gluteal subcutaneous 2.4 cm cyst. Procedure Note Tayler France MD - 06/26/2024 FULL RESULT: Examination: CT CHEST ABDOMEN PELVIS W CONTRAST on 06/26/2024 1:05 PM. 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 Indication: Cancer surveillance, history of recurrent endometrialcancer. Comparison: 11/23/2023 MRI pelvis, 10/26/2023 PET/CT. Technique: CT CHEST ABDOMEN PELVIS W CONTRAST. Findings: CHEST: Lungs and Pleura: No suspicious pulmonary nodule. Stable right anteriorupper lobe 0.3 cm calcified granuloma (series 4 image 53). Few scatteredgroundglass opacities and areas of mucus plugging (e.g. series 4 image54). No pleural effusion. Cardiomediastinum: The heart is normal in size. No pericardial effusion. Lymph nodes: No lymphadenopathy. ABDOMEN AND PELVIS: Hepatobiliary: No suspicious hepatic lesion. No biliary dilatation.Cholecystectomy. Spleen: No splenomegaly. Pancreas: No mass or ductal dilatation. Adrenal Glands: No mass. Kidneys, Ureters, Bladder: No hydronephrosis. No suspicious solid renallesion. Bilateral renal cysts. No bladder mass. Gastrointestinal Tract: No bowel obstruction. Small hiatal hernia. Pelvic Organs: Hysterectomy and bilateral oophorectomy. Peritoneum/Retroperitoneum: Left lower quadrant 3.8 x 2.1 cm lobulatedmass abutting left lower quadrant sigmoid bowel loop (series 3 image 224)is not significantly changed since 11/23/2023. New left lateral ventriclepelvic peritoneal 1.6 x 2 cm nodule (series 3 image 232). No ascites. Lymph Nodes: No lymphadenopathy. MUSCULOSKELETAL: No suspicious skeletal lesion. Moderate degenerative changes. Stable leftlateral gluteal subcutaneous 2.4 cm cyst. IMPRESSION: Stable left lower quadrant peritoneal 3.8 cm implant, abutting a sigmoidbowel loop. New left lateral ventral pelvic 2 cm peritoneal implant. No evidence of metastatic disease in the chest. ACTIONABLE ITEMS/RECOMMENDATIONS*: None. *An Actionable Finding is a finding that may be unrelated to the originalreason for imaging but potentially actionable, meaning furtherinvestigation may be necessary. The Actionable Findings Vigilance Unit(AFVU) assists medical providers with responding to additional radiologicfindings that are unexpected and potentially actionable. Rhonda PÉREZ IM CT ORDERABLES Final Result * (ABNORMAL) POC Creatinine (06/26/2024 11:21 AM CDT) POC Creatinine 1.1 0.6 - 1.3 mg/dL 06/26/2024 11:23 AM CDT [facility] Comment:Medications, especia lly hydroxyurea or supplements, such as ascorbate, can interfere with test results causing a falsely and significantly higher result than expected. If a problem is suspected with a patient's result, a sample should be sent to the laboratory for confirmatory testing. POC eGFR 53(L) >=60 mL/min/1.7 3 sq. m 06/26/2024 11:23 AM CDT [facility] Comment: The eGFRcr is calculated with the 2020 CKD-EPI creatinine equation using creatinine, patient's age, and sex for adults 18 years of age and older. Other factors, especially muscle mass, may affect accuracy and need to be considered. According to the Kidney Disease: Improving Global Outcomes (KDIGO) CKD Work Group 2012 Clinical Practice Guideline, chronic kidney disease (CKD) is defined as the abnormalities of kidney structure or function, present for more than 3 months, with implications for health. CKD should be classified by cause, GFR category, and albuminuria category. KDIGO guidelines provide the following GFR categories. Stage / Description / GFR mL/min/1.73 m2: G1* / Normal or high / >= 90 G2* / Mildly decreased / 60-89 G3a / Mildly to moderately decreased / 45-59 G3b / Moderately to severely decreased / 30-44 G4 / Severely decreased / 15-29 G5 / Kidney failure / <15 *In the absence of evidence of kidney damage, neither G1 nor G2 fulfill criteria for CKD. Blood 06/26/2024 11:2 1 AM CDT 06/26/2024 11:23 AM CDT Narrative [facility] - 06/26/2024 11:23 AM CDT Method description: The i-STAT is an analyzer used for in vitro quantification of various analytes in whole blood. The device uses a single disposable cartridge which contains microfabricated sensors, a calibration solution, fluidics system, and a waste chamber. Each test cartridge contains chemically sensitive biosensors on a silicon chip that are configured to perform specific tests. The microfabricated sensors measure analyte concentration by an electrochemical assay. Deonna Leiva MD POCT ORDERABLES - DEVICE Fin al Result [facility] [address] [place] [address], [place] * Cancer Antigen 125 (06/25/2024 10:29 AM CDT) Only the most recent of2 resultswithin the time period is included. Cancer Antigen 125 11.6 <=38.0 U/mL 06/25/2024 11:05 AM CDT [facility] Blood Peripheral blood specimen / Unknown Venipuncture / Unknown 06/25/2024 10:29 AM CDT 06/25/2024 10:29 AM CDT Narrative [facility] - 06/25/2024 11:05 AM CDT Results greater than 11,500.0 U/mL may not be reliable due to matrix effect with extended dilution as it exceeds the underground bolting machine operator's recommended limit. Caution should be exercised when interpreting such values and done in conjunction with clinical context. This test is measured by electrochemiluminescence immunoassay on Baldev Hany immunoassay analyzers. Results obtained in different methods are not interchangeable. Reference intervals are not available for male patients. Results should be interpreted in conjunction with clinical context. us Rhonda PÉREZ LAB BLOOD ORDERABLES Final Resul t [facility] [address], [address][id number] [place] [address] * Glucose, Random (02/17/2024 6:05 AM CDT) Only the most recent of3 resultswithin the time period is included. Glucose Random 91 70 - 199 mg/dL 02/17/2024 7:17 AM CDT [facility] Blood Peripheral blood specimen / Unknown Venipuncture / Unknown 02/17/2024 6:05 AM CDT 02/17/2024 6:22 AM CDT Narrative [facility] - 02/17/2024 7:17 AM CDT Effective 04/19/16, the glucose reference intervals have been updated based on [place] [employer] guidelines (Standards of Medical Care in Diabetes 2016. Diabetes Care 2016; 39: S13-S22). Fasting blood glucose: Normal: 70-99 mg/dL Impaired fasting glucose (increased risk for diabetes or pre-diabetes): 100-125 mg/dL Diabetes mellitus: >/=126 mg/dL Random blood glucose: Normal: 70-199 mg/dL Note: Random glucose >100 mg/dL is associated with increased risk for diabetes Amilcar Salter MD LAB BLOOD ORDERABLES Fin al Result [facility] Unless otherwise noted, all lab tests performed by: Division of Pathology and Laboratory Medicine [address] [place] [id number] * CRP (02/17/2024 6:05 AM CDT) Only the most recent of3 resultswithin the time period is included. CRP (C Reactive Protein) 72.16 mg/L 02/17/2024 7:31 AM CDT [facility] Blood Peripheral blood specimen / Unknown Venipuncture / Unknown 02/17/2024 6:05 AM CDT 02/17/2024 6:22 AM CDT Narrative [facility] - 02/17/2024 7:31 AM CDT Adult Reference ranges for HS CRP assay are as follows: Reference ranges when used to assess cardiac risk: <1.00 mg/L Low cardiovascular risk 1.00-3.00 mg/L Average cardiovascular risk >3.00 mg/L High cardiovascular risk Reference ranges when used to assess inflammatory responses: Less than or equal to 10.00 mg/L. Result Claudia Salter MD LAB BLOOD ORDERABLES Fin al Result [facility] Unless otherwise noted, all lab tests performed by: Division of Pathology and Laboratory Medicine [address] [place] [id number] * (ABNORMAL) Blood Urea Nitrogen (02/17/2024 6:05 AM CDT) Only the most recent of3 resultswithin the time period is included. BUN 24(H) 6 - 23 mg/dL 02/17/2024 7:17 AM CDT [facility] Blood Peripheral blood specimen / Unknown Venipuncture / Unknown 02/17/2024 6:05 AM CDT 02/17/2024 6:22 AM CDT Amilcar Salter MD LAB BLOOD ORDERABLES Fin al Result Performing Organization Address [facility] Co de Phone Number [facility] Unless otherwise noted, all lab tests performed by: Division of Pathology and Laboratory Medicine [address] [place] [id number] * Sodium Level (02/17/2024 6:05 AM CDT) Only the most recent of3 resultswithin the time period is included. Sodium Level 139 136 - 145 mmol/L 02/17/2024 7:17 AM CDT [facility] Blood Peripheral blood specimen / Unknown Venipuncture / Unknown 02/17/2024 6:05 AM CDT 02/17/2024 6:22 AM CDT Narrative [facility] - 02/17/2024 7:17 AM CDT Reference range established based on adult population Result Claudia Salter MD LAB BLOOD ORDERABLES Fin al Result [facility] Unless otherwise noted, all lab tests performed by: Division of Pathology and Laboratory Medicine [address] [place] [id number] * Potassium Level (02/17/2024 6:05 AM CDT) Only the most recent of3 resultswithin the time period is included. Potassium Level 4.2 3.4 - 4.5 mmol/L 02/17/2024 7:17 AM CDT [facility] Blood Peripheral blood specimen / Unknown Venipuncture / Unknown 02/17/2024 6:05 AM CDT 02/17/2024 6:22 AM CDT Narrative [facility] - 02/17/2024 7:17 AM CDT Reference range established based on adult population Amilcar Salter MD LAB BLOOD ORDERABLES Fin al Result Performing Organization Address [facility] de Phone Number [facility] Unless otherwise noted, all lab tests performed by: Division of Pathology and Laboratory Medicine [address] [place] [phone] * Magnesium Level (02/17/2024 6:05 AM CDT) Only the most recent of5 resultswithin the time period is included. Magnesium Level 2.0 1.6 - 2.6 mg/dL 02/17/2024 7:17 AM CDT [facility] Blood Peripheral blood specimen / Unknown Venipuncture / Unknown 02/17/2024 6:05 AM CDT 02/17/2024 6:22 AM CDT Amilcar Salter MD LAB BLOOD ORDERABLES Fin al Result Performing Organization Address City/[facility] Co de Phone Number [facility] Unless otherwise noted, all lab tests performed by: Division of Pathology and Laboratory Medicine [address] [place] [phone] * (ABNORMAL) Creatinine (02/17/2024 6:05 AM CDT) Only the most recent of3 resultswithin the time period is included. Creatinine 1.40(H) 0.51 - 0.95 mg/dL 02/17/2024 7:17 AM CDT [facility] eGFR 40(L) >=60 mL/min/1. 73 sq. m 02/17/2024 7:17 AM CDT [facility] Comment: The eGFRcr is calculated with the 2020 CKD-EPI creatinine equation using creatinine, patient's age, and sex for adults 18 years of age and older. Other factors, especially muscle mass, may affect accuracy and need to be considered. According to the Kidney Disease: Improving Global Outcomes (KDIGO) CKD Work Group 2012 Clinical Practice Guideline, chronic kidney disease (CKD) is defined as the abnormalities of kidney structure or function, present for more than 3 months, with implications for health. CKD should be classified by cause, GFR category, and albuminuria category. KDIGO guidelines provide the following GFR categories. Stage / Description / GFR mL/min/1.73 m2: G1* / Normal or high / >= 90 G2* / Mildly decreased / 60-89 G3a / Mildly to moderately decreased / 45-59 G3b / Moderately to severely decreased / 30-44 G4 / Severely decreased / 15-29 G5 / Kidney failure / <15 *In the absence of evidence of kidney damage, neither G1 nor G2 fulfill criteria for CKD. Blood Peripheral blood specimen / Unknown Venipuncture / Unknown 02/17/2024 6:05 AM CDT 02/17/2024 6:22 AM CDT Amilcar Salter MD LAB BLOOD ORDERABLES [facility] al Result [facility] Unless otherwise noted, all lab tests performed by: Division of Pathology and Laboratory Medicine [address] [place] [phone] * Chloride Level (02/17/2024 6:05 AM CDT) Only the most recent of3 resultswithin the time period is included. Chloride 107 98 - 107 mmol/L 02/17/2024 7:17 AM CDT [facility] Blood Peripheral blood specimen / Unknown Venipuncture / Unknown 02/17/2024 6:05 AM CDT 02/17/2024 6:22 AM CDT Narrative [facility] - 02/17/2024 7:17 AM CDT Reference range established based on adult population Amilcar Salter MD LAB BLOOD ORDERABLES Fin al Result Performing Organization Address City/[facility] Co de Phone Number [facility] Unless otherwise noted, all lab tests performed by: Division of Pathology and Laboratory Medicine [address] [place] [id number] * Carbon Dioxide Level (02/17/2024 6:05 AM CDT) Only the most recent of3 resultswithin the time period is included. CO2 22 22 - 29 mmol/L 02/17/2024 7:17 AM CDT [facility] Blood Peripheral blood specimen / Unknown Venipuncture / Unknown 02/17/2024 6:05 AM CDT 02/17/2024 6:22 AM CDT Amilcar Salter MD LAB BLOOD ORDERABLES Fin al Result Performing Organization Address [facility] de Phone Number [facility] Unless otherwise noted, all lab tests performed by: Division of Pathology and Laboratory Medicine [address] [place] [id number] Vicente VUONG Archived Material Retrieval (02/14/2024 9:42 AM CDT) Pathologist [facility] Archived Material The test is to be performed on tissue from case [id number]. The case report, slides, and block(s) for the cited accession were retrieved from archives. The pathologist examined the candidate slides and selected case material appropriate to the specifications of the ordered molecular analysis. Unstained sections from the FFPE block, business center representative H&E slide(s), and/or tumor-mapped smear(s) were prepared and forwarded to the Molecular Diagnostic Laboratory where the subject molecular test will be performed. Results will be reported separately. 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 (SEE COMMENT) . NH/FQ 4 12:57 PM CDT [facility] Comment Immunohistochemical stains show that the neoplastic cells are positive for PAX-8 (diffuse), SOX17 (diffuse), ER (80%, moderate to strong intensity), CA (>90%, strong intensity), and p16 (diffuse). The expression of p53 is aberrant (nuclear over-expression). The histologic and immunohistochemical findings are in keeping with the above diagnosis. 4 12:57 PM CDT [facility] Gross Description A: Recto sigmoid fat margin: Consists of a 0.6 x 0.5 x 0.3 cm nicole-brown cauterized soft tissue fragment. SECTION CODE: A1, specimen submitted in toto for frozen section and permanent.\\ B: Sigmoid colon implant: An excision of fibrofatty tissue measuring 4.6 x 3.1 x 2.6 cm. Sectioning demonstrates pink-nicole to hemorrhagic cut surfaces possibly consistent with tumor. Animal Caregiver sections are submitted to the clinical tissue bank. The specimen is entirely submitted in cassettes B1-B12. MF 4 12:57 PM CDT [facility] Intraoperative Evaluation A: Recto sigmoid fat margin assessment: Scattered atypical cells with crushed artifact. Defer to permanent. PPA/FSE 4 12:57 PM CDT [facility] Biomarker Block(s) T: B2 N: A 4 12:57 PM CDT [facility] Disclaimer "Some tests reported here may have been developed and performance characteristics determined by [facility] Pathology and Laboratory Medicine. These tests have not been specifically cleared or approved by the U.S. Food and Drug Administration. If applicable, controls were reviewed and showed appropriate reactivity." 4 12:57 PM CDT [facility] Tissue (Other) 02/14/2024 8: 35 AM CDT 02/14/2024 8:39 AM CDT Tissue specimen (specimen) (Other) 02/14/2024 9:42 AM CDT 02/14/2024 9:57 AM CDT Deonna Leiva MD LAB PATHOLOGY ORDERABLES [place] [address], * Historical ABORh (02/12/2024 2:15 PM CDT) ABORh O POS 02/11/2024 7:00 PM CDT [facility] Blood Peripheral blood specimen / Unknown 02/12/2024 2:15 PM CDT 02/12/2024 2:15 PM CDT Rhonda PÉREZ BLOOD BANK TEST ORDERABLES Final Result [facility] [address] [place] [address] [id number] [place] [address] * ABID Complete (02/12/2024 8:58 AM CDT) ABID Complete Yes 02/12/2024 5:09 PM CDT [facility] Blood Peripheral blood specimen / Unknown Venipuncture / Unknown 02/12/2024 8:58 AM CDT 02/12/2024 9:07 AM CDT Rhonda PÉREZ BLOOD BANK TEST ORDERABLES Final Result [facility] [address] [place] [address] * TMP Interp Auto Antibody Screen Positive (02/12/2024 8:58 AM CDT) TMP Auto Pos ABSC Interp At the present time, laboratory testing of this patient's red blood cell (RBC) antibody screen is positive. DISPENSING CROSSMATCH COMPATIBLE RBC UNITS TO THIS PATIENT MAY REQUIRE ADDITIONAL TIME. Alloantibodies directed to RBC surface antigens most often form due to exposure to foreign RBCs during previous transfusion(s) / transplantation, during in female patients, or from exposure to environmental antigens similar in structure to RBC antigens. The presence of these actively formed antibodies may fade over time but can reemerge with re-exposure. Passively acquired alloantibodies may be present in a patient who recently received intravenous immunoglobulin (IVIg) and may be detected by this test. Additional new alloantibodies can result from recent transfusion or ; therefore, we require a repeat type and screen every three days in patients with continuing transfusion needs. 02/13/2024 11:55 AM CDT [facility] TMP Signature . 02/13/2024 11:55 AM CDT [facility] Blood Peripheral blood specimen / Unknown Venipuncture / Unknown 02/12/2024 8:58 AM CDT 02/12/2024 9:07 AM CDT us Rhonda PÉREZ BLOOD BANK TEST ORDERABLES Final Result [facility] [place] The [facility] [address] [place] [address] * (ABNORMAL) Comprehensive Metabolic Panel (02/12/2024 8:58 AM CDT) Only the most recent of2 resultswithin the time period is included. Bilirubin Total 0.8 0.0 - 1.2 mg/dL 02/12/2024 9:29 AM CDT [facility] Comment:Indocyanine Green (I CG) may cause falsely elevated bilirubin results. Total and direct bilirubin must not be measured from samples containing indocyanine green. False elevation of total bilirubin can be seen in patients with IgG concentrations above 28 g/L. eGFR 46(L) >=60 mL/min/1. 73 sq. m 02/12/2024 9:29 AM CDT [facility] Comment: The eGFRcr is calculated with the 2020 CKD-EPI creatinine equation using creatinine, patient's age, and sex for adults 18 years of age and older. Other factors, especially muscle mass, may affect accuracy and need to be considered. According to the Kidney Disease: Improving Global Outcomes (KDIGO) CKD Work Group 2012 Clinical Practice Guideline, chronic kidney disease (CKD) is defined as the abnormalities of kidney structure or function, present for more than 3 months, with implications for health. CKD should be classified by cause, GFR category, and albuminuria category. KDIGO guidelines provide the following GFR categories. Stage / Description / GFR mL/min/1.73 m2: G1* / Normal or high / >= 90 G2* / Mildly decreased / 60-89 G3a / Mildly to moderately decreased / 45-59 G3b / Moderately to severely decreased / 30-44 G4 / Severely decreased / 15-29 G5 / Kidney failure / <15 *In the absence of evidence of kidney damage, neither G1 nor G2 fulfill criteria for CKD. Tot Protein 7.3 6.4 - 8.3 gm/dL 02/12/2024 9:29 AM CDT [facility] Calcium Level Total 10.2 8.2 - 10.2 mg/dL 02/12/2024 9:29 AM CDT [facility] Alkaline Phosphatase 58 35 - 104 U/L 02/12/2024 9:29 AM CDT [facility] Albumin Level 4.3 3.5 - 5.2 gm/dL 02/12/2024 9:29 AM CDT [facility] AST 15 <=32 U/L 02/12/2024 9:29 AM CDT [facility] ALT 5 <=33 U/L 02/12/2024 9:29 AM CDT [facility] Sodium Level 139 136 - 145 mmol/L 02/12/2024 9:29 AM CDT [facility] Potassium Level 4.2 3.4 - 4.5 mmol/L 02/12/2024 9:29 AM CDT [facility] Chloride 105 98 - 107 mmol/L 02/12/2024 9:29 AM CDT [facility] CO2 24 22 - 29 mmol/L 02/12/2024 9:29 AM CDT [facility] Anion Gap 10 4 - 14 mmol/L 02/12/2024 9:29 AM CDT [facility] Creatinine 1.24(H) 0.51 - 0.95 mg/dL 02/12/2024 9:29 AM CDT [facility] BUN 23 6 - 23 mg/dL 02/12/2024 9:29 AM CDT [facility] Glucose Level 107(H) 70 - 99 mg/dL 02/12/2024 9:29 AM CDT [place] Comment: Effective 04/19/16, the glucose reference intervals have been updated based on [place] [employer] guidelines (Standards of Medical Care in Diabetes 2016. Diabetes Care 2016; 39: S13-S22). Fasting blood glucose: Normal: 70-99 mg/dL Impaired fasting glucose (increased risk for diabetes or pre-diabetes): 100-125 mg/dL Diabetes mellitus: >/=126 mg/dL Random blood glucose: Normal: 70-199 mg/dL Note: Random glucose >100 mg/dL is associated with increased risk for diabetes. Blood Peripheral blood specimen / Unknown Venipuncture / Unknown 02/12/2024 8:58 AM CDT 02/12/2024 9:07 AM CDT us Rhonda PÉREZ LAB BLOOD ORDERABLES Final Resul t [facility] [address], [address] [place] [address] * TMP Interpretation Antibody Identification (02/12/2024 8:58 AM CDT) TMP ABID Interpretation At the present time, laboratory testing of this patient's red blood cell (RBC) antibody screen is positive. DISPENSING CROSSMATCH COMPATIBLE RBC UNITS TO THIS PATIENT MAY REQUIRE ADDITIONAL TIME. This patient has formed an alloantibody against an unidentified RBC antigen(s). We are unable to determine if specific alloantibodies are present or if the unidentified antibodies are clinically significant. Alloantibodies directed to RBC surface antigens most often form due to exposure to foreign RBCs during previous transfusion(s) / transplantation, during in female patients, or from exposure to environmental antigens similar in structure to RBC antigens. The presence of these actively formed antibodies may fade over time but can reemerge with re-exposure. Passively acquired alloantibodies may be present in a patient who recently received intravenous immunoglobulin (IVIg) and may be detected by this test. Additional new alloantibodies can result from recent transfusion or ; therefore, we require a repeat type and screen every three days in patients with continuing transfusion needs. 02/13/2024 11:55 AM CDT [facility] TMP Signature . 02/13/2024 11:55 AM CDT [facility] Blood Peripheral blood specimen / Unknown Venipuncture / Unknown 02/12/2024 8:58 AM CDT 02/12/2024 9:07 AM CDT us Rhonda PÉREZ BLOOD BANK TEST ORDERABLES Final Result [facility] [address] [place] [address] * aPTT (02/12/2024 8:58 AM CDT) Activated PTT 35.3 24.1 - 35.5 second(s) 02/12/2024 9:40 AM CDT [place] Blood Peripheral blood specimen / Unknown Venipuncture / Unknown 02/12/2024 8:58 AM CDT 02/12/2024 9:07 AM CDT Narrative [place] - 02/12/2024 9:40 AM CDT Repeated and verified. Rhonda PÉREZ LAB BLOOD ORDERABLES Final Resul t [facility] [address], [address] [place] [address] * Antibody Identification (02/12/2024 8:58 AM CDT) ABID 1 Ab Und Specificity 02/12/2024 5:09 PM CDT [facility] Blood Peripheral blood specimen / Unknown Venipuncture / Unknown 02/12/2024 8:58 AM CDT 02/12/2024 9:07 AM CDT Rhonda PÉREZ BLOOD BANK TEST ORDERABLES Final Result [facility] [address] [place] [address] * (ABNORMAL) Type and Screen (02/12/2024 8:58 AM CDT) ABORh O POS 02/12/2024 8:45 AM CDT [facility] ABSC Positive(A) 02/12/2024 8:45 AM CDT [facility] Clot Expiration 02/15/2024 23:59 02/12/2024 8:45 AM CDT [facility] Historical Record Check Complete 02/12/2024 8:45 AM CDT [facility] Blood Peripheral blood specimen / Unknown Venipuncture / Unknown 02/12/2024 8:58 AM CDT 02/12/2024 9:07 AM CDT Rhonda PÉREZ BLOOD BANK TEST ORDERABLES Final Result [facility] [address] [place] [address] * (ABNORMAL) TSH (02/12/2024 8:58 AM CDT) Only the most recent of2 resultswithin the time period is included. Thyroid Stimulating Hormone 4.98(H) 0.27 - 4.20 mcunit/mL 02/12/2024 9:41 AM CDT [place] Blood Peripheral blood specimen / Unknown Venipuncture / Unknown 02/12/2024 8:58 AM CDT 02/12/2024 9:07 AM CDT Rhonda PÉREZ LAB BLOOD ORDERABLES Final Resul t Performing Organization Address City/[facility]/ZIP Co de Phone Number [address], [address] [address] * Free T4 (02/12/2024 8:58 AM CDT) Only the most recent of2 resultswithin the time period is included. Pathologist [facility] T4 (Thyroxine) Free 1.69 0.93 - 1.70 ng/dL 02/12/2024 9:41 AM CDT [place] Blood Peripheral blood specimen / Unknown Venipuncture / Unknown 02/12/2024 8:58 AM CDT 02/12/2024 9:07 AM CDT Rhonda PÉREZ LAB BLOOD ORDERABLES Final Resul t [address], [address] [address] * Hemoglobin A1c (02/12/2024 8:58 AM CDT) Only the most recent of2 resultswithin the time period is included. Pathologist [facility] Hemoglobin A1c 5.1 4.3 - 5.6 % 9:22 AM CDT [facility] Blood Peripheral blood specimen / Unknown Venipuncture / Unknown 02/12/2024 8:58 AM CDT 02/12/2024 9:07 AM CDT Narrative [facility] - 02/12/2024 9:22 AM CDT HbA1c values >=6.5% are diagnostic of diabetes mellitus. Diagnosis should be confirmed by repeat testing. Therapeutic Action suggested: >8.0% HbA1c; Goal of therapy: <7.0% HbA1c us Rhonda PÉREZ LAB BLOOD ORDERABLES Final Resul t [facility] [address], [address] [place] [address] * Lipid panel (02/04/2024 4:36 PM CDT) Cholesterol Total 145 <=199 mg/dL 02/04/2024 5:40 PM CDT [facility] Comment: ATP III Classification of Total Cholesterol - Primary Target of Therapy (in mg/dL): <200 Desirable 200-239 Borderline high >=240 High Triglyceride 75 <=149 mg/dL 02/04/2024 5:40 PM CDT [facility] Comment: ATP III Classification of Serum Triglycerides Primary Target of Therapy (in mg/dL): <150 Normal 150-199 Borderline high 200-499 High >=500 Very high Non-fasting triglycerides >200 mg/dL may be followed up with a fasting Lipid Panel. Calculated LDL-C may be falsely decreased when non-fasting triglycerides >200 mg/dL. HDL Cholesterol 68 >=40 mg/dL 02/04/2024 5:40 PM CDT [facility] LDL Cholesterol 62 <=100 mg/dL 02/04/2024 5:40 PM CDT [facility] Comment: ATP III Classification of LDL Cholesterol Primary Target of Therapy (in mg/dL): <100 Optimal 100-129 Near optimal/above optimal 130-159 Borderline high 160-189 High >=190 Very high Very Low Density Lipoprotein 15 mg/dL 02/04/2024 5:40 PM CDT [facility] Is patient fasting? Yes 02/03 5:40 PM CDT [facility] Blood Peripheral blood specimen / Unknown Venipuncture / Unknown 02/04/2024 4:36 PM CDT 02/04/2024 4:56 PM CDT us Loren PÉREZ LAB BLOOD ORDERABLES Final R esult Performing Organization Address City/[facility]/ZIP Co de Phone Number [facility] Unless otherwise noted, all lab tests performed by: Division of Pathology and Laboratory Medicine [address] [address] Unless otherwise noted, all lab tests performed by: Division of Pathology and Laboratory Medicine [address] [place] [address] * EKG, 12-Lead (Scheduled) (02/04/2024) us MARICHUY Chou APRN ECG ORDERABLES Fi nal Result Performing Organization Address [facility] Co de Phone Number [facility] IECG * MRI pelvis with and without contrast (11/23/2023 6:01 PM FORENSICS ANALYST) Anatomical Region Laterality Modality Pelvis Magnetic Resonan ce 11/24/2023 9:42 AM FORENSICS ANALYST Impressions 11/24/2023 9:58 AM FORENSICS ANALYST The left lower quadrant peritoneal implant is closely abutting and possibly infiltrating the sigmoid colon and is slowly increasing in size since multiple prior studies including 04/19/2023. ACTIONABLE ITEMS/RECOMMENDATIONS*: See impression. Narrative 11/24/2023 9:58 AM FORENSICS ANALYST FULL RESULT: Examination: MRI PELVIS W WO CONTRAST, 11/23/2023 6:01 PM. Clinical History: Serous cystadenocarcinoma of the uterine endometrium, status post hysterectomy, bilateral salpingectomy nephrectomy, sentinel lymph node mapping and biopsies, and omental biopsy on 11/28/2016 followed by adjuvant carboplatin and paclitaxel between 2016 and April 2017. The patient received vaginal cuff brachytherapy in January 2017. More recently, the patient is diagnosed with biopsy proven left pelvic recurrence in October 2021, treated with carboplatin between 01/13/2022 and 06/23/2022. 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 Findings: Postsurgical changes of hysterectomy and bilateral oophorectomy are again seen. No definite local recurrence is seen in the vaginal cuff. No suspicious iliac chain lymphadenopathy is seen. The recurrent left lower quadrant pelvic peritoneal implant closely abutting and possibly infiltrating the sigmoid colon now measures 3.9 x 2.2 cm and is slowly increasing in size since multiple prior studies. This previously measured 3.1 x 1.8 cm on 10/26/2023, 2.1 x 1.4 cm on 07/16/2023 and 1.3 x 1 cm on 04/19/2023. The urinary bladder is well-distended and is unremarkable. No suspicious osseous lesions are identified. Procedure Note Maria D Pickard MD - 11/24/2023 FULL RESULT: Examination: MRI PELVIS W WO CONTRAST, 11/23/2023 6:01 PM. Clinical History: Serous cystadenocarcinoma of the uterine endometrium,status post hysterectomy, bilateral salpingectomy nephrectomy, sentinellymph node mapping and biopsies, and omental biopsy on 11/28/2016 followedby adjuvant carboplatin and paclitaxel between 2016 and April2017. The patient received vaginal cuff brachytherapy in January 2017. Morerecently, the patient is diagnosed with biopsy proven left pelvicrecurrence in October 2021, treated with carboplatin between 01/13/2022nd 06/23/2022. 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 Findings: Postsurgical changes of hysterectomy and bilateral oophorectomyare again seen. No definite local recurrence is seen in the vaginalcuff. No suspicious iliac chain lymphadenopathy is seen. The recurrent left lower quadrant pelvic peritoneal implant closelyabutting and possibly infiltrating the sigmoid colon now measures 3.9 x2.2 cm and is slowly increasing in size since multiple prior studies. Thispreviously measured 3.1 x 1.8 cm on 10/26/2023, 2.1 x 1.4 cm on 07/16/2023nd 1.3 x 1 cm on 04/19/2023. The urinary bladder is well-distended and is unremarkable. No suspicious osseous lesions are identified. IMPRESSION: The left lower quadrant peritoneal implant is closely abutting andpossibly infiltrating the sigmoid colon and is slowly increasing in sizesince multiple prior studies including 04/19/2023. ACTIONABLE ITEMS/RECOMMENDATIONS*: See impression. us Deonna Leiva MD [facility] MRI ORDERABLES Final Res ult * Echocardiogram 2D Complete (11/23/2023 2:47 PM FORENSICS ANALYST) EF 47 ISCV 11/23/2023 2:28 PM FORENSICS ANALYST Narrative ISCV - 11/23/2023 7:48 PM FORENSICS ANALYST Echocardiographic Report Interpretation Summary A complete two-dimensional transthoracic echocardiogram was performed (2D, M- mode, Spectral and color Doppler). Compared to prior study, changes are noted. The left ventricle is normal in size. Left ventricular systolic function is mildly reduced. LV ejection fraction calculated using the bi-plane method of disks is 47 %. There is mild global hypokinesis of the left ventricle. The right ventricle is normal in size and function. Right ventricular systolic pressure is normal. There is no pericardial effusion. Left Ventricle: The left ventricle is normal in size. There is normal left ventricular wall thickness. LV ejection fraction calculated using the bi-plane method of disks is 47 %. Left ventricular systolic function is mildly reduced. There is mild global hypokinesis of the left ventricle. I WMSI = 2.00 % Normal = 0 Abnormal global longitudinal peak systolic value X - Cannot 1 - Normal 2 - 3 - Akinetic 4 - Dyskinetic Interpret Hypokinetic 5 - Aneurysmal 3D imaginD volumes were not performed in this study. Cardiac Mechanics/Speckle Tracking Imaging: Abnormal global longitudinal peak systolic value. Strain Imaging was performed; GLPS avg = -11.2%. Diastology: Unable to evaluate due to rhythm. Right Ventricle: The right ventricle is normal in size and function. Normal RV systolic function using TAPSE criteria. Atria: The left atrial size is normal. Right atrial size is normal. Mitral Valve: Mild thickening changes are noted. Tricuspid Valve: The tricuspid valve is not well visualized, but is grossly normal. There is mild tricuspid regurgitation. Estimated RVSP is 25-30mmHg. Right ventricular systolic pressure is normal. Aortic Valve: The aortic valve opens well. No hemodynamically significant valvular aortic stenosis. Pulmonic Valve: The pulmonic valve is not well visualized. Trace pulmonic valvular regurgitation. Great Vessels: The aortic root is normal size. The inferior vena cava demonstrates normal size and normal respiratory variation. Pericardium/Pleural: There is no pericardial effusion. An echo lucent space is noted consistent with prominent pericardial fat pad. Preliminary Reviewer Preliminary Interpretation: Janice Saucedo MD. MMode/2D Measurements IVSd: 0.90 cm LVIDd: 4.7 cm LVIDs: 3.2 cm LVPWd: 0.93 cm FS: 31.8 % Ao root diam: 2.8 cm Ao root area: 6.1 cm2 LA dimension: 4.2 cm LVOT diam: 2.1 cm EDV(MOD-A4C): 69.1 ml ESV(MOD-A4C): 38.1 ml LVOT area: 3.5 cm2 EF(MOD-A4C): 44.8 % EDV(MOD-A2C): 46.0 ml ESV(MOD-A2C): 24.0 ml EDV(MOD-bp): 57.0 ml EF(MOD-A2C): 47.8 % ESV(MOD-bp): 30.1 ml EF(MOD-bp): 47.2 % LAV(MOD-A2C): 59.1 ml EDV (MOD-bp) Index: 29.7 ml/m2 LAV(MOD-A4C): 57.2 ml LAV(MOD-bp): 61.2 ml LAV(MOD-bp) Indexed: 31.9 ml/m2 ESV (MOD-bp) Index: 15.7 ml/m2 RWT: 0.39 cm TAPSE (>1.6): 1.9 cm Doppler Measurements MV V2 max: 97.7 cm/sec MV P1/2t max cassidy: 99.7 cm/sec MV max P.8 mmHg MV P1/2t: 57.2 msec MV V2 mean: 57.7 cm/sec MVA(P1/2t): 3.8 cm2 MV mean P.6 mmHg MV dec slope: 509.8 cm/sec2 MV V2 VTI: 13.6 cm MVA(VTI): 2.8 cm2 Ao V2 max: 125.2 cm/sec LV V1 max P.3 mmHg Ao max P.3 mmHg LV V1 mean P.95 mmHg Ao V2 mean: 86.0 cm/sec LV V1 max: 75.7 cm/sec Ao mean P.3 mmHg LV V1 mean: 44.6 cm/sec Ao V2 VTI: 19.3 cm LV V1 VTI: 10.9 cm JONY(I,D): 2.0 cm2 JONY(V,D): 2.1 cm2 SV(LVOT): 38.6 ml PA V2 max: 120.4 cm/sec PA max P.8 mmHg PA V2 mean: 74.3 cm/sec PA mean P.5 mmHg PA V2 VTI: 17.0 cm PI max cassidy: 216.1 cm/sec TR max cassidy: 241.9 cm/sec PI max P.7 mmHg TR max P.4 mmHg PI dec slope: 132.0 cm/sec2 RVSP(TR): 26.4 mmHg RAP systole: 3.0 mmHg JONY Index (I,D): 1.0 JONY Index (V,D): 1.1 Dimensionless Index: 0.60 Procedure Note Julián Choudhary MD - 11/23/2023 Echocardiographic Report Interpretation Summary A complete two-dimensional transthoracic echocardiogram was performed (2D,M- mode, Spectral and color Doppler). Compared to prior study, changes arenoted. The left ventricle is normal in size. Left ventricular systolic functionis mildly reduced. LV ejection fraction calculated using the bi-plane method of disks is 47%. There is mild global hypokinesis of the left ventricle. The right ventricle is normal in size and function. Right ventricular systolic pressure is normal. There is no pericardial effusion. Left Ventricle: The left ventricle is normal in size. There is normal left ventricularwall thickness. LV ejection fraction calculated using the bi-plane methodof disks is 47 %. Left ventricular systolic function is mildly reduced.There is mild global hypokinesis of the left ventricle. I WMSI = 2.00 % Normal = 0 Abnormal global longitudinal peak systolic value X - Cannot 1 - Normal 2 - 3 - Akinetic 4 - Dyskinetic Interpret Hypokinetic 5 - Aneurysmal 3D imaginD volumes were not performed in this study. Cardiac Mechanics/Speckle Tracking Imaging: Abnormal global longitudinal peak systolic value. Strain Imaging wasperformed; GLPS avg = -11.2%. Diastology: Unable to evaluate due to rhythm. Right Ventricle: The right ventricle is normal in size and function. Normal RV systolicfunction using TAPSE criteria. Atria: The left atrial size is normal. Right atrial size is normal. Mitral Valve: Mild thickening changes are noted. Tricuspid Valve: The tricuspid valve is not well visualized, but is grossly normal. Thereis mild tricuspid regurgitation. Estimated RVSP is 25-30mmHg. Rightventricular systolic pressure is normal. Aortic Valve: The aortic valve opens well. No hemodynamically significant valvularaortic stenosis. Pulmonic Valve: The pulmonic valve is not well visualized. Trace pulmonic valvularregurgitation. Great Vessels: The aortic root is normal size. The inferior vena cava demonstrates normalsize and normal respiratory variation. Pericardium/Pleural: There is no pericardial effusion. An echo lucent space is noted consistentwith prominent pericardial fat pad. Preliminary Reviewer Preliminary Interpretation: Janice Saucedo MD. MMode/2D Measurements IVSd: 0.90 cmLVIDd: 4.7 cm LVIDs: 3.2 cm LVPWd: 0.93 cm FS: 31.8 %Ao root diam: 2.8 cm Ao root area: 6.1 cm2 LA dimension: 4.2 cm LVOT diam: 2.1 cmEDV(MOD-A4C): 69.1 ml ESV(MOD-A4C): 38.1 ml LVOT area: 3.5 cm2EF(MOD-A4C): 44.8 % EDV(MOD-A2C): 46.0 ml ESV(MOD-A2C): 24.0 mlEDV(MOD-bp): 57.0 ml EF(MOD-A2C): 47.8 %ESV(MOD-bp): 30.1 ml EF(MOD-bp): 47.2 % LAV(MOD-A2C): 59.1 mlEDV (MOD-bp) Index: 29.7 ml/m2 LAV(MOD-A4C): 57.2 ml LAV(MOD-bp): 61.2 ml LAV(MOD-bp) Indexed: 31.9 ml/m2 ESV (MOD-bp) Index: 15.7 ml/m2RWT: 0.39 cm TAPSE (>1.6): 1.9 cm Doppler Measurements MV V2 max: 97.7 cm/secMV P1/2t max cassidy: 99.7 cm/sec MV max P.8 mmHgMV P1/2t: 57.2 msec MV V2 mean: 57.7 cm/secMVA(P1/2t): 3.8 cm2 MV mean P.6 mmHgMV dec slope: 509.8 cm/sec2 MV V2 VTI: 13.6 cm MVA(VTI): 2.8 cm2 Ao V2 max: 125.2 cm/secLV V1 max P.3 mmHg Ao max P.3 mmHgLV V1 mean P.95 mmHg Ao V2 mean: 86.0 cm/secLV V1 max: 75.7 cm/sec Ao mean P.3 mmHgLV V1 mean: 44.6 cm/sec Ao V2 VTI: 19.3 cmLV V1 VTI: 10.9 cm JONY(I,D): 2.0 cm2 JONY(V,D): 2.1 cm2 SV(LVOT): 38.6 mlPA V2 max: 120.4 cm/sec PA max P.8 mmHg PA V2 mean: 74.3 cm/sec PA mean P.5 mmHg PA V2 VTI: 17.0 cm PI max cassidy: 216.1 cm/secTR max cassidy: 241.9 cm/sec PI max P.7 mmHgTR max P.4 mmHg PI dec slope: 132.0 cm/zrj4JSUW(TR): 26.4 mmHg RAP systole: 3.0 mmHgAVA Index (I,D): 1.0 JONY Index (V,D): 1.1Dimensionless Index: 0.60 us Rhonda PÉREZ CV ECHO ORDERABLES Final Result ISCV * PETCT F18 FDG (Fluorodeoxyglucose) without contrast (10/26/2023 11:28 AM FORENSICS ANALYST) Anatomical Region Laterality Modality Whole Body Positron Emissio n Tomography (PET) 10/29/2023 11:4 5 AM FORENSICS ANALYST Impressions 10/30/2023 8:21 AM FORENSICS ANALYST Interval increase in the size and metabolic activity of the left lower quadrant implant. ACTIONABLE ITEMS/RECOMMENDATIONS*: None. (Please note: This document was created using a voice-recognition transcribing system, and incorrect words/phrases may have been inadvertently missed at proof-reading. Please contact me for clarification. If additional information becomes available, an addendum will be issued. Please see full report. Thank you.) Narrative 10/30/2023 8:21 AM FORENSICS ANALYST FULL RESULT: Examination: 18F-FDG-PET/CT without contrast, 10/26/2023 11:28 AM Clinical History: Serous cystadenocarcinoma, NOS of endometrium [C54.1 (ICD-10-CM)] Indication: Restaging study for subsequent treatment strategy. Comparison: 18F-FDG-PET/CT without contrast, 07/16/2023 . Technique: F-18 fluorodeoxyglucose 11.6 mCi was administered intravenously via right forearm. To allow for distribution and uptake of radiotracer, the patient was asked to rest quietly for approximately 60-90 minutes. PET/CT imaging was performed from the vertex to thighs. CT scanning was done for attenuation correction, image registration, and diagnosis with scan parameters optimized to minimize radiation exposure to the patient. SUV measurements are reported as maximum SUV based on body weight unless otherwise specified. Findings: Head and Neck: Physiologic uptake seen in the brain. There is no evidence of FDG avid mass or lymph node. Chest: No definite evidence of FDG avid pulmonary nodule. Small nodules are identified (for example image 191). Mild ground-glass opacities could be due to phase of respiration or infection inflammation, to be followed. No evidence of pleural effusion. No pneumothorax. The heart is unchanged in size. There are coronary artery calcifications. Atherosclerotic changes of the aorta. No pericardial effusion. No evidence of FDG avid lymph node. Abdomen and Pelvis: The nodule in the left pelvis measures 3.1 x 1.8 cm with an SUV max of 26.21 (image 340). Postsurgical changes from hysterectomy. No FDG avid hepatic lesions are identified. Postsurgical changes from cholecystectomy. The spleen is unchanged. No definite evidence of FDG avid pancreatic lesion. Bilateral renal cysts are identified. There is diverticulosis. Physiologic activity in the bladder. Atherosclerotic changes of the vessels. No other evidence of FDG avid lymphadenopathy. Small nodes are present. Musculoskeletal: A 2.7 cm cystic lesion in the left gluteal region remains stable and could represent sebaceous cyst. Degenerative changes are present. There are no FDG avid bony lesions. Procedure Note Yandy Trujillo MD - 10/30/2023 FULL RESULT: Examination: 18F-FDG-PET/CT without contrast, 10/26/2023 11:28 AM Clinical History: Serous cystadenocarcinoma, NOS of endometrium [C54.1(ICD-10-CM)] Indication: Restaging study for subsequent treatment strategy. Comparison: 18F-FDG-PET/CT without contrast, 07/16/2023 . Technique: F-18 fluorodeoxyglucose 11.6 mCi was administered intravenously via rightforearm. To allow for distribution and uptake of radiotracer, the patientwas asked to rest quietly for approximately 60-90 minutes. PET/CT imagingwas performed from the vertex to thighs. CT scanning was done forattenuation correction, image registration, and diagnosis with scanparameters optimized to minimize radiation exposure to the patient. SUVmeasurements are reported as maximum SUV based on body weight unlessotherwise specified. Findings: Head and Neck: Physiologic uptake seen in the brain. There is no evidence of FDG avidmass or lymph node. Chest: No definite evidence of FDG avid pulmonary nodule. Small nodules areidentified (for example image 191). Mild ground-glass opacities could bedue to phase of respiration or infection inflammation, to be followed. Noevidence of pleural effusion. No pneumothorax. The heart is unchanged in size. There are coronary artery calcifications.Atherosclerotic changes of the aorta. No pericardial effusion. No evidence of FDG avid lymph node. Abdomen and Pelvis: The nodule in the left pelvis measures 3.1 x 1.8 cm with an SUV max of26.21 (image 340). Postsurgical changes from hysterectomy. No FDG avid hepatic lesions are identified. Postsurgical changes fromcholecystectomy. The spleen is unchanged. No definite evidence of FDG avid pancreatic lesion. Bilateral renal cysts are identified. There is diverticulosis. Physiologic activity in the bladder. Atherosclerotic changes of the vessels. No other evidence of FDG avidlymphadenopathy. Small nodes are present. Musculoskeletal: A 2.7 cm cystic lesion in the left gluteal region remains stable and couldrepresent sebaceous cyst. Degenerative changes are present. There are noFDG avid bony lesions. IMPRESSION: Interval increase in the size and metabolic activity of the left lowerquadrant implant. ACTIONABLE ITEMS/RECOMMENDATIONS*: None. (Please note: This document was created using a voice-recognitiontranscribing system, and incorrect words/phrases may have beeninadvertently missed at proof-reading. Please contact me forclarification. If additional information becomes available, an addendumwill be issued. Please see full report. Thank you.) Rhonda PÉREZ IMG PETCT ORDERABLES Final Resul t after 09/19/2023 Insurance A[employer] MEDICARE HMO AETNA MEDICARE HMO Advance Directives * Full Code (Latest Code Status on File) Date Activated Date Inactivated Comments 02/14/2024 11:10 AM 02/17/2024 3:12 PM * Full Code Date Activated Date Inactivated Comments 11/28/2016 11:38 AM 11/29/2016 1:23 PM Care Teams Pulverizer Feeder Relationship Specialty Start Date End Date Deonna Leiva MD [email or web address] PCP - General Gynecologic Medical Oncology 10/30/16 06/10/24 Denzel Pritchett "MD Eli [email or web address] PCP - External Referring Obstetrics/Gynecology 10/30/16 Mateo Chavez MD [address] [place] [id number] [email or web address] PCP - External Primary Care Provider Internal Medicine 11/08/16 Artem Castellanos MD [address] [place] [id number] [email or web address] PCP - General Gynecological Oncology 06/11/24 David Dobson MD [address] [place] [id number] Consulting Physician Cardiology 12/23/21 Susan Baird MD [address] [place] [id number] [email or web address] Consulting Physician Internal Medicine 11/18/21 Star Treviño MD [address] [place] [id number] [email or web address] Consulting Physician Cardiology 11/21/16 Nolberto Israel MD [address] [place] [phone] [email or web address] Consulting Physician Pain Management 12/23/21 Ophelia Craft PA [address] [place] [phone] [email or web address] Physician Hybrid [employer]ivatives Trader Surgical Oncology 02/14/18 Pao Irvin MD [address] [place] [phone] [email or web address] Consulting Physician Internal Medicine 02/04/24
--- NOTE | 2024-09-18 15:52 | RAD REPORT ---
EXAMINATION: CT ABDOMEN AND PELVIS WITHOUT CONTRAST CLINICAL INDICATION: ABD PAIN TECHNIQUE: CT abdomen and pelvis was performed, without IV contrast, as per department protocol. Axia l, sagittal and coronal reconstructions were obtained. One or more of the following dose reduction techniques were used: Automated exposure control, adjustment of the mA and kV according to the patien t size, and iterative reconstruction. Unless otherwise specified, incidental findings do not require dedicated imaging follow-up. COMPARISON: 05/27/2018 FINDINGS: The lack of intravenous contrast limits the sensitivity of this exam for evaluation of solid visceral organs, vascular structures, and retroperitoneum. LOWER CHEST: Tiny nodule right middle lobe. Small hiatal hernia. LIVER:Normal in size and contour. No focal lesion. Cholecystectomy clips. SPLEEN: Normal size. No focal lesion. PANCREAS: No mass, ductal dilation, or marybeth-pancreatic fluid. ADRENALS: Normal; no mass. KIDNEYS AND URETERS: Normal size and contour. No hydronephrosis. Bilateral renal cysts, benign in kymberly earance. URINARY BLADDER: Normal contour. GASTROINTESTINAL TRACT: Multiple dilated loops of small intestine are seen in the central and upper a bdomen compatible with developing moderately severe mechanical small bowel obstruction. The largest bowel loop is dilated to 5 cm. No free air is seen in the abdomen. APPENDIX: Normal appendix. LYMPH NODES: No lymphadenopathy. MUSCULOSKELETAL: No acute or suspicious osseous abnormality. ADDITIONAL FINDINGS: There is an irregular mass in the left lower quadrant fat measuring 10.6 x 9.4 c m. IMPRESSION: Irregular left pelvic mass measuring 10.6 x 9.4 cm likely neoplastic. Moderate developing mechanical small bowel obstruction. Clear point of transition is difficult to heavenly ntified but likely in the left lower quadrant.
[2024-09-18] MEDS ORDERED: ONDANSETRON 4 MG/2 ML VIAL ONE ×2 (16:14→16:49)
[2024-09-18] MEDS ORDERED: MORPHINE 4 MG/ML SYR ONE (16:14)
[2024-09-18] MEDS ORDERED: NA CHLORIDE 0.9% 500 ML ONE (16:14)
[2024-09-18 16:30] LABS: Absolute Eosinophils 0.2 K/uL (0-0.5); Absolute Lymphocytes (CBC) 0.7 K/uL (0.7-4.9); Absolute Monocytes 0.6 K/uL (0.1-1.3); Basophils % 0.2 % (0-1.3); Eosinophils % 1.6 % (0-4.4); Hematocrit 40.6 % (36.0-45.0); Hemoglobin 13.6 g/dL (12.0-15.0); Lymphocytes % 7.8 % (15.3-44.8); MCH 31.1 pg (27.0-35.0); MCHC 33.6 g/dL (32.0-36.0); MCV 92.4 fL (80-100); MPV 7.8 fL (7.6-11.3); Monocytes % 6.4 % (3.3-12.3); Platelets 211 thou/uL (152-406); RBC Red Blood Cell Count 4.39 M/uL (3.86-4.86); Red Cell Distribution Width 13.7 % (12.1-15.2)
[2024-09-18 16:48] LABS: Albumin 3.4 g/dL (3.4-5.0); Albumin/Globulin Ratio 0.7 (1.1-1.8); Anion Gap 8.2 mEq/L (5.0-15.0); Bilirubin Total 1.2 mg/dL (0.2-1.0); Globulin 5.2 g/dL (2.3-3.5); Potassium 4.2 mEq/L (3.5-5.1); Protein, Total 8.6 g/dL (6.4-8.2)
[2024-09-18 16:50] LABS: SARS-CoV-2 Antigen CONTROL BLUE LINE VIS/BG OK; SARS-CoV-2 Antigen Rapid Res Negative (Negative)
[2024-09-18] MEDS ORDERED: LIDOCAINE HCL JELLY 2% 6 ML SYRINGE TOP ONE (16:50)
[2024-09-18] MEDS ORDERED: FENTANYL CITR 100 MCG/2 ML ONE ×2 (16:50→20:14)
--- NOTE | 2024-09-18 16:51 | EDPHYS ---
Physician Documentation [facility] Name: Misa Claros Age: 74 yrs Sex: Female : 1950 Arrival Date: 09/18/2024 Time: 14:10 Bed 26 Private MD: ED Physician Jadiel Rae HPI: 09/18 15:07 This 74 yrs old Black Female presents to ER via Ambulatory with complaints of Abdominal ec2 Pain, Vomiting/Diarrhea. 15:07 Patient arrives today for evaluation of epigastric abdominal pain. Reports history of ec2 of previous atrial fibrillation, hypertension. Reports that she has been experiencing upper abdominal pain for the past several days with associated nausea, no vomiting, has had multiple bouts of diarrhea as well. No urinary complaints. . Historical: - Allergies: 15:05 Codeine; cm10 15:05 Iodine; cm10 15:05 Morphine; cm10 - Home Meds: 15:05 Eliquis 5 mg Oral tab 1 tab 2 times per day [Active]; Entresto 24-26 mg Oral tab 1 tab cm10 2 times per day [Active]; spironolactone 50 mg oral tablet 1 tab [Active]; metoprolol succinate 25 mg oral Tablet, Extended Release 24 hr 1 tab daily [Active]; - PMHx: 15:05 Atrial fibrillation; Back pain; Hypertension; sciatica; uterine cancer; diagnosed a cm10 year ago; - PSHx: 15:05 Total abdominal hysterectomy; cm10 - Immunization history:: Adult Immunizations up to date. - Infectious Disease History:: Denies. - Social history:: Smoking status: Patient denies any tobacco usage or history of. ROS: 15:08 Constitutional: as per hpi ec2 Exam: 15:08 Constitutional: GEN: NAD Head: atraumatic Eyes: EOMI Ears: External ears are ec2 normal. CV: regular rate LUNGS: no respiratory distress ABD: non-distended, soft nontender in epigastrium, not guarding, not rigid SKIN: no evidence of rashes MSK: no evidence of trauma Vital Signs: 15:04 BP 104 / 64; Pulse 65; Resp 16; Temp 97(TE); Pulse Ox 99% on R/A; Weight 86.64 kg; cm10 Height 5 ft. 3 in. ; Pain 8/10; 17:30 BP 102 / 61; Pulse 133; Resp 16; Pulse Ox 99% on R/A; jb4 18:00 BP 96 / 55; Pulse 97; Resp 16; Pulse Ox 100% on R/A; jb4 20:18 BP 111 / 66; Pulse 93; Resp 19; Pulse Ox 99% on R/A; jb4 21:15 BP 106 / 79; Pulse 98; Resp 19; Pulse Ox 100% on R/A; jb4 15:04 Body Mass Index 33.83 (86.64 kg, 160.02 cm) cm10 15:04 Pain Scale: Adult cm10 MDM: 15:01 Medical Screening Exam initiated ec2 15:08 Data reviewed: vital signs, nurses notes. ED course: Patient arrives today for ec2 epigastric abdominal pain. Examination yields abdominal findings above. Will obtain lab work, urine studies, CT imaging. Differential clues processes such as pancreatitis, gastroenteritis, urinary tract infection.. 16:28 ED course: CT imaging shows developing small bowel obstruction, mechanical, likely from ec2 pelvic mass which is BUSINESS ADMINISTRATION PROGRAM CHAIR in origin. I discussed the case with radiology as well as general surgery and will transfer the patient for gynecologic available service.. 16:52 ED course: Metabolic profile shows slight hyponatremia, renal dysfunction with ec2 creatinine 1.81 and GFR of 29. Lipase within normal ranges. Flu and COVID testing negative. Will transfer given gynecological mass, patient being treated at [facility] for the same mass.. 17:20 ED course: [facility] reports they are at saturation and not accepting transfers, will ec2 attempt other facility.. 17:40 ED course: EKG independently reviewed and interpreted by me, shows atrial fibrillation, ec2 rate of 118, no acute ST segment elevations, intervals are nonactionable. Will give the patient metoprolol as she is on metoprolol p.o. daily.. 20:06 ED course: Discussed case with [facility] Nelly Tamayo ER physician and Dr. Henderson, their general sd2 surgeon, who accept the patient for transfer at this time. . 09/18 15:07 Order name: CBC with Diff; Complete Time: 16:35 ec2 09/18 15:07 Order name: CMP; Complete Time: 16:52 ec2 09/18 15:07 Order name: Lipase; Complete Time: 16:52 ec2 09/18 15:07 Order name: Urinalysis w/ reflexes; Complete Time: 17:31 ec2 09/18 15:08 Order name: Influenza Screen (a \T\ B); Complete Time: 16:53 ec2 09/18 15:08 Order name: SARS RAPID; Complete Time: 16:52 ec2 09/18 15:07 Order name: CT Abd/Pelvis - Without Contrast; Complete Time: 16:17 ec2 09/18 17:28 Order name: CXR XRAY; Complete Time: 20:00 ec2 09/18 15:07 Order name: IV Saline Lock; Complete Time: 16:27 ec2 09/18 15:07 Order name: Labs collected and sent; Complete Time: 16:27 ec2 09/18 17:28 Order name: EKG - Nurse/Tech; Complete Time: 17:40 ec2 Administered Medications: 16:27 Drug: NS 0.9% IV 500 ml 500 ml IV at 1 bolus once; to be given as a bolus over 30 jb4 minutes Volume: 500 ml; Route: IV; Rate: 1 bolus; Site: left antecubital; 16:35 Not Given (Patient Refused): ondansetron 4 mg IVP once; over 2 minutes jb4 16:36 Not Given (Patient Refused): morphineor iv 4 mg IVP once over 4 mins jb4 17:15 Drug: fentaNYL (PF) IVP 25 mcg IVP once Route: IVP; Site: left antecubital; jb4 18:00 Follow up: Response: No adverse reaction; Marked relief of symptoms; Pain is decreased; jb4 RASS: Alert and Calm (0) 17:15 Drug: Ondansetron IVP 4 mg IVP once; over 2 minutes Route: IVP; Site: left antecubital; jb4 18:00 Follow up: Response: No adverse reaction; Marked relief of symptoms jb4 17:28 Drug: Lidocaine Mucous Membrane Gel 2 % 1 application Mucous Membrane once Route: jb4 Mucous Membrane; 17:29 Drug: Ativan IVP 2 mg IVP once Route: IVP; Site: left antecubital; jb4 18:00 Follow up: Response: No adverse reaction; Marked relief of symptoms; Anxiety decreased jb4 17:46 Drug: Metoprolol IVP 5 mg IVP every 5 minutes; Hold for SBP < 100 or HR < 60. x3 Route: jb4 IVP; Site: left antecubital; 21:37 Follow up: Response: No adverse reaction; Marked relief of symptoms jb4 17:48 Drug: NS 0.9% IV 1000 ml IV at 1 bolus Per protocol; to be given as a bolus over 60 jb4 minutes Route: IV; Rate: 1 bolus; Site: left antecubital; 18:48 Follow up: Response: No adverse reaction; IV Status: Completed infusion; IV Intake: jb4 1000ml 20:18 Drug: fentaNYL (PF) IVP 25 mcg IVP once Route: IVP; Site: left antecubital; jb4 21:36 Follow up: Response: No adverse reaction; Marked relief of symptoms; Pain is decreased; jb4 RASS: Drowsy (-1) Disposition Summary: 09/18/24 16:51 Transfer Ordered Notes: Transfer Location: Other Acute Care Facility ec2 Reason: Higher level of care ec2 Condition: Stable ec2 Problem: an ongoing problem ec2 Symptoms: are unchanged ec2 Accepting Physician: transferring doc(09/18/24 21:38) jb4 Diagnosis - Small Bowel Obstruction, Pelvic Mass ec2 Forms: - Medication Reconciliation Form ec2 - SBAR form ec2 Signatures: Dispatcher [employer] EDMS Jah Cabezas RN RN jb4 Saundra Elizalde RN RN lg3 Pat Birmingham MD MD sd2 Kandis Camargo RN RN cm10 Jadiel Rae MD MD ec2 Corrections: (The following items were deleted from the chart) 15:08 15:08 Influenza Screen (A \T\ B)+BA.LAB.BRZ ordered. EDMS EDMS 15:08 15:08 SARS-COV-2 Antigen Rapid+I.LAB.BRZ ordered. EDMS EDMS 17:28 16:45 Abdomen 1 View (KUB)+RAD.RAD.BRZ ordered. EDMS EDMS 17:29 16:44 NG Tube ordered. ec2 jb4 21:38 16:51 transferring doc ec2 jb4
--- NOTE | 2024-09-18 16:51 | ER ---
Nurse's Notes [facility] Name: Misa Claros Age: 74 yrs Sex: Female : 1950 Arrival Date: 09/18/2024 Time: 14:10 Bed 26 Private MD: Diagnosis: Small Bowel Obstruction, Pelvic Mass Presentation: 09/18 15:04 Chief complaint: Patient states: epigastric pain onset 5 days ago. pt also reports cm10 diarrhea. Coronavirus screen: Client denies travel out of the [place] in the last 14 days. Ebola Screen: Patient denies travel to an Ebola-affected area in the 21 days before illness onset. No symptoms or risks identified at this time. Initial Sepsis Screen: Does the patient meet any 2 criteria? No. Patient's initial sepsis screen is negative. Does the patient have a suspected source of infection? No. Patient's initial sepsis screen is negative. Risk Assessment: Do you want to hurt yourself or someone else? Patient reports no desire to harm self or others. Onset of symptoms was September 13, 2024. 15:04 Method Of Arrival: Ambulatory cm10 15:04 Acuity: VINOD 3 cm10 Triage Assessment: 15:07 General: Appears in no apparent distress. comfortable, Behavior is calm, cooperative. cm10 Neuro: No deficits noted. Level of Consciousness is awake, alert, obeys commands, Oriented to person, place, time, situation, Appropriate for age. Respiratory: No deficits noted. Airway is patent Respiratory effort is even, unlabored, Respiratory pattern is regular, symmetrical. Historical: - Allergies: 15:05 Codeine; cm10 15:05 Iodine; cm10 15:05 Morphine; cm10 - Home Meds: 15:05 Eliquis 5 mg Oral tab 1 tab 2 times per day [Active]; Entresto 24-26 mg Oral tab 1 tab cm10 2 times per day [Active]; spironolactone 50 mg oral tablet 1 tab [Active]; metoprolol succinate 25 mg oral Tablet, Extended Release 24 hr 1 tab daily [Active]; - PMHx: 15:05 Atrial fibrillation; Back pain; Hypertension; sciatica; uterine cancer; diagnosed a cm10 year ago; - PSHx: 15:05 Total abdominal hysterectomy; cm10 - Immunization history:: Adult Immunizations up to date. - Infectious Disease History:: Denies. - Social history:: Smoking status: Patient denies any tobacco usage or history of. Screenin:40 [facility] ED Fall Risk Assessment (Adult) History of falling in the last 3 months, jb4 including since admission No falls in past 3 months (0 pts) Confusion or Disorientation No (0 pts) Intoxicated or Sedated No (0 pts) Impaired Gait No (0 pts) Mobility Assist Device Used No (0 pt) Altered Elimination No (0 pt) Score/Fall Risk Level 0 - 2 = Low Risk Oriented to surroundings, Maintained a safe environment. Abuse screen: Denies threats or abuse. Nutritional screening: No deficits noted. Tuberculosis screening: No symptoms or risk factors identified. Assessment: 16:40 General: Appears in no apparent distress. uncomfortable, Behavior is calm, cooperative, jb4 appropriate for age. Pain: Complains of pain in abdomen Pain does not radiate. Pain currently is 8 out of 10 on a pain scale. Quality of pain is described as sharp, stabbing. Neuro: Level of Consciousness is awake, alert, obeys commands, Oriented to person, place, time, situation. Cardiovascular: Patient's skin is warm and dry. Respiratory: Airway is patent Respiratory effort is even, unlabored, Respiratory pattern is regular, symmetrical. GI: Reports lower abdominal pain. Derm: Skin is intact, Skin is pink, warm \T\ dry. Musculoskeletal: Circulation, motion, and sensation intact. Range of motion: intact in all extremities. 17:50 Reassessment: Patient appears in no apparent distress at this time. Patient and/or jb4 family updated on plan of care and expected duration. Pain level reassessed. Patient is alert, oriented x 3, equal unlabored respirations, skin warm/dry/pink. 19:00 Reassessment: Patient appears in no apparent distress at this time. Patient and/or jb4 family updated on plan of care and expected duration. Pain level reassessed. Patient is alert, oriented x 3, equal unlabored respirations, skin warm/dry/pink. 20:00 Reassessment: Patient appears in no apparent distress at this time. Patient and/or jb4 family updated on plan of care and expected duration. Pain level reassessed. Patient is alert, oriented x 3, equal unlabored respirations, skin warm/dry/pink. 21:33 Reassessment: Patient appears in no apparent distress at this time. Patient and/or jb4 family updated on plan of care and expected duration. Pain level reassessed. Patient is alert, oriented x 3, equal unlabored respirations, skin warm/dry/pink. Vital Signs: 15:04 BP 104 / 64; Pulse 65; Resp 16; Temp 97(TE); Pulse Ox 99% on R/A; Weight 86.64 kg; cm10 Height 5 ft. 3 in. ; Pain 8/10; 17:30 BP 102 / 61; Pulse 133; Resp 16; Pulse Ox 99% on R/A; jb4 18:00 BP 96 / 55; Pulse 97; Resp 16; Pulse Ox 100% on R/A; jb4 20:18 BP 111 / 66; Pulse 93; Resp 19; Pulse Ox 99% on R/A; jb4 21:15 BP 106 / 79; Pulse 98; Resp 19; Pulse Ox 100% on R/A; jb4 15:04 Body Mass Index 33.83 (86.64 kg, 160.02 cm) cm10 15:04 Pain Scale: Adult cm10 ED Course: 14:14 Patient arrived in ED. mr 14:25 Jadiel Rae MD is Attending Physician. ec2 15:05 Triage completed. cm10 15:07 Arm band placed on right wrist. Patient placed in waiting room. cm10 15:21 CT Abd/Pelvis - Without Contrast In Process Unspecified. EDMS 16:26 Initial lab(s) drawn, by me, sent to lab. Inserted saline lock: 22 gauge in left cc6 antecubital area, using aseptic technique. Blood collected. Flushed with 10 mL NS Missed attempt(s): 22 gauge in right antecubital area. Bleeding controlled, band aid applied, catheter tip intact. 16:27 SARS RAPID Sent. cc6 16:27 Influenza Screen (a \T\ B) Sent. cc6 16:27 CBC with Diff Sent. cc6 16:27 CMP Sent. cc6 16:27 Lipase Sent. cc6 16:27 COVID swab sent to lab. Flu and/or RSV swab sent to lab. cc6 16:40 Jah Cabezas, RN is Primary Nurse. jb4 16:40 Patient has correct armband on for positive identification. Bed in low position. Call jb4 light in reach. Side rails up X 1. Provided Education on: plan of care. 17:06 MD Donaldson TC called to initiate patient transfer. ty 17:20 [facility] facility at saturation. ty 18:03 CXR XRAY In Process Unspecified. EDMS 19:37 Transfer initiated \T\ 7. ty 20:18 Patient accepted to [facility] [place] \T\2005, Doc to doc done \T\2008. Nurse to nurse done \T\ ty 2018. [place] to transfer. 21:15 No provider procedures requiring assistance completed. Patient transferred, IV remains jb4 in place. Administered Medications: 16:27 Drug: NS 0.9% IV 500 ml 500 ml IV at 1 bolus once; to be given as a bolus over 30 jb4 minutes Volume: 500 ml; Route: IV; Rate: 1 bolus; Site: left antecubital; 16:35 Not Given (Patient Refused): ondansetron 4 mg IVP once; over 2 minutes jb4 16:36 Not Given (Patient Refused): morphineor iv 4 mg IVP once over 4 mins jb4 17:15 Drug: fentaNYL (PF) IVP 25 mcg IVP once Route: IVP; Site: left antecubital; jb4 18:00 Follow up: Response: No adverse reaction; Marked relief of symptoms; Pain is decreased; jb4 RASS: Alert and Calm (0) 17:15 Drug: Ondansetron IVP 4 mg IVP once; over 2 minutes Route: IVP; Site: left antecubital; jb4 18:00 Follow up: Response: No adverse reaction; Marked relief of symptoms jb4 17:28 Drug: Lidocaine Mucous Membrane Gel 2 % 1 application Mucous Membrane once Route: jb4 Mucous Membrane; 17:29 Drug: Ativan IVP 2 mg IVP once Route: IVP; Site: left antecubital; jb4 18:00 Follow up: Response: No adverse reaction; Marked relief of symptoms; Anxiety decreased jb4 17:46 Drug: Metoprolol IVP 5 mg IVP every 5 minutes; Hold for SBP < 100 or HR < 60. x3 Route: jb4 IVP; Site: left antecubital; 21:37 Follow up: Response: No adverse reaction; Marked relief of symptoms jb4 17:48 Drug: NS 0.9% IV 1000 ml IV at 1 bolus Per protocol; to be given as a bolus over 60 jb4 minutes Route: IV; Rate: 1 bolus; Site: left antecubital; 18:48 Follow up: Response: No adverse reaction; IV Status: Completed infusion; IV Intake: jb4 1000ml 20:18 Drug: fentaNYL (PF) IVP 25 mcg IVP once Route: IVP; Site: left antecubital; jb4 21:36 Follow up: Response: No adverse reaction; Marked relief of symptoms; Pain is decreased; jb4 RASS: Drowsy (-1) Medication: 16:40 VIS not applicable for this client. jb4 Intake: 18:48 IV: 1000ml; Total: 1000ml. jb4 Outcome: 16:51 ER care complete, transfer ordered by . ec2 21:15 Transferred by ground EMS to other acute care facility: [facility]. jb4 21:15 Condition: stable 21:15 Discharge instructions given to patient, Instructed on the need for transfer, Demonstrated understanding of instructions, 21:38 Patient left the ED. jb4 Signatures: Dispatcher [employer] Elsy Mark, Reg Reg Jah Caraballo, COREY RN jb4 Kandis Camargo RN RN cm10 Jadiel Rae MD MD ec2 Kushal Madsen Cassandra cc6
[2024-09-18] MEDS ORDERED: LORazepam 2 MG/ML VIAL ONE (17:15)
[2024-09-18 17:30] LABS: Specific Gravity 1.023 (1.005-1.030); Sqamous Epithelial <5 /HPF (None Seen); Urine Bacteria None Seen /HPF (<20); Urine Bilirubin 1+ (Negative); Urine Blood 2+ (Negative); Urine Clarity Extremely Turbid (Clear); Urine Color Yellow (Yellow); Urine Culture Reflex Order NOT NEEDED; Urine Glucose NEGATIVE (Negative); Urine Ketones TRACE (Negative); Urine Microscopic Reflex YN ORDER UMIC; Urine Mucus Slight /HPF (None Seen); Urine Nitrite NEGATIVE (Negative); Urine Protein 1+ (Negative); Urine Urobilinogen Normal (Normal); Urine WBC <5 /HPF (<5); Urine Yeast (Budding) Trace /HPF (None Seen)
[2024-09-18] MEDS ORDERED: METOPROLOL TARTRATE 5 MG/5 ML INJ IV ONE (17:42)
[2024-09-18] MEDS ORDERED: NA CHLORIDE 0.9% 1,000 ML ONE (17:42)
--- NOTE | 2024-09-18 18:09 | RAD REPORT ---
EXAMINATION: ONE VIEW CHEST XR CLINICAL INDICATION: COUGH TECHNIQUE: Frontal chest projection is submitted. Examination is limited by patient positioning and t echnique. COMPARISON: 07/17/2023 FINDINGS: Mild linear opacities are seen left retrocardiac region which could be mild infiltrate or pneumonia. The lungs are otherwise clear. The heart is normal in size. No displaced fractures identified.
[2024-09-18 21:53] VITALS: TEMP 97
[2024-09-18 22:06] VITALS: BP 106/79; O2SAT 100
--- NOTE | 2024-09-22 11:21 | EKG ---
Test Date: 2024-09-18 Test Time: 17:35:09 Surgical Dental Assistant: LUIS MEASUREMENT RESULTS: Intervals: Rate: 118 NC: QRSD: 86 QT: 328 QTc: 459 [place]: P: NC: QRS: 77 T: -79 INTERPRETIVE STATEMENTS: Atrial fibrillation ST & T wave abnormality, consider inferolateral ischemia or digitalis effect Abnormal ECG Compared to ECG 07/17/2023 08:52:21 ST (T wave) deviation now present Possible ischemia now present T-wave abnormality no longer present Electronically Signed On 09-22-24 11:14:46 MASTER WELDER by Mark Rodriguez
== END 2024-09-18 21:38 ==
LOC: ER 14:10
DX: K56.609 Unspecified intestinal obstruction, unspecified as to partial versus complete obstruction (principal); R19.09 Other intra-abdominal and pelvic swelling, mass and lump; I10 Essential (primary) hypertension; I48.91 Unspecified atrial fibrillation; Z79.01 Long term (current) use of anticoagulants; Z11.52 Encounter for screening for COVID-19
CPT/HCPCS: 96361; 93005; 85025; 81001; 36415; 83690; 80053; 87804 ×2; 74176; 71045; 96375; 96374; 99285; 87811; J3010 ×2; J2405; J7040; J7030

== ENCOUNTER 2024-10-05 12:15 | Inpatient (IN) | payer OTHER ==
--- OUTSIDE RECORDS SUMMARY | 2024-10-05 12:21 | XMS REPORT | Clinical Summary ---
Author Name Unknown Organization [facility] Address [address] [place] [address] Care Team Providers Care Manager Of Health Name Role Phone Deonna Leiva MD Primary Care Provider [phone] Denzel Pritchett "Hattie" Unavailable [phone] Mateo Chavez MD Unavailable [phone] David Dobson MD Unavailable [phone] Susan Baird MD Unavailable [phone] Star Treviño MD Unavailable [phone] Nolberto Israel MD Unavailable [phone] Ophelia Craft Unavailable [phone] Pao Irvin MD Unavailable [phone] Artem Castellanos MD Primary Care Provider [phone] Bong Mcfadden RN Unavailable [phone] Allergies Active Allergy Reactions Criticality Noted Date Comments Codeine GI Intolerance Medium 11/08/2016 Nausea and vomiting sometime. Fruit Punch Flavor Hives,Itching High 11/21/2016 Allergy to most Fruits with seeds, strawberries, etc..... Morphine GI Intolerance Medium 11/24/2016 Nausea and vomiting sometime. Naloxone GI Intolerance 11/24/2016 Opium GI Intolerance 11/24/2016 [place] Swelling 02/11/2024 Eyes and face swell from [...] tablet (25 mg) by mouth daily. 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 To prevent constipation. Hold for loose stools/diarrh ea. 60 tablet 02/17/2024 12:03 PM CDT 4 Active traMADol (ULTRAM) 50 mg tablet Take 1 tablet (50 mg) by mouth as needed. Active benzonatate (TESSALON) 100 mg capsuleIndicati ons:Serous cystadenocarcin queenie, NOS of endometrium Take 1 capsule (100 mg) by mouth every 8 (eight) hours as needed for cough. 10 capsule 5 Active magnesium oxide 400 mg magnesium tabIndications: Serous cystadenocarcin queenie, NOS of endometrium Take 1 tablet by mouth twice daily. 60 tablet 1 5 Active furosemide (LASIX) 20 mg tablet Take 1 tablet (20 mg) by mouth daily. 2 10/26/19 Discontinu ed(Therapy completed) spironolactone (ALDACTONE) 50 mg tablet Take 1 tablet (50 mg) by mouth daily. 2 10/26/19 Discontinu ed(Therapy completed) diclofenac sodium (Voltaren) 1 % gelIndications: Chronic pain Apply 2 g topically 3 (three) times a day. 450 g 2 2 02/13/20 Discontinu ed(Therapy completed) metoprolol tartrate (LOPRESSOR) 25 mg tabletIndicatio ns:Cardiomegaly ,Coronary artery disease due to calcified coronary lesion TAKE ONE TABLET BY MOUTH TWICE A DAY 60 tablet 6 2 02/15/20 Discontinu ed( Long-Term Medication ) pregabalin (Lyrica) [...] night before surgery. 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 For pain. 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 Take with or without food. 60 capsule 09/11/2024 9:31 AM FARM OPERATIONS TECHNICAL DIRECTOR 5 09/24/19 25 Discontinu ed(Stop Taking at Discharge) oseltamivir (TAMIFLU) 75 mg capsuleIndicati ons:Serous cystadenocarcin queenie, NOS of endometrium Take 1 capsule (75 mg) by mouth every 12 (twelve) hours for 10 doses. 10 capsule 5 09/29/19 25 potassium chloride (K-DUR,KLOR-CON M) 20 mEq tabletIndicatio ns:Serous cystadenocarcin queenie, NOS of endometrium Take 1 tablet (20 mEq) by mouth twice daily for 3 days. 30 tablet 5 10/04/19 25 Active Problems Patient Care Coordination No te Formatting of this note migh t be different from the original. Please call patient with all appointment dates and times, patient does not use Mychart. 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 twice daily with a [id number] score 4 (age, gender, CHF, HTN) For [...] 5 mg p.o. twice daily with a [id number] score 4 (age, gender, CHF, HTN) Nonischemic congestive cardiomyopathy 12/13/2021 Assessment & Plan [...] needed at this time; managed by outside beautician apprentice No indication for diuretic initiation Assessment & [...] already had this discussion with her private beautician apprentice concerning a permanent ICD implant and knows she would need a follow-up appointment within 3 months. Patient states she elected to have her further management with her local beautician apprentice. 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 Continue pravastatin 20 mg p.o. daily. Assessment & Plan (11/05/2017 4:48 PM FARM OPERATIONS TECHNICAL DIRECTOR): Refers no ischemic symptoms. - LDL at [...] weeks. Assessment & Plan (11/05/2017 4:48 PM FARM OPERATIONS TECHNICAL DIRECTOR): Blood pressure recheck manually were (left arm) 151/70 and (right arm) 146/70 mmHg. - Added amlodipine 5 grams by mouth daily. - Continue chlorthalidone 25 milligrams by mouth daily. - Continue atenolol 100 milligrams by mouth daily. - Low-salt diet reinforced. - Encouraged to maintain blood pressure diary for next clinic visit. Assessment & Plan (11/21/2016 12:17 PM FARM OPERATIONS TECHNICAL DIRECTOR): Do not take her medications today, I encouraged her to remain on her medications for surgery. Morbid (severe) obesity due to excess calories 0 11/08/2016 Overview (11/21/2016): 11/21/2016 Body mass index is 41.48 kg/(m^2). Weight: (!) 106.2 kg (234 lb 2.1 oz) [place] body weight: 52.4 kg (115 lb 7.7 oz) Adjusted ideal body weight: 73.9 kg (162 lb 15 oz) Assessment & Plan (11/21/2016 12:17 PM FARM OPERATIONS TECHNICAL DIRECTOR): Discussed diet and weight loss Currently stable, [...] Date Encounter for antineoplastic chemotherapy 01/16/2022 10/28/2023 Preoperative cardiovascular examination 12/13/2021 09/19/2024 Assessment & Plan (02/04/2024 4:02 PM CDT): [...] service is available inpatient if needed. Encounters * This document contains information received from the source organization and may not represent a complete record from that organization. 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 10/01/2024 11:30 AM FARM OPERATIONS TECHNICAL DIRECTOR Follow-Up MD [facility] Gynecology [facility] [place] [address] Artem Castellanos MD Serous cystadenocarcinoma, NOS of endometrium (Primary Dx); 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; Encounter for examination prior to antineoplastic chemotherapy; Hypomagnesemia; Hypokalemia 10/01/2024 Travel 09/29/2024 Telephone [facility] [address] [place] [address] Bong Mcfadden RN 09/26/2024 Telephone [facility] [address] [place] [address] Bong Mcfadden RN 09/25/2024 Telephone [facility]KMDA PHYSICIAN [address] [place] [address] Paola Anderson PA Discharge Call; Medication Problem; Follow-up 09/25/2024 Documentation [facility] [address] [place] [address] Bong Mcfadden, COREY 09/19/2024 2:53 PM FARM OPERATIONS TECHNICAL DIRECTOR - 09/24/2024 6:15 AM FARM OPERATIONS TECHNICAL DIRECTOR Hospital Encounter MAIN [address] [place] [address] Alfa Nixon MD Hillman, Robert Tyler, MD Intestinal obstruction (Primary Dx); Serous cystadenocarcinoma, NOS of endometrium Discharge Disposition: Home 09/19/2024 Travel 09/19/2024 Telephone MD [facility] [place] - Surgical Oncology [address] [place] [address] Michelle Connor RN 09/10/2024 Specialty Pharmacy [facility] AMB RX SPEC ACB [address] [place] [address] Phill Blanca, PharmD Set up Initial Fill for Uterine Cancer, Benefits Investigation for Uterine Cancer 09/09/2024 Specialty Pharmacy [facility] AMB RX SPEC ACB [address] [place] [address] Phill Blanca, PharmD 09/09/2024 Orders Only MD [facility] [address] [place] [address] Artem Castellanos MD 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 (Primary Dx); Serous cystadenocarcinoma, NOS of endometrium 09/09/2024 Orders Only MD [facility] [place] - Gynecology [address] [place] [address] Rhonda Carty PA 09/04/2024 Telephone MD [facility] [place] - Gynecology [address] [place] [address] Lubna Gresham RN 09/04/2024 Orders Only MD [facility] [address] [place] [address] Artem Castellanos MD 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 (Primary Dx); Serous cystadenocarcinoma, NOS of endometrium 09/04/2024 Orders Only MD [facility] [address] [place] [address] Artem Castellanos MD 09/03/2024 Orders Only MD [facility] [address] [place] [address] Artem Castellanos MD 09/03/2024 Orders Only MD [facility] [address] [place] [address] Artem Castellanos MD 09/03/2024 Telephone MD [facility] [place] - Gynecology [address] [place] [address] Rhonda Carty PA 08/27/2024 1:30 PM FARM OPERATIONS TECHNICAL DIRECTOR - 08/27/2024 11:59 PM FARM OPERATIONS TECHNICAL DIRECTOR Hospital Encounter MD [facility] [address] [place] [address] Artem Castellanos MD Lu, Thomas, MD Serous cystadenocarcinoma, NOS of endometrium Discharge Disposition: Home 08/27/2024 Travel 08/26/2024 9:40 AM FARM OPERATIONS TECHNICAL DIRECTOR - 08/26/2024 11:59 PM FARM OPERATIONS TECHNICAL DIRECTOR Hospital Encounter MD [facility] [address] [place] [address] Artem Castellanos MD Hoang, Quoc T, PA 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, 4th [place] [address] Genaro Mcclelland PA 08/08/2024 Orders Only MD [facility] [address] [address] Gloria Calles PA-C Serous cystadenocarcinoma, NOS of endometrium (Primary Dx) 08/08/2024 Telephone MD [facility] [address] [place] [address] Shaunna Arshad MA 08/06/2024 1:30 PM FARM OPERATIONS TECHNICAL DIRECTOR Follow-Up MD [facility] [place] - Gynecology [address] [place] [address] Artem Castellanos MD Serous cystadenocarcinoma, NOS of endometrium (Primary Dx) 08/06/2024 Travel 07/02/2024 Orders Only MD [facility] [place] - Gynecology [address] [place] [address] Rhonda Carty PA Serous cystadenocarcinoma, NOS of endometrium (Primary Dx) 06/26/2024 10:25 AM CDT Ancillary Procedure Diagnostic Imaging in [facility] [address] [facility] [address] [place] [address] Deonna Leiva MD Serous cystadenocarcinoma, NOS of endometrium; Metastatic malignant neoplasm to sigmoid colon; Postoperative visit 06/25/2024 Travel 04/07/2024 Orders Only Gynecologic Oncology Center [address] [facility], 6th [place] [address] Yodit Neville 03/12/2024 10:00 AM CDT Office Visit MD [facility] [place] - Gynecology [address] [place] [address] Deonna Leiva MD Serous cystadenocarcinoma, NOS of endometrium (Primary Dx); Metastatic malignant neoplasm to sigmoid colon; Postoperative visit 03/12/2024 Travel 03/03/2024 Telephone MD [facility] [place] - Gynecology [address] [place] [address] Lubna Gresham RN 02/28/2024 Multidisciplinary Visit MD [facility] in [address] [address] Deonna Leiva MD 02/14/2024 7:00 AM CDT - 02/14/2024 1:05 PM CDT Surgery MAIN OR [address] [place] [address] Deonna Leiva MD ROBOTIC ASSISTED DIAGNOSTIC LAPAROSCOPY OF ABDOMEN, PERITONEUM AND OMENTUM 02/14/2024 7:00 AM CDT Anesthesia Event MAIN OR [address] [place] [address] Anderson Thompson MD Nguyen, Anh-Thuy, MD 02/14/2024 5:21 AM CDT - 02/17/2024 1:12 PM CDT Hospital Encounter MAIN P[address]A [address] [place] [address] Deonna Leiva MD Jazaeri, Amir Anthony, MD [...] AM CDT Office Visit MD [facility] [place] - Gynecology [address] [place] [address] Deonna Leiva MD Serous cystadenocarcinoma, NOS of endometrium (Primary Dx); Congestive heart failure, not otherwise specified; Paroxysmal atrial fibrillation; Encounter for other preprocedural examination 02/13/2024 Travel 02/11/2024 1:30 PM CDT Nutrition Clinical Nutrition For your Nutrition appointment location directions please call: Deonna Leiva MD Tatum, Alyssa C, MARCELL 02/11/2024 Telephone [facility]al Surgery [address] [facility] Main Bldg, 7th [place] [address] Jennifer Sadler RN 02/07/2024 Orders Only Colorectal Center - Colon and Rectal Surgery [address], 7th [place] [address] Pastor Cuellar PA Metastatic malignant neoplasm to sigmoid colon (Primary Dx) 02/05/2024 Orders Only Cardiopulmonary Center [address], 6th [place] [address] Loren Winn PA 02/04/2024 3:30 PM CDT - 02/04/2024 11:59 PM CDT Hospital Encounter [facility] [address], [place] [address] Pao Irvin MD Paroxysmal atrial fibrillation; Encounter for other preprocedural examination; Hypothyroidism, not otherwise specified; Congestive heart failure, not otherwise specified; Nonischemic congestive cardiomyopathy; Essential (primary) hypertension Discharge Disposition: Home 02/04/2024 3:00 PM CDT Follow-Up Cardiopulmonary Center [address] Main Bldg, 6th Floor [place] [facility] [address] Deonna Leiva MD Gardoni, Natascha, PA Nonischemic congestive cardiomyopathy (Primary Dx); Congestive heart failure, not otherwise specified; Paroxysmal atrial fibrillation; Essential (primary) hypertension; Preoperative cardiovascular examination 02/04/2024 1:13 PM CDT - 02/04/2024 3:29 PM CDT Hospital Encounter [facility] [address] [place] [address], 2nd [place] [address] Izabel Martinez APRN,AGACNP Pre op labs Discharge Disposition: Home 02/04/2024 1:00 PM CDT Consult Perioperative Evaluation and Management [address] [place] [address], [address] [place] [address] Deonna Leiva MD Misoi, Mercy W, MD Encounter for other preprocedural examination (Primary Dx); Serous cystadenocarcinoma, NOS of endometrium; Paroxysmal atrial fibrillation; Hypothyroidism, not otherwise specified; Dyslipidemia; correction use of anticoagulant; Personal history of transient ischemic attack; Hypertension; Chronic congestive heart failure 02/04/2024 12:00 PM CDT POEM Appointments [facility] Management Center [address] [place] [address] Deonna Leiva MD Pre op labs (Primary Dx) 02/04/2024 Travel 02/01/2024 11:59 PM CDT Anesthesia Event [facility] [address] [place] [address] Aleja Paris APRN 01/01/2024 Orders Only MD [facility] [place] - Gynecology [address] [place] [address] Rhonda Carty PA Serous cystadenocarcinoma, NOS of endometrium (Primary Dx); Congestive heart failure, not otherwise specified; Paroxysmal atrial fibrillation 12/26/2023 Prep for Surgery MD [facility] [place] - Gynecology [address] [place] [address] Rhonda Carty PA Serous cystadenocarcinoma, NOS of [...] failure, not otherwise specified 11/28/2023 1:00 PM FARM OPERATIONS TECHNICAL DIRECTOR Telemedicine MD [facility] in [address] [address] Deonna Leiva MD Metastatic malignant neoplasm to sigmoid colon (Primary Dx); Serous cystadenocarcinoma, NOS of endometrium; 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 11/23/2023 2:00 PM FARM OPERATIONS TECHNICAL DIRECTOR - 11/23/2023 11:59 PM FARM OPERATIONS TECHNICAL DIRECTOR Hospital [facility] Cardiopulmonary Center [address] [facility], 6th [place] [address] Deonna Leiva MD Congestive heart failure, not otherwise specified Discharge Disposition: Home 11/23/2023 Travel 10/31/2023 Orders Only MD [facility] in [address] [address] Rhonda Carty PA Congestive heart failure, not otherwise specified (Primary Dx) 10/26/2023 1:00 PM FARM OPERATIONS TECHNICAL DIRECTOR Follow-Up MD [facility] in [address] [address] Deonna Leiva MD Serous cystadenocarcinoma, NOS of endometrium (Primary Dx); 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; Congestive heart failure, not otherwise specified 10/26/2023 8:00 AM FARM OPERATIONS TECHNICAL DIRECTOR Ancillary Procedure Diagnostic Imaging in [address] [place] [address] Deonna Leiva MD Serous cystadenocarcinoma, NOS of endometrium 10/26/2023 Travel after 10/06/2023 Immunizations Name Administration Dates Next Due Pfizer SARS-CoV-2 Vaccination (Purple Cap) 05/14,04/25/2021 Surgical History Surgery Date Site/Laterality Comments SECTION, CLASSIC 01/17/1981 MD LAPAROSCOPY TOT HYSTERECTOMY >250 G W/TUBE/OVAR 11/28/2016 N/A Procedure: ROBOTIC ASSISTED TOTAL HYSTERECTOMY, MINI LAPAROTOMY, CYSTOSCOPY; Surgeon: Deonna Leiva MD; Location: MAIN OR; Service: ORTHO RN - GYNECOLOGIC ONCOLOGY MD SALPINGO-OOPHORECTOMY COMPL/PRTL UNI/BI SPX 11/28/2016 Bilateral Procedure: ROBOTIC ASSISTED SALPINGO-OOPHORECTOMY; Surgeon: Deonna Leiva MD; Location: MAIN OR; Service: ORTHO RN - GYNECOLOGIC ONCOLOGY MD LMTD LMPHADEC STAGING SPX PEL&PARA-AORTIC 11/28/2016 Abdomen/Bilateral Procedure: BILATERAL PELVIC BIOPSIES AND OMENTAL BIOPSY; Surgeon: Deonna Leiva MD; Location: MAIN OR; Service: ORTHO RN - GYNECOLOGIC ONCOLOGY MD INTRAOP SENTINEL LYMPH NODE ID W/DYE INJECTION 11/28/2016 Bilateral Procedure: INTRAOPERATIVE LYMPHATIC MAPPING; Surgeon: Deonna Leiva MD; Location: MAIN OR; Service: ORTHO RN - GYNECOLOGIC ONCOLOGY CHOLECYSTECTOMY 05/25/2018 - 06/23/2018 COLONOSCOPY 09/24/2017 - 09/23/2018 TOTAL KNEE ARTHROPLASTY 08/01/2023 Right MD LAPS ABD PRTM&OMENTUM DX W/WO SPEC BR/WA SPX 02/14/2024 Abdomen/Midline Procedure: ROBOTIC ASSISTED DIAGNOSTIC LAPAROSCOPY OF ABDOMEN, PERITONEUM AND OMENTUM; Surgeon: Deonna Leiva MD; Location: MAIN OR; Service: ORTHO RN - GYNECOLOGIC ONCOLOGY MD LAPAROSCOPY COLECTOMY PARTIAL W/ANASTOMOSIS 02/14/2024 Abdomen/N/A Procedure: ROBOTIC ASSISTED COLECTOMY; Surgeon: Tawanda Mello MD; Location: MAIN OR; Service: COLON & RECTAL SURGERY MD EXCISION/DESTRUCTION OPEN ABDOMINAL TUMOR 5 CM/< 02/14/2024 [...] on file Legal Sex Female 8:14 AM FARM OPERATIONS TECHNICAL DIRECTOR Gender Identity Not on file Sexual Orientation Not on file Occupation Industry Job Start Date Job End Date [employer] Work Not on file Not on file [...] Sign Reading Time Taken Comments Blood Pressure 139/85 10/01/2024 1:10 PM FARM OPERATIONS TECHNICAL DIRECTOR Pulse 95 10/01/2024 1:10 PM FARM OPERATIONS TECHNICAL DIRECTOR Temperature 36.7 C (98.1 F) 10/01/2024 1:10 PM CS T Respiratory Rate 17 10/01/2024 1:10 PM FARM OPERATIONS TECHNICAL DIRECTOR Oxygen Saturation 97% 09/24/2024 4:06 PM FARM OPERATIONS TECHNICAL DIRECTOR Inhaled Oxygen Concentration - - Weight 88.9 kg (195 lb 15.8 oz) 10/01/2024 1:10 PM FARM OPERATIONS TECHNICAL DIRECTOR Height 158.8 cm (5' 2.52") 10/01/2024 1:10 PM CS T Body Mass Index 35.25 10/01/2024 1:10 PM FARM OPERATIONS TECHNICAL DIRECTOR Plan of Treatment Upcoming Encounters Date Type Department Care Team (Late st Contact Info) Description 10/22/2024 9:45 AM FARM OPERATIONS TECHNICAL DIRECTOR Lab MD [facility] [place] - [facility] [address] [place] [address] [address] [place] [address] Artem Castellanos MD [address] [place] [phone] [email or web address] 10/22/2024 10:30 AM FARM OPERATIONS TECHNICAL DIRECTOR Follow-Up MD [facility] [place] - Gynecology [address] [place] [address] Artem Castellanos MD [address] [place] [address] [email or web address] Rhonda Carty PA [address] [place] [id number] [email or web address] 10/22/2024 12:45 PM FARM OPERATIONS TECHNICAL DIRECTOR Infusion MD [facility] [place] - Infusion [address] [facility] [address] [place] [address] Artem Castellanos MD [address] [place] [address] [email or web address] 02/06/2025 8:00 AM CDT Appointment Cardiopulmonary Center [address] [place] [address] Main [facility], 6th [place] [address] Loren Winn PA [address] [place] [phone] [email or web address] 02/06/2025 9:00 AM CDT Follow-Up Cardiopulmonary Center [address] [place] [address] Main [facility], 6th [place] [address] Bakari Marie MD [address] [place] [phone] [email or web address] Maintenance Due Date Last Done Comments Pneumococcal Vaccine: 65+ Ye ars (1 of 2 - PCV) 1956 COVID-19 Vaccine (3 - Pfizer risk series) 06/11/2021 05/14/2021, 04/25/2021 Influenza Vaccine (#1) 2024 Procedures Procedure Name Priority Date/Time Associated Diagnosis Comments URINALYSIS MICROSCOPIC EXAM Routine 10/01/2024 11:07 AM FARM OPERATIONS TECHNICAL DIRECTOR 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, NOS of endometrium .CBC Routine 10/01/2024 11:07 AM FARM OPERATIONS TECHNICAL DIRECTOR 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, NOS of endometrium CORTISOL, TOTAL Routine 10/01/2024 11:07 AM FARM OPERATIONS TECHNICAL DIRECTOR 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, NOS of endometrium THYROID STIMULATING HORMONE Routine 10/01/2024 11:07 AM FARM OPERATIONS TECHNICAL DIRECTOR 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, NOS of endometrium FREE THYROXINE Routine 10/01/2024 11:07 AM FARM OPERATIONS TECHNICAL DIRECTOR 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, NOS of endometrium TRIIODOTHYRONINE Routine 10/01/2024 11:07 AM FARM OPERATIONS TECHNICAL DIRECTOR 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, NOS of endometrium CANCER ANTIGEN 125 Routine 10/01/2024 11:07 AM FARM OPERATIONS TECHNICAL DIRECTOR 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, NOS of endometrium PHOSPHORUS LEVEL Routine 10/01/2024 11:07 AM FARM OPERATIONS TECHNICAL DIRECTOR 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, NOS of endometrium MAGNESIUM LEVEL Routine 10/01/2024 11:07 AM FARM OPERATIONS TECHNICAL DIRECTOR 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, NOS of endometrium LACTATE DEHYDROGENASE Routine 10/01/2024 11:07 AM FARM OPERATIONS TECHNICAL DIRECTOR 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, NOS of endometrium COMPLETE BLOOD COUNT W/ DIFFERENTIAL Routine 10/01/2024 11:07 AM FARM OPERATIONS TECHNICAL DIRECTOR 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, NOS of endometrium COMPREHENSIVE METABOLIC PANEL Routine 10/01/2024 11:07 AM FARM OPERATIONS TECHNICAL DIRECTOR 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, NOS of endometrium URINALYSIS WITH MICROSCOPIC IF INDICATED Routine 10/01/2024 11:07 AM FARM OPERATIONS TECHNICAL DIRECTOR 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, NOS of endometrium URINE CULTURE Add-On 10/01/2024 11:07 AM FARM OPERATIONS TECHNICAL DIRECTOR Serous cystadenocarcinoma, NOS of endometrium XR CHEST 2 VW Routine 09/24/2024 11:58 AM FARM OPERATIONS TECHNICAL DIRECTOR RESPIRATORY MULTIPLEX PCR PANEL, NASOPHARYNGEAL SWAB Routine 09/24/2024 10:46 AM FARM OPERATIONS TECHNICAL DIRECTOR DIFFERENTIAL Routine 09/24/2024 12:26 AM FARM OPERATIONS TECHNICAL DIRECTOR .CBC Routine 09/24/2024 12:26 AM FARM OPERATIONS TECHNICAL DIRECTOR GLUCOSE, RANDOM Routine 09/24/2024 12:26 AM FARM OPERATIONS TECHNICAL DIRECTOR CREATININE Routine 09/24/2024 12:26 AM FARM OPERATIONS TECHNICAL DIRECTOR BLOOD UREA NITROGEN Routine 09/24/2024 12:26 AM FARM OPERATIONS TECHNICAL DIRECTOR MAGNESIUM LEVEL Routine 09/24/2024 12:26 AM FARM OPERATIONS TECHNICAL DIRECTOR POTASSIUM LEVEL Routine 09/24/2024 12:26 AM FARM OPERATIONS TECHNICAL DIRECTOR CHLORIDE LEVEL Routine 09/24/2024 12:26 AM FARM OPERATIONS TECHNICAL DIRECTOR CARBON DIOXIDE LEVEL Routine 09/24/2024 12:26 AM FARM OPERATIONS TECHNICAL DIRECTOR SODIUM LEVEL Routine 09/24/2024 12:26 AM FARM OPERATIONS TECHNICAL DIRECTOR COMPLETE BLOOD COUNT W/ DIFFERENTIAL Routine 09/24/2024 12:26 AM FARM OPERATIONS TECHNICAL DIRECTOR DIFFERENTIAL Routine 09/23/2024 6:03 AM FARM OPERATIONS TECHNICAL DIRECTOR .CBC Routine 09/23/2024 6:03 AM FARM OPERATIONS TECHNICAL DIRECTOR GLUCOSE, RANDOM Routine 09/23/2024 6:03 AM FARM OPERATIONS TECHNICAL DIRECTOR CREATININE Routine 09/23/2024 6:03 AM FARM OPERATIONS TECHNICAL DIRECTOR BLOOD UREA NITROGEN Routine 09/23/2024 6 :03 AM FARM OPERATIONS TECHNICAL DIRECTOR MAGNESIUM LEVEL Routine 09/23/2024 6:03 AM FARM OPERATIONS TECHNICAL DIRECTOR POTASSIUM LEVEL Routine 09/23/2024 6:03 AM FARM OPERATIONS TECHNICAL DIRECTOR CHLORIDE LEVEL Routine 09/23/2024 6:03 AM FARM OPERATIONS TECHNICAL DIRECTOR CARBON DIOXIDE LEVEL Routine 09/23/2024 6:03 AM FARM OPERATIONS TECHNICAL DIRECTOR SODIUM LEVEL Routine 09/23/2024 6:03 AM FARM OPERATIONS TECHNICAL DIRECTOR COMPLETE BLOOD COUNT W/ DIFFERENTIAL Routine 09/23/2024 6:03 AM FARM OPERATIONS TECHNICAL DIRECTOR ECHOCARDIOGRAM 2D COMPLETE STAT 09/22/2024 1:25 PM FARM OPERATIONS TECHNICAL DIRECTOR GLUCOSE, RANDOM Routine 09/22/2024 2:50 AM FARM OPERATIONS TECHNICAL DIRECTOR CREATININE Routine 09/22/2024 2:50 AM FARM OPERATIONS TECHNICAL DIRECTOR BLOOD UREA NITROGEN Routine 09/22/2024 2 :50 AM FARM OPERATIONS TECHNICAL DIRECTOR MAGNESIUM LEVEL Routine 09/22/2024 2:50 AM FARM OPERATIONS TECHNICAL DIRECTOR POTASSIUM LEVEL Routine 09/22/2024 2:50 AM FARM OPERATIONS TECHNICAL DIRECTOR CHLORIDE LEVEL Routine 09/22/2024 2:50 AM FARM OPERATIONS TECHNICAL DIRECTOR CARBON DIOXIDE LEVEL Routine 09/22/2024 2:50 AM FARM OPERATIONS TECHNICAL DIRECTOR SODIUM LEVEL Routine 09/22/2024 2:50 AM FARM OPERATIONS TECHNICAL DIRECTOR .CBC Routine 09/22/2024 2:49 AM FARM OPERATIONS TECHNICAL DIRECTOR CALCIUM IONIZED, VENOUS Routine 09/22/2024 2:49 AM FARM OPERATIONS TECHNICAL DIRECTOR COMPLETE BLOOD COUNT W/ DIFFERENTIAL Routine 09/22/2024 2:49 AM FARM OPERATIONS TECHNICAL DIRECTOR EKG, 12-LEAD (PORTABLE) STAT 09/22/2024 C. DIFFICILE DNA DETECTION Routine 09/21/2024 11:37 PM FARM OPERATIONS TECHNICAL DIRECTOR GASTROINTESTINAL MULTIPLEX PCR PANEL Routine 09/21/2024 11:37 PM FARM OPERATIONS TECHNICAL DIRECTOR CT CHEST PULMONARY EMBOLISM W CONTRAST Routine 09/21/2024 5:09 PM FARM OPERATIONS TECHNICAL DIRECTOR .CBC Routine 09/21/2024 10:01 AM FARM OPERATIONS TECHNICAL DIRECTOR GLUCOSE, RANDOM Routine 09/21/2024 10:01 AM FARM OPERATIONS TECHNICAL DIRECTOR CREATININE Routine 09/21/2024 10:01 AM FARM OPERATIONS TECHNICAL DIRECTOR BLOOD UREA NITROGEN Routine 09/21/2024 10:01 AM FARM OPERATIONS TECHNICAL DIRECTOR MAGNESIUM LEVEL Routine 09/21/2024 10:01 AM FARM OPERATIONS TECHNICAL DIRECTOR POTASSIUM LEVEL Routine 09/21/2024 10:01 AM FARM OPERATIONS TECHNICAL DIRECTOR CHLORIDE LEVEL Routine 09/21/2024 10:01 AM FARM OPERATIONS TECHNICAL DIRECTOR CARBON DIOXIDE LEVEL Routine 09/21/2024 10:01 AM FARM OPERATIONS TECHNICAL DIRECTOR SODIUM LEVEL Routine 09/21/2024 10:01 AM FARM OPERATIONS TECHNICAL DIRECTOR COMPLETE BLOOD COUNT W/ DIFFERENTIAL Routine 09/21/2024 10:01 AM FARM OPERATIONS TECHNICAL DIRECTOR MRSA SCREENING CULTURE Routine 7:50 AM FARM OPERATIONS TECHNICAL DIRECTOR XR ABDOMEN 1 VW PORTABLE Routine 09/20/2024 1:34 AM FARM OPERATIONS TECHNICAL DIRECTOR .CBC Routine 09/20/2024 12:29 AM FARM OPERATIONS TECHNICAL DIRECTOR GLUCOSE, RANDOM Routine 09/20/2024 12:29 AM FARM OPERATIONS TECHNICAL DIRECTOR CREATININE Routine 09/20/2024 12:29 AM FARM OPERATIONS TECHNICAL DIRECTOR BLOOD UREA NITROGEN Routine 09/20/2024 12:29 AM FARM OPERATIONS TECHNICAL DIRECTOR MAGNESIUM LEVEL Routine 09/20/2024 12:29 AM FARM OPERATIONS TECHNICAL DIRECTOR POTASSIUM LEVEL Routine 09/20/2024 12:29 AM FARM OPERATIONS TECHNICAL DIRECTOR CHLORIDE LEVEL Routine 09/20/2024 12:29 AM FARM OPERATIONS TECHNICAL DIRECTOR CARBON DIOXIDE LEVEL Routine 09/20/2024 12:29 AM FARM OPERATIONS TECHNICAL DIRECTOR SODIUM LEVEL Routine 09/20/2024 12:29 AM FARM OPERATIONS TECHNICAL DIRECTOR COMPLETE BLOOD COUNT W/ DIFFERENTIAL Routine 09/20/2024 12:29 AM FARM OPERATIONS TECHNICAL DIRECTOR BLOOD CULTURE Routine 09/20/2024 12:29 AM FARM OPERATIONS TECHNICAL DIRECTOR EKG, 12-LEAD (PORTABLE) STAT 09/20/2024 CT ABDOMEN PELVIS W CONTRAST Routine 09/19/2024 7:15 PM FARM OPERATIONS TECHNICAL DIRECTOR HC POC BLOOD UREA NITRO-BUN STAT 09/19/2024 3:51 PM FARM OPERATIONS TECHNICAL DIRECTOR THYROID STIMULATING HORMONE Add-On 09/19/2024 3:33 PM FARM OPERATIONS TECHNICAL DIRECTOR .CBC Routine 09/19/2024 3:33 PM FARM OPERATIONS TECHNICAL DIRECTOR LIPASE LEVEL Routine 09/19/2024 3:33 PM FARM OPERATIONS TECHNICAL DIRECTOR AMYLASE LEVEL Routine 09/19/2024 3:33 PM FARM OPERATIONS TECHNICAL DIRECTOR LACTATE DEHYDROGENASE Routine 09/19/2024 3:33 PM FARM OPERATIONS TECHNICAL DIRECTOR FRACTIONATED BILIRUBIN Routine 3:33 PM FARM OPERATIONS TECHNICAL DIRECTOR PHOSPHORUS LEVEL Routine 09/19/2024 3:33 PM FARM OPERATIONS TECHNICAL DIRECTOR MAGNESIUM LEVEL Routine 09/19/2024 3:33 PM FARM OPERATIONS TECHNICAL DIRECTOR COMPREHENSIVE METABOLIC PANEL Routine 09/19/2024 3:33 PM FARM OPERATIONS TECHNICAL DIRECTOR COMPLETE BLOOD COUNT W/ DIFFERENTIAL Routine 09/19/2024 3:33 PM FARM OPERATIONS TECHNICAL DIRECTOR URINALYSIS MICROSCOPIC EXAM Routine 09/19/2024 3:20 PM FARM OPERATIONS TECHNICAL DIRECTOR URINALYSIS WITH MICROSCOPIC IF INDICATED Routine 09/19/2024 3:20 PM FARM OPERATIONS TECHNICAL DIRECTOR URINE CULTURE Routine 09/19/2024 3:20 PM FARM OPERATIONS TECHNICAL DIRECTOR IR US GUIDED BIOPSY ABDOMINAL NON-ORGAN 75 Routine 08/27/2024 3:20 PM FARM OPERATIONS TECHNICAL DIRECTOR Serous cystadenocarcinoma, NOS of endometrium PATHOLOGY BIOPSY INTERPRETATION Routine 08/27/2024 2:50 PM FARM OPERATIONS TECHNICAL DIRECTOR Serous cystadenocarcinoma, NOS of endometrium .CBC Routine 08/27/2024 1:35 PM FARM OPERATIONS TECHNICAL DIRECTOR Serous cystadenocarcinoma, NOS of endometrium PROTHROMBIN TIME Routine 08/27/2024 1:35 PM FARM OPERATIONS TECHNICAL DIRECTOR Serous cystadenocarcinoma, NOS of endometrium BASIC METABOLIC PANEL, CALCIUM TOTAL Routine 08/27/2024 1:35 PM FARM OPERATIONS TECHNICAL DIRECTOR Serous cystadenocarcinoma, NOS of endometrium COMPLETE BLOOD COUNT W/ DIFFERENTIAL Routine 08/27/2024 1:35 PM FARM OPERATIONS TECHNICAL DIRECTOR Serous cystadenocarcinoma, NOS of endometrium MCKINLEY VUONG MDA EVELIO MUTATION ANALYSIS PRECISION PANEL INTERPRETATION AND REPORT Routine 08/06/2024 3:08 PM FARM OPERATIONS TECHNICAL DIRECTOR Serous cystadenocarcinoma, NOS of endometrium DILLON CEJA MD RNA HOLD Routine 08/06/2024 3: 08 PM FARM OPERATIONS TECHNICAL DIRECTOR Serous cystadenocarcinoma, NOS of endometrium CT CHEST [...] to calcified coronary lesion Nonischemic congestive cardiomyopathy MD EXCISION/DESTRUCTION OPEN ABDOMINAL TUMOR 5 CM/< 02/14/2024 [...] lesion Nonischemic congestive cardiomyopathy Special Needs [id number]@LR MD LAPAROSCOPY COLECTOMY PARTIAL W/ANASTOMOSIS 02/14/2024 5:55 AM CDT Serous cystadenocarcinoma, 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 Congestive heart failure, not otherwise specified Paroxysmal atrial fibrillation Morbid (severe) obesity due to excess calories Anemia in malignant neoplastic disease Essential (primary) hypertension Cardiomegaly Coronary artery disease due to calcified coronary lesion Nonischemic congestive cardiomyopathy Special Needs 0500@LR MD LAPS ABD PRTM&OMENTUM DX W/WO SPEC BR/WA [...] W WO CONTRAST Routine 11/23/2023 6:01 PM FARM OPERATIONS TECHNICAL DIRECTOR Serous cystadenocarcinoma, 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 ECHOCARDIOGRAM 2D COMPLETE Routine 11/23/2023 2:47 PM FARM OPERATIONS TECHNICAL DIRECTOR Congestive heart failure, not otherwise specified PETCT F18 FDG (FLUORODEOXYGLUCOSE) WITHOUT CONTRAST Routine 10/26/2023 11:28 AM FARM OPERATIONS TECHNICAL DIRECTOR Serous cystadenocarcinoma, NOS of endometrium CANCER ANTIGEN 125 Routine 10/26/2023 9: 24 AM FARM OPERATIONS TECHNICAL DIRECTOR Serous cystadenocarcinoma, NOS of endometrium after 10/06/2023 Results * (ABNORMAL) Urinalysis Microscopic Exam (10/01/2024 11:07 AM FARM OPERATIONS TECHNICAL DIRECTOR) Only the most recent of2 resultswithin the time period is included. Urine WBC 3-4(A) None Seen, Rare, 0-2, <1 /HPF 10/01/2024 11:38 AM FARM OPERATIONS TECHNICAL DIRECTOR [place] Urine RBC 3-5(A) None Seen, Rare, 0-2, <1 /HPF 10/01/2024 11:38 AM FARM OPERATIONS TECHNICAL DIRECTOR [place] Urine Mucous 1+(A) Not Seen, Trace /HPF 10/01/2024 11:38 AM FARM OPERATIONS TECHNICAL DIRECTOR [place] Urine Bacteria Not Seen Not Seen /HPF 10/01/2024 11:38 AM FARM OPERATIONS TECHNICAL DIRECTOR [place] Urine Squamous Epithelial Cells Rare Not Seen, OCC, Rare /HPF 10/01/2024 11:38 AM FARM OPERATIONS TECHNICAL DIRECTOR [place] UA WBC Clump OCC(A) Not Seen /HPF 10/01/2024 11:38 AM FARM OPERATIONS TECHNICAL DIRECTOR [place] Urine Hyaline Casts <1 <1, 0-2 /LPF 10/01/2024 11:38 AM FARM OPERATIONS TECHNICAL DIRECTOR [place] UA Cell Cast <1 None Seen, <1 /LPF 10/01/2024 11:38 AM FARM OPERATIONS TECHNICAL DIRECTOR [place] Urine Voided urine specimen / Unknown Non-blood Collection / Unknown 10/01/2024 11:07 AM FARM OPERATIONS TECHNICAL DIRECTOR 10/01/2024 11:11 AM FARM OPERATIONS TECHNICAL DIRECTOR us Rhonda PÉREZ LAB BLOOD ORDERABLES Final Resul t KIRSTY WEBB [facility] [place] [address], [address] [place] [address] * (ABNORMAL) .CBC (10/01/2024 11:07 AM FARM OPERATIONS TECHNICAL DIRECTOR) Only the most recent of13 resultswithin the time period is included. White Blood Cell 8.2 4.1 - 10.5 K/uL 10/01/2024 11:16 AM FARM OPERATIONS TECHNICAL DIRECTOR [place] Red Blood Cell 3.60(L) 3.99 - 5.46 M/uL 10/01/2024 11:16 AM FARM OPERATIONS TECHNICAL DIRECTOR [place] Hemoglobin 10.7(L) 12.2 - 15.3 g/dL 10/01/2024 11:16 AM FARM OPERATIONS TECHNICAL DIRECTOR [place] Hematocrit 33.9(L) 36.4 - 46.8 % 10/01/2024 11:16 AM FARM OPERATIONS TECHNICAL DIRECTOR [place] Mean Cell Volume 94 82 - 99 fL 10/01/2024 11:16 AM FARM OPERATIONS TECHNICAL DIRECTOR [place] Mean Cell Hemoglobin 29.7 26.6 - 33.2 pg 10/01/2024 11:16 AM FARM OPERATIONS TECHNICAL DIRECTOR [place] Mean Cell Hemoglobin Concentration 31.6 31.1 - 35.2 g/dL 10/01/2024 11:16 AM FARM OPERATIONS TECHNICAL DIRECTOR [place] RDW-SD 49.7 37.5 - 49.7 fL 10/01/2024 11:16 AM FARM OPERATIONS TECHNICAL DIRECTOR [place] Red Cell Diameter Width 15.3 11.6 - 15.5 % 10/01/2024 11:16 AM FARM OPERATIONS TECHNICAL DIRECTOR [place] Platelet 383 160 - 397 K/uL 10/01/2024 11:16 AM FARM OPERATIONS TECHNICAL DIRECTOR [place] Mean Platelet Volume 9.2 9.1 - 12.6 fL 10/01/2024 11:16 AM FARM OPERATIONS TECHNICAL DIRECTOR [place] Neutrophil % 79.5(H) 43.2 - 72.7 % 10/01/2024 11:16 AM FARM OPERATIONS TECHNICAL DIRECTOR [place] Lymphocyte % 14.0(L) 16.8 - 46.2 % 10/01/2024 11:16 AM FARM OPERATIONS TECHNICAL DIRECTOR [place] Monocyte % 5.5 5.1 - 12.5 % 10/01/2024 11:16 AM FARM OPERATIONS TECHNICAL DIRECTOR [place] Eosinophil % 0.9 0.4 - 6.3 % 10/01/2024 11:16 AM FARM OPERATIONS TECHNICAL DIRECTOR [place] Basophil % 0.1(L) 0.2 - 1.4 % 10/01/2024 11:16 AM FARM OPERATIONS TECHNICAL DIRECTOR [place] Neutrophil Abs 6.50 1.95 - 7.25 K/uL 10/01/2024 11:16 AM FARM OPERATIONS TECHNICAL DIRECTOR [place] Lymphocyte Abs 1.14 1.01 - 3.24 K/uL 10/01/2024 11:16 AM FARM OPERATIONS TECHNICAL DIRECTOR [place] Monocyte Abs 0.45 0.24 - 0.85 K/uL 10/01/2024 11:16 AM FARM OPERATIONS TECHNICAL DIRECTOR [place] Eosinophil Abs 0.07 0.02 - 0.50 K/uL 10/01/2024 11:16 AM FARM OPERATIONS TECHNICAL DIRECTOR [place] Basophil Abs 0.01(L) 0.02 - 0.09 K/uL 10/01/2024 11:16 AM FARM OPERATIONS TECHNICAL DIRECTOR [place] Blood Peripheral blood specimen / Unknown Venipuncture / Unknown 10/01/2024 11:07 AM FARM OPERATIONS TECHNICAL DIRECTOR 10/01/2024 11:11 AM FARM OPERATIONS TECHNICAL DIRECTOR us Rhonda PÉREZ LAB BLOOD ORDERABLES Final Resul t KIRSTY WE[facility] [place] Kirsty Webb [address], [address] [place] [address] * (ABNORMAL) Comprehensive Metabolic Panel (10/01/2024 11:07 AM FARM OPERATIONS TECHNICAL DIRECTOR) Only the most recent of4 resultswithin the time period is included. Bilirubin Total 0.5 0.0 - 1.2 mg/dL 10/01/2024 11:33 AM FARM OPERATIONS TECHNICAL DIRECTOR [place] Comment:Indocyanine Green (I CG) may cause falsely elevated bilirubin results. Total and direct bilirubin must not be measured from samples containing indocyanine green. False elevation of total bilirubin can be seen in patients with IgG concentrations above 28 g/L. eGFR 52(L) >=60 mL/min/1. 73 sq. m 10/01/2024 11:33 AM FARM OPERATIONS TECHNICAL DIRECTOR [place] Comment: The eGFRcr is calculated [...] G2 fulfill criteria for CKD. Tot Protein 7.1 6.4 - 8.3 gm/dL 10/01/2024 11:33 AM FARM OPERATIONS TECHNICAL DIRECTOR [place] Calcium Level Total 9.1 8.2 - 10.2 mg/dL 10/01/2024 11:33 AM FARM OPERATIONS TECHNICAL DIRECTOR [place] Alkaline Phosphatase 78 35 - 104 U/L 10/01/2024 11:33 AM FARM OPERATIONS TECHNICAL DIRECTOR [place] Albumin Level 3.5 3.5 - 5.2 gm/dL 10/01/2024 11:33 AM FARM OPERATIONS TECHNICAL DIRECTOR [place] AST 16 <=32 U/L 10/01/2024 11:33 AM FARM OPERATIONS TECHNICAL DIRECTOR [place] ALT 6 <=33 U/L 10/01/2024 11:33 AM FARM OPERATIONS TECHNICAL DIRECTOR [place] Sodium Level 139 136 - 145 mmol/L 10/01/2024 11:33 AM FARM OPERATIONS TECHNICAL DIRECTOR [place] Potassium Level 3.2(L) 3.4 - 4.5 mmol/L 10/01/2024 11:33 AM [facility] [place] Chloride 101 98 - 107 mmol/L 10/01/2024 11:33 AM FARM OPERATIONS TECHNICAL DIRECTOR [place] CO2 27 22 - 29 mmol/L 10/01/2024 11:33 AM [facility] [place] Anion Gap 11 4 - 14 mmol/L 10/01/2024 11:33 AM [facility] [place] Creatinine 1.12(H) 0.51 - 0.95 mg/dL 10/01/2024 11:33 AM [facility] [place] BUN 10 6 - 23 mg/dL 10/01/2024 11:33 AM [facility] [place] Glucose Level 102(H) 70 - 99 mg/dL 10/01/2024 11:33 AM [facility] [place] Comment: Effective 04/19/16, the glucose reference intervals have been updated based on [place] [employer] guidelines (Standards of Medical Care in Diabetes 2016. Diabetes Care 2016; 39: S13-S22). Fasting blood glucose: Normal: 70-99 mg/dL Impaired fasting glucose (increased risk for diabetes or pre-diabetes): 100-125 mg/dL Diabetes mellitus: >/=126 mg/dL Random blood glucose: Normal: 70-199 mg/dL Note: Random glucose >100 mg/dL is associated with increased risk for diabetes. Blood Peripheral blood specimen / Unknown Venipuncture / Unknown 10/01/2024 11:07 AM FARM OPERATIONS TECHNICAL DIRECTOR 10/01/2024 11:11 AM FARM OPERATIONS TECHNICAL DIRECTOR us Rhonda PÉREZ LAB BLOOD ORDERABLES Final Resul t KIRSTY [facility] [address], [address] [place] [address] * (ABNORMAL) Urinalysis w/Microscopic if Indicated (10/01/2024 11:07 AM FARM OPERATIONS TECHNICAL DIRECTOR) Only the most recent of2 resultswithin the time period is included. Urine Appearance Hazy(A) Clear 10/01/19 25 11:38 AM [facility] [place] [facility] Urine Color Yellow Colorless, Straw, Light Yellow, Yellow, Dark Yellow, Straw-Yello w 10/01/2024 11:38 AM [facility] [place] [facility] Urine Specific [place] 1.020 1.003 - 1.035 10/01/2024 11:38 AM FARM OPERATIONS TECHNICAL DIRECTOR [place] Urine pH 6.0 5.0 - 8.0 10/01/2024 11:38 AM FARM OPERATIONS TECHNICAL DIRECTOR [place] Urine Glucose Negative Negative mg/dL 10/01/2024 11:38 AM FARM OPERATIONS TECHNICAL DIRECTOR [place] Urine Ketones Negative Negative mg/dL 10/01/2024 11:38 AM FARM OPERATIONS TECHNICAL DIRECTOR [place] Urine Blood Small(A) Negative 10/01/2024 11:38 AM FARM OPERATIONS TECHNICAL DIRECTOR [place] Urine Protein Trace(A) Negative mg/dL 10/01/2024 11:38 AM FARM OPERATIONS TECHNICAL DIRECTOR [place] Urine Bilirubin Negative Negative 11:38 AM FARM OPERATIONS TECHNICAL DIRECTOR [place] Urine Urobilinogen Negative Negative 10/01/2024 11:38 AM FARM OPERATIONS TECHNICAL DIRECTOR [place] Urine Nitrite Positive(A) Negative 10/01/2024 11:38 AM FARM OPERATIONS TECHNICAL DIRECTOR [place] Urine Leukocyte Esterase Negative Negative 10/01/2024 11:38 AM FARM OPERATIONS TECHNICAL DIRECTOR [place] Urine Voided urine specimen / Unknown Non-blood Collection / Unknown 10/01/2024 11:07 AM FARM OPERATIONS TECHNICAL DIRECTOR 10/01/2024 11:11 AM FARM OPERATIONS TECHNICAL DIRECTOR [facility] [place] - 10/01/2024 11:38 AM FARM OPERATIONS TECHNICAL DIRECTOR Some reporting parameters within the Urinalysis test have changed due to the implementation of new instrumentation in the Main [facility], allowing greater sensitivity of measurement. Urinalysis results reported by the [facility] Centers using existing instrumentation, as well as Urinalysis testing performed manually or by back-up methodology at the main campus, will remain relatively unchanged. New reporting parameters and units will now be reported for all campuses. Rhonda PÉREZ URINE ORDERABLES Final Result [facility] [address], [address] [place] [address] * Culture, Urine (10/01/2024 11:07 AM FARM OPERATIONS TECHNICAL DIRECTOR) Only the most recent of2 resultswithin the time period is included. Urine Culture No Growth. 10/03/2024 12:02 PM FARM OPERATIONS TECHNICAL DIRECTOR [facility] Urine Voided urine specimen / Unknown Non-blood Collection / Unknown 10/01/2024 11:07 AM FARM OPERATIONS TECHNICAL DIRECTOR 10/01/2024 11:11 AM FARM OPERATIONS TECHNICAL DIRECTOR Rhonda PÉREZ MICROBIOLOGY - GENERAL ORDERABLE S Final Result [facility] Unless otherwise noted, all lab tests performed by: Division of Pathology and Laboratory Medicine [facility] [place] [address] * (ABNORMAL) CA 125 (10/01/2024 11:07 AM FARM OPERATIONS TECHNICAL DIRECTOR) Only the most recent of3 resultswithin the time period is included. Cancer Antigen 125 108.7(H) <=38.0 U/mL 10/01/2024 11:46 AM FARM OPERATIONS TECHNICAL DIRECTOR [place] [facility] Blood Peripheral blood specimen / Unknown Venipuncture / Unknown 10/01/2024 11:07 AM FARM OPERATIONS TECHNICAL DIRECTOR 10/01/2024 11:11 AM FARM OPERATIONS TECHNICAL DIRECTOR Narrative [place] - 10/01/2024 11:46 AM FARM OPERATIONS TECHNICAL DIRECTOR Results greater than 11,500.0 U/mL may not be reliable due to matrix effect with extended dilution as it exceeds the hot stick man's recommended limit. Caution should be exercised when interpreting such values and done in conjunction with clinical context. This test is measured by electrochemiluminescence immunoassay on [employer] immunoassay analyzers. Results obtained in different methods are not interchangeable. Reference intervals are not available for male patients. Results should be interpreted in conjunction with clinical context. Rhonda PÉREZ LAB BLOOD ORDERABLES Final Resul t Performing Organization Address City/[facility] Co de Phone Number [facility] [address], [address] [place] [address] * T3 (10/01/2024 11:07 AM FARM OPERATIONS TECHNICAL DIRECTOR) Triiodothyronine 119 80 - 200 ng/dL 10/01/2024 11:46 AM FARM OPERATIONS TECHNICAL DIRECTOR [facility] Blood Peripheral blood specimen / Unknown Venipuncture / Unknown 10/01/2024 11:07 AM FARM OPERATIONS TECHNICAL DIRECTOR 10/01/2024 11:11 AM FARM OPERATIONS TECHNICAL DIRECTOR Rhonda PÉREZ LAB BLOOD ORDERABLES Final Resul t [facility] [place] [address], [facility] [address] [place] [address] * (ABNORMAL) TSH (10/01/2024 11:07 AM FARM OPERATIONS TECHNICAL DIRECTOR) Only the most recent of4 resultswithin the time period is included. Thyroid Stimulating Hormone 5.35(H) 0.27 - 4.20 mcunit/mL 10/01/2024 11:46 AM FARM OPERATIONS TECHNICAL DIRECTOR [facility] Blood Peripheral blood specimen / Unknown Venipuncture / Unknown 10/01/2024 11:07 AM FARM OPERATIONS TECHNICAL DIRECTOR 10/01/2024 11:11 AM FARM OPERATIONS TECHNICAL DIRECTOR Rhonda PÉREZ LAB BLOOD ORDERABLES Final Resul t Performing Organization Address City/[facility]/ZIP Co de Phone Number [facility] [address], [facility] [address] [place] [address] * (ABNORMAL) Free T4 (10/01/2024 11:07 AM FARM OPERATIONS TECHNICAL DIRECTOR) Only the most recent of3 resultswithin the time period is included. T4 (Thyroxine) Free 1.80(H) 0.92 - 1.68 ng/dL 10/01/2024 11:46 AM FARM OPERATIONS TECHNICAL DIRECTOR [facility] Blood Peripheral blood specimen / Unknown Venipuncture / Unknown 10/01/2024 11:07 AM FARM OPERATIONS TECHNICAL DIRECTOR 10/01/2024 11:11 AM FARM OPERATIONS TECHNICAL DIRECTOR Rhonda PÉREZ LAB BLOOD ORDERABLES Final Resul t [address], [address] [place] [address] * Phosphorus Level (10/01/2024 11:07 AM FARM OPERATIONS TECHNICAL DIRECTOR) Only the most recent of2 resultswithin the time period is included. Phosphorus Level 2.9 2.5 - 4.5 mg/dL 10/01/2024 11:33 AM FARM OPERATIONS TECHNICAL DIRECTOR [facility] Blood Peripheral blood specimen / Unknown Venipuncture / Unknown 10/01/2024 11:07 AM FARM OPERATIONS TECHNICAL DIRECTOR 10/01/2024 11:11 AM FARM OPERATIONS TECHNICAL DIRECTOR Rhonda PÉREZ LAB BLOOD ORDERABLES Final Resul t Performing Organization Address [facility]/ZIP Co de Phone Number [address], [address] [place] [address] * (ABNORMAL) Magnesium Level (10/01/2024 11:07 AM FARM OPERATIONS TECHNICAL DIRECTOR) Only the most recent of12 resultswithin the time period is included. Magnesium Level 1.3(L) 1.6 - 2.6 mg/dL 10/01/2024 11:33 AM FARM OPERATIONS TECHNICAL DIRECTOR CHEYENNE WELLS Blood Peripheral blood specimen / Unknown Venipuncture / Unknown 10/01/2024 11:07 AM FARM OPERATIONS TECHNICAL DIRECTOR 10/01/2024 11:11 AM FARM OPERATIONS TECHNICAL DIRECTOR Rhonda PÉREZ LAB BLOOD ORDERABLES Final Resul t Performing Organization Address [facility] Co de Phone Number [address], [address] [place] [phone] * (ABNORMAL) LDH (10/01/2024 11:07 AM FARM OPERATIONS TECHNICAL DIRECTOR) Only the most recent of2 resultswithin the time period is included. LDH 332(H) 135 - 214 U/L 10/01/2024 11:38 AM FARM OPERATIONS TECHNICAL DIRECTOR CHEYENNE WELLS Blood Peripheral blood specimen / Unknown Venipuncture / Unknown 10/01/2024 11:07 AM FARM OPERATIONS TECHNICAL DIRECTOR 10/01/2024 11:11 AM FARM OPERATIONS TECHNICAL DIRECTOR Narrative CHEYENNE WELLS - 10/01/2024 11:38 AM FARM OPERATIONS TECHNICAL DIRECTOR Results greater than 1651 U/L may not be reliable due to matrix effect with extended dilution as it exceeds the hot stick man's recommended limit. Caution should be exercised when interpreting such values and done in conjunction with clinical context. Rhonda PÉREZ LAB BLOOD ORDERABLES Final Resul t Performing Organization Address City/[facility]/ZIP Co de Phone Number [address], [address] [place] [address] * Cortisol, Total (10/01/2024 11:07 AM FARM OPERATIONS TECHNICAL DIRECTOR) Cortisol 14.64 mcg/dL 10/01/2024 11: 46 AM FARM OPERATIONS TECHNICAL DIRECTOR CHEYENNE WELLS Blood Peripheral blood specimen / Unknown Venipuncture / Unknown 10/01/2024 11:07 AM FARM OPERATIONS TECHNICAL DIRECTOR 10/01/2024 11:11 AM FARM OPERATIONS TECHNICAL DIRECTOR Narrative CHEYENNE WELLS - 10/01/2024 11:46 AM FARM OPERATIONS TECHNICAL DIRECTOR Cortisol reference intervals are established for the morning hours from 6-10 am and afternoon hours 4-8 pm. Due to circadian rhythm of cortisol levels in serum and plasma, the sample collection time must be noted. Caution should be exercised when interpreting such values and done in conjunction with clinical context. Serum Cortisol Reference Ranges for >/= 21 years old: Morning (6-10 am): 4.82 - 19.5 mcg/dL Afternoon (4-8 pm): 2.47 - 11.9 mcg/dL Rhonda PÉREZ LAB BLOOD ORDERABLES Final Resul t [facility] [address], [address] [place] [address] * XR Chest 2 Views (09/24/2024 11:58 AM FARM OPERATIONS TECHNICAL DIRECTOR) Anatomical Region Laterality Modality Chest Digital Radiogra phy 09/24/2024 12:5 1 PM FARM OPERATIONS TECHNICAL DIRECTOR Impressions 09/24/2024 12:52 PM FARM OPERATIONS TECHNICAL DIRECTOR Stable appearance of the chest. ACTIONABLE ITEMS/RECOMMENDATIONS*: None. *An Actionable Finding is a finding that may be unrelated to the original reason for imaging but potentially actionable, meaning further investigation may be necessary. The Actionable Findings Vigilance Unit (AFVU) assists medical providers with responding to additional radiologic findings that are unexpected and potentially actionable. Narrative 09/24/2024 12:52 PM FARM OPERATIONS TECHNICAL DIRECTOR FULL RESULT: Examination: XR CHEST 2 VW on 09/24/2024 11:58 AM. 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 Lungs/Pleura/Mediastinum: The cardiac silhouette is unchanged. No pneumothorax. No new opacities. Bones: The visualized osseous structures are unchanged. Procedure Note Jan Cobb MD, MD - 09/24/2024 FULL RESULT: Examination: XR CHEST 2 VW on 09/24/2024 11:58 AM. 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 Lungs/Pleura/Mediastinum: The cardiac silhouette is unchanged. Nopneumothorax. No new opacities. Bones: The visualized osseous structures are unchanged. IMPRESSION: Stable appearance of the chest. ACTIONABLE ITEMS/RECOMMENDATIONS*: None. *An Actionable Finding is a finding that may be unrelated to the originalreason for imaging but potentially actionable, meaning furtherinvestigation may be necessary. The Actionable Findings Vigilance Unit(AFVU) assists medical providers with responding to additional radiologicfindings that are unexpected and potentially actionable. Brian Alas MD IMG DIAGNOSTIC IMAGING O RDERABLES Final Result * (ABNORMAL) Respiratory Multiplex PCR Panel, Nasopharyngeal Swab (09/24/2024 10:46 AM FARM OPERATIONS TECHNICAL DIRECTOR) Adenovirus Not Detected Not Detected 09/24/2024 12:15 PM FARM OPERATIONS TECHNICAL DIRECTOR [facility] Coronavirus 229E Not Detected Not Detected 09/24/2024 12:15 PM FARM OPERATIONS TECHNICAL DIRECTOR [facility] Coronavirus HKU1 Not Detected Not Detected 09/24/2024 12:15 PM FARM OPERATIONS TECHNICAL DIRECTOR [facility] Coronavirus NL63 Not Detected Not Detected 09/24/2024 12:15 PM FARM OPERATIONS TECHNICAL DIRECTOR [facility] Coronavirus OC43 Not Detected Not Detected 09/24/2024 12:15 PM FARM OPERATIONS TECHNICAL DIRECTOR [facility] COVID-19 (SARS-CoV-2) Not Detected Not Detected 09/24/2024 12:15 PM FARM OPERATIONS TECHNICAL DIRECTOR [facility] Human Metapneumovirus Not Detected Not Detected 09/24/2024 12:15 PM FARM OPERATIONS TECHNICAL DIRECTOR [facility] Human Rhinovirus/Enterov irus Not Detected Not Detected 09/24/2024 12:15 PM FARM OPERATIONS TECHNICAL DIRECTOR [facility] Influenza A H1 Not Detected Not Detected 09/24/2024 12:15 PM FARM OPERATIONS TECHNICAL DIRECTOR [facility] Influenza A H1 2009 Detected(A) Not Detected 09/24/2024 12:15 PM FARM OPERATIONS TECHNICAL DIRECTOR [facility] Influenza A H3 Not Detected Not Detected 09/24/2024 12:15 PM FARM OPERATIONS TECHNICAL DIRECTOR [facility] Influenza B Not Detected Not Detected 09/24/2024 12:15 PM FARM OPERATIONS TECHNICAL DIRECTOR [facility] Parainfluenza Virus 1 Not Detected Not Detected 09/24/2024 12:15 PM FARM OPERATIONS TECHNICAL DIRECTOR [facility] Parainfluenza Virus 2 Not Detected Not Detected 09/24/2024 12:15 PM FARM OPERATIONS TECHNICAL DIRECTOR [facility] Parainfluenza Virus 3 Not Detected Not Detected 09/24/2024 12:15 PM FARM OPERATIONS TECHNICAL DIRECTOR [facility] Parainfluenza Virus 4 Not Detected Not Detected 09/24/2024 12:15 PM FARM OPERATIONS TECHNICAL DIRECTOR [facility] Respiratory Syncytial Virus Not Detected Not Detected 09/24/2024 12:15 PM [facility] Bordetella parapertussis Not Detected Not Detected 09/24/2024 12:15 PM [facility] Bordetella pertussis Not Detected Not Detected 09/24/2024 12:15 PM FARM OPERATIONS TECHNICAL DIRECTOR [facility] Chlamydophila pneumoniae Not Detected Not Detected 09/24/2024 12:15 PM [facility] Mycoplasma pneumoniae Not Detected Not Detected 09/24/2024 12:15 PM [facility] Swab Nasopharyngeal structure / Unknown Non-blood Collection / Unknown 09/24/2024 10:46 AM FARM OPERATIONS TECHNICAL DIRECTOR 09/24/2024 10:56 AM [facility] - 09/24/2024 12:15 PM FARM OPERATIONS TECHNICAL DIRECTOR The assay is a qualitative multiplex PCR assay to aid in the diagnosis of respiratory pathogens through simultaneous qualitative detection and identification of multiple pathogens directly from nasopharyngeal swabs (HAND HARDENER) from individuals with respiratory symptoms. Testing is performed using the BioFire FilmArray Respiratory Panel 2.1 (RP2.1) on the Tractive System. The following organisms are identified using the ThromboVision RP 2.1 Panel: Adenovirus, Human Coronavirus (229E, HKU1, NL63, and OC43), Severe Acute Respiratory Syndrome Coronavirus 2 (SARS-CoV-2), Human Metapneumovirus, Human Rhinovirus/Enterovirus, Influenza A, including subtypes (H1, H3 and H1-2009), Influenza B, Parainfluenza Virus (1, 2, 3, and 4), Respiratory Syncytial Virus, Bordetella parapertussis, Bordetella pertussis, Chlamydia pneumoniae, and Mycoplasma pneumoniae A result of Not Detected" does not exclude the possibility of the presence of one or more of the pathogens at or below the detection limits of this assay nor does exclude the possibility of pathogens not detected by this panel. Non-infectious causes of respiratory symptoms should also be considered in such cases. Internal controls are used to monitor all stages of the testing process including amplification inhibition. If inhibition is detected, testing is repeated and if inhibition is confirmed the specimen is resulted as "Invalid". When an "Invalid" result occurs, it is recommended to wait 3 days before submitting a new specimen for testing if clinically indicated. This is an FDA-approved assay and its performance characteristics were verified by the microbiology laboratory at the [facility] (CLIA Accreditation # [id number] and CAP Accreditation # [id number]). Results must be interpreted within the context of all relevant clinical and laboratory findings. Assay should not be used for monitoring response to therapy. Brian Alas MD MICROBIOLOGY - GENERAL O RDERABLES Final Result [facility] Unless otherwise noted, all lab tests performed by: Division of Pathology and Laboratory Medicine [address] [place] [phone] * Glucose, Random (09/24/2024 12:26 AM FARM OPERATIONS TECHNICAL DIRECTOR) Only the most recent of8 resultswithin the time period is included. Glucose Random 81 70 - 199 mg/dL 09/24/2024 1:42 AM FARM OPERATIONS TECHNICAL DIRECTOR [facility] Blood Peripheral blood specimen / Unknown Venipuncture / Unknown 09/24/2024 12:26 AM FARM OPERATIONS TECHNICAL DIRECTOR 09/24/2024 1:10 AM FARM OPERATIONS TECHNICAL DIRECTOR Narrative [facility] - 09/24/2024 1:42 AM FARM OPERATIONS TECHNICAL DIRECTOR Effective 04/19/16, the glucose reference intervals have been updated based on [place] [employer] guidelines (Standards of Medical Care in Diabetes 2016. Diabetes Care 2016; 39: S13-S22). Fasting blood glucose: Normal: 70-99 mg/dL Impaired fasting glucose (increased risk for diabetes or pre-diabetes): 100-125 mg/dL Diabetes mellitus: >/=126 mg/dL Random blood glucose: Normal: 70-199 mg/dL Note: Random glucose >100 mg/dL is associated with increased risk for diabetes us Brian Alas MD LAB BLOOD ORDERABLES Fin al Result [facility] Unless otherwise noted, all lab tests performed by: Division of Pathology and Laboratory Medicine [address] [place] [phone] * (ABNORMAL) Differential (09/24/2024 12:26 AM [facility]) Only the most recent of2 resultswithin the time period is included. Total Cells 100 09/24/2024 2:06 AM [facility] Manual Neutrophil % 77.0(H) 43.2 - 72.7 % 09/24/2024 2:06 AM [facility] Comment:The Neutrophil count includes Bands. Manual Lymphocyte % 13.0(L) 16.8 - 46.2 % 09/24/2024 2:06 AM [facility] Manual Monocyte % 10.0 5.1 - 12.5 % 09/24/2024 2:06 AM [facility] Metamyelocyte % 2:06 AM [facility] Comment:The Metamyelocyte co unt includes Myelocytes. Nucleated RBC 1.0 /100 WBC 09/24/2024 2:06 AM [facility] Manual Neutrophil Abs 4.39 1.95 - 7.25 K/uL 09/24/2024 2:06 AM [facility] Manual Lymphocyte Abs 0.74(L) 1.01 - 3.24 K/uL 09/24/2024 2:06 AM [facility] Manual Monocyte Abs 0.57 0.24 - 0.85 K/uL 09/24/2024 2:06 AM [facility] RBC Morphology PRESENT 09/24/2024 2:06 AM [facility] PLT Morph Normal Normal 09/24/2024 2:06 AM [facility] Anisocytosis Present(A) (none) 09/24/2024 2:06 AM [facility] Poikilocytosis Present(A) (none) 09/24/2024 2:06 AM [facility] Ovalocyte Present(A) (none) 09/24/2024 2:06 AM [facility] Jaime Cells Present(A) (none) 09/24/2024 2:06 AM [facility] Blood Peripheral blood specimen / Unknown Venipuncture / Unknown 09/24/2024 12:26 AM FARM OPERATIONS TECHNICAL DIRECTOR 09/24/2024 1:10 AM FARM OPERATIONS TECHNICAL DIRECTOR Brian Alas MD LAB BLOOD ORDERABLES Fin al Result Performing Organization Address City/[facility] de Phone Number [facility] Unless otherwise noted, all lab tests performed by: Division of Pathology and Laboratory Medicine [address] [place] [phone] * Blood Urea Nitrogen (09/24/2024 12:26 AM FARM OPERATIONS TECHNICAL DIRECTOR) Only the most recent of8 resultswithin the time period is included. BUN 11 6 - 23 mg/dL 09/24/2024 1:42 AM [facility] Blood Peripheral blood specimen / Unknown Venipuncture / Unknown 09/24/2024 12:26 AM FARM OPERATIONS TECHNICAL DIRECTOR 09/24/2024 1:10 AM FARM OPERATIONS TECHNICAL DIRECTOR Brian Alas MD LAB BLOOD ORDERABLES Fin al Result Performing Organization Address City/[facility] de Phone Number [facility] Unless otherwise noted, all lab tests performed by: Division of Pathology and Laboratory Medicine [address] [place] [phone] * Sodium Level (09/24/2024 12:26 AM FARM OPERATIONS TECHNICAL DIRECTOR) Only the most recent of8 resultswithin the time period is included. Sodium Level 139 136 - 145 mmol/L 09/24/2024 1:42 AM FARM OPERATIONS TECHNICAL DIRECTOR [facility] Blood Peripheral blood specimen / Unknown Venipuncture / Unknown 09/24/2024 12:26 AM FARM OPERATIONS TECHNICAL DIRECTOR 09/24/2024 1:10 AM FARM OPERATIONS TECHNICAL DIRECTOR Narrative [facility] - 09/24/2024 1:42 AM FARM OPERATIONS TECHNICAL DIRECTOR Reference range established based on adult population Brian Alas MD LAB BLOOD ORDERABLES Fin al Result Performing Organization Address City/[facility] de Phone Number [facility] Unless otherwise noted, all lab tests performed by: Division of Pathology and Laboratory Medicine [address] [place] [phone] * Potassium Level (09/24/2024 12:26 AM FARM OPERATIONS TECHNICAL DIRECTOR) Only the most recent of8 resultswithin the time period is included. Potassium Level 3.8 3.4 - 4.5 mmol/L 09/24/2024 1:42 AM FARM OPERATIONS TECHNICAL DIRECTOR [facility] Blood Peripheral blood specimen / Unknown Venipuncture / Unknown 09/24/2024 12:26 AM FARM OPERATIONS TECHNICAL DIRECTOR 09/24/2024 1:10 AM FARM OPERATIONS TECHNICAL DIRECTOR Narrative [facility] - 09/24/2024 1:42 AM FARM OPERATIONS TECHNICAL DIRECTOR Reference range established based on adult population Brian Alas MD LAB BLOOD ORDERABLES Fin al Result Performing Organization Address City/[facility] Co de Phone Number [facility] Unless otherwise noted, all lab tests performed by: Division of Pathology and Laboratory Medicine [address] [place] [phone] * (ABNORMAL) Creatinine (09/24/2024 12:26 AM FARM OPERATIONS TECHNICAL DIRECTOR) Only the most recent of8 resultswithin the time period is included. Creatinine 1.11(H) 0.51 - 0.95 mg/dL 09/24/2024 1:42 AM FARM OPERATIONS TECHNICAL DIRECTOR [facility] eGFR 52(L) >=60 mL/min/1. 73 sq. m 09/24/2024 1:42 AM FARM OPERATIONS TECHNICAL DIRECTOR [facility] Comment: The eGFRcr is calculated [...] blood specimen / Unknown Venipuncture / Unknown 09/24/2024 12:26 AM FARM OPERATIONS TECHNICAL DIRECTOR 09/24/2024 1:10 AM FARM OPERATIONS TECHNICAL DIRECTOR us Brian Alas MD LAB BLOOD ORDERABLES Fin al Result [facility] Unless otherwise noted, all lab tests performed by: Division of Pathology and Laboratory Medicine [address] [place] [phone] * Chloride Level (09/24/2024 12:26 AM FARM OPERATIONS TECHNICAL DIRECTOR) Only the most recent of8 resultswithin the time period is included. Chloride 105 98 - 107 mmol/L 09/24/2024 1:42 AM FARM OPERATIONS TECHNICAL DIRECTOR [facility] Blood Peripheral blood specimen / Unknown Venipuncture / Unknown 09/24/2024 12:26 AM FARM OPERATIONS TECHNICAL DIRECTOR 09/24/2024 1:10 AM FARM OPERATIONS TECHNICAL DIRECTOR Narrative [facility] - 09/24/2024 1:42 AM FARM OPERATIONS TECHNICAL DIRECTOR Reference range established based on adult population Brian Alas MD LAB BLOOD ORDERABLES Fin al Result Performing Organization Address City/[facility] Co de Phone Number [facility] Unless otherwise noted, all lab tests performed by: Division of Pathology and Laboratory Medicine [address] [place] [phone] * (ABNORMAL) Carbon Dioxide Level (09/24/2024 12:26 AM FARM OPERATIONS TECHNICAL DIRECTOR) Only the most recent of8 resultswithin the time period is included. CO2 20(L) 22 - 29 mmol/L 09/24/2024 1:42 AM FARM OPERATIONS TECHNICAL DIRECTOR [facility] Blood Peripheral blood specimen / Unknown Venipuncture / Unknown 09/24/2024 12:26 AM FARM OPERATIONS TECHNICAL DIRECTOR 09/24/2024 1:10 AM FARM OPERATIONS TECHNICAL DIRECTOR Brian Alas MD LAB BLOOD ORDERABLES Fin al Result Performing Organization Address [facility] de Phone Number [facility] Unless otherwise noted, all lab tests performed by: Division of Pathology and Laboratory Medicine [address] [place] [phone] * Echocardiogram 2D Complete (09/22/2024 1:25 PM FARM OPERATIONS TECHNICAL DIRECTOR) Pathologist [facility] EF 37 ISCV 09/22/2024 11:4 5 AM FARM OPERATIONS TECHNICAL DIRECTOR Narrative [facility] - 09/22/2024 2:22 PM FARM OPERATIONS TECHNICAL DIRECTOR Version 2 Echocardiographic Report Interpretation Summary A complete two-dimensional transthoracic echocardiogram was performed (2D, M- mode, Spectral and color Doppler). The study was technically difficult. Patient is in Atrial Fibrillation. Patient is tachycardic. Compared to prior study dated : 11/23/2023 . LV EF is lower with new regional wall motion abnormalities. There is new-onset RV dilation and dysfunction as well as worsening tricuspid regurgitation. The left ventricle is normal in size. Left ventricular systolic function is moderately reduced. LV ejection fraction calculated using the bi-plane method of disks is 37 %. The RV is moderate to severely dilated. The right ventricular systolic function and contractility is severely reduced. There is moderate to severe tricuspid regurgitation. There is no pericardial effusion. Cardiolology notified at 2:18 PM on 09/22/2024. Left Ventricle: The left ventricle is normal in size. There is normal left ventricular wall thickness. Left ventricular systolic function is moderately reduced. LV ejection fraction calculated using the bi-plane method of disks is 37 %. There are regional wall motion abnormalities as specified. I WMSI = 1.88 % Normal = 38 X - Cannot 1 - Normal 2 - 3 - Akinetic 4 - Dyskinetic Interpret Hypokinetic 5 - Aneurysmal 3D imaginD volumes were not performed in this study. Cardiac Mechanics/Speckle Tracking Imaging: Speckle tracking imaging was not performed in this study. ([employer] Study). Diastology: Unable to evaluate due to tachycardia. Right Ventricle: The RV is dilated. The right ventricular systolic function and contractility is reduced. Atria: The left atrial size is normal. Right Atrium is dilated. Mitral Valve: The mitral valve is normal in structure and function. There is trace mitral regurgitation. Tricuspid Valve: The tricuspid valve is not well visualized, but is grossly normal. There is moderate to severe tricuspid regurgitation. Incomplete TR jet. Right ventricular systolic pressure is elevated at least 40-45 mmHg. Aortic Valve: The aortic valve is trileaflet. The aortic valve opens well. Pulmonic Valve: The pulmonic valve is not well seen, but is grossly normal. Trace pulmonic valvular regurgitation. Great Vessels: The aortic root is normal size. The inferior vena cava is dilated with decreased respiratory variation. Pericardium/Pleural: There is no pericardial effusion. Preliminary Reviewer Preliminary Interpretation: Janice Saucedo MD. MMode/2D Measurements IVSd: 1.1 cm LVIDd: 4.0 cm LVIDs: 3.2 cm LVPWd: 0.98 cm FS: 20.4 % Ao root diam: 2.6 cm Ao root area: 5.3 cm2 LA dimension: 4.0 cm LVOT diam: 2.2 cm EDV(MOD-A4C): 77.8 ml LVOT area: 3.6 cm2 ESV(MOD-A4C): 48.3 ml EF(MOD-A4C): 37.9 % EDV(MOD-A2C): 91.6 ml ESV(MOD-A2C): 58.7 ml EDV(MOD-bp): 86.7 ml EF(MOD-A2C): 36.0 % ESV(MOD-bp): 54.9 ml EF(MOD-bp): 36.7 % LAV(MOD-A2C): 36.0 ml EDV (MOD-bp) Index: 45.4 ml/m2 LAV(MOD-A4C): 27.3 ml LAV(MOD-bp): 33.8 ml LAV(MOD-bp) Indexed: 17.7 ml/m2 RWT: 0.48 cm ESV (MOD-bp) Index: 28.7 ml/m2 TAPSE (>1.6): 1.8 cm Doppler Measurements MV E max cassidy: 77.0 cm/sec MV V2 max: 109.1 cm/sec MV max P.8 mmHg MV V2 mean: 57.3 cm/sec MV mean P.7 mmHg MV V2 VTI: 17.3 cm MVA(VTI): 2.5 cm2 Ao V2 max: 140.0 cm/sec LV V1 max P.4 mmHg Ao max P.8 mmHg LV V1 mean P.4 mmHg Ao V2 mean: 85.3 cm/sec LV V1 max: 92.0 cm/sec Ao mean P.4 mmHg LV V1 mean: 55.6 cm/sec Ao V2 VTI: 17.4 cm LV V1 VTI: 11.7 cm JONY(I,D): 2.5 cm2 JONY(V,D): 2.4 cm2 SV(LVOT): 42.7 ml PA V2 max: 108.7 cm/sec PA max P.7 mmHg PA V2 mean: 70.2 cm/sec PA mean P.2 mmHg PA V2 VTI: 15.3 cm TR max cassidy: 264.0 cm/sec RAP systole: 15.0 mmHg TR max P.1 mmHg RVSP(TR): 43.1 mmHg RV S Vel_phl: 7.4 cm/sec JONY Index (I,D): 1.3 JONY Index (V,D): 1.2 Dimensionless Index: 0.66 Procedure Note Vince Crocker MD - 09/22/2024 Version 2 Echocardiographic Report Interpretation Summary A complete two-dimensional transthoracic echocardiogram was performed (2D,M- mode, Spectral and color Doppler). The study was technically difficult.Patient is in Atrial Fibrillation. Patient is tachycardic. Compared [place] study dated : 11/23/2023 . LV EF is lower with new regional wallmotion abnormalities. There is new-onset RV dilation and dysfunction aswell as worsening tricuspid regurgitation. The left ventricle is normal in size. Left ventricular systolic function is moderately reduced. LV ejectionfraction calculated using the bi-plane method of disks is 37 %. The RV is moderate to severely dilated. The right ventricular systolicfunction and contractility is severely reduced. There is moderate to severe tricuspid regurgitation. There is no pericardial effusion. Cardiolology notified at 2:18 PM on 09/22/2024. Left Ventricle: The left ventricle is normal in size. There is normal left ventricularwall thickness. Left ventricular systolic function is moderately reduced.LV ejection fraction calculated using the bi-plane method of disks is 37%. There are regional wall motion abnormalities as specified. I WMSI = 1.88 % Normal = 38 X - Cannot 1 - Normal 2 - 3 - Akinetic 4 - Dyskinetic Interpret Hypokinetic 5 - Aneurysmal 3D imaginD volumes were not performed in this study. Cardiac Mechanics/Speckle Tracking Imaging: Speckle tracking imaging was not performed in this study. ([employer] Study). Diastology: Unable to evaluate due to tachycardia. Right Ventricle: The RV is dilated. The right ventricular systolic function andcontractility is reduced. Atria: The left atrial size is normal. Right Atrium is dilated. Mitral Valve: The mitral valve is normal in structure and function. There is tracemitral regurgitation. Tricuspid Valve: The tricuspid valve is not well visualized, but is grossly normal. Thereis moderate to severe tricuspid regurgitation. Incomplete TR jet. Rightventricular systolic pressure is elevated at least 40-45 mmHg. Aortic Valve: The aortic valve is trileaflet. The aortic valve opens well. Pulmonic Valve: The pulmonic valve is not well seen, but is grossly normal. Trace pulmonicvalvular regurgitation. Great Vessels: The aortic root is normal size. The inferior vena cava is dilated withdecreased respiratory variation. Pericardium/Pleural: There is no pericardial effusion. Preliminary Reviewer Preliminary Interpretation: Janice Saucdeo MD. MMode/2D Measurements IVSd: 1.1 cmLVIDd: 4.0 cm LVIDs: 3.2 cm LVPWd: 0.98 cm FS: 20.4 %Ao root diam: 2.6 cm Ao root area: 5.3 cm2 LA dimension: 4.0 cm LVOT diam: 2.2 cmEDV(MOD-A4C): 77.8 ml LVOT area: 3.6 cm2ESV(MOD-A4C): 48.3 ml EF(MOD-A4C): 37.9 % EDV(MOD-A2C): 91.6 ml ESV(MOD-A2C): 58.7 mlEDV(MOD-bp): 86.7 ml EF(MOD-A2C): 36.0 %ESV(MOD-bp): 54.9 ml EF(MOD-bp): 36.7 % LAV(MOD-A2C): 36.0 mlEDV (MOD-bp) Index: 45.4 ml/m2 LAV(MOD-A4C): 27.3 ml LAV(MOD-bp): 33.8 ml LAV(MOD-bp) Indexed: 17.7 ml/m2 RWT: 0.48 cm ESV (MOD-bp) Index: 28.7 ml/m2 TAPSE (>1.6): 1.8 cm Doppler Measurements MV E max cassidy: 77.0 cm/secMV V2 max: 109.1 cm/sec MV max P.8 mmHg MV V2 mean: 57.3 cm/sec MV mean P.7 mmHg MV V2 VTI: 17.3 cm MVA(VTI): 2.5 cm2 Ao V2 max: 140.0 cm/secLV V1 max P.4 mmHg Ao max P.8 mmHgLV V1 mean P.4 mmHg Ao V2 mean: 85.3 cm/secLV V1 max: 92.0 cm/sec Ao mean P.4 mmHgLV V1 mean: 55.6 cm/sec Ao V2 VTI: 17.4 cmLV V1 VTI: 11.7 cm JONY(I,D): 2.5 cm2 JONY(V,D): 2.4 cm2 SV(LVOT): 42.7 mlPA V2 max: 108.7 cm/sec PA max P.7 mmHg PA V2 mean: 70.2 cm/sec PA mean P.2 mmHg PA V2 VTI: 15.3 cm TR max cassidy: 264.0 cm/secRAP systole: 15.0 mmHg TR max P.1 mmHg RVSP(TR): 43.1 mmHg RV S Vel_phl: 7.4 cm/secAVA Index (I,D): 1.3 JONY Index (V,D): 1.2Dimensionless Index: 0.66 Brian Alas MD CV ECHO ORDERABLES Edite d Result - Final Performing Organization Address [facility] Co de Phone Number ISCV * Calcium Ionized, Venous (09/22/2024 2:49 AM FARM OPERATIONS TECHNICAL DIRECTOR) [facility] Venous Ionized Calcium 1.21 1.15 - 1.29 mmol/L 09/22/2024 3:01 AM FARM OPERATIONS TECHNICAL DIRECTOR [facility] Oxygen FLOW Rate/ FiO2 2 % 09/22/2024 3:01 AM FARM OPERATIONS TECHNICAL DIRECTOR [facility] O2 Therapy Nasal cannula 09/22/2024 3:01 AM FARM OPERATIONS TECHNICAL DIRECTOR [facility] Blood Peripheral blood specimen / Unknown Venipuncture / Unknown 09/22/2024 2:49 AM FARM OPERATIONS TECHNICAL DIRECTOR 09/22/2024 2:56 AM FARM OPERATIONS TECHNICAL DIRECTOR Hao Mahan APRN LAB BLOOD ORDERABLES Shyann l Result Performing Organization Address [facility] [place] de Phone Number [facility] Unless otherwise noted, all lab tests performed by: Division of Pathology and Laboratory Medicine [address] [place] [id number] * EKG, 12-Lead (Portable) (09/22/2024) Only the most recent of2 resultswithin the time period is included. Hao Mahan APRN ECG ORDERABLES Final Res ult Performing Organization Address [facility] Co de Phone Number MAYRA IECG * (ABNORMAL) Gastrointestinal Multiplex PCR Panel (09/21/2024 11:37 PM FARM OPERATIONS TECHNICAL DIRECTOR) [facility] Campylobacter Not Detected Not Detected 09/22/2024 2:54 AM FARM OPERATIONS TECHNICAL DIRECTOR [facility] Plesiomonas shigelloides Not Detected Not Detected 09/22/2024 2:54 AM FARM OPERATIONS TECHNICAL DIRECTOR [facility] Salmonella Not Detected Not Detected 09/22/2024 2:54 AM [facility] Vibrio Not Detected Not Detected 09/22/2024 2:54 AM [facility] Vibrio cholerae Not Detected Not Detected 09/22/2024 2:54 AM FARM OPERATIONS TECHNICAL DIRECTOR [facility] Yersinia enterocolitica Not Detected Not Detected 09/22/2024 2:54 AM FARM OPERATIONS TECHNICAL DIRECTOR [facility] Enteroaggregative E. coli (EAEC) Not Detected Not Detected 09/22/2024 2:54 AM FARM OPERATIONS TECHNICAL DIRECTOR [facility] Enteropathogenic E. coli (EPEC) Not Detected Not Detected 09/22/2024 2:54 AM [facility] Enterotoxigenic E. coli (ETEC) LT/ST Detected(A) Not Detected 09/22/2024 2:54 AM [facility] Comment:Susceptibility testi on E. coli pathotypes (EAEC, EPEC, and/or ETEC) cannot be performed because these organisms are not readily isolated in bacterial culture. Shiga-like toxin-producing E. coli (STEC) Stx1/Stx2 Not Detected Not Detected 09/22/2024 2:54 AM [facility] E. coli O157 N/A Not Detected 09/22/2024 2:54 AM [facility] Shigella/Enteroinvas ines E. coli (EIEC) Not Detected Not Detected 09/22/2024 2:54 AM [facility] Cryptosporidium Not Detected Not Detected 09/22/2024 2:54 AM [facility] Cyclospora cayetanensis Not Detected Not Detected 09/22/2024 2:54 AM [facility] Entamoeba histolytica Not Detected Not Detected 09/22/2024 2:54 AM [facility] Giardia lamblia Not Detected Not Detected 09/22/2024 2:54 AM [facility] Adenovirus F40/41 Not Detected Not Detected 09/22/2024 2:54 AM [facility] Astrovirus Not Detected Not Detected 09/22/2024 2:54 AM [facility] Norovirus GI/GII Not Detected Not Detected 09/22/2024 2:54 AM [facility] Rotavirus A Not Detected Not Detected 09/22/2024 2:54 AM [facility] Sapovirus (I, II, IV, V) Not Detected Not Detected 09/22/2024 2:54 AM [facility] C. difficile Refer to separate C. difficile DNA Detection assay for results. 09/22/2024 2:54 AM [facility] Stool Rectum structure / Unknown Non-blood Collection / Unknown 09/21/2024 11:37 PM FARM OPERATIONS TECHNICAL DIRECTOR 09/22/2024 12:23 AM [facility] - 09/22/2024 2:54 AM [facility] The assay is a qualitative multiplex PCR assay to aid in the diagnosis of gastrointestinal infection through simultaneous qualitative detection and identification of multiple GI pathogens in diarrheal specimens collected in [employer] transport media obtained from individuals suspected of gastrointestinal infections. Testing is performed using the AccruentArray Gastrointestinal (GI) Panel on the [employer] System. The following organisms are identified using the ThromboVision GI Panel: Campylobacter spp., Plesiomonas shigelloides, Salmonella spp, Vibrio spp, including specific identification of Vibrio cholerae, Yersinia enterocolitica, Enteroaggregative Escherichia coli (EAEC), Enteropathogenic Escherichia coli (EPEC), Enterotoxigenic Escherichia coli (ETEC), Shiga-like toxin-producing Escherichia coli (STEC) including specific identification of the E. coli O157, Shigella spp/Enteroinvasive Escherichia coli (EIEC), Cryptosporidium, Cyclospora cayetanensis, Entamoeba histolytica, Giardia lamblia, Adenovirus F 40/41, Astrovirus, Norovirus GI/GII, Rotavirus, and Sapovirus. C. difficile testing is NOT reported in this assay and should be ordered separately. A result of Not Detected" does not exclude the possibility of the presence of one or more of the pathogens at or below the detection limits of this assay nor does it exclude the possibility of diarrheal pathogens not detected by this panel. Non-infectious causes of diarrhea should also be considered in such cases. Internal controls are used to monitor all stages of the testing process including amplification inhibition. If inhibition is detected, testing is repeated and if inhibition is confirmed the specimen is resulted as "Invalid". When an "Invalid" result occurs, it is recommended to wait 3 days before submitting a new specimen for testing if clinically indicated. This is an FDA-approved assay and its performance characteristics were verified by the microbiology laboratory at the [facility]. Results must be interpreted within the context of all relevant clinical and laboratory findings. Assay should not be used for monitoring response to therapy. Sherrell Pedro ARRIETAN MICROBIOLOGY - GENERAL ORDERABL ES Final Result [facility] Unless otherwise noted, all lab tests performed by: Division of Pathology and Laboratory Medicine [address] [place] [id number] * C. difficile DNA Detection (09/21/2024 11:37 PM FARM OPERATIONS TECHNICAL DIRECTOR) C. difficile - DNA Negative Negative 09/22/2024 9:23 AM FARM OPERATIONS TECHNICAL DIRECTOR [facility] C. difficile - EIA Test Not Performed Negative 09/22/2024 9:23 AM FARM OPERATIONS TECHNICAL DIRECTOR [facility] C. difficile - Interpretation C. difficile DNA detection was negative making C. difficile infection highly unlikely in this patient. EIA not performed. 09/22/2024 9:23 AM FARM OPERATIONS TECHNICAL DIRECTOR [facility] Stool Rectum structure / Unknown Non-blood Collection / Unknown 09/21/2024 11:37 PM FARM OPERATIONS TECHNICAL DIRECTOR 09/22/2024 12:23 AM FARM OPERATIONS TECHNICAL DIRECTOR Narrative [facility] - 09/22/2024 9:23 AM FARM OPERATIONS TECHNICAL DIRECTOR Qualitative detection of C. difficile DNA performed using helicase-dependent amplification of a conserved region of a pathogenicity locus (PaLoc) in toxigenic C. difficile strains. It is an FDA-approved assay performed on the [employer] Instrument from [employer] and is intended for use as an aid in diagnosis of C. difficile infections. Testing is performed only on liquid stools. Detection of C difficile DNA does not differentiate between infection versus colonization. Stool specimens that are positive for C. difficile DNA undergo toxin antigen testing by C difficile EIA. The C. difficile EIA detects the presence of C. difficile Toxin A and B proteins via a rapid immunoassay using the FDA-approved ImmunoCard by [employer]. Patients positive for BOTH C. difficile DNA and toxin proteins by EIA are more likely to have a C. difficile infection. However, patients positive only for C. difficile DNA but negative for toxins by EIA are less likely to have a C. difficile infection and may represent asymptomatic colonization. Recommend clinical assessment in these cases. If significant diarrhea is present, C. difficile infection remains a possibility. When invalid results are obtained by either the primary or reflex method, a new specimen should be collected for repeat testing if clinically indicated. The performance characteristics of the C. difficile DNA and EIA assays were verified by the microbiology laboratory at the [facility]. Results must be interpreted within the context of all relevant clinical and laboratory findings. us Sherrell Pedro ARRIETAN MICROBIOLOGY - GENERAL ORDERABL ES Final Result [facility] Unless otherwise noted, all lab tests performed by: Division of Pathology and Laboratory Medicine [address] [place] [id number] * CT Chest Pulmonary Embolism with Contrast (09/21/2024 5:09 PM FARM OPERATIONS TECHNICAL DIRECTOR) Anatomical Region Laterality Modality Chest Computed Tomogra phy 09/21/2024 5:31 PM FARM OPERATIONS TECHNICAL DIRECTOR Impressions 09/21/2024 5:35 PM FARM OPERATIONS TECHNICAL DIRECTOR No CT evidence of pulmonary embolism. ACTIONABLE ITEMS/RECOMMENDATIONS*: None. *An Actionable Finding is a finding that may be unrelated to the original reason for imaging but potentially actionable, meaning further investigation may be necessary. The Actionable Findings Vigilance Unit (AFVU) assists medical providers with responding to additional radiologic findings that are unexpected and potentially actionable. Narrative 09/21/2024 5:35 PM FARM OPERATIONS TECHNICAL DIRECTOR FULL RESULT: Examination: CT CHEST PULMONARY EMBOLISM W CONTRAST on 09/21/2024 5:09 PM. Clinical History: Serous cystadenocarcinoma, NOS of endometrium Indication: Tachycardia (HR more than 100 bpm), DVT signs or symptoms, Pulmonary embolism suspected Comparison: 06/26/2024 Technique: CT of the chest is performed using intravenous contrast. Findings: Pulmonary arteries: No CT evidence of pulmonary embolism. Tubes and lines: None. Lungs/Airways/Pleura: The central airways are patent. There is no evidence of consolidation. Scattered small calcified and noncalcified pulmonary nodules are again present. Neck/Mediastinum/Nodes/Heart: The heart is enlarged. There is no pericardial effusion. There is a small hiatus hernia. Atherosclerotic calcifications are present in the thoracic aorta and coronary arteries. Upper abdomen: Evaluation of the upper abdomen is limited by technique. The visualized upper abdomen is unchanged from the CT of the abdomen and pelvis dated 09/19/2024. Bones/Soft Tissues: The visualized osseous structures and soft tissues are unchanged. Procedure Note Jan Cobb MD - 09/21/2024 FULL RESULT: Examination: CT CHEST PULMONARY EMBOLISM W CONTRAST on 09/21/2024 5:09PM. Clinical History: Serous cystadenocarcinoma, NOS of endometrium Indication: Tachycardia (HR more than 100 bpm), DVT signs or symptoms,Pulmonary embolism suspected Comparison: 06/26/2024 Technique: CT of the chest is performed using intravenous contrast. Findings: Pulmonary arteries: No CT evidence of pulmonary embolism. Tubes and lines: None. Lungs/Airways/Pleura: The central airways are patent. There is no evidenceof consolidation. Scattered small calcified and noncalcified pulmonarynodules are again present. Neck/Mediastinum/Nodes/Heart: The heart is enlarged. There is nopericardial effusion. There is a small hiatus hernia. Atheroscleroticcalcifications are present in the thoracic aorta and coronary arteries. Upper abdomen: Evaluation of the upper abdomen is limited by technique.The visualized upper abdomen is unchanged from the CT of the abdomen andpelvis dated 09/19/2024. Bones/Soft Tissues: The visualized osseous structures and soft tissues areunchanged. IMPRESSION: No CT evidence of pulmonary embolism. ACTIONABLE ITEMS/RECOMMENDATIONS*: None. *An Actionable Finding is a finding that may be unrelated to the originalreason for imaging but potentially actionable, meaning furtherinvestigation may be necessary. The Actionable Findings Vigilance Unit(AFVU) assists medical providers with responding to additional radiologicfindings that are unexpected and potentially actionable. Brian Alas MD IM CT ORDERABLES Final Result * MRSA Screening Culture (09/21/2024 7:50 AM FARM OPERATIONS TECHNICAL DIRECTOR) MRSA Screening Culture No Methicillin-Resist ant Staphylococcus aureus isolated. 09/23/2024 10:15 AM FARM OPERATIONS TECHNICAL DIRECTOR [facility] Swab (Nares, Right) Non-blood Collection / Unknown 09/21/2024 7:50 AM FARM OPERATIONS TECHNICAL DIRECTOR 09/21/2024 7:59 AM FARM OPERATIONS TECHNICAL DIRECTOR Narrative [facility] - 09/23/2024 10:15 AM FARM OPERATIONS TECHNICAL DIRECTOR Testing is performed using PBP2a antigen detection and cefoxitin screen on isolated S. aureus colonies. This methodology may not detect uncommon mechanisms of methicillin resistance in S. aureus. us Brian Alas MD MICROBIOLOGY - GENERAL O RDERABLES Final Result [facility] Unless otherwise noted, all lab tests performed by: Division of Pathology and Laboratory Medicine [address] [place] [id number] * XR Abdomen 1 View Portable (09/20/2024 1:34 AM FARM OPERATIONS TECHNICAL DIRECTOR) Anatomical Region Laterality Modality Abdomen Digital Radiogra phy 09/20/2024 1:35 AM FARM OPERATIONS TECHNICAL DIRECTOR Impressions 09/20/2024 1:43 AM FARM OPERATIONS TECHNICAL DIRECTOR 1. NG tube in good position with tip terminating at the level of the gastric body. ACTIONABLE ITEMS/RECOMMENDATIONS*: None. *An Actionable Finding is a finding that may be unrelated to the original reason for imaging but potentially actionable, meaning further investigation may be necessary. The Actionable Findings Vigilance Unit (AFVU) assists medical providers with responding to additional radiologic findings that are unexpected and potentially actionable. 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 Comparison: CT of the abdomen and pelvis on 09/19/2024 TECHNIQUE: XR ABDOMEN 1 VW PORTABLE FINDINGS: NG tube is visualized with tip terminating in the region of the gastric body. Lung bases are clear. Persistent loops of the small bowel that appear to be dilated ranging between 5.4 and 5.5 cm in keeping with small bowel obstruction with transition point in the left lower abdomen/pelvis as described on recent CT. No lytic or blastic lesions are identified. 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 Comparison: CT of the abdomen and pelvis on 09/19/2024 TECHNIQUE: XR ABDOMEN 1 VW PORTABLE FINDINGS: NG tube is visualized with tip terminating in the region of the gastricbody. Lung bases are clear. Persistent loops of the small bowel that appear to be dilated rangingbetween 5.4 and 5.5 cm in keeping with small bowel obstruction withtransition point in the left lower abdomen/pelvis as described on recentCT. No lytic or blastic lesions are identified. IMPRESSION: 1. NG tube in good position with tip terminating at the level of thegastric body. ACTIONABLE ITEMS/RECOMMENDATIONS*: None. *An Actionable Finding is a finding that may be unrelated to the originalreason for imaging but potentially actionable, meaning furtherinvestigation may be necessary. The Actionable Findings Vigilance Unit(AFVU) assists medical providers with responding to additional radiologicfindings that are unexpected and potentially actionable. Brian Alas MD IMG DIAGNOSTIC IMAGING O RDERABLES Final Result * Blood Culture (09/20/2024 12:29 AM FARM OPERATIONS TECHNICAL DIRECTOR) Blood Culture No Growth. 09/25/2024 2:01 AM FARM OPERATIONS TECHNICAL DIRECTOR [facility] Blood Peripheral blood specimen / Unknown Venipuncture / Unknown 09/20/2024 12:29 AM FARM OPERATIONS TECHNICAL DIRECTOR 09/20/2024 12:39 AM FARM OPERATIONS TECHNICAL DIRECTOR Sherrell Vasquez APRN MICROBIOLOGY - GENERAL ORDERABL ES Final Result [facility] Unless otherwise noted, all lab tests performed by: Division of Pathology and Laboratory Medicine [address] [place] [id number] * CT Abdomen Pelvis with IV Contrast (09/19/2024 7:15 PM FARM OPERATIONS TECHNICAL DIRECTOR) Anatomical Region Laterality Modality Abdomen, Pelvis Computed Tomogra phy 09/19/2024 7:20 PM FARM OPERATIONS TECHNICAL DIRECTOR Impressions 09/19/2024 7:30 PM FARM OPERATIONS TECHNICAL DIRECTOR Enlarging peritoneal metastases invading large and small bowel loops in the pelvis and causing small bowel obstruction. ACTIONABLE ITEMS/RECOMMENDATIONS*: None. *An Actionable Finding is a finding that may be unrelated to the original reason for imaging but potentially actionable, meaning further investigation may be necessary. The Actionable Findings Vigilance Unit (AFVU) assists medical providers with responding to additional radiologic findings that are unexpected and potentially actionable. Narrative 09/19/2024 7:30 PM FARM OPERATIONS TECHNICAL DIRECTOR FULL RESULT: Examination: CT ABDOMEN PELVIS W CONTRAST on 09/19/2024 7:15 PM. Clinical History: 74-year-old female with endometrial cancer presenting to the emergency central with abdominal pain. Indication: Abdominal Pain. Comparison: CT chest abdomen and pelvis 06/26/2024. Technique: CT ABDOMEN PELVIS W CONTRAST. FINDINGS: Lower Thorax: No suspicious pulmonary nodules in the lung bases. Hepatobiliary: No suspicious hepatic lesion. The gallbladder is absent with some associated biliary prominence. Spleen: No splenomegaly. Pancreas: No mass or ductal dilatation. Adrenal Glands: No mass. Kidneys, Ureters, Bladder: No hydronephrosis. There are multiple renal cortical cysts. No bladder mass. Gastrointestinal Tract: There are dilated ileal loops with obstruction in the pelvis by enlarging tumor masses invading the large and small bowel loops. Pelvic Organs: There are multiple masses in the pelvis that have increased since previously and are seen to invade the sigmoid colon as well as multiple small bowel loops causing small bowel obstruction. A credit and collections representative mass in the left lower quadrant measures approximately 5 cm (series 3 image 125) compared to 2 cm previously. A lesion in the right mid abdomen measures 3.5 cm (series 3 image 77) compared to 1.8 cm previously. Peritoneum/Retroperitoneum: There is small volume ascites in the abdomen pelvis with multiple enlarging peritoneal deposits causing small bowel obstruction. Lymph Nodes: No new or enlarging lymph nodes are seen in the abdomen or pelvis. Musculoskeletal: No suspicious skeletal lesion. A cystic focus in the left gluteal subcutaneous tissues is stable, probably a sebaceous cyst. Procedure Note Ashlie Roldan MD - 09/19/2024 FULL RESULT: Examination: CT ABDOMEN PELVIS W CONTRAST on 09/19/2024 7:15 PM. Clinical History: 74-year-old female with endometrial cancer presenting tot emergency central with abdominal pain. Indication: Abdominal Pain. Comparison: CT chest abdomen and pelvis 06/26/2024. Technique: CT ABDOMEN PELVIS W CONTRAST. FINDINGS: Lower Thorax: No suspicious pulmonary nodules in the lung bases. Hepatobiliary: No suspicious hepatic lesion. The gallbladder is absentwith some associated biliary prominence. Spleen: No splenomegaly. Pancreas: No mass or ductal dilatation. Adrenal Glands: No mass. Kidneys, Ureters, Bladder: No hydronephrosis. There are multiple renalcortical cysts. No bladder mass. Gastrointestinal Tract: There are dilated ileal loops with obstruction inthe pelvis by enlarging tumor masses invading the large and small bowelloops. Pelvic Organs: There are multiple masses in the pelvis that have increasedsince previously and are seen to invade the sigmoid colon as well asmultiple small bowel loops causing small bowel obstruction. Arepresentative mass in the left lower quadrant measures approximately 5 cm(series 3 image 125) compared to 2 cm previously. A lesion in the rightmid abdomen measures 3.5 cm (series 3 image 77) compared to 1.8 cmpreviously. Peritoneum/Retroperitoneum: There is small volume ascites in the abdomenpelvis with multiple enlarging peritoneal deposits causing small bowelobstruction. Lymph Nodes: No new or enlarging lymph nodes are seen in the abdomen orpelvis. Musculoskeletal: No suspicious skeletal lesion. A cystic focus in the leftgluteal subcutaneous tissues is stable, probably a sebaceous cyst. IMPRESSION: Enlarging peritoneal metastases invading large and small bowel loops inthe pelvis and causing small bowel obstruction. ACTIONABLE ITEMS/RECOMMENDATIONS*: None. *An Actionable Finding is a finding that may be unrelated to the originalreason for imaging but potentially actionable, meaning furtherinvestigation may be necessary. The Actionable Findings Vigilance Unit(AFVU) assists medical providers with responding to additional radiologicfindings that are unexpected and potentially actionable. us Jose Alfredo Oliveira MD IM CT ORDERABLES Final Result * (ABNORMAL) POC Chem 8 without Hemoglobin and Hematocrit (09/19/2024 3:51 PM FARM OPERATIONS TECHNICAL DIRECTOR) POC Sodium 136(L) 138 - 146 mmol/L 09/19/2024 3:54 PM [facility] POC Potassium 4.5 3.5 - 4.9 mmol/L 09/19/2024 3:54 PM [facility] POC Chloride 102 98 - 109 mmol/L 09/19/2024 3:54 PM [facility] POC VTCO2 23(L) 24 - 29 mmol/L 09/19/2024 3:54 PM [facility] POC Anion Gap 17 10 - 20 mmol/L 09/19/2024 3:54 PM [facility] POC BUN 31(H) 8 - 26 mg/dL 09/19/2024 3:54 PM [facility] POC Creatinine 1.4(H) 0.6 - 1.3 mg/dL 09/19/2024 3:54 PM [facility] Comment:Medications, especia lly hydroxyurea or supplements, such as ascorbate, can interfere with test results causing a falsely and significantly higher result than expected. If a problem is suspected with a patient's result, a sample should be sent to the laboratory for confirmatory testing. POC I Glu 77 70 - 99 mg/dL 09/19/2024 3:54 PM [facility] Comment:Medications, especia lly hydroxyurea or supplements, such as ascorbate, can interfere with test results causing a falsely and significantly higher result than expected. If a problem is suspected with a patient's result, a sample should be sent to the laboratory for confirmatory testing. POC Ionized Calcium 1.17 1.12 - 1.32 mmol/L 09/19/2024 3:54 PM [facility] POC Sample Type Venous 3:54 PM [facility] POC eGFR 40(L) >=60 mL/min/1.7 3 sq. m 09/19/2024 3:54 PM [facility] Comment: The eGFRcr is calculated with the [...] nor G2 fulfill criteria for CKD. Blood 09/19/2024 3:51 PM FARM OPERATIONS TECHNICAL DIRECTOR 09/19/2024 3:54 PM FARM OPERATIONS TECHNICAL DIRECTOR Narrative [facility] - 09/19/2024 3:54 PM FARM OPERATIONS TECHNICAL DIRECTOR Method description: The i-STAT is an analyzer [...] measure analyte concentration by an electrochemical assay. us Alfa Nixon MD POINT OF CARE TEST ORDERABLES F inal Result [facility] Unless otherwise noted, all lab tests performed by: Division of Pathology and Laboratory Medicine [address] [place] [id number] * (ABNORMAL) Fractionated Bilirubin (09/19/2024 3:33 PM FARM OPERATIONS TECHNICAL DIRECTOR) Bilirubin Direct 0.4(H) 0.0 - 0.2 mg/dL 09/19/2024 4:18 PM FARM OPERATIONS TECHNICAL DIRECTOR [facility] Comment:Indocyanine Green (I CG) may cause falsely elevated bilirubin results. Total and direct bilirubin must not be measured from samples containing indocyanine green. Bilirubin Indirect 0.5 0.0 - 1.0 mg/dL 09/19/2024 4:18 PM FARM OPERATIONS TECHNICAL DIRECTOR [facility] Bilirubin Total 0.9 0.0 - 1.2 mg/dL 09/19/2024 4:18 PM FARM OPERATIONS TECHNICAL DIRECTOR [facility] Comment: Indocyanine Green (ICG) may cause falsely elevated bilirubin results. Total and direct bilirubin must not be measured from samples containing indocyanine green. False elevation of total bilirubin can be seen in patients with IgG concentrations above 28 g/L. Indocyanine Green (ICG) may cause falsely elevated bilirubin results. Total and direct bilirubin must not be measured from samples containing indocyanine green. False elevation of total bilirubin can be seen in patients with IgG concentrations above 28 g/L. Blood Peripheral blood specimen / Unknown Venipuncture / Unknown 09/19/2024 3:33 PM FARM OPERATIONS TECHNICAL DIRECTOR 09/19/2024 3:41 PM FARM OPERATIONS TECHNICAL DIRECTOR Jose Alfredo Oliveira MD LAB BLOOD ORDERABLES Final Resu lt Performing Organization Address [facility]/ZIP Co de Phone Number [facility] Unless otherwise noted, all lab tests performed by: Division of Pathology and Laboratory Medicine [address] [place] [id number] * Lipase (09/19/2024 3:33 PM FARM OPERATIONS TECHNICAL DIRECTOR) Lipase Level 27 13 - 60 U/L 09/19/2024 4:18 PM FARM OPERATIONS TECHNICAL DIRECTOR [facility] Blood Peripheral blood specimen / Unknown Venipuncture / Unknown 09/19/2024 3:33 PM FARM OPERATIONS TECHNICAL DIRECTOR 09/19/2024 3:41 PM FARM OPERATIONS TECHNICAL DIRECTOR Narrative [facility] - 09/19/2024 4:18 PM FARM OPERATIONS TECHNICAL DIRECTOR Reference range established based on adult population Jose Alfredo Oliveira MD LAB BLOOD ORDERABLES Final Resu lt [facility] Unless otherwise noted, all lab tests performed by: Division of Pathology and Laboratory Medicine [address] [place] [phone] * Amylase (09/19/2024 3:33 PM FARM OPERATIONS TECHNICAL DIRECTOR) Amylase Level 40 28 - 100 U/L 09/19/2024 4:18 PM FARM OPERATIONS TECHNICAL DIRECTOR [facility] Blood Peripheral blood specimen / Unknown Venipuncture / Unknown 09/19/2024 3:33 PM FARM OPERATIONS TECHNICAL DIRECTOR 09/19/2024 3:41 PM FARM OPERATIONS TECHNICAL DIRECTOR Jose Alfredo Oliveira MD LAB BLOOD ORDERABLES Final Resu lt [facility] Unless otherwise noted, all lab tests performed by: Division of Pathology and Laboratory Medicine [address] [place] [id number] * IR US GUIDED BIOPSY ABDOMINAL (08/27/2024 3:20 PM FARM OPERATIONS TECHNICAL DIRECTOR) Anatomical Region Laterality Modality Abdomen/Pelvis, Organ (Other) Co mputed Tomography Narrative 08/27/2024 3:53 PM FARM OPERATIONS TECHNICAL DIRECTOR Table formatting from the original result was not included. Date of Procedure: 08/27/24 Attending Physician: Bartolo Kellogg MD Toll Gate Keeper: None Pre Procedure Diagnosis: Serous cystadenocarcinoma, NOS [...] follow-up with Interventional Radiology required. Rhonda PÉREZ IM IR ORDERABLES Final Result * Pathology Biopsy Interpretation (08/27/2024 2:50 PM FARM OPERATIONS TECHNICAL DIRECTOR) Submitted Clinical History Serous cystadenocarcinoma, NOS of endometrium [C54.1] 08/29/2024 5:25 PM [facility] Diagnosis A: Left pelvic mass biopsy: FRAGMENTS OF HIGH GRADE CARCINOMA, CONSISTENT WITH KNOWN HISTORY OF UTERINE SEROUS CARCINOMA. (SEE COMMENT) BCL/FHMT 08/29/2024 5:25 PM [facility] Comment Immunohistochemical stains are performed and show the tumor cells to be positive for cytokeratin 7 (patchy), PAX8, SOX17, p53 (aberrant, over-expressed) and MD (95%, strong). ER shows no definitive nuclear expression, with cytoplasmic staining in 80% of cells. The findings are consistent with the above diagnosis. 08/29/2024 5:25 PM [facility] Gross Description A: Left pelvic mass biopsy: Multiple friable nicole-white cores and core fragments measuring 1.5 x 0.4 x 0.1 cm in aggregate, entirely submitted in A1. GM 08/29/2024 5:25 PM [facility] Biomarker Block(s) Block for biomarker testing: A1 Normal block: N/A 08/29/2024 5:25 PM [facility] Disclaimer "Some tests reported here may have been developed and performance characteristics determined by [facility] Pathology and Laboratory Medicine. These tests have not been specifically cleared or approved by the U.S. Food and Drug Administration. If applicable, controls were reviewed and showed appropriate reactivity." 08/29/2024 5:25 PM [facility] Tissue (Pelvic Mass) 08/27/2024 2:50 PM FARM OPERATIONS TECHNICAL DIRECTOR 08/28/2024 7:51 AM FARM OPERATIONS TECHNICAL DIRECTOR us Rhonda PÉREZ LAB PATHOLOGY ORDERABLES Final R esult [facility] [address] [place] [address], [place] * (ABNORMAL) Basic Metabolic Panel- Total Calcium (08/27/2024 1:35 PM FARM OPERATIONS TECHNICAL DIRECTOR) Only the most recent of2 resultswithin the time period is included. eGFR 52(L) >=60 mL/min/1. 73 sq. m 08/27/2024 2:00 PM [facility] Comment: The eGFRcr is calculated with the [...] 8.2 - 10.2 mg/dL 08/27/2024 2:00 PM [facility] Sodium Level 139 136 - 145 mmol/L 08/27/2024 2:00 PM [facility] Potassium Level 4.2 3.4 - 4.5 mmol/L 08/27/2024 2:00 PM [facility] Chloride 101 98 - 107 mmol/L 08/27/2024 2:00 PM [facility] CO2 27 22 - 29 mmol/L 08/27/2024 2:00 PM [facility] Anion Gap 11 4 - 14 mmol/L 08/27/2024 2:00 PM [facility] Creatinine 1.12(H) 0.51 - 0.95 mg/dL 08/27/2024 2:00 PM [facility] BUN 18 6 - 23 mg/dL 08/27/2024 2:00 PM [facility] Glucose Level 95 70 - 99 mg/dL 08/27/2024 2:00 PM [facility] Comment: Effective 04/19/16, the glucose reference intervals have been updated based on [place] [employer] guidelines (Standards of Medical Care [...] Unknown Venipuncture / Unknown 08/27/2024 1:35 PM FARM OPERATIONS TECHNICAL DIRECTOR 08/27/2024 1:36 PM FARM OPERATIONS TECHNICAL DIRECTOR us Gloria PÉREZ-C LAB BLOOD ORDERABLES Final Resul t Performing Organization Address City/[facility]/ZIP Ia de Phone Number [facility] [address], Room [id number] [place] [address] * Prothrombin Time with INR (08/27/2024 1:35 PM FARM OPERATIONS TECHNICAL DIRECTOR) Only the most recent of2 resultswithin the time period is included. Prothrombin Time 14.4 12.2 - 14.4 second(s) 08/27/2024 2:11 PM [facility] International Normalization Ratio 1.10 0.91 - 1.10 08/27/2024 2:11 PM FARM OPERATIONS TECHNICAL DIRECTOR [facility] Blood Peripheral blood specimen / Unknown Venipuncture / Unknown 08/27/2024 1:35 PM FARM OPERATIONS TECHNICAL DIRECTOR 08/27/2024 1:36 PM FARM OPERATIONS TECHNICAL DIRECTOR us Gloria H Calles PA-C LAB BLOOD ORDERABLES Final Resul t [facility] [address], Room [id number] [place] [address] * MD DILLON FRASER: Mutation Analysis Precision Panel Interpretation and Report (08/06/2024 3:08 PM FARM OPERATIONS TECHNICAL DIRECTOR) Source Material [id number] 11:37 AM FARM OPERATIONS TECHNICAL DIRECTOR [facility] Tumor Block B2 08/25/2024 11:37 AM FARM OPERATIONS TECHNICAL DIRECTOR [facility] *Normal Control Material PB 08/25/2024 11:37 AM FARM OPERATIONS TECHNICAL DIRECTOR MOLECULAR DIAGNOSTICS Interpretation Hyacinth [facility] [id number] SNVs/Indels CNVs Fusions TMB MSI More than 5 genes. See details ASXL1 ERBB2 None 4 mut/Mb Stable (KIESHA) Somatic Mutations (SNVs/Indels) Gene DNA Protein Location VAF Type AXIN2 c.347G>C p.G116A Exon 2 63% SNV - Missense DDR2 c.2101C>A p.L701I Exon 16 6% SNV - [facility]ense FGFR2 c.755C>G p.S252W Exon 7 52% SNV - Missense KMT2C c.77515T>G p.G9175D Exon 52 39% SNV - Missense PDCD1 c.808G>A p.G270S Exon 5 27% SNV - [facility]ense PRKDC c.664G>C p.G222R Exon 7 17% SNV - [facility]ense TP53 c.743G>A p.R248Q Exon 7 66% SNV - Missense Copy Number Variations (CNVs) Gene Finding Genomic Position Cytoband ASXL1 Amplification [id number] 5146 20q11.21 ERBB2 Amplification chr17:[id number] 4297 17q12 Gene Fusions None Identified Clinical [...] Gene Genomic Variant COSMIC dbSNP ClinVar AXIN2 chr17:[id number] C>G c.347G>C p.G116A DDR2 chr1:385857329 C>A c.2101C>A p.L701I FGFR2 chr10:[id number] G>C c.755C>G p.S252W [id number] KMT2C chr7:531923216 A>C c.96017E>G p.A0069N PDCD1 chr2:076905405 C>T c.808G>A p.G270S PRKDC chr8:47836770 C>G c.664G>C p.G222R TP53 chr17:1192083 C>T c.743G>A p.R248Q [id number] Link to COSMIC: [email or web address] Link to dbSNP: https://www.ncbi.nl .nih.gov/snp Link to [...] specimens (See Appendix Table 1 and 2). [employer] employs DNA extracted from both tumor tissue [...] enriched with custom hybrid-capture, 120nt dsDNA probes. [employer] assay uses the [employer] next generation sequencing platform and bidirectional paired-end sequencing to identify nucleic acid variants for all coding regions from most genes in the panel, the TERT promoter, 1 non-coding RNA gene, and clinically relevant rearrangements. Reported somatic mutations are identified by comparison to the human genome reference sequence GRCh37/hg19 and reviewed in [employer] against a process-matched normal control. Data analysis is performed in house by the [employer] Bioinformatics pipeline (BIP) which relies on the dual-duplex molecular barcoding for consensus analysis to reduce sequencing artifacts and achieve greater sensitivity and positive predictive value. [employer] is intended to provide tumor mutation profiling in accordance with institutional guidelines in oncology for patients with solid malignant neoplasms. Report annotation and software: A post-variant calling analysis and annotation tool, [employer] version 2.0.0.9, was used in the construction of this report. The following additional software tools were utilized in the experimental setup and bioinformatic analysis: [employer] Control Software 1.7, [email or web address] Real Time Analysis Software 3.4.4, [employer] Application Center 10.2 and [employer] BIP v1.0. Detailed information about the signal-processing, [...] (MSI-H) and microsatellite stable (KIESHA) reported by [facility] is based on the analysis of [...] of greater than or equal to 100 ZYG-dusyo-gnnryuhes , collapsed reads (minimum 100x coverage). Mutations [...] ACVR1B BTG1* CUL4B EXO1 GRIN2A JAK1 MPL [id number] PTPRT SETD2 TET1 ACVR2A BTG2* CUX1 EZH2 GRM3 JAK2 MRE11 PDGFB QKI SF3B1 TET2 ADGRA2 BTK CXCR4 FADD GSK3B JAK3 MSH2 PDGFRA RAB35 SGK1 TFE3 AJUBA BUB1 CYLD FANCA H1-2* JESSA MSH3 PDGFRB RAC1 SH2B3 TGFB1 AKT1 CALR RCV2C67 FANCC H2AX* KAT6A MSH6 PDK1 RAD21 SH2D1A TGFBR1 AKT2 CARD11 DAXX FANCD2 H2BC5* KDM5A MST1 PER1 RAD50 SHLD1 TGFBR2 AKT3 CASP8 BQGXY4S FANCE H3-3A* KDM5C MST1R PGD RAD51 SHLD2 ITCR125 AKTIP CBFB FGBG4V5 FANCF H3-3B* KDM6A MTAP PGR RLQ28VT5 SHPRH TMPRSS2 ALK CBL DDB1 FANCG H3-4* KDR MTOR PHF6 RAD51B SHQ1 TNF ZMAT87S CCN6 DDR1 FANCI H3-5* KEAP1 MUTYH PHOX2B RAD51C NTW07A2 TNFAIP3 AMER1 CCNA2 DDR2 FANCL H3C1* JENN MXD4 LCI5Q7U RAD51D SLIT2 BWMEYT87 ANKRD11 CCND1 DDX3X FANCM H3C10* KIT MYB BUN4R6M RAD52 SLX4 TOP1 APC CCND2 DICER1 FAS H3C11* KLF4 MYC PIK3C3 RAD54L SMAD2 TOP2A AR CCND3 DIS3 FAT1 H3C12* KLHL6 MYCL PIK3CA RAF1 SMAD3 TOP3A ARAF CCNE1 DLL3 FBXW7 H3C13* KMT2A MYCN PIK3CB JAKE SMAD4 TOPBP1 ARFRP1 CD274 DNA2 FGF10 H3C2* KMT2B MYD88 PIK3CD RASA1 SMARCA2 TP53 ARID1A CD276 DNAJB1 FGF14 H3C3* KMT2C MYOD1 PIK3CG RB1 SMARCA4 PC88YE9 ARID1B CD74 DNMT1 FGF19 H3C4* KMT2D NBN PIK3R1 RBM10 SMARCAD1 TP53I3 ARID2 CD79A DNMT3A FGF23 H3C6* KNSTRN NCOA3 PIK3R2 RECQL4 SMARCB1 TP63 ARID5B CD79B DNMT3B FGF3 H3C7* KRAS NCOR1 PIK3R3 REL SMARCD1 TRAF2 ASCC3 CD8A DOT1L FGF4 H3C8* LATS1 NEGR1 PIM1 RET SMC1A TRAF7 ASPM CDC20 E2F3 FGF5 HDAC2 LATS2 NF1 PLCG1 REV3L SMC3 ZTJUWR93 ASXL1 CDC27 EED FGF6 HDAC9 LCK NF2 [...] RIT1 SOX9 WRN RAPHAEL CDKN1B EP300 FLT4 IHR50VS0 MAP2K4 NPM1 POLE RMI1 SPEN WT1 B2M CDKN2A EPCAM FOXA1 HIN74YX8 MAP2K7 NRAS POLQ RMI2* SPOP XIAP BAP1 CDKN2B EPHA2 FOXL2 ICOSLG MAP3K1 NSD1 PPARG RNF43 SRC XPO1 BARD1 CDKN2C* EPHA3 FOXO1 ID3* FCE9J31 NSD3 PPM1D ROS1 SRSF2 XRCC2 BBC3 CEBPA EPHA5 FOXP1 IDH1 DBT0X48 NT5C2 IMH0V4N RPA1 SSBP1 XRCC3 BCL10 CENPA EPHA7 FRS2 IDH2 MAP3K4 NTRK1 YGG8Z3M RPA2 STAG2 XRCC4 BCL11A CENPE EPHB1 FTO IFNGR1 MAPK1 NTRK2 IGZ8T8H RPA3* STAT3 XRCC5 BCL2 CHAF1A ERBB2 FUBP1 IGF1 MAPK3 NTRK3 PPP4R4 RPA4 STAT4 XRCC6 BCL2L1 CHEK1 ERBB3 FYN IGF1R MAPK8 NUP93 PPP6C MPR2CA7 STAT5A YAP1 IYM7X43 CHEK2 ERBB4 GABRA6 IGF2 MAX NUTM1 PRC1 VSQ7LQ9 STAT5B YES1 BCL2L2* CIC ERCC1 UFWK88U IKBKE MCL1 PAK1 PRDM1 XMS8AU2 STK11 ZFHX3 BCL6 COL2A1 ERCC2 GATA1 IKZF1 MDC1 PAK3 PREX2 RPTOR STK19 PJL226 BCOR COP1 ERCC3 GATA2 IL10 MDM2 PAK5 PRG4 RSPO1 STK40 QCL387 BCORL1 CREBBP ERCC4 GATA3 IL7R MDM4 PALB2 NTCGX0Q RSPO2 SUFU ZRSR2 BCR CRKL ERCC5 GATA4 INHA MED12 PARP1 PRKCI RUNX1 SUZ12 BIRC2 CRLF2 ERCC6 GATA6 INHBA MEF2B PARP2 PRKDC GYOK1K6 SYK BIRC3 CSF1R ERG GEN1 INO80 MEN1 [...] 1 NUTM1 introns: 1 RET introns: 7-11 MXH70Z5 introns: 4 BRAF introns: 7-10 EGFR introns: [...] the Molecular Diagnostic Laboratory (MDL) at the [facility]. It has not been cleared by the U.S. Food and Drug Administration. However, such approval is not required for clinical implementation, and the test results on the ordered genes have been shown to be clinically useful. This laboratory is CAP accredited and CLIA certified to perform high complexity molecular testing for clinical purposes. 08/25/2024 11:37 AM [facility] Pathologist Signature . Test performed on 08/23/2024 08/25/2024 11:37 AM [facility] MOLECULAR DIAGNOSTICS Microsatellite Instability (MSI) by NGS MSI-Stable 08/25/2024 11:37 AM FARM OPERATIONS TECHNICAL DIRECTOR [facility] Tumor Mutational Fairplay (TMB) 4 mut/Mb 08/25/2024 11:37 AM FARM OPERATIONS TECHNICAL DIRECTOR [facility] Tissue Non-blood Collection / Unknown 08/06/2024 3:08 PM FARM OPERATIONS TECHNICAL DIRECTOR 08/06/2024 3:08 PM FARM OPERATIONS TECHNICAL DIRECTOR Narrative This result has genomic variants that were not included in this document. Rhonda PÉREZ [facility] MOLECULAR BIOMARKERS Shyann l Result [facility] [address] [address], MOLECULAR DIAGNOSTICS [facility] Molecular Diagnostics Laboratory [address] [place] [address] * RNA Hold (08/06/2024 3:08 PM FARM OPERATIONS TECHNICAL DIRECTOR) Tissue Non-blood Collection / Unknown 08/06/2024 3:08 PM FARM OPERATIONS TECHNICAL DIRECTOR 08/06/2024 3:08 PM FARM OPERATIONS TECHNICAL DIRECTOR us Rhonda PÉREZ [facility] BIOMARKER WORKUPS Final R esult MOLECULAR DIAGNOSTICS [facility] Molecular Diagnostics Laboratory [address] [place] [address] * CT chest abdomen pelvis w contrast [...] are unexpected and potentially actionable. Rhonda PÉREZ IMG CT ORDERABLES Final Result * (ABNORMAL) POC Creatinine (06/26/2024 11:21 AM CDT) POC Creatinine 1.1 0.6 - 1.3 mg/dL 06/26/2024 11:23 AM CDT [facility] DI[facility]ST[facility] IM[facility] Comment:Medications, especia lly hydroxyurea or supplements, such as ascorbate, can interfere with test results causing a falsely and significantly higher result than expected. If a problem is suspected with a patient's result, a sample should be sent to the laboratory for confirmatory testing. POC eGFR 53(L) >=60 mL/min/1.7 3 sq. m 06/26/2024 11:23 AM CDT [facility] DI[facility]ST[facility] Comment: The [...] CDT 06/26/2024 11:23 AM CDT Narrative [facility] - 06/26/2024 11:23 AM CDT Method description: [...] measure analyte concentration by an electrochemical assay. us Deonna Leiva MD POCT ORDERABLES - DEVICE Fin al Result [facility] Diagnostic Imaging [facility] [id number] [place] [address], [address] [place] [address], [place] * CRP (02/17/2024 6:05 AM CDT) Only the most recent of3 resultswithin the time period is included. CRP (C Reactive Protein) 72.16 mg/L 02/17/2024 7:31 AM CDT [facility] Blood Peripheral blood specimen / Unknown Venipuncture / Unknown 02/17/2024 6:05 AM CDT 02/17/2024 6:22 AM CDT Narrative [facility] - 02/17/2024 7:31 AM CDT Adult Reference ranges for HS CRP assay are as follows: Reference ranges when used to assess cardiac risk: <1.00 mg/L Low cardiovascular risk 1.00-3.00 mg/L Average cardiovascular risk >3.00 mg/L High cardiovascular risk Reference ranges when used to assess inflammatory responses: Less than or equal to 10.00 mg/L. Amilcar Salter MD LAB BLOOD ORDERABLES Fin al Result [facility] Unless otherwise noted, all lab tests performed by: Division of Pathology and Laboratory Medicine [address] [place] [id number] * Archived Material Retrieval (02/14/2024 9:42 AM CDT) Archived Material The test is to be performed on tissue from case [id number]. The case report, slides, and block(s) for the cited accession were retrieved from archives. The pathologist examined the candidate slides and selected case material appropriate to the specifications of the ordered molecular analysis. Unstained sections from the FFPE block, credit and collections representative H&E slide(s), and/or tumor-mapped smear(s) were prepared and forwarded to the Molecular Diagnostic Laboratory where the subject molecular test will be performed. Results will be reported separately. 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 (SEE COMMENT) . [place]/FQ 4 12:57 PM CDT [facility] Comment Immunohistochemical stains show that the neoplastic cells are positive for PAX-8 (diffuse), SOX17 (diffuse), ER (80%, moderate to strong intensity), MD (>90%, strong intensity), and p16 (diffuse). The expression of p53 is aberrant (nuclear over-expression). The histologic and immunohistochemical findings are in keeping with the above diagnosis. 4 12:57 PM CDT [facility] Gross Description A: Recto sigmoid fat margin: Consists of a 0.6 x 0.5 x 0.3 cm nicole-brown cauterized soft tissue fragment. SECTION CODE: A1, specimen submitted in toto for frozen section and permanent.\\ B: Sigmoid colon implant: An excision of fibrofatty tissue measuring 4.6 x 3.1 x 2.6 cm. Sectioning demonstrates pink-nicole to hemorrhagic cut surfaces possibly consistent with tumor. Community Mental Health Worker sections are submitted to the clinical tissue bank. The specimen is entirely submitted in cassettes B1-B12. MF 12:57 PM CDT [facility] Intraoperative Evaluation A: Recto sigmoid fat margin assessment: Scattered atypical cells with crushed artifact. Defer to permanent. PPA/FSE 12:57 PM CDT [facility] Biomarker Block(s) T: B2 N: A 12:57 PM T [facility] Disclaimer "Some tests reported here may have been developed and performance characteristics determined by [facility] Pathology and Laboratory Medicine. These tests have not been specifically cleared or approved by the U.S. Food and Drug Administration. If applicable, controls were reviewed and showed appropriate reactivity." 4 12:57 PM CDT [facility] Tissue (Other) 02/14/2024 8: 35 AM CDT 02/14/2024 8:39 AM CDT Tissue specimen (specimen) (Other) 02/14/2024 9:42 AM CDT 02/14/2024 9:57 AM CDT us Deonna Leiva MD LAB PATHOLOGY ORDERABLES Fin al Result [facility] [address] [place] [address], * Historical ABORh (02/12/2024 2:15 PM CDT) ABORh O POS 02/11/2024 7:00 PM CDT [facility] Blood Peripheral blood specimen / Unknown 02/12/2024 2:15 PM CDT 02/12/2024 2:15 PM CDT Rhonda PÉREZ BLOOD BANK TEST ORDERABLES Final Result [facility] [place] [facility] [address] [place] [address].[address] [place] [address] * ABID Complete (02/12/2024 8:58 AM CDT) Pathologist [facility] ABID Complete Yes 02/12/2024 5:09 PM CDT [facility] Blood Peripheral blood specimen / Unknown Venipuncture / Unknown 02/12/2024 8:58 AM CDT 02/12/2024 9:07 AM CDT Rhonda PÉREZ BLOOD BANK TEST ORDERABLES Final Result [facility] [address] [place] [address] [address] [place] [address] * TMP Interp Auto Antibody Screen Positive (02/12/2024 8:58 AM CDT) Pathologist [facility] TMP Auto Pos ABSC Interp At the [...] transfusion needs. 02/13/2024 11:55 AM CDT [facility] TMP Signature . 02/13/2024 11:55 AM CDT [facility] Blood Peripheral blood specimen / Unknown Venipuncture / Unknown 02/12/2024 8:58 AM CDT 02/12/2024 9:07 AM CDT Rhonda PÉREZ BLOOD BANK TEST ORDERABLES Final Result [facility] [address] [facility] [address] [place] [address] * TMP Interpretation Antibody Identification (02/12/2024 8:58 [...] transfusion needs. 02/13/2024 11:55 AM CDT [facility] TMP Signature . 02/13/2024 11:55 AM CDT [facility] Blood Peripheral blood specimen / Unknown Venipuncture / Unknown 02/12/2024 8:58 AM CDT 02/12/2024 9:07 AM CDT Rhonda PÉREZ BLOOD BANK TEST ORDERABLES Final Result [facility] [address] [place] [address] * aPTT (02/12/2024 8:58 AM CDT) Activated PTT 35.3 24.1 - 35.5 second(s) 02/12/2024 9:40 AM CDT [facility] Blood Peripheral blood specimen / Unknown Venipuncture / Unknown 02/12/2024 8:58 AM CDT 02/12/2024 9:07 AM CDT Narrative [facility] - 02/12/2024 9:40 AM CDT Repeated and verified. Rhonda PÉREZ LAB BLOOD ORDERABLES Final Resul t [facility] [address] [facility], [address] [place] [address] * Antibody Identification (02/12/2024 8:58 AM CDT) ABID 1 Ab Und Specificity 02/12/2024 5:09 PM CDT [facility] Blood Peripheral blood specimen / Unknown Venipuncture / Unknown 02/12/2024 8:58 AM CDT 02/12/2024 9:07 AM CDT Rhonda PÉREZ BLOOD BANK TEST ORDERABLES Final Result [facility] [place] [facility] [address] [place] [address].[address] [place] [address] * (ABNORMAL) Type and Screen (02/12/2024 8:58 AM CDT) ABORh O POS 02/12/2024 8:45 AM CDT [facility] ABSC Positive(A) 02/12/2024 8:45 AM CDT [facility] Clot Expiration 02/15/2024 23:59 02/12/2024 8:45 AM CDT [facility] Historical Record Check Complete 02/12/2024 8:45 AM CDT [facility] Blood Peripheral blood specimen / Unknown Venipuncture / Unknown 02/12/2024 8:58 AM CDT 02/12/2024 9:07 AM CDT Rhonda PÉREZ BLOOD BANK TEST ORDERABLES Final Result [facility] [place] [facility] [address] [place] [address].[address] [place] [address] * Hemoglobin A1c (02/12/2024 8:58 AM CDT) Only the most recent of2 resultswithin the time period is included. Hemoglobin A1c 5.1 4.3 - 5.6 % 9:22 AM CDT [facility] Blood Peripheral blood specimen / Unknown Venipuncture / Unknown 02/12/2024 8:58 AM CDT 02/12/2024 9:07 AM CDT Narrative [facility] - 02/12/2024 9:22 AM CDT HbA1c values >=6.5% are diagnostic of diabetes mellitus. Diagnosis should be confirmed by repeat testing. Therapeutic Action suggested: >8.0% HbA1c; Goal of therapy: <7.0% HbA1c us Rhonda PÉREZ LAB BLOOD ORDERABLES Final Resul t [facility] Kirsty Webb [address] [facility], [address] [place] [address] * Lipid panel (02/04/2024 4:36 PM CDT) Cholesterol Total 145 <=199 mg/dL 02/04/2024 5:40 PM CDT [facility] Comment: ATP III Classification of Total Cholesterol - Primary Target of Therapy (in mg/dL): <200 Desirable 200-239 Borderline high >=240 High Triglyceride 75 <=149 mg/dL 02/04/2024 5:40 PM CDT [facility] Comment: ATP III Classification of Serum Triglycerides Primary Target of Therapy (in mg/dL): <150 Normal 150-199 Borderline high 200-499 High >=500 Very high Non-fasting triglycerides >200 mg/dL may be followed up with a fasting Lipid Panel. Calculated LDL-C may be falsely decreased when non-fasting triglycerides >200 mg/dL. HDL Cholesterol 68 >=40 mg/dL 02/04/2024 5:40 PM CDT [facility] LDL Cholesterol 62 <=100 mg/dL 02/04/2024 5:40 PM CDT [facility] Comment: ATP III Classification of LDL Cholesterol Primary Target of Therapy (in mg/dL): <100 Optimal 100-129 Near optimal/above optimal 130-159 Borderline high 160-189 High >=190 Very high Very Low Density Lipoprotein 15 mg/dL 02/04/2024 5:40 PM CDT [facility] Is patient fasting? Yes 02/03 5:40 PM CDT [facility] Blood Peripheral blood specimen / Unknown Venipuncture / Unknown 02/04/2024 4:36 PM CDT 02/04/2024 4:56 PM CDT us Loren PÉREZ LAB BLOOD ORDERABLES Final R esult [facility] Unless otherwise noted, all lab tests performed by: Division of Pathology and Laboratory Medicine [address] [place] [id number] [facility] Unless otherwise noted, all lab tests performed by: Division of Pathology and Laboratory Medicine [address] [place] [id number] * EKG, 12-Lead (Scheduled) (02/04/2024) MARICHUY Chou APRN ECG ORDERABLES Fi nal Result [facility] * MRI pelvis with and without contrast (11/23/2023 6:01 PM FARM OPERATIONS TECHNICAL DIRECTOR) Anatomical Region Laterality Modality Pelvis Magnetic Resonan ce 11/24/2023 9:42 AM FARM OPERATIONS TECHNICAL DIRECTOR Impressions 11/24/2023 9:58 AM FARM OPERATIONS TECHNICAL DIRECTOR The left lower quadrant peritoneal implant is closely abutting and possibly infiltrating the sigmoid colon and is slowly increasing in size since multiple prior studies including 04/19/2023. ACTIONABLE ITEMS/RECOMMENDATIONS*: See impression. Narrative 11/24/2023 9:58 AM FARM OPERATIONS TECHNICAL DIRECTOR FULL RESULT: Examination: MRI PELVIS W WO [...] ITEMS/RECOMMENDATIONS*: See impression. us Deonna Leiva MD IMG MRI ORDERABLES Final Res ult * Echocardiogram 2D Complete (11/23/2023 2:47 PM FARM OPERATIONS TECHNICAL DIRECTOR) EF 47 ISCV 11/23/2023 2:28 PM FARM OPERATIONS TECHNICAL DIRECTOR Narrative ISCV - 11/23/2023 7:48 PM FARM OPERATIONS TECHNICAL DIRECTOR Echocardiographic Report Interpretation Summary A complete two-dimensional [...] max P.4 mmHg PI dec slope: 132.0 cm/ahu2OIUW(TR): 26.4 mmHg RAP systole: 3.0 mmHgAVA Index (I,D): 1.0 JONY Index (V,D): 1.1Dimensionless Index: 0.60 us Rhonda PÉREZ CV ECHO ORDERABLES Final Result [facility] * PETCT F18 FDG (Fluorodeoxyglucose) without contrast (10/26/2023 11:28 AM FARM OPERATIONS TECHNICAL DIRECTOR) Anatomical Region Laterality Modality Whole Body Positron Emissio n Tomography (PET) 10/29/2023 11:4 5 AM FARM OPERATIONS TECHNICAL DIRECTOR Impressions 10/30/2023 8:21 AM FARM OPERATIONS TECHNICAL DIRECTOR Interval increase in the size and metabolic activity of the left lower quadrant implant. ACTIONABLE ITEMS/RECOMMENDATIONS*: None. (Please note: This document was created using a voice-recognition transcribing system, and incorrect words/phrases may have been inadvertently missed at proof-reading. Please contact me for clarification. If additional information becomes available, an addendum will be issued. Please see full report. Thank you.) Narrative 10/30/2023 8:21 AM FARM OPERATIONS TECHNICAL DIRECTOR FULL RESULT: Examination: 18F-FDG-PET/CT without contrast, 10/26/2023 [...] issued. Please see full report. Thank you.) us Rhonda PÉREZ IMG PETCT ORDERABLES Final Resul t after 10/06/2023 Insurance [employer] MEDICARE HMO COUNT INCLUDES THE [facility] MEDICARE O Advance Directives * Full Code (Latest Code Status on File) Date Activated Date Inactivated Comments 09/19/2024 11:30 PM 09/24/2024 8:30 PM * Full Code Date Activated Date Inactivated Comments 02/14/2024 11:10 AM 02/17/2024 3:12 PM * Full Code Date Activated Date Inactivated Comments 11/28/2016 11:38 AM 11/29/2016 1:23 PM Care Teams Manager Of Health Relationship Specialty Start Date End Date Deonna Leiva MD [email or web address] PCP - General Gynecologic Medical Oncology 10/30/16 06/10/24 Denzel Pritchett "Hattie"MD [email or web address] PCP - External Referring Obstetrics/Gynecology 10/30/16 Mateo Chavez MD [address] [place] [address] [email or web address] [email or web address] - External Primary Care Provider Internal Medicine 11/08/16 [place] [address] [place] [address] [email or web address] [place] PCP - General Gynecological Oncology 06/11/24 David Dobson MD [address] [place] [id number] Consulting Physician Cardiology 12/23/21 Susan Baird MD [address] [place] [address] [email or web address] Consulting Physician Internal Medicine 11/18/21 Star Treviño MD [address] [place] [phone] [email or web address] Consulting Physician Cardiology 11/21/16 Nolberto Israel MD [address] [place] [phone] [email or web address] Consulting Physician Pain Management 12/23/21 Ophelia Craft PA [address] [place] [phone] [email or web address] Physician Toll Gate Keeper Surgical Oncology 02/14/18 Pao Irvin MD [address] [place] [phone] [email or web address] Consulting Physician Internal Medicine 02/04/24 Bong Mcfadden, COREY [address] [place] [address] [email or web address] Wet Process Technician Nursing 09/22/24
[2024-10-05 13:05] LABS: Absolute Lymphocytes (CBC) 1.1 K/uL (0.7-4.9); Absolute Monocytes 0.6 K/uL (0.1-1.3); Absolute Neutrophil 8.7 K/uL (1.8-8.0); Basophils % 0.3 % (0-1.3); Eosinophils % 0.1 % (0-4.4); Hematocrit 32.2 % (36.0-45.0); Hemoglobin 10.7 g/dL (12.0-15.0); Lymphocytes % 10.8 % (15.3-44.8); MCH 30.2 pg (27.0-35.0); MCHC 33.3 g/dL (32.0-36.0); MCV 90.7 fL (80-100); MPV 7.7 fL (7.6-11.3); Monocytes % 5.4 % (3.3-12.3); Neutrophils % 83.4 % (41.7-73.7); Nucleated RBC Absolute Count 0.2 (0-0); Nucleated Red Blood Cells % 1.6 % (0-0); Platelets 310 thou/uL (152-406); RBC Red Blood Cell Count 3.55 M/uL (3.86-4.86); Red Cell Distribution Width 15.5 % (12.1-15.2)
[2024-10-05] MEDS ORDERED: ONDANSETRON 4 MG/2 ML VIAL ONE (13:21)
[2024-10-05] MEDS ORDERED: NA CHLORIDE 0.9% 500 ML ONE (13:22)
[2024-10-05] MEDS ORDERED: METOPROLOL TAR 25 MG TAB ONE ×2 (13:22→13:56)
[2024-10-05] MEDS ORDERED: MAGNESIUM SULFATE 1 gm IVPB 1 GM/100 ML BAG IV ONE (13:22)
[2024-10-05 13:23] LABS: SARS-CoV-2 Antigen CONTROL BLUE LINE VIS/BG OK; SARS-CoV-2 Antigen Rapid Res Negative (Negative)
[2024-10-05 13:24] LABS: Albumin 3.3 g/dL (3.4-5.0); Albumin/Globulin Ratio 0.8 (1.1-1.8); Anion Gap 13.9 mEq/L (5.0-15.0); Bilirubin Total 1.3 mg/dL (0.2-1.0); Globulin 4.2 g/dL (2.3-3.5); Potassium 4.9 mEq/L (3.5-5.1); Protein, Total 7.5 g/dL (6.4-8.2)
[2024-10-05] MEDS ORDERED: METOPROLOL TARTRATE 5 MG/5 ML INJ IV ONE (13:38)
--- NOTE | 2024-10-05 14:45 | RAD REPORT ---
EXAMINATION: CT Abdomen Pelvis Wo Contrast CLINICAL INDICATION: Female, 74 years old. abd pain, cancer, vomiting TECHNIQUE: CT abdomen and pelvis was performed, without IV contrast, as per department protocol. Axia l, sagittal and coronal reconstructions were obtained. One or more of the following dose reduction techniques were used: Automated exposure control, adjustment of the mA and kV according to the patien t size, and iterative reconstruction. Unless otherwise specified, incidental findings do not require dedicated imaging follow-up. COMPARISON: 09/18/2024 FINDINGS: The lack of intravenous contrast limits the sensitivity of this exam for evaluation of solid visceral organs, vascular structures, and retroperitoneum. LOWER CHEST: New small layering bilateral pleural effusions with underlying subsegmental atelectasis. Moderate cardiomegaly, and mild pericardial effusion, also mildly progressive since prior exam LIVER: Normal in size and contour. No focal lesion. BILIARY SYSTEM: Status post cholecystectomy. SPLEEN: Normal size. No focal lesion. PANCREAS: No mass, ductal dilation, or marybeth-pancreatic fluid. ADRENALS: Normal; no mass. KIDNEYS AND URETERS: Stable bilateral cortical exophytic cystic lesions. Normal size and contour. No hydronephrosis. URINARY BLADDER: Normal contour. GASTROINTESTINAL TRACT: Within limits of lack of IV contrast, a heterogeneous left pelvic mass with central foci of gas appears to arise from/involvement of the proximal sigmoid colon, measuring 6.4 x 4.6 cm. Decreased fat stranding along the anteromedial margin of the mass. Small gas locules measur ing 1 cm may represent a contained leak. A separate ovoid anterior left pelvic mass component measures 5.1 x 4.8 cm, appears closely associated with adventitia of a small bowel loop. Overall, thi s component appears larger in size, previously measured 4.6 x 4.3 cm when measured in a similar fashion. Mild wall prominence along the ascending and descending colon, could relate to underdistenti on or nonspecific colitis. No evidence of bowel obstruction, other free air or abscess. Interval improvement of small bowel dilation since that exam. Small volume free pelvic fluid. APPENDIX: Appendix not visualized, but no inflammatory changes in region of appendix.. Again, finding s are concerning for malignancy. LYMPH NODES: No lymphadenopathy. MUSCULOSKELETAL: No acute or suspicious osseous abnormality. ADDITIONAL FINDINGS: Left gluteal region subcutaneous injection granuloma appears stable. IMPRESSION: Pelvic masses concerning for malignancy, largest of which appears to arise from or involve the proxim al sigmoid colon, demonstrating improvement of fat stranding along its anterior/medial periphery since the prior exam, with small locules of extraluminal gas in this region, which may represent a co ntained small leak. The adjacent more peripheral and anterior ovoid component measuring 5.1 cm appears to have increased in size since the prior exam, may represent an omental or small bowel adven titia metastatic deposit. Mild free pelvic fluid seen in the pelvis. Mild wall prominence of the ascending and descending colon, may relate to underdistention, or present nonspecific infectious or inflammatory colitis. Small bowel distention has improved since the prior exam. Small bilateral pleural effusions larger on the right, new since the prior CT.
[2024-10-05 16:03] LABS: Specific Gravity 1.028 (1.005-1.030); Transitional Epithelial <5 /HPF (None Seen); Urine Bacteria <20 /HPF (<20); Urine Bilirubin NEGATIVE (Negative); Urine Blood 2+ (Negative); Urine Clarity Extremely Turbid (Clear); Urine Color Yellow (Yellow); Urine Culture Reflex Order REFLEXED; Urine Glucose TRACE (Negative); Urine Ketones TRACE (Negative); Urine Microscopic Reflex YN ORDER UMIC; Urine Mucus Slight /HPF (None Seen); Urine Nitrite NEGATIVE (Negative); Urine Protein 2+ (Negative); Urine Urobilinogen Normal (Normal); Urine pH 5.5 (5.0-7.0)
--- NOTE | 2024-10-05 17:16 | ER ---
Nurse's Notes [facility] Name: Misa Claros Age: 74 yrs Sex: Female : 1950 Arrival Date: 10/05/2024 Time: 12:15 Bed 8 Private MD: Mateo Chavez V Diagnosis: Persistent atrial fibrillation;Acute kidney failure, unspecified;Muscle weakness (generalized) Presentation: 10/05 12:32 Chief complaint: Patient states: STATES RECENTLY DIAGNOSED WITH ECOLI, ON CHEMO AND WAS db RECENTLY TRANSFERRED TO [facility]. TODAY COMPLAINS OF ABD PAIN, N/V/ DIARRHEA. Coronavirus screen: Client denies travel out of the [place] in the last 14 days. At this time, the client does not indicate any symptoms associated with coronavirus-19. Ebola Screen: Patient negative for fever greater than or equal to 101.5 degrees Fahrenheit, and additional compatible Ebola Virus Disease symptoms Patient denies exposure to infectious person. Patient denies travel to an Ebola-affected area in the 21 days before illness onset. No symptoms or risks identified at this time. 12:32 Method Of Arrival: Wheelchair db 12:36 Initial Sepsis Screen: Does the patient meet any 2 criteria? HR > 90 bpm. Does the db patient have a suspected source of infection? No. Patient's initial sepsis screen is negative. Risk Assessment: Do you want to hurt yourself or someone else? Patient reports no desire to harm self or others. Onset of symptoms was October 05, 2024. 12:36 Acuity: VINOD 2 db Historical: - Allergies: 12:37 Codeine; db 12:37 Iodine; db 12:37 Morphine; db - PMHx: 12:37 Atrial fibrillation; Back pain; Hypertension; sciatica; uterine cancer; diagnosed a db year ago; - PSHx: 12:37 Total abdominal hysterectomy; db - Immunization history:: Adult Immunizations unknown. - Infectious Disease History:: Denies. - Social history:: Smoking status: Patient denies any tobacco usage or history of. - Family history:: not pertinent. - Hospitalizations: : Patient was recently seen at. Screenin:30 [facility] ED Fall Risk Assessment (Adult) History of falling in the last 3 months, ll1 including since admission No falls in past 3 months (0 pts) Confusion or Disorientation No (0 pts) Intoxicated or Sedated No (0 pts) Impaired Gait Yes (1 pt) Mobility Assist Device Used Yes (1 pt) Altered Elimination No (0 pt) Score/Fall Risk Level 0 - 2 = Low Risk Maintained a safe environment, Hourly rounding (assess needs \T\ fall precautionary measures) done. Abuse screen: Denies threats or abuse. Nutritional screening: No deficits noted. Tuberculosis screening: No symptoms or risk factors identified. Assessment: 13:30 General: Appears uncomfortable, Behavior is calm, cooperative, appropriate for age. ll1 Pain: Complains of pain in abdomen. GI: Reports lower abdominal pain, upper abdominal pain, cramping, diarrhea, nausea, vomiting. 14:30 Reassessment: Pt resting in bed with eyes closed, pt's family at bedside, denies any rs5 complaints at this time. . 15:11 Reassessment: No changes from previously documented assessment. walks 5 feet and feels ll1 to weak to continue. Dr. Montilla informed. 15:40 Reassessment: No changes from previously documented assessment. Patient and/or family ll1 updated on plan of care and expected duration. Pain level reassessed. Patient is alert, oriented x 3, equal unlabored respirations, skin warm/dry/pink. 17:00 Reassessment: No changes from previously documented assessment. Patient and/or family ll1 updated on plan of care and expected duration. Pain level reassessed. 18:00 Reassessment: No changes from previously documented assessment. Patient and/or family ll1 updated on plan of care and expected duration. Pain level reassessed. Patient is alert, oriented x 3, equal unlabored respirations, skin warm/dry/pink. 18:57 GI: Bowel sounds present X 4 quads. Abd is soft and non tender X 4 quads. ll1 Vital Signs: 12:36 BP 138 / 105; Pulse 125; Resp 18; Temp 97.6(O); Pulse Ox 96% ; Weight 88.9 kg; Height 5 db ft. 2 in. ; 13:19 Pulse 140; Pulse Ox 100% on R/A; ll1 13:30 BP 153 / 115; Pulse 140; ll1 13:35 BP 145 / 98; Pulse 137; Resp 17; Pulse Ox 97% ; rs5 13:42 BP 130 / 99; Pulse 120; Resp 18; Pulse Ox 98% on R/A; rs5 13:47 BP 143 / 106; Pulse 122; Resp 18; Pulse Ox 99% ; rs5 14:01 BP 136 / 98; Pulse 123; Pulse Ox 100% ; ll1 14:30 BP 140 / 86; Pulse 122; Resp 16 S; Pulse Ox 99% on R/A; rs5 15:40 BP 142 / 94; Pulse 125; Resp 16; Pulse Ox 100% on R/A; ll1 17:00 BP 152 / 82; Pulse 118; Resp 17; Pulse Ox 100% on R/A; ll1 17:12 BP 131 / 106; Pulse 123; Resp 16; Pulse Ox 100% on R/A; ll1 17:59 BP 147 / 100; Pulse 102; Resp 16; Pulse Ox 100% on R/A; ll1 18:56 BP 132 / 101; Pulse 93; Resp 16; Pulse Ox 100% on R/A; ll1 12:36 Body Mass Index 35.85 (88.90 kg, 157.48 cm) db ED Course: 12:16 Patient arrived in ED. am2 12:16 Mateo Chavez MD is Private Physician. am2 12:20 Rj Montilla MD is Attending Physician. rn 12:37 Triage completed. db 12:37 Arm band placed on Patient placed in an exam room. db 12:50 Provided Education on: ER procedures and process. ll1 12:55 Vannessa Cohen, RN is Primary Nurse. ll1 12:57 Urinalysis w/ reflexes Sent. ll1 12:57 Flu Sent. ll1 12:57 Initial lab(s) drawn, by me, sent to lab. COVID swab sent to lab. Flu and/or RSV swab ll1 sent to lab. Inserted saline lock: 22 gauge in right antecubital area, using aseptic technique. Blood collected. Flushed with 10 mL NS. 13:17 CT Abd/Pelvis - Without Contrast In Process Unspecified. EDMS 13:31 Patient has correct armband on for positive identification. Bed in low position. Client ll1 placed on continuous cardiac and pulse oximetry monitoring. NIBP monitoring applied. monitoring and evaluation advisor on. 17:15 Mateo Chavez MD is Hospitalizing Provider. rn 17:43 Inserted saline lock: 22 gauge in left forearm, using aseptic technique. Blood cc6 collected. Flushed with 10 mL NS. 17:56 Blood Culture Adult (2) Sent. ll1 18:57 No provider procedures requiring assistance completed. Patient admitted, IV remains in ll1 place. Administered Medications: 13:29 Drug: NS 0.9% IV 500 ml 500 ml IV at 1 bolus once; to be given as a bolus over 30 ll1 minutes Volume: 500 ml; Route: IV; Rate: 1 bolus; Site: right antecubital; 15:39 Follow up: Response: No adverse reaction; IV Status: Completed infusion; IV Intake: ll1 500ml 13:30 Drug: Magnesium Sulfate IVPB 1 grams IVPB once over 1 hrs Route: IVPB; Infused Over: 1 ll1 hrs; Site: right antecubital; 14:30 Follow up: IV Status: Completed infusion rs5 13:30 Drug: Metoprolol PO 25 mg PO once Route: PO; ll1 15:40 Follow up: Response: No adverse reaction ll1 13:35 Drug: Metoprolol IVP 5 mg IVP every 5 minutes; Hold for SBP < 100 or HR < 60. x3 Route: rs5 IVP; Site: right antecubital; 13:40 Drug: Metoprolol IVP 5 mg IVP every 5 minutes; Hold for SBP < 100 or HR < 60. x3 Route: rs5 IVP; Site: right antecubital; 13:45 Drug: Metoprolol IVP 5 mg IVP every 5 minutes; Hold for SBP < 100 or HR < 60. x3 Route: rs5 IVP; Site: right antecubital; 15:40 Follow up: Response: No adverse reaction ll1 14:10 Drug: Metoprolol PO 25 mg PO once Route: PO; ll1 15:40 Follow up: Response: No adverse reaction ll1 14:12 Drug: Ondansetron IVP 4 mg IVP once; over 2 minutes Route: IVP; Site: right antecubital;ll1 15:39 Follow up: Response: No adverse reaction ll1 17:52 Drug: amiodarone IVPB 150 mg 100 ml IVPB once over 10 mins; (mix in D5W) Volume: 100 ll1 ml; Route: IVPB; Infused Over: 10 mins; Site: right antecubital; 17:59 Follow up: Response: No adverse reaction; IV Status: Completed infusion; IV Intake: ll1 100ml 17:56 Drug: Piperacillin-Tazobactam IVPB 3.375 grams IVPB once over 60 mins; (mix in NS 100 ll1 mL) Route: IVPB; Infused Over: 60 mins; Site: left forearm; 17:59 Drug: amiodarone IVPB 900 mg, D5W IV 500 ml IVPB at 1 mg/min continuous; for 6 hrs, ll1 then change to 0.5 mg/min Route: IVPB; Rate: 1 mg/min; Site: right antecubital; Medication: 13:31 VIS not applicable for this client. ll1 Intake: 15:39 IV: 500ml; Total: 500ml. ll1 17:59 IV: 100ml; Total: 600ml. ll1 Outcome: 17:16 Decision to Hospitalize by Provider. rn 18:57 Admitted to Med/surg accompanied by tech, via stretcher, room 415, with chart, Report ll1 called to Report faxed to 18:57 Condition: stable 18:57 Instructed on the need for admit, 19:09 Patient left the ED. bm8 Signatures: Dispatcher [employer] EDMS Rj Montilla MD MD rn Moreno, Amanda am2 Vannessa Cohen RN RN ll1 Emilie Ortiz RN RN db Candido Sims RN RN rs5 Randy Albarran RN RN bm8 Helena Estrada cc6 Corrections: (The following items were deleted from the chart) 13:50 13:44 BP 145 / 98; Pulse 137bpm; Resp 17bpm; Pulse Ox 97%; rs5 rs5
--- NOTE | 2024-10-05 17:16 | EDPHYS ---
Physician Documentation [facility] Name: Misa Claros Age: 74 yrs Sex: Female : 1950 Arrival Date: 10/05/2024 Time: 12:15 Bed 8 Private MD: Mateo Chavez V ED Physician Rj Montilla HPI: 10/05 17:06 This 74 yrs old Black Female presents to ER via Wheelchair with complaints of Abdominal rn Pain, Nausea/Vomiting/Diarrhea. 17:06 The patient presents to the emergency department with nausea, vomiting. Onset: The rn symptoms/episode began/occurred 2 day(s) ago. Possible causes: unknown. The symptoms are aggravated by nothing. The symptoms are alleviated by nothing. Severity of symptoms: At their worst the symptoms were moderate in the emergency department the symptoms are unchanged. The patient has experienced similar episodes in the past. Patient reports discharged last week from [facility] for a colitis, E. coli. Was getting better and feeling well after discharge and then restarted chemotherapy treatment. Once restarted chemotherapy started to experience nausea and vomiting. No blood in emesis or stool. Also reports palpitations and heart racing, no chest pain.. Historical: - Allergies: 12:37 Codeine; db 12:37 Iodine; db 12:37 Morphine; db - PMHx: 12:37 Atrial fibrillation; Back pain; Hypertension; sciatica; uterine cancer; diagnosed a db year ago; - PSHx: 12:37 Total abdominal hysterectomy; db - Immunization history:: Adult Immunizations unknown. - Infectious Disease History:: Denies. - Social history:: Smoking status: Patient denies any tobacco usage or history of. - Family history:: not pertinent. - Hospitalizations: : Patient was recently seen at. ROS: 17:06 Constitutional: Negative for fever, chills, and weight loss, Cardiovascular: Positive rn for palpitations, negative for chest pain Respiratory: Negative for shortness of breath, cough, wheezing, and pleuritic chest pain, Abdomen/GI: Positive for nausea and vomiting with abdominal cramping MS/Extremity: Negative for injury and deformity, Neuro: Positive for generalized weakness Exam: 17:08 Constitutional: This is a well developed, well nourished patient who is awake, alert, rn and in no acute distress. ENT: Dry mucous membranes Cardiovascular: Tachycardic, irregular Respiratory: No increased work of breathing, no retractions or nasal flaring. Abdomen/GI: Soft, non-tender, nondistended 18:12 ECG was reviewed by the Attending Physician. rn Vital Signs: 12:36 BP 138 / 105; Pulse 125; Resp 18; Temp 97.6(O); Pulse Ox 96% ; Weight 88.9 kg; Height 5 db ft. 2 in. ; 13:19 Pulse 140; Pulse Ox 100% on R/A; ll1 13:30 BP 153 / 115; Pulse 140; ll1 13:35 BP 145 / 98; Pulse 137; Resp 17; Pulse Ox 97% ; rs5 13:42 BP 130 / 99; Pulse 120; Resp 18; Pulse Ox 98% on R/A; rs5 13:47 BP 143 / 106; Pulse 122; Resp 18; Pulse Ox 99% ; rs5 14:01 BP 136 / 98; Pulse 123; Pulse Ox 100% ; ll1 14:30 BP 140 / 86; Pulse 122; Resp 16 S; Pulse Ox 99% on R/A; rs5 15:40 BP 142 / 94; Pulse 125; Resp 16; Pulse Ox 100% on R/A; ll1 17:00 BP 152 / 82; Pulse 118; Resp 17; Pulse Ox 100% on R/A; ll1 17:12 BP 131 / 106; Pulse 123; Resp 16; Pulse Ox 100% on R/A; ll1 17:59 BP 147 / 100; Pulse 102; Resp 16; Pulse Ox 100% on R/A; ll1 18:56 BP 132 / 101; Pulse 93; Resp 16; Pulse Ox 100% on R/A; ll1 12:36 Body Mass Index 35.85 (88.90 kg, 157.48 cm) db MDM: 12:20 Medical Screening Exam initiated rn 17:12 Differential diagnosis: Nonspecific abd pain, diverticulitis, viral gastroenteritis, rn gastroenteritis, Colitis, progression of cancer, A-fib with RVR, dehydration, adverse effect of chemotherapy agents. Data reviewed: vital signs, nurses notes, lab test result(s), EKG, radiologic studies, CT scan, and as a result, I will admit patient. Consideration of Admission/Observation Patient was admitted/placed on observation. Escalation of care including admission/observation considered. Management of patient was discussed with the following: Community Planning Technician: Discussed case with Dr. Rodriguez, states to give her a little bit more time if still in A-fib can try amiodarone given she has not responded to 3 IV doses of Lopressor as well as p.o. metoprolol.. Primary Care Provider: Discussed case with Dr. Chavez, will admit for A-fib with RVR and acute on chronic renal failure. Care significantly affected by the following chronic conditions: Chronic Kidney Disease, Atrial fibrillation. Counseling: I had a detailed discussion with the patient and/or guardian regarding the historical points, exam findings, and any diagnostic results supporting the discharge/admit diagnosis, lab results, radiology results, the need for further work-up and treatment in the hospital. Response to treatment: the patient's symptoms have mildly improved after treatment, and as a result, I will admit patient. ED course: I personally spent 35 minutes engaged in work directly related to the individual patient's care. This does not include any time spent performing procedures. The patient has been deemed critically ill because of persistent atrial fibrillation with rapid ventricular rate requiring IV rate control, will likely need amiodarone infusion as well as organization of admission to hospital with multiple consultations. 18:12 ED course: Heart rate responded to amiodarone, heart rate currently 97 bpm.. rn 10/05 12:21 Order name: CBC with Diff rn 10/05 12:21 Order name: CMP; Complete Time: 13:55 rn 10/05 12:21 Order name: Lipase; Complete Time: 13:55 rn 10/05 12:21 Order name: Urinalysis w/ reflexes; Complete Time: 16:24 rn 10/05 12:21 Order name: Flu; Complete Time: 13:55 rn 10/05 12:21 Order name: SARS-COV-2 Antigen Rapid; Complete Time: 13:55 rn 10/05 16:20 Order name: Urine Culture EDMS 10/05 17:17 Order name: Blood Culture Adult (2) rn 10/05 17:17 Order name: Lactate w/ 2H reflex if indic. rn 10/05 17:17 Order name: Protime (+inr) rn 10/05 17:17 Order name: Ptt, Activated rn 10/05 18:56 Order name: Manual Differential EDTN 10/05 12:48 Order name: CT Abd/Pelvis - Without Contrast; Complete Time: 15:08 rn 10/05 12:48 Order name: EKG; Complete Time: 12:48 rn 10/05 18:06 Order name: CONS Physician Consult EDTN 10/05 12:21 Order name: IV Saline Lock; Complete Time: 12:48 rn 10/05 12:21 Order name: Labs collected and sent; Complete Time: 12:48 rn 10/05 12:48 Order name: EKG - Nurse/Tech; Complete Time: 14:10 rn 10/05 17:17 Order name: Cardiac monitoring; Complete Time: 17:18 rn 10/05 17:17 Order name: O2 Per Protocol; Complete Time: 17:18 rn 10/05 17:17 Order name: O2 Sat Monitoring; Complete Time: 17:18 rn EC:12 Rate is 136 beats/min. Rhythm is irregularly irregular. QRS interval is normal. QT rn interval is normal. No Q waves. T waves are Normal. No ST changes noted. Clinical impression: Atrial Fibrillation. Interpreted by me. Reviewed by me. Administered Medications: 13:29 Drug: NS 0.9% IV 500 ml 500 ml IV at 1 bolus once; to be given as a bolus over 30 ll1 minutes Volume: 500 ml; Route: IV; Rate: 1 bolus; Site: right antecubital; 15:39 Follow up: Response: No adverse reaction; IV Status: Completed infusion; IV Intake: ll1 500ml 13:30 Drug: Magnesium Sulfate IVPB 1 grams IVPB once over 1 hrs Route: IVPB; Infused Over: 1 ll1 hrs; Site: right antecubital; 14:30 Follow up: IV Status: Completed infusion rs5 13:30 Drug: Metoprolol PO 25 mg PO once Route: PO; ll1 15:40 Follow up: Response: No adverse reaction ll1 13:35 Drug: Metoprolol IVP 5 mg IVP every 5 minutes; Hold for SBP < 100 or HR < 60. x3 Route: rs5 IVP; Site: right antecubital; 13:40 Drug: Metoprolol IVP 5 mg IVP every 5 minutes; Hold for SBP < 100 or HR < 60. x3 Route: rs5 IVP; Site: right antecubital; 13:45 Drug: Metoprolol IVP 5 mg IVP every 5 minutes; Hold for SBP < 100 or HR < 60. x3 Route: rs5 IVP; Site: right antecubital; 15:40 Follow up: Response: No adverse reaction ll1 14:10 Drug: Metoprolol PO 25 mg PO once Route: PO; ll1 15:40 Follow up: Response: No adverse reaction ll1 14:12 Drug: Ondansetron IVP 4 mg IVP once; over 2 minutes Route: IVP; Site: right antecubital;ll1 15:39 Follow up: Response: No adverse reaction ll1 17:52 Drug: amiodarone IVPB 150 mg 100 ml IVPB once over 10 mins; (mix in D5W) Volume: 100 ll1 ml; Route: IVPB; Infused Over: 10 mins; Site: right antecubital; 17:59 Follow up: Response: No adverse reaction; IV Status: Completed infusion; IV Intake: ll1 100ml 17:56 Drug: Piperacillin-Tazobactam IVPB 3.375 grams IVPB once over 60 mins; (mix in NS 100 ll1 mL) Route: IVPB; Infused Over: 60 mins; Site: left forearm; 17:59 Drug: amiodarone IVPB 900 mg, D5W IV 500 ml IVPB at 1 mg/min continuous; for 6 hrs, ll1 then change to 0.5 mg/min Route: IVPB; Rate: 1 mg/min; Site: right antecubital; Disposition Summary: 10/05/24 17:16 Hospitalization Ordered Notes: Hospitalization Status: Inpatient Admission rn Provider: Mateo Chavez rn Location: Telemetry/[facility] (Inpatient) rn Condition: Stable rn Problem: new rn Symptoms: have improved rn Bed/Room Type: Standard rn Room Assignment: 410(10/05/24 18:19) sp Diagnosis - Persistent atrial fibrillation rn - Acute kidney failure, unspecified rn - Muscle weakness (generalized) rn Forms: - Medication Reconciliation Form rn - SBAR form rn - Leadership Thank You Letter internet sales associate time excluding procedures: 17:12 Critical care time: Bedside Care: 25 minutes, Consultation: 10 minutes. Total time: 35 rn minutes Signatures: Dispatcher [employer] EDJud Kumar Roman, MD MD rn Lewis, Lynsay, RN RN ll1 Emilie Ortiz RN RN db Candido Sims RN RN rs5 Corrections: (The following items were deleted from the chart) 12: 12:21 CBC+H.LAB.BRZ ordered. EDMS EDMS 12: 12:21 COMPREHENSIVE METABOLIC PANEL+C.LAB.BRZ ordered. EDMS EDMS 12: 12:21 LIPASE+C.LAB.BRZ ordered. EDMS EDMS 12:21 12:21 Urinalysis+U.LAB.BRZ ordered. EDMS EDMS 12: 12:21 Abdomen Pelvis W Con+CT.RAD.BRZ ordered. EDMS EDMS 12:22 12:22 Influenza Screen (A \T\ B)+BA.LAB.BRZ ordered. EDMS EDMS 12: 12:22 SARS-COV-2 Antigen Rapid+I.LAB.BRZ ordered. EDMS EDMS 18:19 17:16 rn sp 18:49 17:17 Accucheck ordered. alan ll1
[2024-10-05] MEDS ORDERED: AMIODARONE HCL 150 MG/3 ML INJ IV ONE (17:37)
[2024-10-05] MEDS ORDERED: PIPERACIL/TAZO 3.375 GM VIAL IV ONE (17:37)
[2024-10-05] MEDS ORDERED: NA CHLORIDE 0.9% 100 ML ONE (17:37)
[2024-10-05] MEDS ORDERED: AMIODARONE IN DEXTROSE,ISO-OSM 360 MG/200 ML BAG IV ONE (17:37)
[2024-10-05] MEDS ORDERED: D5W 100 ML IV ONE (17:38)
[2024-10-05 18:07] LABS: PT Prothrombin Time 20.7 SECONDS (9.4-12.5); Protime INR 1.88
[2024-10-05 18:52] LABS: Differential Total Cells Count 100; Segmented Neutrophils 81 % (40-80)
[2024-10-05 18:53] LABS: Blood Morphology Comment NOT SEEN (NOT SEEN); Lymphocytes 15 % (15-42); Monocytes 2 % (0-10); Platelet Estimate ADEQ; Polychromasia 1+
--- NOTE | 2024-10-05 19:10 | P.HP ---
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 SHE WAS GIVEN CHEMO ABOUT 2 YEARS AGO AFTER HYSTERECTOMY AND HAD REMISSION UNTIL NOW WHEN PAIN HAS RECURRED AND SHE HAS TWO PELVIC MASSES ONE 6-5 AND ANOTHER 4-5 BOTH ON L SIDE. ONE IS PERFORATING THE COLON ALSO WITH LOCULATED AIR COLLECTION. SHE IS HERE TWO DAYS AFTER [facility] DISCHARGED HER WITH PAIN AND RAPID A FIB. Allergies codeine [Codeine] Allergy (Intermediate, Verified 08/01/23 08:49) VOMITING morphine Allergy (Verified 08/01/23 08:49) Nausea/Vomiting Home medications list reviewed: Yes Home Medications: Pravastatin Sodium 20 mg PO BEDTIME 12/23/20 Metoprolol Tartrate [Lopressor*] 25 mg PO BID 12/02/21 Apixaban [Eliquis] 5 mg PO BID #60 tablet 12/05/21 Sacubitril/Valsartan [Entresto 24 mg-26 mg Tablet] 1 tab PO BID #60 tab 12/05/21 Spironolactone [Aldactone] 50 mg PO DAILY #90 tablet 12/05/21 Famotidine [Pepcid*] 20 mg PO BID 07/17/23 Tramadol HCl [Ultram] 50 mg PO Q8H 07/17/23 dexAMETHasone [Dexamethasone] 4 mg PO BID 07/17/23 methocarbamoL [Methocarbamol] 750 mg PO TID PRN 07/17/23 Hydrocodone 7.5/APAP 325 [[place] 7.5/325 mg*] 1 tab PO Q4H PRN tab 08/02/23 - Past Medical/Surgical History Diabetic: No -: Macular Degenerative -: Uterine cancer -: HTN -: AFIb -: CAD -: CVA -: HYSTERECTOMY -: CHOLECYSTECTOMY -: Abcess removal - Family History Mother -: Heart disease Notes: heart attack Father -: Heart disease Notes: heart attack - Social History Alcohol use: No CD- Drugs: No Caffeine use: Yes Review of Systems 10-point ROS is otherwise unremarkable General: Weakness Physical Examination - Physical Exam General: Acute distress, Moderate distress, Obese HEENT: Atraumatic, PERRLA, Mucous membr. moist/pink, EOMI, Sclerae nonicteric Neck: Supple, 2+ carotid pulse no bruit, No LAD, Without JVD or thyroid abnormality Respiratory: Clear to auscultation bilaterally, Normal air movement Cardiovascular: Irregular heart rate/rhythm Gastrointestinal: Normal bowel sounds, Non-distended, Tenderness Musculoskeletal: No tenderness Integumentary: No rashes Neurological: Normal gait, Normal speech, Normal strength at 5/5 x4 extr, Normal tone, Normal affect Lymphatics: No axilla or inguinal lymphadenopathy - Studies Laboratory Data (last 24 hrs) 10/05/24 10/05/24 10/05/24 17:10 12:50 12:50 WBC 10.50 Hgb 10.7 L Hct 32.2 L Plt Count 310 PT 20.7 H INR 1.88 APTT 36.0 Sodium 135 L Potassium 4.9 BUN 29 H Creatinine 2.48 H Glucose 109 H Total Bilirubin 1.3 H AST 40 H ALT 21 Alkaline Phosphatase 120 H Lipase 9 L Microbiology Data (last 24 hrs): 10/05/24 12:50 Nasopharnyx Influenza Type A Antigen Screen - Final 10/05/24 12:50 Nasopharnyx Influenza Type B Antigen Screen - Final Assessment and Plan - Problems (Diagnosis) (1) Rapid atrial fibrillation Current Visit: Yes Status: Acute Plan: AMIODARONE HAS WORKED TO REDUCE THE HR FROM 140 TO 90S. SHE HAS HAD CAD, DILATED CARDIOMYOPAHTY FROM CAD AND THAT IS STABLE. 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 SHE IS ON TWO NEW DRUGS FROM [facility]. ONE IS [employer]. SHE IS NOT TOLERATING THEM. SHE HAS NAUSEA AND VOMITING. HER CANCER IS ADVANCING. I PRESUME SHE IS A GOOD HOSPICE CANDIDATE. I HAVE ASKED THE FAMILY TO BRING ME THE CONTACT NUMBER FOR HER ONCOLOGIST. SHE NEEDS TO KNOW ABOUT HOSPICE IF THEY CAN'T DO MUCH FRUITFUL FOR HER. PROGNOSIS POOR SHE SHOULD HAVE DNR STATUS. - Advance Directives Does patient have a Living Will: Yes Does patient have a Durable POA for Healthcare: Yes
[2024-10-05] MEDS ORDERED: AMIODARONE HCL 900 MG in Dextrose 5%-Water 482 ML IV SCH (19:34)
[2024-10-05] MEDS: ONDANSETRON 4 MG/2 ML VIAL IV PRN (21:51)
[2024-10-06] MEDS: AMIODARONE IN DEXTROSE,ISO-OSM 360 MG/200 ML BAG IV ONE (06:26)
[2024-10-06 06:29] LABS: Absolute Lymphocytes (CBC) 1.1 K/uL (0.7-4.9); Absolute Monocytes 0.6 K/uL (0.1-1.3); Absolute Neutrophil 9.8 K/uL (1.8-8.0); Basophils % 0.2 % (0-1.3); Eosinophils % 0.1 % (0-4.4); Hematocrit 32.5 % (36.0-45.0); Hemoglobin 10.8 g/dL (12.0-15.0); Lymphocytes % 9.2 % (15.3-44.8); MCH 30.7 pg (27.0-35.0); MCHC 33.3 g/dL (32.0-36.0); MPV 7.9 fL (7.6-11.3); Monocytes % 5.5 % (3.3-12.3); Nucleated RBC Absolute Count 0.2 (0-0); Nucleated Red Blood Cells % 1.4 % (0-0); Platelets 293 thou/uL (152-406); RBC Red Blood Cell Count 3.54 M/uL (3.86-4.86); Red Cell Distribution Width 15.5 % (12.1-15.2)
[2024-10-06 06:53] LABS: Anion Gap 15.7 mEq/L (5.0-15.0); Potassium 4.7 mEq/L (3.5-5.1); Troponin High Sensitivity 27.9 pg/mL (<58.9)
[2024-10-06] MEDS: PNEUMOCOCCAL VACCINE 0.5 ML IMVAC ONE (08:00)
[2024-10-06] MEDS: FLU (Fluarix Triv) TS24-25(6MOS UP)/PF 45 MCG/0.5 ML Syringe IM ONE (08:00)
[2024-10-06] MEDS ORDERED: methocarbamoL 750 MG TAB PO PRN (08:05)
[2024-10-06] MEDS ORDERED: HYDROCODONE/APAP 7.5/325 MG TAB PO PRN (08:05)
[2024-10-06] MEDS: SPIRONOLACTONE 25 MG TABLET PO SCH (09:18)
[2024-10-06] MEDS: METOPROLOL TAR 25 MG TAB PO SCH (09:19)
[2024-10-06] MEDS: TRAMADOL HCL 50 MG TAB PO SCH (09:19)
[2024-10-06] MEDS: APIXABAN 5 MG TABLET PO SCH (09:19)
[2024-10-06] MEDS: FAMOTIDINE 20 MG TAB PO SCH (09:19)
[2024-10-06] MEDS: SACUBITRIL/VALSARTAN 24/26 MG TAB PO SCH (09:20)
[2024-10-06] MEDS: AMIODARONE HCL 900 MG in Dextrose 5%-Water 482 ML IV SCH (17:03)
--- NOTE | 2024-10-06 17:31 | P.PN ---
Subjective Date of Service: 10/06/24 Chief Complaint: ABDOMEN PAIN, WEAKNESS, RAPID A FIB Subjective: Worsening SHE HAS ADVAANCED CANCER AND IS GETTING CHEMO AND IMMUNOTHERAPY THAT IS NOT WORKING ANY LONGER. A FIB IS STABLE. Review of Systems 10-point ROS is otherwise unremarkable General: Weakness, As per HPI Physical Examination - Vital Signs Temperature: 97.5 F Blood Pressure: 150/108 Pulse: 97 Respirations: 18 Pulse Ox (%): 96 - Physical Exam General: Moderate distress, Obese HEENT: Atraumatic, PERRLA, EOMI Neck: Supple, JVD not distended Respiratory: Clear to auscultation bilaterally, Normal air movement Cardiovascular: Regular rate/rhythm, Normal S1 S2 Gastrointestinal: Tenderness (DIFFUSE MOD.) Musculoskeletal: No tenderness Integumentary: No rashes Neurological: Normal speech, Normal tone, Normal affect Lymphatics: No axilla or inguinal lymphadenopathy - Studies Laboratory Data (last 24 hrs) 10/05/24 10/05/24 17:10 12:50 WBC 10.50 Hgb 10.7 L Hct 32.2 L Plt Count 310 PT 20.7 H INR 1.88 APTT 36.0 Microbiology Data (last 24 hrs): 10/05/24 12:50 Nasopharnyx Influenza Type A Antigen Screen - Final 10/05/24 12:50 Nasopharnyx Influenza Type B Antigen Screen - Final Medications List Reviewed: Yes Assessment And Plan - Current Problems (Diagnosis) (1) Rapid atrial fibrillation Current Visit: Yes Status: Acute Plan: AMIODARONE HAS WORKED TO REDUCE THE HR FROM 140 TO 90S. SHE HAS HAD CAD, DILATED CARDIOMYOPAHTY FROM CAD AND THAT IS STABLE. 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 SHE IS ON TWO NEW DRUGS FROM [facility]. ONE IS [employer]. SHE IS NOT TOLERATING THEM. SHE HAS NAUSEA AND VOMITING. HER CANCER IS ADVANCING. I PRESUME SHE IS A GOOD HOSPICE CANDIDATE. I HAVE ASKED THE FAMILY TO BRING ME THE CONTACT NUMBER FOR HER ONCOLOGIST. SHE NEEDS TO KNOW ABOUT HOSPICE IF THEY CAN'T DO MUCH FRUITFUL FOR HER. PROGNOSIS POOR SHE SHOULD HAVE DNR STATUS. I CALLED AND TALKED TO DR. GRANT, HER ONCOLOGIST. HE AGREES WITH ME THAT NO THERAPY IS WORKING AND IT IS TIME FOR HOSPICE CARE I WILL DISCUSS WITH HER TOMORROW. HE UNDERSTANDING OF THE THERAPY IS VERY LIMITED.
--- NOTE | 2024-10-07 13:31 | P.DS ---
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 SHE WAS GIVEN CHEMO ABOUT 2 YEARS AGO AFTER HYSTERECTOMY AND HAD REMISSION UNTIL NOW WHEN PAIN HAS RECURRED AND SHE HAS TWO PELVIC MASSES ONE 6-5 AND ANOTHER 4-5 BOTH ON L SIDE. ONE IS PERFORATING THE COLON ALSO WITH LOCULATED AIR COLLECTION. SHE IS HERE TWO DAYS AFTER [facility] DISCHARGED HER WITH PAIN AND RAPID A FIB. Hospital Course: YARIEL HAS STAGE 4 UTERINE CANCER. [facility] HAS DONE ALL THEY CAN. I TALKED TO HER NURSERY RN ONCOLOGIST AND HE ALSO AGREES THAT IT IS TIME FOR HOSPICE. I EXPLAINED TO HER. SHE IS STABLE TO GO HOME AND WILL GET ON HOSPICE FROM TOMORROW. SHE, I AM SURE WILL DISCUSS WITH HER FAMILY BEFORE DECISION MAKING. I CALLED IN HER AMIODARONE BID FOR NOW. Vital Signs/Physical Exam: Temp Pulse Resp BP Pulse Ox 97.6 F 90 18 106/77 97 10/07/24 08:00 10/07/24 09:13 10/07/24 08:00 10/07/24 09:13 10/07/24 08:00 Laboratory Data at Discharge: WBC 11.50 thou/uL (4.3-10.9) H 10/06/24 05:36 Hgb 10.8 g/dL (12.0-15.0) L 10/06/24 05:36 Hct 32.5 % (36.0-45.0) L 10/06/24 05:36 Plt Count 293 thou/uL (152-406) 10/06/24 05:36 PT 20.7 SECONDS (9.4-12.5) H 10/05/24 17:10 INR 1.88 10/05/24 17:10 APTT 36.0 SECONDS (24.3-36.9) 10/05/24 17:10 Sodium 136 mEq/L (136-145) 10/06/24 05:36 Potassium 4.7 mEq/L (3.5-5.1) 10/06/24 05:36 BUN 32 mg/dL (7-18) H 10/06/24 05:36 Creatinine 2.54 mg/dL (0.55-1.02) H 10/06/24 05:36 Glucose 111 mg/dL (74-106) H 10/06/24 05:36 Total Bilirubin 1.3 mg/dL (0.2-1.0) H 10/05/24 12:50 AST 40 U/L (15-37) H 10/05/24 12:50 ALT 21 U/L (13-56) 10/05/24 12:50 Alkaline Phosphatase 120 U/L (45-117) H 10/05/24 12:50 Lipase 9 U/L (13-75) L 10/05/24 12:50 Home Medications: Metoprolol Tartrate [Lopressor*] 25 mg PO BID 12/02/21 Apixaban [Eliquis] 5 mg PO BID #60 tablet 12/05/21 Sacubitril/Valsartan [Entresto 24 mg-26 mg Tablet] 1 tab PO BID #60 tab 12/05/21 Spironolactone [Aldactone] 50 mg PO DAILY #90 tablet 12/05/21 Famotidine [Pepcid*] 20 mg PO BID 07/17/23 Tramadol HCl [Ultram] 50 mg PO Q8H 07/17/23 methocarbamoL [Methocarbamol] 750 mg PO TID PRN 07/17/23 Hydrocodone 7.5/APAP 325 [[place] 7.5/325 mg*] 1 tab PO Q4H PRN tab 08/02/23 Followup: Mateo Chavez MD [Primary Care Provider] -
[2024-10-07 16:13] VITALS: BP 106/77; TEMP 97.6; O2SAT 100; BMI 35.8
[2024-10-07] MEDS ORDERED: AMIODARONE HCL 200 MG TAB PO SCH (21:00)
--- NOTE | 2024-10-09 12:11 | EKG ---
Test Date: 2024-10-05 Test Time: 13:02:34 Manager Diabetes: ALIDA MEASUREMENT RESULTS: Intervals: Rate: 136 PA: QRSD: 86 QT: 264 QTc: 397 [place]: P: PA: QRS: 93 T: 223 INTERPRETIVE STATEMENTS: Atrial fibrillation Nonspecific ST and T wave abnormality, probably digitalis effect Abnormal ECG Compared to ECG 09/18/2024 17:35:09 Possible ischemia no longer present ST (T wave) deviation still present Electronically Signed On 10-09-24 12:08:44 STAIR BUILDER by Mark Rodriguez
== END 2024-10-07 13:28 | disposition home or self-care (01) | DRG 309 ==
LOC: ER 12:15 → ERHOLD 18:03 → 4TH 18:39
PROVIDERS: ADMIT Internal Medicine; ATTEND Internal Medicine
DX: I48.21 Permanent atrial fibrillation (principal); N17.9 Acute kidney failure, unspecified; Z79.01 Long term (current) use of anticoagulants; I25.10 Atherosclerotic heart disease of native coronary artery without angina pectoris; I10 Essential (primary) hypertension; Z80.49 Family history of malignant neoplasm of other genital organs; Z90.710 Acquired absence of both cervix and uterus; Z92.21 Personal history of antineoplastic chemotherapy; Z86.73 Personal history of transient ischemic attack (TIA), and cerebral infarction without residual deficits; E66.9 Obesity, unspecified; Z68.35 Body mass index [BMI] 35.0-35.9, adult; Z71.3 Dietary counseling and surveillance; Z90.49 Acquired absence of other specified parts of digestive tract
CPT/HCPCS: 36415; 74176; 80048; 80053; 81001; 83605; 83690; 84484; 85025; 85610; 85730; 87040; 87086; 87088; 87804; 87811; 93005; 99285; J0282; J2405; J2543; J3475; J7040; J7060